=== PATIENT | male | born 1965 | race Caucasian/White ===

== ENCOUNTER 2023-09-04 07:12 | Emergency (ER) | payer MEDICARE, MEDICAID, SELFPAY ==
[2023-09-04 07:14] VITALS: BP 162/119; PULSE 88; RESP 20; TEMP 35.5; O2SAT 95; BMI 42.3
--- NOTE | 2023-09-04 07:26 | EKG12_ITS ---
Test Reason : HIGH SUGAR Blood Pressure : / mmHG Vent. Rate : 085 BPM Atrial Rate : 085 BPM P-R Int : 218 ms QRS Dur : 156 ms QT Int : 416 ms P-R-T Axes : 039 125 021 degrees QTc Int : 495 ms Sinus rhythm with 1st degree A-V block Left bundle branch block Abnormal ECG Confirmed by KUMAR ALONSO, AL ([id number]), purchase request editor HOMA CUEVA ([id number]) on 09/07/2023 1:32:41 P M Referred By: Confirmed By:ERIBERTO HEATH MD
--- NOTE | 2023-09-04 07:27 | EX.ED.DYSGE1 ---
HPI History of Present Illness Chief Complaint: Hyperglycemia Narrative Narrative: 58-year-old male past medical history hypertension, states no one told me I was diabetic presents with elevated blood sugars for the last few weeks to months. He states that he was seen by his primary care provider at [facility] in the internal medicine center, and was supposed to be starting metformin. Over the last few months he is experienced blurry vision, urinary frequency, and he took his blood sugars which were elevated over 500 yesterday and over 400 this morning without eating. He states he started to take his metformin 500 mg within the last week. He is concerned regarding the elevated blood sugars. Denies any fevers or chills, no nausea or vomiting, no other symptoms. This is with exception of upper respiratory infection type symptoms that has had over the last week, and is on doxycycline for this. He did state that over the last few days because he thought he was getting sick, he drank orange juice and large amounts. PFSH PFSH Home Medications aspirin 325 mg tablet 325 mg PO DAILY@0800 10/15/14 [History Last Taken Unknown] levothyroxine 125 mcg tablet 125 mcg PO DAILY 10/15/14 [History Last Taken Unknown] metoprolol tartrate 50 mg tablet 50 mg PO DAILY 10/15/14 [History Last Taken Unknown] doxycycline hyclate 100 mg capsule 100 mg PO BID ##28 01/12/17 [Rx Last Taken Unknown] Allergy/AdvReac Type Severity Reaction Status Date / Time Sulfa (Sulfonamide Allergy Swelling Verified 09/04/23 07:13 Antibiotics) sulfamethoxazole Allergy Swelling Verified 09/04/23 07:13 [From Bactrim] trimethoprim [From Bactrim] Allergy Swelling Verified 09/04/23 07:13 Social History Smoking Status: Current every day smoker tobacco type: cigarettes ROS ROS ED ROS Narrative Constitutional: No fever, no chills. Elevated blood sugars. HEENT: No sore throat. No neck pain. No loss of vision. Positive blurry vision. No rhinorrhea. Cardiovascular: No chest pain. No palpitations. No pedal edema. Respiratory: No cough, no shortness of breath. Abdominal: No abdominal pain. No nausea. No vomiting. Genitourinary: No dysuria. No hematuria. Ported microscopic hematuria from urgent care. Positive urinary frequency. Musculoskeletal: No myalgias. No arthralgias. Neurologic: No headaches. No dizziness. No lightheadedness. Skin: No rash. No change in color. Psychiatric: No depression. No anxiety. EXAM Physical Exam Narrative Exam Narrative: Afebrile. Vital signs noted. HEENT: Normocephalic. Atraumatic. PERRL, EOMI. Neck soft and supple. No point tenderness or step off. Cardiovascular: Regular rate and rhythm. No murmurs, rubs, or gallops appreciated. Respiratory: No tachypnea. Lungs clear to auscultation bilaterally. Gastrointestinal: Abdomen soft, pes, nontender, with normoactive bowel sounds. No rebound or guarding. Neurological: Awake. Alert. Nonfocal, nonlateralizing. Skin: No rash. Normal color. No pallor. Musculoskeletal: No pedal edema. Full range of motion extremities. Const Vital Signs: 09/04/23 07:14 09/04/23 07:50 Temperature 96 F L Temperature Source Temporal Pulse Rate 88 Respiratory Rate 20 H Respiratory Pattern Normal Blood Pressure 162/119 H Blood Pressure Mean 133 Pulse Ox 95 Oxygen Delivery Method Room Air MDM MDM MDM Narrative Medical decision making narrative: In the reported elevated blood sugar, concern would be for diabetic hyperglycemia, HON K, diabetic ketoacidosis. Patient did relate history that he states that he had cold-like symptoms and has been drinking a lot of orange juice and sugary sodas. Patient will be bolused 2 L of normal saline intravenously after BGT checked. I will obtain a CBC, CMP, and acetone levels to help rule out diabetic ketoacidosis. He is currently not tachycardic. He was told not to drink juices and sodas and that he will require follow-up with his primary care provider. He may need to increase his metformin, but already he has shown noncompliance with medication regime as he states that his medications were prescribed months ago. I reviewed his laboratory work and he has normal white count 7.8, hemoglobin normal at 16.2 with hematocrit 46.1, platelet count normal at 226. His sodium is low at 131 with chloride 95, he was bolused 2 L. However I do feel that his sodium may be lowered secondary to his elevated glucose on his CMP as it is elevated at 503. He has a normal anion gap of 9 so I have low concern for diabetic ketoacidosis, this is in combination with the fact that his acetone level is negative. His LFTs are grossly unremarkable. Urinalysis shows no evidence of infection so I do not feel antibiotics are indicated. There are negative ketones. There is glucose consistent with diabetes. After 2 L of normal saline, his blood sugar is now in the 370's. I do feel that with diet modification and continued metformin, that he can follow-up with his primary care provider. He states he has an appointment next week. At this point in time, I do not feel he requires admission. He was strongly encouraged to take his medications. Return instructions to the emergency department were reviewed. Disposition is discharged home in stable condition. History & Record Review Discussion w/independent historian: Patient Additional record(s) reviewed:: Prior ED visit Lab Data Attestation: I reviewed the patient's lab results. Labs: Laboratory Results - last 24 hr 09/04/23 09/04/23 07:38 07:45 WBC 7.8 RBC 5.10 Hgb 16.2 Hct 46.1 MCV 90.4 MCH 31.8 MCHC 35.1 RDW Std Deviation 37.6 RDW Coeff of Amanda 11.4 L Plt Count 226 MPV 10.7 Immature Gran % (Auto) 0.400 Neut % (Auto) 49.9 Lymph % (Auto) 34.0 Fannin % (Auto) 8.1 Eos % (Auto) 7.2 H Baso % (Auto) 0.4 Absolute Neuts (auto) 3.9 Absolute Lymphs (auto) 2.66 Nucleated RBC % 0 Sodium 131 L Potassium 4.1 Chloride 95 L Carbon Dioxide 27.0 Anion Gap 9 BUN 12 Creatinine 1.12 Estim Creat Clear Calc 67.86 Est GFR (MDRD) Af Amer 86 Est GFR (MDRD) Non-Af 71 BUN/Creatinine Ratio 10.7 Glucose 503 H* Calcium 8.9 Total Bilirubin 0.20 AST 20 ALT 38 Alkaline Phosphatase 78 Total Protein 7.0 Albumin 3.1 L Globulin 3.9 Albumin/Globulin Ratio 0.8 L Urine Color Yellow Urine Clarity Clear Urine pH 7.0 Ur Specific [place] 1.010 Urine Protein 30 H Urine Glucose (UA) 1000 H Urine Ketones Negative Urine Occult Blood 10 H Urine Nitrite Negative Urine Bilirubin Negative Urine Urobilinogen Normal Ur Leukocyte Esterase Negative Urine RBC 0 SEEN Urine WBC 0 SEEN Ur Squamous Epith Cells 0 SEEN Urine Bacteria 0 SEEN Urine Mucus 0 SEEN Acetone Level NEGATIVE Discharge Plan Triage Chief Complaint: Hyperglycemia ED Provider: Bean Kwon Dx/Rx/DC Orders Clinical Impression: Hyperglycemia, Diabetes Instructions: ED Diabetes- Overview, ED Diabetic Hyperglycemia, ED Diet: Diabetes Prescriptions: No Action aspirin 325 MG tablet 325 mg PO DAILY@0800 levothyroxine 125 MCG tablet 125 mcg PO DAILY metoprolol tartrate 50 MG tablet 50 mg PO DAILY doxycycline hyclate 100 MG capsule 100 mg PO BID Qty: 28 0RF Primary Care Provider: CARLTON COLEY Referrals: NOT,DEFINED [Non-Staff] - Activity Restrictions/Additional Instructions: Make sure you are taking your metformin 500 mg twice daily as previously directed. Follow-up with your primary care provider next week as scheduled. Disposition Disposition: Home, Self Care
[2023-09-04 07:45] LABS: Bacteria 0 SEEN /hpf (None Seen); Mucous, Urine 0 SEEN /hpf (<or=2+); Red Blood Cells-Urine 0 SEEN /hpf (0-5); Squamous Epithelial Cells - UA 0 SEEN /hpf (0-5); White Blood Cells 0 SEEN /hpf (0-5)
[2023-09-04] MEDS: 0.9% Normal Saline (1000mL) 1,000 ML 999 ML IV ×2 (07:46→08:31)
[2023-09-04 07:55] LABS: Color, Urine Yellow (Yellow); Glucose, Dipstick 1000 mg/dl (Normal); Ketone-Dipstick Negative (Negative); Leukocyte Esterase-Dipstick Negative /ul (Negative); Nitrite-Dipstick Negative (Negative); Occult Blood-Urine 10 /ul (Negative); Protein-Dipstick 30 mg/dl (Negative); Urine Bilirubin Dipstick Negative (Negative); Urine Clarity Clear (Clear); Urine Urobilinogen Normal (Normal)
[2023-09-04 08:00] LABS: Absolute Lymphocyte Count 2.66 X10^3/uL (0.83-4.51); Absolute Neutrophil Count 3.9 X10^3/uL (2.0-7.7); Basophil# 0.03 X10^3/uL; Basophil% 0.4 % (0-1); Eosinophil# 0.56 X10^3/uL; Eosinophils% 7.2 % (0-5); Hematocrit 46.1 % (40-54); Hemoglobin 16.2 g/dL (13.0-16.5); Lymphocyte # 2.66 X10^3/ul (0.83-4.51); Mean Corp Hgb Conc 35.1 g/dL (32-36); Mean Corpuscular Hgb 31.8 pg (27.0-32.0); Mean Corpuscular Volume 90.4 fL (80-94); Mean Platelet Vol. 10.7 fl (6.2-12.0); Monocyte# 0.63 X10^3/uL; Monocyte% 8.1 % (0-10); NRBC Flagged by Analyzer 0 % (0-5); Neutrophil # 3.91 X10^3/uL (2.7-7.7); Neutrophil % 49.9 % (47-70); Platelet Count 226 K/mm3 (150-450); RBC Distribution Width CV 11.4 % (11.6-14.6); RBC Distribution Width SD 37.6 fl (35.1-43.9); White Blood Count 7.8 K/mm3 (4.4-11.0)
[2023-09-04 08:16] LABS: ALB/GLOB Ratio 0.8 RATIO (0.9-2.4); AST(SGOT) 20 U/L (15-37); Alanine Aminotransfer ALT/SGPT 38 U/L (16-61); Albumin, Serum 3.1 g/dL (3.2-5.0); Alkaline Phosphatase 78 U/L (45-117); Anion Gap 9 (5-15); BUN 12 mg/dL (7-18); BUN/Creat Ratio 10.7 RATIO (10-20); Calcium,Total 8.9 mg/dL (8.5-10.1); Chloride 95 mmol/L (98-107); Creatinine, Serum 1.12 mg/dL (0.70-1.30); EST Glomerular Filtration Rate 71 mL/min (>60); Est Glom Filt Rate - Afr Amer 86 mL/min (>60); Estimated Creatinine Clearance 67.86 ml/min; Globulin 3.9 g/dL (2.2-4.2); Glucose 503 mg/dL (74-106); Potassium 4.1 mmol/L (3.5-5.1); Sodium Level 131 mmol/L (136-145)
[2023-09-04 10:02] LABS: Bedside Glucose 373 mg/dL (74-106)
== END 2023-09-04 09:51 | disposition home or self-care (01) ==
PROVIDERS: Emergency Provider Emergency Medicine; Visit Provider Emergency Medicine
DX: E11.65 Type 2 diabetes mellitus with hyperglycemia (principal); F17.210 Nicotine dependence, cigarettes, uncomplicated; I10 Essential (primary) hypertension
CPT/HCPCS: 80053; 81001; 82009; 82962; 85025; 93005; 96360; 99283; J7030; A4216

== ENCOUNTER 2024-08-31 08:35 | Emergency (ER) | payer MEDICARE, MEDICAID, SELFPAY ==
[2024-08-31] VITALS (8 sets, daily range): BP systolic 134–201; BP diastolic 76–129; PULSE 67–89; RESP 16–20; TEMP 36.6–37.2; O2SAT 89–99; BMI 43.6
--- NOTE | 2024-08-31 08:46 | EKG12_ITS ---
Test Reason : Blood Pressure : */* mmHG Vent. Rate : 79 BPM Atrial Rate : 79 BPM P-R Int : 256 ms QRS Dur : 150 ms QT Int : 426 ms P-R-T Axes : 62 14 137 degrees QTcB Int : 488 ms Sinus rhythm with 1st degree A-V block Left bundle branch block Abnormal ECG Confirmed by KUMAR ALONSO, AL ([id number]), editor book HOMA CUEVA ([id number]) on 09/07/2024 2:00:19 P M Referred By: Confirmed By: AL HEATH MD
--- NOTE | 2024-08-31 08:50 | EX.ED.DYSGE1 ---
HPI History of Present Illness Chief Complaint: Shortness of Breath Detail of Chief Complaint: Nonproductive cough, shortness of breath no better after Z-Montrell Informant: patient Onset/Context/Timing Onset: Days (August 23) Context: Sudden Onset Timing: Continuous and Waxes and wanes Quality: Dyspnea, dyspnea on exertion, nonproductive cough and wheezing Location: Respiratory Current Severity: Mild Maximum Severity: Moderate Worsened by: Activity Relieved by: Nothing Associated Symptoms Associated Symptoms: No fever or chills. And see HPI narrative Narrative Narrative: Patient is a 59-year-old male. He has history of type 2 diabetes on insulin, hypertension and hypothyroidism. He completed a course of azithromycin 2 days ago. He presents because he is no better. He is a smoker 1/2 pack/day. He has smoked for years. He states there was a 5-year period where he did not smoke. He states he was recently admitted to [facility] for congestive heart failure. He had a 4-day stay. He apparently has obstructive sleep apnea but has not gotten the machine yet. He states he is able to lie flat in bed. He sleeps with 1 pillow. He denies swelling of his feet or ankles. He denies fever, chills night sweats. He was treated at urgent care in [place]. They diagnosed him with bronchitis. His cough is nonproductive.He denies nasal congestion, postnasal drainage sore throat. He denies history of VTE. Denies leg pain, swelling discoloration. He denies pleuritic chest pain. He denies pain with breathing. He denies abdominal distention, nausea, vomiting or diarrhea. He denies dysuria, frequency, urgency or hematuria. Prior similar symptoms: Yes Recent Illness/Hospitalization: Yes [facility] Medical History (Updated 08/31/24 @ 12:[address] Terry Gould MD) Congestive heart failure (CHF) BMI greater than 40 Obstructive sleep apnea Hypertension Type 2 diabetes mellitus with insulin therapy Home Medications ?Medication ?Instructions ?Recorded ?Last Taken ?Type aspirin 325 mg tablet 325 mg PO DAILY@0800 10/15/14 Unknown History levothyroxine 125 mcg tablet 125 mcg PO DAILY 10/15/14 Unknown History metoprolol tartrate 50 mg tablet 50 mg PO DAILY 10/15/14 Unknown History doxycycline hyclate 100 mg capsule 100 mg PO BID ##28 01/12/17 Unknown Rx albuterol sulfate 90 mcg/actuation 2 puff inhalation Q4H PRN PRN 08/31/24 Unknown Rx aerosol inhaler (Ventolin HFA) Wheezing ##1 prednisone 20 mg tablet 60 mg (3 x 20 mg) PO DAILY #15 08/31/24 Unknown Rx TABLETS Allergy/AdvReac Type Severity Reaction Status Date / Time Sulfa (Sulfonamide Allergy Swelling Verified 08/31/24 08:35 Antibiotics) sulfamethoxazole (From Allergy Swelling Verified 08/31/24 08:35 Bactrim) trimethoprim (From Bactrim) Allergy Swelling Verified 08/31/24 08:35 Social History (Updated 08/31/24 @ 08:[address] Terry Gould MD) household members: none Smoking Status: Current every day smoker tobacco type: cigarettes ROS ROS ED Constitutional Constitutional ED: Denies chills, fever(s), subjective, sweats or weight loss Eyes Eyes: Denies blurry vision, change in vision or diplopia ENT ENT ED: Denies ear pain, rhinorrhea or sore throat Cardiovascular Cardiovascular: Denies chest pain, orthopnea, palpitations, paroxysmal nocturnal dyspnea or racing heartbeat Respiratory/Chest Respiratory/Chest: Reports cough, dyspnea and dyspnea on exertion; Denies orthopnea, paroxysmal nocturnal dyspnea or sputum Gastrointestinal Gastrointestinal: Denies abdominal pain, diarrhea, melena, nausea or vomiting Genitourinary Genitourinary ED: Reports other Details: Does endorse nocturia. Uncertain if he has a history of BPH. ; Denies dysuria or urinary frequency Musculoskeletal Musculoskeletal: Denies arthralgias or myalgias Integumentary Denies rash Neurologic Neurologic: Denies headache(s), paresthesias or weakness Endocrine Endocrinology: Denies cold intolerance, heat intolerance, polydipsia or polyuria Hematologic/Lymphatic Hematologic/Lymphatic: Denies systems reviewed and no addt'l complaints, except as documented EXAM Physical Exam Const Vital Signs: 08/31/24 08:36 08/31/24 08:40 08/31/24 08:55 Temperature 98.6 F Temperature Source Oral Pulse Rate 75 Pulse Rate [Lying] 67 Pulse Rate [Sitting (for 1 minute prior to obtaining)] 69 Pulse Rate [Standing (for 1 minute prior to obtaining)] 76 Respiratory Rate 20 H Respiratory Effort Normal Respiratory Depth Normal Respiratory Pattern Normal Blood Pressure 201/129 H Blood Pressure [Lying] 158/110 H Blood Pressure [Sitting (for 1 minute prior to obtaining)] 178/126 H Blood Pressure [Standing (for 1 minute prior to obtaining)] 163/104 H Blood Pressure Mean 153 Blood Pressure Mean [Lying] 126 Blood Pressure Mean [Sitting (for 1 minute prior to obtaining)] 143 Blood Pressure Mean [Standing (for 1 minute prior to obtaining)] 123 Pulse Ox 95 Oxygen Delivery Method Room Air 08/31/24 09:02 08/31/24 09:35 08/31/24 10:00 Temperature Temperature Source Pulse Rate 72 89 89 Pulse Rate [Lying] Pulse Rate [Sitting (for 1 minute prior to obtaining)] Pulse Rate [Standing (for 1 minute prior to obtaining)] Respiratory Rate 20 H 18 16 Respiratory Effort Respiratory Depth Respiratory Pattern Normal Blood Pressure 178/101 H 149/76 H Blood Pressure [Lying] Blood Pressure [Sitting (for 1 minute prior to obtaining)] Blood Pressure [Standing (for 1 minute prior to obtaining)] Blood Pressure Mean 126 100 Blood Pressure Mean [Lying] Blood Pressure Mean [Sitting (for 1 minute prior to obtaining)] Blood Pressure Mean [Standing (for 1 minute prior to obtaining)] Pulse Ox 98 98 Oxygen Delivery Method Room Air Room Air 08/31/24 11:00 08/31/24 12:00 Temperature 98.9 F Temperature Source Oral Pulse Rate 78 78 Pulse Rate [Lying] Pulse Rate [Sitting (for 1 minute prior to obtaining)] Pulse Rate [Standing (for 1 minute prior to obtaining)] Respiratory Rate 18 16 Respiratory Effort Respiratory Depth Respiratory Pattern Blood Pressure 169/78 H 134/78 H Blood Pressure [Lying] Blood Pressure [Sitting (for 1 minute prior to obtaining)] Blood Pressure [Standing (for 1 minute prior to obtaining)] Blood Pressure Mean 108 96 Blood Pressure Mean [Lying] Blood Pressure Mean [Sitting (for 1 minute prior to obtaining)] Blood Pressure Mean [Standing (for 1 minute prior to obtaining)] Pulse Ox 98 89 Oxygen Delivery Method Room Air Room Air Positive well nourished and well developed Constitutional Narrative: There is a entered the room patient was pacing. He seems slightly tachypneic. Question of audible wheezing. General Appearance ED: well developed; Negative for cyanotic, diaphoretic, NAD or pallor HEENT Reports moist mucous membranes HEENT Narrative: Head is atraumatic and normocephalic. Ears normal. Nares patent. Posterior pharynx is normal. Eyes PERRL and EOMs intact bilaterally General Eye ED: Negative for pale conjunctiva or scleral icterus Neck no lymphadenopathy, supple and no JVD Neck Narrative: Neck exam is limited due to body habitus. Chest Wall inspection of chest normal and palpation of chest normal Resp normal respiratory effort and No clear to auscultation bilaterally Resp Narrative: There is increased expiratory phase and decreased air movement noted throughout. Auscultation: wheezes expiratory wheezes and throughout Cardio regular rate, regular rhythm, S1 normal heart sound, S2 normal heart sound and no murmurs GI normal to inspection, nondistended, normoactive bowel sounds, non-tender, non-distended and no masses; Negative for hepatosplenomegaly GI Narrative: Abdominal exam is limited due to body habitus. Back/Spine no CVA tenderness Extremity normal to inspection Extremity Narrative: There is no swelling, discoloration, asymmetry, leg vein distention, palpable cords tenderness on the distribution of the deep venous system. General Extremety ED: Negative for edema or tenderness General Extremity: Negative for edema Neuro oriented x3, CN's II-XII intact bilaterally and no sensory deficits noted Neuro Narrative: Gait observed and normal. Sensorium / Orientation: alert Motor Exam: strength 5/5 throughout Psych mental status grossly normal Skin no rashes or lesions noted, no wounds and skin turgor normal General Skin Exam: elasticity normal; Negative for jaundice or pallor MDM MDM MDM Narrative Medical decision making narrative: With elevated blood pressure need to consider dyspnea due to heart failure due to high afterload, exacerbation of congestive heart failure, pneumonia, undiagnosed COPD with bronchospasm. With patient complaining of nocturia need to consider possibility of BPH also hyperglycemia. Prior records were reviewed. Patient was last seen June 05, 2023 for elevated blood sugar. He was not in DKA at that time. Suspect his wheezing is due to pulmonary cause. He was treated with DuoNeb and Atrovent aerosols. Since he is diabetic and has issues with control he was not initially given systemic steroids. History & Record Review Additional record(s) reviewed:: Prior inpatient record (Hospitalization [facility] for CHF.), Prior ED visit and Prior labs Lab Data Attestation: I reviewed the patient's lab results. Lab results narrative: CBC is unremarkable. Hemoglobin slightly elevated 17.8. Indices are normal. Differential reveals a lymphocytosis. This would suggest a viral illness. Creatinine slightly elevated 1.35 with a estimated GFR of 57. Glucose is elevated 182. CO2 and anion gap are normal. Transaminases are unremarkable. BNP is slightly elevated 124. Labs: Laboratory Results - last 24 hr 08/31/24 08/31/24 08:53 08:54 WBC 9.7 RBC 5.66 Hgb 17.8 H Hct 52.9 MCV 93.5 MCH 31.4 MCHC 33.6 RDW Std Deviation 42.4 RDW Coeff of Amanda 12.3 Plt Count 255 MPV 9.9 Immature Gran % (Auto) 0.400 Neut % (Auto) 37.3 L Lymph % (Auto) 44.4 H [place] % (Auto) 7.8 Eos % (Auto) 9.7 H Baso % (Auto) 0.4 Absolute Neuts (auto) 3.6 Absolute Lymphs (auto) 4.29 Nucleated RBC % 0 Sodium 138 Potassium 4.3 Chloride 105 Carbon Dioxide 27.0 Anion Gap 6 BUN 15 Creatinine 1.35 H Estim Creat Clear Calc 75.83 Est GFR (MDRD) Af Amer 69 Est GFR (MDRD) Non-Af 57 L BUN/Creatinine Ratio 11.1 Glucose 182 H Lactic Acid 1.6 Calcium 9.0 Total Bilirubin 0.30 AST 14 L ALT 25 Alkaline Phosphatase 63 Troponin I High Sens 24 B-Natriuretic Peptide 124.7 H Total Protein 7.3 Albumin 3.4 Globulin 3.9 Albumin/Globulin Ratio 0.9 POC Glucose 191 H Radiography Chest X-Ray - ED: 2 View and Read by ED Physician (Patient has normal cardiac silhouette and size. There is no obvious infiltrate. There appears to be atelectasis at the bases. Osseous structures are unremarkable.) Diagnostic Testing: Clinical Impression(s) from Imaging Studies Chest X-Ray 08/31/24 09:40 IMPRESSION: Mild basilar atelectasis or inflammation. Electronically Signed: Maria C Ballard MD at 9:56 EST , Treatment and Re-Evaluation :: Patient was informed of his lab results. His blood pressure is improved markedly. Will discharge with brief burst of prednisone and inhalers. Discharge Plan Triage Chief Complaint: Shortness of Breath ED Provider: Terry Gould Dx/Rx/DC Orders Clinical Impression: Acute bronchospasm, Type 2 diabetes mellitus with insulin therapy, Obstructive sleep apnea, Upper respiratory infection with cough and congestion, Viral infection, Elevated blood pressure reading with diagnosis of hypertension Instructions: ED URI, Viral, No Abx (Adult) Prescriptions: New prednisone 20 mg tablet 60 mg PO DAILY Qty: 15 0RF albuterol sulfate [Ventolin HFA] 90 mcg/actuation HFA aerosol inhaler 2 puff inhalation Q4H PRN PRN (Reason: Wheezing) Qty: 1 0RF No Action aspirin 325 MG tablet 325 mg PO DAILY@0800 levothyroxine 125 MCG tablet 125 mcg PO DAILY metoprolol tartrate 50 MG tablet 50 mg PO DAILY doxycycline hyclate 100 MG capsule 100 mg PO BID Qty: 28 0RF Primary Care Provider: Care Physician,No Primary Referrals: NOT,DEFINED [Non-Staff] - Print Language: Chadian Disposition Disposition: Home, Self Care
[2024-08-31] MEDS: Ipratropium/Albuterol Sulfate 3 ML AMPUL.NEB INHALATION (09:01)
[2024-08-31] MEDS: Albuterol 2.5 MG/3 ML VIAL.NEB. INHALATION ×3 (09:01→09:45)
[2024-08-31 09:06] LABS: Absolute Lymphocyte Count 4.29 X10^3/uL (0.83-4.51); Absolute Neutrophil Count 3.6 X10^3/uL (2.0-7.7); Basophil# 0.04 X10^3/uL; Basophil% 0.4 % (0-1); Eosinophil# 0.94 X10^3/uL; Eosinophils% 9.7 % (0-5); Hematocrit 52.9 % (40-54); Hemoglobin 17.8 g/dL (13.0-16.5); Lymphocyte # 4.29 X10^3/ul (0.83-4.51); Lymphocyte % 44.4 % (19-41); Mean Corp Hgb Conc 33.6 g/dL (32-36); Mean Corpuscular Hgb 31.4 pg (27.0-32.0); Mean Corpuscular Volume 93.5 fL (80-94); Mean Platelet Vol. 9.9 fl (6.2-12.0); Monocyte# 0.75 X10^3/uL; Monocyte% 7.8 % (0-10); NRBC Flagged by Analyzer 0 % (0-5); Neutrophil % 37.3 % (47-70); Platelet Count 255 K/mm3 (150-450); RBC Distribution Width CV 12.3 % (11.6-14.6); RBC Distribution Width SD 42.4 fl (35.1-43.9); Red Blood Count 5.66 M/mm3 (4.6-6.2); White Blood Count 9.7 K/mm3 (4.4-11.0)
[2024-08-31 09:19] LABS: Bedside Glucose 191 mg/dL (74-106)
[2024-08-31 09:36] LABS: ALB/GLOB Ratio 0.9 RATIO (0.9-2.4); AST(SGOT) 14 U/L (15-37); Alanine Aminotransfer ALT/SGPT 25 U/L (16-61); Albumin, Serum 3.4 g/dL (3.2-5.0); Alkaline Phosphatase 63 U/L (45-117); Anion Gap 6 (5-15); BUN 15 mg/dL (7-18); BUN/Creat Ratio 11.1 RATIO (10-20); Chloride 105 mmol/L (98-107); Creatinine, Serum 1.35 mg/dL (0.70-1.30); EST Glomerular Filtration Rate 57 mL/min (>60); Est Glom Filt Rate - Afr Amer 69 mL/min (>60); Estimated Creatinine Clearance 75.83 ml/min; Globulin 3.9 g/dL (2.2-4.2); Glucose 182 mg/dL (74-106); Potassium 4.3 mmol/L (3.5-5.1); Protein, Total 7.3 g/dL (6.4-8.2); Sodium Level 138 mmol/L (136-145); Troponin-I HS 24 pg/mL (3.0-78.0)
--- NOTE | 2024-08-31 09:40 | RAD_ITS ---
HISTORY: Shortness of breath, nonproductive cough, wheezing. TECHNIQUE: XR Chest 2 Views. COMPARISON: 01/27/2012. FINDINGS: CARDIOMEDIASTINAL BORDERS: Mediastinal contour unremarkable with calcification of the aortic knob. Cardiac silhouette within normal limits in size. LUNGS: Mild linear opacities in the mid to lower lungs. PLEURA: No pleural effusion or pneumothorax seen. OSSEOUS STRUCTURES: Chronic right lateral eighth rib fracture. RAD/Chest PA and Lateral IMPRESSION: Mild basilar atelectasis or inflammation. Electronically Signed: Maria C Ballard MD at 9:56 EST ,
[2024-08-31 09:55] LABS: Lactic Acid 1.6 mmol/L (0.4-1.9)
[2024-08-31 11:41] LABS: BNP,B-Type NATRIURETIC PEPTIDE 124.7 pg/mL (0-100)
== END 2024-08-31 12:47 | disposition home or self-care (01) ==
PROVIDERS: Emergency Provider Emergency Medicine; Visit Provider Emergency Medicine
DX: J98.01 Acute bronchospasm (principal); E11.9 Type 2 diabetes mellitus without complications; B34.9 Viral infection, unspecified; F17.210 Nicotine dependence, cigarettes, uncomplicated; G47.33 Obstructive sleep apnea (adult) (pediatric); J06.9 Acute upper respiratory infection, unspecified; Z79.82 Long term (current) use of aspirin; R03.0 Elevated blood-pressure reading, without diagnosis of hypertension; R05.9 Cough, unspecified; I44.0 Atrioventricular block, first degree; E03.9 Hypothyroidism, unspecified
CPT/HCPCS: 71046; 80053; 82962; 83605; 83880; 84484; 85025; 87631; 93005; 94640; 99285; A4216

== ENCOUNTER 2024-12-23 00:38 | Emergency (ER) | payer MEDICARE, MEDICAID, SELFPAY ==
[2024-12-23 00:40] VITALS: BP 152/108; PULSE 88; RESP 20; TEMP 36.6; O2SAT 94; BMI 47.9
[2024-12-23 00:46] VITALS: BP 152/108; PULSE 86; RESP 17; TEMP 36.4; O2SAT 94
[2024-12-23 00:51] VITALS: O2SAT 97
--- NOTE | 2024-12-23 01:32 | CT_ITS ---
PROCEDURE: BRAIN/HEAD WITHOUT CONTRAST 12/23/2024 REASON FOR EXAM: HEAD INJURY TECHNIQUE: Head CT without intravenous contrast. Coronal and Sagittal reconstruction series were provided. One or more dose reduction techniques were used (e.g., Automated exposure control, adjustment of the mA and/or kV according to patient size, use of iterative reconstruction technique. RADIATION DOSE SUMMARY: CTDlvol: 44.99 mGy DLP: 796.11 mGycm COMPARISON: None available FINDINGS: No intracranial hemorrhage, mass effect or calvarial fracture. Left frontal forehead scalp soft tissue swelling. The ventricles are within limits and midline. Likely partially imaged mucous retention cyst inferior left maxillary sinus. Frontal, ethmoid and sphenoid mild sinus mucoperiosteal thickening, sinus disease. Likely old nasal bone fracture deformity without overlying soft tissue swelling, clinically correlate. Rightward bowing of the nasal septum. Mastoids and orbits appear within limits. Bilateral mandibular condyles appear anteriorly subluxed in relation to the joint for example sagittal 20 and 61 may represent mouth positioning at the time of the scan, clinically correlate. CT/Brain/Head without Contrast IMPRESSION: No intracranial hemorrhage, mass effect or calvarial fracture. Left frontal forehead scalp soft tissue swelling. Bilateral mandibular condyles appear anteriorly subluxed in relation to the raquel nt for example sagittal 20 and 61 may represent mouth positioning at the time of the scan, clinically correlate. Likely old nasal bone fracture deformity without overlying soft tissue swelling , clinically correlate. Rightward bowing of the nasal septum. Mild paranasal sinus disease as above. Reading Location: [id number]
[2024-12-23 01:42] LABS: Absolute Lymphocyte Count 3.67 X10^3/uL (0.83-4.51); Absolute Neutrophil Count 4.6 X10^3/uL (2.0-7.7); Basophil# 0.04 X10^3/uL; Basophil% 0.4 % (0-1); Eosinophil# 0.59 X10^3/uL; Eosinophils% 5.9 % (0-5); Hematocrit 53.1 % (40-54); Hemoglobin 17.3 g/dL (13.0-16.5); Lymphocyte # 3.67 X10^3/ul (0.83-4.51); Lymphocyte % 36.5 % (19-41); Mean Corp Hgb Conc 32.6 g/dL (32-36); Mean Corpuscular Volume 92.2 fL (80-94); Mean Platelet Vol. 10.6 fl (6.2-12.0); Monocyte# 1.08 X10^3/uL; Monocyte% 10.7 % (0-10); NRBC Flagged by Analyzer 0 % (0-5); Neutrophil # 4.63 X10^3/uL (2.7-7.7); Neutrophil % 46.1 % (47-70); Platelet Count 223 K/mm3 (150-450); RBC Distribution Width CV 13.3 % (11.6-14.6); RBC Distribution Width SD 44.8 fl (35.1-43.9); Red Blood Count 5.76 M/mm3 (4.6-6.2); White Blood Count 10.1 K/mm3 (4.4-11.0)
[2024-12-23 02:13] VITALS: BP 127/100; PULSE 82; RESP 16; TEMP 36.7; O2SAT 95
[2024-12-23 02:32] LABS: Anion Gap 12 (5-15); BUN 22 mg/dL (4-19); BUN/Creat Ratio 16.3 RATIO (10-20); Calcium,Total 9.1 mg/dL (7.6-11.0); Carbon Dioxide 26.6 mmol/L (21.0-32.0); Chloride 100 mmol/L (98-108); Creatinine, Serum 1.32 mg/dL (0.70-1.20); EST Glomerular Filtration Rate 61 (>60); Estimated Creatinine Clearance 81.66 ml/min (50-250); Glucose 218 mg/dL (70-99); Potassium 3.9 mmol/L (3.3-5.1); Pro- Brain NATRIURETIC PEPTIDE 2826 pg/mL (<=900); Sodium Level 138 mmol/L (133-145)
--- NOTE | 2024-12-23 03:00 | EX.ED.DYSGE1 ---
HPI History of Present Illness Chief Complaint: Fall Informant: patient Narrative Narrative: Patient is a 59-year-old male with past medical history of insulin-dependent type 2 diabetes hypertension ELBERT and CHF. He reports that he moves around when he sleeps. He states that he did this the other night and fell out of bed striking his head. He states that he went about his day and did his job not thinking much of this but noted he had a headache. He states he drove here to be evaluated after finishing his job but felt fatigued and therefore fell asleep in his car and slept until approximately midnight. He states that on top of the head trauma and fatigue he has noticed redness across to his abdomen and he notes white spots within his mouth. He also feels like his legs are more swollen than normal and with these multiple complaints presents for evaluation [facility] Medical History (Updated 12/23/24 @ 07:[address] Salty Werner, DO) Congestive heart failure (CHF) BMI greater than 40 Obstructive sleep apnea Hypertension Type 2 diabetes mellitus with insulin therapy Home Medications ?Medication ?Instructions ?Recorded ?Last Taken ?Type aspirin 325 mg tablet 325 mg PO DAILY@0800 10/15/14 Unknown History levothyroxine 125 mcg tablet 125 mcg PO DAILY 10/15/14 Unknown History metoprolol tartrate 50 mg tablet 50 mg PO DAILY 10/15/14 Unknown History doxycycline hyclate 100 mg capsule 100 mg PO BID ##28 01/12/17 Unknown Rx albuterol sulfate 90 mcg/actuation 2 puff inhalation Q4H PRN PRN 08/31/24 Unknown Rx aerosol inhaler (Ventolin HFA) Wheezing ##1 prednisone 20 mg tablet 60 mg (3 x 20 mg) PO DAILY #15 08/31/24 Unknown Rx TABLETS clindamycin HCl 300 mg capsule 300 mg PO 4X/DAY 10 days #40 12/23/24 Unknown Rx (Cleocin HCl) CAPSULES furosemide 20 mg tablet (Lasix) 20 mg PO DAILY 30 days #30 tabs 12/23/24 Unknown Rx nystatin 100,000 unit/mL oral 5 ml PO 4X/DAY 14 days #280 mL 12/23/24 Unknown Rx suspension Allergy/AdvReac Type Severity Reaction Status Date / Time Sulfa (Sulfonamide Allergy Swelling Verified 12/23/24 00:40 Antibiotics) sulfamethoxazole (From Allergy Swelling Verified 12/23/24 00:40 Bactrim) trimethoprim (From Bactrim) Allergy Swelling Verified 12/23/24 00:40 prednisone AdvReac Intermediate Swelling Verified 12/23/24 00:40 Social History (Updated 08/31/24 @ 08:[address] eTrry Gould MD) household members: none Smoking Status: Current every day smoker tobacco type: cigarettes ROS ROS ED Constitutional Constitutional ED: Reports other Details: Positive fatigue ; Denies chills or fever(s) Eyes Eyes: Denies change in vision ENT ENT ED: Reports sore throat and other Details: Positive oral lesions Cardiovascular Cardiovascular: Denies chest pain, palpitations or racing heartbeat Respiratory/Chest Respiratory/Chest: Denies cough or dyspnea Gastrointestinal Gastrointestinal: Denies abdominal pain, diarrhea, nausea or vomiting Genitourinary Genitourinary ED: Denies dysuria Musculoskeletal Musculoskeletal: Reports other Details: Positive leg swelling ; Denies myalgias Integumentary Reports rash and other Details: Positive redness to the abdominal wall Neurologic Neurologic: Reports headache(s) Hematologic/Lymphatic Hematologic/Lymphatic: Denies easy bleeding or easy bruising Allergic/Immunologic Allergic/Immunologic ED: Denies mouth swelling or tongue swelling EXAM Physical Exam Const Vital Signs: 12/23/24 00:40 12/23/24 00:46 12/23/24 00:46 Temperature 97.8 F 97.6 F L Temperature Source Oral Oral Pulse Rate 88 86 Respiratory Rate 20 H 17 Respiratory Effort Short of Breath Respiratory Depth Shallow Respiratory Pattern Normal Blood Pressure 152/108 H 152/108 H Blood Pressure Mean 122 122 Pulse Ox 94 94 94 Oxygen Delivery Method Room Air Room Air Room Air 12/23/24 00:51 12/23/24 02:13 12/23/24 03:19 Temperature 98.1 F 98.5 F Temperature Source Oral Pulse Rate 82 78 Respiratory Rate 16 22 H Respiratory Effort Labored Respiratory Depth Shallow Respiratory Pattern Tachypnea Blood Pressure 127/100 H 120/86 H Blood Pressure Mean 109 97 Pulse Ox 95 90 Oxygen Delivery Method Room Air Room Air Positive well nourished, well developed and obese General Appearance ED: well developed Nutritional Appearance: obese HEENT HEENT Narrative: There are white scrappable lesions across the patient's tongue and buccal mucosa most consistent with thrush No tongue or lip swelling; no airway edema or compromise Patient has a 1 x 2 cm hematoma along the left frontal portion of the scalp consistent with head trauma. No signs of depressed or basilar skull fracture Eyes PERRL and EOMs intact bilaterally General Eye ED: Negative for scleral icterus Neck supple Neck Narrative: No bony deformity or step-off of the cervical spine no midline tenderness to palpation Chest Wall palpation of chest normal Resp normal respiratory effort and clear to auscultation bilaterally Resp Narrative: Breath sounds are diminished throughout but overall clear to auscultation without signs of respiratory distress No crackles noted Cardio regular rate and regular rhythm GI normal to inspection, nondistended, normoactive bowel sounds, non-tender, non-distended and no masses GI Narrative: Soft and nondistended with normal active bowel sounds No voluntary guarding or rigidity or pulsatile mass No fluid wave noted Auscultation: normoactive bowel sounds Palpation: soft Extremity Extremity Narrative: +2 pitting edema to the bilateral lower extremities that is equal and symmetric Negative Homans' sign bilaterally Neuro oriented x3, CN's II-XII intact bilaterally and no sensory deficits noted Sensorium / Orientation: alert Motor Exam: strength 5/5 throughout Psych Mood & Affect: anxious Skin Skin Narrative: Blanchable diffuse erythema across the anterior abdomen consistent with cellulitis that is warm to touch as well No obvious abscess formation. No lymphangitic streaking. MDM MDM MDM Narrative Medical decision making narrative: Patient presented to the ER hypertensive but has a past medical history of this and otherwise stable vitals. He reported falling out of bed causing facial/head trauma and now feels fatigued and nauseated. Symptoms are most consistent with concussion. However in order to rule out skull fracture or traumatic subarachnoid or subdural hemorrhage a CT was obtained. By physical exam patient has thrush but there are no signs of airway compromise or secondary infection such as peritonsillar abscess or epiglottitis so do not feel the need for a CT scan of the neck. He does also have soft tissue changes across his abdomen most consistent with abdominal wall cellulitis. Basic blood work was obtained and shows no leukocytosis or left shift going against signs of systemic infection and therefore there is no need for admission for IV antibiotics. Patient has swelling of his legs with does have history of congestive heart failure and his proBNP is elevated consistent with this. However he does not have orthopnea and is satting in the mid 90s on room air and therefore I feel there is no need for intervention other than oral diuretics. Therefore at this time patient does not have signs of sepsis he is not in respiratory distress or failure he does not have skull fracture or traumatic subarachnoid or subdural hemorrhage. He be placed on symptomatic medications and is otherwise safe for discharge History & Record Review Discussion w/independent historian: Patient Lab Data Attestation: I reviewed the patient's lab results. Labs: Laboratory Results - last 24 hr 12/23/24 00:50 WBC 10.1 RBC 5.76 Hgb 17.3 H Hct 53.1 MCV 92.2 MCH 30.0 MCHC 32.6 RDW Std Deviation 44.8 H RDW Coeff of Amanda 13.3 Plt Count 223 MPV 10.6 Immature Gran % (Auto) 0.400 Neut % (Auto) 46.1 L Lymph % (Auto) 36.5 [place] % (Auto) 10.7 H Eos % (Auto) 5.9 H Baso % (Auto) 0.4 Absolute Neuts (auto) 4.6 Absolute Lymphs (auto) 3.67 Nucleated RBC % 0 Sodium 138 Potassium 3.9 Chloride 100 Carbon Dioxide 26.6 Anion Gap 12 BUN 22 H Creatinine 1.32 H Estim Creat Clear Calc 81.66 Est GFR (MDRD) Non-Af 61 BUN/Creatinine Ratio 16.3 Glucose 218 H Calcium 9.1 NT pro BNP II 2826 H Radiography Diagnostic Testing: Clinical Impression(s) from Imaging Studies Brain CT 12/23/24 01:32 IMPRESSION: No intracranial hemorrhage, mass effect or calvarial fracture. Left frontal forehead scalp soft tissue swelling. Bilateral mandibular condyles appear anteriorly subluxed in relation to the joint for example sagittal 20 and 61 may represent mouth positioning at the time of the scan, clinically correlate. Likely old nasal bone fracture deformity without overlying soft tissue swelling, clinically correlate. Rightward bowing of the nasal septum. Mild paranasal sinus disease as above. Reading Location: [facility] Discharge Plan Triage Chief Complaint: Fall ED Provider: Salty Werner Dx/Rx/DC Orders Clinical Impression: Closed head injury, Hematoma of frontal scalp, Concussion, Abdominal wall cellulitis, Congestive heart failure, Oral thrush, Type 2 diabetes mellitus with insulin therapy, Hypertension Instructions: Cellulitis Dc, Concussion Dc, ED Heart Failure, Congestive (CHF) Prescriptions: New clindamycin HCl [Cleocin HCl] 300 mg capsule 300 mg PO 4X/DAY 10 Days Qty: 40 0RF nystatin 100,000 unit/mL suspension 5 ml PO 4X/DAY 14 Days Qty: 280 0RF Rx Instructions: Swish for 1 to 2 minutes then spit out medication furosemide [Lasix] 20 mg tablet 20 mg PO DAILY 30 Days Qty: 30 0RF No Action aspirin 325 MG tablet 325 mg PO DAILY@0800 levothyroxine 125 MCG tablet 125 mcg PO DAILY metoprolol tartrate 50 MG tablet 50 mg PO DAILY doxycycline hyclate 100 MG capsule 100 mg PO BID Qty: 28 0RF prednisone 20 mg tablet 60 mg PO DAILY Qty: 15 0RF albuterol sulfate [Ventolin HFA] 90 mcg/actuation HFA aerosol inhaler 2 puff inhalation Q4H PRN PRN (Reason: Wheezing) Qty: 1 0RF Primary Care Provider: Care Physician,No Primary Referrals: Nima Alvarado MD [Med Staff - Active Staff] - Care Physician,No Primary [Primary Care Provider] - Activity Restrictions/Additional Instructions: Please follow-up with your family doctor or Dr. Alvarado for repeat evaluation. Take the antibiotic as directed to resolve the soft tissue skin infection to your abdomen. Using nystatin to resolve your thrush and continue with the Lasix to help with your congestive heart failure symptoms. Return to the ER should you have any further concerns Print Language: [place] Disposition Disposition: Home, Self Care Discharge Date/Time: 12/23/24 03:19
[2024-12-23] MEDS: Clindamycin HCl 150 MG Capsule 300 MG PO (03:10)
[2024-12-23 03:19] VITALS: BP 120/86; PULSE 78; RESP 22; TEMP 36.9; O2SAT 90
== END 2024-12-23 03:19 | disposition home or self-care (01) ==
PROVIDERS: Emergency Provider Emergency Medicine; Visit Provider Emergency Medicine
DX: S06.0XAA Concussion with loss of consciousness status unknown, initial encounter (principal); I11.0 Hypertensive heart disease with heart failure; I50.9 Heart failure, unspecified; Z68.41 Body mass index [BMI] 40.0-44.9, adult; E11.9 Type 2 diabetes mellitus without complications; Z79.4 Long term (current) use of insulin; B37.0 Candidal stomatitis; S00.03XA Contusion of scalp, initial encounter; F17.210 Nicotine dependence, cigarettes, uncomplicated; L03.311 Cellulitis of abdominal wall; G47.33 Obstructive sleep apnea (adult) (pediatric); W06.XXXA Fall from bed, initial encounter; R53.83 Other fatigue; R06.02 Shortness of breath; E66.9 Obesity, unspecified
CPT/HCPCS: 70450; 80048; 83880; 85025; 99284; A4216

== ENCOUNTER 2025-01-05 21:02 | Emergency (ER) | payer OTHER, SELFPAY ==
[2025-01-05 21:04] VITALS: BP 157/105; PULSE 96; RESP 26; TEMP 36.2; O2SAT 100; BMI 46.2
--- NOTE | 2025-01-05 22:06 | EX.ED.DYSGE1 ---
HPI History of Present Illness Chief Complaint: General Illness Narrative Narrative: With history of continuous abdominal wall redness and itching. No fevers. No changes in soaps or detergents. Reports was here 2 weeks ago multiple issues including head injury. Prescribed antibiotic. No improvement. Started before medications. Diabetic on insulin. Sleep apnea. Does feel short of breath report history of asthma. Noted allergy prednisonecaused leg swelling. Prior similar symptoms: Yes [facility] Medical History Congestive heart failure (CHF) BMI greater than 40 Obstructive sleep apnea Hypertension Type 2 diabetes mellitus with insulin therapy Home Medications ?Medication ?Instructions ?Recorded ?Last Taken ?Type aspirin 325 mg tablet 325 mg PO DAILY@0800 10/15/14 Unknown History levothyroxine 125 mcg tablet 125 mcg PO DAILY 10/15/14 Unknown History metoprolol tartrate 50 mg tablet 50 mg PO DAILY 10/15/14 Unknown History doxycycline hyclate 100 mg capsule 100 mg PO BID ##28 01/12/17 Unknown Rx albuterol sulfate 90 mcg/actuation 2 puff inhalation Q4H PRN PRN 08/31/24 Unknown Rx aerosol inhaler (Ventolin HFA) Wheezing ##1 prednisone 20 mg tablet 60 mg (3 x 20 mg) PO DAILY #15 08/31/24 Unknown Rx TABLETS clindamycin HCl 300 mg capsule 300 mg PO 4X/DAY 10 days #40 12/23/24 Unknown Rx (Cleocin HCl) CAPSULES furosemide 20 mg tablet (Lasix) 20 mg PO DAILY 30 days #30 tabs 12/23/24 Unknown Rx nystatin 100,000 unit/mL oral 5 ml PO 4X/DAY 14 days #280 mL 12/23/24 Unknown Rx suspension diphenhydramine HCl 25 mg tablet 25 mg PO TID PRN itching #30 tabs 01/06/25 Unknown Rx (Benadryl Allergy) loratadine 10 mg tablet 10 mg PO DAILY #30 tabs 01/06/25 Unknown Rx prednisone 20 mg tablet 40 mg (2 x 20 mg) PO DAILY #12 tabs 01/06/25 Unknown Rx Allergy/AdvReac Type Severity Reaction Status Date / Time Sulfa (Sulfonamide Allergy Swelling Verified 01/05/25 21:04 Antibiotics) sulfamethoxazole (From Allergy Swelling Verified 01/05/25 21:04 Bactrim) trimethoprim (From Bactrim) Allergy Swelling Verified 01/05/25 21:04 Social History household members: none Smoking Status: Current every day smoker tobacco type: cigarettes ROS ROS ED Constitutional Constitutional ED: Denies chills, fever(s) or sweats ENT ENT ED: Denies sore throat Cardiovascular Cardiovascular: Denies chest pain, leg edema, palpitations or racing heartbeat Respiratory/Chest Respiratory/Chest: Reports dyspnea; Denies cough or dyspnea on exertion Gastrointestinal Gastrointestinal: Denies abdominal pain, diarrhea, nausea or vomiting Genitourinary Genitourinary ED: Denies dysuria, hematuria or urinary frequency Musculoskeletal Musculoskeletal: Denies back pain, extremity pain or neck pain Integumentary Reports rash; Denies wounds Neurologic Neurologic: Denies headache(s), paresthesias or weakness EXAM Physical Exam Const Vital Signs: 01/05/25 21:04 01/05/25 21:24 01/05/25 22:18 Temperature 97.2 F L Temperature Source Temporal Pulse Rate 96 96 Respiratory Rate 26 H 20 H Respiratory Effort Normal Non-Labored Respiratory Pattern Normal Normal Blood Pressure 157/105 H Blood Pressure Mean 122 Pulse Ox 100 Oxygen Delivery Method Room Air 01/05/25 23:03 01/06/25 00:29 Temperature 98.0 F Temperature Source Pulse Rate 85 78 Respiratory Rate 20 H 22 H Respiratory Effort Respiratory Pattern Blood Pressure 171/123 H 190/100 H Blood Pressure Mean 139 130 Pulse Ox 97 95 Oxygen Delivery Method Room Air Positive well nourished and well developed General Appearance ED: well developed and NAD HEENT Reports moist mucous membranes HEENT Narrative: No lip or tongue swelling normocephalic and atraumatic Eyes General Eye ED: Yes normal appearance of both eyes Neck full ROM Chest Wall Chest: Negative for tenderness Resp normal respiratory effort Resp Narrative: Faint wheeze on exam. Effort and Inspection: symmetric chest movement; Negative for respiratory distress Cardio regular rate, regular rhythm and no murmurs Peripheral Pulses: pulses 2+ throughout GI normal to inspection, nondistended, normoactive bowel sounds and non-tender GI Narrative: Redness and edema to the abdominal wall all blanching. Nontender. Palpation: Negative for guarding or rebound tenderness present Extremity normal to inspection General Extremety ED: Negative for edema or tenderness General Extremity: Negative for edema Neuro oriented x3 and no sensory deficits noted Sensorium / Orientation: awake and alert Skin no rashes or lesions noted and no wounds MDM MDM MDM Narrative Medical decision making narrative: Interventions / MDM: Differential diagnosis: Contact dermatitis, sleep apnea, history of diabetes Diagnosis considered but do not suspect: Cellulitis however blanching of the erythema. My EKG interpretation: N/A Imaging independently reviewed and interpreted by myself: N/A External documents reviewed: ED visit from the fourth of this month, seen for head injury abdominal redness and oral thrush. He was put on clindamycin, Lasix for swelling and nystatin. Test considered but not ordered:N/A ED course: Afebrile faint wheeze on exam will give aerosol treatments. He has had abdominal redness itching for 3 weeks now. This all blanches pruritic therefore not likely cellulitis. Concerns more of contact dermatitis. He is a diabetic. Will check blood glucose laboratory studies was obtained by nursing on his arrival. This will be sent for reevaluation. Will start IV Benadryl. 0030: Labs stable white count 10. Creatinine 1.17. Hemolyzed potassium of 5.3. Glucose was 210 normal. Sleepy from the Benadryl there was slight improvement of erythema in his abdomen. Discussed with him again lower suspicion for cellulitis. Diabetic on insulin. Discussed 2 weeks of symptoms, steroid should help however he will need to monitor his glucose. He understands and agrees with this plan. Started on 40 mg prednisone. Initially reported allergies causing leg swelling, discussed not allergic action. He will monitor swelling. They will follow-up with primary care doctor. Prescription also for Benadryl and loratadine. All questions were answered. Patient Re-evaluation: stable Disposition discussed with patient/family/significant other: Case discussed with consulting clinician: N/A This note was generated with [employer] dictation software. It may contain incorrect words, spelling, and punctuation that were not noted in checking the note before signing. Lab Data Attestation: I reviewed the patient's lab results. Labs: Laboratory Results - last 24 hr 01/05/25 01/05/25 21:36 22:14 WBC 10.0 RBC 5.60 Hgb 16.9 H Hct 49.2 MCV 87.9 MCH 30.2 MCHC 34.3 RDW Std Deviation 42.8 RDW Coeff of Amanda 13.3 Plt Count 231 MPV 11.0 Immature Gran % (Auto) 0.500 Neut % (Auto) 54.5 Lymph % (Auto) 29.7 [place] % (Auto) 8.4 Eos % (Auto) 6.5 H Baso % (Auto) 0.4 Absolute Neuts (auto) 5.4 Absolute Lymphs (auto) 2.96 Nucleated RBC % 0 Sodium 134 Potassium 5.3 H Chloride 100 Carbon Dioxide 18.5 L Anion Gap 15 BUN 12 Creatinine 1.17 Estim Creat Clear Calc 90.22 Est GFR (MDRD) Non-Af 71 BUN/Creatinine Ratio 10.5 Glucose 210 H Calcium 9.0 POC Glucose 220 H Discharge Plan Triage Chief Complaint: General Illness ED Provider: Prieto Bey Dx/Rx/DC Orders Clinical Impression: Contact dermatitis, Type 2 diabetes mellitus with insulin therapy, Obstructive sleep apnea Instructions: ED Contact Dermatitis Prescriptions: New prednisone 20 mg tablet 40 mg PO DAILY Qty: 12 0RF diphenhydramine HCl [Benadryl Allergy] 25 mg tablet 25 mg PO TID PRN (Reason: itching) Qty: 30 0RF loratadine 10 mg tablet 10 mg PO DAILY Qty: 30 0RF No Action aspirin 325 MG tablet 325 mg PO DAILY@0800 levothyroxine 125 MCG tablet 125 mcg PO DAILY metoprolol tartrate 50 MG tablet 50 mg PO DAILY doxycycline hyclate 100 MG capsule 100 mg PO BID Qty: 28 0RF clindamycin HCl [Cleocin HCl] 300 mg capsule 300 mg PO 4X/DAY 10 Days Qty: 40 0RF nystatin 100,000 unit/mL suspension 5 ml PO 4X/DAY 14 Days Qty: 280 0RF Rx Instructions: Swish for 1 to 2 minutes then spit out medication furosemide [Lasix] 20 mg tablet 20 mg PO DAILY 30 Days Qty: 30 0RF prednisone 20 mg tablet 60 mg PO DAILY Qty: 15 0RF albuterol sulfate [Ventolin HFA] 90 mcg/actuation HFA aerosol inhaler 2 puff inhalation Q4H PRN PRN (Reason: Wheezing) Qty: 1 0RF Primary Care Provider: Care Physician,No Primary Referrals: Baron Santiago MD [Med Staff - Low Pressure Firer] - 1 Week Care Physician,No Primary [Primary Care Provider] - Activity Restrictions/Additional Instructions: Your abdominal redness is not cellulitis. White count normal. Redness blanches. Use loratadine daily to help with itching. Take prednisone as prescribed. Benadryl as needed in addition if more itching. Monitor your glucose. Follow-up with primary care doctor. Print Language: [place] Disposition Disposition: Home, Self Care
[2025-01-05 22:13] LABS: Absolute Lymphocyte Count 2.96 X10^3/uL (0.83-4.51); Absolute Neutrophil Count 5.4 X10^3/uL (2.0-7.7); Basophil# 0.04 X10^3/uL; Basophil% 0.4 % (0-1); Eosinophil# 0.65 X10^3/uL; Eosinophils% 6.5 % (0-5); Hematocrit 49.2 % (40-54); Hemoglobin 16.9 g/dL (13.0-16.5); Lymphocyte # 2.96 X10^3/ul (0.83-4.51); Lymphocyte % 29.7 % (19-41); Mean Corp Hgb Conc 34.3 g/dL (32-36); Mean Corpuscular Hgb 30.2 pg (27.0-32.0); Mean Corpuscular Volume 87.9 fL (80-94); Monocyte# 0.84 X10^3/uL; Monocyte% 8.4 % (0-10); NRBC Flagged by Analyzer 0 % (0-5); Neutrophil # 5.41 X10^3/uL (2.7-7.7); Neutrophil % 54.5 % (47-70); Platelet Count 231 K/mm3 (150-450); RBC Distribution Width CV 13.3 % (11.6-14.6); RBC Distribution Width SD 42.8 fl (35.1-43.9)
[2025-01-05] MEDS: DiphenhydrAMINE 50 MG/ML Syringe IV (22:15)
[2025-01-05 22:18] VITALS: PULSE 96; RESP 20
[2025-01-05] MEDS: Ipratropium/Albuterol Sulfate 3 ML AMPUL.NEB INHALATION (22:18)
[2025-01-05 22:35] LABS: Bedside Glucose 220 mg/dL (74-106)
[2025-01-05 23:03] VITALS: BP 171/123; PULSE 85; RESP 20; O2SAT 97
[2025-01-05 23:44] LABS: Anion Gap 15 (5-15); BUN 12 mg/dL (4-19); BUN/Creat Ratio 10.5 RATIO (10-20); Carbon Dioxide 18.5 mmol/L (21.0-32.0); Chloride 100 mmol/L (98-108); Creatinine, Serum 1.17 mg/dL (0.70-1.20); EST Glomerular Filtration Rate 71 (>60); Estimated Creatinine Clearance 90.22 ml/min (50-250); Glucose 210 mg/dL (70-99); Potassium 5.3 mmol/L (3.3-5.1); Sodium Level 134 mmol/L (133-145)
[2025-01-06] MEDS: predniSONE 20 MG Tablet 40 MG PO (00:17)
[2025-01-06 00:29] VITALS: BP 190/100; PULSE 78; RESP 22; TEMP 36.7; O2SAT 95
== END 2025-01-06 01:20 | disposition home or self-care (01) ==
PROVIDERS: Emergency Provider Emergency Medicine; Visit Provider Emergency Medicine
DX: L25.9 Unspecified contact dermatitis, unspecified cause (principal); E11.9 Type 2 diabetes mellitus without complications; Z79.4 Long term (current) use of insulin; G47.33 Obstructive sleep apnea (adult) (pediatric); F17.210 Nicotine dependence, cigarettes, uncomplicated; I10 Essential (primary) hypertension; R06.00 Dyspnea, unspecified
CPT/HCPCS: 80048; 82962; 85025; 94640; 96374; 99285; A4216

== ENCOUNTER 2025-03-08 03:13 | Emergency (ER) | payer MEDICARE, MEDICAID, SELFPAY ==
[2025-03-08 03:15] VITALS: BP 161/108; PULSE 84; RESP 18; TEMP 36.4; O2SAT 94; BMI 46.0
--- NOTE | 2025-03-08 03:30 | RAD_ITS ---
PROCEDURE: WRIST MIN 3 VIEWS 03/08/2025 REASON FOR EXAM: INJURY TECHNIQUE: WRIST MIN 3 VIEWS COMPARISON: None. FINDINGS: Soft tissue edema and swelling. Mild osteopenia of the visualized bones. Degenerative joint disease. No fracture or dislocation is seen. No lytic or blastic bone lesion is noted. RAD/Wrist min 3 Views IMPRESSION: Soft tissue edema and swelling. [facility]
--- OUTSIDE RECORDS SUMMARY | 2025-03-08 03:51 | XMS RPT_ITS | CCD ---
Author Organization [facility] Care Team Providers Care [employer] Professor Name Role Phone Unavailable Primary Care Provider UnavailGavin Waldrop DO Unavailable Dunacn Craven MD Primary Care Provider Gavin Betancur DO Unavailable Unavailable Primary Care Provider Unavailjuan BETANCUR II, DR GAVIN MALAVE Primary Care Physi tracey Unavailable Duncan Craven MD Primary Care Provider [phone] KYLIE DURANT DO Attending Unavailable PIPE GONSALVES, DR GAVIN MALAVE Primary Care Un available INDER PRAJAPATI MD Attending Unavailable PIPE GONSALVES, DR GAVIN MALAVE Primary Care Un available Justo RN, Homa Unavailable Unavailable Nisha [facility] Unavailable Unavail able Esola RN, Homa Unavailable Unavailable Ivonne RN, Denise N Unavailable Esrick RN, Homa Unavailable Ivonne RN, Denise N Unavailable Ivonne RN, Denise N Unavailable Ivonne RN, Denise N Unavailable Pipe MARIE Gavin Unavailable Duncan Craven MD Primary Care Provider Oscar Brizuela MD Primary Care Provider DR SERGEI DAWN DO Attending Unavailable PIPE GONSALVES, DR GAVIN MALAVE Primary Care Un available PHYSICIAN, NONE Primary Care Unavailable LESA SMITH MD Attending Unavail able PHYSICIAN, NONE Primary Care Unavailable TIM ALONSO, DR MILLAN Attending Unavailjuan Sandy CULTURAL CENTRE MANAGER.ELEMENTARY SUPERVISOR, Negin Unavailable Podlogar CULTURAL CENTRE MANAGER.ELEMENTARY SUPERVISOR, Jocelyn Unavailable Du CULTURAL CENTRE MANAGER.ELEMENTARY SUPERVISOR, Negin Unavailable Luis Fernando ALONSO, Dr. Stewart Attending Provider Luis Fernando ALONSO, Dr. Stewart Emergency Provider Care Physician, No Primary Primary Care Provider Unavailable Dr. Salty Werner DO Emergency Provider Care Physician, No Primary Primary Care Provider Unavailable Andtalia MARIE, Dr. Pond Attending Provider Le DO, Dr. Moreau Emergency Provider Prieto Bey Attending Unavailable Care Physician, No Primary Primary Care Unava ilable Salty Werner Attending Unavailable Care Physician, No Primary Primary Care Unava ilable Terry Gould Attending Unavailable Care Physician, No Primary Primary Care Unava ilable [facility] Admitting Unavailable RAHAT CHRISTIE Attending Unavailable OSCAR BRIZUELA Attending Unavailab le LOTFIAN, SHOLA-ALI Primary Care Unavailable LOTFIAN, SHOLA-ALI Referring Unavailable LOTFIAN, SHOLA-ALI Primary Care Unavailable LOTFIAN, SHOLA-ALI Primary Care Unavailable LOTFIAN, SHOLA-ALI Primary Care Unavailable YULIET FONG Attending Unavailable OSCAR BRIZUELA Primary Care Unavailab YULIET Simon Attending Unavailable OSCAR BRIZUELA Primary Care Unavailab le NIKOLAI NAZARIO Referring Unavailable LOTFIAN, SHOLA-ALI Primary Care Unavailable INDER BRUCE Referring Unavail able LOTFIAN, SHOLA-ALI Primary Care Unavailable INDER BRUCE Referring Unavail able Nikolai Nazario DO Primary Care Provider TALITA ROSS Referring Unavailable NIKOLAI NAZARIO Primary Care Unavailable TALITA ROSS Attending Unavailable NIKOLAI NAZARIO Primary Care Unavailable GAVIN BETANCUR Attending Unavailabl e LOTFIAN, SHOLA-ALI Primary Care Unavailable LOTFIAN, SHOLA-ALI Primary Care Unavailable LOTFIAN, SHOLA-ALI Referring Unavailable YOUSUF PONCE Referring Unavailable BOO KIRAN Attending Unavailable LOTFIAN, SHOLA-ALI Primary Care Unavailable LOTFIAN, SHOLA-ALI Primary Care Unavailable LOTFIAN, SHOLA-ALI Referring Unavailable LOTFIAN, SHOLA-ALI Primary Care Unavailable GAVIN BETANCUR II Referring Unava ilable INDER BRUCE Attending Unavail able LOTFIAN, SHOLA-ALI Primary Care Unavailable HECTOR FULTON Admitting Unavailable HECTOR FULTON Attending Unavailable OSCAR BRIZUELA Primary Care Unavailab le SELF Referring Unavailable ORAL ABBASI Attending Unavailable LOTFIAN, SHOLA-ALI Primary Care Unavailable OSCAR BRIZUELA Primary Care Unavailab le INDER BRUCE Attending Unavail able LOTFIAN, SHOLA-ALI Primary Care Unavailable ORLANDO BURNS Consulting Unavailable CHALO WORKMAN Admitting Unavailable LUKAS DSOUZA Attending Unavailable OSCAR BRIZUELA Primary Care Unavailab INDER Lema Referring Unavail able ISSAC XIAO Attending Unavailable LOTFIAN, SHOLA-ALI Primary Care Unavailable LOTFIAN, SHOLA-ALI Referring Unavailable OSCAR BRIZUELA Primary Care Unavailab ISSAC Meraz Attending Unavailable OSCAR BRIZUELA Primary Care Unavailab NIKOLAI May Attending Unavailable ANTONIA CASE Attending Unavailable LOTFIAN, SHOLA-ALI Primary Care Unavailable LOTFIAN, SHOLA-ALI Primary Care Unavailable LOTFIAN, SHOLA-ALI Referring Unavailable BARBIE WELLINGTON Attending Unavailable LOTFIAN, SHOLA-ALI Primary Care Unavailable Allergies Allergy Classification Reported Allergen(s) Allergy Type Date of Onset Reaction(s) Facility (20 sources) Sulfamethoxazole Drug Allergy 10-29-19 11 Rash, Swelling [facility] (20 sources) Sulfamethoxazole / Trimethoprim; Translations: [sulfamethoxazole-tr imethoprim] Drug Allergy 10-20-19 10 Hives, Rash, Swelling [facility] (20 sources) Lisinopril; Translations: [LISINOPRIL] Drug Allergy 04-24-20 23 Cough [facility] (20 sources) metFORMIN; Translations: [METFORMIN] Drug Allergy 04-26-20 23 Diarrhea [facility] (20 sources) Amoxicillin / Clavulanate; Translations: [AMOXICILLIN-POT CLAVULANATE] Drug Allergy 12-23-19 24 Anaphylaxis, Swelling [facility] (20 sources) Doxycycline; Translations: [doxycycline] Drug Allergy 11-09-19 Unknown [facility] (3 sources) Sulfonamides (Antibiotic) Allergy to substance 09-04-20 Swelling [facility] (20 sources) Trimethoprim; Translations: [TRIMETHOPRIM] Drug Allergy 09-04-20 Swelling [facility] (1 source) predniSONE Drug Allergy 12-24-19 Swelling [facility] (1 source) predniSONE Drug Allergy 12-24-19 [facility] (1 source) Sulfamethoxazole Drug Allergy 01-06-20 [facility] (1 source) Sulfonamides (Antibiotic) Drug allergy (disorder) 01-06-20 [facility] (1 source) Trimethoprim Drug Allergy 01-06-20 [facility] Medications Current Medications Medication Drug Class(es) Dates Sig (Normalized) Sig (Original) acetaminophen 325 mg / oxyCODONE hydrochloride 5 mg oral tablet (2 sources) Opioid Agonist Start: 05-27-2023 End: 06-03-2023 take 1 tablet by mouth every six hours as needed for pain oxyCODONE-acetamin ophen (PERCOCET) 5-325 mg tablet Indications: Post-op pain Take 1 tablet by mouth every 6 hours as needed for pain for up to 7 days. 10 tablet 0 05/27/2023 06/03/2023 Active Comment on above: Take 1 tablet by lisandro every 6 hours as needed for pain for up to 7 days. [id number] 200 actuat albuterol 0.09 mg/actuat metered dose inhaler (20 sources) beta2-Adrenergic Agonist Start: 03-02-2025 End: 03-02-2026 take 2 puff(s) by inhalation every four hours as needed for wheezing albuterol HFA (PROVENTIL HFA, VENTOLIN HFA) 90 mcg/actuation inhaler Indications: Mild intermittent asthma, unspecified whether complicated (HCC) Inhale 2 puffs as instructed every 4 hours as needed for wheezing/shortness of breath. 1 each 3 03/02/2025 03/02/2026 Active Start: 10-11-2024 take 2 puff(s) by in halation every four hours as needed albuterol 108 (90 Base) MCG/ACT inhaler Inhale 2 puffs every 4 hours as needed. 10/11/2024 Active Start: 08-31-2024 Albuterol Sulf ate (Ventolin Hfa) 90 mcg/actuation HFA aerosol inhaler Active 2 NMA INHALATION EVERY 4 HOURS NEEDED as needed for Wheezing August 31, 2024 1:00am Start: 12-29-2023 End: 03-01-2025 take 2 puff(s) by inhalation every four hours as needed for wheezing albuterol HFA (PROVENTIL HFA, VENTOLIN HFA) 90 mcg/actuation inhaler Indications: Mild intermittent asthma, unspecified whether complicated (HCC) Inhale 2 Puffs as instructed every 4 hours as needed for wheezing/shortness of breath. 6.7 g 10/11/2024 03/01/2025 Discontinued Start: 04-27-2023 End: 11-10-2023 take 2 puff(s) by inhalation every four hours as needed for wheezing albuterol HFA (PROVENTIL HFA, VENTOLIN HFA) 90 mcg/actuation inhaler Indications: Mild intermittent asthma, unspecified whether complicated Inhale 2 Puffs as instructed every 4 hours as needed for wheezing/shortness of breath. 6.7 g 0 08/12/2023 Active Comment on above: Inhale 2 Puffs as in structed every 4 hours as needed for wheezing/shortness of breath. albuterol MDI (90 mcg/inh) CFC free inhalation aerosol (8 sources) Start: take 2 puff(s) by inhalation every four hours albuterol MDI (90 mcg/inh) CFC free inhalation aerosol 2 puff(s), Inhalation, q4h, # 1 EA, 0 Refill(s) Start Date: 03/29/24 Status: Ordered Quantity: 1.0 Unit: EA Repeat number: 1 Start: 03-29-2024 take 2 puff(s) by in halation every four hours albuterol MDI (90 mcg/inh) CFC free inhalation aerosol 2 puff(s), Inhalation, q4h, # 1 EA, 0 Refill(s) Start Date: 03/29/24 Status: Ordered Start: 11-28-2023 take 2 puff(s) by in halation every four hours as needed for wheezing albuterol MDI (90 mcg/inh) CFC free inhalation aerosol 2 puff(s), Inhalation, q4h, PRN as needed for wheezing, # 8.5 gram(s), 0 Refill(s) Start Date: 11/28/23 Status: Ordered Quantity: 8.5 Unit: g Repeat number: 1 Start: 11-28-2023 take 2 puff(s) by in halation every four hours as needed for wheezing albuterol MDI (90 mcg/inh) CFC free inhalation aerosol 2 puff(s), Inhalation, q4h, PRN as needed for wheezing, # 8.5 gram(s), 0 Refill(s) Start Date: 11/28/23 Status: Ordered Start: 10-31-2014 take 2 puff(s) by in halation every four hours albuterol MDI (90 mcg/inh) CFC free inhalation aerosol 2 puff(s), Inhalation, q4h, # 1 EA, 0 Refill(s) Start Date: 10/31/14 Status: Ordered Quantity: 1.0 Unit: EA Repeat number: 1 Start: 10-31-2014 take 2 puff(s) by in halation every four hours albuterol MDI (90 mcg/inh) CFC free inhalation aerosol 2 puff(s), Inhalation, q4h, # 1 EA, 0 Refill(s) Start Date: 10/31/14 Status: Ordered 10 ml aminophylline 25 mg/ml injection (6 sources) Start: 04-13-2024 End: 04-20-2024 aminophylline 50-100 mg injection amoxicillin 875 mg oral tablet (1 source) Penicillin-class Antibacterial Start: 11-09-2024 End: 11-16-2024 amoxicillin 875 mg oral tablet Dose : 875 mg = 1 tab(s), Oral, BID, take with a probiotic, X 7 day(s), # 14 tab(s), 0 Refill(s), 11/16/24 10:30:00 PM EST Start Date: 11/09/24 Stop Date: 11/16/24 Status: Ordered Quantity: 14.0 Unit: tab(s) Repeat number: 1 apixaban 5 mg oral tablet (15 sources) Factor Xa Inhibitor Start: 04-15-2024 End: 05-15-2024 take 1 tablet by mouth twice daily apixaban (ELIQUIS) 5 mg tab(s) Take 1 tablet by mouth two times a day. 60 tablet 04/15/2024 05/15/2024 Active aspirin 81 mg delayed release oral tablet (20 sources) Platelet Aggregation Inhibitor, Nonsteroidal Anti-inflammatory Drug Start: 01-25-2024 End: 01-17-2025 take 1 tablet by mouth once daily aspirin, enteric coated (ASPIRIN, ENTERIC COATED) 81 mg EC tablet Take 1 tablet by mouth once daily. 07/18/2024 Active Start: 01-06-2024 take 1 tablet by lisandro th once daily aspirin, enteric coated (ADULT LOW DOSE ASPIRIN) 81 mg EC tablet Indications: Hx of acute myocardial infarction Take 1 tablet by mouth once daily. 90 tablet 3 01/06/2024 Active Start: 10-20-2023 End: 12-31-2023 take 1 tablet by mouth once daily aspirin, enteric coated (ADULT LOW DOSE ASPIRIN) 81 mg EC tablet Indications: Hx of acute myocardial infarction Take 1 tablet by mouth once daily. 90 tablet 3 10/20/2023 12/31/2023 Discontinued Start: 06-26-2023 End: 06-30-2023 take 1 tablet by mouth once daily aspirin, enteric coated (ADULT LOW DOSE ASPIRIN) 81 mg EC tablet Take 1 tablet by mouth once daily. 90 tablet 3 06/30/2023 Active Start: 10-15-2014 take 1 tablet by lisadnro th once daily Aspirin 325 MG tablet Active 325 mg PO DAILY@0800 October 15, 2014 1:00am Comment on above: Take 1 tablet by lisandro th once daily. Azithromycin 5 Day Dose Pack 250 mg oral tablet (1 source) Start: End: Azithromycin 5 Day Dose Pack 250 mg oral tablet Take two (2) tablets day 1-then one (1) tablet, Oral, Daily, X 5 day(s), # 6 tab(s), 0 Refill(s), 12/03/23 9:39:00 AM EDT, 122.7 Start Date: 11/28/23 Stop Date: 12/03/23 Status: Ordered clindamycin 300 mg oral capsule (2 sources) Lincosamide Antibacterial Start: take 1 capsule by mouth four times daily Clindamycin Hcl (Cleocin Hcl) 300 mg capsule Active 300 mg PO 4 TIMES DAILY 40 December 23, 2024 12:00am dapagliflozin 10 mg oral tablet (16 sources) Sodium-Glucose Cotransporter 2 Inhibitor Start: End: take 1 tablet by mouth once daily dapagliflozin (Farxiga) 10 MG tablet Indications: Heart Failure Take 1 tablet (10 mg) by mouth daily. 30 tablet 11 01/17/2025 01/17/2026 Active diphenhydrAMINE hydrochloride 25 mg oral tablet (12 sources) Histamine-1 Receptor Antagonist Start: take 1 tablet by mouth three times daily as needed Diphenhydramine Hcl (Benadryl Allergy) 25 mg tablet Active 25 mg PO THREE TIMES A DAY as needed for itching January 06, 2025 12:00am take 1 capsule by mo [facility] every eight hours as needed diphenhydrAMINE (BANOPHEN) 25 mg capsule Take 25 mg by mouth three times a day as needed. Active doxycycline hyclate 100 mg oral tablet (8 sources) Tetracycline-class Drug Start: 08-31-2023 End: 09-07-2023 take 1 tablet by mouth twice daily doxycycline (VIBRA-TABS) 100 mg tablet Take 1 tablet by mouth two times a day for 7 days. 14 tablet 0 08/31/2023 09/07/2023 Active Start: 06-30-2023 End: 07-07-2023 take 1 tablet by mouth twice daily doxycycline monohydrate 100 mg tablet Indications: Skin infection Take 1 tablet by mouth two times a day for 7 days. 14 tablet 0 06/30/2023 07/07/2023 Start: 01-12-2017 take 1 capsule by mo [facility] twice daily Doxycycline Hyclate 100 MG capsule Active 100 mg PO TWICE A DAY January 12, 2017 12:00am Comment on above: Take 1 tablet by lisandroeast [facility] two times a day for 7 days. dulaglutide (TRULICITY) 3 mg/0.5 mL pen injector (2 sources) Start: End: dulaglutide (TRULICITY) 3 mg/0.5 mL pen injector Indications: Uncontrolled type 2 diabetes mellitus with hyperglycemia (HCC) , Primary hypertension , Coronary artery disease involving [place] coronary artery of [place] heart without angina pectoris , BMI 40.0-44.9, adult ([facility]) Inject 3 mg subcutaneously one time a week. 2 mL 2 03/02/2025 05/31/2025 Active ezetimibe 10 mg oral tablet (11 sources) Dietary Cholesterol Absorption Inhibitor Start: End: take 1 tablet by mouth once daily ezetimibe (ZETIA) 10 mg tablet Indications: Hypercholesteremia Take 1 tablet by mouth once daily. 90 tablet 3 01/19/2025 01/19/2026 Active fluticasone propionate 0.05 mg/actuat metered dose nasal spray (20 sources) Corticosteroid Start: End: take 1 spray(s) nasal route once daily at bedtime fluticasone (FLONASE) 50 mcg/actuation nasal spray Use 1 spray in each nostril daily at bedtime. 3 each 3 01/19/2025 01/19/2026 Active Start: 10-20-2023 End: 05-29-2024 take 2 spray(s) nasal route once daily fluticasone (FLONASE) 50 mcg/actuation nasal spray Indications: Tobacco abuse Use 2 Sprays in each nostril once daily. 18.2 mL 0 02/03/2024 05/03/2024 Active Start: 11-12-2016 fluticasone (F LONASE) 50 mcg/actuation nasal spray Use 2 Sprays in the nose. 0 11/12/2016 Active Comment on above: Use 2 Sprays in the nose. Use 2 Sprays in each nostril once daily. furosemide 40 mg oral tablet (20 sources) Loop Diuretic Start: 01-17-2025 End: 01-17-2026 take 1 tablet by mouth once daily furosemide (Lasix) 40 MG tablet Take 1 tablet (40 mg) by mouth daily. 30 tablet 11 01/17/2025 01/17/2026 Active Start: 01-13-2025 End: 01-14-2025 80 mg, IntraVENous, 2 times daily, First dose on Thu01/13/25 at 2355 Start: 01-13-2025 40 mg, IntraVE Nous, Once, On Thu01/13/25 at 1850, For 1 dose Start: 12-23-2024 End: 01-17-2025 take 1 tablet by mouth once daily furosemide (Lasix) 20 MG tablet Take 20 mg by mouth daily. 12/23/2024 01/17/2025 Discontinued (Stop taking at discharge) Start: 04-16-2024 End: 10-18-2024 take 1 tablet by mouth once daily furosemide (LASIX) 40 mg tablet Take 1 tablet by mouth once daily. Patient should start on April 16, 2024. 30 tablet 04/16/2024 10/18/2024 Discontinued Start: 04-11-2024 End: 04-18-2024 take 1 tablet by mouth once daily furosemide (LASIX) 20 mg tablet Indications: Bilateral lower extremity edema Take 1 tablet by mouth once daily for 7 days. 7 tablet 0 04/11/2024 04/18/2024 Active take 2 tablets by mo [facility] once daily furosemide (LASIX) 20 mg tablet Take 40 mg by mouth once daily. Active glipiZIDE 5 mg oral tablet (4 sources) Sulfonylurea Start: 04-27-2023 End: 07-26-2023 take 1 tablet by mouth once daily glipiZIDE (GLUCOTROL) 5 mg tablet Indications: Uncontrolled type 2 diabetes mellitus with hyperglycemia (HCC) Take 1 tablet by mouth once daily. 90 tablet 0 04/27/2023 07/26/2023 Active Comment on above: Take 1 tablet by mouth once daily. ibuprofen 600 mg oral tablet (20 sources) Nonsteroidal Anti-inflammatory Drug Start: 01-25-2024 take 1 tablet by mouth every eight hours as needed for pain ibuprofen (MOTRIN) 600 mg tablet Indications: Left hand pain Take 1 tablet by mouth every 8 hours as needed for pain. 30 tablet 0 01/25/2024 Active Start: 01-06-2024 take 1 tablet by lisandro every eight hours as needed for pain ibuprofen (MOTRIN) 600 mg tablet Indications: Left hand pain Take 1 tablet by mouth every 8 hours as needed for pain. 30 tablet 0 01/06/2024 Active Start: 10-20-2023 End: 12-31-2023 take 1 tablet by mouth every eight hours as needed for pain ibuprofen (MOTRIN) 600 mg tablet Indications: Left hand pain Take 1 tablet by mouth every 8 hours as needed for pain. 30 tablet 0 10/20/2023 12/31/2023 Discontinued Start: 01-19-2017 take 1 tablet by lisandro th every eight hours as needed for pain ibuprofen (MOTRIN) 600 mg tablet Indications: Left hand pain Take 1 tablet by mouth every 8 hours as needed for Pain. 30 tablet 0 01/19/2017 Active Comment on above: Take 1 tablet by lisandro th every 8 hours as needed for Pain. 3 ml insulin glargine 100 unt/ml pen injector (20 sources) Insulin Analog Start: 01-16-2025 End: 01-17-2025 inject 22 [IU] by subcutaneous injection once daily 22 Units, SubCUTAneous, Nightly, First dose (after last modification) on Thu01/16/25 at 2100 Start: 01-13-2025 End: 01-16-2025 inject 20 [IU] by subcutaneous injection once daily 20 Units, SubCUTAneous, Nightly, First dose on Thu01/13/25 at 2355 Start: 07-29-2024 End: 03-02-2026 inject 20 [IU] by subcutaneous injection once daily at bedtime insulin glargine 100 unit/mL (3 mL) Indications: Uncontrolled type 2 diabetes mellitus with hyperglycemia (HCC) Inject 20 Units subcutaneously daily at bedtime. 18 mL 3 03/02/2025 03/02/2026 Active Start: 07-28-2024 inject 20 [IU] by velasco bcutaneous injection once daily insulin glargine 100 unit/mL (3 mL) Indications: Uncontrolled type 2 diabetes mellitus with hyperglycemia (HCC) Inject 20 Units subcutaneously once daily. 15 mL 1 07/28/2024 Active Start: 01-25-2024 End: 07-25-2024 inject 20 [IU] by subcutaneous injection once daily insulin glargine 100 unit/mL (3 mL) Indications: Uncontrolled type 2 diabetes mellitus with hyperglycemia (HCC) Inject 20 Units subcutaneously once daily. 15 mL 1 07/07/2024 07/25/2024 Discontinued Start: 01-06-2024 inject 20 [IU] by velasco bcutaneous injection once daily insulin glargine 100 unit/mL (3 mL) Indications: Uncontrolled type 2 diabetes mellitus with hyperglycemia (HCC) Inject 20 Units subcutaneously once daily. 9 mL 1 01/06/2024 Active Start: 10-20-2023 End: 12-31-2023 inject 20 [IU] by subcutaneous injection once daily insulin glargine 100 unit/mL (3 mL) Indications: Uncontrolled type 2 diabetes mellitus with hyperglycemia (HCC) Inject 20 Units subcutaneously once daily. 9 mL 1 10/20/2023 12/31/2023 Discontinued Start: 09-10-2023 End: 09-11-2023 inject 15 [IU] by subcutaneous injection every twenty-four hours insulin glargine (LANTUS) 100 unit/mL injection Inject 15 Units subcutaneously every 24 hours. 10 mL 5 09/10/2023 09/11/2023 Discontinued Comment on above: Inject 15 Units subc utaneously every 24 hours. Inject 20 Units subc utaneously once daily. iv contrast (will be provided with radiology test) (4 sources) Start: 2024 End: 2024 inject 1 dose intravenously once, then inject 1 dose intravenously once iv contrast (will be provided with radiology test) Inject 1 Each intravenously one time only for [address] Neck W IVCON No IV access, insert saline lock prior to the sedation, infusion, injection for imaging exam. Discontinue saline lock post exam. If Pt. has a central line or IVAD, may access for administration according to line specific nursing protocol. Once exam is complete flush line and de-access according to line specific nursing protocol in the CT contrast administration guidelines link. 1 Each 10/18/2024 10/18/2024 Active levothyroxine sodium 0.125 mg oral tablet (20 sources) l-Thyroxine Start: 2024 End: 2024 take 125 ug by mouth once daily before breakfast 125 mcg, Oral, Daily before breakfast, First dose on 01/14/25 at 0600, Tube feeding (TF) interaction, obtain physician order to manage, recommend holding TF for 30 minutes before and after dose. Start: 10-31-2014 levothyroxine 125 mcg (0.125 mg) oral tablet Dose : 125 mcg = 1 tab(s), Oral, qDay Start Date: 10/31/14 Status: Ordered Repeat number: 1 Start: 10-15-2014 End: 03-02-2026 take 1 tablet by mouth once daily before breakfast levothyroxine (SYNTHROID) 125 mcg tablet Indications: Hypothyroidism, unspecified type Take 1 tablet by mouth daily before breakfast. 90 tablet 3 03/02/2025 03/02/2026 Active Comment on above: Take 125 mcg by mout h daily before breakfast. Take 1 tablet by lisandro th daily before breakfast. loratadine 10 mg oral tablet (15 sources) Start: 5 take 1 tablet by mouth once daily loratadine (Claritin) 10 MG tablet Take 10 mg by mouth daily. 01/06/2025 Active losartan potassium 25 mg oral tablet (20 sources) Angiotensin 2 Receptor Rebecca Start: 3 End: 4 take 1 tablet by mouth twice daily losartan (COZAAR) 25 mg tablet Indications: Primary hypertension Take 1 tablet by mouth two times a day. 180 tablet 0 01/25/2024 04/24/2024 Active Start: 06-26-2023 End: 09-10-2023 take 1 tablet by mouth once daily losartan (COZAAR) 25 mg tablet Indications: Primary hypertension Take 1 tablet by mouth once daily. 90 tablet 3 07/07/2023 09/10/2023 Discontinued Comment on above: Take 1 tablet by lisandro th once daily. Take 1 tablet by lisandro th two times a day. magnesium, aluminum hydroxide (MYLANTA ORAL) (20 sources) take 5 mL by mouth every twelve hours as needed magnesium, aluminum hydroxide (MYLANTA ORAL) Take 5 mL by mouth two times a day as needed (heartburn). Active take 5 mL by mouth e very twelve hours as needed magnesium, aluminum hydroxide (MYLANTA O RAL) Take 5 mL by mouth two times a day as needed (heartburn). 0 Active metFORMIN hydrochloride 1000 mg oral tablet (20 sources) Biguanide Start: 07-07-2023 End: 09-11-2023 take 1 tablet by mouth once daily at breakfast, then take 2 tablets by mouth once daily at dinner metFORMIN (GLUCOPHAGE) 500 mg tablet Indications: Uncontrolled type 2 diabetes mellitus with hyperglycemia (HCC) Take 1 tablet by mouth daily with breakfast AND 2 tablets daily with dinner. Do all this for 14 days. 42 tablet 0 07/22/2023 09/11/2023 Discontinued Start: 05-20-2023 End: 03-02-2026 take 1 tablet by mouth twice daily metFORMIN (GLUCOPHAGE) 1,000 mg tablet Indications: Uncontrolled type 2 diabetes mellitus with hyperglycemia (HCC) Take 1 tablet by mouth two times a day. 180 tablet 3 03/02/2025 03/02/2026 Active Start: 04-07-2023 End: 05-19-2023 take 1 tablet by mouth once daily at breakfast, then take 2 tablets by mouth once daily at dinner metFORMIN (GLUCOPHAGE) 500 mg tablet Indications: Uncontrolled type 2 diabetes mellitus with hyperglycemia (HCC) Take 1 tablet by mouth daily with breakfast AND 2 tablets daily with dinner. Do all this for 14 days. 42 tablet 0 05/05/2023 05/19/2023 Active Comment on above: Take 1 tablet by lisandro th daily with dinner for 14 days, THEN 1 tablet twice daily with meals for 14 days. Take 1 tablet by lisandro th daily with breakfast AND 2 tablets daily with dinner. Do all this for 14 days. Take 1 tablet by lisandro th twice daily. Take 1 tablet by lisandro th daily with dinner for 14 days, THEN 1 tablet two times a day with meals for 14 days. Take 1 tablet by lisandro two times a day. 24 hr metoprolol succinate 25 mg extended release oral tablet (20 sources) beta-Adrenergic Rebecca Start: 01-17-2025 End: 01-17-2025 take 50 mg by mouth once daily 50 mg, Oral, Daily, First dose (after last modification) on Thu01/17/25 at 0800, Do not crush or chew. Start: 07-28-2024 End: 03-02-2026 take 1 tablet by mouth once daily metoprolol succinate ER (TOPROL XL) 25 mg 24 hr tablet Take 1 tablet by mouth once daily. 90 tablet 3 03/02/2025 03/02/2026 Active Start: 04-13-2024 End: 04-20-2024 metoprolol 2.5-5 mg injectio n (LOPRESSOR) Start: 02-03-2024 End: 07-25-2024 take 1 tablet by mouth once daily metoprolol succinate ER (TOPROL XL) 25 mg 24 hr tablet Take 1 tablet by mouth once daily. 30 tablet 2 04/19/2024 07/25/2024 Discontinued Start: 02-03-2023 End: 04-05-2024 take 1 tablet by mouth twice daily metoprolol tartrate, short acting, (LOPRESSOR) 25 mg tablet Indications: Hx of acute myocardial infarction Take 1 tablet by mouth two times a day. 180 tablet 0 01/25/2024 02/03/2024 Discontinued Start: 10-15-2014 take 1 tablet by lisandro th once daily Metoprolol Tartrate 50 MG tablet Active 50 mg PO DAILY October 15, 2014 1:00am Comment on above: Take 25 mg by mouth once daily. Take 25 mg by mouth twice daily. Take 1 tablet by lisandro th two times a day. mirtazapine 15 mg oral tablet (20 sources) Start: 01-27-2025 End: 05-27-2025 take 1.5 tablets by mouth once daily at bedtime mirtazapine (REMERON) 15 mg tablet Indications: Mood disorder , Insomnia, unspecified type , Anxiety Take 1.5 tablets by mouth daily at bedtime. 45 tablet 3 01/27/2025 05/27/2025 Active Start: 10-20-2023 End: 04-16-2025 take 1 tablet by mouth once daily at bedtime mirtazapine (REMERON) 15 mg tablet Indications: Mood disorder , Insomnia, unspecified type , Anxiety Take 1 tablet by mouth daily at bedtime. 30 tablet 2 01/16/2025 01/24/2025 Discontinued Start: 03-25-2023 End: 10-10-2023 take 1 tablet by mouth once daily at bedtime mirtazapine (REMERON) 15 mg tablet Indications: Primary insomnia Take 1 tablet by mouth daily at bedtime. 30 tablet 0 09/10/2023 10/10/2023 Active Comment on above: Take 1 tablet by lisandro th daily at bedtime. Take 15 mg by mouth daily at bedtime. MULTI-VITAMIN ORAL (20 sources) MULTI-VITAMIN ORAL None Entered 0 Active Comment on above: None Entered 24 hr nicotine 0.875 mg/hr transdermal system (20 sources) Cholinergic Nicotinic Agonist Start: End: apply 1 dose transdermal route every twenty-four hours nicotine (NICODERM CQ) 21 mg/24 hr Indications: Tobacco abuse Apply 1 patch as directed every 24 hours. 30 patch 2 01/19/2025 04/19/2025 Active Start: 01-19-2025 End: 04-19-2025 nicotine polacrilex (NICORET TE) 4 mg gum Indications: Tobacco abuse Take 1 each by mouth as needed. 100 each 3 01/19/2025 04/19/2025 Active Start: 01-14-2025 End: 01-17-2025 apply 1 dose transdermal route once daily at bedtime 1 patch, TransDERmal, Administer over 24 Hours, Daily, First dose on 01/14/25 at 2015, Apply new patch to nonhairy, clean, dry skin on the upper body or upper outer arm. Rotate patch sites. Notify Pharmacy if patient or provider prefers patch to be removed at bedtime and replaced in the morning. nystatin [id number] unt/ml oral suspension (20 sources) Polyene Antifungal Start: 12-23-2024 Nystatin 10 0,000 unit/mL suspension Active 5 mL PO 4 TIMES DAILY 280 December 23, 2024 12:00am Swish for 1 to 2 minutes then spit out medication Start: 10-18-2024 End: 11-09-2024 take 1 mL by mouth four times daily, then take 5 mL by mouth once daily nystatin (MYCOSTATIN) 100,000 unit/mL suspension Indications: Thrush (oral) Take 1 mL by mouth four times daily. Swish and swallow. 5 ml 4times daily 473 mL 10/18/2024 11/09/2024 Discontinued (Course of therapy completed) Start: 03-29-2024 End: 04-05-2024 take 1 dose by mouth four times daily nystatin 100,000 units/mL oral suspension Dose : 500,000 unit(s) = 5 mL, Oral, QID, X 7 day(s), # 140 mL, 0 Refill(s), 04/05/24 11:02:00 AM EDT, (swish and swallow) Start Date: 03/29/24 Stop Date: 04/05/24 Status: Ordered End: 10-18-2024 take 5 mL by mouth once daily nystatin (MYCOSTATIN) 10 0,000 unit/mL suspension Take 100,000 Units by mouth four times daily. Swish and swallow. 5 ml 4times daily 10/18/2024 Discontinued perflutren lipid microsphere s 1.3 mL in NaCl (PF) 0.9% 10 mL injection (DEFINITY) (8 sources) Start: 04-13-2024 End: 04-20-2024 perflutren lipid microsphere s 1.3 mL in NaCl (PF) 0.9% 10 mL injection (DEFINITY) Start: 04-12-2024 End: 04-12-2024 perflutren lipid microsphere s 1.3 mL in NaCl (PF) 0.9% 10 mL injection (DEFINITY) predniSONE 20 mg oral tablet (20 sources) Start: 01-06-2025 take 2 tablets by mouth once daily Prednisone 20 mg tablet Active 40 mg PO DAILY January 06, 2025 12:00am Start: 11-09-2024 End: 11-16-2024 prednisone 10mg tab (TAPER) Dose : 60 mg = 6 tab(s), Oral, qDay, with food, # 23 tab(s), 0 Refill(s) Start Date: 11/09/24 Stop Date: 11/16/24 Status: Ordered Quantity: 23.0 Unit: tab(s) Repeat number: 1 Start: 08-31-2024 take 3 tablets by mo [facility] once daily Prednisone 20 mg tablet Active 60 mg PO DAILY August 31, 2024 1:00am Start: 03-29-2024 End: 04-02-2024 predniSONE 20 mg oral tablet Dose : 60 mg = 3 tab(s), Oral, qDay, X 4 day(s), # 12 tab(s), 0 Refill(s), 04/02/24 11:01:00 AM EDT Start Date: 03/29/24 Stop Date: 04/02/24 Status: Ordered Start: 11-28-2023 End: 12-04-2023 predniSONE 20 mg oral tablet Dose : 20 mg = 1 tab(s), Oral, BID, # 10 tab(s), 0 Refill(s), 12/04/23 9:40:00 AM EDT Start Date: 11/28/23 Stop Date: 12/04/23 Status: Ordered regadenoson 0.4 mg injection (LEXISCAN) (6 sources) Start: 04-13-2024 End: 04-20-2024 regadenoson 0.4 mg injection (LEXISCAN) rosuvastatin calcium 10 mg oral tablet (20 sources) HMG-CoA Reductase Inhibitor Start: 01-19-2025 End: 01-19-2026 take 1 tablet by mouth every week rosuvastatin (CRESTOR) 10 mg tablet Indications: Hypercholesteremia Take 1 tablet by mouth one time a week. 12 tablet 3 01/19/2025 01/19/2026 Active Start: 01-25-2024 End: 11-09-2024 take 1 tablet by mouth once daily at bedtime rosuvastatin (CRESTOR) 10 mg tablet Indications: Uncontrolled type 2 diabetes mellitus with hyperglycemia (HCC) Take 1 tablet by mouth daily at bedtime. 90 tablet 3 07/07/2024 11/09/2024 Discontinued (Course of therapy completed) Start: 01-06-2024 take 1 tablet by lisandro th once daily at bedtime rosuvastatin (CRESTOR) 10 mg tablet Indications: Uncontrolled type 2 diabetes mellitus with hyperglycemia (HCC) Take 1 tablet by mouth daily at bedtime. 90 tablet 3 01/06/2024 Active Start: 10-20-2023 End: 12-31-2023 take 1 tablet by mouth once daily at bedtime rosuvastatin (CRESTOR) 10 mg tablet Indications: Uncontrolled type 2 diabetes mellitus with hyperglycemia (HCC) Take 1 tablet by mouth daily at bedtime. 90 tablet 3 10/20/2023 12/31/2023 Discontinued Start: 06-26-2023 End: 09-10-2023 take 1 tablet by mouth once daily at bedtime rosuvastatin (CRESTOR) 10 mg tablet Indications: Uncontrolled type 2 diabetes mellitus with hyperglycemia (HCC) Take 1 tablet by mouth daily at bedtime. 90 tablet 3 09/10/2023 Active Comment on above: Take 1 tablet by lisandro th daily at bedtime. sacubitril 49 mg / valsartan 51 mg oral tablet (20 sources) Angiotensin 2 Receptor Rebecca Start: 01-15-2025 End: 02-16-2025 take 49-51 mg by mouth twice daily sacubitril-valsa rtan (Entresto) 49-51 MG tablet Take 1 tablet by mouth 2 times daily. 60 tablet 3 01/17/2025 02/16/2025 Active Start: 04-15-2024 End: 01-25-2025 1 tablet, Oral, 2 times johana y, First dose on 01/14/25 at 1415, Contraindicated in combination with BECKY inhibitors. Ensure a minimum of 36 hours between any BECKY inhibitor dose and sacubitril-valsartan. 125 ml sodium chloride 9 mg/ ml prefilled syringe (8 sources) Start: 04-13-2024 End: 04-20-2024 sodium chloride 0.9 % (flush ) 10 mL (BD POSIFLUSH) Start: 04-12-2024 End: 04-12-2024 sodium chloride 0.9 % (flush ) 10 mL (BD POSIFLUSH) Start: 04-12-2024 End: 04-12-2024 sodium chloride 0.9 % (flush ) 10 mL (BD POSIFLUSH) spironolactone 25 mg oral tablet (20 sources) Aldosterone Antagonist Start: 01-14-2025 End: 01-17-2026 take 1 tablet by mouth once daily spironolactone (Aldactone) 25 MG tablet Take 1 tablet (25 mg) by mouth daily. 30 tablet 11 01/17/2025 01/17/2026 Active Start: 04-29-2024 End: 11-09-2024 take 1 tablet by mouth once daily spironolactone (ALDACTONE) 25 mg tablet Indications: Chronic HFrEF (heart failure with reduced ejection fraction) ([facility]) Take 1 tablet by mouth once daily. 90 tablet 10/27/2024 11/09/2024 Discontinued (Course of therapy completed) traZODone hydrochloride 100 mg oral tablet (20 sources) Serotonin Reuptake Inhibitor Start: 01-16-2025 End: 04-27-2025 take 1 tablet by mouth at bedtime as needed for sleep, then take 0.5 tablet by mouth in the morning as needed for sleep traZODone (DESYREL) 100 mg tablet Indications: Mood disorder , Insomnia, unspecified type Take 1 tablet by mouth at bedtime as needed (sleep). Okay to take one-half of a tablet if feeling too sedated in the morning. 30 tablet 2 01/27/2025 04/27/2025 Active Start: 09-05-2024 End: 12-04-2024 take 1 tablet by mouth once daily at bedtime traZODone (DESYREL) 100 mg tablet Indications: Mood disorder (HCC) , Insomnia, unspecified type Take 1 tablet by mouth daily at bedtime. 30 tablet 2 09/05/2024 12/04/2024 Active Start: 11-02-2023 End: 08-13-2024 take 1 tablet by mouth once daily at bedtime traZODone (DESYREL) 100 mg tablet Indications: Mood disorder (HCC) , Insomnia, unspecified type Take 1 tablet by mouth daily at bedtime. 30 tablet 2 02/03/2024 05/03/2024 Active Start: 07-07-2023 End: 08-06-2023 take 1 tablet by mouth once daily at bedtime traZODone (DESYREL) 100 mg tablet Indications: Primary insomnia Take 1 tablet by mouth daily at bedtime. 30 tablet 0 07/07/2023 08/06/2023 Active Start: 03-25-2023 End: 04-24-2023 take 1 tablet by mouth once daily at bedtime traZODone (DESYREL) 100 mg tablet Indications: Primary insomnia Take 1 tablet by mouth daily at bedtime. 30 tablet 0 03/25/2023 04/24/2023 Active Comment on above: Take 1 tablet by lisandro th daily at bedtime. Take 100 mg by mouth daily at bedtime. Completed/Discontinued Medications Medication Drug Class(es) Dates Sig (Normalized) Sig (Original) Acetaminophen (2 sources) Start: 01-13-2025 End: 01-17-2025 take 1 tablet by mouth every six hours as needed for pain and fever acetaminophen (Tylenol) tablet 650 mg albuterol 0.833 mg/ml / ipratropium bromide 0.167 mg/ml inhalation solution (6 sources) Anticholinergic, beta2-Adrenergic Agonist Start: 01-15-2025 End: 01-17-2025 3 mL, Nebulization, 3 times daily, First dose (after last modification) on 01/15/25 at 2000 Start: 01-14-2025 End: 01-15-2025 3 mL, Nebulization, 4 times daily, First dose on 01/14/25 at 0800 Start: 01-14-2025 End: 01-17-2025 3 mL, Nebulization, Every 4 hours PRN, wheezing, Starting on 01/14/25 at 0754 amLODIPine 5 mg oral tablet (12 sources) Dihydropyridine Calcium Channel Rebecca Start: 01-14-2025 End: 01-14-2025 take 2.5 mg by mouth once daily 2.5 mg, Oral, Daily, First dose on 01/14/25 at 0800 Start: 11-24-2024 End: 01-19-2025 take 1 tablet by mouth once daily amLODIPine (NORVASC) 2.5 mg tablet Take 1 tablet by mouth once daily. 11/24/2024 01/19/2025 Discontinued ASA/acetaminophen/caffeine/p ot (GOODY'S HEADACHE POWDER ORAL) (20 sources) End: 10-18-2024 ASA/acetaminophen/caffeine/p ot (GOODY'S HEADACHE POWDER ORAL) Take 1 Packet by mouth as needed (headaches). 10/18/2024 Discontinued ASA/acetaminophe n/caffeine/pot (GOODY'S HEADACHE POWDER ORAL) Take 1 Packet by mouth as needed (headaches). Active ascorbic acid 500 mg chewable tablet (1 source) Vitamin C End: 06-26-2023 take 500 mg by mouth once daily Ascorbic Acid (VITAMIN C) 500 mg chew Take 500 mg by mouth once daily. 0 06/26/2023 Discontinued (Course of therapy completed) Comment on above: Take 500 mg by mouth once daily. azithromycin 250 mg oral tablet (8 sources) Macrolide Antimicrobial Start: 12-05-2024 End: 01-19-2025 take 1 tablet by mouth once daily azithromycin (ZITHROMAX) 250 mg tablet Take 1 tablet by mouth once daily. 12/05/2024 01/19/2025 Discontinued benzonatate 100 mg oral capsule (20 sources) Non-narcotic Antitussive Start: 08-31-2023 End: 09-10-2023 take 2 capsules by mouth every eight hours as needed benzonatate (TESSALON PERLES) 100 mg capsule Take 2 capsules by mouth three times a day as needed. 30 capsule 0 08/31/2023 09/10/2023 Discontinued Start: 06-30-2023 End: 09-10-2023 take 2 capsules by mouth every eight hours as needed for cough benzonatate (TESSALON PERLES) 100 mg capsule Indications: Chronic cough Take 2 capsules by mouth every 8 hours as needed for cough (swallow capsule, do not chew.). 60 capsule 0 06/30/2023 09/10/2023 Discontinued take 1 capsule by [facility] every eight hours as needed Benzonatate 200 mg capsule Take 200 mg by mouth three times a day as needed. Active End: 04-19-2024 take 1 capsule by mouth every eight hours as needed benzonatate (TESSALON PERLE) 100 mg capsule Take 100 mg by mouth three times a day as needed for cough. 0 04/19/2024 Discontinued (Side Effects) Comment on above: Take 2 capsules by m outh every 8 hours as needed for cough (swallow capsule, do not chew.). Take 2 capsules by m outh three times a day as needed. betamethasone 3 mg/ml / betamethasone acetate 3 mg/ml injectable suspension (3 sources) Corticosteroid Start: 02-22-2025 End: 02-22-2025 betamethasone acetate-betamethasone sodium phosphate 3 mg injection (CELESTONE) Start: 02-22-2025 End: 02-22-2025 3 mg, Injection - FOR ORTHO USE ONLY, ONCE, 1 dose, Starting on Thu02/22/25 at 1906, Until Thu02/22/25 at 1906 Start: 05-08-2023 End: 05-08-2023 betamethasone acetate-betame thasone sodium phosphate 3 mg injection (CELESTONE) 2 ml bumetanide 0.25 mg/ml injection (2 sources) Loop Diuretic Start: 01-14-2025 End: 01-16-2025 take 1 mg intravenously every twelve hours 1 mg, IntraVENous, Administer over 1 Minutes, Every 12 hours, First dose on 01/14/25 at 1800 cetirizine hydrochloride 5 mg oral tablet (4 sources) Histamine-1 Receptor Antagonist Start: 01-14-2025 End: 01-17-2025 5 mg, Oral, Daily, First dose on 01/14/25 at 0900, Substituted for Loratadine (CLARITIN). Start: 02-03-2024 End: 03-04-2024 take 1 tablet by mouth once daily cetirizine (ZYRTEC) 10 mg tablet Indications: Seasonal allergies Take 1 tablet by mouth once daily. 30 tablet 0 02/03/2024 03/04/2024 Active cholecalciferol 9.52 unt/ml / glucose 357 mg/ml oral gel (2 sources) Vitamin D Start: 01-13-2025 End: 01-17-2025 0.5 ml dulaglutide 3 mg/ml auto-injector (20 sources) GLP-1 Receptor Agonist Start: 11-02-2024 End: 03-01-2025 dulaglutide (TRULICITY) 1.5 mg/0.5 mL pen injector Indications: Uncontrolled type 2 diabetes mellitus with hyperglycemia (HCC) , Primary hypertension , Coronary artery disease involving [place] coronary artery of [place] heart without angina pectoris , BMI 40.0-44.9, adult (HCC) Inject 1.5 mg subcutaneously one time a week. Monitor bs closely and keep food log 2 mL 2 11/02/2024 03/01/2025 Discontinued Start: 12-29-2023 End: 01-09-2025 dulaglutide (TRULICITY) 0.75 mg/0.5 mL pen injector Indications: Uncontrolled type 2 diabetes mellitus with hyperglycemia (HCC) , Primary hypertension , Coronary artery disease involving [place] coronary artery of [place] heart without angina pectoris , BMI 40.0-44.9, adult (HCC) Inject 0.75 mg subcutaneously one time a week. 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 Monitor bs closely and keep food log 2 mL 0 10/20/2023 11/19/2023 Discontinued Comment on above: Inject 0.75 mg subcu taneously one time a week. 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 90 tablet 10/11/2024 01/19/2025 Discontinued 0.4 ml enoxaparin sodium 100 mg/ml prefilled syringe (2 sources) Low Molecular Weight Heparin Start: 2024 End: 2024 inject 40 mg by subcutaneous injection every twenty-four hours 40 mg, SubCUTAneous, Every 24 hours, First dose on Thu01/13/25 at 2355, Indication of Use: Prophylaxis-DVT/PE 60 actuat formoterol fumarate 0.005 mg/actuat / mometasone furoate 0.2 mg/actuat metered dose inhaler (2 sources) Corticosteroid, beta2-Adrenergic Agonist Start: 2024 End: 2024 take 2 puff(s) by mouth twice daily 2 puff, Inhalation, 2 times daily, First dose on 01/14/25 at 0800, Rinse mouth with water after use to reduce aftertaste and incidence of candidiasis. Do not swallow. glucagon (rdna) 1 mg injection (2 sources) Antihypoglycemic Agent Start: 2024 End: 2024 50 ml glucose 50 mg/ml injection (4 sources) Start: 2024 End: 2024 Start: 01-13-2025 End: 01-17-2025 1 ml hydrALAZINE hydrochloride 20 mg/ml injection (2 sources) Arteriolar Vasodilator Start: 01-14-2025 End: 01-17-2025 take 10 mg intravenously every six hours as needed for hypertension 10 mg, IntraVENous, Every 6 hours PRN, high blood pressure, If systolic blood pressure greater than 160, Starting on 01/14/25 at 0749 hydrocortisone 0.01 mg/mg topical ointment (2 sources) Corticosteroid Start: 01-15-2025 End: 01-17-2025 Topical, 2 times daily PRN, rash, irritation, abdomen wall, Starting on 01/15/25 at 1405 Inhalational Spacing Device (1 source) Start: 04-27-2023 End: 04-27-2023 Inhalational Spacing Device Indications: Mild intermittent asthma, unspecified whether complicated 1 Device one time only for 1 dose. 1 Each 0 04/27/2023 04/27/2023 Comment on above: 1 Device one time on ly for 1 dose. Insulin Lispro (Humalog) injection 0-12 Units (2 sources) Start: 01-15-2025 End: 01-17-2025 Insulin Lispro (Humalog) injection 0-12 Units 10 ml lidocaine hydrochloride 10 mg/ml injection (3 sources) Antiarrhythmic, Amide Local Anesthetic Start: 02-22-2025 End: 02-22-2025 lidocaine (PF) 10 mg/mL (1 %) 0.5 mL injection (XYLOCAINE) Start: 02-22-2025 End: 02-22-2025 0.5 mL, Injection - FOR ORTH O USE ONLY, ONCE, 1 dose, Starting on Thu02/22/25 at 1906, Until Thu02/22/25 at 1906 Start: 05-08-2023 End: 05-08-2023 lidocaine (PF) 10 mg/mL (1 % ) 0.5 mL injection (XYLOCAINE) mecobalamin (1 source) End: 06-26-2023 mecobalamin (B12 ACTIVE ORAL) Take by mouth. 0 06/26/2023 Discontinued (Course of therapy completed) Comment on above: Take by mouth. melatonin 3 mg oral tablet (2 sources) Start: 01-15-2025 End: 01-17-2025 take 3 mg by mouth once daily as needed for sleep 3 mg, Oral, Nightly PRN, sleep, Starting on 01/15/25 at 2119 mupirocin 0.02 mg/mg topical ointment (4 sources) RNA Synthetase Inhibitor Antibacterial Start: 06-30-2023 End: 07-07-2023 mupirocin (BACTROBAN) 2 % ointment Indications: Skin infection Apply 1 application to affected area three times a day for 7 days. 22 g 0 06/30/2023 07/07/2023 Comment on above: Apply 1 application to affected area three times a day for 7 days. 1 ml naloxone hydrochloride 0.4 mg/ml injection (2 sources) Opioid Antagonist Start: 01-14-2025 End: 01-17-2025 0.4 mg, IntraVENous, PRN, opioid reversal, Starting on 01/14/25 at 1648, For oversedation/diffic ult to rouse, pinpoint pupils, RR ondansetron ODT (Zofran-ODT) disintegrating tablet 4 mg (2 sources) Start: 01-13-2025 End: 01-17-2025 take 1 tablet by mouth every eight hours as needed for nausea and vomiting ondansetron ODT (Zofran-ODT) disintegrating tablet 4 mg oxyCODONE hydrochloride 5 mg oral tablet (2 sources) Opioid Agonist Start: 01-14-2025 End: 01-17-2025 take 1 tablet by mouth every eight hours as needed for pain and pain 5 mg, Oral, Every 8 hours PRN, moderate pain (4-6), severe pain (7-10), Starting on 01/14/25 at 1648 pantoprazole 40 mg delayed release oral tablet (20 sources) Proton Pump Inhibitor Start: 03-25-2023 End: 09-10-2023 take 1 tablet by mouth once daily pantoprazole DR (PROTONIX) 40 mg tablet Indications: Gastroesophageal reflux disease without esophagitis Take 1 tablet by mouth once daily. 30 tablet 0 03/25/2023 09/10/2023 Discontinued Comment on above: Take 1 tablet by [facility] once daily. perflutren protein A microsphere (Optison) 3 mL in sodium chloride (PF) 0.9 % 10 mL IV (2 sources) Start: 01-13-2025 End: 01-14-2025 0-10 mL, IntraVENous, IMG once PRN, other, Suboptimal echo image, Starting on Thu01/13/25 at 2351, For 1 dose, CV Procedural Medications, Administer via slow IVP for suboptimal echocardiogram enhancement. May administer as divided doses to reach optimal image enhancement polyethylene glycol 3350 [id number] mg powder for oral solution (2 sources) Osmotic Laxative Start: 01-13-2025 End: 01-17-2025 take 17 g by mouth every twenty-four hours as needed for constipation 17 g, Oral, Daily PRN, constipation, Starting on Thu01/13/25 at 2351, 1st line for treatment of constipation - give scheduled if no bowel movement in past 24 hours. microencapsulated potassium chloride 10 meq extended release oral tablet (2 sources) Start: 01-15-2025 End: 01-15-2025 20 mEq, Oral, Once, On Thu01/15/25 at 0930, For 1 dose, Best given with food and plenty of water to minimize gastric irritation. Do not crush or chew. tiZANidine 4 mg oral tablet (2 sources) Central alpha-2 Adrenergic Agonist Start: 01-13-2025 End: 01-17-2025 take 1 tablet by mouth every six hours as needed 4 mg, Oral, Every 6 hours PRN, muscle spasms, Starting on Thu01/13/25 at 2353 Problems Active Problems Problem Classification Problem Date Documented Date Episodic/Chronic Administrative/social admission (4 sources) Patient encounter status; Translations: [Persons encountering health services in other specified circumstances] Episodic Allergic reactions (2 sources) Contact dermatitis; Translations: [Unspecified contact dermatitis, unspecified cause] Onset: 01-11-2025 01-06-2025 Episodic Anxiety disorders (10 sources) Anxiety; Translations: [Anxiety disorder, unspecified] Onset: 01-27-2025 11-02-2023 Chronic Asthma (9 sources) Mild intermittent asthma; Translations: [Mild intermittent asthma, uncomplicated] 04-27-2023 Chronic Cardiac dysrhythmias (20 sources) Atrial arrhythmia; Translations: [Unspecified atrial fibrillation] Onset: 04-14-2024 04-14-2024 Chronic Cataract (20 sources) Nuclear sclerotic cataract; Translations: [Age-related nuclear cataract, bilateral] Onset: 10-23-2023 10-23-2023 Chronic Conduction disorders (20 sources) EKG: left bundle branch block; Translations: [Left bundle-branch block, unspecified] Onset: 09-04-2014 09-04-2014 Chronic Congestive heart failure; nonhypertensive (20 sources) Acute systolic heart failure; Translations: [Acute systolic (congestive) heart failure] Onset: 04-13-2024 Resolved: 01-19-2025 04-13-2024 Chronic Congestive heart failure; nonhypertensive (1 source) Congestive heart failure; nonhypertensive Onset: 05-11-2024 Coronary atherosclerosis and other heart disease (20 sources) Coronary arteriosclerosis; Translations: [Atherosclerotic heart disease of [place] coronary artery without angina pectoris] Onset: 09-04-2014 09-04-2014 Chronic Diabetes mellitus with complications (20 sources) Type 2 diabetes mellitus in obese; Translations: [Type 2 diabetes mellitus with other specified complication] Onset: 09-23-2023 Chronic Diabetes mellitus without complication (20 sources) Diabetes mellitus type 2 without retinopathy; Translations: [Type 2 diabetes mellitus without complications] Onset: 06-02-2024 10-23-2023 Chronic Diabetes mellitus without complication (4 sources) Hyperglycemia; Translations: [Hyperglycemia, unspecified] 08-31-2023 Episodic Disorders of lipid metabolism (20 sources) Hyperlipidemia; Translations: [Hyperlipidemia, unspecified] Onset: 06-26-2023 Resolved: 01-19-2025 06-26-2023 Chronic Esophageal disorders (1 source) Gastroesophageal reflux disease without esophagitis; Translations: [Gastro-esophageal reflux disease without esophagitis] Chronic Essential hypertension (20 sources) Essential hypertension; Translations: [Essential (primary) hypertension] Onset: 06-26-2023 Resolved: 01-19-2025 06-26-2023 Chronic Immunizations and screening for infectious disease (3 sources) Viral screening status; Translations: [Encounter for screening for other viral diseases] Episodic Intracranial injury (2 sources) Concussion injury of body structure; Translations: [Concussion] 12-23-2024 Episodic Lymphadenitis (1 source) Posterior auricular lymphadenopathy; Translations: [Localized enlarged lymph nodes] 11-09-2023 Episodic Miscellaneous mental health disorders (3 sources) Primary insomnia; Translations: [Primary insomnia] Chronic Mood disorders (20 sources) Bipolar I disorder; Translations: [Bipolar disorder, unspecified] Onset: 11-02-2023 Chronic Osteoarthritis (3 sources) Bilateral osteoarthritis of knees; Translations: [Bilateral primary osteoarthritis of knee] 07-07-2023 Chronic Other and ill-defined heart disease (1 source) Systolic dysfunction; Translations: [Other ill-defined heart diseases] 04-12-2024 Chronic Other and ill-defined heart disease (1 source) Other ill-defined heart diseases; Translations: [Systolic dysfunction without heart failure] Onset: 06-02-2024 Chronic Other and unspecified benign neoplasm (4 sources) Lipoma of skin and subcutaneous tissue of neck; Translations: [Benign lipomatous neoplasm of skin and subcutaneous tissue of head, face and neck] 10-13-2024 Episodic Other connective tissue disease (1 source) Trigger finger of left hand; Translations: [Trigger finger, unspecified finger] Episodic Other connective tissue disease (2 sources) Dupuytren's disease of palm of left hand; Translations: [Palmar fascial fibromatosis [Dupuytren]] 05-08-2023 Episodic Other connective tissue disease (1 source) Ganglion of hand; Translations: [Ganglion, unspecified site] 05-08-2023 Episodic Other connective tissue disease (1 source) Impingement syndrome of left shoulder region; Translations: [Impingement syndrome of left shoulder] 06-18-2023 Episodic Other connective tissue disease (1 source) Pain of left hand; Translations: [Pain in left hand] 12-31-2023 Episodic Other connective tissue disease (6 sources) Pain in right hand; Translations: [Pain in right hand] 01-19-2025 Episodic Other connective tissue disease (2 sources) Pain in right hand; Translations: [Pain of right hand] Onset: 01-19-2025 Episodic Other injuries and conditions due to external causes (2 sources) Closed injury of head; Translations: [Unspecified injury of head, initial encounter] 12-23-2024 Episodic Other injuries and conditions due to external causes (1 source) Unspecified injury of head, initial encounter; Translations: [Unspecified injury of head, initial encounter] Onset: 12-28-2024 Episodic Other lower respiratory disease (2 sources) Cough; Translations: [Cough in adult patient] 05-08-2023 Episodic Other lower respiratory disease (2 sources) Dyspnea on exertion; Translations: [Other forms of dyspnea] 06-26-2023 Episodic Other lower respiratory disease (2 sources) Chronic cough; Translations: [Chronic cough] 06-30-2023 Episodic Other nutritional; endocrine; and metabolic disorders (20 sources) Morbid obesity; Translations: [Morbid (severe) obesity due to excess calories] Onset: 04-14-2024 Chronic Other nutritional; endocrine; and metabolic disorders (20 sources) Body mass index 40+ - severely obese; Translations: [Morbid (severe) obesity due to excess calories] Onset: 05-11-2023 Resolved: 01-19-2025 05-11-2023 Chronic Other nutritional; endocrine; and metabolic disorders (1 source) Severe obesity; Translations: [Class 3 severe obesity due to excess calories with serious comorbidity and body mass index (BMI) of 45.0 to 49.9 in adult ([facility])] 10-18-2024 Chronic Other nutritional; endocrine; and metabolic disorders (1 source) Body mass index (BMI) 45.0-49.9, adult; Translations: [Class 3 severe obesity due to excess calories with serious comorbidity and body mass index (BMI) of 45.0 to 49.9 in adult ([facility])] Onset: 09-04-2014 Chronic Other nutritional; endocrine; and metabolic disorders (1 source) Morbid (severe) obesity due to excess calories; Translations: [Class 3 severe obesity due to excess calories with serious comorbidity and body mass index (BMI) of 45.0 to 49.9 in adult ([facility])] Onset: 09-04-2014 Chronic Other nutritional; endocrine; and metabolic disorders (1 source) Hypocalcemia; Translations: [Hypocalcemia] Onset: 04-13-2024 Chronic Other nutritional; endocrine; and metabolic disorders (1 source) Hypomagnesemia; Translations: [Hypomagnesemia] Onset: 04-13-2024 Chronic Other skin disorders (7 sources) Mass of neck; Translations: [Localized swelling, mass and lump, neck] 10-18-2024 Episodic Other skin disorders (2 sources) Bilateral localized swelling of lower legs; Translations: [Localized swelling, mass and lump, lower limb, bilateral] 01-14-2025 Episodic Other skin disorders (2 sources) Localized swelling, mass and lump, lower limb, bilateral; Translations: [Localized swelling, mass and lump, lower limb, bilateral] Onset: 01-13-2025 Episodic Other upper respiratory disease (1 source) Seasonal allergy; Translations: [Other seasonal allergic rhinitis] 02-03-2024 Chronic Other upper respiratory disease (2 sources) Acute bronchospasm; Translations: [Acute bronchospasm] 09-08-2024 Episodic Other upper respiratory infections (4 sources) Chronic sinusitis; Translations: [Chronic sinusitis, unspecified] 08-31-2023 Chronic Other upper respiratory infections (2 sources) Upper respiratory infection; Translations: [Acute upper respiratory infection, unspecified] 09-08-2024 Episodic Residual codes; unclassified (5 sources) Obstructive sleep apnea syndrome; Translations: [Obstructive sleep apnea (adult) (pediatric)] 06-26-2023 Chronic Residual codes; unclassified (1 source) Finding related to sleep; Translations: [Sleep apnea, unspecified] 07-07-2023 Chronic Residual codes; unclassified (1 source) Obstructive sleep apnea (adult) (pediatric); Translations: [ELBERT (obstructive sleep apnea)] Onset: 10-27-2024 Chronic Residual codes; unclassified (1 source) Postoperative state; Translations: [Other specified postprocedural states] 06-12-2023 Episodic Residual codes; unclassified (8 sources) Insomnia; Translations: [Insomnia, unspecified] 11-02-2023 Episodic Residual codes; unclassified (1 source) Bilateral lower limb edema; Translations: [Localized edema] 04-11-2024 Episodic Residual codes; unclassified (20 sources) Noncompliance with treatment; Translations: [Non-compliant patient] 11-02-2024 Episodic Residual codes; unclassified (1 source) Insomnia, unspecified; Translations: [Insomnia, unspecified type] Onset: 01-27-2025 Episodic Skin and subcutaneous tissue infections (3 sources) Infection of skin; Translations: [Local infection of the skin and subcutaneous tissue, unspecified] 06-30-2023 Episodic Substance-related disorders (20 sources) Cocaine dependence in remission; Translations: [Cocaine dependence, in remission] Onset: 09-10-2023 09-10-2023 Chronic Thyroid disorders (20 sources) Hypothyroidism; Translations: [Hypothyroidism, unspecified] Onset: 11-09-2024 04-27-2023 Chronic Unclassified (1 source) Obesity, Class III, BMI 40-49.9 (morbid obesity); Translations: [Obesity, Class III, BMI 40-49.9 (morbid obesity)] Onset: 01-19-2025 Unclassified (1 source) Cough, unspecified type; Translations: [Cough, unspecified type] Onset: 10-18-2024 Unclassified (1 source) Class 3 severe obesity due to excess calories with serious comorbidity and body mass index (BMI) of 45.0 to 49.9 in adult (HCC); Translations: [Class 3 severe obesity due to excess calories with serious comorbidity and body mass index (BMI) of 45.0 to 49.9 in adult (HCC)] Onset: 09-04-2014 Viral infection (2 sources) Viral disease; Translations: [Viral infection, unspecified] 09-08-2024 Episodic Past or Other Problems Problem Classification Problem Date Documented Date Episodic/Chronic Blindness and vision defects (20 sources) Bilateral hyperopia of eyes; Translations: [Hypermetropia, bilateral] Onset: 10-23-2023 10-23-2023 Episodic Coronary atherosclerosis and other heart disease (2 sources) Presence of coronary angioplasty implant and graft; Translations: [S/P coronary artery stent placement] Onset: 09-04-2014 Episodic Diseases of mouth; excluding dental (3 sources) Glossitis; Translations: [Glossitis] Onset: 04-11-2024 04-11-2024 Episodic Fluid and electrolyte disorders (1 source) Hypokalemia; Translations: [Hypokalemia] Onset: 04-13-2024 Episodic Genitourinary symptoms and ill-defined conditions (6 sources) Increased frequency of urination; Translations: [Frequency of micturition] Onset: 09-23-2023 08-31-2023 Episodic Mycoses (4 sources) Candidiasis of mouth; Translations: [Candidal stomatitis] Onset: 10-18-2024 10-18-2024 Episodic Other aftercare (2 sources) 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; Translations: [Type 2 diabetes mellitus with diabetic microalbuminuria, with long-term current use of insulin (HCC)] Onset: 09-23-2023 Episodic Other and unspecified benign neoplasm (1 source) Benign lipomatous neoplasm of skin and subcutaneous tissue of head, face and neck; Translations: [Lipoma of neck] Onset: 11-09-2024 Episodic Other circulatory disease (1 source) Other specified symptoms and signs involving the circulatory and respiratory systems; Translations: [Cardiac LV ejection fraction 10-20%] Onset: 04-13-2024 Episodic Other lower respiratory disease (1 source) Shortness of breath; Translations: [Shortness of breath] Onset: 10-03-2024 Episodic Other nutritional; endocrine; and metabolic disorders (20 sources) Obesity; Translations: [Obesity, unspecified] Onset: 09-04-2014 Resolved: 01-19-2025 09-04-2014 Chronic Other nutritional; endocrine; and metabolic disorders (20 sources) Obesity caused by energy imbalance; Translations: [Other obesity due to excess calories] Onset: 11-17-2016 Resolved: 01-19-2025 11-17-2016 Chronic Other screening for suspected conditions (not mental disorders or infectious disease) (2 sources) Echocardiogram abnormal; Translations: [Abnormal findings on diagnostic imaging of heart and coronary circulation] Onset: 06-02-2024 04-12-2024 Episodic Other skin disorders (2 sources) Localized swelling, mass and lump, neck; Translations: [Neck mass] Onset: 10-18-2024 Episodic Residual codes; unclassified (20 sources) Tobacco user; Translations: [Tobacco use] Onset: 09-04-2014 09-04-2014 Episodic Residual codes; unclassified (1 source) Tobacco use; Translations: [Tobacco abuse] Onset: 09-04-2014 Episodic Residual codes; unclassified (1 source) Localized edema; Translations: [Bilateral lower extremity edema] Onset: 04-11-2024 Episodic Schizophrenia and other psychotic disorders (20 sources) Schizoaffective disorder, bipolar type; Translations: [Schizoaffective disorder, bipolar type] Onset: 09-10-2023 Resolved: 11-02-2023 09-10-2023 Chronic Superficial injury; contusion (4 sources) Contusion of left elbow; Translations: [Contusion of left elbow, initial encounter] Onset: 03-28-2024 03-28-2024 Episodic Syncope (1 source) Syncope and collapse; Translations: [Syncope, unspecified syncope type] Onset: 04-13-2024 Episodic Results Test Name Value Interpretation Reference Range Facility [facility] 03-02-2025 [facility] Telephone ([facility]isters) VENKAT MARSH ([id number]) 1965 M Date Time Provider Department 03/02/25 NIKOLAI NAZARIO JUDSON During your visit today, we recorded the following information about you: Frieda Garza 03/02/2025 4:08 PM Signed Patient is requesting testosterone testing. He wanted to know what he needs to do to begin the process. Patient would like a call with an update once available. Frieda Garza, Housekeeping Worker March 02, 2025 4:08 PM Frieda Garza 03/03/2025 11:10 AM Signed Patient has been made aware of questionnaire being sent over. Frieda Garza Housekeeping Worker March 03, 2025 11:10 AM Allergies As of Date: 03/02/2025 Noted Allergy Reaction AMOXICILLIN-POT CLAVULANATE 12/23/2023 10 - Anaphylaxis 7 - Swelling DOXYCYCLINE 11/09/2024 16 - Unknown LISINOPRIL 04/24/2023 3 - Cough SULFAMETHOXAZOLE-TRIM ETHOPRIM 10/20/2009 2 - Rash 4 - Hives 7 - Swelling TRIMETHOPRIM 09/04/2023 7 - Swelling Date Reviewed: 02/22/2025 Reviewed by: Bibiana Lozoya MA - Fully Assessed Reason for Visit: Orders [[id number]] Cmt: Testosterone testing Prescriptions as of 03/03/2025 - dulaglutide (TRULICITY) 3 mg/0.5 mL pen injector Inject 3 mg subcutaneously one time a week. - albuterol HFA (PROVENTIL HFA, VENTOLIN HFA) 90 mcg/actuation inhaler Inhale 2 puffs as instructed every 4 hours as needed for wheezing/shortness of breath. - metFORMIN (GLUCOPHAGE) 1,000 mg tablet Take 1 tablet by mouth two times a day. - levothyroxine (SYNTHROID) 125 mcg tablet Take 1 tablet by mouth daily before breakfast. - insulin glargine 100 unit/mL (3 mL) Inject 20 Units subcutaneously daily at bedtime. - metoprolol succinate ER (TOPROL XL) 25 mg 24 hr tablet Take 1 tablet by mouth once daily. - mirtazapine (REMERON) 15 mg tablet Take 1.5 tablets by mouth daily at bedtime. - traZODone (DESYREL) 100 mg tablet Take 1 tablet by mouth at bedtime as needed (sleep). Okay to take one-half of a tablet if feeling too sedated in the morning. - spironolactone (ALDACTONE) 25 mg tablet Take 25 mg by mouth once daily. - furosemide (LASIX) 20 mg tablet Take 40 mg by mouth once daily. - loratadine (CLARITIN) 10 mg tablet Take 10 mg by mouth once daily. - Benzonatate 200 mg capsule Take 200 mg by mouth three times a day as needed. - dapagliflozin propanediol (FARXIGA) 10 mg tablet Take by mouth daily with breakfast. - sacubitril-valsartan (ENTRESTO) 49-51 mg tablet Take 1 tablet by mouth two times a day. - diphenhydrAMINE (BANOPHEN) 25 mg capsule Take 25 mg by mouth three times a day as needed. - rosuvastatin (CRESTOR) 10 mg tablet Take 1 tablet by mouth one time a week. - ezetimibe (ZETIA) 10 mg tablet Take 1 tablet by mouth once daily. - fluticasone (FLONASE) 50 mcg/actuation nasal spray Use 1 spray in each nostril daily at bedtime. - nicotine (NICODERM CQ) 21 mg/24 hr Apply 1 patch as directed every 24 hours. - nicotine polacrilex (NICORETTE) 4 mg gum Take 1 each by mouth as needed. - predniSONE (DELTASONE) 20 mg tablet Take 40 mg by mouth once daily. - aspirin, enteric coated (ASPIRIN, ENTERIC COATED) 81 mg EC tablet Take 1 tablet by mouth once daily. - BD SAFETYGLIDE INSULIN SYRINGE 0.5 mL 30 gauge x 5/16 syrg Inject 1 Each subcutaneously every 24 hours. Give with each insulin administration. - Insulin Whitman, Disposable, (PEN NEEDLE) 32 gauge x 5/32 Inject 1 Each subcutaneously every 24 hours. Give with each insulin administration. - magnesium, aluminum hydroxide (MYLANTA ORAL) Take 5 mL by mouth two times a day as needed (heartburn). Meds Comments as of 10/23/2023: 10/23/23 The medications are managed by this patient by: PATIENT OPHELIA Crooks Problem List As Of Date 03/02/2025 Noted Resolved CAD (coronary artery disease) [I25.10] 09/04/2014 S/P coronary artery stent placement [Z95.5] 09/04/2014 Left bundle branch block (LBBB) on electrocardi*09/04/20 14 H/O myocardial infarction, greater than 8 weeks*09/04/2014 Tobacco abuse [Z72.0] 09/04/2014 Obesity [E66.9] 09/04/2014 01/19/2025 Status post insertion of drug-eluting stent int*11/17/2016 Non morbid obesity due to excess calories [E66.*11/17/2016 01/19/2025 Obesity, Class III, BMI >= 40 [E66.813] 05/11/2023 01/19/2025 Hypercholesteremia [E78.00] HTN (hypertension) [I10] Schizoaffective disorder, bipolar type (HCC) [F*09/10/2023 11/02/2023 Cocaine dependence in remission ([facility]) [F14.21] 09/10/2023 Hypothyroidism [E03.9] Diabetes mellitus ([facility]) [E11.9] Cataract, nuclear sclerotic, both eyes [H25.13] 10/23/2023 Hyperopia of both eyes [H52.03] 10/23/2023 Regular astigmatism of both eyes [H52.223] 10/23/2023 Presbyopia of both eyes [H52.4] 10/23/2023 Mood disorder ([facility]) [F39] 11/02/2023 Acute systolic HF (heart failure) ([facility]) [I50.21]04/13/2024 01/19/2025 Acute on chronic systoli (more content not included)... Normal [facility] XR Hand - right PA and Later al and Obliqueon 02-25-2025 IMPRESSION: No acute bone abnormality. Degenerative changes as described. Tearoom Host/Hostess: PSCB Transcribe Date/Time: Feb 25 2025 4:54P Dictated by : AYLEEN MCMAHON MD This examination was interpreted and the report reviewed and electronically signed by: AYLEEN MCMAHON MD on Feb 25 2025 4:55PM [facility] * * *Final Report* * * DATE OF EXAM: Feb 22 2025 9:47AM RHX [id number] - XR HAND 3V PA/LAT/OBL RT / PROCEDURE REASON: Pain of right hand * * * * Physician Interpretation * * * * EXAMINATION: XR HAND 3V PA/LAT/OBL RT CLINICAL HISTORY: Pain right hand in 1st metacarpal region after fall out of bed 1 month ago. COMPARISON: None. FINDINGS: No evidence of fracture, dislocation, or destructive process. 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 Degenerative changes of the radiocarpal, triscaphe, first MCP, and several IP joints. _ [facility] Provider, Garland lynch [employer] - 02/25/2025 * * *Final Report* * * DATE OF EXAM: Feb 22 2025 9:47AM RHX [id number] - XR HAND 3V PA/LAT/OBL RT / PROCEDURE REASON: Pain of right hand * * * * Physician Interpretation * * * * EXAMINATION: XR HAND 3V PA/LAT/OBL RT CLINICAL HISTORY: Pain right hand in 1st metacarpal region after fall out of bed 1 month ago. COMPARISON: None. FINDINGS: No evidence of fracture, dislocation, or destructive process. 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 Degenerative changes of the radiocarpal, triscaphe, first MCP, and several IP joints. _ IMPRESSION IMPRESSION: No acute bone abnormality. Degenerative changes as described. Tearoom Host/Hostess: PSCB Transcribe Date/Time: Feb 25 2025 4:54P Dictated by : AYLEEN MCMAHON MD This examination was interpreted and the report reviewed and electronically signed by: AYLEEN MCMAHON MD on Feb 25 2025 4:55PM EST [facility] XR Hand - right PA and Later al and ObliqueOrdered By: [facility] Provider on 02-25-2025 [facility] CNOVon 02-22-2025 CNOV Office Visit (ORMMMB ) VENKAT MARSH ([id number]) 1965 M Date Time Provider Department 02/22/25 10:30 [facility] During your visit today, we recorded the following information about you: Pulse Weight Height 76/minute 130.6 kg 1.702 m Sandra Samuels RN 03/02/2025 7:06 PM Signed Prepared Celestone 6mg/ml Lidocaine 1% injection as directed by Dr. Talita Ross and handed directly to Dr. Talita Ross for administration. Sandra Samuels RN February 22, 2025 11:21 AM Talita Ross MD 03/02/2025 7:06 PM Signed Talita Ross MD Hand AND Upper Extremity Surgery [address] [place], [facility] [address] [address] OUTPATIENT ESTABLISHED PATIENT VISIT SERVICE DATE: 02/22/2025 HISTORY OF PRESENT ILLNESS Venkat Marsh presents to the office for right thumb pain. Patient is known to my office, seen previously for Dupuytren's nodules. Patient does recall a specific single traumatic event. He hit the right hand at night because he thinks he sleep walks. This was a couple weeks ago. 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 No Yes, Provider notified Pain Level 6 Pain Location Finger Description Stabbing;Throbbing Duration Amount of Time 2 Duration Units Months Frequency Continuous PAST MEDICAL HISTORY Past medical, surgical, family, and social histories have been reviewed and updated with the patient today and are located elsewhere in the medical record. ALLERGIES ALLERGIES Allergen Reactions Amoxicillin-Pot Cla* Anaphylaxis, Swelling Doxycycline Unknown Lisinopril Cough Sulfamethoxazole-Tr* Rash, Hives, Swelling Trimethoprim Swelling PHYSICAL EXAMINATION: VITAL SIGNS: Pulse 76 Ht 5' 7 (1.70m) Wt 288 lb (130.6kg) SpO2 92% BMI 45.10 kg/(m2). GENERAL: The patient is awake, alert, and oriented with appropriate mood and affect. SKIN: The skin over the right hand shows no rash, lesion or erythema, and that is comparable to the contralateral hand. INSPECTION/PALPATION: There is no gross asymmetry compared to the contralateral hand. There is localized swelling about the thumb CMC joint, with obvious shoulder sign deformity. There is no palpable joint effusion. TENDERNESS: There is tenderness to palpation about the right CMC joint with a positive grind test. Hyperextension of the right thumb reproduces the pain. There is no tenderness at the STT joint. There is no tenderness with palpation over the 1st dorsal compartment. ROM: There is limited range of motion of the thumb, and there is an adducted posture to the thumb. LIGAMENTS: There is no compensatory hyperextension of the MP joint. MUSCLE: Leaded Glass Installer and pinch strength are decreased due to pain. NEURO: The patient reports no decreased sensation to the thumb. VASCULAR: Strong radial pulse. Excellent capillary refill to all digits. IMAGING PER MY INTERPRETATION: 3 views of the right hand from outpatient radiology today were reviewed and demonstrate thumb CMC arthritis, E[place] stage III ASSESSMENT AND PLAN (M79.641) Pain of right hand (primary encounter diagnosis) (M18.11) Osteoarthritis of right thumb I reviewed the X-rays with the patient. Discussed the treatment algorithm for thumb CMC arthritis which includes hand-based thumb braces, topical anti-inflammatories, oral anti-inflammatories, steroid injections and surgical intervention in late stages. Patient wishes to try an injection today. Risks of corticosteroid injection were discussed including self-limited post-injection flare, risk of transient blood glucose elevation, risk of self-limited facial flushing, risk of skin atrophy or depigmentation and risk of infection. Activities and restrictions after injection were also discussed. Patient may perform any ADLs after injection. I recommend no increase in baseline activity while the lidocaine is in effect. It could take 3-5 days for maximal steroid effect. Patient is higher risk for side effects due to DM. Patient advised to monitor symptoms for the next 3 days and allow 2 weeks for maximal effect. Patient will contact me if symptoms are not improved after 2 weeks from the injection for further workup and management. Small Joint Arthro/Inj: R thumb CMC 02/22/2025 7:06 PM The procedure site was prepped in the usual sterile fashion. Medications: 3 mg betamethasone acetate-betamethasone sodium phosphate 6 mg/mL Anesthetics: 0.5 mL lidocaine (PF) 10 mg/mL (1 %) Outcome: tolerated well, no immediate complications Post-injection instructions were reviewed with (more content not included)... [facility] Small Joint Arthro/Inj: R th umb CMCon 02-22-2025 Talita Ross MD 03/02/2025 7:06 PM Small Joint Arthro/Inj: R thumb CMC 02/22/2025 7:06 PM The procedure site was prepped in the usual sterile fashion. Medications: 3 mg betamethasone acetate-betamethasone sodium phosphate 6 mg/mL Anesthetics: 0.5 mL lidocaine (PF) 10 mg/mL (1 %) Outcome: tolerated well, no immediate complications Post-injection instructions were reviewed with the patient and the patient voiced understanding of these instructions. Informed Consent Consent Obtained: Verbal [place] Protocol A moment to CARE was completed. SIGN IN Personnel directly involved with the procedure wore the appropriate PPE. Special Equipment: N/A Patient/Surrogate Stated/Verified: Patient name, Relevant allergies and Intended procedure TIME OUT Relevant labs, photos, and/or imaging studies have been reviewed. Correct side/site marked and visible. Medications required for procedure verified. No fire risk assessment and interventions applicable. No implant(s) inserted. SIGN OUT All instruments, equipment, possible retained foreign bodies accounted for. [facility] XR HAND 3V PA/LAT/OBL RTon 0 02-22-2025 XR HAND 3V PA/LAT/OBL RT * * *Final Report* * * DATE OF EXAM: Feb 22 2025 9:47AM [id number] [id number] - XR HAND 3V PA/LAT/OBL RT / PROCEDURE REASON: Pain of right hand * * * * Physician Interpretation * * * * EXAMINATION: XR HAND 3V PA/LAT/OBL RT CLINICAL HISTORY: Pain right hand in 1st metacarpal region after fall out of bed 1 month ago. COMPARISON: None. FINDINGS: No evidence of fracture, dislocation, or destructive process. 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 Degenerative changes of the radiocarpal, triscaphe, first MCP, and several IP joints. _ IMPRESSION: No acute bone abnormality. Degenerative changes as described. Tearoom Host/Hostess: PSCB Transcribe Date/Time: Feb 25 2025 4:54P Dictated by : AYLEEN MCMAHON MD This examination was interpreted and the report reviewed and electronically signed by: AYLEEN MCMAHON MD on Feb 25 2025 4:55PM EST [id number] [facility] XR Hand - right PA and Later al and Obliqueon 02-22-2025 Radiology Study observation (narrative) [facility] 02-20-2025 [facility] Telephone ([facility]) VENKAT MARSH ([id number]) 1965 M Date Time Provider Department 02/20/25 TALITA ROSS [facility] During your visit today, we recorded the following information about you: Bibiana Lozoya MA 02/20/2025 3:39 PM Signed Pt reminded of appointment on 02/22/2025 and to have xrays completed prior to the day of his appointment. Pt was given hours and locations to have this completed. Pt verbalized understanding of instructions. Bibiana Lozoya MA February 20, 2025 3:39 PM Allergies As of Date: 02/20/2025 Noted Allergy Reaction AMOXICILLIN-POT CLAVULANATE 12/23/2023 10 - Anaphylaxis 7 - Swelling DOXYCYCLINE 11/09/2024 16 - Unknown LISINOPRIL 04/24/2023 3 - Cough SULFAMETHOXAZOLE-TRIM ETHOPRIM 10/20/2009 2 - Rash 4 - Hives 7 - Swelling TRIMETHOPRIM 09/04/2023 7 - Swelling Date Reviewed: 01/19/2025 Reviewed by: Daylin Anderson LPN - Fully Assessed Reason for Visit: Appointment [[id number]] Cmt: Appointment/Xray Reminder for 02/22/2025 Prescriptions as of 02/22/2025 - mirtazapine (REMERON) 15 mg tablet Take 1.5 tablets by mouth daily at bedtime. - traZODone (DESYREL) 100 mg tablet Take 1 tablet by mouth at bedtime as needed (sleep). Okay to take one-half of a tablet if feeling too sedated in the morning. - spironolactone (ALDACTONE) 25 mg tablet Take 25 mg by mouth once daily. - furosemide (LASIX) 20 mg tablet Take 40 mg by mouth once daily. - loratadine (CLARITIN) 10 mg tablet Take 10 mg by mouth once daily. - Benzonatate 200 mg capsule Take 200 mg by mouth three times a day as needed. - dapagliflozin propanediol (FARXIGA) 10 mg tablet Take by mouth daily with breakfast. - sacubitril-valsartan (ENTRESTO) 49-51 mg tablet Take 1 tablet by mouth two times a day. - diphenhydrAMINE (BANOPHEN) 25 mg capsule Take 25 mg by mouth three times a day as needed. - rosuvastatin (CRESTOR) 10 mg tablet Take 1 tablet by mouth one time a week. - ezetimibe (ZETIA) 10 mg tablet Take 1 tablet by mouth once daily. - fluticasone (FLONASE) 50 mcg/actuation nasal spray Use 1 spray in each nostril daily at bedtime. - nicotine (NICODERM CQ) 21 mg/24 hr Apply 1 patch as directed every 24 hours. - nicotine polacrilex (NICORETTE) 4 mg gum Take 1 each by mouth as needed. - predniSONE (DELTASONE) 20 mg tablet Take 40 mg by mouth once daily. - aspirin, enteric coated (ASPIRIN, ENTERIC COATED) 81 mg EC tablet Take 1 tablet by mouth once daily. - metoprolol succinate ER (TOPROL XL) 25 mg 24 hr tablet Take 1 tablet by mouth once daily. - BD SAFETYGLIDE INSULIN SYRINGE 0.5 mL 30 gauge x 5/16 syrg Inject 1 Each subcutaneously every 24 hours. Give with each insulin administration. - dulaglutide (TRULICITY) 1.5 mg/0.5 mL pen injector Inject 1.5 mg subcutaneously one time a week. Monitor bs closely and keep food log - albuterol HFA (PROVENTIL HFA, VENTOLIN HFA) 90 mcg/actuation inhaler Inhale 2 Puffs as instructed every 4 hours as needed for wheezing/shortness of breath. - metFORMIN (GLUCOPHAGE) 1,000 mg tablet Take 1 tablet by mouth two times a day. - levothyroxine (SYNTHROID) 125 mcg tablet Take 1 tablet by mouth daily before breakfast. - Insulin Whitman, Disposable, (PEN NEEDLE) 32 gauge x 5/32 Inject 1 Each subcutaneously every 24 hours. Give with each insulin administration. - insulin glargine 100 unit/mL (3 mL) Inject 20 Units subcutaneously daily at bedtime. Inject 20 Units subcutaneously as directed - magnesium, aluminum hydroxide (MYLANTA ORAL) Take 5 mL by mouth two times a day as needed (heartburn). Meds Comments as of 10/23/2023: 10/23/23 The medications are managed by this patient by: PATIENT Calixto Ochs, OA Problem List As Of Date 02/20/2025 Noted Resolved CAD (coronary artery disease) [I25.10] 09/04/2014 S/P coronary artery stent placement [Z95.5] 09/04/2014 Left bundle branch block (LBBB) on electrocardi*09/04/20 14 H/O myocardial infarction, greater than 8 weeks*09/04/2014 Tobacco abuse [Z72.0] 09/04/2014 Obesity [E66.9] 09/04/2014 01/19/2025 Status post insertion of drug-eluting stent int*11/17/2016 Non morbid obesity due to excess calories [E66.*11/17/2016 01/19/2025 Obesity, Class III, BMI >= 40 [E66.813] 05/11/2023 01/19/2025 Hypercholesteremia [E78.00] HTN (hypertension) [I10] Schizoaffective disorder, bipolar type (HCC) [F*09/10/2023 11/02/2023 Cocaine dependence in remission ([facility]) [F14.21] 09/10/2023 Hypothyroidism [E03.9] Diabetes mellitus ([facility]) [E11.9] Cataract, nuclear sclerotic, both eyes [H25.13] 10/23/2023 Hyperopia of both eyes [H52.03] 10/23/2023 Regular astigmatism of both eyes [H52.223] 10/23/2023 Presbyopia of both eyes [H52.4] 10/23/2023 Mood disorder (HCC) [F39] 11/02/2023 Acute systolic HF (heart failure) (HCC) [I50.21]04/13/2024 01/19/2025 Acute on chronic systolic (congestive) heart fa*04/13/2024 04/15/2024 Atrial fib/f (more content not included)... [facility] CNNURSEon 01-24-2025 CNNURSE Nurse Visit (ENDIMT) VENKAT MARSH ([id number]) 1965 M Date Time Provider Department 01/24/25 9:00 AM NATALI WEAVER During your visit today, we recorded the following information about you: Natali Weaver RN 01/24/2025 9:26 AM Signed DIABETES CARE AND EDUCATION VISIT Location: [place] Type of visit: In person individual PATIENT'S MAIN CONCERN TODAY: what can I do to get off insulin and other meds Support person present for education today: none Cognitive ability: Alert and oriented Motivation to learn: Interested Learning barriers identified by educator: none Method of instruction: written and verbal DIABETES FINDINGS: Limited time today, patient was concerned about his ride and making sure he was able to leave by 9:25 Monitoring: Reviewed goals for checking sugars, reports he checks daily Meal Planning: reviewed basic meal recommendations Medications: reviewed the meds he takes and how they function Problem Solving:hypo and hyperglycemia reviewed Physical Activity: benefits discussed HANDOUTS: Healthy You: Survival Skills and Healthy You: Planning Healthy Meals LEARNING RESPONSE: Healthy eating: Demonstrated understanding/compete ncy today or at previous visit Being active: Demonstrated understanding/compete ncy today or at previous visit Taking medications: Demonstrated understanding/compete ncy today or at previous visit POSSIBLE FUTURE TOPICS: 1. DIABETES CARE AND EDUCATION PLAN: Education completed and annual diabetes education follow-up visit recommended Time Spent (Minutes): 25 This visit note will be communicated to the healthcare provider via access to shared medical record. SIGNATURE: Natali Weaver RN PATIENT NAME: Venkat Marsh DATE: January 24, 2025 TIME: 8:56 AM Referring Provider: NIKOLAI NAZARIO [[id number]] Allergies As of Date: 01/24/2025 Noted Allergy Reaction AMOXICILLIN-POT CLAVULANATE 12/23/2023 10 - Anaphylaxis 7 - Swelling DOXYCYCLINE 11/09/2024 16 - Unknown LISINOPRIL 04/24/2023 3 - Cough SULFAMETHOXAZOLE-TRIM ETHOPRIM 10/20/2009 2 - Rash 4 - Hives 7 - Swelling TRIMETHOPRIM 09/04/2023 7 - Swelling Date Reviewed: 01/19/2025 Reviewed by: Daylin Anderson LPN - Fully Assessed Visit Diagnosis:Type 2 diabetes mellitus with diabetic microalbuminuria, with long-term current use of insulin (HCC) [E11.29, R80.9, Z79.4] Order(s):CONSULT TO DIABETES EDUCATION DSME [[id number]] Order #: [id number]: 2 Prescriptions as of 01/24/2025 - spironolactone (ALDACTONE) 25 mg tablet Take 25 mg by mouth once daily. - furosemide (LASIX) 20 mg tablet Take 40 mg by mouth once daily. - loratadine (CLARITIN) 10 mg tablet Take 10 mg by mouth once daily. - Benzonatate 200 mg capsule Take 200 mg by mouth three times a day as needed. - dapagliflozin propanediol (FARXIGA) 10 mg tablet Take by mouth daily with breakfast. - sacubitril-valsartan (ENTRESTO) 49-51 mg tablet Take 1 tablet by mouth two times a day. - diphenhydrAMINE (BANOPHEN) 25 mg capsule Take 25 mg by mouth three times a day as needed. - rosuvastatin (CRESTOR) 10 mg tablet Take 1 tablet by mouth one time a week. - ezetimibe (ZETIA) 10 mg tablet Take 1 tablet by mouth once daily. - fluticasone (FLONASE) 50 mcg/actuation nasal spray Use 1 spray in each nostril daily at bedtime. - nicotine (NICODERM CQ) 21 mg/24 hr Apply 1 patch as directed every 24 hours. - nicotine polacrilex (NICORETTE) 4 mg gum Take 1 each by mouth as needed. - mirtazapine (REMERON) 15 mg tablet Take 1 tablet by mouth daily at bedtime. - traZODone (DESYREL) 100 mg tablet Take 1 tablet by mouth daily at bedtime. - predniSONE (DELTASONE) 20 mg tablet Take 40 mg by mouth once daily. - aspirin, enteric coated (ASPIRIN, ENTERIC COATED) 81 mg EC tablet Take 1 tablet by mouth once daily. - metoprolol succinate ER (TOPROL XL) 25 mg 24 hr tablet Take 1 tablet by mouth once daily. - BD SAFETYGLIDE INSULIN SYRINGE 0.5 mL 30 gauge x 5/16 syrg Inject 1 Each subcutaneously every 24 hours. Give with each insulin administration. - dulaglutide (TRULICITY) 1.5 mg/0.5 mL pen injector Inject 1.5 mg subcutaneously one time a week. Monitor bs closely and keep food log - albuterol HFA (PROVENTIL HFA, VENTOLIN HFA) 90 mcg/actuation inhaler Inhale 2 Puffs as instructed every 4 hours as needed for wheezing/shortness of breath. - metFORMIN (GLUCOPHAGE) 1,000 mg tablet Take 1 tablet by mouth two times a day. - levothyroxine (SYNTHROID) 125 mcg tablet Take 1 tablet by mouth daily before breakfast. - Insulin Whitman, Disposable, (PEN NEEDLE) 32 gauge x 5/32 Inject 1 Each subcutaneously every 24 hours. Give with each insulin administration. - insulin glargine 100 unit/mL (3 mL) Inject 20 Units subcutaneously daily at bedtime. Inject 20 Units subcutaneously as directed - magnesium, aluminum (more content not included)... Normal [address] 01-20-2025 Heart Failure Clinic Discharge Call Discharge Date 01/17/25 Patient was called today as a hospital discharge follow up phone call. The following represents a summary of the call. Do you feel as good as you did when you left the hospital? Are you able to do some activities of daily living? yes, yes Have you had any healthcare appointments since discharge? If yes, did they change any medications? yes, yes they added some Have you missed any of your pills since discharge? Medication list reviewed and consistent with discharge EMR. no, updated medication list below taking all the medications listed on discharge and PCP added some. Added ones are blue Do you have a scale/Are you doing daily weights/Any changes in weight? Pt does have a scale but is going to start soon, daily wt education Do you have any symptoms of volume overload? (SOB, abdominal bloating/fullness, ankle/leg swelling/orthopnea) or dehydration? no, no How are you doing on your low sodium/salt diet? yes Do you have any questions;concerns? None Confirm next OV or when you will call again. 01/30/25 1000 MM Pt Verbalizes understanding. spironolactone (ALDACTONE) 25 mg tablet Take 25 mg by mouth once daily. furosemide (LASIX) 20 mg tablet Take 40 mg by mouth once daily. loratadine (CLARITIN) 10 mg tablet Take 10 mg by mouth once daily. Benzonatate 200 mg capsule Take 200 mg by mouth three times a day as needed. dapagliflozin propanediol (FARXIGA) 10 mg tablet Take by mouth daily with breakfast. sacubitril-valsartan (ENTRESTO) 49-51 mg tablet Take 1 tablet by mouth two times a day. diphenhydrAMINE (BANOPHEN) 25 mg capsule Take 25 mg by mouth three times a day as needed. mirtazapine (REMERON) 15 mg tablet Take 1 tablet by mouth daily at bedtime. traZODone (DESYREL) 100 mg tablet Take 1 tablet by mouth daily at bedtime. predniSONE (DELTASONE) 20 mg tablet Take 40 mg by mouth once daily. aspirin, enteric coated (ASPIRIN, ENTERIC COATED) 81 mg EC tablet Take 1 tablet by mouth once daily. metoprolol succinate ER (TOPROL XL) 25 mg 24 hr tablet Take 1 tablet by mouth once daily. BD SAFETYGLIDE INSULIN SYRINGE 0.5 mL 30 gauge x 5/16 syrg Inject 1 Each subcutaneously every 24 hours. Give with each insulin administration. dulaglutide (TRULICITY) 1.5 mg/0.5 mL pen injector Inject 1.5 mg subcutaneously one time a week. Monitor bs closely and keep food log albuterol HFA (PROVENTIL HFA, VENTOLIN HFA) 90 mcg/actuation inhaler Inhale 2 Puffs as instructed every 4 hours as needed for wheezing/shortness of breath. metFORMIN (GLUCOPHAGE) 1,000 mg tablet Take 1 tablet by mouth two times a day. levothyroxine (SYNTHROID) 125 mcg tablet Take 1 tablet by mouth daily before breakfast. Insulin Whitman, Disposable, (PEN NEEDLE) 32 gauge x 5/32 Inject 1 Each subcutaneously every 24 hours. Give with each insulin administration. insulin glargine 100 unit/mL (3 mL) Inject 20 Units subcutaneously daily at bedtime. Inject 20 Units subcutaneously as directed magnesium, aluminum hydroxide (MYLANTA ORAL) Take 5 mL by mouth two times a day as needed (heartburn). rosuvastatin (CRESTOR) 10 mg tablet Take 1 tablet by mouth one time a week. ezetimibe (ZETIA) 10 mg tablet Take 1 tablet by mouth once daily. fluticasone (FLONASE) 50 mcg/actuation nasal spray Use 1 spray in each nostril daily at bedtime. nicotine (NICODERM CQ) 21 mg/24 hr Apply 1 patch as directed every 24 hours. nicotine polacrilex (NICORETTE) 4 mg gum Take 1 each by mouth as needed. Normal [facility] 36on 01-19-2025 36 TC to Pt went to , LV Normal [facility] 36 PT returned your call Normal [facility] 36 TC to Pt no answer LVM Normal [facility] CNOVon 01-19-2025 CN Office Visit (AGINTMAC) VENKAT MARSH ([id number]) 1965 M Date Time Provider Department 01/19/25 10:40 AM NIKOLAI NAZARIO AGINTMAC During your visit today, we recorded the following information about you: Temperature Pulse Respiration Blood pressure 97.6 degrees 99/minute 18/minute 139/87 Weight Height 127 kg 1.702 m Nikolai Nazario DO 01/19/2025 11:44 AM Addendum Home instructions for heart failurePatient instruction for managing heart failure. GREEN ZONE Doing well today Weight gained is no more than 3 pounds a day or 5 pounds a week. No swelling in feet, ankles, legs or stomach. No more swelling than usual. No more trouble breathing than usual. No change in my sleep. No other problems. Actions: I am doing fine. I will take my medicine, follow my diet, see my doctor, exercise, and watch for symptoms YELLOW ZONE Having a bad day or flare up Weight gained of more than 3 pounds in one day or 5 pounds in one week. New swelling in ankle, leg, knee, or thigh. Bloating in belly, pants feel tighter. Swelling in hands or face. Coughing or trouble breathing while walking or talking. Harder to breathe last night. Have trouble sleeping, wake up short of breath. Much more tired than usual. Not eating. Pain in my chest or bad leg cramps. Feel weak or dizzy. Signs and symptoms of Dehydration: dark and/or less urine, dry cracked mouth/skin, lethargic, lightheaded, dizzy, low blood pressure readings with high heart rate Actions: I need to take action and call my doctor or nurse today. RED ZONE NEED MEDICAL CARE NOW Weight gain of 5 pounds overnight. Chest pain or pressure that does not go away. Feel less alert. Wheezing or have trouble breathing when at rest. Cannot sleep lying down. Cannot take my water pill. Pass out or faint. ACTIONS I need to call my doctor or nurse now! Call 911 if I have chest pain or cannot breathe GREEN ZONE Doing well today Weight gained is no more than 3 pounds a day or 5 pounds a week. No swelling in feet, ankles, legs or stomach. No more swelling than usual. No more trouble breathing than usual. No change in my sleep. No other problems. Actions: I am doing fine. I will take my medicine, follow my diet, see my doctor, exercise, and watch for symptoms YELLOW ZONE Having a bad day or flare up Weight gained of more than 3 pounds in one day or 5 pounds in one week. New swelling in ankle, leg, knee, or thigh. Bloating in belly, pants feel tighter. Swelling in hands or face. Coughing or trouble breathing while walking or talking. Harder to breathe last night. Have trouble sleeping, wake up short of breath. Much more tired than usual. Not eating. Pain in my chest or bad leg cramps. Feel weak or dizzy. Signs and symptoms of Dehydration: dark and/or less urine, dry cracked mouth/skin, lethargic, lightheaded, dizzy, low blood pressure readings with high heart rate Actions: I need to take action and call my doctor or nurse today. RED ZONE NEED MEDICAL CARE NOW Weight gain of 5 pounds overnight. Chest pain or pressure that does not go away. Feel less alert. Wheezing or have trouble breathing when at rest. Cannot sleep lying down. Cannot take my water pill. Pass out or faint. ACTIONS I need to call my doctor or nurse now! Call 911 if I have chest pain or cannot breathe Nikolai Nazario DO 01/19/2025 11:50 AM Signed Nikolai Nazario DO Board Certified Internal Medicine, Lipidology, Metabolic Medicine and Lifestyle Medicine [facility] Recording using [employer] software for draft documentation of the visit was discussed with the patient/authorized sales representative trainee; all questions welcomed and answered. Patient/authorized sales representative trainee agreed to proceed Date of Evaluation: 01/19/2025 Patient Name: Venkat Marsh : 1965 AGE: [age] year old Race: White Sex: male ASSESSMENT/PLAN: 1. Chronic HFrEF I50.22 (primary diagnosis) - Continue current medications - Encouraged sodium restriction - Encouraged daily weights - Recommend regular aerobic exercise - Smoking cessation encouraged; discussed risks to health and quitting strategies. Patient is ready to quit - NT PRO BNP - CONSULT TO AMB PHARMACY CLINIC (PPG ONLY) - COMPLETE BLOOD COUNT AND DIFFERENTIAL - COMPREHENSIVE METABOLIC PANEL 2. Tobacco abuse - ICD9: 305.1, ICD10: Z72.0 - Cessation encouraged. - Physiologic and physical aspects of tobacco addiction as well as strategies for quitting were discussed. - Counseling was given focusing on the harmful effects of this addiction especially given the patient's medical condition(s) which will be worsened because of the chemicals in tobacco. - Prescription given - NICOTINE 21 MG/24 HR DAILY TRANSDERMAL PATCH - NICOTINE (POLACRILEX) 4 MG GUM 3. (more content not included)... Normal [facility] 36on 01-18-2025 36 Discharged with hear t failure. Needs 72 hour post discharge phone call. Normal [facility] Basic metabolic 1998 panelon 01-17-2025 Anion gap [Moles/Vol] 12 mmol/L 3 - 13 mmol/L [facility] Calcium [Mass/Vol] 9.2 mg/dL 8.8 - 10. 0 mg/dL [facility] Chloride [Moles/Vol] 101 mmol/L 98 - 10 7 mmol/L [facility] CO2 [Moles/Vol] 25 mmol/L 23 - 31 mmol/L [facility] Creatinine [Mass/Vol] 1.62 mg/dL High 0.72 - 1.25 mg/dL [facility] GFR/1.73 sq M.predicted (S/P/Bld) [Vol rate/Area] 48 mL/min Low - PINF [facility] Comment on above: Calculation based on the Chronic Kidney Disease Epidemiology Collaboration (CKD-EPI) equation refit without adjustment for race Glucose [Mass/Vol] 205 mg/dL High 82 - 115 mg/dL [facility] Interpretation and review of laboratory results Abnormal [facility] Potassium [Moles/Vol] 3.9 mmol/L 3.5 - 5.1 mmol/L [facility] Comment on above: Plasma potassium zaira ues may be up to 0.5 mmol/L lower than serum values. Sodium [Moles/Vol] 138 mmol/L 136 - 145 mmol/L [facility] Urea nitrogen [Mass/Vol] 27 mg/dL High 9 - 23 mg/dL [facility] - Chemistry and C hemistry - challengeon 01-17-2025 Magnesium [Mass/Vol] 2 mg/dL 1.6 - 2 .6 mg/dL [facility] Magnesium [Mass/Vol]on 01-17 Interpretation and review of laboratory results Normal [facility] Higher values can be expected in females during menses. [facility] Nursing Noteon 01-17-2025 Nursing Note Discharge instructions reviewed with patient. All questions answered. Pt discharged to home with all belongings. Normal [facility] Nursing Note pt adamant on leaving. Dr. Christie messaged via secure chat. Stated patient can be discharged. This RN asked him about not having a PCP Dr. Christie states patient can follow up with cardiology for now. Will update patient. [facility] Progress Noteon 01-17-[address] Hernandez, tell him he has to stay, the day team will be in I\about 1 hr. Someone will be there around 7: 00 am I will let them know at signout . Will tell the pt but the pt states he needs to be home by 8. [facility] Progress Note Messaged Dr. Wells and Dr. Hernandez; Pt is ready to leave AMA. He waited all day yesterday and has things to do today. He doesn't think he can wait till the doctors round today. 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 Normal [facility] 30on 01-16-2025 30 Problem: Knowledge Deficit Goal: Patient/family/caregi bridgett demonstrates understanding of disease process, treatment plan, medications, and discharge instructions Outcome: Progressing Problem: Hemodynamic Status Goal: Patient's vitals signs are stable Outcome: Progressing Problem: Excessive Fluid Volume Goal: Fluid and electrolyte balance are achieved/maintained Outcome: Progressing Normal [facility] 30 Problem: Knowledge Deficit Goal: Patient/family/caregi bridgett demonstrates understanding of disease process, treatment plan, medications, and discharge instructions Outcome: Progressing Problem: Hemodynamic Status Goal: Patient's vitals signs are stable Outcome: Progressing Problem: Excessive Fluid Volume Goal: Fluid and electrolyte balance are achieved/maintained Outcome: Progressing Problem: Inadequate Gas Exchange Goal: Patient is adequately oxygenated and ventilation is improved Outcome: Progressing Goal: Nutritional status is improving Outcome: Progressing Problem: Activity Intolerance/Impaired Mobility Goal: Mobility/activity is maintained at optimum level for patient Outcome: Progressing Problem: Nutrition Goal: Nutritional status is improving Outcome: Progressing Problem: Potential for Falls Goal: I will remain free of falls Outcome: Progressing Problem: Discharge Barriers Goal: My discharge needs are met Outcome: Progressing Normal [facility] [id number] 01-16-2025 [id number] Spoke with patient regarding PT recommendations for home health PT. He agreed. liaison planner aware. Normal [facility] BASIC METABOLIC PANELon - Anion gap [Moles/Vol] 12 mmol/L Normal 3-13 [facility] Comment on above: Performed By: #### L AB15, [id number] ####Assistant Buyer: WESTON IBARRA ([phone])[address] Calcium [Mass/Vol] 9.2 mg/dL Normal 8.8-10.0 [facility] Comment on above: Performed By: #### L AB15, [id number] ####Assistant Buyer: WESOTN IBARRA ([phone])[address] Chloride [Moles/Vol] 101 mmol/L Normal 98-107 [facility] Comment on above: Performed By: #### L AB15, [id number] ####Assistant Buyer: WESTON IBARRA ([phone])[facility] [place] [address] [place] CO2 [Moles/Vol] 25 mmol/L Normal 23-31 [facility] Comment on above: Performed By: #### L AB15, [id number] ####Assistant Buyer: WESTON IBARRA ([phone])[facility])[address] [place] [address] Creatinine [Mass/Vol] 1.62 mg/dL High 0.72-1.25 [facility] Comment on above: Performed By: #### L AB15, [id number] ####Assistant Buyer: WESTON IBARRA ([phone])[facility])[address] [place] [address] GLOMERULAR FILTRATION RATE ML/MIN/1.73 SQ M.PREDICTED 48.0 mL/min/1.73m*2 Low >60.0 [facility] Comment on above: Result Comment: Calc ulation based on the Chronic Kidney Disease Epidemiology Collaboration (CKD-EPI) equation refit without adjustment for race Performed By: #### L AB15, [id number] ####Assistant Buyer: WESTON IBARRA ([phone])[facility])[address] [place] [address] Glucose [Mass/Vol] 205 mg/dL High 82-115 [facility] Comment on above: Performed By: #### L AB15, [id number] ####Assistant Buyer: WESTON IBARRA ([phone])[facility])[address] [place] [address] Potassium [Moles/Vol] 3.9 mmol/L Normal 3.5-5.1 [facility] Comment on above: Result Comment: [facility] potassium values may be up to 0.5 mmol/L lower than serum values. Performed By: #### L AB15, [id number] ####Assistant Buyer: WESTON IBARRA ([phone])[facility])[address] [place] [address] [place] Sodium [Moles/Vol] 138 mmol/L Normal 136-145 [facility] Comment on above: Performed By: #### L AB15, [id number] ####Assistant Buyer: WESTON IBARRA ([phone])[facility] ([facility])[address] [place] [address] Urea nitrogen [Mass/Vol] 27 mg/dL High 9-23 [facility] Comment on above: Performed By: #### L AB15, [id number] ####Assistant Buyer: WESTON IBARRA ([phone])[facility] ([facility])[address] [place] [address] Anion gap [Moles/Vol] 13 mmol/L Normal 3-13 [facility] Comment on above: Performed By: #### L AB15 ####Assistant Buyer: WESTON IBARRA ([phone])[facility] ([facility])[address] [place] [address] Calcium [Mass/Vol] 9.1 mg/dL Normal 8.8-10.0 [facility] Comment on above: Performed By: #### L AB15 ####Assistant Buyer: WESTON IBARRA ([phone])[facility] ([facility])[address] [place] [address] [place] Chloride [Moles/Vol] 104 mmol/L Normal 98-107 [facility] Comment on above: Performed By: #### L AB15 ####Assistant Buyer: WESOTN IBARRA ([phone])[facility] ([facility])[address] [place] [address] [place] CO2 [Moles/Vol] 23 mmol/L Normal 23-31 [facility] Comment on above: Performed By: #### L AB15 ####Assistant Buyer: WESTON IBARRA ([phone])[facility] ([facility])[address] [place] [address] [place] Creatinine [Mass/Vol] 1.47 mg/dL High 0.72-1.25 [facility] Comment on above: Performed By: #### L AB15 ####Assistant Buyer: WESTON IBARRA ([phone])[facility] [address] GLOMERULAR FILTRATION RATE ML/MIN/1.73 SQ M.PREDICTED 53.9 mL/min/1.73m*2 Low >60.0 [facility] Comment on above: Result Comment: Calc ulation based on the Chronic Kidney Disease Epidemiology Collaboration (CKD-EPI) equation refit without adjustment for race Performed By: #### L AB15 ####Assistant Buyer: WESTON IBARRA ([phone])[address] Glucose [Mass/Vol] 182 mg/dL High 82-115 [facility] Comment on above: Performed By: #### L AB15 ####Assistant Buyer: WESTON IBARRA ([phone])[address] Potassium [Moles/Vol] 4.1 mmol/L Normal 3.5-5.1 [facility] Comment on above: Result Comment: [facility] potassium values may be up to 0.5 mmol/L lower than serum values. Performed By: #### L AB15 ####Assistant Buyer: WESTON IBARRA ([phone])[address] Sodium [Moles/Vol] 140 mmol/L Normal 136-145 [facility] Comment on above: Performed By: #### L AB15 ####Assistant Buyer: WESTON IBARRA ([phone])[address] Urea nitrogen [Mass/Vol] 21 mg/dL Normal 9-23 [facility] Comment on above: Performed By: #### L AB15 ####Assistant Buyer: WESTON IBARRA ([phone])[address] Basic metabolic 1998 panelon 01-16-2025 Anion gap [Moles/Vol] 13 mmol/L 3 - 13 mmol/L [facility] Calcium [Mass/Vol] 9.1 mg/dL 8.8 - 10. 0 mg/dL [facility] Chloride [Moles/Vol] 104 mmol/L 98 - 10 7 mmol/L [facility] CO2 [Moles/Vol] 23 mmol/L 23 - 31 mmol/L [facility] Creatinine [Mass/Vol] 1.47 mg/dL High 0.72 - 1.25 mg/dL [facility] GFR/1.73 sq M.predicted (S/P/Bld) [Vol rate/Area] 53.9 mL/min Low - PINF [facility] Comment on above: Calculation based on the Chronic Kidney Disease Epidemiology Collaboration (CKD-EPI) equation refit without adjustment for race Glucose [Mass/Vol] 182 mg/dL High 82 - 115 mg/dL [facility] Interpretation and review of laboratory results Abnormal [facility] Potassium [Moles/Vol] 4.1 mmol/L 3.5 - 5.1 mmol/L [facility] Comment on above: Plasma potassium zaira ues may be up to 0.5 mmol/L lower than serum values. Sodium [Moles/Vol] 140 mmol/L 136 - 145 mmol/L [facility] Urea nitrogen [Mass/Vol] 21 mg/dL 9 - 23 mg/dL [facility] CNPNon 01-16-2025 CNPN Telephone (ARESCL) VENKAT MARSH ([id number]) 1965 M Date Time Provider Department 01/16/25 YULIET FONG During your visit today, we recorded the following information about you: Jelena Oleary 01/16/2025 1:45 PM Signed Patient called on 01/16- I spoke with him- He is in the hospital - dealing with heart failure He needs a follow up appt with provider Asked for refills- I explained I'm not sure if provider will fill medication until he see's you Patient understood Jelena Oleary January 16, 2025 1:44 PM Allergies As of Date: 01/16/2025 Noted Allergy Reaction AMOXICILLIN-POT CLAVULANATE 12/23/2023 10 - Anaphylaxis 7 - Swelling DOXYCYCLINE 11/09/2024 16 - Unknown LISINOPRIL 04/24/2023 3 - Cough SULFAMETHOXAZOLE-TRIM ETHOPRIM 10/20/2009 2 - Rash 4 - Hives 7 - Swelling TRIMETHOPRIM 09/04/2023 7 - Swelling Date Reviewed: 12/08/2024 Reviewed by: Issac Xiao MD - Fully Assessed Reason for Visit: Appointment [186] Cmt: Set appt for 01/27 Prescriptions as of 01/16/2025 - azithromycin (ZITHROMAX) 250 mg tablet Take 1 tablet by mouth once daily. - predniSONE (DELTASONE) 20 mg tablet Take 40 mg by mouth once daily. - aspirin, enteric coated (ASPIRIN, ENTERIC COATED) 81 mg EC tablet Take 1 tablet by mouth once daily. - amLODIPine (NORVASC) 2.5 mg tablet Take 1 tablet by mouth once daily. - metoprolol succinate ER (TOPROL XL) 25 mg 24 hr tablet Take 1 tablet by mouth once daily. - BD SAFETYGLIDE INSULIN SYRINGE 0.5 mL 30 gauge x 5/16 syrg Inject 1 Each subcutaneously every 24 hours. Give with each insulin administration. - dulaglutide (TRULICITY) 1.5 mg/0.5 mL pen injector Inject 1.5 mg subcutaneously one time a week. Monitor bs closely and keep food log - albuterol HFA (PROVENTIL HFA, VENTOLIN HFA) 90 mcg/actuation inhaler Inhale 2 Puffs as instructed every 4 hours as needed for wheezing/shortness of breath. - empagliflozin (JARDIANCE) 10 mg tablet Take 1 tablet by mouth daily with breakfast. - metFORMIN (GLUCOPHAGE) 1,000 mg tablet Take 1 tablet by mouth two times a day. - levothyroxine (SYNTHROID) 125 mcg tablet Take 1 tablet by mouth daily before breakfast. - Insulin Whitman, Disposable, (PEN NEEDLE) 32 gauge x 5/32 Inject 1 Each subcutaneously every 24 hours. Give with each insulin administration. - insulin glargine 100 unit/mL (3 mL) Inject 20 Units subcutaneously daily at bedtime. Inject 20 Units subcutaneously as directed - mirtazapine (REMERON) 15 mg tablet Take 1 tablet by mouth daily at bedtime. - magnesium, aluminum hydroxide (MYLANTA ORAL) Take 5 mL by mouth two times a day as needed (heartburn). Meds Comments as of 10/23/2023: 10/23/23 The medications are managed by this patient by: PATIENT Calixto Ochs, OA Problem List As Of Date 01/16/2025 Noted Resolved CAD (coronary artery disease) [I25.10] 09/04/2014 S/P coronary artery stent placement [Z95.5] 09/04/2014 Left bundle branch block (LBBB) on electrocardi*09/04/20 14 H/O myocardial infarction, greater than 8 weeks*09/04/2014 Tobacco abuse [Z72.0] 09/04/2014 Obesity [E66.9] 09/04/2014 Status post insertion of drug-eluting stent int*11/17/2016 Non morbid obesity due to excess calories [E66.*11/17/2016 Obesity, Class III, BMI >= 40 [E66.813] 05/11/2023 Hypercholesteremia [E78.00] HTN (hypertension) [I10] Schizoaffective disorder, bipolar type (HCC) [F*09/10/2023 11/02/2023 Cocaine dependence in remission (HCC) [F14.21] 09/10/2023 Hypothyroidism [E03.9] Diabetes mellitus (HCC) [E11.9] Cataract, nuclear sclerotic, both eyes [H25.13] 10/23/2023 Hyperopia of both eyes [H52.03] 10/23/2023 Regular astigmatism of both eyes [H52.223] 10/23/2023 Presbyopia of both eyes [H52.4] 10/23/2023 Mood disorder (HCC) [F39] 11/02/2023 Acute systolic HF (heart failure) (HCC) [I50.21]04/13/2024 Acute on chronic systolic (congestive) heart fa*04/13/2024 04/15/2024 Atrial fib/flutter, transient (HCC) [I48.91, I4*04/14/2024 Mixed hyperlipidemia [E78.2] 04/14/2024 Morbid obesity (HCC) [E66.01] 04/14/2024 Essential hypertension [I10] 04/14/2024 Chronic HFrEF (heart failure with reduced eject*04/14/2024 Typical atrial flutter (HCC) [I48.3] 04/15/2024 Non-compliant patient [Z91.199] Encounter Status:Closed by JELENA OLEARY on 01/16/25 Normal [facility] Laboratory - Chemistry and C hemistry - challengeon 01-16-2025 Glucose [Mass/Vol] 222 mg/dL High 70 - 100 mg/dL [facility] Glucose [Mass/Vol] 103 mg/dL High 70 - 100 mg/dL [facility] Glucose [Mass/Vol] 224 mg/dL High 70 - 100 mg/dL [facility] Glucose [Mass/Vol] 156 mg/dL High 70 - 100 mg/dL [facility] MAGNESIUMon 01-16-2025 Magnesium [Mass/Vol] 2.0 mg/dL Normal 1.6-2.6 [facility] Comment on above: Result Comment: ELIO Vargas COMMENTS: Higher values can be expected in females during menses. Performed By: #### L AB15, [id number] ####Assistant Buyer: WESTON IBARRA ([phone])[facility] ([facility])[address] [place] [address] No Panel Informationon 01-16 Interpretation and review of laboratory results Abnormal [facility] Performed by: [facility], [address] [place] [address] CLIA ID: [id number] [facility] Interpretation and review of laboratory results Abnormal [facility] Performed by: [facility], [address] [place] [address] CLIA ID: [id number] [facility] Interpretation and review of laboratory results Abnormal [facility] Performed by: [facility], [address] [place], [place] [id number] CLIA ID: [id number] [facility] Interpretation and review of laboratory results Abnormal [facility] Performed by: [facility], [address] [place] [address] CLIA ID: [id number] [facility] 30on 01-15-2025 30 Problem: Knowledge Deficit Goal: Patient/family/caregi bridgett demonstrates understanding of disease process, treatment plan, medications, and discharge instructions Outcome: Progressing Problem: Hemodynamic Status Goal: Patient's vitals signs are stable Outcome: Progressing Problem: Excessive Fluid Volume Goal: Fluid and electrolyte balance are achieved/maintained Outcome: Progressing Normal [facility] 30 Problem: Knowledge Deficit Goal: Patient/family/caregi bridgett demonstrates understanding of disease process, treatment plan, medications, and discharge instructions Outcome: Progressing Problem: Hemodynamic Status Goal: Patient's vitals signs are stable Outcome: Progressing Problem: Excessive Fluid Volume Goal: Fluid and electrolyte balance are achieved/maintained Outcome: Progressing Problem: Inadequate Gas Exchange Goal: Patient is adequately oxygenated and ventilation is improved Outcome: Progressing Goal: Nutritional status is improving Outcome: Progressing Problem: Activity Intolerance/Impaired Mobility Goal: Mobility/activity is maintained at optimum level for patient Outcome: Progressing Problem: Nutrition Goal: Nutritional status is improving Outcome: Progressing Problem: Potential for Falls Goal: I will remain free of falls Outcome: Progressing Problem: Discharge Barriers Goal: My discharge needs are met Outcome: Progressing Normal [facility] BASIC METABOLIC PANELon - Anion gap [Moles/Vol] 11 mmol/L Normal 3-13 [facility] Comment on above: Performed By: #### L AB129, [id number], LAB15 ####Assistant Buyer: WESTON IBARRA ([phone])[facility])[address] [place] [address] Calcium [Mass/Vol] 8.5 mg/dL Low 8.8-10.0 [facility] Comment on above: Performed By: #### L AB129, [id number], LAB15 ####Assistant Buyer: WESTON IBARRA ([phone])[facility] ([facility])[address] [place] [address] [place] Chloride [Moles/Vol] 102 mmol/L Normal 98-107 [facility] Comment on above: Performed By: #### L AB129, [id number], LAB15 ####Assistant Buyer: WESTON IBARRA ([phone])[facility] ([facility])[address] [place] [address] CO2 [Moles/Vol] 25 mmol/L Normal 23-31 [facility] Comment on above: Performed By: #### L AB129, [id number], LAB15 ####Assistant Buyer: WESTON IBARRA ([phone])[facility])[address] [place] [address] Creatinine [Mass/Vol] 1.30 mg/dL High 0.72-1.25 [facility] Comment on above: Performed By: #### L AB129, [id number], LAB15 ####Assistant Buyer: WESTON IBARRA ([phone])[facility])[address] [place] [address] [place] GLOMERULAR FILTRATION RATE ML/MIN/1.73 SQ M.PREDICTED 62.5 mL/min/1.73m*2 Normal >60.0 [facility] Comment on above: Result Comment: Calc ulation based on the Chronic Kidney Disease Epidemiology Collaboration (CKD-EPI) equation refit without adjustment for race Performed By: #### L AB129, [id number], LAB15 ####Assistant Buyer: WESTON IBARRA ([phone])[facility])[address] [place] [address] [place] Glucose [Mass/Vol] 223 mg/dL High 82-115 [facility] Comment on above: Performed By: #### L AB129, [id number], LAB15 ####Assistant Buyer: WESTON IBARRA ([phone])[facility])[address] [place] [address] [place] Potassium [Moles/Vol] 3.5 mmol/L Normal 3.5-5.1 [facility] Comment on above: Result Comment: [facility] potassium values may be up to 0.5 mmol/L lower than serum values. Performed By: #### L AB129, [id number], LAB15 ####Assistant Buyer: WESTON IBARRA ([phone])[facility] ([facility])[address] [place] [address] [place] Sodium [Moles/Vol] 138 mmol/L Normal 136-145 [facility] Comment on above: Performed By: #### L AB129, HAR008, LAB15 ####Assistant Buyer: WESTON IBARRA ([phone])[facility])[address] [place] [address] [place] Urea nitrogen [Mass/Vol] 21 mg/dL Normal 9-23 [facility] Comment on above: Performed By: #### L AB129, [id number], LAB15 ####Assistant Buyer: WESTON IBARRA ([phone])[facility] ([facility])[address] [place] [address] Basic metabolic 1998 panelon 01-15-2025 Anion gap [Moles/Vol] 11 mmol/L 3 - 13 mmol/L [facility] Calcium [Mass/Vol] 8.5 mg/dL Low 8.8 - 10. 0 mg/dL [facility] Chloride [Moles/Vol] 102 mmol/L 98 - 10 7 mmol/L [facility] CO2 [Moles/Vol] 25 mmol/L 23 - 31 mmol/L [facility] Creatinine [Mass/Vol] 1.3 mg/dL High 0.72 - 1.25 mg/dL [facility] GFR/1.73 sq M.predicted (S/P/Bld) [Vol rate/Area] 62.5 mL/min - PINF [facility] Comment on above: Calculation based on the Chronic Kidney Disease Epidemiology Collaboration (CKD-EPI) equation refit without adjustment for race Glucose [Mass/Vol] 223 mg/dL High 82 - 115 mg/dL [facility] Interpretation and review of laboratory results Abnormal [facility] Potassium [Moles/Vol] 3.5 mmol/L 3.5 - 5.1 mmol/L [facility] Comment on above: Plasma potassium zaira ues may be up to 0.5 mmol/L lower than serum values. Sodium [Moles/Vol] 138 mmol/L 136 - 145 mmol/L [facility] Urea nitrogen [Mass/Vol] 21 mg/dL 9 - 23 mg/dL [facility] CBC (HEMOGRAM)on 01-15-2025 Erythrocyte distribution width (RBC) [Ratio] 13.7 % Normal 11.5-15.0 [facility] Comment on above: Performed By: #### L AB294 ####Assistant Buyer: WESTON IBARRA ([phone])[facility] ([facility])[address] [place] [address] Hematocrit (Bld) [Volume fraction] 51.0 % Normal 40.0-52.0 [facility] Comment on above: Performed By: #### L AB294 ####Assistant Buyer: WESTON IBARRA ([phone])[facility] ([facility])[address] [place] [address] Hemoglobin (Bld) [Mass/Vol] 16.9 g/dL Normal 13.0-18.0 [facility] Comment on above: Performed By: #### L AB294 ####Assistant Buyer: WESTON IBARRA ([phone])[facility])[address] [place] [address] MCH (RBC) [Entitic mass] 29.3 pg Normal 26.0-34.0 [facility] Comment on above: Performed By: #### L AB294 ####Assistant Buyer: WESTON IBARRA ([phone])[facility])[address] [place] [address] MCHC 33.1 % Normal 30.5-36.0 [facility] Comment on above: Performed By: #### L AB294 ####Assistant Buyer: WESTON IBARRA ([phone])[facility] ([facility])[address] [place] [address] MCV (RBC) [Entitic vol] 88.5 fL Normal 77.0-99.0 [facility] Comment on above: Performed By: #### L AB294 ####Assistant Buyer: WESTON IBARRA ([phone])[facility])[address] [place] [address] Platelet mean volume (Bld) [Entitic vol] 10.3 fL Normal 9.0-12.7 [facility] Comment on above: Performed By: #### L AB294 ####Assistant Buyer: WESTON IBARRA ([phone])[facility])[address] [place] [address] Platelets (Bld) [#/Vol] 195 10*3/uL Normal 140-440 [facility] Comment on above: Performed By: #### L AB294 ####Assistant Buyer: WESTON IBARRA ([phone])[facility] [place] [address] RBC (Bld) [#/Vol] 5.76 10*6/uL Normal 4.40-5.90 [facility] Comment on above: Performed By: #### L AB294 ####Assistant Buyer: WESTON IBARRA ([phone])[facility])[address] [place] [address] WBC (Bld) [#/Vol] 8.7 10*3/uL Normal 3.6-10.7 [facility] Comment on above: Performed By: #### L AB294 ####Assistant Buyer: WESTON IBARRA ([phone])[facility])[address] [place] [address] CBC panel Auto (Bld)on 01-15 Erythrocyte distribution width (RBC) [Ratio] 13.7 % 11.5 - 15.0 % [facility] Hematocrit (Bld) [Volume fraction] 51 % 40.0 - 52.0 % [facility] Hemoglobin (Bld) [Mass/Vol] 16.9 g/dL 13.0 - 18.0 g/dL [facility] Interpretation and review of laboratory results Normal [facility] MCH (RBC) [Entitic mass] 29.3 pg 26.0 - 34.0 pg [facility] MCHC (RBC) [Mass/Vol] 33.1 % 30.5 - 36.0 % [facility] MCV (RBC) [Entitic vol] 88.5 fL 77.0 - 99.0 fL [facility] Platelet mean volume (Bld) [Entitic vol] 10.3 fL 9.0 - 12.7 fL [facility] Platelets (Bld) [#/Vol] 195 10*3/uL 140 - 440 10*3/uL [facility] RBC (Bld) [#/Vol] 5.76 10*6/uL 4.40 - 5.9 0 10*6/uL [facility] WBC (Bld) [#/Vol] 8.7 10*3/uL 3.6 - 10.7 10*3/uL [facility] - Chemistry and C hemistry - challengeon 01-15-2025 Glucose [Mass/Vol] 293 mg/dL High 70 - 100 mg/dL [facility] Glucose [Mass/Vol] 237 mg/dL High 70 - 100 mg/dL [facility] Glucose [Mass/Vol] 150 mg/dL High 70 - 100 mg/dL [facility] Glucose [Mass/Vol] 237 mg/dL High 70 - 100 mg/dL [facility] TSH Qn 0.71 m[IU]/L [facility] Magnesium [Mass/Vol] 1.9 mg/dL 1.6 - 2 .6 mg/dL [facility] MAGNESIUMon 01-15-2025 Magnesium [Mass/Vol] 1.9 mg/dL Normal 1.6-2.6 [facility] Comment on above: Result Comment: ELIO Vargas COMMENTS: Higher values can be expected in females during menses. Performed By: #### L AB129, [id number], LAB15 ####Assistant Buyer: WESTON IBARRA ([phone])[facility] ([facility])[address] [place] [address] Magnesium [Mass/Vol]on 01-15 Interpretation and review of laboratory results Normal [facility] Higher values can be expected in females during menses. [facility] No Panel Informationon 01-15 Interpretation and review of laboratory results Abnormal [facility] Performed by: [facility], [address] [place] [id number] CLIA ID: [id number] [facility] Interpretation and review of laboratory results Abnormal [facility] Performed by: [facility], [address] [place] [id number] CLIA ID: [id number] [facility] Interpretation and review of laboratory results Abnormal [facility] Performed by: [facility], [address] [place] [id number] CLIA ID: [id number] [facility] Interpretation and review of laboratory results Abnormal [facility] Performed by: [facility], [address] [place] [id number] CLIA ID: [id number] [facility] Progress Noteon 01-15-2025 Progress Note Nutrition rescreen completed. Chart reviewed. Patient to be monitored and followed by the diet pulmonary function technician. Normal [facility] THYROID STIMULATING HORMONEo n 01-15-2025 THYROID STIMULATING HORMONE 0.71 uIU/mL Normal 0.35-4.94 [facility] Comment on above: Performed By: #### L [id number], [id number], [id number] ####Assistant Buyer: WESTON IBARRA ([phone])[facility] ([facility])[address] [place] [address] TSH Qnon 01-15-2025 Interpretation and review of laboratory results Normal [facility] Heart TransthoracicOrdere d By: Amrit Johnson on 01-15-2025 Ao Root Index 1.5 cm/m2 [facility] Work Phone: Aortic Root 3.6 cm [facility] Work Phone: Aortic valve Mean systole pressure gradient by US.doppler derived full Bernoulli 3 mmHg [facility] Work Phone: Aortic valve Orifice area by US 3.8 cm2 [facility] Work Phone: Aortic valve Peak systolic flow by US.doppler 0.9 m/s [facility] Work Phone: Ascending Aorta 4.2 cm [facility] Work Phone: Ascending Aorta Index 1.75 cm/m2 [facility] Work Phone: AV Area by Peak Velocity 2.9 cm2 [facility] Work Phone: AV Area by VTI 2.5 cm2 [facility] Work Phone: AV Peak Gradient 5 mmHg [facility] Work Phone: AV Peak Velocity 1.1 m/s [facility] Work Phone: AV Velocity Ratio 0.82 [facility] Work Phone: AV VTI 20.2 cm [facility] Work Phone: JESSICA/BSA Peak Velocity 1.2 cm2/m2 [facility] Work Phone: JESSICA/BSA VTI 1 cm2/m2 [facility] Work Phone: EF Physician 35 % [facility] Work Phone: [phone] Est. RA Pressure 8 mmHg [facility] Work Phone: [phone] Fractional Shortening 2D 21 % 28 - 44 % [facility] Work Phone: Interpretation and review of laboratory results Abnormal [facility] Work Phone: [phone] IVC Diameter 1.9 cm [facility] Work Phone: [phone] IVSd 1 cm 0.6 - 1.0 cm [facility] Work Phone: [phone] LA Diameter 4.7 cm [facility] Work Phone: [phone] LA Size Index 1.96 cm/m2 [facility] Work Phone: LA Volume 2C 108 mL Abnormal 18 - 58 mL [facility] Work Phone: LA Volume 4C 89 mL Abnormal 18 - 58 mL [facility] Work Phone: [phone] LA Volume A/L 103 mL [facility] Work Phone: [phone] LA Volume BP 99 mL Abnormal 18 - 58 mL [facility] Work Phone: LA Volume Index 2C 45 mL/m2 Abnormal 16 - 34 mL/m2 [facility] Work Phone: LA Volume Index 4C 37 mL/m2 Abnormal 16 - 34 mL/m2 [facility] Work Phone: LA Volume Index A/L 43 mL/m2 16 - 34 mL/m2 [facility] Work Phone: [phone] LA Volume Index BP 41 ml/m2 Abnormal 16 - 34 ml/m2 [facility] Work Phone: LA/AO Root Ratio 1.31 [facility] Work Phone: Left ventricular Ejection fraction by US.2D+Calculated by biplane method of disks 43 % Abnormal 55 - 100 % [facility] Work Phone: [phone] LV E' Lateral Velocity 8 cm/s [facility] Work Phone: LV E' Septal Velocity 10 cm/s [facility] Work Phone: LV EDV A2C 173 mL [facility] Work Phone: LV EDV A4C 163 mL [facility] Work Phone: LV EDV BP 171 mL Abnormal 67 - 155 mL [facility] Work Phone: LV EDV Index A2C 72 mL/m2 [facility] Work Phone: LV EDV Index A4C 68 mL/m2 [facility] Work Phone: LV EDV Index BP 71 mL/m2 [facility] Work Phone: LV Ejection Fraction A2C 43 % [facility] Work Phone: LV Ejection Fraction A4C 43 % [facility] Work Phone: LV ESV A2C 99 mL [facility] Work Phone: LV ESV A4C 93 mL [facility] Work Phone: LV ESV BP 97 mL Abnormal 22 - 58 mL [facility] Work Phone: LV ESV Index A2C 41 mL/m2 [facility] Work Phone: LV ESV Index A4C 39 mL/m2 [facility] Work Phone: LV ESV Index BP 40 mL/m2 [facility] Work Phone: LV Mass 2D 219.7 g 88 - 224 g [facility] Work Phone: LV Mass 2D Index 91.5 g/m2 49 - 115 g/m2 [facility] Work Phone: LV RWT Ratio 0.36 [facility] Work Phone: LVIDd 5.6 cm 4.2 - 5.9 cm [facility] Work Phone: LVIDd Index 2.33 cm/m2 [facility] Work Phone: LVIDs 4.4 cm [facility] Work Phone: LVIDs Index 1.83 cm/m2 [facility] Work Phone: LVOT Cardiac Output 4.5 liter/minute [facility] Work Phone: [phone] LVOT Diameter 2.2 cm [facility] Work Phone: [phone] LVOT Mean Gradient 2 mmHg [facility] Work Phone: [phone] LVOT Peak Gradient 3 mmHg [facility] Work Phone: [phone] LVOT Peak Velocity 0.9 m/s [facility] Work Phone: [phone] LVOT Stroke Volume Index 21.2 mL/m2 [facility] Work Phone: [phone] LVOT SV 50.9 ml [facility] Work Phone: [phone] LVOT VTI 13.4 cm [facility] Work Phone: [phone] LVOT:AV VTI Index 0.66 [facility] Work Phone: [phone] LVPWd 1 cm 0.6 - 1.0 cm [facility] Work Phone: RA Area 4C 109.3 mL [facility] Work Phone: [phone] RA Area 4C 108.4 mL [facility] Work Phone: [phone] RA area length vol 109 mL [facility] Work Phone: [phone] RV Basal Dimension 6.1 cm [facility] Work Phone: [phone] RV Free Wall Peak S' 11 cm/s [facility] Work Phone: [phone] RV Longitudinal Dimension 7.8 cm [facility] Work Phone: [phone] RV Mid Dimension 4.5 cm [facility] Work Phone: [phone] RVSP 47 mmHg [facility] Work Phone: [phone] TAPSE 1.6 cm Abnormal 1.7 cm [facility] Work Phone: [phone] TR Max Velocity 3.13 m/s [facility] Work Phone: [phone] TR Peak Gradient 39 mmHg [facility] Work Phone: [phone] [facility] Work Phone: [phone] US Heart Transthoracicon Left Ventricle: Left ventricle size is normal. Normal wall thickness. Moderately reduced left ventricular systolic function. EF by visual approximation is 35%. See diagram for wall motion findings. Grade III diastolic dysfunction with increased LAP. Right Ventricle: Right ventricle is severely dilated. Mildly reduced systolic function. Tricuspid Valve: Mild to moderate (1-2+) regurgitation. RVSP is 47 mmHg. Left Atrium: Left atrium is moderately dilated. Left atrium size is moderately increased (LA volume index 42-48 mL/m2). Right Atrium: Right atrium is dilated. Aorta: Normal sized sinuses of Valsalva. Dilated ascending aorta. Ao ascending diameter is 4.2 cm. Pericardium: No pericardial effusion. No significant valvular abnormalities. Left Ventricle Left ventricle size is normal. Normal wall thickness. Moderately reduced left ventricular systolic function. EF by visual approximation is 35%. See diagram for wall motion findings. Grade III diastolic dysfunction with increased LAP. Right Ventricle Right ventricle is severely dilated. Mildly reduced systolic function. Left Atrium Left atrium is moderately dilated. Left atrium size is moderately increased (LA volume index 42-48 mL/m2). Right Atrium Right atrium is dilated. IVC/SVC IVC diameter is normal and decreases less than 50% during inspiration; therefore the estimated right atrial pressure is intermediate (~8 mmHg). Mitral Valve Valve structure is normal. Trace regurgitation. No stenosis noted. Tricuspid Valve Valve structure is normal. Mild to moderate (1-2+) regurgitation. RVSP is 47 mmHg. Aortic Valve Not well visualized. No cusp thickening. No cusp calcification. No regurgitation. No stenosis. Pulmonic Valve The pulmonic valve was not well visualized. Trace regurgitation. Ascending Aorta Normal sized sinuses of Valsalva. Dilated ascending aorta. Ao ascending diameter is 4.2 cm. Pericardium No pericardial effusion. Septum Interatrial septum was not well visualized. Study Details Image quality: technically difficult. Heart rate: 85 bpm. Blood pressure: 118/86 mmHg. Technical qualifiers: Technically difficult study, technically difficult study with poor endocardial visualization and technically difficult study due to patient's body habitus. Ultrasound enhancement agent was given to enhance imaging. Echo Additional Conclusions No significant valvular abnormalities. Wall Scoring Baseline Score Index: 2.47 The following segments are dyskinetic: basal anteroseptal, basal inferoseptal and mid inferoseptal. The following segments are akinetic: mid anteroseptal, mid inferolateral, apical septal, apical inferior, apical lateral and apex. The following segments are hypokinetic: basal anterolateral, mid anterior, mid inferior and mid anterolateral. All other segments are normal. CV CPACS 30on 01-14-2025 30 Problem: Knowledge Deficit Goal: Patient/family/caregi bridgett demonstrates understanding of disease process, treatment plan, medications, and discharge instructions Outcome: Progressing Problem: Hemodynamic Status Goal: Patient's vitals signs are stable Outcome: Progressing Problem: Excessive Fluid Volume Goal: Fluid and electrolyte balance are achieved/maintained Outcome: Progressing Normal [facility] BASIC METABOLIC PANELon - Anion gap [Moles/Vol] 8 mmol/L Normal 3-13 [facility] Comment on above: Performed By: #### L AB15, [id number] ####Assistant Buyer: WESTON IBARRA ([phone])[facility] ([facility])[address] [place] [address] Calcium [Mass/Vol] 8.6 mg/dL Low 8.8-10.0 [facility] Comment on above: Performed By: #### L AB15, [id number] ####Assistant Buyer: WESTON IBARRA ([phone])[facility] ([facility] [place] [address] [place] Chloride [Moles/Vol] 99 mmol/L Normal 98-107 [facility] Comment on above: Performed By: #### L AB15, [id number] ####Assistant Buyer: WESTON IBARRA ([phone])[facility] ([facility] [place] [address] [place] CO2 [Moles/Vol] 30 mmol/L Normal 23-31 [facility] Comment on above: Performed By: #### L AB15, [id number] ####Assistant Buyer: WESTON IBARRA ([phone])[facility] ([facility])[address] [place] [address] Creatinine [Mass/Vol] 1.20 mg/dL Normal 0.72-1.25 [facility] Comment on above: Performed By: #### L AB15, [id number] ####Assistant Buyer: WESTON IBARRA ([id number])[facility] GLOMERULAR FILTRATION RATE ML/MIN/1.73 SQ M.PREDICTED 68.8 mL/min/1.73m*2 Normal >60.0 [facility] Comment on above: Result Comment: Calc ulation based on the Chronic Kidney Disease Epidemiology Collaboration (CKD-EPI) equation refit without adjustment for race Performed By: #### L AB15, [id number] ####Assistant Buyer: WESTON IBARRA ([phone])[address] Glucose [Mass/Vol] 147 mg/dL High 82-115 [facility] Comment on above: Performed By: #### L AB15, [id number] ####Assistant Buyer: WESTON IBARRA ([phone])[address] Potassium [Moles/Vol] 4.1 mmol/L Normal 3.5-5.1 [facility] Comment on above: Result Comment: TC Significant interference from hemolysis. Result integrity compromised. Interpret with caution. Performed By: #### L AB15, [id number] ####Assistant Buyer: WESTON IBARRA ([phone])[address] Sodium [Moles/Vol] 137 mmol/L Normal 136-145 [facility] Comment on above: Performed By: #### L AB15, [id number] ####Assistant Buyer: WESTON IBARRA ([phone])[address] Urea nitrogen [Mass/Vol] 13 mg/dL Normal 9-23 [facility] Comment on above: Performed By: #### L AB15, [id number] ####Assistant Buyer: WESTON IBARRA ([phone])[address] Basic metabolic 1998 panelon 01-14-2025 Anion gap [Moles/Vol] 8 mmol/L 3 - 13 mmol/L [facility] Calcium [Mass/Vol] 8.6 mg/dL Low 8.8 - 10. 0 mg/dL [facility] Chloride [Moles/Vol] 99 mmol/L 98 - 10 7 mmol/L [facility] CO2 [Moles/Vol] 30 mmol/L 23 - 31 mmol/L [facility] Creatinine [Mass/Vol] 1.2 mg/dL 0.72 - 1.25 mg/dL [facility] GFR/1.73 sq M.predicted (S/P/Bld) [Vol rate/Area] 68.8 mL/min - PINF [facility] Comment on above: Calculation based on the Chronic Kidney Disease Epidemiology Collaboration (CKD-EPI) equation refit without adjustment for race Glucose [Mass/Vol] 147 mg/dL High 82 - 115 mg/dL [facility] Interpretation and review of laboratory results Abnormal [facility] Potassium [Moles/Vol] 4.1 mmol/L 3.5 - 5.1 mmol/L [facility] Comment on above: TC Significant interference from hemolysis. Result integrity compromised. Interpret with caution. Sodium [Moles/Vol] 137 mmol/L 136 - 145 mmol/L [facility] Urea nitrogen [Mass/Vol] 13 mg/dL 9 - 23 mg/dL [facility] CBC W Auto Differential pane l (Bld)on 01-14-2025 Basophils (Bld) [#/Vol] 0 10*3/uL 0.0 - 0.2 10*3/uL [facility] Basophils/100 WBC (Bld) 0.2 % 0.0 - 2.0 % [facility] Eosinophils (Bld) [#/Vol] 0.4 10*3/uL 0.0 - 0.5 10*3/uL [facility] Eosinophils/100 WBC (Bld) 4.2 % 0.0 - 6.0 % [facility] Erythrocyte distribution width (RBC) [Ratio] 13.6 % 11.5 - 15.0 % [facility] Hematocrit (Bld) [Volume fraction] 50.1 % 40.0 - 52.0 % [facility] Hemoglobin (Bld) [Mass/Vol] 16.6 g/dL 13.0 - 18.0 g/dL [facility] Immature granulocytes (Bld) [#/Vol] 0 10*3/uL NINF - 0.1 10*3/uL [facility] Immature granulocytes/100 WBC (Bld) 0.3 % 0.0 - 2.0 % [facility] Interpretation and review of laboratory results Normal [facility] Lymphocytes (Bld) [#/Vol] 2.5 10*3/uL 1.0 - 4.3 10*3/uL [facility] Lymphocytes/100 WBC (Bld) 28.2 % 15.0 - 45.0 % [facility] MCH (RBC) [Entitic mass] 29.9 pg 26.0 - 34.0 pg [facility] MCHC (RBC) [Mass/Vol] 33.1 % 30.5 - 36.0 % [facility] MCV (RBC) [Entitic vol] 90.3 fL 77.0 - 99.0 fL [facility] Monocytes (Bld) [#/Vol] 0.9 10*3/uL 0.0 - 0.9 10*3/uL [facility] Monocytes/100 WBC (Bld) 10.8 % 5.0 - 13.0 % [facility] Neutrophils (Bld) [#/Vol] 4.9 10*3/uL 1.8 - 7.5 10*3/uL [facility] Neutrophils/100 WBC (Bld) 56.3 % 38.0 - 82.0 % [facility] Nucleated RBC/100 WBC (Bld) [Ratio] 0 % [facility] Platelet mean volume (Bld) [Entitic vol] 10.6 fL 9.0 - 12.7 fL [facility] Platelets (Bld) [#/Vol] 219 10*3/uL 140 - 440 10*3/uL [facility] RBC (Bld) [#/Vol] 5.55 10*6/uL 4.40 - 5.9 0 10*6/uL [facility] WBC (Bld) [#/Vol] 8.7 10*3/uL 3.6 - 10.7 10*3/uL [facility] CBC WITH AUTO DIFFERENTIALon 01-14-2025 Basophils (Bld) [#/Vol] 0.0 10*3/uL Normal 0.0-0.2 [facility] Comment on above: Performed By: #### L [id number] ####Assistant Buyer: WESTON IBARRA ([phone])[facility] ([address] Basophils/100 WBC (Bld) 0.2 % Normal 0.0-2.0 [facility] Comment on above: Performed By: #### L [id number] ####Assistant Buyer: WESTON IBARRA ([phone])[facility])[address] [place] [address] Eosinophils (Bld) [#/Vol] 0.4 10*3/uL Normal 0.0-0.5 [facility] Comment on above: Performed By: #### L [id number] ####Assistant Buyer: WESTON IBARRA ([phone])[facility])[address] [place] [address] Eosinophils/100 WBC (Bld) 4.2 % Normal 0.0-6.0 [facility] Comment on above: Performed By: #### L [id number] ####Assistant Buyer: WESTON IBARRA ([phone])[facility])[address] [place] [address] Erythrocyte distribution width (RBC) [Ratio] 13.6 % Normal 11.5-15.0 [facility] Comment on above: Performed By: #### L [id number] ####Assistant Buyer: WESTON IBARRA ([phone])[facility])[address] [place] [address] Hematocrit (Bld) [Volume fraction] 50.1 % Normal 40.0-52.0 [facility] Comment on above: Performed By: #### L [id number] ####Assistant Buyer: WESTON IBARRA ([phone])[facility])[address] [place] [address] Hemoglobin (Bld) [Mass/Vol] 16.6 g/dL Normal 13.0-18.0 [facility] Comment on above: Performed By: #### L [id number] ####Assistant Buyer: WESTON IBARRA ([phone])[facility])[address] [place] [address] IMMATURE GRANS % 0.3 % Normal 0.0-2.0 [facility] Comment on above: Performed By: #### L [id number] ####Assistant Buyer: WESTON IBARRA ([phone])[address] IMMATURE GRANS ABSOLUTE 0.0 10*3/uL Normal <0.1 [facility] Comment on above: Performed By: #### L [id number] ####Assistant Buyer: WESTON IBARRA ([id number])[facility])[address] [place] [address] Lymphocytes (Bld) [#/Vol] 2.5 10*3/uL Normal 1.0-4.3 [facility] Comment on above: Performed By: #### L [id number] ####Assistant Buyer: WESTON IBARRA ([id number])[address] Lymphocytes/100 WBC (Bld) 28.2 % Normal 15.0-45.0 [facility] Comment on above: Performed By: #### L [id number] ####Assistant Buyer: WESTON IBARRA ([phone])[address] MCH (RBC) [Entitic mass] 29.9 pg Normal 26.0-34.0 [facility] Comment on above: Performed By: #### L [id number] ####Assistant Buyer: WESTON IBARRA ([phone])[address] MCHC 33.1 % Normal 30.5-36.0 [facility] Comment on above: Performed By: #### L [id number] ####Assistant Buyer: WESTON IBARRA ([id number])[address] MCV (RBC) [Entitic vol] 90.3 fL Normal 77.0-99.0 [facility] Comment on above: Performed By: #### L [id number] ####Assistant Buyer: WESTON IBARRA ([id number])[facility])[address] [place] [address] Monocytes (Bld) [#/Vol] 0.9 10*3/uL Normal 0.0-0.9 [facility] Comment on above: Performed By: #### L [id number] ####Assistant Buyer: WESTON IBARRA ([id number])[facility] ([facility])[address] [place] [address] Monocytes/100 WBC (Bld) 10.8 % Normal 5.0-13.0 [facility] Comment on above: Performed By: #### L [id number] ####Assistant Buyer: WESTON IBARRA ([phone])[facility] ([facility])[address] [place] [address] NEUTROPHILS ABSOLUTE 4.9 10*3/uL Normal 1.8-7.5 [facility] Comment on above: Performed By: #### L [id number] ####Assistant Buyer: WESTON IBARRA ([phone])[facility] ([facility])[address] [place] [address] Neutrophils/100 WBC (Bld) 56.3 % Normal 38.0-82.0 [facility] Comment on above: Performed By: #### L [id number] ####Assistant Buyer: WESTON IBARRA ([id number])[facility] ([facility])[address] [place] [address] NRBC 0.0 /100 WBCs Normal 0.0-2.0 [facility] Comment on above: Performed By: #### L [id number] ####Assistant Buyer: WESTON IBARRA ([phone])[facility] ([facility])[address] [place] [address] Platelet mean volume (Bld) [Entitic vol] 10.6 fL Normal 9.0-12.7 [facility] Comment on above: Performed By: #### L [id number] ####Assistant Buyer: WESTON IBARRA ([id number])[facility] ([facility])[address] [place] [address] [place] Platelets (Bld) [#/Vol] 219 10*3/uL Normal 140-440 [facility] Comment on above: Performed By: #### L [id number] ####Assistant Buyer: WESTON CONNERKimberly ([id number])[facility] ([facility])[address] [place] [address] RBC (Bld) [#/Vol] 5.55 10*6/uL Normal 4.40-5.90 [facility] Comment on above: Performed By: #### L [id number] ####Assistant Buyer: WESTON CONNERKimberly ([phone])[facility] ([facility])[address] [place] [address] WBC (Bld) [#/Vol] 8.7 10*3/uL Normal 3.6-10.7 [facility] Comment on above: Performed By: #### L [id number] ####Assistant Buyer: WESTON ARMINDASPARKLE ([phone])[facility] ([facility])[address] [place] [address] Consulton 01-14-2025 Consult [facility] Cardiology/ Electrophysiology Consult Note Reason for Consult/Chief Complaint: SOB Consulting MD: Dr. Bahena History of Present Illness: Venkat Marsh is a 59 y.o. male with known CAD s/p remote OK with PCI to LAD in 2011, hypertension, hyperlipidemia, T2DM, ELBERT not on CPAP therapy, tobacco abuse and morbid obesity presented with worsening SOB, lower leg edema, abdominal distension, weight gain in the setting of medication non-compliance for 1 month. He complains of whole body cramps due to lasix as per patient/ He has had same symptoms in the past. He continues to c/o SOB, abdominal distension. He denies CP, palpitations, recent syncopal episodes. ECG: NSR, no ischemic changes Left heart cath 03/2024 mild coronary disease Ejection fraction 03/2024 was 17% diastolic not evaluated due to AF LHC at [facility] 03/2024 LAD: The proximal LAD is narrowed 20 % - ISR. Additional Comment: Has mild diffuse disease throughout. There is a patent stent in the proximal LAD. The proximal stage of the stent has focal 20% stenosis. LCX: _ The proximal circumflex is narrowed 40 % - ostial. Additional Comment: Has ostial 40% stenosis. RAMUS: _ Ramus Status: Not Applicable. RCA: The proximal RCA is narrowed 20 % - ISR. Additional Comment: Has patent stent in the proximal portion. It has mild ISR. Left Ventriculogram:Mildly elevated at 17 mmHg. Echo 03/2024 The left ventricle is mildly dilated. There is mild concentric left ventricular hypertrophy. Left ventricular systolic function is severely decreased. EF = 17 ? 5% (2D biplane) Definity contrast used for endocardial border detection. Left ventricular diastolic function was not evaluated due to AF. Severe diffuse hypokinesis - The right ventricle is dilated. Right ventricular systolic function is moderately decreased. - The left atrial cavity is mildly dilated. - The right atrial cavity is dilated. - The visualized aorta is dilated with a maximal dimension of 4.1 cm. - Estimated right ventricular systolic pressure is 56 mmHg consistent with moderate pulmonary hypertension. Estimated right atrial pressure is 15 mmHg based on IVC assessment. Past Medical History: Past Medical History: Diagnosis Date CAD (coronary artery disease) CHF (congestive heart failure) (HCC) Depression Hyperlipidemia Hypertension OK (mitral incompetence) Past Surgical History: Past Surgical History: Procedure Laterality Date CORONARY ANGIOPLASTY WITH STENT PLACEMENT Family History: No family history on file. Social History: Social History Tobacco Use Smoking status: Every Day Current packs/day: 0.50 Types: Cigarettes Substance Use Topics Alcohol use: No Drug use: No Medications: amLODIPine, 2.5 mg, Oral, Daily aspirin, 81 mg, Oral, Daily cetirizine, 5 mg, Oral, Daily enoxaparin, 40 mg, SubCUTAneous, q24h furosemide, 80 mg, IntraVENous, BID insulin glargine, 20 Units, SubCUTAneous, Nightly insulin lispro, 0-6 Units, SubCUTAneous, TID WC And insulin lispro, 0-6 Units, SubCUTAneous, Nightly ipratropium-albuterol , 3 mL, Nebulization, 4x daily levothyroxine, 125 mcg, Oral, qAM AC metoprolol succinate XL, 25 mg, Oral, Daily mirtazapine, 15 mg, Oral, Nightly mometasone-formoterol , 2 puff, Inhalation, BID Allergies: Reviewed Review of Systems: All other systems were reviewed and are negative other than as noted in the HPI. Physical Examination: Vitals: Blood pressure 121/88, pulse 80, temperature 36.3 ?C (97.4 ?F), temperature source Temporal, resp. rate 16, height 5' 7 (1.702 m), weight 300 lb (136 kg), SpO2 94%. @IODETAILS@ @[id number]@ Constitutional: No acute distress. Well-nourished. Well hydrated. Psychiatric: A &O x 3. Mood is normal. Affect is appropriate. Eyes: Pupils are equal and round; Conjunctiva are not injected; Sclera are non-icteric. ENMT: Ears/nose without external abnormalities. Oral mucosa is pink and moist. Neck: elevated JVD. No carotid bruits; No thyromegaly. Respiratory: Lungs are diminished sounds. No rales or wheezes. Respiratory effort is normal and symmetrical bilaterally; Good air movement bilaterally. Heart: ; Normal S1 and S2. no murmur; No rub; no gallop. Vasc: Peripheral pulses normal. Abdomen: Normal BS, soft, non-tender, non-distended; no hepatomegaly. Extremities/Skin: +1 LE edema; Skin warm to touch and well perfused; skin coloration is red. Musculoskeletal: Head - normocephalic. Neck - supple Laboratory Tests: @[id number](WBC:5,H GB:5,HCT:5,MCV:5,PLT: 5)@ @[id number](NA:5,K: 5,CL:5,CO2:5,BUN:5,Cr eatinine:5, GLU:5)@ Lab Results Component Value Date HGBA1C 9.2 (H) 01/13/2025 No results found for: TSH No results found for: CHOL No results found for: HDL No results found for: LDLCALC No results found for: TRIG No results found for: CHOLHDL @[id number](CKTOTAL :5,CKMB:5,CKMBINDEX:5 ,TROPONINI:5)@ No (more content not included)... Normal [facility] ECG 12-LEADon 01-14-2025 ECG 12-LEAD IMPRESSION: Sinus rhythm Prolonged UT interval Nonspecific intraventricular conduction delay ST elevation secondary to IVCD Electronically Signed On 01-14-2025 00:15:12 EDT by Dajuan Pruitt [facility] ED Nursing Noteon 01-14-2025 ED Nursing Note Report received from Courtney. Pt re enters my care at this time [facility] ED Nursing Note Report given to Courtney . Pt exits my care at this time [facility] HIGH SENSITIVITY TROPONIN, S MANASA, THIRD TESTon 01-14-2025 4H TROPONIN HS (SERIAL 3RD TROPONIN) 21 ng/L Normal <=35 [facility] Comment on above: Result Comment: 4h t roponin (3rd troponin) samples collected between 1h 40 min and 2h and 20 min of the 2h troponin collection time can be utilized to interpret delta troponins as per [facility] algorithms. Samples collected outside this timeframe need to be interpreted clinically. Rising or falling troponin delta below 2 ng/L as compared to 2h troponin value suggests that acute cardiac injury is unlikely. Performed By: #### L [id number] ####Assistant Buyer: WESTON IBARRA ([phone])[facility] ([address] Laboratory - Chemistry and C hemistry - challengeon 01-14-2025 Glucose [Mass/Vol] 252 mg/dL High 70 - 100 mg/dL [facility] Glucose [Mass/Vol] 238 mg/dL High 70 - 100 mg/dL [facility] Magnesium [Mass/Vol] 2 mg/dL 1.6 - 2 .6 mg/dL [facility] Glucose [Mass/Vol] 267 mg/dL High 70 - 100 mg/dL [facility] Glucose [Mass/Vol] 140 mg/dL High 70 - 100 mg/dL [facility] Average glucose Estimated from glycated hemoglobin (Bld) [Mass/Vol] 217 mg/dL [facility] Glucose [Mass/Vol] 136 mg/dL High 70 - 100 mg/dL [facility] Laboratory - Hematology and Cell countson 01-14-2025 HbA1c (Bld) [Mass fraction] 9.2 % High NINF [facility] Comment on above: Normal less than 5.7 % Prediabetes 5.7% to 6.4% Diabetes 6.5% or higher --HgbA1C levels may not be accurate in patients who have renal disease, received recent blood transfusions, are anemic, or who have dyshemoglobinemia. MAGNESIUMon 01-14-2025 Magnesium [Mass/Vol] 2.0 mg/dL Normal 1.6-2.6 [facility] Comment on above: Result Comment: ELIO Vargas COMMENTS: Higher values can be expected in females during menses. Performed By: #### L [id number], [id number] ####Assistant Buyer: WESTON IBARRA ([phone])[facility] ([facility])[address] [place] [address] Magnesium [Mass/Vol]on 01-14 Interpretation and review of laboratory results Normal [facility] Higher values can be expected in females during menses. [facility] No Panel Informationon 01-14 Interpretation and review of laboratory results Abnormal [facility] Performed by: [facility], [address] [place] [address] CLIA ID: [id number] [facility] No evidence of deep vein and superficial thrombosis in the right lower extremity. No evidence of deep vein and superficial thrombosis in the left lower extremity. Bilateral venous flow is pulsatile. Right Lower Venous No evidence of deep vein and superficial thrombosis in the right lower extremity. Common Femoral Vein: Pulsatile flow, spontaneous and fully compressible. Greater Saphenous Vein: Fully compressible. Profunda Femoral Vein: Spontaneous. Proximal Femoral Vein: Fully compressible. Middle Femoral Vein: Pulsatile flow, spontaneous and fully compressible. Distal Femoral Vein: Fully compressible. Popliteal Vein: Pulsatile flow, spontaneous and fully compressible. Gastrocnemius Vein: Fully compressible. Soleal Vein: Fully compressible. Posterior Tibial Vein: Fully compressible. Peroneal Vein: Fully compressible. Left Lower Venous No evidence of deep vein and superficial thrombosis in the left lower extremity. Common Femoral Vein: Pulsatile flow, spontaneous and fully compressible. Greater Saphenous Vein: Fully compressible. Profunda Femoral Vein: Spontaneous. Proximal Femoral Vein: Fully compressible. Middle Femoral Vein: Pulsatile flow, spontaneous and fully compressible. Distal Femoral Vein: Fully compressible. Popliteal Vein: Pulsatile flow, spontaneous and fully compressible. Gastrocnemius Vein: Fully compressible. Soleal Vein: Fully compressible. Posterior Tibial Vein: Fully compressible. Peroneal Vein: Fully compressible. [employer] Details A jackson scale, color Doppler imaging and spectral Doppler analysis ultrasound was performed. During the study longitudinal and transverse views were obtained. Pulsed wave doppler was performed. The exam was performed with the patient in the supine position. Overall the study quality was adequate. Study was technically difficult due to: bedside exam. CV CPA Interpretation and review of laboratory results Abnormal [facility] Performed by: [facility], [address] [place] [id number] CLIA ID: [id number] [facility] Interpretation and review of laboratory results Abnormal [facility] Performed by: [facility], [address] [place] [address] CLIA ID: [id number] [facility] Interpretation and review of laboratory results Abnormal [facility] Performed by: [facility], [address] [place] [address] CLIA ID: [id number] [facility] 4h Troponin HS (Serial 3rd Troponin) 21 ng/L NINF - 35 ng/L [facility] Comment on above: 4h troponin (3rd tro ponin) samples collected between 1h 40 min and 2h and 20 min of the 2h troponin collection time can be utilized to interpret delta troponins as per [facility] algorithms. Samples collected outside this timeframe need to be interpreted clinically. Rising or falling troponin delta below 2 ng/L as compared to 2h troponin value suggests that acute cardiac injury is unlikely. Interpretation and review of laboratory results Normal [facility] Interpretation and review of laboratory results Abnormal [facility] HbA1c values of 5.7-6.4 percent indicate an increased risk for developing diabetes mellitus. HbA1c values greater than or equal to 6.5 percent are diagnostic of diabetes mellitus. For diagnosis of diabetes in individuals without unequivocal hyperglycemia, results should be confirmed by repeat testing. [facility] Interpretation and review of laboratory results Abnormal [facility] Performed by: [facility], [address] [place] [address] CLIA ID: [id number] [facility] Sinus rhythm Prolonged UT interval Nonspecific intraventricular conduction delay ST elevation secondary to IVCD Electronically Signed On 01-14-2025 00:15:12 EDT by Dajuan Pruitt Dajuan Royal MD - 01/14/2025 IMPRESSION: Sinus rhythm Prolonged UT interval Nonspecific intraventricular conduction delay ST elevation secondary to IVCD Electronically Signed On 01-14-2025 00:15:12 EDT by Dajuan Pruitt [facility] No Panel InformationOrdered By: Yana Lex on 01-14-2025 Left CFV Rfx 0.9 s [facility] Work Phone: No Panel InformationOrdered By: Dajuan Pruitt on 01-14-2025 P Center Line 43 degrees [facility] Work Phone: UT Interval 259 ms [facility] Work Phone: QRS Center Line 136 degrees [facility] Work Phone: QRSD Interval 147 ms [facility] Work Phone: QT Interval 414 ms [facility] Work Phone: QTC Interval 502 ms [facility] Work Phone: T Wave Center Line -50 degrees [facility] Work Phone: [facility] Work Phone: Nursing Noteon 01-14-2025 Nursing Note Gave pt another urinal to use and educated him on the importance of measuring his urine output while being on IV bumex. Pt voiced understanding. At 2200, I went in to check on the pt and he was using the bathroom, when he came out he still did not use the urinal. Education was again provided. Normal [facility] Vital signsOrdered By: Wilbert Pruitt on 01-14-2025 Heart rate 88 /min bpm [facility] Work Phone: CBC W Auto Differential pane l (Bld)on 01-13-2025 Basophils (Bld) [#/Vol] 0 10*3/uL 0.0 - 0.2 10*3/uL [facility] Basophils/100 WBC (Bld) 0.3 % 0.0 - 2.0 % [facility] Eosinophils (Bld) [#/Vol] 0.4 10*3/uL 0.0 - 0.5 10*3/uL [facility] Eosinophils/100 WBC (Bld) 4.1 % 0.0 - 6.0 % [facility] Erythrocyte distribution width (RBC) [Ratio] 13.6 % 11.5 - 15.0 % [facility] Hematocrit (Bld) [Volume fraction] 52.2 % High 40.0 - 52.0 % [facility] Hemoglobin (Bld) [Mass/Vol] 17.2 g/dL 13.0 - 18.0 g/dL [facility] Immature granulocytes (Bld) [#/Vol] 0 10*3/uL NINF - 0.1 10*3/uL [facility] Immature granulocytes/100 WBC (Bld) 0.3 % 0.0 - 2.0 % [facility] Interpretation and review of laboratory results Abnormal [facility] Lymphocytes (Bld) [#/Vol] 2.9 10*3/uL 1.0 - 4.3 10*3/uL [facility] Lymphocytes/100 WBC (Bld) 31.3 % 15.0 - 45.0 % [facility] MCH (RBC) [Entitic mass] 29.5 pg 26.0 - 34.0 pg [facility] MCHC (RBC) [Mass/Vol] 33 % 30.5 - 36.0 % [facility] MCV (RBC) [Entitic vol] 89.4 fL 77.0 - 99.0 fL [facility] Monocytes (Bld) [#/Vol] 1.1 10*3/uL High 0.0 - 0.9 10*3/uL [facility] Monocytes/100 WBC (Bld) 11.3 % 5.0 - 13.0 % [facility] Neutrophils (Bld) [#/Vol] 5 10*3/uL 1.8 - 7.5 10*3/uL [facility] Neutrophils/100 WBC (Bld) 52.7 % 38.0 - 82.0 % [facility] Nucleated RBC/100 WBC (Bld) [Ratio] 0 % [facility] Platelet mean volume (Bld) [Entitic vol] 10.3 fL 9.0 - 12.7 fL [facility] Platelets (Bld) [#/Vol] 190 10*3/uL 140 - 440 10*3/uL [facility] RBC (Bld) [#/Vol] 5.84 10*6/uL 4.40 - 5.9 0 10*6/uL [facility] WBC (Bld) [#/Vol] 9.4 10*3/uL 3.6 - 10.7 10*3/uL [facility] CBC WITH AUTO DIFFERENTIALon 01-13-2025 Basophils (Bld) [#/Vol] 0.0 10*3/uL Normal 0.0-0.2 [facility] Comment on above: Performed By: #### L [id number] ####Assistant Buyer: WESTON IBARRA ([phone])[facility] ([facility])[address] [place] [address] Basophils/100 WBC (Bld) 0.3 % Normal 0.0-2.0 [facility] Comment on above: Performed By: #### L [id number] ####Assistant Buyer: WESTON IBARRA ([phone])[facility])[address] [place] [address] Eosinophils (Bld) [#/Vol] 0.4 10*3/uL Normal 0.0-0.5 [facility] Comment on above: Performed By: #### L [id number] ####Assistant Buyer: WESTON IBARRA ([phone])[facility])[address] [place] [address] Eosinophils/100 WBC (Bld) 4.1 % Normal 0.0-6.0 [facility] Comment on above: Performed By: #### L [id number] ####Assistant Buyer: WESTON IBARRA ([phone])[facility])[address] [place] [address] Erythrocyte distribution width (RBC) [Ratio] 13.6 % Normal 11.5-15.0 [facility] Comment on above: Performed By: #### L [id number] ####Assistant Buyer: WESTON IBARRA ([phone])[facility])[address] [place] [address] Hematocrit (Bld) [Volume fraction] 52.2 % High 40.0-52.0 [facility] Comment on above: Performed By: #### L [id number] ####Assistant Buyer: WESTON IBARRA ([phone])[facility])[address] [place] [address] Hemoglobin (Bld) [Mass/Vol] 17.2 g/dL Normal 13.0-18.0 [facility] Comment on above: Performed By: #### L [id number] ####Assistant Buyer: WESTON IBARRA ([phone])[facility])[address] [place] [address] IMMATURE GRANS % 0.3 % Normal 0.0-2.0 [facility] Comment on above: Performed By: #### L [id number] ####Assistant Buyer: WESTON IBARRA ([phone])[facility])[address] [place] [address] IMMATURE GRANS ABSOLUTE 0.0 10*3/uL Normal <0.1 [facility] Comment on above: Performed By: #### L [id number] ####Assistant Buyer: WESTON IBARRA ([phone])[address] Lymphocytes (Bld) [#/Vol] 2.9 10*3/uL Normal 1.0-4.3 [facility] Comment on above: Performed By: #### L [id number] ####Assistant Buyer: WESTON IBARRA ([phone])[facility])[address] [place] [address] Lymphocytes/100 WBC (Bld) 31.3 % Normal 15.0-45.0 [facility] Comment on above: Performed By: #### L [id number] ####Assistant Buyer: WESTON IBARRA ([phone])[address] MCH (RBC) [Entitic mass] 29.5 pg Normal 26.0-34.0 [facility] Comment on above: Performed By: #### L [id number] ####Assistant Buyer: WESTON IBARRA ([phone])[address] MCHC 33.0 % Normal 30.5-36.0 [facility] Comment on above: Performed By: #### L [id number] ####Assistant Buyer: WESTON IBARRA ([phone])[facility] ([facility])[address] [place] [address] MCV (RBC) [Entitic vol] 89.4 fL Normal 77.0-99.0 S [facility] Comment on above: Performed By: #### L [id number] ####Assistant Buyer: WESTON IBARRA ([phone])[facility] ([facility])[address] [place] [address] [place] Monocytes (Bld) [#/Vol] 1.1 10*3/uL High 0.0-0.9 [facility] Comment on above: Performed By: #### L [id number] ####Assistant Buyer: WESTON IBARRA ([phone])[facility] ([facility])[address] [place] [address] Monocytes/100 WBC (Bld) 11.3 % Normal 5.0-13.0 [facility] Comment on above: Performed By: #### L [id number] ####Assistant Buyer: WESTON IBARRA ([phone])[facility] ([facility])[address] [place] [address] NEUTROPHILS ABSOLUTE 5.0 10*3/uL Normal 1.8-7.5 [facility] Comment on above: Performed By: #### L [id number] ####Assistant Buyer: WESTON IBARRA ([phone])[facility] ([facility])[address] [place] [address] Neutrophils/100 WBC (Bld) 52.7 % Normal 38.0-82.0 [facility] Comment on above: Performed By: #### L [id number] ####Assistant Buyer: WESTON IBARRA ([phone])[facility] ([facility])[address] [place] [address] NRBC 0.0 /100 WBCs Normal 0.0-2.0 [facility] Comment on above: Performed By: #### L [id number] ####Assistant Buyer: WESTON IBARRA ([phone])[facility] ([facility])[address] [place] [address] Platelet mean volume (Bld) [Entitic vol] 10.3 fL Normal 9.0-12.7 [facility] Comment on above: Performed By: #### L [id number] ####Assistant Buyer: WESTON IBARRA ([phone])[facility])[address] [place] [address] Platelets (Bld) [#/Vol] 190 10*3/uL Normal 140-440 [facility] Comment on above: Performed By: #### L [id number] ####Assistant Buyer: WESTON IBARRA ([phone])[facility])[address] [place] [address] RBC (Bld) [#/Vol] 5.84 10*6/uL Normal 4.40-5.90 [facility] Comment on above: Performed By: #### L [id number] ####Assistant Buyer: WESTON IBARRA ([phone])[facility])[address] [place] [address] WBC (Bld) [#/Vol] 9.4 10*3/uL Normal 3.6-10.7 [facility] Comment on above: Performed By: #### L [id number] ####Assistant Buyer: WESTON IBARRA ([phone])[facility])[address] [place] [address] COMPREHENSIVE METABOLIC PANE Deshaun 01-13-2025 Albumin [Mass/Vol] 3.3 g/dL Low 3.4-4.8 [facility] Comment on above: Performed By: #### L [id number], LAB17, [id number] ####Assistant Buyer: WESTON IBARRA ([phone])[facility])[address] [place] [address] ALP [Catalytic activity/Vol] 67 U/L Normal 40-150 [facility] Comment on above: Performed By: #### L [id number], LAB17, [id number] ####Assistant Buyer: WESTON IBARRA ([phone])[facility])[address] [place] [address] [place] ALT [Catalytic activity/Vol] 22 U/L Normal <40 [facility] Comment on above: Performed By: #### Maggie [id number], LAB17, [id number] ####Assistant Buyer: WESTON IBARRA ([phone])[facility] ([facility])[address] [place] [address] Anion gap [Moles/Vol] 9 mmol/L Normal 3-13 [facility] Comment on above: Performed By: #### Maggie [id number], LAB17, [id number] ####Assistant Buyer: WESTON IBARRA ([phone])[facility] ([facility])[address] [place] [address] AST [Catalytic activity/Vol] 26 U/L Normal <34 [facility] Comment on above: Performed By: #### Maggie [id number], LAB17, [id number] ####Assistant Buyer: WESTON IBARRA ([phone])[facility] ([facility])[address] [place] [address] Bilirubin [Mass/Vol] 0.6 mg/dL Normal <1.2 [facility] Comment on above: Performed By: #### Maggie [id number], LAB17, [id number] ####Assistant Buyer: WESTON IBARRA ([phone])[facility] ([facility])[address] [place] [address] Calcium [Mass/Vol] 8.8 mg/dL Normal 8.8-10.0 [facility] Comment on above: Performed By: #### Maggie [id number], LAB17, [id number] ####Assistant Buyer: WESTON IBARRA ([phone])[facility] ([facility])[address] [place] [address] [place] Chloride [Moles/Vol] 101 mmol/L Normal 98-107 [facility] Comment on above: Performed By: #### Maggie [id number], LAB17, [id number] ####Assistant Buyer: WESTON IBARRA ([phone])[facility] ([facility])[address] [place] [address] [place] CO2 [Moles/Vol] 27 mmol/L Normal 23-31 [facility] Comment on above: Performed By: #### L [id number], LAB17, [id number] ####Assistant Buyer: WESTON IBARRA ([phone])[facility] [place] [address] Creatinine [Mass/Vol] 1.31 mg/dL High 0.72-1.25 [facility] Comment on above: Performed By: #### L [id number], LAB17, [id number] ####Assistant Buyer: WESTON IBARRA ([phone])[facility] ([facility])[address] [place] [address] [place] GLOMERULAR FILTRATION RATE ML/MIN/1.73 SQ M.PREDICTED 61.9 mL/min/1.73m*2 Normal >60.0 [facility] Comment on above: Result Comment: Calc ulation based on the Chronic Kidney Disease Epidemiology Collaboration (CKD-EPI) equation refit without adjustment for race Performed By: #### L [id number], LAB17, [id number] ####Assistant Buyer: WESTON IBARRA ([phone])[facility] ([facility])[address] [place] [address] [place] Glucose [Mass/Vol] 171 mg/dL High 82-115 [facility] Comment on above: Performed By: #### L [id number], LAB17, [id number] ####Assistant Buyer: WESTON IBARRA ([phone])[facility] ([facility])[address] [place] [address] [place] Potassium [Moles/Vol] 3.9 mmol/L Normal 3.5-5.1 [facility] Comment on above: Result Comment: [facility] potassium values may be up to 0.5 mmol/L lower than serum values. Performed By: #### L [id number], LAB17, [id number] ####Assistant Buyer: WESTON IBARRA ([phone])[facility] [place] [address] Protein [Mass/Vol] 6.5 g/dL Normal 6.4-8.3 [facility] Comment on above: Performed By: #### L [id number], LAB17, [id number] ####Assistant Buyer: WESTON IBARRA ([phone])[facility] ([facility])[address] [place] [address] Sodium [Moles/Vol] 137 mmol/L Normal 136-145 [facility] Comment on above: Performed By: #### L [id number], LAB17, [id number] ####Assistant Buyer: WESTON IBARRA ([phone])[facility] ([facility])[address] [place] [address] Urea nitrogen [Mass/Vol] 14 mg/dL Normal 9-23 [facility] Comment on above: Performed By: #### L [id number], LAB17, [id number] ####Assistant Buyer: WESTON IBARRA ([phone])[facility] ([facility])[address] [place] [address] COVID-19, Flu A/B, and RSV C omboon 01-13-2025 Interpretation and review of laboratory results Normal [facility] Methodology: real-time, RT-PCR [facility] Comprehensive metabolic 1998 panelon 01-13-2025 Albumin [Mass/Vol] 3.3 g/dL Low 3.4 - 4.8 g/dL [facility] ALP [Catalytic activity/Vol] 67 U/L 40 - 150 U/L [facility] ALT [Catalytic activity/Vol] 22 U/L NINF - 40 U/L [facility] Anion gap [Moles/Vol] 9 mmol/L 3 - 13 mmol/L [facility] AST [Catalytic activity/Vol] 26 U/L NINF - 34 U/L [facility] Bilirubin [Mass/Vol] 0.6 mg/dL NINF - 1.2 mg/dL [facility] Calcium [Mass/Vol] 8.8 mg/dL 8.8 - 10. 0 mg/dL [facility] Chloride [Moles/Vol] 101 mmol/L 98 - 10 7 mmol/L [facility] CO2 [Moles/Vol] 27 mmol/L 23 - 31 mmol/L [facility] Creatinine [Mass/Vol] 1.31 mg/dL High 0.72 - 1.25 mg/dL [facility] GFR/1.73 sq M.predicted (S/P/Bld) [Vol rate/Area] 61.9 mL/min - PINF [facility] Comment on above: Calculation based on the Chronic Kidney Disease Epidemiology Collaboration (CKD-EPI) equation refit without adjustment for race Glucose [Mass/Vol] 171 mg/dL High 82 - 115 mg/dL [facility] Interpretation and review of laboratory results Abnormal [facility] Potassium [Moles/Vol] 3.9 mmol/L 3.5 - 5.1 mmol/L [facility] Comment on above: Plasma potassium zaiar ues may be up to 0.5 mmol/L lower than serum values. Protein [Mass/Vol] 6.5 g/dL 6.4 - 8.3 g/dL [facility] Sodium [Moles/Vol] 137 mmol/L 136 - 145 mmol/L [facility] Urea nitrogen [Mass/Vol] 14 mg/dL 9 - 23 mg/dL [facility] ED Nursing Noteon 01-13-2025 ED Nursing Note Report to SU[facility]AN [facility] ED Provider Noteon ED Provider Note Emergency Department Encounter [facility] EMERGENCY DEPT Patient: Venkat Marsh : 1965 Date of Evaluation: 01/13/2025 ED Provider: Taqueria Taylor MD TRIAGE NOTE I independently examined and evaluated Venkat Marsh. I personally saw & evaluated the patient as the Clinician in Triage and performed a brief history and physical exam, established acuity, and ordered appropriate tests to develop basic plan of care. Patient will be seen by an TACO, resident and/or my physician partner who will independently evaluate the patient. Please see subsequent provider notes for further details and disposition Brief HPI: In brief, Venkat Marsh is a 59 y.o. male that presents for shortness of breath exertional dyspnea, patient states that he had bilateral leg edema and weight gain he was diagnosed with congestive heart failure but he has not been taking his diuretic. He also states that he was diagnosed with pneumonia couple weeks ago at [facility] and just finished a course of antibiotics. He says he has some tenderness along his abdominal wall where he gained a lot of weight but is read as well 2. No chest pain no fever no hemoptysis.. Focused Physical exam: Lungs: Crackles in both bases no wheeze retractions cyanosis HEART: Regular rate and rhythm no murmur or thrill or rub, strong heart tones Abdomen: There is some generalized erythema about his periumbilical region, is not warm there is no fluctuance or abscess he has no significant tenderness, he is 300 pounds. Extremities: 2+ bilateral pitting pretibial edema no calf pain Plan/MDM: Will get cardiac and CHF workup also get viral studies and chest x-ray. Please see subsequent provider note for further details and disposition Comment: Please note this report has been produced using speech recognition software and may contain errors related to that system including errors in grammar, punctuation, and spelling as well as words and phrases that may be inappropriate. If there are any questions or concerns please feel free to contact the dictating provider for clarification Taqueria Taylor MD Acute Care [facility] Taqueria Taylor MD 01/13/25 1851 Emergency Department Encounter [facility] EMERGENCY DEPT Patient: Venkat Marsh : 1965 Date of Evaluation: 01/13/2025 ED Provider: Taqueria Taylor MD TACO SUPERVISORY NOTE & SHARED ENCOUNTER ATTESTATION...ADD ON TO TRIAGE NOTE: I independently examined and evaluated Venkat Marsh. ECG interpreted by me sinus rhythm rate 88 with an IVCD Chest x-ray interpreted by me no acute chest disease His electrolytes are fine glucose is 171 creatinine is 131 GFR is 62 he has an elevated BNP of 2488 viral studies were negative his white blood cell count was normal at 8.7 with normal electrolytes, his 0-hour troponin was 24, his 2-hour troponin 22, 4-hour troponin 21. He does not have any pneumonia on his chest x-ray his white count is normal he is not febrile his viral studies were negative this does not seem to be infectious in etiology he is fluid overloaded was treated with Lasix 40 mg IV. The admitting service was consulted and they admitted I initially personally saw & evaluated the patient as the Clinician in Triage. Patient was also subsequently seen by the TACO. I assumed care as the supervising physician for a shared TACO encounter. I personally saw the patient and performed a substantive portion of the visit including all aspects of the Medical Decision Making. I managed the patient in a supervisory role and I personally saw the patient and made/approved the management plan and take responsibility for the patient management. See my Triage Note for initial assessment, brief history, physical exam, MDM/Course of action, and ordered tests to develop basic plan of care. All diagnostic, treatment, and disposition decisions were made by myself in conjunction with the TACO. For all further details of the patient's emergency department visit, please see the full medical record and documentation. Taqueria Taylor MD [employer] Taqueria Taylor MD 01/13/25 1901 Taqueria Taylor MD 01/14/25 0923 [facility] ED Provider Note Emergency Department Encounter [facility] EMERGENCY DEPT Patient: Venkat Marsh : 1965 Date of Evaluation: 01/13/2025 ED TACO Provider: Harry Carey PA-C EDcare was supervised by Dr. Taylor who independently examined and evaluated the patient. Please see their attestation note for further details. Chief Complaint Chief Complaint Patient presents with Shortness of Breath Pt states he had pneumonia recently and finished his antibiotics. Pt also reports BLE edema and is supposed to be on a water pill but has not been taking them. Pt also believes he has cellulitis VENETIE IRA Venkat Marsh is a 59 y.o. male who presents to the emergency department for shortness of breath and leg swelling. Patient has a history of CHF with an EF of 17%. Says he has been noncompliant with his diuretic. Shortness of breath is worse with exertion patient has been orthopneic. Endorses bilateral leg swelling and gaining weight. No chest pain. Limitations to history: None Outside historians: EMR Past Medical History: Diagnosis Date CAD (coronary artery disease) CHF (congestive heart failure) (HCC) Depression Hyperlipidemia Hypertension OK (mitral incompetence) Past Surgical History: Procedure Laterality Date CORONARY ANGIOPLASTY WITH STENT PLACEMENT Social History Socioeconomic History Marital status: Single Tobacco Use Smoking status: Every Day Current packs/day: 0.50 Types: Cigarettes Substance and Sexual Activity Alcohol use: No Drug use: No Social Drivers of Health Food Insecurity: No Food Insecurity (04/14/2024) Received from [facility] Vital Sign Worried About Running Out of Food in the Last Year: Never true Ran Out of Food in the Last Year: Never true Transportation Needs: No Transportation Needs (04/14/2024) Received from [facility] PRAPARE - Transportation Lack of Transportation (Medical): No Lack of Transportation (Non-Medical): No Housing Stability: Unknown (04/14/2024) Received from [facility] Housing Stability Vital Sign Unable to Pay for Housing in the Last Year: No Unstable Housing in the Last Year: No Medications/Allergies Previous Medications ALBUTEROL 108 (90 BASE) MCG/ACT INHALER Inhale 2 puffs every 4 hours as needed. AMLODIPINE (NORVASC) 2.5 MG TABLET Take 1 tablet by mouth daily. ASPIRIN 81 MG EC TABLET Take 1 tablet by mouth daily. DULAGLUTIDE (TRULICITY) 1.5 MG/0.5ML Inject 1.5 mg under the skin once a week. EMPAGLIFLOZIN (JARDIANCE) 10 MG Take 1 tablet by mouth daily (with breakfast). FUROSEMIDE (LASIX) 20 MG TABLET Take 20 mg by mouth daily. INSULIN GLARGINE (LANTUS) 100 UNIT/ML PEN Inject 20 Units under the skin Nightly. LEVOTHYROXINE (SYNTHROID, LEVOXYL) 125 MCG TABLET Take 1 tablet by mouth every morning (before breakfast). LORATADINE (CLARITIN) 10 MG TABLET Take 10 mg by mouth daily. METFORMIN (GLUCOPHAGE) 1000 MG TABLET Take 1,000 mg by mouth twice a day. METOPROLOL SUCCINATE XL (TOPROL-XL) 25 MG 24 HR TABLET Take 25 mg by mouth daily. MIRTAZAPINE (REMERON) 15 MG TABLET Take 1 tablet by mouth Nightly. No Known Allergies Physical Exam BP (!) 158/132 Pulse 101 Temp (!) 35.9 ?C (96.6 ?F) (Temporal) Resp 19 Ht 1.702 m (5' 7) Wt 136 kg (300 lb) SpO2 96% BMI 46.99 kg/m? Physical Exam GENERAL APPEARANCE: Awake and alert. Cooperative. HEENT: Normocephalic. Atraumatic. No trismus. NECK: Supple. Trachea midline. CARDIO: Tachycardic initially. Radial pulses symmetrical and palpable LUNGS: Respirations unlabored. CTAB. ABDOMEN: Soft. Non-distended. Non-tender throughout. MUSCULOSKELETAL: No acute deformities. SKIN: Warm and dry. NEUROLOGICAL: No gross facial drooping. No obvious neurologic deficits. Moves all 4 extremities spontaneously. SCREENINGS D Labs: Results for orders placed or performed during the hospital encounter of 01/13/25 ECG 12 lead Collection Time: 01/13/25 5:31 PM Result Value Ref Range Heart Rate 88 bpm QRSD Interval 147 ms QT Interval 414 ms QTC Interval 502 ms P Center Line 43 degrees QRS Center Line 136 degrees T Wave Center Line -50 degrees UT Interval 259 ms CBC auto differential Collection Time: 01/13/25 7:27 PM Result Value Ref Range Auto WBC 9.4 3.6 - 10.7 10*3/uL RBC 5.84 4.40 - 5.90 10*6/uL Hemoglobin 17.2 13.0 - 18.0 g/dL Hematocrit 52.2 (H) 40.0 - 52.0 % MCV 89.4 77.0 - 99.0 fL MCH 29.5 26.0 - 34.0 pg MCHC 33.0 30.5 - 36.0 % RDW 13.6 11.5 - 15.0 % Platelets 190 140 - 440 10*3/uL MPV 10.3 9.0 - 12.7 fL nRBC 0.0 0.0 - 2.0 /100 WBCs Neutrophils Relative 52.7 38.0 - 82.0 % Lymphocytes Relative 31.3 15.0 - 45.0 % Monocytes Relative 11.3 5.0 - 13.0 % Eosinophils Relative 4.1 0.0 - 6.0 % Basophils Relative 0.3 0.0 - 2.0 % Immature Grans % 0.3 0.0 - 2.0 % Neutrophils Absolute 5.0 1.8 - 7.5 10*3/uL Lymphocytes Absolute 2.9 1.0 - 4.3 10*3/uL Monocytes Absolute 1.1 (H) 0.0 - 0.9 10*3/uL Eos (more content not included)... Normal [facility] HEMOGLOBIN A1Con 01-13-2025 Glucose [Mass/Vol] 217 mg/dL Normal [facility] Comment on above: Result Comment: ELIO Vargas COMMENTS: If not done within the last 3 mos HbA1c values of 5.7-6.4 percent indicate an increased risk for developing diabetes mellitus. HbA1c values greater than or equal to 6.5 percent are diagnostic of diabetes mellitus. For diagnosis of diabetes in individuals without unequivocal hyperglycemia, results should be confirmed by repeat testing. Performed By: #### L [id number] #### Assistant Buyer: WESTON IBARRA ([phone]) [facility]) [address] [place] [address] HEMOGLOBIN A1C 9.2 %HbA1C High <5.7 [facility] Comment on above: Result Comment: Norm al less than 5.7% Prediabetes 5.7% to 6.4% Diabetes 6.5% or higher --HgbA1C levels may not be accurate in patients who have renal disease, received recent blood transfusions, are anemic, or who have dyshemoglobinemia. Performed By: #### L [id number] #### Assistant Buyer: WESTON IBARRA ([phone]) [facility]) [address] [place] [address] HIGH SENSITIVITY TROPONIN, S ERIAL BASELINEon 01-13-2025 TROPONIN HS SERIAL BASELINE 24 ng/L Normal <=35 [facility] Comment on above: Result Comment: In i ndividuals presenting with symptoms > 2h, a baseline troponin <= 5 ng/L suggests acute cardiac injury is unlikely and further serial testing is generally not indicated. Performed By: #### L [id number], [id number], [id number] ####Assistant Buyer: WESTON IBARRA ([phone])[address] HIGH SENSITIVITY TROPONIN, S ERIAL, SECOND TESTon 01-13-2025 2H TROPONIN HS (SERIAL 2ND TROPONIN) 22 ng/L Normal <=35 [facility] Comment on above: Result Comment: 2h t roponin (2nd troponin) samples collected between 1h 40 min and 2h and 20 min of the baseline collection time can be utilized to interpret delta troponins as per [employer] algorithms. Samples collected outside this timeframe need to be interpreted clinically. Rising or falling troponin delta below 2 ng/L as compared to baseline value suggests that acute cardiac injury is unlikely. Performed By: #### L [id number] ####Assistant Buyer: WESTON IBARRA ([id number])[facility] ([facility])[address] [place] [address] Laboratory - Microbiology an d Antimicrobial susceptibilityon 01-13-2025 FLUAV RNA SUSANNAH+probe Ql (Resp) Not detected Not Detected [facility] FLUBV RNA SUSANNAH+probe Ql (Resp) Not detected Not Detected [facility] RSV RNA SUSANNAH+probe Ql (Resp) Not detected Not Detected [facility] SARS-CoV-2 (COVID-19) RNA SUSANNAH+probe Ql (Resp) Not detected Not Detected [facility] alth NT PRO BNPon 01-13-2025 Natriuretic peptide B (Bld) [Mass/Vol] 2488 pg/mL High <125 [facility] Comment on above: Performed By: #### L [id number], [id number], [id number] ####Assistant Buyer: WESTON IBARRA ([phone])[facility] ([facility] Natriuretic peptide B [Mass/ Vol]on 01-13-2025 Interpretation and review of laboratory results Abnormal [facility] Natriuretic peptide B (Bld) [Mass/Vol] 2488 pg/mL High NINF - 125 pg/mL [facility] No Panel Informationon 01-13 2h Troponin HS (Serial 2nd Troponin) 22 ng/L NINF - 35 ng/L [facility] Comment on above: 2h troponin (2nd tro ponin) samples collected between 1h 40 min and 2h and 20 min of the baseline collection time can be utilized to interpret delta troponins as per [facility] algorithms. Samples collected outside this timeframe need to be interpreted clinically. Rising or falling troponin delta below 2 ng/L as compared to baseline value suggests that acute cardiac injury is unlikely. Interpretation and review of laboratory results Normal [facility] Interpretation and review of laboratory results Normal [facility] Troponin HS Serial Baseline 24 ng/L NINF - 35 ng/L [facility] Comment on above: In individuals prese nting with symptoms > 2h, a baseline troponin <= 5 ng/L suggests acute cardiac injury is unlikely and further serial testing is generally not indicated. [facility] SARS-COV-2, FLU A/B, AND RSV COMBOon 01-13-2025 SARS-CoV-2 (COVID-19) RNA SUSANNAH+probe Ql (Unsp spec) SARS-COV-2 Reference Not Detected Not Detected RESPIRATORY SYNCYTIAL VIRUS Reference Not Detected Not Detected INFLUENZA A (CEPHEID) Reference Not Detected Not Detected INFLUENZA B (CEPHEID) Reference Not Detected Not Detected ORDER COMMENTS: Methodology: real-time, RT-PCR Normal [facility] Comment on above: Performed By: #### L [id number] #### Assistant Buyer: WESTON IBARRA ([phone]) [facility] ([facility]) [address] [place] [address] XR Chest Single viewon 01-13 1. No acute finding. Report Dictated on Electronically Signed By: Jorge Kelly MD Electronically Signed Date/Time: 01/13/2025 8:04 PM EDT [facility] Patient Name: VENKAT MARSH : 1965 Exam Date/Time: 01/13/2025 19:53 Procedure: XR CHEST 1 VIEW Ordering Provider: TAYLOR JESSE Reason For Exam: DYSPNEA SINGLE FRONTAL VIEW OF THE CHEST CLINICAL INDICATION: DYSPNEA TECHNIQUE: Single frontal view of the chest COMPARISON: 11/12/2016 FINDINGS: Lungs are clear. No pleural effusion or pneumothorax. No vascular congestion. Heart size moderately enlarged. [facility] Jorge Kelly MD - 01/13/2025 Patient Name: VENKAT MARSH : 1965 Exam Date/Time: 01/13/2025 19:53 Procedure: XR CHEST 1 VIEW Ordering Provider: TAYLOR JESSE Reason For Exam: DYSPNEA SINGLE FRONTAL VIEW OF THE CHEST CLINICAL INDICATION: DYSPNEA TECHNIQUE: Single frontal view of the chest COMPARISON: 11/12/2016 FINDINGS: Lungs are clear. No pleural effusion or pneumothorax. No vascular congestion. Heart size moderately enlarged. IMPRESSION: 1. No acute finding. Report Dictated on Electronically Signed By: Jorge Kelly MD Electronically Signed Date/Time: 01/13/2025 8:04 PM EDT [facility] Radiology Study observation (narrative) [facility] XR Chest Single viewOrdered By: Jorge Kelly on 01-13-2025 [facility] Work Phone: Absolute neutrophil countOrd ered By: Prieto Bey on 01-05-2025 Neutrophils (Bld) [#/Vol] 5.4 10*3/uL 2.0-7.7 [facility] Anion gap in Serum or Plasma Ordered By: Prieto Bey on 01-05-2025 Anion gap [Moles/Vol] 15 mmol/L - [facility] BUN/creatinine ratioOrdered By: Prieto Bey on 01-05-2025 Urea nitrogen/Creatinine [Mass ratio] 10.5 mg/mg - [facility] Basic Metabolic Profile (BMP )on 01-05-2025 BUN/CRE 10.5 RATIO Normal - [facility] Comment on above: Performed By: #### L 100.0100, L500.2500 ####[facility] [address] [place], [address] Calcium [Mass/Vol] 9.0 mg/dL Normal 7.6-11.0 [facility] Comment on above: Performed By: #### L 100.0100, L500.2500 ####[facility] [address] [place], [address] Chloride [Moles/Vol] 100 mmol/L Normal 98-108 [facility] Comment on above: Performed By: #### L 100.0100, L500.2500 ####[facility] [address] [place], [address] CO2 [Moles/Vol] 18.5 mmol/L Low 21.0-32.0 [facility] Comment on above: Performed By: #### L 100.0100, L500.2500 ####[facility] [address] [place], [address] Creatinine [Mass/Vol] 1.17 mg/dL Normal 0.70-1.20 [facility] Comment on above: Performed By: #### L 100.0100, L500.2500 ####[facility] [address] [place], [address] ECRCL 90.22 ml/min Normal 50-250 [facility] Comment on above: Performed By: #### L 100.0100, L500.2500 ####[facility] [address] [place], [address] GAP 15 Normal 5-15 [facility] Comment on above: Performed By: #### L 100.0100, L500.2500 ####[facility] [address] [place], [address] GFR/1.73 sq M.predicted among non-blacks MDRD (S/P/Bld) [Vol rate/Area] 71 mL/min/{1.73_m2} Normal >60 [facility] Comment on above: Result Comment: mL/m in/1.73m2 CKD-EPI Creatinine Equation (2020) Performed By: #### L 100.0100, L500.2500 ####[facility] [address] [place], [address] Glucose [Mass/Vol] 210 mg/dL High 70-99 [facility] Comment on above: Performed By: #### L 100.0100, L500.2500 ####[facility] [address] [place], [address] Potassium [Moles/Vol] 5.3 mmol/L High 3.3-5.1 [facility] Comment on above: Result Comment: Hemo lysis present, Results??could be affected. Spoke to Ruth, who spoke to the DR, about the hemolysis affecting the results, still wanted the results anyway ?? Performed By: #### L 100.0100, L500.2500 ####[facility] [address] [place], [address] Sodium [Moles/Vol] 134 mmol/L Normal 133-145 [facility] Comment on above: Performed By: #### L 100.0100, L500.2500 ####[facility] [address] [place], [address] Urea nitrogen [Mass/Vol] 12 mg/dL Normal 4-19 [facility] Comment on above: Performed By: #### L 100.0100, L500.2500 ####[facility] [address] [place], [address] Basophil percentageOrdered B y: Prieto Bey on 01-05-2025 Basophils/100 WBC (Bld) 0.4 % 0-1 [facility] Bedside Glucoseon 01-05-2025 FINGERSTICK GLU 220 mg/dL High 74-106 [facility] Comment on above: Result Comment: ANGEL BASSETT OF PATIENT CARE PER NURSING PROTOCOL Performed By: #### L 501.080 #### [facility] [address] [place], [address] CBC W/Diff, Automatedon 12-20 Absolute Lymph 2.96 X10 3/uL Normal 0.83-4.51 [facility] Comment on above: Performed By: #### L 100.0100, L500.2500 #### [facility] [address] [place], [address] Absolute Neut 5.4 X10 3/uL Normal 2.0-7.7 [facility] Comment on above: Performed By: #### L 100.0100, L500.2500 #### [facility] [address] [place], [address] Basophils/100 WBC (Bld) 0.4 % Normal 0-1 [facility] Comment on above: Performed By: #### L 100.0100, L500.2500 #### [facility] [address] [place], [address] Eosinophils/100 WBC (Bld) 6.5 % High 0-5 [facility] Comment on above: Performed By: #### L 100.0100, L500.2500 #### [facility] [address] [place], [address] Erythrocyte distribution width (RBC) [Ratio] 13.3 % Normal 11.6-14.6 [facility] Comment on above: Performed By: #### L 100.0100, L500.2500 #### [facility] [address] [place], [address] Hematocrit (Bld) [Volume fraction] 49.2 % Normal 40-54 [facility] Comment on above: Performed By: #### L 100.0100, L500.2500 #### [facility] [address] [place], [address] Hemoglobin (Bld) [Mass/Vol] 16.9 g/dL High 13.0-16.5 [facility] Comment on above: Performed By: #### L 100.0100, L500.2500 #### [facility] [address] [place], [address] IG% 0.500 Normal 0.0-0.9 [facility] Comment on above: Result Comment: IG% - Immature Granulocytes (promyelocytes, myelocytes and metamyelocytes) > 1% indicates that a LEFT SHIFT is Present. Performed By: #### L 100.0100, L500.2500 #### [facility] [address] [place], [address] Lymphocytes/100 WBC (Bld) 29.7 % Normal 19-41 [facility] Comment on above: Performed By: #### L 100.0100, L500.2500 #### [facility] [address] [place], [address] MCH (RBC) [Entitic mass] 30.2 pg Normal 27.0-32.0 [facility] Comment on above: Performed By: #### L 100.0100, L500.2500 #### [facility] [address] [place], [address] MCHC (RBC) [Mass/Vol] 34.3 g/dL Normal 32-36 [facility] Comment on above: Performed By: #### L 100.0100, L500.2500 #### [facility] [address] [place], [address] MCV (RBC) [Entitic vol] 87.9 fL Normal 80-94 [facility] Comment on above: Performed By: #### L 100.0100, L500.2500 #### [facility] [address] [place], [address] Monocytes/100 WBC (Bld) 8.4 % Normal 0-10 [facility] Comment on above: Performed By: #### L 100.0100, L500.2500 #### [facility] [address] [place], [address] Neutrophils/100 WBC (Bld) 54.5 % Normal 47-70 [facility] Comment on above: Performed By: #### L 100.0100, L500.2500 #### [facility] [address] [place], [address] Nucleated RBC (Bld) [#/Vol] 0 10*3/uL Normal 0-5 [facility] Comment on above: Performed By: #### L 100.0100, L500.2500 #### [facility] [address] [place], [address] Platelet mean volume (Bld) [Entitic vol] 11.0 fL Normal 6.2-12.0 [facility] Comment on above: Performed By: #### L 100.0100, L500.2500 #### [facility] [address] [place], [address] Platelets (Bld) [#/Vol] 231 10*3/uL Normal 150-450 [facility] Comment on above: Performed By: #### L 100.0100, L500.2500 #### [facility] [address] [place], [address] RBC (Bld) [#/Vol] 5.60 10*6/uL Normal 4.6-6.2 [facility] Comment on above: Performed By: #### L 100.0100, L500.2500 #### [facility] [address] [place], [address] RDW SD 42.8 fl Normal 35.1-43.9 [facility] Comment on above: Performed By: #### L 100.0100, L500.2500 #### [facility] [address] [place], [address] WBC (Bld) [#/Vol] 10.0 10*3/uL Normal 4.4-11.0 [facility] Comment on above: Performed By: #### L 100.0100, L500.2500 #### [facility] [address] [place], [address] Carbon dioxide, total [Moles /volume] in Central venous bloodOrdered By: Prieto Bey on 01-05-2025 CO2 [Moles/Vol] 18.5 mmol/L Low 21.0-32.0 [facility] Chloride assayOrdered By: Andrea Bey on 01-05-2025 Chloride [Moles/Vol] 100 mmol/L 98-108 [facility] Emergency Department Summary on 01-05-2025 Emergency Department Summary [facility] Medical Records Department [address] [place] [address] Emergency Department Summary 01/05/25 MR#: [id number] Acct: [id number] Name: VENKAT MARSH Rep #: [id number] : 1965 59 From: Prieto Lees PCP: Care Physician,No Primary Status:REG ER Location: ED HPI History of Present Illness Chief Complaint: General Illness Narrative Narrative: With history of continuous abdominal wall redness and itching. No fevers. No changes in soaps or detergents. Reports was here 2 weeks ago multiple issues including head injury. Prescribed antibiotic. No improvement. Started before medications. Diabetic on insulin. Sleep apnea. Does feel short of breath report history of asthma. Noted allergy prednisonecaused leg swelling. Prior similar symptoms: Yes [facility] Medical History Congestive heart failure (CHF) BMI greater than 40 Obstructive sleep apnea Hypertension Type 2 diabetes mellitus with insulin therapy Home Medications ???Medication ???Instructions ???Recorded ???Last Taken ???Type aspirin 325 mg tablet 325 mg PO DAILY@0800 10/15/14 Unkn own History levothyroxine 125 mcg tablet 125 mcg PO DAILY 10/15/14 Unknown History metoprolol tartrate 50 mg tablet 50 mg PO DAILY 10/15/14 Unknown Hi story doxycycline hyclate 100 mg capsule 100 mg PO BID ##28 01/12/17 Unkn own Rx albuterol sulfate 90 mcg/actuation 2 puff inhalation Q4H PRN PRN Unknown Rx aerosol inhaler (Ventolin HFA) Wheezing ##1 prednisone 20 mg tablet 60 mg (3 x 20 mg) PO DAILY #15 08/14 Unknown Rx TABLETS clindamycin HCl 300 mg capsule 300 mg PO 4X/DAY 10 days #40 12/23 Unknown Rx (Cleocin HCl) CAPSULES furosemide 20 mg tablet (Lasix) 20 mg PO DAILY 30 days #30 tabs Unknown Rx nystatin 100,000 unit/mL oral 5 ml PO 4X/DAY 14 days #280 mL 01/13 Unknown Rx suspension diphenhydramine HCl 25 mg tablet 25 mg PO TID PRN itching #30 tabs 01/06/25 Unknown Rx (Benadryl Allergy) loratadine 10 mg tablet 10 mg PO DAILY #30 tabs 01/06/25 U nknown Rx prednisone 20 mg tablet 40 mg (2 x 20 mg) PO DAILY #12 tab s 01/06/25 Unknown Rx Allergy/AdvReac Type Severity Reaction Status Date / Time Sulfa (Sulfonamide Allergy Swelling Verified 01/05/25 21:04 Antibiotics) sulfamethoxazole (From Allergy Swelling Verified 01/05/25 21:04 Bactrim) trimethoprim (From Bactrim) Allergy Swelling Verified 01/05/25 21:04 Social History household members: none Smoking Status: Current every day smoker tobacco type: cigarettes ROS ROS ED Constitutional Constitutional ED: Denies chills, fever(s) or sweats ENT ENT ED: Denies sore throat Cardiovascular Cardiovascular: Denies chest pain, leg edema, palpitations or racing heartbeat Respiratory/Chest Respiratory/Chest: Reports dyspnea; Denies cough or dyspnea on exertion Gastrointestinal Gastrointestinal: Denies abdominal pain, diarrhea, nausea or vomiting Genitourinary Genitourinary ED: Denies dysuria, hematuria or urinary frequency Musculoskeletal Musculoskeletal: Denies back pain, extremity pain or neck pain Integumentary Reports rash; Denies wounds Neurologic Neurologic: Denies headache(s), paresthesias or weakness EXAM Physical Exam Const Vital Signs: 01/05/25 21:04 01/05/25 21:24 01/05/25 22:18 Temperature 97.2 F L Temperature Source Temporal Pulse Rate 96 96 Respiratory Rate 26 H 20 H Respiratory Effort Normal Non-Labored Respiratory Pattern Normal Normal Blood Pressure 157/105 H Blood Pressure Mean 122 Pulse Ox 100 Oxygen Delivery Method Room Air 01/05/25 23:03 01/06/25 00:29 Temperature 98.0 F Temperature Source Pulse Rate 85 78 Respiratory Rate 20 H 22 H Respiratory Effort Respiratory Pattern Blood Pressure 171/123 H 190/100 H Blood Pressure Mean 139 130 Pulse Ox 97 95 Oxygen Delivery Method Room Air Positive well nourished and well developed General Appearance ED: well developed and NAD HEENT Reports moist mucous membranes HEENT Narrative: No lip or tongue swelling normocephalic and atraumatic Eyes General Eye ED: Yes normal appearance of both eyes Neck full ROM Chest Wall Chest: Negative for tenderness Resp normal respiratory effort Resp Narrative: Faint wheeze on exam. Effort and Inspection: symmetric chest movement; Negative for respiratory distress Cardio regular rate, regular rhythm and no murmurs Peripheral Pulses: pulses 2+ throughout GI normal to inspection, nondistended, normoactive bowel sounds and non-tender GI Narrative: Redness and edema to the abdominal wall all blanching. Nontender. Palpation: Negative fo (more content not included)... Normal [facility] Eosinophil percentageOrdered By: Prieto Bey on 01-05-2025 Eosinophils/100 WBC (Bld) 6.5 % High 0-5 [facility] Erythrocyte distribution wid th (RBC) [Ratio]Ordered By: Prieto Bey on 01-05-2025 Erythrocyte distribution width (RBC) [Entitic vol] 42.8 fL 35.1-43.9 [facility] Erythrocyte distribution wid th ratioOrdered By: Prieto Bey on 01-05-2025 Erythrocyte distribution width (RBC) [Ratio] 13.3 % 11.6-14.6 [facility] Estimation of creatinine ailin aranceOrdered By: Prieto Bey on 01-05-2025 Estimated Creatinine Clearance Calc 90.22 ml/min 50-250 [facility] GFR/1.73 sq M.predicted alonso g non-blacks MDRD (S/P/Bld) [Vol rate/Area]Ordered By: Prieto Bey on 01-05-2025 Estimated GFR (MDRD) Non-Af Amer 71 >60 [facility] Comment on above: mL/min/1.73m2 CKD-EP I Creatinine Equation (2020) Glucose measurement at bedsi deOrdered By: Prieto Bey on 01-05-2025 Bedside Glucose (Misc Panel) 220 mg/dL High 74-106 [facility] Comment on above: MANAGEMENT OF PATIEN T CARE PER NURSING PROTOCOL Hematocrit Auto (Bld) [Volum e fraction]Ordered By: Prieto Bey on 01-05-2025 Hematocrit (Bld) [Volume fraction] 49.2 % 40-54 [facility] Hemoglobin measurementOrdere d By: Prieto Bey on 01-05-2025 Hemoglobin (Bld) [Mass/Vol] 16.9 g/dL High 13.0-16.5 [facility] Immature granulocytes/100 WB C Auto (Bld)Ordered By: Prieto Bey on 01-05-2025 Immature granulocytes/100 WBC (Bld) 0.500 % 0.0-0.9 [facility] Comment on above: IG% - Immature Granu locytes (promyelocytes, myelocytes and metamyelocytes) > 1% indicates that a LEFT SHIFT is Present. Lymphocytes Auto (Unsp spec) [#/Vol]Ordered By: Prieto Bey on 01-05-2025 Lymphocytes (Bld) [#/Vol] 2.96 10*3/uL 0.83-4.51 [facility] Lymphocytes/100 WBC Auto (Un sp spec)Ordered By: Prieto Bey on 01-05-2025 Lymphocytes/100 WBC (Bld) 29.7 % 19-41 [facility] MCV (mean corpuscular volume ) determinationOrdered By: Prieto Bey on 01-05-2025 MCV (RBC) [Entitic vol] 87.9 fL 80-94 [facility] Mean corpuscular hemoglobin (MCH) determinationOrdered By: Prieto Bey on 01-05-2025 MCH (RBC) [Entitic mass] 30.2 pg 27.0-32.0 [facility] Mean corpuscular hemoglobin concentration (MCHC) determinationOrdered By: Prieto Bey on 01-05-2025 MCHC (RBC) [Mass/Vol] 34.3 g/dL 32-36 [facility] Mean platelet volume determi nationOrdered By: Prieto Bey on 01-05-2025 Platelet mean volume (Bld) [Entitic vol] 11.0 fL 6.2-12.0 [facility] Monocyte percentageOrdered B y: Prieto Bey on 01-05-2025 Monocytes/100 WBC (Bld) 8.4 % 0-10 [facility] Neutrophil percentageOrdered By: Prieto Bey on 01-05-2025 Neutrophils/100 WBC (Bld) 54.5 % 47-70 [facility] Nucleated red blood cell per centageOrdered By: Prieto Bey on 01-05-2025 Nucleated RBC/100 WBC (Bld) [Ratio] 0 % 0-5 [facility] Platelet countOrdered By: Andrea Bey on 01-05-2025 Platelets (Bld) [#/Vol] 231 10*3/uL 150-450 [facility] Potassium (Unsp spec) [Mass/ Vol]Ordered By: Prieto Bey on 01-05-2025 Potassium [Moles/Vol] 5.3 mmol/L High 3.3-5.1 [facility] Comment on above: Hemolysis present, R esults could be affected. Spoke to Ruth, who spoke to the DR, about the hemolysis affecting the results, still wanted the results anyway RBC Auto (Bld) [#/Vol]Ordere d By: Prieto Bey on 01-05-2025 RBC (Bld) [#/Vol] 5.60 10*6/uL 4.6-6.2 [facility] Serum creatinine measurement (mass/volume)Ordered By: Prieto Bey on 01-05-2025 Creatinine [Mass/Vol] 1.17 mg/dL 0.70-1.20 [facility] Serum glucose measurement (m ass/volume)Ordered By: Prieto Bey on 01-05-2025 Glucose [Mass/Vol] 210 mg/dL High 70-99 [facility] Serum or plasma calcium greer urement (mass/volume)Ordered By: Prieto Bey on 01-05-2025 Calcium [Mass/Vol] 9.0 mg/dL 7.6-11.0 [facility] Serum or plasma urea nitroge n measurement (mass/volume)Ordered By: Prieto Bey on 01-05-2025 Urea nitrogen [Mass/Vol] 12 mg/dL 4-19 [facility] Sodium levelOrdered By: Prieto Bey on 01-05-2025 Sodium [Moles/Vol] 134 mmol/L 133-145 [facility] White blood cell (WBC) count Ordered By: Prieto Bey on 01-05-2025 WBC (Bld) [#/Vol] 10.0 10*3/uL 4.4-11.0 [facility] Absolute neutrophil countOrd ered By: Salty Werner on 12-23-2024 Neutrophils (Bld) [#/Vol] 4.6 10*3/uL 2.0-7.7 [facility] Anion gap in Serum or Plasma Ordered By: Salty Werner on 12-23-2024 Anion gap [Moles/Vol] 12 mmol/L 5- [facility] BUN/creatinine ratioOrdered By: Salty Werner on 12-23-2024 Urea nitrogen/Creatinine [Mass ratio] 16.3 mg/mg - [facility] Basic Metabolic Profile (BMP )on 12-23-2024 BUN/CRE 16.3 RATIO Normal - [facility] Comment on above: Performed By: #### L 500.2500, L503.7505, L100.0100 #### [facility] [address] [place], [address] Calcium [Mass/Vol] 9.1 mg/dL Normal 7.6-11.0 [facility] Comment on above: Performed By: #### L 500.2500, L503.7505, L100.0100 #### [facility] [address] [place], [address] Chloride [Moles/Vol] 100 mmol/L Normal 98-108 [facility] Comment on above: Performed By: #### L 500.2500, L503.7505, L100.0100 #### [facility] [address] [place], [address] CO2 [Moles/Vol] 26.6 mmol/L Normal 21.0-32.0 [facility] Comment on above: Performed By: #### L 500.2500, L503.7505, L100.0100 #### [facility] [address] [place], [address] Creatinine [Mass/Vol] 1.32 mg/dL High 0.70-1.20 [facility] Comment on above: Performed By: #### L 500.2500, L503.7505, L100.0100 #### [facility] [address] [place], [address] ECRCL 81.66 ml/min Normal 50-250 [facility] Comment on above: Performed By: #### L 500.2500, L503.7505, L100.0100 #### [facility] [address] [place], [address] GAP 12 Normal 5-15 [facility] Comment on above: Performed By: #### L 500.2500, L503.7505, L100.0100 #### [facility] [address] [place], [address] GFR/1.73 sq M.predicted among non-blacks MDRD (S/P/Bld) [Vol rate/Area] 61 mL/min/{1.73_m2} Normal >60 [facility] Comment on above: Result Comment: mL/m in/1.73m2 CKD-EPI Creatinine Equation (2020) Performed By: #### L 500.2500, L503.7505, L100.0100 #### [facility] [address] [place], [address] Glucose [Mass/Vol] 218 mg/dL High 70-99 [facility] Comment on above: Performed By: #### L 500.2500, L503.7505, L100.0100 #### [facility] [address] [place], [address] Potassium [Moles/Vol] 3.9 mmol/L Normal 3.3-5.1 [facility] Comment on above: Performed By: #### L 500.2500, L503.7505, L100.0100 #### [facility] [address] [place], [address] Sodium [Moles/Vol] 138 mmol/L Normal 133-145 [facility] Comment on above: Performed By: #### L 500.2500, L503.7505, L100.0100 #### [facility] [address] [place], [address] Urea nitrogen [Mass/Vol] 22 mg/dL High 4-19 [facility] Comment on above: Performed By: #### L 500.2500, L503.7505, L100.0100 #### [facility] [address] [place], [address] Basophil percentageOrdered B y: Salty Werner on 12-23-2024 Basophils/100 WBC (Bld) 0.4 % 0-1 [facility] Brain/Head without Contrasto n 12-23-2024 Brain/Head without Contrast [facility] Imaging Services [address] [place] [address] Brain/Head without Contrast MR#: [id number] Acct: [id number] Name: VENKAT MARSH Rep #: [id number] : 1965 M 59 From: Jaun Hidalgo MD PCP: Care Physician,No Primary Status: REG ER Study: Brain/Head without Contrast Date of Exam: 01/13 Exam# [id number] Ordering Dr: Salty Werner DO PROCEDURE: BRAIN/HEAD WITHOUT CONTRAST 12/23/2024 REASON FOR EXAM: HEAD INJURY TECHNIQUE: Head CT without intravenous contrast. Coronal and Sagittal reconstruction series were provided. One or more dose reduction techniques were used (e.g., Automated exposure control, adjustment of the mA and/or kV according to patient size, use of iterative reconstruction technique. RADIATION DOSE SUMMARY: CTDlvol: 44.99 mGy DLP: 796.11 mGycm COMPARISON: None available FINDINGS: No intracranial hemorrhage, mass effect or calvarial fracture. Left frontal forehead scalp soft tissue swelling. The ventricles are within limits and midline. Likely partially imaged mucous retention cyst inferior left maxillary sinus. Frontal, ethmoid and sphenoid mild sinus mucoperiosteal thickening, sinus disease. Likely old nasal bone fracture deformity without overlying soft tissue swelling, clinically correlate. Rightward bowing of the nasal septum. Mastoids and orbits appear within limits. Bilateral mandibular condyles appear anteriorly subluxed in relation to the joint for example sagittal 20 and 61 may represent mouth positioning at the time of the scan, clinically correlate. CT/Brain/Head without Contrast IMPRESSION: No intracranial hemorrhage, mass effect or calvarial fracture. Left frontal forehead scalp soft tissue swelling. Bilateral mandibular condyles appear anteriorly subluxed in relation to the joint for example sagittal 20 and 61 may represent mouth positioning at the time of the scan, clinically correlate. Likely old nasal bone fracture deformity without overlying soft tissue swelling, clinically correlate. Rightward bowing of the nasal septum. Mild paranasal sinus disease as above. Reading Location: [id number] CC: Salty Werner DO; No Primary Care Physician Tearoom Host/Hostess: Signed Normal [facility] CBC W/Diff, Automatedon 2024 Absolute Lymph 3.67 X10 3/uL Normal 0.83-4.51 [facility] Comment on above: Performed By: #### L 500.2500, L503.7505, L100.0100 #### [facility] [address] [place], [address] Absolute Neut 4.6 X10 3/uL Normal 2.0-7.7 [facility] Comment on above: Performed By: #### L 500.2500, L503.7505, L100.0100 #### [facility] [address] [place], [address] Basophils/100 WBC (Bld) 0.4 % Normal 0-1 [facility] Comment on above: Performed By: #### L 500.2500, L503.7505, L100.0100 #### [facility] [address] [place], [address] Eosinophils/100 WBC (Bld) 5.9 % High 0-5 [facility] Comment on above: Performed By: #### L 500.2500, L503.7505, L100.0100 #### [facility] [address] [place], [address] Erythrocyte distribution width (RBC) [Ratio] 13.3 % Normal 11.6-14.6 [facility] Comment on above: Performed By: #### L 500.2500, L503.7505, L100.0100 #### [facility] [address] [place], [address] Hematocrit (Bld) [Volume fraction] 53.1 % Normal 40-54 [facility] Comment on above: Performed By: #### L 500.2500, L503.7505, L100.0100 #### [facility] [address] [place], [address] Hemoglobin (Bld) [Mass/Vol] 17.3 g/dL High 13.0-16.5 [facility] Comment on above: Performed By: #### L 500.2500, L503.7505, L100.0100 #### [facility] [address] [place], [address] IG% 0.400 Normal 0.0-0.9 [facility] Comment on above: Result Comment: IG% - Immature Granulocytes (promyelocytes, myelocytes and metamyelocytes) > 1% indicates that a LEFT SHIFT is Present. Performed By: #### L 500.2500, L503.7505, L100.0100 #### [facility] [address] [place], [address] Lymphocytes/100 WBC (Bld) 36.5 % Normal 19-41 [facility] Comment on above: Performed By: #### L 500.2500, L503.7505, L100.0100 #### [facility] [address] [place], [address] MCH (RBC) [Entitic mass] 30.0 pg Normal 27.0-32.0 [facility] Comment on above: Performed By: #### L 500.2500, L503.7505, L100.0100 #### [facility] [address] [place], [address] MCHC (RBC) [Mass/Vol] 32.6 g/dL Normal 32-36 [facility] Comment on above: Performed By: #### L 500.2500, L503.7505, L100.0100 #### [facility] [address] [place], [address] MCV (RBC) [Entitic vol] 92.2 fL Normal 80-94 [facility] Comment on above: Performed By: #### L 500.2500, L503.7505, L100.0100 #### [facility] [address] [place], [address] Monocytes/100 WBC (Bld) 10.7 % High 0-10 [facility] Comment on above: Performed By: #### L 500.2500, L503.7505, L100.0100 #### [facility] [address] [place], [address] Neutrophils/100 WBC (Bld) 46.1 % Low 47-70 [facility] Comment on above: Performed By: #### L 500.2500, L503.7505, L100.0100 #### [facility] [address] [place], [address] Nucleated RBC (Bld) [#/Vol] 0 10*3/uL Normal 0-5 [facility] Comment on above: Performed By: #### L 500.2500, L503.7505, L100.0100 #### [facility] [address] [place], [address] Platelet mean volume (Bld) [Entitic vol] 10.6 fL Normal 6.2-12.0 [facility] Comment on above: Performed By: #### L 500.2500, L503.7505, L100.0100 #### [facility] [address] [place], [address] Platelets (Bld) [#/Vol] 223 10*3/uL Normal 150-450 [facility] Comment on above: Performed By: #### L 500.2500, L503.7505, L100.0100 #### [facility] [address] [place], [address] RBC (Bld) [#/Vol] 5.76 10*6/uL Normal 4.6-6.2 [facility] Comment on above: Performed By: #### L 500.2500, L503.7505, L100.0100 #### [facility] [address] [place], [address] RDW SD 44.8 fl High 35.1-43.9 [facility] Comment on above: Performed By: #### L 500.2500, L503.7505, L100.0100 #### [facility] [address] [place], [address] WBC (Bld) [#/Vol] 10.1 10*3/uL Normal 4.4-11.0 [facility] Comment on above: Performed By: #### L 500.2500, L503.7505, L100.0100 #### [facility] [address] [facility] [place], [address] Carbon dioxide, total [Moles /volume] in Central venous bloodOrdered By: Salty Werner on 12-23-2024 CO2 [Moles/Vol] 26.6 mmol/L 21.0-32.0 [facility] Chloride assayOrdered By: Merari Werner on 12-23-2024 Chloride [Moles/Vol] 100 mmol/L 98-108 [facility] Emergency Department Summary on 12-23-2024 Emergency Department Summary [facility] Medical Records Department [address] [place] [address] Emergency Department Summary 12/23/24 MR#: [id number] Acct: [id number] Name: VENKAT MARSH Rep #: [id number] : 1965 59 From: Salty Werner DO PCP: Care Physician,No Primary Status:DEP ER Location: ED HPI History of Present Illness Chief Complaint: Fall Informant: patient Narrative Narrative: Patient is a 59-year-old male with past medical history of insulin-dependent type 2 diabetes hypertension ELBERT and CHF. He reports that he moves around when he sleeps. He states that he did this the other night and fell out of bed striking his head. He states that he went about his day and did his job not thinking much of this but noted he had a headache. He states he drove here to be evaluated after finishing his job but felt fatigued and therefore fell asleep in his car and slept until approximately midnight. He states that on top of the head trauma and fatigue he has noticed redness across to his abdomen and he notes white spots within his mouth. He also feels like his legs are more swollen than normal and with these multiple complaints presents for evaluation [facility] Medical History (Updated 12/23/24 @ 07:[address] Salty Werner DO) Congestive heart failure (CHF) BMI greater than 40 Obstructive sleep apnea Hypertension Type 2 diabetes mellitus with insulin therapy Home Medications ???Medication ???Instructions ???Recorded ???Last Taken ???Type aspirin 325 mg tablet 325 mg PO DAILY@0800 10/15/14 Unkn own History levothyroxine 125 mcg tablet 125 mcg PO DAILY 10/15/14 Unknown History metoprolol tartrate 50 mg tablet 50 mg PO DAILY 10/15/14 Unknown Hi story doxycycline hyclate 100 mg capsule 100 mg PO BID ##28 01/12/17 Unkn own Rx albuterol sulfate 90 mcg/actuation 2 puff inhalation Q4H PRN PRN Unknown Rx aerosol inhaler (Ventolin HFA) Wheezing ##1 prednisone 20 mg tablet 60 mg (3 x 20 mg) PO DAILY #15 08/14 Unknown Rx TABLETS clindamycin HCl 300 mg capsule 300 mg PO 4X/DAY 10 days #40 12/23 Unknown Rx (Cleocin HCl) CAPSULES furosemide 20 mg tablet (Lasix) 20 mg PO DAILY 30 days #30 tabs Unknown Rx nystatin 100,000 unit/mL oral 5 ml PO 4X/DAY 14 days #280 mL 01/13 Unknown Rx suspension Allergy/AdvReac Type Severity Reaction Status Date / Time Sulfa (Sulfonamide Allergy Swelling Verified 12/23/24 00:40 Antibiotics) sulfamethoxazole (From Allergy Swelling Verified 12/23/24 00:40 Bactrim) trimethoprim (From Bactrim) Allergy Swelling Verified 12/23/24 00:40 prednisone AdvReac Intermediate Swelling Verified 12/23/24 00:40 Social History (Updated 08/31/24 @ 08:[address] Terry Gould MD) household members: none Smoking Status: Current every day smoker tobacco type: cigarettes ROS ROS ED Constitutional Constitutional ED: Reports other Details: Positive fatigue ; Denies chills or fever(s) Eyes Eyes: Denies change in vision ENT ENT ED: Reports sore throat and other Details: Positive oral lesions Cardiovascular Cardiovascular: Denies chest pain, palpitations or racing heartbeat Respiratory/Chest Respiratory/Chest: Denies cough or dyspnea Gastrointestinal Gastrointestinal: Denies abdominal pain, diarrhea, nausea or vomiting Genitourinary Genitourinary ED: Denies dysuria Musculoskeletal Musculoskeletal: Reports other Details: Positive leg swelling ; Denies myalgias Integumentary Reports rash and other Details: Positive redness to the abdominal wall Neurologic Neurologic: Reports headache(s) Hematologic/Lymphatic Hematologic/Lymphatic : Denies easy bleeding or easy bruising Allergic/Immunologic Allergic/Immunologic ED: Denies mouth swelling or tongue swelling EXAM Physical Exam Const Vital Signs: 12/23/24 00:40 12/23/24 00:46 12/23/24 00:46 Temperature 97.8 F 97.6 F L Temperature Source Oral Oral Pulse Rate 88 86 Respiratory Rate 20 H 17 Respiratory Effort Short of Breath Respiratory Depth Shallow Respiratory Pattern Normal Blood Pressure 152/108 H 152/108 H Blood Pressure Mean 122 122 Pulse Ox 94 94 94 Oxygen Delivery Method Room Air Room Air Room Air 12/23/24 00:51 12/23/24 02:13 12/23/24 03:19 Temperature 98.1 F 98.5 F Temperature Source Oral Pulse Rate 82 78 Respiratory Rate 16 22 H Respiratory Effort Labored Respiratory Depth Shallow Respiratory Pattern Tachypnea Blood Pressure 127/100 H 120/86 H Blood Pressure Mean 109 97 Pulse Ox 95 90 Oxygen Delivery Method Room Air Room Air Positive well nourished, well developed and obese General Appearance ED: well developed Nutritional Appearance: obese HEENT HEENT Narrative: There are white scrappable lesions across (more content not included)... Normal [facility] Eosinophil percentageOrdered By: Salty Werner on 12-23-2024 Eosinophils/100 WBC (Bld) 5.9 % High 0-5 [facility] Erythrocyte distribution wid th (RBC) [Ratio]Ordered By: Salty Werner on 12-23-2024 Erythrocyte distribution width (RBC) [Entitic vol] 44.8 fL High 35.1-43.9 [facility] Erythrocyte distribution wid th ratioOrdered By: Salty Werner on 12-23-2024 Erythrocyte distribution width (RBC) [Ratio] 13.3 % 11.6-14.6 [facility] Estimation of creatinine ailin aranceOrdered By: Salty Werner on 12-23-2024 Estimated Creatinine Clearance Calc 81.66 ml/min 50-250 [facility] GFR/1.73 sq M.predicted alonso g non-blacks MDRD (S/P/Bld) [Vol rate/Area]Ordered By: Salty Werner on 12-23-2024 Estimated GFR (MDRD) Non-Af Amer 61 >60 [facility] Comment on above: mL/min/1.73m2 CKD-EP I Creatinine Equation (2020) Hematocrit Auto (Bld) [Volum e fraction]Ordered By: Salty Werner on 12-23-2024 Hematocrit (Bld) [Volume fraction] 53.1 % 40-54 [facility] Hemoglobin measurementOrdere d By: Salty Werner on 12-23-2024 Hemoglobin (Bld) [Mass/Vol] 17.3 g/dL High 13.0-16.5 [facility] Immature granulocytes/100 WB C Auto (Bld)Ordered By: Salty Werner on 12-23-2024 Immature granulocytes/100 WBC (Bld) 0.400 % 0.0-0.9 [facility] Comment on above: IG% - Immature Granu locytes (promyelocytes, myelocytes and metamyelocytes) > 1% indicates that a LEFT SHIFT is Present. L503.7505on 12-23-2024 Natriuretic peptide B (Bld) [Mass/Vol] 2826 pg/mL High <=900 [facility] Comment on above: Result Comment: Hear t Failure Unlikely: < 300 pg/mL Heart Failure Likely < 50 Years: > 450 pg/mL 50-75 Years: > 900 pg/mL >75 Years: > 1800 pg/mL Performed By: #### L 500.2500, L503.7505, L100.0100 #### [facility] [address] [place], [place], [id number] Laboratory - Chemistry and C hemistry - challengeOrdered By: Salty Werner on 12-23-2024 Natriuretic peptide B (Bld) [Mass/Vol] 2826 pg/mL High <900 [facility] Comment on above: Heart Failure Unlike ly: < 300 pg/mLHeart Failure Likely< 50 Years: > 450 pg/mL50-75 Years: > 900 pg/mL>75 Years: > 1800 pg/mL Lymphocytes Auto (Unsp spec) [#/Vol]Ordered By: Salty Werner on 12-23-2024 Lymphocytes (Bld) [#/Vol] 3.67 10*3/uL 0.83-4.51 [facility] Lymphocytes/100 WBC Auto (Un sp spec)Ordered By: Salty Werner on 12-23-2024 Lymphocytes/100 WBC (Bld) 36.5 % 19-41 [facility] MCV (mean corpuscular volume ) determinationOrdered By: Salty Werner on 12-23-2024 MCV (RBC) [Entitic vol] 92.2 fL 80-94 [facility] Mean corpuscular hemoglobin (MCH) determinationOrdered By: Salty Werner on 12-23-2024 MCH (RBC) [Entitic mass] 30.0 pg 27.0-32.0 [facility] Mean corpuscular hemoglobin concentration (MCHC) determinationOrdered By: Salty Werner on 12-23-2024 MCHC (RBC) [Mass/Vol] 32.6 g/dL 32-36 [facility] Mean platelet volume determi nationOrdered By: Salty Werner on 12-23-2024 Platelet mean volume (Bld) [Entitic vol] 10.6 fL 6.2-12.0 [facility] Monocyte percentageOrdered B y: Salty Werner on 12-23-2024 Monocytes/100 WBC (Bld) 10.7 % High 0-10 [facility] Neutrophil percentageOrdered By: Salty Werner on 12-23-2024 Neutrophils/100 WBC (Bld) 46.1 % Low 47-70 [facility] Nucleated red blood cell per centageOrdered By: Salty Werner on 12-23-2024 Nucleated RBC/100 WBC (Bld) [Ratio] 0 % 0-5 [facility] Platelet countOrdered By: Merari Werner on 12-23-2024 Platelets (Bld) [#/Vol] 223 10*3/uL 150-450 [facility] Potassium (Unsp spec) [Mass/ Vol]Ordered By: Salty Werner on 12-23-2024 Potassium [Moles/Vol] 3.9 mmol/L 3.3-5.1 [facility] RBC Auto (Bld) [#/Vol]Ordere d By: Salty Werner on 12-23-2024 RBC (Bld) [#/Vol] 5.76 10*6/uL 4.6-6.2 [facility] Serum creatinine measurement (mass/volume)Ordered By: Salty Werner on 12-23-2024 Creatinine [Mass/Vol] 1.32 mg/dL High 0.70-1.20 [facility] Serum glucose measurement (m ass/volume)Ordered By: Salty Werner on 12-23-2024 Glucose [Mass/Vol] 218 mg/dL High 70-99 [facility] Serum or plasma calcium greer urement (mass/volume)Ordered By: Salty Werner on 12-23-2024 Calcium [Mass/Vol] 9.1 mg/dL 7.6-11.0 [facility] Serum or plasma urea nitroge n measurement (mass/volume)Ordered By: Salty Werner on 12-23-2024 Urea nitrogen [Mass/Vol] 22 mg/dL High 4-19 [facility] Sodium levelOrdered By: Helder Werner on 12-23-2024 Sodium [Moles/Vol] 138 mmol/L 133-145 [facility] White blood cell (WBC) count Ordered By: Salty Werner on 12-23-2024 WBC (Bld) [#/Vol] 10.1 10*3/uL 4.4-11.0 [facility] CNPNon 12-21-2024 CNPN Telephone (FAMWS) VENKAT MARSH ([id number]) 1965 M Date Time Provider Department 12/21/24 [facility] During your visit today, we recorded the following information about you: Magnolia Mcmahon RN 12/21/2024 2:00 PM Signed Patient calls and states that he had a prescription last month for thrush. Patient reports that he did not pick this up due to insurance issues. Patient asking if prescription can be written again. [facility]. Advised patient that Dr. Brizuela never had seen patient for thrush and that patient needs to seen in office for this to have this ordered. Patient voiced understanding. Patient states that he is driving and cannot make an appointment at this time. Magnolia Mcmahon RN Allergies As of Date: 12/21/2024 Noted Allergy Reaction AMOXICILLIN-POT CLAVULANATE 12/23/2023 10 - Anaphylaxis 7 - Swelling DOXYCYCLINE 11/09/2024 16 - Unknown LISINOPRIL 04/24/2023 3 - Cough SULFAMETHOXAZOLE-TRIM ETHOPRIM 10/20/2009 2 - Rash 4 - Hives 7 - Swelling TRIMETHOPRIM 09/04/2023 7 - Swelling Date Reviewed: 12/08/2024 Reviewed by: Issac Xiao MD - Fully Assessed Prescriptions as of 12/21/2024 - azithromycin (ZITHROMAX) 250 mg tablet Take 1 tablet by mouth once daily. - predniSONE (DELTASONE) 20 mg tablet Take 40 mg by mouth once daily. - aspirin, enteric coated (ASPIRIN, ENTERIC COATED) 81 mg EC tablet Take 1 tablet by mouth once daily. - amLODIPine (NORVASC) 2.5 mg tablet Take 1 tablet by mouth once daily. - metoprolol succinate ER (TOPROL XL) 25 mg 24 hr tablet Take 1 tablet by mouth once daily. - BD SAFETYGLIDE INSULIN SYRINGE 0.5 mL 30 gauge x 5/16 syrg Inject 1 Each subcutaneously every 24 hours. Give with each insulin administration. - dulaglutide (TRULICITY) 1.5 mg/0.5 mL pen injector Inject 1.5 mg subcutaneously one time a week. Monitor bs closely and keep food log - albuterol HFA (PROVENTIL HFA, VENTOLIN HFA) 90 mcg/actuation inhaler Inhale 2 Puffs as instructed every 4 hours as needed for wheezing/shortness of breath. - empagliflozin (JARDIANCE) 10 mg tablet Take 1 tablet by mouth daily with breakfast. - metFORMIN (GLUCOPHAGE) 1,000 mg tablet Take 1 tablet by mouth two times a day. - levothyroxine (SYNTHROID) 125 mcg tablet Take 1 tablet by mouth daily before breakfast. - Insulin Whitman, Disposable, (PEN NEEDLE) 32 gauge x 5/32 Inject 1 Each subcutaneously every 24 hours. Give with each insulin administration. - insulin glargine 100 unit/mL (3 mL) Inject 20 Units subcutaneously daily at bedtime. Inject 20 Units subcutaneously as directed - mirtazapine (REMERON) 15 mg tablet Take 1 tablet by mouth daily at bedtime. - magnesium, aluminum hydroxide (MYLANTA ORAL) Take 5 mL by mouth two times a day as needed (heartburn). Meds Comments as of 10/23/2023: 10/23/23 The medications are managed by this patient by: PATIENT OPHELIA Crooks Problem List As Of Date 12/21/2024 Noted Resolved CAD (coronary artery disease) [I25.10] 09/04/2014 S/P coronary artery stent placement [Z95.5] 09/04/2014 Left bundle branch block (LBBB) on electrocardi*09/04/20 14 H/O myocardial infarction, greater than 8 weeks*09/04/2014 Tobacco abuse [Z72.0] 09/04/2014 Obesity [E66.9] 09/04/2014 Status post insertion of drug-eluting stent int*11/17/2016 Non morbid obesity due to excess calories [E66.*11/17/2016 Obesity, Class III, BMI >= 40 [E66.01] 05/11/2023 Hypercholesteremia [E78.00] HTN (hypertension) [I10] Schizoaffective disorder, bipolar type ([facility]) [F*09/10/2023 11/02/2023 Cocaine dependence in remission ([facility]) [F14.21] 09/10/2023 Hypothyroidism [E03.9] Diabetes mellitus ([facility]) [E11.9] Cataract, nuclear sclerotic, both eyes [H25.13] 10/23/2023 Hyperopia of both eyes [H52.03] 10/23/2023 Regular astigmatism of both eyes [H52.223] 10/23/2023 Presbyopia of both eyes [H52.4] 10/23/2023 Mood disorder ([facility]) [F39] 11/02/2023 Acute systolic HF (heart failure) (HCC) [I50.21]04/13/2024 Acute on chronic systolic (congestive) heart fa*04/13/2024 04/15/2024 Atrial fib/flutter, transient (HCC) [I48.91, I4*04/14/2024 Mixed hyperlipidemia [E78.2] 04/14/2024 Morbid obesity (HCC) [E66.01] 04/14/2024 Essential hypertension [I10] 04/14/2024 Chronic HFrEF (heart failure with reduced eject*04/14/2024 Typical atrial flutter (HCC) [I48.3] 04/15/2024 Non-compliant patient [Z91.199] Encounter Status:Closed by MAGNOLIA MCMAHON on 12/21/24 [facility] CNPN Telephone ([place]) VENKAT MARSH ([id number]) 1965 M Date Time Provider Department 12/21/24 [facility] [place] During your visit today, we recorded the following information about you: Bakari Dumont 12/21/2024 1:40 PM Signed Patient called in requesting a refill and to update insurance. Made patient aware that he will have to contact his PCP as he is not currently a patient of our office. Establish care 01/10/25 in our office. Patient insurance has been updated in the system. Bakari Dumont Housekeeping Worker I December 21, 2024 1:39 PM Allergies As of Date: 12/21/2024 Noted Allergy Reaction AMOXICILLIN-POT CLAVULANATE 12/23/2023 10 - Anaphylaxis 7 - Swelling DOXYCYCLINE 11/09/2024 16 - Unknown LISINOPRIL 04/24/2023 3 - Cough SULFAMETHOXAZOLE-TRIM ETHOPRIM 10/20/2009 2 - Rash 4 - Hives 7 - Swelling TRIMETHOPRIM 09/04/2023 7 - Swelling Date Reviewed: 12/08/2024 Reviewed by: Issac Xiao MD - Fully Assessed Reason for Visit: Patient Update [1234] Prescriptions as of 12/21/2024 - azithromycin (ZITHROMAX) 250 mg tablet Take 1 tablet by mouth once daily. - predniSONE (DELTASONE) 20 mg tablet Take 40 mg by mouth once daily. - aspirin, enteric coated (ASPIRIN, ENTERIC COATED) 81 mg EC tablet Take 1 tablet by mouth once daily. - amLODIPine (NORVASC) 2.5 mg tablet Take 1 tablet by mouth once daily. - metoprolol succinate ER (TOPROL XL) 25 mg 24 hr tablet Take 1 tablet by mouth once daily. - BD SAFETYGLIDE INSULIN SYRINGE 0.5 mL 30 gauge x 5/16 syrg Inject 1 Each subcutaneously every 24 hours. Give with each insulin administration. - dulaglutide (TRULICITY) 1.5 mg/0.5 mL pen injector Inject 1.5 mg subcutaneously one time a week. Monitor bs closely and keep food log - albuterol HFA (PROVENTIL HFA, VENTOLIN HFA) 90 mcg/actuation inhaler Inhale 2 Puffs as instructed every 4 hours as needed for wheezing/shortness of breath. - empagliflozin (JARDIANCE) 10 mg tablet Take 1 tablet by mouth daily with breakfast. - metFORMIN (GLUCOPHAGE) 1,000 mg tablet Take 1 tablet by mouth two times a day. - levothyroxine (SYNTHROID) 125 mcg tablet Take 1 tablet by mouth daily before breakfast. - Insulin Whitman, Disposable, (PEN NEEDLE) 32 gauge x 5/32 Inject 1 Each subcutaneously every 24 hours. Give with each insulin administration. - insulin glargine 100 unit/mL (3 mL) Inject 20 Units subcutaneously daily at bedtime. Inject 20 Units subcutaneously as directed - mirtazapine (REMERON) 15 mg tablet Take 1 tablet by mouth daily at bedtime. - magnesium, aluminum hydroxide (MYLANTA ORAL) Take 5 mL by mouth two times a day as needed (heartburn). Meds Comments as of 10/23/2023: 10/23/23 The medications are managed by this patient by: PATIENT OPHELIA Crooks Problem List As Of Date 12/21/2024 Noted Resolved CAD (coronary artery disease) [I25.10] 09/04/2014 S/P coronary artery stent placement [Z95.5] 09/04/2014 Left bundle branch block (LBBB) on electrocardi*09/04/20 14 H/O myocardial infarction, greater than 8 weeks*09/04/2014 Tobacco abuse [Z72.0] 09/04/2014 Obesity [E66.9] 09/04/2014 Status post insertion of drug-eluting stent int*11/17/2016 Non morbid obesity due to excess calories [E66.*11/17/2016 Obesity, Class III, BMI >= 40 [E66.01] 05/11/2023 Hypercholesteremia [E78.00] HTN (hypertension) [I10] Schizoaffective disorder, bipolar type (HCC) [F*09/10/2023 11/02/2023 Cocaine dependence in remission (HCC) [F14.21] 09/10/2023 Hypothyroidism [E03.9] Diabetes mellitus (HCC) [E11.9] Cataract, nuclear sclerotic, both eyes [H25.13] 10/23/2023 Hyperopia of both eyes [H52.03] 10/23/2023 Regular astigmatism of both eyes [H52.223] 10/23/2023 Presbyopia of both eyes [H52.4] 10/23/2023 Mood disorder (HCC) [F39] 11/02/2023 Acute systolic HF (heart failure) (HCC) [I50.21]04/13/2024 Acute on chronic systolic (congestive) heart fa*04/13/2024 04/15/2024 Atrial fib/flutter, transient (HCC) [I48.91, I4*04/14/2024 Mixed hyperlipidemia [E78.2] 04/14/2024 Morbid obesity (HCC) [E66.01] 04/14/2024 Essential hypertension [I10] 04/14/2024 Chronic HFrEF (heart failure with reduced eject*04/14/2024 Typical atrial flutter (HCC) [I48.3] 04/15/2024 Non-compliant patient [Z91.199] Encounter Status:Closed by BAKARI DUMONT on 12/21/24 [facility] CNOVon 12-08-2024 CNOV Office Visit (OTFGFL ) VENKAT MARSH ([id number]) 1965 M Date Time Provider Department 12/08/24 12:45 PM [facility] During your visit today, we recorded the following information about you: Pulse Respiration Blood pressure Weight 88/minute 16/minute 128/70 137.9 kg Height 1.702 m Issac Xiao MD 12/08/2024 1:29 PM Signed Come in sooner if there are problems or changes. Issac Xiao MD 12/18/2024 6:34 PM Signed VENETIE IRA: Venkat Marsh is a 59 year old, White, male who returns, I am here about my left neck and thyroid. He thinks that his left neck mass that he first noticed about 7 months ago is getting smaller since he has been taking ivermectin. He does not think there has been a change in his thyroid mass. He is s/p right thyroidectomy at [facility] in 08/2008. He did not have any problem after the FNAs in the office last visit or after the guided FNA of the left neck mass about a week ago. SUBJECTIVE: I reviewed the allergies, medications, problem list, PMH/PSH, FmHx and SocHx as documented in Epic chart. PHYSICAL EXAM: VS: BP 128/70 Pulse 88 Resp 16 Ht 170.2 cm (5' 7) Wt (!) 137.9 kg (304 lb) BMI 47.61 kg/m? H/F/N: The facial motion is overall normal. There are no palpable salivary gland masses. The left neck has an indistinct soft 3 cm mass deep to the left SCM. There is a 2 cm isthmus area nodule/goiter. OBJECTIVE: I reviewed with the patient that the thyroid FNA cytology/testing 11/09/2024 through [facility] was consistent with a benign follicular nodule. I reviewed with the patient that the left neck mass FNA cytology of the same date showed fibroadipose tissue with focal a plasia. Because of this he was sent for a guided core biopsy, 11/30/2024 which I reviewed with him showed scant adipose tissue and acellular polarizable material insufficient for evaluation. ASSESSMENT AND PLAN: I counseled the patient about the differential diagnosis, natural course, treatment options and answered their questions for all diagnoses and orders: 1. Lipoma of neck - ICD9: 214.1, ICD10: D17.0 2. Nontoxic multinodular goiter - ICD9: 241.1, ICD10: E04.2 At this point he defers surgery on the left neck mass, probable lipoma. He does not appear to need surgery for the thyroid benign follicular nodule. He was counseled to come back sooner if the mass is enlarged. Return in about 6 months (around 06/10/2025) for Neck. Issac Xiao MD 35 minutes Total time including preparation, obtaining/reviewing history, exam, interpreting results, ordering, counseling/education, referring/communicati ng and documentation. Created using voice recognition software, some errors may have occurred. Corrections may be performed at a later date. Allergies As of Date: 12/08/2024 Noted Allergy Reaction AMOXICILLIN-POT CLAVULANATE 12/23/2023 10 - Anaphylaxis 7 - Swelling DOXYCYCLINE 11/09/2024 16 - Unknown LISINOPRIL 04/24/2023 3 - Cough SULFAMETHOXAZOLE-TRIM ETHOPRIM 10/20/2009 2 - Rash 4 - Hives 7 - Swelling TRIMETHOPRIM 09/04/2023 7 - Swelling Date Reviewed: 12/08/2024 Reviewed by: Issac Xiao MD - Fully Assessed Reason for Visit: Follow Up [171] Cmt: Neck mass Visit Diagnoses:Lipoma of neck [D17.0] Nontoxic multinodular goiter [E04.2] Prescriptions as of 12/18/2024 - azithromycin (ZITHROMAX) 250 mg tablet Take 1 tablet by mouth once daily. - predniSONE (DELTASONE) 20 mg tablet Take 40 mg by mouth once daily. - aspirin, enteric coated (ASPIRIN, ENTERIC COATED) 81 mg EC tablet Take 1 tablet by mouth once daily. - amLODIPine (NORVASC) 2.5 mg tablet Take 1 tablet by mouth once daily. - metoprolol succinate ER (TOPROL XL) 25 mg 24 hr tablet Take 1 tablet by mouth once daily. - BD SAFETYGLIDE INSULIN SYRINGE 0.5 mL 30 gauge x 5/16 syrg Inject 1 Each subcutaneously every 24 hours. Give with each insulin administration. - dulaglutide (TRULICITY) 1.5 mg/0.5 mL pen injector Inject 1.5 mg subcutaneously one time a week. Monitor bs closely and keep food log - albuterol HFA (PROVENTIL HFA, VENTOLIN HFA) 90 mcg/actuation inhaler Inhale 2 Puffs as instructed every 4 hours as needed for wheezing/shortness of breath. - empagliflozin (JARDIANCE) 10 mg tablet Take 1 tablet by mouth daily with breakfast. - metFORMIN (GLUCOPHAGE) 1,000 mg tablet Take 1 tablet by mouth two times a day. - levothyroxine (SYNTHROID) 125 mcg tablet Take 1 tablet by mouth daily before breakfast. - Insulin Whitman, Disposable, (PEN NEEDLE) 32 gauge x 5/32 Inject 1 Each subcutaneously every 24 hours. Give with each insulin administration. - insulin glargine 100 unit/mL (3 mL) Inject 20 Units subcutaneously daily at bedtime. Inject 20 Units subcutaneously as directed - mirtazapine (REMERON) 15 mg tablet Take 1 tablet by mouth daily at bedtime. - magnesium, aluminum hydroxid (more content not included)... Normal [facility] XR CHEST 1 VIEWon 12-03-2024 XR CHEST 1 VIEW ORIGINAL EXAMINATION: ONE XRAY VIEW OF THE CHEST12/03/2024 11:11 pm COMPARISON: Chest radiographs 11/09/2024 my and 03/29/2024. HISTORY: ORDERING SYSTEM PROVIDED HISTORY: Reason for Exam: SOB/cough/fever FINDINGS: Cardiomediastinal contours are borderline enlarged and stable. Mild bilateral diffuse interstitial prominence. No focal consolidation. No pneumothorax or large pleural effusion. No acute osseous abnormalities. IMPRESSION: Bilateral mild diffuse interstitial prominence, findings may artifactual from patient body habitus or alternatively be seen with infectious/inflammato ry process and/or mild pulmonary edema. No focal consolidation. I have personally reviewed the images of this examination and agree with the resident's findings and interpretation. Interpreted by: Avery Michel Preliminary Report By: Valeria Mathews Electronically signed By Avery Michel Dictated Date: 12/03/2024 11:16:22 PM Prelim Date: 12/03/2024 11:19:35 PM Sign Date: 12/03/2024 11:22:01 PM Ordering Provider: YANA DUMONT [facility] BRIEF OP NOTon 11-30-2024 BRIEF OP NOT HNO ID: [id number] Author: HECTOR FULTON MD Service: Interventional Radiology Author Type: Physician Type: Brief Op Note Filed: 11/30/2024 08:27 Note Text: BRIEF OPERATIVE / PROCEDURE NOTE LOG ID: [id number] SURGERY/PROCEDURE DATE: 11/30/2024 INCISION/PROCEDURE START TIME: INCISION CLOSE/PROCEDURE END TIME: SURGEON(S)/PROCEDURAL IST(S) AND INDUSTRIAL HYGIENE MANAGER(S): Surgeons and Role: * Hector Fulton MD - Primary No Additional Staff SURGERY/PROCEDURE(S): Left neck mass biopsy ANESTHESIA: Local FINDINGS: Known fatty left neck mass biopsied with ultrasound guidance. ESTIMATED BLOOD LOSS: 1 mL SPECIMENS: Two 18 gauge cores. COMPLICATIONS: None CLOSURE TECHNIQUE: Primary PRE-OP/PRE-PROCEDURE DIAGNOSIS: Fatty mass in left neck. POST-OP/POST-PROCEDUR E DIAGNOSIS: Same as Preop SIGNATURE: Hector Fulton MD PATIENT NAME: Venkat Marsh DATE: November 30, 2024 TIME: 8:26 AM [facility] Guidance for biopsy of Soft tissueon 11-30-2024 IMPRESSION: Ultrasound-guided biopsy of fatty left neck mass. Pathology results are pending. Tearoom Host/Hostess: PSCB Transcribe Date/Time: Nov 30 2024 8:37A Dictated by : HECTOR FULTON MD This examination was interpreted and the report reviewed and electronically signed by: HECTOR FULTON MD on Nov 30 2024 8:39AM EST [facility] * * *Final Report* * * DATE OF EXAM: Nov 30 2024 8:32AM [id number] - US BIOPSY SOFT TISS MASS/MUSCLE / PROCEDURE REASON: R22.1, D17.0 * * * * Physician Interpretation * * * * Ultrasound-guided left neck mass biopsy, 11/30/2024. Reason for procedure: 59-year-old male patient with predominantly fatty left neck mass COMPARISON: CT of the neck dated November 01, 2024 Informed consent was obtained from the patient. The patient was evaluated for the safety and appropriateness of conscious sedation and the Moderate Sedation Record was completed. The procedure was performed with local anesthetic. Complications: None immediate. Procedure details and findings: The patient's previous studies were reviewed. After obtaining informed consent, the patient brought to the ultrasound procedure suite and positioned right lateral decubitus on the gurney. A timeout was performed to verify the patient's identity and the appropriateness of the procedure. Sonographic evaluation of the area of concern confirmed the presence of the known lipomatous mass. The left neck was prepped and draped in usual sterile fashion. Following administration of local anesthetic, real-time ultrasound guidance was used, with image capture, to obtain 2 18-gauge core biopsy needle specimens from the lesion. Specimens were submitted to pathology in formalin. The procedure was terminated at this point. Hemostasis was achieved using manual compression at the puncture site. A sterile dressing was applied. The patient tolerated the procedure well. [facility] Provider, [facility] - 11/30/2024 * * *Final Report* * * DATE OF EXAM: Nov 30 2024 8:32AM [id number] - US BIOPSY SOFT TISS MASS/MUSCLE / PROCEDURE REASON: R22.1, D17.0 * * * * Physician Interpretation * * * * Ultrasound-guided left neck mass biopsy, 11/30/2024. Reason for procedure: 59-year-old male patient with predominantly fatty left neck mass COMPARISON: CT of the neck dated November 01, 2024 Informed consent was obtained from the patient. The patient was evaluated for the safety and appropriateness of conscious sedation and the Moderate Sedation Record was completed. The procedure was performed with local anesthetic. Complications: None immediate. Procedure details and findings: The patient's previous studies were reviewed. After obtaining informed consent, the patient brought to the ultrasound procedure suite and positioned right lateral decubitus on the gurney. A timeout was performed to verify the patient's identity and the appropriateness of the procedure. Sonographic evaluation of the area of concern confirmed the presence of the known lipomatous mass. The left neck was prepped and draped in usual sterile fashion. Following administration of local anesthetic, real-time ultrasound guidance was used, with image capture, to obtain 2 18-gauge core biopsy needle specimens from the lesion. Specimens were submitted to pathology in formalin. The procedure was terminated at this point. Hemostasis was achieved using manual compression at the puncture site. A sterile dressing was applied. The patient tolerated the procedure well. IMPRESSION IMPRESSION: Ultrasound-guided biopsy of fatty left neck mass. Pathology results are pending. Tearoom Host/Hostess: NESTOR Transcribe Date/Time: Nov 30 2024 8:37A Dictated by : HECTOR FULTON MD This examination was interpreted and the report reviewed and electronically signed by: HECTOR FULTON MD on Nov 30 2024 8:39AM EST [facility] Radiology Study observation (narrative) [facility] Guidance for biopsy of Soft tissueOrdered By: Ccf Provider on 11-30-2024 [facility] Pathology biopsy report Shahbaz (Tiss)on 11-30-2024 AP DISCLAIMER Normal [facility] Comment on above: Order Comment: Speci men Type: TISSUE SPECIMENOrdering Facility: [facility] Address: [address] [place] [address] Result Comment: Yvonne canales Developed Test (LDT) Disclaimer: Performance characteristics of immunohistochemical, immunofluorescent, and chromogenic in-situ hybridization tests have been determined by the performing laboratory within [facility]'s [facility] Pathology and Laboratory Medicine Department ([facility], [facility], [facility], [facility], [facility], [facility], or [facility]) in a manner consistent with CLIA requirements. One or more of these tests may not have been cleared or approved by the FDA. [facility] is regulated under CLIA as qualified to perform high-complexity testing. These tests are used for clinical purposes. These should not be regarded as investigational or for research. Positive and negative controls stain appropriately. Performed By: #### 6 6121-5 ####[facility] LABORATORYCLIA [id number] [address] STATES OF [facility] CASE REPORT Normal [facility] Comment on above: Order Comment: Speci men Type: TISSUE SPECIMENOrdering Facility: [facility] Address: [address] [place] [address] Result Comment: Surg ical Pathology Report Case: [id number] Authorizing Provider: Hector Fulton MD Collected: 11/30/2024 08:14 AM Ordering Location: [facility] Received: 11/30/2024 10:16 AM INTERVENTIONAL RADIOLOGY Pathologist: Avril Alcantar MD Specimen: Adipose Tissue Performed By: #### 6 6121-5 ####[facility] LABORATORYCLIA [id number] [address] [place] CLINICAL HISTORY Fatty left neck mass Normal [facility] Comment on above: Order Comment: Speci men Type: TISSUE SPECIMENOrdering Facility: [facility] Address: [address] [place] [address] Performed By: #### 6 6121-5 ####[facility] LABORATORYCLIA [id number] [address] FINAL DIAGNOSIS Normal [facility] Comment on above: Order Comment: Speci men Type: TISSUE SPECIMENOrdering Facility: [facility] Address: [address] [place] [address] Result Comment: Adip ose tissue, biopsy: - Scant adipose tissue and acellular polarizable material, insufficient for evaluation. - See comment. at 1143 EDT Performed By: #### 6 6121-5 ####[facility] LABORATORYCLIA [id number] [address] FINAL PERFORMING LAB Normal [facility] Comment on above: Order Comment: Speci men Type: TISSUE SPECIMENOrdering Facility: [facility] Address: [address] [place] [address] Result Comment: Diag nostic interpretation performed at: [facility], [address] [address] CLIA# [id number] [employer] Warehouse Helper: Baron Romo MD Performed By: #### 6 6121-5 ####[facility] LABORATORYCLIA [id number] [address] GROSS DESCRIPTION Normal [facility] Comment on above: Order Comment: Speci men Type: TISSUE SPECIMENOrdering Facility: [facility] Address: [address] [place] [address] Result Comment: A. A dipose Tissue Received in formalin labeled adipose tissue are 3 segments of cylindrical tissue aggregating to 2.1 x 0.2 x 0.1 cm, dominguez and of a soft consistency. Totally submitted in one cassette. Gross examination performed at [facility], [address] [place] [address] RSA November 30, 2024 2:38 PM Performed By: #### 6 6121-5 ####[facility] LABORATORYCLIA [id number] [place] [id number] [place] US BIOPSY SOFT TISS MASS/MUS [facility] 11-30-2024 US BIOPSY SOFT TISS MASS/MUSCLE * * *Final Report* * * DATE OF EXAM: Nov 30 2024 8:32AM [facility] 1068 - US BIOPSY SOFT TISS MASS/MUSCLE / PROCEDURE REASON: R22.1, D17.0 * * * * Physician Interpretation * * * * Ultrasound-guided left neck mass biopsy, 11/30/2024. Reason for procedure: 59-year-old male patient with predominantly fatty left neck mass COMPARISON: CT of the neck dated November 01, 2024 Informed consent was obtained from the patient. The patient was evaluated for the safety and appropriateness of conscious sedation and the Moderate Sedation Record was completed. The procedure was performed with local anesthetic. Complications: None immediate. Procedure details and findings: The patient's previous studies were reviewed. After obtaining informed consent, the patient brought to the ultrasound procedure suite and positioned right lateral decubitus on the gurney. A timeout was performed to verify the patient's identity and the appropriateness of the procedure. Sonographic evaluation of the area of concern confirmed the presence of the known lipomatous mass. The left neck was prepped and draped in usual sterile fashion. Following administration of local anesthetic, real-time ultrasound guidance was used, with image capture, to obtain 2 18-gauge core biopsy needle specimens from the lesion. Specimens were submitted to pathology in formalin. The procedure was terminated at this point. Hemostasis was achieved using manual compression at the puncture site. A sterile dressing was applied. The patient tolerated the procedure well. IMPRESSION: Ultrasound-guided biopsy of fatty left neck mass. Pathology results are pending. Tearoom Host/Hostess: NESTOR Transcribe Date/Time: Nov 30 2024 8:37A Dictated by : HECTOR FULTON MD This examination was interpreted and the report reviewed and electronically signed by: HECTOR FULTON MD on Nov 30 2024 8:39AM EST [id number] [facility] CNPNon 11-15-2024 [facility] Telephone (OTFGFL) SALMAVENKAT Krzysztof ([id number]) 1965 M Date Time Provider Department 11/15/24 [facility] During your visit today, we recorded the following information about you: Germain Rojas MA 11/15/2024 10:58 AM Signed [facility] Pt stated he understood. He is waiting for the appt for the CORE biopsy. Germain Rojas MA Allergies As of Date: 11/15/2024 Noted Allergy Reaction AMOXICILLIN-POT CLAVULANATE 12/23/2023 10 - Anaphylaxis 7 - Swelling DOXYCYCLINE 11/09/2024 16 - Unknown LISINOPRIL 04/24/2023 3 - Cough SULFAMETHOXAZOLE-TRIM ETHOPRIM 10/20/2009 2 - Rash 4 - Hives 7 - Swelling TRIMETHOPRIM 09/04/2023 7 - Swelling Date Reviewed: 11/09/2024 Reviewed by: Issac Xiao MD - Fully Assessed Reason for Visit: Results [95] Cmt: Afirma thyroid FNA Prescriptions as of 11/15/2024 - BD SAFETYGLIDE INSULIN SYRINGE 0.5 mL 30 gauge x /16 syrg Inject 1 Each subcutaneously every 24 hours. Give with each insulin administration. - dulaglutide (TRULICITY) 1.5 mg/0.5 mL pen injector Inject 1.5 mg subcutaneously one time a week. Monitor bs closely and keep food log - albuterol HFA (PROVENTIL HFA, VENTOLIN HFA) 90 mcg/actuation inhaler Inhale 2 Puffs as instructed every 4 hours as needed for wheezing/shortness of breath. - empagliflozin (JARDIANCE) 10 mg tablet Take 1 tablet by mouth daily with breakfast. - metFORMIN (GLUCOPHAGE) 1,000 mg tablet Take 1 tablet by mouth two times a day. - levothyroxine (SYNTHROID) 125 mcg tablet Take 1 tablet by mouth daily before breakfast. - metoprolol succinate ER (TOPROL XL) 25 mg 24 hr tablet Take 1 tablet by mouth once daily. - Insulin Whitman, Disposable, (PEN NEEDLE) 32 gauge x 5/32 Inject 1 Each subcutaneously every 24 hours. Give with each insulin administration. - insulin glargine 100 unit/mL (3 mL) Inject 20 Units subcutaneously daily at bedtime. Inject 20 Units subcutaneously as directed - mirtazapine (REMERON) 15 mg tablet Take 1 tablet by mouth daily at bedtime. - traZODone (DESYREL) 100 mg tablet Take 1 tablet by mouth daily at bedtime. - magnesium, aluminum hydroxide (MYLANTA ORAL) Take 5 mL by mouth two times a day as needed (heartburn). Meds Comments as of 10/23/2023: 10/23/23 The medications are managed by this patient by: PATIENT OPHELIA Crooks Problem List As Of Date 11/15/2024 Noted Resolved CAD (coronary artery disease) [I25.10] 09/04/2014 S/P coronary artery stent placement [Z95.5] 09/04/2014 Left bundle branch block (LBBB) on electrocardi*09/04/20 14 H/O myocardial infarction, greater than 8 weeks*09/04/2014 Tobacco abuse [Z72.0] 09/04/2014 Obesity [E66.9] 09/04/2014 Status post insertion of drug-eluting stent int*11/17/2016 Non morbid obesity due to excess calories [E66.*11/17/2016 Obesity, Class III, BMI >= 40 [E66.01] 05/11/2023 Hypercholesteremia [E78.00] HTN (hypertension) [I10] Schizoaffective disorder, bipolar type (HCC) [F*09/10/2023 11/02/2023 Cocaine dependence in remission (HCC) [F14.21] 09/10/2023 Hypothyroidism [E03.9] Diabetes mellitus (HCC) [E11.9] Cataract, nuclear sclerotic, both eyes [H25.13] 10/23/2023 Hyperopia of both eyes [H52.03] 10/23/2023 Regular astigmatism of both eyes [H52.223] 10/23/2023 Presbyopia of both eyes [H52.4] 10/23/2023 Mood disorder (HCC) [F39] 11/02/2023 Acute systolic HF (heart failure) (HCC) [I50.21]04/13/2024 Acute on chronic systolic (congestive) heart fa*04/13/2024 04/15/2024 Atrial fib/flutter, transient (HCC) [I48.91, I4*04/14/2024 Mixed hyperlipidemia [E78.2] 04/14/2024 Morbid obesity (HCC) [E66.01] 04/14/2024 Essential hypertension [I10] 04/14/2024 Chronic HFrEF (heart failure with reduced eject*04/14/2024 Typical atrial flutter (HCC) [I48.3] 04/15/2024 Non-compliant patient [Z91.199] Encounter Status:Closed by GERMAIN ROJAS on 11/15/24 [facility] VENKAT MARSH ([id number]) 1965 [place] Date Time Provider Department 11/14/24 [facility] During your visit today, we recorded the following information about you: Kiko Montana 11/14/2024 2:05 PM Signed November 14, 2024 2:04 PM Patient advised that per BMS, a CORE BX needs done to get further determination of limp Patient is ok with scheduling another FNA- CORE BX) Is this the neck mass result or thyroid results??? Issac Padgett MD 11/14/2024 2:16 PM Signed Neck mass FNA cytology showed fibroadipose tissue with focal atypia. They suggested core biopsy. This was ordered. The thyroid FNA results not returned yet. Kiko Montana 11/14/2024 2:23 PM Signed November 14, 2024 2:22 PM Patient advised of BMS message. Kiko Montana Allergies As of Date: 11/14/2024 Noted Allergy Reaction AMOXICILLIN-POT CLAVULANATE 12/23/2023 10 - Anaphylaxis 7 - Swelling DOXYCYCLINE 11/09/2024 16 - Unknown LISINOPRIL 04/24/2023 3 - Cough SULFAMETHOXAZOLE-TRIM ETHOPRIM 10/20/2009 2 - Rash 4 - Hives 7 - Swelling TRIMETHOPRIM 09/04/2023 7 - Swelling Date Reviewed: 11/09/2024 Reviewed by: Issac Xiao MD - Fully Assessed Reason for Visit: needs CORE BIOPSY [Other] Visit Diagnoses:Neck mass [R22.1] Lipoma of neck [D17.0] Order(s):IMAGING GUIDED BIOPSY CERVICAL LYMPH NODE [[id number]] Order #: [id number] Prescriptions as of 11/14/2024 - BD SAFETYGLIDE INSULIN SYRINGE 0.5 mL 30 gauge x 5/16 syrg Inject 1 Each subcutaneously every 24 hours. Give with each insulin administration. - dulaglutide (TRULICITY) 1.5 mg/0.5 mL pen injector Inject 1.5 mg subcutaneously one time a week. Monitor bs closely and keep food log - albuterol HFA (PROVENTIL HFA, VENTOLIN HFA) 90 mcg/actuation inhaler Inhale 2 Puffs as instructed every 4 hours as needed for wheezing/shortness of breath. - empagliflozin (JARDIANCE) 10 mg tablet Take 1 tablet by mouth daily with breakfast. - metFORMIN (GLUCOPHAGE) 1,000 mg tablet Take 1 tablet by mouth two times a day. - levothyroxine (SYNTHROID) 125 mcg tablet Take 1 tablet by mouth daily before breakfast. - metoprolol succinate ER (TOPROL XL) 25 mg 24 hr tablet Take 1 tablet by mouth once daily. - Insulin Whitman, Disposable, (PEN NEEDLE) 32 gauge x 5/32 Inject 1 Each subcutaneously every 24 hours. Give with each insulin administration. - insulin glargine 100 unit/mL (3 mL) Inject 20 Units subcutaneously daily at bedtime. Inject 20 Units subcutaneously as directed - mirtazapine (REMERON) 15 mg tablet Take 1 tablet by mouth daily at bedtime. - traZODone (DESYREL) 100 mg tablet Take 1 tablet by mouth daily at bedtime. - magnesium, aluminum hydroxide (MYLANTA ORAL) Take 5 mL by mouth two times a day as needed (heartburn). Meds Comments as of 10/23/2023: 10/23/23 The medications are managed by this patient by: PATIENT Calixto Latif, OA Problem List As Of Date 11/14/2024 Noted Resolved CAD (coronary artery disease) [I25.10] 09/04/2014 S/P coronary artery stent placement [Z95.5] 09/04/2014 Left bundle branch block (LBBB) on electrocardi*09/04/20 14 H/O myocardial infarction, greater than 8 weeks*09/04/2014 Tobacco abuse [Z72.0] 09/04/2014 Obesity [E66.9] 09/04/2014 Status post insertion of drug-eluting stent int*11/17/2016 Non morbid obesity due to excess calories [E66.*11/17/2016 Obesity, Class III, BMI >= 40 [E66.01] 05/11/2023 Hypercholesteremia [E78.00] HTN (hypertension) [I10] Schizoaffective disorder, bipolar type ([facility]) [F*09/10/2023 11/02/2023 Cocaine dependence in remission ([facility]) [F14.21] 09/10/2023 Hypothyroidism [E03.9] Diabetes mellitus ([facility]) [E11.9] Cataract, nuclear sclerotic, both eyes [H25.13] 10/23/2023 Hyperopia of both eyes [H52.03] 10/23/2023 Regular astigmatism of both eyes [H52.223] 10/23/2023 Presbyopia of both eyes [H52.4] 10/23/2023 Mood disorder ([facility]) [F39] 11/02/2023 Acute systolic HF (heart failure) ([facility]) [I50.21]04/13/2024 Acute on chronic systolic (congestive) heart fa*04/13/2024 04/15/2024 Atrial fib/flutter, transient ([facility]) [I48.91, I4*04/14/2024 Mixed hyperlipidemia [E78.2] 04/14/2024 Morbid obesity (HCC) [E66.01] 04/14/2024 Essential hypertension [I10] 04/14/2024 Chronic HFrEF (heart failure with reduced eject*04/14/2024 Typical atrial flutter (HCC) [I48.3] 04/15/2024 Non-compliant patient [Z91.199] Encounter Status:Closed by KIKO MONTANA on 11/14/24 [facility] .Auto Diffon 11-09-2024 Basophil, Absolute 0.1 10 3/mcL Normal 0.0-0.2 [facility] Comment on above: Performed By: #### G FR, CBC, ADIFF, ANEU, MDW, TROPHS, BMP, PBNP #### [address] [address] Basophils/100 WBC (Bld) 0.7 % Normal 0.0-2.5 [facility] Comment on above: Performed By: #### G FR, CBC, ADIFF, ANEU, MDW, TROPHS, BMP, PBNP #### [address] [address] Eosinophil, Absolute 0.4 10 3/mcL Normal 0.0-0.7 [facility] Comment on above: Performed By: #### G FR, CBC, ADIFF, ANEU, MDW, TROPHS, BMP, PBNP #### [address] [address] Eosinophils/100 WBC (Bld) 4.3 % Normal 0.0-7.0 [facility] Comment on above: Performed By: #### G FR, CBC, ADIFF, ANEU, MDW, TROPHS, BMP, PBNP #### [address] [address] Lymphocyte, Absolute 3.2 10 3/mcL Normal 0.9-4.3 [facility] Comment on above: Performed By: #### G FR, CBC, ADIFF, ANEU, MDW, TROPHS, BMP, PBNP #### [address] [address] Lymphocytes/100 WBC (Bld) 30.5 % Normal 20.0-40.0 [facility] Comment on above: Performed By: #### G FR, CBC, ADIFF, ANEU, MDW, TROPHS, BMP, PBNP #### [address] [address] Monocyte, Absolute 1.1 10 3/mcL Normal 0.1-1.4 [facility] Comment on above: Performed By: #### G FR, CBC, ADIFF, ANEU, MDW, TROPHS, BMP, PBNP #### [address] [address] Monocytes/100 WBC (Bld) 10.7 % Normal 2.0-13.0 [facility] Comment on above: Performed By: #### G FR, CBC, ADIFF, ANEU, MDW, TROPHS, BMP, PBNP #### [address] [address] Neutrophils/100 WBC (Bld) 53.8 % Normal 50.0-75.0 [facility] Comment on above: Performed By: #### G FR, CBC, ADIFF, ANEU, MDW, TROPHS, BMP, PBNP #### [address] [address] .GFRon 11-09-2024 Estimated Glomerular Filtration Rate 56 ml/min/1.73sqm Normal [facility] Comment on above: Result Comment: Stages of Chronic Kidney Disease (CKD) Stage Description eGFR(ml/min/1.73 sq.m.) CKD 1 Normal kidney function or >=90 normal kindney function with possible kidney damage (ex. Proteinuria) CKD 2 Kidney damage with mild loss 60-89 of kidney function CKD 3a Mild to moderate loss of kidney 45-59 function CKD 3b Moderate to severe loss of 30-44 of kindey function CKD 4 Severe loss of kidney function 15-29 CKD 5 Kidney failure <15 Note: (go live 2024) the eGFR calculation was updated to the 2020 CKD-EPI creatinine equation without a race factor to calculate the eGFR results. Performed By: #### G FR, CBC, ADIFF, ANEU, MDW, TROPHS, BMP, PBNP #### [address] [address] .MDWon 11-09-2024 Monocyte Distribution Width 16.89 Normal 0.00-20.00 [facility] Comment on above: Result Comment: For ED adult patients suspected of sepsis, MDW<=20.0 does not rule out sepsis or risk of sepsis Performed By: #### G FR, CBC, ADIFF, ANEU, MDW, TROPHS, BMP, PBNP #### [address] [address] .NEUABSon 11-09-2024 Neutrophil, Absolute 5.6 10 3/mcL Normal 2.3-8.1 [facility] Comment on above: Performed By: #### G FR, CBC, ADIFF, ANEU, MDW, TROPHS, BMP, PBNP #### [address] [address] BMPon 11-09-2024 BUN/Creatinine Ratio 10 ratio Normal 7-27 [facility] Comment on above: Performed By: #### G FR, CBC, ADIFF, ANEU, MDW, TROPHS, BMP, PBNP #### [address] [address] Calcium [Mass/Vol] 8.8 mg/dL Normal 8.4-10.2 [facility] Comment on above: Performed By: #### G FR, CBC, ADIFF, ANEU, MDW, TROPHS, BMP, PBNP #### [address] [address] Chloride [Moles/Vol] 102 mmol/L Normal 98-107 [facility] Comment on above: Performed By: #### G FR, CBC, ADIFF, ANEU, MDW, TROPHS, BMP, PBNP #### [address] [address] CO2 [Moles/Vol] 32 mmol/L High 23-31 [facility] Comment on above: Performed By: #### G FR, CBC, ADIFF, ANEU, MDW, TROPHS, BMP, PBNP #### [address] [address] Creatinine [Mass/Vol] 1.42 mg/dL High 0.70-1.30 [facility] Comment on above: Result Comment: Test ing performed on Siemens Dimension EXL analyzer using a modified kinetic Vineet technique. Performed By: #### G FR, CBC, ADIFF, ANEU, MDW, TROPHS, BMP, PBNP #### [address] [address] Electrolyte Balance 3.0 mEq/L Low 4.0-15.0 [place] Comment on above: Performed By: #### G FR, CBC, ADIFF, ANEU, MDW, TROPHS, BMP, PBNP #### [address] [address] Glucose [Mass/Vol] 141 mg/dL High 80-115 [facility] Comment on above: Performed By: #### G FR, CBC, ADIFF, ANEU, MDW, TROPHS, BMP, PBNP #### [address] [address] Potassium [Moles/Vol] 4.2 mmol/L Normal 3.5-5.1 [facility] Comment on above: Performed By: #### G FR, CBC, ADIFF, ANEU, MDW, TROPHS, BMP, PBNP #### [address] [address] Sodium [Moles/Vol] 137 mmol/L Normal 136-145 [facility] Comment on above: Performed By: #### G FR, CBC, ADIFF, ANEU, MDW, TROPHS, BMP, PBNP #### [address] [address] Urea nitrogen [Mass/Vol] 14 mg/dL Normal 7-18 [facility] Comment on above: Performed By: #### G FR, CBC, ADIFF, ANEU, MDW, TROPHS, BMP, PBNP #### [address] [address] CBCon 11-09-2024 Erythrocyte distribution width (RBC) [Ratio] 13.4 % Normal 11.5-15.5 [facility] Comment on above: Performed By: #### G FR, CBC, ADIFF, ANEU, MDW, TROPHS, BMP, PBNP #### [address] [address] Hematocrit (Bld) [Volume fraction] 53.0 % High 40.0-52.0 [facility] Comment on above: Performed By: #### G FR, CBC, ADIFF, ANEU, MDW, TROPHS, BMP, PBNP #### [address] [address] Hgb 17.6 G/dL High 13.0-17.5 [facility] Comment on above: Performed By: #### G FR, CBC, ADIFF, ANEU, MDW, TROPHS, BMP, PBNP #### [address] [address] MCH (RBC) [Entitic mass] 30.5 pg Normal 27.0-33.0 [facility] Comment on above: Performed By: #### G FR, CBC, ADIFF, ANEU, MDW, TROPHS, BMP, PBNP #### [address] [address] MCHC 33.2 G/dL Normal 32.0-36.0 [facility] Comment on above: Performed By: #### G FR, CBC, ADIFF, ANEU, MDW, TROPHS, BMP, PBNP #### [address] [address] MCV (RBC) [Entitic vol] 91.8 fL Normal 81.0-100.0 [facility] Comment on above: Performed By: #### G FR, CBC, ADIFF, ANEU, MDW, TROPHS, BMP, PBNP #### [place] [address] Platelet 218 10 3/mcL Normal 150-450 [facility] Comment on above: Performed By: #### G FR, CBC, RADHA, SOMMER ZAVALETA, TROPHS, BMP, PBNP #### [place] [address] [place], [place] [address] Platelet mean volume (Bld) [Entitic vol] 8.4 fL Normal 6.4-10.5 [facility] Comment on above: Performed By: #### G FR, CBC, RADHA, MEGHANN, SOMMER, TROPHS, BMP, PBNP #### [address] [address] RBC 5.77 10 6/mcL Normal 4.50-6.00 [facility] Comment on above: Performed By: #### G FR, CBC, RADHA, MEGHANN, SOMMER, TROPHS, BMP, PBNP #### [address] [address] WBC 10.4 10 3/mcL Normal 4.5-10.8 [facility] Comment on above: Performed By: #### G FR, CBC, RADHA, MEGHANN, SOMMER, TROPHS, BMP, PBNP #### [address] [address] CNOVon 11-09-2024 CNOV Office Visit (OTFGFL ) VENKAT MARSH ([id number]) 1965 M Date Time Provider Department 11/09/24 11:00 AM [facility] During your visit today, we recorded the following information about you: Pulse Respiration Blood pressure Weight 84/minute 16/minute 126/80 137 kg Height 1.702 m Issac Xiao MD 11/09/2024 12:01 PM Signed Expect some mild swelling and bruising at the biopsy sites but it should go away in a couple of days. Contact us if there are problems. Issac Xiao MD 11/10/2024 9:00 AM Signed Procedure: FNAs of left neck mass and goiter Pre-/post diagnosis: Left neck mass and goiter Description: I reviewed with the patient R/B/A and he gave OSWALDO. 2% lidocaine with epinephrine was injected over the left lateral neck mass and the isthmus goiter. A 23-gauge needle was used for several passes at each site. Slides and wash were prepared for each site. The patient tolerated this well without bleeding. He was instructed in postprocedure care. Issac Xiao MD Created using voice recognition software, some errors may have occurred. Corrections may be performed at a later date. Issac Xiao MD 11/10/2024 9:00 AM Signed VENETIE IRA: Venkat Marsh is a 59 year old, White, male who presents, I am here about my neck. He noticed a left neck mass about 7 months ago. He is not sure if it is getting larger. His PCP sent him to general surgery who ordered his CT. General surgery then sent him here. He sometimes has a little trouble breathing when he is laying down. He does have a history of OSAS but is not using CPAP. He had a right thyroidectomy at [facility] in August 2008. He does not have general bleeding or bruising problems but does take aspirin 81 mg daily. SUBJECTIVE: I reviewed the allergies, medications, problem list, PMH/PSH, FmHx and SocHx as documented in Epic chart. PHYSICAL EXAM: VS: BP 126/80 Pulse 84 Resp 16 Ht 170.2 cm (5' 7) Wt (!) 137 kg (302 lb) SpO2 95% BMI 47.30 kg/m? CONST/MS: The patient appears to be in NAD and has a normal voice quality. H/F/N: The facial motion is overall normal. There are no palpable salivary gland masses. The left neck has an indistinct soft 4 cm mass deep to the left SCM. There is a 2 cm isthmus area nodule/goiter. Ears: The external ears and canals are without lesions. Each TM is intact and mobile on pneumatic otoscopy. Nose: The external nose has a 1-2 mm benign-appearing right alar skin lesion. The nasal mucosa appears healthy on nasal speculum exam. The septum has left deviation. The IT are not hypertrophic. OC/OP: The lips and gums are without lesions. The tongue/oral mucosa is healthy. The hard/soft palate, tonsil fossa and posterior pharynx are without lesions. There is a Mallampati III palate. The teeth have some crowns and fillings. COPPER MINER: The mirror exam is prevented by gagging. HP/LX: The mirror exam is prevented by gagging. OBJECTIVE: I reviewed the general surgery notes. I reviewed the neck CT 11/01/2024 which shows a left neck mass 6 cm, deep to the SCM with slight septations and other changes within. It also shows a large left-sided and isthmus goiter with some shift and narrowing of the trachea. ASSESSMENT AND PLAN: I counseled the patient about the differential diagnosis, natural course, treatment options and answered their questions for all diagnoses and orders: 1. Neck mass - ICD9: 784.2, ICD10: R22.1 2. Nontoxic multinodular goiter - ICD9: 241.1, ICD10: E04.2 3. 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 He was counseled he should get CPAP and use it regularly. He was counseled to get FNA of both thyroid and neck mass which he would like to do today, see below. He was counseled to come in sooner if there are problems. Return in about 1 month (around 12/07/2024) for Neck. Issac Xiao MD 50 minutes Total time including preparation, obtaining/reviewing history, exam, interpreting results, ordering, counseling/education, referring/communicati ng and documentation. Created using voice recognition software, some errors may have occurred. Corrections may be performed at a later date. PROCEDURE NOTE Procedure: FNAs of left neck mass and goiter Pre-/post diagnosis: Left neck mass and goiter Description: I reviewed with the patient R/B/A and he gave OSWALDO. 2% lidocaine with epinephrine was injected over the left lateral neck mass and the isthmus goiter. A 23-gauge needle was used for several passes at each site. Slides and wash were prepared for each site. The patient tolerated this well without bleeding. He was instructed in postprocedure care. Issac Xiao MD Created using voice recognition software, some errors may have occurred. Corrections may be performed at a later date. Referring Provider: INDER BRUCE [10 (more content not included)... Normal [facility] CYTOLOGY NON-GYNon 5 CASE REPORT Normal [facility] Comment on above: Order Comment: Speci men Type: SPECIMEN OBTAINED BY ASPIRATIONOrdering Facility: [facility] Address: [address] [place] [address] Result Comment: [facility] Cytology Report Case: [id number] Authorizing Provider: Issac Xiao MD Collected: 11/09/2024 12:00 PM Ordering Location: [facility] Received: 11/09/2024 08:23 PM General Ear, Nose, and Throat (ENT) Pathologist: Raphael Coffman MD, PhD Specimen: Neck, Left Performed By: #### C YTONON ####[facility] LABCLIA [id number] [place] [address] [place] CLINICAL HISTORY Left neck mass, consistent with lipoma versus low-grade liposarcoma on CT [facility] Comment on above: Order Comment: Speci men Type: SPECIMEN OBTAINED BY ASPIRATIONOrdering Facility: [facility] Address: [address] [place] [address] Performed By: #### C YTONON ####[facility] LABCLIA [id number] [place] [address] [place] DIAGNOSIS COMMENT Cytology from FNA is not reliable in classifying soft tissue tumors, especially adipose tissue neoplasm. Recommend tissue core biopsy (not repeating FNA) with immunohistochemical and molecular characterization , if lipoma or well-differentiated liposarcoma is concerned clinically. Normal [facility] Comment on above: Order Comment: Speci men Type: SPECIMEN OBTAINED BY ASPIRATIONOrdering Facility: [facility] Address: [address] [place] [address] Performed By: #### C YTONON ####[facility] LABCLIA [id number] [place] [address] [place] FINAL DIAGNOSIS Normal [facility] Comment on above: Order Comment: Speci men Type: SPECIMEN OBTAINED BY ASPIRATIONOrdering Facility: [facility] Address: [address] [place] [address] Result Comment: A - Neck, Left, FNA. Fibroadipose tissue with focal atypia (see comment) at 0957 EST Performed By: #### C YTONON ####[facility] LABCLIA [id number] [address] OF [facility] FINAL PERFORMING LAB Normal [facility] Comment on above: Order Comment: Speci men Type: SPECIMEN OBTAINED BY ASPIRATIONOrdering Facility: [facility] Address: [address] [place] [address] Result Comment: Tech nical component, planning technician screening performed at [facility], [address] [place] [address] CLIA# [id number] Diagnostic interpretation performed at [facility], [address] [place] [address] CLIA# [id number] Plumbing Warehouse Helper: Jerome Howe M.D. Performed By: #### C YTONON ####[facility] LABCLIA [id number] [address] GROSS DESCRIPTION A. Neck, Left Normal [facility] Comment on above: Order Comment: Speci men Type: SPECIMEN OBTAINED BY ASPIRATIONOrdering Facility: [facility] Address: [address] [place] [address] Result Comment: 30 c c clear colorless CytoLyt with particles. ThinPrep prepared and 4 smears. Performed By: #### C YTONON ####[facility] LABCLIA [id number] [address] OF [facility] LABORATORYOrdered By: SYSTEM SYSTEM on 11-09-2024 Basophils (Bld) [#/Vol] 0.1 103/mcL Normal 0.0 - 0.2 10^3/mcL AO Workflow SS Basophils/100 WBC (Bld) 0.7 % Normal 0.0 - 2.5 % AO Workflow SS Calcium [Mass/Vol] 8.8 mg/dL Normal 8.4 - 10. 2 mg/dL AO ADM SS Chloride [Moles/Vol] 102 mmol/L Normal 98 - 10 7 mmol/L AO ADM SS CO2 [Moles/Vol] 32 mmol/L High 23 - 31 mmol/L AO ADM SS Creatinine [Mass/Vol] 1.42 mg/dL High 0.70 - 1.30 mg/dL AO ADM SS Comment on above: Interpretive Data: T esting performed on Tutor Dimension EXL analyzer using a modified kinetic Vineet technique. Electrolyte Balance 3.0 mEq/L Low 4.0 - 15 .0 mEq/L AO ADM SS Eosinophil, Absolute 0.4 103/mcL Normal 0.0 - 0 .7 10^3/mcL AO Workflow SS Eosinophils/100 WBC (Bld) 4.3 % Normal 0.0 - 7.0 % AO Workflow SS Erythrocyte distribution width (RBC) [Ratio] 13.4 % Normal 11.5 - 15.5 % AO Workflow SS Estimated Glomerular Filtration Rate 56 ml/min/1.73sqm Invalid Interpretation Code AO Chemistry S Comment on above: Interpretive Data: Stages of Chronic Kidney Disease (CKD) Stage Description eGFR(ml/min/1.73 sq.m.) CKD 1 Normal kidney function or >=90 normal kindney function with possible kidney damage (ex. Proteinuria) CKD 2 Kidney damage with mild loss 60-89 of kidney function CKD 3a Mild to moderate loss of kidney 45-59 function CKD 3b Moderate to severe loss of 30-44 of kindey function CKD 4 Severe loss of kidney function 15-29 CKD 5 Kidney failure <15 Note: (go live 2024) the eGFR calculation was updated to the 2020 CKD-EPI creatinine equation without a race factor to calculate the eGFR results. Glucose [Mass/Vol] 141 mg/dL High 80 - 115 mg/dL AO ADM SS Hematocrit (Bld) [Volume fraction] 53.0 % High 40.0 - 52.0 % AO Workflow SS Hemoglobin (Bld) [Mass/Vol] 17.6 G/dL High 13.0 - 17.5 G/dL AO Workflow SS Lymphocytes (Bld) [#/Vol] 3.2 103/mcL Normal 0.9 - 4.3 10^3/mcL AO Workflow SS Lymphocytes/100 WBC (Bld) 30.5 % Normal 20.0 - 40.0 % AO Workflow SS MCH (RBC) [Entitic mass] 30.5 pg Normal 27.0 - 33.0 pg AO Workflow SS MCHC 33.2 G/dL Normal 32.0 - 36.0 G/dL AO Workflow SS MCV (RBC) [Entitic vol] 91.8 fL Normal 81.0 - 100.0 fL AO Workflow SS Monocyte distribution width Auto (Bld) [Entitic vol] 16.89 1 Normal 0.00 - 20.00 AO Workflow SS Comment on above: Result Comment: For ED adult patients suspected of sepsis, MDW<=20.0 does not rule out sepsis or risk of sepsis Monocytes (Bld) [#/Vol] 1.1 103/mcL Normal 0.1 - 1.4 10^3/mcL AO Workflow SS Monocytes/100 WBC (Bld) 10.7 % Normal 2.0 - 13.0 % AO Workflow SS Natriuretic peptide.B prohormone N-Terminal [Mass/Vol] 3972 pg/mL High 0 - 125 pg/mL AO ADM SS Comment on above: Interpretive Data: N T-proBNP results of less than 300 pg/mL effectively rules out acute congestive heart failure with 99% negative predictive value. Neutrophils (Bld) [#/Vol] 5.6 103/mcL Normal 2.3 - 8.1 10^3/mcL AO Workflow SS Neutrophils/100 WBC (Bld) 53.8 % Normal 50.0 - 75.0 % AO Workflow SS Platelet mean volume (Bld) [Entitic vol] 8.4 fL Normal 6.4 - 10.5 fL AO Workflow SS Platelets (Bld) [#/Vol] 218 103/mcL Normal 150 - 450 10^3/mcL AO Workflow SS Potassium [Moles/Vol] 4.2 mmol/L Normal 3.5 - 5.1 mmol/L AO ADM SS RBC (Bld) [#/Vol] 5.77 106/mcL Normal 4.50 - 6.0 0 10^6/mcL AO Workflow SS Sodium [Moles/Vol] 137 mmol/L Normal 136 - 145 mmol/L AO ADM SS Troponin I.cardiac DL <= 0.01 ng/mL [Mass/Vol] 44 ng/L Normal 0 - 76 ng/L AO ADM SS Comment on above: Interpretive Data: H igh Sensitive Troponin I Reference Ranges: Female: 0-51 ng/L Male: 0-76 ng/L Testing performed on Dimension EXL using a homogeneous sandwich chemiluminescent immunoassay based on Familonet technology. Urea nitrogen [Mass/Vol] 14 mg/dL Normal 7 - 18 mg/dL AO ADM SS Urea nitrogen/Creatinine [Mass ratio] 10 ratio Normal 7 - 27 ratio AO ADM SS WBC (Bld) [#/Vol] 10.4 103/mcL Normal 4.5 - 10.8 10^3/mcL AO Workflow SS PBNPon 11-09-2024 Natriuretic peptide B (Bld) [Mass/Vol] 3972 pg/mL High 0-125 [facility] Comment on above: Result Comment: NT-p roBNP results of less than 300 pg/mL effectively rules out acute congestive heart failure with 99% negative predictive value. Performed By: #### G FR, CBC, ADIFF, ANEU, MDW, TROPHS, BMP, PBNP #### [address] [place], [place] [address] [facility] 11-09-2024 High Sensitivity Troponin I 44 ng/L Normal 0-76 [facility] Comment on above: Result Comment: High Sensitive Troponin I Reference Ranges: Female: 0-51 ng/L Male: 0-76 ng/L Testing performed on artaculous EXAttunity using a homogeneous sandwich chemiluminescent immunoassay based on Familonet technology. Performed By: #### G FR, CBC, ADIFF, ANEU, MDW, TROPHS, BMP, PBNP #### [address] [place], [place] [address] XR CHEST 1 VIEWon 11-09-2024 XR CHEST 1 VIEW ORIGINAL EXAMINATION: ONE XRAY VIEW OF THE CHEST11/09/2024 9:55 pm CHEST ONE VIEW AP/PA EXAM DESCRIPTION: COMPARISON: Chest, March 29, 2024 HISTORY: ORDERING SYSTEM PROVIDED HISTORY: Reason for Exam: sob FINDINGS: Single AP radiograph of the chest was obtained. The lungs are clear without evidence of focal consolidation, mass, pleural effusion, or pneumothorax. The cardiomediastinal silhouette is enlarged. The bones and soft tissues are unremarkable. IMPRESSION: Cardiomegaly without acute consolidation. Interpreted by: Natali Carlton MD Preliminary Report By: Natali Carlton MD Electronically signed By Natali Carlton MD Dictated Date: 11/09/2024 10:01:20 PM Prelim Date: 11/09/2024 10:01:46 PM Sign Date: 11/09/2024 10:01:46 PM Ordering Provider[facility] ([facility] VENKAT MARSH ([id number]) 1965 M Date Time Provider Department 11/07/24 2:15 PM INDER BRUCE [facility] During your visit today, we recorded the following information about you: Pulse Respiration Blood pressure Weight 88/minute 20/minute 141/84 133.8 kg Height 1.702 m Inder Bruce MD 11/07/2024 4:53 PM Signed Venkat Marsh is a 59 year old male who is here for follow-up after his recent CT scan of the neck. He is doing well. CT scan showed a large irregular fat-containing mass deep to the left sternocleidomastoid muscle measuring up to 6 cm in size. Multiple internal septations and mildly nodular mural components. He also has a multinodular goiter. Findings reviewed with him in detail. ALLERGIES Allergen Reactions Amoxicillin-Pot Cla* Anaphylaxis, Swelling Lisinopril Cough Sulfamethoxazole-Tr* Rash, Hives, Swelling Current Outpatient Medications Medication Sig dulaglutide (TRULICITY) 1.5 mg/0.5 mL pen injector Inject 1.5 mg subcutaneously one time a week. Monitor bs closely and keep food log metFORMIN (GLUCOPHAGE) 1,000 mg tablet Take 1 tablet by mouth two times a day. levothyroxine (SYNTHROID) 125 mcg tablet Take 1 tablet by mouth daily before breakfast. sacubitril-valsartan (ENTRESTO) 24-26 mg tablet Take 1 tablet by mouth two times a day. spironolactone (ALDACTONE) 25 mg tablet Take 1 tablet by mouth once daily. nystatin (MYCOSTATIN) 100,000 unit/mL suspension Take 1 mL by mouth four times daily. Swish and swallow. 5 ml 4times daily albuterol HFA (PROVENTIL HFA, VENTOLIN HFA) 90 mcg/actuation inhaler Inhale 2 Puffs as instructed every 4 hours as needed for wheezing/shortness of breath. Insulin Syringe-Needle U-100 0.5 mL 31 gauge x 5/16 Inject 1 Each subcutaneously every 24 hours. Give with each insulin administration. empagliflozin (JARDIANCE) 10 mg tablet Take 1 tablet by mouth daily with breakfast. metoprolol succinate ER (TOPROL XL) 25 mg 24 hr tablet Take 1 tablet by mouth once daily. Insulin Whitman, Disposable, (PEN NEEDLE) 32 gauge x 5/32 Inject 1 Each subcutaneously every 24 hours. Give with each insulin administration. insulin glargine 100 unit/mL (3 mL) Inject 20 Units subcutaneously daily at bedtime. Inject 20 Units subcutaneously as directed mirtazapine (REMERON) 15 mg tablet Take 1 tablet by mouth daily at bedtime. traZODone (DESYREL) 100 mg tablet Take 1 tablet by mouth daily at bedtime. rosuvastatin (CRESTOR) 10 mg tablet Take 1 tablet by mouth daily at bedtime. magnesium, aluminum hydroxide (MYLANTA ORAL) Take 5 mL by mouth two times a day as needed (heartburn). No current facility-administered medications for this visit. PHYSICAL EXAM: BP 141/84 Pulse 88 Resp 20 Ht 5' 7 (1.70m) Wt 295 lb (133.8kg) BMI 46.19 kg/(m2). General Appearance: Well appearing, alert, in no acute distress, well-hydrated, well nourished. and Obese. Assessment: Neck mass (primary encounter diagnosis) Coronary artery disease involving [place] coronary artery of [place] heart without angina pectoris Plan: ASSESSMENT/PLAN: 1. Neck mass - ICD9: 784.2, ICD10: R22.1 (primary diagnosis) Given the size and location of the mass I did recommend he be evaluated by ENT. Referral made to ENT. - CONSULT TO ENT 2. Coronary artery disease involving [place] coronary artery of [place] heart without angina pectoris - ICD9: 414.01, ICD10: I25.10 I spent 15 minutes in the visit, with more than 50% of the total [id number] time of the visit in counseling / coordination of care. Inder Bruce M.D., F.A.C.S. Referring Provider: OSCAR BRIZUELA [[id number]] Allergies As of Date: 11/07/2024 Noted Allergy Reaction AMOXICILLIN-POT CLAVULANATE 12/23/2023 10 - Anaphylaxis 7 - Swelling LISINOPRIL 04/24/2023 3 - Cough SULFAMETHOXAZOLE-TRIM ETHOPRIM 10/20/2009 2 - Rash 4 - Hives 7 - Swelling Date Reviewed: 11/07/2024 Reviewed by: Fe Valdez MA - Fully Assessed Reason for Visit: Established Patient [175] Cmt: Follow up Neck CT Primary Visit Diagnosis:Neck mass [R22.1] Other Visit Diagnosis:Coronary artery disease involving [place] coronary artery of [place] heart without angina pectoris [I25.10] Order(s):CONSULT TO ENT [9008] Order #: [id number]: 1 FUTURE Prescriptions as of 11/07/2024 - dulaglutide (TRULICITY) 1.5 mg/0.5 mL pen injector Inject 1.5 mg subcutaneously one time a week. Monitor bs closely and keep food log - sacubitril-valsartan (ENTRESTO) 24-26 mg tablet Take 1 tablet by mouth two times a day. - spironolactone (ALDACTONE) 25 mg tablet Take 1 tablet by mouth once daily. - nystatin (MYCOSTATIN) 100,000 unit/mL suspension Take 1 mL by mouth four times daily. Swish and swallow. 5 ml 4times daily - albuterol HFA (PROVENTIL HFA, VENTOLIN HFA) 90 mcg/actuation inhaler Inhale 2 Puff (more content not included)... Normal [facility] CT NECK SOFT TISSUE W IVCONo n 11-01-2024 CT NECK SOFT TISSUE W IVCON * * *Final Report* * * DATE OF EXAM: Nov 01 2024 9:02AM [facility] 0013 - CT NECK SOFT TISSUE W IVCON / PROCEDURE REASON: Neck mass * * * * Physician Interpretation * * * * CT NECK SOFT TISSUE W IVCON History: Neck mass Technique: A series of contiguous helical scans were performed from the skull base to the aortic arch following injection of intravenous contrast. Contrast: Omnipaque 350. Contrast Dose: [address] Radiation dose: Integrated Dose-length product (DLP) for this visit = 1042 mGy*cm. CT Dose Reduction Employed: Automated exposure control(AEC) and iterative recon COMPARISON: Neck ultrasound 11/09/2023 RESULT: Postoperative Change: None apparent. Aerodigestive tract: Normal. Major salivary glands: Normal. Thyroid gland: Multinodular goiter involving the left greater than right thyroid lobes and thyroid isthmus with mass effect resulting in moderate narrowing of the trachea at the thoracic inlet which is deviated to the right. Lymph Nodes: No cervical lymphadenopathy by size criteria. Carotid/Parapharyngea l/Retropharyngeal Spaces: Patent extracranial carotid systems and internal jugular veins bilaterally. Large irregular fat-containing mass deep to the left sternocleidomastoid muscle measuring up to 6 cm in greatest axial dimension with multiple internal septations and mildly nodular mural components. The mass abuts the lateral margin of the left carotid sheath and is centered at the level of C2. Mild atherosclerotic plaque is present along the bilateral carotid artery bifurcations. Orbits, Face and Skull Base: Retention cyst is present in the left maxillary sinus. Scattered mucosal thickening is present in the bilateral ethmoid sinuses and sphenoid sinuses. Imaged intracranial contents: No intracranial mass effect or hydrocephalus. No abnormal intracranial enhancement. Cervical spine and remaining osseous structures: Multilevel degenerative changes are present throughout the cervical spine with canal stenosis most pronounced and likely moderate at C3-C4, C5-C6, and C6-C7. No aggressive/destructiv e osseous lesions are identified. Lung apices: No evidence of mass lesion or infection. IMPRESSION: Large irregular fat-containing mass deep to the left sternocleidomastoid muscle measuring up to 6 cm in greatest axial dimension with multiple internal septations and mildly nodular mural components, raising the possibility of an atypical lipoma/low-grade liposarcoma. Recommend surgical evaluation. Multinodular goiter involving the left greater than right thyroid lobes and thyroid isthmus with mass effect resulting in moderate narrowing of the trachea at the thoracic inlet which is deviated to the right. Recommend surgical evaluation. Tearoom Host/Hostess: NESTOR Transcribe Date/Time: Nov 01 2024 9:18A Dictated by : GENESIS KOROMA MD This examination was interpreted and the report reviewed and electronically signed by: GENESIS KOROMA MD on Nov 01 2024 9:24AM EST [id number] Normal [facility] CT Neck W contrast Yomi 10-22 IMPRESSION: Large irregular fat-containing mass deep to the left sternocleidomastoid muscle measuring up to 6 cm in greatest axial dimension with multiple internal septations and mildly nodular mural components, raising the possibility of an atypical lipoma/low-grade liposarcoma. Recommend surgical evaluation. Multinodular goiter involving the left greater than right thyroid lobes and thyroid isthmus with mass effect resulting in moderate narrowing of the trachea at the thoracic inlet which is deviated to the right. Recommend surgical evaluation. Tearoom Host/Hostess: [facility] Transcribe Date/Time: Nov 01 2024 9:18A Dictated by : GENESIS KOROMA MD This examination was interpreted and the report reviewed and electronically signed by: GENESIS KOROMA MD on Nov 01 2024 9:24AM EST DIVISION OF RADIOLOGY * * *Final Report* * * DATE OF EXAM: Nov 01 2024 9:02AM [facility] 0013 - CT NECK SOFT TISSUE W IVCON / PROCEDURE REASON: Neck mass * * * * Physician Interpretation * * * * CT NECK SOFT TISSUE W IVCON History: Neck mass Technique: A series of contiguous helical scans were performed from the skull base to the aortic arch following injection of intravenous contrast. Contrast: Omnipaque 350. Contrast Dose: [address] Radiation dose: Integrated Dose-length product (DLP) for this visit = 1042 mGy*cm. CT Dose Reduction Employed: Automated exposure control(AEC) and iterative recon COMPARISON: Neck ultrasound 11/09/2023 RESULT: Postoperative Change: None apparent. Aerodigestive tract: Normal. Major salivary glands: Normal. Thyroid gland: Multinodular goiter involving the left greater than right thyroid lobes and thyroid isthmus with mass effect resulting in moderate narrowing of the trachea at the thoracic inlet which is deviated to the right. Lymph Nodes: No cervical lymphadenopathy by size criteria. Carotid/Parapharyngea l/Retropharyngeal Spaces: Patent extracranial carotid systems and internal jugular veins bilaterally. Large irregular fat-containing mass deep to the left sternocleidomastoid muscle measuring up to 6 cm in greatest axial dimension with multiple internal septations and mildly nodular mural components. The mass abuts the lateral margin of the left carotid sheath and is centered at the level of C2. Mild atherosclerotic plaque is present along the bilateral carotid artery bifurcations. Orbits, Face and Skull Base: Retention cyst is present in the left maxillary sinus. Scattered mucosal thickening is present in the bilateral ethmoid sinuses and sphenoid sinuses. Imaged intracranial contents: No intracranial mass effect or hydrocephalus. No abnormal intracranial enhancement. Cervical spine and remaining osseous structures: Multilevel degenerative changes are present throughout the cervical spine with canal stenosis most pronounced and likely moderate at C3-C4, C5-C6, and C6-C7. No aggressive/destructiv e osseous lesions are identified. Lung apices: No evidence of mass lesion or infection. DIVISION OF RADIOLOGY Provider, [facility] - 11/01/2024 * * *Final Report* * * DATE OF EXAM: Nov 01 2024 9:02AM [facility] 0013 - CT NECK SOFT TISSUE W IVCON / PROCEDURE REASON: Neck mass * * * * Physician Interpretation * * * * CT NECK SOFT TISSUE W IVCON History: Neck mass Technique: A series of contiguous helical scans were performed from the skull base to the aortic arch following injection of intravenous contrast. Contrast: Omnipaque 350. Contrast Dose: [address] Radiation dose: Integrated Dose-length product (DLP) for this visit = 1042 mGy*cm. CT Dose Reduction Employed: Automated exposure control(AEC) and iterative recon COMPARISON: Neck ultrasound 11/09/2023 RESULT: Postoperative Change: None apparent. Aerodigestive tract: Normal. Major salivary glands: Normal. Thyroid gland: Multinodular goiter involving the left greater than right thyroid lobes and thyroid isthmus with mass effect resulting in moderate narrowing of the trachea at the thoracic inlet which is deviated to the right. Lymph Nodes: No cervical lymphadenopathy by size criteria. Carotid/Parapharyngea l/Retropharyngeal Spaces: Patent extracranial carotid systems and internal jugular veins bilaterally. Large irregular fat-containing mass deep to the left sternocleidomastoid muscle measuring up to 6 cm in greatest axial dimension with multiple internal septations and mildly nodular mural components. The mass abuts the lateral margin of the left carotid sheath and is centered at the level of C2. Mild atherosclerotic plaque is present along the bilateral carotid artery bifurcations. Orbits, Face and Skull Base: Retention cyst is present in the left maxillary sinus. Scattered mucosal thickening is present in the bilateral ethmoid sinuses and sphenoid sinuses. Imaged intracranial contents: No intracranial mass effect or hydrocephalus. No abnormal intracranial enhancement. Cervical spine and remaining osseous structures: Multilevel degenerative changes are present throughout the cervical spine with canal stenosis most pronounced and likely moderate at C3-C4, C5-C6, and C6-C7. No aggressive/destructiv e osseous lesions are identified. Lung apices: No evidence of mass lesion or infection. IMPRESSION IMPRESSION: Large irregular fat-containing mass deep to the left sternocleidomastoid muscle measuring up to 6 cm in greatest axial dimension with multiple internal septations and mildly nodular mural components, raising the possibility of an atypical lipoma/low-grade liposarcoma. Recommend surgical evaluation. Multinodular goiter involving the left greater than right thyroid lobes and thyroid isthmus with mass effect resulting in moderate narrowing of the trachea at the thoracic inlet which is deviated to the right. Recommend surgical evaluation. Tearoom Host[facility]Hostess: [facility] Transcribe Date/Time: Nov 01 2024 9:18A Dictated by : GENESIS KOROMA MD This examination was interpreted and the report reviewed and electronically signed by: GENESIS KOROMA MD on Nov 01 2024 9:24AM EST [facility] Radiology Study observation (narrative) [place] [facility] CT Neck W contrast IVOrdered By: Ccf Provider on 11-01-2024 [facility] Comprehensive metabolic 2000 panelOrdered By: Jocelyn Roberson on 11-01-2024 Albumin [Mass/Vol] 4 g/dL 3.9 - 4.9 g/dL [facility] ALP [Catalytic activity/Vol] 65 U/L 38 - 113 U/L [facility] ALT [Catalytic activity/Vol] 31 U/L 10 - 54 U/L [facility] Anion gap [Moles/Vol] 11 mmol/L 8 - 15 mmol/L [facility] AST [Catalytic activity/Vol] 18 U/L 14 - 40 U/L [facility] Bilirubin [Mass/Vol] 0.3 mg/dL 0.2 - 1 .3 mg/dL [facility] Calcium [Mass/Vol] 9.1 mg/dL 8.5 - 10. 2 mg/dL [facility] Chloride [Moles/Vol] 101 mmol/L 98 - 10 7 mmol/L [facility] CO2 [Moles/Vol] 29 mmol/L 22 - 30 mmol/L [facility] Creatinine [Mass/Vol] 1.32 mg/dL High 0.73 - 1.22 mg/dL [facility] GFR/1.73 sq M.predicted among non-blacks MDRD (S/P/Bld) [Vol rate/Area] 61 mL/min/{1.73_m2} - PINF [facility] Comment on above: Estimated Glomerular Filtration Rate (eGFR) is calculated using the 2020 CKD-EPI creatinine equation. This equation utilizes serum creatinine, sex, and age as parameters. The creatinine assay has traceable calibration to isotope dilution-mass spectrometry. Refer to KDIGO guidelines for clinical interpretation. In patients with unstable renal function, e.g. those with acute kidney injury, the eGFR may not accurately reflect actual GFR. Glucose [Mass/Vol] 178 mg/dL High 74 - 99 mg/dL [facility] Comment on above: The [place] Diab[employer] [place] Association (ADA) provides guidance for cutoff values for fasting glucose and random glucose. The ADA defines fasting as no caloric intake for at least 8 hours. Fasting plasma glucose results between 100 to 125 mg/dL indicate increased risk for diabetes (prediabetes). Fasting plasma glucose results greater than or equal to 126 mg/dL meet the criteria for diagnosis of diabetes. In the absence of unequivocal hyperglycemia, results should be confirmed by repeat testing. In a patient with classic symptoms of hyperglycemia or hyperglycemic crisis, random plasma glucose results greater than or equal to 200 mg/dL meet the criteria for diagnosis of diabetes. Reference: Standards of Medical Care in Diabetes 2016, [place] Diabetes Association. Diabetes Care. 2016.39(Suppl 1). Interpretation and review of laboratory results Abnormal [facility] Potassium [Moles/Vol] 3.8 mmol/L 3.7 - 5.1 mmol/L [facility] Protein [Mass/Vol] 7.1 g/dL 6.3 - 8.0 g/dL [facility] Sodium [Moles/Vol] 141 mmol/L 136 - 144 mmol/L [facility] Urea nitrogen [Mass/Vol] 12 mg/dL 9 - 24 mg/dL [facility] Comprehensive metabolic 2000 panelon 11-01-2024 Albumin [Mass/Vol] 4.0 g/dL Normal 3.9-4.9 [facility] Comment on above: Order Comment: Speci men Type: BLOOD SPECIMEN Ordering Facility: [facility] Address: [address] [place] [address] Performed By: #### 5 5454-3 #### [facility] CLIA [id number] [address] [place] [address] [place] ALP [Catalytic activity/Vol] 65 U/L Normal 38-113 [facility] Comment on above: Order Comment: Speci men Type: BLOOD SPECIMEN Ordering Facility: [facility] Address: [address] [place] [address] Performed By: #### 5 5454-3 #### [facility] CLIA [id number] [address] [place] [address] [place] ALT [Catalytic activity/Vol] 31 U/L Normal 10-54 [facility] Comment on above: Order Comment: Speci men Type: BLOOD SPECIMEN Ordering Facility: [facility] Address: [address] [place] [address] Performed By: #### 5 5454-3 #### [facility] CLIA [id number] [address] [place] [address] [place] Anion gap [Moles/Vol] 11 mmol/L Normal 8-15 [facility] Comment on above: Order Comment: Speci men Type: BLOOD SPECIMEN Ordering Facility: [facility] Address: [address] [place] [address] Performed By: #### 5 5454-3 #### [facility] CLIA [id number] [address] [place] [address] [place] AST [Catalytic activity/Vol] 18 U/L Normal 14-40 [facility] Comment on above: Order Comment: Speci men Type: BLOOD SPECIMEN Ordering Facility: [facility] Address: [address] [place] [address] Performed By: #### 5 5454-3 #### [facility] CLIA [id number] [address] [place] [address] [place] Bilirubin [Mass/Vol] 0.3 mg/dL Normal 0.2-1.3 [facility] Comment on above: Order Comment: Speci men Type: BLOOD SPECIMEN Ordering Facility: [facility] Address: [address] [place] [address] Performed By: #### 5 5454-3 #### [facility] CLIA [id number] [address] [place] [address] [place] Calcium [Mass/Vol] 9.1 mg/dL Normal 8.5-10.2 [facility] Comment on above: Order Comment: Speci men Type: BLOOD SPECIMEN Ordering Facility: [facility] Address: [address] [place] [address] Performed By: #### 5 5454-3 #### [facility] CLIA [id number] [address] [place] [address] [place] Chloride [Moles/Vol] 101 mmol/L Normal 98-107 [facility] Comment on above: Order Comment: Speci men Type: BLOOD SPECIMEN Ordering Facility: [facility] Address: [address] [place] [address] Performed By: #### 5 5454-3 #### [facility] CLIA [id number] [address] [place] [address] [place] CO2 [Moles/Vol] 29 mmol/L Normal 22-30 [facility] Comment on above: Order Comment: Speci men Type: BLOOD SPECIMEN Ordering Facility: [facility] Address: [address] [place] [address] Performed By: #### 5 5454-3 #### [facility] CLIA [id number] [address] [place] [address] [place] Creatinine [Mass/Vol] 1.32 mg/dL High 0.73-1.22 [facility] Comment on above: Order Comment: Jazmin jolley Type: BLOOD SPECIMEN Ordering Facility: [facility] Address: [address] [place] [address] Performed By: #### 5 5454-3 #### [facility] CLIA [id number] [address] [place] [address] [place] Creatinine and Glomerular filtration rate.predicted panel (S/P/Bld) 61 mL/min/1.73m??? Normal >=60 [facility] Comment on above: Order Comment: Jazmin jolley Type: BLOOD SPECIMEN Ordering Facility: [facility] Address: [address] [place] [address] Result Comment: Eli mated Glomerular Filtration Rate (eGFR) is calculated using the 2020 CKD-EPI creatinine equation. This equation utilizes serum creatinine, sex, and age as parameters. The creatinine assay has traceable calibration to isotope dilution-mass spectrometry. Refer to KDIGO guidelines for clinical interpretation. In patients with unstable renal function, e.g. those with acute kidney injury, the eGFR may not accurately reflect actual GFR. Performed By: #### 5 5454-3 #### [facility] CLIA [id number] [address] [place] [address] [place] Glucose [Mass/Vol] 178 mg/dL High 74-99 [facility] Comment on above: Order Comment: Jazmin jolley Type: BLOOD SPECIMEN Ordering Facility: [facility] Address: [address] [place] [address] Result Comment: The [place] Diabetes Association (ADA) provides guidance for cutoff values for fasting glucose and random glucose. The ADA defines fasting as no caloric intake for at least 8 hours. Fasting plasma glucose results between 100 to 125 mg/dL indicate increased risk for diabetes (prediabetes). Fasting plasma glucose results greater than or equal to 126 mg/dL meet the criteria for diagnosis of diabetes. In the absence of unequivocal hyperglycemia, results should be confirmed by repeat testing. In a patient with classic symptoms of hyperglycemia or hyperglycemic crisis, random plasma glucose results greater than or equal to 200 mg/dL meet the criteria for diagnosis of diabetes. Reference: Standards of Medical Care in Diabetes 2016, [place] Diabetes Association. Diabetes Care. 2016.39(Suppl 1). Performed By: #### 5 5454-3 #### [facility] CLIA [id number] [address] [place] [address] [place] Potassium [Moles/Vol] 3.8 mmol/L Normal 3.7-5.1 [facility] Comment on above: Order Comment: Speci men Type: BLOOD SPECIMEN Ordering Facility: [facility] Address: [address] [place] [address] Performed By: #### 5 5454-3 #### [facility] CLIA [id number] [address] [place] [address] [place] Protein [Mass/Vol] 7.1 g/dL Normal 6.3-8.0 [facility] Comment on above: Order Comment: Speci men Type: BLOOD SPECIMEN Ordering Facility: [facility] Address: [address] [place] [address] Performed By: #### 5 5454-3 #### [facility] CLIA [id number] [address] [place] [address] [place] Sodium [Moles/Vol] 141 mmol/L Normal 136-144 [facility] Comment on above: Order Comment: Speci men Type: BLOOD SPECIMEN Ordering Facility: [facility] Address: [address] [place] [address] Performed By: #### 5 5454-3 #### [facility] CLIA [id number] [address] [place] [address] [place] Urea nitrogen [Mass/Vol] 12 mg/dL Normal 9-24 [facility] Comment on above: Order Comment: Speci men Type: BLOOD SPECIMEN Ordering Facility: [facility] Address: [address] [place] [address] Performed By: #### 5 5454-3 #### [facility] CLIA [id number] [address] [place] [address] [place] HbA1c (Bld)on 11-01-2024 Average glucose Estimated from glycated hemoglobin (Bld) [Mass/Vol] 180 mg/dL [facility] Comment on above: eAG: (Estimated aver age glucose) is a calculated value from HgbA1c and is sales representative trainee of the average blood glucose level in the last 2-3 month period. HbA1c (Bld) [Mass fraction] 7.9 % High 4.3 - 5.6 % [facility] Comment on above: [place] Diabetes As sociation guidelines indicate that patients with HgbA1c in the range 5.7-6.4% are at increased risk for development of diabetes, and intervention by lifestyle modification may be beneficial. HgbA1c greater or equal to 6.5% is considered diagnostic of diabetes. Interpretation and review of laboratory results Abnormal [facility] Average glucose Estimated from glycated hemoglobin (Bld) [Mass/Vol] 180 mg/dL Normal [facility] Comment on above: Order Comment: Jazmin jolley Type: BLOOD SPECIMEN Ordering Facility: [facility] Address: [address] [place] [address] Result Comment: eAG: (Estimated average glucose) is a calculated value from HgbA1c and is sales representative trainee of the average blood glucose level in the last 2-3 month period. Performed By: #### 5 5454-3 #### [facility] CLIA [id number] [address] [place] [address] [place] HbA1c (Bld) [Mass fraction] 7.9 % High 4.3-5.6 [facility] Comment on above: Order Comment: Jazmin jolley Type: BLOOD SPECIMEN Ordering Facility: [facility] Address: [address] [place] [address] Result Comment: [place] Diabetes Association guidelines indicate that patients with HgbA1c in the range 5.7-6.4% are at increased risk for development of diabetes, and intervention by lifestyle modification may be beneficial. HgbA1c greater or equal to 6.5% is considered diagnostic of diabetes. Performed By: #### 5 5454-3 #### [facility] CLIA [id number] [address] [place] [address] [place] Urinalysis complete panel (U )on 11-01-2024 Bacteria LM.HPF (Urine sed) [#/Area] Negative Negative /HPF [facility] Bilirubin Ql (U) Negative Negative [facility] Clarity (Unsp spec) Clear Clear [facility] Color (U) Yellow Yellow [facility] Epithelial cells LM.HPF (Urine sed) [#/Area] None Seen /HPF [facility] Glucose Test strip (U) [Mass/Vol] Negative Negative [facility] Hemoglobin Ql (U) Negative Negative [facility] Hyaline casts (Urine sed) [#/Area] 4-10 /LPF Abnormal 0 /LPF [facility] Interpretation and review of laboratory results Abnormal [facility] Ketones Ql (U) Negative Negative [facility] Leukocyte esterase Test strip Ql (U) Negative Negative [facility] Nitrite Ql (U) Negative Negative [facility] pH (U) 7 [pH] NINF - 8.5 [facility] Protein (U) [Mass/Vol] 3+ Abnormal Negative [facility] RBC LM.HPF (Urine sed) [#/Area] 0-2 /HPF 0-2 /HPF [facility] Specific gravity (U) [Rel density] 1.021 1.005 - 1.030 [facility] Urobilinogen Ql (U) 0.2 EU/dL 0.2-1.0 EU/dL [facility] WBC LM.HPF (Urine sed) [#/Area] 0-5 /HPF 0-5 /HPF [facility] This test was developed and its performance characteristics determined by [facility] Pathology and Laboratory Medicine [employer] ([facility]). It has not been cleared or approved by the FDA. -[facility] is regulated under CLIA as qualified to perform high-complexity testing. This test is used for clinical purposes. It should not be regarded as investigational or for research. [facility] Bacteria LM.HPF (Urine sed) [#/Area] Negative Normal Negative [facility] Comment on above: Order Comment: Speci men Type: BLOOD SPECIMEN Ordering Facility: [facility] Address: [address] [place] [address] Performed By: #### 5 5454-3 #### [facility] CLIA [id number] [address] [place] [address] [place] Bilirubin Ql (U) Negative Normal Negative [facility] Comment on above: Order Comment: Speci men Type: BLOOD SPECIMEN Ordering Facility: [facility] Address: [address] [place] [address] Performed By: #### 5 5454-3 #### [facility] CLIA [id number] [address] [place] [address] [place] Clarity (Unsp spec) Clear Normal Clear [facility] Comment on above: Order Comment: Speci men Type: BLOOD SPECIMEN Ordering Facility: [facility] Address: [address] [place] [address] Performed By: #### 5 5454-3 #### [facility] CLIA [id number] [address] [place] [address] [place] Color (U) Yellow Normal Yellow [facility] Comment on above: Order Comment: Speci men Type: BLOOD SPECIMEN Ordering Facility: [facility] Address: [address] [place] [address] Performed By: #### 5 5454-3 #### [facility] CLIA [id number] [address] [place] [address] [place] Epithelial cells LM.HPF (Urine sed) [#/Area] None Seen Normal [facility] Comment on above: Order Comment: Speci men Type: BLOOD SPECIMEN Ordering Facility: [facility] Address: [address] [place] [address] Performed By: #### 5 5454-3 #### [facility] CLIA [id number] [address] [place] [address] [place] Glucose Test strip (U) [Mass/Vol] Negative Normal Negative [facility] Comment on above: Order Comment: Speci men Type: BLOOD SPECIMEN Ordering Facility: [facility] Address: [address] [place] [address] Performed By: #### 5 5454-3 #### [facility] CLIA [id number] [address] [place] [address] [place] Hemoglobin Ql (U) Negative Normal Negative [facility] Comment on above: Order Comment: Speci men Type: BLOOD SPECIMEN Ordering Facility: [facility] Address: [address] [place] [address] Performed By: #### 5 5454-3 #### [facility] CLIA [id number] [address] [place] [address] [place] Hyaline casts (Urine sed) [#/Area] 4-10 /LPF Abnormal 0 /LPF [facility] Comment on above: Order Comment: Speci men Type: BLOOD SPECIMEN Ordering Facility: [facility] Address: [address] [place] [address] Performed By: #### 5 5454-3 #### [facility] CLIA [id number] [address] [place] [address] [place] Ketones Ql (U) Negative Normal Negative [facility] Comment on above: Order Comment: Speci men Type: BLOOD SPECIMEN Ordering Facility: [facility] Address: [address] [place] [address] Performed By: #### 5 5454-3 #### [facility] CLIA [id number] [address] [place] [address] [place] Leukocyte esterase Test strip Ql (U) Negative Normal Negative [facility] Comment on above: Order Comment: Speci men Type: BLOOD SPECIMEN Ordering Facility: [facility] Address: [address] [place] [address] Performed By: #### 5 5454-3 #### [facility] CLIA [id number] [address] [place] [address] [place] Nitrite Ql (U) Negative Normal Negative [facility] Comment on above: Order Comment: Speci men Type: BLOOD SPECIMEN Ordering Facility: [facility] Address: [address] [place] [address] Performed By: #### 5 5454-3 #### [facility] CLIA [id number] [address] [place] [address] [place] pH (U) 7.0 [pH] Normal <8.5 [facility] Comment on above: Order Comment: Speci men Type: BLOOD SPECIMEN Ordering Facility: [facility] Address: [address] [place] [address] Performed By: #### 5 5454-3 #### [facility] CLIA [id number] [address] [place] [address] [place] Protein (U) [Mass/Vol] 3+ Abnormal Negative [facility] Comment on above: Order Comment: Speci men Type: BLOOD SPECIMEN Ordering Facility: [facility] Address: [address] [place] [address] Performed By: #### 5 5454-3 #### [facility] CLIA [id number] [address] [place] [address] [place] RBC LM.HPF (Urine sed) [#/Area] 0-2 /HPF Normal 0-2 /HPF [facility] Comment on above: Order Comment: Speci men Type: BLOOD SPECIMEN Ordering Facility: [facility] Address: [address] [place] [address] Performed By: #### 5 5454-3 #### [facility] CLIA [id number] [address] [place] [address] [place] Specific gravity (U) [Rel density] 1.021 Normal 1.005-1.030 [facility] Comment on above: Order Comment: Speci men Type: BLOOD SPECIMEN Ordering Facility: [facility] Address: [address] [place] [address] Performed By: #### 5 5454-3 #### [facility] CLIA [id number] [address] [place] [address] [place] Urobilinogen Ql (U) 0.2 EU/dL Normal 0.2-1.0 EU/dL Cl [facility] Comment on above: Order Comment: Speci men Type: BLOOD SPECIMEN Ordering Facility: [facility] Address: [address] [place] [address] Performed By: #### 5 5454-3 #### [facility] CLIA [id number] [address] [place] [address] [place] WBC LM.HPF (Urine sed) [#/Area] 0-5 /HPF Normal 0-5 /HPF [facility] Comment on above: Order Comment: Speci men Type: BLOOD SPECIMEN Ordering Facility: [facility] Address: [address] [place] [address] Performed By: #### 5 5454-3 #### [facility] CLIA [id number] [address] [place] [address] [place] CNOVon 10-27-2024 CNOV Office Visit (FAMPWS ) VENKAT MARSH ([id number]) 1965 M Date Time Provider Department 10/27/24 1:40 PM OSCAR BRIZUELA FAMPWS During your visit today, we recorded the following information about you: Pulse Respiration Blood pressure Weight 90/minute 20/minute 152/108 131.6 kg Height 1.704 m Oscar Brizuela MD 11/02/2024 8:05 AM Signed Chief Complaint Patient presents with: Establish Care HPI Venkat Marsh is a 59 year old male who presents here today for Above Complaints. Previous PCP Dr. Chanel with last OV 10/18/24. [facility] but didn't like it there. Patient is a poor historian. Patient concerned because his blood pressure has been running high for at least 6 months. Patient is compliant with his metoprolol but has not been on his Entresto or Aldactone for CHF for several months. CAD s/p PCI to LAD in [address] Ponce and Dr. Carrington. Notes that he stopped taking his Crestor after about 1 week because he does not want to be on a cholesterol medication. Refusing new rx today. Patient falling asleep several times during our appointment. States that he feels tired all day and does fall asleep quickly sitting in chairs or after dinner. Does not fall asleep while driving. Is on both Remeron and Trazodone for bipolar disorder. Has documented history of ELBERT, but does not have a CPAP machine at home. Does not want order for PSG or referral. Patient refusing lung and colon cancer screening today. Will consider once his insurance gets updated. Patient states DM is controlled with fasting <120 and <150 before bed. Compliant with regimen. Due for A1c. Past medical history, appointments, medications, allergies reviewed. Previous Medical History PAST MEDICAL HISTORY Diagnosis Date Bipolar [address] disorder ([facility]) psychiatry in [place] CAD S/P percutaneous coronary angioplasty 2011 [place] PCI to LAD in 2011. Dr. Ponce CHF (congestive heart failure) ([facility]) Diabetes mellitus ([facility]) History of acute myocardial infarction HTN (hypertension) Hypercholesteremia Hypothyroidism Morbid obesity with BMI of 45.0-49.9, adult ([facility]) Non-compliant patient ELBERT (obstructive sleep apnea) Tobacco use disorder Previous Surgical History PAST SURGICAL HISTORY Procedure Laterality Date ANGIOPLASTY 2011 [facility] STENT, PCI to LAD COLONOSCOPY 2009 [facility] ARTHROSCOPY/SURGERY 2000 loose body removal lt HAND SURGERY HX Left 2022 [facility]NEE ARTHROSCOPY/SURGERY 1984 loose body removal lt OSTEOTOMY FIBULA Left 1980 PAST SURGICAL HISTORY OF 1988 Rt wrist bone graft PAST SURGICAL HISTORY OF R navicular REPAIR INGUINAL HERNIA 1986 REPAIR NASAL SEPTUM DEFECT 1996 THYROIDECTOMY SUBTOTAL/PARTIAL 2009 TONSILLECTOMY PRIMARY/SECONDARY Tonsillectomy Family History FAMILY HISTORY Problem Relation Age of Onset Cancer Mother uterine No Known Problems Brother other (depression) Maternal Grandmother Patient Allergies ALLERGIES Allergen Reactions Amoxicillin-Pot Cla* Anaphylaxis, Swelling Metformin Diarrhea Lisinopril Cough Sulfamethoxazole-Tr* Rash, Hives, Swelling Current Medications Current Outpatient Medications on File Prior to Visit Medication Sig spironolactone (ALDACTONE) 25 mg tablet Take 1 tablet by mouth once daily. nystatin (MYCOSTATIN) 100,000 unit/mL suspension Take 1 mL by mouth four times daily. Swish and swallow. 5 ml 4times daily albuterol HFA (PROVENTIL HFA, VENTOLIN HFA) 90 mcg/actuation inhaler Inhale 2 Puffs as instructed every 4 hours as needed for wheezing/shortness of breath. Insulin Syringe-Needle U-100 0.5 mL 31 gauge x 5/16 Inject 1 Each subcutaneously every 24 hours. Give with each insulin administration. empagliflozin (JARDIANCE) 10 mg tablet Take 1 tablet by mouth daily with breakfast. metFORMIN (GLUCOPHAGE) 1,000 mg tablet Take 1 tablet by mouth two times a day. levothyroxine (SYNTHROID) 125 mcg tablet Take 1 tablet by mouth daily before breakfast. metoprolol succinate ER (TOPROL XL) 25 mg 24 hr tablet Take 1 tablet by mouth once daily. Insulin Whitman, Disposable, (PEN NEEDLE) 32 gauge x 5/32 Inject 1 Each subcutaneously every 24 hours. Give with each insulin administration. dulaglutide (TRULICITY) 0.75 mg/0.5 mL pen injector Inject 0.75 mg subcutaneously one time a week. Monitor bs closely and keep food log insulin glargine 100 unit/mL (3 mL) Inject 20 Units subcutaneously daily at bedtime. Inject 20 Units subcutaneously as directed mirtazapine (REMERON) 15 mg tablet Take 1 tablet by mouth daily at bedtime. traZODone (DESYREL) 100 mg tablet Take 1 tablet by mouth daily at bedtime. rosuvastatin (CRESTOR) 10 mg tablet Take 1 tablet by mouth daily at bedtime. magnesium, aluminum hydroxide (MYLANTA ORAL) Take 5 mL by mouth two times a day as needed (heartburn). sacubitril-v (more content not included)... Normal [facility] CNCOon 10-18-2024 CNCO Letter Text [facility] CNOVon 10-18-2024 CNOV Office Visit (AGINTMAC) VENKAT MARSH ([id number]) 1965 M Date Time Provider Department 10/18/24 10:00 AM ORAL ABBASI During your visit today, we recorded the following information about you: Pulse Blood pressure Weight Height 81/minute 141/93 130.2 kg 1.702 m Oral Abbasi DO 10/18/2024 3:11 PM Signed [facility] Oral Abbasi DO ASSESSMENT/PLAN: 1. Hypertension, unspecified type - ICD9: 401.9, ICD10: I10 (primary diagnosis) - He is overall a poor historian with low health literacy. He could not recall what medication he is taking or what he had recently filled. His blood pressure is poorly controlled likely in the setting of medication non-compliance - Stop taking Goody Headache as this can also increase blood pressure - Continue current medications - Recommend home blood pressure monitoring, to bring results to next visit - Recommend regular aerobic exercise - Discussed need for and benefit of weight loss. BMI 44.95 kg/(m2) - Will have him follow up in one week for blood pressure check since we restarted his aldactone 2. Chronic HFrEF (heart failure with reduced ejection fraction) (HCC) - ICD9: 428.22, ICD10: I50.22 - HFrEF <=40 - Continue current medications - Referral to cardiology - Encouraged sodium restriction - Encouraged daily weights - SPIRONOLACTONE 25 MG TABLET - CONSULT TO CARDIOLOGY 3. Cough, unspecified type - ICD9: 786.2, ICD10: R05.9 - DME SUPPLY OR ACCESSORY, NOS [Incentive Spirometry] 4. Thrush (oral) - ICD9: 112.0, ICD10: B37.0 - [place]STATIN 100,000 UNIT/ML ORAL SUSPENSION Follow up in one week for blood pressure check as well as 2-3 weeks for follow up Oral Abbasi DO SUBJECTIVE: Venkat Marsh is a 59 year old male with past medical history of coronary artery disease s/p remote OK in 2011 with PCI to LAD,HFrEF (ECHO 03/2024 -17%) on Entresto 24-26, BB, aldactone, Jardiance, diabetes, hypertension, hyperlipidemia use rosuvastatin), hypothyroidism, bipolar disorder, obstructive sleep apnea not on CPAP. He is here to follow-up for an acute visit of high blood pressure. He tells me that he was recently switched over from metoprolol to tartrate to succinate 25 mg daily. At home his blood pressures run anywhere from 150s to 140s. Upon reviewing recent messages on his chart review with cardiology it appears that they have not been able to to refill his aldactone for the past month or so. He was also seen in the [place] clinic about 6- 8 weeks ago. He was prescribed antibiotics for which he could not recount the name of, he completed the course about 3- 4 weeks ago. He now has some cough with sputum production that is jackson. He took Mucinex which did not seem to help. He was also seen at General Surgery earlier today for neck mass which he will be following up with CT neck that is pending at this time. HPI PAST MEDICAL HISTORY Diagnosis Date Bipolar 1 disorder (HCC) CAD S/P percutaneous coronary angioplasty 2011 [place] Diabetes mellitus (HCC) History of acute myocardial infarction HTN (hypertension) Hypercholesteremia Hypothyroidism PAST SURGICAL HISTORY Procedure Laterality Date ANGIOPLASTY 2011 [facility] STENT COLONOSCOPY 2009 [facility] ARTHROSCOPY/SURGERY 2000 loose body removal lt HAND SURGERY HX Left 2022 KNEE ARTHROSCOPY/SURGERY 1985 loose body removal lt OSTEOTOMY FIBULA Left 1980 PAST SURGICAL HISTORY OF 1988 Rt wrist bone graft PAST SURGICAL HISTORY OF R navicular REPAIR INGUINAL HERNIA 1986 REPAIR NASAL SEPTUM DEFECT 1996 THYROIDECTOMY SUBTOTAL/PARTIAL 2009 TONSILLECTOMY PRIMARY/SECONDARY Tonsillectomy Social History Tobacco Use Smoking status: Every Day Current packs/day: 0.50 Average packs/day: 0.5 packs/day for 40.5 years (20.2 ttl pk-yrs) Types: Cigarettes Start date: 04/21/2023 Smokeless tobacco: Never Vaping Use Vaping status: Never Used Substance Use Topics Alcohol use: No Drug use: No FAMILY HISTORY Problem Relation Age of Onset Cancer Mother uterine other (depression) Maternal Grandmother PAIN EVALUATION No data found in the last 1 encounters. ALLERGIES Allergen Reactions Amoxicillin-Pot Cla* Anaphylaxis, Swelling Metformin Diarrhea Lisinopril Cough Sulfamethoxazole-Tr* Rash, Hives, Swelling Medication List prior to visit Current Outpatient Medications Medication Sig iv contrast (will be provided with radiology test) Inject 1 Each intravenously one time only for [address] Neck W IVCON No IV access, insert saline lock prior to the sedation, infusion, injection for imaging exam. Discontinue saline lock post exam. If Pt. has a central line or IVAD, may access for administration according to line specific nursing protocol. Once exam is complete flush line and de-access according to line specific nursing protocol in the CT (more content not included)... Normal [facility] CNOV Office Visit (AGGENS3) VENKAT MARSH ([id number]) 1965 M Date Time Provider Department 10/18/24 9:15 AM INDER BRUCE AGGENS3 During your visit today, we recorded the following information about you: Pulse Respiration Blood pressure Weight 83/minute 24/minute 164/124 132.5 kg Height 1.702 m Inder Bruce MD 10/18/2024 3:18 PM Signed Consultation requested by Dr. Craven for an opinion regarding neck mass. My final recommendations will be communicated back to the requesting physician by way of shared Medical record or letter to requesting physician via US mail. Venkat Marsh is a 59 year old White male who presents with complaints of left-sided neck mass. He has had this for about 6 months. He thinks it is increasing in size and does cause him discomfort. Denies any weight loss. He does smoke half pack of cigarettes a day. Ultrasound did reveal a 3.8 cm solid avascular mass. PAST MEDICAL HISTORY Diagnosis Date Bipolar 1 disorder (HCC) CAD S/P percutaneous coronary angioplasty 2011 [place] Diabetes mellitus (HCC) History of acute myocardial infarction HTN (hypertension) Hypercholesteremia Hypothyroidism PAST SURGICAL HISTORY Procedure Laterality Date ANGIOPLASTY 2011 [facility] STENT COLONOSCOPY 2009 [facility] ARTHROSCOPY/SURGERY 2000 loose body removal lt HAND SURGERY HX Left 2022 KNEE ARTHROSCOPY/SURGERY 1985 loose body removal lt OSTEOTOMY FIBULA Left 1980 PAST SURGICAL HISTORY OF 1988 Rt wrist bone graft PAST SURGICAL HISTORY OF R navicular REPAIR INGUINAL HERNIA 1986 REPAIR NASAL SEPTUM DEFECT 1996 THYROIDECTOMY SUBTOTAL/PARTIAL 2009 TONSILLECTOMY PRIMARY/SECONDARY Tonsillectomy Social History Tobacco Use Smoking status: Every Day Current packs/day: 0.50 Average packs/day: 0.5 packs/day for 40.5 years (20.2 ttl pk-yrs) Types: Cigarettes Start date: 04/21/2023 Smokeless tobacco: Never Vaping Use Vaping status: Never Used Substance Use Topics Alcohol use: No Drug use: No FAMILY HISTORY Problem Relation Age of Onset Cancer Mother uterine other (depression) Maternal Grandmother ALLERGIES Allergen Reactions Amoxicillin-Pot Cla* Anaphylaxis, Swelling Metformin Diarrhea Lisinopril Cough Sulfamethoxazole-Tr* Rash, Hives, Swelling Current Outpatient Medications Medication Sig albuterol HFA (PROVENTIL HFA, VENTOLIN HFA) 90 mcg/actuation inhaler Inhale 2 Puffs as instructed every 4 hours as needed for wheezing/shortness of breath. empagliflozin (JARDIANCE) 10 mg tablet Take 1 tablet by mouth daily with breakfast. metFORMIN (GLUCOPHAGE) 1,000 mg tablet Take 1 tablet by mouth two times a day. levothyroxine (SYNTHROID) 125 mcg tablet Take 1 tablet by mouth daily before breakfast. metoprolol succinate ER (TOPROL XL) 25 mg 24 hr tablet Take 1 tablet by mouth once daily. dulaglutide (TRULICITY) 0.75 mg/0.5 mL pen injector Inject 0.75 mg subcutaneously one time a week. Monitor bs closely and keep food log insulin glargine 100 unit/mL (3 mL) Inject 20 Units subcutaneously daily at bedtime. Inject 20 Units subcutaneously as directed mirtazapine (REMERON) 15 mg tablet Take 1 tablet by mouth daily at bedtime. traZODone (DESYREL) 100 mg tablet Take 1 tablet by mouth daily at bedtime. rosuvastatin (CRESTOR) 10 mg tablet Take 1 tablet by mouth daily at bedtime. spironolactone (ALDACTONE) 25 mg tablet Take 1 tablet by mouth once daily. sacubitril-valsartan (ENTRESTO) 24-26 mg tablet Take 1 tablet by mouth two times a day. magnesium, aluminum hydroxide (MYLANTA ORAL) Take 5 mL by mouth two times a day as needed (heartburn). nystatin (MYCOSTATIN) 100,000 unit/mL suspension Take 100,000 Units by mouth four times daily. Swish and swallow. 5 ml 4times daily iv contrast (will be provided with radiology test) Inject 1 Each intravenously one time only for [address] Neck W IVCON No IV access, insert saline lock prior to the sedation, infusion, injection for imaging exam. Discontinue saline lock post exam. If Pt. has a central line or IVAD, may access for administration according to line specific nursing protocol. Once exam is complete flush line and de-access according to line specific nursing protocol in the CT contrast administration guidelines link. Insulin Syringe-Needle U-100 0.5 mL 31 gauge x 5/16 Inject 1 Each subcutaneously every 24 hours. Give with each insulin administration. Insulin Whitman, Disposable, (PEN NEEDLE) 32 gauge x 5/32 Inject 1 Each subcutaneously every 24 hours. Give with each insulin administration. aspirin, enteric coated (ADULT LOW DOSE ASPIRIN) 81 mg EC tablet Take 1 tablet by mouth once daily. ASA/acetaminophen/caf feine/pot (GOODY'S HEADACHE POWDER ORAL) Take 1 Packet by mouth as needed (headaches). furosemide (LASIX) 40 mg tablet Take 1 tablet by mouth once daily. Patient should sta (more content not included)... Normal [facility] CNPDeena 10-18-2024 [facility] (AGFivejack[facility] VENKAT MARSH ([id number]) 1965 M Date Time Provider Department 10/18/24 ORAL ABBASI During your visit today, we recorded the following information about you: Kathia Hoover 10/18/2024 3:15 PM Signed Referral to cardiology entered into the [facility] portal on 10/18/24. Confirmation number [id number]. Allergies As of Date: 10/18/2024 Noted Allergy Reaction AMOXICILLIN-POT CLAVULANATE 12/23/2023 10 - Anaphylaxis 7 - Swelling METFORMIN 04/26/2023 6 - Diarrhea LISINOPRIL 04/24/2023 3 - Cough SULFAMETHOXAZOLE-TRIM ETHOPRIM 10/20/2009 2 - Rash 4 - Hives 7 - Swelling Date Reviewed: 10/18/2024 Reviewed by: Yamini Delarosa LPN - Fully Assessed Reason for Visit: Referral Information [1619] Cmt: Cardiology Prescriptions as of 10/18/2024 - iv contrast (will be provided with radiology test) Inject 1 Each intravenously one time only for [address] Neck W IVCON No IV access, insert saline lock prior to the sedation, infusion, injection for imaging exam. Discontinue saline lock post exam. If Pt. has a central line or IVAD, may access for administration according to line specific nursing protocol. Once exam is complete flush line and de-access according to line specific nursing protocol in the CT contrast administration guidelines link. - spironolactone (ALDACTONE) 25 mg tablet Take 1 tablet by mouth once daily. - nystatin (MYCOSTATIN) 100,000 unit/mL suspension Take 1 mL by mouth four times daily. Swish and swallow. 5 ml 4times daily - albuterol HFA (PROVENTIL HFA, VENTOLIN HFA) 90 mcg/actuation inhaler Inhale 2 Puffs as instructed every 4 hours as needed for wheezing/shortness of breath. - Insulin Syringe-Needle U-100 0.5 mL 31 gauge x 5/16 Inject 1 Each subcutaneously every 24 hours. Give with each insulin administration. - empagliflozin (JARDIANCE) 10 mg tablet Take 1 tablet by mouth daily with breakfast. - metFORMIN (GLUCOPHAGE) 1,000 mg tablet Take 1 tablet by mouth two times a day. - levothyroxine (SYNTHROID) 125 mcg tablet Take 1 tablet by mouth daily before breakfast. - metoprolol succinate ER (TOPROL XL) 25 mg 24 hr tablet Take 1 tablet by mouth once daily. - Insulin Whitman, Disposable, (PEN NEEDLE) 32 gauge x 5/32 Inject 1 Each subcutaneously every 24 hours. Give with each insulin administration. - dulaglutide (TRULICITY) 0.75 mg/0.5 mL pen injector Inject 0.75 mg subcutaneously one time a week. Monitor bs closely and keep food log - insulin glargine 100 unit/mL (3 mL) Inject 20 Units subcutaneously daily at bedtime. Inject 20 Units subcutaneously as directed - mirtazapine (REMERON) 15 mg tablet Take 1 tablet by mouth daily at bedtime. - traZODone (DESYREL) 100 mg tablet Take 1 tablet by mouth daily at bedtime. - rosuvastatin (CRESTOR) 10 mg tablet Take 1 tablet by mouth daily at bedtime. - sacubitril-valsartan (ENTRESTO) 24-26 mg tablet Take 1 tablet by mouth two times a day. - magnesium, aluminum hydroxide (MYLANTA ORAL) Take 5 mL by mouth two times a day as needed (heartburn). Meds Comments as of 10/23/2023: 10/23/23 The medications are managed by this patient by: PATIENT Calixto Latif OA Problem List As Of Date 10/18/2024 Noted Resolved CAD (coronary artery disease) [I25.10] 09/04/2014 S/P coronary artery stent placement [Z95.5] 09/04/2014 Left bundle branch block (LBBB) on electrocardi*09/04/20 14 H/O myocardial infarction, greater than 8 weeks*09/04/2014 Tobacco abuse [Z72.0] 09/04/2014 Obesity [E66.9] 09/04/2014 Status post insertion of drug-eluting stent int*11/17/2016 Non morbid obesity due to excess calories [E66.*11/17/2016 Obesity, Class III, BMI >= 40 [E66.01] 05/11/2023 Hypercholesteremia [E78.00] HTN (hypertension) [I10] Schizoaffective disorder, bipolar type ([facility]) [F*09/10/2023 11/02/2023 Cocaine dependence in remission ([facility]) [F14.21] 09/10/2023 Hypothyroidism [E03.9] Diabetes mellitus ([facility]) [E11.9] Cataract, nuclear sclerotic, both eyes [H25.13] 10/23/2023 Hyperopia of both eyes [H52.03] 10/23/2023 Regular astigmatism of both eyes [H52.223] 10/23/2023 Presbyopia of both eyes [H52.4] 10/23/2023 Mood disorder ([facility]) [F39] 11/02/2023 Acute systolic HF (heart failure) ([facility]) [I50.21]04/13/2024 Acute on chronic systolic (congestive) heart fa*04/13/2024 04/15/2024 Atrial fib/flutter, transient (HCC) [I48.91, I4*04/14/2024 Mixed hyperlipidemia [E78.2] 04/14/2024 Morbid obesity (HCC) [E66.01] 04/14/2024 Essential hypertension [I10] 04/14/2024 Chronic HFrEF (heart failure with reduced eject*04/14/2024 Typical atrial flutter (HCC) [I48.3] 04/15/2024 Encounter Status:Closed by KATHIA HOOVER on 10/18/24 [facility] CNPN Telephone (AGINTMAC) VENKAT MARSH ([id number]) 1965 M Date Time Provider Department 10/18/24 ORAL ABBASI Fivejack During your visit today, we recorded the following information about you: Miky العراقي 10/18/2024 3:08 PM Signed Cardioogy referral placed in [facility] portal. Confirmation number: [id number] Miky العراقي, Housekeeping Worker October 18, 2024 3:06 PM Allergies As of Date: 10/18/2024 Noted Allergy Reaction AMOXICILLIN-POT CLAVULANATE 12/23/2023 10 - Anaphylaxis 7 - Swelling METFORMIN 04/26/2023 6 - Diarrhea LISINOPRIL 04/24/2023 3 - Cough SULFAMETHOXAZOLE-TRIM ETHOPRIM 10/20/2009 2 - Rash 4 - Hives 7 - Swelling Date Reviewed: 10/18/2024 Reviewed by: Yamini Delarosa LPN - Fully Assessed Reason for Visit: Referral Request [124] Cmt: Cardiology Prescriptions as of 10/18/2024 - iv contrast (will be provided with radiology test) Inject 1 Each intravenously one time only for [address] Neck W IVCON No IV access, insert saline lock prior to the sedation, infusion, injection for imaging exam. Discontinue saline lock post exam. If Pt. has a central line or IVAD, may access for administration according to line specific nursing protocol. Once exam is complete flush line and de-access according to line specific nursing protocol in the CT contrast administration guidelines link. - spironolactone (ALDACTONE) 25 mg tablet Take 1 tablet by mouth once daily. - nystatin (MYCOSTATIN) 100,000 unit/mL suspension Take 1 mL by mouth four times daily. Swish and swallow. 5 ml 4times daily - albuterol HFA (PROVENTIL HFA, VENTOLIN HFA) 90 mcg/actuation inhaler Inhale 2 Puffs as instructed every 4 hours as needed for wheezing/shortness of breath. - Insulin Syringe-Needle U-100 0.5 mL 31 gauge x 5/16 Inject 1 Each subcutaneously every 24 hours. Give with each insulin administration. - empagliflozin (JARDIANCE) 10 mg tablet Take 1 tablet by mouth daily with breakfast. - metFORMIN (GLUCOPHAGE) 1,000 mg tablet Take 1 tablet by mouth two times a day. - levothyroxine (SYNTHROID) 125 mcg tablet Take 1 tablet by mouth daily before breakfast. - metoprolol succinate ER (TOPROL XL) 25 mg 24 hr tablet Take 1 tablet by mouth once daily. - Insulin Whitman, Disposable, (PEN NEEDLE) 32 gauge x 5/32 Inject 1 Each subcutaneously every 24 hours. Give with each insulin administration. - dulaglutide (TRULICITY) 0.75 mg/0.5 mL pen injector Inject 0.75 mg subcutaneously one time a week. Monitor bs closely and keep food log - insulin glargine 100 unit/mL (3 mL) Inject 20 Units subcutaneously daily at bedtime. Inject 20 Units subcutaneously as directed - mirtazapine (REMERON) 15 mg tablet Take 1 tablet by mouth daily at bedtime. - traZODone (DESYREL) 100 mg tablet Take 1 tablet by mouth daily at bedtime. - rosuvastatin (CRESTOR) 10 mg tablet Take 1 tablet by mouth daily at bedtime. - aspirin, enteric coated (ADULT LOW DOSE ASPIRIN) 81 mg EC tablet Take 1 tablet by mouth once daily. - sacubitril-valsartan (ENTRESTO) 24-26 mg tablet Take 1 tablet by mouth two times a day. - furosemide (LASIX) 40 mg tablet Take 1 tablet by mouth once daily. Patient should start on April 16, 2024. - magnesium, aluminum hydroxide (MYLANTA ORAL) Take 5 mL by mouth two times a day as needed (heartburn). Meds Comments as of 10/23/2023: 10/23/23 The medications are managed by this patient by: PATIENT Calixto Latif, OA Problem List As Of Date 10/18/2024 Noted Resolved CAD (coronary artery disease) [I25.10] 09/04/2014 S/P coronary artery stent placement [Z95.5] 09/04/2014 Left bundle branch block (LBBB) on electrocardi*09/04/20 14 H/O myocardial infarction, greater than 8 weeks*09/04/2014 Tobacco abuse [Z72.0] 09/04/2014 Obesity [E66.9] 09/04/2014 Status post insertion of drug-eluting stent int*11/17/2016 Non morbid obesity due to excess calories [E66.*11/17/2016 Obesity, Class III, BMI >= 40 [E66.01] 05/11/2023 Hypercholesteremia [E78.00] HTN (hypertension) [I10] Schizoaffective disorder, bipolar type (HCC) [F*09/10/2023 11/02/2023 Cocaine dependence in remission ([facility]) [F14.21] 09/10/2023 Hypothyroidism [E03.9] Diabetes mellitus (HCC) [E11.9] Cataract, nuclear sclerotic, both eyes [H25.13] 10/23/2023 Hyperopia of both eyes [H52.03] 10/23/2023 Regular astigmatism of both eyes [H52.223] 10/23/2023 Presbyopia of both eyes [H52.4] 10/23/2023 Mood disorder (HCC) [F39] 11/02/2023 Acute systolic HF (heart failure) (HCC) [I50.21]04/13/2024 Acute on chronic systolic (congestive) heart fa*04/13/2024 04/15/2024 Atrial fib/flutter, transient (HCC) [I48.91, I4*04/14/2024 Mixed hyperlipidemia [E78.2] 04/14/2024 Morbid obesity (HCC) [E66.01] 04/14/2024 Essential hypertension [I10] 04/14/2024 Chronic HFrEF (heart failure with reduced eject*04/14/2024 Typical atrial flutter (HCC) [I48.3] more content not included)... Normal [facility] Lipid 1996 panelon 5 Cholesterol [Mass/Vol] 201 mg/dL High <200 [facility] Comment on above: Order Comment: Jazmin jolley Type: BLOOD SPECIMEN Ordering Facility: [facility] Address: [address] [place] [address] Result Comment: <200 mg/dL, Desirable 200-239 mg/dL, Borderline high >239 mg/dL, High Performed By: #### 2 4321-2, 80035-3, 63785-7 #### [facility] CLIA [id number] [address] [place] OF [facility] Cholesterol in HDL [Mass/Vol] 43 mg/dL Normal >39 [facility] Comment on above: Order Comment: Jazmin jolley Type: BLOOD SPECIMEN Ordering Facility: [facility] Address: [address] [place] [address] Result Comment: 40-5 9 mg/dL, Acceptable >59 mg/dL, High: Negative risk factor for coronary heart disease <40 mg/dL, Low: Positive risk factor for coronary heart disease Performed By: #### 2 4321-2, 51867-5, 39898-9 #### [facility] CLIA [id number] [address] [place] [facility] Cholesterol in LDL [Mass/Vol] 124 mg/dL High <100 [facility] Comment on above: Order Comment: Jazmin jolley Type: BLOOD SPECIMEN Ordering Facility: [facility] Address: [address] [place] [address] Result Comment: <100 mg/dL, Optimal 100-129 mg/dL, Near optimal/above optimal 130-159 mg/dL, Borderline high 160-189 mg/dL, High >189 mg/dL, Very high Secondary prevention optimal LDL Cholesterol levels are recommended to be < 70 mg/dL Performed By: #### 2 4321-2, 74098-4, 51418-8 #### [facility] CLIA [id number] [address] Cholesterol in LDL/Cholesterol in HDL [Mass ratio] 2.88 {ratio} High <2.54 [facility] Comment on above: Order Comment: Jazmin jolley Type: BLOOD SPECIMEN Ordering Facility: [facility] Address: [address] [place] [address] Result Comment: Refe rence: 1. National Cholesterol Education Program ATP III Guideline At-A-Glance Quick Desk Reference: National Heart, Lung, and Blood Rough And Ready. National Institutes of Health. 2001: NIH Publication No. 01-3305. 2. An International Atherosclerosis Society position paper: global recommendations for the management of dyslipidemia: executive summary, Atherosclerosis. 2014: 232(2):410-413. Performed By: #### 2 4321-2, 35625-7, 25533-8 #### [facility] CLIA [id number] [address] Cholesterol in VLDL [Mass/Vol] 34 mg/dL High <30 [facility] Comment on above: Order Comment: Jazmin jolley Type: BLOOD SPECIMEN Ordering Facility: [facility] Address: [address] [place] [address] Performed By: #### 2 4321-2, 25210-8, 57914-6 #### [facility] CLIA [id number] [address] Cholesterol non HDL [Mass/Vol] 158 mg/dL High <130 [facility] Comment on above: Order Comment: Jazmin samreen Type: BLOOD SPECIMEN Ordering Facility: [facility] Address: [address] [place] [address] Result Comment: <130 mg/dL, Optimal 130-159 mg/dL, Near optimal/above optimal 160-189 mg/dL, Borderline high 190-219 mg/dL, High >219 mg/dL, Very high Secondary prevention optimal non HDL Cholesterol levels are recommended to be <100 mg/dL Performed By: #### 2 4321-2, 10103-7, 30920-0 #### [facility] CLIA [id number] [address] [place] [address] Cholesterol.total/Ana sterol in HDL [Mass ratio] 4.67 {ratio} Normal <5.10 [facility] Comment on above: Order Comment: Jazmin jolley Type: BLOOD SPECIMEN Ordering Facility: [facility] Address: [address] [place] [address] Performed By: #### 2 4321-2, 30093-3, 00867-4 #### [facility] CLIA [id number] [address] FASTING TIME 10 hrs Normal [facility] Comment on above: Order Comment: Jazmin samreen Type: BLOOD SPECIMEN Ordering Facility: [facility] Address: [address] [place] [address] Performed By: #### 2 4321-2, 31876-6, 20831-4 #### [facility] CLIA [id number] [address] Triglyceride [Mass/Vol] 169 mg/dL High <150 [facility] Comment on above: Order Comment: Jazmin samreen Type: BLOOD SPECIMEN Ordering Facility: [facility] Address: [address] [place] [address] Result Comment: <150 mg/dL, Normal 150-199 mg/dL, Borderline high 200-499 mg/dL, High >499 mg/dL, Very high Performed By: #### 2 4321-2, 50118-5, 82581-4 #### [facility] CLIA [id number] [address] [facility] [place] 10-13-2024 SOY Telephone (ARESCL) VENKAT MARSH ([id number]) 1965 M Date Time Provider Department 10/13/24 FERNS, YULIET ARESCL During your visit today, we recorded the following information about you: Jelena Oleary 10/13/2024 3:50 PM Signed Faxed Diagnosis verification letter To [facility] on 10/13/24 - Attn Leeann [phone] Scanned fax confirmation into [facility] on 10/13/24 Jelena Oleary October 13, 2024 3:50 PM Allergies As of Date: 10/13/2024 Noted Allergy Reaction AMOXICILLIN-POT CLAVULANATE 12/23/2023 10 - Anaphylaxis 7 - Swelling METFORMIN 04/26/2023 6 - Diarrhea LISINOPRIL 04/24/2023 3 - Cough SULFAMETHOXAZOLE-TRIM ETHOPRIM 10/20/2009 2 - Rash 4 - Hives 7 - Swelling Date Reviewed: 04/27/2024 Reviewed by: Cristobal Ames, RN - Fully Assessed Reason for Visit: Patient Update [1234] Cmt: Faxed Diagnosis verification letter Prescriptions as of 10/18/2024 - iv contrast (will be provided with radiology test) Inject 1 Each intravenously one time only for [address] Neck W IVCON No IV access, insert saline lock prior to the sedation, infusion, injection for imaging exam. Discontinue saline lock post exam. If Pt. has a central line or IVAD, may access for administration according to line specific nursing protocol. Once exam is complete flush line and de-access according to line specific nursing protocol in the CT contrast administration guidelines link. - spironolactone (ALDACTONE) 25 mg tablet Take 1 tablet by mouth once daily. - nystatin (MYCOSTATIN) 100,000 unit/mL suspension Take 1 mL by mouth four times daily. Swish and swallow. 5 ml 4times daily - albuterol HFA (PROVENTIL HFA, VENTOLIN HFA) 90 mcg/actuation inhaler Inhale 2 Puffs as instructed every 4 hours as needed for wheezing/shortness of breath. - Insulin Syringe-Needle U-100 0.5 mL 31 gauge x 5/16 Inject 1 Each subcutaneously every 24 hours. Give with each insulin administration. - empagliflozin (JARDIANCE) 10 mg tablet Take 1 tablet by mouth daily with breakfast. - metFORMIN (GLUCOPHAGE) 1,000 mg tablet Take 1 tablet by mouth two times a day. - levothyroxine (SYNTHROID) 125 mcg tablet Take 1 tablet by mouth daily before breakfast. - metoprolol succinate ER (TOPROL XL) 25 mg 24 hr tablet Take 1 tablet by mouth once daily. - Insulin Whitman, Disposable, (PEN NEEDLE) 32 gauge x 5/32 Inject 1 Each subcutaneously every 24 hours. Give with each insulin administration. - dulaglutide (TRULICITY) 0.75 mg/0.5 mL pen injector Inject 0.75 mg subcutaneously one time a week. Monitor bs closely and keep food log - insulin glargine 100 unit/mL (3 mL) Inject 20 Units subcutaneously daily at bedtime. Inject 20 Units subcutaneously as directed - mirtazapine (REMERON) 15 mg tablet Take 1 tablet by mouth daily at bedtime. - traZODone (DESYREL) 100 mg tablet Take 1 tablet by mouth daily at bedtime. - rosuvastatin (CRESTOR) 10 mg tablet Take 1 tablet by mouth daily at bedtime. - sacubitril-valsartan (ENTRESTO) 24-26 mg tablet Take 1 tablet by mouth two times a day. - magnesium, aluminum hydroxide (MYLANTA ORAL) Take 5 mL by mouth two times a day as needed (heartburn). Meds Comments as of 10/23/2023: 10/23/23 The medications are managed by this patient by: PATIENT OPHELIA Crooks Problem List As Of Date 10/13/2024 Noted Resolved CAD (coronary artery disease) [I25.10] 09/04/2014 S/P coronary artery stent placement [Z95.5] 09/04/2014 Left bundle branch block (LBBB) on electrocardi*09/04/20 14 H/O myocardial infarction, greater than 8 weeks*09/04/2014 Tobacco abuse [Z72.0] 09/04/2014 Obesity [E66.9] 09/04/2014 Status post insertion of drug-eluting stent int*11/17/2016 Non morbid obesity due to excess calories [E66.*11/17/2016 Obesity, Class III, BMI >= 40 [E66.01] 05/11/2023 Hypercholesteremia [E78.00] HTN (hypertension) [I10] Schizoaffective disorder, bipolar type (HCC) [F*09/10/2023 11/02/2023 Cocaine dependence in remission (HCC) [F14.21] 09/10/2023 Hypothyroidism [E03.9] Diabetes mellitus (HCC) [E11.9] Cataract, nuclear sclerotic, both eyes [H25.13] 10/23/2023 Hyperopia of both eyes [H52.03] 10/23/2023 Regular astigmatism of both eyes [H52.223] 10/23/2023 Presbyopia of both eyes [H52.4] 10/23/2023 Mood disorder (HCC) [F39] 11/02/2023 Acute systolic HF (heart failure) (HCC) [I50.21]04/13/2024 Acute on chronic systolic (congestive) heart fa*04/13/2024 04/15/2024 Atrial fib/flutter, transient (HCC) [I48.91, I4*04/14/2024 Mixed hyperlipidemia [E78.2] 04/14/2024 Morbid obesity ([facility]) [E66.01] 04/14/2024 Essential hypertension [I10] 04/14/2024 Chronic HFrEF (heart failure with reduced eject*04/14/2024 Typical atrial flutter (HCC) [I48.3] 04/15/2024 Encounter Status:Closed by JELENA OLEARY on 10/18/24 [facility] [place] 10-12-2024 SOY Telephone (EDWIN) VENKAT MARSH ([id number]) 1965 M Date Time Provider Department 10/12/24 YULIET FONG During your visit today, we recorded the following information about you: Jelena Oleary 10/12/2024 12:04 PM Signed Continued encounter from 10/07/24 - Leeann called again AND I confirmed with Leeann that we received the document she would like Dr Fong to complete- I noticed that we don't have a release of records form from our patient . I called Leeann on 10/12/24 at 11:40 am and left a detailed message - we need written permission to release records to [facility]. Please call back ( I still need [facility] address phone number - etc I think I have Leeann cell #) Does she want progress notes regarding patient or just 1 pg diagnosis form completed. I also called and spoke to patient on 10/12/24 At 11:30 am he thought Sasha Tomlinson already took care of this (release) I told Venkat I will upload Release of Record form into [employer] for him to print out and sign this afternoon if I don't hear back from Leeann at [facility] October 12, 2024 12:04 PM Jelena Oleary 10/12/2024 3:27 PM Signed I called Leeann back on 10/12/24 3pm - let her know I received the release of records I scanned both forms into [employer] - we have release from [facility] to [facility] and release to [facility] form I also called Venkat back- and spoke with him on 10/12/24 explained I don't need to send him our release of record form I received the proper one from Leeann I put form to be completed into Dr Fong mailbox today - there is an extra blank copy scanned into [employer] [facility] October 12, 2024 3:27 PM Yuliet Fong DO 10/13/2024 9:59 AM Signed Form filled out and left with Jelena Oleary 10/13/24 Allergies As of Date: 10/12/2024 Noted Allergy Reaction AMOXICILLIN-POT CLAVULANATE 12/23/2023 10 - Anaphylaxis 7 - Swelling METFORMIN 04/26/2023 6 - Diarrhea LISINOPRIL 04/24/2023 3 - Cough SULFAMETHOXAZOLE-TRIM ETHOPRIM 10/20/2009 2 - Rash 4 - Hives 7 - Swelling Date Reviewed: 04/27/2024 Reviewed by: Cristobal Ames RN - Fully Assessed Reason for Visit: Patient Update [1234] Cmt: Need release of Records form completed Primary Visit Diagnosis:Mood disorder (HCC) [F39] Other Visit Diagnoses:Insomnia, unspecified type [G47.00] Anxiety [F41.9] Cocaine use disorder in remission [F14.91] Prescriptions as of 10/13/2024 - albuterol HFA (PROVENTIL HFA, VENTOLIN HFA) 90 mcg/actuation inhaler Inhale 2 Puffs as instructed every 4 hours as needed for wheezing/shortness of breath. - Insulin Syringe-Needle U-100 0.5 mL 31 gauge x 5/16 Inject 1 Each subcutaneously every 24 hours. Give with each insulin administration. - empagliflozin (JARDIANCE) 10 mg tablet Take 1 tablet by mouth daily with breakfast. - metFORMIN (GLUCOPHAGE) 1,000 mg tablet Take 1 tablet by mouth two times a day. - levothyroxine (SYNTHROID) 125 mcg tablet Take 1 tablet by mouth daily before breakfast. - metoprolol succinate ER (TOPROL XL) 25 mg 24 hr tablet Take 1 tablet by mouth once daily. - Insulin Whitman, Disposable, (PEN NEEDLE) 32 gauge x 5/32 Inject 1 Each subcutaneously every 24 hours. Give with each insulin administration. - dulaglutide (TRULICITY) 0.75 mg/0.5 mL pen injector Inject 0.75 mg subcutaneously one time a week. Monitor bs closely and keep food log - insulin glargine 100 unit/mL (3 mL) Inject 20 Units subcutaneously daily at bedtime. Inject 20 Units subcutaneously as directed - mirtazapine (REMERON) 15 mg tablet Take 1 tablet by mouth daily at bedtime. - traZODone (DESYREL) 100 mg tablet Take 1 tablet by mouth daily at bedtime. - rosuvastatin (CRESTOR) 10 mg tablet Take 1 tablet by mouth daily at bedtime. - spironolactone (ALDACTONE) 25 mg tablet Take 1 tablet by mouth once daily. - aspirin, enteric coated (ADULT LOW DOSE ASPIRIN) 81 mg EC tablet Take 1 tablet by mouth once daily. - ASA/acetaminophen/caf feine/pot (GOODY'S HEADACHE POWDER ORAL) Take 1 Packet by mouth as needed (headaches). - sacubitril-valsartan (ENTRESTO) 24-26 mg tablet Take 1 tablet by mouth two times a day. - furosemide (LASIX) 40 mg tablet Take 1 tablet by mouth once daily. Patient should start on April 16, 2024. - magnesium, aluminum hydroxide (MYLANTA ORAL) Take 5 mL by mouth two times a day as needed (heartburn). - nystatin (MYCOSTATIN) 100,000 unit/mL suspension Take 100,000 Units by mouth four times daily. Swish and swallow. 5 ml 4times daily Meds Comments as of 10/23/2023: 10/23/23 The medications are managed by this patient by: PATIENT Calixto LatifOPHELIA Problem List As Of Date 10/12/2024 Noted Resolved CAD (coronary artery disease) [I25.10] 09/04/2014 S/P coronary artery stent placement [Z95.5] 09/04/2014 Left bundle branch block (LBBB) on electrocardi*09/04/20 14 H/O myocardial infarction, gr (more content not included)... Normal [facility] CNPNon 10-11-2024 CNPN Telephone (AGINTMAC) VENKAT MARSH ([id number]) 1965 M Date Time Provider Department 10/11/24 GAVIN BETANCUR During your visit today, we recorded the following information about you: Miky العراقي 10/11/2024 8:52 AM Signed Patient called requesting a referral to a specialist for the large bump on the back on his neck. Patient states he has imaging in October last year and it is still bothering him. Miky العراقي, Housekeeping Worker October 11, 2024 8:52 AM Gavin Betancur DO 10/13/2024 10:14 PM Signed Consult placed to general surgery for possible surgical removal of neck lipoma. Bakari Dumont 10/14/2024 8:39 AM Addendum Referral placed in portal Confirmation number: [id number] Patient has been made aware and will call to get scheduled. Bakari Dumont Housekeeping Worker I October 14, 2024 8:37 AM Allergies As of Date: 10/11/2024 Noted Allergy Reaction AMOXICILLIN-POT CLAVULANATE 12/23/2023 10 - Anaphylaxis 7 - Swelling METFORMIN 04/26/2023 6 - Diarrhea LISINOPRIL 04/24/2023 3 - Cough SULFAMETHOXAZOLE-TRIM ETHOPRIM 10/20/2009 2 - Rash 4 - Hives 7 - Swelling Date Reviewed: 04/27/2024 Reviewed by: Cristobal Ames RN - Fully Assessed Reason for Visit: Referral Request [124] Primary Visit Diagnosis:Lipoma of neck [D17.0] Order(s):CONSULT TO GENERAL SURGERY [9099] Order #: [id number]: 1 FUTURE Prescriptions as of 10/14/2024 - albuterol HFA (PROVENTIL HFA, VENTOLIN HFA) 90 mcg/actuation inhaler Inhale 2 Puffs as instructed every 4 hours as needed for wheezing/shortness of breath. - Insulin Syringe-Needle U-100 0.5 mL 31 gauge x 5/16 Inject 1 Each subcutaneously every 24 hours. Give with each insulin administration. - empagliflozin (JARDIANCE) 10 mg tablet Take 1 tablet by mouth daily with breakfast. - metFORMIN (GLUCOPHAGE) 1,000 mg tablet Take 1 tablet by mouth two times a day. - levothyroxine (SYNTHROID) 125 mcg tablet Take 1 tablet by mouth daily before breakfast. - metoprolol succinate ER (TOPROL XL) 25 mg 24 hr tablet Take 1 tablet by mouth once daily. - Insulin Whitman, Disposable, (PEN NEEDLE) 32 gauge x 5/32 Inject 1 Each subcutaneously every 24 hours. Give with each insulin administration. - dulaglutide (TRULICITY) 0.75 mg/0.5 mL pen injector Inject 0.75 mg subcutaneously one time a week. Monitor bs closely and keep food log - insulin glargine 100 unit/mL (3 mL) Inject 20 Units subcutaneously daily at bedtime. Inject 20 Units subcutaneously as directed - mirtazapine (REMERON) 15 mg tablet Take 1 tablet by mouth daily at bedtime. - traZODone (DESYREL) 100 mg tablet Take 1 tablet by mouth daily at bedtime. - rosuvastatin (CRESTOR) 10 mg tablet Take 1 tablet by mouth daily at bedtime. - spironolactone (ALDACTONE) 25 mg tablet Take 1 tablet by mouth once daily. - aspirin, enteric coated (ADULT LOW DOSE ASPIRIN) 81 mg EC tablet Take 1 tablet by mouth once daily. - ASA/acetaminophen/caf feine/pot (GOODY'S HEADACHE POWDER ORAL) Take 1 Packet by mouth as needed (headaches). - sacubitril-valsartan (ENTRESTO) 24-26 mg tablet Take 1 tablet by mouth two times a day. - furosemide (LASIX) 40 mg tablet Take 1 tablet by mouth once daily. Patient should start on April 16, 2024. - magnesium, aluminum hydroxide (MYLANTA ORAL) Take 5 mL by mouth two times a day as needed (heartburn). - nystatin (MYCOSTATIN) 100,000 unit/mL suspension Take 100,000 Units by mouth four times daily. Swish and swallow. 5 ml 4times daily Meds Comments as of 10/23/2023: 10/23/23 The medications are managed by this patient by: PATIENT OPHELIA Crooks Problem List As Of Date 10/11/2024 Noted Resolved CAD (coronary artery disease) [I25.10] 09/04/2014 S/P coronary artery stent placement [Z95.5] 09/04/2014 Left bundle branch block (LBBB) on electrocardi*09/04/20 14 H/O myocardial infarction, greater than 8 weeks*09/04/2014 Tobacco abuse [Z72.0] 09/04/2014 Obesity [E66.9] 09/04/2014 Status post insertion of drug-eluting stent int*11/17/2016 Non morbid obesity due to excess calories [E66.*11/17/2016 Obesity, Class III, BMI >= 40 [E66.01] 05/11/2023 Hypercholesteremia [E78.00] HTN (hypertension) [I10] Schizoaffective disorder, bipolar type ([facility]) [F*09/10/2023 11/02/2023 Cocaine dependence in remission ([facility]) [F14.21] 09/10/2023 Hypothyroidism [E03.9] Diabetes mellitus ([facility]) [E11.9] Cataract, nuclear sclerotic, both eyes [H25.13] 10/23/2023 Hyperopia of both eyes [H52.03] 10/23/2023 Regular astigmatism of both eyes [H52.223] 10/23/2023 Presbyopia of both eyes [H52.4] 10/23/2023 Mood disorder ([facility]) [F39] 11/02/2023 Acute systolic HF (heart failure) (HCC) [I50.21]04/13/2024 Acute on chronic systolic (congestive) heart fa*04/13/2024 04/15/2024 Atrial fib/flutter, transient (HCC) [I48.91, I4*04/14/2024 Mixed hyperlipidemia [E78.2] (more content not included)... Normal [facility] CNPNon 10-07-2024 CNPN Telephone (ARESCL) VENKAT MARSH ([id number]) 1965 M Date Time Provider Department 10/07/24 YULIET FONG ARETISH During your visit today, we recorded the following information about you: Jelena Oleary 10/07/2024 10:38 AM Addendum Leeann (Recovery Mgr) from [facility] [phone] Called on 10/07/24 left a message on voicemail Asking if we received a fax from her She needs diagnostic confirmation sheet completed - I explained usually a 48-72 response time-she had the wrong fax number - I gave her the correct fax number- she will re-fax Jelena Oleary October 07, 2024 10:36 AM Jelena Oleary 10/12/2024 11:10 AM Signed Leeann Tomlinson called again on 10/12/24- 11:05 am asking if we received request for diagnosis confirmation - for this patient so that he can apply for Medicaid Said she faxed it to the correct fax number AND has a confirmation. I told her no I don't see where it was received- says she will re-fax today AND call to verify we have it Jelena Oleary October 12, 2024 11:10 AM Allergies As of Date: 10/07/2024 Noted Allergy Reaction AMOXICILLIN-POT CLAVULANATE 12/23/2023 10 - Anaphylaxis 7 - Swelling METFORMIN 04/26/2023 6 - Diarrhea LISINOPRIL 04/24/2023 3 - Cough SULFAMETHOXAZOLE-TRIM ETHOPRIM 10/20/2009 2 - Rash 4 - Hives 7 - Swelling Date Reviewed: 04/27/2024 Reviewed by: Cristobal Ames RN - Fully Assessed Reason for Visit: Patient Update [1234] Cmt: Care star requesting information Prescriptions as of 10/12/2024 - albuterol HFA (PROVENTIL HFA, VENTOLIN HFA) 90 mcg/actuation inhaler Inhale 2 Puffs as instructed every 4 hours as needed for wheezing/shortness of breath. - Insulin Syringe-Needle U-100 0.5 mL 31 gauge x 5/16 Inject 1 Each subcutaneously every 24 hours. Give with each insulin administration. - empagliflozin (JARDIANCE) 10 mg tablet Take 1 tablet by mouth daily with breakfast. - metFORMIN (GLUCOPHAGE) 1,000 mg tablet Take 1 tablet by mouth two times a day. - levothyroxine (SYNTHROID) 125 mcg tablet Take 1 tablet by mouth daily before breakfast. - metoprolol succinate ER (TOPROL XL) 25 mg 24 hr tablet Take 1 tablet by mouth once daily. - Insulin Whitman, Disposable, (PEN NEEDLE) 32 gauge x 5/32 Inject 1 Each subcutaneously every 24 hours. Give with each insulin administration. - dulaglutide (TRULICITY) 0.75 mg/0.5 mL pen injector Inject 0.75 mg subcutaneously one time a week. Monitor bs closely and keep food log - insulin glargine 100 unit/mL (3 mL) Inject 20 Units subcutaneously daily at bedtime. Inject 20 Units subcutaneously as directed - mirtazapine (REMERON) 15 mg tablet Take 1 tablet by mouth daily at bedtime. - traZODone (DESYREL) 100 mg tablet Take 1 tablet by mouth daily at bedtime. - rosuvastatin (CRESTOR) 10 mg tablet Take 1 tablet by mouth daily at bedtime. - spironolactone (ALDACTONE) 25 mg tablet Take 1 tablet by mouth once daily. - aspirin, enteric coated (ADULT LOW DOSE ASPIRIN) 81 mg EC tablet Take 1 tablet by mouth once daily. - ASA/acetaminophen/caf feine/pot (GOODY'S HEADACHE POWDER ORAL) Take 1 Packet by mouth as needed (headaches). - sacubitril-valsartan (ENTRESTO) 24-26 mg tablet Take 1 tablet by mouth two times a day. - furosemide (LASIX) 40 mg tablet Take 1 tablet by mouth once daily. Patient should start on April 16, 2024. - magnesium, aluminum hydroxide (MYLANTA ORAL) Take 5 mL by mouth two times a day as needed (heartburn). - nystatin (MYCOSTATIN) 100,000 unit/mL suspension Take 100,000 Units by mouth four times daily. Swish and swallow. 5 ml 4times daily Meds Comments as of 10/23/2023: 10/23/23 The medications are managed by this patient by: PATIENT Calixto Bhavya OA Problem List As Of Date 10/07/2024 Noted Resolved CAD (coronary artery disease) [I25.10] 09/04/2014 S/P coronary artery stent placement [Z95.5] 09/04/2014 Left bundle branch block (LBBB) on electrocardi*09/04/20 14 H/O myocardial infarction, greater than 8 weeks*09/04/2014 Tobacco abuse [Z72.0] 09/04/2014 Obesity [E66.9] 09/04/2014 Status post insertion of drug-eluting stent int*11/17/2016 Non morbid obesity due to excess calories [E66.*11/17/2016 Obesity, Class III, BMI >= 40 [E66.01] 05/11/2023 Hypercholesteremia [E78.00] HTN (hypertension) [I10] Schizoaffective disorder, bipolar type ([facility]) [F*09/10/2023 11/02/2023 Cocaine dependence in remission ([facility]) [F14.21] 09/10/2023 Hypothyroidism [E03.9] Diabetes mellitus ([facility]) [E11.9] Cataract, nuclear sclerotic, both eyes [H25.13] 10/23/2023 Hyperopia of both eyes [H52.03] 10/23/2023 Regular astigmatism of both eyes [H52.223] 10/23/2023 Presbyopia of both eyes [H52.4] 10/23/2023 Mood disorder ([facility]) [F39] 11/02/2023 Acute systolic HF (heart failure) ([facility]) [I50.21]04/13/2024 Acute on chronic systolic (congestive) heart fa*04/13/2024 04/15/2024 Atrial fib/flutte (more content not included)... Normal [facility] [place] 10-04-2024 CNPN Telephone (ARESCL) SALMAVENKAT Millan ([id number]) 1965 M Date Time Provider Department 10/04/24 YULIET FONG ARETISH During your visit today, we recorded the following information about you: Lashanda Olearykki 10/04/2024 10:18 AM Signed No Show Documentation Venkat Lynch Salma no showed for an appointment on 10/04/24 with Yuliet Fong DO at 1pm. He was scheduled for f/u. I called and spoke with the patient regarding his missed appointment. Venkat stated the reason that he missed his appointment was because illness. AND he doesn't feel like driving Resources discussed/offered to patient: n/a No show determined to be fault of patient: Yes This is the patients first no show in the last 12 months. Patient was rescheduled for he will call to reschedule. Letter mailed : Yes Is this the Third or Fourth No Show? Patricia Jelena Oleary October 04, 2024 10:17 AM Allergies As of Date: 10/04/2024 Noted Allergy Reaction AMOXICILLIN-POT CLAVULANATE 12/23/2023 10 - Anaphylaxis 7 - Swelling METFORMIN 04/26/2023 6 - Diarrhea LISINOPRIL 04/24/2023 3 - Cough SULFAMETHOXAZOLE-TRIM ETHOPRIM 10/20/2009 2 - Rash 4 - Hives 7 - Swelling Date Reviewed: 04/27/2024 Reviewed by: Cristobal Ames, RN - Fully Assessed Reason for Visit: No Show [1558] Cmt: No show 1st Prescriptions as of 10/04/2024 - mirtazapine (REMERON) 15 mg tablet Take 1 tablet by mouth daily at bedtime. - traZODone (DESYREL) 100 mg tablet Take 1 tablet by mouth daily at bedtime. - insulin glargine 100 unit/mL (3 mL) Inject 20 Units subcutaneously daily at bedtime. Inject 20 Units subcutaneously as directed - metoprolol succinate ER (TOPROL XL) 25 mg 24 hr tablet Take 1 tablet by mouth once daily. - Insulin Whitman, Disposable, (PEN NEEDLE) 32 gauge x 5/32 Inject 1 Each subcutaneously every 24 hours. Give with each insulin administration. - dulaglutide (TRULICITY) 0.75 mg/0.5 mL pen injector Inject 0.75 mg subcutaneously one time a week. Monitor bs closely and keep food log - rosuvastatin (CRESTOR) 10 mg tablet Take 1 tablet by mouth daily at bedtime. - spironolactone (ALDACTONE) 25 mg tablet Take 1 tablet by mouth once daily. - aspirin, enteric coated (ADULT LOW DOSE ASPIRIN) 81 mg EC tablet Take 1 tablet by mouth once daily. - albuterol HFA (PROVENTIL HFA, VENTOLIN HFA) 90 mcg/actuation inhaler Inhale 2 Puffs as instructed every 4 hours as needed for wheezing/shortness of breath. - Insulin Syringe-Needle U-100 0.5 mL 31 gauge x 5/16 Inject 1 Each subcutaneously every 24 hours. Give with each insulin administration. - empagliflozin (JARDIANCE) 10 mg tablet Take 1 tablet by mouth daily with breakfast. - metFORMIN (GLUCOPHAGE) 1,000 mg tablet Take 1 tablet by mouth two times a day. - levothyroxine (SYNTHROID) 125 mcg tablet Take 1 tablet by mouth daily before breakfast. - ASA/acetaminophen/caf feine/pot (GOODY'S HEADACHE POWDER ORAL) Take 1 Packet by mouth as needed (headaches). - sacubitril-valsartan (ENTRESTO) 24-26 mg tablet Take 1 tablet by mouth two times a day. - furosemide (LASIX) 40 mg tablet Take 1 tablet by mouth once daily. Patient should start on April 16, 2024. - magnesium, aluminum hydroxide (MYLANTA ORAL) Take 5 mL by mouth two times a day as needed (heartburn). - nystatin (MYCOSTATIN) 100,000 unit/mL suspension Take 100,000 Units by mouth four times daily. Swish and swallow. 5 ml 4times daily Meds Comments as of 10/23/2023: 02/02/24 The medications are managed by this patient by: PATIENT Calixto Latif, OA Problem List As Of Date 10/04/2024 Noted Resolved CAD (coronary artery disease) [I25.10] 09/04/2014 S/P coronary artery stent placement [Z95.5] 09/04/2014 Left bundle branch block (LBBB) on electrocardi*09/04/20 14 H/O myocardial infarction, greater than 8 weeks*09/04/2014 Tobacco abuse [Z72.0] 09/04/2014 Obesity [E66.9] 09/04/2014 Status post insertion of drug-eluting stent int*11/17/2016 Non morbid obesity due to excess calories [E66.*11/17/2016 Obesity, Class III, BMI >= 40 [E66.01] 05/11/2023 Hypercholesteremia [E78.00] HTN (hypertension) [I10] Schizoaffective disorder, bipolar type (HCC) [F*09/10/2023 11/02/2023 Cocaine dependence in remission (HCC) [F14.21] 09/10/2023 Hypothyroidism [E03.9] Diabetes mellitus (HCC) [E11.9] Cataract, nuclear sclerotic, both eyes [H25.13] 10/23/2023 Hyperopia of both eyes [H52.03] 10/23/2023 Regular astigmatism of both eyes [H52.223] 10/23/2023 Presbyopia of both eyes [H52.4] 10/23/2023 Mood disorder (HCC) [F39] 11/02/2023 Acute systolic HF (heart failure) (HCC) [I50.21]04/13/2024 Acute on chronic systolic (congestive) heart fa*04/13/2024 04/15/2024 Atrial fib/flutter, transient (HCC) [I48.91, I4*04/14/2024 Mixed hyperlipidemia [E78.2] 04/14/2024 Morbid obesity (HCC) [E66.01] 04/14/2024 Essential hypertension [I10] 04/14/2024 Chron (more content not included)... Normal [facility] 12 Lead EKGon 08-31-2024 12 Lead EKG [facility] Cardiovascular Services [address] [place] [address] 12 Lead EKG 08/31/24 0845 MR#: [id number] Acct: [id number] Name: VENKAT MARSH Rep #: [id number] : 1965 59 From: Yari Black MD Attending Dr: Status: DEP ER Ordering Dr: Terry Gould MD Date: 08/31/24 Location: ED Sex: M C Admitted: Test Reason : Blood Pressure : */* mmHG Vent. Rate : 79 BPM Atrial Rate : 79 BPM P-R Int : 256 ms QRS Dur : 150 ms QT Int : 426 ms P-R-T Axes : 62 14 137 degrees QTcB Int : 488 ms Sinus rhythm with 1st degree A-V block Left bundle branch block Abnormal ECG Confirmed by KUMAR ALONSO, AL ([id number]), editor index HOMA CUEVA ([id number]) on 09/07/2024 2:00:19 PM Referred By: Confirmed By: AL BLACK MD 09/07/24 1400 Date Yari Black MD CC: Dr. Terry Gould MD; No Primary Care Physician Signed Normal [facility] Absolute neutrophil countOrd ered By: Terry Gould on 08-31-2024 Neutrophils (Bld) [#/Vol] 3.6 10*3/uL 2.0-7.7 [facility] Albumin to globulin ratioOrd ered By: Terry Gould on 08-31-2024 Albumin/Globulin [Mass ratio] 0.9 {ratio} 0.9-2.4 [facility] BNP (brain natriuretic pepti de measurement)Ordered By: Terry Gould on 08-31-2024 Natriuretic peptide B (Bld) [Mass/Vol] 124.7 pg/mL High 0-100 [facility] BNP,B-Type NATRIURETIC PEPTI Keith 08-31-2024 Natriuretic peptide B (Bld) [Mass/Vol] 124.7 pg/mL High 0-100 [facility] Comment on above: Performed By: #### L 503.6620, L100.0100, L503.6005, L500.4050, L501.4020 ####[facility] [address] [place], [address] Basophil percentageOrdered B y: Terry Gould on 08-31-2024 Basophils/100 WBC (Bld) 0.4 % 0-1 [facility] Bedside Glucoseon 08-31-2024 FINGERSTICK GLU 191 mg/dL High 74-106 [facility] Comment on above: Result Comment: ANGEL BASSETT OF PATIENT CARE PER NURSING PROTOCOL Performed By: #### L 501.080 ####[facility] [address] [place], [address] Bilirubin, totalOrdered By: Terry Gould on 08-31-2024 Bilirubin [Mass/Vol] 0.30 mg/dL 0.20-1.00 [facility] Comment on above: For patients on eltr ombopag therapy, use of Dimension [place] TBIL is not recommended. Blood urea nitrogen (BUN)/cr eatinine ratioOrdered By: Terry Gould on 08-31-2024 Urea nitrogen/Creatinine [Mass ratio] 11.1 mg/mg 10-20 [facility] CBC W/Diff, Automatedon 08-21 Absolute Lymph 4.29 X10 3/uL Normal 0.83-4.51 [facility] Comment on above: Performed By: #### L 503.6620, L100.0100, L503.6005, L500.4050, L501.4020 ####[facility] [address] [place], [address] Absolute Neut 3.6 X10 3/uL Normal 2.0-7.7 [facility] Comment on above: Performed By: #### L 503.6620, L100.0100, L503.6005, L500.4050, L501.4020 ####[facility] [address] [place], [address] Basophils/100 WBC (Bld) 0.4 % Normal 0-1 [facility] Comment on above: Performed By: #### L 503.6620, L100.0100, L503.6005, L500.4050, L501.4020 ####[facility] [address] [place], [address] Eosinophils/100 WBC (Bld) 9.7 % High 0-5 [facility] Comment on above: Performed By: #### L 503.6620, L100.0100, L503.6005, L500.4050, L501.4020 ####[facility] [address] [place], [address] Erythrocyte distribution width (RBC) [Ratio] 12.3 % Normal 11.6-14.6 [facility] Comment on above: Performed By: #### L 503.6620, L100.0100, L503.6005, L500.4050, L501.4020 ####[facility] [address] [place], [address] Hematocrit (Bld) [Volume fraction] 52.9 % Normal 40-54 [facility] Comment on above: Performed By: #### L 503.6620, L100.0100, L503.6005, L500.4050, L501.4020 ####[facility] [address] [place], [address] Hemoglobin (Bld) [Mass/Vol] 17.8 g/dL High 13.0-16.5 [facility] Comment on above: Performed By: #### L 503.6620, L100.0100, L503.6005, L500.4050, L501.4020 ####[facility] [address] [place], [address] IG% 0.400 Normal 0.0-0.9 [facility] Comment on above: Result Comment: IG% - Immature Granulocytes (promyelocytes, myelocytes and metamyelocytes) > 1% indicates that a LEFT SHIFT is Present. Performed By: #### L 503.6620, L100.0100, L503.6005, L500.4050, L501.4020 ####[facility] [address] [place], [address] Lymphocytes/100 WBC (Bld) 44.4 % High 19-41 [facility] Comment on above: Performed By: #### L 503.6620, L100.0100, L503.6005, L500.4050, L501.4020 ####[facility] [address] [place], [address] MCH (RBC) [Entitic mass] 31.4 pg Normal 27.0-32.0 [facility] Comment on above: Performed By: #### L 503.6620, L100.0100, L503.6005, L500.4050, L501.4020 ####[facility] [address] [place], [address] MCHC (RBC) [Mass/Vol] 33.6 g/dL Normal 32-36 [facility] Comment on above: Performed By: #### L 503.6620, L100.0100, L503.6005, L500.4050, L501.4020 ####[facility] [address] [place], [address] MCV (RBC) [Entitic vol] 93.5 fL Normal 80-94 [facility] Comment on above: Performed By: #### L 503.6620, L100.0100, L503.6005, L500.4050, L501.4020 ####[facility] [address] [place], [address] Monocytes/100 WBC (Bld) 7.8 % Normal 0-10 [facility] Comment on above: Performed By: #### L 503.6620, L100.0100, L503.6005, L500.4050, L501.4020 ####[facility] [address] [place], [address] Neutrophils/100 WBC (Bld) 37.3 % Low 47-70 [facility] Comment on above: Performed By: #### L 503.6620, L100.0100, L503.6005, L500.4050, L501.4020 ####[facility] [address] [place], [address] Nucleated RBC (Bld) [#/Vol] 0 10*3/uL Normal 0-5 [facility] Comment on above: Performed By: #### L 503.6620, L100.0100, L503.6005, L500.4050, L501.4020 ####[facility] [address] [place], [address] Platelet mean volume (Bld) [Entitic vol] 9.9 fL Normal 6.2-12.0 [facility] Comment on above: Performed By: #### L 503.6620, L100.0100, L503.6005, L500.4050, L501.4020 ####[facility] [address] [place], [address] Platelets (Bld) [#/Vol] 255 10*3/uL Normal 150-450 [facility] Comment on above: Performed By: #### L 503.6620, L100.0100, L503.6005, L500.4050, L501.4020 ####[facility] [address] [place], [address] RBC (Bld) [#/Vol] 5.66 10*6/uL Normal 4.6-6.2 [facility] Comment on above: Performed By: #### L 503.6620, L100.0100, L503.6005, L500.4050, L501.4020 ####[facility] [address] [place], [address] RDW SD 42.4 fl Normal 35.1-43.9 [facility] Comment on above: Performed By: #### L 503.6620, L100.0100, L503.6005, L500.4050, L501.4020 ####[facility] [address] [place], [address] WBC (Bld) [#/Vol] 9.7 10*3/uL Normal 4.4-11.0 [facility] Comment on above: Performed By: #### L 503.6620, L100.0100, L503.6005, L500.4050, L501.4020 ####[facility] [address] [place], [address] Carbon dioxide measurementOr dered By: Terry Gould on 08-31-2024 CO2 [Moles/Vol] 27.0 mmol/L 21.0-32.0 [facility] Chest PA and Lateralon 08-31 Chest PA and Lateral [facility] Imaging Services [address] [place] [address] Chest PA and Lateral MR#: [id number] Acct: [id number] Name: VENKAT MARSH Rep #: [id number] : 1965 M 59 From: Maria C keller MD PCP: Care Physician,No Primary Status: [facility] ER Study: Chest PA and Lateral Date of Exam: 08/31/24 Exam# [id number] Ordering Dr: Terry Gould MD [id number] HISTORY: Shortness of breath, nonproductive cough, wheezing. TECHNIQUE: XR Chest 2 Views. COMPARISON: 01/27/2012. FINDINGS: CARDIOMEDIASTINAL BORDERS: Mediastinal contour unremarkable with calcification of the aortic knob. Cardiac silhouette within normal limits in size. LUNGS: Mild linear opacities in the mid to lower lungs. PLEURA: No pleural effusion or pneumothorax seen. OSSEOUS STRUCTURES: Chronic right lateral eighth rib fracture. RAD/Chest PA and Lateral IMPRESSION: Mild basilar atelectasis or inflammation. Electronically Signed: Maria C Ballard MD at 9:56 EST , CC: Dr. Terry Gould MD; No Primary Care Physician Tearoom Host/Hostess: Signed Normal [facility] Chloride measurementOrdered By: Terry Gould on 08-31-2024 Chloride [Moles/Vol] 105 mmol/L 98-107 [facility] Comprehensive Metabolic Prof ilon 08-31-2024 Albumin [Mass/Vol] 3.4 g/dL Normal 3.2-5.0 [facility] Comment on above: Order Comment: 'TROP ' Serial specimen #1, #2 or #3: 1 Performed By: #### L 503.6620, L100.0100, L503.6005, L500.4050, L501.4020 ####[facility] [address] [place], [address] Albumin/Globulin [Mass ratio] 0.9 {ratio} Normal 0.9-2.4 [facility] Comment on above: Order Comment: 'TROP ' Serial specimen #1, #2 or #3: 1 Performed By: #### L 503.6620, L100.0100, L503.6005, L500.4050, L501.4020 ####[facility] [address] [place], [address] ALK P 63 U/L Normal 45-117 [facility] Comment on above: Order Comment: 'TROP ' Serial specimen #1, #2 or #3: 1 Performed By: #### L 503.6620, L100.0100, L503.6005, L500.4050, L501.4020 ####[facility] [address] [place], [address] ALT [Catalytic activity/Vol] 25 U/L Normal 16-61 [facility] Comment on above: Order Comment: 'TROP ' Serial specimen #1, #2 or #3: 1 Performed By: #### L 503.6620, L100.0100, L503.6005, L500.4050, L501.4020 ####[facility] [address] [place], [address] AST [Catalytic activity/Vol] 14 U/L Low 15-37 [facility] Comment on above: Order Comment: 'TROP ' Serial specimen #1, #2 or #3: 1 Performed By: #### L 503.6620, L100.0100, L503.6005, L500.4050, L501.4020 ####[facility] [address] [place], [address] Bilirubin [Mass/Vol] 0.30 mg/dL Normal 0.20-1.00 [facility] Comment on above: Order Comment: 'TROP ' Serial specimen #1, #2 or #3: 1 Result Comment: For patients on eltrombopag therapy, use of Dimension [place] TBIL is not recommended. Performed By: #### L 503.6620, L100.0100, L503.6005, L500.4050, L501.4020 ####[facility] [address] [place], [address] BUN/CRE 11.1 RATIO Normal 10-20 [facility] Comment on above: Order Comment: 'TROP ' Serial specimen #1, #2 or #3: 1 Performed By: #### L 503.6620, L100.0100, L503.6005, L500.4050, L501.4020 ####[facility] [address] [place], [address] CA,Total 9.0 mg/dL Normal 8.5-10.1 [facility] Comment on above: Order Comment: 'TROP ' Serial specimen #1, #2 or #3: 1 Performed By: #### L 503.6620, L100.0100, L503.6005, L500.4050, L501.4020 ####[facility] [address] [place], [address] Chloride [Moles/Vol] 105 mmol/L Normal 98-107 [facility] Comment on above: Order Comment: 'TROP ' Serial specimen #1, #2 or #3: 1 Performed By: #### L 503.6620, L100.0100, L503.6005, L500.4050, L501.4020 ####[facility] [address] [place], [address] CO2 [Moles/Vol] 27.0 mmol/L Normal 21.0-32.0 [facility] Comment on above: Order Comment: 'TROP ' Serial specimen #1, #2 or #3: 1 Performed By: #### L 503.6620, L100.0100, L503.6005, L500.4050, L501.4020 ####[facility] [address] [place], [address] Creatinine [Mass/Vol] 1.35 mg/dL High 0.70-1.30 [facility] Comment on above: Order Comment: 'TROP ' Serial specimen #1, #2 or #3: 1 Result Comment: The validity of the calculated GFR GFRAA in patients over 70 years has not been determined. Clinical correlation is essential. Performed By: #### L 503.6620, L100.0100, L503.6005, L500.4050, L501.4020 ####[facility] [address] [place], [address] ECRCL 75.83 ml/min Normal [facility] Comment on above: Order Comment: 'TROP ' Serial specimen #1, #2 or #3: 1 Performed By: #### L 503.6620, L100.0100, L503.6005, L500.4050, L501.4020 ####[facility] [address] [place], [address] EST GFR - AA 69 mL/min Normal >60 [facility] Comment on above: Order Comment: 'TROP ' Serial specimen #1, #2 or #3: 1 Result Comment: Afri can [place] GFR Calc Performed By: #### L 503.6620, L100.0100, L503.6005, L500.4050, L501.4020 ####[facility] [address] [place], [address] GAP 6 Normal 5-15 [facility] Comment on above: Order Comment: 'TROP ' Serial specimen #1, #2 or #3: 1 Performed By: #### L 503.6620, L100.0100, L503.6005, L500.4050, L501.4020 ####[facility] [address] [place], [address] GFR/1.73 sq M.predicted among non-blacks MDRD (S/P/Bld) [Vol rate/Area] 57 mL/min/{1.73_m2} Low >60 [facility] Comment on above: Order Comment: 'TROP ' Serial specimen #1, #2 or #3: 1 Result Comment: Non- GFR Calc Performed By: #### L 503.6620, L100.0100, L503.6005, L500.4050, L501.4020 ####[facility] [address] [place], [address] Globulin (S) [Mass/Vol] 3.9 g/dL Normal 2.2-4.2 [facility] Comment on above: Order Comment: 'TROP ' Serial specimen #1, #2 or #3: 1 Performed By: #### L 503.6620, L100.0100, L503.6005, L500.4050, L501.4020 ####[facility] [address] [place], [address] Glucose [Mass/Vol] 182 mg/dL High 74-106 [facility] Comment on above: Order Comment: 'TROP ' Serial specimen #1, #2 or #3: 1 Result Comment: Fast ing Glucose result greater than or equal to 126 mg/dL suggests DIABETES MELLITUS per A.D.A. criteria. Performed By: #### L 503.6620, L100.0100, L503.6005, L500.4050, L501.4020 ####[facility] [address] [place], [address] Potassium [Moles/Vol] 4.3 mmol/L Normal 3.5-5.1 [facility] Comment on above: Order Comment: 'TROP ' Serial specimen #1, #2 or #3: 1 Performed By: #### L 503.6620, L100.0100, L503.6005, L500.4050, L501.4020 ####[facility] [address] [place], [address] Sodium [Moles/Vol] 138 mmol/L Normal 136-145 [facility] Comment on above: Order Comment: 'TROP ' Serial specimen #1, #2 or #3: 1 Performed By: #### L 503.6620, L100.0100, L503.6005, L500.4050, L501.4020 ####[facility] [address] [place], [address] T PROT 7.3 g/dL Normal 6.4-8.2 [facility] Comment on above: Order Comment: 'TROP ' Serial specimen #1, #2 or #3: 1 Performed By: #### L 503.6620, L100.0100, L503.6005, L500.4050, L501.4020 ####[facility] [address] [place], [address] Urea nitrogen [Mass/Vol] 15 mg/dL Normal 7-18 [facility] Comment on above: Order Comment: 'TROP ' Serial specimen #1, #2 or #3: 1 Performed By: #### L 503.6620, L100.0100, L503.6005, L500.4050, L501.4020 ####[facility] [address] [place], [address] Emergency Department Summary on 08-31-2024 Emergency Department Summary [facility] Medical Records Department [address] [place] [address] Emergency Department Summary 08/31/24 MR#: [id number] Acct: [id number] Name: VENKAT MARSH Rep #: [id number] : 1965 59 From: Terry Gould MD PCP: Care Physician,No Primary Status:REG ER Location: ED ADDENDUM by Dr. Terry Gould MD on 08/31/24 at 1241 EKG reveals a sinus rhythm first-degree AV block and left bundle branch block. This is unchanged from prior dated September 04, 2023. Rate of 79. UT interval is 206 ms. QRS duration is 100 ms. QT duration 426 ms. 08/31/24 1241 Cosigner Signature (if applicable): cc: No Primary Care Physician * Signed HPI History of Present Illness Chief Complaint: Shortness of Breath Detail of Chief Complaint: Nonproductive cough, shortness of breath no better after Z-Annika Informant: patient Onset/Context/Timing Onset: Days (August 23) Context: Sudden Onset Timing: Continuous and Waxes and wanes Quality: Dyspnea, dyspnea on exertion, nonproductive cough and wheezing Location: Respiratory Current Severity: Mild Maximum Severity: Moderate Worsened by: Activity Relieved by: Nothing Associated Symptoms Associated Symptoms: No fever or chills. And see HPI narrative Narrative Narrative: Patient is a 59-year-old male. He has history of type 2 diabetes on insulin, hypertension and hypothyroidism. He completed a course of azithromycin 2 days ago. He presents because he is no better. He is a smoker 1/2 pack/day. He has smoked for years. He states there was a 5-year period where he did not smoke. He states he was recently admitted to [facility] for congestive heart failure. He had a 4-day stay. He apparently has obstructive sleep apnea but has not gotten the machine yet. He states he is able to lie flat in bed. He sleeps with 1 pillow. He denies swelling of his feet or ankles. He denies fever, chills night sweats. He was treated at urgent care in [place]. They diagnosed him with bronchitis. His cough is nonproductive.He denies nasal congestion, postnasal drainage sore throat. He denies history of VTE. Denies leg pain, swelling discoloration. He denies pleuritic chest pain. He denies pain with breathing. He denies abdominal distention, nausea, vomiting or diarrhea. He denies dysuria, frequency, urgency or hematuria. Prior similar symptoms: Yes Recent Illness[facility]ati [facility] Medical History (Updated 08/31/24 @ 12:[address] Terry Gould MD) Congestive heart failure (CHF) BMI greater than 40 Obstructive sleep apnea Hypertension Type 2 diabetes mellitus with insulin therapy Home Medications ???Medication ???Instructions ???Recorded ???Last Taken ???Type aspirin 325 mg tablet 325 mg PO DAILY@0800 10/15/14 Unknown History levothyroxine 125 mcg tablet 125 mcg PO DAILY 10/15/14 Unknown History metoprolol tartrate 50 mg tablet 50 mg PO DAILY 10/15/14 Unknown History doxycycline hyclate 100 mg capsule 100 mg PO BID ##28 01/12/17 Unknown Rx albuterol sulfate 90 mcg/actuation 2 puff inhalation Q4H PRN PRN 08/31/24 Unknown Rx aerosol inhaler (Ventolin HFA) Wheezing ##1 prednisone 20 mg tablet 60 mg (3 x 20 mg) PO DAILY #15 08/31/24 Unknown Rx TABLETS Allergy/AdvReac Type Severity Reaction Status Date / Time Sulfa (Sulfonamide Allergy Swelling Verified 08/31/24 08:35 Antibiotics) sulfamethoxazole (From Allergy Swelling Verified 08/31/24 08:35 Bactrim) trimethoprim (From Bactrim) Allergy Swelling Verified 08/31/24 08:35 Social History (Updated 08/31/24 @ 08:[address] Terry Gould MD) household members: none Smoking Status: Current every day smoker tobacco type: cigarettes ROS ROS ED Constitutional Constitutional ED: Denies chills, fever(s), subjective, sweats or weight loss Eyes Eyes: Denies blurry vision, change in vision or diplopia ENT ENT ED: Denies ear pain, rhinorrhea or sore throat Cardiovascular Cardiovascular: Denies chest pain, orthopnea, palpitations, paroxysmal nocturnal dyspnea or racing heartbeat Respiratory/Chest Respiratory/Chest: Reports cough, dyspnea and dyspnea on exertion; Denies orthopnea, paroxysmal nocturnal dyspnea or sputum Gastrointestinal Gastrointestinal: Denies abdominal pain, diarrhea, melena, nausea or vomiting Genitourinary Genitourinary ED: Reports other Details: Does endorse nocturia. Uncertain if he has a history of BPH. ; Denies dysuria or urinary frequency Musculoskeletal Musculoskeletal: Denies arthralgias or myalgias Integumentary Denies rash Neurologic Neurologic: Denies headache(s), paresthesias or weakness Endocrine Endocrinology: Denies cold intolerance, heat intolerance, polydipsia or polyuria Hematologic/Lymphatic Hematologic/Lymphatic : Denies systems reviewed and no addt'l complain (more content not included)... Normal [facility] Eosinophil percentageOrdered By: Terryfrench Gould on 08-31-2024 Eosinophils/100 WBC (Bld) 9.7 % High 0-5 [facility] Erythrocyte distribution wid th (RBC) [Ratio]Ordered By: Terry Gould on 08-31-2024 Erythrocyte distribution width (RBC) [Entitic vol] 42.4 fL 35.1-43.9 [facility] Erythrocyte distribution wid th ratioOrdered By: Terry Gould on 08-31-2024 Erythrocyte distribution width (RBC) [Ratio] 12.3 % 11.6-14.6 [facility] Estimated glomerular filtrat ion rate (GFR) AmericanOrdered By: Terry Gould on 08-31-2024 Estimated GFR (MDRD) Amer 69 mL/min >60 [facility] Comment on above: GFR Calc Estimation of creatinine ailin aranceOrdered By: Terry Gould on 08-31-2024 Estimated Creatinine Clearance Calc 75.83 ml/min [facility] Glomerular filtration rate ( GFR) estimationOrdered By: Terry Gould on 08-31-2024 Estimated GFR (MDRD) Non-Af Amer 57 mL/min Low >60 [facility] Comment on above: Non- GFR Calc Glucose measurementOrdered B y: Terry Gould on 08-31-2024 Glucose [Mass/Vol] 182 mg/dL High 74-106 [facility] Comment on above: Fasting Glucose resu lt greater than or equal to 126 mg/dL suggests DIABETES MELLITUS per A.D.A. criteria. [facility] de[facility]dered By: Terry Gould on 08-31-2024 Bedside Glucose (Misc Panel) 191 mg/dL High 74-106 [facility] Comment on above: MANAGEMENT OF PATIEN T CARE PER NURSING PROTOCOL Hematocrit Auto (Bld) [Volum e fraction]Ordered By: Terry Gould on 08-31-2024 Hematocrit (Bld) [Volume fraction] 52.9 % 40-54 [facility] Hemoglobin measurementOrdere d By: Terry Gould on 08-31-2024 Hemoglobin (Bld) [Mass/Vol] 17.8 g/dL High 13.0-16.5 [facility] Immature granulocytes/100 WB C Auto (Bld)Ordered By: Terry Gould on 08-31-2024 Immature granulocytes/100 WBC (Bld) 0.400 % 0.0-0.9 [facility] Comment on above: IG% - Immature Granu locytes (promyelocytes, myelocytes and metamyelocytes) > 1% indicates that a LEFT SHIFT is Present. Influenza virus A and B and SARS-CoV-2 (COVID-19) and Respiratory syncytial virus RNAOrdered By: Terry Gould on 08-31-2024 SARS-CoV-2 (COVID-19) RNA SUSANNAH+probe Ql (Unsp spec) [facility] L501.4020on 08-31-2024 TROPONIN-I HS 24 pg/mL Normal 3.0-78.0 [facility] Comment on above: Order Comment: 'TROP ' Serial specimen #1, #2 or #3: 1 Result Comment: Plea se Note: New Test Units and Gender Specific Reference Ranges. For more information see Policy Stat Procedure [place] High Sensitivity Troponin (TNIH) and attachments. Performed By: #### L 503.6620, L100.0100, L503.6005, L500.4050, L501.4020 ####[facility] [id number] [place], [place], [id number] Laboratory - Chemistry and C hemistry - challengeOrdered By: Terry Gould on 08-31-2024 AST [Catalytic activity/Vol] 14 U/L Low 15-37 [facility] Lactic Acidon 08-31-2024 Lactate [Moles/Vol] 1.6 mmol/L Normal 0.4-1.9 [facility] Comment on above: Order Comment: Y Performed By: #### L 503.6620, L100.0100, L503.6005, L500.4050, L501.4020 ####[facility] [id number] [place], [address] Lactic acid measurementOrder ed By: Terry Gould on 08-31-2024 Lactate [Moles/Vol] 1.6 mmol/L 0.4-2.0 [facility] Lymphocytes Auto (Unsp spec) [#/Vol]Ordered By: Terry Gould on 08-31-2024 Lymphocytes (Bld) [#/Vol] 4.29 10*3/uL 0.83-4.51 [facility] Lymphocytes/100 WBC Auto (Un sp spec)Ordered By: Terry Gould on 08-31-2024 Lymphocytes/100 WBC (Bld) 44.4 % High 19-41 [facility] M100.678on 08-31-2024 M100.678 Pending SARS-CoV-2 (COVID 19) Negative INFLUENZA A Negative INFLUENZA B Negative RSV PCR Negative Normal [facility] Comment on above: Performed By: #### M 100.678 #### [facility] [address] [place], [place], [id number] MCV (mean corpuscular volume ) determinationOrdered By: Terry Gould on 08-31-2024 MCV (RBC) [Entitic vol] 93.5 fL 80-94 [facility] Mean corpuscular hemoglobin (MCH) determinationOrdered By: Terry Gould on 08-31-2024 MCH (RBC) [Entitic mass] 31.4 pg 27.0-32.0 [facility] Mean corpuscular hemoglobin concentration (MCHC) determinationOrdered By: Terry Gould on 08-31-2024 MCHC (RBC) [Mass/Vol] 33.6 g/dL 32-36 [facility] Mean platelet volume determi nationOrdered By: Terry Gould on 08-31-2024 Platelet mean volume (Bld) [Entitic vol] 9.9 fL 6.2-12.0 [facility] Monocyte percentageOrdered B y: Terry Gould on 08-31-2024 Monocytes/100 WBC (Bld) 7.8 % 0-10 [facility] Neutrophil percentageOrdered By: Terry Gould on 08-31-2024 Neutrophils/100 WBC (Bld) 37.3 % Low 47-70 [facility] Nucleated red blood cell per centageOrdered By: Terry Gould on 08-31-2024 Nucleated RBC/100 WBC (Bld) [Ratio] 0 % 0-5 [facility] Platelet countOrdered By: Ug french Gould on 08-31-2024 Platelets (Bld) [#/Vol] 255 10*3/uL 150-450 [facility] Potassium measurementOrdered By: Terry Gould on 08-31-2024 Potassium [Moles/Vol] 4.3 mmol/L 3.5-5.1 [facility] RBC Auto (Bld) [#/Vol]Ordere d By: Terry Gould on 08-31-2024 RBC (Bld) [#/Vol] 5.66 10*6/uL 4.6-6.2 [facility] Serum anion gap measurementO rdered By: Terry Gould on 08-31-2024 Anion gap [Moles/Vol] 6 mmol/L 5-15 [facility] Serum globulin measurementOr dered By: Terry Gould on 08-31-2024 Globulin (S) [Mass/Vol] 3.9 g/dL 2.2-4.2 [facility] Serum or plasma alanine umana otransferase (ALT) measurementOrdered By: Terry Gould on 08-31-2024 ALT [Catalytic activity/Vol] 25 U/L 16-61 [facility] Serum or plasma albumin greer urement (mass/volume)Ordered By: Terry Gould on 08-31-2024 Albumin [Mass/Vol] 3.4 g/dL 3.2-5.0 [facility] Serum or plasma alkaline hernan sphatase measurementOrdered By: Terry Gould on 08-31-2024 ALP [Catalytic activity/Vol] 63 U/L 45-117 [facility] Serum or plasma calcium greer urement (mass/volume)Ordered By: Terry oGuld on 08-31-2024 Calcium [Mass/Vol] 9.0 mg/dL 8.5-10.1 [facility] Serum or plasma creatinine m easurement (mass/volume)Ordered By: Terry Gould on 08-31-2024 Creatinine [Mass/Vol] 1.35 mg/dL High 0.70-1.30 [facility] Comment on above: The validity of the calculated GFR & GFRAA in patients over 70 years has not been determined. Clinical correlation is essential. Serum or plasma urea nitroge n measurement (mass/volume)Ordered By: Terry Gould on 08-31-2024 Urea nitrogen [Mass/Vol] 15 mg/dL 7-18 [facility] Sodium levelOrdered By: Terry Gould on 08-31-2024 Sodium [Moles/Vol] 138 mmol/L 136-145 [facility] Total proteinOrdered By: Terry Gould on 08-31-2024 Protein [Mass/Vol] 7.3 g/dL 6.4-8.2 [facility] Troponin IOrdered By: Terry lovell on 08-31-2024 Troponin I High Sensitivity 24 pg/mL 3.0-78.0 [facility] Comment on above: Please Note: New Michele t Units and Gender Specific Reference Ranges. For more information see Policy Stat Procedure [place] High Sensitivity Troponin (TNIH) and attachments. White blood cell (WBC) count Ordered By: Terry Gould on 08-31-2024 WBC (Bld) [#/Vol] 9.7 10*3/uL 4.4-11.0 [facility] CNPDeena 07-25-2024 CNPN Telephone ([place]) VENKAT MARSH ([id number]) 1965 M Date Time Provider Department 07/25/24 GAVIN BETANCUR During your visit today, we recorded the following information about you: Bakari Dumont 07/25/2024 4:09 PM Signed Patient called in stating his insulin froze in the fridge patient is unsure if he can use it. Also said when he picked up his insulin he thought it was suppose to be the pen not the vial he not sure of how to use them. Patient would like a call back with an update. Bakari Dumont Housekeeping Worker I July 25, 2024 4:09 PM Gavin Betancur DO 07/29/2024 4:57 PM Signed Hi, can we clarify if the patient is taking his insulin regularly? As far as I can tell, there have been no recent updates to the patient's insulin orders, so if he had a pen previously, he should have received another pen. I can send a new order now, but will also consult diabetes education for further help. Bakari Dumont 08/01/2024 11:49 AM Signed Called patient to find out if he was taking his insulin regularly. Patient stated he was but he had questions regarding his insulin that was frozen and if he used it what would happen. Patient stated he has been taking his insulin once a week. Transferred patient over to Pharm D to answer his questions. Bakari Dumont Housekeeping Worker I August 01, 2024 11:48 AM Sharon Ponce RPh 08/01/2024 11:53 AM Signed Spoke with patient and counseled that insulin should not be frozen and that he should not use as it is likely not going to be effect. Discussed with patient on the phone who read back instructions and verbalized understanding. Sharon Ponce RPh Allergies As of Date: 07/25/2024 Noted Allergy Reaction AMOXICILLIN-POT CLAVULANATE 12/23/2023 10 - Anaphylaxis 7 - Swelling METFORMIN 04/26/2023 6 - Diarrhea LISINOPRIL 04/24/2023 3 - Cough SULFAMETHOXAZOLE-TRIM ETHOPRIM 10/20/2009 2 - Rash 4 - Hives 7 - Swelling Date Reviewed: 04/27/2024 Reviewed by: Cristobal Ames RN - Fully Assessed Reason for Visit: Medication Problem [65] Cmt: Insulin froze Primary Visit Diagnosis:Uncontrolle d type 2 diabetes mellitus with hyperglycemia (HCC) [E11.65] Order(s):CONSULT TO DIABETES EDUCATION DSME [[id number]] Order #: [id number]: 2 FUTURE insulin glargine 100 unit/mL (3 mL)Inject 20 Units subcutaneously daily at bedtime. Inject 20 Units subcutaneously as directedDisp: 3 mLRfl: 2 Prescriptions as of 08/02/2024 - insulin glargine 100 unit/mL (3 mL) Inject 20 Units subcutaneously daily at bedtime. Inject 20 Units subcutaneously as directed - metoprolol succinate ER (TOPROL XL) 25 mg 24 hr tablet Take 1 tablet by mouth once daily. - Insulin Whitman, Disposable, (PEN NEEDLE) 32 gauge x 5/32 Inject 1 Each subcutaneously every 24 hours. Give with each insulin administration. - dulaglutide (TRULICITY) 0.75 mg/0.5 mL pen injector Inject 0.75 mg subcutaneously one time a week. Monitor bs closely and keep food log - rosuvastatin (CRESTOR) 10 mg tablet Take 1 tablet by mouth daily at bedtime. - spironolactone (ALDACTONE) 25 mg tablet Take 1 tablet by mouth once daily. - mirtazapine (REMERON) 15 mg tablet Take 1 tablet by mouth daily at bedtime. - aspirin, enteric coated (ADULT LOW DOSE ASPIRIN) 81 mg EC tablet Take 1 tablet by mouth once daily. - albuterol HFA (PROVENTIL HFA, VENTOLIN HFA) 90 mcg/actuation inhaler Inhale 2 Puffs as instructed every 4 hours as needed for wheezing/shortness of breath. - Insulin Syringe-Needle U-100 0.5 mL 31 gauge x 5/16 Inject 1 Each subcutaneously every 24 hours. Give with each insulin administration. - empagliflozin (JARDIANCE) 10 mg tablet Take 1 tablet by mouth daily with breakfast. - metFORMIN (GLUCOPHAGE) 1,000 mg tablet Take 1 tablet by mouth two times a day. - levothyroxine (SYNTHROID) 125 mcg tablet Take 1 tablet by mouth daily before breakfast. - ASA/acetaminophen/caf feine/pot (GOODY'S HEADACHE POWDER ORAL) Take 1 Packet by mouth as needed (headaches). - sacubitril-valsartan (ENTRESTO) 24-26 mg tablet Take 1 tablet by mouth two times a day. - furosemide (LASIX) 40 mg tablet Take 1 tablet by mouth once daily. Patient should start on April 16, 2024. - magnesium, aluminum hydroxide (MYLANTA ORAL) Take 5 mL by mouth two times a day as needed (heartburn). - nystatin (MYCOSTATIN) 100,000 unit/mL suspension Take 100,000 Units by mouth four times daily. Swish and swallow. 5 ml 4times daily Meds Comments as of 10/23/2023: 10/23/23 The medications are managed by this patient by: PATIENT OPHELIA Crooks Problem List As Of Date 07/25/2024 Noted Resolved CAD (coronary artery disease) [I25.10] 09/04/2014 S/P coronary artery stent placement [Z95.5] 09/04/2014 Left bundle branch block (LBBB) on electrocardi*09/04/20 14 H/O myocardial infarction, gr (more content not included)... Normal [facility] 07-21-2024 [facility] Telephone ([place]) VENKAT MARSH ([id number]) 1965 M Date Time Provider Department 07/21/24 GAVIN BETANCUR During your visit today, we recorded the following information about you: Bakari Dumont 07/21/2024 10:28 AM Signed LVM for patient to give us a call back regarding the message he left for us to give him a call. Bakari Dumont Housekeeping Worker I July 21, 2024 10:27 AM Allergies As of Date: 07/21/2024 Noted Allergy Reaction AMOXICILLIN-POT CLAVULANATE 12/23/2023 10 - Anaphylaxis 7 - Swelling METFORMIN 04/26/2023 6 - Diarrhea LISINOPRIL 04/24/2023 3 - Cough SULFAMETHOXAZOLE-TRIM ETHOPRIM 10/20/2009 2 - Rash 4 - Hives 7 - Swelling Date Reviewed: 04/27/2024 Reviewed by: Cristobal Ames RN - Fully Assessed Reason for Visit: Returning Patient's Call [[id number]] Prescriptions as of 07/25/2024 - rosuvastatin (CRESTOR) 10 mg tablet Take 1 tablet by mouth daily at bedtime. - spironolactone (ALDACTONE) 25 mg tablet Take 1 tablet by mouth once daily. - mirtazapine (REMERON) 15 mg tablet Take 1 tablet by mouth daily at bedtime. - aspirin, enteric coated (ADULT LOW DOSE ASPIRIN) 81 mg EC tablet Take 1 tablet by mouth once daily. - insulin glargine 100 unit/mL (3 mL) Inject 20 Units subcutaneously once daily. - albuterol HFA (PROVENTIL HFA, VENTOLIN HFA) 90 mcg/actuation inhaler Inhale 2 Puffs as instructed every 4 hours as needed for wheezing/shortness of breath. - Insulin Whitman, Disposable, (PEN NEEDLE) 32 gauge x 5/32 Inject 1 Each subcutaneously every 24 hours. Give with each insulin administration. - Insulin Syringe-Needle U-100 0.5 mL 31 gauge x 5/16 Inject 1 Each subcutaneously every 24 hours. Give with each insulin administration. - empagliflozin (JARDIANCE) 10 mg tablet Take 1 tablet by mouth daily with breakfast. - metFORMIN (GLUCOPHAGE) 1,000 mg tablet Take 1 tablet by mouth two times a day. - levothyroxine (SYNTHROID) 125 mcg tablet Take 1 tablet by mouth daily before breakfast. - dulaglutide (TRULICITY) 0.75 mg/0.5 mL pen injector Inject 0.75 mg subcutaneously one time a week. Monitor bs closely and keep food log - ASA/acetaminophen/caf feine/pot (GOODY'S HEADACHE POWDER ORAL) Take 1 Packet by mouth as needed (headaches). - metoprolol succinate ER (TOPROL XL) 25 mg 24 hr tablet Take 1 tablet by mouth once daily. - sacubitril-valsartan (ENTRESTO) 24-26 mg tablet Take 1 tablet by mouth two times a day. - furosemide (LASIX) 40 mg tablet Take 1 tablet by mouth once daily. Patient should start on April 16, 2024. - magnesium, aluminum hydroxide (MYLANTA ORAL) Take 5 mL by mouth two times a day as needed (heartburn). - nystatin (MYCOSTATIN) 100,000 unit/mL suspension Take 100,000 Units by mouth four times daily. Swish and swallow. 5 ml 4times daily Meds Comments as of 10/23/2023: 10/23/23 The medications are managed by this patient by: PATIENT OPHELIA Crooks Problem List As Of Date 07/21/2024 Noted Resolved CAD (coronary artery disease) [I25.10] 09/04/2014 S/P coronary artery stent placement [Z95.5] 09/04/2014 Left bundle branch block (LBBB) on electrocardi*09/04/20 14 H/O myocardial infarction, greater than 8 weeks*09/04/2014 Tobacco abuse [Z72.0] 09/04/2014 Obesity [E66.9] 09/04/2014 Status post insertion of drug-eluting stent int*11/17/2016 Non morbid obesity due to excess calories [E66.*11/17/2016 Obesity, Class III, BMI >= 40 [E66.01] 05/11/2023 Hypercholesteremia [E78.00] HTN (hypertension) [I10] Schizoaffective disorder, bipolar type ([facility]) [F*09/10/2023 11/02/2023 Cocaine dependence in remission ([facility]) [F14.21] 09/10/2023 Hypothyroidism [E03.9] Diabetes mellitus ([facility]) [E11.9] Cataract, nuclear sclerotic, both eyes [H25.13] 10/23/2023 Hyperopia of both eyes [H52.03] 10/23/2023 Regular astigmatism of both eyes [H52.223] 10/23/2023 Presbyopia of both eyes [H52.4] 10/23/2023 Mood disorder ([facility]) [F39] 11/02/2023 Acute systolic HF (heart failure) ([facility]) [I50.21]04/13/2024 Acute on chronic systolic (congestive) heart fa*04/13/2024 04/15/2024 Atrial fib/flutter, transient (HCC) [I48.91, I4*04/14/2024 Mixed hyperlipidemia [E78.2] 04/14/2024 Morbid obesity (HCC) [E66.01] 04/14/2024 Essential hypertension [I10] 04/14/2024 Chronic HFrEF (heart failure with reduced eject*04/14/2024 Typical atrial flutter (HCC) [I48.3] 04/15/2024 Encounter Status:Closed by BAKARI DUMONT on 07/25/24 [facility] 06-06-2024 CNPN Telephone (AGCARDPOB ) VENKAT MARSH ([id number]) 1965 M Date Time Provider Department 06/06/24 YOUSUF PONCE During your visit today, we recorded the following information about you: Sandra Abbasi LPN 06/06/2024 8:31 AM Signed ----- Message from Yousuf Ponce MD sent at 06/06/2024 8:30 AM EDT ----- Can you please let Mr. Marsh know his CBC revealed mildly elevated white count and elevated hemoglobin level. I would recommend he follow up with his PCP in this regards. Thanks, MD Ayleen Inman Jennifer, LPN 06/06/2024 8:32 AM Signed Spoke with patient about test results and recommendation to follow up with PCP. Patient verbalizes understanding and is agreeable. Sandra Abbasi LPN Allergies As of Date: 06/06/2024 Noted Allergy Reaction AMOXICILLIN-POT CLAVULANATE 12/23/2023 10 - Anaphylaxis 7 - Swelling METFORMIN 04/26/2023 6 - Diarrhea LISINOPRIL 04/24/2023 3 - Cough SULFAMETHOXAZOLE-TRIM ETHOPRIM 10/20/2009 2 - Rash 4 - Hives 7 - Swelling Date Reviewed: 04/27/2024 Reviewed by: Cristobal Ames RN - Fully Assessed Reason for Visit: Results [95] Prescriptions as of 06/06/2024 - ASA/acetaminophen/caf feine/pot (GOODY'S HEADACHE POWDER ORAL) Take 1 Packet by mouth as needed (headaches). - spironolactone (ALDACTONE) 25 mg tablet Take 1 tablet by mouth once daily. - dulaglutide (TRULICITY) 0.75 mg/0.5 mL pen injector Inject 0.75 mg subcutaneously one time a week. Monitor bs closely and keep food log - metFORMIN (GLUCOPHAGE) 1,000 mg tablet Take 1 tablet by mouth two times a day. - levothyroxine (SYNTHROID) 125 mcg tablet Take 1 tablet by mouth daily before breakfast. - metoprolol succinate ER (TOPROL XL) 25 mg 24 hr tablet Take 1 tablet by mouth once daily. - sacubitril-valsartan (ENTRESTO) 24-26 mg tablet Take 1 tablet by mouth two times a day. - furosemide (LASIX) 40 mg tablet Take 1 tablet by mouth once daily. Patient should start on April 16, 2024. - magnesium, aluminum hydroxide (MYLANTA ORAL) Take 5 mL by mouth two times a day as needed (heartburn). - nystatin (MYCOSTATIN) 100,000 unit/mL suspension Take 100,000 Units by mouth four times daily. Swish and swallow. 5 ml 4times daily - empagliflozin (JARDIANCE) 10 mg tablet Take 1 tablet by mouth daily with breakfast. - mirtazapine (REMERON) 15 mg tablet Take 1 tablet by mouth daily at bedtime. - albuterol HFA (PROVENTIL HFA, VENTOLIN HFA) 90 mcg/actuation inhaler Inhale 2 Puffs as instructed every 4 hours as needed for wheezing/shortness of breath. - Insulin Whitman, Disposable, (PEN NEEDLE) 32 gauge x 5/32 Inject 1 Each subcutaneously every 24 hours. Give with each insulin administration. - Insulin Syringe-Needle U-100 0.5 mL 31 gauge x 5/16 Inject 1 Each subcutaneously every 24 hours. Give with each insulin administration. - aspirin, enteric coated (ADULT LOW DOSE ASPIRIN) 81 mg EC tablet Take 1 tablet by mouth once daily. - insulin glargine 100 unit/mL (3 mL) Inject 20 Units subcutaneously once daily. - rosuvastatin (CRESTOR) 10 mg tablet Take 1 tablet by mouth daily at bedtime. Meds Comments as of 10/23/2023: 10/23/23 The medications are managed by this patient by: PATIENT Calixto Bhavya, OA Problem List As Of Date 06/06/2024 Noted Resolved CAD (coronary artery disease) [I25.10] 09/04/2014 S/P coronary artery stent placement [Z95.5] 09/04/2014 Left bundle branch block (LBBB) on electrocardi*09/04/20 14 H/O myocardial infarction, greater than 8 weeks*09/04/2014 Tobacco abuse [Z72.0] 09/04/2014 Obesity [E66.9] 09/04/2014 Status post insertion of drug-eluting stent int*11/17/2016 Non morbid obesity due to excess calories [E66.*11/17/2016 Obesity, Class III, BMI >= 40 [E66.01] 05/11/2023 Hypercholesteremia [E78.00] HTN (hypertension) [I10] Schizoaffective disorder, bipolar type (HCC) [F*09/10/2023 11/02/2023 Cocaine dependence in remission ([facility]) [F14.21] 09/10/2023 Hypothyroidism [E03.9] Diabetes mellitus (HCC) [E11.9] Cataract, nuclear sclerotic, both eyes [H25.13] 10/23/2023 Hyperopia of both eyes [H52.03] 10/23/2023 Regular astigmatism of both eyes [H52.223] 10/23/2023 Presbyopia of both eyes [H52.4] 10/23/2023 Mood disorder (HCC) [F39] 11/02/2023 Acute systolic HF (heart failure) (HCC) [I50.21]04/13/2024 Acute on chronic systolic (congestive) heart fa*04/13/2024 04/15/2024 Atrial fib/flutter, transient (HCC) [I48.91, I4*04/14/2024 Mixed hyperlipidemia [E78.2] 04/14/2024 Morbid obesity (HCC) [E66.01] 04/14/2024 Essential hypertension [I10] 04/14/2024 Chronic HFrEF (heart failure with reduced eject*04/14/2024 Typical atrial flutter (HCC) [I48.3] 04/15/2024 Encounter Status:Closed by SANDRA ABBASI on 06/06/24 [facility] CNPN Telephone (AGCARDPOB ) VENKAT MARSH ([id number]) 1965 M Date Time Provider Department 06/06/24 BHANU EDMONDSON AGCARDPOB During your visit today, we recorded the following information about you: Jessica Fitzgerald 06/06/2024 9:10 AM Signed pt called to reschedule appointment when i told him the next available would be july he said he would find another doctor. Thanks Jessica Fitzgerald Allergies As of Date: 06/06/2024 Noted Allergy Reaction AMOXICILLIN-POT CLAVULANATE 12/23/2023 10 - Anaphylaxis 7 - Swelling METFORMIN 04/26/2023 6 - Diarrhea LISINOPRIL 04/24/2023 3 - Cough SULFAMETHOXAZOLE-TRIM ETHOPRIM 10/20/2009 2 - Rash 4 - Hives 7 - Swelling Date Reviewed: 04/27/2024 Reviewed by: Cristobal Ames, RN - Fully Assessed Prescriptions as of 06/06/2024 - ASA/acetaminophen/caf feine/pot (GOODY'S HEADACHE POWDER ORAL) Take 1 Packet by mouth as needed (headaches). - spironolactone (ALDACTONE) 25 mg tablet Take 1 tablet by mouth once daily. - dulaglutide (TRULICITY) 0.75 mg/0.5 mL pen injector Inject 0.75 mg subcutaneously one time a week. Monitor bs closely and keep food log - metFORMIN (GLUCOPHAGE) 1,000 mg tablet Take 1 tablet by mouth two times a day. - levothyroxine (SYNTHROID) 125 mcg tablet Take 1 tablet by mouth daily before breakfast. - metoprolol succinate ER (TOPROL XL) 25 mg 24 hr tablet Take 1 tablet by mouth once daily. - sacubitril-valsartan (ENTRESTO) 24-26 mg tablet Take 1 tablet by mouth two times a day. - furosemide (LASIX) 40 mg tablet Take 1 tablet by mouth once daily. Patient should start on April 16, 2024. - magnesium, aluminum hydroxide (MYLANTA ORAL) Take 5 mL by mouth two times a day as needed (heartburn). - nystatin (MYCOSTATIN) 100,000 unit/mL suspension Take 100,000 Units by mouth four times daily. Swish and swallow. 5 ml 4times daily - empagliflozin (JARDIANCE) 10 mg tablet Take 1 tablet by mouth daily with breakfast. - mirtazapine (REMERON) 15 mg tablet Take 1 tablet by mouth daily at bedtime. - albuterol HFA (PROVENTIL HFA, VENTOLIN HFA) 90 mcg/actuation inhaler Inhale 2 Puffs as instructed every 4 hours as needed for wheezing/shortness of breath. - Insulin Whitman, Disposable, (PEN NEEDLE) 32 gauge x 5/32 Inject 1 Each subcutaneously every 24 hours. Give with each insulin administration. - Insulin Syringe-Needle U-100 0.5 mL 31 gauge x 5/16 Inject 1 Each subcutaneously every 24 hours. Give with each insulin administration. - aspirin, enteric coated (ADULT LOW DOSE ASPIRIN) 81 mg EC tablet Take 1 tablet by mouth once daily. - insulin glargine 100 unit/mL (3 mL) Inject 20 Units subcutaneously once daily. - rosuvastatin (CRESTOR) 10 mg tablet Take 1 tablet by mouth daily at bedtime. Meds Comments as of 10/23/2023: 10/23/23 The medications are managed by this patient by: PATIENT OPHELIA Crooks Problem List As Of Date 06/06/2024 Noted Resolved CAD (coronary artery disease) [I25.10] 09/04/2014 S/P coronary artery stent placement [Z95.5] 09/04/2014 Left bundle branch block (LBBB) on electrocardi*09/04/20 14 H/O myocardial infarction, greater than 8 weeks*09/04/2014 Tobacco abuse [Z72.0] 09/04/2014 Obesity [E66.9] 09/04/2014 Status post insertion of drug-eluting stent int*11/17/2016 Non morbid obesity due to excess calories [E66.*11/17/2016 Obesity, Class III, BMI >= 40 [E66.01] 05/11/2023 Hypercholesteremia [E78.00] HTN (hypertension) [I10] Schizoaffective disorder, bipolar type (HCC) [F*09/10/2023 11/02/2023 Cocaine dependence in remission (HCC) [F14.21] 09/10/2023 Hypothyroidism [E03.9] Diabetes mellitus (HCC) [E11.9] Cataract, nuclear sclerotic, both eyes [H25.13] 10/23/2023 Hyperopia of both eyes [H52.03] 10/23/2023 Regular astigmatism of both eyes [H52.223] 10/23/2023 Presbyopia of both eyes [H52.4] 10/23/2023 Mood disorder (HCC) [F39] 11/02/2023 Acute systolic HF (heart failure) (HCC) [I50.21]04/13/2024 Acute on chronic systolic (congestive) heart fa*04/13/2024 04/15/2024 Atrial fib/flutter, transient (HCC) [I48.91, I4*04/14/2024 Mixed hyperlipidemia [E78.2] 04/14/2024 Morbid obesity (HCC) [E66.01] 04/14/2024 Essential hypertension [I10] 04/14/2024 Chronic HFrEF (heart failure with reduced eject*04/14/2024 Typical atrial flutter (HCC) [I48.3] 04/15/2024 Encounter Status:Closed by JESSICA FITZGERALD on 06/06/24 [facility] 06-03-2024 JOHNN Telephone ([facility]) VENKAT MARSH ([id number]) 1965 M Date Time Provider Department 06/03/24 BOO KIRAN During your visit today, we recorded the following information about you: Boo Kiran APRN.CNP 06/03/2024 10:55 AM Signed Can you please call and let him know that the blood work has been reviewed. With last visit we added aldactone 25mg tab daily Creatinine is 1.2 Potassium is 5.1 The potassium is on the high normal side Please discuss high potassium containing foods and drinks to avoid such as anything high citrus -such as grapefruits grapefruit juice tosin limes lemonade, dark green leafy vegetables, potatoes, Gatorade Powerade boost Ensure Would need to have another BMP drawn in 2-3 weeks to ensure K is stable BMP ordered NANDO Salinas Julianne, RN 06/03/2024 1:20 PM Signed Call placed. LM requesting for patient to return call. Office number left at this time. Allergies As of Date: 06/03/2024 Noted Allergy Reaction AMOXICILLIN-POT CLAVULANATE 12/23/2023 10 - Anaphylaxis 7 - Swelling METFORMIN 04/26/2023 6 - Diarrhea LISINOPRIL 04/24/2023 3 - Cough SULFAMETHOXAZOLE-TRIM ETHOPRIM 10/20/2009 2 - Rash 4 - Hives 7 - Swelling Date Reviewed: 04/27/2024 Reviewed by: Cristobal Ames RN - Fully Assessed Reason for Visit: Results [95] Primary Visit Diagnosis:Heart failure with reduced ejection fraction (HCC) [I50.20] Order(s):BASIC METABOLIC PANEL [SQBMP] Order #: [id number] FUTURE Prescriptions as of 06/03/2024 - ASA/acetaminophen/caf feine/pot (GOODY'S HEADACHE POWDER ORAL) Take 1 Packet by mouth as needed (headaches). - spironolactone (ALDACTONE) 25 mg tablet Take 1 tablet by mouth once daily. - dulaglutide (TRULICITY) 0.75 mg/0.5 mL pen injector Inject 0.75 mg subcutaneously one time a week. Monitor bs closely and keep food log - metFORMIN (GLUCOPHAGE) 1,000 mg tablet Take 1 tablet by mouth two times a day. - levothyroxine (SYNTHROID) 125 mcg tablet Take 1 tablet by mouth daily before breakfast. - metoprolol succinate ER (TOPROL XL) 25 mg 24 hr tablet Take 1 tablet by mouth once daily. - sacubitril-valsartan (ENTRESTO) 24-26 mg tablet Take 1 tablet by mouth two times a day. - furosemide (LASIX) 40 mg tablet Take 1 tablet by mouth once daily. Patient should start on April 16, 2024. - magnesium, aluminum hydroxide (MYLANTA ORAL) Take 5 mL by mouth two times a day as needed (heartburn). - nystatin (MYCOSTATIN) 100,000 unit/mL suspension Take 100,000 Units by mouth four times daily. Swish and swallow. 5 ml 4times daily - empagliflozin (JARDIANCE) 10 mg tablet Take 1 tablet by mouth daily with breakfast. - mirtazapine (REMERON) 15 mg tablet Take 1 tablet by mouth daily at bedtime. - albuterol HFA (PROVENTIL HFA, VENTOLIN HFA) 90 mcg/actuation inhaler Inhale 2 Puffs as instructed every 4 hours as needed for wheezing/shortness of breath. - Insulin Whitman, Disposable, (PEN NEEDLE) 32 gauge x 5/32 Inject 1 Each subcutaneously every 24 hours. Give with each insulin administration. - Insulin Syringe-Needle U-100 0.5 mL 31 gauge x 5/16 Inject 1 Each subcutaneously every 24 hours. Give with each insulin administration. - aspirin, enteric coated (ADULT LOW DOSE ASPIRIN) 81 mg EC tablet Take 1 tablet by mouth once daily. - insulin glargine 100 unit/mL (3 mL) Inject 20 Units subcutaneously once daily. - rosuvastatin (CRESTOR) 10 mg tablet Take 1 tablet by mouth daily at bedtime. Meds Comments as of 10/23/2023: 10/23/23 The medications are managed by this patient by: PATIENT OPHELIA Crooks Problem List As Of Date 06/03/2024 Noted Resolved CAD (coronary artery disease) [I25.10] 09/04/2014 S/P coronary artery stent placement [Z95.5] 09/04/2014 Left bundle branch block (LBBB) on electrocardi*09/04/20 14 H/O myocardial infarction, greater than 8 weeks*09/04/2014 Tobacco abuse [Z72.0] 09/04/2014 Obesity [E66.9] 09/04/2014 Status post insertion of drug-eluting stent int*11/17/2016 Non morbid obesity due to excess calories [E66.*11/17/2016 Obesity, Class III, BMI >= 40 [E66.01] 05/11/2023 Hypercholesteremia [E78.00] HTN (hypertension) [I10] Schizoaffective disorder, bipolar type (HCC) [F*09/10/2023 11/02/2023 Cocaine dependence in remission (HCC) [F14.21] 09/10/2023 Hypothyroidism [E03.9] Diabetes mellitus (HCC) [E11.9] Cataract, nuclear sclerotic, both eyes [H25.13] 10/23/2023 Hyperopia of both eyes [H52.03] 10/23/2023 Regular astigmatism of both eyes [H52.223] 10/23/2023 Presbyopia of both eyes [H52.4] 10/23/2023 Mood disorder (HCC) [F39] 11/02/2023 Acute systolic HF (heart failure) (HCC) [I50.21]04/13/2024 Acute on chronic systolic (congestive) heart fa*04/13/2024 04/15/2024 Atrial fib/flutter, transient (HCC) [I48.91, I4*04/14/2024 Mixed hyperlipidemia [E78.2] 04/14/2024 Morbid obesity (HCC) (more content not included)... Normal [facility] ALBUMIN/CREATININE RATIO, UR INEon 06-02-2024 Albumin DL <= 20 mg/L (U) [Mass/Vol] 129.9 mg/L Normal [facility] Comment on above: Order Comment: Speci men Type: BLOOD SPECIMEN Ordering Facility: [facility] Address: [address] [place] [address] Performed By: #### 5 5454-3 #### [facility] CLIA [id number] [address] [place] [address] [place] [address] [place] Albumin/Creatinine (U) [Mass ratio] 152 mg/g High <30 [facility] Comment on above: Order Comment: Speci men Type: BLOOD SPECIMEN Ordering Facility: [facility] Address: [address] [place] [address] Result Comment: Adul t Male and Female Nephrotic Criteria: <30 mg/g is considered normal to mildly increased 30-300 mg/g is considered moderately increased >300 mg/g is considered severely increased KDIGO. (2013). KDIGO 2012 Clinical Practice Guideline for the Evaluation and Management of Chronic Kidney Disease. Official Journal of the International Society of Nephrology, 3(1), 1-150. Performed By: #### 5 5454-3 #### [facility] CLIA [id number] [address] [place] [address] [place] Creatinine (U) [Mass/Vol] 85.6 mg/dL Normal 20.0-300.0 [facility] Comment on above: Order Comment: Speci men Type: BLOOD SPECIMEN Ordering Facility: [facility] Address: [address] [place] [address] Performed By: #### 5 5454-3 #### [facility] CLIA [id number] [address] [place] [address] [place] Basic metabolic 2000 panelon 06-02-2024 Anion gap [Moles/Vol] 12 mmol/L Normal 8-15 [facility] Comment on above: Order Comment: Speci men Type: BLOOD SPECIMEN Ordering Facility: [facility] Address: [address] [place] [address] Performed By: #### 5 5454-3 #### [facility] CLIA [id number] [address] [place] [address] [place] Calcium [Mass/Vol] 9.7 mg/dL Normal 8.5-10.2 [facility] Comment on above: Order Comment: Speci men Type: BLOOD SPECIMEN Ordering Facility: [facility] Address: [address] [place] [address] Performed By: #### 5 5454-3 #### [facility] CLIA [id number] [address] [place] [address] [place] Chloride [Moles/Vol] 101 mmol/L Normal 98-107 [facility] Comment on above: Order Comment: Speci men Type: BLOOD SPECIMEN Ordering Facility: [facility] Address: [address] [place] [address] Performed By: #### 5 5454-3 #### [facility] CLIA [id number] [address] [place] [address] [place] CO2 [Moles/Vol] 25 mmol/L Normal 22-30 [facility] Comment on above: Order Comment: Speci men Type: BLOOD SPECIMEN Ordering Facility: [facility] Address: [address] [place] [address] Performed By: #### 5 5454-3 #### [facility] CLIA [id number] [address] [place] [address] [place] Creatinine [Mass/Vol] 1.20 mg/dL Normal 0.73-1.22 [facility] Comment on above: Order Comment: Speci men Type: BLOOD SPECIMEN Ordering Facility: [facility] Address: [address] [place] [address] Performed By: #### 5 5454-3 #### [facility] CLIA [id number] [address] [place] [address] [place] Creatinine and Glomerular filtration rate.predicted panel (S/P/Bld) 69 mL/min/1.73m??? Normal >=60 [facility] Comment on above: Order Comment: Speci men Type: BLOOD SPECIMEN Ordering Facility: [facility] Address: [address] [place] [address] Result Comment: Eli mated Glomerular Filtration Rate (eGFR) is calculated using the 2020 CKD-EPI creatinine equation. This equation utilizes serum creatinine, sex, and age as parameters. The creatinine assay has traceable calibration to isotope dilution-mass spectrometry. Refer to KDIGO guidelines for clinical interpretation. In patients with unstable renal function, e.g. those with acute kidney injury, the eGFR may not accurately reflect actual GFR. Performed By: #### 5 5454-3 #### [facility] CLIA [id number] [address] [place] [address] [place] Glucose [Mass/Vol] 101 mg/dL High 74-99 [facility] Comment on above: Order Comment: Jazmin jolley Type: BLOOD SPECIMEN Ordering Facility: [facility] Address: [address] [place] [address] Result Comment: The [place] Diabetes Association (ADA) provides guidance for cutoff values for fasting glucose and random glucose. The ADA defines fasting as no caloric intake for at least 8 hours. Fasting plasma glucose results between 100 to 125 mg/dL indicate increased risk for diabetes (prediabetes). Fasting plasma glucose results greater than or equal to 126 mg/dL meet the criteria for diagnosis of diabetes. In the absence of unequivocal hyperglycemia, results should be confirmed by repeat testing. In a patient with classic symptoms of hyperglycemia or hyperglycemic crisis, random plasma glucose results greater than or equal to 200 mg/dL meet the criteria for diagnosis of diabetes. Reference: Standards of Medical Care in Diabetes 2016, [place] [employer] Association. Diabetes Care. 2016.39(Suppl 1). Performed By: #### 5 5454-3 #### [facility] CLIA [id number] [address] [place] [address] [place] Potassium [Moles/Vol] 5.1 mmol/L Normal 3.7-5.1 [facility] Comment on above: Order Comment: Jazmin jolley Type: BLOOD SPECIMEN Ordering Facility: [facility] Address: [address] [place] [address] Performed By: #### 5 5454-3 #### [facility] IA [id number] [address] [place] [address] [place] Sodium [Moles/Vol] 138 mmol/L Normal 136-144 [facility] Comment on above: Order Comment: Jazmin jolley Type: BLOOD SPECIMEN Ordering Facility: [facility] Address: [address] [place] [address] Performed By: #### 5 5454-3 #### [facility] CLIA [id number] [address] [place] [address] [place] Urea nitrogen [Mass/Vol] 15 mg/dL Normal 9-24 [facility] Comment on above: Order Comment: Speci men Type: BLOOD SPECIMEN Ordering Facility: [facility] Address: [address] [place] [address] Performed By: #### 5 5454-3 #### [facility] CLIA [id number] [address] [place] [address] [place] CBC panel Auto (Bld)on 06-02 Erythrocyte distribution width (RBC) [Ratio] 13.7 % Normal 11.5-15.0 [facility] Comment on above: Order Comment: Speci men Type: BLOOD SPECIMEN Ordering Facility: [facility] Address: [address] [place] [address] Performed By: #### 5 5454-3 #### [facility] CLIA [id number] [address] [place] [address] [place] Hematocrit (Bld) [Volume fraction] 57.3 % High 39.0-51.0 [facility] Comment on above: Order Comment: Speci men Type: BLOOD SPECIMEN Ordering Facility: [facility] Address: [address] [place] [address] Performed By: #### 5 5454-3 #### [facility] CLIA [id number] [address] [place] [address] [place] Hemoglobin (Bld) [Mass/Vol] 19.1 g/dL High 13.0-17.0 [facility] Comment on above: Order Comment: Speci men Type: BLOOD SPECIMEN Ordering Facility: [facility] Address: [address] [place] [address] Performed By: #### 5 5454-3 #### [facility] CLIA [id number] [address] [place] [address] [place] MCH (RBC) [Entitic mass] 31.4 pg Normal 26.0-34.0 [facility] Comment on above: Order Comment: Speci men Type: BLOOD SPECIMEN Ordering Facility: [facility] Address: [address] [place] [address] Performed By: #### 5 5454-3 #### [facility] CLIA [id number] [address] [place] [address] [place] MCHC (RBC) [Mass/Vol] 33.3 g/dL Normal 30.5-36.0 [facility] Comment on above: Order Comment: Speci men Type: BLOOD SPECIMEN Ordering Facility: [facility] Address: [address] [place] [address] Performed By: #### 5 5454-3 #### [facility] CLIA [id number] [address] [place] [address] [place] MCV (RBC) [Entitic vol] 94.1 fL Normal 80.0-100.0 [facility] Comment on above: Order Comment: Speci men Type: BLOOD SPECIMEN Ordering Facility: [facility] Address: [address] [place] [address] Performed By: #### 5 5454-3 #### [facility] CLIA [id number] [address] [place] [address] [place] Nucleated RBC (Bld) [#/Vol] 10*3/uL Normal <0.01 [facility] Comment on above: Order Comment: Speci men Type: BLOOD SPECIMEN Ordering Facility: [facility] Address: [address] [place] [address] Performed By: #### 5 5454-3 #### [facility] CLIA [id number] [address] [place] [address] [place] Platelet mean volume (Bld) [Entitic vol] 10.8 fL Normal 9.0-12.7 [facility] Comment on above: Order Comment: Speci men Type: BLOOD SPECIMEN Ordering Facility: [facility] Address: [address] [place] [address] Performed By: #### 5 5454-3 #### [facility] CLIA [id number] [address] [place] [address] [place] Platelets (Bld) [#/Vol] 229 10*3/uL Normal 150-400 [facility] Comment on above: Order Comment: Speci men Type: BLOOD SPECIMEN Ordering Facility: [facility] Address: [address] [place] [address] Performed By: #### 5 5454-3 #### [facility] CLIA [id number] [address] [place] [address] [place] RBC (Bld) [#/Vol] 6.09 10*6/uL High 4.20-6.00 [facility] Comment on above: Order Comment: Speci men Type: BLOOD SPECIMEN Ordering Facility: [facility] Address: [address] [place] [address] Performed By: #### 5 5454-3 #### [facility] CLIA [id number] [address] [place] [address] [place] WBC (Bld) [#/Vol] 13.00 10*3/uL High 3.70-11.00 [facility] Comment on above: Order Comment: Speci men Type: BLOOD SPECIMEN Ordering Facility: [facility] Address: [address] [place] [address] Performed By: #### 5 5454-3 #### [facility] CLIA [id number] [address] [place] [address] [place] Ferritin SerPl-mCncon 2023 Ferritin [Mass/Vol] 89.6 ng/mL Normal 30.3-565.7 [facility] Comment on above: Order Comment: Speci men Type: BLOOD SPECIMEN Ordering Facility: [facility] Address: [address] [place] [address] Performed By: #### 5 5454-3 #### [facility] [place] [id number] [address] [place] [address] [place] HbA1c (Bld)on 06-02-2024 Average glucose Estimated from glycated hemoglobin (Bld) [Mass/Vol] 171 mg/dL Normal [facility] Comment on above: Order Comment: Jazmin jolley Type: BLOOD SPECIMEN Ordering Facility: [facility] Address: [address] [place] [address] Result Comment: eAG: (Estimated average glucose) is a calculated value from HgbA1c and is sales representative trainee of the average blood glucose level in the last 2-3 month period. Performed By: #### 5 5454-3 #### [facility] [place] [id number] [address] [place] [address] STATES OF [facility] HbA1c (Bld) [Mass fraction] 7.6 % High 4.3-5.6 [facility] Comment on above: Order Comment: Jazmin jolley Type: BLOOD SPECIMEN Ordering Facility: [facility] Address: [address] [place] [address] Result Comment: [place] Diabetes Association guidelines indicate that patients with HgbA1c in the range 5.7-6.4% are at increased risk for development of diabetes, and intervention by lifestyle modification may be beneficial. HgbA1c greater or equal to 6.5% is considered diagnostic of diabetes. Performed By: #### 5 5454-3 #### [facility] IA [id number] [address] [place] [address] OF [place] CNPDeena 05-16-2024 CNPN Telephone ([facility]) VENKAT MARSH ([id number]) 1965 M Date Time Provider Department 05/16/24 JOSETTE MCGEE [facility] During your visit today, we recorded the following information about you: Josette Mcgee RN 05/16/2024 3:53 PM Signed Call placed to patient to verify picking up Aldactone and medication clarification Network Navigation SBAR Situation: Called patient to verify medications and obtaining Spironolactone. Background: Patient was only taking Entresto and Eliquis once daily and was instructed to increase this to twice a day as prescribed. 2. Patient was ordered Spironolactone and had not yet picked up medication at the time of last office visit. 3. Patient stated that he found a bottle of Losartan Assessment: Patient reported that he is taking the medication BID Patient picked up and is now taking Spironolactone Patient reported that he started taking the Losartan Potassium today Recommendation: Continue Entresto, Eliquis and Spironolactone as prescribed. Have blood work obtained in 2 weeks at laboratory in [place] STOP Losartan. Explanation that Entresto and Losartan contain the same medication and Losartan pills should be brought to a pharmacy that takes in old medicine. Patient stated understanding. Of the above and repeated instructions in own wording Allergies As of Date: 05/16/2024 Noted Allergy Reaction AMOXICILLIN-POT CLAVULANATE 12/23/2023 10 - Anaphylaxis 7 - Swelling METFORMIN 04/26/2023 6 - Diarrhea LISINOPRIL 04/24/2023 3 - Cough SULFAMETHOXAZOLE-TRIM ETHOPRIM 10/20/2009 2 - Rash 4 - Hives 7 - Swelling Date Reviewed: 04/27/2024 Reviewed by: Cristobal Ames, RN - Fully Assessed Reason for Visit: Patient Update [1234] Prescriptions as of 05/16/2024 - ASA/acetaminophen/caf feine/pot (GOODY'S HEADACHE POWDER ORAL) Take 1 Packet by mouth as needed (headaches). - spironolactone (ALDACTONE) 25 mg tablet Take 1 tablet by mouth once daily. - dulaglutide (TRULICITY) 0.75 mg/0.5 mL pen injector Inject 0.75 mg subcutaneously one time a week. Monitor bs closely and keep food log - metFORMIN (GLUCOPHAGE) 1,000 mg tablet Take 1 tablet by mouth two times a day. - levothyroxine (SYNTHROID) 125 mcg tablet Take 1 tablet by mouth daily before breakfast. - metoprolol succinate ER (TOPROL XL) 25 mg 24 hr tablet Take 1 tablet by mouth once daily. - sacubitril-valsartan (ENTRESTO) 24-26 mg tablet Take 1 tablet by mouth two times a day. - furosemide (LASIX) 40 mg tablet Take 1 tablet by mouth once daily. Patient should start on April 16, 2024. - magnesium, aluminum hydroxide (MYLANTA ORAL) Take 5 mL by mouth two times a day as needed (heartburn). - nystatin (MYCOSTATIN) 100,000 unit/mL suspension Take 100,000 Units by mouth four times daily. Swish and swallow. 5 ml 4times daily - empagliflozin (JARDIANCE) 10 mg tablet Take 1 tablet by mouth daily with breakfast. - mirtazapine (REMERON) 15 mg tablet Take 1 tablet by mouth daily at bedtime. - albuterol HFA (PROVENTIL HFA, VENTOLIN HFA) 90 mcg/actuation inhaler Inhale 2 Puffs as instructed every 4 hours as needed for wheezing/shortness of breath. - Insulin Whitman, Disposable, (PEN NEEDLE) 32 gauge x 5/32 Inject 1 Each subcutaneously every 24 hours. Give with each insulin administration. - Insulin Syringe-Needle U-100 0.5 mL 31 gauge x 5/16 Inject 1 Each subcutaneously every 24 hours. Give with each insulin administration. - aspirin, enteric coated (ADULT LOW DOSE ASPIRIN) 81 mg EC tablet Take 1 tablet by mouth once daily. - insulin glargine 100 unit/mL (3 mL) Inject 20 Units subcutaneously once daily. - rosuvastatin (CRESTOR) 10 mg tablet Take 1 tablet by mouth daily at bedtime. Meds Comments as of 10/23/2023: 10/23/23 The medications are managed by this patient by: PATIENT OPHELIA Crooks Problem List As Of Date 05/16/2024 Noted Resolved CAD (coronary artery disease) [I25.10] 09/04/2014 S/P coronary artery stent placement [Z95.5] 09/04/2014 Left bundle branch block (LBBB) on electrocardi*09/04/20 14 H/O myocardial infarction, greater than 8 weeks*09/04/2014 Tobacco abuse [Z72.0] 09/04/2014 Obesity [E66.9] 09/04/2014 Status post insertion of drug-eluting stent int*11/17/2016 Non morbid obesity due to excess calories [E66.*11/17/2016 Obesity, Class III, BMI >= 40 [E66.01] 05/11/2023 Hypercholesteremia [E78.00] HTN (hypertension) [I10] Schizoaffective disorder, bipolar type (HCC) [F*09/10/2023 11/02/2023 Cocaine dependence in remission (HCC) [F14.21] 09/10/2023 Hypothyroidism [E03.9] Diabetes mellitus (HCC) [E11.9] Cataract, nuclear sclerotic, both eyes [H25.13] 10/23/2023 Hyperopia of both eyes [H52.03] 10/23/2023 Regular astigmatism of both eyes [H52.223] 10/23/2023 Presbyopia of both eyes [H52.4] 10/23/2023 Mood disorder (HCC) [F39] 11/02/2023 Acute systolic HF (hear (more content not included)... Normal [facility] ([facility]) VENKAT MARSH ([id number]) 1965 M Date Time Provider Department 05/13/24 JOSETTE MCGEE [facility] During your visit today, we recorded the following information about you: Josette Mcgee, SUZAN 05/13/2024 10:02 AM Signed Call placed to patient to verify that he picked up the Spironolactone and if he had started taking both Eliquis and Entresto twice a day. Unfortunately, Mr. Marsh has not obtained the new prescription. Patient hung up before obtaining any more information. Since he is active with [employer], a message will be sent on the above. Allergies As of Date: 05/13/2024 Noted Allergy Reaction AMOXICILLIN-POT CLAVULANATE 12/23/2023 10 - Anaphylaxis 7 - Swelling METFORMIN 04/26/2023 6 - Diarrhea LISINOPRIL 04/24/2023 3 - Cough SULFAMETHOXAZOLE-TRIM ETHOPRIM 10/20/2009 2 - Rash 4 - Hives 7 - Swelling Date Reviewed: 04/27/2024 Reviewed by: Cristobal Ames RN - Fully Assessed Reason for Visit: Patient Update [1234] Prescriptions as of 05/13/2024 - ASA/acetaminophen/caf feine/pot (GOODY'S HEADACHE POWDER ORAL) Take 1 Packet by mouth as needed (headaches). - spironolactone (ALDACTONE) 25 mg tablet Take 1 tablet by mouth once daily. - dulaglutide (TRULICITY) 0.75 mg/0.5 mL pen injector Inject 0.75 mg subcutaneously one time a week. Monitor bs closely and keep food log - metFORMIN (GLUCOPHAGE) 1,000 mg tablet Take 1 tablet by mouth two times a day. - levothyroxine (SYNTHROID) 125 mcg tablet Take 1 tablet by mouth daily before breakfast. - metoprolol succinate ER (TOPROL XL) 25 mg 24 hr tablet Take 1 tablet by mouth once daily. - sacubitril-valsartan (ENTRESTO) 24-26 mg tablet Take 1 tablet by mouth two times a day. - apixaban (ELIQUIS) 5 mg tab(s) Take 1 tablet by mouth two times a day. - furosemide (LASIX) 40 mg tablet Take 1 tablet by mouth once daily. Patient should start on April 16, 2024. - magnesium, aluminum hydroxide (MYLANTA ORAL) Take 5 mL by mouth two times a day as needed (heartburn). - nystatin (MYCOSTATIN) 100,000 unit/mL suspension Take 100,000 Units by mouth four times daily. Swish and swallow. 5 ml 4times daily - empagliflozin (JARDIANCE) 10 mg tablet Take 1 tablet by mouth daily with breakfast. - mirtazapine (REMERON) 15 mg tablet Take 1 tablet by mouth daily at bedtime. - albuterol HFA (PROVENTIL HFA, VENTOLIN HFA) 90 mcg/actuation inhaler Inhale 2 Puffs as instructed every 4 hours as needed for wheezing/shortness of breath. - Insulin Whitman, Disposable, (PEN NEEDLE) 32 gauge x 5/32 Inject 1 Each subcutaneously every 24 hours. Give with each insulin administration. - Insulin Syringe-Needle U-100 0.5 mL 31 gauge x 5/16 Inject 1 Each subcutaneously every 24 hours. Give with each insulin administration. - aspirin, enteric coated (ADULT LOW DOSE ASPIRIN) 81 mg EC tablet Take 1 tablet by mouth once daily. - insulin glargine 100 unit/mL (3 mL) Inject 20 Units subcutaneously once daily. - rosuvastatin (CRESTOR) 10 mg tablet Take 1 tablet by mouth daily at bedtime. Meds Comments as of 10/23/2023: 10/23/23 The medications are managed by this patient by: PATIENT OPHELIA Crooks Problem List As Of Date 05/13/2024 Noted Resolved CAD (coronary artery disease) [I25.10] 09/04/2014 S/P coronary artery stent placement [Z95.5] 09/04/2014 Left bundle branch block (LBBB) on electrocardi*09/04/20 14 H/O myocardial infarction, greater than 8 weeks*09/04/2014 Tobacco abuse [Z72.0] 09/04/2014 Obesity [E66.9] 09/04/2014 Status post insertion of drug-eluting stent int*11/17/2016 Non morbid obesity due to excess calories [E66.*11/17/2016 Obesity, Class III, BMI >= 40 [E66.01] 05/11/2023 Hypercholesteremia [E78.00] HTN (hypertension) [I10] Schizoaffective disorder, bipolar type (HCC) [F*09/10/2023 11/02/2023 Cocaine dependence in remission ([facility]) [F14.21] 09/10/2023 Hypothyroidism [E03.9] Diabetes mellitus (HCC) [E11.9] Cataract, nuclear sclerotic, both eyes [H25.13] 10/23/2023 Hyperopia of both eyes [H52.03] 10/23/2023 Regular astigmatism of both eyes [H52.223] 10/23/2023 Presbyopia of both eyes [H52.4] 10/23/2023 Mood disorder (HCC) [F39] 11/02/2023 Acute systolic HF (heart failure) (HCC) [I50.21]04/13/2024 Acute on chronic systolic (congestive) heart fa*04/13/2024 04/15/2024 Atrial fib/flutter, transient (HCC) [I48.91, I4*04/14/2024 Mixed hyperlipidemia [E78.2] 04/14/2024 Morbid obesity (HCC) [E66.01] 04/14/2024 Essential hypertension [I10] 04/14/2024 Chronic HFrEF (heart failure with reduced eject*04/14/2024 Typical atrial flutter (HCC) [I48.3] 04/15/2024 Encounter Status:Closed by JOSETTE MCGEE on 05/13/24 [facility] 05-12-2024 [employer] Telephone ([employer]) VENKAT MARSH ([id number]) 1965 M Date Time Provider Department 05/12/24 SANJAY MARTIN [facility] During your visit today, we recorded the following information about you: Sanjay Martin 05/12/2024 1:21 PM Signed Called pt to schedule Cardiac Rehab. Patient prefers [facility]. Information sent via fax. Allergies As of Date: 05/12/2024 Noted Allergy Reaction AMOXICILLIN-POT CLAVULANATE 12/23/2023 10 - Anaphylaxis 7 - Swelling METFORMIN 04/26/2023 6 - Diarrhea LISINOPRIL 04/24/2023 3 - Cough SULFAMETHOXAZOLE-TRIM ETHOPRIM 10/20/2009 2 - Rash 4 - Hives 7 - Swelling Date Reviewed: 04/27/2024 Reviewed by: Cristobal Ames, RN - Fully Assessed Reason for Visit: Cardiac Rehab [5551] Cmt: Pt prefers [facility] Prescriptions as of 05/12/2024 - ASA/acetaminophen/caf feine/pot (GOODY'S HEADACHE POWDER ORAL) Take 1 Packet by mouth as needed (headaches). - spironolactone (ALDACTONE) 25 mg tablet Take 1 tablet by mouth once daily. - dulaglutide (TRULICITY) 0.75 mg/0.5 mL pen injector Inject 0.75 mg subcutaneously one time a week. Monitor bs closely and keep food log - metFORMIN (GLUCOPHAGE) 1,000 mg tablet Take 1 tablet by mouth two times a day. - levothyroxine (SYNTHROID) 125 mcg tablet Take 1 tablet by mouth daily before breakfast. - metoprolol succinate ER (TOPROL XL) 25 mg 24 hr tablet Take 1 tablet by mouth once daily. - sacubitril-valsartan (ENTRESTO) 24-26 mg tablet Take 1 tablet by mouth two times a day. - apixaban (ELIQUIS) 5 mg tab(s) Take 1 tablet by mouth two times a day. - furosemide (LASIX) 40 mg tablet Take 1 tablet by mouth once daily. Patient should start on April 16, 2024. - magnesium, aluminum hydroxide (MYLANTA ORAL) Take 5 mL by mouth two times a day as needed (heartburn). - nystatin (MYCOSTATIN) 100,000 unit/mL suspension Take 100,000 Units by mouth four times daily. Swish and swallow. 5 ml 4times daily - empagliflozin (JARDIANCE) 10 mg tablet Take 1 tablet by mouth daily with breakfast. - mirtazapine (REMERON) 15 mg tablet Take 1 tablet by mouth daily at bedtime. - albuterol HFA (PROVENTIL HFA, VENTOLIN HFA) 90 mcg/actuation inhaler Inhale 2 Puffs as instructed every 4 hours as needed for wheezing/shortness of breath. - Insulin Whitman, Disposable, (PEN NEEDLE) 32 gauge x 5/32 Inject 1 Each subcutaneously every 24 hours. Give with each insulin administration. - Insulin Syringe-Needle U-100 0.5 mL 31 gauge x 5/16 Inject 1 Each subcutaneously every 24 hours. Give with each insulin administration. - aspirin, enteric coated (ADULT LOW DOSE ASPIRIN) 81 mg EC tablet Take 1 tablet by mouth once daily. - insulin glargine 100 unit/mL (3 mL) Inject 20 Units subcutaneously once daily. - rosuvastatin (CRESTOR) 10 mg tablet Take 1 tablet by mouth daily at bedtime. Meds Comments as of 10/23/2023: 10/23/23 The medications are managed by this patient by: PATIENT Calixto Latif, OA Problem List As Of Date 05/12/2024 Noted Resolved CAD (coronary artery disease) [I25.10] 09/04/2014 S/P coronary artery stent placement [Z95.5] 09/04/2014 Left bundle branch block (LBBB) on electrocardi*09/04/20 14 H/O myocardial infarction, greater than 8 weeks*09/04/2014 Tobacco abuse [Z72.0] 09/04/2014 Obesity [E66.9] 09/04/2014 Status post insertion of drug-eluting stent int*11/17/2016 Non morbid obesity due to excess calories [E66.*11/17/2016 Obesity, Class III, BMI >= 40 [E66.01] 05/11/2023 Hypercholesteremia [E78.00] HTN (hypertension) [I10] Schizoaffective disorder, bipolar type (HCC) [F*09/10/2023 11/02/2023 Cocaine dependence in remission (HCC) [F14.21] 09/10/2023 Hypothyroidism [E03.9] Diabetes mellitus (HCC) [E11.9] Cataract, nuclear sclerotic, both eyes [H25.13] 10/23/2023 Hyperopia of both eyes [H52.03] 10/23/2023 Regular astigmatism of both eyes [H52.223] 10/23/2023 Presbyopia of both eyes [H52.4] 10/23/2023 Mood disorder (HCC) [F39] 11/02/2023 Acute systolic HF (heart failure) (HCC) [I50.21]04/13/2024 Acute on chronic systolic (congestive) heart fa*04/13/2024 04/15/2024 Atrial fib/flutter, transient (HCC) [I48.91, I4*04/14/2024 Mixed hyperlipidemia [E78.2] 04/14/2024 Morbid obesity (HCC) [E66.01] 04/14/2024 Essential hypertension [I10] 04/14/2024 Chronic HFrEF (heart failure with reduced eject*04/14/2024 Typical atrial flutter (HCC) [I48.3] 04/15/2024 Encounter Status:Closed by SANJAY MARTIN on 05/12/24 [facility] CNN[facility]SEon 05-11-2024 [facility] Nurse Visit ([facility]) VENKAT MARSH ([id number]) 1965 M Date Time Provider Department 05/11/24 11:00 AM NURSE CARD CHF 1 [facility] During your visit today, we recorded the following information about you: Pulse Respiration Blood pressure Weight 87/minute 16/minute 115/78 124.7 kg Height 1.702 m Josette Mcgee, RN 05/11/2024 11:42 AM Addendum Thank you for visiting the [facility] Failure [facility] today. Recommendations for today; 1. supervisor powdered metal your medication at [facility] pharmacy - Spironolactone/Aldact one 25 mg daily. 2. On 2023 HAVE BLOOD WORK OBTAINED. This can be at the nearest [facility] lab. Closest lab in [place] is the one on [facility]. 3. You reported that you were only taking your Eliquis, Entresto once a day. These are supposed to be twice a day. Start taking these medications at 8 am and 4 pm Please keep up the great work on managing your sodium and fluid restrictions. The below are ideas on how to best manage your heart failure symptoms. Please weigh daily and record. It is most important that you weigh close to the same time every day. Please be consistent on weighing (if you start weighing undressed continue on doing so) Read your food labels and watch for hidden sodium. Keep your sodium intake between 1500-2000mg daily. This must be balanced per every meal you eat in the day. For example, if you eat three meals you will need 500-650 mg per meal. If you eat 6 small meals a day, then you will need to take in 300 mg per meal. Remember, any foods made or created by someone else may have a high content of sodium. Such as, grocery foods, restaurant foods and any foods made by friends or family! Try to include a form of protein with every meal. Keep your fluid intake at 48-64 ounces /day. Increase your activity as tolerated. This includes anything liquid at room temperature. Such as Jell-O, pudding, yogurt, ice cream Call the [facility] ([phone]) for AN APPOINTMENT (NO WALK-IN VISITS) if you have changes in symptoms or increase in weight of 3 lbs in one day or 5 lbs in a week. Thank you, Josette Mcgee, RN Josette Mcgee RN 05/11/2024 12:18 PM Signed Nursing Assessment: Interim Hospitalizations and/or ER visits: No Cough: No Shortness of breath at rest: No Shortness of breath with activity: No Lungs clear: Yes Orthopnea, number of pillows: No - one pillow under head GI Complaints: No Edema, site: No edema Abdominal: softly distended. Negative fluid shift. Waist circumference remains the same at 56 Skipping or irregular heartbeats: No Chest Pain: No Lightheadedness or dizziness: Yes - when getting up out of bed fast. Cautioned to sit and dangle until stable Feeling like you are going to pass out: No Actually passing out: No Poor energy level: No PND: No Waking up in the middle of the night gasping for air: No Unintentional weight gain: No Unintentional weight loss: No Swelling in your legs,feet, abdomen: No Among other conditions mentioned above, Venkat Marsh suffers from congestive heart failure NYHA II, Stage C. Readiness to Learn Information Needed on: Medication Cognitive Ability: Despite being alert and oriented, he could not consistently keep on subject having to be redirected many times. Motivation to Learn: Eager - patient requested information to be given at a 5th grade level Family Support: Unable to assess - Family not present Instruction Provided to: Patient Patient Learns best by: Written Instruction - Hand-outs Physical Limitations Affecting Learning: None Learning Response Method of Instruction: Individual instruction Written instruction - handouts Patient / Family Response: ALL RECOMMENDATIONS HAVE BEEN GIVEN IN WRITTEN FORM. Patient read the instructions out loud, verbalized understanding. Summary of Visit: Mr. Marsh arrived to the [facility] for his 2-week follow up with the nurse. Shadi presented alone, ambulating independently. He was able to speak in full sentences with this activity. Medication updates noted in MAR - Noted confusion regarding medications. Shadi stated that he did not know about being started on Spironolactone by the [facility] two weeks ago. 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 Shadi instructed to do this today. He also was unaware that he was to take his Eliquis and Entresto twice a day, reporting only taking these daily. Confirmed on prescription bottle that these indeed directed the patient to take twice daily. Due to his concern about understanding verbal directions, the [facility] nurse clearly wrote directions on the AVS. The patient read back all instructions and then in his own words accurately stated them. Heart Failure specific medications: (list current, note updates, changes, stefano (more content not included)... Normal [facility] VENKAT MARSH ([id number]) 1965 M Date Time Provider Department 04/29/24 BOO KIRAN [facility] During your visit today, we recorded the following information about you: Josette Mcgee RN 04/29/2024 10:27 AM Signed Mr. Marsh contacted the [facility] regarding the need to have his new prescription sent to the pharmacy. Reviewed last office visit note and noted a recommendation to have patient start Spironolactone 25 mg daily and to have blood work completed 2 weeks after start. Requesting for prescription Boo Kiran APRN.JOHN 04/29/2024 11:14 AM Signed Script was sent to [facility] in [place] at our visit Please let me know if this was the wrong pharmacy and please update epic if needed THanks Josette Mcgee RN 04/29/2024 1:00 PM Signed Review shows that this was never ordered and sent at time of your visit, therefore one was placed today. Thank you for your help! 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) [I50.22] Order(s):spironolacto ne (ALDACTONE) 25 mg tabletTake 1 tablet by mouth once daily.Disp: 30 tabletRfl: 3 BASIC METABOLIC PANEL [SQBMP] Order #: [id number] FUTURE Prescriptions as of 04/29/2024 - spironolactone (ALDACTONE) 25 mg tablet Take 1 tablet by mouth once daily. - dulaglutide (TRULICITY) 0.75 mg/0.5 mL pen injector Inject 0.75 mg subcutaneously one time a week. Monitor bs closely and keep food log - metFORMIN (GLUCOPHAGE) 1,000 mg tablet Take 1 tablet by mouth two times a day. - levothyroxine (SYNTHROID) 125 mcg tablet Take 1 tablet by mouth daily before breakfast. - metoprolol succinate ER (TOPROL XL) 25 mg 24 hr tablet Take 1 tablet by mouth once daily. - sacubitril-valsartan (ENTRESTO) 24-26 mg tablet Take 1 tablet by mouth two times a day. - apixaban (ELIQUIS) 5 mg tab(s) Take 1 tablet by mouth two times a day. - furosemide (LASIX) 40 mg tablet Take 1 tablet by mouth once daily. Patient should start on April 16, 2024. - magnesium, aluminum hydroxide (MYLANTA ORAL) Take 5 mL by mouth two times a day as needed (heartburn). - nystatin (MYCOSTATIN) 100,000 unit/mL suspension Take 100,000 Units by mouth four times daily. Swish and swallow. 5 ml 4times daily - empagliflozin (JARDIANCE) 10 mg tablet Take 1 tablet by mouth daily with breakfast. - mirtazapine (REMERON) 15 mg tablet Take 1 tablet by mouth daily at bedtime. - traZODone (DESYREL) 100 mg tablet Take 1 tablet by mouth daily at bedtime. - albuterol HFA (PROVENTIL HFA, VENTOLIN HFA) 90 mcg/actuation inhaler Inhale 2 Puffs as instructed every 4 hours as needed for wheezing/shortness of breath. - fluticasone (FLONASE) 50 mcg/actuation nasal spray Use 2 Sprays in each nostril once daily. - Insulin Whitman, Disposable, (PEN NEEDLE) 32 gauge x 5/32 Inject 1 Each subcutaneously every 24 hours. Give with each insulin administration. - Insulin Syringe-Needle U-100 0.5 mL 31 gauge x 5/16 Inject 1 Each subcutaneously every 24 hours. Give with each insulin administration. - aspirin, enteric coated (ADULT LOW DOSE ASPIRIN) 81 mg EC tablet Take 1 tablet by mouth once daily. - insulin glargine 100 unit/mL (3 mL) Inject 20 Units subcutaneously once daily. - rosuvastatin (CRESTOR) 10 mg tablet Take 1 tablet by mouth daily at bedtime. Meds Comments as of 10/23/2023: 10/23/23 The medications are managed by this patient by: PATIENT OPHELIA Crooks Problem List As Of Date 04/29/2024 Noted Resolved CAD (coronary artery disease) [I25.10] 09/04/2014 S/P coronary artery stent placement [Z95.5] 09/04/2014 Left bundle branch block (LBBB) on electrocardi*09/04/20 14 H/O myocardial infarction, greater than 8 weeks*09/04/2014 Tobacco abuse [Z72.0] 09/04/2014 Obesity [E66.9] 09/04/2014 Status post insertion of drug-eluting stent int*11/17/2016 Non morbid obesity due to excess calories [E66.*11/17/2016 Obesity, Class III, BMI >= 40 [E66.01] 05/11/2023 Hypercholesteremia [E78.00] HTN (hypertension) [I10] Schizoaffective disorder, bipolar type (HCC) [F*09/10/2023 11/02/2023 Cocaine dependence in remission (HCC) [F14.21] 09/10/2023 Hypothyroidism [E03.9] Diabetes mellitus (HCC) [E11.9] Cataract, nuclear sclerotic, both eyes [H25.13] (more content not included)... Normal [facility] CNPN Telephone ([facility] ) VENKAT MARSH ([id number]) 1965 M Date Time Provider Department 04/29/24 DEVEN CARRINGTON AGCARDPOB During your visit today, we recorded the following information about you: Yan Zhao LPN 04/29/2024 10:31 AM Signed Pt called in reports he has discontinued his Crestor due to sore muscles and muscle spasms in his legs. He has upcomming apts with the CHF clinic and S [facility] LOPEZ. JHON Wellington Kimberly, APRN.[facility] 04/29/2024 11:15 AM Signed Thank you Yan I only manage heart failure meds. I attached Bhanu since she is the next gen cards appointment Bhanu Edmondson APRN.ELEMENTARY SUPERVISOR 04/29/2024 2:33 PM Signed This is actually a patient of Dr Ponce that Dr Carrington saw in the hospital recently for progressive worsening shortness of breath and lower extremity edema. He was found to have an EF of 17%, heart catheterization revealed mild CAD with LAD stent with 20% ISR, RCA stent with mild ISR. He was started on GDMT with metoprolol XL, Jardiance and Entresto. Patient was recently in the heart failure clinic. There was some confusion and concerns about what medications he was actually taking. He was not taking the Entresto apparently because of leg cramps. He did have c/o of this while in the hospital, likely from the IV lasix. The medication list states that he is currently on lasix 40 mg daily. He does have outstanding lab work that he should complete to see if he has any electrolyte abnormalities. Ok to stop the rosuvastatin for a week to see if his symptoms resolve. He should be on cholesterol medication given his CAD and in-stent stenosis. If symptoms resolve off of this medication we will need to trial another medication. If symptoms do not resolve while off this medication, it should be restarted. Thanks Bhanu Edmondson APRN.Yan Bearden LPN 04/29/2024 2:51 PM Signed Spoke with Mr Nash. Results and recommendations reviewed with pt per Neva Edmondson CNP. Pt verbalized understanding he will obtain labs. He will hold his Crestor for two weeks, then return call and advise of symptoms. He does reports he joined [employer] at the [facility] to start a water program. . Pt has no questions at this time. Yan Zhao LPN Allergies As of Date: 04/29/2024 Noted Allergy Reaction AMOXICILLIN-POT CLAVULANATE 12/23/2023 10 - Anaphylaxis 7 - Swelling METFORMIN 04/26/2023 6 - Diarrhea LISINOPRIL 04/24/2023 3 - Cough SULFAMETHOXAZOLE-TRIM ETHOPRIM 10/20/2009 2 - Rash 4 - Hives 7 - Swelling Date Reviewed: 04/27/2024 Reviewed by: Cristobal Ames, SUZAN - Fully Assessed Prescriptions as of 04/29/2024 - spironolactone (ALDACTONE) 25 mg tablet Take 1 tablet by mouth once daily. - dulaglutide (TRULICITY) 0.75 mg/0.5 mL pen injector Inject 0.75 mg subcutaneously one time a week. Monitor bs closely and keep food log - metFORMIN (GLUCOPHAGE) 1,000 mg tablet Take 1 tablet by mouth two times a day. - levothyroxine (SYNTHROID) 125 mcg tablet Take 1 tablet by mouth daily before breakfast. - metoprolol succinate ER (TOPROL XL) 25 mg 24 hr tablet Take 1 tablet by mouth once daily. - sacubitril-valsartan (ENTRESTO) 24-26 mg tablet Take 1 tablet by mouth two times a day. - apixaban (ELIQUIS) 5 mg tab(s) Take 1 tablet by mouth two times a day. - furosemide (LASIX) 40 mg tablet Take 1 tablet by mouth once daily. Patient should start on April 16, 2024. - magnesium, aluminum hydroxide (MYLANTA ORAL) Take 5 mL by mouth two times a day as needed (heartburn). - nystatin (MYCOSTATIN) 100,000 unit/mL suspension Take 100,000 Units by mouth four times daily. Swish and swallow. 5 ml 4times daily - empagliflozin (JARDIANCE) 10 mg tablet Take 1 tablet by mouth daily with breakfast. - mirtazapine (REMERON) 15 mg tablet Take 1 tablet by mouth daily at bedtime. - traZODone (DESYREL) 100 mg tablet Take 1 tablet by mouth daily at bedtime. - albuterol HFA (PROVENTIL HFA, VENTOLIN HFA) 90 mcg/actuation inhaler Inhale 2 Puffs as instructed every 4 hours as needed for wheezing/shortness of breath. - fluticasone (FLONASE) 50 mcg/actuation nasal spray Use 2 Sprays in each nostril once daily. - Insulin Whitman, Disposable, (PEN NEEDLE) 32 gauge x 5/32 Inject 1 Each subcutaneously every 24 hours. Give with each insulin administration. - Insulin Syringe-Needle U-100 0.5 mL 31 gauge x 5/16 Inject 1 Each subcutaneously every 24 hours. Give with each insulin administration. - aspirin, enteric coated (ADULT LOW DOSE ASPIRIN) 81 mg EC tablet Take 1 tablet by mouth once daily. - insulin glargine 100 unit/mL (3 mL) Inject 20 Units subcutaneously once daily. - rosuvastatin (CRESTOR) 10 mg tablet Take 1 tablet by mouth daily at bedtime. Meds Comments as of 10/23/2023: 10/23/23 The medications are managed by this patient by: PATIENT OPHELIA Crooks Problem List As Of Date 04/29/2024 Not (more content not included)... Normal [facility]OVon 04-27-2024 [facility] Office Visit ([facility]) VENKAT MARSH ([id number]) 1965 M Date Time Provider Department 04/27/24 3:45 PM BOO KIRANCORKY During your visit today, we recorded the following information about you: Pulse Respiration Blood pressure Weight 87/minute 22/minute 137/93 128.4 kg Boo Kiran APRN.ELEMENTARY SUPERVISOR 05/13/2024 7:55 AM Addendum PRIMARY CARE PHYSICIAN: Duncan Craven [address] [place] [address] Chief Complaint Patient presents with: CHF: First OV/needs educ HISTORY OF PRESENT ILLNESS: Mr. Marsh is a 58 year old male who is known to Dr. Ponce seen by Dr. Carrington with most recent hospitalization Patient has a significant history of CAD s/p remote OK with PCI to LAD in 2011, hypertension, hyperlipidemia, T2DM, ELBERT not on CPAP therapy, tobacco abuse and morbid obesity. Left heart cath 03/2024 mild coronary disease NM Stress -- Ejection fraction 03/2024 was 17% diastolic not evaluated due to AF Patient dry weight 299 when he went into the hospital Patient current weight 283lb ---ADDENDUM UPDATED THE WT CORRECTLY 05/13/2024 Patient presented to [facility] 04/13/2024 with complaints of worsening shortness of breath and lower extremity edema x 6 weeks. Recent outpatient echocardiogram revealed LVEF of 17%, plan was for left heart catheterization which was scheduled for 04/15/2024. Patient had become more concerned with his worsening shortness of breath and presented to the ED for further evaluation. In ED, EKG showed atrial flutter with no acute ischemic changes. Cardiology was consulted and patient was evaluated by Dr. Carrington. He was recommended to undergo left heart catheterization which revealed mild CAD, LAD stent with 20% ISR, RCA stent with mild ISR. GDMT with metoprolol XL, Jardiance and Entresto. Patient's atrial fibrillation fluctuated between fib flutter normal sinus rhythm with AV block. Plan was Eliquis and a 2-week patch monitor upon discharge. Patient seen today as a new patient referral from primary care. Patient is extremely talkative flight of ideas needed reoriented multiple multiple times throughout our visit. He is however very pleasant he states he is willing to learn. Discussed heart failure in general many reasons that can cause it. Unfortunately patient has done cocaine in the past for multiple years from the early s to the mid , patient believes he has sleep apnea, patient has an absorbent amount of caffeine per day, patient has had high blood pressure in the past he states, CAD, atrial fibrillation, nicotine, spent time discussing each 1 of these items and how they relate to heart failure. Spent time discussing fluid and salt restrictions. Patient was given packets of information today. Unsure how much he retains due to the fact have to reorient him multiple times will need close follow-up and have this reinforced. With review of medication patient has been noncompliant. Patient gives multiple answers on each medication to different staff members myself and nurses of when he was actually taking them or not taking them. Patient states he googled his medications then gets nervous so he does not take them and then the next day he will take it. He has not taken his Entresto for approximately 3 days is what he told the nurse he told me he took the Entresto this morning. Completely unclear of what patient is actually doing with his medications. Long discussion today on the importance of GDMT. Reviewed each 1 added Aldactone today with follow-up blood work. At this time patient is agreeable to taking his GDMT heart medications with follow-up blood work. Will have close follow-up to continue to reinforce this. Patient is to begin weighing himself monitor his blood pressure and heart rate at home and share their issues results with us. At this time patient denies any cardiac complaints On exam rather benign however he has an extremely large abdomen slightly tight this could be harboring some fluid. Patient is currently drinking well over 64 ounces and eating well over 2000 mg of salt per day. At this time we will work on decreasing both fluid and salt intake continue the Lasix at current dose close follow-up to see if we need to change the Lasix dosing. Pt denies chest pain, leg swelling, shortness of breath, heart palpitations, orthopnea, cough, fever, dizziness, near syncope or syncope, nausea, vomiting diaphoresis, or falls Reviewed with patient and adjusted as needed : PMH, PSH, Fam hx, Social hx, Allergies. Medications: Current Outpatient Medications Medication Sig Dispense Refill dulaglutide (TRULICITY) 0.75 mg/0.5 mL pen injector Inject 0.75 mg subcutaneously one time a week. Monitor bs closely and keep food log 6 mL 0 metFORMIN (GLUCOPHAGE) 1,000 mg tablet Take 1 tablet by mouth two times a (more content not included)... Normal [facility] 04-18-2024 [facility] Telephone ([facility]) VENKAT MARSH ([id number]) 1965 M Date Time Provider Department 04/18/24 RADHA MONTOYA [facility] During your visit today, we recorded the following information about you: Radha Hartman 04/18/2024 3:03 PM Signed Patient was discharged from [facility] 04-15-24 with an order to schedule with the [facility]. The patient is scheduled with the [facility] for an office visit 04-27-24, which was scheduled at a recent discharge. However, the patient missed their TeleHealth appointment. Attempted to reach patient, however, voice mail was full, will send Avidbots message. Allergies As of Date: 04/18/2024 Noted Allergy Reaction AMOXICILLIN-POT CLAVULANATE 12/23/2023 10 - Anaphylaxis 7 - Swelling METFORMIN 04/26/2023 6 - Diarrhea LISINOPRIL 04/24/2023 3 - Cough SULFAMETHOXAZOLE-TRIM ETHOPRIM 10/20/2009 2 - Rash 4 - Hives 7 - Swelling Date Reviewed: 04/13/2024 Reviewed by: Chalo Workman MD - Fully Assessed Reason for Visit: Orders [681] Cmt: AG [facility] order contact/ltr Prescriptions as of 04/18/2024 - metoprolol succinate ER (TOPROL XL) 25 mg 24 hr tablet Take 25 mg by mouth once daily. - sacubitril-valsartan (ENTRESTO) 24-26 mg tablet Take 1 tablet by mouth two times a day. - apixaban (ELIQUIS) 5 mg tab(s) Take 1 tablet by mouth two times a day. - furosemide (LASIX) 40 mg tablet Take 1 tablet by mouth once daily. Patient should start on April 16, 2024. - benzonatate (TESSALON PERLE) 100 mg capsule Take 100 mg by mouth three times a day as needed for cough. - magnesium, aluminum hydroxide (MYLANTA ORAL) Take 5 mL by mouth two times a day as needed (heartburn). - nystatin (MYCOSTATIN) 100,000 unit/mL suspension Take 100,000 Units by mouth four times daily. Swish and swallow. 5 ml 4times daily - empagliflozin (JARDIANCE) 10 mg tablet Take 1 tablet by mouth daily with breakfast. - mirtazapine (REMERON) 15 mg tablet Take 1 tablet by mouth daily at bedtime. - traZODone (DESYREL) 100 mg tablet Take 1 tablet by mouth daily at bedtime. - albuterol HFA (PROVENTIL HFA, VENTOLIN HFA) 90 mcg/actuation inhaler Inhale 2 Puffs as instructed every 4 hours as needed for wheezing/shortness of breath. - dulaglutide (TRULICITY) 0.75 mg/0.5 mL pen injector Inject 0.75 mg subcutaneously one time a week. Monitor bs closely and keep food log - fluticasone (FLONASE) 50 mcg/actuation nasal spray Use 2 Sprays in each nostril once daily. - Insulin Whitman, Disposable, (PEN NEEDLE) 32 gauge x 5/32 Inject 1 Each subcutaneously every 24 hours. Give with each insulin administration. - Insulin Syringe-Needle U-100 0.5 mL 31 gauge x 5/16 Inject 1 Each subcutaneously every 24 hours. Give with each insulin administration. - aspirin, enteric coated (ADULT LOW DOSE ASPIRIN) 81 mg EC tablet Take 1 tablet by mouth once daily. - insulin glargine 100 unit/mL (3 mL) Inject 20 Units subcutaneously once daily. - levothyroxine (SYNTHROID) 125 mcg tablet Take 1 tablet by mouth daily before breakfast. - metFORMIN (GLUCOPHAGE) 1,000 mg tablet Take 1 tablet by mouth two times a day. - rosuvastatin (CRESTOR) 10 mg tablet Take 1 tablet by mouth daily at bedtime. Facility-Administered Medications as of 04/18/2024 - regadenoson 0.4 mg injection (LEXISCAN) - aminophylline 50-100 mg injection - metoprolol 2.5-5 mg injection (LOPRESSOR) - perflutren lipid microspheres 1.3 mL in NaCl (PF) 0.9% 10 mL injection (DEFINITY) - sodium chloride 0.9 % (flush) 10 mL (BD POSIFLUSH) Meds Comments as of 10/23/2023: 10/23/23 The medications are managed by this patient by: PATIENT OPHELIA Crooks Problem List As Of Date 04/18/2024 Noted Resolved CAD (coronary artery disease) [I25.10] 09/04/2014 S/P coronary artery stent placement [Z95.5] 09/04/2014 Left bundle branch block (LBBB) on electrocardi*09/04/20 14 H/O myocardial infarction, greater than 8 weeks*09/04/2014 Tobacco abuse [Z72.0] 09/04/2014 Obesity [E66.9] 09/04/2014 Status post insertion of drug-eluting stent int*11/17/2016 Non morbid obesity due to excess calories [E66.*11/17/2016 Obesity, Class III, BMI >= 40 [E66.01] 05/11/2023 Hypercholesteremia [E78.00] HTN (hypertension) [I10] Schizoaffective disorder, bipolar type (HCC) [F*09/10/2023 11/02/2023 Cocaine dependence in remission (HCC) [F14.21] 09/10/2023 Hypothyroidism [E03.9] Diabetes mellitus (HCC) [E11.9] Cataract, nuclear sclerotic, both eyes [H25.13] 10/23/2023 Hyperopia of both eyes [H52.03] 10/23/2023 Regular astigmatism of both eyes [H52.223] 10/23/2023 Presbyopia of both eyes [H52.4] 10/23/2023 Mood disorder (HCC) [F39] 11/02/2023 Acute systolic HF (heart failure) (HCC) [I50.21]04/13/2024 Acute on chronic systolic (congestive) heart fa*04/13/2024 04/15/2024 Atrial fib/flutter, transient (HCC) [I48.91, I4*04/14/2024 Mixed hyperlipidemia [E78.2] 04/14/2024 Mor (more content not included)... Normal [facility] Basic metabolic 2000 panelon 04-15-2024 Anion gap [Moles/Vol] 13 mmol/L Normal 8-15 [facility] Comment on above: Order Comment: Speci men Type: BLOOD SPECIMEN Ordering Facility: [facility] Address: [address] [place] [address] Performed By: #### 1 4979-9 #### [facility] CLIA [id number] [address] [place] [address] [place] Calcium [Mass/Vol] 8.5 mg/dL Normal 8.5-10.2 [facility] Comment on above: Order Comment: Speci men Type: BLOOD SPECIMEN Ordering Facility: [facility] Address: [address] [place] [address] Performed By: #### 1 4979-9 #### [facility] CLIA [id number] [address] [place] [address] [place] Chloride [Moles/Vol] 97 mmol/L Low 98-107 [facility] Comment on above: Order Comment: Speci men Type: BLOOD SPECIMEN Ordering Facility: [facility] Address: [address] [place] [address] Performed By: #### 1 4979-9 #### [facility] CLIA [id number] [address] [place] [address] [place] CO2 [Moles/Vol] 25 mmol/L Normal 22-30 [facility] Comment on above: Order Comment: Speci men Type: BLOOD SPECIMEN Ordering Facility: [facility] Address: [address] [place] [address] Performed By: #### 1 4979-9 #### [facility] CLIA [id number] [address] [place] [address] [place] Creatinine [Mass/Vol] 1.48 mg/dL High 0.73-1.22 [facility] Comment on above: Order Comment: Jazmin jolley Type: BLOOD SPECIMEN Ordering Facility: [facility] Address: [address] [place] [address] Performed By: #### 1 4979-9 #### [facility] CLIA [id number] [address] [place] [address] [place] Creatinine and Glomerular filtration rate.predicted panel (S/P/Bld) 54 mL/min/1.73m??? Low >=60 [facility] Comment on above: Order Comment: Jazmin jolley Type: BLOOD SPECIMEN Ordering Facility: [facility] Address: [address] [place] [address] Result Comment: Eli mated Glomerular Filtration Rate (eGFR) is calculated using the 2020 CKD-EPI creatinine equation. This equation utilizes serum creatinine, sex, and age as parameters. The creatinine assay has traceable calibration to isotope dilution-mass spectrometry. Refer to KDIGO guidelines for clinical interpretation. In patients with unstable renal function, e.g. those with acute kidney injury, the eGFR may not accurately reflect actual GFR. Performed By: #### 1 4979-9 #### [facility] CLIA [id number] [address] [place] [address] [place] Glucose [Mass/Vol] 176 mg/dL High 74-99 [facility] Comment on above: Order Comment: Jazmin jolley Type: BLOOD SPECIMEN Ordering Facility: [facility] Address: [address] [place] [address] Result Comment: The [place] Diabetes [employer] (ADA) provides guidance for cutoff values for fasting glucose and random glucose. The ADA defines fasting as no caloric intake for at least 8 hours. Fasting plasma glucose results between 100 to 125 mg/dL indicate increased risk for diabetes (prediabetes). Fasting plasma glucose results greater than or equal to 126 mg/dL meet the criteria for diagnosis of diabetes. In the absence of unequivocal hyperglycemia, results should be confirmed by repeat testing. In a patient with classic symptoms of hyperglycemia or hyperglycemic crisis, random plasma glucose results greater than or equal to 200 mg/dL meet the criteria for diagnosis of diabetes. Reference: Standards of Medical Care in Diabetes 2016, [place] [employer]. Diabetes Care. 2016.39(Suppl 1). Performed By: #### 1 4979-9 #### [facility] CLIA [id number] [address] Potassium [Moles/Vol] 3.9 mmol/L Normal 3.7-5.1 [facility] Comment on above: Order Comment: Speci men Type: BLOOD SPECIMEN Ordering Facility: [facility] Address: [address] [place] [address] Performed By: #### 1 4979-9 #### [facility] CLIA [id number] [address] Sodium [Moles/Vol] 135 mmol/L Low 136-144 [facility] Comment on above: Order Comment: Speci men Type: BLOOD SPECIMEN Ordering Facility: [facility] Address: [address] [place] [address] Performed By: #### 1 4979-9 #### [facility] CLIA [id number] [address] STATES [facility] Urea nitrogen [Mass/Vol] 25 mg/dL High 9-24 [facility] Comment on above: Order Comment: Speci men Type: BLOOD SPECIMEN Ordering Facility: [facility] Address: [address] [place] [address] Performed By: #### 1 4979-9 #### [facility] CLIA [id number] [address] CBC panel Auto (Bld)on 04-15 Erythrocyte distribution width (RBC) [Ratio] 13.2 % Normal 11.5-15.0 [facility] Comment on above: Order Comment: Speci men Type: BLOOD SPECIMEN Ordering Facility: [facility] Address: [address] [place] [address] Performed By: #### H STNT #### [facility] CLIA [id number] [address] Hematocrit (Bld) [Volume fraction] 50.9 % Normal 39.0-51.0 [facility] Comment on above: Order Comment: Speci men Type: BLOOD SPECIMEN Ordering Facility: [facility] Address: [address] [place] [address] Performed By: #### H STNT #### [facility] CLIA [id number] [address] Hemoglobin (Bld) [Mass/Vol] 16.8 g/dL Normal 13.0-17.0 [facility] Comment on above: Order Comment: Speci men Type: BLOOD SPECIMEN Ordering Facility: [facility] Address: [address] [place] [address] Performed By: #### H STNT #### [facility] CLIA [id number] [address] STATES OF [facility] MCH (RBC) [Entitic mass] 31.2 pg Normal 26.0-34.0 [facility] Comment on above: Order Comment: Speci men Type: BLOOD SPECIMEN Ordering Facility: [facility] Address: [address] [place] [address] Performed By: #### H STNT #### [facility] CLIA [id number] [address] OF [facility] MCHC (RBC) [Mass/Vol] 33.0 g/dL Normal 30.5-36.0 [facility] Comment on above: Order Comment: Speci men Type: BLOOD SPECIMEN Ordering Facility: [facility] Address: [address] [place] [address] Performed By: #### H STNT #### [facility] CLIA [id number] [address] MCV (RBC) [Entitic vol] 94.6 fL Normal 80.0-100.0 [facility] Comment on above: Order Comment: Speci men Type: BLOOD SPECIMEN Ordering Facility: [facility] Address: [address] [place] [address] Performed By: #### H STNT #### [facility] CLIA [id number] [address] [place] Nucleated RBC (Bld) [#/Vol] 10*3/uL Normal <0.01 [facility] Comment on above: Order Comment: Speci men Type: BLOOD SPECIMEN Ordering Facility: [facility] Address: [address] [place] [address] Performed By: #### H STNT #### [facility] CLIA [id number] [address] [place] Platelet mean volume (Bld) [Entitic vol] 10.7 fL Normal 9.0-12.7 [facility] Comment on above: Order Comment: Speci men Type: BLOOD SPECIMEN Ordering Facility: [facility] Address: [address] [place] [address] Performed By: #### H STNT #### [facility] CLIA [id number] [address] [place] Platelets (Bld) [#/Vol] 224 10*3/uL Normal 150-400 [facility] Comment on above: Order Comment: Speci men Type: BLOOD SPECIMEN Ordering Facility: [facility] Address: [address] [place] [address] Performed By: #### H STNT #### [facility] CLIA [id number] [address] [place] RBC (Bld) [#/Vol] 5.38 10*6/uL Normal 4.20-6.00 [facility] Comment on above: Order Comment: Speci men Type: BLOOD SPECIMEN Ordering Facility: [facility] Address: [address] [place] [address] Performed By: #### H STNT #### [facility] CLIA [id number] [address] [place] WBC (Bld) [#/Vol] 9.97 10*3/uL Normal 3.70-11.00 [facility] Comment on above: Order Comment: Speci men Type: BLOOD SPECIMEN Ordering Facility: [facility] Address: [address] [place] [address] Performed By: #### H STNT #### [facility] CLIA [id number] [address] [place] [id number] [facility] CNDS 04-15-2024 CNDS HNO ID: [id number] Author: LUKAS DSOUZA DO Service: Hospital Medicine Author Type: Physician Type: Discharge Summary Filed: 04/15/2024 10:26 Note Text: DISCHARGE SUMMARY PATIENT NAME: Venkat Marsh Code Status: Full Code Highest Readmission Risk Score: 19 The 30 day readmissions risk score is derived from an internally validated risk model which evaluates patient level characteristics, utilization history, medication orders and lab results up until the day of discharge. Patients with a score of 40 or above are considered highest risk for readmission. Specific patient level drivers will be listed at the bottom of the summary. Admission Information Admission Information ADMIT DATE: 04/13/2024 DISCHARGE DATE: 04/15/24 MY DOCTORS AND MEDICAL TEAM: My Main Hospital Doctor: Lukas Dsouza DO Primary Care Provider: Duncan Craven MD My Medical Team Members: Treatment Team: Attending Provider: Luksa Dsouza DO Attending: Chalo Workman MD Consulting: Orlando Burns MD Primary Service: [facility] CAMARENA MY CONDITION AT DISCHARGE: Stable REASON I WAS IN THE HOSPITAL: HF SUMMARY OF WHAT HAPPENED WHILE I WAS IN THE HOSPITAL: 58 year old male with hx of bipolar disorder, CAD, diabetes, HTN, HL, and hypothyroidism who presents with 6 weeks of worsening shortness of breath. He finally had an echocardiogram after putting if off for a year and found out that his EF was 17%. Principal Problem: Acute systolic and diastolic HF with EF 17% -- heart cath 04/14 GDMT - lo entresto. Metoprolol, dapagliflozin and lasix Hypokalemia - resolved Atrial flutter On eliquis now Currently rate controlled Continued to monitor on tele Diabetes uncontrolled. Improve glucose control outpatient Hypothyroidism -- continue Synthroid -- TSH 3.680 HL -- continue statin OTHER PROBLEMS/DIAGNOSIS: Principal Problem: Acute systolic HF (heart failure) (HCC) Active Problems: Atrial fib/flutter, transient (HCC) Mixed hyperlipidemia Morbid obesity (HCC) Essential hypertension Chronic systolic CHF (congestive heart failure) (HCC) Resolved Problems: Acute on chronic systolic (congestive) heart failure (HCC) OPERATIONS PERFORMED WHILE IN THE HOSPITAL: None IMPORTANT TEST/PROCEDURES: Heart Catheterization: No intervention TEST RESULTS NOT AVAILABLE AT THIS TIME: No pending results Discharge Disposition Discharge Disposition: Home With Self Care Additional Provider to Provider Information: No notes on file Treatment Team: Attending Provider: Lukas Dsouza DO Attending: Chalo Workman MD Consulting: Orlando Burns MD Primary Service: [facility] Critical Issues: SPECIALIST FOLLOW-UP: Cardiology LABS AND PROCEDURES PENDING AT DISCHARGE: No pending results. FOLLOW-UP APPOINTMENTS ALREADY SCHEDULED WITH A [facility] PROVIDER: Future Appointments Date Time Provider Department Center 04/19/2024 9:00 AM Antonia Case MD AG[facility] 04/27/2024 3:45 PM Boo Kiran APRN.ELEMENTARY SUPERVISOR [facility] 05/06/2024 11:00 AM Yuliet Fong DO AR[facility] ALLERGIES Allergen Reactions Amoxicillin-Pot Cla* Anaphylaxis, Swelling Metformin Diarrhea Lisinopril Cough Sulfamethoxazole-Tr* Rash, Hives, Swelling DISCHARGE MEDICATION: Medication List START taking these medications apixaban 5 mg tab(s) Commonly known as: ELIQUIS Take 1 tablet by mouth two times a day. rosuvastatin 10 mg tablet Commonly known as: CRESTOR Take 1 tablet by mouth daily at bedtime. sacubitril-valsartan 24-26 mg tablet Commonly known as: ENTRESTO Take 1 tablet by mouth two times a day. CHANGE how you take these medications furosemide 40 mg tablet Commonly known as: LASIX Take 1 tablet by mouth once daily. Patient should start on April 16, 2024. Start taking on: April 16, 2024 What changed: medication strength how much to take CONTINUE taking these medications albuterol HFA 90 mcg/actuation inhaler Commonly known as: PROVENTIL HFA, VENTOLIN HFA Inhale 2 Puffs as instructed every 4 hours as needed for wheezing/shortness of breath. aspirin, enteric coated 81 mg EC tablet Commonly known as: ADULT LOW DOSE ASPIRIN Take 1 tablet by mouth once daily. benzonatate 100 mg capsule Commonly known as: TESSALON PERLE dulaglutide 0.75 mg/0.5 mL pen injector Commonly known as: TRULICITY Inject 0.75 mg subcutaneously one time a week. Monitor bs closely and keep food log empagliflozin 10 mg tablet Commonly known as: JARDIANCE Take 1 tablet by mouth daily with breakfast. fluticasone 50 mcg/actuation nasal spray Commonly known as: FLONASE Use 2 Sprays in each nostril once daily. insulin glargine 100 unit/mL (3 mL) Inject 20 Units subcutaneously once daily. Insulin Whitman (Disposable) 32 gauge x 5/32 Commonly known as: PEN NEEDLE Inject 1 Each subcutaneously every 24 hours. (more content not included)... Normal [facility] 04-15-2024 [facility] Telephone ([facility] ) VENKAT MARSH ([id number]) 1965 M Date Time Provider Department 04/15/24 BHANU EDMONDSON During your visit today, we recorded the following information about you: Bhanu Edmondson APRN.CNP 04/15/2024 2:18 PM Signed Pt was recently seen in the hospital for CHF. Please reach out to patient to schedule follow up visit with Dr. Ponce or VINITA. Patient should be seen in 6-8 weeks. Thanks Bhanu Edmondson APRN.Bhanu Merritt APRN.CNP 04/15/2024 3:53 PM Signed Patient will also need a bmp in 7-10 days. Order has been placed NANDO Yañez September R 04/18/2024 3:08 PM Signed LVM scheduled with 06-20 at 3:30 pm in [place] with Bhanu Edmondson. Thanks Jessica Fitzgerald Allergies As of Date: 04/15/2024 Noted Allergy Reaction AMOXICILLIN-POT CLAVULANATE 12/23/2023 10 - Anaphylaxis 7 - Swelling METFORMIN 04/26/2023 6 - Diarrhea LISINOPRIL 04/24/2023 3 - Cough SULFAMETHOXAZOLE-TRIM ETHOPRIM 10/20/2009 2 - Rash 4 - Hives 7 - Swelling Date Reviewed: 04/13/2024 Reviewed by: Chalo Workman MD - Fully Assessed Reason for Visit: Appointment [186] Cmt: Primary Visit Diagnosis:HFrEF (heart failure with reduced ejection fraction) ([facility]) [I50.20] Order(s):BASIC METABOLIC PANEL [SQBMP] Order #: [id number] FUTURE Prescriptions as of 04/18/2024 - metoprolol succinate ER (TOPROL XL) 25 mg 24 hr tablet Take 25 mg by mouth once daily. - sacubitril-valsartan (ENTRESTO) 24-26 mg tablet Take 1 tablet by mouth two times a day. - apixaban (ELIQUIS) 5 mg tab(s) Take 1 tablet by mouth two times a day. - furosemide (LASIX) 40 mg tablet Take 1 tablet by mouth once daily. Patient should start on April 16, 2024. - benzonatate (TESSALON PERLE) 100 mg capsule Take 100 mg by mouth three times a day as needed for cough. - magnesium, aluminum hydroxide (MYLANTA ORAL) Take 5 mL by mouth two times a day as needed (heartburn). - nystatin (MYCOSTATIN) 100,000 unit/mL suspension Take 100,000 Units by mouth four times daily. Swish and swallow. 5 ml 4times daily - empagliflozin (JARDIANCE) 10 mg tablet Take 1 tablet by mouth daily with breakfast. - mirtazapine (REMERON) 15 mg tablet Take 1 tablet by mouth daily at bedtime. - traZODone (DESYREL) 100 mg tablet Take 1 tablet by mouth daily at bedtime. - albuterol HFA (PROVENTIL HFA, VENTOLIN HFA) 90 mcg/actuation inhaler Inhale 2 Puffs as instructed every 4 hours as needed for wheezing/shortness of breath. - dulaglutide (TRULICITY) 0.75 mg/0.5 mL pen injector Inject 0.75 mg subcutaneously one time a week. Monitor bs closely and keep food log - fluticasone (FLONASE) 50 mcg/actuation nasal spray Use 2 Sprays in each nostril once daily. - Insulin Whitman, Disposable, (PEN NEEDLE) 32 gauge x 5/32 Inject 1 Each subcutaneously every 24 hours. Give with each insulin administration. - Insulin Syringe-Needle U-100 0.5 mL 31 gauge x 5/16 Inject 1 Each subcutaneously every 24 hours. Give with each insulin administration. - aspirin, enteric coated (ADULT LOW DOSE ASPIRIN) 81 mg EC tablet Take 1 tablet by mouth once daily. - insulin glargine 100 unit/mL (3 mL) Inject 20 Units subcutaneously once daily. - levothyroxine (SYNTHROID) 125 mcg tablet Take 1 tablet by mouth daily before breakfast. - metFORMIN (GLUCOPHAGE) 1,000 mg tablet Take 1 tablet by mouth two times a day. - rosuvastatin (CRESTOR) 10 mg tablet Take 1 tablet by mouth daily at bedtime. Facility-Administered Medications as of 04/18/2024 - regadenoson 0.4 mg injection (LEXISCAN) - aminophylline 50-100 mg injection - metoprolol 2.5-5 mg injection (LOPRESSOR) - perflutren lipid microspheres 1.3 mL in NaCl (PF) 0.9% 10 mL injection (DEFINITY) - sodium chloride 0.9 % (flush) 10 mL (BD POSIFLUSH) Meds Comments as of 10/23/2023: 10/23/23 The medications are managed by this patient by: PATIENT OPHELIA Crooks Problem List As Of Date 04/15/2024 Noted Resolved CAD (coronary artery disease) [I25.10] 09/04/2014 S/P coronary artery stent placement [Z95.5] 09/04/2014 Left bundle branch block (LBBB) on electrocardi*09/04/20 14 H/O myocardial infarction, greater than 8 weeks*09/04/2014 Tobacco abuse [Z72.0] 09/04/2014 Obesity [E66.9] 09/04/2014 Status post insertion of drug-eluting stent int*11/17/2016 Non morbid obesity due to excess calories [E66.*11/17/2016 Obesity, Class III, BMI >= 40 [E66.01] 05/11/2023 Hypercholesteremia [E78.00] HTN (hypertension) [I10] Schizoaffective disorder, bipolar type (HCC) [F*09/10/2023 11/02/2023 Cocaine dependence in remission (HCC) [F14.21] 09/10/2023 Hypothyroidism [E03.9] Diabetes mellitus (HCC) [E11.9] Cataract, nuclear sclerotic, both eyes [H25.13] 10/23/2023 Hyperopia of both eyes [H52.03] 10/23/2023 Regular astigmatism of both eyes [H52.223] 10/23/2023 Presbyopia of both eyes [H52.4] 10/23/2023 Mood disorder ( (more content not included)... Normal [facility] CONSULT PROGon 04-15-2024 CONSULT PROG HNO ID: [id number] Author: BHANU EDMONDSON APRN.ELEMENTARY SUPERVISOR Service: Clinical Cardiology Author Type: Nurse Practitioner Type: Consult Progress Note Filed: 04/15/2024 12:34 Note Text: CARDIOLOGY CONSULT PROGRESS NOTE CARDIOLOGY ATTENDING: Deven Carrington M.D. / Yousuf Ponce M.D. as outpatient Date and Reason for initial consult: CHF INTERVAL HISTORY: This is a 58-year-old male with past medical history significant for CAD s/p remote OK with PCI to LAD in 2011, hypertension, hyperlipidemia, T2DM, ELBERT not on CPAP therapy, tobacco abuse and morbid obesity. Previous history of cardiomyopathy with a EF of 45 to 50% in 2011. Patient was lost to follow-up for many years and recently reestablished care with Dr. Ponce. Patient presented to [facility] 04/13/2024 with complaints of worsening shortness of breath and lower extremity edema x 6 weeks. Recent outpatient echocardiogram revealed LVEF of 17%, plan was for left heart catheterization which was scheduled for 04/15/2024. Patient had become more concerned with his worsening shortness of breath and presented to the ED for further evaluation. In ED, EKG showed atrial flutter with no acute ischemic changes, high-sensitivity AYAZ 40>41>45>45, with no significant delta. Cardiology was consulted and patient was evaluated by Dr. Carrington. He was recommended to undergo left heart catheterization which revealed mild CAD, LAD stent with 20% ISR, RCA stent with mild ISR. GDMT with metoprolol XL, Jardiance and Entresto. In terms of atrial fibrillation/atrial flutter. On outpatient echocardiogram patient was noted to have atrial fibrillation and then subsequent EKG in ED showed atrial flutter. Repeat EKG today showed normal sinus rhythm with first-degree AV block and IVCD. Telemetry reviewed, intermittent episodes of atrial flutter noted, rates controlled. Patient was started on Eliquis and discharged on a 2-week patch monitor. Patient seen today ambulating in room, in no acute distress. Patient was frustrated and wanting to leave AMA. Long discussion had in regards to heart failure, heart failure core measures and atrial fibrillation. Patient agreeable to stay and get patch monitor placed prior to discharge. Reviewed medications and medication changes with patient. Patient will need BMP in 7 to 10 days to reassess kidney function. Patient verbalized understanding. PERTINENT ROS: Patient denies any complaints of chest pain, shortness of breath. Reports improved lower extremity edema. MEDICATIONS: Current Facility-Administered Medications Medication Dose Route Frequency NaCl 0.9% iv flush bag 20 mL INTRAVENOUS PRN mirtazapine 15 mg (REMERON) 15 mg ORAL AT BEDTIME empagliflozin 10 mg tab(s) (JARDIANCE) 10 mg ORAL DAILY WITH BREAKFAST rosuvastatin 10 mg tab(s) (CRESTOR) 10 mg ORAL AT BEDTIME albuterol HFA 90 mcg/actuation 2 Puff (PROVENTIL HFA, VENTOLIN HFA) 2 Puff INHALATION q 4 H PRN metoprolol succinate ER 25 mg tab(s) (TOPROL XL) 25 mg ORAL DAILY insulin glargine 20 Units pen (long acting) 20 Units SUBCUTANEOUS DAILY (8 AM) aspirin, enteric coated 81 mg tab(s) 81 mg ORAL DAILY traZODone 100 mg tab(s) (DESYREL) 100 mg ORAL AT BEDTIME levothyroxine 125 mcg tab(s) (SYNTHROID) 125 mcg ORAL DAILY (6 AM) dextrose 15 gram/32 mL 15 g (TRUEPLUS) 15 g ORAL PRN Or glucagon 1 mg injection 1 mg INTRAMUSCULAR PRN Or dextrose 10% iv bolus 12.5 g INTRAVENOUS PRN insulin lispro injection (rapid acting) (ADMElog) SUBCUTANEOUS w MEALS insulin lispro injection (rapid acting) (ADMElog) SUBCUTANEOUS AT BEDTIME nitroglycerin sublingual 0.4 mg tab(s) (NITROQUICK) 0.4 mg SUBLINGUAL q 5 MIN PRN atropine 0.4 mg injection 0.4 mg INTRAVENOUS PRN(NO DISPENSE) baclofen 20 mg tab(s) 20 mg ORAL TID PRN oxyCODONE-acetaminoph en 5-325 mg 1-2 tablet (PERCOCET) 1-2 tablet ORAL q 6 H PRN acetaminophen 650 mg tab(s) (TYLENOL) 650 mg ORAL q 6 H PRN apixaban 5 mg tab(s) (ELIQUIS) 5 mg ORAL BID sacubitril-valsartan 24-26 mg 1 tablet (ENTRESTO) 1 tablet ORAL BID [START ON 04/16/2024] furosemide 40 mg tab(s) (LASIX) 40 mg ORAL DAILY PHYSICAL EXAM: Vital Signs 04/15/24 0257 04/15/24 0614 04/15/24 0710 04/15/24 1055 BP: 149/113 143/106 135/99 Pulse: 80 84 85 Resp: 16 16 18 Temp: 36.2 ?C (97.2 ?F) 37.2 ?C (98.9 ?F) TempSrc: Oral Axillary Oral SpO2: 98% 98% 94% Weight: 129.9 kg (286 lb 6 oz) Height: Temp (24hrs), Av.9 ?C (98.4 ?F), Min:36 ?C (96.8 ?F), Max:37.2 ?C (99 ?F) Intake/Output: Intake/Output Summary (Last 24 hours) at 04/15/2024 1204 Last data filed at 04/15/2024 0852 Gross per 24 hour Intake 220 ml Output 2650 ml Net -2430 ml Oxygen therapy: RA Admit Weight: 299 lbs / Current weight 286 lbs Gen: AANDO x 3 Neck: no jugular venous distention Cardiac: RRR without murmur, gallop, or rubs. Resp: Diminished bases Abd: Soft, non-tender. Bowel sounds normal. No masses, organomegaly, hernias. Ext: no edema, moves all extremities with no apparent w (more content not included)... Normal [facility] ECG COMPLETEon 04-15-2024 ECG COMPLETE Ventricular Rate : 9 1 BPM Atrial Rate : 91 BPM P-R Interval : 230 ms QRS Duration : 136 ms Q-T Interval : 416 ms QTC Calculation(Bazett) : 511 ms Calculated P Center Line : 49 degrees Calculated R Center Line : 129 degrees Calculated T Center Line : 236 degrees SINUS RHYTHM WITH 1ST DEGREE A-V BLOCK NON-SPECIFIC INTRA-VENTRICULAR CONDUCTION BLOCK ANTEROLATERAL INFARCT , AGE UNDETERMINED T WAVE ABNORMALITY, CONSIDER INFERIOR ISCHEMIA ABNORMAL ECG NO PREVIOUS ECGS AVAILABLE Confirmed by MD CLARK VINAY ([id number]) on 04/17/2024 4:38:03 PM NAME : VENKAT MARSH PID : [id number] : 1965 Gender : Male Race : ORD : [id number] Procedure Date : Apr 15 2024 09:14:41 Edit Date : Apr 17 2024 16:38:04 Diagnosis: SINUS RHYTHM WITH 1ST DEGREE A-V BLOCK NON-SPECIFIC INTRA-VENTRICULAR CONDUCTION BLOCK ANTEROLATERAL INFARCT , AGE UNDETERMINED T WAVE ABNORMALITY, CONSIDER INFERIOR ISCHEMIA ABNORMAL ECG NO PREVIOUS ECGS AVAILABLE Confirmed by MD CLARK VINAY ([id number]) on 04/17/2024 4:38:03 PM Test Reason : Arrhythmia Location : [address] : [place] [address] Overread By : MD CLARK VINAY Edited By : MD CLARK VINAY Referred By : , Acquired by : CARMELA BARNEY [facility] NURSING PROGon 04-15-2024 NURSING PROG HNO ID: [id number] Author: CARMINE MAY, Ingot Buggy Operator Service: ? Author Type: Ingot Buggy Operator Type: Nursing Progress Note Filed: 04/15/2024 11:41 Note Text: Applied 14 day extended wear EKG patch. Pt verbalized understanding of monitor use / diary. [facility] PT EDon 04-15-2024 PT ED HNO ID: [id number] Author: RACH ROA DTR Service: Nutrition Therapy Author Type: Financial Report Service Sales Agent Type: Patient Education Filed: 04/15/2024 13:14 Note Text: NUTRITION THERAPY PATIENT EDUCATION SERVICE DATE: 04/15/2024 SERVICE TIME: 1210 TOPIC: Diet: heart healthy Congestive Heart failure LEARNING ASSESSMENT Individuals Assessed: Patient Preferred Learning Method: No Preference Barriers to Learning: Emotional Factors and patient fell asleep twice during education with SOB and confusion. Reported events to RN. LEARNING RESPONSE Instruction Provided to: Patient Patient / Family Response: Verbalizes Understanding and Recommend Continued Instruction Method of Instruction: Teach Back . Individual instruction Written instruction/Handouts Verbal instruction Material(s) Provided to Patient: Mediterranean Diet Guidelines and Education Materials Provided Nutrition Education CCHS: Your Sodium Controlled Diet Follow-Up Plan: Recommend - Recommend continued instruction and follow up as directed Referral (Recommendation): heart failure clinic MNT Billing: $ Routine Care : 16-30 minutes SIGNATURE: Rach Roa DTR PATIENT NAME: Venkat Marsh DATE: April 15, 2024 TIME: 1:12 PM PAGER: Normal [facility] aPTT PPPon 04-15-2024 aPTT Coag (PPP) [Time] 50.5 s High 23.0-32.4 [facility] Comment on above: Order Comment: Speci men Type: BLOOD SPECIMEN Ordering Facility: [facility] Address: [address] [place] [address] Performed By: #### 1 4979-9 #### [facility] CLIA [id number] [address] [place] [address] OF [facility] BRIEF OP NOTon 04-14-2024 BRIEF OP NOT HNO ID: [id number] Author: MARTHA FARAH MD Service: Interventional Cardiology Author Type: Physician Type: Brief Op Note Filed: 04/14/2024 11:58 Note Text: LEFT HEART CATHETERIZATION PROCEDURE NOTE Surgery/Procedure Date: 04/14/2024 Referring Physician: Dr. Deven carrington MD Clinical History: This is a 58 year old male with known CAD, prior PCI to LAD and RCA, prior history of tobacco abuse, prior history of cocaine abuse, history of bipolar disorder, hypertension hyperlipidemia and diabetes, was lost to follow-up for the past several years, now presents with worsening dyspnea for the past 6 weeks. He was seen and evaluated by Dr. Ponce in the office few months ago and was recommended a 2D echo. A two-dimensional echo done on 04/12/2024 demonstrates severely reduced LV function EF being 15 to 20%. There was severe biventricular dilatation. He was found to have new onset A-fib. Given his presentation, he was referred for cardiac cath/PCI. Consent: Informed consent was obtained after the risks, benefits, and alternatives to and of this procedure were discussed in detail with the patient. Procedure in Detail: The patient was brought to the cardiac catheterization laboratory, prepped and draped in the usual sterile fashion. Local anesthesia was achieved over the right radial artery with 1% lidocaine. A pre-flushed 6-Dominican sheath was inserted into the right radial artery via the Seldinger technique without complications. Retrograde percutaneous diagnostic coronary angiography and LVEDP measures were performed using a Prasanna left 3.5 catheter, a JR4 catheter. There were no complications of the procedure. Findings: Angiography: LEFT MAIN: Has mild disease. Divides into LAD and nondominant circumflex. LEFT CIRCUMFLEX: Has ostial 40% stenosis. LEFT ANTERIOR DESCENDING: Has mild diffuse disease throughout. There is a patent stent in the proximal LAD. The proximal stage of the stent has focal 20% stenosis. RIGHT CORONARY ARTERY: Has patent stent in the proximal portion. It has mild ISR. LEFT VENTRICULOGRAPHY: Mildly elevated at 17 mmHg. Impressions: He is a 58-year-old male with risk factors for CAD, known CAD, prior PCI to RCA and LAD, now presents with new onset cardiomyopathy and A-fib. His cardiac catheterization demonstrates mild disease in coronaries. No evidence of any critical disease in the left or the right coronary artery. At this point, the procedure was terminated. All diagnostic wires and catheters were removed. Recommendations: 1. Daily aspirin indefinitely. Continue GDMT for heart failure for now. 2. Given elevated creatinine, will hold off of diuresis for today. May restart Lasix in the morning. 3. May remove TR band at 1 PM. If there is no access site issue at 5 PM, may restart heparin drip for A-fib. 4. Statin use 5. Secondary cardiac prevention measures. SIGNATURE: Martha Farah MD, MD PATIENT NAME: Venkat Marsh DATE: April 14, 2024 TIME: 11:50 AM Normal [facility] Basic metabolic 2000 panelon 04-14-2024 Anion gap [Moles/Vol] 11 mmol/L Normal 8-15 [facility] Comment on above: Order Comment: Speci men Type: BLOOD SPECIMEN Ordering Facility: [facility] Address: [facility] [place] [address] Performed By: #### 1 4979-9 #### [facility] CLIA [id number] [address] [place] [address] [place] Calcium [Mass/Vol] 8.8 mg/dL Normal 8.5-10.2 [facility] Comment on above: Order Comment: Speci men Type: BLOOD SPECIMEN Ordering Facility: [facility] Address: [address] [place] [address] Performed By: #### 1 4979-9 #### [facility] CLIA [id number] [address] [place] [address] [place] Chloride [Moles/Vol] 100 mmol/L Normal 98-107 [facility] Comment on above: Order Comment: Speci men Type: BLOOD SPECIMEN Ordering Facility: [facility] Address: [address] [place] [address] Performed By: #### 1 4979-9 #### [facility] CLIA [id number] [address] [place] [address] [place] CO2 [Moles/Vol] 30 mmol/L Normal 22-30 [facility] Comment on above: Order Comment: Speci men Type: BLOOD SPECIMEN Ordering Facility: [facility] Address: [address] [place] [address] Performed By: #### 1 4979-9 #### [facility] CLIA [id number] [address] [place] [address] [place] Creatinine [Mass/Vol] 1.54 mg/dL High 0.73-1.22 [facility] Comment on above: Order Comment: Speci men Type: BLOOD SPECIMEN Ordering Facility: [facility] Address: [address] [place] [address] Performed By: #### 1 4979-9 #### [facility] CLIA [id number] [address] Creatinine and Glomerular filtration rate.predicted panel (S/P/Bld) 51 mL/min/1.73m??? Low >=60 [facility] Comment on above: Order Comment: Speci men Type: BLOOD SPECIMEN Ordering Facility: [facility] Address: [address] [place] [address] Result Comment: Eli mated Glomerular Filtration Rate (eGFR) is calculated using the 2020 CKD-EPI creatinine equation. This equation utilizes serum creatinine, sex, and age as parameters. The creatinine assay has traceable calibration to isotope dilution-mass spectrometry. Refer to KDIGO guidelines for clinical interpretation. In patients with unstable renal function, e.g. those with acute kidney injury, the eGFR may not accurately reflect actual GFR. Performed By: #### 1 4979-9 #### [facility] CLIA [id number] [address] [place] [address] [place] Glucose [Mass/Vol] 205 mg/dL High 74-99 [facility] Comment on above: Order Comment: Jazmin jolley Type: BLOOD SPECIMEN Ordering Facility: [facility] Address: [address] [place] [address] Result Comment: The [place] Diabetes Association (ADA) provides guidance for cutoff values for fasting glucose and random glucose. The ADA defines fasting as no caloric intake for at least 8 hours. Fasting plasma glucose results between 100 to 125 mg/dL indicate increased risk for diabetes (prediabetes). Fasting plasma glucose results greater than or equal to 126 mg/dL meet the criteria for diagnosis of diabetes. In the absence of unequivocal hyperglycemia, results should be confirmed by repeat testing. In a patient with classic symptoms of hyperglycemia or hyperglycemic crisis, random plasma glucose results greater than or equal to 200 mg/dL meet the criteria for diagnosis of diabetes. Reference: Standards of Medical Care in Diabetes 2016, [place] [employer]. Diabetes Care. 2016.39(Suppl 1). Performed By: #### 1 4979-9 #### [facility] CLIA [id number] [address] [place] [address] [place] Potassium [Moles/Vol] 3.5 mmol/L Low 3.7-5.1 [facility] Comment on above: Order Comment: Jazmin jolley Type: BLOOD SPECIMEN Ordering Facility: [facility] Address: [address] [place] [address] Performed By: #### 1 4979-9 #### [facility] CLIA [id number] [address] [place] [address] [place] Sodium [Moles/Vol] 141 mmol/L Normal 136-144 [facility] Comment on above: Order Comment: Jazmin jolley Type: BLOOD SPECIMEN Ordering Facility: [facility] Address: [address] [place] [address] Performed By: #### 1 4979-9 #### [facility] CLIA [id number] [address] [place] [id number] [place] [facility] Urea nitrogen [Mass/Vol] 19 mg/dL Normal 9-24 [facility] Comment on above: Order Comment: Speci men Type: BLOOD SPECIMEN Ordering Facility: [facility] Address: [address] [place] [address] Performed By: #### 1 4979-9 #### [facility] CLIA [id number] [address] [place] [id number] [place] OF [facility] CARD CATH DIAGNOSTICon 04-14 CARD CATH DIAGNOSTIC Site Id: [facility] Lab #: DEFAULT Study Date: 04/14/2024 Start Time: End Time: Name Duty Martha Farah MD PROC 1 Denise Mckinnon RN PROC SCRUB 1 Nghia Schneider RN PROC CIRC 1 Porsha Man RN PROC RECORD 1 + + PATIENT INFORMATION + + Name: VENKAT MARSH [facility] : 1965 Age: 58 years Gender: Height: 67 in / 170 cm Weight: 287.25 lb / 130.30 kg BMI: 44.99 kg/m BSA: 2.36 m + --------+ CLINICAL HISTORY/INDICATIONS + --------+ Appropriate Use Criteria (Diag): Known or suspected cardiomyopathy with or without heart failure; AUC score = 7. Procedural Status: Urgent CAD Presentation: Stable Angina Angina Classification (within 2 weeks): CCS I Heart Failure: NYHA Class II Cardiomyopathy or LV Dysfunction Pre-Op Evaluation before Non-Card Surg: No Cardiogenic Shock: No Cardiac Arrest: No Clinical History: his is a 58 year old male with known CAD, prior PCI to LAD and RCA, prior history of tobacco abuse, prior history of cocaine abuse, history of bipolar disorder, hypertension hyperlipidemia and diabetes, was lost to follow-up for the past several years, now presents with worsening dyspnea for the past 6 weeks. He was seen and evaluated by Dr. Ponce in the office few months ago and was recommended a 2D echo. A two-dimensional echo done on 04/12/2024 demonstrates severely reduced LV function EF being 15 to 20%. There was severe biventricular dilatation. He was found to have new onset A-fib. Given his presentation, he was referred for cardiac cath/PCI. + + DIAGNOSTIC FINDINGS + + Coronary Anatomy: Right Dominant Injection Site(s): Coronary Artery LMT: _ The LMT has mild luminal irregularities. Additional Comment: Has mild disease. Divides into LAD and nondominant circumflex. LAD: _ The proximal LAD is narrowed 20 % - ISR. Additional Comment: Has mild diffuse disease throughout. There is a patent stent in the proximal LAD. The proximal stage of the stent has focal 20% stenosis. LCX: _ The proximal circumflex is narrowed 40 % - ostial. Additional Comment: Has ostial 40% stenosis. RAMUS: _ Ramus Status: Not Applicable. RCA: _ The proximal RCA is narrowed 20 % - ISR. Additional Comment: Has patent stent in the proximal portion. It has mild ISR. Left Ventriculogram:Mildly elevated at 17 mmHg. + + IMPRESSION/PLAN + + Impression:He is a 58-year-old male with risk factors for CAD, known CAD, prior PCI to RCA and LAD, now presents with new onset cardiomyopathy and A-fib. His cardiac catheterization demonstrates mild disease in coronaries. No evidence of any critical disease in the left or the right coronary artery. Recommended Treatment: Medical Therapy. Plan: 1. Daily aspirin indefinitely. Continue GDMT for heart failure for now. 2. Given elevated creatinine, will hold off of diuresis for today. May restart Lasix in the morning. 3. May remove TR band at 1 PM. If there is no access site issue at 5 PM, may restart heparin ip for A-fib. 4. Statin use 5. Secondary cardiac prevention measures + + HEMODYNAMICS - XPER + + + +--- ---+------+-------+-- ----+------+------+ Measurement Name Sys Leatha End Leatha Mean A Wave V Wave + +--- ---+------+-------+-- ----+------+------+ AO 142.00 77.00 93.00 + +--- ---+------+-------+-- ----+------+------+ LV 136.00 -5.00 11.00 + +--- ---+------+-------+-- ----+------+------+ LVp 131.00 -9.00 8.00 + +--- ---+------+-------+-- ----+------+------+ AOp 119.00 88.00 98.00 + +--- ---+------+-------+-- ----+------+------+ AO 129.00 92.00 104.00 + +--- ---+------+-------+-- ----+------+------+ AO 126.00 86.00 102.00 + +--- ---+------+-------+-- ----+------+------+ AO 117.00 85.00 101.00 + +--- ---+------+-------+-- ----+------+------+ AO 137.00 103.00 118.00 + +--- ---+------+-------+-- ----+------+------+ AO 126.00 94.00 107.00 + +--- ---+------+-------+-- ----+------+------+ Oximetry: + -+-------+ --+--+---+-----+ Time Site O2 Saturation O2 PO2 HB + -+-------+ --+--+---+-----+ 04/14/2024 11:04:07 AM SYS ART 16.60 + -+-------+ --+--+---+-----+ 04/14/2024 11:04:07 AM SYS YULY 16.60 + -+-------+ --+--+---+-----+ 04/14/2024 11:04:07 AM PUL ART 16.60 + -+-------+ --+--+---+-----+ 04/14/2024 11:04:07 AM PUL YULY 16.60 + -+-------+ --+--+---+ (more content not included)... Normal [facility] CBC W Auto Differential pane l (Bld)on 04-14-2024 Basophils (Bld) [#/Vol] 0.03 10*3/uL Normal <0.11 [facility] Comment on above: Order Comment: Jazmin jolley Type: BLOOD SPECIMENOrdering Facility: [facility] Address: [address] [place] [address] Performed By: #### 5 7021-8 ####[facility] LABORATORYCLIA [id number] [address] [place] Basophils/100 WBC (Bld) 0.3 % Normal A [facility] Comment on above: Order Comment: Jazmin jolley Type: BLOOD SPECIMENOrdering Facility: [facility] Address: [address] [place] [address] Performed By: #### 5 7021-8 ####[facility] LABORATORYCLIA [id number] [address] [place] Differential cell count method Nom (Bld) Auto Normal [facility] Comment on above: Order Comment: Speci men Type: BLOOD SPECIMENOrdering Facility: [facility] Address: [address] [place] [address] Performed By: #### 5 7021-8 ####[facility] LABORATORYCLIA [id number] [address] Eosinophils (Bld) [#/Vol] 0.39 10*3/uL Normal <0.46 [facility] Comment on above: Order Comment: Speci men Type: BLOOD SPECIMENOrdering Facility: [facility] Address: [address] [place] [address] Performed By: #### 5 7021-8 ####[facility] LABORATORYCLIA [id number] [address] Eosinophils/100 WBC (Bld) 3.9 % Normal [facility] Comment on above: Order Comment: Speci men Type: BLOOD SPECIMENOrdering Facility: [facility] Address: [address] [place] [address] Performed By: #### 5 7021-8 ####[facility] LABORATORYCLIA [id number] [address] Erythrocyte distribution width (RBC) [Ratio] 13.3 % Normal 11.5-15.0 [facility] Comment on above: Order Comment: Speci men Type: BLOOD SPECIMENOrdering Facility: [facility] Address: [address] [place] [address] Performed By: #### 5 7021-8 ####[facility] LABORATORYCLIA [id number] [address] Hematocrit (Bld) [Volume fraction] 50.3 % Normal 39.0-51.0 [facility] Comment on above: Order Comment: Speci men Type: BLOOD SPECIMENOrdering Facility: [facility] Address: [address] [place] [address] Performed By: #### 5 7021-8 ####[facility]ORATORYCLIA [id number] [place] [address] [place] Hemoglobin (Bld) [Mass/Vol] 16.6 g/dL Normal 13.0-17.0 [facility] Comment on above: Order Comment: Speci men Type: BLOOD SPECIMENOrdering Facility: [facility] Address: [address] [place] [address] Performed By: #### 5 7021-8 ####[facility]ORATORYCLIA [id number] [place] [address] [place] Immature granulocytes (Bld) [#/Vol] 0.04 10*3/uL Normal <0.10 [facility] Comment on above: Order Comment: Speci men Type: BLOOD SPECIMENOrdering Facility: [facility] Address: [address] [place] [address] Performed By: #### 5 7021-8 ####[facility] LABORATORYCLIA [id number] [address] [place] Immature granulocytes/100 WBC (Bld) 0.4 % Normal [facility] Comment on above: Order Comment: Speci men Type: BLOOD SPECIMENOrdering Facility: [facility] Address: [address] [place] [address] Performed By: #### 5 7021-8 ####[facility] LABORATORYCLIA [id number] [address] [place] Lymphocytes (Bld) [#/Vol] 3.58 10*3/uL Normal 1.00-4.00 [facility] Comment on above: Order Comment: Speci men Type: BLOOD SPECIMENOrdering Facility: [facility] Address: [address] [place] [address] Performed By: #### 5 7021-8 ####[facility] LABORATORYCLIA [id number] [address] [place] Lymphocytes/100 WBC (Bld) 35.4 % Normal [facility] Comment on above: Order Comment: Speci men Type: BLOOD SPECIMENOrdering Facility: [facility] Address: [address] [place] [address] Performed By: #### 5 7021-8 ####[facility] LABORATORYCLIA [id number] [address] MCH (RBC) [Entitic mass] 31.1 pg Normal 26.0-34.0 [facility] Comment on above: Order Comment: Speci men Type: BLOOD SPECIMENOrdering Facility: [facility] Address: [address] [place] [address] Performed By: #### 5 7021-8 ####[facility] LABORATORYCLIA [id number] [address] [place] MCHC (RBC) [Mass/Vol] 33.0 g/dL Normal 30.5-36.0 [facility] Comment on above: Order Comment: Speci men Type: BLOOD SPECIMENOrdering Facility: [facility] Address: [address] [place] [address] Performed By: #### 5 7021-8 ####[facility] LABORATORYCLIA [id number] [address] OF [facility] MCV (RBC) [Entitic vol] 94.4 fL Normal 80.0-100.0 [facility] Comment on above: Order Comment: Speci men Type: BLOOD SPECIMENOrdering Facility: [facility] Address: [address] [place] [address] Performed By: #### 5 7021-8 ####[facility] LABORATORYCLIA [id number] [address] [place] Monocytes (Bld) [#/Vol] 1.12 10*3/uL High <0.87 [facility] Comment on above: Order Comment: Speci men Type: BLOOD SPECIMENOrdering Facility: [facility] Address: [address] [place] [address] Performed By: #### 5 7021-8 ####[facility] LABORATORYCLIA [id number] [address] Monocytes/100 WBC (Bld) 11.1 % Normal A [facility] Comment on above: Order Comment: Speci men Type: BLOOD SPECIMENOrdering Facility: [facility] Address: [address] [place] [address] Performed By: #### 5 7021-8 ####[facility] LABORATORYCLIA [id number] [address] [place] Neutrophils (Bld) [#/Vol] 4.96 10*3/uL Normal 1.45-7.50 [facility] Comment on above: Order Comment: Speci men Type: BLOOD SPECIMENOrdering Facility: [facility] Address: [address] [place] [address] Performed By: #### 5 7021-8 ####[facility] LABORATORYCLIA [id number] [address] [place] [facility] Neutrophils/100 WBC (Bld) 48.9 % Normal [facility] Comment on above: Order Comment: Speci men Type: BLOOD SPECIMENOrdering Facility: [facility] Address: [address] [place] [address] Performed By: #### 5 7021-8 ####[facility] LABORATORYCLIA [id number] [address] [place] Nucleated RBC (Bld) [#/Vol] 10*3/uL Normal <0.01 [facility] Comment on above: Order Comment: Speci men Type: BLOOD SPECIMENOrdering Facility: [facility] Address: [address] [place] [address] Performed By: #### 5 7021-8 ####[facility] LABORATORYCLIA [id number] [address] [place] Nucleated RBC/100 WBC (Bld) [Ratio] 0.0 /100 WBC Normal [facility] Comment on above: Order Comment: Speci men Type: BLOOD SPECIMENOrdering Facility: [facility] Address: [address] [place] [address] Performed By: #### 5 7021-8 ####[facility]ORATORYCLIA [id number] [place] [address] [facility] [place] Platelet mean volume (Bld) [Entitic vol] 10.4 fL Normal 9.0-12.7 [facility] Comment on above: Order Comment: Speci men Type: BLOOD SPECIMENOrdering Facility: [facility] Address: [address] [place] [address] Performed By: #### 5 7021-8 ####[facility] LABORATORYCLIA [id number] [address] OF [facility] Platelets (Bld) [#/Vol] 219 10*3/uL Normal 150-400 [facility] Comment on above: Order Comment: Speci men Type: BLOOD SPECIMENOrdering Facility: [facility] Address: [address] [place] [address] Performed By: #### 5 7021-8 ####[facility] LABORATORYCLIA [id number] [address] RBC (Bld) [#/Vol] 5.33 10*6/uL Normal 4.20-6.00 [facility] Comment on above: Order Comment: Speci men Type: BLOOD SPECIMENOrdering Facility: [facility] Address: [address] [place] [address] Performed By: #### 5 7021-8 ####[facility] LABORATORYCLIA [id number] [address] [place] WBC (Bld) [#/Vol] 10.12 10*3/uL Normal 3.70-11.00 [facility] Comment on above: Order Comment: Speci men Type: BLOOD SPECIMENOrdering Facility: [facility] Address: [address] [place] [address] Performed By: #### 5 7021-8 ####[facility] LABORATORYCLIA [id number] [address] Linda 04-14-2024 JOHNN Telephone ([place]) SALMAVENKAT Lynch ([id number]) 1965 M Date Time Provider Department 04/14/24 GAVIN BETANCUR During your visit today, we recorded the following information about you: Lorena Hurley 04/14/2024 3:03 PM Signed Patient called from [facility]. He is currently admitted. States that he is upset because he has not gotten his US DVT done. I tried to listen to patient, he was talking about how staff in hospital was rude to him. He states he is waiting to do a procedure, a catheterization. Patient states he is tired of being admitted. I tried to empathize, stating I could tell he was not comfortable because of the sound of his voice. Patient asks if I would have any influence over his US being done. I informed patient that unfortunately not, he is under care of hospital. Advised that US may have to be done another day. Patient ranted, stating he was ready Rip the ivs out of his arm and leave AMA. I advised patient to please not do that. Patient speaking with nurse while also on the phone with me. Patient states he will call back. Patient ended call. Patient stated some time during our conversation that he was expecting Dr. Betancur to call him, please advise. Lorena Hurley, Housekeeping Worker April 14, 2024 3:02 PM Allergies As of Date: 04/14/2024 Noted Allergy Reaction AMOXICILLIN-POT CLAVULANATE 12/23/2023 10 - Anaphylaxis 7 - Swelling METFORMIN 04/26/2023 6 - Diarrhea LISINOPRIL 04/24/2023 3 - Cough SULFAMETHOXAZOLE-TRIM ETHOPRIM 10/20/2009 2 - Rash 4 - Hives 7 - Swelling Date Reviewed: 04/13/2024 Reviewed by: Chalo Workman MD - Fully Assessed Prescriptions as of 05/18/2024 - ASA/acetaminophen/caf feine/pot (GOODY'S HEADACHE POWDER ORAL) Take 1 Packet by mouth as needed (headaches). - spironolactone (ALDACTONE) 25 mg tablet Take 1 tablet by mouth once daily. - dulaglutide (TRULICITY) 0.75 mg/0.5 mL pen injector Inject 0.75 mg subcutaneously one time a week. Monitor bs closely and keep food log - metFORMIN (GLUCOPHAGE) 1,000 mg tablet Take 1 tablet by mouth two times a day. - levothyroxine (SYNTHROID) 125 mcg tablet Take 1 tablet by mouth daily before breakfast. - metoprolol succinate ER (TOPROL XL) 25 mg 24 hr tablet Take 1 tablet by mouth once daily. - sacubitril-valsartan (ENTRESTO) 24-26 mg tablet Take 1 tablet by mouth two times a day. - furosemide (LASIX) 40 mg tablet Take 1 tablet by mouth once daily. Patient should start on April 16, 2024. - magnesium, aluminum hydroxide (MYLANTA ORAL) Take 5 mL by mouth two times a day as needed (heartburn). - nystatin (MYCOSTATIN) 100,000 unit/mL suspension Take 100,000 Units by mouth four times daily. Swish and swallow. 5 ml 4times daily - empagliflozin (JARDIANCE) 10 mg tablet Take 1 tablet by mouth daily with breakfast. - mirtazapine (REMERON) 15 mg tablet Take 1 tablet by mouth daily at bedtime. - albuterol HFA (PROVENTIL HFA, VENTOLIN HFA) 90 mcg/actuation inhaler Inhale 2 Puffs as instructed every 4 hours as needed for wheezing/shortness of breath. - Insulin Whitman, Disposable, (PEN NEEDLE) 32 gauge x 5/32 Inject 1 Each subcutaneously every 24 hours. Give with each insulin administration. - Insulin Syringe-Needle U-100 0.5 mL 31 gauge x 5/16 Inject 1 Each subcutaneously every 24 hours. Give with each insulin administration. - aspirin, enteric coated (ADULT LOW DOSE ASPIRIN) 81 mg EC tablet Take 1 tablet by mouth once daily. - insulin glargine 100 unit/mL (3 mL) Inject 20 Units subcutaneously once daily. - rosuvastatin (CRESTOR) 10 mg tablet Take 1 tablet by mouth daily at bedtime. Meds Comments as of 10/23/2023: 10/23/23 The medications are managed by this patient by: PATIENT Calixto Latif OA Problem List As Of Date 04/14/2024 Noted Resolved CAD (coronary artery disease) [I25.10] 09/04/2014 S/P coronary artery stent placement [Z95.5] 09/04/2014 Left bundle branch block (LBBB) on electrocardi*09/04/20 14 H/O myocardial infarction, greater than 8 weeks*09/04/2014 Tobacco abuse [Z72.0] 09/04/2014 Obesity [E66.9] 09/04/2014 Status post insertion of drug-eluting stent int*11/17/2016 Non morbid obesity due to excess calories [E66.*11/17/2016 Obesity, Class III, BMI >= 40 [E66.01] 05/11/2023 Hypercholesteremia [E78.00] HTN (hypertension) [I10] Schizoaffective disorder, bipolar type (HCC) [F*09/10/2023 11/02/2023 Cocaine dependence in remission (HCC) [F14.21] 09/10/2023 Hypothyroidism [E03.9] Diabetes mellitus (HCC) [E11.9] Cataract, nuclear sclerotic, both eyes [H25.13] 10/23/2023 Hyperopia of both eyes [H52.03] 10/23/2023 Regular astigmatism of both eyes [H52.223] 10/23/2023 Presbyopia of both eyes [H52.4] 10/23/2023 Mood disorder (HCC) [F39] 11/02/2023 Acute systolic HF (heart failure) (HCC) [I50.21]04/13/2024 Acute on chronic systolic (congestive) (more content not included)... Normal [facility] CONSULTon 04-14-2024 CONSULT HNO ID: [id number] Author: DEVEN CARRINGTON MD Service: Cardiovascular Medicine Author Type: Physician Type: Consults Filed: 04/14/2024 12:14 Note Text: Heart and Vascular Rough And Ready Shyanne Jeffries Department of Cardiovascular Medicine REASON FOR CONSULT: Heart failure REQUESTING PHYSICIAN: Dr. Dsouza My final recommendations will be communicated back to the requesting provider by way of shared medical record or letter via US mail HPI: Mr. Marsh is a 58 year old male with history of coronary artery disease status post remote OK with PCI to LAD in 2011, type 2 diabetes mellitus, essential hypertension, hyperlipidemia, bipolar disorder, obstructive sleep apnea and morbid obesity with BMI of 44.9. Patient has known cardiomyopathy dating back to 2011 at the time of his OK. LVEF was reported at 45-50% at that time. Patient was lost to follow-up for many years and recently reestablished with Dr. Ponce. He was having dyspnea on exertion for at least a year prior to establishing. Also reports having mild lower extremity edema but is unsure whether it is chronic. He can get dyspneic simply after going up a flight of stairs or walking at his normal pace on flat surface. An echocardiogram was ordered that revealed LVEF of 17%. He was informed of the result and left heart catheterization was scheduled for 04/15/2024. While awaiting outpatient heart cath, he became worried and also and started noticing worsening shortness of breath. He decided to come in for further evaluation. He reports history of smoking up to half a pack a day for approximately 30 years. He quit for 5 years and then took it up again earlier this year. PAST MEDICAL HISTORY Diagnosis Date Bipolar 1 disorder (HCC) CAD S/P percutaneous coronary angioplasty 2011 [place] Diabetes mellitus (HCC) History of acute myocardial infarction HTN (hypertension) Hypercholesteremia Hypothyroidism Cardiomyopathy PAST SURGICAL HISTORY Procedure Laterality Date ANGIOPLASTY 2011 [facility] STENT COLONOSCOPY 2009 [place] ARTHROSCOPY/SURGERY 2000 loose body removal lt HAND SURGERY HX Left 2022 KNEE ARTHROSCOPY/SURGERY 1984 loose body removal lt OSTEOTOMY FIBULA Left 1980 PAST SURGICAL HISTORY OF 1988 Rt wrist bone graft PAST SURGICAL HISTORY OF R navicular REPAIR INGUINAL HERNIA 1986 REPAIR NASAL SEPTUM DEFECT 1996 THYROIDECTOMY SUBTOTAL/PARTIAL 2009 TONSILLECTOMY PRIMARY/SECONDARY Tonsillectomy SOCIAL HISTORY Social History Tobacco Use Smoking status: Every Day Packs/day: 0.50 Years: 40.00 Additional pack years: 0.00 Total pack years: 20.00 Types: Cigarettes Start date: 04/21/2023 Smokeless tobacco: Never Vaping Use Vaping Use: Never used Substance Use Topics Alcohol use: No Drug use: No FAMILY HISTORY Problem Relation Age of Onset Cancer Mother uterine other (depression) Maternal Grandmother Family history was reviewed ALLERGIES Allergen Reactions Amoxicillin-Pot Cla* Anaphylaxis, Swelling Metformin Diarrhea Lisinopril Cough Sulfamethoxazole-Tr* Rash, Hives, Swelling MEDICATIONS: benzonatate (TESSALON PERLE) 100 mg capsuleTake 100 mg by mouth three times a day as needed for cough.Disp: Rfl: METOPROLOL TARTRATE ORALTake 25 mg by mouth two times a day.Disp: Rfl: magnesium, aluminum hydroxide (MYLANTA ORAL)Take 5 mL by mouth two times a day as needed (heartburn).Disp: Rfl: nystatin (MYCOSTATIN) 100,000 unit/mL suspensionTake 100,000 Units by mouth four times daily. Swish and swallow. 5 ml 4times dailyDisp: Rfl: furosemide (LASIX) 20 mg tabletTake 1 tablet by mouth once daily for 7 days.Disp: 7 tabletRfl: 0 empagliflozin (JARDIANCE) 10 mg tabletTake 1 tablet by mouth daily with breakfast.Disp: 90 tabletRfl: 0 mirtazapine (REMERON) 15 mg tabletTake 1 tablet by mouth daily at bedtime.Disp: 30 tabletRfl: 2 traZODone (DESYREL) 100 mg tabletTake 1 tablet by mouth daily at bedtime.Disp: 30 tabletRfl: 2 fluticasone (FLONASE) 50 mcg/actuation nasal sprayUse 2 Sprays in each nostril once daily.Disp: 18.2 mLRfl: 0 aspirin, enteric coated (ADULT LOW DOSE ASPIRIN) 81 mg EC tabletTake 1 tablet by mouth once daily.Disp: 90 tabletRfl: 3 ibuprofen (MOTRIN) 600 mg tabletTake 1 tablet by mouth every 8 hours as needed for pain.Disp: 30 tabletRfl: 0 insulin glargine 100 unit/mL (3 mL)Inject 20 Units subcutaneously once daily.Disp: 9 mLRfl: 1 levothyroxine (SYNTHROID) 125 mcg tabletTake 1 tablet by mouth daily before breakfast.Disp: 90 tabletRfl: 0 metFORMIN (GLUCOPHAGE) 1,000 mg tabletTake 1 tablet by mouth two times a day.Disp: 180 tabletRfl: 0 predniSONE (DELTASONE) 20 mg tabletTake 20 mg by mouth once daily.Disp: Rfl: albuterol HFA (PROVENTIL HFA, VENTOLIN HFA) 90 mcg/actuation inhalerInhale 2 Puffs as instructed every 4 hours as needed for wheezing/shortness of breath.Disp: 6.7 gRfl: 0 dulaglutide (TRULICITY) 0.75 mg/0.5 mL pen injectorInject 0.75 mg s (more content not included)... Normal [facility] HIGH SENSITIVITY TROPONIN To n 04-14-2024 Troponin T.cardiac High sensitivity method [Mass/Vol] 45 ng/L High <12 [facility] Comment on above: Order Comment: Jazmin jolley Type: BLOOD SPECIMEN [facility] Address: [facility] [place] [address] Performed By: #### 2 4321-2, 29508-9, 55033-0 #### [facility] CLIA [id number] [address] [place] [address] [place] Magnesium SerPl-mCncon 04-14 Magnesium [Mass/Vol] 2.6 mg/dL High 1.7-2.3 [facility] Comment on above: Order Comment: Jazmin jolley Type: BLOOD SPECIMEN [facility] Address: [facility] [place] [address] Performed By: #### 1 4979-9 #### [facility] CLIA [id number] [address] [place] PT panel Coag (PPP)on 2023 INR Coag (PPP) [Relative time] 1.0 {INR} Normal 0.9-1.3 [facility] Comment on above: Order Comment: Jazmin jolley Type: BLOOD SPECIMEN [facility] Address: [facility] [place] [address] Result Comment: Chelsie min K Antagonist (VKA) Therapeutic Range: INR 2 to 3 (Target INR of 2.5) Note: For patients treated with VKA drugs, such as warfarin, the [place] [employer] 2012 Guideline recommends a therapeutic INR range of 2 to 3 (target INR of 2.5). This recommendation includes high-risk patients with antiphospholipid syndrome with previous arterial or venous thromboembolism, current-generation mechanical or bioprosthetic aortic heart valve replacement. Note: Patients with mechanical aortic valve replacement and additional risk factors for thromboembolic events (atrial fibrillation, previous thromboembolism, LV dysfunction, hypercoagulable conditions) or an older generation mechanical AVR (i.e., ball in-Cage) or any mechanical MVR should have a INR therapeutic range of 2.5 to 3.5 (target INR of 3). Richmond GH, et al. Chest 2012, 141:7S-47S Fely RA et al. JACC 2017, 70: 252-289 Performed By: #### 1 4979-9 #### [facility] CLIA [id number] [address] [place] PT Coag (PPP) [Time] 11.0 s Normal 9.7-13.0 [facility] Comment on above: Order Comment: Speci men Type: BLOOD SPECIMEN [facility] Address: [address] [place] [address] Performed By: #### 1 4979-9 #### [facility] CLIA [id number] [address] TOXICOLOGY SCREEN, ROUTINE U RINEon 04-14-2024 Amphetamines Confirm (U) [Mass/Vol] Negative Normal Negative [facility] Comment on above: Order Comment: Speci men Type: URINE SPECIMENOrdering Facility: [facility] Address: [address] [place] [address] Result Comment: Cuto ff threshold at 1000 ng/mL. Performed By: #### U TOX2 ####[facility] LABORATORYCLIA [id number] [address] BARBITURATES, URINE Negative Normal Negative [facility] Comment on above: Order Comment: Speci men Type: URINE SPECIMENOrdering Facility: [facility] Address: [address] [place] [address] Result Comment: Cuto ff threshold at 200 ng/mL. Performed By: #### U TOX2 ####[facility]ORYCLIA [id number] [address] [place] BENZODIAZEPINES, UR Negative Normal Negative [facility] Comment on above: Order Comment: Speci men Type: URINE SPECIMENOrdering Facility: [facility] Address: [address] [place] [address] Result Comment: Cuto ff threshold at 200 ng/mL. Performed By: #### U TOX2 ####[facility]ORYCLIA [id number] [address] [place] Cannabinoids Screen Ql (U) Negative Normal Negative [facility] Comment on above: Order Comment: Speci men Type: URINE SPECIMENOrdering Facility: [facility] Address: [address] [place] [address] Result Comment: Cuto ff threshold at 50 ng/mL. Performed By: #### U TOX2 ####[facility]ORYCLIA [id number] [address] STATES OF [facility] Cocaine Ql (U) Negative Normal Negative [facility] Comment on above: Order Comment: Speci men Type: URINE SPECIMENOrdering Facility: [facility] Address: [address] [place] [address] Result Comment: Cuto ff threshold at 300 ng/mL. Performed By: #### U TOX2 ####[facility]ORYCLIA [id number] [address] Ethanol (U) [Mass/Vol] <11 Normal <11 [facility] Comment on above: Order Comment: Speci men Type: URINE SPECIMENOrdering Facility: [facility] Address: [address] [place] [address] Performed By: #### U TOX2 ####[facility] [id number] [address] Opiates Screen Ql (U) Negative Normal Negative [facility] Comment on above: Order Comment: Speci men Type: URINE SPECIMENOrdering Facility: [facility] Address: [address] [place] [address] Result Comment: Cuto ff threshold at 300 ng/mL. Performed By: #### U TOX2 ####[facility]ORY[facility]IA [id number] [address] oxyCODONE cutoff Screen (U) [Mass/Vol] Negative Normal Negative [facility] Comment on above: Order Comment: Speci men Type: URINE SPECIMENOrdering Facility: [facility] Address: [address] [place] [address] Result Comment: Cuto ff threshold at 100 ng/mL. Performed By: #### U TOX2 ####[facility]ORYCLIA [id number] [place] [address] Phencyclidine Ql (U) Negative Normal Negative [facility] Comment on above: Order Comment: Speci men Type: URINE SPECIMENOrdering Facility: [facility] Address: [address] [place] [address] Result Comment: Cuto ff threshold at 25 ng/mL. Performed By: #### U TOX2 ####[facility]ORATORYCLIA [id number] [address] OF [facility] aPTT PPPon 04-14-2024 aPTT Coag (PPP) [Time] 41.2 s High 23.0-32.4 [facility] Comment on above: Order Comment: Speci men Type: BLOOD SPECIMEN [facility] Address: [address] [place] [address] Performed By: #### 1 4979-9 #### [facility] CLIA [id number] [address] aPTT Coag (PPP) [Time] 26.5 s Normal 23.0-32.4 [facility] Comment on above: Order Comment: Speci men Type: BLOOD SPECIMEN [facility] Address: [address] [place] [address] Performed By: #### 1 4979-9 #### [facility] CLIA [id number] [address] aPTT Coag (PPP) [Time] 46.8 s High 23.0-32.4 [facility] Comment on above: Order Comment: Speci men Type: BLOOD SPECIMEN [facility] Address: [address] [place] [address] Performed By: #### H STNT #### [facility] CLIA [id number] [address] Basic metabolic 2000 panelon 04-13-2024 Anion gap [Moles/Vol] 16 mmol/L High 8-15 [facility] Comment on above: Order Comment: Speci men Type: BLOOD SPECIMEN [facility] Address: [address] [place] [address] Performed By: #### 1 4979-9 #### [facility] CLIA [id number] [address] [place] Calcium [Mass/Vol] 9.7 mg/dL Normal 8.5-10.2 [facility] Comment on above: Order Comment: Speci men Type: BLOOD SPECIMEN [facility] Address: [address] [place] [address] Performed By: #### 1 4979-9 #### [facility] CLIA [id number] 1 [place] [address] [place] Chloride [Moles/Vol] 97 mmol/L Low 98-107 [facility] Comment on above: Order Comment: Speci men Type: BLOOD SPECIMEN [facility] Address: [address] [place] [address] Performed By: #### 1 4979-9 #### [facility] CLIA [id number] [address] [place] [address] [place] CO2 [Moles/Vol] 30 mmol/L Normal 22-30 [facility] Comment on above: Order Comment: Speci men Type: BLOOD SPECIMEN [facility] Address: [address] [place] [address] Performed By: #### 1 4979-9 #### [facility] CLIA [id number] [address] [place] Creatinine [Mass/Vol] 1.57 mg/dL High 0.73-1.22 [facility] Comment on above: Order Comment: Speci men Type: BLOOD SPECIMEN [facility] Address: [address] [place] [address] Performed By: #### 1 4979-9 #### [facility] CLIA [id number] [address] [place] Creatinine and Glomerular filtration rate.predicted panel (S/P/Bld) 50 mL/min/1.73m??? Low >=60 [facility] Comment on above: Order Comment: Speci men Type: BLOOD SPECIMEN [facility] Address: [address] [place] [address] Result Comment: Eli mated Glomerular Filtration Rate (eGFR) is calculated using the 2020 CKD-EPI creatinine equation. This equation utilizes serum creatinine, sex, and age as parameters. The creatinine assay has traceable calibration to isotope dilution-mass spectrometry. Refer to KDIGO guidelines for clinical interpretation. In patients with unstable renal function, e.g. those with acute kidney injury, the eGFR may not accurately reflect actual GFR. Performed By: #### 1 4979-9 #### [facility] CLIA [id number] [address] [place] [address] [place] Glucose [Mass/Vol] 141 mg/dL High 74-99 [facility] Comment on above: Order Comment: Jazmin jolley Type: BLOOD SPECIMEN [facility] Address: [address] [place] [address] Result Comment: The [place] [employer] (ADA) provides guidance for cutoff values for fasting glucose and random glucose. The ADA defines fasting as no caloric intake for at least 8 hours. Fasting plasma glucose results between 100 to 125 mg/dL indicate increased risk for diabetes (prediabetes). Fasting plasma glucose results greater than or equal to 126 mg/dL meet the criteria for diagnosis of diabetes. In the absence of unequivocal hyperglycemia, results should be confirmed by repeat testing. In a patient with classic symptoms of hyperglycemia or hyperglycemic crisis, random plasma glucose results greater than or equal to 200 mg/dL meet the criteria for diagnosis of diabetes. Reference: Standards of Medical Care in Diabetes 2016, [place] [employer]. Diabetes Care. 2016.39(Suppl 1). Performed By: #### 1 4979-9 #### [facility] CLIA [id number] [address] [place] [address] [place] Sodium [Moles/Vol] 143 mmol/L Normal 136-144 [facility] Comment on above: Order Comment: Jazmin jolley Type: BLOOD SPECIMEN [facility] Address: [address] [place] [address] Performed By: #### 1 4979-9 #### [facility] CLIA [id number] 1 [place] [address] [place] Urea nitrogen [Mass/Vol] 19 mg/dL Normal 9-24 [facility] Comment on above: Order Comment: Speci men Type: BLOOD SPECIMEN [facility] Address: [address] [place] [address] Performed By: #### 1 4979-9 #### [facility] CLIA [id number] 1 [place] [address] [place] Anion gap [Moles/Vol] 11 mmol/L Normal 8-15 [facility] Comment on above: Order Comment: Speci men Type: BLOOD SPECIMEN [facility] Address: [address] [place] [address] Performed By: #### 2 4321-2, 40596-7, #### [facility] CLIA [id number] 1 [place] [address] [place] Calcium [Mass/Vol] 6.0 mg/dL Low 8.5-10.2 [facility] Comment on above: Order Comment: Speci men Type: BLOOD SPECIMEN [facility] Address: [address] [place] [address] Performed By: #### 2 4321-2, 64742-9, #### [facility] CLIA [id number] 1 [place] [address] [place] Chloride [Moles/Vol] 112 mmol/L High 98-107 [facility] Comment on above: Order Comment: Speci men Type: BLOOD SPECIMEN [facility] Address: [address] [place] [address] Performed By: #### 2 4321-2, 60946-2, #### [facility] CLIA [id number] 1 [place] [address] [place] CO2 [Moles/Vol] 21 mmol/L Low 22-30 [facility] Comment on above: Order Comment: Speci men Type: BLOOD SPECIMEN [facility] Address: [address] [place] [address] Performed By: #### 2 4321-2, 75472-2, 43448-5 #### [facility] CLIA [id number] [address] STATES OF [facility] Creatinine [Mass/Vol] 0.97 mg/dL Normal 0.73-1.22 [facility] Comment on above: Order Comment: Speci samreen Type: BLOOD SPECIMEN [facility] Address: [address] [place] [address] Performed By: #### 2 4321-2, 01482-4, #### [facility] CLIA [id number] [address] Creatinine and Glomerular filtration rate.predicted panel (S/P/Bld) 89 mL/min/1.73m??? Normal >=60 [facility] Comment on above: Order Comment: Jazmin jolley Type: BLOOD SPECIMEN [facility] Address: [address] [place] [address] Result Comment: Eli mated Glomerular Filtration Rate (eGFR) is calculated using the 2020 CKD-EPI creatinine equation. This equation utilizes serum creatinine, sex, and age as parameters. The creatinine assay has traceable calibration to isotope dilution-mass spectrometry. Refer to KDIGO guidelines for clinical interpretation. In patients with unstable renal function, e.g. those with acute kidney injury, the eGFR may not accurately reflect actual GFR. Performed By: #### 2 4321-2, 57898-5, #### [facility] CLIA [id number] [address] [place] Glucose [Mass/Vol] 145 mg/dL High 74-99 [facility] Comment on above: Order Comment: Margei samreen Type: BLOOD SPECIMEN [facility] Address: [address] [place] [address] Result Comment: The [place] Diabetes [employer] (ADA) provides guidance for cutoff values for fasting glucose and random glucose. The ADA defines fasting as no caloric intake for at least 8 hours. Fasting plasma glucose results between 100 to 125 mg/dL indicate increased risk for diabetes (prediabetes). Fasting plasma glucose results greater than or equal to 126 mg/dL meet the criteria for diagnosis of diabetes. In the absence of unequivocal hyperglycemia, results should be confirmed by repeat testing. In a patient with classic symptoms of hyperglycemia or hyperglycemic crisis, random plasma glucose results greater than or equal to 200 mg/dL meet the criteria for diagnosis of diabetes. Reference: Standards of Medical Care in Diabetes 2016, [place] [employer]. Diabetes Care. 2016.39(Suppl 1). Performed By: #### 2 4321-2, 00970-9, #### [facility] CLIA [id number] 1 [place] [address] [place] Potassium [Moles/Vol] 2.4 mmol/L Critically low 3.7-5.1 [facility] Comment on above: Order Comment: Jazmin jolley Type: BLOOD SPECIMEN [facility] Address: [address] [place] [address] Performed By: #### 2 4321-2, 01398-9, #### [facility] CLIA [id number] 1 [place] [address] [place] Sodium [Moles/Vol] 144 mmol/L Normal 136-144 [facility] Comment on above: Order Comment: Jazmin jolley Type: BLOOD SPECIMEN [facility] Address: [address] [place] [address] Performed By: #### 2 4321-2, 31334-9, #### [facility] CLIA [id number] 1 [place] [address] [place] Urea nitrogen [Mass/Vol] 15 mg/dL Normal 9-24 [facility] Comment on above: Order Comment: Jazmin jolley Type: BLOOD SPECIMEN [facility] Address: [address] [place] [address] Performed By: #### 2 4321-2, 01537-5, #### [facility] CLIA [id number] [address] [place] [address] [place] CBC W Auto Differential pane l (Bld)on 04-13-2024 Basophils (Bld) [#/Vol] 10*3/uL Normal <0.11 A [facility] Comment on above: Order Comment: Speci men Type: BLOOD SPECIMEN [facility] Address: [facility] [place] [address] Performed By: #### H STNT #### [facility] CLIA [id number] [address] Basophils/100 WBC (Bld) 0.2 % Normal A [facility] Comment on above: Order Comment: Speci men Type: BLOOD SPECIMEN [facility] Address: [address] [place] [address] Performed By: #### H STNT #### [facility] CLIA [id number] [address] Differential cell count method Nom (Bld) Auto Normal [facility] Comment on above: Order Comment: Speci men Type: BLOOD SPECIMEN [facility] Address: [address] [place] [address] Performed By: #### H STNT #### [facility] CLIA [id number] [address] Eosinophils (Bld) [#/Vol] 0.28 10*3/uL Normal <0.46 [facility] Comment on above: Order Comment: Speci men Type: BLOOD SPECIMEN [facility] Address: [address] [place] [address] Performed By: #### H STNT #### [facility] CLIA [id number] [address] Eosinophils/100 WBC (Bld) 2.6 % Normal [facility] Comment on above: Order Comment: Speci men Type: BLOOD SPECIMEN [facility] Address: [address] [place] [address] Performed By: #### H STNT #### [facility] CLIA [id number] [address] Erythrocyte distribution width (RBC) [Ratio] 13.2 % Normal 11.5-15.0 [facility] Comment on above: Order Comment: Speci men Type: BLOOD SPECIMEN [facility] Address: [address] [place] [address] Performed By: #### H STNT #### [facility] CLIA [id number] [address] [place] Hematocrit (Bld) [Volume fraction] 49.9 % Normal 39.0-51.0 [facility] Comment on above: Order Comment: Speci men Type: BLOOD SPECIMEN [facility] Address: [address] [place] [address] Performed By: #### H STNT #### [facility] CLIA [id number] [address] Hemoglobin (Bld) [Mass/Vol] 16.8 g/dL Normal 13.0-17.0 [facility] Comment on above: Order Comment: Speci men Type: BLOOD SPECIMEN [facility] Address: [address] [place] [address] Performed By: #### H STNT #### [facility] CLIA [id number] [address] Immature granulocytes (Bld) [#/Vol] 0.04 10*3/uL Normal <0.10 [facility] Comment on above: Order Comment: Speci men Type: BLOOD SPECIMEN [facility] Address: [address] [place] [address] Performed By: #### H STNT #### [facility] CLIA [id number] [address] Immature granulocytes/100 WBC (Bld) 0.4 % Normal [facility] Comment on above: Order Comment: Speci men Type: BLOOD SPECIMEN [facility] Address: [address] [place] [address] Performed By: #### H STNT #### [facility] CLIA [id number] [address] [place] Lymphocytes (Bld) [#/Vol] 3.33 10*3/uL Normal 1.00-4.00 [facility] Comment on above: Order Comment: Speci men Type: BLOOD SPECIMEN [facility] Address: [address] [place] [address] Performed By: #### H STNT #### [facility] CLIA [id number] [address] Lymphocytes/100 WBC (Bld) 31.5 % Normal [facility] Comment on above: Order Comment: Speci men Type: BLOOD SPECIMEN [facility] Address: [address] [place] [address] Performed By: #### H STNT #### [facility] CLIA [id number] [address] MCH (RBC) [Entitic mass] 31.1 pg Normal 26.0-34.0 [facility] Comment on above: Order Comment: Speci men Type: BLOOD SPECIMEN [facility] Address: [address] [place] [address] Performed By: #### H STNT #### [facility] CLIA [id number] [address] MCHC (RBC) [Mass/Vol] 33.7 g/dL Normal 30.5-36.0 [facility] Comment on above: Order Comment: Speci men Type: BLOOD SPECIMEN [facility] Address: [address] [place] [address] Performed By: #### H STNT #### [facility] CLIA [id number] [address] MCV (RBC) [Entitic vol] 92.4 fL Normal 80.0-100.0 [facility] Comment on above: Order Comment: Speci men Type: BLOOD SPECIMEN [facility] Address: [address] [place] [address] Performed By: #### H STNT #### [facility] CLIA [id number] [address] [place] Monocytes (Bld) [#/Vol] 1.19 10*3/uL High <0.87 [facility] Comment on above: Order Comment: Speci men Type: BLOOD SPECIMEN [facility] Address: [address] [place] [address] Performed By: #### H STNT #### [facility] CLIA [id number] [address] [place] Monocytes/100 WBC (Bld) 11.3 % Normal A [facility] Comment on above: Order Comment: Speci men Type: BLOOD SPECIMEN [facility] Address: [address] [place] [address] Performed By: #### H STNT #### [facility] CLIA [id number] [address] Neutrophils (Bld) [#/Vol] 5.71 10*3/uL Normal 1.45-7.50 [facility] Comment on above: Order Comment: Speci men Type: BLOOD SPECIMEN [facility] Address: [address] [place] [address] Performed By: #### H STNT #### [facility] CLIA [id number] [address] Neutrophils/100 WBC (Bld) 54.0 % Normal [facility] Comment on above: Order Comment: Speci men Type: BLOOD SPECIMEN [facility] Address: [address] [place] [address] Performed By: #### H STNT #### [facility] CLIA [id number] [address] [place] Nucleated RBC (Bld) [#/Vol] 10*3/uL Normal <0.01 [facility] Comment on above: Order Comment: Speci men Type: BLOOD SPECIMEN [facility] Address: [address] [place] [address] Performed By: #### H STNT #### [facility] CLIA [id number] [address] [place] Nucleated RBC/100 WBC (Bld) [Ratio] 0.0 /100 WBC Normal [facility] Comment on above: Order Comment: Speci men Type: BLOOD SPECIMEN [facility] Address: [address] [place] [address] Performed By: #### H STNT #### [facility] CLIA [id number] [address] [place] Platelet mean volume (Bld) [Entitic vol] 10.5 fL Normal 9.0-12.7 [facility] Comment on above: Order Comment: Speci men Type: BLOOD SPECIMEN [facility] Address: [address] [place] [address] Performed By: #### H STNT #### [facility] CLIA [id number] [address] [place] Platelets (Bld) [#/Vol] 228 10*3/uL Normal 150-400 [facility] Comment on above: Order Comment: Speci men Type: BLOOD SPECIMEN [facility] Address: [address] [place] [address] Performed By: #### H STNT #### [facility] CLIA [id number] [address] [place] RBC (Bld) [#/Vol] 5.40 10*6/uL Normal 4.20-6.00 [facility] Comment on above: Order Comment: Speci men Type: BLOOD SPECIMEN [facility] Address: [address] [place] [address] Performed By: #### H STNT #### [facility] CLIA [id number] [address] [place] WBC (Bld) [#/Vol] 10.57 10*3/uL Normal 3.70-11.00 [facility] Comment on above: Order Comment: Speci men Type: BLOOD SPECIMEN [facility]ing [facility] Address: [address] [place] [address] [place] [address] Performed By: #### [facility] #### [facility] [id number] [address] [place] [id number] [facility] Linda 04-13-2024 [facility] Telephone ([facility]) VENKAT MARSH ([id number]) 1965 M Date Time Provider Department 04/13/24 JOSETTE MCGEE [facility] During your visit today, we recorded the following information about you: Josette Mcgee, RN 04/13/2024 1:05 PM Signed Mr. aMrsh was scheduled for a new patient phone visit with the [facility] nurse today. Call uteEna Hsu reported that he forgot about the appointment and was currently headed up to the [facility] ED (main). Stated he cannot breathe well and was advised to go to the ED by his doctor. Will cancel the remote visit today. Will follow patient and when discharged from the hospital will call to reschedule. Allergies As of Date: 04/13/2024 Noted Allergy Reaction AMOXICILLIN-POT CLAVULANATE 12/23/2023 10 - Anaphylaxis 7 - Swelling METFORMIN 04/26/2023 6 - Diarrhea LISINOPRIL 04/24/2023 3 - Cough SULFAMETHOXAZOLE-TRIM ETHOPRIM 10/20/2009 2 - Rash 4 - Hives 7 - Swelling Date Reviewed: 04/11/2024 Reviewed by: Deidre Carreno LPN - Fully Assessed Reason for Visit: Appointment [186] Prescriptions as of 04/13/2024 - furosemide (LASIX) 20 mg tablet Take 1 tablet by mouth once daily for 7 days. - empagliflozin (JARDIANCE) 10 mg tablet Take 1 tablet by mouth daily with breakfast. - mirtazapine (REMERON) 15 mg tablet Take 1 tablet by mouth daily at bedtime. - traZODone (DESYREL) 100 mg tablet Take 1 tablet by mouth daily at bedtime. - albuterol HFA (PROVENTIL HFA, VENTOLIN HFA) 90 mcg/actuation inhaler Inhale 2 Puffs as instructed every 4 hours as needed for wheezing/shortness of breath. - dulaglutide (TRULICITY) 0.75 mg/0.5 mL pen injector Inject 0.75 mg subcutaneously one time a week. Monitor bs closely and keep food log - fluticasone (FLONASE) 50 mcg/actuation nasal spray Use 2 Sprays in each nostril once daily. - Insulin Whitman, Disposable, (PEN NEEDLE) 32 gauge x 5/32 Inject 1 Each subcutaneously every 24 hours. Give with each insulin administration. - Insulin Syringe-Needle U-100 0.5 mL 31 gauge x 5/16 Inject 1 Each subcutaneously every 24 hours. Give with each insulin administration. - metoprolol succinate ER (TOPROL XL) 25 mg 24 hr tablet Take 1 tablet by mouth once daily. - aspirin, enteric coated (ADULT LOW DOSE ASPIRIN) 81 mg EC tablet Take 1 tablet by mouth once daily. - ibuprofen (MOTRIN) 600 mg tablet Take 1 tablet by mouth every 8 hours as needed for pain. - insulin glargine 100 unit/mL (3 mL) Inject 20 Units subcutaneously once daily. - levothyroxine (SYNTHROID) 125 mcg tablet Take 1 tablet by mouth daily before breakfast. - losartan (COZAAR) 25 mg tablet Take 1 tablet by mouth two times a day. - metFORMIN (GLUCOPHAGE) 1,000 mg tablet Take 1 tablet by mouth two times a day. - rosuvastatin (CRESTOR) 10 mg tablet Take 1 tablet by mouth daily at bedtime. - MULTI-VITAMIN ORAL None Entered Meds Comments as of 10/23/2023: 10/23/23 The medications are managed by this patient by: PATIENT OPHELIA Crooks Problem List As Of Date 04/13/2024 Noted Resolved CAD (coronary artery disease) [I25.10] 09/04/2014 S/P coronary artery stent placement [Z95.5] 09/04/2014 Left bundle branch block (LBBB) on electrocardi*09/04/20 14 H/O myocardial infarction, greater than 8 weeks*09/04/2014 Tobacco abuse [Z72.0] 09/04/2014 Obesity [E66.9] 09/04/2014 Status post insertion of drug-eluting stent int*11/17/2016 Non morbid obesity due to excess calories [E66.*11/17/2016 Obesity, Class III, BMI >= 40 [E66.01] 05/11/2023 Hypercholesteremia [E78.00] HTN (hypertension) [I10] Schizoaffective disorder, bipolar type (HCC) [F*09/10/2023 11/02/2023 Cocaine dependence in remission (HCC) [F14.21] 09/10/2023 Hypothyroidism [E03.9] Diabetes mellitus (HCC) [E11.9] Cataract, nuclear sclerotic, both eyes [H25.13] 10/23/2023 Hyperopia of both eyes [H52.03] 10/23/2023 Regular astigmatism of both eyes [H52.223] 10/23/2023 Presbyopia of both eyes [H52.4] 10/23/2023 Mood disorder (HCC) [F39] 11/02/2023 Encounter Status:Closed by JOSETTE MCGEE on 04/13/24 Normal [facility] ECG COMPLETEon 04-13-2024 ECG COMPLETE Ventricular Rate : 8 1 BPM Atrial Rate : 315 BPM QRS Duration : 146 ms Q-T Interval : 416 ms QTC Calculation(Bazett) : 483 ms Calculated P Center Line : 64 degrees Calculated R Center Line : -85 degrees Calculated T Center Line : 161 degrees ATRIAL FLUTTER WITH VARIABLE A-V BLOCK LEFT AXIS DEVIATION NON-SPECIFIC INTRA-VENTRICULAR CONDUCTION BLOCK LATERAL INFARCT , AGE UNDETERMINED CANNOT RULE OUT INFERIOR INFARCT , AGE UNDETERMINED ABNORMAL ECG NO PREVIOUS ECGS AVAILABLE Confirmed by MD FONTAINE AMY ([id number]) on 03/04/2025 6:35:31 AM NAME : VENKAT MARSH PID : [id number] : 1965 Gender : Male Race : ORD : [id number] Procedure Date : Apr 13 2024 15:14:26 Edit Date : Mar 04 2025 06:35:37 Diagnosis: ATRIAL FLUTTER WITH VARIABLE A-V BLOCK LEFT AXIS DEVIATION NON-SPECIFIC INTRA-VENTRICULAR CONDUCTION BLOCK LATERAL INFARCT , AGE UNDETERMINED CANNOT RULE OUT INFERIOR INFARCT , AGE UNDETERMINED ABNORMAL ECG NO PREVIOUS ECGS AVAILABLE Confirmed by MD FONTAINE AMY ([id number]) on 03/04/2025 6:35:31 AM Test Reason : Chest Pain Location : 4 : AKED EM Overread By : MD FONTAINE AMY Edited By : MD FONTAINE AMY Referred By : , Acquired by : RODGER LUNA [facility] ED NOTEon 04-13-2024 ED NOTE HNO ID: [id number] Author: ELDON HERNANDEZ RN Service: ? Author Type: Registered Nurse Type: ED Notes Filed: 04/13/2024 20:04 Note Text: Up with Radha Normal [facility] ED PROV NOTEon 04-13-2024 ED PROV NOTE HNO ID: [id number] Author: AYLEEN GASPAR MD Service: Emergency Medicine Author Type: Resident Type: ED Provider Notes Filed: 04/22/2024 07:37 Note Text: Attestation signed by Ayleen Gaspar MD at 04/22/2024 7:37 AM Attending Note I evaluated the patient and personally participated in the rizo components. I agree with the resident's findings and plan as documented and have discussed the case and management of the patient's care with the resident. ED Course as of 04/22/24 0737 Ayleen Gaspar's Documentation Wed Apr 13, 2024 0235 Patient presents for evaluation of the low EF had a recent echocardiogram a day or 2 ago of 17%. He was sent into the emergency room to be admitted for further evaluation and treatment he has dyspnea on exertion to some dyspnea at rest intermittent chest discomfort and exercise intolerance. His EKG today showed him to be in atrial fibs/flutter he has not recalls never having been in fib or flutter. His recent echo did note that he was in atrial fibrillation and a previous EKG showed sinus rhythm with first-degree block. He is not currently on any anticoagulation. On examination vital signs pulse is 81 rhythm is irregularly irregular monitor strip shows A-fib and a flutter 97 to 93% and his pulse ox blood pressure 161/101 lungs are slightly diminished in the bases a few scattered crackles few scattered wheezes abdomen soft nontender without guarding rebound mass or distention medical decision making what appears to be new onset atrial fibrillation with cardiomyopathy and low EF we consulted cardiology in regards to the anticoagulation and with the procedure coming up we will place him on heparin. They are planning on doing a cath. His rate is controlled and cardiology did not feel the need for any emergent attempt at rhythm control especially since we do not know when he went into atrial fibrillation and the risk for a possible embolic clot. Others' Documentation ThuApr 13, 2024 1555 Patient with new onset shortness of breath and an EF of 17%. Patient is in atrial flutter here in the emergency department which appears to be new for him although unknown when exactly he began being in atrial flutter. Patient will be given Lasix here in the emergency department as well as DuoNeb. Plan to consult cardiology regarding anticoagulation and rhythm control although patient is currently in the high 90s in the room for rate. [RB] [address] Burns from cardiology, appreciate his recommendations. Given patient is planning to go for heart cath on Thursday at this time we will start the patient on heparin. Given patient is in the high 90s for rate at this time no indication for rhythm control. [RB] 1735 NT Pro BNP(!): 3,181 Improved from 2 days ago [RB] 1735 Potassium(!!): 2.4 Will recheck as his VBG potassium was 4.6 [RB] 180 Potassium(!): 3.6 Will still replete patient's potassium [RB] 1804 Magnesium(!): 1.4 Will replete [RB] 1804 House medicine is capped, will page sound physician services [RB] 180 pCO2,Venous(POCT): 46.4 [RB] 1805 AYAZ High Sensitivity(!): 41 Single point change from previous, unlikely active OK [RB] 180 XR CHEST 2V FRONTAL/LAT Appears to have increased edema compared to 2022 x-ray, satting 93% on room air currently [RB] ED Course User Index [RB] Kameron Clarke MD Clinical Impressions as of 04/22/24 0737 Syncope, unspecified syncope type Congestive heart failure, unspecified HF chronicity, unspecified heart failure type (HCC) Cardiac LV ejection fraction 10-20% Hypokalemia Hypocalcemia Hypomagnesemia Typical atrial flutter (HCC) Signature: Ayleen Gaspar MD Date: 04/22/2024 Time: 7:37 AM ED Provider Note Patient Name: Venkat Marsh : 1965 SERVICE DATE: 04/13/24 History Patient presents with: Shortness of Breath: Patient arrives ambulatory to triage with multiple complaints. Had recent echo that showed he had an EF of 17%. +andre. Lower extremity swelling. +BRASWELL. +CP 58-year-old male presenting to the emergency department with shortness of breath for the last 6 weeks. Patient states that he has been putting off his echocardiogram for the last year and just had an echo yesterday that showed an EF of approximately 17%. Patient was told by cardiology to come to the emergency department. Patient is scheduled for a catheterization on Thursday. Patient endorses some chest tightness but no active chest pain. He also endorses some bilateral lower extremity swelling. Patient also reports multiple syncopal episodes over the last several weeks as well the most recent of which was while he was driving a car. History provided by: Patient PAST MEDICAL HISTORY Diagnosis Date Bipolar 1 disorder (HCC) CAD S (more content not included)... Normal [facility] ED Triage Noteon 04-13-2024 ED Triage Note HNO ID: [id number] Author: JENY HERNANDEZ APRN.CNP Service: Emergency Medicine Author Type: Nurse Practitioner Type: ED Triage Notes Filed: 04/13/2024 15:19 Note Text: ED TRIAGE PROVIDER NOTE Patient Name: Venkat Marsh Service Date: 04/13/24 BRIEF HPI: This is a 58 year old male who presents to the ED with: Chest pain and shortness of breath. States he had an echocardiogram and was advised today by vascular that he needed to come to the emergency department and be admitted due to his EF of 17 and his current symptoms. He is scheduled for heart cath this week. BRIEF EXAM: NAD Awake and Alert Non labored breathing No focal neurological deficits INITIAL WORKUP AND DECISION MAKING: Orders Placed This Encounter XR CHEST 2V FRONTAL/LAT BASIC METABOLIC PNL MAGNESIUM BLD CBC + DIFF High Sensitivity Troponin T with Reflex for ED Chest Pain ECG COMPLETE EKG SIGNATURE: Jeny Hernandez APRN.ELEMENTARY SUPERVISOR Normal [facility] HIGH SENSITIVITY TROPONIN To n 04-13-2024 Troponin T.cardiac High sensitivity method [Mass/Vol] 45 ng/L High <12 [facility] Comment on above: Order Comment: Jazmin jolley Type: BLOOD SPECIMEN Ordering Facility: [facility] Address: [address] [place] [address] Performed By: #### H STNT #### [facility] CLIA [id number] [address] [place] [address] OF [facility] HIGH SENSITIVITY TROPONIN T (INITIAL)on 04-13-2024 Troponin T.cardiac High sensitivity method [Mass/Vol] 40 ng/L High <12 [facility] Comment on above: Order Comment: Jazmin jolley Type: BLOOD SPECIMENOrdering Facility: [facility] Address: [address] [place] [address] Performed By: #### L [id number] ####[facility] [id number] [address] STATES OF [facility] HIGH SENSITIVITY TROPONIN T (SECOND)on 04-13-2024 Troponin T.cardiac High sensitivity method [Mass/Vol] 41 ng/L High <12 [facility] Comment on above: Order Comment: Jazmin jolley Type: BLOOD SPECIMEN Ordering Facility: [facility] Address: [address] [place] [address] Performed By: #### H STNT #### [facility] CLIA [id number] [address] [place] [address] OF [facility] HIGH SENSITIVITY TROPONIN T (THIRD) 3 HRS AFTER INITIALon 04-13-2024 Troponin T.cardiac High sensitivity method [Mass/Vol] 41 ng/L High <12 [facility] Comment on above: Order Comment: Speci men Type: BLOOD SPECIMEN Ordering Facility: [facility] Address: [address], [place] [id number] Performed By: #### H STNT #### [facility] CLIA [id number] [address] [place] [address] [place] HISTORY PHYSICALon HISTORY PHYSICAL HNO ID: [id number] Author: CHALO WORKMAN MD Service: General Internal Medicine Author Type: Physician Type: H&P Filed: 04/14/2024 06:44 Note Text: DEPARTMENT OF HOSPITAL MEDICINE HISTORY AND PHYSICAL EXAM SERVICE DATE: 04/13/2024 SERVICE TIME: 10:03 PM Primary Care Physician: Duncan Craven MD NIGHT AND WEEKEND COVERAGE: From 7am - 7pm, please call Sound After 7pm, please call cross cover pager #[phone] Subjective CHIEF COMPLAINT: Shortness of breath HPI: This is a 58 year old male with hx of bipolar disorder, CAD, diabetes, HTN, HL, and hypothyroidism who presents with 6 weeks of worsening shortness of breath. He finally had an echocardiogram after putting if off for a year and found out that his EF was 17%. His telegraphic typewriter mechanic then advised him to come to the ED. He has some chest tightness and bilat LE edema. He has also had multiple syncopal episodes over the past few weeks. Pt denies headache, fever, chills, vision changes, swallowing problems, neck pain, cough, abdominal pain, flank pain, nausea, vomiting, diarrhea, constipation, bleeding, urinary problems, muscle pain or weakness, numbness, tingling, or joint pain/swelling. No other associated symptoms. No other known aggravating or relieving factors. He is afebrile and HD stable, 94% on RA. Glucose 145, K 2.4>3.6, Mg 1.4, creatinine 1.57, CBC was normal, HS trop 40>41>41, CXR showed NAD, EKG atrial flutter. Echo also showed severe systolic dysfunction and a dilated aorta 4.1 cm. PAST MEDICAL HISTORY Diagnosis Date Bipolar 1 disorder (HCC) CAD S/P percutaneous coronary angioplasty 2011 [place] Diabetes mellitus (HCC) History of acute myocardial infarction HTN (hypertension) Hypercholesteremia Hypothyroidism PAST SURGICAL HISTORY Procedure Laterality Date ANGIOPLASTY 2011 [facility] STENT COLONOSCOPY 2009 [place] ARTHROSCOPY/SURGERY 2000 loose body removal lt HAND SURGERY HX Left 2022 KNEE ARTHROSCOPY/SURGERY 1984 loose body removal lt OSTEOTOMY FIBULA Left 1980 PAST SURGICAL HISTORY OF 1988 Rt wrist bone graft PAST SURGICAL HISTORY OF R navicular REPAIR INGUINAL HERNIA 1986 REPAIR NASAL SEPTUM DEFECT 1996 THYROIDECTOMY SUBTOTAL/PARTIAL 2009 TONSILLECTOMY PRIMARY/SECONDARY Tonsillectomy FAMILY HISTORY Problem Relation Age of Onset Cancer Mother uterine other (depression) Maternal Grandmother Social History Tobacco Use Smoking status: Every Day Packs/day: 0.50 Years: 40.00 Additional pack years: 0.00 Total pack years: 20.00 Types: Cigarettes Start date: 04/21/2023 Smokeless tobacco: Never Vaping Use Vaping Use: Never used Substance Use Topics Alcohol use: No Drug use: No HOME MEDICATIONS: Prior to Admission Medications Prescriptions Last Dose Informant Patient Reported? Taking? Insulin Whitman, Disposable, (PEN NEEDLE) 32 gauge x 5/32 No No Sig: Inject 1 Each subcutaneously every 24 hours. Give with each insulin administration. Insulin Syringe-Needle U-100 0.5 mL 31 gauge x 5/16 No No Sig: Inject 1 Each subcutaneously every 24 hours. Give with each insulin administration. MULTI-VITAMIN ORAL Yes No Sig: None Entered Patient not taking: Reported on 04/11/2024 albuterol HFA (PROVENTIL HFA, VENTOLIN HFA) 90 mcg/actuation inhaler No No Sig: Inhale 2 Puffs as instructed every 4 hours as needed for wheezing/shortness of breath. aspirin, enteric coated (ADULT LOW DOSE ASPIRIN) 81 mg EC tablet No No Sig: Take 1 tablet by mouth once daily. dulaglutide (TRULICITY) 0.75 mg/0.5 mL pen injector No No Sig: Inject 0.75 mg subcutaneously one time a week. Monitor bs closely and keep food log empagliflozin (JARDIANCE) 10 mg tablet No No Sig: Take 1 tablet by mouth daily with breakfast. fluticasone (FLONASE) 50 mcg/actuation nasal spray No No Sig: Use 2 Sprays in each nostril once daily. furosemide (LASIX) 20 mg tablet No No Sig: Take 1 tablet by mouth once daily for 7 days. ibuprofen (MOTRIN) 600 mg tablet No No Sig: Take 1 tablet by mouth every 8 hours as needed for pain. insulin glargine 100 unit/mL (3 mL) No No Sig: Inject 20 Units subcutaneously once daily. levothyroxine (SYNTHROID) 125 mcg tablet No No Sig: Take 1 tablet by mouth daily before breakfast. losartan (COZAAR) 25 mg tablet No No Sig: Take 1 tablet by mouth two times a day. Patient not taking: Reported on 04/11/2024 metFORMIN (GLUCOPHAGE) 1,000 mg tablet No No Sig: Take 1 tablet by mouth two times a day. metoprolol succinate ER (TOPROL XL) 25 mg 24 hr tablet No No Sig: Take 1 tablet by mouth once daily. Patient not taking: Reported on 04/11/2024 mirtazapine (REMERON) 15 mg tablet No No Sig: Take 1 tablet by mouth daily at bedtime. rosuvastatin (CRESTOR) 10 mg tablet No No Sig: Take 1 tablet by mouth daily at bedtime. Patient not taking: Reported on 04/11/2024 traZODone (DESYREL) 100 mg tablet No No Sig: Take 1 tablet by mouth daily at bedtime. Facility-Administered Medications (more content not included)... Normal [facility] Magnesium SerPl-mCncon 04-13 Magnesium [Mass/Vol] 1.4 mg/dL Low 1.7-2.3 [facility] Comment on above: Order Comment: Speci men Type: BLOOD SPECIMEN Ordering Facility: [facility] Address: [address] [place] [address] Performed By: #### 2 4321-2, 82613-9, #### [facility] CLIA [id number] [address] OF [facility] NT-proBNP SerPl-mCncon 04-13 Natriuretic peptide.B prohormone N-Terminal [Mass/Vol] 3181 pg/mL High <125 [facility] Comment on above: Order Comment: Speci men Type: BLOOD SPECIMEN Ordering Facility: [facility] Address: [address] [place] [address] Performed By: #### 2 4321-2, 65985-7, 34157-4 #### [facility] CLIA [id number] [address] POTASSIUMon 04-13-2024 Potassium [Moles/Vol] 3.6 mmol/L Low 3.7-5.1 [facility] Comment on above: Order Comment: Jazmin jolley Type: BLOOD SPECIMEN Ordering Facility: [facility] Address: [address] [place] [address] Performed By: #### 1 4979-9 #### [facility] CLIA [id number] [address] [place] [address] PT panel Coag (PPP)on 2023 INR Coag (PPP) [Relative time] 1.0 {INR} Normal 0.9-1.3 [facility] Comment on above: Order Comment: Jazmin jolley Type: BLOOD SPECIMEN Ordering Facility: [facility] Address: [address] [place] [address] Result Comment: Chelsie min K Antagonist (VKA) Therapeutic Range: INR 2 to 3 (Target INR of 2.5) Note: For patients treated with VKA drugs, such as warfarin, the [place] [employer] 2012 Guideline recommends a therapeutic INR range of 2 to 3 (target INR of 2.5). This recommendation includes high-risk patients with antiphospholipid syndrome with previous arterial or venous thromboembolism, current-generation mechanical or bioprosthetic aortic heart valve replacement. Note: Patients with mechanical aortic valve replacement and additional risk factors for thromboembolic events (atrial fibrillation, previous thromboembolism, LV dysfunction, hypercoagulable conditions) or an older generation mechanical AVR (i.e., ball in-Cage) or any mechanical MVR should have a INR therapeutic range of 2.5 to 3.5 (target INR of 3). [place] LEVIN, et al. Chest 2012, 141:7S-47S Fely RA, et al. JAC 2017, 70: 252-289 Performed By: #### H STNT #### [facility] CLIA [id number] [address] [place] [address] PT Coag (PPP) [Time] 11.0 s Normal 9.7-13.0 [facility] Comment on above: Order Comment: Jazmin jolley Type: BLOOD SPECIMEN Ordering Facility: [facility] Address: [address] [place] [id number] Performed By: #### H STNT #### [facility] CLIA [id number] [address] TSH SerPl-aCncon 04-13-2024 TSH Qn 3.680 m[IU]/L Normal 0.270-4.200 [facility] Comment on above: Order Comment: Speci men Type: BLOOD SPECIMEN Ordering Facility: [facility] Address: [address] [place] [address] Performed By: #### 1 4979-9 #### [facility] CLIA [id number] [address] XR CHEST 2V FRONTAL/LATon XR CHEST 2V FRONTAL/LAT * * *Final Repor t* * * DATE OF EXAM: Apr 13 2024 5:15PM AKX [id number] - XR CHEST 2V FRONTAL/LAT / PROCEDURE REASON: Chest Pain * * * * Physician Interpretation * * * * EXAMINATION: CHEST RADIOGRAPH (2 VIEW FRONTAL and LATERAL) CLINICAL HISTORY: Chest Pain MQ: [id number] EXAM DATE/TIME: 04/13/2024 5:15 PM COMPARISON: No relevant prior studies available. RESULT: Lines, tubes, and devices: None. Lungs and pleura: No consolidation. No lung mass. No pleural effusion. No pneumothorax. Cardiomediastinal silhouette: Mild cardiomegaly. Bones and soft tissues: Unremarkable. IMPRESSION: No acute radiographic abnormality. Tearoom Host/Hostess: PSCB Transcribe Date/Time: Apr 13 2024 5:16P Dictated by : NEMESIO GIL MD This examination was interpreted and the report reviewed and electronically signed by: NEMESIO GIL MD on Apr 13 2024 5:17PM EST [id number] Normal [facility] aPTT PPPon 04-13-2024 aPTT Coag (PPP) [Time] 32.6 s High 23.0-32.4 [facility] Comment on above: Order Comment: Speci men Type: BLOOD SPECIMEN Ordering Facility: [facility] Address: [address] [place] [employer], [place] [id number] Performed By: #### H STNT #### [facility] CLIA [id number] [address] [place] [id number] [facility] aPTT Coag (PPP) [Time] 26.3 s Normal 23.0-32.4 [facility] Comment on above: Order Comment: Speci men Type: BLOOD SPECIMEN Ordering Facility: [facility] Address: [address] [place] [id number] Performed By: #### H STNT #### [facility] CLIA [id number] [address] [place] [id number] [facility] CNPNon 04-12-2024 CNPN Telephone (CARDAGHWW ) VENKAT MARSH ([id number]) 1965 M Date Time Provider Department 04/12/24 YOUSUF PONCEWMikel During your visit today, we recorded the following information about you: Yousuf Ponce MD 04/12/2024 5:09 PM Signed Can you please let Mr. Marsh know that his echocardiogram was markedly abnormal and revealed severe LV systolic dysfunction with EF 17%. For further evaluation, I would recommend he have cardiac catheterization to evaluate for underlying coronary artery disease as the etiology of her severe heart dysfunction. Can we arrange for him to have a heart cath? I have also ordered for him to have routine bloodwork including a CBC (he has had a recent basic metabolic panel). Can we also arrange a follow up appointment for him in the next 4 weeks with either myself or one of the jigger crown pouncing machine operator to review his cath findings and optimize his medication therapy? Thanks, MD Marcelo Inman Stacey, RN 04/13/2024 8:11 AM Signed Left message on voicemail requesting pt return call for test results and MD recommendations. Office phone number provided. SUZAN Gallagher Stacey, RN 04/13/2024 8:20 AM Signed Spoke with pt. Notified of test results and Dr Ponce's recommendations. Pt voices understanding. Pt agreeable to cath. SUZAN Gallagher Stacey, RN 04/13/2024 9:53 AM Signed Pt scheduled for cath 04/15/24. SUZAN Gallagher Stacey, RN 04/13/2024 10:58 AM Signed Pt calls to report due to his shortness of breath he is going to ER. SUZAN Gallagher September R 04/14/2024 10:13 AM Signed Pt is currently admitted. Thanks Jessica Fitzgerald Allergies As of Date: 04/12/2024 Noted Allergy Reaction AMOXICILLIN-POT CLAVULANATE 12/23/2023 10 - Anaphylaxis 7 - Swelling METFORMIN 04/26/2023 6 - Diarrhea LISINOPRIL 04/24/2023 3 - Cough SULFAMETHOXAZOLE-TRIM ETHOPRIM 10/20/2009 2 - Rash 4 - Hives 7 - Swelling Date Reviewed: 04/11/2024 Reviewed by: Deidre Carreno LPN - Fully Assessed Reason for Visit: Results [95] Primary Visit Diagnosis:Systolic dysfunction without heart failure [I51.89] Other Visit Diagnosis:Abnormal echocardiogram [R93.1] Order(s):CARDIAC MEDICAL CODING MANAGER ORDER [[id number]] Order #: [id number]: 1 COMPLETE BLOOD COUNT [SQCBC] Order #: [id number] FUTURE Prescriptions as of 04/14/2024 - benzonatate (TESSALON PERLE) 100 mg capsule Take 100 mg by mouth three times a day as needed for cough. - METOPROLOL TARTRATE ORAL Take 25 mg by mouth two times a day. - magnesium, aluminum hydroxide (MYLANTA ORAL) Take 5 mL by mouth two times a day as needed (heartburn). - nystatin (MYCOSTATIN) 100,000 unit/mL suspension Take 100,000 Units by mouth four times daily. Swish and swallow. 5 ml 4times daily - predniSONE (DELTASONE) 20 mg tablet Take 20 mg by mouth once daily. - furosemide (LASIX) 20 mg tablet Take 1 tablet by mouth once daily for 7 days. - empagliflozin (JARDIANCE) 10 mg tablet Take 1 tablet by mouth daily with breakfast. -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 infarction HTN (hypertension) Hypercholesteremia Hypothyroidism PAST SURGICAL HISTORY Procedure Laterality Date ANGIOPLASTY 2011 [facility] STENT COLONOSCOPY 2009 [place] ARTHROSCOPY/SURGERY 2000 loose body removal lt HAND SURGERY HX Left 2022 KNEE ARTHROSCOPY/SURGERY 1985 loose body removal lt OSTEOTOMY FIBULA Left 1980 PAST SURGICAL HISTORY OF 1988 Rt wrist bone graft PAST SURGICAL HISTORY OF R navicular REPAIR INGUINAL HERNIA 1986 REPAIR NA (more content not included)... Normal [facility] FOLATE, SERUMon 04-11-2024 Folate [Mass/Vol] 8.5 ng/mL 4.7 - PINF ng/mL [facility] Folate SerPl-mCncon 04-11-20 Folate [Mass/Vol] 8.5 ng/mL Normal >4.7 [facility] Comment on above: Order Comment: Speci men Type: BLOOD SPECIMEN Ordering Facility: [facility] Address: [address] [place] [address] Performed By: #### H STNT #### [facility] CLIA [id number] [address] Iron and Iron binding capaci ty panelon 04-11-2024 Iron [Mass/Vol] 52 ug/dL 41 - 186 ug/dL [facility] Iron binding capacity [Mass/Vol] 385 ug/dL 232 - 386 ug/dL [facility] Iron saturation [Mass fraction] 13.5 % Low 15.0 - 57.0 % [facility] Iron [Mass/Vol] 52 ug/dL Normal 41-186 [facility] Comment on above: Order Comment: Speci men Type: BLOOD SPECIMEN Ordering Facility: [facility] Address: [address] [place] [address] Performed By: #### 2 4321-2, 85352-3, 43640-8 #### [facility] CLIA [id number] [address] [place] [address] Iron binding capacity [Mass/Vol] 385 ug/dL Normal 232-386 [facility] Comment on above: Order Comment: Speci men Type: BLOOD SPECIMEN Ordering Facility: [facility] Address: [address] [place] [address] Performed By: #### 2 4321-2, 52593-4, 75136-2 #### [facility] CLIA [id number] [address] Iron saturation [Mass fraction] 13.5 % Low 15.0-57.0 [facility] Comment on above: Order Comment: Speci men Type: BLOOD SPECIMEN Ordering Facility: [facility] Address: [address] [place] [address] Performed By: #### 2 4321-2, 13920-5, 82839-1 #### [facility] CLIA [id number] [address] NT PRO BNPon 04-11-2024 Natriuretic peptide.B prohormone N-Terminal [Mass/Vol] 4030 pg/mL High NINF - 125 pg/mL [facility] NT-proBNP SerPl-mCncon 04-11 Natriuretic peptide.B prohormone N-Terminal [Mass/Vol] 4030 pg/mL High <125 [facility] Comment on above: Order Comment: Speci men Type: BLOOD SPECIMEN Ordering Facility: [facility] Address: [address] [place] [address] Performed By: #### 2 4321-2, 02960-7, 42961-3 #### [facility] CLIA [id number] [address] [place] No Panel Informationon 04-11 Interpretation and review of laboratory results Normal [facility] Interpretation and review of laboratory results Abnormal [facility] VITAMIN B12on 04-11-2024 Cobalamin (Vitamin B12) [Mass/Vol] 852 pg/mL 232 - 1245 pg/mL [facility] Vit B12 SerPl-ncon 024 Cobalamin (Vitamin B12) [Mass/Vol] 852 pg/mL Normal 232-1245 [facility] Comment on above: Order Comment: Speci men Type: BLOOD SPECIMEN Ordering Facility: [facility] Address: [address] [place] [address] Performed By: #### H STNT #### [facility] CLIA [id number] [address] .Auto Diffon 03-29-2024 Basophil, Absolute 0.1 10 3/mcL Normal 0.0-0.2 [facility] ([place]) Comment on above: Performed By: #### C BC, GFR, MDW, BMP, ANEU, PBNP, TROPHS, ADIFF ####[address] [place], [place] [address] Basophils/100 WBC (Bld) 0.6 % Normal 0.0-2.5 [facility] ([place]) Comment on above: Performed By: #### C BC, GFR, MDW, BMP, ANEU, PBNP, TROPHS, ADIFF ####[address] [place], [place] [address] Eosinophil, Absolute 0.3 10 3/mcL Normal 0.0-0.4 [facility] ([place]) Comment on above: Performed By: #### C BC, GFR, MDW, BMP, ANEU, PBNP, TROPHS, ADIFF ####[address] [place], [place] [address] Eosinophils/100 WBC (Bld) 3.2 % Normal 0.0-7.0 [facility] ([place]) Comment on above: Performed By: #### C BC, GFR, MDW, BMP, ANEU, PBNP, TROPHS, ADIFF ####[address] [place], [place] [address] Lymphocyte, Absolute 2.1 10 3/mcL Normal 0.8-3.9 [facility] ([place]) Comment on above: Performed By: #### C BC, GFR, MDW, BMP, ANEU, PBNP, TROPHS, ADIFF ####[address] [place], [place] [address] Lymphocytes/100 WBC (Bld) 23.8 % Normal 10.0-50.0 [facility] ([place]) Comment on above: Performed By: #### C BC, GFR, MDW, BMP, ANEU, PBNP, TROPHS, ADIFF ####[address] [place], [place] [address] Monocyte, Absolute 0.8 10 3/mcL Normal 0.2-1.0 [facility] ([place]) Comment on above: Performed By: #### C BC, GFR, MDW, BMP, ANEU, PBNP, TROPHS, ADIFF ####[address] [place], [place] [address] Monocytes/100 WBC (Bld) 8.7 % Normal 1.7-13.0 [facility] ([place]) Comment on above: Performed By: #### C BC, GFR, MDW, BMP, ANEU, PBNP, TROPHS, ADIFF ####[address] [place], [place] [address] Neutrophils/100 WBC (Bld) 63.7 % Normal 37.0-80.0 [facility] ([place]) Comment on above: Performed By: #### C BC, GFR, MDW, BMP, ANEU, PBNP, TROPHS, ADIFF ####[address] [place], [place] [address] .GFRon 03-29-2024 GFR 58 ml/min/1.73sqm Normal [facility] ([place]) Comment on above: Result Comment: GFR Population mean for , Non- Americans Ages 20-29 = 116 mL/min/1.73 sq.m. Ages 30-39 = 107 mL/min/1.73 sq.m. Ages 40-49 = 99 mL/min/1.73 sq.m. Ages 50-59 = 93 mL/min/1.73 sq.m. Ages 60-69 = 85 mL/min/1.73 sq.m. Ages 70+ = 75 mL/min/1.73 sq.m. Chronic Kidney Disease: Less than 60 mL/min/1.73 square meters End Stage Renal Disease: Less than 15 mL/min/1.73 square meters Performed By: #### C BC, GFR, MDW, BMP, ANEU, PBNP, TROPHS, ADIFF ####[address] [place], [place] [address] GFR Non- 48 ml/min/1.73sqm Normal [facility] ([place]) Comment on above: Result Comment: GFR Population mean for , Non- Americans Ages 20-29 = 116 mL/min/1.73 sq.m. Ages 30-39 = 107 mL/min/1.73 sq.m. Ages 40-49 = 99 mL/min/1.73 sq.m. Ages 50-59 = 93 mL/min/1.73 sq.m. Ages 60-69 = 85 mL/min/1.73 sq.m. Ages 70+ = 75 mL/min/1.73 sq.m. Chronic Kidney Disease: Less than 60 mL/min/1.73 square meters End Stage Renal Disease: Less than 15 mL/min/1.73 square meters Performed By: #### C BC, GFR, MDW, BMP, ANEU, PBNP, TROPHS, ADIFF ####[address] [place], [place] [address] .MDWon 03-29-2024 Monocyte Distribution Width 16.87 Normal 0.00-20.00 [facility] ([place]) Comment on above: Result Comment: For ED adult patients suspected of sepsis, MDW<=20.0 does not rule out sepsis or risk of sepsis Performed By: #### C BC, GFR, MDW, BMP, ANEU, PBNP, TROPHS, ADIFF ####[address] [place], [place] [address] .NEUABSon 03-29-2024 Neutrophil, Absolute 5.6 10 3/mcL Normal 2.9-6.2 [facility] ([place]) Comment on above: Performed By: #### C BC, GFR, MDW, BMP, ANEU, PBNP, TROPHS, ADIFF ####[address] [place], [place] [address] BMPon 03-29-2024 BUN/Creatinine Ratio 8 ratio Normal 7-27 [facility] ([place]) Comment on above: Performed By: #### C BC, GFR, MDW, BMP, ANEU, PBNP, TROPHS, ADIFF ####[address] [place], [place] [address] Calcium [Mass/Vol] 8.8 mg/dL Normal 8.4-10.2 [facility] ([place]) Comment on above: Performed By: #### C BC, GFR, MDW, BMP, ANEU, PBNP, TROPHS, ADIFF ####[address] [place], [place] [address] Chloride [Moles/Vol] 100 mmol/L Normal 98-107 [facility] ([place]) Comment on above: Performed By: #### C BC, GFR, MDW, BMP, ANEU, PBNP, TROPHS, ADIFF ####[address] [place], [place] [address] CO2 [Moles/Vol] 31 mmol/L Normal 23-31 [facility] ([place]) Comment on above: Performed By: #### C BC, GFR, MDW, BMP, ANEU, PBNP, TROPHS, ADIFF ####[address] [place], [place] [address] Creatinine [Mass/Vol] 1.49 mg/dL High 0.70-1.30 [facility] ([place]) Comment on above: Performed By: #### C BC, GFR, MDW, BMP, ANEU, PBNP, TROPHS, ADIFF ####[address] [place], [place] [address] Electrolyte Balance 7.0 mEq/L Normal 4.0-15.0 [facility] ([place]) Comment on above: Performed By: #### C BC, GFR, MDW, BMP, ANEU, PBNP, TROPHS, ADIFF ####[address] [place], [place] [address] Glucose [Mass/Vol] 143 mg/dL High 80-115 [facility] ([place]) Comment on above: Performed By: #### C BC, GFR, MDW, BMP, ANEU, PBNP, TROPHS, ADIFF ####[address] [place], [place] [address] Potassium [Moles/Vol] 3.7 mmol/L Normal 3.5-5.1 [facility] ([place]) Comment on above: Performed By: #### C BC, GFR, MDW, BMP, ANEU, PBNP, TROPHS, ADIFF ####[address] [place], [place] [address] Sodium [Moles/Vol] 138 mmol/L Normal 136-145 [facility] ([place]) Comment on above: Performed By: #### C BC, GFR, MDW, BMP, ANEU, PBNP, TROPHS, ADIFF ####[address] [place], [place] [address] Urea nitrogen [Mass/Vol] 12 mg/dL Normal 7-18 [facility] ([place]) Comment on above: Performed By: #### C BC, GFR, MDW, BMP, ANEU, PBNP, TROPHS, ADIFF ####[address] [place], [place] [address] CBCon 03-29-2024 Erythrocyte distribution width (RBC) [Ratio] 13.3 % Normal 11.5-14.5 [facility] ([place]) Comment on above: Performed By: #### C BC, GFR, MDW, BMP, ANEU, PBNP, TROPHS, ADIFF ####[address] [place], [place] [address] Hematocrit (Bld) [Volume fraction] 47.2 % Normal 42.0-52.0 [facility] ([place]) Comment on above: Performed By: #### C BC, GFR, MDW, BMP, ANEU, PBNP, TROPHS, ADIFF ####[address] [place], [place] [address] Hgb 16.2 G/dL Normal 14.0-18.0 [facility] ([place]) Comment on above: Performed By: #### C BC, GFR, MDW, BMP, ANEU, PBNP, TROPHS, ADIFF ####[address] [place], [place] [address] MCH (RBC) [Entitic mass] 31.7 pg High 27.0-31.2 [facility] ([place]) Comment on above: Performed By: #### C BC, GFR, MDW, BMP, ANEU, PBNP, TROPHS, ADIFF ####[address] [place], [place] [address] MCHC 34.4 G/dL Normal 31.8-35.4 [facility] ([place]) Comment on above: Performed By: #### C BC, GFR, MDW, BMP, ANEU, PBNP, TROPHS, ADIFF ####[address] [place], [place] [address] MCV (RBC) [Entitic vol] 92.2 fL Normal 80.0-94.0 [facility] ([place]) Comment on above: Performed By: #### C BC, GFR, MDW, BMP, ANEU, PBNP, TROPHS, ADIFF ####[address] [place], [place] [address] Platelet 240 10 3/mcL Normal 130-400 [facility] ([place]) Comment on above: Performed By: #### C BC, GFR, MDW, BMP, ANEU, PBNP, TROPHS, ADIFF ####[address] [place], [place] [address] Platelet mean volume (Bld) [Entitic vol] 8.2 fL Normal 7.4-10.4 [facility] ([place]) Comment on above: Performed By: #### C BC, GFR, MDW, BMP, ANEU, PBNP, TROPHS, ADIFF ####[address] [place], [place] [address] RBC 5.12 10 6/mcL Normal 4.04-6.13 [facility] ([place]) Comment on above: Performed By: #### C BC, GFR, MDW, BMP, ANEU, PBNP, TROPHS, ADIFF ####[address] [place], [place] [address] WBC 8.8 10 3/mcL Normal 4.6-10.8 [facility] ([place]) Comment on above: Performed By: #### C BC, GFR, MDW, BMP, ANEU, PBNP, TROPHS, ADIFF ####[address] [place], [place] [address] LABORATORYOrdered By: SYSTEM SYSTEM on 03-29-2024 Basophil, Absolute 0.1 103/mcL Normal 0.0 - 0.2 10^3/mcL AO Workflow SS Basophils/100 WBC (Bld) 0.6 % Normal 0.0 - 2.5 % AO Workflow SS Calcium [Mass/Vol] 8.8 mg/dL Normal 8.4 - 10. 2 mg/dL AO ADM SS Chloride [Moles/Vol] 100 mmol/L Normal 98 - 10 7 mmol/L AO ADM SS CO2 [Moles/Vol] 31 mmol/L Normal 23 - 31 mmol/L AO ADM SS Creatinine [Mass/Vol] 1.49 mg/dL High 0.70 - 1.30 mg/dL AO ADM SS Electrolyte Balance 7.0 mEq/L Normal 4.0 - 15 .0 mEq/L AO ADM SS Eosinophil, Absolute 0.3 103/mcL Normal 0.0 - 0 .4 10^3/mcL AO Workflow SS Eosinophils/100 WBC (Bld) 3.2 % Normal 0.0 - 7.0 % AO Workflow SS Erythrocyte distribution width (RBC) [Ratio] 13.3 % Normal 11.5 - 14.5 % AO Workflow SS GFR/1.73 sq M.predicted among blacks MDRD (S/P/Bld) [Vol rate/Area] 58 ml/min/1.73sqm Invalid Interpretation Code AO Chemistry S Comment on above: Interpretive Data: GFR Population mean for , Non- Americans Ages 20-29 = 116 mL/min/1.73 sq.m. Ages 30-39 = 107 mL/min/1.73 sq.m. Ages 40-49 = 99 mL/min/1.73 sq.m. Ages 50-59 = 93 mL/min/1.73 sq.m. Ages 60-69 = 85 mL/min/1.73 sq.m. Ages 70+ = 75 mL/min/1.73 sq.m. Chronic Kidney Disease: Less than 60 mL/min/1.73 square meters End Stage Renal Disease: Less than 15 mL/min/1.73 square meters GFR/1.73 sq M.predicted among non-blacks MDRD (S/P/Bld) [Vol rate/Area] 48 ml/min/1.73sqm Invalid Interpretation Code AO Chemistry S Comment on above: Interpretive Data: GFR Population mean for , Non- Americans Ages 20-29 = 116 mL/min/1.73 sq.m. Ages 30-39 = 107 mL/min/1.73 sq.m. Ages 40-49 = 99 mL/min/1.73 sq.m. Ages 50-59 = 93 mL/min/1.73 sq.m. Ages 60-69 = 85 mL/min/1.73 sq.m. Ages 70+ = 75 mL/min/1.73 sq.m. Chronic Kidney Disease: Less than 60 mL/min/1.73 square meters End Stage Renal Disease: Less than 15 mL/min/1.73 square meters Glucose [Mass/Vol] 143 mg/dL High 80 - 115 mg/dL AO ADM SS Hematocrit (Bld) [Volume fraction] 47.2 % Normal 42.0 - 52.0 % AO Workflow SS Hemoglobin (Bld) [Mass/Vol] 16.2 G/dL Normal 14.0 - 18.0 G/dL AO Workflow SS Lymphocyte, Absolute 2.1 103/mcL Normal 0.8 - 3 .9 10^3/mcL AO Workflow SS Lymphocytes/100 WBC (Bld) 23.8 % Normal 10.0 - 50.0 % AO Workflow SS MCH (RBC) [Entitic mass] 31.7 pg High 27.0 - 31.2 pg AO Workflow SS MCHC 34.4 G/dL Normal 31.8 - 35.4 G/dL AO Workflow SS MCV (RBC) [Entitic vol] 92.2 fL Normal 80.0 - 94.0 fL AO Workflow SS Monocyte distribution width Auto (Bld) [Entitic vol] 16.87 1 Normal 0.00 - 20.00 AO Workflow SS Comment on above: Result Comment: For ED adult patients suspected of sepsis, MDW<=20.0 does not rule out sepsis or risk of sepsis Monocyte, Absolute 0.8 103/mcL Normal 0.2 - 1.0 10^3/mcL AO Workflow SS Monocytes/100 WBC (Bld) 8.7 % Normal 1.7 - 13.0 % AO Workflow SS Natriuretic peptide.B prohormone N-Terminal [Mass/Vol] 3632 pg/mL High 0 - 125 pg/mL AO ADM SS Comment on above: Interpretive Data: N T-proBNP results of less than 300 pg/mL effectively rules out acute congestive heart failure with 99% negative predictive value. Neutrophil, Absolute 5.6 103/mcL Normal 2.9 - 6 .2 10^3/mcL AO Workflow SS Neutrophils/100 WBC (Bld) 63.7 % Normal 37.0 - 80.0 % AO Workflow SS Platelet mean volume (Bld) [Entitic vol] 8.2 fL Normal 7.4 - 10.4 fL AO Workflow SS Platelets (Bld) [#/Vol] 240 103/mcL Normal 130 - 400 10^3/mcL AO Workflow SS Potassium [Moles/Vol] 3.7 mmol/L Normal 3.5 - 5.1 mmol/L AO ADM SS RBC (Bld) [#/Vol] 5.12 106/mcL Normal 4.04 - 6.1 3 10^6/mcL AO Workflow SS Sodium [Moles/Vol] 138 mmol/L Normal 136 - 145 mmol/L AO ADM SS Troponin I.cardiac DL <= 0.01 ng/mL [Mass/Vol] 37 ng/L Normal 0 - 76 ng/L AO ADM SS Comment on above: Interpretive Data: H igh Sensitive Troponin I Reference Ranges: Female: 0-51 ng/L Male: 0-76 ng/L Testing performed on Dimension EXL using a homogeneous sandwich chemiluminescent immunoassay based on LOCI technology. Urea nitrogen [Mass/Vol] 12 mg/dL Normal 7 - 18 mg/dL AO ADM SS Urea nitrogen/Creatinine [Mass ratio] 8 ratio Normal 7 - 27 ratio AO ADM SS WBC (Bld) [#/Vol] 8.8 103/mcL Normal 4.6 - 10.8 10^3/mcL AO Workflow SS PBNPon 03-29-2024 Natriuretic peptide B (Bld) [Mass/Vol] 3632 pg/mL High 0-125 [facility] ([place]) Comment on above: Result Comment: NT-p roBNP results of less than 300 pg/mL effectively rules out acute congestive heart failure with 99% negative predictive value. Performed By: #### C BC, GFR, MDW, BMP, ANEU, PBNP, TROPHS, ADIFF ####[address] [place], [place] [address] TROPHSon 03-29-2024 High Sensitivity Troponin I 37 ng/L Normal 0-76 [facility] ([place]) Comment on above: Result Comment: High Sensitive Troponin I Reference Ranges: Female: 0-51 ng/L Male: 0-76 ng/L Testing performed on Dimension EXL using a homogeneous sandwich chemiluminescent immunoassay based on LOCI technology. Performed By: #### C BC, GFR, MDW, BMP, ANEU, PBNP, TROPHS, ADIFF ####[address] [place], [place] [address] XR CHEST 1 VIEWon 03-29-2024 XR CHEST 1 VIEW ORIGINAL EXAMINATION: ONE XRAY VIEW OF THE CHEST03/29/2024 10:36 am COMPARISON: Portable chest 11/28/2023. HISTORY: ORDERING SYSTEM PROVIDED HISTORY: Reason for Exam: dyspnea FINDINGS: There is borderline to mild cardiomegaly. Hilar contours and pulmonary vasculature are normal. There is stable linear scarring in the periphery the left mid lung. There is no infiltrates or atelectasis or gross effusions are pneumothorax. IMPRESSION: No acute intrathoracic process. Interpreted by: Ulysses Murray Preliminary Report By: Ulysses Murray Electronically signed By Ulysses Murray Dictated Date: 03/29/2024 10:38:37 AM Prelim Date: 03/29/2024 10:39:18 AM Sign Date: 03/29/2024 10:39:18 AM Ordering Provider: KYLIE Peters [facility] ([place]) CNOVon 03-28-2024 CNOV Office Visit ([id number] ) VENKAT MARSH ([id number]) 1965 M Date Time Provider Department 03/28/24 10:30 AM BARBIE WELLINGTON [id number] During your visit today, we recorded the following information about you: Respiration Weight Height 16/minute 133.4 kg 1.727 m Barbie Wellington, 03/28/2024 4:04 PM Signed HPI: Venkat Marsh is a 58 year old male who presents today for pain and bursitis. Flared up few days ago with impact when falling out of bed. H/O bursitis and surgery. Still has excellent use of the elbow. Hurts only when puts direct pressure on it. [place] swollen and warm initially. Worries he will need another surgery or drainage of the elbow bursa sac. PAST MEDICAL HISTORY Diagnosis Date Bipolar 1 disorder (HCC) CAD S/P percutaneous coronary angioplasty 2011 [place] Diabetes mellitus (HCC) History of acute myocardial infarction HTN (hypertension) Hypercholesteremia Hypothyroidism PAST SURGICAL HISTORY Procedure Laterality Date ANGIOPLASTY 2011 [facility] STENT COLONOSCOPY 2009 [place] ARTHROSCOPY/SURGERY 2000 loose body removal lt HAND SURGERY HX Left 2022 KNEE ARTHROSCOPY/SURGERY 1984 loose body removal lt OSTEOTOMY FIBULA Left 1980 PAST SURGICAL HISTORY OF 1988 Rt wrist bone graft PAST SURGICAL HISTORY OF R navicular REPAIR INGUINAL HERNIA 1986 REPAIR NASAL SEPTUM DEFECT 1996 THYROIDECTOMY SUBTOTAL/PARTIAL 2009 TONSILLECTOMY PRIMARY/SECONDARY Tonsillectomy Social History Tobacco Use Smoking status: Every Day Packs/day: 0.50 Years: 40.00 Additional pack years: 0.00 Total pack years: 20.00 Types: Cigarettes Start date: 04/21/2023 Smokeless tobacco: Never Vaping Use Vaping Use: Never used Substance Use Topics Alcohol use: No Drug use: No Current Outpatient Medications Medication Sig empagliflozin (JARDIANCE) 10 mg tablet Take 1 tablet by mouth daily with breakfast. mirtazapine (REMERON) 15 mg tablet Take 1 tablet by mouth daily at bedtime. traZODone (DESYREL) 100 mg tablet Take 1 tablet by mouth daily at bedtime. albuterol HFA (PROVENTIL HFA, VENTOLIN HFA) 90 mcg/actuation inhaler Inhale 2 Puffs as instructed every 4 hours as needed for wheezing/shortness of breath. dulaglutide (TRULICITY) 0.75 mg/0.5 mL pen injector Inject 0.75 mg subcutaneously one time a week. Monitor bs closely and keep food log fluticasone (FLONASE) 50 mcg/actuation nasal spray Use 2 Sprays in each nostril once daily. Insulin Whitman, Disposable, (PEN NEEDLE) 32 gauge x 5/32 Inject 1 Each subcutaneously every 24 hours. Give with each insulin administration. Insulin Syringe-Needle U-100 0.5 mL 31 gauge x 5/16 Inject 1 Each subcutaneously every 24 hours. Give with each insulin administration. metoprolol succinate ER (TOPROL XL) 25 mg 24 hr tablet Take 1 tablet by mouth once daily. aspirin, enteric coated (ADULT LOW DOSE ASPIRIN) 81 mg EC tablet Take 1 tablet by mouth once daily. ibuprofen (MOTRIN) 600 mg tablet Take 1 tablet by mouth every 8 hours as needed for pain. insulin glargine 100 unit/mL (3 mL) Inject 20 Units subcutaneously once daily. levothyroxine (SYNTHROID) 125 mcg tablet Take 1 tablet by mouth daily before breakfast. losartan (COZAAR) 25 mg tablet Take 1 tablet by mouth two times a day. metFORMIN (GLUCOPHAGE) 1,000 mg tablet Take 1 tablet by mouth two times a day. rosuvastatin (CRESTOR) 10 mg tablet Take 1 tablet by mouth daily at bedtime. MULTI-VITAMIN ORAL None Entered No current facility-administered medications for this visit. ALLERGIES Allergen Reactions Amoxicillin-Pot Cla* Anaphylaxis, Swelling Metformin Diarrhea Lisinopril Cough Sulfamethoxazole-Tr* Rash, Hives, Swelling Resp 16 Ht 5' 8 (1.73m) Wt 294 lb (133.4kg) BMI 44.71 kg/(m2). EXAM: Examination of the left elbow reveals excellent strength and range of motion. There is no pain or weakness with resisted elbow extension. Excellent ligament stability of the elbow. Mild tenderness of the olecranon but no swelling that would suggest a bursitis. No redness or warmth that would suggest cellulitis or infection. Normal sensation, reflexes, and pulses ASSESSMENT: (S50.02XA) Contusion of left elbow, initial encounter (primary encounter diagnosis) PLAN: Venkat has pain typical of elbow contusion on the olecranon. There are no signs of bursitis or infection. There are no signs of ligament or tendon injury. There are no signs of fracture or arthritis. He will avoid direct pressure. Back as needed if pain or swelling flareup. Barbie Wellington, Referring Provider: SELF [[id number]] Allergies As of Date: 03/28/2024 Noted Allergy Reaction AMOXICILLIN-POT CLAVULANATE 12/23/2023 10 - Anaphylaxis 7 - Swelling METFORMIN 04/26/2023 6 - Diarrhea LISINOPRIL 04/24/2023 3 - Cough SULFAMETHOXAZOLE-TRIM ETHOPRIM 10/20/2009 2 - Rash 4 - Hives 7 - Swelling Date Reviewed: (more content not included)... Normal [facility] XR Elbow - left AP and Later al and obliqueon 03-28-2024 3 views of left elbo w were obtained. No fracture/dislocation/ tumors noted. Joint spaces well maintained. Assessment: Normal left elbow. [facility] RADIOLOGY [facility] Radiology Study observation (narrative) [facility] ALBUMIN/CREATININE RATIO, UR INEon 03-16-2024 Albumin Unsp time DL <= 20 mg/L (U) [Mass/Time] 1165.2 mg/L Normal [facility] Comment on above: Order Comment: Speci men Type: BLOOD SPECIMEN Ordering Facility: [facility] Address: [address] [place] [address] Performed By: #### 1 4979-9 #### [facility] CLIA [id number] [address] [place] [address] [place] Albumin/Creatinine (U) [Mass ratio] 1272 mg/g High <30 [facility] Comment on above: Order Comment: Speci men Type: BLOOD SPECIMEN Ordering Facility: [facility] Address: [address] [place], [place] [address] Result Comment: Adul t Male and Female Nephrotic Criteria: <30 mg/g is considered normal to mildly increased 30-300 mg/g is considered moderately increased >300 mg/g is considered severely increased KDIGO. (2013). KDIGO 2012 Clinical Practice Guideline for the Evaluation and Management of Chronic Kidney Disease. Official Journal of the International Society of Nephrology, 3(1), 1-150. Performed By: #### 1 4979-9 #### [facility] CLIA [id number] [address] [facility] Creatinine (U) [Mass/Vol] 91.6 mg/dL Normal 46.8-314.5 [facility] Comment on above: Order Comment: Speci men Type: BLOOD SPECIMEN Ordering Facility: [facility] Address: [address] [place] [address] Performed By: #### 1 4979-9 #### [facility] CLIA [id number] [address] [place] Urinalysis complete panel (U )on 03-16-2024 Bilirubin Ql (U) Negative Normal Negative [facility] Comment on above: Order Comment: Speci men Type: URINE SPECIMENOrdering Facility: [facility] Address: [address] [place] [address] Performed By: #### 2 4356-8 ####[facility] [id number] [address] [place] Clarity (Unsp spec) Clear Normal Clear [facility] Comment on above: Order Comment: Speci men Type: URINE SPECIMENOrdering Facility: [facility] Address: [address] [place] [address] Performed By: #### 2 4356-8 ####[facility]ORYCLIA [id number] [address] Color (U) Light Yellow Normal yellow [facility] Comment on above: Order Comment: Speci men Type: URINE SPECIMENOrdering Facility: [facility] Address: [address] [place] [address] Performed By: #### 2 4356-8 ####[facility]ORYCLIA [id number] [address] Glucose Test strip (U) [Mass/Vol] Negative Normal Trace, Negative [facility] Comment on above: Order Comment: Speci men Type: URINE SPECIMENOrdering Facility: [facility] Address: [address] [place] [address] Performed By: #### 2 4356-8 ####[facility]ATORYCLIA [id number] [address] Hemoglobin Ql (U) Negative Normal Negative, Trace [facility] Comment on above: Order Comment: Speci men Type: URINE SPECIMENOrdering Facility: [facility] Address: [address] [place] [address] Performed By: #### 2 4356-8 ####[facility]ORATORYCLIA [id number] [address] [place] Hyaline casts (Urine sed) [#/Area] 4-10 /LPF Abnormal 0 /LPF [facility] Comment on above: Order Comment: Speci men Type: URINE SPECIMENOrdering Facility: [facility] Address: [address] [place] [address] Performed By: #### 2 4356-8 ####[facility]ORATORYCLIA [id number] [address] [place] Ketones Ql (U) Negative Normal Negative, Trace [facility] Comment on above: Order Comment: Speci men Type: URINE SPECIMENOrdering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 (Bld) 49.9 % 47-70 [facility] Potassium [Moles/Vol] 4.1 mmol/L 3.5-5.1 [facility] Protein [Mass/Vol] 7.0 g/dL 6.4-8.2 [facility] Sodium [Moles/Vol] 131 mmol/L 136-145 [facility] WBC (Bld) [#/Vol] 7.8 10*3/uL 4.4-11.0 [facility] Basophil percentage 0 SEEN /hpf 0-5 [facility] Bilirubin Test strip Ql (U)O rdered By: Bean Kwon on 09-04-2023 Bilirubin Ql (U) Negative Negative [facility] Blood erythrocytes count (nu mber/volume)Ordered By: Bean Kwon on 09-04-2023 RBC (Bld) [#/Vol] 5.10 10*6/uL 4.6-6.2 [facility] Blood hemoglobin measurement (mass/volume)Ordered By: Bean Kwon on 09-04-2023 Hemoglobin (Bld) [Mass/Vol] 16.2 g/dL 13.0-16.5 [facility] Blood lymphocytes/100 leukoc ytesOrdered By: Bean Kwon on 09-04-2023 Lymphocytes/100 WBC (Bld) 34.0 % 19-41 [facility] Blood monocytes/100 leukocyt esOrdered By: Bean Kwon on 09-04-2023 Monocytes/100 WBC (Bld) 8.1 % 0-10 [facility] Blood platelet mean volumeOr dered By: Bean Kwon on 09-04-2023 Platelet mean volume (Bld) [Entitic vol] 10.7 fL 6.2-12.0 [facility] Determination of erythrocyte mean corpuscular volume (MCV)Ordered By: Bean Kwon on 09-04-2023 MCV (RBC) [Entitic vol] 90.4 fL 80-94 [facility] Hematocrit Auto (Bld) [Volum e fraction]Ordered By: Bean Kwon on 09-04-2023 Hematocrit (Bld) [Volume fraction] 46.1 % 40-54 [facility] Ketones Test strip Ql (U)Ord ered By: Bean Kwon on 09-04-2023 Ketones Ql (U) Negative Negative [facility] Laboratory - Chemistry and C hemistry - challengeOrdered By: Bean Kwon on 09-04-2023 ALP [Catalytic activity/Vol] 78 U/L 45-117 [facility] ALT [Catalytic activity/Vol] 38 U/L 16-61 [facility] CO2 [Moles/Vol] 27.0 mmol/L 21.0-32.0 [facility] Globulin (S) [Mass/Vol] 3.9 g/dL 2.2-4.2 [facility] Urea nitrogen/Creatinine [Mass ratio] 10.7 mg/mg 10-20 [facility] Laboratory - Hematology and Cell countsOrdered By: Bean Kwon on 09-04-2023 Erythrocyte distribution width (RBC) [Entitic vol] 37.6 fL 35.1-43.9 [facility] Erythrocyte distribution width (RBC) [Ratio] 11.4 % 11.6-14.6 [facility] Immature granulocytes/100 WBC (Bld) 0.400 % 0.0-0.9 [facility] Comment on above: IG% - Immature Granu locytes (promyelocytes, myelocytes and metamyelocytes) > 1% indicates that a LEFT SHIFT is Present. MCH (RBC) [Entitic mass] 31.8 pg 27.0-32.0 [facility] Nucleated RBC/100 WBC (Bld) [Ratio] 0 % 0-5 [facility] MCHC Auto (RBC) [Mass/Vol]Or dered By: Bean Kwon on 09-04-2023 MCHC (RBC) [Mass/Vol] 35.1 g/dL 32-36 [facility] Mucus LM Ql (Urine sed)Order ed By: Bean Kwon on 09-04-2023 Mucus Ql (Urine sed) 0 SEEN /hpf [facility] Nitrite Test strip Ql (U)Ord ered By: Bean Kwon on 09-04-2023 Nitrite Ql (U) Negative Negative [facility] No Panel InformationOrdered By: Bean Kwon on 09-04-2023 Estimated Creatinine Clearance Calc 67.86 ml/min [facility] Estimated GFR (MDRD) Amer 86 mL/min >60 [facility] Comment on above: GFR Calc Estimated GFR (MDRD) Non-Af Amer 71 mL/min >60 [facility] Comment on above: Non- GFR Calc Platelets bldOrdered By: Shena Kwon on 09-04-2023 Platelets (Bld) [#/Vol] 226 10*3/uL 150-450 [facility] Protein Test strip Ql (U)Ord ered By: Bean Kwon on 09-04-2023 Protein Ql (U) 30 mg/dl Negative [facility] Serum or plasma acetone greer urement (mass/volume)Ordered By: Bean Kwon on 09-04-2023 Acetone [Mass/Vol] Negative NEG [facility] Serum or plasma albumin greer urement (mass/volume)Ordered By: Bean Kwon on 09-04-2023 Albumin [Mass/Vol] 3.1 g/dL 3.2-5.0 [facility] Serum or plasma albumin/glob ulin mass ratioOrdered By: Bean Kwon on 09-04-2023 Albumin/Globulin [Mass ratio] 0.8 {ratio} 0.9-2.4 [facility] Serum or plasma calcium rgeer urement (mass/volume)Ordered By: Bean Kwon on 09-04-2023 Calcium [Mass/Vol] 8.9 mg/dL 8.5-10.1 [facility] Serum or plasma creatinine m easurement (mass/volume)Ordered By: Bean Kwon on 09-04-2023 Creatinine [Mass/Vol] 1.12 mg/dL 0.70-1.30 [facility] Comment on above: The validity of the calculated GFR & GFRAA in patients over 70 years has not been determined. Clinical correlation is essential. Serum or plasma urea nitroge n measurement (mass/volume)Ordered By: Bean Kwon on 09-04-2023 Urea nitrogen [Mass/Vol] 12 mg/dL 7-18 [facility] Squamous epithelial cells de tection in urine sediment by light microscopyOrdered By: Bean Kwon on 09-04-2023 Epithelial cells.squamous LM Ql (Urine sed) 0 SEEN /hpf 0-5 [facility] Thin prep Papanicolaou smear with manual screeningOrdered By: Bean Kwon on 09-04-2023 Thin prep Papanicolaou smear with manual screening 20 U/L 15-37 [facility] Thin prep Papanicolaou smear with manual screening 9 5-15 [facility] Urine blood detectionOrdered By: Bean Kwon on 09-04-2023 RBC Ql (U) 10 /ul Negative [facility] RBC Ql (U) 0 SEEN /hpf 0-5 [facility] Urine clarityOrdered By: Shena Kwon on 09-04-2023 Clarity (U) Clear Clear [facility] Urine color determinationOrd ered By: Bean Kwon on 09-04-2023 Color (U) Yellow Yellow [facility] Urine glucose detectionOrder ed By: Bean Kwon on 09-04-2023 Glucose Ql (U) 1000 mg/dl Normal [facility] Urine leukocyte esterase det ection by dipstickOrdered By: Bean Kwon on 09-04-2023 Leukocyte esterase Test strip Ql (U) Negative Negative [facility] Urine pHOrdered By: Bean carter on 09-04-2023 pH (U) 7.0 [pH] 5.0 - 8.0 [facility] Urine sediment bacteria coun t by microscopy (number/high power field)Ordered By: Bean Kwon on 09-04-2023 Bacteria LM.HPF (Urine sed) [#/Area] 0 /[HPF] None Seen [facility] Urine specific gravity measu rementOrdered By: Bean Kwon on 09-04-2023 Specific gravity (U) [Rel density] 1.010 1.002-1.030 [facility] Urobilinogen Auto test strip Ql (U)Ordered By: Bean Kwon on 09-04-2023 Urobilinogen Ql (U) Normal mg/dl Normal [facility] GLUCOSE, BLOOD (POC)on 08-31 Glucose [Mass/Vol] 526 mg/dL Abnormal 74 - 99 mg/dL [facility] UA DIP, URINE (POC)on 2022 BILIRUBIN UA (POCT) Negative Negative [facility] CLARITY UA (POCT) Clear [facility] COLOR UA (POCT) Yellow [facility] GLUCOSE UA (POCT) >=1000 Abnormal Negative mg/dL [facility] Hemoglobin Ql (U) Trace-intact Abnormal Negative [facility] KETONE UA (POCT) Negative Negative mg/dL [facility] LEUKOCYTES UA (POCT) Negative Negative [facility] NITRITE UA (POCT) Negative Negative [facility] PH UA (POCT) 7.0 4.5 - 8.0 [facility] Protein Ql (U) Negative Negative mg/dL [facility] SPECIFIC GRAVITY UA (POCT) 1.010 1.005 - 1.030 [facility] UROBILINOGEN UA (POCT) 0.2 E.U./dL Antonette l E.U./dL [facility] NM CARDIAC PERF STRESS/PHARM on 07-29-2023 [facility] Comprehensive metabolic 2000 panelon 03-25-2023 Albumin [Mass/Vol] 4.1 g/dL 3.9 - 4.9 g/dL [facility] ALP [Catalytic activity/Vol] 55 U/L 38 - 113 U/L [facility] ALT With P-5'-P [Catalytic activity/Vol] 18 U/L 10 - 54 U/L [facility] Anion gap [Moles/Vol] 12 mmol/L 9 - 18 mmol/L [facility] AST With P-5'-P [Catalytic activity/Vol] 19 U/L 14 - 40 U/L [facility] Bilirubin [Mass/Vol] 0.3 mg/dL 0.2 - 1 .3 mg/dL [facility] Calcium [Mass/Vol] 8.9 mg/dL 8.5 - 10. 2 mg/dL [facility] Chloride [Moles/Vol] 102 mmol/L 97 - 10 5 mmol/L [facility] CO2 [Moles/Vol] 27 mmol/L 22 - 30 mmol/L [facility] Creatinine [Mass/Vol] 1.19 mg/dL 0.73 - 1.22 mg/dL [facility] Estimated Glomerular Filtration Rate 70 mL/min/1.73m >=60 mL/min/1.73m [facility] Glucose [Mass/Vol] 119 mg/dL High 74 - 99 mg/dL [facility] Potassium [Moles/Vol] 4.2 mmol/L 3.7 - 5.1 mmol/L [facility] Protein [Mass/Vol] 7.0 g/dL 6.3 - 8.0 g/dL [facility] Sodium [Moles/Vol] 141 mmol/L 136 - 144 mmol/L [facility] Urea nitrogen [Mass/Vol] 13 mg/dL 9 - 24 mg/dL [facility] HEPATITIS C ANTIBODY IA WITH CONFIRMATIONon 03-25-2023 HCV Ab Ql (S) Non-Reactive Nonreactive [facility] HIV 1+2 Ab IA Qlon HIV 1 and 2 Ab IA.rapid Nom [facility] HIV 1+2 Ab+HIV1 p24 Ag IA Ql Non-Reactive Nonreactive [facility] HIV Interpretation [facility] HbA1c (Bld)on 03-25-2023 Average glucose Estimated from glycated hemoglobin (Bld) [Mass/Vol] 189 mg/dL [facility] HbA1c (Bld) [Mass fraction] 8.2 % High 4.3 - 5.6 % [facility] PSA/PROSTSPECAG SCRNon 03-25 Prostate specific Ag [Mass/Vol] 1.55 ng/mL <2.60 ng/mL [facility] No Panel Information [facility] Vital Signs Date Time Vital Sign Value Performing Clinician Facility 02-22-2025 10: Body height 170.2 cm Talita Ross MD Work Phone: [facility] 02-22-2025 [id number] Body mass index (BMI) [Ratio] 45.11 kg/m2 Talita Ross MD Work Phone: [facility] 02-22-2025 10: Body weight 130.64 kg Talita Ross MD Work Phone: [facility] 02-22-2025 10:040 Heart rate 76 /min Talita Ross MD Work Phone: [facility] 02-22-2025 10:28040 SaO2% (BldA) [Mass fraction] 92 % Taliat Ross MD Work Phone: [facility] 01-19-2025 10:38-0400 Body height 170.2 cm Nikolai Wiggers DO Work Phone: [facility] 01-19-2025 10:38-0400 Body mass index (BMI) [Ratio] 43.85 kg/m2 Nikolai Wiggers DO Work Phone: [facility] 01-19-2025 10:38-0400 Body temperature 97.59 [degF] Nikolai Wiggers DO Work Phone: [facility] 01-19-2025 10:38-0400 Body weight 127.01 kg Nikolai Wiggers DO Work Phone: [facility] 01-19-2025 10:38-0400 Diastolic blood pressure 87 mm[Hg] Nikolai Wiggers DO Work Phone: [facility] 01-19-2025 10:38-0400 Heart rate 99 /min Inkolai Wiggers DO Work Phone: [facility] 01-19-2025 10:38-0400 Respiratory rate 18 /min Nikolai Wiggers DO Work Phone: [facility] 01-19-2025 10:38-0400 SaO2% (BldA) [Mass fraction] 96 % Nikolai Wiggers DO Work Phone: [facility] 01-19-2025 10:38-0400 Systolic blood pressure 139 mm[Hg] Nikolai Wiggers DO Work Phone: [facility] 01-17-2025 02:52-0400 Body temperature 98.2 [degF] Harry Carey PA-C Work Phone: [facility] [employer] 01-17-2025 02:52-0400 Diastolic blood pressure 91 mm[Hg] Harry CAMP-Biju Work Phone: [employer] 01-17-2025 02:52-0400 Heart rate 89 /min Harry Carey PA-C Work Phone: [facility] 01-17-2025 02:52-0400 Respiratory rate 18 /min Harry Orgooer PA-C Work Phone: [facility] 01-17-2025 02:52-0400 SaO2% (BldA) [Mass fraction] 93 % Harry Daveytzer PA-C Work Phone: [facility] 01-17-2025 02:52-0400 Systolic blood pressure 132 mm[Hg] Harry Tamicatzer PA-C Work Phone: [facility] 01-17-2025 00:18-0400 Body mass index (BMI) [Ratio] 44.79 kg/m2 Harry Tamicatzer PA-C Work Phone: [facility] 01-17-2025 00:18-0400 Body weight 129.73 kg Harry [employer] PA-C Work Phone: [facility] 01-14-2025 18:31-0400 Body height 170.2 cm Harry Tamicatiffanieer PA-C Work Phone: [facility] 01-06-2025 00:29-0400 Body temperature 98 [degF] No Primary Care Physician [facility] 01-06-2025 00:29-0400 Diastolic blood pressure 100 mm[Hg] No Primary Care Physician [facility] 01-06-2025 00:29-0400 Heart rate 78 /min No Primary Care Physician [facility] 01-06-2025 00:29-0400 Respiratory rate 22 /min No Primary Care Physician [facility] 01-06-2025 00:29-0400 SaO2% (BldA) [Mass fraction] 95 % No Primary Care Physician [facility] 01-06-2025 00:29-0400 Systolic blood pressure 190 mm[Hg] No Primary Care Physician [facility] 01-05-2025 21:04-0400 Body height 172.72 cm No Primary Care Physician [facility] 01-05-2025 21:04-0400 Body mass index (BMI) [Ratio] 46.2 kg/m2 No Primary Care Physician [facility] 01-05-2025 21:04-0400 Body weight 137.9 kg No Primary Care Physician [facility] 12-23-2024 03:19-0400 Body temperature 98.5 [degF] Dr. Terry Gould MD Work Phone: [facility] 12-23-2024 03:19-0400 Diastolic blood pressure 86 mm[Hg] Dr. Terry Gould MD Work Phone: [facility] 12-23-2024 03:19-0400 Heart rate 78 /min Dr. Terry Gould MD Work Phone: [facility] 12-23-2024 03:19-0400 Respiratory rate 22 /min Dr. Terry Gould MD Work Phone: [facility] 12-23-2024 03:19-0400 SaO2% (BldA) [Mass fraction] 90 % Dr. Terry Gould MD Work Phone: [facility] 12-23-2024 03:19-0400 Systolic blood pressure 120 mm[Hg] Dr. Terry Gould MD Work Phone: [facility] 12-23-2024 00:40-0400 Body height 172.[address] Terry Gould MD Work Phone: [facility] 12-23-2024 00:40-0400 Body mass index (BMI) [Ratio] 47.9 kg/m2 Dr. Terry Gould MD Work Phone: [facility] 12-23-2024 00:40-0400 Body weight [address] Terry Gould MD Work Phone: [facility] 12-08-2024 13:10-0400 Body height 170.2 cm Issac Xiao MD Work Phone: [facility] 12-08-2024 13:10-0400 Body mass index (BMI) [Ratio] 47.61 kg/m2 Issac Xiao MD Work Phone: [facility] 12-08-2024 13:10-0400 Body weight 137.89 kg Issac Xiao MD Work Phone: [facility] 12-08-2024 13:10-0400 Diastolic blood pressure 70 mm[Hg] Issac Xiao MD Work Phone: [facility] 12-08-2024 13:10-0400 Heart rate 88 /min Issac Xiao MD Work Phone: [facility] 12-08-2024 13:10-0400 Respiratory rate 16 /min Issac Xiao MD Work Phone: [facility] 12-08-2024 13:10-0400 Systolic blood pressure 128 mm[Hg] Issac Xiao MD Work Phone: [facility] 11-09-2024 22:30-0500 Diastolic Blood Pressure Non-Invasive 100 mm[Hg] DR SERGEI DAWN DO [facility] 11-09-2024 22:30-0500 Heart rate 82 /min DR SERGEI DAWN DO [facility] 11-09-2024 22:30-0500 Respiratory rate 18 /min DR SERGEI DAWN DO [facility] 11-09-2024 22:30-0500 Systolic Blood Pressure Non-Invasive 136 mm[Hg] DR SERGEI DAWN DO [facility] 11-09-2024 21:49-0500 Heart rate 90 /min DR SERGEI DAWN DO [facility] 11-09-2024 21:49-0500 Respiratory rate 18 /min DR SERGEI DAWN DO [facility] 11-09-2024 19:49-0500 Body temperature 98.78 [degF] DR SERGEI DAWN DO [facility] 11-09-2024 19:49-0500 Diastolic Blood Pressure Non-Invasive 106 mm[Hg] DR SERGEI DAWN DO [facility] 11-09-2024 19:49-0500 Heart rate 85 /min DR SERGEI DAWN DO [facility] 11-09-2024 19:49-0500 Respiratory rate 22 /min DR SERGEI DAWN DO [facility] 11-09-2024 19:49-0500 Systolic Blood Pressure Non-Invasive 142 mm[Hg] DR SERGEI DAWN DO [facility] 11-09-2024 11:25-0500 Body height 170.2 cm Issac Xiao MD Work Phone: [facility] 11-09-2024 11:25-0500 Body mass index (BMI) [Ratio] 47.3 kg/m2 Issac Xiao MD Work Phone: [facility] 11-09-2024 11:25-0500 Body weight 136.99 kg Issac Xiao MD Work Phone: [facility] 11-09-2024 11:25-0500 Diastolic blood pressure 80 mm[Hg] Issac Xiao MD Work Phone: [facility] 11-09-2024 11:25-0500 Heart rate 84 /min Issac Xiao MD Work Phone: [facility] 11-09-2024 11:25-0500 Respiratory rate 16 /min Issac Xiao MD Work Phone: [facility] 11-09-2024 11:25-0500 SaO2% (BldA) [Mass fraction] 95 % Issac Xiao MD Work Phone: [facility] 11-09-2024 11:25-0500 Systolic blood pressure 126 mm[Hg] Issac Xiao MD Work Phone: [facility] 11-07-2024 14:36-0500 Body height 170.2 cm Inder Bruce MD Work Phone: [facility] 11-07-2024 14:36-0500 Body mass index (BMI) [Ratio] 46.2 kg/m2 Inder Bruce MD Work Phone: [facility] 11-07-2024 14:36-0500 Body weight 133.81 kg Inder Bruce MD Work Phone: [facility] 11-07-2024 14:36-0500 Diastolic blood pressure 84 mm[Hg] Inder Bruce MD Work Phone: [facility] 11-07-2024 14:36-0500 Heart rate 88 /min Inder Bruce MD Work Phone: [facility] 11-07-2024 14:36-0500 Respiratory rate 20 /min Inder Bruce MD Work Phone: [facility] 11-07-2024 14:36-0500 Systolic blood pressure 141 mm[Hg] Inder Bruce MD Work Phone: [facility] 10-27-2024 13:41-0500 Body height 170.4 cm Oscar Brizuela MD Work Phone: [facility] Comment on above: refused to remove shoes 10-27-2024 13:41-0500 Body mass index (BMI) [Ratio] 45.31 kg/m2 Oscar Brizuela MD Work Phone: [facility] 10-27-2024 13:41-0500 Body weight 131.56 kg Oscar Brizuela MD Work Phone: [facility] 10-27-2024 13:41-0500 Diastolic blood pressure 108 mm[Hg] Oscar Brizuela MD Work Phone: [facility] 10-27-2024 13:41-0500 Heart rate 90 /min Oscar Brizuela MD Work Phone: [facility] 10-27-2024 13:41-0500 Respiratory rate 20 /min Oscar Brizuela MD Work Phone: [facility] 10-27-2024 13:41-0500 SaO2% (BldA) [Mass fraction] 99 % Oscar Brizuela MD Work Phone: [facility] 10-27-2024 13:41-0500 Systolic blood pressure 152 mm[Hg] Oscar Brizuela MD Work Phone: [facility] 10-18-2024 10:10-0500 Body height 170.2 cm Oral Abbasi DO Work Phone: [facility] 10-18-2024 10:10-0500 Body mass index (BMI) [Ratio] 44.95 kg/m2 Oral Ayleen DO Work Phone: [facility] 10-18-2024 10:10-0500 Body weight 130.18 kg Oral Ayleen DO Work Phone: [facility] 10-18-2024 10:10-0500 Diastolic blood pressure 93 mm[Hg] Oral Ayleen DO Work Phone: [facility] 10-18-2024 10:10-0500 Heart rate 81 /min Oral Ayleen DO Work Phone: [facility] 10-18-2024 10:10-0500 Systolic blood pressure 141 mm[Hg] Oral Ayleen DO Work Phone: [facility] 10-18-2024 09:07-0500 Body height 170.2 cm Inder Bruce MD Work Phone: [facility] 10-18-2024 09:07-0500 Body mass index (BMI) [Ratio] 45.73 kg/m2 Inder Bruce MD Work Phone: [facility] 10-18-2024 09:07-0500 Body weight 132.45 kg Inder Bruce MD Work Phone: [facility] 10-18-2024 09:07-0500 Diastolic blood pressure 124 mm[Hg] Inder Bruce MD Work Phone: [facility] Comment on above: Manual 155 110 10-18-2024 09:07-0500 Heart rate 83 /min Inder Bruce MD Work Phone: [facility] 10-18-2024 09:07-0500 Respiratory rate 24 /min Inder Bruce MD Work Phone: [facility] 10-18-2024 09:07-0500 SaO2% (BldA) [Mass fraction] 96 % Inder Bruce MD Work Phone: [facility] 10-18-2024 09:07-0500 Systolic blood pressure 164 mm[Hg] Inder Bruce MD Work Phone: [facility] Comment on above: Manual 155 110 08-31-2024 12:45-0500 Body temperature 98 [degF] Dr. Terry Gould MD Work Phone: 5(383)912-423967 [place] [address] 08-31-2024 12:45-0500 Diastolic blood pressure 78 mm[Hg] Dr. Terry Gould MD Work Phone: 2(617)[phone] [place] [address] 08-31-2024 12:45-0500 Heart rate 78 /min Dr. Terry Gould MD Work Phone: 1(010)073-548567 [place] [address] 08-31-2024 12:45-0500 Respiratory rate 16 /min Dr. Terry Gould MD Work Phone: 6(759)[phone] [place] [address] 08-31-2024 12:45-0500 SaO2% (BldA) [Mass fraction] 99 % Dr. Terry Gould MD Work Phone: 1(851)349-570767 [place] [address] 08-31-2024 12:45-0500 Systolic blood pressure 148 mm[Hg] Dr. Terry Gould MD Work Phone: 8(555)[phone] [place] [address] 08-31-2024 08:36-0500 Body mass index (BMI) [Ratio] 43.6 kg/m2 Dr. Terry Gould MD Work Phone: 6(538)[phone] [place] [address] 08-31-2024 08:36-0500 Body weight 130.[address] Terry Gould MD Work Phone: 8(861)[phone] [place] [address] 05-11-2024 11:00-0400 Body height 170.2 cm Nurse 1 [facility] 05-11-2024 11:00-0400 Body mass index (BMI) [Ratio] 43.07 kg/m2 Nurse 1 [facility] 05-11-2024 11:00-0400 Body weight 124.74 kg Nurse 1 [facility] 05-11-2024 11:00-0400 Diastolic blood pressure 78 mm[Hg] Nurse 1 [facility] Comment on above: home wrist BP cuff today 115/80 05-11-2024 11:00-0400 Heart rate 87 /min Nurse 1 [facility] 05-11-2024 11:00-0400 Respiratory rate 16 /min Nurse 1 [facility] 05-11-2024 11:00-0400 SaO2% (BldA) [Mass fraction] 96 % Nurse 1 [facility] 05-11-2024 11:00-0400 Systolic blood pressure 115 mm[Hg] Nurse 1 [facility] Comment on above: home wrist BP cuff today 115/80 04-27-2024 15:55-0400 Body mass index (BMI) [Ratio] 44.32 kg/m2 Boo Humphrys CULTURAL CENTRE MANAGER.ELEMENTARY SUPERVISOR Work Phone: [facility] 04-27-2024 15:55-0400 Body weight 128.37 kg Boo Humphrys CULTURAL CENTRE MANAGER.ELEMENTARY SUPERVISOR Work Phone: [facility] 04-27-2024 15:55-0400 Diastolic blood pressure 93 mm[Hg] Boo Humphrys CULTURAL CENTRE MANAGER.ELEMENTARY SUPERVISOR Work Phone: [facility] 04-27-2024 15:55-0400 Heart rate 87 /min Boo Humphrys CULTURAL CENTRE MANAGER.ELEMENTARY SUPERVISOR Work Phone: [facility] 04-27-2024 15:55-0400 Respiratory rate 22 /min Boo Humphrys CULTURAL CENTRE MANAGER.ELEMENTARY SUPERVISOR Work Phone: [facility] 04-27-2024 15:55-0400 SaO2% (BldA) [Mass fraction] 94 % Boo Humphrys CULTURAL CENTRE MANAGER.ELEMENTARY SUPERVISOR Work Phone: [facility] Comment on above: RA 04-27-2024 15:55-0400 Systolic blood pressure 137 mm[Hg] Boo Humphrys CULTURAL CENTRE MANAGER.ELEMENTARY SUPERVISOR Work Phone: [facility] 04-11-2024 09:02-0400 Body mass index (BMI) [Ratio] 45.01 kg/m2 Vancleave Sprandel DO Work Phone: [facility] 04-11-2024 09:02-0400 Body weight 134.26 kg Gavin Sprandel DO Work Phone: [facility] 04-11-2024 09:02-0400 Diastolic blood pressure 120 mm[Hg] Gavin Sprandel DO Work Phone: [facility] 04-11-2024 09:02-0400 Heart rate 94 /min Vancleave Sprandel DO Work Phone: [facility] 04-11-2024 09:02-0400 SaO2% (BldA) [Mass fraction] 97 % Gavin Sprandel DO Work Phone: [facility] 04-11-2024 09:02-0400 Systolic blood pressure 156 mm[Hg] Gavin Sprandel DO Work Phone: [facility] 03-29-2024 10:28-0400 Heart rate 88 /min KYLIE FROMMELT DO [facility] 03-29-2024 10:28-0400 Respiratory rate 16 /min KYLIE FROMMELT DO [facility] 03-29-2024 10:15-0400 Heart rate 91 /min KYLIE FROMMELT DO [facility] 03-29-2024 10:15-0400 Respiratory rate 16 /min KYLIE FROMMELT DO [facility] 03-29-2024 10:02-0400 Respiratory rate 16 /min KYLIE FROMMELT DO [facility] 03-29-2024 09:43-0400 Blood Pressure Location KYLIE FROMMELT DO [facility] 03-29-2024 09:43-0400 Blood Pressure Method KYLIE DURANT DO [facility] 03-29-2024 09:43-0400 Body temperature 98.24 [degF] KYLIE HENRIQUEZT DO [facility] 03-29-2024 09:43-0400 Diastolic Blood Pressure Non-Invasive 92 mm[Hg] KYLIE DURANT DO [facility] 03-29-2024 09:43-0400 Heart rate 92 /min KYLIE DURANT DO [facility] 03-29-2024 09:43-0400 Systolic Blood Pressure Non-Invasive 146 mm[Hg] KYLIE DURANT DO [facility] 03-28-2024 10:38-0400 Body height 172.7 cm Barbie Wyattffer DO Work Phone: [facility] 03-28-2024 10:38-0400 Body mass index (BMI) [Ratio] 44.7 kg/m2 Barbie Peiffer DO Work Phone: [facility] 03-28-2024 10:38-0400 Body weight 133.36 kg Barbie Wyattffer DO Work Phone: [facility] 03-28-2024 10:38-0400 Respiratory rate 16 /min Barbie Peiffer DO Work Phone: [facility] 02-03-2024 11:21-0400 Body height 172.7 cm Vancleave Sprandel DO Work Phone: [facility] 02-03-2024 11:21-0400 Body mass index (BMI) [Ratio] 38.92 kg/m2 Vancleave Sprandel DO Work Phone: [facility] 02-03-2024 11:21-0400 Body temperature 97.39 [degF] Gavin Sprandel DO Work Phone: [facility] 02-03-2024 11:21-0400 Body weight 116.12 kg Vancleave Sprandel DO Work Phone: [facility] 02-03-2024 11:21-0400 Diastolic blood pressure 76 mm[Hg] Gavin Sprandel DO Work Phone: [facility] 02-03-2024 11:21-0400 Heart rate 79 /min Vancleave Sprandel DO Work Phone: [facility] 02-03-2024 11:21-0400 Respiratory rate 18 /min Gavin Sprandel DO Work Phone: [facility] 02-03-2024 11:21-0400 SaO2% (BldA) [Mass fraction] 94 % Gavin Sprandel DO Work Phone: [facility] 02-03-2024 11:21-0400 Systolic blood pressure 114 mm[Hg] Gavin Sprandel DO Work Phone: [facility] 11-28-2023 09:11-0500 Heart rate 71 /min INDER PRAJAPATI MD [facility] 11-28-2023 09:11-0500 Respiratory rate 22 /min INDER PRAJAPATI MD [facility] 11-28-2023 08:19-0500 Blood Pressure Location INDER PRAJAPATI MD [facility] 11-28-2023 08:19-0500 Body temperature 98.96 [degF] INDER PRAJAPATI MD [facility] 11-28-2023 08:19-0500 Diastolic Blood Pressure Non-Invasive 87 mm[Hg] INDER PRAJAPATI MD [facility] 11-28-2023 08:19-0500 Heart rate 81 /min INDER PRAJAPATI MD [facility] 11-28-2023 08:19-0500 Respiratory rate 20 /min INDER PRAJAPATI MD [facility] 11-28-2023 08:19-0500 Systolic Blood Pressure Non-Invasive 122 mm[Hg] INDER PRAJAPATI MD [facility] 09-10-2023 10:35-0500 Body height 170.2 cm Duncan Craven MD Work Phone: [facility] 09-10-2023 10:35-0500 Body temperature 97.81 [degF] Duncan Craven MD Work Phone: [facility] 09-10-2023 10:35-0500 Body weight 122.92 kg Duncan Craven MD Work Phone: [facility] 09-10-2023 10:35-0500 Diastolic blood pressure 89 mm[Hg] Duncan Craven MD Work Phone: [facility] 09-10-2023 10:35-0500 Heart rate 88 /min Duncan Craven MD Work Phone: [facility] 09-10-2023 10:35-0500 Respiratory rate 20 /min Duncan Craven MD Work Phone: [facility] 09-10-2023 10:35-0500 SaO2% (BldA) [Mass fraction] 95 % Duncan Craven MD Work Phone: [facility] 09-10-2023 10:35-0500 Systolic blood pressure 129 mm[Hg] Duncan Craven MD Work Phone: [facility] 09-04-2023 07:14-0500 Body height 172.72 cm [facility] 09-04-2023 07:14-0500 Body mass index (BMI) [Ratio] 42.3 kg/m2 [facility] 09-04-2023 07:14-0500 Body temperature 96 [degF] [facility] 09-04-2023 07:14-0500 Body weight 126.46 kg [facility] 09-04-2023 07:14-0500 Diastolic blood pressure 119 mm[Hg] [facility] 09-04-2023 07:14-0500 Heart rate 88 /min [facility] 09-04-2023 07:14-0500 Respiratory rate 20 /min [facility] 09-04-2023 07:14-0500 SaO2% (BldA) [Mass fraction] 95 % [facility] 09-04-2023 07:14-0500 Systolic blood pressure 162 mm[Hg] [facility] 08-31-2023 17:25-0500 Body temperature 97.5 [degF] Arnulfo Athy PA-C Work Phone: [facility] 08-31-2023 17:25-0500 Body weight 127.82 kg Arnulfo Athy PA-C Work Phone: [facility] 08-31-2023 17:25-0500 Diastolic blood pressure 104 mm[Hg] Arnulfo Athy PA-C Work Phone: [facility] 08-31-2023 17:25-0500 Heart rate 99 /min Arnulfo Athy PA-C Work Phone: [facility] 08-31-2023 17:25-0500 Respiratory rate 20 /min Arnulfo Athy PA-C Work Phone: [facility] 08-31-2023 17:25-0500 SaO2% (BldA) [Mass fraction] 95 % Arnulfo Athy PA-C Work Phone: [facility] 08-31-2023 17:25-0500 Systolic blood pressure 151 mm[Hg] Arnulfo Athy PA-C Work Phone: [facility] 07-07-2023 10:24-0400 Body temperature 97.81 [degF] Gavin Sprandel DO Work Phone: [facility] 07-07-2023 10:24-0400 Body weight 132 kg Vancleave Sprandel DO Work Phone: [facility] 07-07-2023 10:24-0400 Diastolic blood pressure 93 mm[Hg] Gavin Sprandel DO Work Phone: [facility] 07-07-2023 10:24-0400 Heart rate 87 /min Vancleave Sprandel DO Work Phone: [facility] 07-07-2023 10:24-0400 SaO2% (BldA) [Mass fraction] 94 % Vancleave Sprandel DO Work Phone: [facility] 07-07-2023 10:24-0400 Systolic blood pressure 146 mm[Hg] Gavin Sprandel DO Work Phone: [facility] 07-07-2023 09:23-0400 Body height 170.2 cm Denise Regan MD Work Phone: [facility] 07-07-2023 09:23-0400 Body temperature 96.01 [degF] Denise Regan MD Work Phone: [facility] 07-07-2023 09:23-0400 Body weight 133.16 kg Denise Regan MD Work Phone: [facility] 07-07-2023 09:23-0400 Diastolic blood pressure 97 mm[Hg] Denise Regan MD Work Phone: [facility] 07-07-2023 09:23-0400 Heart rate 95 /min Denise Regan MD Work Phone: [facility] 07-07-2023 09:23-0400 Respiratory rate 24 /min Denise Regan MD Work Phone: [facility] 07-07-2023 09:23-0400 SaO2% (BldA) [Mass fraction] 93 % Denise Regan MD Work Phone: [facility] 07-07-2023 09:23-0400 Systolic blood pressure 142 mm[Hg] Denise Regan MD Work Phone: [facility] 06-30-2023 12:51-0400 Body temperature 97.7 [degF] Rose Mary Stahl APRN.ELEMENTARY SUPERVISOR Work Phone: [facility] 06-30-2023 12:51-0400 Body weight 131.09 kg Rose Mary Stahl CULTURAL CENTRE MANAGER.ELEMENTARY SUPERVISOR Work Phone: [facility] 06-30-2023 12:51-0400 Diastolic blood pressure 99 mm[Hg] Rose Mary Stahl CULTURAL CENTRE MANAGER.ELEMENTARY SUPERVISOR Work Phone: [facility] 06-30-2023 12:51-0400 Heart rate 87 /min Rose Mary Stahl CULTURAL CENTRE MANAGER.ELEMENTARY SUPERVISOR Work Phone: [facility] 06-30-2023 12:51-0400 SaO2% (BldA) [Mass fraction] 98 % Rose Mary Stahl CULTURAL CENTRE MANAGER.ELEMENTARY SUPERVISOR Work Phone: [facility] 06-30-2023 12:51-0400 Systolic blood pressure 144 mm[Hg] Rose Mary Stahl CULTURAL CENTRE MANAGER.ELEMENTARY SUPERVISOR Work Phone: [facility] 06-26-2023 13:23-0400 Body height 170.2 cm Yousuf Ponce MD Work Phone: [facility] 06-26-2023 13:23-0400 Body weight 130.18 kg Yousuf Ponce MD Work Phone: [facility] 06-26-2023 13:23-0400 Diastolic blood pressure 87 mm[Hg] Yousuf Ponce MD Work Phone: [facility] 06-26-2023 13:23-0400 Heart rate 73 /min Yousuf Ponce MD Work Phone: [facility] 06-26-2023 13:23-0400 Respiratory rate 18 /min Yousuf Ponce MD Work Phone: [facility] 06-26-2023 13:23-0400 SaO2% (BldA) [Mass fraction] 96 % Yousuf Ponce MD Work Phone: [facility] 06-26-2023 13:23-0400 Systolic blood pressure 137 mm[Hg] Yousuf Ponce MD Work Phone: [facility] 06-18-2023 13:07-0400 Body height 170.2 cm Alice Ralf DO Work Phone: [facility] 06-18-2023 13:07-0400 Body weight 130.18 kg Alice Ralf DO Work Phone: [facility] 06-18-2023 13:07-0400 Respiratory rate 18 /min Alice Ralf DO Work Phone: [facility] 06-12-2023 11:01-0400 Body height 170.2 cm Talita Ross MD Work Phone: [facility] 06-12-2023 11:01-0400 Body weight 130.18 kg Talita Ross MD Work Phone: [facility] 06-12-2023 11:01-0400 Respiratory rate 18 /min Talita Ross MD Work Phone: [facility] 05-08-2023 08:05-0400 Body height 172.7 cm Talita Ross MD Work Phone: [facility] 05-08-2023 08:05-0400 Body weight 130.18 kg Talita Ross MD Work Phone: [facility] 05-08-2023 08:05-0400 Respiratory rate 18 /min Talita Ross MD Work Phone: [facility] 04-27-2023 13:24-0400 Body height 172.7 cm Gavin Sprandel DO Work Phone: [facility] 04-27-2023 13:24-0400 Body temperature 98.1 [degF] Gavin Sprandel DO Work Phone: [facility] 04-27-2023 13:24-0400 Body weight 130.18 kg Vancleave Sprandel DO Work Phone: [facility] 04-27-2023 13:24-0400 Diastolic blood pressure 95 mm[Hg] Gavin Sprandel DO Work Phone: [facility] 04-27-2023 13:24-0400 Heart rate 87 /min Gavin Sprandel DO Work Phone: [facility] 04-27-2023 13:24-0400 Respiratory rate 20 /min Vancleave Sprandel DO Work Phone: [facility] 04-27-2023 13:24-0400 SaO2% (BldA) [Mass fraction] 96 % Vancleave Sprandel DO Work Phone: [facility] 04-27-2023 13:24-0400 Systolic blood pressure 152 mm[Hg] Gavin Sprandel DO Work Phone: [facility] 03-25-2023 11:03-0400 Body height 172.7 cm Vancleave Sprandel DO Work Phone: [facility] 03-25-2023 11:03-0400 Body weight 129.73 kg Gavin Sprandel DO Work Phone: [facility] 03-25-2023 11:03-0400 Diastolic blood pressure 85 mm[Hg] Gavin Sprandel DO Work Phone: [facility] 03-25-2023 11:03-0400 Heart rate 66 /min Gavin Sprandel DO Work Phone: [facility] 03-25-2023 11:03-0400 Respiratory rate 20 /min Vancleave Sprandel DO Work Phone: [facility] 03-25-2023 11:03-0400 SaO2% (BldA) [Mass fraction] 97 % Vancleave Sprandel DO Work Phone: [facility] 03-25-2023 11:03-0400 Systolic blood pressure 143 mm[Hg] Gavin Sprandel DO Work Phone: [facility] Encounters Encounter Date Encounter Type Care Provider Facility Start: 03-02-2025 End: 03-03-2025 Telephone encounter Nikolai Nazario DO Work Phone: [facility]) Comment on above: Orders (Testosterone testing) Start: 03-01-2025 End: 03-02-2025 Refill Yuliet Fong DO Work Phone: [place] [facility] Comment on above: Refill Request Start: 02-22-2025 End: 02-22-2025 Patient encounter procedure Talita Ross MD Work Phone: [facility] Comment on above: Pain of right hand ( Primary Dx); Osteoarthritis of right thumb Start: 02-22-2025 End: 02-22-2025 ambulatory TALITA ROSS Facility:[id number] Start: 02-22-2025 End: 02-22-2025 Subsequent hospital visit by physician Xr [facility] 3 [facility] Comment on above: Pain of right hand [ M79.641] Start: 02-20-2025 End: 02-22-2025 Telephone encounter Talita Ross MD Work Phone: [facility] Comment on above: Appointment (Appoint ment/Xray Reminder for 02/22/2025) Start: 01-27-2025 End: 01-27-2025 [facility] Yuliet Fong DO Work Phone: [place] [facility] Comment on above: Mood disorder; Insomnia, unspecified type; Anxiety Start: 01-24-2025 End: 01-24-2025 Nursing evaluation of patient and report Natali Weaver RN Work Phone: Endocrinology Comment on above: Type 2 diabetes maice itus with diabetic microalbuminuria, with long-term current use of insulin ([facility]) Start: 01-24-2025 End: 01-24-2025 ambulatory OSCAR BRIZUELA Facility:[facility] Start: 01-19-2025 End: 01-19-2025 Office outpatient visit 40 minutes Nikolai Nazario DO Work Phone: [facility] General Internal [facility] ([facility]) Comment on above: Chronic HFrEF (heart failure with reduced ejection fraction) ([facility]) (Primary Dx); Tobacco abuse; Type 2 diabetes mellitus with diabetic microalbuminuria, with long-term current use of insulin ([facility]); Hypercholesteremia; Primary hypertension; Coronary artery disease involving [place] coronary artery of [place] heart without angina pectoris; Bipolar [address] disorder ([facility]); Obesity, Class III, BMI >= 40; Pain of right hand Start: 01-19-2025 End: 01-19-2025 ambulatory OSCAR BRIZUELA Facility:[facility] Start: 01-18-2025 End: 01-26-2025 Telephone encounter Bre Kojo VINITA - ELEMENTARY SUPERVISOR Work Phone: [facility] [place] Comment on above: Other (HFdEF) Start: 01-17-2025 End: 01-17-2025 ambulatory Te Ramos keg var[employer]isherLine O Scribe Operator Management Comment on above: ACCirstobal PERSON RN ( Chart review per payor request.) Start: 01-16-2025 End: 01-16-2025 Telephone encounter Yuliet Fong DO Work Phone: [place] [facility] Comment on above: Appointment (Set taco t for 01/27) Refill Request (mirt azapine (REMERON) 15 mg tablet/traZODone (DESYREL) 100 mg tablet) Start: 01-13-2025 End: 01-17-2025 ambulatory DONELLGRACIELAGeoff [facility] Start: 01-13-2025 End: 01-17-2025 Emergency department patient visit Harry Carey PA-C Work Phone: [facility] Cardiac Progressive Care Unit PCU 5W Comment on above: Acute congestive hea rt failure, unspecified heart failure type (HCC) (Primary Dx); Localized swelling of both lower legs Start: 01-05-2025 End: 01-06-2025 Emergency department patient visit No Primary Care Physician -Emergency Department Work Phone: Start: 12-23-2024 End: 12-23-2024 Emergency department patient visit Dr. Terry Gould MD Work Phone: -Emergency Department Work Phone: Start: 12-21-2024 End: 12-21-2024 ambulatory Oscar Brizuela MD Work Phone: [facility] [place] Start: 12-21-2024 End: 12-21-2024 Patient encounter procedure Oscar Brizuela MD Work Phone: [facility] [place] Comment on above: Population Health Na vigation Outreach ([employer] [place] ) Start: 12-21-2024 End: 12-21-2024 Telephone encounter Oscar Brizuela MD Work Phone: [facility] Internal [facility] ([facility]) Comment on above: Patient Update Start: 12-08-2024 End: 12-08-2024 ambulatory OSCAR BRIZUELA [facility] Start: 12-08-2024 End: 12-08-2024 Patient encounter procedure Issac Xiao MD Work Phone: [facility] Ear, Nose, and Throat (ENT) Comment on above: Lipoma of neck; Nontoxic multinodular goiter Start: 12-05-2024 End: 12-05-2024 Emergency department patient visit NONE PHYSICIAN Facility:[facility] Start: 12-03-2024 End: 12-03-2024 Emergency department patient visit NONE PHYSICIAN Facility:[facility] Start: 11-30-2024 ambulatory HECTOR FULTON Facility: [facility] Start: 11-30-2024 End: 11-30-2024 Subsequent hospital visit by physician Hector Fulton MD Work Phone: [facility] INTERVENTIONAL RADIOLOGY Comment on above: Neck mass [R22.1] Start: 11-24-2024 End: 11-25-2024 Refill No Pcp (Historical) [facility] Internal [facility] ([facility]) Comment on above: Refill Request Start: 11-21-2024 End: 11-21-2024 ambulatory [facility] [place] Start: 11-21-2024 End: 11-21-2024 Patient encounter procedure Sandra Arita [facility] [place] Comment on above: Population Health Na vigation Outreach ([employer] Attributed Member- Needs 2024 Medicare Wellness Appointment Scheduled/) Start: 11-14-2024 End: 11-14-2024 Telephone encounter Issac Xiao MD Work Phone: [facility], [facility], [facility]at (ENT) Comment on above: needs CORE BIOPSY Start: 11-09-2024 End: 11-09-2024 Emergency department patient visit DR SERGEI DAWN DO [facility] Start: 11-09-2024 End: 11-09-2024 ambulatory OSCAR BRIZUELA Facility:[place] [facility] Start: 11-09-2024 End: 11-09-2024 Patient encounter procedure Issac Xiao MD Work Phone: [facility], [facility], [facility]at (ENT) Comment on above: Neck mass; Nontoxic multinodular goiter; Lipoma of neck Start: 11-07-2024 End: 11-07-2024 Patient encounter procedure Inder Bruce MD Work Phone: [facility] SURGERY DEPARTMENT Comment on above: Neck mass (Primary D x); Coronary artery disease involving [place] coronary artery of [place] heart without angina pectoris Start: 11-07-2024 End: 11-07-2024 ambulatory OSCAR BRIZUELA Facility:[facility] Start: 11-02-2024 End: 11-02-2024 Follow-up encounter Oscar Brizuela MD Work Phone: [facility] [place] Comment on above: Uncontrolled type 2 diabetes mellitus with hyperglycemia (HCC); Primary hypertension; Coronary artery disease involving [place] coronary artery of [place] heart without angina pectoris; BMI 40.0-44.9, adult (HCC) Start: 11-01-2024 End: 11-01-2024 [facility] Start: 11-01-2024 End: 11-01-2024 [facility] Start: 11-01-2024 End: 11-01-2024 Subsequent hospital visit by physician Sejal [facility] (I-Stat) Work Phone: [facility] Comment on above: Neck mass [R22.1] Start: 10-27-2024 End: 10-27-2024 Patient encounter procedure Oscar Brizuela MD Work Phone: [facility] [place] Comment on above: Encounter for medica l examination to establish care (Primary Dx); Primary hypertension; Mixed hyperlipidemia; Type 2 diabetes mellitus with other specified complication, 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 (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); Coronary artery disease involving [place] coronary artery of pon[place] [place] heart without angina pectoris; S/P coronary artery stent placement; Chronic HFrEF (heart failure with reduced ejection fraction) (HCC); ELBERT (obstructive sleep apnea); Non-compliant patient; Hypothyroidism, unspecified type; Tobacco abuse Start: 10-27-2024 End: 10-27-2024 Patient encounter status Oscar Brizuela MD Work Phone: [facility] Start: 10-27-2024 End: 10-27-2024 ambulatory OSCAR BRIZUELA Facility:[facility] Start: 10-27-2024 Encounter for genera l adult medical examination without abnormal findings OSCAR BRIZUELA [facility] Start: 10-18-2024 End: 10-18-2024 Telephone encounter Oral Abbasi DO Work Phone: [facility] ([facility]) Comment on above: Referral Request (Ca rdiology ) Referral Information (Cardiology) Start: 10-18-2024 End: 10-18-2024 ambulatory SELF Facility:[facility] Start: 10-18-2024 End: 10-18-2024 Patient encounter procedure Oral Abbasi DO Work Phone: [facility] ([facility]) Comment on above: Hypertension, unspec ified type (Primary Dx); Chronic HFrEF (heart failure with reduced ejection fraction) (HCC); Cough, unspecified type; Thrush (oral) Neck mass (Primary D x); Coronary artery disease involving [place] coronary artery of [place] heart without angina pectoris; S/P coronary artery stent placement; Primary hypertension; Class 3 severe obesity due to excess calories with serious comorbidity and body mass index (BMI) of 45.0 to 49.9 in adult (HCC) Start: 10-18-2024 End: 10-18-2024 ambulatory DUNCAN CRAVEN Facility:[facility] Start: 10-13-2024 End: 10-18-2024 Telephone encounter Yuliet Fong DO Work Phone: [facility] Comment on above: Patient Update (Faxe d Diagnosis verification letter) Start: 10-12-2024 End: 10-12-2024 ambulatory Sandra Arita Line O Scribe Operator Start: 10-12-2024 End: 10-12-2024 Home visit Sandra Arita Line O Scribe Operator Comment on above: Population Health Na vigation Outreach ([employer] Attributed Member- Chart Review/) Start: 10-12-2024 End: 10-12-2024 Telephone encounter Yuliet Fong DO Work Phone: [facility] Comment on above: Patient Update (Need release of Records form completed) Start: 10-11-2024 End: 10-14-2024 Refill Yuliet Fong DO Work Phone: [facility] Comment on above: Refill Request Referral Request Start: 10-07-2024 End: 10-07-2024 Telephone encounter Yuliet Fong DO Work Phone: [facility] Comment on above: Patient Update (Care star requesting information) Start: 10-04-2024 End: 10-04-2024 Telephone encounter Yuliet Fong DO Work Phone: [facility] Comment on above: No Show (No show 1st ) Start: 09-05-2024 End: 09-05-2024 Refill Yuliet Fong DO Work Phone: [facility] Comment on above: Refill Request Start: 08-31-2024 End: 08-31-2024 Emergency department patient visit Dr. Terry Gould MD -Emergency Department Work Phone: Start: 08-08-2024 End: 08-08-2024 Refill Monica Godoy MD Work Phone: [facility] ([facility]) Comment on above: Refill Request Start: 07-25-2024 End: 08-02-2024 Refill Gavin Betancur DO Work Phone: [facility] ([facility]) Comment on above: Refill Request Medication Problem ( Insulin froze ) Start: 07-21-2024 End: 07-25-2024 Telephone encounter Gavin Betancur DO Work Phone: [facility] ([facility]) Comment on above: Returning Patient's Call Start: 07-14-2024 End: 07-14-2024 ambulatory Denise Coronado RN Work Phone: [employer]ribe [employer] Start: 07-14-2024 End: 07-14-2024 Home visit Denise Coronado RN Work Phone: Line [employer] Scribe Operator Comment on above: Transition Of Care ( TCM follow up call ) Start: 07-07-2024 End: 07-16-2024 Refill Bhanu Edmondson APRN.ELEMENTARY SUPERVISOR Work Phone: [facility] ([facility]) Comment on above: Refill Request Refill Request (rosu vastatin) Refill Request (Trul icity/) Refill Request (mult iple) Start: 06-07-2024 End: 06-07-2024 ambulatory Denise Coronado RN Work Phone: Line O Scribe Operator Start: 06-07-2024 End: 06-07-2024 Home visit Denise Coronado RN Work Phone: Line [employer] Scribe Operator Comment on above: Transition Of Care ( TCM Follow up call ) Start: 06-06-2024 End: 06-06-2024 Telephone encounter Yousuf Ponce MD Work Phone: [facility] Cardiology [place] Comment on above: Results Start: 06-03-2024 End: 06-03-2024 Telephone encounter Boo Kiran APRN.ELEMENTARY SUPERVISOR Work Phone: [facility] HEART FAILURE [facility] Comment on above: Results Start: 06-02-2024 End: 06-02-2024 ambulatory SHOLA-ALI LISSAFIAN Facility:[facility] Start: 05-27-2024 End: 05-27-2024 ambulatory SHOLA-ALI LOTFIAN Facility:[facility] Start: 05-25-2024 End: 05-25-2024 ambulatory Denise Coronado RN Work Phone: AG Line O Scribe Operator Start: 05-25-2024 End: 05-25-2024 Home visit Denise Coronado RN Work Phone: Line [employer] Scribe Operator Comment on above: Transition Of Care ( TCM Follow up call ) Start: 05-16-2024 End: 05-16-2024 Telephone encounter Josette Mcgee RN [facility] Comment on above: Patient Update Start: 05-13-2024 End: 05-13-2024 Telephone encounter Josette Mcgee RN [facility] Comment on above: Patient Update Start: 05-12-2024 End: 05-12-2024 Telephone encounter Sanjay Martin [facility] CARDIOPULMONARY REHAB Comment on above: Cardiac Rehab (Pt pr [facility]) Start: 05-11-2024 End: 05-11-2024 Nursing evaluation of patient and report Nurse Card Chf 1 [facility] Comment on above: Arrived Start: 05-11-2024 End: 05-11-2024 ambulatory DUNCAN CRAVEN Facility:[facility] Start: 05-10-2024 End: 05-10-2024 ambulatory Denise Coronado RN Work Phone: [employer] Line O Scribe Operator Start: 05-10-2024 End: 05-10-2024 Telephone follow-up Denise Coronado RN Work Phone: Line O Scribe Operator Comment on above: Transition Of Care ( TCM follow up call ) Weekly phone contact (Recurring) for Transitional Care Management Start: 05-03-2024 ambulatory Denise Coronado RN Work Phone: [facility] Line O Scribe Operator Start: 05-03-2024 Telephone follow-up Denise benton RN Work Phone: Line O Scribe Operator Comment on above: Transition Of Care ( TCM follow up call ) Weekly phone contact (Recurring) for Transitional Care Management Start: 04-29-2024 Telephone encounter Boo maddox APRN.CNP Work Phone: [facility] Comment on above: 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 Worker 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 Unit Operator - O ther; Medication Problem Start: 04-27-2024 End: 04-27-2024 Patient encounter procedure Boo Rodríguezkeshavjosephneva CULTURAL CENTRE MANAGER.ELEMENTARY SUPERVISOR Work Phone: [facility] HEART FAILURE [facility] Comment on above: Chronic HFrEF (heart failure with reduced ejection fraction) (HCC) (Primary Dx) Start: 04-27-2024 End: 04-27-2024 ambulatory YOUSUF KEYSG Facility:[facility] Start: 04-26-2024 ambulatory Denise Coronado RN Work Phone: [facility] [employer] Scribe Operator Start: 04-26-2024 Telephone follow-up Denise benton RN Work Phone: Line O Scribe Operator Comment on above: Transition Of Care ( TCM follow up call) Weekly phone contact (Recurring) for Transitional Care Management Start: 04-19-2024 End: 04-19-2024 ambulatory Homa Perdue RN AG Line O Scribe Operator Start: 04-19-2024 Home visit Homa Perdue RN [facility] Comment on above: Initial phone contac t for Transitional Care Management Start: 04-19-2024 End: 04-19-2024 Patient encounter procedure Antonia Case MD Work Phone: [facility] ([facility]) Comment on above: Chronic systolic CHF (congestive heart failure) (HCC); Typical atrial flutter (HCC) Start: 04-19-2024 End: 04-19-2024 Telemedicine consultation with patient Antonia Case MD Work Phone: [facility] ([facility]) Start: 04-18-2024 ambulatory Logan Sonnh alter [facility] Start: 04-18-2024 Telephone encounter Radha Montoya [facility] HEART FAILURE [facility] Comment on above: Orders (AG HFC order contact/ltr) Refill Request Transition Of Care ( TCM Pharmacy-Hospital discharge 04/15/24/) Start: 04-15-2024 Telephone encounter Bhanu Edmondson APRN.ELEMENTARY SUPERVISOR Work Phone: [facility] Cardiology [place] Comment on above: Appointment (/) Start: 04-14-2024 End: 05-18-2024 Telephone encounter Gavin Betancur DO Work Phone: [facility] ([facility]) Start: 04-13-2024 End: 04-15-2024 Evaluation and management of inpatient SHOLA-ALI LOTFIAN Facility:[facility] Start: 04-13-2024 Telephone encounter Josette Mcgee RN [facility] Comment on above: Appointment Start: 04-12-2024 Telephone encounter Radha ZALDIVAR [facility] Comment on above: Orders (AG HFC refer ral contact/appt) Results Start: 04-12-2024 ambulatory SHOLA-ALI LOTFIAN Faci lity:[facility] Start: 04-12-2024 End: 04-12-2024 Subsequent hospital visit by physician Echo Lab [facility] CARDIAC TESTING Comment on above: Hx of acute myocardi al infarction [I25.2] Start: 04-11-2024 End: 04-11-2024 ambulatory SHOLA-ALI LOTFIAN Facility:[facility] Start: 04-11-2024 End: 04-11-2024 Patient encounter procedure Gavin Betancur DO Work Phone: [facility] ([facility]) Comment on above: Bilateral lower extr emity edema (Primary Dx); Coronary artery disease involving [place] coronary artery of [place] heart without angina pectoris; Primary hypertension; Glossitis; Mood disorder (HCC) Start: 04-11-2024 End: 04-11-2024 ambulatory GAVIN BETANCUR Facility:[facility] Start: 03-29-2024 End: 03-29-2024 Emergency department patient visit KYLIE DURANT DO [facility] Start: 03-28-2024 End: 03-28-2024 Patient encounter procedure Barbie Wellington DO Work Phone: [facility] Comment on above: Contusion of left el bow, initial encounter (Primary Dx) Start: 03-28-2024 End: 03-28-2024 ambulatory BARBIE WELLINGTON Facility:[facility] Start: 03-16-2024 End: 03-16-2024 ambulatory DUNCAN CRAVEN Facility:[facility] Start: 02-19-2024 Telephone encounter Vancleavenoah vaughan DO Work Phone: [facility] ([facility]) Comment on above: Forms (Disability ) Start: 02-03-2024 End: 02-03-2024 Patient encounter procedure Gavin Betancur DO Work Phone: [facility] ([facility]) Comment on above: Uncontrolled type 2 diabetes mellitus with hyperglycemia (HCC) (Primary Dx); Mild intermittent asthma, unspecified whether complicated; Primary hypertension; Coronary artery disease involving [place] coronary artery of [place] heart without angina pectoris; BMI 40.0-44.9, adult (HCC); Tobacco abuse; Seasonal allergies; Microscopic hematuria Start: 02-03-2024 End: 02-03-2024 ambulatory DUNCAN CRAVEN Facility:[facility] Start: 02-03-2024 End: 02-03-2024 Patient encounter procedure Yuliet Alexanderenzo DO Work Phone: [place] [facility] Comment on above: Mood disorder (HCC) (Primary Dx); Insomnia, unspecified type; Anxiety; Cocaine use disorder in remission Start: 12-31-2023 Refill Gavin evans DO Work Phone: [facility] ([facility]) Comment on above: Refill Request (mult iple) Start: 12-27-2023 Refill Gavin evans DO Work Phone: [facility] ([facility]) Comment on above: Refill Request (Albu terol /trulicity) Refill Request (Insu duncan needles) Refill Request (need les) Start: 11-28-2023 End: 11-28-2023 Emergency department patient visit INDER PRAJAPATI MD [facility] Start: 11-19-2023 Refill Duncan tee MD Work Phone: [facility] [place] ([facility]) Comment on above: Refill Request (trul icity) Start: 11-12-2023 ambulatory Nidia Valle MA [facility] Start: 11-12-2023 Patient encounter procedure Nidia Valle MA [facility] [place] Comment on above: Population Health Na vigation Outreach ([facility] Annual Wellness Visit /) Start: 11-09-2023 End: 11-09-2023 Subsequent hospital visit by physician [facility] Work Phone: Radiology Comment on above: Posterior auricular lymphadenopathy [R59.0] Start: 11-04-2023 Telephone encounter Yuliet Fong DO Work Phone: [place] [facility] Start: 11-02-2023 End: 11-02-2023 [facility] Yuliet Fong DO Work Phone: [place] [facility] Comment on above: Mood disorder (HCC) (Primary Dx); Anxiety; Insomnia, unspecified type; Cocaine use disorder in remission Start: 10-23-2023 End: 10-23-2023 Patient encounter procedure Anamaria Dangelo OD Work Phone: [facility] Comment on above: Type 2 diabetes macie itus without retinopathy (HCC) (Primary Dx); Cataract, nuclear sclerotic, both eyes; Hyperopia of both eyes; Regular astigmatism of both eyes; Presbyopia of both eyes Start: 09-10-2023 Telephone encounter Duncan Craven MD Work Phone: [facility] ([facility]) Comment on above: Referral Information (Multiple Consults) Start: 09-10-2023 End: 09-10-2023 Office outpatient visit 25 minutes Duncan Craven MD Work Phone: [facility] ([facility]) Comment on above: Uncontrolled type 2 diabetes mellitus with hyperglycemia (HCC) (Primary Dx); Encounter for screening for lung cancer; Schizoaffective disorder, bipolar type (HCC); Cocaine dependence in remission (HCC); Bipolar 1 disorder (HCC); Mild intermittent asthma, unspecified whether complicated; Primary hypertension; Hx of acute myocardial infarction; Morbid obesity (HCC); Osteoarthritis of both knees, unspecified osteoarthritis type; Hypothyroidism; Primary insomnia Start: 09-04-2023 End: 09-04-2023 Emergency department patient visit [facility] Work Phone: Start: 09-03-2023 ambulatory [facility] Start: 09-03-2023 Patient encounter procedure Kym Medina RN [facility] Start: 08-31-2023 End: 08-31-2023 Patient encounter procedure Arnulfo Jernigan PA-C Work Phone: [facility] Comment on above: Urinary frequency (P rimary Dx); Hyperglycemia; Sinobronchitis Start: 08-11-2023 Refill Gavin evans DO Work Phone: [facility] ([facility]) Comment on above: Refill Request (prov entil HFA) Start: 08-04-2023 End: 08-04-2023 Subsequent hospital visit by physician Echo Lab [facility] CARDIAC TESTING Comment on above: Canceled (Pt cx: Taco ointment Conflict) Start: 07-29-2023 Telephone encounter Gavin vaughan DO Work Phone: [facility] ([facility]) Comment on above: F/U 6 months (2nd At tempt) Start: 07-29-2023 End: 07-29-2023 Subsequent hospital visit by physician Card Lab [facility] CARDIAC TESTING Comment on above: Hx of acute myocardi al infarction [I25.2] Start: 07-07-2023 End: 07-07-2023 Patient encounter procedure Gavin Betancur DO Work Phone: [facility] ([facility]) Comment on above: Hypothyroidism, unsp ecified type (Primary Dx); Primary insomnia; Uncontrolled type 2 diabetes mellitus with hyperglycemia (HCC); Bipolar 1 disorder (HCC); Primary hypertension; Osteoarthritis of both knees, unspecified osteoarthritis type Dyspnea on exertion (Primary Dx); Chronic cough; Tobacco abuse; Sleep-disordered breathing Start: 07-03-2023 Telephone encounter Talita cavazos MD Work Phone: [facility] Comment on above: Appointment (NO SHOW ) Start: 06-30-2023 End: 06-30-2023 Refill Yousuf Ponce MD Work Phone: [facility] Cardiology [place] Comment on above: Refill Request Skin infection (Prim flaco Dx); Chronic cough Start: 06-26-2023 End: 06-26-2023 Patient encounter procedure Yousuf Ponce MD Work Phone: [facility] Cardiology [place] Comment on above: Morbid obesity (HCC) (Primary Dx); Hx of acute myocardial infarction; ELBERT (obstructive sleep apnea); Coronary artery disease involving [place] coronary artery of [place] heart without angina pectoris; Primary hypertension; Hyperlipidemia, unspecified hyperlipidemia type; BRASWELL (dyspnea on exertion); Tobacco abuse Start: 06-18-2023 End: 06-18-2023 Patient encounter procedure Alice Arambula DO Work Phone: [facility] Comment on above: Impingement syndrome of left shoulder (Primary Dx) Start: 06-12-2023 End: 06-12-2023 Patient encounter procedure Talita Ross MD Work Phone: [facility] Comment on above: Post-operative state (Primary Dx); Dupuytren's disease of palm of left hand Start: 06-03-2023 Telephone encounter Gavin vaughan DO Work Phone: [facility] Internal Medicine [facility] ([facility]) Comment on above: Patient Question Patient Update Start: 05-12-2023 Telephone encounter Talita cavazos MD Work Phone: [facility] Comment on above: Internal Referrals/r esources ([facility] clinic referral) Appointment Start: 05-08-2023 End: 05-08-2023 Patient encounter procedure Talita Ross MD Work Phone: [facility] Comment on above: Dupuytren's disease of palm of left hand (Primary Dx); Cough in adult patient; Volar retinacular ganglion Start: 04-27-2023 End: 04-27-2023 Patient encounter procedure Gavin Froylanmichael DO Work Phone: [facility] ([facility]) Comment on above: Uncontrolled type 2 diabetes mellitus with hyperglycemia (HCC) (Primary Dx); Mild intermittent asthma, unspecified whether complicated; Hypothyroidism, unspecified type Start: 04-23-2023 Telephone encounter Nurse Ha Carballo [facility] Work Phone: [facility] Diabetes Education [place] Comment on above: Appointment (LVM to please call scheduling for the Diabetes referral received from provider. Scheduling and office number provided./) Start: 04-07-2023 Telephone encounter Gavinnoah vaughan DO Work Phone: [facility] ([facility]) Comment on above: Results; Appointment ; Orders Start: 03-31-2023 Telephone encounter No [facility] ([place] Comment on above: Appointment Start: 03-27-2023 Telephone encounter No [facility] ([place] Comment on above: Appointment Start: 03-25-2023 Telephone encounter Gavin Scott galomichael DO Work Phone: [facility] ([facility]) Comment on above: Referral Information (Consult to psychiatry) Referral Information (Consult to orthopaedics) Referral Information (Consult to cardiology) Start: 03-25-2023 End: 03-25-2023 Patient encounter procedure Gavin Pipe MARIE Work Phone: [facility] ([facility]) Comment on above: Encounter to [facility] (Primary Dx); Bipolar 1 disorder (HCC); Special screening examination for viral disease; Screening for HIV (human immunodeficiency virus); Screening for prostate cancer; Screen for STD (sexually transmitted disease); Diabetes mellitus type 2 in obese (HCC); Morbid obesity (HCC); Hx of acute myocardial infarction; Trigger finger of left hand, unspecified finger; Primary insomnia; Gastroesophageal reflux disease without esophagitis Procedures Date Procedure Procedure Detail Performing Clinician Start: 02-22-2025 Arthrocentesis aspir&/inj small jt/bursa w/o Talita Ross MD Work Phone: Start: 01-16-2025 Basic metabolic panel calcium total Praful Bahena MD Work Phone: Start: 01-16-2025 Glucose quantitative blood xcpt reagent strip Praful Bahena MD Work Phone: Start: 01-16-2025 Glucose quantitative blood xcpt reagent strip Praful Bahena MD Work Phone: Start: 01-16-2025 Glucose quantitative blood xcpt reagent strip Praful Bahena MD Work Phone: Start: 01-16-2025 Glucose quantitative blood xcpt reagent strip Praful Bahena MD Work Phone: Start: 01-16-2025 Basic metabolic panel calcium total Praful Bahena MD Work Phone: Start: 01-15-2025 Glucose quantitative blood xcpt reagent strip Praful Bahena MD Work Phone: Start: 01-15-2025 Glucose quantitative blood xcpt reagent strip Praful Bahena MD Work Phone: Start: 01-15-2025 Glucose quantitative blood xcpt reagent strip Praful Bahena MD Work Phone: Start: 01-15-2025 Glucose quantitative blood xcpt reagent strip Praful Bahena MD Work Phone: Start: 01-15-2025 Thyrotropin [Units/volume] in Serum or Plasma Hrary Carey PA-C Work Phone: Start: 01-15-2025 Basic metabolic panel calcium total Praful Bahena MD Work Phone: Start: 01-14-2025 Glucose quantitative blood xcpt reagent strip Praful Bahena MD Work Phone: Start: 01-14-2025 TTE w or wo Susy hollis MD Work Phone: Start: 01-14-2025 Glucose quantitative blood xcpt reagent strip Praful Bahena MD Work Phone: Start: 01-14-2025 Glucose quantitative blood xcpt reagent strip Praful Bahena MD Work Phone: Start: 01-14-2025 Dup-scan xtr veins complete bilateral study Praful Bahena MD Work Phone: Start: 01-14-2025 Glucose quantitative blood xcpt reagent strip Praful Bahena MD Work Phone: Start: 01-14-2025 Basic metabolic panel calcium total Luh Wells MD Work Phone: Start: 01-14-2025 End: 01-14-2025 Assay of troponin quantitative Taqueria Taylor MD Work Phone: Start: 01-13-2025 Assay of troponin quantitative Taqueria Taylor MD Work Phone: Start: 01-13-2025 Radiologic exam chest single view Taqueria Taylor MD Work Phone: Start: 01-13-2025 SARS-COV-2, FLU A/B, AND RSV COMBO Taqueria Taylor MD Work Phone: Start: 01-13-2025 Comprehensive metabolic panel Taqueria Taylor MD Work Phone: Start: 01-13-2025 Ecg routine ecg w/least 12 lds i&r only Harry CAMP-C Work Phone: Start: 12-23-2024 CT of head without contrast Dr. Terry Gould MD Work Phone: Start: 11-30-2024 Biopsy muscle percutaneous needle [facility] Provider Start: 11-01-2024 Ct soft tissue neck w/contrast material Inder Bruce MD Work Phone: Start: 08-31-2024 SARS-CoV-2, Influenza & RSV (PCR) Dr. Terry Gould MD Work Phone: Start: 08-31-2024 X-ray of chest, PA and lateral views Dr. Terry Gould MD Work Phone: Start: 04-12-2024 Echo tthrc r-t 2d w/wom-mode compl spec&colr d Yousuf Ponce MD Work Phone: Start: 03-28-2024 Radex elbow complete minimum 3 views Barbie Wellington DO Work Phone: Start: 02-03-2024 Hemoglobin A1c/Hemoglobin.total in Blood Vancleave Sprcloverel DO Work Phone: Start: 09-10-2023 Hemoglobin A1c/Hemoglobin.total in Blood Duncan Craven MD Work Phone: Start: 08-31-2023 Gluc bld gluc mntr dev cleared fda spec home use Arnulfo CAMPBitbarBiju Work Phone: Start: 08-31-2023 Urnls dip stick/tablet rgnt auto w/o microscopy Arnulfo MCCARTHYC Work Phone: Start: 07-29-2023 Myocardial spect multiple studies Yousuf Ponce MD Work Phone: Start: 07-14-2023 Radex shoulder complete minimum 2 views Alice Guzmanon DO Work Phone: Start: 06-26-2023 Ecg routine ecg w/least 12 lds w/i&r Yousuf Ponce MD Work Phone: Start: 05-08-2023 Injection 1 tendon sheath/ligament aponeurosis Talita Ross MD Work Phone: Start: 11-17-2016 History of placement of stent in anterior descending branch of left coronary artery Status post insertion of drug-eluting stent into left anterior descending artery for coronary artery disease Gavin Sprandel DO Work Phone: Start: 09-04-2014 History of placement of stent for coronary artery disease S/P coronary artery stent placement Vancleave Sprandel DO Work Phone: Start: 04-12-2013 Colonoscopy Gavin Sprandel DO Work Phone: History of placement of stent for coronary artery disease S/P coronary artery stent placement Inder Bruce MD Work Phone: History of placement of stent for coronary artery disease S/P coronary artery stent placement Oscar Brizuela MD Work Phone: Plan of Treatment Date Care Activity Detail Author Start: 03-25-2028 PROSTATE CANCER SCREENING DISCUSSION PROSTATE CANCER SCREENING DISCUSSION [facility] Start: 03-25-2028 Prostate specific antigen measurement Prostate Cancer Screening Discussion [facility] Start: 03-25-2026 DIABETES SCREEN DIABETES SCREEN [facility] Start: 01-19-2026 Annual PCP Team Chronic Disease Visit Annual PCP Team Chronic Disease Visit [facility] Start: 01-16-2026 Creatinine measurement Creatinine Level [facility] Start: 01-16-2026 Diabetes: Estimated Glomerular Filtration Rate for Kidney Health Diabetes: Estimated Glomerular Filtration Rate for Kidney Health [facility] Start: 01-16-2026 Potassium measurement Potassium Level [facility] Start: 01-15-2026 Thyroid stimulating hormone measurement TSH Level [facility] Start: 01-14-2026 Echocardiography Echocardiogram [facility] Start: 01-13-2026 Hemoglobin A1c measurement Diabetes: Hemoglobin A1C [facility] Start: 12-08-2025 BP Controlled (<130/80) BP Controlled (<130/80) [facility] Start: 10-27-2025 Annual PCP Team Chronic Disease Visit Annual PCP Team Chronic Disease Visit [facility] Start: 10-27-2025 Covid-19 Vaccine ( season) Covid-19 Vaccine ( season) [facility] Comment on above: Postponed from 05/22/2024 (Declined at t his time) Start: 10-27-2025 Pneumococcal Vaccine: 50+ (1 of 2 - PCV) Pneumococcal Vaccine: 50+ (1 of 2 - PCV) [facility] Comment on above: Postponed from 1982 (Declined at t his time) Start: 10-27-2025 Screening for malignant neoplasm of lung Lung Cancer Screening [facility] Comment on above: Postponed from 2013 (Declined at t his time) Start: 10-18-2025 Annual PCP Team Chronic Disease Visit Annual PCP Team Chronic Disease Visit [facility] Start: 10-18-2025 Hepatitis B surface antibody level LDL Cholesterol [facility] Start: 07-15-2025 Hemoglobin A1c measurement HbA1C [facility] Start: 06-02-2025 Diabetes: Urine Albumin-Creatinine Ratio for Kidney Health Diabetes: Urine Albumin-Creatinine Ratio for Kidney Health [facility] Start: 06-02-2025 Hepatitis B screening Urine Albumin:Creatinine Ratio [facility] Start: 05-22-2025 Influenza vaccination Influenza Vaccine (Season Ended) [facility] Start: 05-11-2025 BP Controlled (<130/80) BP Controlled (<130/80) [facility] Start: 05-01-2025 Hemoglobin A1c measurement HbA1C [facility] Start: 04-26-2025 End: 04-26-2025 Patient encounter procedure 04/26/2025 9:00 AM EDT Office Visit [facility] ([facility]) [address] [facility] [address] [place], [place] [phone] Nikolai Nazario DO 1 [facility] [address] [place], [place] [phone] Est Care [facility] ([facility]) Comment on above: Est Care Start: 04-19-2025 Annual PCP Team Chronic Disease Visit Annual PCP Team Chronic Disease Visit [facility] Start: 04-11-2025 End: 04-11-2025 Patient encounter procedure 04/11/2025 3:20 PM EDT Office Visit [facility] Cardiology [place] [address] [place] [address] Natali Alberts MD [address] [place], [place] [phone] chronic heart failure with reduced ejection fraction [facility] [place] Comment on above: chronic heart failure with reduced eject ion fraction Start: 04-11-2025 Annual PCP Team Chronic Disease Visit Annual PCP Team Chronic Disease Visit [facility] Start: 04-04-2025 End: 04-04-2025 Nursing evaluation of patient and report 04/04/2025 9:00 AM EDT Nurse Visit [facility] ([facility]) [address] [facility] [address] [place], [place] [phone] Imca, Pharm D Clinic 1 [facility] [address] [place] [address] New Pt [facility] ([facility]) Comment on above: New Pt Start: 03-20-2025 Influenza vaccination [facility] Comment on above: Postponed from 05/22/2024 (Declined at t his time) Start: 03-16-2025 Hepatitis B screening Urine Albumin:Creatinine Ratio [facility] Start: 02-22-2025 End: 02-22-2025 Patient encounter procedure 02/22/2025 10:30 AM EDT Office Visit [facility] Orthopedics [facility] [address] [place], [place] [phone] Talita Ross MD [address] [facility] [address] [place] [address] broken right thumb from falling out of bed. [facility] Orthopedics Comment on above: broken right thumb from falling out of b ed. Start: 02-10-2025 End: 02-10-2025 Patient encounter procedure 02/10/2025 10:00 AM EDT Office Visit Orthopaedics [address] [phone] Blossom Bagley PA-C [address] [place] [address] broken wrist bone [facility] Comment on above: broken wrist bone Start: 02-07-2025 Covid-19 Vaccine ( season) Covid-19 Vaccine ( season) [facility] Comment on above: Postponed from 05/22/2023 (Declined at t his time) Start: 02-07-2025 Pneumococcal vaccination Pneumococcal Vaccine (1 of 2 - PCV) [facility] Comment on above: Postponed from 1969 (Declined at t his time) Start: 02-07-2025 RSV Vaccine (1 - 1-dose 60+ series) RSV Vaccine (1 - 1-dose 60+ series) [facility] Comment on above: Postponed from 2023 (Declined at t his time) Start: 02-07-2025 RSV Vaccine (1 - Risk 60-74 years 1-dose series) RSV Vaccine (1 - Risk 60-74 years 1-dose series) [facility] Comment on above: Postponed from 2023 (Declined at t his time) Start: 02-07-2025 Shingrix Vaccine (1 of 2) Shingrix Vaccine (1 of 2) [facility] Comment on above: Postponed from 2013 (Declined at t his time) Start: 02-07-2025 Urine microalbumin profile DTaP,Tdap,Td Vaccine (1 - Tdap) [facility] Comment on above: Postponed from 1982 (Declined at t his time) Start: 02-02-2025 Annual PCP Team Chronic Disease Visit Annual PCP Team Chronic Disease Visit [facility] Start: 02-02-2025 BP Controlled (<130/80) BP Controlled (<130/80) [facility] Start: 01-30-2025 End: 05-01-2025 Hemoglobin A1c in Blood HEMOGLOBIN A1C Lab Routine Uncontrolled type 2 diabetes mellitus with hyperglycemia (HCC) Expected: 01/30/2025, Expires: 05/01/2025 [facility] Work Phone: Comment on above: Expected: 01/30/2025, Expires: Start: 01-30-2025 End: 01-30-2025 Patient encounter procedure 01/30/2025 10:00 AM EDT Office Visit [facility] [address] [place] [id number] Sabrina Kam PA-C [address] [facility] [address] [place] [address] [facility] Start: 01-27-2025 End: 01-27-2025 Follow-up encounter 01/27/2025 8:30 AM EDT [facility] 1 [place] [address] Yuliet Fong DO 1 [place] [address] follow up - Hospital discharge [place] [facility] Comment on above: follow up - Hospital discharge Start: 01-24-2025 End: 01-24-2025 Nursing evaluation of patient and report 01/24/2025 9:00 AM EDT Nurse Visit Endocrinology [address] [place] [address] Natali Weaver, RN [address] [address] Type 2 diabetes mellitus with diabetic microalbuminuria, with long-term current use of insulin (HCC) [E11.29, R80.9, Z79.4] Endocrinology Comment on above: Type 2 diabetes mellitus with diabetic m icroalbuminuria, with long-term current use of insulin (HCC) [E11.29, R80.9, Z79.4] Start: 01-19-2025 End: 04-20-2025 CBC W Auto Differential panel - Blood COMPLETE BLOOD COUNT AND DIFFERENTIAL Lab Routine Chronic HFrEF (heart failure with reduced ejection fraction) ([facility]) Expected: 01/19/2025, Expires: 04/20/2025 [facility] Comment on above: Expected: 01/19/2025, Expires: Start: 01-19-2025 End: 04-20-2025 Comprehensive metabolic 2000 panel - Serum or Plasma COMPREHENSIVE METABOLIC PANEL Lab Routine Chronic HFrEF (heart failure with reduced ejection fraction) ([facility]) Expected: 01/19/2025, Expires: 04/20/2025 [facility] Comment on above: Expected: 01/19/2025, Expires: Start: 01-19-2025 End: 04-20-2025 LIPID PANEL, NONFASTING LIPID PANEL, NONFASTING Lab Routine Hypercholesteremia Expected: 01/19/2025, Expires: 04/20/2025 [facility] Comment on above: Expected: 01/19/2025, Expires: Start: 01-19-2025 End: 04-20-2025 Lipoprotein a [Mass/volume] in Serum or Plasma LIPOPROTEIN (A) Lab Routine Hypercholesteremia Expected: 01/19/2025, Expires: 04/20/2025 [facility] Comment on above: Expected: 01/19/2025, Expires: Start: 01-19-2025 End: 04-20-2025 Microalbumin/Creatinine [Mass Ratio] in Urine ALBUMIN/CREATININE RATIO, URINE Lab Routine Type 2 diabetes mellitus with diabetic microalbuminuria, with long-term current use of insulin ([facility]) Expected: 01/19/2025, Expires: 04/20/2025 [facility] Comment on above: Expected: 01/19/2025, Expires: Start: 01-19-2025 End: 04-20-2025 Natriuretic peptide.B prohormone N-Terminal [Mass/volume] in Serum or Plasma NT PRO BNP Lab Routine Chronic HFrEF (heart failure with reduced ejection fraction) ([facility]) Expected: 01/19/2025, Expires: 04/20/2025 [facility] Work Phone: Comment on above: Expected: 01/19/2025, Expires: Start: 01-19-2025 End: 01-19-2025 Patient encounter procedure 01/19/2025 10:40 AM EDT Office Visit [facility] ([facility]) [address] [facility] [address] [place] [address] Nikolai Nazario DO 1 [facility] [address] [place], [place] [phone] [facility] 01/17/25 [place], heart issues; Establish care with new PCP [facility] ([facility]) Comment on above: [facility] 01/17/25 [place], heart issues; Establish care with new PCP Start: 01-10-2025 End: 01-10-2025 Patient encounter procedure 01/10/2025 1:40 PM EDT Office Visit [facility] ([facility]) [address] [facility] [address] FLOOR [place], [place] [phone] Claus Anderson DO 1 [facility] [address] [place], [place] [phone] est care // needs meds refilled // diabetes concerns // neck biopsy concerns [facility] ([facility]) Comment on above: est care // needs meds refilled // diabe michele concerns // neck biopsy concerns Start: 01-06-2025 [facility] Start: 12-23-2024 [facility] Start: 12-08-2024 End: 12-08-2024 Patient encounter procedure 12/08/2024 12:45 PM EDT Office Visit [facility] Ear, Nose, and [facility] (ENT) [address] [facility] [place] [address] Issac Xiao MD [address] [place] [address] 1 mn f/u for neck [facility]at (ENT) Comment on above: 1 mn f/u for neck Start: 11-30-2024 Hemoglobin A1c measurement HbA1C [facility] Start: 11-30-2024 End: 11-30-2024 Admission to same day surgery center 11/30/2024 8:00 AM EDT - 11/30/2024 9:00 AM EDT Surgery [facility] INTERVENT[facility]AL RADIOLOGY 1 [place] [address] [place] [address] [address] superficial neck mass [facility] Comment on above: superficial neck mass Start: 11-30-2024 End: 11-30-2024 Bx/exc lymph node needle superficial BIOPSY OR EXCISION LYMPH NODES(S) NEEDLE SUPERFICIAL Neck mass 11/30/2024 8:00 AM EDT [facility] Start: 11-30-2024 Subsequent hospital visit by physician 11/30/2024 8:00 AM EDT Hospital Encounter [facility] 1 [place] [address] [place] [address] [address] Neck mass [R22.1] [facility] Comment on above: Neck mass [R22.1] Start: 11-14-2024 End: 11-14-2024 Patient encounter procedure 11/14/2024 1:15 PM EST Office Visit [facility] SUR[facility]ERY [facility]PARTMENT 1 [facility] [address] [place] [address] Inder Bruce MD [facility] [address] [place] [phone] FOLLOW-UP AFTER CT NECK [facility] SURGERY DEPARTMENT Comment on above: FOLLOW-UP AFTER CT NECK Start: 11-09-2024 End: 11-09-2024 Patient encounter procedure [facility] SUR[facility]ERY [facility] Comment on above: FOLLOW-UP AFTER CT NECK Neck mass Start: 11-01-2024 End: 11-01-2024 Patient encounter procedure 11/01/2024 8:40 AM EST Appointment Cat Scan [address] [place], [place] [phone] Neck mass [R22.1] [facility] Comment on above: Neck mass [R22.1] Start: 10-27-2024 End: 10-27-2024 Patient encounter procedure 10/27/2024 1:40 PM EST Office Visit [facility] [address] [place], [place] [phone] Oscar Brizuela MD [address] [place] [address] est care [facility] Comment on above: est care Start: 10-23-2024 Glaucoma screening Dilated Retinal Exam [facility] Start: 10-20-2024 Annual PCP Team Chronic Disease Visit Annual PCP Team Chronic Disease Visit [facility] Start: 10-20-2024 Hepatitis B screening Urine Albumin:Creatinine Ratio [facility] Start: 10-20-2024 Hepatitis B surface antibody level LDL Cholesterol [facility] Start: 10-18-2024 End: 01-17-2025 CREATININE BLD CREATININE BLD Lab Routine Neck mass Expected: 10/18/2024, Expires: 01/17/2025 [facility] Comment on above: Expected: 10/18/2024, Expires: 5 Start: 10-11-2024 End: 01-10-2025 Lipid 1996 panel - Serum or Plasma LIPID PANEL BASIC Lab Routine Mixed hyperlipidemia Expected: 10/11/2024, Expires: 01/10/2025 [facility] Work Phone: Comment on above: Expected: 10/11/2024, Expires: 5 Start: 10-04-2024 End: 10-04-2024 Patient encounter procedure 10/04/2024 1:00 PM EST Office Visit [place] [facility] 1 [place], [place] [phone] Yuliet Fong DO 1 [place] [address] follow up [place] [facility] Comment on above: follow up Start: 09-21-2024 Medicare Advantage Annual Wellness Visit Medicare Advantage Annual Wellness Visit [facility] Start: 09-12-2024 End: 09-12-2024 Patient encounter procedure [facility] Comment on above: three month follow up with TACO after car diology visit - per CECIL Start: 09-10-2024 Annual PCP Team Chronic Disease Visit Annual PCP Team Chronic Disease Visit [facility] Start: 08-31-2024 [facility] Start: 08-31-2024 [facility] Start: 08-05-2024 Hemoglobin A1c measurement HbA1C [facility] Start: 08-02-2024 End: 08-02-2024 Patient encounter procedure [facility] Comment on above: Overdue Follow up, ricki. Overdue Follow up, qasim jang. (JOSE 06/26/2023)-jacinta Start: 07-07-2024 Annual PCP Team Chronic Disease Visit Annual PCP Team Chronic Disease Visit [facility] Start: 07-03-2024 End: 10-02-2024 Basic metabolic 2000 panel - Serum or Plasma BASIC METABOLIC PANEL Lab Routine Heart failure with reduced ejection fraction (HCC) Expected: 07/03/2024 (Approximate), Expires: 10/02/2024 [facility] Work Phone: Comment on above: Expected: 07/03/2024 (Approximate), Expi res: 10/02/2024 Start: 06-20-2024 End: 06-20-2024 Patient encounter procedure 06/20/2024 3:30 PM EDT Office Visit [facility] [address] [facility] [address] [place] [address] Bhanu Edmondson, CULTURAL CENTRE MANAGER.ELEMENTARY SUPERVISOR [address] [place], [place] [phone] 6-8 wk CHF srs [facility] Comment on above: 6-8 wk CHF [facility] Start: 06-14-2024 End: 06-14-2024 Patient encounter procedure 06/14/2024 4:00 PM EDT Office Visit [facility] ([facility]) [address] [facility] [address] FLOOR [place], [place] [phone] Jair Alberto MD 1 [facility] [address] [place], [place] [phone] Follow up, instructed to follow up with PCP regarding recent labs [facility] ([facility]) Comment on above: Follow up, instructed to follow up with PCP regarding recent labs Start: 06-13-2024 End: 06-13-2024 Patient encounter procedure 06/13/2024 11:15 AM EDT Office Visit [facility] 1 [place], [place] [phone] Boo Kiran, CULTURAL CENTRE MANAGER.ELEMENTARY SUPERVISOR 1 [place], [place] [phone] 3, Nurse Card Chf one month follow up with Trinity Kiran [facility] HEART FAILURE [facility] Comment on above: one month follow up with Trinity Kiran Start: 05-22-2024 Covid-19 Vaccine () Covid-19 Vaccine () [facility] Start: 05-22-2024 Covid-19 Vaccine ( season) Covid-19 Vaccine () [facility] Start: 05-22-2024 Influenza vaccination [facility] Start: 05-13-2024 End: 08-12-2024 Basic metabolic 2000 panel - Serum or Plasma BASIC METABOLIC PANEL Lab Routine Chronic HFrEF (heart failure with reduced ejection fraction) ([facility]) Expected: 05/13/2024, Expires: 08/12/2024 [facility] Work Phone: Comment on above: Expected: 05/13/2024, Expires: Start: 05-11-2024 End: 05-11-2024 Nursing evaluation of patient and report 05/11/2024 11:00 AM EDT Nurse Visit [facility] 1 [place], [place] [phone] 1, Nurse Card Chf 2 week f/u [facility] Comment on above: 2 week f/u Start: 05-06-2024 End: 05-06-2024 Patient encounter procedure 05/06/2024 11:00 AM EDT Office Visit [facility] 1 [place], [place] [phone] Yuliet Fong DO 1 [place], [place] [phone] follow up [facility] Comment on above: follow up Start: 04-27-2024 End: 04-27-2024 Patient encounter procedure 04/27/2024 3:45 PM EDT Office Visit [facility] 1 [place], [place] [phone] Boo Kiran APRN.ELEMENTARY SUPERVISOR 1 [place], [place] [phone] 3, Nurse Card Chf PCP referral [facility] Comment on above: PCP referral Start: 04-27-2024 ANNUAL PCP TEAM CHRONIC DISEASE VISIT ANNUAL PCP TEAM CHRONIC DISEASE VISIT [facility] Start: 04-25-2024 End: 07-25-2024 Basic metabolic 2000 panel - Serum or Plasma BASIC METABOLIC PANEL Lab Routine HFrEF (heart failure with reduced ejection fraction) (HCC) Expected: 04/25/2024, Expires: 07/25/2024 [facility] Work Phone: Comment on above: Expected: 04/25/2024, Expires: Start: 04-19-2024 End: 04-19-2024 Follow-up encounter [facility] ([facility]) Comment on above: 1 week follow-up 1 week follow-up/ TC M Start: 04-15-2024 End: 04-15-2024 Admission to same day surgery center 04/15/2024 10:00 AM EDT - 04/15/2024 11:30 AM EDT Surgery [facility] [employer]ODING [facility] 1 [place] [address] Natali Rendon MD [address] [place] [address] LEFT HEART CATH INTRAPROCEDURAL INJECT W/ LEFT VENTRICULOGRAPHY IMAGE SUPERVISION/INTERPRETATIO N [facility] Comment on above: LEFT HEART CATH INTRAPROCEDURAL INJECT W / LEFT VENTRICULOGRAPHY IMAGE SUPERVISION/INTERPRETATION Start: 04-15-2024 End: 04-15-2024 L hrt cath w/njx l ventriculography img s&i LEFT HEART CATH INTRAPROCEDURAL INJECT W/ LEFT VENTRICULOGRAPHY IMAGE SUPERVISION/INTERPRETATIO N Cardiomyopathy, unspecified type (HCC) 04/15/2024 10:00 AM EDT [facility] Start: 04-15-2024 Subsequent hospital visit by physician 04/15/2024 10:00 AM EDT Hospital Encounter [facility] 1 [place] [address] Natali Rendon MD [address] [place] [address] Cardiomyopathy, unspecified type (HCC) [I42.9] [facility] Comment on above: Cardiomyopathy, unspecified type (HCC) [ I42.9] Start: 04-14-2024 End: 04-14-2024 Patient encounter procedure 04/14/2024 7:15 AM EDT Appointment [facility] [place] [address] Bilateral lower extremity edema [R60.0] [facility] Comment on above: Bilateral lower extremity edema [R60.0] Start: 04-13-2024 End: 04-13-2024 Nursing evaluation of patient and report 04/13/2024 1:00 PM EDT Nurse Visit [facility] 1 [place] [address] 1, Nurse Card Chf TeleHealth [facility] Comment on above: TeleHealth Start: 04-12-2024 End: 07-12-2024 CBC panel - Blood by Automated count COMPLETE BLOOD COUNT Lab Routine Systolic dysfunction without heart failure Abnormal echocardiogram Expected: 04/12/2024, Expires: 07/12/2024 [facility] Work Phone: Comment on above: Expected: 04/12/2024, Expires: Start: 04-12-2024 End: 04-12-2024 Patient encounter procedure 04/12/2024 7:00 AM EDT Appointment [facility] 1 [place] [address] Bilateral lower extremity edema [R60.0]; Coronary artery disease involving [place] coronary artery of [place] heart without angina pectoris [I25.10] [facility] Comment on above: Bilateral lower extremity edema [R60.0]; Coronary artery disease involving [place] coronary artery of [place] heart without angina pectoris [I25.10] Start: 04-11-2024 End: 07-11-2024 Ferritin [Mass/volume] in Serum or Plasma FERRITIN Lab Routine Glossitis Expected: 04/11/2024, Expires: 07/11/2024 [facility] Comment on above: Expected: 04/11/2024, Expires: Start: 04-11-2024 End: 04-11-2024 Patient encounter procedure 04/11/2024 8:40 AM EDT Office Visit [facility] ([facility]) [address] [facility] [address] [place] [address] Gavin Betancur DO 1 [facility] [address] [place] [address] follow up [facility] ([facility]) Comment on above: follow up Start: 03-25-2024 ANNUAL PCP TEAM CHRONIC DISEASE VISIT ANNUAL PCP TEAM CHRONIC DISEASE VISIT [facility] Start: 03-25-2024 COLORECTAL CANCER SCREENING COLORECTAL CANCER SCREENING [facility] Comment on above: Postponed from 2008 (Declined at t his time) Start: 03-25-2024 Hemoglobin A1c measurement Diabetes: Hemoglobin A1C [facility] Start: 03-25-2024 Screening for malignant neoplasm of colon Colorectal Cancer Screening [facility] Comment on above: Postponed from 2008 (Declined at t his time) Start: 03-07-2024 End: 03-07-2024 Patient encounter procedure 03/07/2024 9:00 AM EDT Office Visit [facility] ([facility]) [address] [facility] [address] [place] [address] Gavin Betancur, 1 [facility] [address] [place] [address] neck and legs issues lump on his neck [facility] ([facility]) Comment on above: neck and legs issues lump on his neck Start: 02-03-2024 End: 05-04-2024 Microalbumin/Creatinine [Mass Ratio] in Urine ALBUMIN/CREATININE RATIO, URINE Lab Routine Uncontrolled type 2 diabetes mellitus with hyperglycemia (HCC) Expected: 02/03/2024, Expires: 05/04/2024 [facility] Comment on above: Expected: 02/03/2024, Expires: Start: 02-03-2024 End: 05-04-2024 Urinalysis complete panel - Urine URINALYSIS WITH MICROSCOPIC, REFLEX CULTURE Lab Routine Microscopic hematuria Expected: 02/03/2024, Expires: 05/04/2024 [facility] Comment on above: Expected: 02/03/2024, Expires: Start: 12-10-2023 Hemoglobin A1c measurement HbA1C [facility] Start: 10-05-2023 End: 10-05-2023 Patient encounter procedure 10/05/2023 9:00 AM EST Office Visit [facility] [address] [place] [address] Nehemiah Bonilla MD [address] [place] [address] [facility] Start: 09-21-2023 Depression Assessment Depression Assessment [facility] Start: 09-10-2023 End: 12-10-2023 ALBUMIN/CREAT RATIO RND UR ALBUMIN/CREAT RATIO RND UR Lab Routine Uncontrolled type 2 diabetes mellitus with hyperglycemia (HCC) Expected: 09/10/2023, Expires: 12/10/2023 [facility] Work Phone: Comment on above: Expected: 09/10/2023, Expires: Start: 09-10-2023 End: 12-10-2023 Basic metabolic 2000 panel - Serum or Plasma BASIC METABOLIC PNL Lab Routine Uncontrolled type 2 diabetes mellitus with hyperglycemia (HCC) Expected: 09/10/2023, Expires: 12/10/2023 [facility] Work Phone: Comment on above: Expected: 09/10/2023, Expires: 4 Start: 09-10-2023 End: 12-10-2023 CBC panel - Blood by Automated count CBC Lab Routine Uncontrolled type 2 diabetes mellitus with hyperglycemia (HCC) Primary hypertension Expected: 09/10/2023, Expires: 12/10/2023 [facility] Work Phone: Comment on above: Expected: 09/10/2023, Expires: 4 Start: 09-10-2023 End: 12-10-2023 Lipid 1996 panel - Serum or Plasma LIPID PANEL BASIC Lab Routine Uncontrolled type 2 diabetes mellitus with hyperglycemia (HCC) Expected: 09/10/2023, Expires: 12/10/2023 [facility] Work Phone: Comment on above: Expected: 09/10/2023, Expires: 4 Start: 09-10-2023 End: 12-10-2023 Thyrotropin [Units/volume] in Serum or Plasma TSH BLD Lab Routine Hypothyroidism Expected: 09/10/2023, Expires: 12/10/2023 [facility] Work Phone: Comment on above: Expected: 09/10/2023, Expires: 4 Start: 09-04-2023 [facility] Start: 08-31-2023 End: 11-30-2023 Bacteria identified in Urine by Culture [facility] Work Phone: Comment on above: Expected: 08/31/2023, Expires: 4 Start: 07-07-2023 End: 10-06-2023 Thyrotropin [Units/volume] in Serum or Plasma TSH BLD Lab Routine Hypothyroidism, unspecified type Expected: 07/07/2023, Expires: 10/06/2023 [facility] Work Phone: Comment on above: Expected: 07/07/2023, Expires: 4 Start: 06-26-2023 End: 08-26-2023 CBC panel - Blood by Automated count CBC Lab Routine Coronary artery disease involving [place] coronary artery of [place] heart without angina pectoris Primary hypertension Hyperlipidemia, unspecified hyperlipidemia type Expected: 06/26/2023, Expires: 08/26/2023 [facility] Work Phone: Comment on above: Expected: 06/26/2023, Expires: 3 Start: 06-26-2023 End: 08-26-2023 Comprehensive metabolic 2000 panel - Serum or Plasma COMP METABOLIC PANEL Lab Routine Coronary artery disease involving [place] coronary artery of [place] heart without angina pectoris Primary hypertension Hyperlipidemia, unspecified hyperlipidemia type Expected: 06/26/2023, Expires: 08/26/2023 [facility] Work Phone: Comment on above: Expected: 06/26/2023, Expires: 3 Start: 06-26-2023 End: 08-26-2023 Lipid 1996 panel - Serum or Plasma LIPID PANEL BASIC Lab Routine Coronary artery disease involving [place] coronary artery of [place] heart without angina pectoris Primary hypertension Hyperlipidemia, unspecified hyperlipidemia type Expected: 06/26/2023, Expires: 08/26/2023 [facility] Work Phone: Comment on above: Expected: 06/26/2023, Expires: 3 Start: 06-25-2023 End: 08-25-2023 Hemoglobin A1c in Blood HGB A1C Lab Routine Uncontrolled type 2 diabetes mellitus with hyperglycemia (HCC) Expected: 06/25/2023, Expires: 08/25/2023 [facility] Work Phone: Comment on above: Expected: 06/25/2023, Expires: 3 Start: 06-25-2023 Hemoglobin A1c/Hemoglobin.total in Blood HBA1C [facility] Start: 05-22-2023 Covid-19 Vaccine (2022- season) Covid-19 Vaccine ( season) [facility] Start: 05-22-2023 Influenza vaccination [facility] Start: 2023 Hepatitis B Vaccine (1 of 3 - Risk 3-dose series) Hepatitis B Vaccine (1 of 3 - Risk 3-dose series) [facility] Start: 2023 RSV Immunization aged 60 or older (1 - 1-dose 60+ series) RSV Immunization aged 60 or older (1 - 1-dose 60+ series) [facility] Start: 2023 RSV Immunization for Adults (1 - Risk 60-74 years 1-dose series) RSV Immunization for Adults (1 - Risk 60-74 years 1-dose series) [facility] Start: 2023 RSV Vaccine (1 - 1-dose 60+ series) RSV Vaccine (1 - 1-dose 60+ series) [facility] Start: 2023 RSV Vaccine (1 - Risk 60-74 years 1-dose series) RSV Vaccine (1 - Risk 60-74 years 1-dose series) [facility] Start: 04-27-2023 End: 06-27-2023 Thyrotropin [Units/volume] in Serum or Plasma TSH BLD Lab Routine Hypothyroidism, unspecified type Expected: 04/27/2023, Expires: 06/27/2023 [facility] Work Phone: Comment on above: Expected: 04/27/2023, Expires: 3 Start: 03-25-2023 End: 05-25-2023 Lipid 1996 panel - Serum or Plasma LIPID PANEL BASIC Lab Routine Encounter to establish care Expected: 03/25/2023, Expires: 05/25/2023 [facility] Work Phone: Comment on above: Expected: 03/25/2023, Expires: 3 Start: 04-12-2014 Colonoscopy COLONOSCOPY [facility] Start: 04-12-2014 Screening for malignant neoplasm of colon [facility] Start: 2013 Influenza vaccination Lung Cancer Screening [facility] Start: 2013 Screening for malignant neoplasm of lung Lung Cancer Screening [facility] Start: 2013 SHINGRIX VACCINE (1 of 2) SHINGRIX VACCINE (1 of 2) [facility] Start: 2013 Zoster Vaccines (1 of 2) Zoster Vaccines (1 of 2) [facility] Start: 2008 COLOGUARD (FIT-DNA) COLOGUARD (FIT-DNA) [facility] Start: [address] COLONOGRAPHY [facility] Start: 2008 FECAL OCCULT BLOOD FECAL OCCULT BLOOD [facility] Start: 2008 Screening for malignant neoplasm of colon [facility] Start: 2008 SIGMOIDOSCOPY SIGMOIDOSCOPY [facility] Start: 1998 LIPID SCREEN LIPID SCREEN [facility] Start: 1982 DTaP/Tdap/Td Vaccines (1 - Tdap) DTaP/Tdap/Td Vaccines (1 - Tdap) [facility] Start: 1982 Pneumococcal Vaccine: 50+ (1 of 2 - PCV) Pneumococcal Vaccine: 50+ (1 of 2 - PCV) [facility] Start: 1982 Pneumococcal Vaccine: 50+ Years (1 of 2 - PCV) Pneumococcal Vaccine: 50+ Years (1 of 2 - PCV) [facility] Start: 1982 Urine microalbumin profile [facility] Start: 1981 Anxiety Screening Anxiety Screening [facility] Start: 1981 BP Controlled (<130/80) BP Controlled (<130/80) [facility] Start: 1981 Depression Screening Depression Screening [facility] Start: 1981 Hepatitis B surface antibody level LDL CHOLESTEROL [facility] Start: 1981 Hepatitis C screening Hepatitis C Screening [facility] Start: 1981 Spirometry Spirometry [facility] Start: 1975 Depression Screening Depression Screening [facility] Start: 1973 3 comp foot exam completed DIABETIC FOOT EXAM [facility] Start: 1973 Diabetic foot examination [facility] Start: 1973 Glaucoma screening [facility] Start: 1973 Hepatitis B screening URINE ALBUMIN:CREATININE RATIO [facility] Start: 1973 Hepatitis C antibody, confirmatory test DILATED RETINAL EXAM [facility] Start: 1973 Preventive dental service Diabetes: Dental Exam [facility] Start: 1969 PNEUMOCOCCAL (1 - PCV) PNEUMOCOCCAL (1 - PCV) [facility] ic Start: 1969 Pneumococcal vaccination [facility] Start: 1969 Pneumococcal Vaccine: Pediatrics (0 to 5 Years) and At-Risk Patients (6 to 64 Years) (1 - PCV) Pneumococcal Vaccine: Pediatrics (0 to 5 Years) and At-Risk Patients (6 to 64 Years) (1 - PCV) [facility] Start: 1964 MMR Vaccines (1 of 1 - Standard series) MMR Vaccines (1 of 1 - Standard series) [facility] Start: 1963 COVID-19 VACCINE (#1) COVID-19 VACCINE (#1) [facility] Start: 1963 HIV screening HIV Screening [facility] Start: 1963 Lipid panel Lipid Panel [facility] Start: 1963 Screening for malignant neoplasm of colon [facility] Chlamydia trachomatis+Neisseria gonorrhoeae DNA [Presence] in Unspecified specimen by SUSANNAH with probe detection GONORRHEA/CHLAMYDIA NAAT Lab Routine Screen for STD (sexually transmitted disease) Ordered: 03/25/2023 [facility] Work Phone: Comment on above: Ordered: 03/25/2023 End: 11-17-2025 CT Neck W contrast IV CT NECK SOFT TISSUE W IVCON Radiology Routine Neck mass 1 Occurrences starting 10/18/2024 until 11/17/2025 [facility] Work Phone: Comment on above: 1 Occurrences starting 10/18/2024 until 11/17/2025 CYTOLOGY NON-MEDICAL BILLING CODER CYTOLOGY NON-GY N Lab Routine Neck mass 11/09/2024 12:00 PM EST [facility] Work Phone: End: 06-26-2024 Echocardiography ECHO Cardiology Routine Hx of acute myocardial infarction Coronary artery disease involving [place] coronary artery of [place] heart without angina pectoris 1 Occurrences starting 06/26/2023 until 06/26/2024 [facility] Work Phone: Comment on above: 1 Occurrences starting 06/26/2023 until 06/26/2024 End: 04-11-2025 Echocardiography ECHO Cardiology Routine Bilateral lower extremity edema Coronary artery disease involving [place] coronary artery of [place] heart without angina pectoris 1 Occurrences starting 04/11/2024 until 04/11/2025 [facility] Comment on above: 1 Occurrences starting 04/11/2024 until 04/11/2025 Guidance for biopsy of Lymph node IMAGING GUIDED BIOPSY CERVICAL LYMPH NODE Radiology Routine Neck mass Lipoma of neck Ordered: 11/14/2024 [facility] Work Phone: Comment on above: Ordered: 11/14/2024 HGBA1C B/O (AG) HGBA1C B/O (AG) Lab Routine Uncontrolled type 2 diabetes mellitus with hyperglycemia (HCC) Ordered: 02/03/2024 [facility] Work Phone: Comment on above: Ordered: 02/03/2024 End: 07-06-2024 HOME SLEEP APNEA TEST (HSAT) HOME SLEEP APNEA TEST (HSAT) Procedures Routine Sleep-disordered breathing 1 Occurrences starting 07/07/2023 until 07/06/2024 [facility] Work Phone: Comment on above: 1 Occurrences starting 07/07/2023 until 07/06/2024 End: 05-26-2024 LUNG DIFFUSION CAPACITY (DLCO) LUNG DIFFUSION CAPACITY (DLCO) PFT Routine Mild intermittent asthma, unspecified whether complicated 1 Occurrences starting 04/27/2023 until 05/26/2024 [facility] Work Phone: Comment on above: 1 Occurrences starting 04/27/2023 until 05/26/2024 End: 08-05-2024 LUNG DIFFUSION CAPACITY (DLCO) LUNG DIFFUSION CAPACITY (DLCO) PFT Routine Dyspnea on exertion Chronic cough Tobacco abuse 1 Occurrences starting 07/07/2023 until 08/05/2024 [facility] Work Phone: Comment on above: 1 Occurrences starting 07/07/2023 until 08/05/2024 End: 10-09-2024 LUNG DIFFUSION CAPACITY (DLCO) LUNG DIFFUSION CAPACITY (DLCO) PFT Routine Mild intermittent asthma, unspecified whether complicated 1 Occurrences starting 09/10/2023 until 10/09/2024 [facility] Work Phone: Comment on above: 1 Occurrences starting 09/10/2023 until 10/09/2024 End: 05-26-2024 LUNG VOLUMES LUNG VOLUMES PFT Routine Mild intermittent asthma, unspecified whether complicated 1 Occurrences starting 04/27/2023 until 05/26/2024 [facility] Work Phone: Comment on above: 1 Occurrences starting 04/27/2023 until 05/26/2024 End: 08-05-2024 LUNG VOLUMES LUNG VOLUMES PFT Routine Dyspnea on exertion Chronic cough Tobacco abuse 1 Occurrences starting 07/07/2023 until 08/05/2024 [facility] Work Phone: Comment on above: 1 Occurrences starting 07/07/2023 until 08/05/2024 End: 10-09-2024 LUNG VOLUMES LUNG VOLUMES PFT Routine Mild intermittent asthma, unspecified whether complicated 1 Occurrences starting 09/10/2023 until 10/09/2024 [facility] Work Phone: Comment on above: 1 Occurrences starting 09/10/2023 until 10/09/2024 End: 07-25-2024 NM CARDIAC PERF STRESS/PHARM NM CARDIAC PERF STRESS/PHARM Radiology Routine Hx of acute myocardial infarction Coronary artery disease involving [place] coronary artery of [place] heart without angina pectoris 1 Occurrences starting 06/26/2023 until 07/25/2024 [facility] Work Phone: Comment on above: 1 Occurrences starting 06/26/2023 until 07/25/2024 Patient Education [facility] Work Phone: Patient referral [facility] Work Phone: Physical performance test/greer w/reprt ea 15 min PHYSICAL PERFORMANCE TEST Procedures Routine Disability examination Ordered: 02/26/2024 [facility] Work Phone: Comment on above: Ordered: 02/26/2024 End: 09-09-2024 Polysomnogram POLYSOMNOGRAM (PSG) Procedures Routine Morbid obesity (HCC) 1 Occurrences starting 09/10/2023 until 09/09/2024 [facility] Work Phone: Comment on above: 1 Occurrences starting 09/10/2023 until 09/09/2024 End: 10-27-2025 Polysomnogram POLYSOMNOGRAM (PSG) Procedures Routine ELBERT (obstructive sleep apnea) 1 Occurrences starting 10/27/2024 until 10/27/2025 [facility] Work Phone: Comment on above: 1 Occurrences starting 10/27/2024 until 10/27/2025 End: 08-05-2024 Radiologic exam chest 2 views XR CHEST 2V FRONTAL/LAT Radiology Routine Dyspnea on exertion Chronic cough Tobacco abuse 1 Occurrences starting 07/07/2023 until 08/05/2024 [facility] Work Phone: Comment on above: 1 Occurrences starting 07/07/2023 until 08/05/2024 End: 10-09-2024 SPIROMETRY - BASELINE AND POST DILATOR SPIROMETRY - BASELINE AND POST DILATOR PFT Routine Mild intermittent asthma, unspecified whether complicated 1 Occurrences starting 09/10/2023 until 10/09/2024 [facility] Work Phone: Comment on above: 1 Occurrences starting 09/10/2023 until 10/09/2024 End: 05-26-2024 SPIROMETRY WITH DILATOR IF OBSTRUCTED SPIROMETRY WITH DILATOR IF OBSTRUCTED PFT Routine Mild intermittent asthma, unspecified whether complicated 1 Occurrences starting 04/27/2023 until 05/26/2024 [facility] Work Phone: Comment on above: 1 Occurrences starting 04/27/2023 until 05/26/2024 End: 08-05-2024 SPIROMETRY WITH DILATOR IF OBSTRUCTED SPIROMETRY WITH DILATOR IF OBSTRUCTED PFT Routine Dyspnea on exertion Chronic cough Tobacco abuse 1 Occurrences starting 07/07/2023 until 08/05/2024 [facility] Work Phone: Comment on above: 1 Occurrences starting 07/07/2023 until 08/05/2024 End: 11-30-2024 Tissue Pathology biopsy report [facility] Work Phone: Comment on above: ONCE for 1 Occurrences starting 12/01/19 until 11/30/2024, 1 completed URINE MICROALBUMIN B/O URINE ANDRE ROALBUMIN B/O Lab Routine Uncontrolled type 2 diabetes mellitus with hyperglycemia (HCC) 1 Occurrences starting 04/27/2023 [facility] Work Phone: Comment on above: 1 Occurrences starting 04/27/2023 US Head and neck sof t tissue US HEAD/NECK SOFT TISSUE OTHER Radiology Routine Posterior auricular lymphadenopathy 11/09/2023 9:15 AM EST [facility] Work Phone: End: 04-11-2025 US Lower extremity vein US LEG VEIN DVT UNL VAS LAB Vascular Lab Routine Bilateral lower extremity edema 1 Occurrences starting 04/11/2024 until 04/11/2025 [facility] Work Phone: Comment on above: 1 Occurrences starting 04/11/2024 until 04/11/2025 End: 02-18-2026 XR Hand - right PA and Lateral and Oblique XR HAND GENERAL 3V PA/LAT/OBL RIGHT Radiology Routine Pain of right hand 1 Occurrences starting 01/19/2025 until 02/18/2026 [facility] Comment on above: 1 Occurrences starting 01/19/2025 until 02/18/2026 XR Hand - right PA a nd Lateral and Oblique XR HAND GENERAL 3V PA/LAT/OBL RIGHT Radiology Routine Pain of right hand 02/22/2025 9:47 AM EDT [facility] Work Phone: End: 08-05-2024 XR KNEE LIMITED 2V AP/LAT LEFT XR KNEE LIMITED 2V AP/LAT LEFT Radiology Routine Osteoarthritis of both knees, unspecified osteoarthritis type 1 Occurrences starting 07/07/2023 until 08/05/2024 [facility] Work Phone: Comment on above: 1 Occurrences starting 07/07/2023 until 08/05/2024 End: 10-09-2024 XR KNEE LIMITED 2V AP/LAT LEFT XR KNEE LIMITED 2V AP/LAT LEFT Radiology Routine Osteoarthritis of both knees, unspecified osteoarthritis type 1 Occurrences starting 09/10/2023 until 10/09/2024 [facility] Work Phone: Comment on above: 1 Occurrences starting 09/10/2023 until 10/09/2024 End: 08-05-2024 XR KNEE LIMITED 2V AP/LAT RIGHT XR KNEE LIMITED 2V AP/LAT RIGHT Radiology Routine Osteoarthritis of both knees, unspecified osteoarthritis type 1 Occurrences starting 07/07/2023 until 08/05/2024 [facility] Work Phone: Comment on above: 1 Occurrences starting 07/07/2023 until 08/05/2024 End: 10-09-2024 XR KNEE LIMITED 2V AP/LAT RIGHT XR KNEE LIMITED 2V AP/LAT RIGHT Radiology Routine Osteoarthritis of both knees, unspecified osteoarthritis type 1 Occurrences starting 09/10/2023 until 10/09/2024 [facility] Work Phone: Comment on above: 1 Occurrences starting 09/10/2023 until 10/09/2024 [facility] Immunizations Immunization Date Immunization Notes Care Provider [facility] 07-20-1996 influenza nasal, unspecified formulation Gavin Betancur DO Work Phone: [facility] 07-20-1996 influenza virus vacc ine, unspecified formulation Gavin Betancur DO Work Phone: [facility] Payers Date Payer Category Payer Medicaid [id number] 2025 Unknown [id number] 2024 Medicare HMO [facility] MEDICARE Member Subscriber Plan / Payer (Effective 2024-Present) Name: Venkat Marsh Relation to Subscriber: Self Name: Venkat Marsh Payer ID: [id number] (NAIC) Type: Medicare HMO Address: [address] [id number] 2024 Private Health Insurance [id number] 2024 Medicaid [id number] 2024 Private Health Insurance [id number] 2024 Self-pay 2024 Medicare (Managed Care) [id number] 2023 Private Health Insurance [id number] 2023 Medicaid [id number] 1998 Medicare [id number] 1998 Medicare [id number] 1963 Unknown [id number] 1963 Unknown [id number] 1963 Unknown [id number] 1963 Unknown [id number] 1963 Unknown [id number] Medicare MEDICARE PART A B [id number] Unknown [id number] Unknown [id number] Unknown [id number] Unknown [id number] Social History Date Type Detail Facility Start: 11-17-2016 End: 05-11-2024 Tobacco smoking status NHIS Smokes tobacco daily [facility] Start: 04-21-2023 History of tobacco use Cigarette Smo ker [facility] Start: 11-17-2016 End: 10-23-2023 Cigarettes smoked current (pack per day) - Reported 0.3 [facility] Work Phone: Start: 07-28-2017 End: 02-22-2025 Alcohol intake Current non-drinker of alcohol (finding) [facility] Start: 1965 Sex Assigned At Not on file [facility] Start: 03-20-2018 End: 10-23-2023 Tobacco use panel [facility] Work Phone: Adult Depression Screening Assessment 2 [facility] Work Phone: Start: 06-05-2023 End: 06-26-2023 Tobacco smoking status NHIS Ex-smoker [facility] History of tobacco use Current smoker [facility] Start: 06-26-2023 End: 05-11-2024 Tobacco use and exposure Smokeless tobacco non-user [facility] Sex Assigned At [facility] Has the [employer], [employer], or water [employer] threatened to shut off services in your home in past 12Mo No [facility] (I/We) worried wheth er (my/our) food would run out before (I/we) got money to buy more. Never true [facility] Start: 09-04-2023 Tobacco smoking stat RUSTIS Unknown if ever smoked [facility] Start: 09-03-2023 [facility] Start: 09-03-2023 None [facility] Start: 09-03-2023 Alone [facility] Start: 09-03-2023 Cigarettes [facility] Start: 1965 Sex Assigned At Male [facility] Start: 10-31-2014 End: 04-21-2022 Sex Male (finding) [facility] How often to you hav e a drink containing alcohol? Never [facility] Medical Equipment Procedure Code Equipment Code Equipment Origin al Text Equipment Identifier Dates Inject 1 Each subcutaneously every 24 hours. Give with each insulin administration. [id number], [id number], [id number], [id number], [id number], [id number], [id number], [id number], [id number] Start: 09-10-2023 End: 11-09-2024 Comment on above: Inject 1 Each subcutaneously every 24 ho urs. Give with each insulin administration. Goals Date Patient Goal Desired Activity /State Personal health goal Functional Status Date Assessment Result Facility 11-09-2024 Functional Status Assistive Device None [facility] 04-15-2024 Are you deaf, or do you have serious difficulty hearing No 04/15/2024 12:05 PM Jessica Horner, SUZAN No [facility] 04-15-2024 Are you blind, or do you have serious difficulty seeing, even when wearing glasses No 04/15/2024 12:05 PM Jessica Horner, SUZAN No [facility] 04-15-2024 Do you have serious difficulty walking or climbing stairs No 04/15/2024 12:05 PM Jessica Horner, SUZAN No [facility] 04-15-2024 Do you have difficul ty dressing or bathing No 04/15/2024 12:05 PM Jessica Horner, SUZAN No [facility] 04-15-2024 Because of a physica l, mental, or emotional condition, do you have difficulty doing errands alone such as visiting a physician's office or shopping No 04/15/2024 12:05 PM Jessica Horner, SUZAN No [facility] 03-29-2024 Functional Status Independent [facility] 03-29-2024 Functional Status ID band on, Allergy Band on, Call device within reach, Bed in low position, Wheels locked, Upper/Half-Length side-rails up, Safety level maintained [facility] 11-28-2023 Functional Status Independent [facility] 11-28-2023 Functional Status ID band on [facility] Mental Status Date Assessment Result Facility 01-05-2025 Cognitive function Level Of Cons ciousness Awake;Alert;Appropriate;Fol lows Commands [facility] Work Phone: 11-09-2024 Mental Status Orientation Oriented x 4 [facility] 11-09-[address] [facility] 04-15-2024 Because of a physica l, mental, or emotional condition, do you have serious difficulty concentrating, remembering, or making decisions No 04/15/2024 12:05 PM EDT Jessica Dunlap RN No [facility] 03-29-2024 Mental Status Orientation Oriented x 4 [facility] 03-29-[address] [facility] 11-28-2023 Mental Status Orientation Oriented x 4 [facility] 11-28-[address] [facility] 09-04-2023 Cognitive function Level Of Cons ciousness Awake;Alert;Appropriate;Fol lows Commands [facility] Work Phone: Clinical Notes 03-25-2023 to 03-03-2025 Telephone Encounter - Frieda Garza - 03/03/2025 11:09 AM EDTTelephone Encounter - Frieda Garza - 03/03/2025 11:09 AM EDTTelephone Encounter - Frieda Garza - 03/02/2025 4:07 PM EDT Note Date & Type Note Facility 03-03-2025 Telephone encounter Note Patient has been made aware of questionnaire being sent over. Frieda Garza Housekeeping Worker March 03, 2025 11:10 AM [facility] 03-03-2025 Miscellaneous Notes Patient has been made aware of questionnaire being sent over. Rudi العلي March 03, 2025 11:10 AM Patient is requesting testosterone testing. He wanted to know what he needs to do to begin the process. Patient would like a call with an update once available. Rudi العلي March 02, 2025 4:08 PM documented in this encounter [facility] 03-02-2025 Telephone encounter Note Patient is requesting testosterone testing. He wanted to know what he needs to do to begin the process. Patient would like a call with an update once available. Rudi العلي March 02, 2025 4:08 PM [facility] 03-02-2025 Telephone encounter Note Patient has been made aware. Rudi العلي March 02, 2025 4:04 PM [facility] 03-02-2025 Miscellaneous Notes Patient has been made aware. Rudi العلي March 02, 2025 4:04 PM Recommend he increase to 3 mg dose weekly. I have sent that updated prescription Prescription Refill Information The patient has been identified by name and date of : Yes Caregiver verified no other encounters exist for this prescription request: Yes Caregiver confirmed with patient/requestor that no other refills are due, in the near future, with this provider at this time: Yes The last office visit in the department: 10/27/2024 Does the patient have a future office visit with this provider/department: Yes Requested Prescriptions Pending Prescriptions Disp Refills dulaglutide (TRULICITY) 1.5 mg/0.5 mL pen injector 2 mL 2 Sig: Inject 1.5 mg subcutaneously one time a week. Monitor bs closely and keep food log Larissa Mann MA March 01, 2025 3:33 PM documented in this encounter [facility] 03-02-2025 Telephone encounter Note Recommend he increase to 3 mg dose weekly. I have sent that updated prescription [facility] 03-01-2025 Telephone encounter Note Last Office Visit Date: 01/19/2025 Last [facility] [place] [facility] Visit: 04/19/2024 Has the patient had an appointment at [facility] in the past year, or do they have an upcoming appointment scheduled at [facility]? YES- Continue with refill request. Future Appointment: 04/04/2025 Patient Av[employer] message requesting the following refill Refill(s) Requested: Requested Prescriptions Pending Prescriptions Disp Refills albuterol HFA (PROVENTIL HFA, VENTOLIN HFA) 90 mcg/actuation inhaler 6.7 g 0 Sig: Inhale 2 puffs as instructed every 4 hours as needed for wheezing/shortness of breath. metFORMIN (GLUCOPHAGE) 1,000 mg tablet 180 tablet 0 Sig: Take 1 tablet by mouth two times a day. levothyroxine (SYNTHROID) 125 mcg tablet 90 tablet 0 Sig: Take 1 tablet by mouth daily before breakfast. insulin glargine 100 unit/mL (3 mL) 3 mL 2 Sig: Inject 20 Units subcutaneously daily at bedtime. Inject 20 Units subcutaneously as directed metoprolol succinate ER (TOPROL XL) 25 mg 24 hr tablet 30 tablet 2 Sig: Take 1 tablet by mouth once daily. ALLERGIES Allergen Reactions Amoxicillin-Pot Cla* Anaphylaxis, Swelling Doxycycline Unknown Lisinopril Cough Sulfamethoxazole-Tr* Rash, Hives, Swelling Trimethoprim Swelling (home) [phone] (cell) The patients preferred pharmacy has been captured for this encounter? yes Request is for script(s) to be escript to pharmacy. Corbin Alberto LPN [facility] 03-01-2025 Miscellaneous Notes Last Office Visit Date: 01/19/2025 Last [facility] [place] [facility] Visit: 04/19/2024 Has the patient had an appointment at [facility] in the past year, or do they have an upcoming appointment scheduled at [facility]? YES- Continue with refill request. Future Appointment: 04/04/2025 Patient Souf[employer] message requesting the following refill Refill(s) Requested: Requested Prescriptions Pending Prescriptions Disp Refills albuterol HFA (PROVENTIL HFA, VENTOLIN HFA) 90 mcg/actuation inhaler 6.7 g 0 Sig: Inhale 2 puffs as instructed every 4 hours as needed for wheezing/shortness of breath. metFORMIN (GLUCOPHAGE) 1,000 mg tablet 180 tablet 0 Sig: Take 1 tablet by mouth two times a day. levothyroxine (SYNTHROID) 125 mcg tablet 90 tablet 0 Sig: Take 1 tablet by mouth daily before breakfast. insulin glargine 100 unit/mL (3 mL) 3 mL 2 Sig: Inject 20 Units subcutaneously daily at bedtime. Inject 20 Units subcutaneously as directed metoprolol succinate ER (TOPROL XL) 25 mg 24 hr tablet 30 tablet 2 Sig: Take 1 tablet by mouth once daily. ALLERGIES Allergen Reactions Amoxicillin-Pot Cla* Anaphylaxis, Swelling Doxycycline Unknown Lisinopril Cough Sulfamethoxazole-Tr* Rash, Hives, Swelling Trimethoprim Swelling (home) [phone] (cell) The patients preferred pharmacy has been captured for this encounter? yes Request is for script(s) to be escript to pharmacy. Corbin Alberto LPN documented in this encounter [facility] 03-01-2025 Telephone encounter Note Prescription Refill Information The patient has been identified by name and date of : Yes Caregiver verified no other encounters exist for this prescription request: Yes Caregiver confirmed with patient/requestor that no other refills are due, in the near future, with this provider at this time: Yes The last office visit in the department: 10/27/2024 Does the patient have a future office visit with this provider/department: Yes Requested Prescriptions Pending Prescriptions Disp Refills dulaglutide (TRULICITY) 1.5 mg/0.5 mL pen injector 2 mL 2 Sig: Inject 1.5 mg subcutaneously one time a week. Monitor bs closely and keep food log Larissa Mann MA March 01, 2025 3:33 PM [facility] 02-22-2025 Note HNO ID: [id number] Author: TALITA ROSS MD Service: ? Author Type: Physician Type: Progress Notes Filed: 03/02/2025 19:06 Note Text: Talita Ross MD Hand AND Upper Extremity Surgery [address] [facility] , [address] [address] OUTPATIENT ESTABLISHED PATIENT VISIT SERVICE DATE: 02/22/2025 HISTORY OF PRESENT ILLNESS Venkat Marsh presents to the office for right thumb pain. Patient is known to my office, seen previously for Dupuytren's nodules. Patient does recall a specific single traumatic event. He hit the right hand at night because he thinks he sleep walks. This was a couple weeks ago. 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 No Yes, Provider notified Pain Level 6 Pain Location Finger Description Stabbing;Throbbing Duration Amount of Time 2 Duration Units Months Frequency Continuous PAST MEDICAL HISTORY Past medical, surgical, family, and social histories have been reviewed and updated with the patient today and are located elsewhere in the medical record. ALLERGIES ALLERGIES Allergen Reactions Amoxicillin-Pot Cla* Anaphylaxis, Swelling Doxycycline Unknown Lisinopril Cough Sulfamethoxazole-Tr* Rash, Hives, Swelling Trimethoprim Swelling PHYSICAL EXAMINATION: VITAL SIGNS: Pulse 76 Ht 5' 7 (1.70m) Wt 288 lb (130.6kg) SpO2 92% BMI 45.10 kg/(m2). GENERAL: The patient is awake, alert, and oriented with appropriate mood and affect. SKIN: The skin over the right hand shows no rash, lesion or erythema, and that is comparable to the contralateral hand. INSPECTION/PALPATION: There is no gross asymmetry compared to the contralateral hand. There is localized swelling about the thumb CMC joint, with obvious shoulder sign deformity. There is no palpable joint effusion. TENDERNESS: There is tenderness to palpation about the right CMC joint with a positive grind test. Hyperextension of the right thumb reproduces the pain. There is no tenderness at the STT joint. There is no tenderness with palpation over the 1st dorsal compartment. ROM: There is limited range of motion of the thumb, and there is an adducted posture to the thumb. LIGAMENTS: There is no compensatory hyperextension of the MP joint. MUSCLE: Leaded Glass Installer and pinch strength are decreased due to pain. NEURO: The patient reports no decreased sensation to the thumb. VASCULAR: Strong radial pulse. Excellent capillary refill to all digits. IMAGING PER MY INTERPRETATION: 3 views of the right hand from outpatient radiology today were reviewed and demonstrate thumb CMC arthritis, Eaton stage III ASSESSMENT AND PLAN (M79.641) Pain of right hand (primary encounter diagnosis) (M18.11) Osteoarthritis of right thumb I reviewed the X-rays with the patient. Discussed the treatment algorithm for thumb CMC arthritis which includes hand-based thumb braces, topical anti-inflammatories, oral anti-inflammatories, steroid injections and surgical intervention in late stages. Patient wishes to try an injection today. Risks of corticosteroid injection were discussed including self-limited post-injection flare, risk of transient blood glucose elevation, risk of self-limited facial flushing, risk of skin atrophy or depigmentation and risk of infection. Activities and restrictions after injection were also discussed. Patient may perform any ADLs after injection. I recommend no increase in baseline activity while the lidocaine is in effect. It could take 3-5 days for maximal steroid effect. Patient is higher risk for side effects due to DM. Patient advised to monitor symptoms for the next 3 days and allow 2 weeks for maximal effect. Patient will contact me if symptoms are not improved after 2 weeks from the injection for further workup and management. Small Joint Arthro/Inj: R thumb CMC 02/22/2025 7:06 PM The procedure site was prepped in the usual sterile fashion. Medications: 3 mg betamethasone acetate-betamethasone sodium phosphate 6 mg/mL Anesthetics: 0.5 mL lidocaine (PF) 10 mg/mL (1 %) Outcome: tolerated well, no immediate complications Post-injection instructions were reviewed with the patient and the patient voiced understanding of these instructions. Informed Consent Consent Obtained: Verbal [place] Protocol A moment to CARE was completed. SIGN IN Personnel directly involved with the procedure wore the appropriate PPE. Special Equipment: N/A Patient/Surrogate Stated/Verified: Patient name, Relevant allergies and Intended procedure TIME OUT Relevant labs, photos, and/or imaging studies have been reviewed. Correct side/site marked and (more content not included)... [facility] 02-22-2025 History of Present illness Narrative Associated Order(s): Small Joint Arthro/Inj: R thumb CMC Post-Procedure Diagnose(s): Osteoarthritis of right thumb Images from the original note were not included. Talita Ross MD Hand & Upper Extremity Surgery [address] [facility] [address] [place], [address] [address] OUTPATIENT ESTABLISHED PATIENT VISIT SERVICE DATE: 02/22/2025 HISTORY OF PRESENT ILLNESS Venkat Marsh presents to the office for right thumb pain. Patient is known to my office, seen previously for Dupuytren's nodules. Patient does recall a specific single traumatic event. He hit the right hand at night because he thinks he sleep walks. This was a couple weeks ago. Aggravating factors: Tight stone rigger, opening a bottle, pinch Previously seen (including today): Office Visit on 05/08/2023 with CODY, TALITA Office Visit on 06/05/2023 with CODY, TALITA Office Visit on 06/12/2023 with CODY, TALITA Office Visit on 02/22/2025 with CODY, TALITA 01/19/2025 02/22/2025 INTAKE PAIN ASSESSMENT Are you having pain associated with your visit today? No Yes, Provider notified Pain Level 6 Pain Location Finger Description Stabbing;Throbbing Duration Amount of Time 2 Duration Units Months Frequency Continuous PAST MEDICAL HISTORY Past medical, surgical, family, and social histories have been reviewed and updated with the patient today and are located elsewhere in the medical record. ALLERGIES ALLERGIES Allergen Reactions Amoxicillin-Pot Cla* Anaphylaxis, Swelling Doxycycline Unknown Lisinopril Cough Sulfamethoxazole-Tr* Rash, Hives, Swelling Trimethoprim Swelling PHYSICAL EXAMINATION: VITAL SIGNS: Pulse 76 Ht 5' 7 (1.70m) Wt 288 lb (130.6kg) SpO2 92% BMI 45.10 kg/(m^2). GENERAL: The patient is awake, alert, and oriented with appropriate mood and affect. SKIN: The skin over the right hand shows no rash, lesion or erythema, and that is comparable to the contralateral hand. INSPECTION/PALPATION: There is no gross asymmetry compared to the contralateral hand. There is localized swelling about the thumb CMC joint, with obvious shoulder sign deformity. There is no palpable joint effusion. TENDERNESS: There is tenderness to palpation about the right CMC joint with a positive grind test. Hyperextension of the right thumb reproduces the pain. There is no tenderness at the STT joint. There is no tenderness with palpation over the 1st dorsal compartment. ROM: There is limited range of motion of the thumb, and there is an adducted posture to the thumb. LIGAMENTS: There is no compensatory hyperextension of the MP joint. MUSCLE: Leaded Glass Installer and pinch strength are decreased due to pain. NEURO: The patient reports no decreased sensation to the thumb. VASCULAR: Strong radial pulse. Excellent capillary refill to all digits. IMAGING PER MY INTERPRETATION: 3 views of the right hand from outpatient radiology today were reviewed and demonstrate thumb CMC arthritis, Eaton stage III ASSESSMENT AND PLAN (M79.641) Pain of right hand (primary encounter diagnosis) (M18.11) Osteoarthritis of right thumb I reviewed the X-rays with the patient. Discussed the treatment algorithm for thumb CMC arthritis which includes hand-based thumb braces, topical anti-inflammatories, oral anti-inflammatories, steroid injections and surgical intervention in late stages. Patient wishes to try an injection today. Risks of corticosteroid injection were discussed including self-limited post-injection flare, risk of transient blood glucose elevation, risk of self-limited facial flushing, risk of skin atrophy or depigmentation and risk of infection. Activities and restrictions after injection were also discussed. Patient may perform any ADLs after injection. I recommend no increase in baseline activity while the lidocaine is in effect. It could take 3-5 days for maximal steroid effect. Patient is higher risk for side effects due to DM. Patient advised to monitor symptoms for the next 3 days and allow 2 weeks for maximal effect. Patient will contact me if symptoms are not improved after 2 weeks from the injection for further workup and management. Small Joint Arthro/Inj: R thumb CMC 02/22/2025 7:06 PM The procedure site was prepped in the usual sterile fashion. Medications: 3 mg betamethasone acetate-betamethasone sodium phosphate 6 mg/mL Anesthetics: 0.5 mL lidocaine (PF) 10 mg/mL (1 %) Outcome: tolerated well, no immediate complications Post-injection instructions were reviewed with the patient and the patient voiced understanding of these instructions. Informed Consent Consent Obtained: Verbal [place] Protocol A moment to CARE was completed. SIGN IN Personnel directly involved with the procedure wore the appropriate PPE. Special Equipment: N/A Patient/Surrogate Stated/Verified: Patient name, Relevant allergies and Intended procedure TIME OUT Relevant labs, photos, and/or imaging studies have been reviewed. Correct side/site marked and visible. Medications required for procedure verified. No fire risk assessment and interventions applicable. No implant(s) inserted. SIGN OUT All instruments, equipment, possible retained foreign bodies accounted for. Follow up as needed. No X-Rays Needed Patient instructed to call the office with questions or concerns. Recording using [employer] software for draft documentation of the visit was discussed with the patient/authorized sales representative trainee; all questions welcomed and answered. Patient/authorized sales representative trainee agreed to proceed Talita Ross MD Medical Decision Making Prepared Celestone 6mg/ml Lidocaine 1% injection as directed by Dr. Talita Ross and handed directly to Dr. Talita Ross for administration. Sandra Samuels RN February 22, 2025 11:21 AM documented in this encounter [facility] 02-22-2025 Note HNO ID: [id number] Author: SANDRA SAMUELS RN Service: ? Author Type: Registered Nurse Type: Progress Notes Filed: 03/02/2025 19:06 Note Text: Prepared Celestone 6mg/ml Lidocaine 1% injection as directed by Dr. Talita Ross and handed directly to Dr. Talita Ross for administration. Sandra Samuels RN February 22, 2025 11:21 AM [facility] 02-20-2025 Telephone encounter Note Pt reminded of appointment on 02/22/2025 and to have xrays completed prior to the day of his appointment. Pt was given hours and locations to have this completed. Pt verbalized understanding of instructions. Bibiana Lozoya MA February 20, 2025 3:39 PM [facility] 02-20-2025 Miscellaneous Notes Pt reminded of appointment on 02/22/2025 and to have xrays completed prior to the day of his appointment. Pt was given hours and locations to have this completed. Pt verbalized understanding of instructions. Bibiana Lozoya MA February 20, 2025 3:39 PM documented in this encounter [facility] 01-27-2025 Note HNO ID: [id number] Author: REBECCA CAMEJO MD Service: ? Author Type: Physician Type: Progress Notes Filed: 01/27/2025 11:22 Note Text: Reviewed the patient's chart and agree with the resident's assessment and plan. Rebecca Camejo MD Reviewed the patient's chart and agree with the resident's assessment and plan. Rebecca Camejo MD [facility] 01-27-2025 History of Present illness Narrative Reviewed the patient's chart and agree with the resident's assessment and plan. Rebecca Camejo MD Reviewed the patient's chart and agree with the resident's assessment and plan. Rebecca Camejo MD [facility] PROGRESS NOTE PATIENT: eVnkat Marsh MRD: [id number] DATE: January 27, 2025 IDENTIFYING INFORMATION: Venkat is a 59 year old male with a history of disorder, cocaine use disorder, anxiety. CHIEF COMPLAINT: doing ok today SUBJECTIVE: Venkat is a 59 year old male with a history of mood disorder, cocaine use disorder, anxiety. The patient's last appointment with [facility] was on 02/03/24. Psychotropic medication regimen following that appointment included: Remeron 15 mg at bedtime, trazodone 100 mg at bedtime. On encounter today, the patient reports doing ok today. Patient reports mood has been somewhat more depressed than usual. Patient reports some anhedonia. Was in hospital twice in last 6 months for heart failure. Talks about his past runaway bride and feels down when he thinks about it or when people bring it up. Would like to exercise more. Reports occasional low motivation. Patient reports sleep is ok with the medications. Patient states energy is sometimes low throughout the day. Patient denies suicidal thoughts. Reports appetite is ok . Anxiety is reported as present. PHQ-9 More data exists 11/02/2023 01/30/2024 03/28/2024 10/03/2024 01/22/2025 PHQ-9 Scores Little interest or pleasure in doing things: Several days More than half the days Several days Several days Several days Feeling down, depressed, or hopeless: Not at all More than half the days Several days Several days More than half the days Trouble falling or staying asleep, or sleeping too much Not at all Not at all - Several days Several days Feeling tired or having little energy Nearly every day Nearly every day - Nearly every day Nearly every day Poor appetite or overeating Several days Not at all - Not at all Not at all Feeling bad about yourself - or that you are a failure or have let yourself or your family down Several days Several days - Not at all Several days Trouble concentrating on things, such as reading the newspaper or watching television Several days More than half the days - More than half the days More than half the days Moving or speaking so slowly that other people could have noticed. Or the opposite - being so fidgety or restless that you have been moving around a lot more than usual Not at all Not at all - Not at all Not at all Thoughts that you would be better off , or of hurting yourself in some way Not at all Not at all - Not at all Not at all PHQ-9 Score 7 10 - 8 10 ALEX-7 More data may exist 03/25/2023 11/02/2023 01/30/2024 10/03/2024 01/22/2025 ALEX-7 All Questions Feeling nervous, anxious, or on edge Several days Not at all Not at all Not at all Not at all Not being able to stop or control worrying Not at all Not at all Several days Several days Several days Worrying too much about different things More than half the days Several days Several days Several days Several days Trouble relaxing Not at all Several days Not at all Several days Several days Being so restless that it is hard to sit still More than half the days Not at all Not at all Not at all Not at all Becoming easily annoyed or irritable Not at all Several days Not at all Several days Several days Feeling afraid, as if something awful might happen Not at all Not at all Not at all Not at all Not at all ALEX-7 Score 5 3 2 4 4 Medication side effects: None Suicidal/Homicidal Thoughts/Plans: denies Substance Use History: Caffeine- likes lots of caffeine- 1 pot a day Nicotine- cigarettes, 0.5 ppd Alcohol- denies any use for 5 years THC- denies THC use since highschool Hx heavy Cocaine use in his 30s, denies use of meth, heroin VITAL SIGNS: There were no vitals taken for this visit. LAB DATA: reviewed MENTAL STATUS EXAMINATION: Mental Status Exam: General/Sensorium: Alert - Appearance: Appears stated age and Overweight - Eye Contact: Appropriate eye contact - Demeanor: Appropriately interactive - Motor Activity: Normal - Speech: Appropriate - Mood: Reports feeling depressed - Affect: Reactive and Anxious - Thought Process: - occasionally rambling, however redirectable Associations: Normal - Thought Content: Appropriate with no SI/HI/AVH and Talking about future goals or plans - discusses stressors Perceptions: The patient does not appear internally stimulated - Cognition: - no gross deficits appreciable on encounter Insight: Fair - Judgment: Fair - RATING SCALES: PHQ-9 Score: 10 (01/22/2025 9:50 AM) (0-4) minimal depression, (5-9) mild depression, (10-14) moderate depression, (15-19) moderately severe depression, (20-27) severe depression ALEX-7 Total Score: 4 (01/22/2025 9:53 AM) (0-4) minimal anxiety, (5-9) mild anxiety, (10-14) moderate anxiety, (15-21) severe anxiety RISK ASSESSMENT: 1.) Wish to be : Have you wished you were or wished you could go to sleep and not wake up? NO 2.) Suicidal Thoughts: Have you actually had any thoughts of killing yourself? NO 3.) Suicide Behavior Question: Have you ever done anything, started to do anything, or prepared to do anything to end your life?NO IMPRESSION: 1. Mood disorder, unspecified 2. Cocaine use disorder, in sustained remission, 20-30+ years of remsission 3. Anxiety unspecified- correlate with ongoing significant caffeine/nicotine use 4. Insomnia, unspecified PLAN: Provided eap counselor and support. Encouraged ongoing use of coping skills, resiliency. Encouraged healthy and open communication. Medication changes: increase Remeron 15 mg to 22.5 qhs, historical medication Continue trazodone 100 mg qhs, historical medication-discussed with patient if he is feeling groggy in the morning, he may try taking one half of a tablet of this. reinforce role of caffeine on mental physical health, eap counselor cutting back/ cessation Pt reports he is not established with therapist currently- consult placed Risk/benefits/side effects/interactions of above medications discussed with patient Labs: reviewed PDMP website checked and validated. All prescriptions have been APPROPRIATELY filled. No suspicious activity was identified. 01/27/2025 by Yuliet Fong, DO Patient understands and agrees with the plan: Yes Patient will return for follow-up appointment in 3 months time. If there are any problems in the interim, the patient will contact our clinic for an earlier appointment. For all medical and psychiatric emergencies, the patient will go to the nearest emergency room. Return in about 3 months (around 04/29/2025). I spent a total of 30+ minutes on the date of the service which included preparing to see the patient, [id number] patient care, completing clinical documentation, obtaining and/or reviewing separately obtained history, performing a medically appropriate examination, counseling and educating the patient/family/caregiver, and ordering medications, tests, or procedures. Disclaimer: Portions of this note may have been generated using [employer] plugin voice recognition software and is inherently subject to errors including those of syntax and sound-alike substitutions, reasonable efforts were made to correct any dictation errors that resulted due to the programming of this software but some may still be present which may escape proofreading. In such instances, original meaning may be extrapolated by contextual derivation. Electronically signed by Yuliet Fong DO January 27, 2025 8:35 AM documented in this encounter [facility] 01-27-2025 Note HNO ID: [id number] Author: YULIET FONG DO Service: ? Author Type: Resident Type: Progress Notes Filed: 01/27/2025 08:57 Note Text: [facility] RESIDENT [facility]INIC PROGRESS NOTE PATIENT: Venkat Marsh MRD: [id number] DATE: January 27, 2025 IDENTIFYING INFORMATION: Venkat is a 59 year old male with a history of disorder, cocaine use disorder, anxiety. CHIEF COMPLAINT: doing ok today SUBJECTIVE: Venkat is a 59 year old male with a history of mood disorder, cocaine use disorder, anxiety. The patient's last appointment with [facility] was on 02/03/24. Psychotropic medication regimen following that appointment included: Remeron 15 mg at bedtime, trazodone 100 mg at bedtime. On encounter today, the patient reports doing ok today. Patient reports mood has been somewhat more depressed than usual. Patient reports some anhedonia. Was in hospital twice in last 6 months for heart failure. Talks about his past runaway bride and feels down when he thinks about it or when people bring it up. Would like to exercise more. Reports occasional low motivation. Patient reports sleep is ok with the medications. Patient states energy is sometimes low throughout the day. Patient denies suicidal thoughts. Reports appetite is ok . Anxiety is reported as present. PHQ-9 More data exists 11/02/2023 01/30/2024 03/28/2024 10/03/2024 01/22/2025 PHQ-9 Scores Little interest or pleasure in doing things: Several days More than half the days Several days Several days Several days Feeling down, depressed, or hopeless: Not at all More than half the days Several days Several days More than half the days Trouble falling or staying asleep, or sleeping too much Not at all Not at all - Several days Several days Feeling tired or having little energy Nearly every day Nearly every day - Nearly every day Nearly every day Poor appetite or overeating Several days Not at all - Not at all Not at all Feeling bad about yourself - or that you are a failure or have let yourself or your family down Several days Several days - Not at all Several days Trouble concentrating on things, such as reading the newspaper or watching television Several days More than half the days - More than half the days More than half the days Moving or speaking so slowly that other people could have noticed. Or the opposite - being so fidgety or restless that you have been moving around a lot more than usual Not at all Not at all - Not at all Not at all Thoughts that you would be better off , or of hurting yourself in some way Not at all Not at all - Not at all Not at all PHQ-9 Score 7 10 - 8 10 ALEX-7 More data may exist 03/25/2023 11/02/2023 01/30/2024 10/03/2024 01/22/2025 ALEX-7 All Questions Feeling nervous, anxious, or on edge Several days Not at all Not at all Not at all Not at all Not being able to stop or control worrying Not at all Not at all Several days Several days Several days Worrying too much about different things More than half the days Several days Several days Several days Several days Trouble relaxing Not at all Several days Not at all Several days Several days Being so restless that it is hard to sit still More than half the days Not at all Not at all Not at all Not at all Becoming easily annoyed or irritable Not at all Several days Not at all Several days Several days Feeling afraid, as if something awful might happen Not at all Not at all Not at all Not at all Not at all ALEX-7 Score 5 3 2 4 4 Medication side effects: None Suicidal/Homicidal Thoughts/Plans: denies Substance Use History: Caffeine- likes lots of caffeine- 1 pot a day Nicotine- cigarettes, 0.5 ppd Alcohol- denies any use for 5 years THC- denies THC use since highschool Hx heavy Cocaine use in his 30s, denies use of meth, heroin VITAL SIGNS: There were no vitals taken for this visit. LAB DATA: reviewed MENTAL STATUS EXAMINATION: Mental Status Exam: General/Sensorium: Alert - Appearance: Appears stated age and Overweight - Eye Contact: Appropriate eye contact - Demeanor: Appropriately interactive - Motor Activity: Normal - Speech: Appropriate - Mood: Reports feeling depressed - Affect: Reactive and Anxious - Thought Process: - occasionally rambling, however redirectable Associations: Normal - Thought Content: Appropriate with no SI/HI/AVH and Talking about future goals or plans - discusses stressors Perceptions: The patient does not appear internally stimulated - Cognition: - no gross deficits appreciable on encounter Insight: Fair - Judgment: Fair - RATING SCALES: PHQ-9 Score: 10 (01/22/2025 9:50 AM) (0-4) minimal depression, (5-9) mild depression, (10-14) moderate depression, (15-19) moderately severe depression, (20-27) severe depression ALEX-7 Total Score: 4 (01/22/2025 9:53 AM) (0-4) minimal anxiety, (5-9) mild anxiety, (10-14) moder (more content not included)... [facility] 01-24-2025 Note HNO ID: [id number] Author: NATALI WEAVER RN Service: ? Author Type: Registered Nurse Type: Progress Notes Filed: 01/24/2025 09:26 Note Text: DIABETES CARE AND EDUCATION VISIT Location: [place] Type of visit: In person individual PATIENT'S MAIN CONCERN TODAY: what can I do to get off insulin and other meds Support person present for education today: none Cognitive ability: Alert and oriented Motivation to learn: Interested Learning barriers identified by educator: none Method of instruction: written and verbal DIABETES FINDINGS: Limited time today, patient was concerned about his ride and making sure he was able to leave by 9:25 Monitoring: Reviewed goals for checking sugars, reports he checks daily Meal Planning: reviewed basic meal recommendations Medications: reviewed the meds he takes and how they function Problem Solving:hypo and hyperglycemia reviewed Physical Activity: benefits discussed HANDOUTS: Healthy You: Survival Skills and Healthy You: Planning Healthy Meals LEARNING RESPONSE: Healthy eating: Demonstrated understanding/competency today or at previous visit Being active: Demonstrated understanding/competency today or at previous visit Taking medications: Demonstrated understanding/competency today or at previous visit POSSIBLE FUTURE TOPICS: 1. DIABETES CARE AND EDUCATION PLAN: Education completed and annual diabetes education follow-up visit recommended Time Spent (Minutes): 25 This visit note will be communicated to the healthcare provider via access to shared medical record. SIGNATURE: Natali Weaver RN PATIENT NAME: Venkat Marsh DATE: January 24, 2025 TIME: 8:56 AM [facility] 01-24-2025 History of Present illness Narrative DIABETES CARE AND EDUCATION VISIT Location: [place] Type of visit: In person individual PATIENT'S MAIN CONCERN TODAY: what can I do to get off insulin and other meds Support person present for education today: none Cognitive ability: Alert and oriented Motivation to learn: Interested Learning barriers identified by educator: none Method of instruction: written and verbal DIABETES FINDINGS: Limited time today, patient was concerned about his ride and making sure he was able to leave by 9:25 Monitoring: Reviewed goals for checking sugars, reports he checks daily Meal Planning: reviewed basic meal recommendations Medications: reviewed the meds he takes and how they function Problem Solving:hypo and hyperglycemia reviewed Physical Activity: benefits discussed HANDOUTS: Healthy You: Survival Skills and Healthy You: Planning Healthy Meals LEARNING RESPONSE: Healthy eating: Demonstrated understanding/competency today or at previous visit Being active: Demonstrated understanding/competency today or at previous visit Taking medications: Demonstrated understanding/competency today or at previous visit POSSIBLE FUTURE TOPICS: 1. DIABETES CARE AND EDUCATION PLAN: Education completed and annual diabetes education follow-up visit recommended Time Spent (Minutes): 25 This visit note will be communicated to the healthcare provider via access to shared medical record. SIGNATURE: Natali Weaver RN PATIENT NAME: Venkat Marsh DATE: January 24, 2025 TIME: 8:56 AM documented in this encounter [facility] 01-20-2025 Telephone encounter Note Heart Failure Clinic Discharge Call Discharge Date 01/17/25 Patient was called today as a hospital discharge follow up phone call. The following represents a summary of the call. Do you feel as good as you did when you left the hospital? Are you able to do some activities of daily living? yes, yes Have you had any healthcare appointments since discharge? If yes, did they change any medications? yes, yes they added some Have you missed any of your pills since discharge? Medication list reviewed and consistent with discharge EMR. no, updated medication list below taking all the medications listed on discharge and PCP added some. Added ones are blue Do you have a scale/Are you doing daily weights/Any changes in weight? Pt does have a scale but is going to start soon, daily wt education Do you have any symptoms of volume overload? (SOB, abdominal bloating/fullness, ankle/leg swelling/orthopnea) or dehydration? no, no How are you doing on your low sodium/salt diet? yes Do you have any questions;concerns? None Confirm next OV or when you will call again. 01/30/25 1000 MM Pt Verbalizes understanding. spironolactone (ALDACTONE) 25 mg tablet Take 25 mg by mouth once daily. furosemide (LASIX) 20 mg tablet Take 40 mg by mouth once daily. loratadine (CLARITIN) 10 mg tablet Take 10 mg by mouth once daily. Benzonatate 200 mg capsule Take 200 mg by mouth three times a day as needed. dapagliflozin propanediol (FARXIGA) 10 mg tablet Take by mouth daily with breakfast. sacubitril-valsartan (ENTRESTO) 49-51 mg tablet Take 1 tablet by mouth two times a day. diphenhydrAMINE (BANOPHEN) 25 mg capsule Take 25 mg by mouth three times a day as needed. mirtazapine (REMERON) 15 mg tablet Take 1 tablet by mouth daily at bedtime. traZODone (DESYREL) 100 mg tablet Take 1 tablet by mouth daily at bedtime. predniSONE (DELTASONE) 20 mg tablet Take 40 mg by mouth once daily. aspirin, enteric coated (ASPIRIN, ENTERIC COATED) 81 mg EC tablet Take 1 tablet by mouth once daily. metoprolol succinate ER (TOPROL XL) 25 mg 24 hr tablet Take 1 tablet by mouth once daily. BD SAFETYGLIDE INSULIN SYRINGE 0.5 mL 30 gauge x 5/16 syrg Inject 1 Each subcutaneously every 24 hours. Give with each insulin administration. dulaglutide (TRULICITY) 1.5 mg/0.5 mL pen injector Inject 1.5 mg subcutaneously one time a week. Monitor bs closely and keep food log albuterol HFA (PROVENTIL HFA, VENTOLIN HFA) 90 mcg/actuation inhaler Inhale 2 Puffs as instructed every 4 hours as needed for wheezing/shortness of breath. metFORMIN (GLUCOPHAGE) 1,000 mg tablet Take 1 tablet by mouth two times a day. levothyroxine (SYNTHROID) 125 mcg tablet Take 1 tablet by mouth daily before breakfast. Insulin Whitman, Disposable, (PEN NEEDLE) 32 gauge x 5/32 Inject 1 Each subcutaneously every 24 hours. Give with each insulin administration. insulin glargine 100 unit/mL (3 mL) Inject 20 Units subcutaneously daily at bedtime. Inject 20 Units subcutaneously as directed magnesium, aluminum hydroxide (MYLANTA ORAL) Take 5 mL by mouth two times a day as needed (heartburn). rosuvastatin (CRESTOR) 10 mg tablet Take 1 tablet by mouth one time a week. ezetimibe (ZETIA) 10 mg tablet Take 1 tablet by mouth once daily. fluticasone (FLONASE) 50 mcg/actuation nasal spray Use 1 spray in each nostril daily at bedtime. nicotine (NICODERM CQ) 21 mg/24 hr Apply 1 patch as directed every 24 hours. nicotine polacrilex (NICORETTE) 4 mg gum Take 1 each by mouth as needed. [facility] 01-20-2025 Miscellaneous Notes Heart Failure Clinic Discharge Call Discharge Date 01/17/25 Patient was called today as a hospital discharge follow up phone call. The following represents a summary of the call. Do you feel as good as you did when you left the hospital? Are you able to do some activities of daily living? yes, yes Have you had any healthcare appointments since discharge? If yes, did they change any medications? yes, yes they added some Have you missed any of your pills since discharge? Medication list reviewed and consistent with discharge EMR. no, updated medication list below taking all the medications listed on discharge and PCP added some. Added ones are blue Do you have a scale/Are you doing daily weights/Any changes in weight? Pt does have a scale but is going to start soon, daily wt education Do you have any symptoms of volume overload? (SOB, abdominal bloating/fullness, ankle/leg swelling/orthopnea) or dehydration? no, no How are you doing on your low sodium/salt diet? yes Do you have any questions;concerns? None Confirm next OV or when you will call again. 01/30/25 1000 MM Pt Verbalizes understanding. spironolactone (ALDACTONE) 25 mg tablet Take 25 mg by mouth once daily. furosemide (LASIX) 20 mg tablet Take 40 mg by mouth once daily. loratadine (CLARITIN) 10 mg tablet Take 10 mg by mouth once daily. Benzonatate 200 mg capsule Take 200 mg by mouth three times a day as needed. dapagliflozin propanediol (FARXIGA) 10 mg tablet Take by mouth daily with breakfast. sacubitril-valsartan (ENTRESTO) 49-51 mg tablet Take 1 tablet by mouth two times a day. diphenhydrAMINE (BANOPHEN) 25 mg capsule Take 25 mg by mouth three times a day as needed. mirtazapine (REMERON) 15 mg tablet Take 1 tablet by mouth daily at bedtime. traZODone (DESYREL) 100 mg tablet Take 1 tablet by mouth daily at bedtime. predniSONE (DELTASONE) 20 mg tablet Take 40 mg by mouth once daily. aspirin, enteric coated (ASPIRIN, ENTERIC COATED) 81 mg EC tablet Take 1 tablet by mouth once daily. metoprolol succinate ER (TOPROL XL) 25 mg 24 hr tablet Take 1 tablet by mouth once daily. BD SAFETYGLIDE INSULIN SYRINGE 0.5 mL 30 gauge x 5/16 syrg Inject 1 Each subcutaneously every 24 hours. Give with each insulin administration. dulaglutide (TRULICITY) 1.5 mg/0.5 mL pen injector Inject 1.5 mg subcutaneously one time a week. Monitor bs closely and keep food log albuterol HFA (PROVENTIL HFA, VENTOLIN HFA) 90 mcg/actuation inhaler Inhale 2 Puffs as instructed every 4 hours as needed for wheezing/shortness of breath. metFORMIN (GLUCOPHAGE) 1,000 mg tablet Take 1 tablet by mouth two times a day. levothyroxine (SYNTHROID) 125 mcg tablet Take 1 tablet by mouth daily before breakfast. Insulin Whitman, Disposable, (PEN NEEDLE) 32 gauge x 5/32 Inject 1 Each subcutaneously every 24 hours. Give with each insulin administration. insulin glargine 100 unit/mL (3 mL) Inject 20 Units subcutaneously daily at bedtime. Inject 20 Units subcutaneously as directed magnesium, aluminum hydroxide (MYLANTA ORAL) Take 5 mL by mouth two times a day as needed (heartburn). rosuvastatin (CRESTOR) 10 mg tablet Take 1 tablet by mouth one time a week. ezetimibe (ZETIA) 10 mg tablet Take 1 tablet by mouth once daily. fluticasone (FLONASE) 50 mcg/actuation nasal spray Use 1 spray in each nostril daily at bedtime. nicotine (NICODERM CQ) 21 mg/24 hr Apply 1 patch as directed every 24 hours. nicotine polacrilex (NICORETTE) 4 mg gum Take 1 each by mouth as needed. TC to Pt went to [facility] returned your call TC to Pt no answer LVM Discharged with heart failure. Needs 72 hour post discharge phone call. documented in this encounter [facility] 01-19-2025 Telephone encounter Note TC to Pt went to , LVM [facility] 01-19-2025 Note HNO ID: [id number] Author: NIKOLAI NAZARIO DO Service: ? Author Type: Physician Type: Progress Notes Filed: 01/19/2025 11:50 Note Text: Nikolai Nazario DO Board Certified Internal Medicine, Lipidology, Metabolic Medicine and Lifestyle Medicine [facility] Recording using ambient [email or web address] software for draft documentation of the visit was discussed with the patient/authorized sales representative trainee; all questions welcomed and answered. Patient/authorized sales representative trainee agreed to proceed Date of Evaluation: 01/19/2025 Patient Name: Venkat Marsh : 1965 AGE: [age] year old Race: White Sex: male ASSESSMENT/PLAN: 1. Chronic HFrEF I50.22 (primary diagnosis) - Continue current medications - Encouraged sodium restriction - Encouraged daily weights - Recommend regular aerobic exercise - Smoking cessation encouraged; discussed risks to health and quitting strategies. Patient is ready to quit - NT PRO BNP - CONSULT TO [facility] ([facility] ONLY) - COMPLETE BLOOD COUNT AND DIFFERENTIAL - COMPREHENSIVE METABOLIC PANEL 2. Tobacco abuse - ICD9: 305.1, ICD10: Z72.0 - Cessation encouraged. - Physiologic and physical aspects of tobacco addiction as well as strategies for quitting were discussed. - Counseling was given focusing on the harmful effects of this addiction especially given the patient's medical condition(s) which will be worsened because of the chemicals in tobacco. - Prescription given - NICOTINE 21 MG/24 HR DAILY TRANSDERMAL PATCH - NICOTINE (POLACRILEX) 4 MG GUM 3. Type 2 diabetes mellitus with diabetic microalbuminuria, with long-term current use of insulin (HCC) - ICD9: 250.40, 791.0, V58.67, ICD10: E11.29, R80.9, Z79.4 - Uncontrolled - Continue current medications - Statin prescribed - rosuvastatin and ezetimibe - Blood glucose monitoring on a once daily schedule - Counseled on healthy diet and regular exercise - Discussed need for and benefit of weight loss. BMI 43.85 kg/(m2) - ALBUMIN/CREATININE RATIO, URINE - CONSULT TO [facility] ([facility] ONLY) - CONSULT TO DIABETES EDUCATION DSME 4. Hypercholesteremia - ICD9: 272.0, ICD10: E78.00 - Reports issues with statin induced myalgia. - Recommend to begin once weekly rosuvastatin with daily ezetimibe to test for tolerance - LIPID PANEL, NONFASTING - LIPOPROTEIN (A) - ROSUVASTATIN 10 MG TABLET - EZETIMIBE 10 MG TABLET 5. Primary hypertension - ICD9: 401.9, ICD10: I10 - Uncontrolled - Continue current medications - Recommend home blood pressure monitoring, to bring results to next visit - Encouraged sodium restriction, DASH or Mediterranean diet - Recommend regular aerobic exercise - Discussed need for and benefit of weight loss. BMI 43.85 kg/(m2) 6. Coronary artery disease involving [place] coronary artery of [place] heart without angina pectoris - ICD9: 414.01, ICD10: I25.10 - Educated about need for no smoking, controlled sugars, BP < 120/80 and LDL < 50 mg/dL 7. Bipolar 1 disorder (HCC) - ICD9: 296.7, ICD10: F31.9 - Compensated - Continue current medications 8. Obesity, Class III, BMI >= 40 - ICD9: 278.01, ICD10: E66.813 Weight decreasing - Behavioral intervention 9. Pain of right hand - ICD9: 729.5, ICD10: M79.641 - XR HAND GENERAL 3V PA/LAT/OBL RIGHT - CONSULT PANEL TO ORTHOPAEDICS Nikolai Nazario DO Return in about 1 month (around 02/19/2025). Discussed the above with the patient using shared decision making. The patient is in agreement with the diagnostic and treatment plans. Patient to follow-up as advised or sooner if problem worsens or does not resolve. Nikolai Nzaario DO Subjective Venkat is a 59-year-old male with a history of CHF, DM, and hyperlipidemia, presenting for an initial visit and medication management. Congestive Heart Failure: - Recent EF measurements: 17% during a recent hospitalization, improved to 35% last week at [facility]. 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 - Experiences persistent fatigue and dyspnea with minimal exertion, such as walking an eighth of a mile. - Noted a weight reduction from over 300 lbs to 280 lbs, attributing the loss to fluid reduction. - Current medications include furosemide, spironolactone, Entresto, and metoprolol. - Reports severe nocturnal muscle cramps with furosemide use, leading to discontinuation. - Expresses concern about potential side effects of Entresto after viewing a commercial. - Inquires about dietary and exercise modifications to improve heart function. Diabetes Mellitus: - Monitors blood glucose levels daily; recent reading of 200 mg/dL after consuming chocolate pie. - Missed medication doses for a month due to insurance issues. - Expresses interest in a continuous glucose monitor but has concerns about potential costs. Hyperlipidemia: - Rep (more content not included)... [facility] 01-19-2025 History of Present illness Narrative Nikolai Nazario DO Board Certified Internal Medicine, Lipidology, Metabolic Medicine and Lifestyle Medicine [facility] Recording using [employer] software for draft documentation of the visit was discussed with the patient/authorized sales representative trainee; all questions welcomed and answered. Patient/authorized sales representative trainee agreed to proceed Date of Evaluation: 01/19/2025 Patient Name: Venkat Marsh : 1965 AGE: [age] year old Race: White Sex: male ASSESSMENT/PLAN: 1. Chronic HFrEF I50.22 (primary diagnosis) - Continue current medications - Encouraged sodium restriction - Encouraged daily weights - Recommend regular aerobic exercise - Smoking cessation encouraged; discussed risks to health and quitting strategies. Patient is ready to quit - NT PRO BNP - [facility]ULT TO [facility] ([facility]) - COMPLETE BLOOD COUNT AND DIFFERENTIAL - COMPREHENSIVE METABOLIC PANEL 2. Tobacco abuse - ICD9: 305.1, ICD10: Z72.0 - Cessation encouraged. - Physiologic and physical aspects of tobacco addiction as well as strategies for quitting were discussed. - Counseling was given focusing on the harmful effects of this addiction especially given the patient's medical condition(s) which will be worsened because of the chemicals in tobacco. - Prescription given - NICOTINE 21 MG/24 HR DAILY TRANSDERMAL PATCH - NICOTINE (POLACRILEX) 4 MG GUM 3. Type 2 diabetes mellitus with diabetic microalbuminuria, with long-term current use of insulin (HCC) - ICD9: 250.40, 791.0, V58.67, ICD10: E11.29, R80.9, Z79.4 - Uncontrolled - Continue current medications - Statin prescribed - rosuvastatin and ezetimibe - Blood glucose monitoring on a once daily schedule - Counseled on healthy diet and regular exercise - Discussed need for and benefit of weight loss. BMI 43.85 kg/(m^2) - ALBUMIN/CREATININE RATIO, URINE - CONSULT TO [facility] (PPG ONLY) - CONSULT TO DIABETES EDUCATION DSME 4. Hypercholesteremia - ICD9: 272.0, ICD10: E78.00 - Reports issues with statin induced myalgia. - Recommend to begin once weekly rosuvastatin with daily ezetimibe to test for tolerance - LIPID PANEL, NONFASTING - LIPOPROTEIN (A) - ROSUVASTATIN 10 MG TABLET - EZETIMIBE 10 MG TABLET 5. Primary hypertension - ICD9: 401.9, ICD10: I10 - Uncontrolled - Continue current medications - Recommend home blood pressure monitoring, to bring results to next visit - Encouraged sodium restriction, DASH or Mediterranean diet - Recommend regular aerobic exercise - Discussed need for and benefit of weight loss. BMI 43.85 kg/(m^2) 6. Coronary artery disease involving [place] coronary artery of [place] heart without angina pectoris - ICD9: 414.01, ICD10: I25.10 - Educated about need for no smoking, controlled sugars, BP < 120/80 and LDL < 50 mg/dL 7. Bipolar 1 disorder (HCC) - ICD9: 296.7, ICD10: F31.9 - Compensated - Continue current medications 8. Obesity, Class III, BMI >= 40 - ICD9: 278.01, ICD10: E66.813 Weight decreasing - Behavioral intervention 9. Pain of right hand - ICD9: 729.5, ICD10: M79.641 - XR HAND GENERAL 3V PA/LAT/OBL RIGHT - CONSULT PANEL TO ORTHOPAEDICS Nikolai Nazario DO Return in about 1 month (around 02/19/2025). Discussed the above with the patient using shared decision making. The patient is in agreement with the diagnostic and treatment plans. Patient to follow-up as advised or sooner if problem worsens or does not resolve. DO Charles Chambers Venkat is a 59-year-old male with a history of CHF, DM, and hyperlipidemia, presenting for an initial visit and medication management. Congestive Heart Failure: - Recent EF measurements: 17% during a recent hospitalization, improved to 35% last week at [facility]. 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 - Experiences persistent fatigue and dyspnea with minimal exertion, such as walking an eighth of a mile. - Noted a weight reduction from over 300 lbs to 280 lbs, attributing the loss to fluid reduction. - Current medications include furosemide, spironolactone, Entresto, and metoprolol. - Reports severe nocturnal muscle cramps with furosemide use, leading to discontinuation. - Expresses concern about potential side effects of Entresto after viewing a commercial. - Inquires about dietary and exercise modifications to improve heart function. Diabetes Mellitus: - Monitors blood glucose levels daily; recent reading of 200 mg/dL after consuming chocolate pie. - Missed medication doses for a month due to insurance issues. - Expresses interest in a continuous glucose monitor but has concerns about potential costs. Hyperlipidemia: - Reports previous muscle cramps with statin use, leading to discontinuation. - Inquires about alternative cholesterol-lowering medications. Tobacco Use: - Current smoker, expresses desire to quit. - Sets a quit date for January 27, after Osvaldo Leyva. - Inquires about nicotine replacement therapy options, including patches and gum. Recent Trauma: - Reports a recent concussion from hitting his head after getting out of bed while dizzy. - Suspects a thumb fracture from the same incident, requesting an x-ray and referral to Dr. Talita Ross for further evaluation. Presents for BP evaluation. Reports compliance with medication. Denies any issues with light head, dizziness, or overwhelming fatigue. Presents for CAD management. Reports compliance with medication and denies side effects. Denies chest pain, chest discomfort with activity, SOBOE, or weakness with activity. PAST MEDICAL HISTORY Diagnosis Date Bipolar 1 disorder ([facility]) psychiatry in [place] CAD S/P percutaneous coronary angioplasty 2011 [place] PCI to LAD in 2011. Dr. Ponce CHF (congestive heart failure) ([facility]) Diabetes mellitus ([facility]) History of acute myocardial infarction HTN (hypertension) Hypercholesteremia Hypothyroidism Morbid obesity with BMI of 45.0-49.9, adult ([facility]) Non-compliant patient ELBERT (obstructive sleep apnea) Tobacco use disorder PAST SURGICAL HISTORY Procedure Laterality Date ANGIOPLASTY 2011 AG STENT, PCI to LAD COLONOSCOPY 2009 ELBOW ARTHROSCOPY/SURGERY 2000 loose body removal lt HAND SURGERY HX Left 2022 KNEE ARTHROSCOPY/SURGERY 1984 loose body removal lt OSTEOTOMY FIBULA Left 1980 PAST SURGICAL HISTORY OF 1988 Rt wrist bone graft PAST SURGICAL HISTORY OF R navicular REPAIR INGUINAL HERNIA 1986 REPAIR NASAL SEPTUM DEFECT 1996 THYROIDECTOMY SUBTOTAL/PARTIAL Right 08/2008 TONSILLECTOMY PRIMARY/SECONDARY <AGE 10 Tonsillectomy Social History Tobacco Use Smoking status: Every Day Current packs/day: 0.50 Average packs/day: 0.5 packs/day for 40.7 years (20.4 ttl pk-yrs) Types: Cigarettes Start date: 04/21/2023 Smokeless tobacco: Never Vaping Use Vaping status: Never Used Substance Use Topics Alcohol use: No Drug use: No ALLERGIES Allergen Reactions Amoxicillin-Pot Cla* Anaphylaxis, Swelling Doxycycline Unknown Lisinopril Cough Sulfamethoxazole-Tr* Rash, Hives, Swelling Trimethoprim Swelling Current Outpatient Medications Medication Sig spironolactone (ALDACTONE) 25 mg tablet Take 25 mg by mouth once daily. furosemide (LASIX) 20 mg tablet Take 40 mg by mouth once daily. loratadine (CLARITIN) 10 mg tablet Take 10 mg by mouth once daily. Benzonatate 200 mg capsule Take 200 mg by mouth three times a day as needed. dapagliflozin propanediol (FARXIGA) 10 mg tablet Take by mouth daily with breakfast. sacubitril-valsartan (ENTRESTO) 49-51 mg tablet Take 1 tablet by mouth two times a day. diphenhydrAMINE (BANOPHEN) 25 mg capsule Take 25 mg by mouth three times a day as needed. mirtazapine (REMERON) 15 mg tablet Take 1 tablet by mouth daily at bedtime. traZODone (DESYREL) 100 mg tablet Take 1 tablet by mouth daily at bedtime. predniSONE (DELTASONE) 20 mg tablet Take 40 mg by mouth once daily. aspirin, enteric coated (ASPIRIN, ENTERIC COATED) 81 mg EC tablet Take 1 tablet by mouth once daily. metoprolol succinate ER (TOPROL XL) 25 mg 24 hr tablet Take 1 tablet by mouth once daily. BD SAFETYGLIDE INSULIN SYRINGE 0.5 mL 30 gauge x 5/16 syrg Inject 1 Each subcutaneously every 24 hours. Give with each insulin administration. dulaglutide (TRULICITY) 1.5 mg/0.5 mL pen injector Inject 1.5 mg subcutaneously one time a week. Monitor bs closely and keep food log albuterol HFA (PROVENTIL HFA, VENTOLIN HFA) 90 mcg/actuation inhaler Inhale 2 Puffs as instructed every 4 hours as needed for wheezing/shortness of breath. metFORMIN (GLUCOPHAGE) 1,000 mg tablet Take 1 tablet by mouth two times a day. levothyroxine (SYNTHROID) 125 mcg tablet Take 1 tablet by mouth daily before breakfast. Insulin Whitman, Disposable, (PEN NEEDLE) 32 gauge x 5/32 Inject 1 Each subcutaneously every 24 hours. Give with each insulin administration. insulin glargine 100 unit/mL (3 mL) Inject 20 Units subcutaneously daily at bedtime. Inject 20 Units subcutaneously as directed magnesium, aluminum hydroxide (MYLANTA ORAL) Take 5 mL by mouth two times a day as needed (heartburn). rosuvastatin (CRESTOR) 10 mg tablet Take 1 tablet by mouth one time a week. ezetimibe (ZETIA) 10 mg tablet Take 1 tablet by mouth once daily. fluticasone (FLONASE) 50 mcg/actuation nasal spray Use 1 spray in each nostril daily at bedtime. nicotine (NICODERM CQ) 21 mg/24 hr Apply 1 patch as directed every 24 hours. nicotine polacrilex (NICORETTE) 4 mg gum Take 1 each by mouth as needed. No current facility-administered medications for this visit. I have confirmed and edited as necessary the chief complaint, medications, past medical, family and social histories obtained by others. Constitutional: (+) fatigue, (+) sleep disturbance Cardiovascular: (+) leg swelling Respiratory: (+) dyspnea on exertion Musculoskeletal: (+) muscle cramps, (+) thumb pain Tests - (Last week) Ejection Fraction Measurement: 35% - Ejection Fraction Measurement: 17% BP 139/87 Pulse 99 Temp (Src) 97.6 (Temporal) Resp 18 Ht 5' 7 (1.70m) Wt 280 lb (127.0kg) SpO2 96% BMI 43.84 kg/(m^2). Physical Exam General: alert, no distress, calm HRRR LCTA Ext without edema I have reviewed most pertinent studies and notes. documented in this encounter [facility] 01-19-2025 Instructions Nikolai Nazario DO - 01/19/2025 11:42 AM EDT Home instructions for heart failurePatient instruction for managing heart failure. GREEN ZONE Doing well today Weight gained is no more than 3 pounds a day or 5 pounds a week. No swelling in feet, ankles, legs or stomach. No more swelling than usual. No more trouble breathing than usual. No change in my sleep. No other problems. Actions: I am doing fine. I will take my medicine, follow my diet, see my doctor, exercise, and watch for symptoms YELLOW ZONE Having a bad day or flare up Weight gained of more than 3 pounds in one day or 5 pounds in one week. New swelling in ankle, leg, knee, or thigh. Bloating in belly, pants feel tighter. Swelling in hands or face. Coughing or trouble breathing while walking or talking. Harder to breathe last night. Have trouble sleeping, wake up short of breath. Much more tired than usual. Not eating. Pain in my chest or bad leg cramps. Feel weak or dizzy. Signs and symptoms of Dehydration: dark and/or less urine, dry cracked mouth/skin, lethargic, lightheaded, dizzy, low blood pressure readings with high heart rate Actions: I need to take action and call my doctor or nurse today. RED ZONE NEED MEDICAL CARE NOW Weight gain of 5 pounds overnight. Chest pain or pressure that does not go away. Feel less alert. Wheezing or have trouble breathing when at rest. Cannot sleep lying down. Cannot take my water pill. Pass out or faint. ACTIONS I need to call my doctor or nurse now! Call 911 if I have chest pain or cannot breathe GREEN ZONE Doing well today Weight gained is no more than 3 pounds a day or 5 pounds a week. No swelling in feet, ankles, legs or stomach. No more swelling than usual. No more trouble breathing than usual. No change in my sleep. No other problems. Actions: I am doing fine. I will take my medicine, follow my diet, see my doctor, exercise, and watch for symptoms YELLOW ZONE Having a bad day or flare up Weight gained of more than 3 pounds in one day or 5 pounds in one week. New swelling in ankle, leg, knee, or thigh. Bloating in belly, pants feel tighter. Swelling in hands or face. Coughing or trouble breathing while walking or talking. Harder to breathe last night. Have trouble sleeping, wake up short of breath. Much more tired than usual. Not eating. Pain in my chest or bad leg cramps. Feel weak or dizzy. Signs and symptoms of Dehydration: dark and/or less urine, dry cracked mouth/skin, lethargic, lightheaded, dizzy, low blood pressure readings with high heart rate Actions: I need to take action and call my doctor or nurse today. RED ZONE NEED MEDICAL CARE NOW Weight gain of 5 pounds overnight. Chest pain or pressure that does not go away. Feel less alert. Wheezing or have trouble breathing when at rest. Cannot sleep lying down. Cannot take my water pill. Pass out or faint. ACTIONS I need to call my doctor or nurse now! Call 911 if I have chest pain or cannot breathe documented in this encounter [facility] 01-19-2025 Note HNO ID: [id number] Author: ?, ?, ? Service: ? Author Type: ? Type: Progress Notes Filed: 01/19/2025 11:41 Note Text: POPULATION HEALTH NAVIGATION OUTREACH Action/ Patient replied to [employer] from 12/21, has a new pcp. Messaged pt to update provider info. Reason for Outreach Returned Call/MyChart Patient Contacted: Spoke to patient/parent/or legal guardian Patient identified by name and date of : Yes Returned call/MyChart actions taken: [employer] message sent Navigation Signature: Sandra Khoury Pss January 19, 2025 11:38 AM [facility] 01-19-2025 Telephone encounter Note PT returned your call [facility] 01-19-2025 Telephone encounter Note TC to Pt no answer [facility] 01-18-2025 Telephone encounter Note Discharged with heart failure. Needs 72 hour post discharge phone call. [facility] Work Phone: 01-17-2025 Note HNO ID: [id number] Author: TE RAMOS RN Service: ? Author Type: Registered Nurse Type: Progress Notes Filed: 01/17/2025 10:54 Note Text: Summary: Chart review per payor request. ACCristobal NAYA RN Patient identified by name and date of . Reason for review or outreach: Chart Review [facility] Priority Emergency Department Utilization REQUESTED ACTION/FYI: Please see ED Utilization summary below *Noted patient was admitted* Utilization in past 12 months # Occurrences Date Last Occurrence Hospital Admission 2 11/30/2024 Hospital Observation 0 0 ED 8 01/13/2025 SNF / Acute Rehab / LTAC 0 0 ED DIAGNOSES/REASON(S) FOR ED USE: CHF/breathing issues OTHER FINDINGS/SUMMARY: Noted patient had been admitted via Care Everywhere after further research. Admitted to [facility]. Signature: Te Ramos RN [facility] 01-17-2025 History of Present illness Narrative Summary: Chart review per payor request. ACM NAYA RN Patient identified by name and date of . Reason for review or outreach: Chart Review Naya Priority Emergency Department Utilization REQUESTED ACTION/FYI: Please see ED Utilization summary below *Noted patient was admitted* Utilization in past 12 months # Occurrences Date Last Occurrence Hospital Admission 2 11/30/2024 Hospital Observation 0 0 ED 8 01/13/2025 SNF / Acute Rehab / LTAC 0 0 ED DIAGNOSES/REASON(S) FOR ED USE: CHF/breathing issues OTHER FINDINGS/SUMMARY: Noted patient had been admitted via Care Everywhere after further research. Admitted to [facility]. Signature: Te Ramos RN documented in this encounter [facility] 01-17-2025 Note Formatting of this n ote might be different from the original. Care Management Progress Note Patient to be DC today. Length of Stay (Days): 0 GMLOS: No GMLOS Documented [facility] 01-17-2025 Note Formatting of this n ote might be different from the original. Care Management Progress Note Patient to be DC today. Length of Stay (Days): 0 GMLOS: No GMLOS Documented [facility] 01-17-2025 Note Care Management Prog ress Note Patient to be DC today. Length of Stay (Days): 0 GMLOS: No GMLOS Documented [facility] 01-17-2025 Miscellaneous Notes Care Management Progress Note Patient to be DC today. Length of Stay (Days): 0 GMLOS: No GMLOS Documented Response from Dr. Hernandez, tell him he has to stay, the day team will be in I\about 1 hr. Someone will be there around 7: 00 am I will let them know at signout . Will tell the pt but the pt states he needs to be home by 8. Messaged Dr. Wells and Dr. Hernandez; Pt is ready to leave AMA. He waited all day yesterday and has things to do today. He doesn't think he can wait till the doctors round today. 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 HF after school program teacher: Met with pt for HF education. Topics covered include: Low sodium diet and 2L fluid restriction, how and when to obtain daily weight with weight parameters, HF signs and symptoms, self-monitoring/management with HF Zones tool, how/when to contact Cardiology, activity, pathophysiology of condition, prognosis, purpose of medications and side effects, importance of close follow-up with provider. [facility] benefits: 13/04 provider access via the anwering service and PRN IV/IM lasix and same day/urgent appts for new/worsening symptoms. Discussed the importance of comorbidity management (obesity, diabetes ELBERT). Information on SHWMI and ELBERT added to AVS. Encouraged pt to use a fitness taco to track daily weight, sodium and fluid intake. Pt with about 5 empty coffee cups at bedside during educational session. Reviewed the need to limit fluids to ~ 2L/day. Pt has a scale, but has not been using it. Notified by [facility] RN that pt not eligible for [facility] at this time as he drives and has no PCP, but pt requesting physical therapy. S.C. to Sabrina Kam PA-C to request a Cardiac Rehab referral for LVEF < 35%. Added instructions to AVS for pt to find a new PCP on [email or web address] or to call [facility] as pt previously liked being seen at the resident clinic at [facility]. Teach back for all education received. HF booklet provided. Spoke with pt regarding PT recs for home care and SN for CHF education, med management, etc., and pt agreeable, but he stated he does not have a PCP currently, which is a barrier to setting up home care. Pt also stated he drives and is not homebound. Suggested pt look into outpatient PT and/or heart failure clinic for education. Message sent to heart failure coordinator and Dr Bahena updated by [facility]. Spoke with patient regarding PT recommendations for home health PT. He agreed. liaison planner aware. Problem: Knowledge Deficit Goal: Patient/family/caregiver demonstrates understanding of disease process, treatment plan, medications, and discharge instructions Outcome: Progressing Problem: Hemodynamic Status Goal: Patient's vitals signs are stable Outcome: Progressing Problem: Excessive Fluid Volume Goal: Fluid and electrolyte balance are achieved/maintained Outcome: Progressing Care Management Progress Note Reviewed chart. From home. Cardiology following. Bumex IVP. Echo 35%. Plan to DC to home when medically stable. Will follow. Length of Stay (Days): 0 GMLOS: No GMLOS Documented Problem: Knowledge Deficit Goal: Patient/family/caregiver demonstrates understanding of disease process, treatment plan, medications, and discharge instructions Outcome: Progressing Problem: Hemodynamic Status Goal: Patient's vitals signs are stable Outcome: Progressing Problem: Excessive Fluid Volume Goal: Fluid and electrolyte balance are achieved/maintained Outcome: Progressing Problem: Inadequate Gas Exchange Goal: Patient is adequately oxygenated and ventilation is improved Outcome: Progressing Goal: Nutritional status is improving Outcome: Progressing Problem: Activity Intolerance/Impaired Mobility Goal: Mobility/activity is maintained at optimum level for patient Outcome: Progressing Problem: Nutrition Goal: Nutritional status is improving Outcome: Progressing Problem: Potential for Falls Goal: I will remain free of falls Outcome: Progressing Problem: Discharge Barriers Goal: My discharge needs are met Outcome: Progressing Problem: Knowledge Deficit Goal: Patient/family/caregiver demonstrates understanding of disease process, treatment plan, medications, and discharge instructions Outcome: Progressing Problem: Hemodynamic Status Goal: Patient's vitals signs are stable Outcome: Progressing Problem: Excessive Fluid Volume Goal: Fluid and electrolyte balance are achieved/maintained Outcome: Progressing Problem: Knowledge Deficit Goal: Patient/family/caregiver demonstrates understanding of disease process, treatment plan, medications, and discharge instructions Outcome: Progressing Problem: Hemodynamic Status Goal: Patient's vitals signs are stable Outcome: Progressing Problem: Excessive Fluid Volume Goal: Fluid and electrolyte balance are achieved/maintained Outcome: Progressing Problem: Inadequate Gas Exchange Goal: Patient is adequately oxygenated and ventilation is improved Outcome: Progressing Goal: Nutritional status is improving Outcome: Progressing Problem: Activity Intolerance/Impaired Mobility Goal: Mobility/activity is maintained at optimum level for patient Outcome: Progressing Problem: Nutrition Goal: Nutritional status is improving Outcome: Progressing Problem: Potential for Falls Goal: I will remain free of falls Outcome: Progressing Problem: Discharge Barriers Goal: My discharge needs are met Outcome: Progressing Problem: Knowledge Deficit Goal: Patient/family/caregiver demonstrates understanding of disease process, treatment plan, medications, and discharge instructions Outcome: Progressing Problem: Hemodynamic Status Goal: Patient's vitals signs are stable Outcome: Progressing Problem: Excessive Fluid Volume Goal: Fluid and electrolyte balance are achieved/maintained Outcome: Progressing documented in this encounter [facility] 01-17-2025 Nurse Note Discharge instructions reviewed with patient. All questions answered. Pt discharged to home with all belongings. [facility] 01-17-2025 Nurse Note Discharge instructions reviewed with patient. All questions answered. Pt discharged to home with all belongings. pt adamant on leaving. Dr. Christie messaged via secure chat. Stated patient can be discharged. This RN asked him about not having a PCP Dr. Christie states patient can follow up with cardiology for now. Will update patient. Gave pt another urinal to use and educated him on the importance of measuring his urine output while being on IV bumex. Pt voiced understanding. At 2200, I went in to check on the pt and he was using the bathroom, when he came out he still did not use the urinal. Education was again provided. documented in this encounter [facility] 01-17-2025 Nurse Note pt adamant on leaving. Dr. Christie messaged via secure chat. Stated patient can be discharged. This RN asked him about not having a PCP Dr. Christie states patient can follow up with cardiology for now. Will update patient. [facility] 01-17-2025 occupational health and safety manager Note Response from Dr. Hernandez, tell him he has to stay, the day team will be in I\about 1 hr. Someone will be there around 7: 00 am I will let them know at signout . Will tell the pt but the pt states he needs to be home by 8. [facility] 01-17-2025 occupational health and safety manager Note Messaged Dr. Wells and Dr. Hernandez; Pt is ready to leave [place]. He waited all day yesterday and has things to do today. He doesn't think he can wait till the doctors round today. 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 [facility] 01-17-2025 Note Patient Outreach ([facility]) VENKAT MARSH ([id number]) 1965 M Date Time Provider Department 01/17/25 TE RAMOSKrzysztof During your visit today, we recorded the following information about you: Te Ramos, RN 01/17/2025 10:54 AM Signed ACM NAYA RN Patient identified by name and date of . Reason for review or outreach: Chart Review Naya Priority Emergency Department Utilization REQUESTED ACTION/FYI: Please see ED Utilization summary below *Noted patient was admitted* Utilization in past 12 months # Occurrences Date Last Occurrence Hospital Admission 2 11/30/2024 Hospital Observation 0 0 ED 8 01/13/2025 SNF / Acute Rehab / LTAC 0 0 ED DIAGNOSES/REASON(S) FOR ED USE: CHF/breathing issues OTHER FINDINGS/SUMMARY: Noted patient had been admitted via Care Everywhere after further research. Admitted to [facility]. Signature: Te Ramos RN Allergies As of Date: 01/17/2025 Noted Allergy Reaction AMOXICILLIN-POT CLAVULANATE 12/23/2023 10 - Anaphylaxis 7 - Swelling DOXYCYCLINE 11/09/2024 16 - Unknown LISINOPRIL 04/24/2023 3 - Cough SULFAMETHOXAZOLE-TRIMETHOPRIM 10/20/2009 2 - Rash 4 - Hives 7 - Swelling TRIMETHOPRIM 09/04/2023 7 - Swelling Date Reviewed: 12/08/2024 Reviewed by: Issac Xiao MD - Fully Assessed Reason for Visit: ACM NAYA RN [[id number]] Cmt: Chart review per payor request. Prescriptions as of 01/17/2025 - mirtazapine (REMERON) 15 mg tablet Take 1 tablet by mouth daily at bedtime. - traZODone (DESYREL) 100 mg tablet Take 1 tablet by mouth daily at bedtime. - azithromycin (ZITHROMAX) 250 mg tablet Take 1 tablet by mouth once daily. - predniSONE (DELTASONE) 20 mg tablet Take 40 mg by mouth once daily. - aspirin, enteric coated (ASPIRIN, ENTERIC COATED) 81 mg EC tablet Take 1 tablet by mouth once daily. - amLODIPine (NORVASC) 2.5 mg tablet Take 1 tablet by mouth once daily. - metoprolol succinate ER (TOPROL XL) 25 mg 24 hr tablet Take 1 tablet by mouth once daily. - BD SAFETYGLIDE INSULIN SYRINGE 0.5 mL 30 gauge x 5/16 syrg Inject 1 Each subcutaneously every 24 hours. Give with each insulin administration. - dulaglutide (TRULICITY) 1.5 mg/0.5 mL pen injector Inject 1.5 mg subcutaneously one time a week. Monitor bs closely and keep food log - albuterol HFA (PROVENTIL HFA, VENTOLIN HFA) 90 mcg/actuation inhaler Inhale 2 Puffs as instructed every 4 hours as needed for wheezing/shortness of breath. - empagliflozin (JARDIANCE) 10 mg tablet Take 1 tablet by mouth daily with breakfast. - metFORMIN (GLUCOPHAGE) 1,000 mg tablet Take 1 tablet by mouth two times a day. - levothyroxine (SYNTHROID) 125 mcg tablet Take 1 tablet by mouth daily before breakfast. - Insulin Whitman, Disposable, (PEN NEEDLE) 32 gauge x 5/32 Inject 1 Each subcutaneously every 24 hours. Give with each insulin administration. - insulin glargine 100 unit/mL (3 mL) Inject 20 Units subcutaneously daily at bedtime. Inject 20 Units subcutaneously as directed - magnesium, aluminum hydroxide (MYLANTA ORAL) Take 5 mL by mouth two times a day as needed (heartburn). Meds Comments as of 10/23/2023: 10/23/23 The medications are managed by this patient by: PATIENT OPHELIA Crooks Problem List As Of Date 01/17/2025 Noted Resolved CAD (coronary artery disease) [I25.10] 09/04/2014 S/P coronary artery stent placement [Z95.5] 09/04/2014 Left bundle branch block (LBBB) on electrocardi*09/04/2014 H/O myocardial infarction, greater than 8 weeks*09/04/2014 Tobacco abuse [Z72.0] 09/04/2014 Obesity [E66.9] 09/04/2014 Status post insertion of drug-eluting stent int*11/17/2016 Non morbid obesity due to excess calories [E66.*11/17/2016 Obesity, Class III, BMI >= 40 [E66.813] 05/11/2023 Hypercholesteremia [E78.00] HTN (hypertension) [I10] Schizoaffective disorder, bipolar type (HCC) [F*09/10/2023 11/02/2023 Cocaine dependence in remission ([facility]) [F14.21] 09/10/2023 Hypothyroidism [E03.9] Diabetes mellitus (HCC) [E11.9] Cataract, nuclear sclerotic, both eyes [H25.13] 10/23/2023 Hyperopia of both eyes [H52.03] 10/23/2023 Regular astigmatism of both eyes [H52.223] 10/23/2023 Presbyopia of both eyes [H52.4] 10/23/2023 Mood disorder (HCC) [F39] 11/02/2023 Acute systolic HF (heart failure) (HCC) [I50.21]04/13/2024 Acute on chronic systolic (congestive) heart fa*04/13/2024 04/15/2024 Atrial fib/flutter, transient (HCC) [I48.91, I4*04/14/2024 Mixed hyperlipidemia [E78.2] 04/14/2024 Morbid obesity (HCC) [E66.01] 04/14/2024 Essential hypertension [I10] 04/14/2024 Chronic HFrEF (heart failure with reduced eject*04/14/2024 Typical atrial flutter (HCC) [I48.3] 04/15/2024 Non-compliant patient [Z91.199] Encounter Status:Closed by TE RAMOS on 01/17/25 [facility] 01-16-2025 Note Formatting of this n ote might be different from the original. HF after school program teacher: Met with pt for HF education. Topics covered include: Low sodium diet and 2L fluid restriction, how and when to obtain daily weight with weight parameters, HF signs and symptoms, self-monitoring/management with HF Zones tool, how/when to contact Cardiology, activity, pathophysiology of condition, prognosis, purpose of medications and side effects, importance of close follow-up with provider. [facility] benefits: 13/04 provider access via the anwering service and PRN IV/IM lasix and same day/urgent appts for new/worsening symptoms. Discussed the importance of comorbidity management (obesity, diabetes ELBERT). Information on SHWMI and ELBERT added to AVS. Encouraged pt to use a fitness taco to track daily weight, sodium and fluid intake. Pt with about 5 empty coffee cups at bedside during educational session. Reviewed the need to limit fluids to ~ 2L/day. Pt has a scale, but has not been using it. Notified by [facility] RN that pt not eligible for [facility] at this time as he drives and has no PCP, but pt requesting physical therapy. S.C. to Sabrina Kam PA-C to request a Cardiac Rehab referral for LVEF < 35%. Added instructions to AVS for pt to find a new PCP on [email or web address] or to call the [facility] as pt previously liked being seen at the resident clinic at [facility]. Teach back for all education received. HF booklet provided. [facility] 01-16-2025 Note Formatting of this n ote might be different from the original. HF after school program teacher: Met with pt for HF education. Topics covered include: Low sodium diet and 2L fluid restriction, how and when to obtain daily weight with weight parameters, HF signs and symptoms, self-monitoring/management with HF Zones tool, how/when to contact Cardiology, activity, pathophysiology of condition, prognosis, purpose of medications and side effects, importance of close follow-up with provider. [facility] benefits: 13/04 provider access via the [employer] service and PRN IV/IM lasix and same day/urgent appts for new/worsening symptoms. Discussed the importance of comorbidity management (obesity, diabetes ELBERT). Information on SHWMI and ELBERT added to AVS. Encouraged pt to use a fitness taco to track daily weight, sodium and fluid intake. Pt with about 5 empty coffee cups at bedside during educational session. Reviewed the need to limit fluids to ~ 2L/day. Pt has a scale, but has not been using it. Notified by [facility] RN that pt not eligible for [facility] at this time as he drives and has no PCP, but pt requesting physical therapy. S.C. to Sabrina Kam PA-C to request a Cardiac Rehab referral for LVEF < 35%. Added instructions to AVS for pt to find a [email or web address] or to call the [facility] as pt previously liked being seen at the resident clinic at [facility]. Teach back for all education received. HF booklet provided. [facility] 01-16-2025 Note HF after school program teacher: Met with pt for HF education. Topics covered include: Low sodium diet and 2L fluid restriction, how and when to obtain daily weight with weight parameters, HF signs and symptoms, self-monitoring/management with HF Zones tool, how/when to contact Cardiology, activity, pathophysiology of condition, prognosis, purpose of medications and side effects, importance of close follow-up with provider. [facility] benefits: 13/04 provider access via the anwering service and PRN IV/IM lasix and same day/urgent appts for new/worsening symptoms. Discussed the importance of comorbidity management (obesity, diabetes ELBERT). Information on SHWMI and ELBERT added to AVS. Encouraged pt to use a fitness taco to track daily weight, sodium and fluid intake. Pt with about 5 empty coffee cups at bedside during educational session. Reviewed the need to limit fluids to ~ 2L/day. Pt has a scale, but has not been using it. Notified by [facility] RN that pt not eligible for [facility] at this time as he drives and has no PCP, but pt requesting physical therapy. S.C. to Sabrina Kam PA-C to request a Cardiac Rehab referral for LVEF < 35%. Added instructions to AVS for pt to find a new PCP on [email or web address] or to call the [facility] as pt previously liked being seen at the resident clinic at [facility]. Teach back for all education received. HF booklet provided. [facility] 01-16-2025 Hospital Discharge instructions Cynthia Monroe RN - 01/16/2025 4:29 PM EDT To find a PCP- go to [email or web address] and click on Find a Doctor. You can see a list of providers with availability and reviews. You may also call the Internal Medicine Center if you would like to be in a resident (email marketing intern) type clinic like you were at [facility]: [phone] My Heart Failure Action Plan Use the below chart as a guide for daily symptom monitoring after you obtain your morning weight. My Procedure Tech: [facility] Sabrina Kam PA-C [phone] Same day/urgent appointments available for new or worsening symptoms (yellow zone below). 13/04 access to a provider by calling the office phone! My Diagnosis: Heart failure with reduced ejection fraction My Ejection Fraction: ~35% (17% in 2023) NORMAL 50-65% My Exercise Goal: as tolerated My Weight Goal: Standing weight day of hospital discharge Weigh yourself daily using the same scale. If you gain more than 3 pounds in 24 hours or 5 pounds in a week Call your Procedure Tech!! My Diet Goal: General diet recommendations for heart failure patients are less than 2,000mg sodium and less than 2 liters of fluid per day. This will help with symptoms of fluid retention, such as swelling and shortness of breath. See provider orders for additional/alternative recommendations. Emergency Room Visits: Our goal is to improve your quality of life and help you avoid a visit to the emergency room or hospital. If we work together, we can achieve this goal. But, if you feel you need to call 911 or go to the emergency room, please do so. If you go to the emergency room, please bring your list of medicines and your daily weight chart with you. GREEN ZONE Doing well today Weight gained is no more than 3 pounds a day or 5 pounds a week. No swelling in feet, ankles, legs or stomach. No more swelling than usual. No more trouble breathing than usual. No change in my sleep. No other problems. Actions: I am doing fine. I will take my medicine, follow my diet, see my doctor, exercise, and watch for symptoms YELLOW ZONE Having a bad day or flare up Weight gained of more than 3 pounds in one day or 5 pounds in one week. New swelling in ankle, leg, knee, or thigh. Bloating in belly, pants feel tighter. Swelling in hands or face. Coughing or trouble breathing while walking or talking. Harder to breathe last night. Have trouble sleeping, wake up short of breath. Much more tired than usual. Not eating. Pain in my chest or bad leg cramps. Feel weak or dizzy. Signs and symptoms of Dehydration: dark and/or less urine, dry cracked mouth/skin, lethargic, lightheaded, dizzy, low blood pressure readings with high heart rate Actions: I need to take action and call my doctor or nurse today. RED ZONE NEED MEDICAL CARE NOW Weight gain of 5 pounds overnight. Chest pain or pressure that does not go away. Feel less alert. Wheezing or have trouble breathing when at rest. Cannot sleep lying down. Cannot take my water pill. Pass out or faint. ACTIONS I need to call my doctor or nurse now! Call 911 if I have chest pain or cannot breathe. [facility] BMI (Body Mass Index) is simply the relationship between a person s weight and height. It is useful in determining the degree to which a person s body weight may impact their risk for disease or . Studies have shown that the higher your BMI is, the higher your risk for certain conditions, such as high blood pressure, heart failure, irregular heart rhythms, diabetes, arthritis, GERD and more. The degree to which these conditions become life-threatening is directly proportional to a patient s BMI. Your BMI: Body mass index is 44.2 kg/m . Understanding your BMI BMI Weight Status Below 18.5 kg/m2 Underweight 18.5-24.9 kg/m2 Normal 25.0-29.9 kg/m2 Overweight 30.0 and 34.9 kg/m2 Moderately Obese 35-39.9 kg/m2 Severly Obese 40+ Extremely Obese The [facility] has been helping people lose weight since 2003. Since our inception, we have promoted a physician-driven, team-based approach to weight loss. There are numerous quick fixes on the market, none resulting in long-term significant weight loss. While it is appealing to think of taking a pill to miraculously and effortlessly melt away the pounds, the reality is that it takes hard work and time to undo the eating behaviors and choices that lead to obesity. A Weight Loss Option for Everyone The [facility] offers many options for weight loss. We understand that readiness to lose weight varies from one person to the next, so we offer a continuum of services starting with lower intensity options with a dietitian, and then including behavioral, medical and surgical options. All of our higher intensity services are designed to take place with a physician or data review specialist to make sure you get the level of care that you need. Surgical and Medical Weight Loss Options Our medical and surgical services are medically supervised weight loss options because your primary provider is a physician or surgeon. Depending upon the degree of your obesity and the level of knowledge you have regarding the options for addressing it, we can help you decide which of our weight management programs best fits your needs. All patients of the [facility] experience a clinician-driven solution, with the assistance of our team of registered dietitians, clinical psychologists, clinical exercise specialists, physicians and surgeons. We believe that patients struggling with excess weight, whether in the early (pre-obese) or late stages of the disease, require a multidisciplinary solution. The reasons for obesity are many and varied, and as such require a personalized solution and life-long support. We work with each individual to achieve the best possible outcome. Learn more about obesity and the risks on your health at [email or web address] Or call for information: New Patient Appointments: [phone] Nutrition/Dietitian Appointments: [phone] The following attachments cannot be sent through Care Everywhere.Obstructive Sleep Apnea Discharge Instructions, Adult (Mongolian)documented in this encounter [facility] 01-16-2025 Note Formatting of this n ote might be different from the original. Spoke with pt regarding PT recs for home care and SN for CHF education, med management, etc., and pt agreeable, but he stated he does not have a PCP currently, which is a barrier to setting up home care. Pt also stated he drives and is not homebound. Suggested pt look into outpatient PT and/or heart failure clinic for education. Message sent to heart failure coordinator and Dr Bahena updated by [place] [employer]. [facility] 01-16-2025 Note Formatting of this n ote might be different from the original. Spoke with pt regarding PT recs for home care and SN for CHF education, med management, etc., and pt agreeable, but he stated he does not have a PCP currently, which is a barrier to setting up home care. Pt also stated he drives and is not homebound. Suggested pt look into outpatient PT and/or heart failure clinic for education. Message sent to heart failure coordinator and Dr Bahena updated by [place] [employer]. [facility] 01-16-2025 Note Spoke with pt regard ing PT recs for home care and SN for CHF education, med management, etc., and pt agreeable, but he stated he does not have a PCP currently, which is a barrier to setting up home care. Pt also stated he drives and is not homebound. Suggested pt look into outpatient PT and/or heart failure clinic for education. Message sent to heart failure coordinator and Dr Bahena updated by [facility]. [facility] 01-16-2025 Note Patient declined smo igor cessation counseling and handout with contact information. [facility] 01-16-2025 History of Present illness Narrative Patient declined smoking cessation counseling and handout with contact information. Images from the original note were not included. PHYSICAL THERAPY [facility] Initial Evaluation Name/MRN: Shadi Marsh ([id number]) Evaluation Date: 01/16/2025 Date of : 1965 Admission Date: 01/13/2025 5:24 PM Age: 59 y.o. [facility]: [facility] Discharge Recommendation: Home with Home health PT Equipment Needed: No Assessment IMPRESSION: Pt admitted with SOB, LE edema and CHF exacerbation. Pt presents with decreased functional mobility, decreased strength, decreased endurance and impaired balance. Pt has decreased standing balance requiring 1 person for safety at this time placing him at an increased risk of falling. Pt could benefit from continued PT in order to address his decreased functional mobility, strength, balance and safety. Pt has medical history as indicated below that contributes to his clinical presentation. At baseline patient is functionally independent with no device. Currently patient is SBA/close supervision with no device and is anticipated to progress with acute therapies and medical management in order to return home with assist and [facility] PT. Admitting Diagnosis: Pt admitted with SOB, LE edema and CHF exacerbation. Prognosis: good Performance Deficits /Impairments: Decreased Functional Mobility, Decreased Strength, Decreased Endurance, and Decreased Balance Decision Making: Medium Complexity Subjective Patient very pleasant and agreeable to therapy session this date. Per RN patient okay for therapy. Observation: tele intact Vitals SpO2 >92% on room air throughout exertion HR 84 - 108 bpm with exertion Pain: Pt denies any current pain. Past Medical History: Past Medical History: Diagnosis Date CAD (coronary artery disease) CHF (congestive heart failure) ([facility]) Depression Hyperlipidemia Hypertension OK (mitral incompetence) Past Surgical History: Past Surgical History: Procedure Laterality Date CORONARY ANGIOPLASTY WITH STENT PLACEMENT Admission Diagnosis: Patient Active Problem List Diagnosis Date Noted Acute congestive heart failure, unspecified heart failure type ([facility]) 01/13/2025 Medical Precautions: No active isolations Proper PPE donned/doffed in accordance with facility standards. Fall Risk: José Fall Risk Score: 35 (Low Risk) José Fall Risk Score: 35 (Medium Risk) Precautions/Restrictions: N/A Family/Caregiver Present: none Overall Cognitive Status: WFL Overall Orientation Status: Oriented x4 Vision: wears glasses for reading and and are being used during the eval Hearing: normal Social/Functional History Patient admitted from home. Lives With: Alone Type of Home: apartment Home Layout: Single Level Home Home Access: Level Entry Bathroom Shower/Tub: Tub/Shower Combo Toilet: Standard and Grab Bars Home Equipment: none Homemaking Responsibilities: Independent Receives Help From: None Active Medicare Coordinator: Yes Prior Level of Function Prior Level of ADL Function: Independent Prior Level of Mobility: Independent; Device: None Prior Level of Transfers: Independent Objective Lower Extremity Assessment AROM: WFL Strength: Pt demonstrates appropriate B LE and quad strength in order to safely participate in OOB mobility, generalized weakness noted Bed Mobility: NT patient sitting EOB pre/post session Transfers Sit to stand: Supervision, to no device from EOB Stand to sit: Supervision Denies dizziness on initial stance. No true LOB or instability noted on initial stance. Postural sway observed. Ambulation Ambulation 1 Assistive device(s) used: None Assist level: Supervision, SBA Distance (ft): 250 ft x 1 Quality of gait: No LOB, reciprocal stepping, B foot clearance, uneven step length, slow rex, postural sway, path deviations Pt demonstrates increasing postural sway and path deviations with increased distance and fatigue. No true LOB noted. Pt reports fatigue with this distance, however no SOB and vitals WFL. Heart Failure on Admission Dyspnea: No Heart failure diagnosis: Yes dyspnea with moderate exertion Outcome Measures AM-PAC How much HELP from another person do you currently need Turning from your back to your side while in a flat bed without using bedrails?: A Little Moving from lying on your back to sitting on the side of a flat bed without using bedrails?: A Little Moving to and from a bed to a chair (including a wheelchair)?: A Little Standing up from a chair using your arms (wheelchair or bedside chair)?: A Little Walking in a hospital room?: A Little Stair climbing assessed?: No AM-PAC Inpatient Mobility Raw Score (No Stairs) : 15 [facility] Score: Walked 25 ft or more (i.e. walked outside of room) Plan Pt would benefit from skilled acute PT services to address Strengthening, ROM, Gait Training, Balance Training, Self-Care/ADL Training, Functional Mobility Training, Endurance Training, Safety Education and Training, Equipment Evaluation/Education, Home Management Training, and Patient/Caregiver Training. Frequency: 3x/week for 2 weeks Barriers: Decreased endurance Safety/Education Safety Safety Devices in place: All fall risk precautions in place, call light within reach, left in bed, gait belt, patient at risk for falls, nurse notified, no alarms engaged upon entry, and patient left sitting EOB Restraints: N/A Education Education Given To: patient Education Provided: PT Role, PT Goals, Gait Training, Plan of Care, Fall Prevention Education, Discharge Recommendations, and Benefits of Increasing Activity Education Method: Verbal, Demonstration, and Teach Back Barriers to Learning: None Education Outcome: Verbalized Understanding, Demonstrated Understanding, and Continued Education Needed Goals Patient Stated Goal: Patient states he wants to prioritize his health and walk more. Encounter Problems Encounter Problems (Active) Balance Patient will maintain dynamic standing balance for 8 minutes with modified independence in order to demonstrate decreased risk of falling. Start: 01/16/25 Expected End: 01/30/25 Exercise Patient will complete lower extremity exercises for 1-2 sets / 10 reps in order to improve strength and activity tolerance for mobility. Start: 01/16/25 Expected End: 01/30/25 Mobility Patient will ambulate 300 feet with modified independence and least restrictive device in order to improve safety and independence with mobility. Start: 01/16/25 Expected End: 01/30/25 Transfers Patient will perform bed mobility with modified independence in order to improve independence and prepare for out of bed mobility. Start: 01/16/25 Expected End: 01/30/25 Patient will complete functional transfers with least restrictive device with modified independence in order to prepare for ambulation. Start: 01/16/25 Expected End: 01/30/25 Therapy Time Individual Co-Treatment Co-Evaluation Time In 1337 Time Out 1357 Minutes 20 Jovana Pradhan PT Patient's Physical Therapy Plan of Care supervision is transferred to a [facility] Therapy Services Physical Therapist. Goals and/or treatment plan was established in collaboration with patient/family/other representatives. Hospitalist Progress Note 01/16/2025 9:12 AM [phone]: Please page me for patient care issues. [phone]: Please page IMS night Hospitalist for any issues. Subjective: Admit Date: 01/13/2025 PCP: No primary care provider on file. Room#: [facility]526/[facility] A Interval History: Patient seen and examined Breathing continues to improve Denies any cough, sputum, chest pain No nausea, vomiting, abdominal pain No fever spike noted Leg swelling is improving Lab data's / Imaging studies reviewed Accu-Cheks reviewed Potassium 4.1, creatinine 1.4 Venous Doppler both lower extremity negative for DVT Echo showed EF of 35%, grade 3 diastolic dysfunction, RVSP 47 Past medical history : Past Medical History: Diagnosis Date CAD (coronary artery disease) CHF (congestive heart failure) (HCC) Depression Hyperlipidemia Hypertension OK (mitral incompetence) Adult diet Regular; Low Sodium (2 gm); 4 carb choices (60 gm/meal) @[id number]@ Medications: aspirin, 81 mg, Oral, Daily bumetanide, 1 mg, IntraVENous, q12h cetirizine, 5 mg, Oral, Daily dapagliflozin, 10 mg, Oral, Daily enoxaparin, 40 mg, SubCUTAneous, q24h insulin glargine, 22 Units, SubCUTAneous, Nightly insulin lispro, 0-12 Units, SubCUTAneous, TID WC And insulin lispro, 0-12 Units, SubCUTAneous, Nightly ipratropium-albuterol, 3 mL, Nebulization, TID levothyroxine, 125 mcg, Oral, qAM AC metoprolol succinate XL, 25 mg, Oral, Daily mirtazapine, 15 mg, Oral, Nightly mometasone-formoterol, 2 puff, Inhalation, BID nicotine, 1 patch, TransDERmal, Daily sacubitril-valsartan, 1 tablet, Oral, BID spironolactone, 25 mg, Oral, Daily LABS: CBC: Recent Labs 01/13/25192601/14/25 0704 01/15/25 0009 WBC 9.4 8.7 8.7 RBC 5.84 5.55 5.76 HGB 17.2 16.6 16.9 HCT 52.2* 50.1 51.0 MCV 89.4 90.3 88.5 RDW 13.6 13.6 13.7 PLT 190 219 195 BMP: Recent Labs 01/14/25 0704 01/15/25 0009 01/16/25 0306 NA 137 138 140 K 4.1 3.5 4.1 CL 99 102 104 CO2 30 25 23 BUN 13 21 21 CREATININE 1.20 1.30* 1.47* GLUCOSE 147* 223* 182* CALCIUM 8.6* 8.5* 9.1 ANIONGAP 8 11 13 LIVER PROFILE: Recent Labs 01/13/251926 AST 26 ALT 22 BILITOT 0.6 ALKPHOS 67 PROT 6.5 PT/INR: No results for input(s): PROTIME, INR in the last 72 hours. CARDIAC ENZYMES: No results for input(s): TROPONINI in the last 72 hours. Procalcitonin: No results found for: PROCAL @RISRSLTSPECIALTY@ I reviewed: [x] laboratory results [x] radiographic results At the time of today's encounter. Pt was informed about the results. Objective: Vitals: BP 130/93 (BP Location: Right arm, Patient Position: Sitting) Pulse 92 Temp 36.3 C (97.4 F) (Temporal) Resp 16 Ht 5' 7 (1.702 m) Wt 282 lb 3.2 oz (128 kg) SpO2 93% BMI 44.20 kg/m Pulse Ox: SpO2 Av.6 % Min: 91 % Max: 100 % Supplemental O2: General appearance: No apparent distress, HEENT: Eyes:No pallor Morbid obese male Oral: Tongue is semi-moist Cardiovascular: S1S2 heard, RRR Respiratory: Good air entry bilateral anteriorly decrease breath sound both bases posteriorly Abdomen: Soft, non-tender, non-distended, no mass palpable with normal bowel sounds. Neurology- Awake alert, answering questions Moving all 4 extremity Extremity - peripheral edema both lower extremities, improving Assessment Acute problems-- Acute on chronic heart failure with reduced ejection fraction exacerbation CAD with previous PCI Chronic kidney disease, stage III Hypertension DM with hyperglycemia Medication noncompliance Chronic issue-- CAD with PCI DM Hypertension Hyperlipidemia Morbid obesity ELBERT noncompliant with CPAP Hypothyroidism Chronic smoking history CKD stage III baseline creatinine 1.2-1.4 COPD Plan Continue IV Bumex 1 mg twice daily, cardiology team following BMP panel, magnesium level in a.m. Continue Farxiga/Toprol/Entresto/Aldactone as ordered Accu-Cheks reviewed, continue ADA 1800 diet, dose of Lantus increased to 22 units subcu daily, dose of sliding scale insulin was changed to medium dose SSI on 01/15/2025. Continue scheduled DuoNebs every 6 hours/Dulera inhaler as ordered Lovenox for DVT prophylaxis Continue rest of medication as ordered Labs for a.m. PT/OT consulted Patient was informed about all work up and treatment plan Discussed with nursing staff/TCC Toxic drug monitoring/narrow therapeutic index drug monitoring : # Drug name : Insulin # Route administered : Subcu # Method of monitoring : Accu-Chek No emergency contact information on file. Advance Directive: Full Code Discharge planning: Anticipated discharge in 2 days NOTE: This report was transcribed using voice recognition software. Every effort was made to ensure accuracy; however, inadvertent computerized polygraph examiner errors may be present. Praful Bahena MD Division of Hospitalist Medicine [employer] PAGER: Epic chat [facility] [employer] [facility] [place] Cardiology /Electrophysiology Progress Note HPI / Interval History: Shadi Marsh is a 59 y/o M with a PMHx of HFrEF, CAD, HTN, HLD, CKD, and ELBERT, who presented to [facility] on 01/13 with c/o SOB, orthopnea, and LOVE. He previously followed at [facility] for his heart failure, but had been without medications for the last month d/ insurance issues. He was found to be acutely decompensated and was started on IV diuresis. Repeat echocardiogram showed LVEF of 35% (improved from 17% previously) with severe RV dilation and mild RV dysfunction. Today, pt reports feeling much better. His shortness of breath, cough, and orthopnea have all resolved. His lower extremity swelling is improved. He denies any chest pain, palpitations, dizziness, or bloating. Assessment/Plan #Acute on chronic HFrEF=35% 2/2 NICM. Stage C, NYHA Class II. -Acute decompensation in setting of noncompliance. -S/p 2 days of IV diuresis. -I&Os neg 4.9L /24hours and net neg 7.3L this admit. Weight down overall ~18lbs if accurate. -Renal function/electrolytes stable. -Today, he appears euvolemic on exam. Stop IV Bumex and start PO Lasix 40mg daily tomorrow. -GDMT: Increase metoprolol to 50mg daily. Continue middose Entresto, spironolactone 25mg daily, and dapagliflozin 10mg daily. -Strict I/Os, daily standing weights, 1.8L fluid restriction, 2gm Na diet #CAD -Most recent catheterization was completed in February 2024 at [facility] and demonstrated patent stents with moderate disease. -Denies chest pain. -Continue medical therapy: ASA, BB. -No statin d/t myalgias. #Hyperlipidemia -LDL above target at 124. -Pt declines statin d/t hx myalgias. -Consider Zetia/Repatha outpatient. #CKD stage III -Scr baseline appears to be ~1.5. -Scr stable 1.3->1.47 today. -Diuretics as noted above. -BMP at first follow-up appt. #ELBERT -Dx ~30 years ago per pt. Off treatment. -Will need outpatient sleep study. Discussed with Dr. [place]. Cardiology will sign off. Cardiology Discharge/Sign-off Recommendations Cardiology medications to continue: [x] All cardiac medications as ordered currently Lasix 40mg daily, middose Entresto, metoprolol succinate 50mg daily, spironolactone 25mg daily, and dapagliflozin 10mg daily, ASA 81mg daily. Followup testing recommended as an outpatient: [x] Will be arranged by Cardiology BMP at first f/u Cardiology followup: [x] Arranged as follows: Sabrina Kam PA-C on 01/30 (pt requesting to switch care to [facility]) If there are any questions/concerns, please contact the covering provider. 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 Medications: aspirin, 81 mg, Oral, Daily bumetanide, 1 mg, IntraVENous, q12h cetirizine, 5 mg, Oral, Daily dapagliflozin, 10 mg, Oral, Daily enoxaparin, 40 mg, SubCUTAneous, q24h insulin glargine, 22 Units, SubCUTAneous, Nightly insulin lispro, 0-12 Units, SubCUTAneous, TID WC And insulin lispro, 0-12 Units, SubCUTAneous, Nightly ipratropium-albuterol, 3 mL, Nebulization, TID levothyroxine, 125 mcg, Oral, qAM AC metoprolol succinate XL, 25 mg, Oral, Daily mirtazapine, 15 mg, Oral, Nightly mometasone-formoterol, 2 puff, Inhalation, BID nicotine, 1 patch, TransDERmal, Daily sacubitril-valsartan, 1 tablet, Oral, BID spironolactone, 25 mg, Oral, Daily Infusion Medications: Physical Examination: Vitals: 01/15/25202401/15/25 2237 01/16/25 0300 01/16/25 0402 BP: 139/97 136/91 129/92 BP Location: Right arm Left arm Right arm Patient Position: Sitting Sitting Lying Pulse: 92 86 87 Resp: 18 16 14 Temp: 36.2 C (97.1 F) 36.2 C (97.1 F) 36.2 C (97.1 F) TempSrc: Temporal Temporal Temporal SpO2: 92% 95% 91% Weight: 282 lb 3.2 oz (128 kg) Height: Intake/Output Summary (Last 24 hours) at 01/16/2025 0753 Last data filed at 01/16/2025 0637 Gross per 24 hour Intake 760 ml Output 4975 ml Net -4215 ml Patient Vitals for the past 168 hrs: Weight Weight Method 01/16/25 0300 282 lb 3.2 oz (128 kg) Standing scale 01/15/25 0336 291 lb 3.2 oz (132 kg) Standing scale 01/14/25 1831 300 lb (136 kg) -- 01/13/25 1726 300 lb (136 kg) Stated Physical Exam Vitals reviewed. Constitutional: General: He is not in acute distress. Appearance: Normal appearance. He is obese. HENT: Head: Normocephalic and atraumatic. Neck: Vascular: No JVD. Cardiovascular: Rate and Rhythm: Normal rate and regular rhythm. Heart sounds: No murmur heard. No friction rub. No gallop. Pulmonary: Effort: Pulmonary effort is normal. Breath sounds: No wheezing, rhonchi or rales. Abdominal: General: There is no distension. Tenderness: There is no abdominal tenderness. Musculoskeletal: Right lower leg: No edema. Left lower leg: No edema. Skin: General: Skin is warm and dry. Capillary Refill: Capillary refill takes less than 2 seconds. Neurological: Mental Status: He is alert and oriented to person, place, and time. Laboratory Tests: TROPONIN I, CONVENTIONAL SENSITIVITY No results found for: CKTOTAL, CKMB, CKMBINDEX, TROPONINI TROPONIN I, HIGH SENSITIVITY Troponin HS Serial Baseline Date Value Ref Range Status 01/13/2025 24 <=35 ng/L Final Comment: In individuals presenting with symptoms > 2h, a baseline troponin <= 5 ng/L suggests acute cardiac injury is unlikely and further serial testing is generally not indicated. 2h Troponin HS (Serial 2nd Troponin) Date Value Ref Range Status 01/13/2025 22 <=35 ng/L Final Comment: 2h troponin (2nd troponin) samples collected between 1h 40 min and 2h and 20 min of the baseline collection time can be utilized to interpret delta troponins as per Summa algorithms. Samples collected outside this timeframe need to be interpreted clinically. Rising or falling troponin delta below 2 ng/L as compared to baseline value suggests that acute cardiac injury is unlikely. No results found for: TROPDELTBASE 4h Troponin HS (Serial 3rd Troponin) Date Value Ref Range Status 01/14/2025 21 <=35 ng/L Final Comment: 4h troponin (3rd troponin) samples collected between 1h 40 min and 2h and 20 min of the 2h troponin collection time can be utilized to interpret delta troponins as per Summa algorithms. Samples collected outside this timeframe need to be interpreted clinically. Rising or falling troponin delta below 2 ng/L as compared to 2h troponin value suggests that acute cardiac injury is unlikely. No results found for: TROPDELTSEC Recent Labs 01/13/25192601/14/2570301/15/25 0009 01/16/25 0306 NA 137 137 138 140 K 3.9 4.1 3.5 4.1 CL 101 99 102 104 CO2 30 25 23 BUN 14 13 21 21 CREATININE 1.31* 1.20 1.30* 1.47* Recent Labs 01/13/25192601/14/2570301/15/25 000 WBC 9.4 8.7 8.7 HGB 17.2 16.6 16.9 HCT 52.2* 50.1 51.0 MCV 89.4 90.3 88.5 PLT 190 219 195 Recent Labs 01/13/251926 BNP 2,488* No results for input(s): TRIG, HDL, LDLCALC, CHOL in the last 72 hours. No results found for: LDLCHOLESTER Lab Results Component Value Date TSH 0.71 01/15/2025 EF BP Date Value Ref Range Status 01/14/2025 43 (A) 55 - 100 % Final EF Physician Date Value Ref Range Status 01/14/2025 35 % Final 01/13/25 TRANSTHORACIC ECHOCARDIOGRAM (TTE) COMPLETE (CONTRAST/BUBBLE/3D PRN) 01/15/2025 8:04 AM (Final) Interpretation Summary Left Ventricle: Left ventricle size is normal. Normal wall thickness. Moderately reduced left ventricular systolic function. EF by visual approximation is 35%. See diagram for wall motion findings. Grade III diastolic dysfunction with increased LAP. Right Ventricle: Right ventricle is severely dilated. Mildly reduced systolic function. Tricuspid Valve: Mild to moderate (1-2+) regurgitation. RVSP is 47 mmHg. Left Atrium: Left atrium is moderately dilated. Left atrium size is moderately increased (LA volume index 42-48 mL/m2). Right Atrium: Right atrium is dilated. Aorta: Normal sized sinuses of Valsalva. Dilated ascending aorta. Ao ascending diameter is 4.2 cm. Pericardium: No pericardial effusion. No significant valvular abnormalities. Signed by: Amrit Johnson DO on 01/15/2025 8:04 AM Other reports reviewed: Cardiac Tests: ECG: Tracing reviewed. Telemetry findings reviewed: SR in 70s EF BP Date Value Ref Range Status 01/14/2025 43 (A) 55 - 100 % Final EF Physician Date Value Ref Range Status 01/14/2025 35 % Final Sabrina Kam PA-C Date Of Service 01/16/2025 Hospitalist Progress Note 01/15/2025 9:46 AM [id number]: Please page me for patient care issues. [phone]: Please page [facility] night Hospitalist for any issues. Subjective: Admit Date: 01/13/2025 PCP: No primary care provider on file. Room#: W5-526/W5526 A Interval History: Patient seen and examined Breathing is improving Denies any chest pain, cough, sputum No nausea, vomiting, abdominal pain Lower extremity cramp has improved significantly since switched from IV Lasix to IV Bumex. No fever spike noted Lab data's / Imaging studies reviewed Potassium 3.5, creatinine 1.3, magnesium 1.9, hemoglobin 16.9, TSH within normal limits Venous Doppler both lower extremity negative for DVT Echo showed EF of 35%, grade 3 diastolic dysfunction, RVSP 47 Past medical history : Past Medical History: Diagnosis Date CAD (coronary artery disease) CHF (congestive heart failure) (HCC) Depression Hyperlipidemia Hypertension OK (mitral incompetence) Adult diet Regular; Low Sodium (2 gm); 4 carb choices (60 gm/meal) @[id number]@ Medications: aspirin, 81 mg, Oral, Daily bumetanide, 1 mg, IntraVENous, q12h cetirizine, 5 mg, Oral, Daily dapagliflozin, 10 mg, Oral, Daily enoxaparin, 40 mg, SubCUTAneous, q24h insulin glargine, 20 Units, SubCUTAneous, Nightly insulin lispro, 0-12 Units, SubCUTAneous, TID WC And insulin lispro, 0-12 Units, SubCUTAneous, Nightly ipratropium-albuterol, 3 mL, Nebulization, 4x daily levothyroxine, 125 mcg, Oral, qAM AC metoprolol succinate XL, 25 mg, Oral, Daily mirtazapine, 15 mg, Oral, Nightly mometasone-formoterol, 2 puff, Inhalation, BID nicotine, 1 patch, TransDERmal, Daily potassium chloride CR, 20 mEq, Oral, Once sacubitril-valsartan, 1 tablet, Oral, BID spironolactone, 25 mg, Oral, Daily LABS: CBC: Recent Labs 01/13/25192601/14/25 0704 01/15/25 0009 WBC 9.4 8.7 8.7 RBC 5.84 5.55 5.76 HGB 17.2 16.6 16.9 HCT 52.2* 50.1 51.0 MCV 89.4 90.3 88.5 RDW 13.6 13.6 13.7 PLT 190 219 195 BMP: Recent Labs 01/13/25192601/14/25 0704 01/15/25 0009 NA 137 137 138 K 3.9 4.1 3.5 CL 101 99 102 CO2 27 30 25 BUN 14 13 21 CREATININE 1.31* 1.20 1.30* GLUCOSE 171* 147* 223* CALCIUM 8.8 8.6* 8.5* ANIONGAP 9 8 11 LIVER PROFILE: Recent Labs 01/13/251926 AST 26 ALT 22 BILITOT 0.6 ALKPHOS 67 PROT 6.5 PT/INR: No results for input(s): PROTIME, INR in the last 72 hours. CARDIAC ENZYMES: No results for input(s): TROPONINI in the last 72 hours. Procalcitonin: No results found for: PROCAL @RISRSLTSPECIALTY@ I reviewed: [x] laboratory results [x] radiographic results At the time of today's encounter. Pt was informed about the results. Objective: Vitals: BP 139/94 (BP Location: Left arm, Patient Position: Sitting) Pulse 82 Temp 36.2 C (97.2 F) (Temporal) Resp 18 Ht 5' 7 (1.702 m) Wt 291 lb 3.2 oz (132 kg) SpO2 92% BMI 45.61 kg/m Pulse Ox: SpO2 Av % Min: 92 % Max: 98 % Supplemental O2: General appearance: No apparent distress, HEENT: Eyes:No pallor Morbid obese male Oral: Tongue is semi-moist Cardiovascular: S1S2 heard, RRR Respiratory: Good air entry bilateral anteriorly decrease breath sound both bases posteriorly Abdomen: Soft, non-tender, non-distended, no mass palpable with normal bowel sounds. Neurology- Awake alert, answering questions Moving all 4 extremity Extremity-pitting peripheral edema both lower extremities Assessment Acute problems-- Acute on chronic heart failure with reduced ejection fraction exacerbation CAD with previous PCI Chronic kidney disease, stage III Hypertension Medication noncompliance Chronic issue-- CAD with PCI DM Hypertension Hyperlipidemia Morbid obesity ELBERT noncompliant with CPAP Hypothyroidism Chronic smoking history CKD stage III baseline creatinine 1.2-1.4 COPD Plan Continue IV Bumex 1 mg twice daily, cardiology team following BMP panel in a.m. Potassium level borderline, ordered 20 mEq of p.o. potassium today Continue Farxiga/Toprol/Entresto/Aldactone as ordered Accu-Cheks reviewed, continue ADA 1800/cardiac diet, Lantus 20 units at bedtime. Change sliding scale insulin to medium dose Continue scheduled DuoNebs every 6 hours/Dulera inhaler as ordered Lovenox for DVT prophylaxis Continue rest of medication as ordered BMP panel in a.m. Patient was informed about all work up and treatment plan Toxic drug monitoring/narrow therapeutic index drug monitoring : # Drug name : Insulin # Route administered : Subcu # Method of monitoring : Accu-Chek No emergency contact information on file. Advance Directive: Full Code Discharge planning: Anticipated discharge in 3 days NOTE: This report was transcribed using voice recognition software. Every effort was made to ensure accuracy; however, inadvertent computerized polygraph examiner errors may be present. Praful Bahena MD Division of Hospitalist Medicine [facility] PAGER: Epic chat [facility] [employer] [facility] [place] [facility] Cardiology /Electrophysiology Progress Note HPI / Interval History: Venkat Marsh is a 59 y.o. male with known CAD s/p remote OK with PCI to LAD in 2011, hypertension, hyperlipidemia, T2DM, ELBERT not on CPAP therapy, tobacco abuse and morbid obesity presented with worsening SOB, lower leg edema, abdominal distension, weight gain in the setting of medication non-compliance for 1 month. Currently the pt reports he is feeling much better and slept the best he has in 6 months last night. Reports breathing and edema have improved. Denies chest pain, palps or dizziness. Assessment/Plan HF NYHA Class [] I [] II [x] III [] IV []Unable to assess [] N/A Acute on chronic HFrEF/ nonischemic cardiomyopathy complicated with RV dysfunction- EF 17% prior and 35% on echo yesterday with mildly reduced RV function- restarted on GDMT yesterday- improving- currently down 9 lbs- bp remains elevated - will increase entresto 49/51 mg bid- cont metoprolol succinate, farxiga, spironolactone- can likely transition to oral loop diuretic therapy tomorrow- pt requesting to establish with HF clinic at [facility] CAD s/p remote PCI with most recent [facility] 04/13 [facility] showing patent stents with moderate disease with recommendations for continued medical therapy- on ASA, metoprolol, farxiga- pt reports intolerance to statin therapy secondary to myalgias and declines trying different cholesterol medication CKD- stable DM type 2- management per primary ELBERT- diagnosed 30 years ago per pt- off treatment- will need outpt sleep study Medications: aspirin, 81 mg, Oral, Daily bumetanide, 1 mg, IntraVENous, q12h cetirizine, 5 mg, Oral, Daily dapagliflozin, 10 mg, Oral, Daily enoxaparin, 40 mg, SubCUTAneous, q24h insulin glargine, 20 Units, SubCUTAneous, Nightly insulin lispro, 0-12 Units, SubCUTAneous, TID WC And insulin lispro, 0-12 Units, SubCUTAneous, Nightly ipratropium-albuterol, 3 mL, Nebulization, 4x daily levothyroxine, 125 mcg, Oral, qAM AC metoprolol succinate XL, 25 mg, Oral, Daily mirtazapine, 15 mg, Oral, Nightly mometasone-formoterol, 2 puff, Inhalation, BID nicotine, 1 patch, TransDERmal, Daily potassium chloride CR, 20 mEq, Oral, Once sacubitril-valsartan, 1 tablet, Oral, BID spironolactone, 25 mg, Oral, Daily Infusion Medications: Physical Examination: Vitals: 01/14/25 2222 01/15/25 0336 01/15/25 0725 01/15/25 0749 BP: 113/75 (!) 151/104 139/94 BP Location: Right arm Right arm Left arm Patient Position: Lying Lying Sitting Pulse: 80 85 82 Resp: 18 18 18 Temp: 36.2 C (97.2 F) 36.2 C (97.1 F) 36.2 C (97.2 F) TempSrc: Temporal Temporal Temporal SpO2: 97% 95% 92% 92% Weight: 291 lb 3.2 oz (132 kg) Height: Intake/Output Summary (Last 24 hours) at 01/15/2025 0944 Last data filed at 01/15/2025 0749 Gross per 24 hour Intake 1930 ml Output 5050 ml Net -3120 ml Patient Vitals for the past 168 hrs: Weight Weight Method 01/15/25 0336 291 lb 3.2 oz (132 kg) Standing scale 01/14/25 1831 300 lb (136 kg) -- 01/13/25 1726 300 lb (136 kg) Stated Physical Exam Constitutional: NAD Psychiatric: Alert. Medical insight good Neck: No JVD Respiratory: Lungs are diminished bilaterally Heart: RRR ; Nl S1 and S2, no murmur, no rub, gallop Abdomen: NABS; soft, non-tender, non-distended Extremities: 1+ LE edema Skin: Warm to touch and well perfused Laboratory Tests: TROPONIN I, CONVENTIONAL SENSITIVITY No results found for: CKTOTAL, CKMB, CKMBINDEX, TROPONINI TROPONIN I, HIGH SENSITIVITY Troponin HS Serial Baseline Date Value Ref Range Status 01/13/2025 24 <=35 ng/L Final Comment: In individuals presenting with symptoms > 2h, a baseline troponin <= 5 ng/L suggests acute cardiac injury is unlikely and further serial testing is generally not indicated. 2h Troponin HS (Serial 2nd Troponin) Date Value Ref Range Status 01/13/2025 22 <=35 ng/L Final Comment: 2h troponin (2nd troponin) samples collected between 1h 40 min and 2h and 20 min of the baseline collection time can be utilized to interpret delta troponins as per Summa algorithms. Samples collected outside this timeframe need to be interpreted clinically. Rising or falling troponin delta below 2 ng/L as compared to baseline value suggests that acute cardiac injury is unlikely. No results found for: TROPDELTBASE 4h Troponin HS (Serial 3rd Troponin) Date Value Ref Range Status 01/14/2025 21 <=35 ng/L Final Comment: 4h troponin (3rd troponin) samples collected between 1h 40 min and 2h and 20 min of the 2h troponin collection time can be utilized to interpret delta troponins as per Summa algorithms. Samples collected outside this timeframe need to be interpreted clinically. Rising or falling troponin delta below 2 ng/L as compared to 2h troponin value suggests that acute cardiac injury is unlikely. No results found for: TROPDELTSEC Recent Labs 01/13/25192601/14/2504 01/15/25 0009 NA 137 137 138 K 3.9 4.1 3.5 CL 101 99 102 CO2 30 25 BUN 14 13 21 CREATININE 1.31* 1.20 1.30* Recent Labs 01/13/25192601/14/25 0704 01/15/25 0009 WBC 9.4 8.7 8.7 HGB 17.2 16.6 16.9 HCT 52.2* 50.1 51.0 MCV 89.4 90.3 88.5 PLT 190 219 195 Recent Labs 01/13/251926 BNP 2,488* No results for input(s): TRIG, HDL, LDLCALC, CHOL in the last 72 hours. No results found for: LDLCHOLESTER Lab Results Component Value Date TSH 0.71 01/15/2025 EF BP Date Value Ref Range Status 01/14/2025 43 (A) 55 - 100 % Final EF Physician Date Value Ref Range Status 01/14/2025 35 % Final LHC at [facility] 03/2024 LAD: The proximal LAD is narrowed 20 % - ISR. Additional Comment: Has mild diffuse disease throughout. There is a patent stent in the proximal LAD. The proximal stage of the stent has focal 20% stenosis. LCX: _ The proximal circumflex is narrowed 40 % - ostial. Additional Comment: Has ostial 40% stenosis. RAMUS: _ Ramus Status: Not Applicable. RCA: The proximal RCA is narrowed 20 % - ISR. Additional Comment: Has patent stent in the proximal portion. It has mild ISR. Left Ventriculogram:Mildly elevated at 17 mmHg. Echo 03/2024 The left ventricle is mildly dilated. There is mild concentric left ventricular hypertrophy. Left ventricular systolic function is severely decreased. EF = 17 5% (2D biplane) Definity contrast used for endocardial border detection. Left ventricular diastolic function was not evaluated due to AF. Severe diffuse hypokinesis - The right ventricle is dilated. Right ventricular systolic function is moderately decreased. - The left atrial cavity is mildly dilated. - The right atrial cavity is dilated. - The visualized aorta is dilated with a maximal dimension of 4.1 cm. - Estimated right ventricular systolic pressure is 56 mmHg consistent with moderate pulmonary hypertension. Estimated right atrial pressure is 15 mmHg based on IVC assessment. 01/13/25 TRANSTHORACIC ECHOCARDIOGRAM (TTE) COMPLETE (CONTRAST/BUBBLE/3D PRN) 01/15/2025 8:04 AM (Final) Interpretation Summary Left Ventricle: Left ventricle size is normal. Normal wall thickness. Moderately reduced left ventricular systolic function. EF by visual approximation is 35%. See diagram for wall motion findings. Grade III diastolic dysfunction with increased LAP. Right Ventricle: Right ventricle is severely dilated. Mildly reduced systolic function. Tricuspid Valve: Mild to moderate (1-2+) regurgitation. RVSP is 47 mmHg. Left Atrium: Left atrium is moderately dilated. Left atrium size is moderately increased (LA volume index 42-48 mL/m2). Right Atrium: Right atrium is dilated. Aorta: Normal sized sinuses of Valsalva. Dilated ascending aorta. Ao ascending diameter is 4.2 cm. Pericardium: No pericardial effusion. No significant valvular abnormalities. Signed by: Amrit Johnson DO on 01/15/2025 8:04 AM Other reports reviewed: Cardiac Tests: Telemetry findings reviewed: SR with IVCD with HR 80s EF BP Date Value Ref Range Status 01/14/2025 43 (A) 55 - 100 % Final EF Physician Date Value Ref Range Status 01/14/2025 35 % Final Mirela Kat PA-C Date Of Service 01/15/2025 Nutrition rescreen completed. Chart reviewed. Patient to be monitored and followed by the diet pulmonary function technician. [facility] Respiratory Care Department Progress Note As part of the Respiratory Assessment Program (RAP), the following Respiratory Therapist evaluation has been completed, including a chart review and clinical/physical assessment. Respiratory Therapist RAP Evaluation Guideline Points 0 1 2 3 4 Points Strongly Consider History Factor No Pulmonary conditions Stable Pulmonary condition(s) Surgery or Intervention that may impact Pulmonary system (at risk) Surgery or Intervention that is impacting Pulmonary system Active Exacerbation of Pulmonary Condition 1 Respiratory Pattern Regular, RR= 12-18 BRASWELL or Increased RR= 19-24 Irregular, or RR= 25-30 SOB, talk in short sentences, or RR= 31-35 Severe SOB, accessory muscle use, one word answers, or RR>35 0 Aerosol Med(s), High Flow O2 Breath Sounds Clear Diminished in 1 lobe Diminished in <= 2 lobes Adventitious breath sounds Coarse crackles, Wheezes, or Diminished in >2 lobes 4 Aerosol Med(s), Bronchial Hygiene, Hyperinflation Cough & Sputum Strong cough, no secretion retention or production Weak cough, no secretion retention or production Weak cough, w/ production (less often than Q2hr), or secretion retention No cough, w/ secretion retention or production (less often than Q2hr) Significant secretion production (more often than Q2hr) or mucus plug 0 Aerosol Med(s), Bronchial Hygiene, Hyperinflation Level of Activity Ambulatory Ambulatory with Assist Up in chair or edge of bed (dangle) Non-ambulatory, bedridden with active ROM Completely paralyzed or without active ROM 1 Triage 5 0-2 Triage 4 3-5 Triage 3 6-10 Triage 2 11-14 Triage 1 >=15 Total 6 Triage Score = 3 TRIAGE SCORING - SUGGESTED FREQUENCIES Aerosol Therapy Bronchial Hygiene Hyperinflation Triage Score Q4h & PRN 1 Q4hWA (QID) & PRN 2 TID & PRN 3 BID & PRN 4 PRN 5 Therapy(s) Indicated Yes/No Aerosol Medication y Hyperinflation Bronchial Hygiene High Flow Oxygen RT to enter/modify frequency of treatment order in EMR/EHR to match this RAP evaluation. Based on this RAP evaluation the following therapy is being initiated: svn At the following frequency: tid Comments: Thank you for involving Respiratory in the care of this patient, Hospitalist Progress Note 01/14/2025 7:55 AM [phone]: Please page me for patient care issues. [phone]: Please page IMS night Hospitalist for any issues. Subjective: Admit Date: 01/13/2025 PCP: No primary care provider on file. Room#: 43/ Interval History: Patient seen and examined Admitted following shortness of breath, leg swelling, weight gain. Patient denies any chest pain, cough, sputum No nausea, vomiting, abdominal pain Patient was noncompliant with treatment, was not taking medication for past few months due to lack of insurance. No fever spike noted Saturation was 93 to 96% on room air Lab data's / Imaging studies reviewed Potassium 3.9, creatinine 1.3, glucose 171, troponin negative, hemoglobin 16.6 EKG reviewed independently by me showed sinus rhythm, prolonged UT interval COVID/influenza/RSV negative Chest x-ray negative for acute process Past medical history : Past Medical History: Diagnosis Date CAD (coronary artery disease) CHF (congestive heart failure) (HCC) Depression Hyperlipidemia Hypertension OK (mitral incompetence) Adult diet Regular; Low Sodium (2 gm); 4 carb choices (60 gm/meal) @[id number]@ Medications: amLODIPine, 2.5 mg, Oral, Daily aspirin, 81 mg, Oral, Daily cetirizine, 5 mg, Oral, Daily enoxaparin, 40 mg, SubCUTAneous, q24h furosemide, 80 mg, IntraVENous, BID insulin glargine, 20 Units, SubCUTAneous, Nightly insulin lispro, 0-6 Units, SubCUTAneous, TID WC And insulin lispro, 0-6 Units, SubCUTAneous, Nightly ipratropium-albuterol, 3 mL, Nebulization, 4x daily levothyroxine, 125 mcg, Oral, qAM AC metoprolol succinate XL, 25 mg, Oral, Daily mirtazapine, 15 mg, Oral, Nightly mometasone-formoterol, 2 puff, Inhalation, BID LABS: CBC: Recent Labs 01/13/25192601/14/25 0704 WBC 9.4 8.7 RBC 5.84 5.55 HGB 17.2 16.6 HCT 52.2* 50.1 MCV 89.4 90.3 RDW 13.6 13.6 PLT 190 219 BMP: Recent Labs 01/13/25192601/14/25 0704 NA 137 137 K 3.9 4.1 CL 101 99 CO2 27 30 BUN 14 13 CREATININE 1.31* 1.20 GLUCOSE 171* 147* CALCIUM 8.8 8.6* ANIONGAP 9 8 LIVER PROFILE: Recent Labs 01/13/251926 AST 26 ALT 22 BILITOT 0.6 ALKPHOS 67 PROT 6.5 PT/INR: No results for input(s): PROTIME, INR in the last 72 hours. CARDIAC ENZYMES: No results for input(s): TROPONINI in the last 72 hours. Procalcitonin: No results found for: PROCAL @RISRSLTSPECIALTY@ I reviewed: [x] laboratory results [x] radiographic results At the time of today's encounter. Pt was informed about the results. Objective: Vitals: BP 116/89 Pulse 84 Temp (!) 35.9 C (96.6 F) (Temporal) Resp 14 Ht 5' 7 (1.702 m) Wt 300 lb (136 kg) SpO2 93% BMI 46.99 kg/m Pulse Ox: SpO2 Av.3 % Min: 93 % Max: 97 % Supplemental O2: General appearance: No apparent distress, HEENT: Eyes:No pallor Morbid obese male Oral: Tongue is semi-moist Cardiovascular: S1S2 heard, RRR Respiratory: Bilateral scattered expiratory wheeze anterior/posteriorly decrease breath sound both bases posteriorly Abdomen: Soft, non-tender, non-distended, no mass palpable with normal bowel sounds. Musculoskeletal: No obvious deformities seen Skin: No visible rashes or lesions. Neurology- Awake alert, answering questions Moving all 4 extremity Extremity-pitting peripheral edema both lower extremities Assessment Acute problems-- Acute on chronic heart failure with reduced ejection fraction exacerbation CAD with previous PCI Chronic kidney disease Hypertension Medication noncompliance Chronic issue-- CAD with PCI DM Hypertension Hyperlipidemia Morbid obesity ELBERT noncompliant with CPAP Hypothyroidism Chronic smoking history CKD stage III baseline creatinine 1.2-1.4 COPD Plan Continue IV Lasix 80 mg twice daily Echo ordered Venous Doppler both lower extremity ordered Cardiology team consulted BMP, magnesium level in a.m. Continue Toprol-XL/Norvasc as ordered for hypertension. Change diet to ADA 1800/cardiac diet Continue Lantus/low-dose sliding scale insulin as ordered DuoNeb every 6 hours scheduled Started on Dulera inhaler 2 puff twice daily Lovenox for DVT prophylaxis Continue rest of medication as ordered Labs ordered for AM Patient was informed about all work up and treatment plan Discussed with nursing staff in ED Toxic drug monitoring/narrow therapeutic index drug monitoring : # Drug name : Insulin # Route administered : Subcu # Method of monitoring : Accu-Chek No emergency contact information on file. Advance Directive: Full Code Discharge planning: Anticipated discharge in 3 days NOTE: This report was transcribed using voice recognition software. Every effort was made to ensure accuracy; however, inadvertent computerized polygraph examiner errors may be present. Praful Bahena MD Division of Hospitalist Medicine [facility] PAGER: Epic chat documented in this encounter [facility] 01-16-2025 Note Formatting of this n ote might be different from the original. Spoke with patient regarding PT recommendations for home health PT. He agreed. liaison planner aware. [facility] 01-16-2025 Note Formatting of this n ote might be different from the original. Spoke with patient regarding PT recommendations for home health PT. He agreed. liaison planner aware. [facility] 01-16-2025 Note PHYSICAL THERAPY [facility] Initial Evaluation Name/MRN: Shadi Marsh ([id number]) Evaluation Date: 01/16/2025 Date of : 1965 Admission Date: 01/13/2025 5:24 PM Age: 59 y.o. Room/Bed: [facility] A Discharge Recommendation: Home with Home health PT Equipment Needed: No Assessment IMPRESSION: Pt admitted with SOB, LE edema and CHF exacerbation. Pt presents with decreased functional mobility, decreased strength, decreased endurance and impaired balance. Pt has decreased standing balance requiring 1 person for safety at this time placing him at an increased risk of falling. Pt could benefit from continued PT in order to address his decreased functional mobility, strength, balance and safety. Pt has medical history as indicated below that contributes to his clinical presentation. At baseline patient is functionally independent with no device. Currently patient is SBA/close supervision with no device and is anticipated to progress with acute therapies and medical management in order to return home with assist and C PT. Admitting Diagnosis: Pt admitted with SOB, LE edema and CHF exacerbation. Prognosis: good Performance Deficits /Impairments: Decreased Functional Mobility, Decreased Strength, Decreased Endurance, and Decreased Balance Decision Making: Medium Complexity Subjective Patient very pleasant and agreeable to therapy session this date. Per RN patient okay for therapy. Observation: tele intact Vitals SpO2 >92% on room air throughout exertion HR 84 - 108 bpm with exertion Pain: Pt denies any current pain. Past Medical History: Past Medical History: Diagnosis Date CAD (coronary artery disease) CHF (congestive heart failure) ([facility]) Depression Hyperlipidemia Hypertension OK (mitral incompetence) Past Surgical History: Past Surgical History: Procedure Laterality Date CORONARY ANGIOPLASTY WITH STENT PLACEMENT Admission Diagnosis: Patient Active Problem List Diagnosis Date Noted Acute congestive heart failure, unspecified heart failure type ([facility]) 01/13/2025 Medical Precautions: No active isolations Proper PPE donned/doffed in accordance with facility standards. Fall Risk: José Fall Risk Score: 35 (Low Risk) José Fall Risk Score: 35 (Medium Risk) Precautions/Restrictions: N/A Family/Caregiver Present: none Overall Cognitive Status: WFL Overall Orientation Status: Oriented x4 Vision: wears glasses for reading and and are being used during the eval Hearing: normal Social/Functional History Patient admitted from home. Lives With: Alone Type of Home: apartment Home Layout: Single Level Home Home Access: Level Entry Bathroom Shower/Tub: Tub/Shower Combo Toilet: Standard and Grab Bars Home Equipment: none Homemaking Responsibilities: Independent Receives Help From: None Active Medicare Coordinator: Yes Prior Level of Function Prior Level of ADL Function: Independent Prior Level of Mobility: Independent; Device: None Prior Level of Transfers: Independent Objective Lower Extremity Assessment AROM: WFL Strength: Pt demonstrates appropriate B LE and quad strength in order to safely participate in OOB mobility, generalized weakness noted Bed Mobility: NT patient sitting EOB pre/post session Transfers Sit to stand: Supervision, to no device from EOB Stand to sit: Supervision Denies dizziness on initial stance. No true LOB or instability noted on initial stance. Postural sway observed. Ambulation Ambulation 1 Assistive device(s) used: None Assist level: Supervision, SBA Distance (ft): 250 ft x 1 Quality of gait: No LOB, reciprocal stepping, B foot clearance, uneven step length, slow rex, postural sway, path deviations Pt demonstrates increasing postural sway and path deviations with increased distance and fatigue. No true LOB noted. Pt reports fatigue with this distance, however no SOB and vitals WFL. Heart Failure on Admission Dyspnea: No Heart failure diagnosis: Yes dyspnea with moderate exertion Outcome Measures AM-PAC How much HELP from another person do you currently need Turning from your back to your side while in a flat bed without using bedrails?: A Little Moving from lying on your back to sitting on the side of a flat bed without using bedrails?: A Little Moving to and from a bed to a chair (including a wheelchair)?: A Little Standing up from a chair using your arms (wheelchair or bedside chair)?: A Little Walking in a hospital room?: A Little Stair climbing assessed?: No AM-PAC Inpatient Mobility Raw Score (No Stairs) : 15 JH-HLM JH-HLM Score: Walked 25 ft or more (i.e. walked outside of room) Plan Pt would benefit from skilled acute PT services to address Strengthening, ROM, Gait Training, Balance Training, Self-Care/ADL Training, Functional Mobility Training, Endurance Training, Safety Education and Training, Equipment Evaluation/Education, Home Management Training, (more content not included)... [facility] 01-16-2025 Telephone encounter Note Patient called requesting the following refill Refill(s) Requested: Requested Prescriptions Pending Prescriptions Disp Refills mirtazapine (REMERON) 15 mg tablet 30 tablet 2 Sig: Take 1 tablet by mouth daily at bedtime. traZODone (DESYREL) 100 mg tablet 30 tablet 2 Sig: Take 1 tablet by mouth daily at bedtime. ALLERGIES Allergen Reactions Amoxicillin-Pot Cla* Anaphylaxis, Swelling Doxycycline Unknown Lisinopril Cough Sulfamethoxazole-Tr* Rash, Hives, Swelling Trimethoprim Swelling (home) [phone] (cell) Last Office Visit Date: 02/03/2024 Last Distance Health Visit: Visit date not found Future Appointment: Visit date not found The patients preferred pharmacy has been captured for this encounter? yes Request is for script(s) to be escript to pharmacy. Jelena Oleary [facility] 01-16-2025 Miscellaneous Notes Patient called requesting the following refill Refill(s) Requested: Requested Prescriptions Pending Prescriptions Disp Refills mirtazapine (REMERON) 15 mg tablet 30 tablet 2 Sig: Take 1 tablet by mouth daily at bedtime. traZODone (DESYREL) 100 mg tablet 30 tablet 2 Sig: Take 1 tablet by mouth daily at bedtime. ALLERGIES Allergen Reactions Amoxicillin-Pot Cla* Anaphylaxis, Swelling Doxycycline Unknown Lisinopril Cough Sulfamethoxazole-Tr* Rash, Hives, Swelling Trimethoprim Swelling (home) [phone] (cell) Last Office Visit Date: 02/03/2024 Last [facility] Visit: Visit date not found Future Appointment: Visit date not found The patients preferred pharmacy has been captured for this encounter? yes Request is for script(s) to be escript to pharmacy. Jelena Oleary documented in this encounter [facility] 01-16-2025 Telephone encounter Note Patient called on 01/16- I spoke with him- He is in the hospital - dealing with heart failure He needs a follow up appt with provider Asked for refills- I explained I'm not sure if provider will fill medication until he see's you Patient understood Jelena Oleary January 16, 2025 1:44 PM [facility] 01-16-2025 Miscellaneous Notes Patient called on 01/16- I spoke with him- He is in the hospital - dealing with heart failure He needs a follow up appt with provider Asked for refills- I explained I'm not sure if provider will fill medication until he see's you Patient understood Jelena Oleary January 16, 2025 1:44 PM documented in this encounter [facility] 01-16-2025 Plan of care note Problem: Knowledge Deficit Goal: Patient/family/caregiver demonstrates understanding of disease process, treatment plan, medications, and discharge instructions Outcome: Progressing Problem: Hemodynamic Status Goal: Patient's vitals signs are stable Outcome: Progressing Problem: Excessive Fluid Volume Goal: Fluid and electrolyte balance are achieved/maintained Outcome: Progressing [facility] 01-16-2025 Note Hospitalist Progress Note 01/16/2025 9:12 AM [phone]: Please page me for patient care issues. [phone]: Please page IMS night Hospitalist for any issues. Subjective: Admit Date: 01/13/2025 PCP: No primary care provider on file. Room#: [facility]6/[facility] A Interval History: Patient seen and examined Breathing continues to improve Denies any cough, sputum, chest pain No nausea, vomiting, abdominal pain No fever spike noted Leg swelling is improving Lab data's / Imaging studies reviewed Accu-Cheks reviewed Potassium 4.1, creatinine 1.4 Venous Doppler both lower extremity negative for DVT Echo showed EF of 35%, grade 3 diastolic dysfunction, RVSP 47 Past medical history : Past Medical History: Diagnosis Date CAD (coronary artery disease) CHF (congestive heart failure) (HCC) Depression Hyperlipidemia Hypertension OK (mitral incompetence) Adult diet Regular; Low Sodium (2 gm); 4 carb choices (60 gm/meal) @[id number]@ Medications: aspirin, 81 mg, Oral, Daily bumetanide, 1 mg, IntraVENous, q12h cetirizine, 5 mg, Oral, Daily dapagliflozin, 10 mg, Oral, Daily enoxaparin, 40 mg, SubCUTAneous, q24h insulin glargine, 22 Units, SubCUTAneous, Nightly insulin lispro, 0-12 Units, SubCUTAneous, TID WC And insulin lispro, 0-12 Units, SubCUTAneous, Nightly ipratropium-albuterol, 3 mL, Nebulization, TID levothyroxine, 125 mcg, Oral, qAM AC metoprolol succinate XL, 25 mg, Oral, Daily mirtazapine, 15 mg, Oral, Nightly mometasone-formoterol, 2 puff, Inhalation, BID nicotine, 1 patch, TransDERmal, Daily sacubitril-valsartan, 1 tablet, Oral, BID spironolactone, 25 mg, Oral, Daily LABS: CBC: Recent Labs 01/13/25192601/14/25 0704 01/15/25 0009 WBC 9.4 8.7 8.7 RBC 5.84 5.55 5.76 HGB 17.2 16.6 16.9 HCT 52.2* 50.1 51.0 MCV 89.4 90.3 88.5 RDW 13.6 13.6 13.7 PLT 190 219 195 BMP: Recent Labs 01/14/25 0704 01/15/25 0009 01/16/25 0306 NA 137 138 140 K 4.1 3.5 4.1 CL 99 102 104 CO2 30 25 23 BUN 13 21 21 CREATININE 1.20 1.30* 1.47* GLUCOSE 147* 223* 182* CALCIUM 8.6* 8.5* 9.1 ANIONGAP 8 11 13 LIVER PROFILE: Recent Labs 01/13/251926 AST 26 ALT 22 BILITOT 0.6 ALKPHOS 67 PROT 6.5 PT/INR: No results for input(s): PROTIME, INR in the last 72 hours. CARDIAC ENZYMES: No results for input(s): TROPONINI in the last 72 hours. Procalcitonin: No results found for: PROCAL @RISRSLTSPECIALTY@ I reviewed: [x] laboratory results [x] radiographic results At the time of today's encounter. Pt was informed about the results. Objective: Vitals: BP 130/93 (BP Location: Right arm, Patient Position: Sitting) Pulse 92 Temp 36.3 ?C (97.4 ?F) (Temporal) Resp 16 Ht 5' 7 (1.702 m) Wt 282 lb 3.2 oz (128 kg) SpO2 93% BMI 44.20 kg/m? Pulse Ox: SpO2 Av.6 % Min: 91 % Max: 100 % Supplemental O2: General appearance: No apparent distress, HEENT: Eyes:No pallor Morbid obese male Oral: Tongue is semi-moist Cardiovascular: S1S2 heard, RRR Respiratory: Good air entry bilateral anteriorly decrease breath sound both bases posteriorly Abdomen: Soft, non-tender, non-distended, no mass palpable with normal bowel sounds. Neurology- Awake alert, answering questions Moving all 4 extremity Extremity - peripheral edema both lower extremities, improving Assessment Acute problems-- Acute on chronic heart failure with reduced ejection fraction exacerbation CAD with previous PCI Chronic kidney disease, stage III Hypertension DM with hyperglycemia Medication noncompliance Chronic issue-- CAD with PCI DM Hypertension Hyperlipidemia Morbid obesity ELBERT noncompliant with CPAP Hypothyroidism Chronic smoking history CKD stage III baseline creatinine 1.2-1.4 COPD Plan Continue IV Bumex 1 mg twice daily, cardiology team following BMP panel, magnesium level in a.m. Continue Farxiga/Toprol/Entresto/Aldactone as ordered Accu-Cheks reviewed, continue ADA 1800 diet, dose of Lantus increased to 22 units subcu daily, dose of sliding scale insulin was changed to medium dose SSI on 01/15/2025. Continue scheduled DuoNebs every 6 hours/Dulera inhaler as ordered Lovenox for DVT prophylaxis Continue rest of medication as ordered Labs for a.m. PT/OT consulted Patient was informed about all work up and treatment plan Discussed with nursing staff/TCC Toxic drug monitoring/narrow therapeutic index drug monitoring : # Drug name : Insulin # Route administered : Subcu # Method of monitoring : Accu-Chek No emergency contact information on file. Advance Directive: Full Code Discharge planning: Anticipated discharge in 2 days NOTE: This report was transcribed using voice recognition software. Every effort was made to ensure accuracy; however, inadvertent computerized polygraph examiner errors may be present. Praful Bahena MD Division of Hospitalist Medicine Acute Care [facility] PAGER: Ep (more content not included)... [facility] 01-16-2025 Note Formatting of this n ote might be different from the original. Care Management Progress Note Reviewed chart. From home. Cardiology following. Bumex IVP. Echo 35%. Plan to DC to home when medically stable. Will follow. Length of Stay (Days): 0 GMLOS: No GMLOS Documented [facility] 01-16-2025 Note Formatting of this n ote might be different from the original. Care Management Progress Note Reviewed chart. From home. Cardiology following. Bumex IVP. Echo 35%. Plan to DC to home when medically stable. Will follow. Length of Stay (Days): 0 GMLOS: No GMLOS Documented [facility] 01-16-2025 Note Care Management Prog ress Note Reviewed chart. From home. Cardiology following. Bumex IVP. Echo 35%. Plan to DC to home when medically stable. Will follow. Length of Stay (Days): 0 GMLOS: No GMLOS Documented [facility] 01-16-2025 Note [facility] Cardiology /Electrophysiology Progress Note HPI / Interval History: Shadi Marsh is a 59 y/o M with a PMHx of HFrEF, CAD, HTN, HLD, CKD, and ELBERT, who presented to [facility] on 01/13 with c/o SOB, orthopnea, and LOVE. He previously followed at [facility] for his heart failure, but had been without medications for the last month d/ insurance issues. He was found to be acutely decompensated and was started on IV diuresis. Repeat echocardiogram showed LVEF of 35% (improved from 17% previously) with severe RV dilation and mild RV dysfunction. Today, pt reports feeling much better. His shortness of breath, cough, and orthopnea have all resolved. His lower extremity swelling is improved. He denies any chest pain, palpitations, dizziness, or bloating. Assessment/Plan #Acute on chronic HFrEF=35% 2/2 NICM. Stage C, NYHA Class II. -Acute decompensation in setting of noncompliance. -S/p 2 days of IV diuresis. -I&Os neg 4.9L /24hours and net neg 7.3L this admit. Weight down overall ~18lbs if accurate. -Renal function/electrolytes stable. -Today, he appears euvolemic on exam. Stop IV Bumex and start PO Lasix 40mg daily tomorrow. -GDMT: Increase metoprolol to 50mg daily. Continue middose Entresto, spironolactone 25mg daily, and dapagliflozin 10mg daily. -Strict I/Os, daily standing weights, 1.8L fluid restriction, 2gm Na diet #CAD -Most recent catheterization was completed in February 2024 at [facility] - [facility] and demonstrated patent stents with moderate disease. -Denies chest pain. -Continue medical therapy: ASA, BB. -No statin d/t myalgias. #Hyperlipidemia -LDL above target at 124. -Pt declines statin d/t hx myalgias. -Consider Zetia/Repatha outpatient. #CKD stage III -Scr baseline appears to be ~1.5. -Scr stable 1.3->1.47 today. -Diuretics as noted above. -BMP at first follow-up appt. #ELBERT -Dx ~30 years ago per pt. Off treatment. -Will need outpatient sleep study. Discussed with Dr. [place]. Cardiology will sign off. Cardiology Discharge/Sign-off Recommendations Cardiology medications to continue: [x] All cardiac medications as ordered currently Lasix 40mg daily, middose Entresto, metoprolol succinate 50mg daily, spironolactone 25mg daily, and dapagliflozin 10mg daily, ASA 81mg daily. Followup testing recommended as an outpatient: [x] Will be arranged by Cardiology BMP at first f/u Cardiology followup: [x] Arranged as follows: Sabrina Kam PA-C on 01/30 (pt requesting to switch care to [facility]) If there are any questions/concerns, please contact the covering provider. 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 Medications: aspirin, 81 mg, Oral, Daily bumetanide, 1 mg, IntraVENous, q12h cetirizine, 5 mg, Oral, Daily dapagliflozin, 10 mg, Oral, Daily enoxaparin, 40 mg, SubCUTAneous, q24h insulin glargine, 22 Units, SubCUTAneous, Nightly insulin lispro, 0-12 Units, SubCUTAneous, TID WC And insulin lispro, 0-12 Units, SubCUTAneous, Nightly ipratropium-albuterol, 3 mL, Nebulization, TID levothyroxine, 125 mcg, Oral, qAM AC metoprolol succinate XL, 25 mg, Oral, Daily mirtazapine, 15 mg, Oral, Nightly mometasone-formoterol, 2 puff, Inhalation, BID nicotine, 1 patch, TransDERmal, Daily sacubitril-valsartan, 1 tablet, Oral, BID spironolactone, 25 mg, Oral, Daily Infusion Medications: Physical Examination: Vitals: 01/15/25 2025 01/15/25 2237 01/16/25 0300 01/16/25 0402 BP: 139/97 136/91 129/92 BP Location: Right arm Left arm Right arm Patient Position: Sitting Sitting Lying Pulse: 92 86 87 Resp: 18 16 14 Temp: 36.2 ?C (97.1 ?F) 36.2 ?C (97.1 ?F) 36.2 ?C (97.1 ?F) TempSrc: Temporal Temporal Temporal SpO2: 92% 95% 91% Weight: 282 lb 3.2 oz (128 kg) Height: Intake/Output Summary (Last 24 hours) at 01/16/2025 0753 Last data filed at 01/16/2025 0637 Gross per 24 hour Intake 760 ml Output 4975 ml Net -4215 ml Patient Vitals for the past 168 hrs: Weight Weight Method 01/16/25 0300 282 lb 3.2 oz (128 kg) Standing scale 01/15/25 0336 291 lb 3.2 oz (132 kg) Standing scale 01/14/25 1831 300 lb (136 kg) -- 01/13/25 1726 300 lb (136 kg) Stated Physical Exam Vitals reviewed. Constitutional: General: He is not in acute distress. Appearance: Normal appearance. He is obese. HENT: Head: Normocephalic and atraumatic. Neck: Vascular: No JVD. Cardiovascular: Rate and Rhythm: Normal rate and regular rhythm. Heart sounds: No murmur heard. No friction rub. No gallop. Pulmonary: Effort: Pulmonary effort is normal. Breath sounds: No wheezing, rhonchi or rales. Abdominal: General: There is no distension. Tenderness: There is no abdominal tenderness. Musculoskeletal: Right lower leg: No edema. Left lower leg: No edema. Skin: General: Skin is warm and dry. Capillary Refill: Capillary refill takes less than 2 seconds. Neurologica (more content not included)... [facility] 01-16-2025 Plan of care note Problem: Knowledge Deficit Goal: Patient/family/caregiver demonstrates understanding of disease process, treatment plan, medications, and discharge instructions Outcome: Progressing Problem: Hemodynamic Status Goal: Patient's vitals signs are stable Outcome: Progressing Problem: Excessive Fluid Volume Goal: Fluid and electrolyte balance are achieved/maintained Outcome: Progressing Problem: Inadequate Gas Exchange Goal: Patient is adequately oxygenated and ventilation is improved Outcome: Progressing Goal: Nutritional status is improving Outcome: Progressing Problem: Activity Intolerance/Impaired Mobility Goal: Mobility/activity is maintained at optimum level for patient Outcome: Progressing Problem: Nutrition Goal: Nutritional status is improving Outcome: Progressing Problem: Potential for Falls Goal: I will remain free of falls Outcome: Progressing Problem: Discharge Barriers Goal: My discharge needs are met Outcome: Progressing [facility] 01-15-2025 Plan of care note Problem: Knowledge Deficit Goal: Patient/family/caregiver demonstrates understanding of disease process, treatment plan, medications, and discharge instructions Outcome: Progressing Problem: Hemodynamic Status Goal: Patient's vitals signs are stable Outcome: Progressing Problem: Excessive Fluid Volume Goal: Fluid and electrolyte balance are achieved/maintained Outcome: Progressing [facility] 01-15-2025 Note Hospitalist Progress Note 01/15/2025 9:46 AM [phone]: Please page me for patient care issues. [phone]: Please page [facility] night Hospitalist for any issues. Subjective: Admit Date: 01/13/2025 PCP: No primary care provider on file. Room#: W5526/W5526 A Interval History: Patient seen and examined Breathing is improving Denies any chest pain, cough, sputum No nausea, vomiting, abdominal pain Lower extremity cramp has improved significantly since switched from IV Lasix to IV Bumex. No fever spike noted Lab data's / Imaging studies reviewed Potassium 3.5, creatinine 1.3, magnesium 1.9, hemoglobin 16.9, TSH within normal limits Venous Doppler both lower extremity negative for DVT Echo showed EF of 35%, grade 3 diastolic dysfunction, RVSP 47 Past medical history : Past Medical History: Diagnosis Date CAD (coronary artery disease) CHF (congestive heart failure) (HCC) Depression Hyperlipidemia Hypertension OK (mitral incompetence) Adult diet Regular; Low Sodium (2 gm); 4 carb choices (60 gm/meal) @[id number]@ Medications: aspirin, 81 mg, Oral, Daily bumetanide, 1 mg, IntraVENous, q12h cetirizine, 5 mg, Oral, Daily dapagliflozin, 10 mg, Oral, Daily enoxaparin, 40 mg, SubCUTAneous, q24h insulin glargine, 20 Units, SubCUTAneous, Nightly insulin lispro, 0-12 Units, SubCUTAneous, TID WC And insulin lispro, 0-12 Units, SubCUTAneous, Nightly ipratropium-albuterol, 3 mL, Nebulization, 4x daily levothyroxine, 125 mcg, Oral, qAM AC metoprolol succinate XL, 25 mg, Oral, Daily mirtazapine, 15 mg, Oral, Nightly mometasone-formoterol, 2 puff, Inhalation, BID nicotine, 1 patch, TransDERmal, Daily potassium chloride CR, 20 mEq, Oral, Once sacubitril-valsartan, 1 tablet, Oral, BID spironolactone, 25 mg, Oral, Daily LABS: CBC: Recent Labs 01/13/25192601/14/25 0704 01/15/25 0009 WBC 9.4 8.7 8.7 RBC 5.84 5.55 5.76 HGB 17.2 16.6 16.9 HCT 52.2* 50.1 51.0 MCV 89.4 90.3 88.5 RDW 13.6 13.6 13.7 PLT 190 219 195 BMP: Recent Labs 01/13/25192601/14/25 0704 01/15/25 0009 NA 137 137 138 K 3.9 4.1 3.5 CL 101 99 102 CO2 27 30 25 BUN 14 13 21 CREATININE 1.31* 1.20 1.30* GLUCOSE 171* 147* 223* CALCIUM 8.8 8.6* 8.5* ANIONGAP 9 8 11 LIVER PROFILE: Recent Labs 01/13/251926 AST 26 ALT 22 BILITOT 0.6 ALKPHOS 67 PROT 6.5 PT/INR: No results for input(s): PROTIME, INR in the last 72 hours. CARDIAC ENZYMES: No results for input(s): TROPONINI in the last 72 hours. Procalcitonin: No results found for: PROCAL @[email or web address]@ I reviewed: [x] laboratory results [x] radiographic results At the time of today's encounter. Pt was informed about the results. Objective: Vitals: BP 139/94 (BP Location: Left arm, Patient Position: Sitting) Pulse 82 Temp 36.2 ?C (97.2 ?F) (Temporal) Resp 18 Ht 5' 7 (1.702 m) Wt 291 lb 3.2 oz (132 kg) SpO2 92% BMI 45.61 kg/m? Pulse Ox: SpO2 Av % Min: 92 % Max: 98 % Supplemental O2: General appearance: No apparent distress, HEENT: Eyes:No pallor Morbid obese male Oral: Tongue is semi-moist Cardiovascular: S1S2 heard, RRR Respiratory: Good air entry bilateral anteriorly decrease breath sound both bases posteriorly Abdomen: Soft, non-tender, non-distended, no mass palpable with normal bowel sounds. Neurology- Awake alert, answering questions Moving all 4 extremity Extremity-pitting peripheral edema both lower extremities Assessment Acute problems-- Acute on chronic heart failure with reduced ejection fraction exacerbation CAD with previous PCI Chronic kidney disease, stage III Hypertension Medication noncompliance Chronic issue-- CAD with PCI DM Hypertension Hyperlipidemia Morbid obesity ELBERT noncompliant with CPAP Hypothyroidism Chronic smoking history CKD stage III baseline creatinine 1.2-1.4 COPD Plan Continue IV Bumex 1 mg twice daily, cardiology team following BMP panel in a.m. Potassium level borderline, ordered 20 mEq of p.o. potassium today Continue Farxiga/Toprol/Entresto/Aldactone as ordered Accu-Cheks reviewed, continue ADA 1800/cardiac diet, Lantus 20 units at bedtime. Change sliding scale insulin to medium dose Continue scheduled DuoNebs every 6 hours/Dulera inhaler as ordered Lovenox for DVT prophylaxis Continue rest of medication as ordered BMP panel in a.m. Patient was informed about all work up and treatment plan Toxic drug monitoring/narrow therapeutic index drug monitoring : # Drug name : Insulin # Route administered : Subcu # Method of monitoring : Accu-Chek No emergency contact information on file. Advance Directive: Full Code Discharge planning: Anticipated discharge in 3 days NOTE: This report was transcribed using voice recognition software. Every effort was made to ensure accuracy; however, inadvertent computerized polygraph examiner errors may be present. MD Trini Paredes (more content not included)... [facility] 01-15-2025 Note [facility] Cardiology /Electrophysiology Progress Note HPI / Interval History: Venkat Marsh is a 59 y.o. male with known CAD s/p remote OK with PCI to LAD in 2011, hypertension, hyperlipidemia, T2DM, ELBERT not on CPAP therapy, tobacco abuse and morbid obesity presented with worsening SOB, lower leg edema, abdominal distension, weight gain in the setting of medication non-compliance for 1 month. Currently the pt reports he is feeling much better and slept the best he has in 6 months last night. Reports breathing and edema have improved. Denies chest pain, palps or dizziness. Assessment/Plan HF NYHA Class [] I [] II [x] III [] IV []Unable to assess [] N/A Acute on chronic HFrEF/ nonischemic cardiomyopathy complicated with RV dysfunction- EF 17% prior and 35% on echo yesterday with mildly reduced RV function- restarted on GDMT yesterday- improving- currently down 9 lbs- bp remains elevated - will increase entresto 49/51 mg bid- cont metoprolol succinate, farxiga, spironolactone- can likely transition to oral loop diuretic therapy tomorrow- pt requesting to establish with HF clinic at [facility] CAD s/p remote PCI with most recent [facility] 04/13 [facility] showing patent stents with moderate disease with recommendations for continued medical therapy- on ASA, metoprolol, farxiga- pt reports intolerance to statin therapy secondary to myalgias and declines trying different cholesterol medication CKD- stable DM type 2- management per primary ELBERT- diagnosed 30 years ago per pt- off treatment- will need outpt sleep study Medications: aspirin, 81 mg, Oral, Daily bumetanide, 1 mg, IntraVENous, q12h cetirizine, 5 mg, Oral, Daily dapagliflozin, 10 mg, Oral, Daily enoxaparin, 40 mg, SubCUTAneous, q24h insulin glargine, 20 Units, SubCUTAneous, Nightly insulin lispro, 0-12 Units, SubCUTAneous, TID WC And insulin lispro, 0-12 Units, SubCUTAneous, Nightly ipratropium-albuterol, 3 mL, Nebulization, 4x daily levothyroxine, 125 mcg, Oral, qAM AC metoprolol succinate XL, 25 mg, Oral, Daily mirtazapine, 15 mg, Oral, Nightly mometasone-formoterol, 2 puff, Inhalation, BID nicotine, 1 patch, TransDERmal, Daily potassium chloride CR, 20 mEq, Oral, Once sacubitril-valsartan, 1 tablet, Oral, BID spironolactone, 25 mg, Oral, Daily Infusion Medications: Physical Examination: Vitals: 01/14/25 2222 01/15/25 0336 01/15/25 0725 01/15/25 0749 BP: 113/75 (!) 151/104 139/94 BP Location: Right arm Right arm Left arm Patient Position: Lying Lying Sitting Pulse: 80 85 82 Resp: 18 18 18 Temp: 36.2 ?C (97.2 ?F) 36.2 ?C (97.1 ?F) 36.2 ?C (97.2 ?F) TempSrc: Temporal Temporal Temporal SpO2: 97% 95% 92% 92% Weight: 291 lb 3.2 oz (132 kg) Height: Intake/Output Summary (Last 24 hours) at 01/15/2025 0944 Last data filed at 01/15/2025 0749 Gross per 24 hour Intake 1930 ml Output 5050 ml Net -3120 ml Patient Vitals for the past 168 hrs: Weight Weight Method 01/15/25 0336 291 lb 3.2 oz (132 kg) Standing scale 01/14/25 1831 300 lb (136 kg) -- 01/13/25 1726 300 lb (136 kg) Stated Physical Exam Constitutional: NAD Psychiatric: Alert. Medical insight good Neck: No JVD Respiratory: Lungs are diminished bilaterally Heart: RRR ; Nl S1 and S2, no murmur, no rub, gallop Abdomen: NABS; soft, non-tender, non-distended Extremities: 1+ LE edema Skin: Warm to touch and well perfused Laboratory Tests: TROPONIN I, CONVENTIONAL SENSITIVITY No results found for: CKTOTAL, CKMB, CKMBINDEX, TROPONINI TROPONIN I, HIGH SENSITIVITY Troponin HS Serial Baseline Date Value Ref Range Status 01/13/2025 24 <=35 ng/L Final Comment: In individuals presenting with symptoms > 2h, a baseline troponin <= 5 ng/L suggests acute cardiac injury is unlikely and further serial testing is generally not indicated. 2h Troponin HS (Serial 2nd Troponin) Date Value Ref Range Status 01/13/2025 22 <=35 ng/L Final Comment: 2h troponin (2nd troponin) samples collected between 1h 40 min and 2h and 20 min of the baseline collection time can be utilized to interpret delta troponins as per [employer] algorithms. Samples collected outside this timeframe need to be interpreted clinically. Rising or falling troponin delta below 2 ng/L as compared to baseline value suggests that acute cardiac injury is unlikely. No results found for: TROPDELTBASE 4h Troponin HS (Serial 3rd Troponin) Date Value Ref Range Status 01/14/2025 21 <=35 ng/L Final Comment: 4h troponin (3rd troponin) samples collected between 1h 40 min and 2h and 20 min of the 2h troponin collection time can be utilized to interpret delta troponins as per [employer] algorithms. Samples collected outside this timeframe need to be interpreted clinically. Rising or falling troponin delta below 2 ng/L as compared to 2h troponin value suggests that acute cardiac injury is unlikely. No results found for: TROPDELTSEC Recent La (more content not included)... [facility] 01-15-2025 Note [facility] Respiratory Care Department Progress Note As part of the Respiratory Assessment Program (RAP), the following Respiratory Therapist evaluation has been completed, including a chart review and clinical/physical assessment. Respiratory Therapist RAP Evaluation Guideline Points 0 1 2 3 4 Points Strongly Consider History Factor No Pulmonary conditions Stable Pulmonary condition(s) Surgery or Intervention that may impact Pulmonary system (at risk) Surgery or Intervention that is impacting Pulmonary system Active Exacerbation of Pulmonary Condition 1 Respiratory Pattern Regular, RR= 12-18 BRASWELL or Increased RR= 19-24 Irregular, or RR= 25-30 SOB, talk in short sentences, or RR= 31-35 Severe SOB, accessory muscle use, one word answers, or RR>35 0 Aerosol Med(s), High Flow O2 Breath Sounds Clear Diminished in 1 lobe Diminished in <= 2 lobes Adventitious breath sounds Coarse crackles, Wheezes, or Diminished in >2 lobes 4 Aerosol Med(s), Bronchial Hygiene, Hyperinflation Cough & Sputum Strong cough, no secretion retention or production Weak cough, no secretion retention or production Weak cough, w/ production (less often than Q2hr), or secretion retention No cough, w/ secretion retention or production (less often than Q2hr) Significant secretion production (more often than Q2hr) or mucus plug 0 Aerosol Med(s), Bronchial Hygiene, Hyperinflation Level of Activity Ambulatory Ambulatory with Assist Up in chair or edge of bed (dangle) Non-ambulatory, bedridden with active ROM Completely paralyzed or without active ROM 1 Triage 5 0-2 Triage 4 3-5 Triage 3 6-10 Triage 2 11-14 Triage 1 >=15 Total 6 Triage Score = 3 TRIAGE SCORING - SUGGESTED FREQUENCIES Aerosol Therapy Bronchial Hygiene Hyperinflation Triage Score Q4h & PRN 1 Q4hWA (QID) & PRN 2 TID & PRN 3 BID & PRN 4 PRN 5 Therapy(s) Indicated Yes/No Aerosol Medication y Hyperinflation Bronchial Hygiene High Flow Oxygen RT to enter/modify frequency of treatment order in EMR/EHR to match this RAP evaluation. Based on this RAP evaluation the following therapy is being initiated: svn At the following frequency: tid Comments: Thank you for involving Respiratory in the care of this patient, [facility] 01-15-2025 Plan of care note Problem: Knowledge Deficit Goal: Patient/family/caregiver demonstrates understanding of disease process, treatment plan, medications, and discharge instructions Outcome: Progressing Problem: Hemodynamic Status Goal: Patient's vitals signs are stable Outcome: Progressing Problem: Excessive Fluid Volume Goal: Fluid and electrolyte balance are achieved/maintained Outcome: Progressing Problem: Inadequate Gas Exchange Goal: Patient is adequately oxygenated and ventilation is improved Outcome: Progressing Goal: Nutritional status is improving Outcome: Progressing Problem: Activity Intolerance/Impaired Mobility Goal: Mobility/activity is maintained at optimum level for patient Outcome: Progressing Problem: Nutrition Goal: Nutritional status is improving Outcome: Progressing Problem: Potential for Falls Goal: I will remain free of falls Outcome: Progressing Problem: Discharge Barriers Goal: My discharge needs are met Outcome: Progressing [facility] 01-14-2025 Nurse Note Gave pt another urinal to use and educated him on the importance of measuring his urine output while being on IV bumex. Pt voiced understanding. At 2200, I went in to check on the pt and he was using the bathroom, when he came out he still did not use the urinal. Education was again provided. [facility] 01-14-2025 Consult note Associated Order (s): IP CONSULT TO CARDIOLOGY [facility] [place] [facility]/ Electrophysiology Consult Note Reason for Consult/Chief Complaint: SOB Consulting MD: Dr. Bahena History of Present Illness: Venkat Marsh is a 59 y.o. male with known CAD s/p remote OK with PCI to LAD in 2011, hypertension, hyperlipidemia, T2DM, ELBERT not on CPAP therapy, tobacco abuse and morbid obesity presented with worsening SOB, lower leg edema, abdominal distension, weight gain in the setting of medication non-compliance for 1 month. He complains of whole body cramps due to lasix as per patient/ He has had same symptoms in the past. He continues to c/o SOB, abdominal distension. He denies CP, palpitations, recent syncopal episodes. ECG: NSR, no ischemic changes Left heart cath 03/2024 mild coronary disease Ejection fraction 03/2024 was 17% diastolic not evaluated due to AF LHC at [facility] 03/2024 LAD: The proximal LAD is narrowed 20 % - ISR. Additional Comment: Has mild diffuse disease throughout. There is a patent stent in the proximal LAD. The proximal stage of the stent has focal 20% stenosis. LCX: _ The proximal circumflex is narrowed 40 % - ostial. Additional Comment: Has ostial 40% stenosis. RAMUS: _ Ramus Status: Not Applicable. RCA: The proximal RCA is narrowed 20 % - ISR. Additional Comment: Has patent stent in the proximal portion. It has mild ISR. Left Ventriculogram:Mildly elevated at 17 mmHg. Echo 03/2024 The left ventricle is mildly dilated. There is mild concentric left ventricular hypertrophy. Left ventricular systolic function is severely decreased. EF = 17 5% (2D biplane) Definity contrast used for endocardial border detection. Left ventricular diastolic function was not evaluated due to AF. Severe diffuse hypokinesis - The right ventricle is dilated. Right ventricular systolic function is moderately decreased. - The left atrial cavity is mildly dilated. - The right atrial cavity is dilated. - The visualized aorta is dilated with a maximal dimension of 4.1 cm. - Estimated right ventricular systolic pressure is 56 mmHg consistent with moderate pulmonary hypertension. Estimated right atrial pressure is 15 mmHg based on IVC assessment. Past Medical History: Past Medical History: Diagnosis Date CAD (coronary artery disease) CHF (congestive heart failure) (HCC) Depression Hyperlipidemia Hypertension OK (mitral incompetence) Past Surgical History: Past Surgical History: Procedure Laterality Date CORONARY ANGIOPLASTY WITH STENT PLACEMENT Family History: No family history on file. Social History: Social History Tobacco Use Smoking status: Every Day Current packs/day: 0.50 Types: Cigarettes Substance Use Topics Alcohol use: No Drug use: No Medications: amLODIPine, 2.5 mg, Oral, Daily aspirin, 81 mg, Oral, Daily cetirizine, 5 mg, Oral, Daily enoxaparin, 40 mg, SubCUTAneous, q24h furosemide, 80 mg, IntraVENous, BID insulin glargine, 20 Units, SubCUTAneous, Nightly insulin lispro, 0-6 Units, SubCUTAneous, TID WC And insulin lispro, 0-6 Units, SubCUTAneous, Nightly ipratropium-albuterol, 3 mL, Nebulization, 4x daily levothyroxine, 125 mcg, Oral, qAM AC metoprolol succinate XL, 25 mg, Oral, Daily mirtazapine, 15 mg, Oral, Nightly mometasone-formoterol, 2 puff, Inhalation, BID Allergies: Reviewed Review of Systems: All other systems were reviewed and are negative other than as noted in the HPI. Physical Examination: Vitals: Blood pressure 121/88, pulse 80, temperature 36.3 C (97.4 F), temperature source Temporal, resp. rate 16, height 5' 7 (1.702 m), weight 300 lb (136 kg), SpO2 94%. @IODETAILS@ @[id number]@ Constitutional: No acute distress. Well-nourished. Well hydrated. Psychiatric: A &O x 3. Mood is normal. Affect is appropriate. Eyes: Pupils are equal and round; Conjunctiva are not injected; Sclera are non-icteric. ENMT: Ears/nose without external abnormalities. Oral mucosa is pink and moist. Neck: elevated JVD. No carotid bruits; No thyromegaly. Respiratory: Lungs are diminished sounds. No rales or wheezes. Respiratory effort is normal and symmetrical bilaterally; Good air movement bilaterally. Heart: ; Normal S1 and S2. no murmur; No rub; no gallop. Vasc: Peripheral pulses normal. Abdomen: Normal BS, soft, non-tender, non-distended; no hepatomegaly. Extremities/Skin: +1 LE edema; Skin warm to touch and well perfused; skin coloration is red. Musculoskeletal: Head - normocephalic. Neck - supple Laboratory Tests: @[id number](WBC:5,HGB:5,HCT:5,M CV:5,PLT:5)@ @[id number](NA:5,K:5,CL:5,CO2:5 ,BUN:5,Creatinine:5, GLU:5)@ Lab Results Component Value Date HGBA1C 9.2 (H) 01/13/2025 No results found for: TSH No results found for: CHOL No results found for: HDL No results found for: LDLCALC No results found for: TRIG No results found for: CHOLHDL @[id number](CKTOTAL:5,CKMB:5,CK MBINDEX:5,TROPONINI:5)@ No components found for: NTPROBNP No components found for: LVEF, LVEFMODE Radiology: CXR: personally reviewed: Cardiac Tests Personally Reviewed: ANABELLE Score Link Assessment/Plan NYHA Class [] I [] II [x] III [] IV Acute on chronic heart failure with reduced EF 17% in 04/13 10/23 [facility]. Patient is volume overloaded and warm on exam. -given the leg cramps will switch lasix to bumex iv 1mg bid then will increase as tolerated -check Mg -start Entresto 24-26 mg bid -start spironolactone 25mg daily -start Farxiga 10mg tomorrow in AM -discontinue Amlodipine -Echo is pending CAD moderate No chest pain -aspirin, statin ELBERT -rec CPAP Lower leg pain ? -US DVT Nini Crews MD DATE of SERVICE: 01/14/2025 [facility] Work Phone: 01-14-2025 Consult note Associated Order (s): IP CONSULT TO CARDIOLOGY [facility] [place] [facility] Cardiology/ Electrophysiology Consult Note Reason for Consult/Chief Complaint: SOB Consulting MD: Dr. Bahena History of Present Illness: Venkat Marsh is a 59 y.o. male with known CAD s/p remote OK with PCI to LAD in 2011, hypertension, hyperlipidemia, T2DM, ELBERT not on CPAP therapy, tobacco abuse and morbid obesity presented with worsening SOB, lower leg edema, abdominal distension, weight gain in the setting of medication non-compliance for 1 month. He complains of whole body cramps due to lasix as per patient/ He has had same symptoms in the past. He continues to c/o SOB, abdominal distension. He denies CP, palpitations, recent syncopal episodes. ECG: NSR, no ischemic changes Left heart cath 03/2024 mild coronary disease Ejection fraction 03/2024 was 17% diastolic not evaluated due to AF C at [facility] 03/2024 LAD: The proximal LAD is narrowed 20 % - ISR. Additional Comment: Has mild diffuse disease throughout. There is a patent stent in the proximal LAD. The proximal stage of the stent has focal 20% stenosis. LCX: _ The proximal circumflex is narrowed 40 % - ostial. Additional Comment: Has ostial 40% stenosis. RAMUS: _ Ramus Status: Not Applicable. RCA: The proximal RCA is narrowed 20 % - ISR. Additional Comment: Has patent stent in the proximal portion. It has mild ISR. Left Ventriculogram:Mildly elevated at 17 mmHg. Echo 03/2024 The left ventricle is mildly dilated. There is mild concentric left ventricular hypertrophy. Left ventricular systolic function is severely decreased. EF = 17 5% (2D biplane) Definity contrast used for endocardial border detection. Left ventricular diastolic function was not evaluated due to AF. Severe diffuse hypokinesis - The right ventricle is dilated. Right ventricular systolic function is moderately decreased. - The left atrial cavity is mildly dilated. - The right atrial cavity is dilated. - The visualized aorta is dilated with a maximal dimension of 4.1 cm. - Estimated right ventricular systolic pressure is 56 mmHg consistent with moderate pulmonary hypertension. Estimated right atrial pressure is 15 mmHg based on IVC assessment. Past Medical History: Past Medical History: Diagnosis Date CAD (coronary artery disease) CHF (congestive heart failure) (HCC) Depression Hyperlipidemia Hypertension OK (mitral incompetence) Past Surgical History: Past Surgical History: Procedure Laterality Date CORONARY ANGIOPLASTY WITH STENT PLACEMENT Family History: No family history on file. Social History: Social History Tobacco Use Smoking status: Every Day Current packs/day: 0.50 Types: Cigarettes Substance Use Topics Alcohol use: No Drug use: No Medications: amLODIPine, 2.5 mg, Oral, Daily aspirin, 81 mg, Oral, Daily cetirizine, 5 mg, Oral, Daily enoxaparin, 40 mg, SubCUTAneous, q24h furosemide, 80 mg, IntraVENous, BID insulin glargine, 20 Units, SubCUTAneous, Nightly insulin lispro, 0-6 Units, SubCUTAneous, TID WC And insulin lispro, 0-6 Units, SubCUTAneous, Nightly ipratropium-albuterol, 3 mL, Nebulization, 4x daily levothyroxine, 125 mcg, Oral, qAM AC metoprolol succinate XL, 25 mg, Oral, Daily mirtazapine, 15 mg, Oral, Nightly mometasone-formoterol, 2 puff, Inhalation, BID Allergies: Reviewed Review of Systems: All other systems were reviewed and are negative other than as noted in the HPI. Physical Examination: Vitals: Blood pressure 121/88, pulse 80, temperature 36.3 C (97.4 F), temperature source Temporal, resp. rate 16, height 5' 7 (1.702 m), weight 300 lb (136 kg), SpO2 94%. @IODETAILS@ @[id number]@ Constitutional: No acute distress. Well-nourished. Well hydrated. Psychiatric: A &O x 3. Mood is normal. Affect is appropriate. Eyes: Pupils are equal and round; Conjunctiva are not injected; Sclera are non-icteric. ENMT: Ears/nose without external abnormalities. Oral mucosa is pink and moist. Neck: elevated JVD. No carotid bruits; No thyromegaly. Respiratory: Lungs are diminished sounds. No rales or wheezes. Respiratory effort is normal and symmetrical bilaterally; Good air movement bilaterally. Heart: ; Normal S1 and S2. no murmur; No rub; no gallop. Vasc: Peripheral pulses normal. Abdomen: Normal BS, soft, non-tender, non-distended; no hepatomegaly. Extremities/Skin: +1 LE edema; Skin warm to touch and well perfused; skin coloration is red. Musculoskeletal: Head - normocephalic. Neck - supple Laboratory Tests: @[id number](WBC:5,HGB:5,HCT:5,M CV:5,PLT:5)@ @[id number](NA:5,K:5,CL:5,CO2:5 ,BUN:5,Creatinine:5, GLU:5)@ Lab Results Component Value Date HGBA1C 9.2 (H) 01/13/2025 No results found for: TSH No results found for: CHOL No results found for: HDL No results found for: LDLCALC No results found for: TRIG No results found for: CHOLHDL @[id number](CKTOTAL:5,CKMB:5,CK MBINDEX:5,TROPONINI:5)@ No components found for: NTPROBNP No components found for: LVEF, LVEFMODE Radiology: CXR: personally reviewed: Cardiac Tests Personally Reviewed: ANABELLE Score Link Assessment/Plan NYHA Class [] I [] II [x] III [] IV Acute on chronic heart failure with reduced EF 17% in 04/13 10/23 NICM. Patient is volume overloaded and warm on exam. -given the leg cramps will switch lasix to bumex iv 1mg bid then will increase as tolerated -check Mg -start Entresto 24-26 mg bid -start spironolactone 25mg daily -start Farxiga 10mg tomorrow in AM -discontinue Amlodipine -Echo is pending CAD moderate No chest pain -aspirin, statin ELBERT -rec CPAP Lower leg pain ? -US DVT Nini Crews MD DATE of SERVICE: 01/14/2025 documented in this encounter [facility] 01-14-2025 Plan of care note Problem: Knowledge Deficit Goal: Patient/family/caregiver demonstrates understanding of disease process, treatment plan, medications, and discharge instructions Outcome: Progressing Problem: Hemodynamic Status Goal: Patient's vitals signs are stable Outcome: Progressing Problem: Excessive Fluid Volume Goal: Fluid and electrolyte balance are achieved/maintained Outcome: Progressing [facility] 01-14-2025 Note Hospitalist Progress Note 01/14/2025 7:55 AM [phone]: Please page me for patient care issues. [phone]: Please page [facility] night Hospitalist for any issues. Subjective: Admit Date: 01/13/2025 PCP: No primary care provider on file. Room#: 43/43 Interval History: Patient seen and examined Admitted following shortness of breath, leg swelling, weight gain. Patient denies any chest pain, cough, sputum No nausea, vomiting, abdominal pain Patient was noncompliant with treatment, was not taking medication for past few months due to lack of insurance. No fever spike noted Saturation was 93 to 96% on room air Lab data's / Imaging studies reviewed Potassium 3.9, creatinine 1.3, glucose 171, troponin negative, hemoglobin 16.6 EKG reviewed independently by me showed sinus rhythm, prolonged UT interval COVID/influenza/RSV negative Chest x-ray negative for acute process Past medical history : Past Medical History: Diagnosis Date CAD (coronary artery disease) CHF (congestive heart failure) (HCC) Depression Hyperlipidemia Hypertension OK (mitral incompetence) Adult diet Regular; Low Sodium (2 gm); 4 carb choices (60 gm/meal) @[id number]@ Medications: amLODIPine, 2.5 mg, Oral, Daily aspirin, 81 mg, Oral, Daily cetirizine, 5 mg, Oral, Daily enoxaparin, 40 mg, SubCUTAneous, q24h furosemide, 80 mg, IntraVENous, BID insulin glargine, 20 Units, SubCUTAneous, Nightly insulin lispro, 0-6 Units, SubCUTAneous, TID WC And insulin lispro, 0-6 Units, SubCUTAneous, Nightly ipratropium-albuterol, 3 mL, Nebulization, 4x daily levothyroxine, 125 mcg, Oral, qAM AC metoprolol succinate XL, 25 mg, Oral, Daily mirtazapine, 15 mg, Oral, Nightly mometasone-formoterol, 2 puff, Inhalation, BID LABS: CBC: Recent Labs 01/13/25192601/14/25 0704 WBC 9.4 8.7 RBC 5.84 5.55 HGB 17.2 16.6 HCT 52.2* 50.1 MCV 89.4 90.3 RDW 13.6 13.6 PLT 190 219 BMP: Recent Labs 01/13/25192601/14/25 0704 NA 137 137 K 3.9 4.1 CL 101 99 CO2 27 30 BUN 14 13 CREATININE 1.31* 1.20 GLUCOSE 171* 147* CALCIUM 8.8 8.6* ANIONGAP 9 8 LIVER PROFILE: Recent Labs 01/13/251926 AST 26 ALT 22 BILITOT 0.6 ALKPHOS 67 PROT 6.5 PT/INR: No results for input(s): PROTIME, INR in the last 72 hours. CARDIAC ENZYMES: No results for input(s): TROPONINI in the last 72 hours. Procalcitonin: No results found for: PROCAL @[email or web address]@ I reviewed: [x] laboratory results [x] radiographic results At the time of today's encounter. Pt was informed about the results. Objective: Vitals: BP 116/89 Pulse 84 Temp (!) 35.9 ?C (96.6 ?F) (Temporal) Resp 14 Ht 5' 7 (1.702 m) Wt 300 lb (136 kg) SpO2 93% BMI 46.99 kg/m? Pulse Ox: SpO2 Av.3 % Min: 93 % Max: 97 % Supplemental O2: General appearance: No apparent distress, HEENT: Eyes:No pallor Morbid obese male Oral: Tongue is semi-moist Cardiovascular: S1S2 heard, RRR Respiratory: Bilateral scattered expiratory wheeze anterior/posteriorly decrease breath sound both bases posteriorly Abdomen: Soft, non-tender, non-distended, no mass palpable with normal bowel sounds. Musculoskeletal: No obvious deformities seen Skin: No visible rashes or lesions. Neurology- Awake alert, answering questions Moving all 4 extremity Extremity-pitting peripheral edema both lower extremities Assessment Acute problems-- Acute on chronic heart failure with reduced ejection fraction exacerbation CAD with previous PCI Chronic kidney disease Hypertension Medication noncompliance Chronic issue-- CAD with PCI DM Hypertension Hyperlipidemia Morbid obesity ELBERT noncompliant with CPAP Hypothyroidism Chronic smoking history CKD stage III baseline creatinine 1.2-1.4 COPD Plan Continue IV Lasix 80 mg twice daily Echo ordered Venous Doppler both lower extremity ordered Cardiology team consulted BMP, magnesium level in a.m. Continue Toprol-XL/Norvasc as ordered for hypertension. Change diet to ADA 1800/cardiac diet Continue Lantus/low-dose sliding scale insulin as ordered DuoNeb every 6 hours scheduled Started on Dulera inhaler 2 puff twice daily Lovenox for DVT prophylaxis Continue rest of medication as ordered Labs ordered for AM Patient was informed about all work up and treatment plan Discussed with nursing staff in ED Toxic drug monitoring/narrow therapeutic index drug monitoring : # Drug name : Insulin # Route administered : Subcu # Method of monitoring : Accu-Chek No emergency contact information on file. Advance Directive: Full Code Discharge planning: Anticipated discharge in 3 days NOTE: This report was transcribed using voice recognition software. Every effort was made to ensure accuracy; however, inadvertent computerized polygraph examiner errors may be present. Praful Bahena MD Division of Hospitalist Medicine Acute [facility] PAGER: [facility] 01-14-2025 Emergency department Note Report received from Courtney. Pt re enters my care at this time [facility] 01-14-2025 Emergency department Note Report received from Courtney. Pt re enters my care at this time Report given to Courtney. Pt exits my care at this time Report to SUZAN Interiano Emergency Department Encounter [facility] EMERGENCY DEPT Patient: Venkat Marsh : 1965 Date of Evaluation: 01/13/2025 ED Provider: Taqueria Taylor MD TRIAGE NOTE I independently examined and evaluated Venkat Marsh. I personally saw & evaluated the patient as the Clinician in Triage and performed a brief history and physical exam, established acuity, and ordered appropriate tests to develop basic plan of care. Patient will be seen by an TACO, resident and/or my physician partner who will independently evaluate the patient. Please see subsequent provider notes for further details and disposition Brief HPI: In brief, Venkat Marsh is a 59 y.o. male that presents for shortness of breath exertional dyspnea, patient states that he had bilateral leg edema and weight gain he was diagnosed with congestive heart failure but he has not been taking his diuretic. He also states that he was diagnosed with pneumonia couple weeks ago at [facility] and just finished a course of antibiotics. He says he has some tenderness along his abdominal wall where he gained a lot of weight but is read as well 2. No chest pain no fever no hemoptysis.. Focused Physical exam: Lungs: Crackles in both bases no wheeze retractions cyanosis HEART: Regular rate and rhythm no murmur or thrill or rub, strong heart tones Abdomen: There is some generalized erythema about his periumbilical region, is not warm there is no fluctuance or abscess he has no significant tenderness, he is 300 pounds. Extremities: 2+ bilateral pitting pretibial edema no calf pain Plan/MDM: Will get cardiac and CHF workup also get viral studies and chest x-ray. Please see subsequent provider note for further details and disposition Comment: Please note this report has been produced using speech recognition software and may contain errors related to that system including errors in grammar, punctuation, and spelling as well as words and phrases that may be inappropriate. If there are any questions or concerns please feel free to contact the dictating provider for clarification Taqueria Taylor MD [employer] Taqueria Taylor MD 01/13/25 1851 Emergency Department Encounter [facility] EMERGENCY DEPT Patient: Venkat Marsh : 1965 Date of Evaluation: 01/13/2025 ED Provider: Taqueria Taylor MD TACO SUPERVISORY NOTE & SHARED ENCOUNTER ATTESTATION...ADD ON TO TRIAGE NOTE: I independently examined and evaluated Venkat Marsh. ECG interpreted by me sinus rhythm rate 88 with an IVCD Chest x-ray interpreted by me no acute chest disease His electrolytes are fine glucose is 171 creatinine is 131 GFR is 62 he has an elevated BNP of 2488 viral studies were negative his white blood cell count was normal at 8.7 with normal electrolytes, his 0-hour troponin was 24, his 2-hour troponin 22, 4-hour troponin 21. He does not have any pneumonia on his chest x-ray his white count is normal he is not febrile his viral studies were negative this does not seem to be infectious in etiology he is fluid overloaded was treated with Lasix 40 mg IV. The admitting service was consulted and they admitted I initially personally saw & evaluated the patient as the Clinician in Triage. Patient was also subsequently seen by the TACO. I assumed care as the supervising physician for a shared TACO encounter. I personally saw the patient and performed a substantive portion of the visit including all aspects of the Medical Decision Making. I managed the patient in a supervisory role and I personally saw the patient and made/approved the management plan and take responsibility for the patient management. See my Triage Note for initial assessment, brief history, physical exam, MDM/Course of action, and ordered tests to develop basic plan of care. All diagnostic, treatment, and disposition decisions were made by myself in conjunction with the TACO. For all further details of the patient's emergency department visit, please see the full medical record and documentation. Taqueria Taylor MD Acute Care [facility] Taqueria Taylor MD 01/13/25 1901 Taqueria Taylor MD 01/14/25 0923 Emergency Department Encounter [facility] EMERGENCY DEPT Patient: Venkat Marsh : 1965 Date of Evaluation: 01/13/2025 ED TACO Provider: ANEDRSON Bruceare was supervised by Dr. Taylor who independently examined and evaluated the patient. Please see their attestation note for further details. Chief Complaint Chief Complaint Patient presents with Shortness of Breath Pt states he had pneumonia recently and finished his antibiotics. Pt also reports BLE edema and is supposed to be on a water pill but has not been taking them. Pt also believes he has cellulitis VENETIE IRA Venkat Marsh is a 59 y.o. male who presents to the emergency department for shortness of breath and leg swelling. Patient has a history of CHF with an EF of 17%. Says he has been noncompliant with his diuretic. Shortness of breath is worse with exertion patient has been orthopneic. Endorses bilateral leg swelling and gaining weight. No chest pain. Limitations to history: None Outside historians: EMR Past Medical History: Diagnosis Date CAD (coronary artery disease) CHF (congestive heart failure) (HCC) Depression Hyperlipidemia Hypertension OK (mitral incompetence) Past Surgical History: Procedure Laterality Date CORONARY ANGIOPLASTY WITH STENT PLACEMENT Social History Socioeconomic History Marital status: Single Tobacco Use Smoking status: Every Day Current packs/day: 0.50 Types: Cigarettes Substance and Sexual Activity Alcohol use: No Drug use: No Social Drivers of Health Food Insecurity: No Food Insecurity (04/14/2024) Received from [facility] Hunger Vital Sign Worried About Running Out of Food in the Last Year: Never true Ran Out of Food in the Last Year: Never true Transportation Needs: No Transportation Needs (04/14/2024) Received from [facility] PRAPARE - Transportation Lack of Transportation (Medical): No Lack of Transportation (Non-Medical): No Housing Stability: Unknown (04/14/2024) Received from [facility] Housing Stability Vital Sign Unable to Pay for Housing in the Last Year: No Unstable Housing in the Last Year: No Medications/Allergies Previous Medications ALBUTEROL 108 (90 BASE) MCG/ACT INHALER Inhale 2 puffs every 4 hours as needed. AMLODIPINE (NORVASC) 2.5 MG TABLET Take 1 tablet by mouth daily. ASPIRIN 81 MG EC TABLET Take 1 tablet by mouth daily. DULAGLUTIDE (TRULICITY) 1.5 MG/0.5ML Inject 1.5 mg under the skin once a week. EMPAGLIFLOZIN (JARDIANCE) 10 MG Take 1 tablet by mouth daily (with breakfast). FUROSEMIDE (LASIX) 20 MG TABLET Take 20 mg by mouth daily. INSULIN GLARGINE (LANTUS) 100 UNIT/ML PEN Inject 20 Units under the skin Nightly. LEVOTHYROXINE (SYNTHROID, LEVOXYL) 125 MCG TABLET Take 1 tablet by mouth every morning (before breakfast). LORATADINE (CLARITIN) 10 MG TABLET Take 10 mg by mouth daily. METFORMIN (GLUCOPHAGE) 1000 MG TABLET Take 1,000 mg by mouth twice a day. METOPROLOL SUCCINATE XL (TOPROL-XL) 25 MG 24 HR TABLET Take 25 mg by mouth daily. MIRTAZAPINE (REMERON) 15 MG TABLET Take 1 tablet by mouth Nightly. No Known Allergies Physical Exam BP (!) 158/132 Pulse 101 Temp (!) 35.9 C (96.6 F) (Temporal) Resp 19 Ht 1.702 m (5' 7) Wt 136 kg (300 lb) SpO2 96% BMI 46.99 kg/m Physical Exam GENERAL APPEARANCE: Awake and alert. Cooperative. HEENT: Normocephalic. Atraumatic. No trismus. NECK: Supple. Trachea midline. CARDIO: Tachycardic initially. Radial pulses symmetrical and palpable LUNGS: Respirations unlabored. CTAB. ABDOMEN: Soft. Non-distended. Non-tender throughout. MUSCULOSKELETAL: No acute deformities. SKIN: Warm and dry. NEUROLOGICAL: No gross facial drooping. No obvious neurologic deficits. Moves all 4 extremities spontaneously. SCREENINGS D Labs: Results for orders placed or performed during the hospital encounter of 01/13/25 ECG 12 lead Collection Time: 01/13/25 5:31 PM Result Value Ref Range Heart Rate 88 bpm QRSD Interval 147 ms QT Interval 414 ms QTC Interval 502 ms P Center Line 43 degrees QRS Center Line 136 degrees T Wave Center Line -50 degrees UT Interval 259 ms CBC auto differential Collection Time: 01/13/25 7:27 PM Result Value Ref Range Auto WBC 9.4 3.6 - 10.7 10*3/uL RBC 5.84 4.40 - 5.90 10*6/uL Hemoglobin 17.2 13.0 - 18.0 g/dL Hematocrit 52.2 (H) 40.0 - 52.0 % MCV 89.4 77.0 - 99.0 fL MCH 29.5 26.0 - 34.0 pg MCHC 33.0 30.5 - 36.0 % RDW 13.6 11.5 - 15.0 % Platelets 190 140 - 440 10*3/uL MPV 10.3 9.0 - 12.7 fL nRBC 0.0 0.0 - 2.0 /100 WBCs Neutrophils Relative 52.7 38.0 - 82.0 % Lymphocytes Relative 31.3 15.0 - 45.0 % Monocytes Relative 11.3 5.0 - 13.0 % Eosinophils Relative 4.1 0.0 - 6.0 % Basophils Relative 0.3 0.0 - 2.0 % Immature Grans % 0.3 0.0 - 2.0 % Neutrophils Absolute 5.0 1.8 - 7.5 10*3/uL Lymphocytes Absolute 2.9 1.0 - 4.3 10*3/uL Monocytes Absolute 1.1 (H) 0.0 - 0.9 10*3/uL Eosinophils Absolute 0.4 0.0 - 0.5 10*3/uL Basophils Absolute 0.0 0.0 - 0.2 10*3/uL Immature Grans Absolute 0.0 <0.1 10*3/uL Serial Troponin, High Sensitivity Collection Time: 01/13/25 7:27 PM Result Value Ref Range Troponin HS Serial Baseline 24 <=35 ng/L Comprehensive metabolic panel Collection Time: 01/13/25 7:27 PM Result Value Ref Range SODIUM 137 136 - 145 mmol/L POTASSIUM 3.9 3.5 - 5.1 mmol/L CHLORIDE 101 98 - 107 mmol/L CARBON DIOXIDE 27 23 - 31 mmol/L ANION GAP 9 3 - 13 mmol/L UREA NITROGEN 14 9 - 23 mg/dL CREATININE 1.31 (H) 0.72 - 1.25 mg/dL GLUCOSE 171 (H) 82 - 115 mg/dL CALCIUM 8.8 8.8 - 10.0 mg/dL AST (SGOT) 26 <34 U/L ALT 22 <40 U/L ALKALINE PHOSPHATASE 67 40 - 150 U/L ALBUMIN 3.3 (L) 3.4 - 4.8 g/dL BILIRUBIN, TOTAL 0.6 <1.2 mg/dL TOTAL PROTEIN 6.5 6.4 - 8.3 g/dL eGFR 61.9 >60.0 mL/min/1.73m*2 NT PRO BNP Collection Time: 01/13/25 7:27 PM Result Value Ref Range NT PRO BNP 2,488 (H) <125 pg/mL COVID-19, Flu A/B, and RSV Combo Collection Time: 01/13/25 7:41 PM Specimen: Nasopharynx; Swab Result Value Ref Range SARS-CoV-2 Not Detected Not Detected Respiratory Syncytial Virus Not Detected Not Detected Influenza A Not Detected Not Detected Influenza B Not Detected Not Detected Radiographs: XR chest 1 view Final Result 1. No acute finding. Report Dictated on Electronically Signed By: Jorge Kelly MD Electronically Signed Date/Time: 01/13/2025 8:04 PM EDT : EKG: All EKG's areinterpreted by the Emergency Department Physician in the absence of a telegraphic typewriter mechanic. see their note for interpretation of EKG. EMERGENCY DEPARTMENT COURSE and DIFFERENTIAL DIAGNOSIS/MDM: External Records Review: Reviewed Care Everywhere Social Determinants of Health: none. Venkat Marsh is a 59 y.o. male who presented to the emergency department for shortness of breath and leg swelling. Differential diagnosis included CHF exacerbation, pneumonia, ACS. Pt given Lasix. Our workup consisted of ordering/reviewing CBC, BMP, troponin, EKG, chest x-ray, BNP and showed no leukocytosis. BNP 2488. Chest xray as interpreted by me and confirmed by radiologist showed no acute finding. Consulted [facility] who recommended medical admission for IV diuresis given multiple comorbidities. Final Diagnosis: 1. Acute congestive heart failure, unspecified heart failure type (HCC) Medications furosemide (Lasix) injection 40 mg (40 mg IntraVENous Given 01/13/251937) CONSULTS: None PROCEDURES: Unless otherwise noted below, none Procedures DISPOSITION/PLAN Admit 01/13/2025 09:53:15 PM PATIENT REFERRED TO: No follow-up provider specified. DISCHARGE MEDICATIONS: New Prescriptions No medications on file @[facility]([id number]:LAST:1)@ (Please note: Portions of this note were completed with a voice recognition program. Efforts were made to edit the dictations but occasionally words and phrases are mis-transcribed.) Form [id number] Harry Carey PA-C [employer] Harry Carey PA-C 01/14/25 0039 Cosigned by Taqueria Taylor MD at 01/14/2025 9:23 AM EDT documented in this encounter [facility] 01-14-2025 Emergency department Note Report given to Courtnye. Pt exits my care at this time [facility] 01-13-2025 History and physical note Attending History and Physical Admit Date: 01/13/2025 PCP: No primary care provider on file. CHIEF COMPLAINT: Shortness of breath, LE edema Reason for Admission: CHF exacerbation History Obtained From: patient, ER provider, EMR HISTORY OF PRESENT ILLNESS: Venkat is a 59 y.o. male with history of CAD s/p PCI 2011, HFrEF, DM2, HTN, HLD, ELBERT noncompliant with CPAP, depression, bipolar disorder, hypothyroidism, morbid obesity, tobacco use who presented to ER with shortness of breath, exertional dyspnea, orthopnea, bilateral lower extremity edema, weight gain. Reports he has not been taking any of his medications at home due to lack of insurance for the past month. In ER, workup significant for creatinine 1.31, BNP 2488. CXR negative for acute abnormality. Troponin negative, EKG without acute ischemic changes Past Medical History: Past Medical History: Diagnosis Date CAD (coronary artery disease) CHF (congestive heart failure) (HCC) Depression Hyperlipidemia Hypertension OK (mitral incompetence) Past Surgical History: Past Surgical History: Procedure Laterality Date CORONARY ANGIOPLASTY WITH STENT PLACEMENT Social History: Social History Socioeconomic History Marital status: Single Spouse name: Not on file Number of children: Not on file Years of education: Not on file Highest education level: Not on file Occupational History Not on file Tobacco Use Smoking status: Every Day Current packs/day: 0.50 Types: Cigarettes Smokeless tobacco: Not on file Substance and Sexual Activity Alcohol use: No Drug use: No Sexual activity: Not on file Other Topics Concern Not on file Social History Narrative Not on file Social Drivers of Health Financial Resource Strain: Not on file Food Insecurity: No Food Insecurity (04/14/2024) Received from [facility] Hunger Vital Sign Worried About Running Out of Food in the Last Year: Never true Ran Out of Food in the Last Year: Never true Transportation Needs: No Transportation Needs (04/14/2024) Received from [facility] PRAPARE - Transportation Lack of Transportation (Medical): No Lack of Transportation (Non-Medical): No Physical Activity: Not on file Stress: Not on file Social Connections: Not on file Intimate Partner Violence: Not on file Housing Stability: Unknown (04/14/2024) Received from [facility] Housing Stability Vital Sign Unable to Pay for Housing in the Last Year: No Number of Places Lived in the Last Year: Not on file Unstable Housing in the Last Year: No Family History: No family history on file. Medications Prior to Admission: No current facility-administered medications for this encounter. No current outpatient medications on file. Medications Reconciliation: Medication were reviewed and verified as accurate with patient. Allergies: No Known Allergies REVIEW OF SYSTEMS: Constitutional: Negative for fever, chills, activity change and unexpected weight change. HEENT: Negative for congestion, postnasal drip and sneezing. Eyes: Negative for itching and visual disturbance. Respiratory: Negative for apnea, cough, choking, chest tightness, shortness of breath, wheezing and stridor. Cardiovascular: Negative for chest pain. Gastrointestinal: Negative for nausea, vomiting, abdominal pain, diarrhea and blood in stool. Genitourinary: Negative for dysuria, frequency and flank pain. Musculoskeletal: Negative for myalgias and joint swelling. Skin: Negative for rash. Neurological: Negative for dizziness, tremors, seizures, syncope, facial asymmetry, speech difficulty, weakness, numbness and headaches. Hematological: Negative for adenopathy. Psychiatric/Behavioral: Negative for suicidal ideas, behavioral problems, self-injury and dysphoric mood. Vitals: BP (!) 158/132 Pulse 101 Temp (!) 35.9 C (96.6 F) (Temporal) Resp 19 Ht 5' 7 (1.702 m) Wt 300 lb (136 kg) SpO2 96% BMI 46.99 kg/m BMI Classification: Morbidly Obese (>40.0) Pulse Ox: SpO2 Av.5 % Min: 96 % Max: 97 % Supplemental O2: PHYSICAL EXAM: Physical Exam Vitals and nursing note reviewed. Constitutional: Appearance: Normal appearance. He is obese. Cardiovascular: Rate and Rhythm: Normal rate. Pulmonary: Effort: Pulmonary effort is normal. Abdominal: General: Abdomen is flat. There is distension. Musculoskeletal: Right lower leg: Edema present. Left lower leg: Edema present. Neurological: Mental Status: He is alert. Psychiatric: Mood and Affect: Mood normal. Behavior: Behavior normal. DATA: CBC: Recent Labs 01/13/251926 WBC 9.4 RBC 5.84 HGB 17.2 HCT 52.2* MCV 89.4 RDW 13.6 PLT 190 BMP: Recent Labs 01/13/251926 NA 137 K 3.9 CL 101 CO2 27 BUN 14 CREATININE 1.31* GLUCOSE 171* CALCIUM 8.8 ANIONGAP 9 LIVER PROFILE: Recent Labs 01/13/251926 AST 26 ALT 22 BILITOT 0.6 ALKPHOS 67 PROT 6.5 PT/INR: No results for input(s): PROTIME, INR in the last 72 hours. CARDIAC ENZYMES: No results for input(s): TROPONINI in the last 72 hours. Procalcitonin: No results found for: PROCAL Urine Culture: No results found for this or any previous visit. COVID-19 PCR: No results for input(s): COVID19 in the last 72 hours. I reviewed: [x] laboratory results [x] radiographic results At the time of today's encounter. Pt was advised of the results. Data: (CAT1) Reviewed 2 notes from different specialty or health system (each=1). (CAT1) Reviewed 2 labs/studies ordered by another provider not previously counted (each=1, panels count as 1). (LOW: 2x CAT1 or independent historian MOD: 3x CAT1 or 1x CAT3 EXTENSIVE: 3x CAT1 and 1x CAT3) Assessment Discussed management with the ED provider and agree with hospitalization. Acute, acute on chronic, unstable/uncontrolled chronic problems/diagnoses: Acute exacerbation of HFrEF TELLO Noncompliance to medications Stable chronic problems affecting care, new non-acute diagnoses: CAD s/p PCI 2012 DM2 HTN HLD ELBERT noncompliant with CPAP Depression Bipolar disorder Hypothyroidism Morbid obesity Tobacco use Plan As a result of the above findings & factors, the following mgmt was pursued: - IV Lasix 80 mg twice daily - Continue home metoprolol, amlodipine - Echo - I/os, daily weights - Cardiology consult monitor renal function closely with diuretic use - Continue home Lantus. Hold other diabetic medications. Add ISS - am labs, replace lytes prn - PT/OT/CM/SW - delirium precautions: increase activity - DVT prophylaxis: enoxaparin and encourage ambulation Complexity: Acute illness with systemic symptoms (MOD). Multiple stable chronic illnesses (MOD). Risk: Admission to hospital-level care was considered or occurred (HIGH). Advance Directive: No Order Anticipated Discharge - Date - tbd - Location - Home - Pending the following - clincal improvement, etl consultant recs Total time spent (which include face to face and non face to face encounters) : 79 minutes. Toxic drug monitoring/narrow therapeutic index drug monitoring : # Drug name : # Route administered : # Method of monitoring : No emergency contact information on file. ADVANCED CARE PLANNING Venkat Marsh : 1965 Primary Care Physician: No primary care provider on file. The patient and/or family/surrogate voluntarily agreed to participate in ACP services. Patient s cognitive capacity: intact Code Status: [x] [FULL CODE - Continue all advanced life support: CPR,intubation,invasive procedures] [_] [DNR-CCA - DO NOT do CPR, intubation] [_] [DNR-BOOT AND SADDLE REPAIR PERSON - Comfort care only] [_] DNR form [was/was not] signed Summary of discussion: The patient health care POA/ surrogate is the following: Julienne- friend. [Condition that instigated the ACP on this DOS, relevant PMH, functional status, goals of care, and whom this was discussed with including names and relationship to the patient, and any relevant advance care documentation discussion] I answered all the patient/family questions that I could within the range and scope of the current medical situation. We discussed the medical conditions, risks, benefits, outcomes, and goals of care at this time for the patient's medical issues at hand in the face of the patient's chronic issues and current presentation. Total time spent: 2 minutes were spent discussing the patient's resuscitation status, advance care planning, and end of life care, with patient and/or family/surrogate. Luh Wells MD Division of Hospitalist Medicine [facility] [employer] Work Phone: 01-13-2025 Note Attending History an d Physical Admit Date: 01/13/2025 PCP: No primary care provider on file. CHIEF COMPLAINT: Shortness of breath, LE edema Reason for Admission: CHF exacerbation History Obtained From: patient, ER provider, EMR HISTORY OF PRESENT ILLNESS: Venkat is a 59 y.o. male with history of CAD s/p PCI 2011, HFrEF, DM2, HTN, HLD, ELBERT noncompliant with CPAP, depression, bipolar disorder, hypothyroidism, morbid obesity, tobacco use who presented to ER with shortness of breath, exertional dyspnea, orthopnea, bilateral lower extremity edema, weight gain. Reports he has not been taking any of his medications at home due to lack of insurance for the past month. In ER, workup significant for creatinine 1.31, BNP 2488. CXR negative for acute abnormality. Troponin negative, EKG without acute ischemic changes Past Medical History: Past Medical History: Diagnosis Date CAD (coronary artery disease) CHF (congestive heart failure) (HCC) Depression Hyperlipidemia Hypertension OK (mitral incompetence) Past Surgical History: Past Surgical History: Procedure Laterality Date CORONARY ANGIOPLASTY WITH STENT PLACEMENT Social History: Social History Socioeconomic History Marital status: Single Spouse name: Not on file Number of children: Not on file Years of education: Not on file Highest education level: Not on file Occupational History Not on file Tobacco Use Smoking status: Every Day Current packs/day: 0.50 Types: Cigarettes Smokeless tobacco: Not on file Substance and Sexual Activity Alcohol use: No Drug use: No Sexual activity: Not on file Other Topics Concern Not on file Social History Narrative Not on file Social Drivers of Health Financial Resource Strain: Not on file Food Insecurity: No Food Insecurity (04/14/2024) Received from [facility] Hunger Vital Sign Worried About Running Out of Food in the Last Year: Never true Ran Out of Food in the Last Year: Never true Transportation Needs: No Transportation Needs (04/14/2024) Received from [facility] PRAPARE - Transportation Lack of Transportation (Medical): No Lack of Transportation (Non-Medical): No Physical Activity: Not on file Stress: Not on file Social Connections: Not on file Intimate Partner Violence: Not on file Housing Stability: Unknown (04/14/2024) Received from [facility] Housing Stability Vital Sign Unable to Pay for Housing in the Last Year: No Number of Places Lived in the Last Year: Not on file Unstable Housing in the Last Year: No Family History: No family history on file. Medications Prior to Admission: No current facility-administered medications for this encounter. No current outpatient medications on file. Medications Reconciliation: Medication were reviewed and verified as accurate with patient. Allergies: No Known Allergies REVIEW OF SYSTEMS: Constitutional: Negative for fever, chills, activity change and unexpected weight change. HEENT: Negative for congestion, postnasal drip and sneezing. Eyes: Negative for itching and visual disturbance. Respiratory: Negative for apnea, cough, choking, chest tightness, shortness of breath, wheezing and stridor. Cardiovascular: Negative for chest pain. Gastrointestinal: Negative for nausea, vomiting, abdominal pain, diarrhea and blood in stool. Genitourinary: Negative for dysuria, frequency and flank pain. Musculoskeletal: Negative for myalgias and joint swelling. Skin: Negative for rash. Neurological: Negative for dizziness, tremors, seizures, syncope, facial asymmetry, speech difficulty, weakness, numbness and headaches. Hematological: Negative for adenopathy. Psychiatric/Behavioral: Negative for suicidal ideas, behavioral problems, self-injury and dysphoric mood. Vitals: BP (!) 158/132 Pulse 101 Temp (!) 35.9 ?C (96.6 ?F) (Temporal) Resp 19 Ht 5' 7 (1.702 m) Wt 300 lb (136 kg) SpO2 96% BMI 46.99 kg/m? BMI Classification: Morbidly Obese (>40.0) Pulse Ox: SpO2 Av.5 % Min: 96 % Max: 97 % Supplemental O2: PHYSICAL EXAM: Physical Exam Vitals and nursing note reviewed. Constitutional: Appearance: Normal appearance. He is obese. Cardiovascular: Rate and Rhythm: Normal rate. Pulmonary: Effort: Pulmonary effort is normal. Abdominal: General: Abdomen is flat. There is distension. Musculoskeletal: Right lower leg: Edema present. Left lower leg: Edema present. Neurological: Mental Status: He is alert. Psychiatric: Mood and Affect: Mood normal. Behavior: Behavior normal. DATA: CBC: Recent Labs 01/13/251926 WBC 9.4 RBC 5.84 HGB 17.2 HCT 52.2* MCV 89.4 RDW 13.6 PLT 190 BMP: Recent Labs 01/13/251926 NA 137 K 3.9 CL 101 CO2 27 BUN 14 CREATININE 1.31* GLUCOSE 171* CALCIUM 8.8 ANIONGAP 9 LIVER PROFILE: Recent Labs 01/13/251926 AST 26 ALT 22 BILITOT 0.6 ALKPHOS 67 PROT 6.5 PT/INR: N (more content not included)... [facility] 01-13-2025 History and physical note Attending History and Physical Admit Date: 01/13/2025 PCP: No primary care provider on file. CHIEF COMPLAINT: Shortness of breath, LE edema Reason for Admission: CHF exacerbation History Obtained From: patient, ER provider, EMR HISTORY OF PRESENT ILLNESS: Venkat is a 59 y.o. male with history of CAD s/p PCI 2011, HFrEF, DM2, HTN, HLD, ELBERT noncompliant with CPAP, depression, bipolar disorder, hypothyroidism, morbid obesity, tobacco use who presented to ER with shortness of breath, exertional dyspnea, orthopnea, bilateral lower extremity edema, weight gain. Reports he has not been taking any of his medications at home due to lack of insurance for the past month. In ER, workup significant for creatinine 1.31, BNP 2488. CXR negative for acute abnormality. Troponin negative, EKG without acute ischemic changes Past Medical History: Past Medical History: Diagnosis Date CAD (coronary artery disease) CHF (congestive heart failure) (HCC) Depression Hyperlipidemia Hypertension OK (mitral incompetence) Past Surgical History: Past Surgical History: Procedure Laterality Date CORONARY ANGIOPLASTY WITH STENT PLACEMENT Social History: Social History Socioeconomic History Marital status: Single Spouse name: Not on file Number of children: Not on file Years of education: Not on file Highest education level: Not on file Occupational History Not on file Tobacco Use Smoking status: Every Day Current packs/day: 0.50 Types: Cigarettes Smokeless tobacco: Not on file Substance and Sexual Activity Alcohol use: No Drug use: No Sexual activity: Not on file Other Topics Concern Not on file Social History Narrative Not on file Social Drivers of Health Financial Resource Strain: Not on file Food Insecurity: No Food Insecurity (04/14/2024) Received from [facility] Vital Sign Worried About Running Out of Food in the Last Year: Never true Ran Out of Food in the Last Year: Never true Transportation Needs: No Transportation Needs (04/14/2024) Received from [facility] PRAPARE - Transportation Lack of Transportation (Medical): No Lack of Transportation (Non-Medical): No Physical Activity: Not on file Stress: Not on file Social Connections: Not on file Intimate Partner Violence: Not on file Housing Stability: Unknown (04/14/2024) Received from [facility] Housing Stability Vital Sign Unable to Pay for Housing in the Last Year: No Number of Places Lived in the Last Year: Not on file Unstable Housing in the Last Year: No Family History: No family history on file. Medications Prior to Admission: No current facility-administered medications for this encounter. No current outpatient medications on file. Medications Reconciliation: Medication were reviewed and verified as accurate with patient. Allergies: No Known Allergies REVIEW OF SYSTEMS: Constitutional: Negative for fever, chills, activity change and unexpected weight change. HEENT: Negative for congestion, postnasal drip and sneezing. Eyes: Negative for itching and visual disturbance. Respiratory: Negative for apnea, cough, choking, chest tightness, shortness of breath, wheezing and stridor. Cardiovascular: Negative for chest pain. Gastrointestinal: Negative for nausea, vomiting, abdominal pain, diarrhea and blood in stool. Genitourinary: Negative for dysuria, frequency and flank pain. Musculoskeletal: Negative for myalgias and joint swelling. Skin: Negative for rash. Neurological: Negative for dizziness, tremors, seizures, syncope, facial asymmetry, speech difficulty, weakness, numbness and headaches. Hematological: Negative for adenopathy. Psychiatric/Behavioral: Negative for suicidal ideas, behavioral problems, self-injury and dysphoric mood. Vitals: BP (!) 158/132 Pulse 101 Temp (!) 35.9 C (96.6 F) (Temporal) Resp 19 Ht 5' 7 (1.702 m) Wt 300 lb (136 kg) SpO2 96% BMI 46.99 kg/m BMI Classification: Morbidly Obese (>40.0) Pulse Ox: SpO2 Av.5 % Min: 96 % Max: 97 % Supplemental O2: PHYSICAL EXAM: Physical Exam Vitals and nursing note reviewed. Constitutional: Appearance: Normal appearance. He is obese. Cardiovascular: Rate and Rhythm: Normal rate. Pulmonary: Effort: Pulmonary effort is normal. Abdominal: General: Abdomen is flat. There is distension. Musculoskeletal: Right lower leg: Edema present. Left lower leg: Edema present. Neurological: Mental Status: He is alert. Psychiatric: Mood and Affect: Mood normal. Behavior: Behavior normal. DATA: CBC: Recent Labs 01/13/251926 WBC 9.4 RBC 5.84 HGB 17.2 HCT 52.2* MCV 89.4 RDW 13.6 PLT 190 BMP: Recent Labs 01/13/251926 NA 137 K 3.9 CL 101 CO2 27 BUN 14 CREATININE 1.31* GLUCOSE 171* CALCIUM 8.8 ANIONGAP 9 LIVER PROFILE: Recent Labs 01/13/251926 AST 26 ALT 22 BILITOT 0.6 ALKPHOS 67 PROT 6.5 PT/INR: No results for input(s): PROTIME, INR in the last 72 hours. CARDIAC ENZYMES: No results for input(s): TROPONINI in the last 72 hours. Procalcitonin: No results found for: PROCAL Urine Culture: No results found for this or any previous visit. COVID-19 PCR: No results for input(s): COVID19 in the last 72 hours. I reviewed: [x] laboratory results [x] radiographic results At the time of today's encounter. Pt was advised of the results. Data: (CAT1) Reviewed 2 notes from different specialty or health system (each=1). (CAT1) Reviewed 2 labs/studies ordered by another provider not previously counted (each=1, panels count as 1). (LOW: 2x CAT1 or independent historian MOD: 3x CAT1 or 1x CAT3 EXTENSIVE: 3x CAT1 and 1x CAT3) Assessment Discussed management with the ED provider and agree with hospitalization. Acute, acute on chronic, unstable/uncontrolled chronic problems/diagnoses: Acute exacerbation of HFrEF TELLO Noncompliance to medications Stable chronic problems affecting care, new non-acute diagnoses: CAD s/p PCI 2011 DM2 HTN HLD ELBERT noncompliant with CPAP Depression Bipolar disorder Hypothyroidism Morbid obesity Tobacco use Plan As a result of the above findings & factors, the following mgmt was pursued: - IV Lasix 80 mg twice daily - Continue home metoprolol, amlodipine - Echo - I/os, daily weights - Cardiology consult monitor renal function closely with diuretic use - Continue home Lantus. Hold other diabetic medications. Add ISS - am labs, replace lytes prn - PT/OT/CM/SW - delirium precautions: increase activity - DVT prophylaxis: enoxaparin and encourage ambulation Complexity: Acute illness with systemic symptoms (MOD). Multiple stable chronic illnesses (MOD). Risk: Admission to hospital-level care was considered or occurred (HIGH). Advance Directive: No Order Anticipated Discharge - Date - tbd - Location - Home - Pending the following - clincal improvement, etl consultant recs Total time spent (which include face to face and non face to face encounters) : 79 minutes. Toxic drug monitoring/narrow therapeutic index drug monitoring : # Drug name : # Route administered : # Method of monitoring : No emergency contact information on file. ADVANCED CARE PLANNING Venkat Marsh : 1965 Primary Care Physician: No primary care provider on file. The patient and/or family/surrogate voluntarily agreed to participate in ACP services. Patient s cognitive capacity: intact Code Status: [x] [FULL CODE - Continue all advanced life support: CPR,intubation,invasive procedures] [_] [DNR-CCA - DO NOT do CPR, intubation] [_] [DNR-BOOT AND SADDLE REPAIR PERSON - Comfort care only] [_] DNR form [was/was not] signed Summary of discussion: The patient health care POA/ surrogate is the following: Julienne- friend. [Condition that instigated the ACP on this DOS, relevant PMH, functional status, goals of care, and whom this was discussed with including names and relationship to the patient, and any relevant advance care documentation discussion] I answered all the patient/family questions that I could within the range and scope of the current medical situation. We discussed the medical conditions, risks, benefits, outcomes, and goals of care at this time for the patient's medical issues at hand in the face of the patient's chronic issues and current presentation. Total time spent: 2 minutes were spent discussing the patient's resuscitation status, advance care planning, and end of life care, with patient and/or family/surrogate. Luh Wells MD Division of Hospitalist Medicine [facility] documented in this encounter [facility] 01-13-2025 Emergency department Note Report to SUZAN Interiano [facility] 01-13-2025 Physician Emergency department Note Emergency Department Encounter [facility] EMERGENCY DEPT Patient: Venkat Marsh : 1965 Date of Evaluation: 01/13/2025 ED Provider: Taqueria Taylor MD TRIAGE NOTE I independently examined and evaluated Venkat Marsh. I personally saw & evaluated the patient as the Clinician in Triage and performed a brief history and physical exam, established acuity, and ordered appropriate tests to develop basic plan of care. Patient will be seen by an TACO, resident and/or my physician partner who will independently evaluate the patient. Please see subsequent provider notes for further details and disposition Brief HPI: In brief, Venkat Marsh is a 59 y.o. male that presents for shortness of breath exertional dyspnea, patient states that he had bilateral leg edema and weight gain he was diagnosed with congestive heart failure but he has not been taking his diuretic. He also states that he was diagnosed with pneumonia couple weeks ago at [facility] and just finished a course of antibiotics. He says he has some tenderness along his abdominal wall where he gained a lot of weight but is read as well 2. No chest pain no fever no hemoptysis.. Focused Physical exam: Lungs: Crackles in both bases no wheeze retractions cyanosis HEART: Regular rate and rhythm no murmur or thrill or rub, strong heart tones Abdomen: There is some generalized erythema about his periumbilical region, is not warm there is no fluctuance or abscess he has no significant tenderness, he is 300 pounds. Extremities: 2+ bilateral pitting pretibial edema no calf pain Plan/MDM: Will get cardiac and CHF workup also get viral studies and chest x-ray. Please see subsequent provider note for further details and disposition Comment: Please note this report has been produced using speech recognition software and may contain errors related to that system including errors in grammar, punctuation, and spelling as well as words and phrases that may be inappropriate. If there are any questions or concerns please feel free to contact the dictating provider for clarification Taqueria Taylor MD [place] [employer] Taqueria Taylor MD 01/13/25 1851 Emergency Department Encounter [facility] EMERGENCY DEPT Patient: Venkat Marsh : 1965 Date of Evaluation: 01/13/2025 ED Provider: Taqueria Taylor MD TACO SUPERVISORY NOTE & SHARED ENCOUNTER ATTESTATION...ADD ON TO TRIAGE NOTE: I independently examined and evaluated Venkat Marsh. ECG interpreted by me sinus rhythm rate 88 with an IVCD Chest x-ray interpreted by me no acute chest disease His electrolytes are fine glucose is 171 creatinine is 131 GFR is 62 he has an elevated BNP of 2488 viral studies were negative his white blood cell count was normal at 8.7 with normal electrolytes, his 0-hour troponin was 24, his 2-hour troponin 22, 4-hour troponin 21. He does not have any pneumonia on his chest x-ray his white count is normal he is not febrile his viral studies were negative this does not seem to be infectious in etiology he is fluid overloaded was treated with Lasix 40 mg IV. The admitting service was consulted and they admitted I initially personally saw & evaluated the patient as the Clinician in Triage. Patient was also subsequently seen by the TACO. I assumed care as the supervising physician for a shared TACO encounter. I personally saw the patient and performed a substantive portion of the visit including all aspects of the Medical Decision Making. I managed the patient in a supervisory role and I personally saw the patient and made/approved the management plan and take responsibility for the patient management. See my Triage Note for initial assessment, brief history, physical exam, MDM/Course of action, and ordered tests to develop basic plan of care. All diagnostic, treatment, and disposition decisions were made by myself in conjunction with the [facility]. For all further details of the patient's emergency department visit, please see the full medical record and documentation. Taqueria Taylor MD [place] [employer] Taqueria Taylor MD 01/13/25 1901 Taqueria Taylor MD 01/14/25 0923 Your Image by Brooke Phone: 01-13-2025 Physician Emergency department Note Emergency Department Encounter [facility] EMERGENCY DEPT Patient: Venkat Marsh : 1965 Date of Evaluation: 01/13/2025 ED [facility] Provider: Harry Carey PA-C EDcare was supervised by Dr. Taylor who independently examined and evaluated the patient. Please see their attestation note for further details. Chief Complaint Chief Complaint Patient presents with Shortness of Breath Pt states he had pneumonia recently and finished his antibiotics. Pt also reports BLE edema and is supposed to be on a water pill but has not been taking them. Pt also believes he has cellulitis VENETIE IRA Venkat Marsh is a 59 y.o. male who presents to the emergency department for shortness of breath and leg swelling. Patient has a history of CHF with an EF of 17%. Says he has been noncompliant with his diuretic. Shortness of breath is worse with exertion patient has been orthopneic. Endorses bilateral leg swelling and gaining weight. No chest pain. Limitations to history: None Outside historians: EMR Past Medical History: Diagnosis Date CAD (coronary artery disease) CHF (congestive heart failure) (HCC) Depression Hyperlipidemia Hypertension OK (mitral incompetence) Past Surgical History: Procedure Laterality Date CORONARY ANGIOPLASTY WITH STENT PLACEMENT Social History Socioeconomic History Marital status: Single Tobacco Use Smoking status: Every Day Current packs/day: 0.50 Types: Cigarettes Substance and Sexual Activity Alcohol use: No Drug use: No Social Drivers of Health Food Insecurity: No Food Insecurity (04/14/2024) Received from [facility] Hunger Vital Sign Worried About Running Out of Food in the Last Year: Never true Ran Out of Food in the Last Year: Never true Transportation Needs: No Transportation Needs (04/14/2024) Received from [facility] PRAPARE - Transportation Lack of Transportation (Medical): No Lack of Transportation (Non-Medical): No Housing Stability: Unknown (04/14/2024) Received from [facility] Housing Stability Vital Sign Unable to Pay for Housing in the Last Year: No Unstable Housing in the Last Year: No Medications/Allergies Previous Medications ALBUTEROL 108 (90 BASE) MCG/ACT INHALER Inhale 2 puffs every 4 hours as needed. AMLODIPINE (NORVASC) 2.5 MG TABLET Take 1 tablet by mouth daily. ASPIRIN 81 MG EC TABLET Take 1 tablet by mouth daily. DULAGLUTIDE (TRULICITY) 1.5 MG/0.5ML Inject 1.5 mg under the skin once a week. EMPAGLIFLOZIN (JARDIANCE) 10 MG Take 1 tablet by mouth daily (with breakfast). FUROSEMIDE (LASIX) 20 MG TABLET Take 20 mg by mouth daily. INSULIN GLARGINE (LANTUS) 100 UNIT/ML PEN Inject 20 Units under the skin Nightly. LEVOTHYROXINE (SYNTHROID, LEVOXYL) 125 MCG TABLET Take 1 tablet by mouth every morning (before breakfast). LORATADINE (CLARITIN) 10 MG TABLET Take 10 mg by mouth daily. METFORMIN (GLUCOPHAGE) 1000 MG TABLET Take 1,000 mg by mouth twice a day. METOPROLOL SUCCINATE XL (TOPROL-XL) 25 MG 24 HR TABLET Take 25 mg by mouth daily. MIRTAZAPINE (REMERON) 15 MG TABLET Take 1 tablet by mouth Nightly. No Known Allergies Physical Exam BP (!) 158/132 Pulse 101 Temp (!) 35.9 C (96.6 F) (Temporal) Resp 19 Ht 1.702 m (5' 7) Wt 136 kg (300 lb) SpO2 96% BMI 46.99 kg/m Physical Exam GENERAL APPEARANCE: Awake and alert. Cooperative. HEENT: Normocephalic. Atraumatic. No trismus. NECK: Supple. Trachea midline. CARDIO: Tachycardic initially. Radial pulses symmetrical and palpable LUNGS: Respirations unlabored. CTAB. ABDOMEN: Soft. Non-distended. Non-tender throughout. MUSCULOSKELETAL: No acute deformities. SKIN: Warm and dry. NEUROLOGICAL: No gross facial drooping. No obvious neurologic deficits. Moves all 4 extremities spontaneously. SCREENINGS D Labs: Results for orders placed or performed during the hospital encounter of 01/13/25 ECG 12 lead Collection Time: 01/13/25 5:31 PM Result Value Ref Range Heart Rate 88 bpm QRSD Interval 147 ms QT Interval 414 ms QTC Interval 502 ms P Center Line 43 degrees QRS Center Line 136 degrees T Wave Center Line -50 degrees UT Interval 259 ms CBC auto differential Collection Time: 01/13/25 7:27 PM Result Value Ref Range Auto WBC 9.4 3.6 - 10.7 10*3/uL RBC 5.84 4.40 - 5.90 10*6/uL Hemoglobin 17.2 13.0 - 18.0 g/dL Hematocrit 52.2 (H) 40.0 - 52.0 % MCV 89.4 77.0 - 99.0 fL MCH 29.5 26.0 - 34.0 pg MCHC 33.0 30.5 - 36.0 % RDW 13.6 11.5 - 15.0 % Platelets 190 140 - 440 10*3/uL MPV 10.3 9.0 - 12.7 fL nRBC 0.0 0.0 - 2.0 /100 WBCs Neutrophils Relative 52.7 38.0 - 82.0 % Lymphocytes Relative 31.3 15.0 - 45.0 % Monocytes Relative 11.3 5.0 - 13.0 % Eosinophils Relative 4.1 0.0 - 6.0 % Basophils Relative 0.3 0.0 - 2.0 % Immature Grans % 0.3 0.0 - 2.0 % Neutrophils Absolute 5.0 1.8 - 7.5 10*3/uL Lymphocytes Absolute 2.9 1.0 - 4.3 10*3/uL Monocytes Absolute 1.1 (H) 0.0 - 0.9 10*3/uL Eosinophils Absolute 0.4 0.0 - 0.5 10*3/uL Basophils Absolute 0.0 0.0 - 0.2 10*3/uL Immature Grans Absolute 0.0 <0.1 10*3/uL Serial Troponin, High Sensitivity Collection Time: 01/13/25 7:27 PM Result Value Ref Range Troponin HS Serial Baseline 24 <=35 ng/L Comprehensive metabolic panel Collection Time: 01/13/25 7:27 PM Result Value Ref Range SODIUM 137 136 - 145 mmol/L POTASSIUM 3.9 3.5 - 5.1 mmol/L CHLORIDE 101 98 - 107 mmol/L CARBON DIOXIDE 27 23 - 31 mmol/L ANION GAP 9 3 - 13 mmol/L UREA NITROGEN 14 9 - 23 mg/dL CREATININE 1.31 (H) 0.72 - 1.25 mg/dL GLUCOSE 171 (H) 82 - 115 mg/dL CALCIUM 8.8 8.8 - 10.0 mg/dL AST (SGOT) 26 <34 U/L ALT 22 <40 U/L ALKALINE PHOSPHATASE 67 40 - 150 U/L ALBUMIN 3.3 (L) 3.4 - 4.8 g/dL BILIRUBIN, TOTAL 0.6 <1.2 mg/dL TOTAL PROTEIN 6.5 6.4 - 8.3 g/dL eGFR 61.9 >60.0 mL/min/1.73m*2 NT PRO BNP Collection Time: 01/13/25 7:27 PM Result Value Ref Range NT PRO BNP 2,488 (H) <125 pg/mL COVID-19, Flu A/B, and RSV Combo Collection Time: 01/13/25 7:41 PM Specimen: Nasopharynx; Swab Result Value Ref Range SARS-CoV-2 Not Detected Not Detected Respiratory Syncytial Virus Not Detected Not Detected Influenza A Not Detected Not Detected Influenza B Not Detected Not Detected Radiographs: XR chest 1 view Final Result 1. No acute finding. Report Dictated on Electronically Signed By: Jorge Kelly MD Electronically Signed Date/Time: 01/13/2025 8:04 PM EDT : EKG: All EKG's areinterpreted by the Emergency Department Physician in the absence of a telegraphic typewriter mechanic. see their note for interpretation of EKG. EMERGENCY DEPARTMENT COURSE and DIFFERENTIAL DIAGNOSIS/MDM: External Records Review: Reviewed Care Everywhere Social Determinants of Health: none. Venkat Marsh is a 59 y.o. male who presented to the emergency department for shortness of breath and leg swelling. Differential diagnosis included CHF exacerbation, pneumonia, ACS. Pt given Lasix. Our workup consisted of ordering/reviewing CBC, BMP, troponin, EKG, chest x-ray, BNP and showed no leukocytosis. BNP 2488. Chest xray as interpreted by me and confirmed by radiologist showed no acute finding. Consulted ICS who recommended medical admission for IV diuresis given multiple comorbidities. Final Diagnosis: 1. Acute congestive heart failure, unspecified heart failure type (HCC) Medications furosemide (Lasix) injection 40 mg (40 mg IntraVENous Given 01/13/25 1938) CONSULTS: None PROCEDURES: Unless otherwise noted below, none Procedures DISPOSITION/PLAN Admit 01/13/2025 09:53:15 PM PATIENT REFERRED TO: No follow-up provider specified. DISCHARGE MEDICATIONS: New Prescriptions No medications on file @[facility]([id number]:LAST:1)@ (Please note: Portions of this note were completed with a voice recognition program. Efforts were made to edit the dictations but occasionally words and phrases are mis-transcribed.) Form [id number] Harry Carey PA-C [employer] Harry Carey PA-C 01/14/25 0039 Cosigned by Taqueria Taylor MD at 01/14/2025 9:23 AM EDT [facility] 01-06-2025 Discharge summary [facility] 01-05-2025 Discharge summary Note Date/Time January 06, 2025 12:39am [facility] Medical Records Department [address] [place] [address] Emergency Department Summary 01/05/25 MR#: [id number] Acct: [id number] Name: VENKAT MARSH Rep #:[id number] : 1965 59 From: Prieto Lees PCP: Care Physician,No Primary Status :REG ER Location: ED HPI History of Present Illness Chief Complaint: General Illness Narrative Narrative: With history of continuous abdominal wall redness and itching. No fevers. No changes in soaps or detergents. Reports was here 2 weeks ago multiple issues including head injury. Prescribed antibiotic. No improvement. Started before medications. Diabetic on insulin. Sleep apnea. Does feel short of breath report history of asthma. Noted allergy prednisonecaused leg swelling. Prior similar symptoms: Yes PFSH PFS Medical History Congestive heart failure (CHF) BMI greater than 40 Obstructive sleep apnea Hypertension Type 2 diabetes mellitus with insulin therapy Home Medications ?Medication ?Instructions ?Recorded ?Last Taken ?Type aspirin 325 mg tablet 325 mg PO DAILY@0800 5 Unknown History levothyroxine 125 mcg tablet 125 mcg PO DAILY 10/15/14 Unknown History metoprolol tartrate 50 mg tablet 50 mg PO DAILY Unknown History doxycycline hyclate 100 mg capsule 100 mg PO BID ##28 01/12/17 Unknown Rx albuterol sulfate 90 mcg/actuation 2 puff inhalation Q 4H PRN PRN 08/31/24 Unknown Rx aerosol inhaler (Ventolin HFA) Wheezing ##1 prednisone 20 mg tablet 60 mg (3 x 20 mg) PO DAILY # 15 08/31/24 Unknown Rx TABLETS clindamycin HCl 300 mg capsule 300 mg PO 4X/DAY 10 day s #40 12/23/24 Unknown Rx (Cleocin HCl) CAPSULES furosemide 20 mg tablet (Lasix) 20 mg PO DAILY 30 days #30 tabs 12/23/24 Unknown Rx nystatin 100,000 unit/mL oral 5 ml PO 4X/DAY 14 days # 280 mL 12/23/24 Unknown Rx suspension diphenhydramine HCl 25 mg tablet 25 mg PO TID PRN itch ing #30 tabs 01/06/25 Unknown Rx (Benadryl Allergy) loratadine 10 mg tablet 10 mg PO DAILY #30 tabs 12/20 05/15 Unknown Rx prednisone 20 mg tablet 40 mg (2 x 20 mg) PO DAILY # 12 tabs 01/06/25 Unknown Rx Allergy/AdvReac Type Severity Reaction Status Date / Time Sulfa (Sulfonamide Allergy Swelling Verified 01/05/25 21:04 Antibiotics) sulfamethoxazole (From Allergy Swelling Verified 01/05/25 21:04 Bactrim) trimethoprim (From Bactrim) Allergy Swelling Verified 01/05/25 21:04 Social History household members: none Smoking Status: Current every day smoker tobacco type: cigarettes ROS ROS ED Constitutional Constitutional ED: Denies chills, fever(s) or sweats ENT ENT ED: Denies sore throat Cardiovascular Cardiovascular: Denies chest pain, leg edema, palpitations or racing heartbeat Respiratory/Chest Respiratory/Chest: Reports dyspnea; Denies cough or dyspnea on exertion Gastrointestinal Gastrointestinal: Denies abdominal pain, diarrhea, nausea or vomiting Genitourinary Genitourinary ED: Denies dysuria, hematuria or urinary frequency Musculoskeletal Musculoskeletal: Denies back pain, extremity pain or neck pain Integumentary Reports rash; Denies wounds Neurologic Neurologic: Denies headache(s), paresthesias or weakness EXAM Physical Exam Const Vital Signs: 01/05/25 21:04 01/05/25 21:24 01/05/25 22:18 Temperature 97.2 F L Temperature Source Temporal Pulse Rate 96 96 Respiratory Rate 26 H 20 H Respiratory Effort Normal Non-Labored Respiratory Pattern Normal Normal Blood Pressure 157/105 H Blood Pressure Mean 122 Pulse Ox 100 Oxygen Delivery Method Room Air 01/05/25 23:03 01/06/25 00:29 Temperature 98.0 F Temperature Source Pulse Rate 85 78 Respiratory Rate 20 H 22 H Respiratory Effort Respiratory Pattern Blood Pressure 171/123 H 190/100 H Blood Pressure Mean 139 130 Pulse Ox 97 95 Oxygen Delivery Method Room Air Positive well nourished and well developed General Appearance ED: well developed and NAD HEENT Reports moist mucous membranes HEENT Narrative: No lip or tongue swelling normocephalic and atraumatic Eyes General Eye ED: Yes normal appearance of both eyes Neck full ROM Chest Wall Chest: Negative for tenderness Resp normal respiratory effort Resp Narrative: Faint wheeze on exam. Effort and Inspection: symmetric chest movement; Negative for respiratory distress Cardio regular rate, regular rhythm and no murmurs Peripheral Pulses: pulses 2+ throughout GI normal to inspection, nondistended, normoactive bowel sounds and non-tender GI Narrative: Redness and edema to the abdominal wall all blanching. Nontender. Palpation: Negative for guarding or rebound tenderness present Extremity normal to inspection General Extremety ED: Negative for edema or tenderness General Extremity: Negative for edema Neuro oriented x3 and no sensory deficits noted Sensorium / Orientation: awake and alert Skin no rashes or lesions noted and no wounds MDM MDM MDM Narrative Medical decision making narrative: Interventions / MDM: Differential diagnosis: Contact dermatitis, sleep apnea, history of diabetes Diagnosis considered but do not suspect: Cellulitis however blanching of the erythema. My EKG interpretation: N/A Imaging independently reviewed and interpreted by myself: N/A External documents reviewed: ED visit from the fourth of this month, seen for head injury abdominal redness and oral thrush. He was put on clindamycin, Lasixfor swelling and nystatin. Test considered but not ordered:N/A ED course: Afebrile faint wheeze on exam will give aerosol treatments. He has had abdominal redness itching for 3 weeks now. This all blanches pruritic therefore not likely cellulitis. Concerns more of contact dermatitis. He is a diabetic. Will check blood glucose laboratory studies was obtained by nursing on his arrival. This will be sent for reevaluation. Will start IV Benadryl. 0030: Labs stable white count 10. Creatinine 1.17. Hemolyzed potassium of 5.3. Glucose was 210 normal. Sleepy from the Benadryl there was slight improvement of erythema in his abdomen. Discussed with him again lower suspicion for cellulitis. Diabetic on insulin. Discussed 2 weeks of symptoms, steroid shouldhelp however he will need to monitor his glucose. He understands and agrees with this plan. Started on 40 mg prednisone. Initially reported allergies causing leg swelling, discussed not allergic action. He will monitor swelling. They will follow-up with primary care doctor. Prescription also for Benadryl and loratadine. All questions were answered. Patient Re-evaluation: stable Disposition discussed with patient/family/significant other: Case discussed with consulting clinician: N/A This note was generated with Payment plugin dictation software. It may contain incorrectwords, spelling, and punctuation that were not noted in checking the note beforesigning. Lab Data Attestation: I reviewed the patient's lab results. Labs: Laboratory Results - last 24 hr 01/05/25 01/05/25 21:36 22:14 WBC 10.0 RBC 5.60 Hgb 16.9 H Hct 49.2 MCV 87.9 MCH 30.2 MCHC 34.3 RDW Std Deviation 42.8 RDW Coeff of Amanda 13.3 Plt Count 231 MPV 11.0 Immature Gran % (Auto) 0.500 Neut % (Auto) 54.5 Lymph % (Auto) 29.7 Rhea % (Auto) 8.4 Eos % (Auto) 6.5 H Baso % (Auto) 0.4 Absolute Neuts (auto) 5.4 Absolute Lymphs (auto) 2.96 Nucleated RBC % 0 Sodium 134 Potassium 5.3 H Chloride 100 Carbon Dioxide 18.5 L Anion Gap 15 BUN 12 Creatinine 1.17 Estim Creat Clear Calc 90.22 Est GFR (MDRD) Non-Af 71 BUN/Creatinine Ratio 10.5 Glucose 210 H Calcium 9.0 POC Glucose 220 H Discharge Plan Triage Chief Complaint: General Illness ED Provider: Prieto Bey Dx/Rx/DC Orders Clinical Impression: Contact dermatitis, Type 2 diabetes mellitus with insulin therapy, Obstructive sleep apnea Instructions: ED Contact Dermatitis Prescriptions: New prednisone 20 mg tablet 40 mg PO DAILY Qty: 12 0RF diphenhydramine HCl [Benadryl Allergy] 25 mg tablet 25 mg PO TID PRN (Reason: itching) Qty: 30 0RF loratadine 10 mg tablet 10 mg PO DAILY Qty: 30 0RF No Action aspirin 325 MG tablet 325 mg PO DAILY@0800 levothyroxine 125 MCG tablet 125 mcg PO DAILY metoprolol tartrate 50 MG tablet 50 mg PO DAILY doxycycline hyclate 100 MG capsule 100 mg PO BID Qty: 28 0RF clindamycin HCl [Cleocin HCl] 300 mg capsule 300 mg PO 4X/DAY 10 Days Qty: 40 0RF nystatin 100,000 unit/mL suspension 5 ml PO 4X/DAY 14 Days Qty: 280 0RF Rx Instructions: Swish for 1 to 2 minutes then spit out medication furosemide [Lasix] 20 mg tablet 20 mg PO DAILY 30 Days Qty: 30 0RF prednisone 20 mg tablet 60 mg PO DAILY Qty: 15 0RF albuterol sulfate [Ventolin HFA] 90 mcg/actuation HFA aerosol inhaler 2 puff inhalation Q4H PRN PRN (Reason: Wheezing) Qty: 1 0RF Primary Care Provider: Care Physician,No Primary Referrals: Baron Santiago MD [Med Staff - Line O Scribe Operator] - 1 Week Care Physician,No Primary [Primary Care Provider] - Activity Restrictions/Additional Instructions: Your abdominal redness is not cellulitis. White count normal. Redness blanches. Use loratadine daily to help with itching. Take prednisone as prescribed. Benadryl as needed in addition if more itching. Monitor your glucose. Follow-up with primary care doctor. Print Language: Mongolian Disposition Disposition: Home, Self Care What to do if you have Problems For any increased pain, shortness of breath, bleeding, nausea or vomiting, chestpain, or any unexpected problems, contact your Primary Care Provider. Call [facility] ([phone]) or report to the closest Emergency Room. Call 911 if necessary. 01/06/25 0039 <Electronically signed by Prieto Lees> Cosigner Signature (if applicable): CC: No Primary Care Physician ~ Signed [facility] Work Phone: 1(828) 257-228904-04-2025 Radiology Diagnostic study note [facility] Imaging Services [address] [place] [address] Brain/Head without Contrast MR#: [id number] Acct: [id number] Name: VENKAT MARSH Rep #: [id number] : 1965 M 59 From: Amari Hidalgo MD PCP: Care Physician,No Primary Status: REG ER Study:Brain/Head without Contrast Date of Exa m: 12/23/24 Exam# [id number] Ordering Dr: Merari Werner DO PROCEDURE: BRAIN/HEAD WITHOUT CONTRAST 12/23/2024 REASON FOR EXAM: HEAD INJURY TECHNIQUE: Head CT without intravenous contrast. Coronal and Sagittal reconstruction serieswere provided. One or more dose reduction techniques were used (e.g., Automated exposure control, adjustment of the mA and/or kV according to patient size, use of iterative reconstruction technique. RADIATION DOSE SUMMARY: CTDlvol: 44.99 mGy DLP: 796.11 mGycm COMPARISON: None available FINDINGS: No intracranial hemorrhage, mass effect or calvarial fracture. Left frontal forehead scalp soft tissue swelling. The ventricles are within limits and midline. Likely partially imaged mucous retention cyst inferior left maxillary sinus. Frontal, ethmoid and sphenoid mild sinus mucoperiosteal thickening, sinus disease. Likely old nasal bone fracture deformity without overlying soft tissue swelling,clinically correlate. Rightward bowing of the nasal septum. Mastoids and orbits appear within limits. Bilateral mandibular condyles appear anteriorly subluxed in relation to the joint for example sagittal 20 and 61 may represent mouth positioning at the time of the scan, clinically correlate. CT/Brain/Head without Contrast IMPRESSION: No intracranial hemorrhage, mass effect or calvarial fracture. Left frontal forehead scalp soft tissue swelling. Bilateral mandibular condyles appear anteriorly subluxed in relation to the joint for example sagittal 20 and 61 may represent mouth positioning at the time of the scan, clinically correlate. Likely old nasal bone fracture deformity without overlying soft tissue swelling,clinically correlate. Rightward bowing of the nasal septum. Mild paranasal sinus disease as above. Reading Location: [id number] CC: Salty Werner, ; No Primary Care Physician ~ Tearoom Host/Hostess: Nathan [facility]04-02-2025 Telephone encounter Note* Telephone Encounter - Magnolia Mcmahon RN - 12/21/2024 1:56 PM EDT Patient calls and states that he had a prescription last month for thrush. Patient reports that he did not pick this up due to insurance issues. Patient asking if prescription can be written again. Patient's pharmacy is [facility]. Advised patient that Dr. Brizuela never had seen patient for thrush and that patient needs to seen in office for this to have this ordered. Patient voiced understanding. Patient states that he is driving and cannot make an appointment at this time. Magnolia Mcmahon RN [facility]04-02-2025 Miscellaneous Notes* Telephone Encounter - Magnolia Mcmahon RN - 12/21/2024 1:56 PM EDT Patient calls and states that he had a prescription last month for thrush. Patient reports that he did not pick this up due to insurance issues. Patient asking if prescription can be written again. Patient's pharmacy is [facility]. Advised patient that Dr. Brizuela never had seen patient for thrush and that patient needs to seen in office for this to have this ordered. Patient voiced understanding. Patient states that he is driving and cannot make an appointment at this time. Magnolia Mcmahon RN documented [facility] Telephone encounter Note * Telephone Encounter - Bakari Dumont - 12/21/2024 1:35 PM EDT Patient called in requesting a refill and to update insurance. Made patient aware that he will haveto contact his PCP as he is not currently a patient of our office. Establish care 01/10/25 in our office. Patient insurance has been updated in the system. Bakari Dumont Housekeeping Worker I December 21, 2024 1:39 PM [facility]04-02-2025 Miscellaneous Notes* Telephone Encounter - Bakari Dumont - 12/21/2024 1:35 PM EDT Patient called in requesting a refill and to update insurance. Made patient aware that he will haveto contact his PCP as he is not currently a patient of our office. Establish care 01/10/25 in our office. Patient insurance has been updated in the system. Bakari Dumont Housekeeping Worker I December 21, 2024 1:39 PM documented in this encounterGuernsey [facility]04-[facility]-2025 NoteHNO ID: [id number] Author: ?, ?, ? Service: ? Author Type: ? Type: Progress Notes Filed: 12/21/2024 08:33 Note Text: POPULATION HEALTH NAVIGATION OUTREACH Action/FYI Patient outreach for HCC gaps; COLO, DIABETIC EYE, KED, AWV, FOLLOW UP WITH ENT around MAY 2025. Mychart sent to close gaps. Appointment notes updated. Appointment with new provider on 01/10 is not considered a wellness. Reason for Outreach Care Gap/HCC or Scheduling Wellness Visits Care Gaps due: Medicare Annual Wellness Visit Follow-up Appointment Colorectal Cancer Screening Diabetic Eye Exam KED Patient Contacted: Unable or unnecessary to reach patient: MyChart message sent HCC related Updated appointment notes Navigation Signature: Sandra Zaldivar December 21, 2024 8:29 [facility]04-02-2025 History of Present illness Narrative* Sandra Schmidt - 12/21/2024 8:27 AM EDT POPULATION HEALTH NAVIGATION OUTREACH Action/FYI Patient outreach for HCC gaps; COLO, DIABETIC EYE, KED, AWV, FOLLOW UP WITH ENT around MAY 2025. Mychart sent to close gaps. Appointment notes updated. Appointment with new provider on 01/10 is not considered a wellness. Reason for Outreach Care Gap/HCC or Scheduling Wellness Visits Care Gaps due: Medicare Annual Wellness Visit Follow-up Appointment Colorectal Cancer Screening Diabetic Eye Exam KED Patient Contacted: Unable or unnecessary to reach patient: MyChart message sent HCC related Updated appointment notes Navigation Signature: Sandra Zaldivar December 21, 2024 8:29 AM documented in this encounterGuernsey [facility]04-[facility]-2025 NotePatient Outreach (NETNAV) VENKAT MARSH ([id number]) 1965 M Date Time Provider Department 12/21/24 OSCAR BRIZUELA During your visit today, we recorded the following information about you: Sandra Schmidt 12/21/2024 8:33 AM Signed POPULATION HEALTH NAVIGATION OUTREACH Action/FYI Patient outreach for HCC gaps; COLO, DIABETIC EYE, KED, AWV, FOLLOW UP WITH ENT around MAY 2025. Mychart sent to close gaps. Appointment notes updated. Appointment with new provider on 01/10 is not considered a wellness. Reason for Outreach Care Gap/HCC or Scheduling Wellness Visits Care Gaps due: Medicare Annual Wellness Visit Follow-up Appointment Colorectal Cancer Screening Diabetic Eye Exam KED Patient Contacted: Unable or unnecessary to reach patient: MyChart message sent HCC related Updated appointment notes Navigation Signature: Sandra Zaldivar December 21, 2024 8:29 AM Sandra Schmidt 01/19/2025 11:41 AM Signed POPULATION HEALTH NAVIGATION OUTREACH Action/FYI Patient replied to mychart from 12/21, has a new pcp. Messaged pt to update provider info. Reason for Outreach Returned Call/MyChart Patient Contacted: Spoke to patient/parent/or legal guardian Patient identified by name and date of : Yes Returned call/MyChart actions taken: MyChart message sent Navigation Signature: Sandra Zaldivar January 19, 2025 11:38 AM Allergies As of Date: 12/21/2024 Noted Allergy Reaction AMOXICILLIN-POT CLAVULANATE 12/23/2023 10 - Anaphylaxis 7 - Swelling DOXYCYCLINE 11/09/2024 16 - Unknown LISINOPRIL 04/24/2023 3 - Cough SULFAMETHOXAZOLE-TRIMETHOPRIM 10/20/2009 2 - Rash 4 - Hives 7 - Swelling TRIMETHOPRIM 09/04/2023 7 - Swelling Date Reviewed: 12/08/2024 Reviewed by: Issac Xiao MD - Fully Assessed Reason for Visit: Population Health Navigation Outreach [3910] Cmt: [facility] Prescriptions as of 01/19/2025 - spironolactone (ALDACTONE) 25 mg tablet Take 25 mg by mouth once daily. - furosemide (LASIX) 20 mg tablet Take 40 mg by mouth once daily. - loratadine (CLARITIN) 10 mg tablet Take 10 mg by mouth once daily. - Benzonatate 200 mg capsule Take 200 mg by mouth three times a day as needed. - dapagliflozin propanediol (FARXIGA) 10 mg tablet Take by mouth daily with breakfast. - sacubitril-valsartan (ENTRESTO) 49-51 mg tablet Take 1 tablet by mouth two times a day. - diphenhydrAMINE (BANOPHEN) 25 mg capsule Take 25 mg by mouth three times a day as needed. - rosuvastatin (CRESTOR) 10 mg tablet Take 1 tablet by mouth one time a week. - ezetimibe (ZETIA) 10 mg tablet Take 1 tablet by mouth once daily. - fluticasone (FLONASE) 50 mcg/actuation nasal spray Use 1 spray in each nostril daily at bedtime. - nicotine (NICODERM CQ) 21 mg/24 hr Apply 1 patch as directed every 24 hours. - nicotine polacrilex (NICORETTE) 4 mg gum Take 1 each by mouth as needed. - mirtazapine (REMERON) 15 mg tablet Take 1 tablet by mouth daily at bedtime. - traZODone (DESYREL) 100 mg tablet Take 1 tablet by mouth daily at bedtime. - predniSONE (DELTASONE) 20 mg tablet Take 40 mg by mouth once daily. - aspirin, enteric coated (ASPIRIN, ENTERIC COATED) 81 mg EC tablet Take 1 tablet by mouth once daily. - metoprolol succinate ER (TOPROL XL) 25 mg 24 hr tablet Take 1 tablet by mouth once daily. - BD SAFETYGLIDE INSULIN SYRINGE 0.5 mL 30 gauge x 5/16 syrg Inject 1 Each subcutaneously every 24 hours. Give with each insulin administration. - dulaglutide (TRULICITY) 1.5 mg/0.5 mL pen injector Inject 1.5 mg subcutaneously one time a week. Monitor bs closely and keep food log - albuterol HFA (PROVENTIL HFA, VENTOLIN HFA) 90 mcg/actuation inhaler Inhale 2 Puffs as instructed every 4 hours as needed for wheezing/shortness of breath. - metFORMIN (GLUCOPHAGE) 1,000 mg tablet Take 1 tablet by mouth two times a day. - levothyroxine (SYNTHROID) 125 mcg tablet Take 1 tablet by mouth daily before breakfast. - Insulin Whitman, Disposable, (PEN NEEDLE) 32 gauge x 5/32 Inject 1 Each subcutaneously every 24 hours. Give with each insulin administration. - insulin glargine 100 unit/mL (3 mL) Inject 20 Units subcutaneously daily at bedtime. Inject 20 Units subcutaneously as directed - magnesium, aluminum hydroxide (MYLANTA ORAL) Take 5 mL by mouth two times a day as needed (heartburn). Meds Comments as of 10/23/2023: 10/23/23 The medications are managed by this patient by: PATIENT OPHELIA Crooks Problem List As Of Date 12/21/2024 Noted Resolved CAD (coronary artery disease) [I25.10] 09/04/2014 S/P coronary artery stent placement [Z95.5] 09/04/2014 Left bundle branch block (LBBB) on electrocardi*09/04/2014 H/O myocardial infarction, greater than 8 weeks*09/04/2014 Tobacco abuse [Z72.0] 09/04/2014 Obesity [E66.9] 09/04/2014 Status (more content not included)...[facility]03-30-2025 Note HNO ID: [id number] Author: ISSAC XIAO MD Service: ? Author Type: Physician Type: Progress Notes Filed: 12/18/2024 18:34 Note Text: VENETIE IRA: Venkat Marsh is a 59 year old, White, male who returns, I am here about my left neck and thyroid. He thinks that his left neck mass that he first noticed about 7 months ago is getting smaller since he has been taking ivermectin. He does not think there has been a change in his thyroid mass. He is s/p right thyroidectomy at [facility] in 08/2008. He did not have any problem after the FNAs in the office last visit or after the guided FNA of the left neck mass about a week ago. SUBJECTIVE: I reviewed the allergies, medications, problem list, PMH/PSH, FmHx and SocHx as documented in Epic chart. PHYSICAL EXAM: VS: BP 128/70 Pulse 88 Resp 16 Ht 170.2 cm (5' 7) Wt (!) 137.9 kg (304 lb) BMI 47.61 kg/m? H/F/N: The facial motion is overall normal. There are no palpable salivary gland masses. The left neck has an indistinct soft 3 cm mass deep to the left SCM. There is a 2 cm isthmus area nodule/goiter. OBJECTIVE: I reviewed with the patient that the thyroid FNA cytology/testing 11/09/2024 through [facility] was consistent with a benign follicular nodule. I reviewed with the patient that the left neck mass FNA cytology of the same date showed fibroadipose tissue with focal a plasia. Because of this he was sent for a guided core biopsy, 11/30/2024 which I reviewed with him showed scant adipose tissue and acellular polarizable material insufficient for evaluation. ASSESSMENT AND PLAN: I counseled the patient about the differential diagnosis, natural course, treatment options and answered their questions for all diagnoses and orders: 1. Lipoma of neck - ICD9: 214.1, ICD10: D17.0 2. Nontoxic multinodular goiter - ICD9: 241.1, ICD10: E04.2 At this point he defers surgery on the left neck mass, probable lipoma. He does not appear to need surgery for the thyroid benign follicular nodule. He was counseled to come back sooner if the mass is enlarged. Return in about 6 months (around 06/10/2025) for Neck. Issac Xiao MD 35 minutes Total time including preparation, obtaining/reviewing history, exam, interpreting results, ordering, counseling/education, referring/communicating and documentation. Created using voice recognition software, some errors may have occurred. Corrections may be performed at a later date.[facility] 12-18-2024 History of Present illness Narrative* Issac Xiao MD - 12/18/2024 6:28 PM EDT VENETIE IRA: Venkat Marsh is a 59 year old, White, male who returns, I am here about my left neck and thyroid. He thinks that his left neck mass that he first noticed about 7 months ago is getting smallersince he has been taking ivermectin. He does not think there has been a change in his thyroid mass.He is s/p right thyroidectomy at [facility] in 08/2008. He did not have any problem after the FNAs in the office last visit or after the guided FNA of the left neck mass about a week ago. SUBJECTIVE: I reviewed the allergies, medications, problem list, PMH/PSH, FmHx and SocHx as documented in Epic chart. PHYSICAL EXAM: VS: BP 128/70 Pulse 88 Resp 16 Ht 170.2 cm (5' 7) Wt (!) 137.9 kg (304 lb) BMI 47.61 kg/m H/F/N: The facial motion is overall normal. There are no palpable salivary gland masses. The left neck has an indistinct soft 3 cm mass deep to the left SCM. There is a 2 cm isthmus area nodule/goiter. OBJECTIVE: I reviewed with the patient that the thyroid FNA cytology/testing 11/09/2024 through [facility] was consistent with a benign follicular nodule. I reviewed with the patient that the left neck mass FNA cytology of the same date showed fibroadipose tissue with focal a plasia. Because of this he was sent for a guided core biopsy, 11/30/2024 which I reviewed with him showed scant adipose tissue and acellular polarizable material insufficient for evaluation. ASSESSMENT & PLAN: I counseled the patient about the differential diagnosis, natural course, treatment options and answered their questions for all diagnoses and orders: 1. Lipoma of neck - ICD9: 214.1, ICD10: D17.0 2. Nontoxic multinodular goiter - ICD9: 241.1, ICD10: E04.2 At this point he defers surgery on the left neck mass, probable lipoma. He does not appear to need surgery for the thyroid benign follicular nodule. He was counseled to come back sooner if the mass is enlarged. Return in about 6 months (around 06/10/2025) for Neck. Issac Xiao MD 35 minutes Total time including preparation, obtaining/reviewing history, exam, interpreting results, ordering, counseling/education, referring/communicating and documentation. Created using voice recognition software, some errors may have occurred. Corrections may be performed at a later date. documented [facility] Instructions* Patient Instructions* Issac Xiao MD - 12/08/2024 1:29 PM EDT Come in sooner if there are problems or changes. documented in this encounterGuernsey [facility]03-12-2025 Surgery Surgical operation note* Brief Op Note - Hector Fulton MD - 11/30/2024 8:25 AM EDT BRIEF OPERATIVE / PROCEDURE NOTE LOG ID: [id number] SURGERY/PROCEDURE DATE: 11/30/2024 INCISION/PROCEDURE START TIME: INCISION CLOSE/PROCEDURE END TIME: SURGEON(S)/PROCEDURALIST(S) AND INDUSTRIAL HYGIENE MANAGER(S): Surgeons and Role: * Hector Fulton MD - Primary No Additional Staff SURGERY/PROCEDURE(S): Left neck mass biopsy ANESTHESIA: Local FINDINGS: Known fatty left neck mass biopsied with ultrasound guidance. ESTIMATED BLOOD LOSS: 1 mL SPECIMENS: Two 18 gauge cores. COMPLICATIONS: None CLOSURE TECHNIQUE: Primary PRE-OP/PRE-PROCEDURE DIAGNOSIS: Fatty mass in left neck. POST-OP/POST-PROCEDURE DIAGNOSIS: Same as Preop SIGNATURE: Hector Fulton MD PATIENT NAME: Venkat Marsh DATE: November 30, 2024 TIME: 8:26 AM [facility] Work Phone: [phone] Surgical operation note* Brief Op Note - Hector Fulton MD - 11/30/2024 8:25 AM EDT BRIEF OPERATIVE / PROCEDURE NOTE LOG ID: [id number] SURGERY/PROCEDURE DATE: 11/30/2024 INCISION/PROCEDURE START TIME: INCISION CLOSE/PROCEDURE END TIME: SURGEON(S)/PROCEDURALIST(S) AND INDUSTRIAL HYGIENE MANAGER(S): Surgeons and Role: * Hector Fulton MD - Primary No Additional Staff SURGERY/PROCEDURE(S): Left neck mass biopsy ANESTHESIA: Local FINDINGS: Known fatty left neck mass biopsied with ultrasound guidance. ESTIMATED BLOOD LOSS: 1 mL SPECIMENS: Two 18 gauge cores. COMPLICATIONS: None CLOSURE TECHNIQUE: Primary PRE-OP/PRE-PROCEDURE DIAGNOSIS: Fatty mass in left neck. POST-OP/POST-PROCEDURE DIAGNOSIS: Same as Preop SIGNATURE: Hector Fulton MD PATIENT NAME: Venkat Marsh DATE: November 30, 2024 TIME: 8:26 AM documented in this encounterGuernsey [facility]03-12-2025 NoteMultiple deeper levels were evaluated. The tissue is insufficient for evaluation.[facility] Hospital[facility] on above:Order Comment: Specimen Type: TISSUE SPECIMENOrdering Facility: [facility] Address: [address] [place], [place] [address]Performed By: #### [id number] ####[facility] LABORATORYCLIA [id number] [address] [place] 11-24-2024 Telephone encounter Note* Telephone Encounter - Rupert Degroot LPN - 11/24/2024 2:00 PM EST Last Office Visit Date: 10/18/2024 Last Distance Health Visit: 04/19/2024 Has the patient had an appointment at [facility] in the past year, or do they have an upcoming appointment scheduled at [facility]? YES- Continue with refill request. Future Appointment: Visit date not found Pharmacy faxed requesting the following refill Refill(s) Requested: Requested Prescriptions Pending Prescriptions Disp Refills metoprolol succinate ER (TOPROL XL) 25 mg 24 hr tablet 30 tablet 2 Sig: Take 1 tablet by mouth once daily. ALLERGIES Allergen Reactions Amoxicillin-Pot Cla* Anaphylaxis, Swelling Doxycycline Unknown Lisinopril Cough Sulfamethoxazole-Tr* Rash, Hives, Swelling Trimethoprim Swelling (home) [phone] (cell) The patients preferred pharmacy has been captured for this encounter? yes Request is for script(s) to be escript to mail order [facility]. Rupert Degroot LPN [facility]03-06-2025 Miscellaneous Notes* Telephone Encounter - Rupert Degroot LPN - 11/24/2024 2:00 PM EST Last Office Visit Date: 10/18/2024 Last [facility] Visit: 04/19/2024 Has the patient had an appointment at [facility] in the past year, or do they have an upcoming appointment scheduled at [facility]? YES- Continue with refill request. Future Appointment: Visit date not found Pharmacy faxed requesting the following refill Refill(s) Requested: Requested Prescriptions Pending Prescriptions Disp Refills metoprolol succinate ER (TOPROL XL) 25 mg 24 hr tablet 30 tablet 2 Sig: Take 1 tablet by mouth once daily. ALLERGIES Allergen Reactions Amoxicillin-Pot Cla* Anaphylaxis, Swelling Doxycycline Unknown Lisinopril Cough Sulfamethoxazole-Tr* Rash, Hives, Swelling Trimethoprim Swelling (home) [phone] (cell) The patients preferred pharmacy has been captured for this encounter? yes Request is for script(s) to be escript to mail order [facility]. Rupert Degroot LPN documented in this encounterGuernsey [facility] Hospital03-03-2025 NoteHNO ID: [id number] Author: SANDRA ARITA, ? Service: ? Author Type: ? Type: Progress Notes Filed: 11/21/2024 15:27 Note Text: [facility] POPULATION HEALTH NAVIGATION OUTREACH Action/FYI Patient needs to schedule AMW, none in prior year. Please address HCC conditions -Acute on chronic HF, DM w/ Chronic Compl, Spec. Heart Arrhyth, Schizophrenia, COPD/ILD/other chronic lung, Morbid Obesity Patient Identified by Name and : Yes, via phone and via Cuikerhart Reason for Outreach Care Gap or Scheduling Wellness Visits HCC or suspected conditions Care Gap Reviewed:: Annual Wellness visit Controlling Blood Pressure Colorectal Cancer Screening Diabetic Eye Exam Outreach Outcome/Action Unable to reach patient: Left message Cuikerhart message sent Population Health Navigation Workflow Chart Review Payer: [employer] Navigation Signature: Sandra Arita November 21, 2024 3:21 [facility]03-03-2025 History of Present illness Narrative* Sandra Arita - 11/21/2024 3:21 PM EST [facility] POPULATION HEALTH NAVIGATION OUTREACH Action/FYI Patient needs to schedule AMW, none in prior year. Please address HCC conditions -Acute on chronic HF, DM w/ Chronic Compl, Spec. Heart Arrhyth, Schizophrenia, COPD/ILD/other chronic lung, Morbid Obesity Patient Identified by Name and : Yes, via phone and via Cuikerhart Reason for Outreach Care Gap or Scheduling Wellness Visits HCC or suspected conditions Care Gap Reviewed:: Annual Wellness visit Controlling Blood Pressure Colorectal Cancer Screening Diabetic Eye Exam Outreach Outcome/Action Unable to reach patient: Left message Cuikerhart message sent Population Health Navigation Workflow Chart Review Payer: [employer] Navigation Signature: Sandra Arita November 21, 2024 3:21 PM documented in this encounterGuernsey [facility]03-03-2025 NotePatient Outreach (VINICIUSPWS) VENKAT MARSH ([id number]) 1965 M Date Time Provider Department 11/21/24 SANDRA ARITA During your visit today, we recorded the following information about you: Sandra Arita 11/21/2024 3:27 PM Signed [facility] POPULATION HEALTH NAVIGATION OUTREACH Action/FYI Patient needs to schedule AMW, none in prior year. Please address HCC conditions -Acute on chronic HF, DM w/ Chronic Compl, Spec. Heart Arrhyth, Schizophrenia, COPD/ILD/other chronic lung, Morbid Obesity Patient Identified by Name and : Yes, via phone and via Cuikerhart Reason for Outreach Care Gap or Scheduling Wellness Visits HCC or suspected conditions Care Gap Reviewed:: Annual Wellness visit Controlling Blood Pressure Colorectal Cancer Screening Diabetic Eye Exam Outreach Outcome/Action Unable to reach patient: Left message Cuikerhart message sent Population Health Navigation Workflow Chart Review Payer: [employer] Navigation Signature: Sandra Arita November 21, 2024 3:21 PM Allergies As of Date: 11/21/2024 Noted Allergy Reaction AMOXICILLIN-POT CLAVULANATE 12/23/2023 10 - Anaphylaxis 7 - Swelling DOXYCYCLINE 11/09/2024 16 - Unknown LISINOPRIL 04/24/2023 3 - Cough SULFAMETHOXAZOLE-TRIMETHOPRIM 10/20/2009 2 - Rash 4 - Hives 7 - Swelling TRIMETHOPRIM 09/04/2023 7 - Swelling Date Reviewed: 11/09/2024 Reviewed by: Issac Xiao MD - Fully Assessed Reason for Visit: Population Health Navigation Outreach [3910] Cmt: Humanqasim Attributed Member- Needs 2024 Medicare Wellness Appointment Scheduled Prescriptions as of 11/21/2024 - BD SAFETYGLIDE INSULIN SYRINGE 0.5 mL 30 gauge x 5/16 syrg Inject 1 Each subcutaneously every 24 hours. Give with each insulin administration. - dulaglutide (TRULICITY) 1.5 mg/0.5 mL pen injector Inject 1.5 mg subcutaneously one time a week. Monitor bs closely and keep food log - albuterol HFA (PROVENTIL HFA, VENTOLIN HFA) 90 mcg/actuation inhaler Inhale 2 Puffs as instructed every 4 hours as needed for wheezing/shortness of breath. - empagliflozin (JARDIANCE) 10 mg tablet Take 1 tablet by mouth daily with breakfast. - metFORMIN (GLUCOPHAGE) 1,000 mg tablet Take 1 tablet by mouth two times a day. - levothyroxine (SYNTHROID) 125 mcg tablet Take 1 tablet by mouth daily before breakfast. - metoprolol succinate ER (TOPROL XL) 25 mg 24 hr tablet Take 1 tablet by mouth once daily. - Insulin Whitman, Disposable, (PEN NEEDLE) 32 gauge x 5/32 Inject 1 Each subcutaneously every 24 hours. Give with each insulin administration. - insulin glargine 100 unit/mL (3 mL) Inject 20 Units subcutaneously daily at bedtime. Inject 20 Units subcutaneously as directed - mirtazapine (REMERON) 15 mg tablet Take 1 tablet by mouth daily at bedtime. - traZODone (DESYREL) 100 mg tablet Take 1 tablet by mouth daily at bedtime. - magnesium, aluminum hydroxide (MYLANTA ORAL) Take 5 mL by mouth two times a day as needed (heartburn). Meds Comments as of 10/23/2023: 10/23/23 The medications are managed by this patient by: PATIENT OPHELIA Crooks Problem List As Of Date 11/21/2024 Noted Resolved CAD (coronary artery disease) [I25.10] 09/04/2014 S/P coronary artery stent placement [Z95.5] 09/04/2014 Left bundle branch block (LBBB) on electrocardi*09/04/2014 H/O myocardial infarction, greater than 8 weeks*09/04/2014 Tobacco abuse [Z72.0] 09/04/2014 Obesity [E66.9] 09/04/2014 Status post insertion of drug-eluting stent int*11/17/2016 Non morbid obesity due to excess calories [E66.*11/17/2016 Obesity, Class III, BMI >= 40 [E66.01] 05/11/2023 Hypercholesteremia [E78.00] HTN (hypertension) [I10] Schizoaffective disorder, bipolar type (HCC) [F*09/10/2023 11/02/2023 Cocaine dependence in remission ([facility]) [F14.21] 09/10/2023 Hypothyroidism [E03.9] Diabetes mellitus (HCC) [E11.9] Cataract, nuclear sclerotic, both eyes [H25.13] 10/23/2023 Hyperopia of both eyes [H52.03] 10/23/2023 Regular astigmatism of both eyes [H52.223] 10/23/2023 Presbyopia of both eyes [H52.4] 10/23/2023 Mood disorder (HCC) [F39] 11/02/2023 Acute systolic HF (heart failure) (HCC) [I50.21]04/13/2024 Acute on chronic systolic (congestive) heart fa*04/13/2024 04/15/2024 Atrial fib/flutter, transient (HCC) [I48.91, I4*04/14/2024 Mixed hyperlipidemia [E78.2] 04/14/2024 Morbid obesity (HCC) [E66.01] 04/14/2024 Essential hypertension [I10] 04/14/2024 Chronic HFrEF (heart failure with reduced eject*04/14/2024 Typical atrial flutter (HCC) [I48.3] 04/15/2024 Non-compliant patient [Z91.199] Encounter Status:Closed by SANDRA ARITA on 11/21/24[facility]02-24-2025 Telephone encounter Note* Telephone Encounter - Kiko Montana - 11/14/2024 2:22 PM EST November 14, 2024 2:22 PM Patient advised of BMS message. Kiko Montana [facility]02-24-[facility] Miscellaneous Notes* Telephone Encounter - Kiko Montana - 11/14/2024 2:22 PM EST November 14, 2024 2:22 PM Patient advised of BMS message. Kiko Montana * Telephone Encounter - Issac Xiao MD - 11/14/2024 2:13 PM EST Neck mass FNA cytology showed fibroadipose tissue with focal atypia. They suggested core biopsy. This was ordered. The thyroid FNA results not returned yet. * Telephone Encounter - Kiko Montana - 11/14/2024 2:03 PM EST November 14, 2024 2:04 PM Patient advised that per BMS, a CORE BX needs done to get further determination of limp Patient is ok with scheduling another FNA- CORE BX) Is this the neck mass result or thyroid results??? Kiko Montana documented in this encounterGuernsey [facility]02-24-2025 Telephone encounter Note * Telephone Encounter - Issac Xiao MD - 11/14/2024 2:13 PM EST Neck mass FNA cytology showed fibroadipose tissue with focal atypia. They suggested core biopsy. This was ordered. The thyroid FNA results not returned yet. [facility]-24-[facility] Telephone encounter Note* Telephone Encounter - Kiko Montana - 11/14/2024 2:03 PM EST November 14, 2024 2:04 PM Patient advised that per BMS, a CORE BX needs done to get further determination of limp Patient is ok with scheduling another FNA- CORE BX) Is this the neck mass result or thyroid results??? Kiko Montana [facility]02-20-2025 NoteHNO ID: [id number] Author: ISSAC XIAO MD Service: ? Author Type: Physician Type: Progress Notes Filed: 11/10/2024 09:00 Note Text: VENETIE IRA: Venkat Marsh is a 59 year old, White, male who presents, I am here about my neck. He noticed a left neck mass about 7 months ago. He is not sure if it is getting larger. His PCP sent him to general surgery who ordered his CT. General surgery then sent him here. He sometimes has a little trouble breathing when he is laying down. He does have a history of OSAS but is not using CPAP. He had a right thyroidectomy at [facility] in August 2008. He does not have general bleeding or bruising problems but does take aspirin 81 mg daily. SUBJECTIVE: I reviewed the allergies, medications, problem list, PMH/PSH, FmHx and SocHx as documented in Epic chart. PHYSICAL EXAM: VS: BP 126/80 Pulse 84 Resp 16 Ht 170.2 cm (5' 7) Wt (!) 137 kg (302 lb) SpO2 95% BMI 47.30 kg/m? CONST/MS: The patient appears to be in NAD and has a normal voice quality. H/F/N: The facial motion is overall normal. There are no palpable salivary gland masses. The left neck has an indistinct soft 4 cm mass deep to the left SCM. There is a 2 cm isthmus area nodule/goiter. Ears: The external ears and canals are without lesions. Each TM is intact and mobile on pneumatic otoscopy. Nose: The external nose has a 1-2 mm benign-appearing right alar skin lesion. The nasal mucosa appears healthy on nasal speculum exam. The septum has left deviation. The IT are not hypertrophic. OC/OP: The lips and gums are without lesions. The tongue/oral mucosa is healthy. The hard/soft palate, tonsil fossa and posterior pharynx are without lesions. There is a Mallampati III palate. The teeth have some crowns and fillings. COPPER MINER: The mirror exam is prevented by gagging. HP/LX: The mirror exam is prevented by gagging. OBJECTIVE: I reviewed the general surgery notes. I reviewed the neck CT 11/01/2024 which shows a left neck mass 6 cm, deep to the SCM with slight septations and other changes within. It also shows a large left-sided and isthmus goiter with some shift and narrowing of the trachea. ASSESSMENT AND PLAN: I counseled the patient about the differential diagnosis, natural course, treatment options and answered their questions for all diagnoses and orders: 1. Neck mass - ICD9: 784.2, ICD10: R22.1 2. Nontoxic multinodular goiter - ICD9: 241.1, ICD10: E04.2 3. 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 He was counseled he should get CPAP and use it regularly. He was counseled to get FNA of both thyroid and neck mass which he would like to do today, see below. He was counseled to come in sooner if there are problems. Return in about 1 month (around 12/07/2024) for Neck. Issac Xiao MD 50 minutes Total time including preparation, obtaining/reviewing history, exam, interpreting results, ordering, counseling/education, referring/communicating and documentation. Created using voice recognition software, some errors may have occurred. Corrections may be performed at a later date. PROCEDURE NOTE Procedure: FNAs of left neck mass and goiter Pre-/post diagnosis: Left neck mass and goiter Description: I reviewed with the patient R/B/A and he gave OSWALDO. 2% lidocaine with epinephrine was injected over the left lateral neck mass and the isthmus goiter. A 23-gauge needle was used for several passes at each site. Slides and wash were prepared for each site. The patient tolerated this well without bleeding. He was instructed in postprocedure care. Issac Xiao MD Created using voice recognition software, some errors may have occurred. Corrections may be performed at a later date.[facility] 11-10-2024 History of Present illness Narrative* Issca Xiao MD - 11/10/2024 8:50 AM EST VENETIE IRA: Venkat Marsh is a 59 year old, White, male who presents, I am here about my neck. He noticed a left neck mass about 7 months ago. He is not sure if it is getting larger. His PCP sent him to general surgery who ordered his CT. General surgery then sent him here. He sometimes has a little trouble breathing when he is laying down. He does have a history of OSAS but is not using CPAP. He had a right thyroidectomy at [facility] in August 2008. He does not have general bleeding or bruising problems but does take aspirin 81 mg daily. SUBJECTIVE: I reviewed the allergies, medications, problem list, PMH/PSH, FmHx and SocHx as documented in Epic chart. PHYSICAL EXAM: VS: BP 126/80 Pulse 84 Resp 16 Ht 170.2 cm (5' 7) Wt (!) 137 kg (302 lb) SpO2 95% BMI 47.30 kg/m CONST/MS: The patient appears to be in NAD and has a normal voice quality. H/F/N: The facial motion is overall normal. There are no palpable salivary gland masses. The left neck has an indistinct soft 4 cm mass deep to the left SCM. There is a 2 cm isthmus area nodule/goiter. Ears: The external ears and canals are without lesions. Each TM is intact and mobile on pneumatic otoscopy. Nose: The external nose has a 1-2 mm benign-appearing right alar skin lesion. The nasal mucosa appears healthy on nasal speculum exam. The septum has left deviation. The IT are not hypertrophic. OC/OP: The lips and gums are without lesions. The tongue/oral mucosa is healthy. The hard/soft palate, tonsil fossa and posterior pharynx are without lesions. There is a Mallampati III palate. The teeth have some crowns and fillings. COPPER MINER: The mirror exam is prevented by gagging. HP/LX: The mirror exam is prevented by gagging. OBJECTIVE: I reviewed the general surgery notes. I reviewed the neck CT 11/01/2024 which shows a left neck mass 6 cm, deep to the SCM with slight septations and other changes within. It also shows a large left- sided and isthmus goiter with some shift and narrowing of the trachea. ASSESSMENT & PLAN: I counseled the patient about the differential diagnosis, natural course, treatment options and answered their questions for all diagnoses and orders: 1. Neck mass - ICD9: 784.2, ICD10: R22.1 2. Nontoxic multinodular goiter - ICD9: 241.1, ICD10: E04.2 3. 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 He was counseled he should get CPAP and use it regularly. He was counseled to get FNA of both thyroid and neck mass which he would like to do today, see below. He was counseled to come in sooner if there are problems. Return in about 1 month (around 12/07/2024) for Neck. Issac Xiao MD 50 minutes Total time including preparation, obtaining/reviewing history, exam, interpreting results, ordering, counseling/education, referring/communicating and documentation. Created using voice recognition software, some errors may have occurred. Corrections may be performed at a later date. PROCEDURE NOTE Procedure: FNAs of left neck mass and goiter Pre-/post diagnosis: Left neck mass and goiter Description: I reviewed with the patient R/B/A and he gave OSWALDO. 2% lidocaine with epinephrine was injected over the left lateral neck mass and the isthmus goiter. A 23-gauge needle was used for several passes at each site. Slides and wash were prepared for each site. The patient tolerated this wellwithout bleeding. He was instructed in postprocedure care. Issac Xiao MD Created using voice recognition software, some errors may have occurred. Corrections may be performed at a later date. [facility] NoteHNO ID: [id number] Author: ISSAC XIAO MD Service: ? Author Type: Physician Type: Procedures Filed: 11/10/2024 09:00 Note Text: Procedure: FNAs of left neck mass and goiter Pre-/post diagnosis: Left neck mass and goiter Description: I reviewed with the patient R/B/A and he gave OSWALDO. 2% lidocaine with epinephrine was injected over the left lateral neck mass and the isthmus goiter. A 23-gauge needle was used for several passes at each site. Slides and wash were prepared for each site. The patient tolerated this well without bleeding. He was instructed in postprocedure care. Issac Xiao MD Created using voice recognition software, some errors may have occurred. Corrections may be performed at a later date.[facility] 11-10-2024 Procedure note* Issac Xiao MD - 11/10/2024 8:49 AM EST Procedure: FNAs of left neck mass and goiter Pre-/post diagnosis: Left neck mass and goiter Description: I reviewed with the patient R/B/A and he gave OSWALDO. 2% lidocaine with epinephrine was injected over the left lateral neck mass and the isthmus goiter. A 23-gauge needle was used for several passes at each site. Slides and wash were prepared for each site. The patient tolerated this wellwithout bleeding. He was instructed in postprocedure care. Issac Xiao MD Created using voice recognition software, some errors may have occurred. Corrections may be performed at a later date. [facility] Procedure note* Issac Xiao MD - 11/10/2024 8:49 AM EST Procedure: FNAs of left neck mass and goiter Pre-/post diagnosis: Left neck mass and goiter Description: I reviewed with the patient R/B/A and he gave OSWALDO. 2% lidocaine with epinephrine was injected over the left lateral neck mass and the isthmus goiter. A 23-gauge needle was used for several passes at each site. Slides and wash were prepared for each site. The patient tolerated this wellwithout bleeding. He was instructed in postprocedure care. Issac Xiao MD Created using voice recognition software, some errors may have occurred. Corrections may be performed at a later date. [facility] Hospital Discharge instructions Patient Education 11/09/2024 22:30:11 COPD Flare COPD Flare You have had a flare-up of your COPD. COPD (chronic obstructive pulmonary disease) is a common lung disease. It causes your airways to get irritated and narrower. This makes it harder for you to breathe. Emphysema and chronic bronchitis are both types of COPD. This is a long-term (chronic) condition. This means you always have it. Sometimes it gets worse. When this happens, it is called a flare-up. Symptoms of COPD People with COPD may have symptoms most of the time. In a flare-up, your symptoms get worse. These symptoms may mean you are having a flare-up: Shortness of breath, shallow or rapid breathing, or wheezing that gets worse Lung infection Cough that gets worse More mucus, thicker mucus or mucus of a different color Tiredness, less energy, or trouble doing your normal activities Fever Chest tightness Your symptoms don t get better even when you use your normal medicines, inhalers, and nebulizer Trouble talking You feel confused Causes of flare-ups Unfortunately, a flare-up can happen even if you did everything right. And even if you followed your healthcare provider s instructions. Some causes of flare- ups are: Smoking or secondhand smoke Colds, the flu, or respiratory infections Air pollution Sudden change in the weather Dust, irritating chemicals, or strong fumes Not taking your medicines as prescribed Home care Here are some things you can do at home to treat a flare-up: Try not to panic. This makes it harder to breathe, and keeps you from doing the right things. Don t smoke or be around others who are smoking. Try to drink more fluids than normal during a flare-up, unless your healthcare provider has told you not to because of heart and kidney problems. More fluids can help loosen the mucus. Use your inhalers and nebulizer, if you have one, as you have been told to. If you were given antibiotics, take them until they are used up or your provider tells you to stop.It s important to finish the antibiotics, even though you feel better. This will make sure the infection has cleared. If you were given prednisone or another steroid, finish it even if you feel better. Preventing a flare-up Flare-ups happen. But the best way to treat one is to prevent it before it starts. Here are some pointers: Don t smoke or be around others who are smoking. Take your medicines as discussed with your healthcare provider. Talk with your provider about getting a flu shot every year. Also find out if you need a pneumonia shot. If there is a weather advisory warning to stay indoors, try to stay inside when possible. Try to eat healthy, exercise, and get plenty of sleep. Try to stay away from things that normally set you off. These include dust, chemical fumes, hairsprays, or strong perfumes. Follow-up care Follow up with your healthcare provider, or as advised. If a culture was done, you will be told if your treatment needs to be changed. You can call as directed for the results. If X-rays were done, you will be told of any new findings that may affect your care. Call 911 Call 911 if any of these occur: You have trouble breathing You feel confused or it s hard to wake you up You faint or lose consciousness You have a rapid heart rate You have new pain in your chest, arm, shoulder, neck, or upper back When to seek medical advice Call your healthcare provider right away if any of these occur: Wheezing or shortness of breath gets worse You need to use your inhalers more often than normal without relief Fever of 100.4 F (38 C) or higher, or as directed by your healthcare provider Coughing up lots of dark-colored or bloody mucus (sputum) Chest pain with each breath You don't start to get better within 24 hours Swelling of your ankles gets worse Dizziness or weakness [id number] [employer]. [address] [place] [address], [place] [address]. All rights reserved. This information is not intended as a substitute for professional medical care. Always follow yourhealthcare professional's instructions. Follow Up Care 11/09/2024 19:45:49 With:GAVIN BETANCUR II Address: [address] [place] [id number]- When:2-4 days [facility] 02-19-2025 Note Discharge Instructions Thank you for allowing [facility] to assist you with your healthcare needs. The following is importantdischarge information regarding your hospital visit. What to Do Next Instructions from Your Care Team No qualifying data available. Post Acute Orders No qualifying data available. You Need to Schedule the Following Appointments Follow Up with GAVIN BETANCUR II When:Within 2-4 days Where:[address] [place], [place] [id number]- Allergies Bactrim swelling doxycycline Medications Please ask your primary doctor or pharmacist before taking any other medication not listed, including over the counter drugs, herbal medications, vitamins and or supplements as they may interact withyour home medications. What How Much When Instructions Last Dose New amoxicillin (amoxicillin 875 mg oral tablet) 1 tab(s) by mouth Two (2) times a day Duration: 7 Days take with a probiotic Printed Prescription New predniSONE (prednisone 10mg tab (TAPER)) 6 tab(s) by mouth Once a day Duration: 7 Days with food Printed Prescription Unchanged albuterol (albuterol MDI (90 mcg/ inh) CFC free inhalation aerosol) 2 puff(s) by inhalation Every 4 hours Unchanged albuterol (albuterol MDI (90 mcg/ inh) CFC free inhalation aerosol) 2 puff(s) by inhalation Every 4 hours Unchanged albuterol (albuterol MDI (90 mcg/ inh) CFC free inhalation aerosol) 2 puff(s) by inhalation Every 4 hours as needed for as needed for wheezing Unchanged aspirin (aspirin 325 mg oral tablet) 1 tab(s) by mouth Every day Unchanged levothyroxine (levothyroxine 125 mcg (0.125 mg) oral tablet) 1 tab(s) by mouth Once a day Unchanged metoprolol (metoprolol tartrate 50 mg oral tablet) 1 tab(s) by mouth Once a day Please take this list to your next doctor s visit. Bring all medications you take, including over the counter medications, herbals and other supplements with you to your doctor s visit. Patients and families are reminded to discard old lists and to update any records with all medication providers or retail pharmacies. Education Materials COPD Flare You have had a flare-up of your COPD. COPD (chronic obstructive pulmonary disease) is a common lung disease. It causes your airways to get irritated and narrower. This makes it harder for you to breathe. Emphysema and chronic bronchitis are both types of COPD. This is a long-term (chronic) condition. This means you always have it. Sometimes it gets worse. When this happens, it is called a flare-up. Symptoms of COPD People with COPD may have symptoms most of the time. In a flare-up, your symptoms get worse. These symptoms may mean you are having a flare-up: Shortness of breath, shallow or rapid breathing, or wheezing that gets worse Lung infection Cough that gets worse More mucus, thicker mucus or mucus of a different color Tiredness, less energy, or trouble doing your normal activities Fever Chest tightness Your symptoms don t get better even when you use your normal medicines, inhalers, and nebulizer Trouble talking You feel confused Causes of flare-ups Unfortunately, a flare-up can happen even if you did everything right. And even if you followed your healthcare provider s instructions. Some causes of flare- ups are: Smoking or secondhand smoke Colds, the flu, or respiratory infections Air pollution Sudden change in the weather Dust, irritating chemicals, or strong fumes Not taking your medicines as prescribed Home care Here are some things you can do at home to treat a flare-up: Try not to panic. This makes it harder to breathe, and keeps you from doing the right things. Don t smoke or be around others who are smoking. Try to drink more fluids than normal during a flare-up, unless your healthcare provider has told you not to because of heart and kidney problems. More fluids can help loosen the mucus. Use your inhalers and nebulizer, if you have one, as you have been told to. If you were given antibiotics, take them until they are used up or your provider tells you to stop.It s important to finish the antibiotics, even though you feel better. This will make sure the infection has cleared. If you were given prednisone or another steroid, finish it even if you feel better. Preventing a flare-up Flare-ups happen. But the best way to treat one is to prevent it before it starts. Here are some pointers: Don t smoke or be around others who are smoking. Take your medicines as discussed with your healthcare provider. Talk with your provider about getting a flu shot every year. Also find out if you need a pneumonia shot. If there is a weather advisory warning to stay indoors, try to stay inside when possible. Try to eat healthy, exercise, and get plenty of sleep. Try to stay away from things that normally set you off. These include dust, chemical fumes, hairsprays, or strong perfumes. Follow-up care Follow up with your healthcare provider, or as advised. If a culture was done, you will be told if your treatment needs to be changed. You can call as directed for the results. If X-rays were done, you will be told of any new findings that may affect your care. Call 911 Call 911 if any of these occur: You have trouble breathing You feel confused or it s hard to wake you up You faint or lose consciousness You have a rapid heart rate You have new pain in your chest, arm, shoulder, neck, or upper back When to seek medical advice Call your healthcare provider right away if any of these occur: Wheezing or shortness of breath gets worse You need to use your inhalers more often than normal without relief Fever of 100.4 F (38 C) or higher, or as directed by your healthcare provider Coughing up lots of dark-colored or bloody mucus (sputum) Chest pain with each breath You don't start to get better within 24 hours Swelling of your ankles gets worse Dizziness or weakness [id number] [employer]. [address] [place] [address], [place] [address]. All rights reserved. This information is not intended as a substitute for professional medical care. Always follow yourhealthcare professional's instructions. Additional Information VACCINATE! IT SAVES LIVES! Members of the community who have not yet received the COVID-19 vaccine and would like to receive it can visit one of [facility] vaccine clinics. There are many vaccine clinic locations within the [facility]. For locations and available times, please visit [email or web address] It is important to note that some COVID mobile vaccine clinics are held outdoors and may be canceled in rainy or stormy conditions. To learn more about pediatric vaccinations (ages 5-11), we invite you to visit the [facility] webpage. [email or web address]/[email or web address] [email or web address] learn more about the COVID-19 vaccine, we invite you to visit the CDC website for a list of frequently asked questions. https://www.cdc.gov/coronavirus/2019-ncov/vaccines/faq.html [facility] Patient Portal Access Instructions: Stay connected with your healthcare team and access your personal medical information anytime with the [facility] Patient Portal. If you would like a full copy of your medical records please contact the [facility] Medical Records Department Thursday through Thursday between 8a.m. and 4:30p.m. Please follow the directions below to access the portal: 1.Access the email account you provided upon registration to the hospital.2.Look for an invitation email from [facility].3.Open the email and access the invitation link: Accept Invitation to [facility]4.Fill in the required bee to create your account. Sign into [email or web address] with your username and password that you created in the above steps to stay up to date. You can then view a summary of results, a summary of your visits, and the ability to download your summaries to your computer or send the information securely to a physician. Remember that your healthcare information is confidential, so carefully consider who you will allow to register on the [facility] Patient Portal for access to your information. You can also access the [facility] Patient Portal on the [employer] taco. Simply click on Health Records under [employer] and then click on the [facility] logo. HOW TO SAFELY DISPOSE OF PRESCRIPTION MEDICATIONS Please use one of the following methods to safely dispose of your unused medications. 1.Use a drug disposal kit: the drug disposal pouch allows you to safely discard your old and unuseddrugs. Ask your nurse to give you one when you are discharged.2.Visit a local take-back location: Many local pharmacies and police departments have programs that collect old and unwanted prescriptiondrugs. Call your local pharmacy or go to http://[facility]om[facility]Med.Dormir/1U8Ot1l to find one close to you.3.Make use of household items: Use cat litter or old coffee grounds to dispose medications if other options arenot available. Mix your drugs with these household products, seal them in an airtight container andthrow it into the garbage. Call [facility]: [phone] to be sure your drugs can be disposed of in this way. Some medicines may require a different approach.4.Never flush your medications down the toilet. IF YOU HAVE BEEN PRESCRIBED AN OPIOIDS FOR PAIN If you have been prescribed an opioid (such as hydrocodone, oxycodone or morphine), it is critical to understand the possible side effects and risks of opioid pain medications. Even when taken as directed, opioids can have several side effects including: Tolerance, meaning you might need to take more of a medication for the same pain relief. Nausea, vomiting and/or constipation. Sleepiness, dizziness, dry mouth, confusion, depression or itching. Physical dependence, meaning you have withdrawal symptoms when a medication is stopped ? this can develop within a few days. KNOW YOUR RESPONSIBILITIES It is important to know exactly how much and how often to take the opioid pain medications you are prescribed. Never take opioids in higher amounts or more often than prescribed. Do not combine opioids with alcohol or other drugs that cause drowsiness, such as benzodiazepines, also known as benzos,including diazepam and alprazolam, muscle relaxants or sleep aids. Never sell or share prescriptionopioids. This is illegal. Store opioids in a secure place and out of reach of others (including children, family, friends and visitors). The last page(s) of this document has been signed and retained as a CHART COPY Signatures Patient Education Materials COPD Flare Medication Leaflets My discharge plan and instructions have been reviewed and explained to me and ISALMA STEPHEN Gunderstand my current condition and have read and understand these discharge instructions. I have received a written copy of the plan/instructions. If I have questions, I am aware that I should contact my doctor. 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 The lungs are clear without evidence of focal consolidation, mass, pleural effusion, or pneumothorax. The cardiomediastinal silhouette is enlarged. The bones and soft tissues are unremarkable. IMPRESSION: Cardiomegaly without acute consolidation. Interpreted by: Natali Carlton MD Preliminary Report By: Natali Carlton MD Electronically signed By Natali Carlton MD Dictated Date: 11/09/2024 10:01:20 PM Prelim Date: 11/09/2024 10:01:46 PM Sign Date: 11/09/2024 10:01:46 PM Ordering Provider: SERGEI DAWN [facility]02-19-2025 Note* Exam Date Time Procedure Performing Provider Status 11/09/24 9:27 PM EKG [ED AOH] - CV SERGEI DAWN DO; Au (Verified) ECG Final Report Sinus rhythm Prolonged UT interval Nonspecific intraventricular conduction delay Probable lateral infarct, age indeterminate Probable anteroseptal infarct, recent Baseline wander in lead(s) V2,V4 Electronic Signature: SERGEI DAWN DO 11/09/2024 21:38:15 [facility]02-19-2025 Instructions* Patient Instructions* Issac Xiao MD - 11/09/2024 12:01 PM EST Expect some mild swelling and bruising at the biopsy sites but it should go away in a couple of days. Contact us if there are problems. documented in [facility]25 NoteHNO ID: [id number] Author: INDER BRUCE MD Service: ? Author Type: Physician Type: Progress Notes Filed: 11/07/2024 16:53 Note Text: Venkat Marsh is a 59 year old male who is here for follow-up after his recent CT scan of the neck. He is doing well. CT scan showed a large irregular fat-containing mass deep to the left sternocleidomastoid muscle measuring up to 6 cm in size. Multiple internal septations and mildly nodular mural components. He also has a multinodular goiter. Findings reviewed with him in detail. ALLERGIES Allergen Reactions Amoxicillin-Pot Cla* Anaphylaxis, Swelling Lisinopril Cough Sulfamethoxazole-Tr* Rash, Hives, Swelling Current Outpatient Medications Medication Sig dulaglutide (TRULICITY) 1.5 mg/0.5 mL pen injector Inject 1.5 mg subcutaneously one time a week. Monitor bs closely and keep food log metFORMIN (GLUCOPHAGE) 1,000 mg tablet Take 1 tablet by mouth two times a day. levothyroxine (SYNTHROID) 125 mcg tablet Take 1 tablet by mouth daily before breakfast. sacubitril-valsartan (ENTRESTO) 24-26 mg tablet Take 1 tablet by mouth two times a day. spironolactone (ALDACTONE) 25 mg tablet Take 1 tablet by mouth once daily. nystatin (MYCOSTATIN) 100,000 unit/mL suspension Take 1 mL by mouth four times daily. Swish and swallow. 5 ml 4times daily albuterol HFA (PROVENTIL HFA, VENTOLIN HFA) 90 mcg/actuation inhaler Inhale 2 Puffs as instructed every 4 hours as needed for wheezing/shortness of breath. Insulin Syringe-Needle U-100 0.5 mL 31 gauge x 5/16 Inject 1 Each subcutaneously every 24 hours. Give with each insulin administration. empagliflozin (JARDIANCE) 10 mg tablet Take 1 tablet by mouth daily with breakfast. metoprolol succinate ER (TOPROL XL) 25 mg 24 hr tablet Take 1 tablet by mouth once daily. Insulin Whitman, Disposable, (PEN NEEDLE) 32 gauge x 5/32 Inject 1 Each subcutaneously every 24 hours. Give with each insulin administration. insulin glargine 100 unit/mL (3 mL) Inject 20 Units subcutaneously daily at bedtime. Inject 20 Units subcutaneously as directed mirtazapine (REMERON) 15 mg tablet Take 1 tablet by mouth daily at bedtime. traZODone (DESYREL) 100 mg tablet Take 1 tablet by mouth daily at bedtime. rosuvastatin (CRESTOR) 10 mg tablet Take 1 tablet by mouth daily at bedtime. magnesium, aluminum hydroxide (MYLANTA ORAL) Take 5 mL by mouth two times a day as needed (heartburn). No current facility-administered medications for this visit. PHYSICAL EXAM: BP 141/84 Pulse 88 Resp 20 Ht 5' 7 (1.70m) Wt 295 lb (133.8kg) BMI 46.19 kg/(m2). General Appearance: Well appearing, alert, in no acute distress, well-hydrated, well nourished. and Obese. Assessment: Neck mass (primary encounter diagnosis) Coronary artery disease involving [place] coronary artery of [place] heart without angina pectoris Plan: ASSESSMENT/PLAN: 1. Neck mass - ICD9: 784.2, ICD10: R22.1 (primary diagnosis) Given the size and location of the mass I did recommend he be evaluated by ENT. Referral made to ENT. - CONSULT TO ENT 2. Coronary artery disease involving [place] coronary artery of [place] heart without angina pectoris - ICD9: 414.01, ICD10: I25.10 I spent 15 minutes in the visit, with more than 50% of the total [id number] time of the visit in counseling / coordination of care. Inder Bruce M.D., F.A.C.S.[facility]02-17-2025 History of Present illness Narrative* Inder Bruce MD - 11/07/2024 3:05 PM EST Venkat Marsh is a 59 year old male who is here for follow-up after his recent CT scan of the neck. He is doing well. CT scan showed a large irregular fat-containing mass deep to the left sternocleidomastoid muscle measuring up to 6 cm in size. Multiple internal septations and mildly nodular mural components. He also has a multinodular goiter. Findings reviewed with him in detail. ALLERGIES Allergen Reactions Amoxicillin-Pot Cla* Anaphylaxis, Swelling Lisinopril Cough Sulfamethoxazole-Tr* Rash, Hives, Swelling Current Outpatient Medications Medication Sig dulaglutide (TRULICITY) 1.5 mg/0.5 mL pen injector Inject 1.5 mg subcutaneously one time a week. Monitor bs closely and keep food log metFORMIN (GLUCOPHAGE) 1,000 mg tablet Take 1 tablet by mouth two times a day. levothyroxine (SYNTHROID) 125 mcg tablet Take 1 tablet by mouth daily before breakfast. sacubitril-valsartan (ENTRESTO) 24-26 mg tablet Take 1 tablet by mouth two times a day. spironolactone (ALDACTONE) 25 mg tablet Take 1 tablet by mouth once daily. nystatin (MYCOSTATIN) 100,000 unit/mL suspension Take 1 mL by mouth four times daily. Swish and swallow. 5 ml 4times daily albuterol HFA (PROVENTIL HFA, VENTOLIN HFA) 90 mcg/actuation inhaler Inhale 2 Puffs as instructed every 4 hours as needed for wheezing/shortness of breath. Insulin Syringe-Needle U-100 0.5 mL 31 gauge x 5/16 Inject 1 Each subcutaneously every 24 hours. Give with each insulin administration. empagliflozin (JARDIANCE) 10 mg tablet Take 1 tablet by mouth daily with breakfast. metoprolol succinate ER (TOPROL XL) 25 mg 24 hr tablet Take 1 tablet by mouth once daily. Insulin Whitman, Disposable, (PEN NEEDLE) 32 gauge x 5/32 Inject 1 Each subcutaneously every 24 hours. Give with each insulin administration. insulin glargine 100 unit/mL (3 mL) Inject 20 Units subcutaneously daily at bedtime. Inject 20 Units subcutaneously as directed mirtazapine (REMERON) 15 mg tablet Take 1 tablet by mouth daily at bedtime. traZODone (DESYREL) 100 mg tablet Take 1 tablet by mouth daily at bedtime. rosuvastatin (CRESTOR) 10 mg tablet Take 1 tablet by mouth daily at bedtime. magnesium, aluminum hydroxide (MYLANTA ORAL) Take 5 mL by mouth two times a day as needed (heartburn). No current facility-administered medications for this visit. PHYSICAL EXAM: BP 141/84 Pulse 88 Resp 20 Ht 5' 7 (1.70m) Wt 295 lb (133.8kg) BMI 46.19 kg/(m^2). General Appearance: Well appearing, alert, in no acute distress, well-hydrated, well nourished. andObese. Assessment: Neck mass (primary encounter diagnosis) Coronary artery disease involving [place] coronary artery of [place] heart without angina pectoris Plan: ASSESSMENT/PLAN: 1. Neck mass - ICD9: 784.2, ICD10: R22.1 (primary diagnosis) Given the size and location of the mass I did recommend he be evaluated by ENT. Referral made to ENT. - CONSULT TO ENT 2. Coronary artery disease involving [place] coronary artery of [place] heart without angina pectoris- ICD9: 414.01, ICD10: I25.10 I spent 15 minutes in the visit, with more than 50% of the total rgvt-ov-tqzp time of the visit in counseling / coordination of care. Inder Bruce M.D., F.A.C.S. documented in this encounterGu[facility]02-12-2025 Telephone encounter Note * Telephone Encounter - Magnolia Mcmahon RN - 11/02/2024 11:07 AM EST Patient notified of results and provider's instructions. Patient verbalizes understanding. Magnolia Mcmahon RN [facility]02-12-2025 Miscellaneous Notes* Telephone Encounter - Magnolia Mcmahon RN - 11/02/2024 11:07 AM EST Patient notified of results and provider's instructions. Patient verbalizes understanding. Magnolia Mcmahon RN * Telephone Encounter - Rebecca Renteria LPN - 11/02/2024 10:54 AM EST VM left for patient to return call to review results and recommendations. Rebecca Renteria LPN ' * Telephone Encounter - Rebecca Renteria LPN - 11/02/2024 10:53 AM EST ----- Message from Oscar Brizuela MD sent at 11/02/2024 8:34 AM EST ----- UA negative for infection. Diabetes uncontrolled with A1c of 7.9. recommend increasing his trulicity to 1.5 mg weekly with repeat A1c in 3 months. Check sugars fasting and before bed with goal <130 fasting and <150 before bed. Call with readings <70. Creatinine up slightly which can be an early sign of kidney impairment. Recommend low sodium diet <2,000 mg per day, avoidance of NSAIDs, and increased water intake. documented in this [facility]Gu[facility]02-12-2025 Telephone encounter Note * Telephone Encounter - Rebecca Renteria LPN - 11/02/2024 10:54 AM EST VM left for patient to return call to review results and recommendations. Rebecca Renteria LPN ' [facility]02-12-[facility] Telephone encounter Note* Telephone Encounter - Rebecca Renteria LPN - 11/02/2024 10:53 AM EST ----- Message from Oscar Brizuela MD sent at 11/02/2024 8:34 AM EST ----- UA negative for infection. Diabetes uncontrolled with A1c of 7.9. recommend increasing his trulicity to 1.5 mg weekly with repeat A1c in 3 months. Check sugars fasting and before bed with goal <130 fasting and <150 before bed. Call with readings <70. Creatinine up slightly which can be an early sign of kidney impairment. Recommend low sodium diet <2,000 mg per day, avoidance of NSAIDs, and increased water intake. [facility]02-11-[facility] History of Present illness Narrative* Boo Domínguez RT(R) - 11/01/2024 8:40 AM EST Radiology Service Progress Note DATE OF SERVICE: November 01, 2024 TIME: 3:03 PM PATIENT IDENTITY VERIFICATION COMPLETED USING TWO (2) STANDARD IDENTIFIERS: Name and Date of confirmed by patient verbally. FALL SCREENING: Has the patient had 2 falls in the last year or 1 fall with injury or currently using an Ambulatory Assistive Device (Walker, Cane, Wheelchair, Crutches, etc.)? No PATIENT GENDER DATA: Assigned male at PATIENT RELEVANT IMPLANT DATA REVIEWED: Yes PATIENT PRESENTS WITH AN IMPLANTABLE OR ATTACHED WOOL WASHING MACHINE OPERATOR: No ALLERGIES: Reviewed and unchanged CONTRAST ALLERGY: NO. EXAM: CT -CONTRAST INDUCED NEPHROPATHY RISK FACTORS: Patient age > 60 years CREATININE: Creatinine Date Value Ref Range Status 11/01/2024 1.32 (H) 0.73 - 1.22 mg/dL Final 06/02/2024 1.20 0.73 - 1.22 mg/dL Final 04/15/2024 1.48 (H) 0.73 - 1.22 mg/dL Final Estimated Glomerular Filtration Rate Date Value Ref Range Status 11/01/2024 61 >=60 mL/min/1.73m Final Comment: Estimated Glomerular Filtration Rate (eGFR) is calculated using the 2020 CKD-EPI creatinine equation. This equation utilizes serum creatinine, sex, and age as parameters. The creatinine assay has traceable calibration to isotope dilution- mass spectrometry. Refer to KDIGO guidelines for clinical interpretation. In patients with unstable renal function, e.g. those with acute kidney injury, the eGFRmay not accurately reflect actual GFR. eGFR- Date Value Ref Range Status 08/24/2014 >60 Final P.O.C.T. RESULTS: POC done: Yes, See Lab Tab November 01, 2024 TREATMENT: N/A PERIPHERAL IV DATA: Ambulatory: A peripheral IV was started in the Left antecubital site with a Angio cath: 22 gauge. RADIOLOGY DEPARTMENT: CT; Exam(s) Completed: Neck SIGNATURE: RT Deirdre(R) PATIENT NAME: Venkat Marsh DATE: November 01, 2024 TIME: 3:03 PM documented in this encounterGu[facility]02-11-2025 NoteHNO ID: [id number] Author: BOO DOMÍNGUEZ RT(R) Service: ? Author Type: Nuclear Reactor Technician Type: Progress Notes Filed: 11/01/2024 15:04 Note Text: Radiology Service Progress Note DATE OF SERVICE: November 01, 2024 TIME: 3:03 PM PATIENT IDENTITY VERIFICATION COMPLETED USING TWO (2) STANDARD IDENTIFIERS: Name and Date of confirmed by patient verbally. FALL SCREENING: Has the patient had 2 falls in the last year or 1 fall with injury or currently using an Ambulatory Assistive Device (Walker, Cane, Wheelchair, Crutches, etc.)? No PATIENT GENDER DATA: Assigned male at PATIENT RELEVANT IMPLANT DATA REVIEWED: Yes PATIENT PRESENTS WITH AN IMPLANTABLE OR ATTACHED WOOL WASHING MACHINE OPERATOR: No ALLERGIES: Reviewed and unchanged CONTRAST ALLERGY: NO. EXAM: CT -CONTRAST INDUCED NEPHROPATHY RISK FACTORS: Patient age > 60 years CREATININE: Creatinine Date Value Ref Range Status 11/01/2024 1.32 (H) 0.73 - 1.22 mg/dL Final 06/02/2024 1.20 0.73 - 1.22 mg/dL Final 04/15/2024 1.48 (H) 0.73 - 1.22 mg/dL Final Estimated Glomerular Filtration Rate Date Value Ref Range Status 11/01/2024 61 >=60 mL/min/1.73m? Final Comment: Estimated Glomerular Filtration Rate (eGFR) is calculated using the 2020 CKD-EPI creatinine equation. This equation utilizes serum creatinine, sex, and age as parameters. The creatinine assay has traceable calibration to isotope dilution-mass spectrometry. Refer to KDIGO guidelines for clinical interpretation. In patients with unstable renal function, e.g. those with acute kidney injury, the eGFR may not accurately reflect actual GFR. eGFR- Date Value Ref Range Status 08/24/2014 >60 Final P.O.C.T. RESULTS: POC done: Yes, See Lab Tab November 01, 2024 TREATMENT: N/A PERIPHERAL IV DATA: Ambulatory: A peripheral IV was started in the Left antecubital site with a Angio cath: 22 gauge. RADIOLOGY DEPARTMENT: CT; Exam(s) Completed: Neck SIGNATURE: RT Deirdre(R) PATIENT NAME: Venkat Marsh DATE: November 01, 2024 TIME: 3:03 [facility]02-06-2025 Instructions* Patient Instructions* Oscar Brizuela MD - 10/27/2024 2:25 PM EST Please call and schedule an appointment with your telegraphic typewriter mechanic and CHF clinic. It looks like you are overdue. Please bring your blood pressure cuff and glucose meter to your upcoming appointment. documented in this encounterGu[facility]02-06-2025 NoteHNO ID: [id number] Author: OSCAR BRIZUELA MD Service: ? Author Type: Physician Type: Progress Notes Filed: 11/02/2024 08:05 Note Text: Chief Complaint Patient presents with: Establish Care HPI Venkat Marsh is a 59 year old male who presents here today for Above Complaints. Previous PCP Dr. Chanel with last OV 10/18/24. [facility] but didn't like it there. Patient is a poor historian. Patient concerned because his blood pressure has been running high for at least 6 months. Patient is compliant with his metoprolol but has not been on his Entresto or Aldactone for CHF for several months. CAD s/p PCI to LAD in [address] Ponce and Dr. Carrington. Notes that he stopped taking his Crestor after about 1 week because he does not want to be on a cholesterol medication. Refusing new rx today. Patient falling asleep several times during our appointment. States that he feels tired all day and does fall asleep quickly sitting in chairs or after dinner. Does not fall asleep while driving. Is on both Remeron and Trazodone for bipolar disorder. Has documented history of ELBERT, but does not have a CPAP machine at home. Does not want order for PSG or referral. Patient refusing lung and colon cancer screening today. Will consider once his insurance gets updated. Patient states DM is controlled with fasting <120 and <150 before bed. Compliant with regimen. Due for A1c. Past medical history, appointments, medications, allergies reviewed. Previous Medical History PAST MEDICAL HISTORY Diagnosis Date Bipolar 1 disorder ([facility]) psychiatry in [place] CAD S/P percutaneous coronary angioplasty 2011 [place] PCI to LAD in 2011. Dr. Ponce CHF (congestive heart failure) ([facility]) Diabetes mellitus ([facility]) History of acute myocardial infarction HTN (hypertension) Hypercholesteremia Hypothyroidism Morbid obesity with BMI of 45.0-49.9, adult ([facility]) Non-compliant patient ELBERT (obstructive sleep apnea) Tobacco use disorder Previous Surgical History PAST SURGICAL HISTORY Procedure Laterality Date ANGIOPLASTY 2011 [facility] STENT, PCI to LAD COLONOSCOPY 2009 [facility] ARTHROSCOPY/SURGERY 2000 loose body removal lt HAND SURGERY HX Left 2022 [facility] ARTHROSCOPY/SURGERY 1984 loose body removal lt OSTEOTOMY FIBULA Left 1980 PAST SURGICAL HISTORY OF 1988 Rt wrist bone graft PAST SURGICAL HISTORY OF R navicular REPAIR INGUINAL HERNIA 1986 REPAIR NASAL SEPTUM DEFECT 1996 THYROIDECTOMY SUBTOTAL/PARTIAL 2008 TONSILLECTOMY PRIMARY/SECONDARY Tonsillectomy Family History FAMILY HISTORY Problem Relation Age of Onset Cancer Mother uterine No Known Problems Brother other (depression) Maternal Grandmother Patient Allergies ALLERGIES Allergen Reactions Amoxicillin-Pot Cla* Anaphylaxis, Swelling Metformin Diarrhea Lisinopril Cough Sulfamethoxazole-Tr* Rash, Hives, Swelling Current Medications Current Outpatient Medications on File Prior to Visit Medication Sig spironolactone (ALDACTONE) 25 mg tablet Take 1 tablet by mouth once daily. nystatin (MYCOSTATIN) 100,000 unit/mL suspension Take 1 mL by mouth four times daily. Swish and swallow. 5 ml 4times daily albuterol HFA (PROVENTIL HFA, VENTOLIN HFA) 90 mcg/actuation inhaler Inhale 2 Puffs as instructed every 4 hours as needed for wheezing/shortness of breath. Insulin Syringe-Needle U-100 0.5 mL 31 gauge x 5/16 Inject 1 Each subcutaneously every 24 hours. Give with each insulin administration. empagliflozin (JARDIANCE) 10 mg tablet Take 1 tablet by mouth daily with breakfast. metFORMIN (GLUCOPHAGE) 1,000 mg tablet Take 1 tablet by mouth two times a day. levothyroxine (SYNTHROID) 125 mcg tablet Take 1 tablet by mouth daily before breakfast. metoprolol succinate ER (TOPROL XL) 25 mg 24 hr tablet Take 1 tablet by mouth once daily. Insulin Whitman, Disposable, (PEN NEEDLE) 32 gauge x 5/32 Inject 1 Each subcutaneously every 24 hours. Give with each insulin administration. dulaglutide (TRULICITY) 0.75 mg/0.5 mL pen injector Inject 0.75 mg subcutaneously one time a week. Monitor bs closely and keep food log insulin glargine 100 unit/mL (3 mL) Inject 20 Units subcutaneously daily at bedtime. Inject 20 Units subcutaneously as directed mirtazapine (REMERON) 15 mg tablet Take 1 tablet by mouth daily at bedtime. traZODone (DESYREL) 100 mg tablet Take 1 tablet by mouth daily at bedtime. rosuvastatin (CRESTOR) 10 mg tablet Take 1 tablet by mouth daily at bedtime. magnesium, aluminum hydroxide (MYLANTA ORAL) Take 5 mL by mouth two times a day as needed (heartburn). sacubitril-valsartan (ENTRESTO) 24-26 mg tablet Take 1 tablet by mouth two times a day. No current facility-administered medications on file prior to visit. Social History Social History Tobacco Use Smoking status: Every Day Current packs/day: 0.50 Average packs/day: 0.5 packs/day for 40.5 years (20 (more content not included)...[facility]02-06-2025 History of Present illness Narrative* Oscar Brizuela MD - 10/27/2024 1:45 PM EST Chief Complaint Patient presents with: Establish Care HPI Venkat Marsh is a 59 year old male who presents here today for Above Complaints. Previous PCPDr. Loftian with last OV 10/18/24. [facility] butdidn't like it there. Patient is a poor historian. Patient concerned because his blood pressure has been running high for at least 6 months. Patient is compliant with his metoprolol but has not been on his Entresto or Aldactone for CHF for several months. CAD s/p PCI to LAD in [address] Ponce and Dr. Carrington. Notes that he stopped taking his Crestor after about 1 week because he does not want to be on a cholesterol medication. Refusing new rx today. Patient falling asleep several times during our appointment. States that he feels tired all day anddoes fall asleep quickly sitting in chairs or after dinner. Does not fall asleep while driving. Is on both Remeron and Trazodone for bipolar disorder. Has documented history of ELBERT, but does not havea CPAP machine at home. Does not want order for PSG or referral. Patient refusing lung and colon cancer screening today. Will consider once his insurance gets updated. Patient states DM is controlled with fasting <120 and <150 before bed. Compliant with regimen. Due for A1c. Past medical history, appointments, medications, allergies reviewed. Previous Medical History PAST MEDICAL HISTORY Diagnosis Date Bipolar 1 disorder ([facility]) psychiatry in [place] CAD S/P percutaneous coronary angioplasty 2011 [place] PCI to LAD in 2011. Dr. Ponce CHF (congestive heart failure) ([facility]) Diabetes mellitus ([facility]) History of acute myocardial infarction HTN (hypertension) Hypercholesteremia Hypothyroidism Morbid obesity with BMI of 45.0-49.9, adult ([facility]) Non-compliant patient ELBERT (obstructive sleep apnea) Tobacco use disorder Previous Surgical History PAST SURGICAL HISTORY Procedure Laterality Date ANGIOPLASTY 2011 [facility] STENT, PCI to LAD COLONOSCOPY 2009 [facility]OW ARTHROSCOPY/SURGERY 2000 loose body removal lt HAND SURGERY HX Left 2022 KNEE ARTHROSCOPY/SURGERY 1984 loose body removal lt OSTEOTOMY FIBULA Left 1980 PAST SURGICAL HISTORY OF 1988 Rt wrist bone graft PAST SURGICAL HISTORY OF R navicular REPAIR INGUINAL HERNIA 1986 REPAIR NASAL SEPTUM DEFECT 1996 THYROIDECTOMY SUBTOTAL/PARTIAL 2009 TONSILLECTOMY PRIMARY/SECONDARY <AGE 10 Tonsillectomy Family History FAMILY HISTORY Problem Relation Age of Onset Cancer Mother uterine No Known Problems Brother other (depression) Maternal Grandmother Patient Allergies ALLERGIES Allergen Reactions Amoxicillin-Pot Cla* Anaphylaxis, Swelling Metformin Diarrhea Lisinopril Cough Sulfamethoxazole-Tr* Rash, Hives, Swelling Current Medications Current Outpatient Medications on File Prior to Visit Medication Sig spironolactone (ALDACTONE) 25 mg tablet Take 1 tablet by mouth once daily. nystatin (MYCOSTATIN) 100,000 unit/mL suspension Take 1 mL by mouth four times daily. Swish and swallow. 5 ml 4times daily albuterol HFA (PROVENTIL HFA, VENTOLIN HFA) 90 mcg/actuation inhaler Inhale 2 Puffs as instructed every 4 hours as needed for wheezing/shortness of breath. Insulin Syringe-Needle U-100 0.5 mL 31 gauge x 5/16 Inject 1 Each subcutaneously every 24 hours. Give with each insulin administration. empagliflozin (JARDIANCE) 10 mg tablet Take 1 tablet by mouth daily with breakfast. metFORMIN (GLUCOPHAGE) 1,000 mg tablet Take 1 tablet by mouth two times a day. levothyroxine (SYNTHROID) 125 mcg tablet Take 1 tablet by mouth daily before breakfast. metoprolol succinate ER (TOPROL XL) 25 mg 24 hr tablet Take 1 tablet by mouth once daily. Insulin Whitman, Disposable, (PEN NEEDLE) 32 gauge x 5/32 Inject 1 Each subcutaneously every 24 hours. Give with each insulin administration. dulaglutide (TRULICITY) 0.75 mg/0.5 mL pen injector Inject 0.75 mg subcutaneously one time a week. Monitor bs closely and keep food log insulin glargine 100 unit/mL (3 mL) Inject 20 Units subcutaneously daily at bedtime. Inject 20 Units subcutaneously as directed mirtazapine (REMERON) 15 mg tablet Take 1 tablet by mouth daily at bedtime. traZODone (DESYREL) 100 mg tablet Take 1 tablet by mouth daily at bedtime. rosuvastatin (CRESTOR) 10 mg tablet Take 1 tablet by mouth daily at bedtime. magnesium, aluminum hydroxide (MYLANTA ORAL) Take 5 mL by mouth two times a day as needed (heartburn). sacubitril-valsartan (ENTRESTO) 24-26 mg tablet Take 1 tablet by mouth two times a day. No current facility-administered medications on file prior to visit. Social History Social History Tobacco Use Smoking status: Every Day Current packs/day: 0.50 Average packs/day: 0.5 packs/day for 40.5 years (20.3 ttl pk-yrs) Types: Cigarettes Start date: 04/21/2023 Smokeless tobacco: Never Vaping Use Vaping status: Never Used Substance Use Topics Alcohol use: No Drug use: No Review of Symptoms REVIEW OF SYSTEMS GENERAL: No weight loss, malaise or fevers HEENT: Negative for frequent or significant headaches, No changes in hearing or vision, no nose bleeds or other nasal problems NECK: Negative for lumps, goiter, pain and significant neck swelling RESPIRATORY: Negative for cough, hemoptysis, wheezing, COPD, dyspnea or shortness of breath CARDIOVASCULAR: Negative for chest pain, leg swelling, hypertension, CHF or palpitations GI: No nausea, vomiting, or diarrhea : No history of dysuria, frequency or incontinence MUSCULOSKELETAL: Negative for joint pain or swelling, back pain or muscle pain SKIN: Negative for lesions, rash, and itching PSYCH: Negative for sleep disturbance, mood disorder and recent psychosocial stressors HEMATOLOGY/LYMPHOLOGY: Negative for prolonged bleeding, bruising easily or swollen nodes ENDOCRINE: Negative for cold or heat intolerance, polyuria, polydipsia and goiter EXAM: BP 152/108 Pulse 90 Resp 20 Ht 170.4 cm (5' 7.09) Wt 131.6 kg (290 lb 0.6 oz) SpO2 99% BMI 45.31 kg/m General Appearance: Well appearing, alert, in no acute distress, well-hydrated, well nourished. andMorbidly obese. Skin: Skin color, texture, turgor normal, no suspicious rashes or lesions. Head: Normocephalic, no masses, lesions, tenderness or abnormalities. Eyes: Anicteric sclera. Pupils are equally round and reactive to light. Extraocular movements are intact. . Ears: External ears normal, canals clear. Oropharynx: Lips, mucosa, and tongue normal, teeth and gums normal, oropharynx normal. Neck: Supple, no adenopathy; thyroid symmetric, normal size, no bruits. Lungs: Lungs clear to auscultation. No wheezing, rhonchi, rales.. Heart: RRR without murmur, gallop, or rubs. No ectopy. Abdomen: Normal abdominal exam, Abdomen soft, non-tender. Bowel sounds normal. No masses, organomegaly. Extremities: No deformities, edema, skin discoloration, clubbing or cyanosis. Good capillary refill. . Peripheral Pulses: Normal. Neurologic: CN II-XII grossly intact. Lymph Nodes: No cervical lymphadenopathy and No supraclavicular lymphadenopathy. Health Maintenance List Diabetic Foot Exam Never done Spirometry Never done Depression Screening Never done Anxiety Screening Never done BP Controlled (<130/80) Never done Pneumococcal Vaccine: 50+(1 of 2 - PCV) Never done Lung Cancer Screening Never done Colorectal Cancer Screening due on 04/12/2014 Influenza Vaccine(1) due on 05/22/2024 Covid-19 Vaccine( - 2023- season) Never done Dilated Retinal Exam due on 10/23/2024 DTaP,Tdap,Td Vaccine(1 - Tdap) due on 02/07/2025 RSV Vaccine(1 - Risk 60-74 years 1-dose series) due on 02/07/2025 Shingrix Vaccine(1 of 2) due on 02/07/2025 HbA1C due on 11/30/2024 Urine Albumin:Creatinine Ratio due on 06/02/2025 LDL Cholesterol due on 10/18/2025 Annual PCP Team Chronic Disease Visit due on 10/18/2025 Prostate Cancer Screening Discussion due on 03/25/2028 Hepatitis C Screening Completed HIV Screening Completed Data reviewed Latest Ref Rng 06/02/2024 10/18/2024 WBC 3.70 - 11.00 k/uL 13.00 (H) RBC 4.20 - 6.00 m/uL 6.09 (H) Hemoglobin 13.0 - 17.0 g/dL 19.1 (H) Hematocrit 39.0 - 51.0 % 57.3 (H) MCV 80.0 - 100.0 fL 94.1 MCH 26.0 - 34.0 pg 31.4 MCHC 30.5 - 36.0 g/dL 33.3 RDW-CV 11.5 - 15.0 % 13.7 Platelet Count 150 - 400 k/uL 229 MPV 9.0 - 12.7 fL 10.8 Absolute nRBC <0.01 k/uL <0.01 Glucose 74 - 99 mg/dL 101 (H) BUN 9 - 24 mg/dL 15 Creatinine 0.73 - 1.22 mg/dL 1.20 Sodium 136 - 144 mmol/L 138 Potassium 3.7 - 5.1 mmol/L 5.1 Chloride 98 - 107 mmol/L 101 CO2 22 - 30 mmol/L 25 Anion Gap 8 - 15 mmol/L 12 Calcium 8.5 - 10.2 mg/dL 9.7 eGFR >=60 mL/min/1.73m 69 Cholesterol, Total <200 mg/dL 201 (H) Triglyceride <150 mg/dL 169 (H) HDL Cholesterol >39 mg/dL 43 Non HDL Cholesterol <130 mg/dL 158 (H) Fasting Time hrs 10 VLDL Cholesterol <30 mg/dL 34 (H) TC:HDL Ratio <5.10 4.67 LDL Cholesterol <100 mg/dL 124 (H) LDL:HDL Ratio <2.54 2.88 (H) Creatinine, Ur Random (UCRR) 20.0 - 300.0 mg/dL 85.6 Albumin, Urine Random mg/L 129.9 Albumin/Creat Ratio <30 mg/g 152 (H) Hemoglobin A1C 4.3 - 5.6 % 7.6 (H) Estimated Average Glucose mg/dL 171 Ferritin 30.3 - 565.7 ng/mL 89.6 Legend: (H) High ASSESSMENT/PLAN: 1. Encounter for medical examination to establish care - ICD9: V70.9, ICD10: Z00.00 (primary diagnosis) - Counseled on healthy diet and regular exercise - Discussed need for and benefit of weight loss. BMI 45.31 kg/(m^2) - Smoking cessation encouraged; discussed health risks and quitting strategies. Patient is not ready to quit - Counseled on alcohol intake and health risks - Follow up for annual exam in one year 2. Primary hypertension - ICD9: 401.9, ICD10: I10 - Uncontrolled - Discussed importance of compliance with his Entresto and Aldactone. - Recommend home blood pressure monitoring, to bring results to next visit - Encouraged sodium restriction, DASH or Mediterranean diet - Recommend regular aerobic exercise - F/u in 2 weeks for BP recheck 3. Mixed hyperlipidemia - ICD9: 272.2, ICD10: E78.2 - Uncontrolled - Refusing statin - Counseled on healthy diet and regular exercise 4. Type 2 diabetes mellitus with other specified complication, unspecified whether prison insulin use (HCC) - ICD9: 250.80, ICD10: E11.69 - Control undetermined, due for labs - Continue current medications - Blood glucose monitoring on a twice daily schedule - Counseled on healthy diet and regular exercise - Discussed need for and benefit of weight loss. BMI 45.31 kg/(m^2) - Discussed diabetic education issues of diabetes complications and monitoring required, hypoglycemic/hyperglycemic symptoms, medication-specific side effects and monitoring, and diabetic sick day rules - Follow up in 3 months, sooner should any other issues arise. - HEMOGLOBIN A1C - COMPREHENSIVE METABOLIC PANEL - URINALYSIS, WITH MICROSCOPIC 5. Coronary artery disease involving [place] coronary artery of [place] heart without angina pectoris- ICD9: 414.01, ICD10: I25.10 Asymptomatic. Non compliant with medical management. Discussed benefits from statin and HTN control. Discussed low cholesterol diet, exercise, weight loss and smoking cessation. 6. S/P coronary artery stent placement - ICD9: V45.82, ICD10: Z95.5 See above. 7. Chronic HFrEF (heart failure with reduced ejection fraction) (HCC) - ICD9: 428.22, ICD10: I50.22 Asymptomatic. F/u with cardiology as scheduled. No changes to regimen. - SPIRONOLACTONE 25 MG TABLET 8. ELBERT (obstructive sleep apnea) - ICD9: 327.23, ICD10: G47.33 Discussed risks of uncontrolled ELBERT with patient including: increased risk for [place], CVA, DM, HTN, arrhythmia, memory loss. Discussed he should not be driving while drowsy as he could fall asleep at the wheel and cause an accident. Will place order for PSG and sleep medicine in case he changes his mind about CPAP. - POLYSOMNOGRAM (PSG) - CONSULT TO SLEEP MEDICINE - ADULT 9. Non-compliant patient - ICD9: V15.81, ICD10: Z91.199 Discussed importance of compliance with regimen. 10. Hypothyroidism, unspecified type - ICD9: 244.9, ICD10: E03.9 - Instructed patient on importance of taking on an empty stomach either first thing in the morning or at bedtime. - continue current dose of Synthroid 11. Tobacco abuse - ICD9: 305.1, ICD10: Z72.0 - Cessation encouraged. - Physiologic and physical aspects of tobacco addiction as well as strategies for quitting were discussed. - Counseling was given focusing on the harmful effects of this addiction especially given the patient's medical condition(s) which will be worsened because of the chemicals in tobacco. I spent a total of 45 minutes on the date of the service which included preparing to see the patient, [id number] patient care, completing clinical documentation, obtaining and/or reviewing separately obtained history, performing a medically appropriate examination, counseling and educating the pat ient/family/caregiver, and ordering medications, tests, or procedures. Oscar Brizuela MD documented in this encounterGu[facility]25 NoteHNO ID: [id number] Author: CLAUS ANDERSON, DO Service: ? Author Type: Physician Type: Progress Notes Filed: 10/18/2024 17:33 Note Text: Internal Medicine Attending Note This service has been performed by a resident without the presence of a teaching physician under the primary care exception. I agree with the resident's findings and plan as documented and have discussed the case and management of the patient's care with the resident. Claus Anderson [facility]01-28-2025 History of Present illness Narrative* Claus Anderson DO - 10/18/2024 5:33 PM EST Internal Medicine Attending Note This service has been performed by a resident without the presence of a teaching physician under the primary care exception. I agree with the resident's findings and plan as documented and have discussed the case and management of the patient's care with the resident. Claus Anderson DO * Oral Abbasi DO - 10/18/2024 10:22 AM EST Images from the original note were not included. [facility] Oral Abbasi DO ASSESSMENT/PLAN: 1. Hypertension, unspecified type - ICD9: 401.9, ICD10: I10 (primary diagnosis) - He is overall a poor historian with low health literacy. He could not recall what medication he is taking or what he had recently filled. His blood pressure is poorly controlled likely in the setting of medication non-compliance - Stop taking Goody Headache as this can also increase blood pressure - Continue current medications - Recommend home blood pressure monitoring, to bring results to next visit - Recommend regular aerobic exercise - Discussed need for and benefit of weight loss. BMI 44.95 kg/(m^2) - Will have him follow up in one week for blood pressure check since we restarted his aldactone 2. Chronic HFrEF (heart failure with reduced ejection fraction) (HCC) - ICD9: 428.22, ICD10: I50.22 - HFrEF <=40 - Continue current medications - Referral to cardiology - Encouraged sodium restriction - Encouraged daily weights - SPIRONOLACTONE 25 MG TABLET - CONSULT TO CARDIOLOGY 3. Cough, unspecified type - ICD9: 786.2, ICD10: R05.9 - DME SUPPLY OR ACCESSORY, NOS [Incentive Spirometry] 4. Thrush (oral) - ICD9: 112.0, ICD10: B37.0 - [place]STAT[place] 100,000 UNIT/ML ORAL SUSPENSION Follow up in one week for blood pressure check as well as 2-3 weeks for follow up Oral Abbasi DO SUBJECTIVE: Venkat Marsh is a 59 year old male with past medical history of coronary artery disease s/p remote [place] in 2011 with PCI to LAD,HFrEF (ECHO 03/2024 -17%) on Entresto 24-26, BB, aldactone, Jardiance, diabetes, hypertension, hyperlipidemia use rosuvastatin), hypothyroidism, bipolar disorder, obstructive sleep apnea not on CPAP. He is here to follow-up for an acute visit of high blood pressure. He tells me that he was recentlyswitched over from metoprolol to tartrate to succinate 25 mg daily. At home his blood pressures runanywhere from 150s to 140s. Upon reviewing recent messages on his chart review with cardiology it appears that they have not been able to to refill his aldactone for the past month or so. He was also seen in the [place] clinic about 6- 8 weeks ago. He was prescribed antibiotics for which he could not recount the name of, he completed the course about 3- 4 weeks ago. He now has some cough with sputum production that is jackson. He took Mucinex which did not seem to help. He was also seen at General Surgery earlier today for neck mass which he will be following up with CT neck that is pending at this time. HPI PAST MEDICAL HISTORY Diagnosis Date Bipolar 1 disorder (HCC) CAD S/P percutaneous coronary angioplasty 2011 [place] Diabetes mellitus (HCC) History of acute myocardial infarction HTN (hypertension) Hypercholesteremia Hypothyroidism PAST SURGICAL HISTORY Procedure Laterality Date ANGIOPLASTY 2011 [facility] STENT COLONOSCOPY 2010 [place] ARTHROSCOPY/SURGERY 2000 loose body removal lt HAND SURGERY HX Left 2022 [facility] ARTHROSCOPY/SURGERY 1985 loose body removal lt OSTEOTOMY FIBULA Left 1980 PAST SURGICAL HISTORY OF 1988 Rt wrist bone graft PAST SURGICAL HISTORY OF R navicular REPAIR INGUINAL HERNIA 1986 REPAIR NASAL SEPTUM DEFECT 1996 THYROIDECTOMY SUBTOTAL/PARTIAL 2009 TONSILLECTOMY PRIMARY/SECONDARY <AGE 10 Tonsillectomy Social History Tobacco Use Smoking status: Every Day Current packs/day: 0.50 Average packs/day: 0.5 packs/day for 40.5 years (20.2 ttl pk-yrs) Types: Cigarettes Start date: 04/21/2023 Smokeless tobacco: Never Vaping Use Vaping status: Never Used Substance Use Topics Alcohol use: No Drug use: No FAMILY HISTORY Problem Relation Age of Onset Cancer Mother uterine other (depression) Maternal Grandmother PAIN EVALUATION No data found in the last 1 encounters. ALLERGIES Allergen Reactions Amoxicillin-Pot Cla* Anaphylaxis, Swelling Metformin Diarrhea Lisinopril Cough Sulfamethoxazole-Tr* Rash, Hives, Swelling Medication List prior to visit Current Outpatient Medications Medication Sig iv contrast (will be provided with radiology test) Inject 1 Each intravenously one time only for [address] Neck W IVCON No IV access, insert saline lock prior to the sedation, infusion, injection for imaging exam. Discontinue saline lock post exam. If Pt. has a central line or IVAD, may access foradministration according to line specific nursing protocol. Once exam is complete flush line and de-access according to line specific nursing protocol in the CT contrast administration guidelines link. albuterol HFA (PROVENTIL HFA, VENTOLIN HFA) 90 mcg/actuation inhaler Inhale 2 Puffs as instructed every 4 hours as needed for wheezing/shortness of breath. Insulin Syringe-Needle U-100 0.5 mL 31 gauge x 5/16 Inject 1 Each subcutaneously every 24 hours. Give with each insulin administration. empagliflozin (JARDIANCE) 10 mg tablet Take 1 tablet by mouth daily with breakfast. metFORMIN (GLUCOPHAGE) 1,000 mg tablet Take 1 tablet by mouth two times a day. levothyroxine (SYNTHROID) 125 mcg tablet Take 1 tablet by mouth daily before breakfast. metoprolol succinate ER (TOPROL XL) 25 mg 24 hr tablet Take 1 tablet by mouth once daily. Insulin Whitman, Disposable, (PEN NEEDLE) 32 gauge x 5/32 Inject 1 Each subcutaneously every 24 hours. Give with each insulin administration. dulaglutide (TRULICITY) 0.75 mg/0.5 mL pen injector Inject 0.75 mg subcutaneously one time a week. Monitor bs closely and keep food log insulin glargine 100 unit/mL (3 mL) Inject 20 Units subcutaneously daily at bedtime. Inject 20 Units subcutaneously as directed mirtazapine (REMERON) 15 mg tablet Take 1 tablet by mouth daily at bedtime. traZODone (DESYREL) 100 mg tablet Take 1 tablet by mouth daily at bedtime. rosuvastatin (CRESTOR) 10 mg tablet Take 1 tablet by mouth daily at bedtime. sacubitril-valsartan (ENTRESTO) 24-26 mg tablet Take 1 tablet by mouth two times a day. magnesium, aluminum hydroxide (MYLANTA ORAL) Take 5 mL by mouth two times a day as needed (heartburn). spironolactone (ALDACTONE) 25 mg tablet Take 1 tablet by mouth once daily. nystatin (MYCOSTATIN) 100,000 unit/mL suspension Take 1 mL by mouth four times daily. Swish and swallow. 5 ml 4times daily aspirin, enteric coated (ADULT LOW DOSE ASPIRIN) 81 mg EC tablet Take 1 tablet by mouth once daily. furosemide (LASIX) 40 mg tablet Take 1 tablet by mouth once daily. Patient should start on March. (Patient not taking: Reported on 10/18/2024) No current facility-administered medications for this visit. I have confirmed and edited as necessary the chief complaint, medications, past medical, family andsocial histories. Review of Systems NOTED IN HPI OBJECTIVE: BP 141/93 Pulse 81 Ht 170.2 cm (5' 7) Wt 130.2 kg (287 lb) BMI 44.95 kg/m Last Wt 10/18/24 : 130.2 kg (287 lb) 10/18/24 : 132.5 kg (292 lb) 05/11/24 : 124.7 kg (275 lb) Last BP 10/18/24 : 141/93 10/18/24 : (!) 164/124 05/11/24 : 115/78 Physical Exam PHYSICAL EXAM: Constitutional: Oriented to person, place, and time. Appears well-developed and well-nourished. No distress. HENT: Normocephalic and atraumatic. Oropharynx is clear and moist. No oropharyngeal exudate. PERRLA. EOM are normal. No scleral icterus. Neck: Neck with palpable R sided lump, firm, non - tender Pulmonary/Chest: No respiratory distress. Musculoskeletal: Normal range of motion. Exhibits no edema. Neurological: Alert and oriented to person, place, and time. Skin: Skin is warm and dry. Capillary refill takes less than 2 seconds. No rash noted. 03/28/2024 10/03/2024 PHQ-9 All Questions Little interest or pleasure in doing things: 1 1 Feeling down, depressed, or hopeless: 1 1 Trouble falling or staying asleep, or sleeping too much 1 Feeling tired or having little energy 3 Poor appetite or overeating 0 Feeling bad about yourself - or that you are a failure or have let yourself or your family down 0 Trouble concentrating on things, such as reading the newspaper or watching television 2 Moving or speaking so slowly that other people could have noticed. Or the opposite - being so fidgety or restless that you have been moving around a lot more than usual 0 Thoughts that you would be better off , or of hurting yourself in some way 0 PHQ-9 Score 8 (0-4) minimal depression, (5-9) mild depression, (10-14) moderate depression, (15-19) moderately severe depression, (20-27) severe depression Medications Discontinued During This Encounter Medication Reason ASA/acetaminophen/caffeine/pot (GOODY'S HEADACHE POWDER ORAL) spironolactone (ALDACTONE) 25 mg tablet nystatin (MYCOSTATIN) 100,000 unit/mL suspension Return in about 1 week (around 10/25/2024) for Bp check . Discussed the above with the patient and my preceptor using shared decision-making. The patient is in agreement with the diagnostic and treatment plans. Oral Abbasi DO, signed on October 18, 2024 10:22 AM documented in this encounterGuernsey [facility]01-28-2025 Telephone encounter Note * Telephone Encounter - Kathia Hoover - 10/18/2024 3:14 PM EST Referral to cardiology entered into the [facility] portal on 10/18/24. Confirmation number [id number]. [facility]01-28-[facility] Miscellaneous Notes* Telephone Encounter - Kathia Hoover - 10/18/2024 3:14 PM EST Referral to cardiology entered into the [facility] portal on 10/18/24. Confirmation number [id number]. documented in this encounterGuernsey [facility]01-28-2025 Telephone encounter Note * Telephone Encounter - Miky العراقي - 10/18/2024 3:05 PM EST Cardioogy referral placed in [facility] portal. Confirmation number: [id number] Miky العراقي, Housekeeping Worker October 18, 2024 3:06 PM [facility]01-28-[facility] Miscellaneous Notes* Telephone Encounter - Miky العراقي - 10/18/2024 3:05 PM EST Cardioogy referral placed in [facility] portal. Confirmation number: [id number] Miky العراقي, Housekeeping Worker October 18, 2024 3:06 PM documented in this encounterGuernsey [facility]01-28-2025 NoteHNO ID: [id number] Author: ORAL ABBASI DO Service: ? Author Type: Resident Type: Progress Notes Filed: 10/18/2024 15:11 Note Text: [facility] Oral Abbasi DO ASSESSMENT/PLAN: 1. Hypertension, unspecified type - ICD9: 401.9, ICD10: I10 (primary diagnosis) - He is overall a poor historian with low health literacy. He could not recall what medication he is taking or what he had recently filled. His blood pressure is poorly controlled likely in the setting of medication non-compliance - Stop taking Goody Headache as this can also increase blood pressure - Continue current medications - Recommend home blood pressure monitoring, to bring results to next visit - Recommend regular aerobic exercise - Discussed need for and benefit of weight loss. BMI 44.95 kg/(m2) - Will have him follow up in one week for blood pressure check since we restarted his aldactone 2. Chronic HFrEF (heart failure with reduced ejection fraction) ([facility]) - ICD9: 428.22, ICD10: I50.22 - HFrEF <=40 - Continue current medications - Referral to cardiology - Encouraged sodium restriction - Encouraged daily weights - SPIRONOLACTONE 25 MG TABLET - CONSULT TO CARDIOLOGY 3. Cough, unspecified type - ICD9: 786.2, ICD10: R05.9 - DME SUPPLY OR ACCESSORY, NOS [Incentive Spirometry] 4. Thrush (oral) - ICD9: 112.0, ICD10: B37.0 - [place]STATIN 100,000 UNIT/ML ORAL SUSPENSION Follow up in one week for blood pressure check as well as 2-3 weeks for follow up Oral Abbasi, SUBJECTIVE: Venkat Marsh is a 59 year old male with past medical history of coronary artery disease s/p remote [place] in 2011 with PCI to LAD,HFrEF (ECHO 03/2024 -17%) on Entresto 24-26, BB, aldactone, Jardiance, diabetes, hypertension, hyperlipidemia use rosuvastatin), hypothyroidism, bipolar disorder, obstructive sleep apnea not on CPAP. He is here to follow-up for an acute visit of high blood pressure. He tells me that he was recently switched over from metoprolol to tartrate to succinate 25 mg daily. At home his blood pressures run anywhere from 150s to 140s. Upon reviewing recent messages on his chart review with cardiology it appears that they have not been able to to refill his aldactone for the past month or so. [facility] He was prescribed antibiotics for which he could not recount the name of, he completed the course about 3- 4 weeks ago. He now has some cough with sputum production that is jackson. He took Mucinex which did not seem to help. He was also seen at General Surgery earlier today for neck mass which he will be following up with CT neck that is pending at this time. HPI PAST MEDICAL HISTORY Diagnosis Date Bipolar 1 disorder (HCC) CAD S/P percutaneous coronary angioplasty 2011 [place] Diabetes mellitus (HCC) History of acute myocardial infarction HTN (hypertension) Hypercholesteremia Hypothyroidism PAST SURGICAL HISTORY Procedure Laterality Date ANGIOPLASTY 2011 [facility] STENT COLONOSCOPY 2009 [place] ARTHROSCOPY/SURGERY 2000 loose body removal lt HAND SURGERY HX Left 2022 [facility]NEE ARTHROSCOPY/SURGERY 1985 loose body removal lt OSTEOTOMY FIBULA Left 1980 PAST SURGICAL HISTORY OF 1988 Rt wrist bone graft PAST SURGICAL HISTORY OF R navicular REPAIR INGUINAL HERNIA 1986 REPAIR NASAL SEPTUM DEFECT 1996 THYROIDECTOMY SUBTOTAL/PARTIAL 2009 TONSILLECTOMY PRIMARY/SECONDARY Tonsillectomy Social History Tobacco Use Smoking status: Every Day Current packs/day: 0.50 Average packs/day: 0.5 packs/day for 40.5 years (20.2 ttl pk-yrs) Types: Cigarettes Start date: 04/21/2023 Smokeless tobacco: Never Vaping Use Vaping status: Never Used Substance Use Topics Alcohol use: No Drug use: No FAMILY HISTORY Problem Relation Age of Onset Cancer Mother uterine other (depression) Maternal Grandmother PAIN EVALUATION No data found in the last 1 encounters. ALLERGIES Allergen Reactions Amoxicillin-Pot Cla* Anaphylaxis, Swelling Metformin Diarrhea Lisinopril Cough Sulfamethoxazole-Tr* Rash, Hives, Swelling Medication List prior to visit Current Outpatient Medications Medication Sig iv contrast (will be provided with radiology test) Inject 1 Each intravenously one time only for [address] Neck W IVCON No IV access, insert saline lock prior to the sedation, infusion, injection for imaging exam. Discontinue saline lock post exam. If Pt. has a central line or IVAD, may access for administration according to line specific nursing protocol. Once exam is complete flush line and de-access according to line specific nursing protocol in the CT contrast administration guidelines link. albuterol HFA (PROVENTIL HFA, VENTOLIN HFA) 90 mcg/actuation inhaler Inhale 2 Puffs as instructed every 4 hours as needed for wheezing/shortness of breath. Insulin Syringe-Needle U-100 0.5 mL 31 gauge x 5/16 Inject 1 Each subcutaneously arias (more content not included)...[facility] 10-18-2024 Instructions* Patient Instructions* Inder Bruce MD - 10/18/2024 9:39 AM EST Thank you for coming to see me today. It is my pleasure to take care of you. If you have any questions regarding your visit, please don't hesitate to contact us. Mediterranean Diet Blue Zone Diet documented in this encounterGuernsey [facility] Hospital01-28-2025 NoteHNO ID: [id number] Author: INDER BRUCE MD Service: ? Author Type: Physician Type: Progress Notes Filed: 10/18/2024 15:18 Note Text: Consultation requested by Dr. Craven for an opinion regarding neck mass. My final recommendations will be communicated back to the requesting physician by way of shared Medical record or letter to requesting physician via [place] mail. Venkat Marsh is a 59 year old White male who presents with complaints of left-sided neck mass. He has had this for about 6 months. He thinks it is increasing in size and does cause him discomfort. Denies any weight loss. He does smoke half pack of cigarettes a day. Ultrasound did reveal a 3.8 cm solid avascular mass. PAST MEDICAL HISTORY Diagnosis Date Bipolar 1 disorder (HCC) CAD S/P percutaneous coronary angioplasty 2011 [place] Diabetes mellitus (HCC) History of acute myocardial infarction HTN (hypertension) Hypercholesteremia Hypothyroidism PAST SURGICAL HISTORY Procedure Laterality Date ANGIOPLASTY 2011 [facility] STENT COLONOSCOPY 2009 [place] ARTHROSCOPY/SURGERY 2000 loose body removal lt HAND SURGERY HX Left 2022 [facility] ARTHROSCOPY/SURGERY 1984 loose body removal lt OSTEOTOMY FIBULA Left 1980 PAST SURGICAL HISTORY OF 1988 Rt wrist bone graft PAST SURGICAL HISTORY OF R navicular REPAIR INGUINAL HERNIA 1986 REPAIR NASAL SEPTUM DEFECT 1996 THYROIDECTOMY SUBTOTAL/PARTIAL 2009 TONSILLECTOMY PRIMARY/SECONDARY Tonsillectomy Social History Tobacco Use Smoking status: Every Day Current packs/day: 0.50 Average packs/day: 0.5 packs/day for 40.5 years (20.2 ttl pk-yrs) Types: Cigarettes Start date: 04/21/2023 Smokeless tobacco: Never Vaping Use Vaping status: Never Used Substance Use Topics Alcohol use: No Drug use: No FAMILY HISTORY Problem Relation Age of Onset Cancer Mother uterine other (depression) Maternal Grandmother ALLERGIES Allergen Reactions Amoxicillin-Pot Cla* Anaphylaxis, Swelling Metformin Diarrhea Lisinopril Cough Sulfamethoxazole-Tr* Rash, Hives, Swelling Current Outpatient Medications Medication Sig albuterol HFA (PROVENTIL HFA, VENTOLIN HFA) 90 mcg/actuation inhaler Inhale 2 Puffs as instructed every 4 hours as needed for wheezing/shortness of breath. empagliflozin (JARDIANCE) 10 mg tablet Take 1 tablet by mouth daily with breakfast. metFORMIN (GLUCOPHAGE) 1,000 mg tablet Take 1 tablet by mouth two times a day. levothyroxine (SYNTHROID) 125 mcg tablet Take 1 tablet by mouth daily before breakfast. metoprolol succinate ER (TOPROL XL) 25 mg 24 hr tablet Take 1 tablet by mouth once daily. dulaglutide (TRULICITY) 0.75 mg/0.5 mL pen injector Inject 0.75 mg subcutaneously one time a week. Monitor bs closely and keep food log insulin glargine 100 unit/mL (3 mL) Inject 20 Units subcutaneously daily at bedtime. Inject 20 Units subcutaneously as directed mirtazapine (REMERON) 15 mg tablet Take 1 tablet by mouth daily at bedtime. traZODone (DESYREL) 100 mg tablet Take 1 tablet by mouth daily at bedtime. rosuvastatin (CRESTOR) 10 mg tablet Take 1 tablet by mouth daily at bedtime. spironolactone (ALDACTONE) 25 mg tablet Take 1 tablet by mouth once daily. sacubitril-valsartan (ENTRESTO) 24-26 mg tablet Take 1 tablet by mouth two times a day. magnesium, aluminum hydroxide (MYLANTA ORAL) Take 5 mL by mouth two times a day as needed (heartburn). nystatin (MYCOSTATIN) 100,000 unit/mL suspension Take 100,000 Units by mouth four times daily. Swish and swallow. 5 ml 4times daily iv contrast (will be provided with radiology test) Inject 1 Each intravenously one time only for [address] Neck W IVCON No IV access, insert saline lock prior to the sedation, infusion, injection for imaging exam. Discontinue saline lock post exam. If Pt. has a central line or IVAD, may access for administration according to line specific nursing protocol. Once exam is complete flush line and de-access according to line specific nursing protocol in the CT contrast administration guidelines link. Insulin Syringe-Needle U-100 0.5 mL 31 gauge x 5/16 Inject 1 Each subcutaneously every 24 hours. Give with each insulin administration. Insulin Whitman, Disposable, (PEN NEEDLE) 32 gauge x 5/32 Inject 1 Each subcutaneously every 24 hours. Give with each insulin administration. aspirin, enteric coated (ADULT LOW DOSE ASPIRIN) 81 mg EC tablet Take 1 tablet by mouth once daily. ASA/acetaminophen/caffeine/pot (GOODY'S HEADACHE POWDER ORAL) Take 1 Packet by mouth as needed (headaches). furosemide (LASIX) 40 mg tablet Take 1 tablet by mouth once daily. Patient should start on April 16, 2024. (Patient not taking: Reported on 10/18/2024) No current facility-administered medications for this visit. REVIEW OF SYSTEMS PAIN ASSESSMENT: Negative for pain, history of chronic pain, or current treatment for a chronic pain condition. GENERAL: No weight loss, malaise or fevers NECK: (more content not included)...[facility]01-28-2025 History of Present illness Narrative* Inder Bruce MD - 10/18/2024 9:33 AM EST Consultation requested by Dr. Craven for an opinion regarding neck mass. My final recommendations will be communicated back to the requesting physician by way of shared Medical record or letter to requesting physician via US mail. Venkat Marsh is a 59 year old White male who presents with complaints of left-sided neck mass. He has had this for about 6 months. He thinks it is increasing in size and does cause him discomfort. Denies any weight loss. He does smoke half pack of cigarettes a day. Ultrasound did reveal a 3.8cm solid avascular mass. PAST MEDICAL HISTORY Diagnosis Date Bipolar 1 disorder (HCC) CAD S/P percutaneous coronary angioplasty 2011 [place] Diabetes mellitus (HCC) History of acute myocardial infarction HTN (hypertension) Hypercholesteremia Hypothyroidism PAST SURGICAL HISTORY Procedure Laterality Date ANGIOPLASTY 2011 [facility] STENT COLONOSCOPY 2009 [place] ARTHROSCOPY/SURGERY 2000 loose body removal lt HAND SURGERY HX Left 2022 KNEE ARTHROSCOPY/SURGERY 1984 loose body removal lt OSTEOTOMY FIBULA Left 1980 PAST SURGICAL HISTORY OF 1988 Rt wrist bone graft PAST SURGICAL HISTORY OF R navicular REPAIR INGUINAL HERNIA 1986 REPAIR NASAL SEPTUM DEFECT 1996 THYROIDECTOMY SUBTOTAL/PARTIAL 2008 TONSILLECTOMY PRIMARY/SECONDARY <AGE 10 Tonsillectomy Social History Tobacco Use Smoking status: Every Day Current packs/day: 0.50 Average packs/day: 0.5 packs/day for 40.5 years (20.2 ttl pk-yrs) Types: Cigarettes Start date: 04/21/2023 Smokeless tobacco: Never Vaping Use Vaping status: Never Used Substance Use Topics Alcohol use: No Drug use: No FAMILY HISTORY Problem Relation Age of Onset Cancer Mother uterine other (depression) Maternal Grandmother ALLERGIES Allergen Reactions Amoxicillin-Pot Cla* Anaphylaxis, Swelling Metformin Diarrhea Lisinopril Cough Sulfamethoxazole-Tr* Rash, Hives, Swelling Current Outpatient Medications Medication Sig albuterol HFA (PROVENTIL HFA, VENTOLIN HFA) 90 mcg/actuation inhaler Inhale 2 Puffs as instructed every 4 hours as needed for wheezing/shortness of breath. empagliflozin (JARDIANCE) 10 mg tablet Take 1 tablet by mouth daily with breakfast. metFORMIN (GLUCOPHAGE) 1,000 mg tablet Take 1 tablet by mouth two times a day. levothyroxine (SYNTHROID) 125 mcg tablet Take 1 tablet by mouth daily before breakfast. metoprolol succinate ER (TOPROL XL) 25 mg 24 hr tablet Take 1 tablet by mouth once daily. dulaglutide (TRULICITY) 0.75 mg/0.5 mL pen injector Inject 0.75 mg subcutaneously one time a week. Monitor bs closely and keep food log insulin glargine 100 unit/mL (3 mL) Inject 20 Units subcutaneously daily at bedtime. Inject 20 Units subcutaneously as directed mirtazapine (REMERON) 15 mg tablet Take 1 tablet by mouth daily at bedtime. traZODone (DESYREL) 100 mg tablet Take 1 tablet by mouth daily at bedtime. rosuvastatin (CRESTOR) 10 mg tablet Take 1 tablet by mouth daily at bedtime. spironolactone (ALDACTONE) 25 mg tablet Take 1 tablet by mouth once daily. sacubitril-valsartan (ENTRESTO) 24-26 mg tablet Take 1 tablet by mouth two times a day. magnesium, aluminum hydroxide (MYLANTA ORAL) Take 5 mL by mouth two times a day as needed (heartburn). nystatin (MYCOSTATIN) 100,000 unit/mL suspension Take 100,000 Units by mouth four times daily. Swish and swallow. 5 ml 4times daily iv contrast (will be provided with radiology test) Inject 1 Each intravenously one time only for [address] Neck W IVCON No IV access, insert saline lock prior to the sedation, infusion, injection for imaging exam. Discontinue saline lock post exam. If Pt. has a central line or IVAD, may access foradministration according to line specific nursing protocol. Once exam is complete flush line and de-access according to line specific nursing protocol in the CT contrast administration guidelines link. Insulin Syringe-Needle U-100 0.5 mL 31 gauge x 5/16 Inject 1 Each subcutaneously every 24 hours. Give with each insulin administration. Insulin Whitman, Disposable, (PEN NEEDLE) 32 gauge x 5/32 Inject 1 Each subcutaneously every 24 hours. Give with each insulin administration. aspirin, enteric coated (ADULT LOW DOSE ASPIRIN) 81 mg EC tablet Take 1 tablet by mouth once daily. ASA/acetaminophen/caffeine/pot (GOODY'S HEADACHE POWDER ORAL) Take 1 Packet by mouth as needed (headaches). furosemide (LASIX) 40 mg tablet Take 1 tablet by mouth once daily. Patient should start on March. (Patient not taking: Reported on 10/18/2024) No current facility-administered medications for this visit. REVIEW OF SYSTEMS PAIN ASSESSMENT: Negative for pain, history of chronic pain, or current treatment for a chronic pain condition. GENERAL: No weight loss, malaise or fevers NECK: Positive for mass RESPIRATORY: Negative for cough, hemoptysis, wheezing, COPD, dyspnea or shortness of breath CARDIOVASCULAR: [place] GI: No nausea, vomiting, or diarrhea : No history of dysuria, frequency or incontinence MUSCULOSKELETAL: Negative for joint pain or swelling, back pain or muscle pain HEMATOLOGY/LYMPHOLOGY: Negative for prolonged bleeding, bruising easily or swollen nodes ENDOCRINE: Negative for cold or heat intolerance, polyuria, polydipsia and goiter PHYSICAL EXAM: BP 164/124[Manual 155 110[ Pulse 83 Resp 24 Ht 5' 7 (1.70m) Wt 292 lb (132.5kg) SpO2 96% BMI 45.72 kg/(m^2). General Appearance: Well appearing, alert, in no acute distress, well-hydrated, well nourished. andMorbidly obese. Neck: Left posterior neck mass, 4cm in size. Smooth Assessment: Neck mass (primary encounter diagnosis) Coronary artery disease involving [place] coronary artery of [place] heart without angina pectoris S/p coronary artery stent placement Primary hypertension Class 3 severe obesity due to excess calories with serious comorbidity and body mass index (bmi) of45.0 to 49.9 in adult ([facility]) Plan: ASSESSMENT/PLAN: 1. Neck mass - ICD9: 784.2, ICD10: R22.1 (primary diagnosis) I recommend getting a CT of the neck to better characterize the lesion. He is agreeable. - CT NECK SOFT TISSUE W IVCON - CREATININE BLD 2. Coronary artery disease involving [place] coronary artery of [place] heart without angina pectoris- ICD9: 414.01, ICD10: I25.10 3. S/P coronary artery stent placement - ICD9: V45.82, ICD10: Z95.5 4. Primary hypertension - ICD9: 401.9, ICD10: I10 5. Class 3 severe obesity due to excess calories with serious comorbidity and body mass index (BMI)of 45.0 to 49.9 in adult (HCC) - ICD9: 278.01, V85.42, ICD10: E66.813, Z68.42, E66.01 Stable Medical Decision Making: Problems: Moderate: New problem with uncertain prognosis Data: Unique test result(s) reviewed: 1 Unique test(s) ordered: 1 Risk: Low: Low risk from testing/treatment Medical Decision Making Level: 3 - Low Inder Bruce M.D., F.A.C.S. [facility] Tele[facility] encounter Note * Telephone Encounter - Bakari Dumont - 10/14/2024 8:37 AM EST Referral placed in portal Confirmation number: [id number] Patient has been made aware and will call to get scheduled. Bakari Dumont Housekeeping Worker I October 14, 2024 8:37 AM [facility]01-24-2025 Miscellaneous Notes* Telephone Encounter - Bakari Dumont - 10/14/2024 8:37 AM EST Referral placed in portal Confirmation number: [id number] Patient has been made aware and will call to get scheduled. Bakari Dumont Housekeeping Worker I October 14, 2024 8:37 AM * Telephone Encounter - Gavin Betancur DO - 10/13/2024 10:13 PM EST Consult placed to general surgery for possible surgical removal of neck lipoma. * Telephone Encounter - Miky العراقي - 10/11/2024 8:49 AM EST Patient called requesting a referral to a specialist for the large bump on the back on his neck. Patient states he has imaging in October last year and it is still bothering him. Miky العراقي, Housekeeping Worker October 11, 2024 8:52 AM documented in [facility] encounterGu[facility]01-[facility] Telephone encounter Note * Telephone Encounter - Gavin Betancur DO - 10/13/2024 10:13 PM EST Consult placed to general surgery for possible surgical removal of neck lipoma. [facility]01-23-[facility] Telephone encounter Note* Telephone Encounter - Jelena Oleary - 10/13/2024 3:43 PM EST Faxed Diagnosis verification letter To [facility] on 10/13/24 - Attn Leeann ph [phone] Scanned fax confirmation into epic on 10/13/24 Jelena Oleary October 13, 2024 3:50 PM [facility]01-23-2025 Miscellaneous Notes* Telephone Encounter - Jelena Oleary - 10/13/2024 3:43 PM EST Faxed Diagnosis verification letter To [facility] on 10/13/24 - Attn Leeann ph [phone] Scanned fax confirmation into epic on 10/13/24 Jelena Oleary October 13, 2024 3:50 PM documented in this encounterGu[facility]01-22-2025 Telephone encounter Note * Telephone Encounter - Jelena Oleary - 10/12/2024 3:22 PM EST I called Leeann back on 10/12/24 3pm - let her know I received the release of records I scanned both forms into [employer] - we have release from [facility] to [facility] and release to Clinic form I also called Venkat back- and spoke with him on 10/12/24 explained I don't need to send him our release of record form I received the proper one from Leeann I put form to be completed into Dr Fong mailbox today - there is an extra blank copy scanned into [employer] Oleary October 12, 2024 3:27 PM [facility]01-22-20[facility] Miscellaneous Notes* Telephone Encounter - Anirudh Jelena - 10/12/2024 3:22 PM EST I called Leeann back on 10/12/24 3pm - let her know I received the release of records I scanned both forms into [employer] - we have release from [facility] to [facility] and release to Clinic form I also called Venkat back- and spoke with him on 10/12/24 explained I don't need to send him our release of record form I received the proper one from Leeann I put form to be completed into Dr Fong mailbox today - there is an extra blank copy scanned into [employer] Oleary October 12, 2024 3:27 PM * Telephone Encounter - Lashanda Olearykki - 10/12/2024 11:42 AM EST Continued encounter from 10/07/24 - Leeann called again & I confirmed with Leeann that we received the document she would like Dr Fong to complete- I noticed that we don't have a release of records form from our patient . I calledWolfise on 10/12/24 at 11:40 am and left a detailed message - we need written permission to release records to Sasha Tomlinson. Please call back ( I still need [facility] address phone number - etc I think I antoine ve Leeann cell #) Does she want progress notes regarding patient or just 1 pg diagnosis form completed. I also called and spoke to patient on 10/12/24 At 11:30 am he thought Sasha Tomlinson already took care of this (release) I told Venkat I will upload Release of Record form into [employer] for him to print out and sign thisafternoon if I don't hear back from Leeann at Annemarie Oleary October 12, 2024 12:04 PM documented in this encounterGuern[facility]01-22-2025 NoteHNO ID: [id number] Author: SANDRA ARITA, ? Service: ? Author Type: ? Type: Progress Notes Filed: 10/12/2024 13:16 Note Text: [facility] POPULATION HEALTH NAVIGATION OUTREACH Action/FYI [facility] 04-15-2024 UPLOADED [facility] 04-27-2024 Patient Identified by Name and : Yes, via EPIC - no outreach needed Reason for Outreach Care Gap or Scheduling Wellness Visits Care Gap Reviewed:: [facility] Outreach Outcome/Action Population Health Navigation Workflow Cute PDF and Portal Submission Payer: [employer] Navigation Signature: Sandra Arita October 12, 2024 1:15 [facility]01-22-2025 History of Present illness Narrative* Sandra Arita - 10/12/2024 1:15 PM EST [facility] POPULATION HEALTH NAVIGATION OUTREACH Action/FYI [facility] 04-15-2024 UPLOADED [facility] 04-27-2024 Patient Identified by Name and : Yes, via EPIC - no outreach needed Reason for Outreach Care Gap or Scheduling Wellness Visits Care Gap Reviewed:: [facility] Outreach Outcome/Action Population Health Navigation Workflow Cute PDF and Portal Submission Payer: [employer] Navigation Signature: Sandra Arita October 12, 2024 1:15 PM documented in this encounterGuernsey [facility]01-22-2025 Telephone encounter Note * Telephone Encounter - OlearyAgatai - 10/12/2024 11:42 AM EST Continued encounter from 10/07/24 - Leeann called again & I confirmed with Leeann that we received the document she would like Dr Fong to complete- I noticed that we don't have a release of records form from our patient . I calledWolfise on 10/12/24 at 11:40 am and left a detailed message - we need written permission to release records to Sasha Tomlinson. Please call back ( [facility] etc I think I antoine ve Leeann cell #) Does she want progress notes regarding patient or just 1 pg diagnosis form completed. I also called and spoke to patient on 10/12/24 At 11:30 am he thought Sasha Tomlinson already took care of this (release) I told Venkat I will upload Release of Record form into [employer] for him to print out and sign thisafternoon if I don't hear back from Leeann at Annemarie Oleary October 12, 2024 12:04 PM [facility]01-22-[facility] NotePatient Outreach (AGACM) VENKAT MARSH ([id number]) 1965 M Date Time Provider Department 10/12/24 SANDRA ARITA [facility] During your visit today, we recorded the following information about you: Sandra Arita 10/12/2024 1:16 PM Signed [facility] POPULATION HEALTH NAVIGATION OUTREACH Action/FYI [facility] 04-15-2024 UPLOADED [facility]OSP [facility] 04-27-2024 Patient Identified by Name and : Yes, via EPIC - no outreach needed Reason for Outreach Care Gap or Scheduling Wellness Visits Care Gap Reviewed:: [facility] Outreach Outcome/Action Population Health Navigation Workflow Cute PDF and Portal Submission Payer: [employer] Navigation Signature: Sandra Arita October 12, 2024 1:15 PM Allergies As of Date: 10/12/2024 Noted Allergy Reaction AMOXICILLIN-POT CLAVULANATE 12/23/2023 10 - Anaphylaxis 7 - Swelling METFORMIN 04/26/2023 6 - Diarrhea LISINOPRIL 04/24/2023 3 - Cough SULFAMETHOXAZOLE-TRIMETHOPRIM 10/20/2009 2 - Rash 4 - Hives 7 - Swelling Date Reviewed: 04/27/2024 Reviewed by: Cristobal Ames RN - Fully Assessed Reason for Visit: Population Health Navigation Outreach [3910] Cmt: [employer] Attributed Member- Chart Review Prescriptions as of 10/12/2024 - albuterol HFA (PROVENTIL HFA, VENTOLIN HFA) 90 mcg/actuation inhaler Inhale 2 Puffs as instructed every 4 hours as needed for wheezing/shortness of breath. - Insulin Syringe-Needle U-100 0.5 mL 31 gauge x 5/16 Inject 1 Each subcutaneously every 24 hours. Give with each insulin administration. - empagliflozin (JARDIANCE) 10 mg tablet Take 1 tablet by mouth daily with breakfast. - metFORMIN (GLUCOPHAGE) 1,000 mg tablet Take 1 tablet by mouth two times a day. - levothyroxine (SYNTHROID) 125 mcg tablet Take 1 tablet by mouth daily before breakfast. - metoprolol succinate ER (TOPROL XL) 25 mg 24 hr tablet Take 1 tablet by mouth once daily. - Insulin Whitman, Disposable, (PEN NEEDLE) 32 gauge x 5/32 Inject 1 Each subcutaneously every 24 hours. Give with each insulin administration. - dulaglutide (TRULICITY) 0.75 mg/0.5 mL pen injector Inject 0.75 mg subcutaneously one time a week. Monitor bs closely and keep food log - insulin glargine 100 unit/mL (3 mL) Inject 20 Units subcutaneously daily at bedtime. Inject 20 Units subcutaneously as directed - mirtazapine (REMERON) 15 mg tablet Take 1 tablet by mouth daily at bedtime. - traZODone (DESYREL) 100 mg tablet Take 1 tablet by mouth daily at bedtime. - rosuvastatin (CRESTOR) 10 mg tablet Take 1 tablet by mouth daily at bedtime. - spironolactone (ALDACTONE) 25 mg tablet Take 1 tablet by mouth once daily. - aspirin, enteric coated (ADULT LOW DOSE ASPIRIN) 81 mg EC tablet Take 1 tablet by mouth once daily. - ASA/acetaminophen/caffeine/pot (GOODY'S HEADACHE POWDER ORAL) Take 1 Packet by mouth as needed (headaches). - sacubitril-valsartan (ENTRESTO) 24-26 mg tablet Take 1 tablet by mouth two times a day. - furosemide (LASIX) 40 mg tablet Take 1 tablet by mouth once daily. Patient should start on April 16, 2024. - magnesium, aluminum hydroxide (MYLANTA ORAL) Take 5 mL by mouth two times a day as needed (heartburn). - nystatin (MYCOSTATIN) 100,000 unit/mL suspension Take 100,000 Units by mouth four times daily. Swish and swallow. 5 ml 4times daily Meds Comments as of 10/23/2023: 10/23/23 The medications are managed by this patient by: PATIENT Calixto Bhavya, OA Problem List As Of Date 10/12/2024 Noted Resolved CAD (coronary artery disease) [I25.10] 09/04/2014 S/P coronary artery stent placement [Z95.5] 09/04/2014 Left bundle branch block (LBBB) on electrocardi*09/04/2014 H/O myocardial infarction, greater than 8 weeks*09/04/2014 Tobacco abuse [Z72.0] 09/04/2014 Obesity [E66.9] 09/04/2014 Status post insertion of drug-eluting stent int*11/17/2016 Non morbid obesity due to excess calories [E66.*11/17/2016 Obesity, Class III, BMI >= 40 [E66.01] 05/11/2023 Hypercholesteremia [E78.00] HTN (hypertension) [I10] Schizoaffective disorder, bipolar type ([facility]) [F*09/10/2023 11/02/2023 Cocaine dependence in remission ([facility]) [F14.21] 09/10/2023 Hypothyroidism [E03.9] Diabetes mellitus ([facility]) [E11.9] Cataract, nuclear sclerotic, both eyes [H25.13] 10/23/2023 Hyperopia of both eyes [H52.03] 10/23/2023 Regular astigmatism of both eyes [H52.223] 10/23/2023 Presbyopia of both eyes [H52.4] 10/23/2023 Mood disorder ([facility]) [F39] 11/02/2023 Acute systolic HF (heart failure) ([facility]) [I50.21]04/13/2024 Acute on chronic systolic (congestive) heart fa*04/13/2024 04/15/2024 Atrial fib/flutter, transient (HCC) [I48.91, I4*04/14/2024 Mixed hyperlipidemia [E78.2] 04/14/2024 Morbid obesity (HCC) [E66.01] 04/14/2024 Essential hypertension [I10] 04/14/2024 Chronic HFrEF (heart failure with reduced eject*04/14/2024 Typical atrial flutter (HCC) [I48.3] 04/15/2024 Enc (more content not included)...[facility]01-21-[facility] Telephone encounter Note* Telephone Encounter - Deidre CarrenoJHON - 10/11/2024 1:27 PM EST Last Office Visit Date: 04/11/2024 Last [facility] [place] [facility] Visit: 04/19/2024 Has the patient had an appointment at [facility] in the past year, or do they have an upcoming appointment scheduled at [facility]? YES- Continue with refill request. Future Appointment: 10/11/2024 Patient [employer] message requesting the following refill Refill(s) Requested: Requested Prescriptions Pending Prescriptions Disp Refills albuterol HFA (PROVENTIL HFA, VENTOLIN HFA) 90 mcg/actuation inhaler 6.7 g 0 Sig: Inhale 2 Puffs as instructed every 4 hours as needed for wheezing/shortness of breath. Insulin Syringe-Needle U-100 0.5 mL 31 gauge x 5/16 100 Each 0 Sig: Inject 1 Each subcutaneously every 24 hours. Give with each insulin administration. empagliflozin (JARDIANCE) 10 mg tablet 90 tablet 0 Sig: Take 1 tablet by mouth daily with breakfast. metFORMIN (GLUCOPHAGE) 1,000 mg tablet 180 tablet 0 Sig: Take 1 tablet by mouth two times a day. levothyroxine (SYNTHROID) 125 mcg tablet 90 tablet 0 Sig: Take 1 tablet by mouth daily before breakfast. metoprolol succinate ER (TOPROL XL) 25 mg 24 hr tablet 30 tablet 2 Sig: Take 1 tablet by mouth once daily. Insulin Whitman, Disposable, (PEN NEEDLE) 32 gauge x 5/32 100 Each 1 Sig: Inject 1 Each subcutaneously every 24 hours. Give with each insulin administration. dulaglutide (TRULICITY) 0.75 mg/0.5 mL pen injector 6 mL 0 Sig: Inject 0.75 mg subcutaneously one time a week. Monitor bs closely and keep food log insulin glargine 100 unit/mL (3 mL) 3 mL 2 Sig: Inject 20 Units subcutaneously daily at bedtime. Inject 20 Units subcutaneously as directed Refused Prescriptions Disp Refills rosuvastatin (CRESTOR) 10 mg tablet 90 tablet 3 Sig: Take 1 tablet by mouth daily at bedtime. ALLERGIES Allergen Reactions Amoxicillin-Pot Cla* Anaphylaxis, Swelling Metformin Diarrhea Lisinopril Cough Sulfamethoxazole-Tr* Rash, Hives, Swelling (home) [phone] (cell) The patients preferred pharmacy has been captured for this encounter? yes Request is for script(s) to be escript to pharmacy. Deidre Carreno LPN [facility]01-21-2025 Miscellaneous Notes* Telephone Encounter - Deidre Carreno LPN - 10/11/2024 1:27 PM EST Last Office Visit Date: 04/11/2024 Last [facility] [place] [facility] Visit: 04/19/2024 Has the patient had an appointment at [facility] in the past year, or do they have an upcoming appointment scheduled at [facility]? YES- Continue with refill request. Future Appointment: 10/11/2024 Patient Cuikerhart message requesting the following refill Refill(s) Requested: Requested Prescriptions Pending Prescriptions Disp Refills albuterol HFA (PROVENTIL HFA, VENTOLIN HFA) 90 mcg/actuation inhaler 6.7 g 0 Sig: Inhale 2 Puffs as instructed every 4 hours as needed for wheezing/shortness of breath. Insulin Syringe-Needle U-100 0.5 mL 31 gauge x 5/16 100 Each 0 Sig: Inject 1 Each subcutaneously every 24 hours. Give with each insulin administration. empagliflozin (JARDIANCE) 10 mg tablet 90 tablet 0 Sig: Take 1 tablet by mouth daily with breakfast. metFORMIN (GLUCOPHAGE) 1,000 mg tablet 180 tablet 0 Sig: Take 1 tablet by mouth two times a day. levothyroxine (SYNTHROID) 125 mcg tablet 90 tablet 0 Sig: Take 1 tablet by mouth daily before breakfast. metoprolol succinate ER (TOPROL XL) 25 mg 24 hr tablet 30 tablet 2 Sig: Take 1 tablet by mouth once daily. Insulin Whitman, Disposable, (PEN NEEDLE) 32 gauge x 5/32 100 Each 1 Sig: Inject 1 Each subcutaneously every 24 hours. Give with each insulin administration. dulaglutide (TRULICITY) 0.75 mg/0.5 mL pen injector 6 mL 0 Sig: Inject 0.75 mg subcutaneously one time a week. Monitor bs closely and keep food log insulin glargine 100 unit/mL (3 mL) 3 mL 2 Sig: Inject 20 Units subcutaneously daily at bedtime. Inject 20 Units subcutaneously as directed Refused Prescriptions Disp Refills rosuvastatin (CRESTOR) 10 mg tablet 90 tablet 3 Sig: Take 1 tablet by mouth daily at bedtime. ALLERGIES Allergen Reactions Amoxicillin-Pot Cla* Anaphylaxis, Swelling Metformin Diarrhea Lisinopril Cough Sulfamethoxazole-Tr* Rash, Hives, Swelling (home) [phone] (cell) The patients preferred pharmacy has been captured for this encounter? yes Request is for script(s) to be escript to pharmacy. Deidre Carreno LPN documented [facility] encounterGu[facility]01[facility] Telephone encounter Note * Telephone Encounter - Vy Joseph RN - 10/11/2024 10:14 AM EST Patient's request for medication is as follows: Requested Prescriptions Refused Prescriptions Disp Refills spironolactone (ALDACTONE) 25 mg tablet 90 tablet 0 Sig: Take 1 tablet by mouth once daily. Prescription(s) as above. Please process accordingly. Vy Joseph RN [facility]01-21-2025 Miscellaneous Notes* Telephone Encounter - Vy Joseph RN - 10/11/2024 10:14 AM EST Patient's request for medication is as follows: Requested Prescriptions Refused Prescriptions Disp Refills spironolactone (ALDACTONE) 25 mg tablet 90 tablet 0 Sig: Take 1 tablet by mouth once daily. Prescription(s) as above. Please process accordingly. Vy Joseph RN documented in this encounterGuernsey [facility] Hospital01-21-2025 Telephone encounter Note * Telephone Encounter - Miky العراقي - 10/11/2024 8:49 AM EST Patient called requesting a referral to a specialist for the large bump on the back on his neck. Patient states he has imaging in October last year and it is still bothering him. Miky العراقي, Housekeeping Worker October 11, 2024 8:52 AM [facility]01-21-2025 NotePatient Outreach (INTMMN) VENKAT MARSH ([id number]) 1965 M Date Time Provider Department 10/11/24 DUNCAN CRAVEN INTMMN During your visit today, we recorded the following information about you: Allergies As of Date: 10/11/2024 Noted Allergy Reaction AMOXICILLIN-POT CLAVULANATE 12/23/2023 10 - Anaphylaxis 7 - Swelling METFORMIN 04/26/2023 6 - Diarrhea LISINOPRIL 04/24/2023 3 - Cough SULFAMETHOXAZOLE-TRIMETHOPRIM 10/20/2009 2 - Rash 4 - Hives 7 - Swelling Date Reviewed: 04/27/2024 Reviewed by: Cristobal Ames RN - Fully Assessed Visit Diagnosis:Mixed hyperlipidemia [E78.2] Order(s):LIPID PANEL BASIC [SQLIPB] Order #: [id number] FUTURE Prescriptions as of 10/14/2024 - albuterol HFA (PROVENTIL HFA, VENTOLIN HFA) 90 mcg/actuation inhaler Inhale 2 Puffs as instructed every 4 hours as needed for wheezing/shortness of breath. - Insulin Syringe-Needle U-100 0.5 mL 31 gauge x 5/16 Inject 1 Each subcutaneously every 24 hours. Give with each insulin administration. - empagliflozin (JARDIANCE) 10 mg tablet Take 1 tablet by mouth daily with breakfast. - metFORMIN (GLUCOPHAGE) 1,000 mg tablet Take 1 tablet by mouth two times a day. - levothyroxine (SYNTHROID) 125 mcg tablet Take 1 tablet by mouth daily before breakfast. - metoprolol succinate ER (TOPROL XL) 25 mg 24 hr tablet Take 1 tablet by mouth once daily. - Insulin Whitman, Disposable, (PEN NEEDLE) 32 gauge x 5/32 Inject 1 Each subcutaneously every 24 hours. Give with each insulin administration. - dulaglutide (TRULICITY) 0.75 mg/0.5 mL pen injector Inject 0.75 mg subcutaneously one time a week. Monitor bs closely and keep food log - insulin glargine 100 unit/mL (3 mL) Inject 20 Units subcutaneously daily at bedtime. Inject 20 Units subcutaneously as directed - mirtazapine (REMERON) 15 mg tablet Take 1 tablet by mouth daily at bedtime. - traZODone (DESYREL) 100 mg tablet Take 1 tablet by mouth daily at bedtime. - rosuvastatin (CRESTOR) 10 mg tablet Take 1 tablet by mouth daily at bedtime. - spironolactone (ALDACTONE) 25 mg tablet Take 1 tablet by mouth once daily. - aspirin, enteric coated (ADULT LOW DOSE ASPIRIN) 81 mg EC tablet Take 1 tablet by mouth once daily. - ASA/acetaminophen/caffeine/pot (GOODY'S HEADACHE POWDER ORAL) Take 1 Packet by mouth as needed (headaches). - sacubitril-valsartan (ENTRESTO) 24-26 mg tablet Take 1 tablet by mouth two times a day. - furosemide (LASIX) 40 mg tablet Take 1 tablet by mouth once daily. Patient should start on April 16, 2024. - magnesium, aluminum hydroxide (MYLANTA ORAL) Take 5 mL by mouth two times a day as needed (heartburn). - nystatin (MYCOSTATIN) 100,000 unit/mL suspension Take 100,000 Units by mouth four times daily. Swish and swallow. 5 ml 4times daily Meds Comments as of 10/23/2023: 10/23/23 The medications are managed by this patient by: PATIENT Calixto Ochs, OA Problem List As Of Date 10/11/2024 Noted Resolved CAD (coronary artery disease) [I25.10] 09/04/2014 S/P coronary artery stent placement [Z95.5] 09/04/2014 Left bundle branch block (LBBB) on electrocardi*09/04/2014 H/O myocardial infarction, greater than 8 weeks*09/04/2014 Tobacco abuse [Z72.0] 09/04/2014 Obesity [E66.9] 09/04/2014 Status post insertion of drug-eluting stent int*11/17/2016 Non morbid obesity due to excess calories [E66.*11/17/2016 Obesity, Class III, BMI >= 40 [E66.01] 05/11/2023 Hypercholesteremia [E78.00] HTN (hypertension) [I10] Schizoaffective disorder, bipolar type (HCC) [F*09/10/2023 11/02/2023 Cocaine dependence in remission (HCC) [F14.21] 09/10/2023 Hypothyroidism [E03.9] Diabetes mellitus (HCC) [E11.9] Cataract, nuclear sclerotic, both eyes [H25.13] 10/23/2023 Hyperopia of both eyes [H52.03] 10/23/2023 Regular astigmatism of both eyes [H52.223] 10/23/2023 Presbyopia of both eyes [H52.4] 10/23/2023 Mood disorder (HCC) [F39] 11/02/2023 Acute systolic HF (heart failure) (HCC) [I50.21]04/13/2024 Acute on chronic systolic (congestive) heart fa*04/13/2024 04/15/2024 Atrial fib/flutter, transient (HCC) [I48.91, I4*04/14/2024 Mixed hyperlipidemia [E78.2] 04/14/2024 Morbid obesity (HCC) [E66.01] 04/14/2024 Essential hypertension [I10] 04/14/2024 Chronic HFrEF (heart failure with reduced eject*04/14/2024 Typical atrial flutter (HCC) [I48.3] 04/15/2024 Encounter Status:Closed by GIL CAROLINA on 10/14/24[facility] 10-07-2024 Telephone encounter Note* Telephone Encounter - Oleary Jelena - 10/07/2024 10:29 AM EST Leeann (Recovery Mgr) from [facility] [phone] Called on 10/07/24 left a message on voicemail Asking if we received a fax from her She needs diagnostic confirmation sheet completed - I explained usually a 48-72 response time-she had the wrong fax number - I gave her the correct fax number- she will re-fax Jelena Oleary October 07, 2024 10:36 AM [facility]01-17-2025 Miscellaneous Notes* Telephone Encounter - [place] Jelena - 10/07/2024 10:29 AM EST Leeann (Recovery Mgr) from [facility] [phone] Called on 10/07/24 left a message on voicemail Asking if we received a fax from her She needs diagnostic confirmation sheet completed - I explained usually a 48-72 response time-she had the wrong fax number - I gave her the correct fax number- she will re-fax Jelena Oleary October 07, 2024 10:36 AM documented in this encounterGuernsey [facility] Hospital01-14-2025 Telephone encounter Note * Telephone Encounter - Jleena Oleary - 10/04/2024 10:16 AM EST No Show Documentation Venkat Marsh no showed for an appointment on 10/04/24 with Yuliet Fong DO at 1pm. He was scheduled for f/u. I called and spoke with the patient regarding his missed appointment. Venkat stated the reason that he missed his appointment was because illness. & he doesn't feel like driving Resources discussed/offered to patient: n/a No show determined to be fault of patient: Yes This is the patients first no show in the last 12 months. Patient was rescheduled for he will call to reschedule. Letter mailed : Yes Is this the Third or Fourth No Show? No Jelena Oleary October 04, 2024 10:17 AM [facility]01-14-2025 Miscellaneous Notes* Telephone Encounter - Jelena Oleary - 10/04/2024 10:16 AM EST No Show Documentation Venkat Marsh no showed for an appointment on 10/04/24 with Yuliet Fong DO at 1pm. He was scheduled for f/u. I called and spoke with the patient regarding his missed appointment. Venkat stated the reason that he missed his appointment was because illness. & he doesn't feel like driving Resources discussed/offered to patient: n/a No show determined to be fault of patient: Yes This is the patients first no show in the last 12 months. Patient was rescheduled for he will call to reschedule. Letter mailed : Yes Is this the Third or Fourth No Show? No Jelena Oleary October 04, 2024 10:17 AM documented in this encounterGuernsey [facility] Hospital12-16-2024 Telephone encounter Note * Telephone Encounter - Homa Desai - 09/05/2024 9:33 AM EST Patient called requesting the following refill Refill(s) Requested: Requested Prescriptions Pending Prescriptions Disp Refills mirtazapine (REMERON) 15 mg tablet 30 tablet 2 Sig: Take 1 tablet by mouth daily at bedtime. traZODone (DESYREL) 100 mg tablet Sig: Take 1 tablet by mouth daily at bedtime. ALLERGIES Allergen Reactions Amoxicillin-Pot Cla* Anaphylaxis, Swelling Metformin Diarrhea Lisinopril Cough Sulfamethoxazole-Tr* Rash, Hives, Swelling (home) [phone] (cell) Last Office Visit Date: 02/03/2024 Last [facility] Visit: Visit date not found Future Appointment: Visit date not found The patients preferred pharmacy has been captured for this encounter? yes [facility] [address] - [place] [address] - [address] - [phone] [address] [facility] [id number] Request is for script(s) to be escript to pharmacy. Homa Desai [facility]12-16-2024 Miscellaneous Notes* Telephone Encounter - Homa Desai - 09/05/2024 9:33 AM EST Patient called requesting the following refill Refill(s) Requested: Requested Prescriptions Pending Prescriptions Disp Refills mirtazapine (REMERON) 15 mg tablet 30 tablet 2 Sig: Take 1 tablet by mouth daily at bedtime. traZODone (DESYREL) 100 mg tablet Sig: Take 1 tablet by mouth daily at bedtime. ALLERGIES Allergen Reactions Amoxicillin-Pot Cla* Anaphylaxis, Swelling Metformin Diarrhea Lisinopril Cough Sulfamethoxazole-Tr* Rash, Hives, Swelling (home) [phone] (cell) Last Office Visit Date: 02/03/2024 Last [facility] [place] [facility] Visit: Visit date not found Future Appointment: Visit date not found The patients preferred pharmacy has been captured for this encounter? yes [address] - [place] [address] - [address] - [phone] [address] [facility] [id number] Request is for script(s) to be escript to pharmacy. Homa Desai documented in this encounterGuernsey Memorial Hospital11-11-2024 Telephone encounter Note * Telephone Encounter - Sharon Ponce RPh - 08/01/2024 11:51 AM EST Spoke with patient and counseled that insulin should not be frozen and that he should not use as itis likely not going to be effect. Discussed with patient on the phone who read back instructions and verbalized understanding. Sharon Ponce RPh [facility] Work Phone: [phone] Miscellaneous Notes* Telephone Encounter - Sharon Ponce RPh - 08/01/2024 11:51 AM EST Spoke with patient and counseled that insulin should not be frozen and that he should not use as itis likely not going to be effect. Discussed with patient on the phone who read back instructions and verbalized understanding. Sharon Ponce RPh * Telephone Encounter - Bakari Dumont - 08/01/2024 11:47 AM EST Called patient to find out if he was taking his insulin regularly. Patient stated he was but he hadquestions regarding his insulin that was frozen and if he used it what would happen. Patient stated he has been taking his insulin once a week. Transferred patient over to Pharm D to answer his questions. Bakari Dumont Housekeeping Worker I August 01, 2024 11:48 AM * Telephone Encounter - Gavin Betancur DO - 07/29/2024 4:51 PM EST Hi, can we clarify if the patient is taking his insulin regularly? As far as I can tell, there havebeen no recent updates to the patient's insulin orders, so if he had a pen previously, he should have received another pen. I can send a new order now, but will also consult diabetes education for further help. * Telephone Encounter - Bakari Dumont - 07/25/2024 4:06 PM EST Patient called in stating his insulin froze in the fridge patient is unsure if he can use it. Also said when he picked up his insulin he thought it was suppose to be the pen not the vial he not sure of how to use them. Patient would like a call back with an update. Bakari Dumont Housekeeping Worker I July 25, 2024 4:09 PM documented in this encounterGuernsey Memorial Hospital11-11-2024 Telephone encounter Note * Telephone Encounter - Bakari Dumont - 08/01/2024 11:47 AM EST Called patient to find out if he was taking his insulin regularly. Patient stated he was but he hadquestions regarding his insulin that was frozen and if he used it what would happen. Patient stated he has been taking his insulin once a week. Transferred patient over to Pharm D to answer his questions. Bakari Dumont Housekeeping Worker I August 01, 2024 11:48 AM [facility]11-08-2024 Telephone encounter Note* Telephone Encounter - Gavin Betancur DO - 07/29/2024 4:51 PM EST Hi, can we clarify if the patient is taking his insulin regularly? As far as I can tell, there havebeen no recent updates to the patient's insulin orders, so if he had a pen previously, he should have received another pen. I can send a new order now, but will also consult diabetes education for further help. [facility]11-04-2024 Telephone encounter Note* Telephone Encounter - Bakari Dumont - 07/25/2024 4:09 PM EST Last Office Visit Date: 04/11/2024 Last [facility] [place] [facility] Visit: 04/19/2024 Has the patient had an appointment at [facility] in the past year, or do they have an upcoming appointment scheduled at [facility]? YES- Continue with refill request. Future Appointment: Visit date not found Patient called requesting the following refill Refill(s) Requested: Requested Prescriptions Pending Prescriptions Disp Refills metoprolol succinate ER (TOPROL XL) 25 mg 24 hr tablet 30 tablet 2 Sig: Take 1 tablet by mouth once daily. Insulin Whitman, Disposable, (PEN NEEDLE) 32 gauge x 5/32 100 Each 1 Sig: Inject 1 Each subcutaneously every 24 hours. Give with each insulin administration. dulaglutide (TRULICITY) 0.75 mg/0.5 mL pen injector 6 mL 0 Sig: Inject 0.75 mg subcutaneously one time a week. Monitor bs closely and keep food log insulin glargine 100 unit/mL (3 mL) 15 mL 1 Sig: Inject 20 Units subcutaneously once daily. ALLERGIES Allergen Reactions Amoxicillin-Pot Cla* Anaphylaxis, Swelling Metformin Diarrhea Lisinopril Cough Sulfamethoxazole-Tr* Rash, Hives, Swelling (home) [phone] (cell) The patients preferred pharmacy has been captured for this encounter? yes Request is for script(s) to be escript to pharmacy. Bakari Dumont [facility]11-04-2024 Miscellaneous Notes* Telephone Encounter - Bakari Dumont - 07/25/2024 4:09 PM EST Last Office Visit Date: 04/11/2024 Last [facility] [place] [facility] Visit: 04/19/2024 Has the patient had an appointment at [facility] in the past year, or do they have an upcoming appointment scheduled at [facility]? YES- Continue with refill request. Future Appointment: Visit date not found Patient called requesting the following refill Refill(s) Requested: Requested Prescriptions Pending Prescriptions Disp Refills metoprolol succinate ER (TOPROL XL) 25 mg 24 hr tablet 30 tablet 2 Sig: Take 1 tablet by mouth once daily. Insulin Whitman, Disposable, (PEN NEEDLE) 32 gauge x 5/32 100 Each 1 Sig: Inject 1 Each subcutaneously every 24 hours. Give with each insulin administration. dulaglutide (TRULICITY) 0.75 mg/0.5 mL pen injector 6 mL 0 Sig: Inject 0.75 mg subcutaneously one time a week. Monitor bs closely and keep food log insulin glargine 100 unit/mL (3 mL) 15 mL 1 Sig: Inject 20 Units subcutaneously once daily. ALLERGIES Allergen Reactions Amoxicillin-Pot Cla* Anaphylaxis, Swelling Metformin Diarrhea Lisinopril Cough Sulfamethoxazole-Tr* Rash, Hives, Swelling (home) [phone] (cell) The patients preferred pharmacy has been captured for this encounter? yes Request is for script(s) to be escript to pharmacy. Bakari Dumont documented in this encounterGuernsey Memorial Hospital11-04-2024 Telephone encounter Note * Telephone Encounter - Bakari Dumont - 07/25/2024 4:06 PM EST Patient called in stating his insulin froze in the fridge patient is unsure if he can use it. Also said when he picked up his insulin he thought it was suppose to be the pen not the vial he not sure of how to use them. Patient would like a call back with an update. Bakari Dumont Housekeeping Worker I July 25, 2024 4:09 PM [facility]10-31-2024 Telephone encounter Note* Telephone Encounter - Bakari Dumont - 07/21/2024 10:27 AM EDT LVM for patient to give us a call back regarding the message he left for us to give him a call. Bakari Dumont Housekeeping Worker I July 21, 2024 10:27 AM [facility]10-31-2024 Miscellaneous Notes* Telephone Encounter - Bakari Dumont - 07/21/2024 10:27 AM EDT LVM for patient to give us a call back regarding the message he left for us to give him a call. Bakari Dumnot Housekeeping Worker I July 21, 2024 10:27 AM documented in this encounterGuernsey Memorial Hospital10-24-2024 NoteHNO ID: [id number] Author: DENISE CORONADO RN Service: ? Author Type: Registered Nurse Type: Progress Notes Filed: 07/14/2024 17:13 Note Text: AG TRANSITIONAL CARE MANAGEMENT (TCM) FOLLOW-UP NOTE Provider Action/FYI: Patient identified by name and date of : YES Spoke to: N/A Diagnosis: CHF Summary: TCM follow up call, no answer. Unable to leave a message. Health leads screening tool questions performed? 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 Signature: Denise Coronado RN [facility] 14[facility] of Present illness Narrative* Denise Coronado RN - 07/14/2024 5:12 PM EDT AG TRANSITIONAL CARE MANAGEMENT (TCM) FOLLOW-UP NOTE Provider Action/FYI: Patient identified by name and date of : YES Spoke to: N/A Diagnosis: CHF Summary: TCM follow up call, no answer. Unable to leave a message. Health leads screening tool questions performed? 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 Signature: Denise Coronado RN July 14, 2024 documented in this encounterGuernsey Memorial Hospital10-24-2024 NotePatient Outreach (AGACM) VENKAT MARSH ([id number]) 1965 M Date Time Provider Department 07/14/24 DENISE CORONADO AGA During your visit today, we recorded the following information about you: Denise Coronado RN 07/14/2024 5:13 PM Signed AG TRANSITIONAL CARE MANAGEMENT (TCM) FOLLOW-UP NOTE Provider Action/FYI: Patient identified by name and date of : YES Spoke to: N/A Diagnosis: CHF Summary: TCM follow up call, no answer. Unable to leave a message. Health leads screening tool questions performed? 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 Signature: Denise Coronado RN July 14, 2024 Allergies As of Date: 07/14/2024 Noted Allergy Reaction AMOXICILLIN-POT CLAVULANATE 12/23/2023 10 - Anaphylaxis 7 - Swelling METFORMIN 04/26/2023 6 - Diarrhea LISINOPRIL 04/24/2023 3 - Cough SULFAMETHOXAZOLE-TRIMETHOPRIM 10/20/2009 2 - Rash 4 - Hives 7 - Swelling Date Reviewed: 04/27/2024 Reviewed by: Cristobal Ames RN - Fully Assessed Reason for Visit: Transition Of Care [4074] Cmt: TCM follow up call Prescriptions as of 07/14/2024 - rosuvastatin (CRESTOR) 10 mg tablet Take 1 tablet by mouth daily at bedtime. - spironolactone (ALDACTONE) 25 mg tablet Take 1 tablet by mouth once daily. - mirtazapine (REMERON) 15 mg tablet Take 1 tablet by mouth daily at bedtime. - aspirin, enteric coated (ADULT LOW DOSE ASPIRIN) 81 mg EC tablet Take 1 tablet by mouth once daily. - insulin glargine 100 unit/mL (3 mL) Inject 20 Units subcutaneously once daily. - albuterol HFA (PROVENTIL HFA, VENTOLIN HFA) 90 mcg/actuation inhaler Inhale 2 Puffs as instructed every 4 hours as needed for wheezing/shortness of breath. - Insulin Whitman, Disposable, (PEN NEEDLE) 32 gauge x 5/32 Inject 1 Each subcutaneously every 24 hours. Give with each insulin administration. - Insulin Syringe-Needle U-100 0.5 mL 31 gauge x 5/16 Inject 1 Each subcutaneously every 24 hours. Give with each insulin administration. - empagliflozin (JARDIANCE) 10 mg tablet Take 1 tablet by mouth daily with breakfast. - metFORMIN (GLUCOPHAGE) 1,000 mg tablet Take 1 tablet by mouth two times a day. - levothyroxine (SYNTHROID) 125 mcg tablet Take 1 tablet by mouth daily before breakfast. - dulaglutide (TRULICITY) 0.75 mg/0.5 mL pen injector Inject 0.75 mg subcutaneously one time a week. Monitor bs closely and keep food log - ASA/acetaminophen/caffeine/pot (GOODY'S HEADACHE POWDER ORAL) Take 1 Packet by mouth as needed (headaches). - metoprolol succinate ER (TOPROL XL) 25 mg 24 hr tablet Take 1 tablet by mouth once daily. - sacubitril-valsartan (ENTRESTO) 24-26 mg tablet Take 1 tablet by mouth two times a day. - furosemide (LASIX) 40 mg tablet Take 1 tablet by mouth once daily. Patient should start on April 16, 2024. - magnesium, aluminum hydroxide (MYLANTA ORAL) Take 5 mL by mouth two times a day as needed (heartburn). - nystatin (MYCOSTATIN) 100,000 unit/mL suspension Take 100,000 Units by mouth four times daily. Swish and swallow. 5 ml 4times daily Meds Comments as of 10/23/2023: 10/23/23 The medications are managed by this patient by: PATIENT Calixto Latif OA Problem List As Of Date 07/14/2024 Noted Resolved CAD (coronary artery disease) [I25.10] 09/04/2014 S/P coronary artery stent placement [Z95.5] 09/04/2014 Left bundle branch block (LBBB) on electrocardi*09/04/2014 H/O myocardial infarction, greater than 8 weeks*09/04/2014 Tobacco abuse [Z72.0] 09/04/2014 Obesity [E66.9] 09/04/2014 Status post insertion of drug-eluting stent int*11/17/2016 Non morbid obesity due to excess calories [E66.*11/17/2016 Obesity, Class III, BMI >= 40 [E66.01] 05/11/2023 Hypercholesteremia [E78.00] HTN (hypertension) [I10] Schizoaffective disorder, bipolar type (HCC) [F*09/10/2023 11/02/2023 Cocaine dependence in remission (HCC) [F14.21] 09/10/2023 Hypothyroidism [E03.9] Diabetes mellitus (HCC) [E11.9] Cataract, nuclear sclerotic, both eyes [H25.13] 10/23/2023 Hyperopia of both eyes [H52.03] 10/23/2023 Regular astigmatism of both eyes [H52.223] 10/23/2023 Presbyopia of both eyes [H52.4] 10/23/2023 Mood disorder (HCC) [F39] 11/02/2023 Acute systolic HF (heart failure) (HCC) [I50.21]04/13/2024 Acute on chronic systolic (congestive) heart fa*04/13/2024 04/15/2024 Atrial fib/flutter, transient (HCC) [I48.91, I4*04/14/2024 Mixed hyperlipidemia [E78.2] 04/14/2024 Morbid obesity (HCC) [E66.01] 04/14/2024 Essential hypertension [I10] 04/14/2024 Chronic HFrEF (heart failure with reduced eject*04/14/2024 Typical atrial flutter (HCC) [I48.3] 04/15/2024 Encounter Status:Closed by DENISE CORONADO on 07/14/24[facility]10-17-2024 Telephone encounter Note* Telephone Encounter - Deidre Carreno LPN - 07/07/2024 1:29 PM EDT Last Office Visit Date: 04/11/2024 Last [facility] [place] [facility] Visit: 04/19/2024 Has the patient had an appointment at [facility] in the past year, or do they have an upcoming appointment scheduled at [facility]? YES- Continue with refill request. Future Appointment: Visit date not found Patient Cuikerhart message requesting the following refill Refill(s) Requested: Requested Prescriptions Pending Prescriptions Disp Refills dulaglutide (TRULICITY) 0.75 mg/0.5 mL pen injector 6 mL 0 Sig: Inject 0.75 mg subcutaneously one time a week. Monitor bs closely and keep food log ALLERGIES Allergen Reactions Amoxicillin-Pot Cla* Anaphylaxis, Swelling Metformin Diarrhea Lisinopril Cough Sulfamethoxazole-Tr* Rash, Hives, Swelling (home) [phone] (cell) The patients preferred pharmacy has been captured for this encounter? yes Request is for script(s) to be escript to pharmacy. Deidre Carreno LPN [facility]10-17-2024 Miscellaneous Notes* Telephone Encounter - Deidre Carreno LPN - 07/07/2024 1:29 PM EDT Last Office Visit Date: 04/11/2024 Last [facility] Visit: 04/19/2024 Has the patient had an appointment at [facility] in the past year, or do they have an upcoming appointment scheduled at [facility]? YES- Continue with refill request. Future Appointment: Visit date not found Patient Cuikerhart message requesting the following refill Refill(s) Requested: Requested Prescriptions Pending Prescriptions Disp Refills dulaglutide (TRULICITY) 0.75 mg/0.5 mL pen injector 6 mL 0 Sig: Inject 0.75 mg subcutaneously one time a week. Monitor bs closely and keep food log ALLERGIES Allergen Reactions Amoxicillin-Pot Cla* Anaphylaxis, Swelling Metformin Diarrhea Lisinopril Cough Sulfamethoxazole-Tr* Rash, Hives, Swelling (home) [phone] (cell) The patients preferred pharmacy has been captured for this encounter? yes Request is for script(s) to be escript to pharmacy. Deidre Carreno LPN documented in this encounterGu[facility]10-[facility]24 Telephone encounter Note * Telephone Encounter - Deidre Carreno LPN - 07/07/2024 1:27 PM EDT Last Office Visit Date: 04/11/2024 Last Distance [facility] Visit: 04/19/2024 Has the patient had an appointment at [facility] in the past year, or do they have an upcoming appointment scheduled at [facility]? YES- Continue with refill request. Future Appointment: 07/07/2024 Pharmacy faxed requesting the following refill Refill(s) Requested: Requested Prescriptions Pending Prescriptions Disp Refills aspirin, enteric coated (ADULT LOW DOSE ASPIRIN) 81 mg EC tablet 90 tablet 3 Sig: Take 1 tablet by mouth once daily. insulin glargine 100 unit/mL (3 mL) 9 mL 1 Sig: Inject 20 Units subcutaneously once daily. albuterol HFA (PROVENTIL HFA, VENTOLIN HFA) 90 mcg/actuation inhaler 6.7 g 0 Sig: Inhale 2 Puffs as instructed every 4 hours as needed for wheezing/shortness of breath. Insulin Whitman, Disposable, (PEN NEEDLE) 32 gauge x 5/32 100 Each 1 Sig: Inject 1 Each subcutaneously every 24 hours. Give with each insulin administration. Insulin Syringe-Needle U-100 0.5 mL 31 gauge x 5/16 100 Each 0 Sig: Inject 1 Each subcutaneously every 24 hours. Give with each insulin administration. empagliflozin (JARDIANCE) 10 mg tablet 90 tablet 0 Sig: Take 1 tablet by mouth daily with breakfast. metFORMIN (GLUCOPHAGE) 1,000 mg tablet 180 tablet 0 Sig: Take 1 tablet by mouth two times a day. levothyroxine (SYNTHROID) 125 mcg tablet 90 tablet 0 Sig: Take 1 tablet by mouth daily before breakfast. ALLERGIES Allergen Reactions Amoxicillin-Pot Cla* Anaphylaxis, Swelling Metformin Diarrhea Lisinopril Cough Sulfamethoxazole-Tr* Rash, Hives, Swelling (home) [phone] (cell) The patients preferred pharmacy has been captured for this encounter? yes Request is for script(s) to be escript to pharmacy. Deidre Carreno LPN [facility]10-17-2024 Miscellaneous Notes* Telephone Encounter - Deidre Carreno LPN - 07/07/2024 1:27 PM EDT Last Office Visit Date: 04/11/2024 Last [facility] [place] [facility] Visit: 04/19/2024 Has the patient had an appointment at [facility] in the past year, or do they have an upcoming appointment scheduled at [facility]? YES- Continue with refill request. Future Appointment: 07/07/2024 Pharmacy faxed requesting the following refill Refill(s) Requested: Requested Prescriptions Pending Prescriptions Disp Refills aspirin, enteric coated (ADULT LOW DOSE ASPIRIN) 81 mg EC tablet 90 tablet 3 Sig: Take 1 tablet by mouth once daily. insulin glargine 100 unit/mL (3 mL) 9 mL 1 Sig: Inject 20 Units subcutaneously once daily. albuterol HFA (PROVENTIL HFA, VENTOLIN HFA) 90 mcg/actuation inhaler 6.7 g 0 Sig: Inhale 2 Puffs as instructed every 4 hours as needed for wheezing/shortness of breath. Insulin Whitman, Disposable, (PEN NEEDLE) 32 gauge x 5/32 100 Each 1 Sig: Inject 1 Each subcutaneously every 24 hours. Give with each insulin administration. Insulin Syringe-Needle U-100 0.5 mL 31 gauge x 5/16 100 Each 0 Sig: Inject 1 Each subcutaneously every 24 hours. Give with each insulin administration. empagliflozin (JARDIANCE) 10 mg tablet 90 tablet 0 Sig: Take 1 tablet by mouth daily with breakfast. metFORMIN (GLUCOPHAGE) 1,000 mg tablet 180 tablet 0 Sig: Take 1 tablet by mouth two times a day. levothyroxine (SYNTHROID) 125 mcg tablet 90 tablet 0 Sig: Take 1 tablet by mouth daily before breakfast. ALLERGIES Allergen Reactions Amoxicillin-Pot Cla* Anaphylaxis, Swelling Metformin Diarrhea Lisinopril Cough Sulfamethoxazole-Tr* Rash, Hives, Swelling (home) [phone] (cell) The patients preferred pharmacy has been captured for this encounter? yes Request is for script(s) to be escript to pharmacy. Deidre Carreno LPN documented in this encounterGuernsey [facility]10-17-2024 Telephone encounter Note * Telephone Encounter - Deidre Carreno LPN - 07/07/2024 1:26 PM EDT New pharmacy. Last Office Visit Date: 04/11/2024 Last [facility] [place] Health Visit: 04/19/2024 Has the patient had an appointment at [facility] in the past year, or do they have an upcoming appointment scheduled at [facility]? YES- Continue with refill request. Future Appointment: 07/07/2024 Patient Avidbots message requesting the following refill Refill(s) Requested: Requested Prescriptions Pending Prescriptions Disp Refills rosuvastatin (CRESTOR) 10 mg tablet 90 tablet 3 Sig: Take 1 tablet by mouth daily at bedtime. ALLERGIES Allergen Reactions Amoxicillin-Pot Cla* Anaphylaxis, Swelling Metformin Diarrhea Lisinopril Cough Sulfamethoxazole-Tr* Rash, Hives, Swelling (home) [phone] (cell) The patients preferred pharmacy has been captured for this encounter? yes Request is for script(s) to be escript to pharmacy. Deidre Carreno LPN [facility]10-17-2024 Miscellaneous Notes* Telephone Encounter - Deidre Carreno LPN - 07/07/2024 1:26 PM EDT New pharmacy. Last Office Visit Date: 04/11/2024 Last [facility] [place] [facility] Visit: 04/19/2024 Has the patient had an appointment at [facility] in the past year, or do they have an upcoming appointment scheduled at [facility]? YES- Continue with refill request. Future Appointment: 07/07/2024 Patient [place] message requesting the following refill Refill(s) Requested: Requested Prescriptions Pending Prescriptions Disp Refills rosuvastatin (CRESTOR) 10 mg tablet 90 tablet 3 Sig: Take 1 tablet by mouth daily at bedtime. ALLERGIES Allergen Reactions Amoxicillin-Pot Cla* Anaphylaxis, Swelling Metformin Diarrhea Lisinopril Cough Sulfamethoxazole-Tr* Rash, Hives, Swelling (home) [phone] (cell) The patients preferred pharmacy has been captured for this encounter? yes Request is for script(s) to be escript to pharmacy. Deidre Carreno LPN documented in this encounterGuernsey [facility]10-17-2024 Telephone encounter Note * Telephone Encounter - Kathryn Maria PSS - 07/07/2024 9:47 AM EDT Patient [employer]hart message requesting the following refill Refill(s) Requested: Requested Prescriptions Pending Prescriptions Disp Refills mirtazapine (REMERON) 15 mg tablet 30 tablet 2 Sig: Take 1 tablet by mouth daily at bedtime. ALLERGIES Allergen Reactions Amoxicillin-Pot Cla* Anaphylaxis, Swelling Metformin Diarrhea Lisinopril Cough Sulfamethoxazole-Tr* Rash, Hives, Swelling (home) [phone] (cell) Last Office Visit Date: 02/03/2024 Last Distance Health Visit: Visit date not found Future Appointment: Visit date not found The patients preferred pharmacy has been captured for this encounter? yes Request is for script(s) to be escript to pharmacy. MAX Rashid [facility]10-17-2024 Miscellaneous Notes* Telephone Encounter - Kathryn Maria PSS - 07/07/2024 9:47 AM EDT Patient Cu[place]hart message requesting the following refill Refill(s) Requested: Requested Prescriptions Pending Prescriptions Disp Refills mirtazapine (REMERON) 15 mg tablet 30 tablet 2 Sig: Take 1 tablet by mouth daily at bedtime. ALLERGIES Allergen Reactions Amoxicillin-Pot Cla* Anaphylaxis, Swelling Metformin Diarrhea Lisinopril Cough Sulfamethoxazole-Tr* Rash, Hives, Swelling (home) [phone] (cell) Last Office Visit Date: 02/03/2024 Last Distance Health Visit: Visit date not found Future Appointment: Visit date not found The patients preferred pharmacy has been captured for this encounter? yes Request is for script(s) to be escript to pharmacy. MAX Rashid documented in this encounterGuernsey Memorial Hospital10-17-2024 Telephone encounter Note * Telephone Encounter - Ana Barney LPN - 07/07/2024 9:10 AM EDT Patient's request for medication is as follows: Requested Prescriptions Refused Prescriptions Disp Refills metoprolol succinate ER (TOPROL XL) 25 mg 24 hr tablet 30 tablet 2 Sig: Take 1 tablet by mouth once daily. Refused By: ANA BARNEY Reason for Refusal: A Refill not appropriate Last seen 06/26/2023. Patient contacted 06/06/2024 to schedule over due appointment. Patient refused to schedule. Message sent to pharmacy: Please forward to PCP. Last seen 06/26/23 and ref to schedule. Prescription(s) as above. Please process accordingly. Ana Barney LPN [facility]10-17-2024 Miscellaneous Notes* Telephone Encounter - Ana Barney LPN - 07/07/2024 9:10 AM EDT Patient's request for medication is as follows: Requested Prescriptions Refused Prescriptions Disp Refills metoprolol succinate ER (TOPROL XL) 25 mg 24 hr tablet 30 tablet 2 Sig: Take 1 tablet by mouth once daily. Refused By: ANA BARNEY Reason for Refusal: A Refill not appropriate Last seen 06/26/2023. Patient contacted 06/06/2024 to schedule over due appointment. Patient refused to schedule. Message sent to pharmacy: Please forward to PCP. Last seen 06/26/23 and ref to schedule. Prescription(s) as above. Please process accordingly. Ana Barney LPN documented in this encounterGuernsey Memorial Hospital10-17-2024 Telephone encounter Note * Telephone Encounter - Sandra Abbasi LPN - 07/07/2024 9:07 AM EDT Patient's request for medication is as follows: Requested Prescriptions Pending Prescriptions Disp Refills spironolactone (ALDACTONE) 25 mg tablet 90 tablet 0 Sig: Take 1 tablet by mouth once daily. Last seen 06/26/2023- transferred to [facility] to schedule overdue follow up appointment. Prescription(s) as above. Please process accordingly. Sandra Abbasi LPN [facility]10-17-2024 Miscellaneous Notes* Telephone Encounter - Sandra Abbasi LPN - 07/07/2024 9:07 AM EDT Patient's request for medication is as follows: Requested Prescriptions Pending Prescriptions Disp Refills spironolactone (ALDACTONE) 25 mg tablet 90 tablet 0 Sig: Take 1 tablet by mouth once daily. Last seen 06/26/2023- transferred to clerical pool to schedule overdue follow up appointment. Prescription(s) as above. Please process accordingly. Sandra Abbasi LPN documented in this encounterGuernsey Memorial Hospital09-17-2024 NoteHNO ID: [id number] Author: DENISE CORONADO RN Service: ? Author Type: Registered Nurse Type: Progress Notes Filed: 06/07/2024 16:51 Note Text: AG TRANSITIONAL CARE MANAGEMENT (TCM) FOLLOW-UP NOTE Provider Action/FYI: Patient instructed to follow up with PCP by cardiology regarding recent labs. Appointment scheduled 06/14. Denise Coronado RN Patient identified by name and date of : YES Spoke to: patient Diagnosis: CHF Summary: Patient kept call brief, states that he is doing ok. Patient voiced concerns as he was instructed by cardiology to follow up with PCP regarding recent lab results. Patient called cardiology to schedule and could not schedule until July and became frustrated. SN scheduled follow up appointment for 06/14. Patient states that he was seen by dentist yesterday and placed on antibiotics. Health leads screening tool questions performed? 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: Will follow-up in 3 weeks Signature: [facility] Coronado RN June 07[facility] History of Present illness Narrative* Denise Coronado RN - 06/07/2024 4:34 PM EDT AG TRANSITIONAL CARE MANAGEMENT (TCM) FOLLOW-UP NOTE Provider Action/FYI: Patient instructed to follow up with PCP by cardiology regarding recent labs. Appointment scheduled06/14. Denise Coronado RN Patient identified by name and date of : YES Spoke to: patient Diagnosis: CHF Summary: Patient kept call brief, states that he is doing ok. Patient voiced concerns as he was instructed by cardiology to follow up with PCP regarding recent lab results. Patient called cardiology to schedule and could not schedule until July and became frustrated. SN scheduled follow up appointment for 06/14. Patient states that he was seen by dentist yesterday and placed on antibiotics. Health leads screening tool questions performed? 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 Appointment scheduled 06/14. Denise Coronado RN Patient identified by name and date of : YES Spoke to: patient Diagnosis: CHF Summary: Patient kept call brief, states that he is doing ok. Patient voiced concerns as he was instructed by cardiology to follow up with PCP regarding recent lab results. Patient called cardiology to schedule and could not schedule until July and became frustrated. SN scheduled follow up appointment for 06/14. Patient states that he was seen by dentist yesterday and placed on antibiotics. Health leads screening tool questions performed? 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: Will follow-up in 3 weeks Signature: Denise Coronado RN June 07, 2024 Allergies As of Date: 06/07/2024 Noted Allergy Reaction AMOXICILLIN-POT CLAVULANATE 12/23/2023 10 - Anaphylaxis 7 - Swelling METFORMIN 04/26/2023 6 - Diarrhea LISINOPRIL 04/24/2023 3 - Cough SULFAMETHOXAZOLE-TRIMETHOPRIM 10/20/2009 2 - Rash 4 - Hives 7 - Swelling Date Reviewed: 04/27/2024 Reviewed by: Cristobal Ames RN - Fully Assessed Reason for Visit: Transition Of Care [4074] Cmt: TCM Follow up call Prescriptions as of 06/07/2024 - ASA/acetaminophen/caffeine/pot (GOODY'S HEADACHE POWDER ORAL) Take 1 Packet by mouth as needed (headaches). - spironolactone (ALDACTONE) 25 mg tablet Take 1 tablet by mouth once daily. - dulaglutide (TRULICITY) 0.75 mg/0.5 mL pen injector Inject 0.75 mg subcutaneously one time a week. Monitor bs closely and keep food log - metFORMIN (GLUCOPHAGE) 1,000 mg tablet Take 1 tablet by mouth two times a day. - levothyroxine (SYNTHROID) 125 mcg tablet Take 1 tablet by mouth daily before breakfast. - metoprolol succinate ER (TOPROL XL) 25 mg 24 hr tablet Take 1 tablet by mouth once daily. - sacubitril-valsartan (ENTRESTO) 24-26 mg tablet Take 1 tablet by mouth two times a day. - furosemide (LASIX) 40 mg tablet Take 1 tablet by mouth once daily. Patient should start on April 16, 2024. - magnesium, aluminum hydroxide (MYLANTA ORAL) Take 5 mL by mouth two times a day as needed (heartburn). - nystatin (MYCOSTATIN) 100,000 unit/mL suspension Take 100,000 Units by mouth four times daily. Swish and swallow. 5 ml 4times daily - empagliflozin (JARDIANCE) 10 mg tablet Take 1 tablet by mouth daily with breakfast. - mirtazapine (REMERON) 15 mg tablet Take 1 tablet by mouth daily at bedtime. - albuterol HFA (PROVENTIL HFA, VENTOLIN HFA) 90 mcg/actuation inhaler Inhale 2 Puffs as instructed every 4 hours as needed for wheezing/shortness of breath. - Insulin Whitman, Disposable, (PEN NEEDLE) 32 gauge x 5/32 Inject 1 Each subcutaneously every 24 hours. Give with each insulin administration. - Insulin Syringe-Needle U-100 0.5 mL 31 gauge x 5/16 Inject 1 Each subcutaneously every 24 hours. Give with each insulin administration. - aspirin, enteric coated (ADULT LOW DOSE ASPIRIN) 81 mg EC tablet Take 1 tablet by mouth once daily. - insulin glargine 100 unit/mL (3 mL) Inject 20 Units subcutaneously once daily. - rosuvastatin (CRESTOR) 10 mg tablet Take 1 tablet by mouth daily at bedtime. Meds Comments as of 10/23/2023: 10/23/23 The medications are managed by this patient by: PATIENT Calixto Latif OA Problem List As Of Date 06/07/2024 Noted Resolved CAD (coronary artery disease) [I25.10] 09/04/2014 S/P coronary artery stent placement [Z95.5] 09/04/2014 Left bundle branch block (LBBB) on electrocardi*09/04/2014 H/O myocardial infarction, greater than 8 weeks*09/04/2014 Tobacco abuse [Z72.0] 09/04/2014 Obesity [E66.9] 09/04/2014 Status post insertion of drug-eluting stent int*11/17/2016 Non morbid obesity due to excess calories [E66.*11/17/2016 Obesity, Class III, BMI >= 40 [E66.01] 05/11/2023 Hypercholesteremia [E78.00] HTN (hypertension) [I10] Schizoaffective disorder, bipolar type (HCC) [F*09/10/2023 11/02/2023 Cocaine dependence in remission (HCC) [F14.21] 09/10/2023 Hypothyroidism [E03.9] Diabetes mellitus (HCC) [E11.9] Cataract, nuclear sclerotic, both eyes [H25.13] 10/23/2023 Hyperopia of both eyes [H52.03] 10/23/2023 Regular astigmatism of both eyes [H52.223] 10/23/2023 Presbyopia of both eyes [H52.4] 10/23/2023 Mood disorder (HCC) [F39] 11/02/2023 Acute systolic HF (heart failure) (HCC) [I50.21]04/13/2024 Acute on chronic systolic (congestive) hear (more content not included)...[facility]09-16-2024 Telephone encounter Note* Telephone Encounter - Jessica Fitzgerald - 06/06/2024 9:10 AM EDT pt called to reschedule appointment when i told him the next available would be july he said hewould find another doctor. Thanks Jessica Fitzgerald [facility]09-16-2024 Telephone encounter Note* Telephone Encounter - Sandra Abbasi LPN - 06/06/2024 8:32 AM EDT Spoke with patient about test results and recommendation to follow up with PCP. Patient verbalizes understanding and is agreeable. Sandra Abbasi LPN [facility]09-16-2024 Miscellaneous Notes* Telephone Encounter - Sandra Abbasi LPN - 06/06/2024 8:32 AM EDT Spoke with patient about test results and recommendation to follow up with PCP. Patient verbalizes understanding and is agreeable. Sandra Abbasi LPN * Telephone Encounter - Sandra Abbasi LPN - 06/06/2024 8:31 AM EDT ----- Message from Yousuf Ponce MD sent at 06/06/2024 8:30 AM EDT ----- Can you please let Mr. Marsh know his CBC revealed mildly elevated white count and elevated hemoglobin level. I would recommend he follow up with his PCP in this regards. Thanks, Yousuf Ponce MD documented in this encounterGuernsey Memorial Hospital09-16-2024 Telephone encounter Note * Telephone Encounter - Sandra Abbasi LPN - 06/06/2024 8:31 AM EDT ----- Message from Yousuf Ponce MD sent at 06/06/2024 8:30 AM EDT ----- Can you please let Mr. Marsh know his CBC revealed mildly elevated white count and elevated hemoglobin level. I would recommend he follow up with his PCP in this regards. Thanks, Yousuf Ponce MD [facility]09-13-2024 Telephone encounter Note* Telephone Encounter - Josette Mcgee RN - 06/03/2024 1:20 PM EDT Call placed. LM requesting for patient to return call. Office number left at this time. [facility]-13-2024 Miscellaneous Notes* Telephone Encounter - Josette Mcgee RN - 06/03/2024 1:20 PM EDT Call placed. LM requesting for patient to return call. Office number left at this time. * Telephone Encounter - Boo Kiran APRN.CNP - 06/03/2024 10:49 AM EDT Can you please call and let him know that the blood work has been reviewed. With last visit we added aldactone 25mg tab daily Creatinine is 1.2 Potassium is 5.1 The potassium is on the high normal side Please discuss high potassium containing foods and drinks to avoid such as anything high citrus -such as grapefruits grapefruit juice tosin limes lemonade, dark green leafy vegetables, potatoes, Gatorade Powerade boost Ensure Would need to have another BMP drawn in 2-3 weeks to ensure K is stable BMP ordered Boo Kiran APRN.JOHN documented in this encounterGuernsey Memorial Hospital09-13-2024 Telephone encounter Note * Telephone Encounter - Boo Kiran APRN.CNP - 06/03/2024 10:49 AM EDT Can you please call and let him know that the blood work has been reviewed. With last visit we added aldactone 25mg tab daily Creatinine is 1.2 Potassium is 5.1 The potassium is on the high normal side Please discuss high potassium containing foods and drinks to avoid such as anything high citrus -such as grapefruits grapefruit juice otsin limes lemonade, dark green leafy vegetables, potatoes, Gatorade Powerade boost Ensure Would need to have another BMP drawn in 2-3 weeks to ensure K is stable BMP ordered Boo Kiran APRN.CNP [facility]09-04-2024 NoteHNO ID: [id number] Author: DENISE CORONADO RN Service: ? Author Type: Registered Nurse Type: Progress Notes Filed: 05/25/2024 16:43 Note Text: AG TRANSITIONAL CARE MANAGEMENT (TCM) FOLLOW-UP NOTE Provider Action/FYI: Patient identified by name and date of : YES Spoke to: patient Diagnosis: CHF Summary: Patient reports that he is taking his medications as directed. Entresto and Eliquis bid and that he did obtain spironolactone as ordered. Patient states that he plans to obtain labs in 4 days as that will be 2 weeks of taking medications correctly. Patient notes that his weight has been steady at 275, blood pressure 120/80, blood sugar 105. Reviewed CHF zones and encouraged patient to report any changes in symptoms. Patient verbalized understanding. Patient voiced concerns with area on his neck that he had an ultrasound completed in October and with pain to his thumb. Patient did not have calendar available to schedule an appointment. Patient to return call to assist with scheduling. Health leads screening tool questions performed? 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 Entresto and Eliquis bid and that hedid obtain spironolactone as ordered. Patient states that he plans to obtain labs in 4 days as thatwill be 2 weeks of taking medications correctly. Patient notes that his weight has been steady at 275, blood pressure 120/80, blood sugar 105. Reviewed CHF zones and encouraged patient to report any changes in symptoms. Patient verbalized understanding. Patient voiced concerns with area on his neckthat he had an ultrasound completed in October and with pain to his thumb. Patient did not have calendar available to schedule an appointment. Patient to return call to assist with scheduling. Health leads screening tool questions performed? 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: Will follow-up in 2 weeks Signature: Denise Coronado RN May 25, 2024 documented in this encounterGuernsey [facility]09[facility]24 NotePatient Outreach (AGACM) VENKAT MARSH ([id number]) 1965 M Date Time Provider Department 05/25/24 DENISE CORONADO [facility] During your visit today, we recorded the following information about you: Denise Coronado RN 05/25/2024 4:43 PM Signed TRANSITIONAL CARE MANAGEMENT (TCM) FOLLOW-UP NOTE Provider Action/FYI: Patient identified by name and date of : YES Spoke to: patient Diagnosis: CHF Summary: Patient reports that he is taking his medications as directed. Entresto and Eliquis bid and that he did obtain spironolactone as ordered. Patient states that he plans to obtain labs in 4 days as that will be 2 weeks of taking medications correctly. Patient notes that his weight has been steady at 275, blood pressure 120/80, blood sugar 105. Reviewed CHF zones and encouraged patient to report any changes in symptoms. Patient verbalized understanding. Patient voiced concerns with area on his neck that he had an ultrasound completed in October and with pain to his thumb. Patient did not have calendar available to schedule an appointment. Patient to return call to assist with scheduling. Health leads screening tool questions performed? 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: Will follow-up in 2 weeks Signature: Denise Coronado RN May 25, 2024 Allergies As of Date: 05/25/2024 Noted Allergy Reaction AMOXICILLIN-POT CLAVULANATE 12/23/2023 10 - Anaphylaxis 7 - Swelling METFORMIN 04/26/2023 6 - Diarrhea LISINOPRIL 04/24/2023 3 - Cough SULFAMETHOXAZOLE-TRIMETHOPRIM 10/20/2009 2 - Rash 4 - Hives 7 - Swelling Date Reviewed: 04/27/2024 Reviewed by: Cristobal Ames RN - Fully Assessed Reason for Visit: Transition Of Care [4074] Cmt: TCM Follow up call Prescriptions as of 05/25/2024 - ASA/acetaminophen/caffeine/pot (GOODY'S HEADACHE POWDER ORAL) Take 1 Packet by mouth as needed (headaches). - spironolactone (ALDACTONE) 25 mg tablet Take 1 tablet by mouth once daily. - dulaglutide (TRULICITY) 0.75 mg/0.5 mL pen injector Inject 0.75 mg subcutaneously one time a week. Monitor bs closely and keep food log - metFORMIN (GLUCOPHAGE) 1,000 mg tablet Take 1 tablet by mouth two times a day. - levothyroxine (SYNTHROID) 125 mcg tablet Take 1 tablet by mouth daily before breakfast. - metoprolol succinate ER (TOPROL XL) 25 mg 24 hr tablet Take 1 tablet by mouth once daily. - sacubitril-valsartan (ENTRESTO) 24-26 mg tablet Take 1 tablet by mouth two times a day. - furosemide (LASIX) 40 mg tablet Take 1 tablet by mouth once daily. Patient should start on April 16, 2024. - magnesium, aluminum hydroxide (MYLANTA ORAL) Take 5 mL by mouth two times a day as needed (heartburn). - nystatin (MYCOSTATIN) 100,000 unit/mL suspension Take 100,000 Units by mouth four times daily. Swish and swallow. 5 ml 4times daily - empagliflozin (JARDIANCE) 10 mg tablet Take 1 tablet by mouth daily with breakfast. - mirtazapine (REMERON) 15 mg tablet Take 1 tablet by mouth daily at bedtime. - albuterol HFA (PROVENTIL HFA, VENTOLIN HFA) 90 mcg/actuation inhaler Inhale 2 Puffs as instructed every 4 hours as needed for wheezing/shortness of breath. - Insulin Whitman, Disposable, (PEN NEEDLE) 32 gauge x 5/32 Inject 1 Each subcutaneously every 24 hours. Give with each insulin administration. - Insulin Syringe-Needle U-100 0.5 mL 31 gauge x 5/16 Inject 1 Each subcutaneously every 24 hours. Give with each insulin administration. - aspirin, enteric coated (ADULT LOW DOSE ASPIRIN) 81 mg EC tablet Take 1 tablet by mouth once daily. - insulin glargine 100 unit/mL (3 mL) Inject 20 Units subcutaneously once daily. - rosuvastatin (CRESTOR) 10 mg tablet Take 1 tablet by mouth daily at bedtime. Meds Comments as of 10/23/2023: 10/23/23 The medications are managed by this patient by: PATIENT OPHELIA Crooks Problem List As Of Date 05/25/2024 Noted Resolved CAD (coronary artery disease) [I25.10] 09/04/2014 S/P coronary artery stent placement [Z95.5] 09/04/2014 Left bundle branch block (LBBB) on electrocardi*09/04/2014 H/O myocardial infarction, greater than 8 weeks*09/04/2014 Tobacco abuse [Z72.0] 09/04/2014 Obesity [E66.9] 09/04/2014 Status post insertion of drug-eluting stent int*11/17/2016 Non morbid obesity due to excess calories [E66.*11/17/2016 Obesity, Class III, BMI >= 40 [E66.01] 05/11/2023 Hypercholesteremia [E78.00] HTN (hypertension) [I10] Schizoaffective disorder, bipolar type (HCC) [F*09/10/2023 11/02/2023 Cocaine dependence in remission (HCC) [F14.21] 09/10/2023 Hypothyroidism [E03.9] Diabetes mellitus (HCC) [E11.9] Cataract, nuclear sclerotic, both eyes [H25.13] 10/23/2023 Hyperopia of both eyes [H52.03] 10/23/2023 Regular astigmatism of both eyes [H52.223] 10/23/2023 Presbyopia of bot (more content not included)...[facility] 05-22-2024 Miscellaneous Notes* Telephone Encounter - Jessica Fitzgerald - 06/06/2024 9:10 AM EDT pt called to reschedule appointment when i told him the next available would be july he said hewould find another doctor. Thanks Jessica Fitzgerald documented in this encounterGuernsey [facility] Hospital08-26-[facility]24 Telephone encounter Note * Telephone Encounter - Josette Mcgee RN - 05/16/2024 3:11 PM EDT Call placed to patient to verify picking up Aldactone and medication clarification Network Navigation SBAR Situation: Called patient to verify medications and obtaining Spironolactone. Background: Patient was only taking Entresto and Eliquis once daily and was instructed to increase this to twice a day as prescribed. 2. Patient was ordered Spironolactone and had not yet picked up medication at the time of last office visit. 3. Patient stated that he found a bottle of Losartan Assessment: Patient reported that he is taking the medication BID Patient picked up and is now taking Spironolactone Patient reported that he started taking the Losartan Potassium today Recommendation: Continue Entresto, Eliquis and Spironolactone as prescribed. Have blood work obtained in 2 weeks at laboratory in [place] STOP Losartan. Explanation that Entresto and Losartan contain the same medication and Losartan pills should be brought to a pharmacy that takes in old medicine. Patient stated understanding. Of the above and repeated instructions in own wording [facility]08-26-2024 Miscellaneous Notes* Telephone Encounter - Josette Mcgee RN - 05/16/2024 3:11 PM EDT Call placed to patient to verify picking up Aldactone and medication clarification Network Navigation SBAR Situation: Called patient to verify medications and obtaining Spironolactone. Background: Patient was only taking Entresto and Eliquis once daily and was instructed to increase this to twice a day as prescribed. 2. Patient was ordered Spironolactone and had not yet picked up medication at the time of last office visit. 3. Patient stated that he found a bottle of Losartan Assessment: Patient reported that he is taking the medication BID Patient picked up and is now taking Spironolactone Patient reported that he started taking the Losartan Potassium today Recommendation: Continue Entresto, Eliquis and Spironolactone as prescribed. Have blood work obtained in 2 weeks at laboratory in [place] STOP Losartan. Explanation that Entresto and Losartan contain the same medication and Losartan pills should be brought to a pharmacy that takes in old medicine. Patient stated understanding. Of the above and repeated instructions in own wording documented in this encounterGuernsey [facility] Hospital08-23-2024 Telephone encounter Note * Telephone Encounter - Josette Mcgee RN - 05/13/2024 9:56 AM EDT Call placed to patient to verify that he picked up the Spironolactone and if he had started taking both Eliquis and Entresto twice a day. Unfortunately, Mr. Marsh has not obtained the new prescription. Patient hung up before obtaining any more information. Since he is active with [employer], a message will be sent on the above. [facility]08-23-2024 Miscellaneous Notes* Telephone Encounter - Josette Mcgee RN - 05/13/2024 9:56 AM EDT Call placed to patient to verify that he picked up the Spironolactone and if he had started taking both Eliquis and Entresto twice a day. Unfortunately, Mr. Marsh has not obtained the new prescription. Patient hung up before obtaining any more information. Since he is active with [employer], a message will be sent on the above. documented in this encounterGuernsey [facility] Hospital08-22-2024 Telephone encounter Note * Telephone Encounter - Sanjay Martin - 05/12/2024 1:20 PM EDT Called pt to schedule Cardiac Rehab. Patient prefers [facility]. Information sent via fax. [facility]08-22-2024 Miscellaneous Notes* Telephone Encounter - Sanjay Martin - 05/12/2024 1:20 PM EDT Called pt to schedule Cardiac Rehab. Patient prefers [facility]. Information sent via fax. documented in this encounterGuernsey Memorial Hospital08-21-2024 Nurse Note* Josette Mcgee RN - 05/11/2024 11:08 AM EDT Nursing Assessment: Interim Hospitalizations and/or ER visits: No Cough: No Shortness of breath at rest: No Shortness of breath with activity: No Lungs clear: Yes Orthopnea, number of pillows: No - one pillow under head GI Complaints: No Edema, site: No edema Abdominal: softly distended. Negative fluid shift. Waist circumference remains the same at 56 Skipping or irregular heartbeats: No Chest Pain: No Lightheadedness or dizziness: Yes - when getting up out of bed fast. Cautioned to sit and dangle until stable Feeling like you are going to pass out: No Actually passing out: No Poor energy level: No PND: No Waking up in the middle of the night gasping for air: No Unintentional weight gain: No Unintentional weight loss: No Swelling in your legs,feet, abdomen: No Among other conditions mentioned above, Venkat Marsh suffers from congestive heart failure NYHA II, Stage C. Readiness to Learn Information Needed on: Medication Cognitive Ability: Despite being alert and oriented, he could not consistently keep on subject having to be redirected many times. Motivation to Learn: Eager - patient requested information to be given at a 5th grade level Family Support: Unable to assess - Family not present Instruction Provided to: Patient Patient Learns best by: Written Instruction - Hand-outs Physical Limitations Affecting Learning: None Learning Response Method of Instruction: Individual instruction Written instruction - handouts Patient / Family Response: ALL RECOMMENDATIONS HAVE BEEN GIVEN IN WRITTEN FORM. Patient read the instructions out loud, verbalized understanding. Summary of Visit: Mr. Marsh arrived to the [facility] for his 2-week follow up with the nurse. Shadi presented alone, ambulating independently. He was able to speak in full sentences with this activity. Medication updates noted in MAR - Noted confusion regarding medications. Shadi stated that he did not know about being started on Spironolactone by the [facility] two weeks ago. 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 Shadi instructed to do this today. He also was unaware that he was to take his Eliquis and Entresto twice a day, reporting only taking these daily. Confirmed on prescription bottle that these indeed directed the patient to take twice daily. Due to his concern about understanding verbal directions, the [facility] nurse clearly wrote directions on the AVS. The patient read back all instructions and then in his own words accurately stated them. Heart Failure specific medications: (list current, note updates, changes, prior intolerance) BB: Metoprolol Succinate 25 daily BECKY/ARB/ARNI: Entresto 24-26 BID MRA:Spironolactone 25 mg daily (had not picked up yet, will do so today) SGLT2: Jardiance 10 mg daily DIURETIC:Lasix 40 mg daily OTHER: Adherence with medications: See above Weight at home: unknown Weight in [facility]: 275 lbs - was 283 lbs on 04/27/2024 Waist Circumference 56 Dietary Adherence: YES Follow-up Plan: one month with [facility] Education CHF Education Activity Daily Weight Symptoms Nutrition Medication (doses, side effects, interactions) Stress Management T [facility]08-21-2024 Nurse Note* oJsette Mcgee, RN - 05/11/2024 11:08 AM EDT Nursing Assessment: Interim Hospitalizations and/or ER visits: No Cough: No Shortness of breath at rest: No Shortness of breath with activity: No Lungs clear: Yes Orthopnea, number of pillows: No - one pillow under head GI Complaints: No Edema, site: No edema Abdominal: softly distended. Negative fluid shift. Waist circumference remains the same at 56 Skipping or irregular heartbeats: No Chest Pain: No Lightheadedness or dizziness: Yes - when getting up out of bed fast. Cautioned to sit and dangle until stable Feeling like you are going to pass out: No Actually passing out: No Poor energy level: No PND: No Waking up in the middle of the night gasping for air: No Unintentional weight gain: No Unintentional weight loss: No Swelling in your legs,feet, abdomen: No Among other conditions mentioned above, Venkat Marsh suffers from congestive heart failure NYHA II, Stage C. Readiness to Learn Information Needed on: Medication Cognitive Ability: Despite being alert and oriented, he could not consistently keep on subject having to be redirected many times. Motivation to Learn: Eager - patient requested information to be given at a 5th grade level Family Support: Unable to assess - Family not present Instruction Provided to: Patient Patient Learns best by: Written Instruction - Hand-outs Physical Limitations Affecting Learning: None Learning Response Method of Instruction: Individual instruction Written instruction - handouts Patient / Family Response: ALL RECOMMENDATIONS HAVE BEEN GIVEN IN WRITTEN FORM. Patient read the instructions out loud, verbalized understanding. Summary of Visit: Mr. Marsh arrived to the [facility] for his 2-week follow up with the nurse. Shadi presented alone, ambulating independently. He was able to speak in full sentences with this activity. Medication updates noted in MAR - Noted confusion regarding medications. Shadi stated that he did not know about being started on Spironolactone by the [facility] two weeks ago. 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 Shadi instructed to do this today. He also was unaware that he was to take his Eliquis and Entresto twice a day, reporting only taking these daily. Confirmed on prescription bottle that these indeed directed the patient to take twice daily. Due to his concern about understanding verbal directions, the [facility] nurse clearly wrote directions on the AVS. The patient read back all instructions and then in his own words accurately stated them. Heart Failure specific medications: (list current, note updates, changes, prior intolerance) BB: Metoprolol Succinate 25 daily BECKY/ARB/ARNI: Entresto 24-26 BID MRA:Spironolactone 25 mg daily (had not picked up yet, will do so today) SGLT2: Jardiance 10 mg daily DIURETIC:Lasix 40 mg daily OTHER: Adherence with medications: See above Weight at home: unknown Weight in [facility]: 275 lbs - was 283 lbs on 04/27/2024 Waist Circumference 56 Dietary Adherence: YES Follow-up Plan: one month with [employer] Education CHF Education Activity Daily Weight Symptoms Nutrition Medication (doses, side effects, interactions) Stress Management documented in this encounterGuernsey Memorial Hospital08-21-2024 Instructions* Patient Instructions* Josette Mcgee RN - 05/11/2024 10:51 AM EDT Thank you for visiting the [facility] today. Recommendations for today; 1. supervisor powdered metal your medication at [facility] pharmacy - Spironolactone/Aldactone 25 mg daily. 2. On 2023 HAVE BLOOD WORK OBTAINED. This can be at the nearest [facility] lab. Closest lab in [place] is the one on [facility]. 3. You reported that you were only taking your Eliquis, Entresto once a day. These are supposed to be twice a day. Start taking these medications at 8 am and 4 pm Please keep up the great work on managing your sodium and fluid restrictions. The below are ideas on how to best manage your heart failure symptoms. Please weigh daily and record. It is most important that you weigh close to the same time every day. Please be consistent on weighing (if you start weighing undressed continue on doing so) Read your food labels and watch for hidden sodium. Keep your sodium intake between 1500-2000mg daily. This must be balanced per every meal you eat in the day. For example, if you eat three meals you will need 500-650 mg per meal. If you eat 6 small meals a day, then you will need to take in 300 mg per meal. Remember, any foods made or created by someone else may have a high content of sodium. Such as, grocery foods, restaurant foods and any foods made by friends or family! Try to include a form of protein with every meal. Keep your fluid intake at 48-64 ounces /day. Increase your activity as tolerated. This includes anything liquid at room temperature. Such as Jell-O, pudding, yogurt, ice cream Call the [facility] ([phone]) for AN APPOINTMENT (NO WALK-IN VISITS) if you have changes in symptoms or increase in weight of 3 lbs in one day or 5 lbs in a week. Thank you, Josette Mcgee RN documented in this encounterGuernsey Memorial Hospital08-20-2024 NoteHNO ID: [id number] Author: DENISE CORONADO RN Service: ? Author Type: Registered Nurse Type: Progress Notes Filed: 05/10/2024 17:53 Note Text: AG TRANSITIONAL CARE MANAGEMENT (TCM) FOLLOW-UP NOTE Provider Action/FYI: Patient identified by name and date of : YES Spoke to: patient Diagnosis: CHF Summary: Patient reports that he is feeling much better. Patient reports that he is taking his medications routinely and has noticed improvement with blood pressure readings, weight and blood sugar. Reviewed CHF zones and encouraged patient to report any changes in symptoms. Patient verbalized understanding. Patient has an appointment with CHF clinic tomorrow. Patient reports joining a [employer] and plans to begin walking there. Health leads screening tool questions performed? 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 Patient reports that he is taking his medications routinely and has noticed improvement with blood pressure readings, weight and blood sugar. Reviewed CHF zones and encouraged patient to report any changes in symptoms. Patient verbalized understanding. Patient has an appointment with CHF clinic tomorrow. Patient reports joining a [employer] and plans to begin walking there. Health leads screening tool questions performed? 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 Author Type: Resident Type: Progress Notes Filed: 05/10/2024 13:11 Note Text: Patient self discontinued metformin, but is currently taking both GLP-1 and SGLT-2i. Will closely monitor A1c over the next several months - patient is due for screening now, as such order placed.[facility]08-20-2024 NotePatient Outreach (AGACM) VENKAT MARSH ([id number]) 1965 M Date Time Provider Department 05/10/24 DENISE CORONADO AGA During your visit today, we recorded the following information about you: Denise Coronado RN 05/10/2024 5:53 PM Signed AG TRANSITIONAL CARE MANAGEMENT (TCM) FOLLOW-UP NOTE Provider Action/FYI: Patient identified by name and date of : YES Spoke to: patient Diagnosis: CHF Summary: Patient reports that he is feeling much better. Patient reports that he is taking his medications routinely and has noticed improvement with blood pressure readings, weight and blood sugar. Reviewed CHF zones and encouraged patient to report any changes in symptoms. Patient verbalized understanding. Patient has an appointment with CHF clinic tomorrow. Patient reports joining a [employer] and plans to begin walking there. Health leads screening tool questions performed? 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 - dulaglutide (TRULICITY) 0.75 mg/0.5 mL pen injector Inject 0.75 mg subcutaneously one time a week. Monitor bs closely and keep food log - metFORMIN (GLUCOPHAGE) 1,000 mg tablet Take 1 tablet by mouth two times a day. - levothyroxine (SYNTHROID) 125 mcg tablet Take 1 tablet by mouth daily before breakfast. - metoprolol succinate ER (TOPROL XL) 25 mg 24 hr tablet Take 1 tablet by mouth once daily. - sacubitril-valsartan (ENTRESTO) 24-26 mg tablet Take 1 tablet by mouth two times a day. - apixaban (ELIQUIS) 5 mg tab(s) Take 1 tablet by mouth two times a day. - furosemide (LASIX) 40 mg tablet Take 1 tablet by mouth once daily. Patient should start on April 16, 2024. - magnesium, aluminum hydroxide (MYLANTA ORAL) Take 5 mL by mouth two times a day as needed (heartburn). - nystatin (MYCOSTATIN) 100,000 unit/mL suspension Take 100,000 Units by mouth four times daily. Swish and swallow. 5 ml 4times daily - empagliflozin (JARDIANCE) 10 mg tablet Take 1 tablet by mouth daily with breakfast. - mirtazapine (REMERON) 15 mg tablet Take 1 tablet by mouth daily at bedtime. - albuterol HFA (PROVENTIL HFA, VENTOLIN HFA) 90 mcg/actuation inhaler Inhale 2 Puffs as instructed every 4 hours as needed for wheezing/shortness of breath. - Insulin Whitman, Disposable, (PEN NEEDLE) 32 gauge x 5/32 Inject 1 Each subcutaneously every 24 hours. Give with each insulin administration. - Insulin Syringe-Needle U-100 0.5 mL 31 gauge x 5/16 Inject 1 Each subcutaneously every 24 hours. Give with each insulin administration. - aspirin, enteric coated (ADULT LOW DOSE ASPIRIN) 81 mg EC tablet Take 1 tablet by mouth once daily. - insulin glargine 100 unit/mL (3 mL) Inject 20 Units subcutaneously once daily. - rosuvastatin (CRESTOR) 10 mg tablet Take 1 tablet by mouth daily at bedtime. Meds Comments as of 10/23/2023: 10/23/23 The medications are managed by this patient by: PATIENT OPHELIA Crooks Problem List As Of Date 05/10/2024 Noted Resolved CAD (coronary artery disease) [I25.10] 09/04/2014 S/P coronary artery stent placement [Z95.5] 09/04/2014 Left bundle branch block (LBBB) on electrocardi*09/04/2014 H/O myocardial infarction, greater than 8 weeks*09/04/2014 Tobacco abuse [Z72.0] 09/04/2014 Obesity [E66.9] 09/04/2014 Status post insertion of drug-eluting stent int*11/17/2016 Non morbid obesity due to excess calories [E66.*11/17/2016 Obesity, Class III, BMI >= 40 [E66.01] 05/11/2023 Hypercholesteremia [E78.00] HTN (hypertension) [I10] Schizoaffective disorder, bipolar type (HCC) [F*09/10/2023 11/02/2023 Cocaine dependence in remission (HCC) [F14.21] 09/10/2023 Hypothyroidism [E03.9] Diabetes mellitus (HCC) [E11.9] Cataract, nuclear sclerotic, both eyes [H25.13] 10/23/2023 Hyperopia of both eyes [H52.03] 10/23/2023 Regular astigmatism of both eyes [H52.223] 10/23/2023 Presbyopia of both eyes [H52.4] 10/23/2023 Mood disorder (HCC) [F39] 11/02/2023 Acute systolic HF (heart failure) (HCC) [I50.21]04/13/2024 Acute on chronic systolic (congestive) heart fa*04/13/2024 04/15/2024 Atrial fib/flutter, transient (HCC) [I48.91, I4*04/14/2024 Mixed hyperlipidemia [E78.2] 04/14/2024 Morbid obesity (HCC) [E6 (more content not included)...[facility]08-13-2024 NoteHNO ID: [id number] Author: DENISE CORONADO RN Service: ? Author Type: Registered Nurse Type: Progress Notes Filed: 05/03/2024 15:45 Note Text: AG TRANSITIONAL CARE MANAGEMENT (TCM) FOLLOW-UP NOTE Provider Action/FYI: Patient identified by name and date of : YES Spoke to: patient Diagnosis: CHF Summary: Patient states that he is doing well. Patient reports blood pressure 127/80 this am and that he is taking all of his medications except for rosuvastatin. Patient then received another call and call disconnected. Patient attempted to return call, SN unable to answer. Return call to patient and patient weighed himself during call. Weight is 280. Reviewed importance of checking weight daily, after using the restroom prior to eating and drinking. Patient verbalized understanding. Patient discussed plans to begin walking/ swimming routinely. Reviewed CHF zones and encouraged patient to report any changes in symptoms. Patient verbalized understanding. Health leads screening tool questions performed? 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: Weights? 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 Patient reports blood pressure 127/80 this am and that he is taking all of his medications except for rosuvastatin. Patient then received another call and call disconnected. Patient attempted to return call, SN unable to answer. Return call to patient and patient weighed himself during call. Weight is 280. Reviewed importance of checking weight daily, after using the restroom prior to eating and drinking. Patient verbalized understanding. Patient discussed plans to begin walking/ swimming routinely. Reviewed CHF zones and encouraged patient to report any changes in symptoms. Patient verbalized understanding. Health leads screening tool questions performed? 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: Weights? 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 Patient reports blood pressure 127/80 this am and that he is taking all of his medications except for rosuvastatin. Patient then received another call and call disconnected. Patient attempted to return call, SN unable to answer. Return call to patient and patient weighed himself during call. Weight is 280. Reviewed importance of checking weight daily, after using the restroom prior to eating and drinking. Patient verbalized understanding. Patient discussed plans to begin walking/ swimming routinely. Reviewed CHF zones and encouraged patient to report any changes in symptoms. Patient verbalized understanding. Health leads screening tool questions performed? 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: Weights? 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 - dulaglutide (TRULICITY) 0.75 mg/0.5 mL pen injector Inject 0.75 mg subcutaneously one time a week. Monitor bs closely and keep food log - metFORMIN (GLUCOPHAGE) 1,000 mg tablet Take 1 tablet by mouth two times a day. - levothyroxine (SYNTHROID) 125 mcg tablet Take 1 tablet by mouth daily before breakfast. - metoprolol succinate ER (TOPROL XL) 25 mg 24 hr tablet Take 1 tablet by mouth once daily. - sacubitril-valsartan (ENTRESTO) 24-26 mg tablet Take 1 tablet by mouth two times a day. - apixaban (ELIQUIS) 5 mg tab(s) Take 1 tablet by mouth two times a day. - furosemide (LASIX) 40 mg tablet Take 1 tablet by mouth once daily. Patient should start on April 16, 2024. - magnesium, aluminum hydroxide (MYLANTA ORAL) Take 5 mL by mouth two times a day as needed (heartburn). - nystatin (MYCOSTATIN) 100,000 unit/mL suspension Take 100,000 Units by mouth four times daily. Swish and swallow. 5 ml 4times daily - empagliflozin (JARDIANCE) 10 mg tablet Take 1 tablet by mouth daily with breakfast. - mirtazapine (REMERON) 15 mg tablet Take 1 tablet by mouth daily at bedtime. - traZODone (DESYREL) 100 mg tablet Take 1 tablet by mouth daily at bedtime. - albuterol HFA (PROVENTIL HFA, VENTOLIN HFA) 90 mcg/actuation inhaler Inhale 2 Puffs as instructed every 4 hours as needed for wheezing/shortness of breath. - fluticasone (FLONASE) 50 mcg/actuation nasal spray Use 2 Sprays in each nostril once daily. - Insulin Whitman, Disposable, (PEN NEEDLE) 32 gauge x 5/32 Inject 1 Each subcutaneously every 24 hours. Give with each insulin administration. - Insulin Syringe-Needle U-100 0.5 mL 31 gauge x 5/16 Inject 1 Each subcutaneously every 24 hours. Give with each insulin administration. - aspirin, enteric coated (ADULT LOW DOSE ASPIRIN) 81 mg EC tablet Take 1 tablet by mouth once daily. - insulin glargine 100 unit/mL (3 mL) Inject 20 Units subcutaneously once daily. - rosuvastatin (CRESTOR) 10 mg tablet Take 1 tablet by mouth daily at bedtime. Meds Comments as of 10/23/2023: 10/23/23 The medications are managed by this patient by: PATIENT OPHELIA Crooks Problem List As Of Date 05/03/2024 Noted Resolved CAD (coronary artery disease) [I25.10] 09/04/2014 S/P coronary artery stent placement [Z95.5] 09/04/2014 Left bundle branch block (LBBB) on electrocardi*09/04/2014 H/O myocardial infarction, greater than 8 weeks*09/04/2014 Tobacco abuse [Z72.0] 09/04/2014 Obesity [E66.9] 09/04/2014 Status post insertion of drug-eluting stent int*11/17/2016 Non morbid obesity due to excess calories [E66.*11/17/2016 Obesity, Class III, BMI >= 40 [E66.01] 05/11/2023 Hypercholesteremia [E78.00] HTN (hypertension) [I10] Schizoaffective disorder, bipolar type (HCC) [F*09/10/2023 11/02/2023 Cocaine dependence in remission (HCC) [F14.21] 09/10/2023 Hypothyroidism [E03.9] Diabetes mellitus (HCC) [E11.9] Cataract, nuclear sclerotic, both eyes [H25.13] 10/23/2023 Hyperopia (more content not included)...[facility]08-09-2024 Telephone encounter Note* Telephone Encounter - Yan Zhao LPN - 04/29/2024 2:48 PM EDT Spoke with Mr Nash. Results and recommendations reviewed with pt per S Mac LOPEZ. Pt verbalizedunderstanding he will obtain labs. He will hold his Crestor for two weeks, then return call and advise of symptoms. He does reports he joined [employer] at the [facility] to start a water program. . Pt has no questions at this time. Yan Zhao LPN [facility]08-09-2024 Miscellaneous Notes* Telephone Encounter - Yan Paul LPN - 04/29/2024 2:48 PM EDT Spoke with Mr Nash. Results and recommendations reviewed with pt per S Mac LOPEZ. Pt verbalizedunderstanding he will obtain labs. He will hold his Crestor for two weeks, then return call and advise of symptoms. He does reports he joined [employer] at the [facility] to start a water program. . Pt has no questions at this time. Yan Zhao LPN * Telephone Encounter - Bhanu Edmondson APRN.CNP - 04/29/2024 2:20 PM EDT This is actually a patient of Dr Ponce that Dr Carrington saw in the hospital recently for progressive worsening shortness of breath and lower extremity edema. He was found to have an EF of 17%, heart catheterization revealed mild CAD with LAD stent with 20% ISR, RCA stent with mild ISR. He was started on GDMT with metoprolol XL, Jardiance and Entresto. Patient was recently in the heart failure clinic. There was some confusion and concerns about what medications he was actually taking. He was not taking the Entresto apparently because of leg cramps.He did have c/o of this while in the hospital, likely from the IV lasix. The medication list statesthat he is currently on lasix 40 mg daily. He does have outstanding lab work that he should complete to see if he has any electrolyte abnormalities. Ok to stop the rosuvastatin for a week to see if his symptoms resolve. He should be on cholesterol medication given his CAD and in-stent stenosis. If symptoms resolve off of this medication we will need to trial another medication. If symptoms do notresolve while off this medication, it should be restarted. Thanks Bhanu Edmondson APRN.JOHN * Telephone Encounter - Boo Kiran APRN.CNP - 04/29/2024 11:15 AM EDT Thank you Yan I only manage heart failure meds. I attached Bhanu since she is the next gen cards appointment * Telephone Encounter - Yan Zhao LPN - 04/29/2024 10:28 AM EDT Pt called in reports he has discontinued his Crestor due to sore muscles and muscle spasms in his legs. He has upcomming apts with the CHF clinic and Neva Edmondson CNP. Yan Zhao LPN documented in this encounterGu[facility]08-09-2024 Telephone encounter Note * Telephone Encounter - Bhanu Edmondson APRN.CNP - 04/29/2024 2:20 PM EDT This is actually a patient of Dr Ponce that Dr Carrington saw in the hospital recently for progressive worsening shortness of breath and lower extremity edema. He was found to have an EF of 17%, heart catheterization revealed mild CAD with LAD stent with 20% ISR, RCA stent with mild ISR. He was started on GDMT with metoprolol XL, Jardiance and Entresto. Patient was recently in the heart failure clinic. There was some confusion and concerns about what medications he was actually taking. He was not taking the Entresto apparently because of leg cramps.He did have c/o of this while in the hospital, likely from the IV lasix. The medication list statesthat he is currently on lasix 40 mg daily. He does have outstanding lab work that he should complete to see if he has any electrolyte abnormalities. Ok to stop the rosuvastatin for a week to see if his symptoms resolve. He should be on cholesterol medication given his CAD and in-stent stenosis. If symptoms resolve off of this medication we will need to trial another medication. If symptoms do notresolve while off this medication, it should be restarted. Thanks Bhanu Edmondson APRN.ELEMENTARY SUPERVISOR [facility]08-09-2024 Telephone encounter Note* Telephone Encounter - Josette Mcgee RN - 04/29/2024 12:59 PM EDT Review shows that this was never ordered and sent at time of your visit, therefore one was placed today. Thank you for your help! [facility]08-09-2024 Miscellaneous Notes* Telephone Encounter - Josette Mcgee RN - 04/29/2024 12:59 PM EDT Review shows that this was never ordered and sent at time of your visit, therefore one was placed today. Thank you for your help! * Telephone Encounter - Boo Kiran APRN.CNP - 04/29/2024 11:13 AM EDT Script was sent to [facility] in [place] at our visit Please let me know if this was the wrong pharmacy and please update epic if needed THanks * Telephone Encounter - Josette Mcgee RN - 04/29/2024 10:05 AM EDT Mr. Marsh contacted the [facility] regarding the need to have his new prescription sent to the pharmacy. Reviewed last office visit note and noted a recommendation to have patient start Spironolactone 25mg daily and to have blood work completed 2 weeks after start. Requesting for prescription documented in this encounterGuernsey [facility]08-09-2024 Telephone encounter Note * Telephone Encounter - Boo Kiran APRN.CNP - 04/29/2024 11:15 AM EDT Thank you Yan I only manage heart failure meds. I attached Bhanu since she is the next gen cards appointment [facility]08-09-2024 Telephone encounter Note* Telephone Encounter - Boo Kiran APRN.CNP - 04/29/2024 11:13 AM EDT Script was sent to [facility] in [place] at our visit Please let me know if this was the wrong pharmacy and please update epic if needed THanks [facility]08-09-2024 Telephone encounter Note* Telephone Encounter - Yan Paul LPN - 04/29/2024 10:28 AM EDT Pt called in reports he has discontinued his Crestor due to sore muscles and muscle spasms in his legs. He has upcomming apts with the CHF clinic and Neva Edomndson CNP. Yan Zhao LPN [facility]08-09-2024 Telephone encounter Note* Telephone Encounter - Josette Mcgee RN - 04/29/2024 10:05 AM EDT Mr. Marsh contacted the [facility] regarding the need to have his new prescription sent to the pharmacy. Reviewed last office visit note and noted a recommendation to have patient start Spironolactone 25mg daily and to have blood work completed 2 weeks after start. Requesting for prescription [facility]08-07-2024 Nurse Note* Cristobal Ames RN - 04/27/2024 4:26 PM EDT Patient presents to the [facility] for his initial visit. He has not yet received education. Ambulating independently on RA Medication updates noted in MAR Adherence with medications: unknown, very vague on meds, reports numerous side effects that he has googled, so he doesn't/t take some of them. Reports allergy to Metformin, yet it's listed on his medication list Weight at home: N/A Instructed on the importance of daily weight monitoring in the management of HFsymptoms. Weight in [facility]: 283 lbs/55 Previous [facility] visit: new Dietary Adherence: No [id number] further evaluated by Estella Kiran CNP. Recommendations received at this time and placed on the after visit summary. Reviewed with patient. Verbalized understanding. [id number] the importance of following a 500-650 mg per meal (1500- 2000 mg per day) sodium diet, 64 oz fluid restriction, label reading, medication adherence, increased activity, daily weights and follow up care. Heart Failure Zone sheet reviewed. Reminded patient of the signs/symptoms ofimpending CHF and when to call the [facility] for early intervention. Discussed home exercise (walking, bands, arm exercises) and home safety (no area rugs, get up slowly, no rushing to answer phone/door) guidelines. Encouraged him to increase activity as tolerated. Follow up in 1 month with RN per ELEMENTARY SUPERVISOR recommendation. [facility]08-07-20[facility] Nurse Note* Cristobal Ames RN - 04/27/2024 4:26 PM EDT Patient presents to the [facility] for his initial visit. He has not yet received education. Ambulating independently on RA Medication updates noted in MAR Adherence with medications: unknown, very vague on meds, reports numerous side effects that he has googled, so he doesn't/t take some of them. Reports allergy to Metformin, yet it's listed on his medication list Weight at home: N/A Instructed on the importance of daily weight monitoring in the management of HFsymptoms. Weight in [facility]: 283 lbs/55 Previous [facility] visit: new Dietary Adherence: No [id number] further evaluated by Estella Kiran CNP. Recommendations received at this time and placed on the after visit summary. Reviewed with patient. Verbalized understanding. [id number] the importance of following a 500-650 mg per meal (1500- 2000 mg per day) sodium diet, 64 oz fluid restriction, label reading, medication adherence, increased activity, daily weights and follow up care. Heart Failure Zone sheet reviewed. Reminded patient of the signs/symptoms ofimpending CHF and when to call the [facility] for early intervention. Discussed home exercise (walking, bands, arm exercises) and home safety (no area rugs, get up slowly, no rushing to answer phone/door) guidelines. Encouraged him to increase activity as tolerated. Follow up in 1 month with RN per ELEMENTARY SUPERVISOR recommendation. documented in this encounterGuernsey [facility]08-07-2024 Instructions* Patient Instructions* Boo Kiran APRN.JOHN - 04/27/2024 4:01 PM EDT Thank you for visiting the Heart Failure Clinic today. PLEASE CALL [phone] REGARDING MONITOR LOSS. START Aldactone 25mg daily OBTAIN Blood work in 2 weeks If you can't afford medicines call the office at [phone] Monitor blood pressure, heart rate, weights at home and bring the results with you to your next visit Please double check all of your medication bottles when you get home. Take all medications as prescribed Discuss with Primary care to have sleep apnea tested Read your food labels and watch for hidden sodium. Keep your sodium intake between 1500-2000mg daily/500-650 mg per meal. Continue to eat small, frequent meals. Try to include a form of protein with every meal. Keep your fluid intake at 48-64 ounces /day. Increase your activity as tolerated. Call the [facility] ([phone]) for AN APPOINTMENT (NO WALK-IN VISITS) if you have changes in symptoms or increase in weight of 3 lbs in one day or 5 lbs in a week. Thank you, Cristobal Ames RN documented in this encounterGuernsey [facility]08-07-2024 History of Present illness Narrative* Boo Kiran APRN.ELEMENTARY SUPERVISOR - 04/27/2024 3:45 PM EDT PRIMARY CARE PHYSICIAN: [address] [place] [address] Chief Complaint Patient presents with: CHF: First OV/needs educ HISTORY OF PRESENT ILLNESS: Mr. Marsh is a 58 year old male who is known to Dr. Ponce seen by Dr. Carrington with most recent hospitalization Patient has a significant history of CAD s/p remote OK with PCI to LAD in 2011, hypertension, hyperlipidemia, T2DM, ELBERT not on CPAP therapy, tobacco abuse and morbid obesity. Left heart cath 03/2024 mild coronary disease NM Stress -- Ejection fraction 03/2024 was 17% diastolic not evaluated due to AF Patient dry weight 299 when he went into the hospital Patient current weight 238lb Patient presented to [facility] 04/13/2024 with complaints of worsening shortness of breath and lower extremity edema x 6 weeks. Recent outpatient echocardiogram revealed LVEF of 17%, plan was for left heart catheterization which was scheduled for 04/15/2024. Patient had become more concerned with his worsening shortness of breath and presented to the ED for further evaluation. In ED, EKG showed atrial flutter with no acute ischemic changes. Cardiology was consulted and patient was evaluated by Dr. Carrington. He was recommended to undergo left heart catheterization which revealed mild CAD, LAD stent with 20% ISR, RCA stent with mild ISR. GDMT with metoprolol XL, Jardiance and Entresto. Patient's atrial fibrillation fluctuated between fib flutter normal sinus rhythm with AV block. Plan was Eliquis and a 2-week patch monitor upon discharge. Patient seen today as a new patient referral from primary care. Patient is extremely talkative flight of ideas needed reoriented multiple multiple times throughout our visit. He is however very pleasant he states he is willing to learn. Discussed heart failure in general many reasons that can cause it. Unfortunately patient has done cocaine in the past for multiple years from the early s to the mid , patient believes he has sleep apnea, patient has an absorbent amount of caffeine per day, patient has had high blood pressure in the past he states, CAD, atrial fibrillation, nicotine, spent time discussing each 1 of these items and how they relate to heart failure. Spent time discussing fluid and salt restrictions. Patient was given packets of information today. Unsure how much he retains due to the fact have to reorient him multiple times will need close follow-up and have this reinforced. With review of medication patient has been noncompliant. Patient gives multiple answers on each medication to different staff members myself and nurses of when he was actually taking them or not taking them. Patient states he googled his medications then gets nervous so he does not take them and then the next day he will take it. He has not taken his Entresto for approximately 3 days is what he told the nurse he told me he took the Entresto this morning. Completely unclear of what patient is actually doing with his medications. Long discussion today on the importance of GDMT. Reviewed each 1 added Aldactone today with follow-up blood work. At this time patient is agreeable to taking his GDMT heart medications with follow-up blood work. Will have close follow-up to continue to reinforce this. Patient is to begin weighing himself monitor his blood pressure and heart rate at home and share their issues results with us. At this time patient denies any cardiac complaints On exam rather benign however he has an extremely large abdomen slightly tight this could be harboring some fluid. Patient is currently drinking well over 64 ounces and eating well over 2000 mg of salt per day. At this time we will work on decreasing both fluid and salt intake continue the Lasix atcurrent dose close follow-up to see if we need to change the Lasix dosing. Pt denies chest pain, leg swelling, shortness of breath, heart palpitations, orthopnea, cough, fever, dizziness, near syncope or syncope, nausea, vomiting diaphoresis, or falls Reviewed with patient and adjusted as needed : PMH, PSH, Fam hx, Social hx, Allergies. Medications: Current Outpatient Medications Medication Sig Dispense Refill dulaglutide (TRULICITY) 0.75 mg/0.5 mL pen injector Inject 0.75 mg subcutaneously one time a week. Monitor bs closely and keep food log 6 mL 0 metFORMIN (GLUCOPHAGE) 1,000 mg tablet Take 1 tablet by mouth two times a day. 180 tablet 0 levothyroxine (SYNTHROID) 125 mcg tablet Take 1 tablet by mouth daily before breakfast. 90 tablet 0 metoprolol succinate ER (TOPROL XL) 25 mg 24 hr tablet Take 1 tablet by mouth once daily. 30 tablet2 furosemide (LASIX) 40 mg tablet Take 1 tablet by mouth once daily. Patient should start on March. 30 tablet 0 magnesium, aluminum hydroxide (MYLANTA ORAL) Take 5 mL by mouth two times a day as needed (heartburn). nystatin (MYCOSTATIN) 100,000 unit/mL suspension Take 100,000 Units by mouth four times daily. Swish and swallow. 5 ml 4times daily empagliflozin (JARDIANCE) 10 mg tablet Take 1 tablet by mouth daily with breakfast. 90 tablet 0 mirtazapine (REMERON) 15 mg tablet Take 1 tablet by mouth daily at bedtime. 30 tablet 2 traZODone (DESYREL) 100 mg tablet Take 1 tablet by mouth daily at bedtime. 30 tablet 2 fluticasone (FLONASE) 50 mcg/actuation nasal spray Use 2 Sprays in each nostril once daily. 18.2 mL0 Insulin Whitman, Disposable, (PEN NEEDLE) 32 gauge x 5/32 Inject 1 Each subcutaneously every 24 hours. Give with each insulin administration. 100 Each 1 Insulin Syringe-Needle U-100 0.5 mL 31 gauge x 5/16 Inject 1 Each subcutaneously every 24 hours. Give with each insulin administration. 100 Each 0 aspirin, enteric coated (ADULT LOW DOSE ASPIRIN) 81 mg EC tablet Take 1 tablet by mouth once daily.90 tablet 3 insulin glargine 100 unit/mL (3 mL) Inject 20 Units subcutaneously once daily. 9 mL 1 rosuvastatin (CRESTOR) 10 mg tablet Take 1 tablet by mouth daily at bedtime. 90 tablet 3 sacubitril-valsartan (ENTRESTO) 24-26 mg tablet Take 1 tablet by mouth two times a day. 60 tablet 0 apixaban (ELIQUIS) 5 mg tab(s) Take 1 tablet by mouth two times a day. 60 tablet 0 albuterol HFA (PROVENTIL HFA, VENTOLIN HFA) 90 mcg/actuation inhaler Inhale 2 Puffs as instructed every 4 hours as needed for wheezing/shortness of breath. (Patient not taking: Reported on 04/19/2024)6.7 g 0 No current facility-administered medications for this visit. Review of Systems Constitutional: Negative for activity change, appetite change, chills, fatigue and fever. HENT: Negative for ear discharge, nosebleeds and sinus pain. Eyes: Negative for discharge. Respiratory: Negative for apnea, cough, chest tightness, shortness of breath and wheezing. Cardiovascular: Negative for chest pain, palpitations and leg swelling. Gastrointestinal: Negative for abdominal distention, abdominal pain, anal bleeding, blood in stool,nausea and vomiting. Genitourinary: Negative for difficulty urinating. Musculoskeletal: Negative for gait problem. Skin: Negative. Neurological: Negative for dizziness, syncope, weakness and light-headedness. Hematological: Does not bruise/bleed easily. Psychiatric/Behavioral: Negative for confusion and sleep disturbance. The patient is hyperactive. Physical Examination: Vitals:BP 137/93 Pulse 87 Resp 22 Wt 283 lb (128.4kg) SpO2 94[RA]% Last 2 Encounter Wt Readings: Date: Wt: 04/13/2024 129.9 kg (286 lb 6 oz) 04/11/2024 134.3 kg (296 lb) Physical Exam Vitals and nursing note reviewed. Constitutional: General: He is not in acute distress. Appearance: Normal appearance. He is obese. He is not ill-appearing, toxic- appearing or diaphoretic. HENT: Head: Normocephalic. Nose: Nose normal. Eyes: General: Vision grossly intact. Extraocular Movements: Extraocular movements intact. Neck: Vascular: No carotid bruit, hepatojugular reflux or JVD. Trachea: No tracheal deviation. Cardiovascular: Rate and Rhythm: Normal rate and regular rhythm. Chest Wall: PMI is not displaced. Pulses: Normal pulses. Heart sounds: Normal heart sounds. No murmur heard. Pulmonary: Effort: Pulmonary effort is normal. No respiratory distress. Breath sounds: Normal breath sounds. Decreased air movement present. Comments: Sl dim overall bases --smoker Abdominal: General: Bowel sounds are normal. There is distension. Palpations: Abdomen is soft. Tenderness: There is no abdominal tenderness. Comments: Tight distended poss fluid retention Musculoskeletal: General: Normal range of motion. Cervical back: Normal range of motion and neck supple. Right lower leg: No edema. Left lower leg: No edema. Skin: General: Skin is warm and dry. Capillary Refill: Capillary refill takes less than 2 seconds. Coloration: Skin is not pale. Nails: There is no clubbing. Neurological: Mental Status: He is alert and oriented to person, place, and time. Cranial Nerves: No facial asymmetry. Motor: No weakness. Coordination: Coordination normal. Gait: Gait normal. Psychiatric: Attention and Perception: Attention normal. Mood and Affect: Mood normal. Behavior: Behavior normal. Thought Content: Thought content normal. Cognition and Memory: Memory normal. Judgment: Judgment normal. Prior Cardiac Testing Echocardiogram 03/2024 Impression CONCLUSIONS: - Technically difficult exam due to body habitus. - Exam indication: Initial evaluation of Heart Failure - The left ventricle is mildly dilated. There is mild concentric left ventricular hypertrophy. Left ventricular systolic function is severely decreased. EF = 17 5% (2D biplane) Definity contrast used for endocardial border detection. Left ventricular diastolic function was not evaluated due to AF. Severe diffuse hypokinesis - The right ventricle is dilated. Right ventricular systolic function is moderately decreased. - The left atrial cavity is mildly dilated. - The right atrial cavity is dilated. - The visualized aorta is dilated with a maximal dimension of 4.1 cm. - Estimated right ventricular systolic pressure is 56 mmHg consistent with moderate pulmonary hypertension. Estimated right atrial pressure is 15 mmHg based on IVC assessment. Tech limited study due to body habitus - The patient has not had a prior CC echocardiographic exam for comparison. Wall Motion: The entire anterior wall, entire lateral wall, entire septum, entire apex, and entire inferior wall are severely hypokinetic. Left heart cath 03/2024 Heart catheterization 04/14/2024 LEFT MAIN: Has mild disease. Divides into LAD and nondominant circumflex. LEFT CIRCUMFLEX: Has ostial 40% stenosis. LEFT ANTERIOR DESCENDING: Has mild diffuse disease throughout. There is a patent stent in the proximal LAD. The proximal stage of the stent has focal 20% stenosis. RIGHT CORONARY ARTERY: Has patent stent in the proximal portion. It has mild ISR. LEFT VENTRICULOGRAPHY: Mildly elevated at 17 mmHg. Impressions: He is a 58-year-old male with risk factors for CAD, known CAD, prior PCI to RCA and LAD, now presents with new onset cardiomyopathy and A-fib. His cardiac catheterization demonstrates mild disease incoronaries. No evidence of any critical disease in the left or the right coronary artery Assessment and Plan: ASSESSMENT/PLAN: 1. Chronic HFrEF (heart failure with reduced ejection fraction) (HCC) - ICD9: 428.22, ICD10: I50.22 NYHA II Patient denies any cardiac complaints however he is slight short of breath with conversation today and walking out of our office Pt currently denies shortness of breath, orthopnea, leg edema, fluid retention in abdomen or hips, increased fatigue --Reviewed diet 2mg sodium, 64oz fluid restriction< monitoring wts and calling the office if noticing a 3 pound weight gain in 2 days --Discussed foods to avoid such as canned foods, lunch meats, frozen meals, gomez, sausage, and restaurant meals. --cont to follow with the heart failure clinic 2 to 3 weeks to reinforce fluid salt restrictions medication compliance vital signs blood pressure heart rate weight -Continue : BB : Toprol 25mg daily BECKY/ARB/ARNI : Entresto 24/26mg --pt has not taken in 3 days will need blood pressure log for any possible titration patient has been asked to monitor blood pressure MRA : ADD Aldactone 25mg daily with blood work in 2 weeks patient plans to go to the [facility] to have this drawn SGLT2i : Jardiance Diuretic : Lasix 40mg daily --- did not increase with this visit due to plan to decrease fluid and salt restriction and reevaluate in close follow-up to see if this needs increased and/or changed also with the addition of Aldactone would like to see if he has had decreased fluid retention in his possible abdomen Hydralazine : no Isosorbide : no Boo Kiran APRN.CNP Plan: see chf plan above Follow up planning: Return in about 4 weeks (around 05/25/2024) for CHF Nurse. Medical Decision Making: Problems: Moderate: 2+ stable chronic illnesses Data: Unique source(s) for external note(s) reviewed: 2 Unique test result(s) reviewed: 2 Unique test(s) ordered: 1 Assessment requiring an independent historian(s) Risk: Moderate: Drug management and Moderate risk from testing/treatment Medical Decision Making Level: 4 - Moderate The above note was partially created using a dictation recognition software. A reasonable attempt has been made to correct any errors. I have confirmed and edited as necessary the [facility] and information obtained by others. Reviewed with patient to call with any routine questions arise, however patient developed increasing symptoms or symptoms became worse in severity made to call 911 and presented to the closest emergency department from urgent treatment. [facility] NoteHNO ID: [id number] Author: BOO KIRAN APRN.CNP Service: ? Author Type: Nurse Practitioner Type: Progress Notes Filed: 05/13/2024 07:55 Note Text: PRIMARY CARE PHYSICIAN: Duncan [address] [place] [address] Chief Complaint Patient presents with: CHF: First OV/needs educ HISTORY OF PRESENT ILLNESS: Mr. Marsh is a 58 year old male who is known to Dr. Ponce seen by Dr. Carrington with most recent hospitalization Patient has a significant history of CAD s/p remote OK with PCI to LAD in 2011, hypertension, hyperlipidemia, T2DM, ELBERT not on CPAP therapy, tobacco abuse and morbid obesity. Left heart cath 03/2024 mild coronary disease NM Stress -- Ejection fraction 03/2024 was 17% diastolic not evaluated due to AF Patient dry weight 299 when he went into the hospital Patient current weight 283lb ---ADDENDUM UPDATED THE WT CORRECTLY 05/13/2024 Patient presented to [facility] 04/13/2024 with complaints of worsening shortness of breath and lower extremity edema x 6 weeks. Recent outpatient echocardiogram revealed LVEF of 17%, plan was for left heart catheterization which was scheduled for 04/15/2024. Patient had become more concerned with his worsening shortness of breath and presented to the ED for further evaluation. In ED, EKG showed atrial flutter with no acute ischemic changes. Cardiology was consulted and patient was evaluated by Dr. Carrington. He was recommended to undergo left heart catheterization which revealed mild CAD, LAD stent with 20% ISR, RCA stent with mild ISR. GDMT with metoprolol XL, Jardiance and Entresto. Patient's atrial fibrillation fluctuated between fib flutter normal sinus rhythm with AV block. Plan was Eliquis and a 2-week patch monitor upon discharge. Patient seen today as a new patient referral from primary care. Patient is extremely talkative flight of ideas needed reoriented multiple multiple times throughout our visit. He is however very pleasant he states he is willing to learn. Discussed heart failure in general many reasons that can cause it. Unfortunately patient has done cocaine in the past for multiple years from the early 90s to the mid s, patient believes he has sleep apnea, patient has an absorbent amount of caffeine per day, patient has had high blood pressure in the past he states, CAD, atrial fibrillation, nicotine, spent time discussing each 1 of these items and how they relate to heart failure. Spent time discussing fluid and salt restrictions. Patient was given packets of information today. Unsure how much he retains due to the fact have to reorient him multiple times will need close follow-up and have this reinforced. With review of medication patient has been noncompliant. Patient gives multiple answers on each medication to different staff members myself and nurses of when he was actually taking them or not taking them. Patient states he googled his medications then gets nervous so he does not take them and then the next day he will take it. He has not taken his Entresto for approximately 3 days is what he told the nurse he told me he took the Entresto this morning. Completely unclear of what patient is actually doing with his medications. Long discussion today on the importance of GDMT. Reviewed each 1 added Aldactone today with follow-up blood work. At this time patient is agreeable to taking his GDMT heart medications with follow-up blood work. Will have close follow-up to continue toreinforce this. Patient is to begin weighing himself monitor his blood pressure and heart rate at home and share their issues results with us. At this time patient denies any cardiac complaints On exam rather benign however he has an extremely large abdomen slightly tight this could be harboring some fluid. Patient is currently drinking well over 64 ounces and eating well over 2000 mg of salt per day. At this time we will work on decreasing both fluid and salt intake continue the Lasix at current dose close follow-up to see if we need to change the Lasix dosing. Pt denies chest pain, leg swelling, shortness of breath, heart palpitations, orthopnea, cough, fever, dizziness, near syncope or syncope, nausea, vomiting diaphoresis, or falls Reviewed with patient and adjusted as needed : PMH, PSH, Fam hx, Social hx, Allergies. Medications: Current Outpatient Medications Medication Sig Dispense Refill dulaglutide (TRULICITY) 0.75 mg/0.5 mL pen injector Inject 0.75 mg subcutaneously one time a week. Monitor bs closely and keep food log 6 mL 0 metFORMIN (GLUCOPHAGE) 1,000 mg tablet Take 1 tablet by mouth two times a day. 180 tablet 0 levothyroxine (SYNTHROID) 125 mcg tablet Take 1 tablet by mouth daily before breakfast. 90 tablet 0 metoprolol succinate ER (TOPROL XL) 25 mg 24 hr tablet Take 1 tablet by mouth once daily. 30 tablet 2 furosemide (LASIX) 40 mg tablet Take 1 (more content not included)...[facility]08-06-2024 NoteHNO ID: [id number] Author: DENISE CORONADO, SUZAN Service: ? Author Type: Registered Nurse Type: Progress Notes Filed: 04/28/2024 16:48 Note Text: AG TRANSITIONAL CARE MANAGEMENT (TCM) FOLLOW-UP NOTE Provider Action/FYI: Patient reports that he stopped taking metformin as he felt this was causing tongue swelling, redness and thrush. Patient states that symptoms have improved when medication was stopped. Denise Coronado RN Patient identified by name and date of : YES Spoke to: patient Diagnosis: CHF Summary: Patient reports that he is doing well. Patient is monitoring sodium intake. Reviewed low sodium diet, monitoring fluid intake, daily weights and encouraged patient to report any changes in symptoms. Patient verbalized understanding. Patient obtained a new blood pressure cuff from the [place] and is monitoring blood pressure. Patient has not been monitoring daily weights. Reviewed importance of obtaining daily weights and encouraged patient to report 2-3 lb gain in 1 day or 3-5 lb gain in 1 week. Patient verbalized understanding. Patient states that he is taking his medications as instructed. Patient is concerned that metformin is causing swelling of tongue, redness, and thrush. Patient reports that he stopped taking, will send message to provider. Reviewed CHF clinic appointment 04/27. Health leads screening tool questions performed? 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 Patient states that symptoms have improved when medication was stopped. Denise Coronado RN Patient identified by name and date of : YES Spoke to: patient Diagnosis: CHF Summary: Patient reports that he is doing well. Patient is monitoring sodium intake. Reviewed low sodium diet, monitoring fluid intake, daily weights and encouraged patient to report any changes in symptoms. Patient verbalized understanding. Patient obtained a new blood pressure cuff from the [place] and is monitoring blood pressure. Patient has not been monitoring daily weights. Reviewed importance of obtaining daily weights and encouraged patient to report 2-3 lb gain in 1 day or 3-5 lb gain in 1 week. Patient verbalized understanding. Patient states that he is taking his medications as instructed. Patient is concerned that metformin is causing swelling of tongue, redness, and thrush. Patient reports that he stopped taking, will send message to provider. Reviewed CHF clinic appointment 04/27. Health leads screening tool questions performed? 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 Patient states that symptoms have improved when medication was stopped. Denise Coronado RN Patient identified by name and date of : YES Spoke to: patient Diagnosis: CHF Summary: Patient reports that he is doing well. Patient is monitoring sodium intake. Reviewed low sodium diet, monitoring fluid intake, daily weights and encouraged patient to report any changes in symptoms. Patient verbalized understanding. [facility] and is monitoring blood pressure. Patient has not been monitoring daily weights. Reviewed importance of obtaining daily weights and encouraged patient to report 2-3 lb gain in 1 day or 3-5 lb gain in 1 week. Patient verbalized understanding. Patient states that he is taking his medications as instructed. Patient is concerned that metformin is causing swelling of tongue, redness, and thrush. Patient reports that he stopped taking, will send message to provider. Reviewed CHF clinic appointment 04/27. Health leads screening tool questions performed? 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 Will closely monitor A1c over the next several months - patient is due for screening now, as such order placed. Gavin Betancur DO 05/10/2024 1:11 PM Signed Addended by: GAVIN BETANCUR on: 05/10/2024 01:11 PM Modules accepted: Orders Allergies As of Date: 04/26/2024 Noted Allergy Reaction AMOXICILLIN-POT CLAVULANATE 12/23/2023 10 - Anaphylaxis 7 - Swelling METFORMIN 04/26/2023 6 - Diarrhea LISINOPRIL 04/24/2023 3 - Cough SULFAMETHOXAZOLE-TRIMETHOPRIM 10/20/2009 2 - Rash 4 - Hives 7 - Swelling Date Reviewed: 04/13/2024 Reviewed by: Chalo Workman MD - Fully Assessed Reason for Visit: Transition Of Care [4074] Cmt: TCM follow up call Primary Visit Diagnosis:Type 2 diabetes mellitus treated without insulin (HCC) [E11.9] Order(s):HEMOGLOBIN A1C [VRLTD1B] Order #: [id number] FUTURE Prescriptions as of 05/10/2024 - spironolactone (ALDACTONE) 25 mg tablet Take 1 tablet by mouth once daily. - dulaglutide (TRULICITY) 0.75 mg/0.5 mL pen injector Inject 0.75 mg subcutaneously one time a week. Monitor bs closely and keep food log - metFORMIN (GLUCOPHAGE) 1,000 mg tablet Take 1 tablet by mouth two times a day. - levothyroxine (SYNTHROID) 125 mcg tablet Take 1 tablet by mouth daily before breakfast. - metoprolol succinate ER (TOPROL XL) 25 mg 24 hr tablet Take 1 tablet by mouth once daily. - sacubitril-valsartan (ENTRESTO) 24-26 mg tablet Take 1 tablet by mouth two times a day. - apixaban (ELIQUIS) 5 mg tab(s) Take 1 tablet by mouth two times a day. - furosemide (LASIX) 40 mg tablet Take 1 tablet by mouth once daily. Patient should start on April 16, 2024. - magnesium, aluminum hydroxide (MYLANTA ORAL) Take 5 mL by mouth two times a day as needed (heartburn). - nystatin (MYCOSTATIN) 100,000 unit/mL suspension Take 100,000 Units by mouth four times daily. Swish and swallow. 5 ml 4times daily - empagliflozin (JARDIANCE) 10 mg tablet Take 1 tablet by mouth daily with breakfast. - mirtazapine (REMERON) 15 mg tablet Take 1 tablet by mouth daily at bedtime. - albuterol HFA (PROVENTIL HFA, VENTOLIN HFA) 90 mcg/actuation inhaler Inhale 2 Puffs as instructed every 4 hours as needed for wheezing/shortness of breath. - Insulin Whitman, Disposable, (PEN NEEDLE) 32 gauge x 5/32 Inject 1 Each subcutaneously every 24 hours. Give with each insulin administration. - Insulin Syringe-Needle U-100 0.5 mL 31 gauge x 5/16 Inject 1 Each subcutaneously every 24 hours. Give with each insulin administration. - aspirin, enteric coated (ADULT LOW DOSE ASPIRIN) 81 mg EC tablet Take 1 tablet by mouth once daily. - insulin glargine 100 unit/mL (3 mL) Inject 20 Units subcutaneously once daily. - rosuvastatin (CRESTOR) 10 mg tablet Take 1 tablet by mouth daily at bedtime. Meds Comments as of 10/23/2023: 10/23/23 The medications are managed by this patient by: PATIENT Calixto OPHELIA Latif Problem List As Of Date 04/26/2024 Noted Resolved CAD (coronary artery disease) [I25.10] 09/04/2014 S/P coronary artery stent placement [Z (more content not included)...[facility]08-01-2024 NoteHNO ID: [id number] Author: DUNCAN CRAVEN MD Service: ? Author Type: Physician Type: Progress Notes Filed: 04/21/2024 16:31 Note Text: Acknowledged.[facility]07-30-2024 NoteHNO ID: [id number] Author: HOMA PERDUE RN Service: ? Author Type: Registered Nurse Type: Progress Notes Filed: 04/19/2024 14:02 Note Text: TRANSITIONAL CARE MANAGEMENT (TCM) COMMUNITY MONITORING PROGRAM - [place] Provider Action/FYI: Patient reports he has started to make diet changes, decrease sodium, and water intake. Patient reports he is going to start walking for exercise. Patient reports he is monitoring daily weights. SUMMARY: Pt discharged from [facility] on 04/15/24. Admitted for: Syncope Patient seen Inpatient SARAY Visit? No. Patient seen ICA Program? No. Contact made with patient: Yes Hi my name is Homa Perdue RN and I am calling from the [facility] on behalf of your PCP, Duncan Craven MD I understand you were recently in the hospital so I am calling to check in with you to ensure you are feeling well now that you?re home. Do you mind if I ask you a few questions related to your hospital stay and well-being Yes Contact with patient post discharge, spoke to patient. Patient identified by name and . Do you feel your health is BETTER, WORSE, or the SAME since leaving the hospital? Better ACTION TAKEN: Patient indicated symptoms are better or same, no action required. Continue outreach. N/A MEDICATIONS: Many patients have questions or concerns about their medications once they are home. Do you have any questions about taking your medications or which medication you should be on? No Do you need any medication refills at this time, including any of the medications you might take only when needed? No ACTION TAKEN: No action required For RNs or Pharmacy completing outreach ONLY, was a medication review completed? No, completed by TCM pharmacist in previous encounter. SOCIAL: We would like to make sure you have what you need so that your basics needs are met - including your personal safety. HEALTH LEADS SCREENING TOOL QUESTIONS: Do you often feel you lack companionship? No Do you ever need help reading or understanding hospital materials? No In the last 12 months, have you changed how you take medications to save money? No In the past 12 months, has lack of transportation kept you from medical appointments, work or getting things you need like food, or supplies? No In the last 12 months, did you ever eat less than you felt you should because there wasn't enough money for food? No During the winter, do you anticipate having a problem paying your heating bill? No In the next 2 months, are you worried you might not have stable housing? No Would you like to speak with a social work freight team associate to help give you support for any of these needs? No It can be normal to feel anxious or down during a time like this. Would you like to talk to a mental health professional about how you have been feeling? No ACTION TAKEN: No action taken DISCHARGE INTRUCTIONS: Your discharge instructions / After Visit Summary (AVS) are important in guiding you through the recovery process. Do you have any questions related to your discharge instructions? No Do you have all the necessary equipment and supplies at home? Yes ACTION TAKEN: No action required WRAP AROUND SERVICES: N/A Patient educated on importance of primary care provider follow up visit as well as specialty provider follow up visits as indicated. Inform the patient that if they have any questions or concerns prior to that appointment, to call their Primary Care Provider 's office right away. Primary care provider first education provided. I would like to help you schedule a hospital follow-up virtual or telephone visit with your PCP. ACTION TAKEN: TCM Primary Care Provider Visit Scheduled: Yes - Appt date: 04/19/24 with PCP Your doctor would like us to remind you of the recommendations regarding the coronavirus (Covid19) outbreak: Avoid public places as much as possible. Avoid close contact (within 6 feet) with others you don't live with, especially if they are sick. Stay home if you are sick. Wash your hands regularly for at least 20 seconds with soap and water. Wear a cloth mask in public places to help reduce community spread. Do not go to your Doctor's office unless instructed to do so. For any non-emergency symptoms, call your Doctor's office to get instructions on how to manage (we might recommend a telephone or virtual visit). For emergency symptoms, proceed to Emergency Department as usual but inform them of cough and fever symptoms LEN if present (or call on the way if possible).[facility]07-30-2024 History of Present illness Narrative* Homa Perdue RN - 04/19/2024 1:47 PM EDT TRANSITIONAL CARE MANAGEMENT (TCM) COMMUNITY MONITORING PROGRAM - [place] Provider Action/FYI: Patient reports he has started to make diet changes, decrease sodium, and water intake. Patient reports he is going to start walking for exercise. Patient reports he is monitoring daily weights. SUMMARY: Pt discharged from [facility] on 04/15/24. Admitted for: Syncope Patient seen Inpatient SARAY Visit? No. Patient seen ICARE Program? No. Contact made with patient: Yes Hi my name is Homa Perdue RN and I am calling from the [facility] on behalf of your PCP, Duncan Craven MD I understand you were recently in the hospital so [facility] you to ensure you are feeling well now that you re home. Do you mind if I ask you a few questions related to your hospital stay and well-being Yes Contact with patient post discharge, spoke to patient. Patient identified by name and . Do you feel your health is BETTER, WORSE, or the SAME since leaving the hospital? Better ACTION TAKEN: Patient indicated symptoms are better or same, no action required. Continue outreach. N/A MEDICATIONS: Many patients have questions or concerns about their medications once they are home. Do you have any questions about taking your medications or which medication you should be on? No Do you need any medication refills at this time, including any of the medications you might take only when needed? No ACTION TAKEN: No action required For RNs or Pharmacy completing outreach ONLY, was a medication review completed? No, completed by TCM pharmacist in previous encounter. SOCIAL: We would like to make sure you have what you need so that your basics needs are met - including your personal safety. HEALTH LEADS SCREENING TOOL QUESTIONS: Do you often feel you lack companionship? No Do you ever need help reading or understanding hospital materials? No In the last 12 months, have you changed how you take medications to save money? No In the past 12 months, has lack of transportation kept you from medical appointments, work or getting things you need like food, or supplies? No In the last 12 months, did you ever eat less than you felt you should because there wasn't enough money for food? No During the winter, do you anticipate having a problem paying your heating bill? No In the next 2 months, are you worried you might not have stable housing? No Would you like to speak with a social work freight team associate to help give you support for any of these needs? No It can be normal to feel anxious or down during a time like this. Would you like to talk to a mental health professional about how you have been feeling? No ACTION TAKEN: No action taken DISCHARGE INTRUCTIONS: Your discharge instructions / After Visit Summary (AVS) are important in guiding you through the recovery process. Do you have any questions related to your discharge instructions? No Do you have all the necessary equipment and supplies at home? Yes ACTION TAKEN: No action required WRAP AROUND SERVICES: N/A Patient educated on importance of primary care provider follow up visit as well as specialty provider follow up visits as indicated. Inform the patient that if they have any questions or concerns prior to that appointment, to call their Primary Care Provider 's office right away. Primary care provider first education provided. I would like to help you schedule a hospital follow-up virtual or telephone visit with your PCP. ACTION TAKEN: TCM Primary Care Provider Visit Scheduled: Yes - Appt date: 04/19/24 with PCP Your doctor would like us to remind you of the recommendations regarding the coronavirus (Covid19) outbreak: Avoid public places as much as possible. Avoid close contact (within 6 feet) with others you don't live with, especially if they are sick. Stay home if you are sick. Wash your hands regularly for at least 20 seconds with soap and water. Wear a cloth mask in public places to help reduce community spread. Do not go to your Doctor's office unless instructed to do so. For any non- emergency symptoms, call your Doctor's office to get instructions on how to manage (we might recommend a telephone or virtualvisit). For emergency symptoms, proceed to Emergency Department as usual but inform them of cough and fever symptoms LEN if present (or call on the way if possible). documented [facility] NoteHNO ID: [id number] Author: DUNCAN CRAVEN MD Service: ? Author Type: Physician Type: Progress Notes Filed: 04/19/2024 13:39 Note Text: Attending Note I discussed with resident on 04/19/2024. The patient was not examined by the attending. I reviewed the resident's note. I agree with the resident's assessment and plan unless otherwise noted. Signature: Duncan Craven MD Date: 04/19/2024 Time: 1:39 [facility]07-30-2024 History of Present illness Narrative* Duncan Craven MD - 04/19/2024 1:39 PM EDT Attending Note I discussed with resident on 04/19/2024. The patient was not examined by the attending. I reviewed the resident's note. I agree with the resident's assessment and plan unless otherwise noted. Signature: Duncan Craven MD Date: 04/19/2024 Time: 1:39 PM * Antonia Case MD - 04/19/2024 9:31 AM EDT Transitional Care Management TCM Eligibility Documentation Program: Transitional Care Management Status: Identified Start Date: 04/15/2024 Responsible Staff: Homa Perdue RN Discharge date: 04/15/2024 (Program start) Date of initial contact: Initial contact Target status: Not completed Summary Discharged from: [facility] Admit Date: 04/13/24 Admitted for: 04/15/24 Antonia Case MD Provider Documentation Venkat Marsh is a 58 year old male here today for a follow up to recent hospitalization. I have reviewed the patient's hospital course including diagnostic testing performed during this hospitalization, their discharge medications, and my assessment and plan with the patient and any family members present at today's visit. HPI: The patient with PMHxx of bipolar disorder, CAD, diabetes, HTN, atria lflutter, and hypothyroidism was admitted for new diagosisi of heart failure with reduced ejection fraction (17%). He received a LHC and was treated with diuresis and advacnment of his GDMT. He reported feeling significantly bettereven though he has not started his hospital discharge medications. He said [place] and [place] not have access to his medications to review them. He was advised of thehigh importance of following his new medicaiton regimen. He was told to get a pill box with his hospital discharge and fill up the pill boxes carefully with his friend to ensure that everything is put in correctly. He is advised the importance of adhering to the new medication and discontinuing theprevious medication. Patient does report that he has been taking his insulin as prescribed. When asked about new medications such as Eliquis and Entresto, patient is not aware of these medications but believes that he has them in his bag of medications from the hospital that he he says he will begin to use. Denies importance of stopping the losartan when beginning the Entresto. He does say that he is more concerned about his physical health since his hospitalization has altered his diet including adding more salads and reducing his intake of processed meats. He is reminded of his upcoming appointments with his telegraphic typewriter mechanic and heart failure clinic and advised to attend these appointments. He denies any current chest pain, palpitations, headache, nausea, leg pain. Patient does endorse someleg swelling but it has been improved since before the hospitalization. Review of Systems Constitutional: Negative for chills and fever. Respiratory: Negative for cough, shortness of breath and wheezing. Cardiovascular: Positive for leg swelling. Negative for chest pain, palpitations and claudication. Gastrointestinal: Negative for abdominal pain, diarrhea, nausea and vomiting. Genitourinary: Negative for dysuria. Neurological: Negative for dizziness. Vitals There were no vitals taken for this visit. Physical Exam Vitals reviewed: Not performed; telephone encounter. ASSESSMENT/PLAN: 1. Chronic systolic CHF (congestive heart failure) (HCC) - ICD9: 428.22, 428.0, ICD10: I50.22 - BASIC METABOLIC PANEL already ordered -Patient advised to double check that he is taking medications prescribed at discharge and discontinuing those that are discontinued. At time of home conversation patient was still taking previous medications. -Patient advised to use pillbox and assistance in medication adherence - Patient advised to continue diet with avoiding sodium -Given dates and times of upcoming appointments with cardiology and heart failure clinic and advised the importance of following up with these 2. Typical atrial flutter (HCC) - ICD9: 427.32, ICD10: I48.3 --Patient has not been taking Eliquis as prescribed upon discharge. Patient believes he likely has this medication in his bag on open medications Antonia Case April 19, 2024 9:31 AM documented in this [facility]Gu[facility]-30-[facility] History of Present illness Narrative* Boo Kiran APRN.ELEMENTARY SUPERVISOR - 04/19/2024 12:42 PM EDT I am not legally part of patient's care until I meet him in April. You will need to send this to one of the providers --primary care or cardiology --that have met this patient. From a cardiology standpoint per epic has been Dr. Kris's patient Bhanu Mac nurse practitioner and Dr. Carrington has seen the patient in the hospital. Thank you * Logan Cameron, [facility] - 04/18/2024 11:19 AM EDT TRANSITION CARE MANAGEMENT (TCM) HEART FAILURE PHARMACY CONTACT Provider Action/FYI: TCM Medication Reconciliation completed for patient. See medication list table below for details. ACTION REQUIRED: Metoprolol stopped on discharge should this be continued? Metoprolol succinate 25 mg daily was on inpatient prior to discharge - messaged to clarify - per Cardiology this should be continued, added back to list - patient only has tartrate and will need a new Rx for metoprolol succinate - pended Rx Heart monitor fell off and threw away - patient is not sure what to do or if he needs a new one - please advise Patient does not have his new medications with him but he will open the bag and start when he gets home today. Only able to briefly able to go through medications, would recommend more detailed education on new medications (Eliquis, Entresto, and Crestor). Patient states albuterol HFA causes more SOB after use and therefore the patient refuses to use. Unclear if allergic like reaction or possibly anxiety driven - recommended to discuss with PCP on follow up Patient has 2 pens of Trulicity left and will need a refill soon - pended Rx to PCP Patient currently has nystatin on his med list for thrush treatment. Per patient he continues to have issues with thrush but unclear duration of therapy since Rx not linked? Please advise Patient Workup: HF medication classes present on medication list: BECKY/ARB/ARNI YES - sacubitril-valsartan Beta rebecca NO - restart Aldosterone antagonist NO SGLT2i YES - empagliflozin Hydralazine/Isosorbide NO Ivabradine NO Loop diuretics YES - furosemide Digoxin NO New HF medication class(es) added this admission: Yes, ARNI (Patient to be counseled on new medications if full medication review completed) Last documented LVEF: LV Ejection Fraction (%) Date Value 04/12/2024 17 Last documented weight: Last Wt 04/15/24 129.9 kg (286 lb 6 oz) Patient was sent a message via [employer] including the link to the [facility] education video: No CHF clinic referral placed inpatient Initial contact with patient post discharge, spoke to patient, and verified that any applicable caregiver is active in patient's medical care. Patient identified by name and . Summary: -Pt discharged from [facility] on 04/15/24. -Medication review done Full medication review completed Patient Concerns: none ROS: Denies new or worsening shortness of breath at rest and on exertion (orthopnea, PND, bendopnea, wheezing/coughing). Denies new or worsening symptoms of edema (abdominal, early satiety, lower extremity, or abnormal weight gain). Denies new or worsening CP, palpitations, ANTOINE, blurred vision. Denies new or worsening dizziness, lightheadedness, syncope. Denies new or worsening N/V, diarrhea, abdominal pain. Denies potential medication adverse effects. Red flag symptom(s) identified during call: No VITALS and WEIGHT HOME MONITORING: Patient does have BP monitor at home, most recent home BP/HR: 120/80 . Patient took meds this A.M. Patient does have scale at home, most recent home weight: No. Does not have scale with him right now - reviewed monitoring for weight gain and when to call History of Present Illness: The following content has been copied and pasted from patient's discharge summary. If discharge summary unavailable, After Visit Summary or last pertinent inpatient notes are copied and pasted. 58 year old male with hx of bipolar disorder, CAD, diabetes, HTN, HL, and hypothyroidism who presents with 6 weeks of worsening shortness of breath. He finally had an echocardiogram after putting ifoff for a year and found out that his EF was 17%. Principal Problem: Acute systolic and diastolic HF with EF 17% -- heart cath 04/14 GDMT - jemal meraz. Metoprolol, dapagliflozin and lasix Hypokalemia - resolved Atrial flutter On eliquis now Currently rate controlled Continued to monitor on tele Diabetes uncontrolled. -- Improve glucose control outpatient Hypothyroidism -- continue Synthroid-- TSH 3.680 HL -- continue statin Medication Reconciliation: Legend: Stopped, New, Changed, Added to list Medication List Medication Directions Comments Action/Plan albuterol HFA (PROVENTIL HFA, VENTOLIN HFA) 90 mcg/actuation inhaler Inhale 2 Puffs as instructed every 4 hours as needed for wheezing/shortness of breath. 03/29/24 8.5g Doesn't like to use Feels SOB apixaban (ELIQUIS) 5 mg tab(s) Take 1 tablet by mouth two times a day. [facility] 04/15/24 #60/30ds New Afib Has at home - will start this afternoon Counseled on indication, administration and SE Reviewed importance of medication aspirin, enteric coated (ADULT LOW DOSE ASPIRIN) 81 mg EC tablet Take 1 tablet by mouth once daily. 01/25/24 90ds Taking as prescribed without any issues benzonatate (TESSALON PERLE) 100 mg capsule Take 100 mg by mouth three times a day as needed for cough. Does not have Remove - patient threw away dulaglutide (TRULICITY) 0.75 mg/0.5 mL pen injector Inject 0.75 mg subcutaneously one time a week. Monitor bs closely and keep food log 02/04/24 6mL Taking as prescribed without any issues Thursday 2 pens left will need refill empagliflozin (JARDIANCE) 10 mg tablet Take 1 tablet by mouth daily with breakfast. Taking as prescribed without any issues 03/21/24 90ds fluticasone (FLONASE) 50 mcg/actuation nasal spray Use 2 Sprays in each nostril once daily. 01/25/24 16g Taking PRN furosemide (LASIX) 40 mg tablet Take 1 tablet by mouth once daily. Patient should start on March. [facility] 04/15/24 30ds 40mg Increased 20mg to 40mg Has at home - will start this afternoon Needs to open new bag Reviewed dose and taking in the AM Counseled on indication, administration and SE Discontinued: 04/15/2024 10:21 AM 01/25/24 #30/10ds stop Still had with meds - discussed stopping due to DDI with apixaban - patient threw away bottle insulin glargine 100 unit/mL (3 mL) Inject 20 Units subcutaneously once daily. Taking as prescribedwithout any issues 01/29/24 9mL Insulin Whitman, Disposable, (PEN NEEDLE) 32 gauge x 5/32 Inject 1 Each subcutaneously every 24 hours. Give with each insulin administration. Insulin Syringe-Needle U-100 0.5 mL 31 gauge x /16 Inject 1 Each subcutaneously every 24 hours. Give with each insulin administration. levothyroxine (SYNTHROID) 125 mcg tablet Take 1 tablet by mouth daily before breakfast. Taking as prescribed without any issues 01/25/24 90ds TSH Date Value Ref Range Status 04/13/2024 3.680 0.270 - 4.200 mIU/L Final Reviewed when/how to take medication Discontinued: 04/15/2024 10:21 AM 01/25/24 #180/90ds magnesium, aluminum hydroxide (MYLANTA ORAL) Take 5 mL by mouth two times a day as needed (heartburn). PRN metFORMIN (GLUCOPHAGE) 1,000 mg tablet Take 1 tablet by mouth two times a day. Taking as prescribedwithout any issues 01/25/24 #180/90ds No SE issues per patient Metoprolol succinate ER (TOPROL XL) 25 mg 24 hr tablet Take 1 tablet by mouth once daily Needs a new Rx [facility] Added back to med list Send Rx to [facility] - pended Rx Discussed in detail between tartrate and succinate Aware not on d/c med list but need to be added back Discontinued: 04/15/2024 10:21 AM 02/03/24 90ds Patient did not have Discontinued: 04/15/2024 10:21 AM 01/25/24 90ds Patient threw away mirtazapine (REMERON) 15 mg tablet Take 1 tablet by mouth daily at bedtime. Taking as prescribed without any issues 03/31/24 30ds Discontinued: 04/15/2024 10:21 AM OTC nystatin (MYCOSTATIN) 100,000 unit/mL suspension Take 100,000 Units by mouth four times daily. Swish and swallow. 5 ml 4times daily 03/29/24 140mL Taking as prescribed without any issues Still using - still having issues with thrush Unclear duration of treatment Discontinued: 04/15/2024 10:21 AM 03/29/24 #12/4ds rosuvastatin (CRESTOR) 10 mg tablet Take 1 tablet by mouth daily at bedtime. 04/13/24 90ds Has at home - will start this afternoon Counseled on indication, administration and SE sacubitril-valsartan (ENTRESTO) 24-26 mg tablet Take 1 tablet by mouth two times a day. [facility] 04/15/24 #60/30ds Has at home - will start this afternoon 120/80 today - will continue to monitor Counseled on indication, administration and SE traZODone (DESYREL) 100 mg tablet Take 1 tablet by mouth daily at bedtime. Taking as prescribed without any issues Lf 03/31/24 30ds Preferred pharmacy: [facility] [place], [place] - [place] [address] - [address] - [phone] [address] [facility] [address] e- [facility]/pharmacy #[id number] [place] [address] - [address] - [phone] [place] [id number] [facility] [address] [id number] - [place] [phone] - [address] [facility] - [phone] [address] [address] [place] [phone] [facility] [address] [place] [address] Estimated Creatinine Clearance: 68.8 mL/min (A) (based on SCr of 1.48 mg/dL (H)). Estimated Glomerular Filtration Rate (mL/min/1.73m ) Date Value 04/15/2024 54 (L) eGFR- (no units) Date Value 08/24/2014 >60 Additional follow up: Next 5 Appointments Date and Time Provider Department Dept Phone 04/19/2024 9:00 AM Antonia Case [facility] [phone] 04/27/2024 3:45 PM 3, Nurse Card Chf; Boo Kiran [facility] [phone] 05/06/2024 11:00 AM Yuliet Fong [facility] [phone] Interventions Made: Patient education/Medication counseling, Adherence counseling, and Medication access issue resolved Pharmacist Recommendations Made None Care Coordination: Prescription order pended for review and approval by provider, Medication clarification obtained from provider, and Escalated to specialist provider Time spent on patient: 45-60 minutes Logan Cameron RPh April 18, 2024 11:20 AM documented in this encounterGuern[facility] Memorial [facility] NoteHNO ID: [id number] Author: BOO KIRAN APRN.CNP Service: ? Author Type: Nurse Practitioner Type: Progress Notes Filed: 04/19/2024 12:42 Note Text: I am not legally part of patient's care until I meet him in April. You will need to send this to one of the providers --primary care or cardiology --that have met this patient. From a cardiology standpoint per epic has been Dr. Ponce's patient Bhanu Edmondson nurse practitioner and Dr. Carrington has seen the patient in the hospital. [facility] NoteHNO ID: [id number] Author: ANTONIA CASE MD Service: ? Author Type: Resident Type: Progress Notes Filed: 04/19/2024 11:57 Note Text: Transitional Care Management TCM Eligibility Documentation Program: Transitional Care Management Status: Identified Start Date: 04/15/2024 Responsible Staff: Homa Perdue RN Discharge date: 04/15/2024 (Program start) Date of initial contact: Initial contact Target status: Not completed Summary Discharged from: [facility] Admit Date: 04/13/24 Admitted for: 04/15/24 Antonia Case MD Provider Documentation Venkat Marsh is a 58 year old male here today for a follow up to recent hospitalization. I have reviewed the patient's hospital course including diagnostic testing performed during this hospitalization, their discharge medications, and my assessment and plan with the patient and any family members present at today's visit. HPI: The patient with PMHxx of bipolar disorder, CAD, diabetes, HTN, atria lflutter, and hypothyroidism was admitted for new diagosisi of heart failure with reduced ejection fraction (17%). He received a LHC and was treated with diuresis and advacnment of his GDMT. He reported feeling significantly bettereven though he has not started his hospital discharge medications. He said that he is currently at his friends house and does not have access to his medications to review them. He was advised of the high importance of following his new medicaiton regimen. He was told to get a pill box with his hospital discharge and fill up the pill boxes carefully with his friend to ensure that everything is put in correctly. He is advised the importance of adhering to the new medication and discontinuing the previous medication. Patient does report that he has been taking his insulin as prescribed. When asked about new medications such as Eliquis and Entresto, patient is not aware of these medications but believes that he has them in his bag of medications from the hospital that he he says he will begin to use. Denies importance of stopping the losartan when beginning the Entresto. He does say that he is more concerned about his physical health since his hospitalization has altered his diet including adding more salads and reducing his intake of processed meats. He is reminded of his upcoming appointments with his telegraphic typewriter mechanic and heart failure clinic and advised to attend these appointments. He denies any current chest pain, palpitations, headache, nausea, leg pain. Patient does endorse some leg swelling but it has been improved sincebefore the hospitalization. Review of Systems Constitutional: Negative for chills and fever. Respiratory: Negative for cough, shortness of breath and wheezing. Cardiovascular: Positive for leg swelling. Negative for chest pain, palpitations and claudication. Gastrointestinal: Negative for abdominal pain, diarrhea, nausea and vomiting. Genitourinary: Negative for dysuria. Neurological: Negative for dizziness. Vitals There were no vitals taken for this visit. Physical Exam Vitals reviewed: Not performed; telephone encounter. ASSESSMENT/PLAN: 1. Chronic systolic CHF (congestive heart failure) (HCC) - ICD9: 428.22, 428.0, ICD10: I50.22 - BASIC METABOLIC PANEL already ordered -Patient advised to double check that he is taking medications prescribed at discharge and discontinuing those that are discontinued. At time of home conversation patient was still taking previous medications. -Patient advised to use pillbox and assistance in medication adherence - Patient advised to continue diet with avoiding sodium -Given dates and times of upcoming appointments with cardiology and heart failure clinic and advised the importance of following up with these 2. Typical atrial flutter (HCC) - ICD9: 427.32, ICD10: I48.3 --Patient has not been taking Eliquis as prescribed upon discharge. Patient believes he likely has this medication in his bag on open medications Antonia Case April 19, 2024 9:31 [facility]07-30-2024 NotePatient Outreach (AGACM) VENKAT MARSH ([id number]) 1965 M Date Time Provider Department 04/19/24 HOMA PERDUE [facility] During your visit today, we recorded the following information about you: Homa Perdue RN 04/19/2024 2:02 PM Signed TRANSITIONAL CARE MANAGEMENT (TCM) COMMUNITY MONITORING PROGRAM - [place] Provider Action/FYI: Patient reports he has started to make diet changes, decrease sodium, and water intake. Patient reports he is going to start walking for exercise. Patient reports he is monitoring daily weights. SUMMARY: Pt discharged from [facility] on 04/15/24. Admitted for: Syncope Patient seen Inpatient SARAY Visit? No. Patient seen ICARE Program? No. Contact made with patient: Yes Hi my name is Homa Perdue RN and I am calling from the [facility] on behalf of your PCP, Duncan Craven MD I understand you were recently in the hospital so I am calling to check in with you to ensure you are feeling well now that you?re home. Do you mind if I ask you a few questions related to your hospital stay and well-being Yes Contact with patient post discharge, spoke to patient. Patient identified by name and . Do you feel your health is BETTER, WORSE, or the SAME since leaving the hospital? Better ACTION TAKEN: Patient indicated symptoms are better or same, no action required. Continue outreach. N/A MEDICATIONS: Many patients have questions or concerns about their medications once they are home. Do you have any questions about taking your medications or which medication you should be on? No Do you need any medication refills at this time, including any of the medications you might take only when needed? No ACTION TAKEN: No action required For RNs or Pharmacy completing outreach ONLY, was a medication review completed? No, completed by TCM pharmacist in previous encounter. SOCIAL: We would like to make sure you have what you need so that your basics needs are met - including your personal safety. HEALTH LEADS SCREENING TOOL QUESTIONS: Do you often feel you lack companionship? No Do you ever need help reading or understanding hospital materials? No In the last 12 months, have you changed how you take medications to save money? No In the past 12 months, has lack of transportation kept you from medical appointments, work or getting things you need like food, or supplies? No In the last 12 months, did you ever eat less than you felt you should because there wasn't enough money for food? No During the winter, do you anticipate having a problem paying your heating bill? No In the next 2 months, are you worried you might not have stable housing? No Would you like to speak with a social work freight team associate to help give you support for any of these needs? No It can be normal to feel anxious or down during a time like this. Would you like to talk to a mental health professional about how you have been feeling? No ACTION TAKEN: No action taken DISCHARGE INTRUCTIONS: Your discharge instructions / After Visit Summary (AVS) are important in guiding you through the recovery process. Do you have any questions related to your discharge instructions? No Do you have all the necessary equipment and supplies at home? Yes ACTION TAKEN: No action required WRAP AROUND SERVICES: N/A Patient educated on importance of primary care provider follow up visit as well as specialty provider follow up visits as indicated. Inform the patient that if they have any questions or concerns prior to that appointment, to call their Primary Care Provider 's office right away. Primary care provider first education provided. I would like to help you schedule a hospital follow-up virtual or telephone visit with your PCP. ACTION TAKEN: TCM Primary Care Provider Visit Scheduled: Yes - Appt date: 04/19/24 with PCP Your doctor would like us to remind you of the recommendations regarding the coronavirus (Covid19) outbreak: Avoid public places as much as possible. Avoid close contact (within 6 feet) with others you don't live with, especially if they are sick. Stay home if you are sick. Wash your hands regularly for at least 20 seconds with soap and water. Wear a cloth mask in public places to help reduce community spread. Do not go to your Doctor's office unless instructed to do so. For any non-emergency symptoms, call your Doctor's office to get instructions on how to manage (we might recommend a telephone or virtual visit). For emergency symptoms, proceed to Emergency Department as usual but inform them of cough and fever symptoms LEN if present (or call on the way if possible). Allergies As of Date: 04/19/2024 Noted Allergy Reaction AMOXICILLIN-POT CLAVULANATE 12/23/2023 10 - Anaphylaxis 7 - Swelling METFORMIN 04/26/2023 6 - Diarrhea LISINOPRIL 04/24/2023 3 - Co (more content not included)...[facility]07-29-2024 Telephone encounter Note* Telephone Encounter - Jessica Fitzgerald - 04/18/2024 3:07 PM EDT LVM scheduled with 06-20 at 3:30 pm in [place] with Bhanu Edmondson. Thanks Jessica Fitzgerald [facility]07-29-2024 Miscellaneous Notes* Telephone Encounter - Jessica Fitzgerald - 04/18/2024 3:07 PM EDT LVM scheduled with 06-20 at 3:30 pm in [place] with Bhanu Edmondson. Thanks Jessica Fitzgerald * Telephone Encounter - Bhanu Edmondson APRN.CNP - 04/15/2024 3:52 PM EDT Patient will also need a bmp in 7-10 days. Order has been placed Bhanu Edmondson APRN.CNP * Telephone Encounter - Bhanu Edmondson APRN.CNP - 04/15/2024 2:17 PM EDT Pt was recently seen in the hospital for CHF. Please reach out to patient to schedule follow up visit with Dr. Ponce or [facility]. Patient should be seen in 6-8 weeks. Thanks Bhanu Edmondson APRN.ELEMENTARY SUPERVISOR documented [facility] Telephone encounter Note * Telephone Encounter - Radha Hartman - 04/18/2024 2:47 PM EDT Patient was discharged from [facility] 04-15-24 with an order to schedule with the Heart Failure Clinic. The patient is scheduled with the [facility] for an office visit 04-27-24, which was scheduled at a recent discharge. However, the patient missed their TeleHealth appointment. Attempted to reach patient, however, voice mail was full, will send MyChart message. [facility]07-29-2024 Miscellaneous Notes* Telephone Encounter - Radha Hartman - 04/18/2024 2:47 PM EDT Patient was discharged from [facility] 04-15-24 with an order to schedule with the Heart Failure Clinic. The patient is scheduled with the [facility] for an office visit 04-27-24, which was scheduled at a recent discharge. However, the patient missed their TeleHealth appointment. Attempted to reach patient, however, voice mail was full, will send MyChart message. documented in this encounterGuernsey [facility]07-29-2024 NoteHNO ID: [id number] Author: LOGAN CAMERON RPh Service: Pharmacy Author Type: Pharmacist Type: Progress Notes Filed: 04/20/2024 10:10 Note Text: TRANSITION CARE MANAGEMENT (TCM) HEART FAILURE PHARMACY CONTACT Provider Action/FYI: TCM Medication Reconciliation completed for patient. See medication list table below for details. ACTION REQUIRED: Metoprolol stopped on discharge should this be continued? Metoprolol succinate 25 mg daily was on inpatient prior to discharge - messaged to clarify - per Cardiology this should be continued, added back to list - patient only has tartrate and will need a new Rx for metoprolol succinate - pended Rx Heart monitor fell off and threw away - patient is not sure what to do or if he needs a new one - please advise Patient does not have his new medications with him but he will open the bag and start when he gets home today. Only able to briefly able to go through medications, would recommend more detailed education on new medications (Eliquis, Entresto, and Crestor). Patient states albuterol HFA causes more SOB after use and therefore the patient refuses to use. Unclear if allergic like reaction or possibly anxiety driven - recommended to discuss with PCP on follow up Patient has 2 pens of Trulicity left and will need a refill soon - pended Rx to PCP Patient currently has nystatin on his med list for thrush treatment. Per patient he continues to have issues with thrush but unclear duration of therapy since Rx not linked? Please advise Patient Workup: HF medication classes present on medication list: BECKY/ARB/ARNI YES - sacubitril-valsartan Beta rebecca NO - restart Aldosterone antagonist NO SGLT2i YES - empagliflozin Hydralazine/Isosorbide NO Ivabradine NO Loop diuretics YES - furosemide Digoxin NO New HF medication class(es) added this admission: Yes, ARNI (Patient to be counseled on new medications if full medication review completed) Last documented LVEF: LV Ejection Fraction (%) Date Value 04/12/2024 17 Last documented weight: Last Wt 04/15/24 129.9 kg (286 lb 6 oz) Patient was sent a message via Av[employer] including the link to the [facility] Heart Failure education video: No CHF clinic referral placed inpatient Initial contact with patient post discharge, spoke to patient, and verified that any applicable caregiver is active in patient's medical care. Patient identified by name and . Summary: -Pt discharged from [facility] on 04/15/24. -Medication review done Full medication review completed Patient Concerns: none ROS: Denies new or worsening shortness of breath at rest and on exertion (orthopnea, PND, bendopnea, wheezing/coughing). Denies new or worsening symptoms of edema (abdominal, early satiety, lower extremity, or abnormal weight gain). Denies new or worsening CP, palpitations, ANTOINE, blurred vision. Denies new or worsening dizziness, lightheadedness, syncope. Denies new or worsening N/V, diarrhea, abdominal pain. Denies potential medication adverse effects. Red flag symptom(s) identified during call: No VITALS and WEIGHT HOME MONITORING: Patient does have BP monitor at home, most recent home BP/HR: 120/80 . Patient took meds this A.M. Patient does have scale at home, most recent home weight: No. Does not have scale with him right now - reviewed monitoring for weight gain and when to call History of Present Illness: The following content has been copied and pasted from patient's discharge summary. If discharge summary unavailable, After Visit Summary or last pertinent inpatient notes are copied and pasted. 58 year old male with hx of bipolar disorder, CAD, diabetes, HTN, HL, and hypothyroidism who presents with 6 weeks of worsening shortness of breath. He finally had an echocardiogram after putting if off for a year and found out that his EF was 17%. Principal Problem: Acute systolic and diastolic HF with EF 17% -- heart cath 04/14 GDMT - lo entresto. Metoprolol, dapagliflozin and lasix Hypokalemia - resolved Atrial flutter On eliquis now Currently rate controlled Continued to monitor on tele Diabetes uncontrolled. -- Improve glucose control outpatient Hypothyroidism -- continue Synthroid-- TSH 3.680 HL -- continue statin Medication Reconciliation: Legend: Stopped, New, Changed, Added to list Medication List Medication Directions Comments Action/Plan albuterol HFA (PROVENTIL HFA, VENTOLIN HFA) 90 mcg/actuation inhaler Inhale 2 Puffs as instructed every 4 hours as needed for wheezing/shortness of breath. 03/29/24 8.5g Doesn't like to use Feels SOB apixaban (ELIQUIS) 5 mg tab(s) Take 1 tablet by mouth two times a day. [facility] 04/15/24 #60/30ds New Afib Has at home - will start this afternoon Counseled on indication, administration and SE Reviewed importance of medication aspirin, enteric coated (ADULT LOW DOSE ASPIRIN) 81 mg EC t (more content not included)...[facility]07-29-2024 Telephone encounter Note* Telephone Encounter - Rupert Degroot LPN - 04/18/2024 11:03 AM EDT Last Office Visit Date: 04/11/2024 Last Distance Health Visit: Visit date not found Has the patient had an appointment at [facility] in the past year, or do they have an upcoming appointment scheduled at [facility]? YES- Continue with refill request. Future Appointment: 04/19/2024 Pharmacy faxed requesting the following refill Refill(s) Requested: Requested Prescriptions Pending Prescriptions Disp Refills metFORMIN (GLUCOPHAGE) 1,000 mg tablet 180 tablet 0 Sig: Take 1 tablet by mouth two times a day. levothyroxine (SYNTHROID) 125 mcg tablet 90 tablet 0 Sig: Take 1 tablet by mouth daily before breakfast. ALLERGIES Allergen Reactions Amoxicillin-Pot Cla* Anaphylaxis, Swelling Metformin Diarrhea Lisinopril Cough Sulfamethoxazole-Tr* Rash, Hives, Swelling (home) [phone] (cell) The patients preferred pharmacy has been captured for this encounter? yes Request is for script(s) to be escript to pharmacy. Rupert Degroot LPN [facility]07-29-2024 Miscellaneous Notes* Telephone Encounter - Rupert Degroot LPN - 04/18/2024 11:03 AM EDT Last Office Visit Date: 04/11/2024 Last Distance Health Visit: Visit date not found Has the patient had an appointment at [facility] in the past year, or do they have an upcoming appointment scheduled at [facility]? YES- Continue with refill request. Future Appointment: 04/19/2024 Pharmacy faxed requesting the following refill Refill(s) Requested: Requested Prescriptions Pending Prescriptions Disp Refills metFORMIN (GLUCOPHAGE) 1,000 mg tablet 180 tablet 0 Sig: Take 1 tablet by mouth two times a day. levothyroxine (SYNTHROID) 125 mcg tablet 90 tablet 0 Sig: Take 1 tablet by mouth daily before breakfast. ALLERGIES Allergen Reactions Amoxicillin-Pot Cla* Anaphylaxis, Swelling Metformin Diarrhea Lisinopril Cough Sulfamethoxazole-Tr* Rash, Hives, Swelling (home) [phone] (cell) The patients preferred pharmacy has been captured for this encounter? yes Request is for script(s) to be escript to pharmacy. Rupert Degroot LPN documented in this encounterGuern[facility]07-29-2024 NotePatient Outreach (PHRXRF) VENKAT MARSH ([id number]) 1965 M Date Time Provider Department 04/18/24 LOGAN CAMERON PHRXRF During your visit today, we recorded the following information about you: Logan Cameron [facility] 04/20/2024 10:10 AM Signed TRANSITION CARE MANAGEMENT (TCM) HEART FAILURE PHARMACY CONTACT Provider Action/FYI: TCM Medication Reconciliation completed for patient. See medication list table below for details. ACTION REQUIRED: Metoprolol stopped on discharge should this be continued? Metoprolol succinate 25 mg daily was on inpatient prior to discharge - messaged to clarify - per Cardiology this should be continued, added back to list - patient only has tartrate and will need a new Rx for metoprolol succinate - pended Rx Heart monitor fell off and threw away - patient is not sure what to do or if he needs a new one - please advise Patient does not have his new medications with him but he will open the bag and start when he gets home today. Only able to briefly able to go through medications, would recommend more detailed education on new medications (Eliquis, Entresto, and Crestor). Patient states albuterol HFA causes more SOB after use and therefore the patient refuses to use. Unclear if allergic like reaction or possibly anxiety driven - recommended to discuss with PCP on follow up Patient has 2 pens of Trulicity left and will need a refill soon - pended Rx to PCP Patient currently has nystatin on his med list for thrush treatment. Per patient he continues to have issues with thrush but unclear duration of therapy since Rx not linked? Please advise Patient Workup: HF medication classes present on medication list: BECKY/ARB/ARNI YES - sacubitril-valsartan Beta rebecca NO - restart Aldosterone antagonist NO SGLT2i YES - empagliflozin Hydralazine/Isosorbide NO Ivabradine NO Loop diuretics YES - furosemide Digoxin NO New HF medication class(es) added this admission: Yes, ARNI (Patient to be counseled on new medications if full medication review completed) Last documented LVEF: LV Ejection Fraction (%) Date Value 04/12/2024 17 Last documented weight: Last Wt 04/15/24 129.9 kg (286 lb 6 oz) Patient was sent a message via [employer] including the link to the [facility] Heart Failure education video: No CHF clinic referral placed inpatient Initial contact with patient post discharge, spoke to patient, and verified that any applicable caregiver is active in patient's medical care. Patient identified by name and . Summary: -Pt discharged from [facility] on 04/15/24. -Medication review done Full medication review completed Patient Concerns: none ROS: Denies new or worsening shortness of breath at rest and on exertion (orthopnea, PND, bendopnea, wheezing/coughing). Denies new or worsening symptoms of edema (abdominal, early satiety, lower extremity, or abnormal weight gain). Denies new or worsening CP, palpitations, ANTOINE, blurred vision. Denies new or worsening dizziness, lightheadedness, syncope. Denies new or worsening N/V, diarrhea, abdominal pain. Denies potential medication adverse effects. Red flag symptom(s) identified during call: No VITALS and WEIGHT HOME MONITORING: Patient does have BP monitor at home, most recent home BP/HR: 120/80 . Patient took meds this A.M. Patient does have scale at home, most recent home weight: No. Does not have scale with him right now - reviewed monitoring for weight gain and when to call History of Present Illness: The following content has been copied and pasted from patient's discharge summary. If discharge summary unavailable, After Visit Summary or last pertinent inpatient notes are copied and pasted. 58 year old male with hx of bipolar disorder, CAD, diabetes, HTN, HL, and hypothyroidism who presents with 6 weeks of worsening shortness of breath. He finally had an echocardiogram after putting if off for a year and found out that his EF was 17%. Principal Problem: Acute systolic and diastolic HF with EF 17% -- heart cath 04/14 [facility] - jemal meraz. Metoprolol, dapagliflozin and lasix Hypokalemia - resolved Atrial flutter On eliquis now Currently rate controlled Continued to monitor on tele Diabetes uncontrolled. -- Improve glucose control outpatient Hypothyroidism -- continue Synthroid-- TSH 3.680 HL -- continue statin Medication Reconciliation: Legend: Stopped, New, Changed, Added to list Medication List Medication Directions Comments Action/Plan albuterol HFA (PROVENTIL HFA, VENTOLIN HFA) 90 mcg/actuation inhaler Inhale 2 Puffs as instructed every 4 hours as needed for wheezing/shortness of breath. Lf 03/29/24 8.5g Doesn't like to use Feels SOB apixaban (ELIQUIS) 5 mg tab(s) Take 1 tablet by mouth two times a day. [facility] 04/15/24 #60/30ds New Dianelys (more content not included)...[facility]07-26-2024 Telephone encounter Note* Telephone Encounter - Bhanu Edmondson APRN.CNP - 04/15/2024 3:52 PM EDT Patient will also need a bmp in 7-10 days. Order has been placed Bhanu Edmondson APRN.CNP [facility]07-26-2024 Telephone encounter Note* Telephone Encounter - Bhanu Edmondson APRN.CNP - 04/15/2024 2:17 PM EDT Pt was recently seen in the hospital for CHF. Please reach out to patient to schedule follow up visit with Dr. Ponce or [facility]. Patient should be seen in 6-8 weeks. Thanks Bhanu Edmondson APRN.CNP [place] [address]-26-2024 NoteHNO ID: [id number] Author: KAMERON JACKSON, RN Service: Care Management Author Type: Registered Nurse Type: Care Mgt Progress Note Filed: 04/15/2024 12:51 Note Text: CARE MANAGEMENT DISCHARGE NOTE SERVICE DATE: April 15, 2024 SERVICE TIME: 1250 Admission Date: 04/13/2024 LOS: 2 days Discharge Arrangement Discharge Arrangement: Home with Self Care Services Arranged Provider Name: Dr. Case Caregiver Assessment Caregiver is ready, willing and able to meet the patient's needs as recommended by the inter-professional team: No Caregiver needed Transportation Arrangements Transportation Arrangements: Car Handoff Communication: Additional Information: NA Pt discharged to home with self care. Follow up appointments scheduled and on AVS. Pt arranging transportation home. SIGNATURE: Kameron Jackson RN PATIENT NAME: Venkat Marsh DATE: April 15, 2024 TIME: 12:50 PM CONTACT #: [phone] NoteHNO ID: [id number] Author: VANNESSA COLLINS CPhT Service: Pharmacy Author Type: Flute Polisher Type: Plan of Care Filed: 04/15/2024 12:37 Note Text: PHARMACY BEDSIDE DELIVERY SERVICE Patient Name: Venkat Marsh The marked outpatient medications were Filled at: [facility] and delivered to the patient's bedside to patient. Medication List START taking these medications ELIQUIS 5 mg tab(s) Generic drug: apixaban Take 1 tablet by mouth two times a day. ENTRESTO 24-26 mg tablet Generic drug: sacubitril-valsartan Take 1 tablet by mouth two times a day. rosuvastatin 10 mg tablet Commonly known as: CRESTOR Take 1 tablet by mouth daily at bedtime. CHANGE how you take these medications furosemide 40 mg tablet Commonly known as: LASIX Take 1 tablet by mouth once daily. Patient should start on April 16, 2024. Start taking on: April 16, 2024 What changed: medication strength how much to take CONTINUE taking these medications albuterol HFA 90 mcg/actuation inhaler Commonly known as: PROVENTIL HFA, VENTOLIN HFA Inhale 2 Puffs as instructed every 4 hours as needed for wheezing/shortness of breath. aspirin, enteric coated 81 mg EC tablet Commonly known as: ADULT LOW DOSE ASPIRIN Take 1 tablet by mouth once daily. benzonatate 100 mg capsule Commonly known as: TESSALON PERLE dulaglutide 0.75 mg/0.5 mL pen injector Commonly known as: TRULICITY Inject 0.75 mg subcutaneously one time a week. Monitor bs closely and keep food log empagliflozin 10 mg tablet Commonly known as: JARDIANCE Take 1 tablet by mouth daily with breakfast. fluticasone 50 mcg/actuation nasal spray Commonly known as: FLONASE Use 2 Sprays in each nostril once daily. insulin glargine 100 unit/mL (3 mL) Inject 20 Units subcutaneously once daily. Insulin Whitman (Disposable) 32 gauge x 5/32 Commonly known as: PEN NEEDLE Inject 1 Each subcutaneously every 24 hours. Give with each insulin administration. Insulin Syringe-Needle U-100 0.5 mL 31 gauge x 5/16 Inject 1 Each subcutaneously every 24 hours. Give with each insulin administration. levothyroxine 125 mcg tablet Commonly known as: SYNTHROID Take 1 tablet by mouth daily before breakfast. metFORMIN 1,000 mg tablet Commonly known as: GLUCOPHAGE Take 1 tablet by mouth two times a day. mirtazapine 15 mg tablet Commonly known as: REMERON Take 1 tablet by mouth daily at bedtime. MYLANTA ORAL nystatin 100,000 unit/mL suspension Commonly known as: MYCOSTATIN traZODone 100 mg tablet Commonly known as: DESYREL Take 1 tablet by mouth daily at bedtime. You might also be taking other medications not listed above. If you have questions about any of your other medications, talk to the person who prescribed them or your Primary Care Provider. STOP taking these medications ibuprofen 600 mg tablet Commonly known as: MOTRIN losartan 25 mg tablet Commonly known as: COZAAR metoprolol succinate ER 25 mg 24 hr tablet Commonly known as: TOPROL XL METOPROLOL TARTRATE ORAL MULTI-VITAMIN ORAL predniSONE 20 mg tablet Commonly known as: DELTASONE Vannessa Collins CPhT PAGER: Vannessa Collins ([facility]) [phone] April 15, 2024 12:37 [facility]07-25-2024 Telephone encounter Note* Telephone Encounter - Lorena Hurley - 04/14/2024 2:57 PM EDT Patient called from [facility]. He is currently admitted. States that he is upset because he hasnot gotten his US DVT done. I tried to listen to patient, he was talking about how staff in hospital was rude to him. He states he is waiting to do a procedure, a catheterization. Patient states he is tired of being admitted. I tried to empathize, stating I could tell he was not comfortable becauseof the sound of his voice. Patient asks if I would have any influence over his US being done. I informed patient that unfortunately not, he is under care of hospital. Advised that US may have to be done another day. Patient ranted, stating he was ready Rip the ivs out of his arm and leave AMA. I advised patient to please not do that. Patient speaking with nurse while also on the phone with me. Patient states he will call back. Patient ended call. Patient stated some time during our conversation that he was expecting Dr. Betancur to call him, please advise. Lorena Hurley, Housekeeping Worker April 14, 2024 3:02 PM [facility]07-25-2024 Miscellaneous Notes* Telephone Encounter - Lorena Hurley - 04/14/2024 2:57 PM EDT Patient called from [facility]. He is currently admitted. States that he is upset because he hasnot gotten his US DVT done. I tried to listen to patient, he was talking about how staff in hospital was rude to him. He states he is waiting to do a procedure, a catheterization. Patient states he is tired of being admitted. I tried to empathize, stating I could tell he was not comfortable becauseof the sound of his voice. Patient asks if I would have any influence over his US being done. I informed patient that unfortunately not, he is under care of hospital. Advised that US may have to be done another day. Patient ranted, stating he was ready Rip the ivs out of his arm and leave AMA. I advised patient to please not do that. Patient speaking with nurse while also on the phone with me. Patient states he will call back. Patient ended call. Patient stated some time during our conversation that he was expecting Dr. Betancur to call him, please advise. Lorena Hurley, Housekeeping Worker April 14, 2024 3:02 PM documented in this encounterGuernsey [facility]07-[facility]-2024 NoteHNO ID: [id number] Author: KAMERON JACKSON RN Service: Care Management Author Type: Registered Nurse Type: Care Mgt Initial Assessment Filed: 04/14/2024 14:08 Note Text: CARE MANAGEMENT: ASSESSMENT AND DISCHARGE PLAN SERVICE DATE: April 14, 2024 SERVICE TIME: 1406 PCP: Duncan Craven MD Primary Contact: No emergency contact information on file. Admission Status: Inpatient Insurance Provider: NoFlo Discharge Planning requested by: Per Department Practice Potential Transition Plans Home Advance Directives Current Advance Directive: None Computing Tutor Attempted to Assist with AD Completion: Yes Action: Patient Unwilling Current Living Arrangements and Support Lives with: Alone Type of Residence: Other: See Comment Other Type of Residence: rents room in boarding house Does the patient have to climb stairs at home?: No Support: Friends/neighbors How do you manage to accomplish the following: Independent: Ambulation;Bathe/Shower;Dress;Meals/Meal Prep;Going to the bathroom;Medication Management;Transportation to appointments/community Current Services/Equipment Current Post-Acute Service(s): DME, Other: See Comment Current DME Type: Glucometer device and supplies, Other: See Comment (BP cuff, scale) Discharge Planning Patient Goal(s): Be able to go home, General wellness [place] Explained: [place] Given: No Reason Not Given: No placements necessary Are you interested in bedside delivery of your medications? No Discharge Planning Participant(s): Patient Patient/Family Comments: Caregiver Assessment: Caregiver is ready, willing and able to meet the patient's needs as recommended by the inter-professional team: No Caregiver needed Transport at Discharge: Transportation Arrangements: Car Needs Prior to Discharge: Needs Prior to Discharge: To Be Determined Post-Acute Discharge Plan: Met with patient at bedside. 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 Pt s/p LHC today. +PCP, +DME, +rx. No transitional care needs anticipated at this time. Pt states he will have transportation available at discharge. CM will continue to follow. SIGNATURE: Kameron Jackson RN PATIENT NAME: Venkat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 Eyes: Negative for visual disturbance. Respiratory: Positive for cough and shortness of breath. Negative for chest tightness and wheezing. Orthopnea Cardiovascular: Positive for leg swelling. Negative for chest pain and palpitations. Gastrointestinal: Negative for abdominal pain, constipation, diarrhea, nausea and vomiting. Abdominal swelling Genitourinary: Negative for dysuria, hematuria and urgency. Musculoskeletal: Negative for arthralgias, myalgias and neck pain. Skin: Negative for rash and wound. Neurological: Negative for dizziness, tremors, light-headedness, numbness and headaches. Hematological: Does not bruise/bleed easily. Psychiatric/Behavioral: Negative for agitation. The patient is not nervous/anxious. OBJECTIVE: BP 156/120 (BP Site: Left Arm, BP Position: Sitting) Pulse 94 Wt 134.3 kg (296 lb) SpO2 97% BMI 45.01 kg/m Physical Exam Constitutional: General: He is not in acute distress. Appearance: He is obese. He is not ill-appearing. HENT: Head: Normocephalic and atraumatic. Right Ear: External ear normal. Left Ear: External ear normal. Mouth/Throat: Mouth: Mucous membranes are dry. Pharynx: Oropharynx is clear. No oropharyngeal exudate or posterior oropharyngeal erythema. Eyes: General: No scleral icterus. Extraocular Movements: Extraocular movements intact. Pupils: Pupils are equal, round, and reactive to light. Cardiovascular: Rate and Rhythm: Normal rate and regular rhythm. Pulses: Normal pulses. Heart sounds: Normal heart sounds. No murmur heard. Pulmonary: Effort: Pulmonary effort is normal. No respiratory distress. Breath sounds: Normal breath sounds. No wheezing. Abdominal: General: Bowel sounds are normal. There is distension. Palpations: Abdomen is soft. There is no mass. Tenderness: There is no abdominal tenderness. Musculoskeletal: Cervical back: No tenderness. Right lower leg: Edema present. Left lower leg: Edema present. Comments: 1-2+ bilateral lower extremity pitting edema Skin: General: Skin is warm and dry. Capillary Refill: Capillary refill takes less than 2 seconds. Coloration: Skin is not jaundiced. Neurological: General: No focal deficit present. Mental Status: He is alert and oriented to person, place, and time. Psychiatric: Behavior: Behavior normal. Thought Content: Thought content normal. Judgment: Judgment normal. Return in about 1 week (around 04/18/2024) for Virtual appointment - discuss bilateral lower extremity swelling, then schedule 3 month follow up. Discussed the above with the patient and my preceptor using shared decision-making. The patient is in agreement with the diagnostic and treatment plans. Provider: Gavin Betancur DO Signed on: April 11, 2024 8:06 AM [facility] Discharge instructions Patient Education 03/29/2024 11:01:26 COPD Flare COPD Flare You have had a flare-up of your COPD. COPD (chronic obstructive pulmonary disease) is a common lung disease. It causes your airways to get irritated and narrower. This makes it harder for you to breathe. Emphysema and chronic bronchitis are both types of COPD. This is a long-term (chronic) condition. This means you always have it. Sometimes it gets worse. When this happens, it is called a flare-up. Symptoms of COPD People with COPD may have symptoms most of the time. In a flare-up, your symptoms get worse. These symptoms may mean you are having a flare-up: Shortness of breath, shallow or rapid breathing, or wheezing that gets worse Lung infection Cough that gets worse More mucus, thicker mucus or mucus of a different color Tiredness, less energy, or trouble doing your normal activities Fever Chest tightness Your symptoms don t get better even when you use your normal medicines, inhalers, and nebulizer Trouble talking You feel confused Causes of flare-ups Unfortunately, a flare-up can happen even if you did everything right. And even if you followed your healthcare provider s instructions. Some causes of flare- ups are: Smoking or secondhand smoke Colds, the flu, or respiratory infections Air pollution Sudden change in the weather Dust, irritating chemicals, or strong fumes Not taking your medicines as prescribed Home care Here are some things you can do at home to treat a flare-up: Try not to panic. This makes it harder to breathe, and keeps you from doing the right things. Don t smoke or be around others who are smoking. Try to drink more fluids than normal during a flare-up, unless your healthcare provider has told you not to because of heart and kidney problems. More fluids can help loosen the mucus. Use your inhalers and nebulizer, if you have one, as you have been told to. If you were given antibiotics, take them until they are used up or your provider tells you to stop.It s important to finish the antibiotics, even though you feel better. This will make sure the infection has cleared. If you were given prednisone or another steroid, finish it even if you feel better. Preventing a flare-up Flare-ups happen. But the best way to treat one is to prevent it before it starts. Here are some pointers: Don t smoke or be around others who are smoking. Take your medicines as discussed with your healthcare provider. Talk with your provider about getting a flu shot every year. Also find out if you need a pneumonia shot. If there is a weather advisory warning to stay indoors, try to stay inside when possible. Try to eat healthy, exercise, and get plenty of sleep. Try to stay away from things that normally set you off. These include dust, chemical fumes, hairsprays, or strong perfumes. Follow-up care Follow up with your healthcare provider, or as advised. If a culture was done, you will be told if your treatment needs to be changed. You can call as directed for the results. If X-rays were done, you will be told of any new findings that may affect your care. Call 911 Call 911 if any of these occur: You have trouble breathing You feel confused or it s hard to wake you up You faint or lose consciousness You have a rapid heart rate You have new pain in your chest, arm, shoulder, neck, or upper back When to seek medical advice Call your healthcare provider right away if any of these occur: Wheezing or shortness of breath gets worse You need to use your inhalers more often than normal without relief Fever of 100.4 F (38 C) or higher, or as directed by your healthcare provider Coughing up lots of dark-colored or bloody mucus (sputum) Chest pain with each breath You don't start to get better within 24 hours Swelling of your ankles gets worse Dizziness or weakness [id number] [employer]. [address] [place] [address], [place] [address]. All rights reserved. This information is not intended as a substitute for professional medical care. Always follow yourhealthcare professional's instructions. Follow Up Care 03/29/2024 09:35:39 With:GAVIN BETANCUR II Address: [address] [place] [id number]- When:2-4 days [facility] 07-09-2024 Note Discharge Instructions Thank you for allowing [facility] to assist you with your healthcare needs. The following is importantdischarge information regarding your hospital visit. What to Do Next Instructions from Your Care Team No qualifying data available. Post Acute Orders No qualifying data available. You Need to Schedule the Following Appointments Follow Up with GAVIN BETANCUR II When:Within 2-4 days Where:[address] [place] [id number]- Allergies Bactrim swelling doxycycline Medications Please ask your primary doctor or pharmacist before taking any other medication not listed, including over the counter drugs, herbal medications, vitamins and or supplements as they may interact withyour home medications. What How Much When Instructions Last Dose New nystatin (nystatin 100,000 units/ mL oral suspension) 5 Milliliter by mouth Four (4) times a day Duration: 7 Days Printed Prescription New predniSONE (predniSONE 20 mg oral tablet) 3 tab(s) by mouth Once a day Duration: 4 Days Printed Prescription Changed albuterol (albuterol MDI (90 mcg/ inh) CFC free inhalation aerosol) 2 puff(s) by inhalation Every 4 hours as needed for as needed for wheezing Changed albuterol (albuterol MDI (90 mcg/ inh) CFC free inhalation aerosol) 2 puff(s) by inhalation Every 4 hours Changed albuterol (albuterol MDI (90 mcg/ inh) CFC free inhalation aerosol) 2 puff(s) by inhalation Every 4 hours Printed Prescription Unchanged aspirin (aspirin 325 mg oral tablet) 1 tab(s) by mouth Every day Unchanged levothyroxine (levothyroxine 125 mcg (0.125 mg) oral tablet) 1 tab(s) by mouth Once a day Unchanged metoprolol (metoprolol tartrate 50 mg oral tablet) 1 tab(s) by mouth Once a day Please take this list to your next doctor s visit. Bring all medications you take, including over the counter medications, herbals and other supplements with you to your doctor s visit. Patients and families are reminded to discard old lists and to update any records with all medication providers or retail pharmacies. Education Materials COPD Flare You have had a flare-up of your COPD. COPD (chronic obstructive pulmonary disease) is a common lung disease. It causes your airways to get irritated and narrower. This makes it harder for you to breathe. Emphysema and chronic bronchitis are both types of COPD. This is a long-term (chronic) condition. This means you always have it. Sometimes it gets worse. When this happens, it is called a flare-up. Symptoms of COPD People with COPD may have symptoms most of the time. In a flare-up, your symptoms get worse. These symptoms may mean you are having a flare-up: Shortness of breath, shallow or rapid breathing, or wheezing that gets worse Lung infection Cough that gets worse More mucus, thicker mucus or mucus of a different color Tiredness, less energy, or trouble doing your normal activities Fever Chest tightness Your symptoms don t get better even when you use your normal medicines, inhalers, and nebulizer Trouble talking You feel confused Causes of flare-ups Unfortunately, a flare-up can happen even if you did everything right. And even if you followed your healthcare provider s instructions. Some causes of flare- ups are: Smoking or secondhand smoke Colds, the flu, or respiratory infections Air pollution Sudden change in the weather Dust, irritating chemicals, or strong fumes Not taking your medicines as prescribed Home care Here are some things you can do at home to treat a flare-up: Try not to panic. This makes it harder to breathe, and keeps you from doing the right things. Don t smoke or be around others who are smoking. Try to drink more fluids than normal during a flare-up, unless your healthcare provider has told you not to because of heart and kidney problems. More fluids can help loosen the mucus. Use your inhalers and nebulizer, if you have one, as you have been told to. If you were given antibiotics, take them until they are used up or your provider tells you to stop.It s important to finish the antibiotics, even though you feel better. This will make sure the infection has cleared. If you were given prednisone or another steroid, finish it even if you feel better. Preventing a flare-up Flare-ups happen. But the best way to treat one is to prevent it before it starts. Here are some pointers: Don t smoke or be around others who are smoking. Take your medicines as discussed with your healthcare provider. Talk with your provider about getting a flu shot every year. Also find out if you need a pneumonia shot. If there is a weather advisory warning to stay indoors, try to stay inside when possible. Try to eat healthy, exercise, and get plenty of sleep. Try to stay away from things that normally set you off. These include dust, chemical fumes, hairsprays, or strong perfumes. Follow-up care Follow up with your healthcare provider, or as advised. If a culture was done, you will be told if your treatment needs to be changed. You can call as directed for the results. If X-rays were done, you will be told of any new findings that may affect your care. Call 911 Call 911 if any of these occur: You have trouble breathing You feel confused or it s hard to wake you up You faint or lose consciousness You have a rapid heart rate You have new pain in your chest, arm, shoulder, neck, or upper back When to seek medical advice Call your healthcare provider right away if any of these occur: Wheezing or shortness of breath gets worse You need to use your inhalers more often than normal without relief Fever of 100.4 F (38 C) or higher, or as directed by your healthcare provider Coughing up lots of dark-colored or bloody mucus (sputum) Chest pain with each breath You don't start to get better within 24 hours Swelling of your ankles gets worse Dizziness or weakness [id number] [employer]. [address] [place] [address]. All rights reserved. This information is not intended as a substitute for professional medical care. Always follow yourhealthcare professional's instructions. Additional Information VACCINATE! IT SAVES LIVES! Members of the community who have not yet received the COVID-19 vaccine and would like to receive it can visit one of [facility] vaccine clinics. There are many vaccine clinic locations within the [facility]. For locations and available times, please visit [email or web address] It is important to note that some COVID mobile vaccine clinics are held outdoors and may be canceled in rainy or stormy conditions. To learn more about pediatric vaccinations (ages 5-11), we invite you to visit the [facility] webpage. [email or web address] learn more about the COVID-19 vaccine, we invite you to visit the CDC website for a list of frequently asked questions. https://www.cdc.gov/coronavirus/2019-ncov/vaccines/faq.html [facility] Patient Portal Access Instructions: Stay connected with your healthcare team and access your personal medical information anytime with the [facility] Patient Portal. If you would like a full copy of your medical records please contact the [facility] Medical Records Department Thursday through Thursday between 8a.m. and 4:30p.m. Please follow the directions below to access the portal: 1.Access the email account you provided upon registration to the [facility].2.Look for an invitation email from [facility].3.Open the email and access the invitation link: Accept Invitation to [facility]4.Fill in the required bee to create your account. Sign into [email or web address] with your username and password that you created in the above steps to stay up to date. You can then view a summary of results, a summary of your visits, and the ability to download your summaries to your computer or send the information securely to a physician. Remember that your healthcare information is confidential, so carefully consider who you will allow to register on the [facility] Patient Portal for access to your information. You can also access the [facility] Patient Portal on the [employer]. Simply click on Health Records under [employer] and then click on the [employer] logo. HOW TO SAFELY DISPOSE OF PRESCRIPTION MEDICATIONS Please use one of the following methods to safely dispose of your unused medications. 1.Use a drug disposal kit: the drug disposal pouch allows you to safely discard your old and unuseddrugs. Ask your nurse to give you one when you are discharged.2.Visit a local take-back location: Many local pharmacies and police departments have programs that collect old and unwanted prescriptiondrugs. Call your local pharmacy or go to [email or web address] to find one close to you.3.Make use of household items: Use cat litter or old coffee grounds to dispose medications if other options arenot available. Mix your drugs with these household products, seal them in an airtight container andthrow it into the garbage. Call [facility]: [phone] to be sure your drugs can be disposed of in this way. Some medicines may require a different approach.4.Never flush your medications down the toilet. IF YOU HAVE BEEN PRESCRIBED AN OPIOIDS FOR PAIN If you have been prescribed an opioid (such as hydrocodone, oxycodone or morphine), it is critical to understand the possible side effects and risks of opioid pain medications. Even when taken as directed, opioids can have several side effects including: Tolerance, meaning you might need to take more of a medication for the same pain relief. Nausea, vomiting and/or constipation. Sleepiness, dizziness, dry mouth, confusion, depression or itching. Physical dependence, meaning you have withdrawal symptoms when a medication is stopped ? this can develop within a few days. KNOW YOUR RESPONSIBILITIES It is important to know exactly how much and how often to take the opioid pain medications you are prescribed. Never take opioids in higher amounts or more often than prescribed. Do not combine opioids with alcohol or other drugs that cause drowsiness, such as benzodiazepines, also known as benzos,including diazepam and alprazolam, muscle relaxants or sleep aids. Never sell or share prescriptionopioids. This is illegal. Store opioids in a secure place and out of reach of others (including children, family, friends and visitors). The last page(s) of this document has been signed and retained as a CHART COPY Signatures Patient Education Materials COPD Flare Medication Leaflets My discharge plan and instructions have been reviewed and explained to me and ISALMA STEPHEN Gunderstand my current condition and have read and understand these discharge instructions. I have received a written copy of the plan/instructions. If I have questions, I am aware that I should contact my doctor. 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 HISTORY: ORDERING SYSTEM PROVIDED HISTORY: Reason for Exam: dyspnea FINDINGS: There is borderline to mild cardiomegaly. Hilar contours and pulmonary vasculature are normal. There is stable linear scarring in the periphery the left mid lung. There is no infiltrates or atelectasis or gross effusions are pneumothorax. IMPRESSION: No acute intrathoracic process. Interpreted by: Ulysses Murray Preliminary Report By: Ulysses Murray Electronically signed By Ulysses Murray Dictated Date: 03/29/2024 10:38:37 AM Prelim Date: 03/29/2024 10:39:18 AM Sign Date: 03/29/2024 10:39:18 AM [facility] NoteSinus rhythm Prolonged UT interval IVCD, consider atypical LBBB Compared to ECG at 11/28/2023 08:28:11 BORDERLINE ECG Electronic Signature: KYLIE DURANT DO 03/29/2024 10:16:48[facility] 07-08-2024 NoteHNO ID: [id number] Author: BARBIE WELLINGTON DO Service: ? Author Type: Physician Type: Progress Notes Filed: 03/28/2024 16:04 Note Text: HPI: Venkat Marsh is a 58 year old male who presents today for pain and bursitis. Flared up few days ago with impact when falling out of bed. H/O bursitis and surgery. Still has excellent use of the elbow. Hurts only when puts direct pressure on it. [place] swollen and warm initially. Worries he will need another surgery or drainage of the elbow bursa sac. PAST MEDICAL HISTORY Diagnosis Date Bipolar 1 disorder (HCC) CAD S/P percutaneous coronary angioplasty 2011 [place] Diabetes mellitus (HCC) History of acute myocardial infarction HTN (hypertension) Hypercholesteremia Hypothyroidism PAST SURGICAL HISTORY Procedure Laterality Date ANGIOPLASTY 2011 [facility] STENT COLONOSCOPY 2009 [place] ARTHROSCOPY/SURGERY 2000 loose body removal lt HAND SURGERY HX Left 2022 [facility] ARTHROSCOPY/SURGERY 1985 loose body removal lt OSTEOTOMY FIBULA Left 1980 PAST SURGICAL HISTORY OF 1988 Rt wrist bone graft PAST SURGICAL HISTORY OF R navicular REPAIR INGUINAL HERNIA 1986 REPAIR NASAL SEPTUM DEFECT 1996 THYROIDECTOMY SUBTOTAL/PARTIAL 2009 TONSILLECTOMY PRIMARY/SECONDARY Tonsillectomy Social History Tobacco Use Smoking status: Every Day Packs/day: 0.50 Years: 40.00 Additional pack years: 0.00 Total pack years: 20.00 Types: Cigarettes Start date: 04/21/2023 Smokeless tobacco: Never Vaping Use Vaping Use: Never used Substance Use Topics Alcohol use: No Drug use: No Current Outpatient Medications Medication Sig empagliflozin (JARDIANCE) 10 mg tablet Take 1 tablet by mouth daily with breakfast. mirtazapine (REMERON) 15 mg tablet Take 1 tablet by mouth daily at bedtime. traZODone (DESYREL) 100 mg tablet Take 1 tablet by mouth daily at bedtime. albuterol HFA (PROVENTIL HFA, VENTOLIN HFA) 90 mcg/actuation inhaler Inhale 2 Puffs as instructed every 4 hours as needed for wheezing/shortness of breath. dulaglutide (TRULICITY) 0.75 mg/0.5 mL pen injector Inject 0.75 mg subcutaneously one time a week. Monitor bs closely and keep food log fluticasone (FLONASE) 50 mcg/actuation nasal spray Use 2 Sprays in each nostril once daily. Insulin Whitman, Disposable, (PEN NEEDLE) 32 gauge x 5/32 Inject 1 Each subcutaneously every 24 hours. Give with each insulin administration. Insulin Syringe-Needle U-100 0.5 mL 31 gauge x 5/16 Inject 1 Each subcutaneously every 24 hours. Give with each insulin administration. metoprolol succinate ER (TOPROL XL) 25 mg 24 hr tablet Take 1 tablet by mouth once daily. aspirin, enteric coated (ADULT LOW DOSE ASPIRIN) 81 mg EC tablet Take 1 tablet by mouth once daily. ibuprofen (MOTRIN) 600 mg tablet Take 1 tablet by mouth every 8 hours as needed for pain. insulin glargine 100 unit/mL (3 mL) Inject 20 Units subcutaneously once daily. levothyroxine (SYNTHROID) 125 mcg tablet Take 1 tablet by mouth daily before breakfast. losartan (COZAAR) 25 mg tablet Take 1 tablet by mouth two times a day. metFORMIN (GLUCOPHAGE) 1,000 mg tablet Take 1 tablet by mouth two times a day. rosuvastatin (CRESTOR) 10 mg tablet Take 1 tablet by mouth daily at bedtime. MULTI-VITAMIN ORAL None Entered No current facility-administered medications for this visit. ALLERGIES Allergen Reactions Amoxicillin-Pot Cla* Anaphylaxis, Swelling Metformin Diarrhea Lisinopril Cough Sulfamethoxazole-Tr* Rash, Hives, Swelling Resp 16 Ht 5' 8 (1.73m) Wt 294 lb (133.4kg) BMI 44.71 kg/(m2). EXAM: Examination of the left elbow reveals excellent strength and range of motion. There is no pain or weakness with resisted elbow extension. Excellent ligament stability of the elbow. Mild tenderness of the olecranon but no swelling that would suggest a bursitis. No redness or warmth that would suggest cellulitis or infection. Normal sensation, reflexes, and pulses ASSESSMENT: (S50.02XA) Contusion of left elbow, initial encounter (primary encounter diagnosis) PLAN: Venkat has pain typical of elbow contusion on the olecranon. There are no signs of bursitis or infection. There are no signs of ligament or tendon injury. There are no signs of fracture or arthritis. He will avoid direct pressure. Back as needed if pain or swelling flareup. Barbie Wellington, [facility]07-08-2024 History of Present illness Narrative* Barbie Wellington, DO - 03/28/2024 10:53 AM EDT HPI: Venkat Marsh is a 58 year old male who presents today for pain and bursitis. Flared up few days ago with impact when falling out of bed. H/O bursitis and surgery. Still has excellent use of the elbow. Hurts only when puts direct pressure on it. [place] swollen and warm initially. Worries hewill need another surgery or drainage of the elbow bursa sac. PAST MEDICAL HISTORY Diagnosis Date Bipolar 1 disorder (HCC) CAD S/P percutaneous coronary angioplasty 2011 [place] Diabetes mellitus (HCC) History of acute myocardial infarction HTN (hypertension) Hypercholesteremia Hypothyroidism PAST SURGICAL HISTORY Procedure Laterality Date ANGIOPLASTY 2011 [facility] STENT COLONOSCOPY 2009 [place] ARTHROSCOPY/SURGERY 2000 loose body removal lt HAND SURGERY HX Left 2022 [facility] ARTHROSCOPY/SURGERY 1984 loose body removal lt OSTEOTOMY FIBULA Left 1980 PAST SURGICAL HISTORY OF 1988 Rt wrist bone graft PAST SURGICAL HISTORY OF R navicular REPAIR INGUINAL HERNIA 1986 REPAIR NASAL SEPTUM DEFECT 1996 THYROIDECTOMY SUBTOTAL/PARTIAL 2009 TONSILLECTOMY PRIMARY/SECONDARY <AGE 10 Tonsillectomy Social History Tobacco Use Smoking status: Every Day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 up-to-date, and complete, but no guarantee is made to that effect. Drug information contained herein may be time sensitive. [employer] information has been compiled for use by healthcare practitioners and consumers in the [place] and therefore [employer] does not warrant that uses outside of the [place] are appropriate, unless specifically indicated otherwise. [employer] drug information does not endorse drugs, diagnose patients or recommend therapy. [employer] drug information isan informational resource designed to assist licensed healthcare practitioners in caring for their p atients and/or to serve consumers viewing this service as a supplement to, and not a substitute for, the expertise, skill, knowledge and judgment of healthcare practitioners. The absence of a warningfor a given drug or drug combination in no way should be construed to indicate that the drug or drug combination is safe, effective or appropriate for any given patient. [employer] does not assume any responsibility for any aspect of healthcare administered with the aid of information [employer] provides. The information contained herein is not intended to cover all possible uses, directions, precautions, warnings, drug interactions, allergic reactions, or adverse effects. If you have questions about the drugs you are taking, check with your doctor, nurse or pharmacist. Copyright 5903-3270 [facility] [employer]. Version: .. Revision Date: 11/22/2023. azithromycin (oral/injection) (a MAGAN boo MYYana sin) Azithromycin 3 Day Dose Pack, Azithromycin 5 Day Dose Pack, Zithromax, Zithromax IV, Zithromax TRI-ANNIKA, Zithromax Z-Annika What is the most important information I should know about azithromycin? You should not use azithromycin if you have ever had an allergic reaction, jaundice, or liver problems while taking this medicine. You should not use azithromycin if you have ever had a severe allergic reaction to similar drugs such as clarithromycin, erythromycin, or telithromycin. What is azithromycin? Azithromycin is used to treat many different types of infections caused by bacteria, including infections of the lungs, sinus, throat, tonsils, skin, urinary tract, cervix, or genitals. Azithromycin may also be used for purposes not listed in this medication guide. What should I discuss with my healthcare provider before using azithromycin? You should not use azithromycin if you are allergic to it, or if you have ever had: jaundice or liver problems caused by taking azithromycin; or a severe allergic reaction to similar drugs such as clarithromycin, erythromycin, or telithromycin. Azithromycin oral should not be used to treat pneumonia in people who have: cystic fibrosis; an infection after being in a hospital; an infection in the blood; a weak immune system (caused by diseases such as HIV/AIDS or cancer); or in older adults and those who are ill or debilitated. Tell your doctor if you have ever had: pneumonia; liver or kidney disease; myasthenia gravis; low levels of potassium in your blood; a heart rhythm disorder; or long QT syndrome (in you or a family member). It is not known whether this medicine is effective in treating genital ulcers in women. Tell your doctor if you are or . Taking azithromycin while may cause diarrhea, vomiting, or rash in the nursing baby. Azithromycin is not approved for use by anyone younger than 6 months old. Azithromycin should not be used to treat a throat or tonsil infection in a child younger than 2 years old. How should I take azithromycin? Follow all directions on your prescription label and read all medication guides or instruction sheets. Use the medicine exactly as directed. Azithromycin oral is taken by mouth. Azithromycin injection is given as an infusion into a vein, usually for 2 days before you switch to azithromycin oral. A healthcare provider will give you this injection. You may take azithromycin oral with or without food. Shake the oral suspension (liquid) before you measure a dose. Use the dosing syringe provided, or use a medicine dose-measuring device (not a kitchen spoon). Use this medicine for the full prescribed length of time, even if your symptoms quickly improve. Skipping doses can increase your risk of infection that is resistant to medication. Azithromycin will not treat a viral infection such as the flu or a common cold. Store at room temperature away from moisture and heat. Throw away any unused liquid medicine after 10 days. What happens if I miss a dose? Take the medicine as soon as you can, but skip the missed dose if it is almost time for your next dose. Do not take two doses at one time. What happens if I overdose? Seek emergency medical attention or call the Poison Help line at . What should I avoid while taking azithromycin? Antibiotic medicines can cause diarrhea, which may be a sign of a new infection. If you have diarrhea that is watery or bloody, call your doctor before using anti-diarrhea medicine. Azithromycin could make you sunburn more easily. Avoid sunlight or tanning beds. Wear protective clothing and use sunscreen (SPF 30 or higher) when you are outdoors. What are the possible side effects of azithromycin? Get emergency medical help if you have signs of an allergic reaction (hives, difficult breathing, swelling in your face or throat) or a severe skin reaction (fever, sore throat, burning in your eyes,skin pain, red or purple skin rash that spreads and causes blistering and peeling). Seek medical treatment if you have a serious drug reaction that can affect many parts of your body.Symptoms may include: skin rash, fever, swollen glands, muscle aches, severe weakness, unusual bruising, or yellowing of your skin or eyes. Call your doctor at once if you have: severe stomach pain, diarrhea that is watery or bloody; fast or pounding heartbeats, fluttering in your chest, shortness of breath, and sudden dizziness (like you might pass out); or liver problems--nausea, vomiting, loss of appetite, stomach pain (upper right side), tiredness, itching, dark urine, jose-colored stools, jaundice (yellowing of the skin or eyes); Call your doctor right away if a baby taking azithromycin becomes irritable or vomits while eating or nursing. Older adults may be more likely to have side effects on heart rhythm, including a life-threatening fast heart rate. Common side effects may include: nausea, vomiting; or stomach pain. This is not a complete list of side effects and others may occur. Call your doctor for medical advice about side effects. You may report side effects to FDA at 6-301-ZGB-8856. What other drugs will affect azithromycin? Tell your doctor about all your other medicines, especially: colchicine; digoxin; nelfinavir; phenytoin; an antacid that contains aluminum or magnesium--Acid Gone, Gaviscon, Gelusil, Maalox, Milk of Magnesia, Mylanta, Pepcid Complete, Rolaids, Rulox, and others; or a blood thinner--warfarin, Coumadin, Jantoven. This list is not complete. Other drugs may affect azithromycin, including prescription and ftwe-zsj-iihorom medicines, vitamins, and herbal products. Not all possible drug interactions are listed here. Where can I get more information? Your pharmacist can provide more information about azithromycin. Remember, keep this and all other medicines out of the reach of children, never share your medicines with others, and use this medication only for the indication prescribed. Every effort has been made to ensure that the information provided by [employer]. ('[employer]') is accurate, up-to-date, and complete, but no guarantee is made to that effect. Drug information contained herein may be time sensitive. [employer] information has been compiled for use by healthcare practitioners and consumers in the [place] and therefore [employer] does not warrant that uses outside of the [place] are appropriate, unless specifically indicated otherwise. [employer] drug information does not endorse drugs, diagnose patients or recommend therapy. [employer] drug information isan informational resource designed to assist licensed healthcare practitioners in caring for their p atients and/or to serve consumers viewing this service as a supplement to, and not a substitute for, the expertise, skill, knowledge and judgment of healthcare practitioners. The absence of a warningfor a given drug or drug combination in no way should be construed to indicate that the drug or drug combination is safe, effective or appropriate for any given patient. [employer] does not assume any responsibility for any aspect of healthcare administered with the aid of information [employer] provides. The information contained herein is not intended to cover all possible uses, directions, precautions, warnings, drug interactions, allergic reactions, or adverse effects. If you have questions about the drugs you are taking, check with your doctor, nurse or pharmacist. Copyright [id number] [employer]. Version: 18.01. Revision Date: 01/20/2019. prednisone (PRED gabby Liu What is the most important information I should know about prednisone? You should not use prednisone if you have a fungal infection anywhere in your body. You should not stop using prednisone suddenly. Follow your doctor's instructions about tapering your dose. What is prednisone? Prednisone is a steroid that reduces inflammation in the body, and also suppresses your immune system. Prednisone is used to treat many different conditions such as hormonal disorders, skin diseases, arthritis, lupus, psoriasis, allergic conditions, ulcerative colitis, Crohn's disease, eye diseases, lung diseases, asthma, tuberculosis, blood cell disorders, kidney disorders, leukemia, lymphoma, multi ple sclerosis, organ transplant rejection, swelling from a brain tumor or injury. Prednisone may also be used for purposes not listed in this medication guide. What should I discuss with my healthcare provider before taking prednisone? You should not use prednisone if you are allergic to it, or if you have a fungal infection anywherein your body. Steroid medication can weaken your immune system, making it easier for you to get an infection or worsening an infection you already have. Tell your doctor about any illness or infection you've had within the past several weeks. Tell your doctor if you have ever had: heart problems, high blood pressure, or a heart attack; glaucoma or cataracts; herpes infection of the eyes; past or present tuberculosis; a parasite infection that causes diarrhea (such as threadworms); any illness that causes diarrhea; underactive thyroid; diabetes; a stomach ulcer, diverticulitis; a colostomy or ileostomy; osteoporosis or low bone mineral density (steroid medication can increase your risk of bone loss); low levels of calcium or potassium in your blood; cirrhosis or other liver disease; mental illness or psychosis; or a muscle disorder such as myasthenia gravis. Long-term use of steroids may lead to bone loss (osteoporosis), especially if you smoke or drink alcohol, if you do not exercise, or if you do not get enough vitamin D or calcium in your diet. It is not known whether this medicine will harm an unborn baby. Tell your doctor if you are or plan to become . You should not breastfeed while using prednisone. How should I take prednisone? Follow all directions on your prescription label and read all medication guides or instruction sheets. Your doctor may occasionally change your dose. Use the medicine exactly as directed. Prednisone is taken daily or every other day, depending on the condition being treated. You may need to take the medicine at a certain time of day. Follow your doctor's instructions about when and how often to take this medicine. Take with food if prednisone upsets your stomach. Measure liquid medicine carefully. Use the dosing syringe provided, or use a medicine dose-measuring device (not a kitchen spoon). Swallow the delayed-release tablet whole and do not crush, chew, or break it. Prednisone can weaken (suppress) your immune system, and you may get an infection more easily. [place] doctor if you have signs of infection (fever, weakness, cold or flu symptoms, skin sores, diarrhea, frequent or recurring illness). If you have major surgery or a severe injury or infection, your prednisone dose needs may change. Make sure any doctor caring for you knows you are using this medicine. If you use this medicine long-term, you may need medical tests and vision exams. In case of emergency, wear or carry medical identification to let others know you use a steroid. You should not stop using prednisone suddenly. Follow your doctor's instructions about tapering your dose. Store at room temperature away from moisture, heat, and light. What happens if I miss a dose? Take the medicine as soon as you can, but skip the missed dose if it is almost time for your next dose. Do not take two doses at one time. What happens if I overdose? Seek emergency medical attention or call the Poison Help line at . High doses or long-term use of prednisone can lead to thinning skin, easy bruising, changes in bodyfat (especially in your face, neck, back, and waist), increased acne or facial hair, menstrual problems, impotence, or loss of interest in sex. What should I avoid while taking prednisone? Do not receive a 'live' vaccine while using prednisone. The vaccine may not work as well and may not fully protect you from disease. Live vaccines include measles, mumps, rubella (MMR), polio, rotavirus, typhoid, yellow fever, varicella (chickenpox), zoster (shingles), and nasal flu (influenza) vaccine. Avoid being near people who are sick or have infections. Call your doctor for preventive treatment if you are exposed to chickenpox or measles. These conditions can be serious or even fatal in peoplewho are using steroid medicine. Avoid drinking alcohol. What are the possible side effects of prednisone? Get emergency medical help if you have signs of an allergic reaction: hives; difficult breathing; swelling of your face, lips, tongue, or throat. Call your doctor at once if you have: muscle pain or weakness; blurred vision, tunnel vision, eye pain, or seeing halos around lights; severe depression, changes in personality, unusual thoughts or behavior; bloody or tarry stools, coughing up blood or vomit that looks like coffee grounds; swelling, rapid weight gain, feeling short of breath; irregular heartbeats; severe headache, pounding in your neck or ears; decreased adrenal gland hormones--muscle weakness, tiredness, diarrhea, nausea, menstrual changes, skin discoloration, craving salty foods, and feeling light- headed; or low potassium level--leg cramps, constipation, irregular heartbeats, fluttering in your chest, increased thirst or urination, numbness or tingling, muscle weakness or limp feeling. Prednisone can affect growth in children. Tell your doctor if your child is not growing at a normalrate while using this medicine. Common side effects may include: weight gain (especially in your face or your upper back and torso); increased appetite; mood changes, trouble sleeping; changes in your menstrual periods; problems with memory or thought; muscle or joint pain; weakness; headache, dizziness, spinning sensation; nausea, bloating, loss of appetite; slow wound healing; or acne, increased sweating, thinning skin, bruising, pinpoint spots under your skin. This is not a complete list of side effects and others may occur. Call your doctor for medical advice about side effects. You may report side effects to FDA at 1-398-CMV-5349. What other drugs will affect prednisone? Sometimes it is not safe to use certain medications at the same time. Some drugs can affect your blood levels of other drugs you take, which may increase side effects or make the medications less effective. Tell your doctor about all your current medicines. Many drugs can affect prednisone, especially: bupropion; cyclosporine; digoxin; ketoconazole; an antibiotic; control pills or hormone replacement therapy; a diuretic or 'water pill'; insulin or oral diabetes medicine; a blood thinner--warfarin, Coumadin, Jantoven; or NSAIDs (nonsteroidal anti-inflammatory drugs)--aspirin, ibuprofen (Advil, Motrin), naproxen (Aleve), celecoxib, diclofenac, indomethacin, meloxicam, and others. This list is not complete and many other drugs may affect prednisone. This includes prescription and dbpq-awk-acqrbjs medicines, vitamins, and herbal products. Not all possible drug interactions are listed here. Where can I get more information? Your pharmacist can provide more information about prednisone. Remember, keep this and all other medicines out of the reach of children, never share your medicines with others, and use this medication only for the indication prescribed. Every effort has been made to ensure that the information provided by Anita Margarita. ('[employer]') is accurate, up-to-date, and complete, but no guarantee is made to that effect. Drug information contained herein may be time sensitive. [employer] information has been compiled for use by healthcare practitioners and consumers in the [place] and therefore [employer] does not warrant that uses outside of the [place] are appropriate, unless specifically indicated otherwise. [employer] drug information does not endorse drugs, diagnose patients or recommend therapy. [employer] drug information isan informational resource designed to assist licensed healthcare practitioners in caring for their p atients and/or to serve consumers viewing this service as a supplement to, and not a substitute for, the expertise, skill, knowledge and judgment of healthcare practitioners. The absence of a warningfor a given drug or drug combination in no way should be construed to indicate that the drug or drug combination is safe, effective or appropriate for any given patient. [employer] does not assume any responsibility for any aspect of healthcare administered with the aid of information [employer] provides. The information contained herein is not intended to cover all possible uses, directions, precautions, warnings, drug interactions, allergic reactions, or adverse effects. If you have questions about the drugs you are taking, check with your doctor, nurse or pharmacist. Copyright 4302-5916 Anita Margarita. Version: 10.. Revision Date: 12/16/2018. Education Materials Viral or Bacterial Bronchitis with Wheezing (Adult) Bronchitis is an infection of the air passages. It often occurs during a cold and is usually causedby a virus. Symptoms include cough with mucus (phlegm) and low-grade fever. This illness is contagious during the first few days and is spread through the air by coughing and sneezing, or by direct contact (touching the sick person and then touching your own eyes, nose, or mouth). If there is a lot of inflammation, air flow is restricted. The air passages may also go into spasm,especially if you have asthma. This causes wheezing and difficulty breathing even in people who do not have asthma. Bronchitis usually lasts 7 to 14 days. The wheezing should improve with treatment during the first week. An inhaler is often prescribed to relax the air passages and stop wheezing. Antibiotics will be prescribed if your doctor thinks there is also a secondary bacterial infection. Home care If symptoms are severe, rest at home for the first 2 to 3 days. When you go back to your usual activities, don't let yourself get too tired. Dont s'moke. Also avoid being exposed to secondhand smoke. You may use gnuh-uja-ebbbecq medicine to control fever or pain, unless another medicine was prescribed. Note: If you have chronic liver or kidney disease or have ever had a stomach ulcer or gastrointestinal bleeding, talk with your healthcare provider before using these medicines. Also talk to yourprovider if you are taking medicine to prevent blood clots.) Aspirin should never be given to anyone younger than 18 years of age who is ill with a viral infection or fever. It may cause severe liveror brain damage. Your appetite may be poor, so a light diet is fine. Stay well hydrated by drinking 6 to 8 glasses of fluids per day (such as water, soft drinks, sports drinks, juices, tea, or soup). Extra fluids will help loosen secretions in the nose and lungs. Jiha-ufq-dktffqo cough, cold, and sore-throat medicines will not shorten the length of the illness,but they may be helpful to reduce symptoms. (Note: Don't use decongestants if you have high blood pressure.) If you were given an inhaler, use it exactly as directed. If you need to use it more often than prescribed, your condition may be worsening. If this happens, contact your healthcare provider. If prescribed, finish all antibiotic medicine, even if you are feeling better after only a few days. Follow-up care Follow up with your healthcare provider, or as advised. If you had an X-ray or ECG (electrocardiogram), a specialist will review it. You will be notified of any new findings that may affect your care. If you are age 65 or older, or if you have a chronic lung disease or condition that affects your immune system, or you smoke, ask your healthcare provider about getting a pneumococcal vaccine and a yearly flu shot (influenza vaccine). When to seek medical advice Call your healthcare provider right away if any of these occur: Fever of 100.4 F (38 C) or higher, or as directed by your healthcare provider Coughing up increasing amounts of colored sputum Weakness, drowsiness, headache, facial pain, ear pain, or a stiff neck Call 911 Call 911 if any of these occur. Coughing up blood Worsening weakness, drowsiness, headache, or stiff neck Increased wheezing not helped with medication, shortness of breath, or pain with breathing [id number] [employer]. [address] [place] [address], [place] [address]. All rights reserved. This information is not intended as a substitute for professional medical care. Always follow yourhealthcare professional's instructions. Additional Information VACCINATE! IT SAVES LIVES! Members of the community who have not yet received the COVID-19 vaccine and would like to receive it can visit one of [facility] vaccine clinics. There are many vaccine clinic locations within the [facility]. For locations and available times, please visit www.gettheshot.coronavirus.[place].gov/. It is important to note that some COVID mobile vaccine clinics are held outdoors and may be canceled in rainy or stormy conditions. To learn more about pediatric vaccinations (ages 5-11), we invite you to visit the [facility] webpage. https://www.[employer].org/pages/6825-Ixpsj-Wbflfijjkjk-Rsjwmoulmu-Neass-Rba stions.htmlTo learn more about the COVID-19 vaccine, we invite you to visit the CDC website for a list of frequently asked questions. https://www.cdc.gov/coronavirus/2019-ncov/vaccines/faq.html [facility] Patient Portal Access Instructions: Stay connected with your healthcare team and access your personal medical information anytime with the [facility] Patient Portal. If you would like a full copy of your medical records please contact the [facility] Medical Records Department Thursday through Thursday between 8a.m. and 4:30p.m. Please follow the directions below to access the portal: 1.Access the email account you provided upon registration to the hospital.2.Look for an invitation email from [facility].3.Open the email and access the invitation link: Accept Invitation to [facility]4.Fill in the required bee to create your account. Sign into [email or web address] with your username and password that you created in the above steps to stay up to date. You can then view a summary of results, a summary of your visits, and the ability to download your summaries to your computer or send the information securely to a physician. Remember that your healthcare information is confidential, so carefully consider who you will allow to register on the [facility] Patient Portal for access to your information. You can also access the [facility] Patient Portal on the [employer]. Simply click on Health Records under HealthData and then click on the [facility] logo. HOW TO SAFELY DISPOSE OF PRESCRIPTION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 medications, tests, or procedures. Disclaimer: Portions of this note may have been generated using Payment plugin voice recognition software and is inherently subject to errors including those of syntax and sound-alike substitutions, reasonable efforts were made to correct any dictation errors that resulted due to the programming of this software but some may still be present which may escape proofreading. In such instances, original meaning may be extrapolated by contextual derivation. Electronically signed by Yuliet Fong DO November 02, 2023 8:44 AM documented in [facility]Gu[facility] History of Present illness Narrative* Dangelo Anamaria, OD - 10/23/2023 9:31 AM EST Assessment/Plan: 1. Type 2 diabetes mellitus without retinopathy (HCC) Patient educated on today's exam findings, importance of tight glucose control, and the importance of continued follow up with primary care physician and/or dairy bacteriologist; monitor at complete exam. Diabetes Eye Care Management: -- no diabetic retinopathy on dilated examination OU -- absence of CSDME OU 2. Cataract, nuclear sclerotic, both eyes Educated patient on exam findings; surgical removal is not indicated at this time. Monitor at the next complete exam or sooner with vision changes, worsening symptoms of cataracts (increases in glare/halos/blur). 3. Hyperopia of both eyes Educated patient on exam findings; new glasses prescription released to patient. Monitor complete exam. 4. Regular astigmatism of both eyes See plan 3 5. Presbyopia of both eyes See plan 3 Anamaria Dangelo OD RT 10/2024 diabetic exam documented in this encounterGu[facility]12[facility] History of Past illness Narrative* Problem Noted Date Diagnosed Date Resolved Date Schizoaffective disorder, bipolar type 09/10/2023 11/02/2023 documented as of this encounter (statuses as of 11/02/2023) [facility] History of Past illness Narrative* Problem Noted Date Diagnosed Date Resolved Date Schizoaffective disorder, bipolar type 09/10/2023 11/02/2023 documented as of this encounter (statuses as of 11/06/2023) [facility] History of Past illness Narrative* Problem Noted Date Diagnosed Date Resolved Date Schizoaffective disorder, bipolar type 09/10/2023 11/02/2023 documented as of this encounter (statuses as of 11/10/2023) [facility] History of Past illness Narrative* Problem Noted Date Diagnosed Date Resolved Date Schizoaffective disorder, bipolar type 09/10/2023 11/02/2023 documented as of this encounter (statuses as of 11/12/2023) [facility] of Past illness Narrative* Problem Noted Date Diagnosed Date Resolved Date Schizoaffective disorder, bipolar type 09/10/2023 11/02/2023 documented as of this encounter (statuses as of 11/23/2023) [facility] of Past illness Narrative* Problem Noted Date Diagnosed Date Resolved Date Schizoaffective disorder, bipolar type 09/10/2023 11/02/2023 documented as of this encounter (statuses as of 12/30/2023) [facility] of Past illness Narrative* Problem Noted Date Diagnosed Date Resolved Date Schizoaffective disorder, bipolar type 09/10/2023 11/02/2023 documented as of this encounter (statuses as of 12/30/2023) [facility] of Past illness Narrative* Problem Noted Date Diagnosed Date Resolved Date Schizoaffective disorder, bipolar type 09/10/2023 11/02/2023 documented as of this encounter (statuses as of 12/30/2023) [facility] of Past illness Narrative* Problem Noted Date Diagnosed Date Resolved Date Schizoaffective disorder, bipolar type 09/10/2023 11/02/2023 documented as of this encounter (statuses as of 01/06/2024) [facility] Miscellaneous Notes* Telephone Encounter - Alli Dubon - 09/10/2023 12:18 PM EST Referral to Ophthalmology, Psychiatry, Podiatry, Bariatric Medicine were entered into the [facility] portal on 09/10/2023. Confirmation number [id number], [id number], [id number]. documented in this encounterGuernsey [facility]12-21-2023 History of Present illness Narrative* Duncan Craven MD - 09/10/2023 10:20 AM EST Images from the original note were not included. Duncan Craven MD [facility] Date of Evaluation: 09/10/2023 Patient Name: Venkat Marsh : 1965 Chief Complaint: Patient presents with: ER F/U: Blood in urine DM concerns Nursing Intake: There are no exam notes on file for this visit. Subjective Mr. Marsh is a 58-year-old male who presents for hyperglycemia, glycosuria, and microscopic hematuria. HPI The patient was last seen in our office on 07/07/2023. Patient was referred back to psychiatry for agement of his history of bipolar 1 disorder. He has yet to follow-up with them. TSH was ordered andnot done. X-rays of his bilateral knees were ordered to evaluate for osteoarthritis; however, thesewere not done. The patient was evaluated by [facility] on 08/31/2023 for urinary frequency. Urine dip showed over thousand glucose with trace blood. POC glucose was 526. The patient complained of polydipsia, polyuria, and dizziness. He referred being out of his medication for a month at the time. Patient was advised to go to the ED; however, the patient declined at the time. Doxycycline and Tessalon Perles were prescribed for sinobronchitis. Today, the patient has no acute complaints. His symptoms have largely resolved. In-office A1c today: 14.4%. This is increased from 8.2% on 03/25/2023. Social history: Patient smokes approximately half a pack per day for the past 30 years; drinks alcohol rarely; no current history of illicit drug use, previously used cocaine. Diet: Unclear what patient currently eats; however, he has decreased his intake of pizza, orange juice, and sugar. Pulmonary studies and polysomnogram previously ordered; patient has yet to have these done. Importance of compliance/adherence with medical therapy and recommendations reinforced at today's encounter. Review of Systems Constitutional: Negative for chills and fever. HENT: Negative for hearing loss. Eyes: Negative for visual disturbance. Respiratory: Positive for shortness of breath (when going up stairs). Negative for chest tightness and wheezing. Cardiovascular: Negative for chest pain, palpitations and leg swelling. Gastrointestinal: Negative for abdominal pain, blood in stool, constipation, diarrhea, nausea and vomiting. Genitourinary: Negative for dysuria and hematuria. Musculoskeletal: Positive for arthralgias (bilateral knees chronic). Negative for myalgias. Neurological: Negative for dizziness, weakness, light-headedness, numbness and headaches. Psychiatric/Behavioral: Positive for sleep disturbance (history of insomnia). PAST MEDICAL HISTORY Diagnosis Date Bipolar 1 disorder (HCC) CAD S/P percutaneous coronary angioplasty 2011 [place] Diabetes mellitus (HCC) History of acute myocardial infarction HTN (hypertension) Hypercholesteremia Hypothyroidism PAST SURGICAL HISTORY Procedure Laterality Date ANGIOPLASTY 2011 [facility] STENT COLONOSCOPY 2009 [place] ARTHROSCOPY/SURGERY 2000 loose body removal lt KNEE ARTHROSCOPY/SURGERY 1984 loose body removal lt OSTEOTOMY FIBULA Left 1980 PAST SURGICAL HISTORY OF 1988 Rt wrist bone graft PAST SURGICAL HISTORY OF R navicular REPAIR INGUINAL HERNIA 1986 REPAIR NASAL SEPTUM DEFECT 1996 THYROIDECTOMY SUBTOTAL/PARTIAL 2009 TONSILLECTOMY PRIMARY/SECONDARY <AGE 10 Tonsillectomy Social History Tobacco Use Smoking status: Every Day Packs/day: 0.50 Years: 40.00 Additional pack years: 0.00 Total pack years: 20.00 Types: Cigarettes Start date: 04/21/2023 Smokeless tobacco: Never Vaping Use Vaping Use: Never used Substance Use Topics Alcohol use: No Drug use: No FAMILY HISTORY Problem Relation Age of Onset Cancer Mother uterine other (depression) Maternal Grandmother There are no active hospital problems to display for this patient. PAIN EVALUATION No data found in the last 1 encounters. Current Outpatient Medications Medication Sig albuterol HFA (PROVENTIL HFA, VENTOLIN HFA) 90 mcg/actuation inhaler Inhale 2 Puffs as instructed every 4 hours as needed for wheezing/shortness of breath. aspirin, enteric coated (ADULT LOW DOSE ASPIRIN) 81 mg EC tablet Take 1 tablet by mouth once daily. fluticasone (FLONASE) 50 mcg/actuation nasal spray Use 2 Sprays in the nose. ibuprofen (MOTRIN) 600 mg tablet Take 1 tablet by mouth every 8 hours as needed for Pain. MULTI-VITAMIN ORAL None Entered metFORMIN (GLUCOPHAGE) 1,000 mg tablet Take 1 tablet by mouth two times a day. insulin glargine 100 unit/mL (3 mL) Inject 20 Units subcutaneously once daily. Insulin Whitman, Disposable, (PEN NEEDLE) 32 gauge x 5/32 Inject 1 Each subcutaneously every 24 hours. Give with each insulin administration. metoprolol tartrate, short acting, (LOPRESSOR) 25 mg tablet Take 1 tablet by mouth two times a day. levothyroxine (SYNTHROID) 125 mcg tablet Take 1 tablet by mouth daily before breakfast. losartan (COZAAR) 25 mg tablet Take 1 tablet by mouth two times a day. mirtazapine (REMERON) 15 mg tablet Take 1 tablet by mouth daily at bedtime. rosuvastatin (CRESTOR) 10 mg tablet Take 1 tablet by mouth daily at bedtime. Insulin Syringe-Needle U-100 0.5 mL 31 gauge x 5/16 Inject 1 Each subcutaneously every 24 hours. Give with each insulin administration. No current facility-administered medications for this visit. I have confirmed and edited as necessary the chief complaint, medications, past medical, family andsocial histories obtained by others. Objective BP 129/89 Pulse 88 Temp 36.6 C (97.8 F) Resp 20 Ht 170.2 cm (5' 7) Wt 122.9 kg (271 lb) SpO2 95% BMI 42.44 kg/m Body mass index is 42.44 kg/m . Physical Exam Constitutional: General: He is not in acute distress. Appearance: He is obese. He is not ill-appearing, toxic-appearing or diaphoretic. Cardiovascular: Rate and Rhythm: Normal rate and regular rhythm. Heart sounds: Normal heart sounds. Pulmonary: Effort: Pulmonary effort is normal. Breath sounds: Normal breath sounds. Abdominal: Palpations: Abdomen is soft. Tenderness: There is no abdominal tenderness. There is no guarding. Musculoskeletal: General: Normal range of motion. Cervical back: Normal range of motion. Skin: General: Skin is warm and dry. Neurological: General: No focal deficit present. Mental Status: He is alert and oriented to person, place, and time. Mental status is at baseline. Psychiatric: Mood and Affect: Mood normal. Data Reviewed: Most recent labs and imaging results. ASSESSMENT/PLAN: 1. Uncontrolled type 2 diabetes mellitus with hyperglycemia (HCC) - ICD9: 250.02, ICD10: E11.65 (primary diagnosis) - Uncontrolled - Barriers to control: diet adherence and lack of exercise - Start Insulin glargine (Lantus/Basaglar/Toujeo) - Statin prescribed - rosuvastatin - Referral to Diabetes education - Ophthalmology/optometry for diabetic eye exam - Podiatry for diabetic foot complications - Counseled on healthy diet and regular exercise - Discussed need for and benefit of weight loss. BMI 42.44 kg/(m^2) - Smoking cessation encouraged; discussed risks to health and quitting strategies. Patient is not ready to quit - Discussed diabetic education issues of diabetes complications and monitoring required and hypoglycemic/hyperglycemic symptoms - LIPID PANEL BASIC - ALBUMIN/CREAT RATIO RND UR - CONSULT TO OPHTHALMOLOGY - CONSULT TO PODIATRY - CONSULT TO DIABETES EDUCATION DSME/MNT - BASIC METABOLIC PNL - CBC - ROSUVASTATIN 10 MG TABLET 2. Encounter for screening for lung cancer - ICD9: V76.0, ICD10: Z12.2 - CONSULT LUNG CANCER SCREENING CLINIC 3. Schizoaffective disorder, bipolar type (HCC) - ICD9: 295.70, ICD10: F25.0 - CONSULT TO PSYCHIATRY 4. Cocaine dependence in remission (HCC) - ICD9: 304.23, ICD10: F14.21 5. Bipolar 1 disorder (HCC) - ICD9: 296.7, ICD10: F31.9 - CONSULT TO PSYCHIATRY 6. Mild intermittent asthma, unspecified whether complicated - ICD9: 493.90, ICD10: J45.20 - Continue current medications; patient declined step-up - SPIROMETRY - BASELINE AND POST DILATOR - LUNG VOLUMES - LUNG DIFFUSION CAPACITY (DLCO) 7. Primary hypertension - ICD9: 401.9, ICD10: I10 - Controlled - Continue current medications - Recommend home blood pressure monitoring, to bring results to next visit - Encouraged sodium restriction, DASH or Mediterranean diet - Recommend regular aerobic exercise - Discussed need for and benefit of weight loss. BMI 42.44 kg/(m^2) - Smoking cessation encouraged; discussed risks to health and quitting strategies. Patient is not ready to quit - CBC - LOSARTAN 25 MG TABLET 8. Hx of acute myocardial infarction - ICD9: 412, ICD10: I25.2 - METOPROLOL TARTRATE 25 MG TABLET 9. Morbid obesity (HCC) - ICD9: 278.01, ICD10: E66.01 Weight decreasing - Behavioral intervention - POLYSOMNOGRAM (PSG) - CONSULT TO OBESITY MEDICINE 10. Osteoarthritis of both knees, unspecified osteoarthritis type - ICD9: 715.96, ICD10: M17.0 - XR KNEE LIMITED 2V AP/LAT LEFT - XR KNEE LIMITED 2V AP/LAT RIGHT 11. Hypothyroidism - ICD9: 244.9, ICD10: E03.9 - TSH BLD - LEVOTHYROXINE 125 MCG TABLET 12. Primary insomnia - ICD9: 307.42, ICD10: F51.01 - MIRTAZAPINE 15 MG TABLET Return in about 4 weeks (around 10/08/2023). Discussed the above with the patient using shared decision making. The patient is in agreement with the diagnostic and treatment plans. Patient to follow-up as advised or sooner if problem worsens or does not resolve. Provider: Duncan Craven MD Signed on: September 20, 2023 4:41 PM documented in this [facility]12[facility]23 Discharge summary Author Bean Kwon [facility] September 04, 2023 9:48am Note Date/Time September 04, 2023 7:33am [facility] Medical Records Department [address] [place] [address] Emergency Department Summary 09/04/23 MR#: [id number] Acct: [id number] Name: VENKAT MARSH Rep #:[id number] : 1965 58 From: Bean Kwon MD PCP: CARLTON COLEY Status:REG ER Location: ED ADDENDUM by Dr. Bean Kwon MD on 09/04/23 at 0948 EKG was also obtained interpreted by myself independently which demonstrates normal sinus rhythm at 85 bpm without ectopy or acute ST changes. No STEMI. There is evidence of left bundle branch block. 09/04/23 0948<Electronically signed by Bean Kwon MD> Cosigner Signature (if applicable): cc: CARLTON COLEY ~* Signed HPI History of Present Illness Chief Complaint: Hyperglycemia Narrative Narrative: 58-year-old male past medical history hypertension, states no one told me I wasdiabetic presents with elevated blood sugars for the last few weeks to months. He states that he was seen by his primary care provider at [facility] in the internal medicine center, and was supposed to be starting metformin. Over the last few months he is experienced blurry vision, urinary frequency, and he took his blood sugars which were elevated over 500 yesterday and over 400 this morning without eating. He states he started to take his metformin 500 mg within the last week. He is concerned regarding the elevated blood sugars. Denies any fevers or chills, no nausea or vomiting, no other symptoms. This is with exception of upper respiratory infection type symptoms that has had over the last week, and is on doxycycline for this. He did state that over the last few days because he thought he was getting sick, he drank orange juice and largeamounts. [facility] Home Medications aspirin 325 mg tablet 325 mg PO DAILY@0800 10/15/14 [History Last Taken Unknown] levothyroxine 125 mcg tablet 125 mcg PO DAILY 10/15/14 [History Last Taken Unknown] metoprolol tartrate 50 mg tablet 50 mg PO DAILY 10/15/14 [History Last Taken Unknown] doxycycline hyclate 100 mg capsule 100 mg PO BID ##28 01/12/17 [Rx Last Taken Unknown] Allergy/AdvReac Type Severity Reaction Status Date / Time Sulfa (Sulfonamide Allergy Swelling Verified 09/04/23 07:13 Antibiotics) sulfamethoxazole Allergy Swelling Verified 09/04/23 07:13 [From Bactrim] trimethoprim [From Bactrim] Allergy Swelling Verified 09/04/23 07:13 Social History Smoking Status: Current every day smoker tobacco type: cigarettes ROS ROS ED ROS Narrative Constitutional: No fever, no chills. Elevated blood sugars. HEENT: No sore throat. No neck pain. No loss of vision. Positive blurry vision. No rhinorrhea. Cardiovascular: No chest pain. No palpitations. No pedal edema. Respiratory: No cough, no shortness of breath. Abdominal: No abdominal pain. No nausea. No vomiting. Genitourinary: No dysuria. No hematuria. Ported microscopic hematuria from urgent care. Positive urinary frequency. Musculoskeletal: No myalgias. No arthralgias. Neurologic: No headaches. No dizziness. No lightheadedness. Skin: No rash. No change in color. Psychiatric: No depression. No anxiety. EXAM Physical Exam Narrative Exam Narrative: Afebrile. Vital signs noted. HEENT: Normocephalic. Atraumatic. PERRL, EOMI. Neck soft and supple. No pointtenderness or step off. Cardiovascular: Regular rate and rhythm. No murmurs, rubs, or gallops appreciated. Respiratory: No tachypnea. Lungs clear to auscultation bilaterally. Gastrointestinal: Abdomen soft, pes, nontender, with normoactive bowel sounds. No rebound or guarding. Neurological: Awake. Alert. Nonfocal, nonlateralizing. Skin: No rash. Normal color. No pallor. Musculoskeletal: No pedal edema. Full range of motion extremities. Const Vital Signs: 09/04/23 07:14 09/04/23 07:50 Temperature 96 F L Temperature Source Temporal Pulse Rate 88 Respiratory Rate 20 H Respiratory Pattern Normal Blood Pressure 162/119 H Blood Pressure Mean 133 Pulse Ox 95 Oxygen Delivery Method Room Air MDM MDM MDM Narrative Medical decision making narrative: In the reported elevated blood sugar, concern would be for diabetic hyperglycemia, HON K, diabetic ketoacidosis. Patient did relate history that hestates that he had cold-like symptoms and has been drinking a lot of orange juice and sugary sodas. Patient will be bolused 2 L of normal saline intravenously after BGT checked. I will obtain a CBC, CMP, and acetone levels to help rule out diabetic ketoacidosis. He is currently not tachycardic. He was told not to drink juices and sodas and that he will require follow-up with his primary care provider. He may need to increase his metformin, but already he has shown noncompliance with medication regime as he states that his medications were prescribed months ago. I reviewed his laboratory work and he has normal white count 7.8, hemoglobin normal at 16.2 with hematocrit 46.1, platelet count normal at 226. His sodium is low at 131 with chloride 95, he was bolused 2 L. However I do feel that his sodium may be lowered secondary to his elevated glucose on his CMP as it is elevated at 503. He has a normal anion gap of 9 so I have low concern for diabetic ketoacidosis, this is in combination with the fact that his acetone level is negative. His LFTs are grossly unremarkable. Urinalysis shows no evidence of infection so I do not feel antibiotics are indicated. There are negative ketones. There is glucose consistent with diabetes. After 2 L of normal saline, his blood sugar is now in the 370's. I do feel that with diet modification and continued metformin, that he can follow-up with his primary care provider. He states he has an appointment next week. At this point in time, I do not feel he requires admission. He was strongly encouraged to take his medications. Return instructions to the emergency department were reviewed. Disposition is discharged home in stable condition. History & Record Review Discussion w/independent historian: Patient Additional record(s) reviewed:: Prior ED visit Lab Data Attestation: I reviewed the patient's lab results. Labs: Laboratory Results - last 24 hr 09/04/23 09/04/23 07:38 07:45 WBC 7.8 RBC 5.10 Hgb 16.2 Hct 46.1 MCV 90.4 MCH 31.8 MCHC 35.1 RDW Std Deviation 37.6 RDW Coeff of Amanda 11.4 L Plt Count 226 MPV 10.7 Immature Gran % (Auto) 0.400 Neut % (Auto) 49.9 Lymph % (Auto) 34.0 Rhea % (Auto) 8.1 Eos % (Auto) 7.2 H Baso % (Auto) 0.4 Absolute Neuts (auto) 3.9 Absolute Lymphs (auto) 2.66 Nucleated RBC % 0 Sodium 131 L Potassium 4.1 Chloride 95 L Carbon Dioxide 27.0 Anion Gap 9 BUN 12 Creatinine 1.12 Estim Creat Clear Calc 67.86 Est GFR (MDRD) Af Amer 86 Est GFR (MDRD) Non-Af 71 BUN/Creatinine Ratio 10.7 Glucose 503 H* Calcium 8.9 Total Bilirubin 0.20 AST 20 ALT 38 Alkaline Phosphatase 78 Total Protein 7.0 Albumin 3.1 L Globulin 3.9 Albumin/Globulin Ratio 0.8 L Urine Color Yellow Urine Clarity Clear Urine pH 7.0 Ur Specific [place] 1.010 Urine Protein 30 H Urine Glucose (UA) 1000 H Urine Ketones Negative Urine Occult Blood 10 H Urine Nitrite Negative Urine Bilirubin Negative Urine Urobilinogen Normal Ur Leukocyte Esterase Negative Urine RBC 0 SEEN Urine WBC 0 SEEN Ur Squamous Epith Cells 0 SEEN Urine Bacteria 0 SEEN Urine Mucus 0 SEEN Acetone Level NEGATIVE Discharge Plan Triage Chief Complaint: Hyperglycemia ED Provider: Bean Kwon Dx/Rx/DC Orders Clinical Impression: Hyperglycemia, Diabetes Instructions: ED Diabetes- Overview, ED Diabetic Hyperglycemia, ED Diet: Diabetes Prescriptions: No Action aspirin 325 MG tablet 325 mg PO DAILY@0800 levothyroxine 125 MCG tablet 125 mcg PO DAILY metoprolol tartrate 50 MG tablet 50 mg PO DAILY doxycycline hyclate 100 MG capsule 100 mg PO BID Qty: 28 0RF Primary Care Provider: CARLTON COLEY Referrals: NOT,DEFINED [Non-Staff] - Activity Restrictions/Additional Instructions: Make sure you are taking your metformin 500 mg twice daily as previously directed. Follow-up with your primary care provider next week as scheduled. Disposition Disposition: Home, Self Care What to do if you have Problems For any increased pain, shortness of breath, bleeding, nausea or vomiting, chestpain, or any unexpected problems, contact your Primary Care Provider. Call [facility] ([phone]) or report to the closest Emergency Room. Call 911 if necessary. 09/04/23 8872 <Electronically signed by Bean Kwon MD> Cosigner Signature (if applicable): CC: CARLTON COLEY ~ Signed [facility] Work Phone: [phone] Telephone encounter Note* Telephone Encounter - Kym Medina RN - 09/03/2023 1:04 PM EST S: Patient called the clinical access center with complaint of Blood in urine advised it may be cancer. BS is 525, fatigue falling asleep on the phone. He is switching from [place] to [employer] and needsto switch to [facility] PCP. B: Ongoing months. A: [facility] today went in for bronchitis had blood in his urine and was told he had potential for cancer. Blood sugar 525 now, he took it this morning 329 has not been taking his metformin. Has been drinking gallons of orange juice and his blood sugar is very high. Urinating all the time unable to make it to the bathroom. Falling asleep constantly. Very thirsty, tongue is dry. Advised to go to the ED states [facility] R: New patient appointment scheduled 10/05/22. Insurance verified. Instructed to bring medications to OV and arrive 15 minutes early. Advised to stop drinking orange juice and regular pop needs to bedrinking water . States he is going to the Ed now. Patient instructed to call back with worsening symptoms, concerns or questions. Patient verbalized understanding. Message to the office for review by the provider and needs recommendation from Provider for treatment going forward. Reason for Disposition Blood glucose > 500 mg/dL (27.8 mmol/L) Protocols used: Diabetes - High Blood [id number] Modo [id number] Miscellaneous Notes* Telephone Encounter - Kym Medina RN - 09/03/2023 1:04 PM EST S: Patient called the clinical access center with complaint of Blood in urine advised it may be cancer. BS is 525, fatigue falling asleep on the phone. He is switching from [place] to [employer] and needsto switch to [facility] PCP. B: Ongoing months. A: [facility] you today went in for bronchitis had blood in his urine and was told he had potential for cancer. Blood sugar 525 now, he took it this morning 329 has not been taking his metformin. Has been drinking gallons of orange juice and his blood sugar is very high. Urinating all the time unable to make it to the bathroom. Falling asleep constantly. Very thirsty, tongue is dry. Advised to go to the ED states he will call someone to take him to [place] ED R: New patient appointment scheduled 10/05/22. Insurance verified. Instructed to bring medications to OV and arrive 15 minutes early. Advised to stop drinking orange juice and regular pop needs to bedrinking water . States he is going to the Ed now. Patient instructed to call back with worsening symptoms, concerns or questions. Patient verbalized understanding. Message to the office for review by the provider and needs recommendation from Provider for treatment going forward. Reason for Disposition Blood glucose > 500 mg/dL (27.8 mmol/L) Protocols used: Diabetes - High Blood Wykhd-COPYV-TA documented in this [facility]12-11-2023 Miscellaneous Notes* Addendum Note - Arnulfo Jernigan PA-C - 08/31/2023 6:43 PM ESTAddended by: ARNULFO JERNIGAN on: 08/31/2023 06:43 PM Modules accepted: Orders documented in this encounterGu[facility]12-11-2023 History of Present illness Narrative* Arnulfo Jernigan PA-C - 08/31/2023 6:06 PM EST This note was created using Fantáxicoter. Subjective Venkat Marsh is a 58 year old male. HPI Presents with a chief complaint of cough, congestion, sinus pressure for 2 weeks. He has had some shortness of breath and wheezing. He does have a history of COPD. He is a smoker. No diarrhea or vomiting. He has had urinary frequency and increased thirst. He also has had some dizziness off and on. No chest pain. Has a history of diabetes. States he has been off of his meds for about a month. He takes metformin and glipizide. Patient does admit to drinking 4 gallons of orange juice this week. Denies fever. Review of Systems Constitutional: Negative. HENT: Positive for congestion, sinus pressure and sinus pain. Negative for ear pain. Respiratory: Positive for cough, shortness of breath and wheezing. Cardiovascular: Negative. Gastrointestinal: Negative. Endocrine: Positive for polydipsia and polyuria. Genitourinary: Positive for frequency. Negative for dysuria, hematuria and testicular pain. Musculoskeletal: Negative. All other systems reviewed and are negative. PAST MEDICAL HISTORY Diagnosis Date Bipolar 1 disorder (HCC) CAD S/P percutaneous coronary angioplasty 2011 [place] Diabetes mellitus (HCC) History of acute myocardial infarction HTN (hypertension) Hypercholesteremia Hypothyroidism Current Outpatient Medications Medication Sig Dispense Refill albuterol HFA (PROVENTIL HFA, VENTOLIN HFA) 90 mcg/actuation inhaler Inhale 2 Puffs as instructed every 4 hours as needed for wheezing/shortness of breath. 6.7 g 0 losartan (COZAAR) 25 mg tablet Take 1 tablet by mouth once daily. 90 tablet 3 metFORMIN (GLUCOPHAGE) 1,000 mg tablet Take 1 tablet by mouth two times a day. 180 tablet 0 aspirin, enteric coated (ADULT LOW DOSE ASPIRIN) 81 mg EC tablet Take 1 tablet by mouth once daily.90 tablet 3 benzonatate (TESSALON PERLES) 100 mg capsule Take 2 capsules by mouth every 8 hours as needed for cough (swallow capsule, do not chew.). 60 capsule 0 rosuvastatin (CRESTOR) 10 mg tablet Take 1 tablet by mouth daily at bedtime. 90 tablet 3 fluticasone (FLONASE) 50 mcg/actuation nasal spray Use 2 Sprays in the nose. ibuprofen (MOTRIN) 600 mg tablet Take 1 tablet by mouth every 8 hours as needed for Pain. 30 tablet0 levothyroxine (SYNTHROID) 125 mcg tablet Take 125 mcg by mouth daily before breakfast. MULTI-VITAMIN ORAL None Entered benzonatate (TESSALON PERLES) 100 mg capsule Take 2 capsules by mouth three times a day as needed. 30 capsule 0 doxycycline (VIBRA-TABS) 100 mg tablet Take 1 tablet by mouth two times a day for 7 days. 14 tablet0 mirtazapine (REMERON) 15 mg tablet Take 1 tablet by mouth daily at bedtime. 30 tablet 0 metFORMIN (GLUCOPHAGE) 500 mg tablet Take 1 tablet by mouth daily with dinner for 14 days, THEN 1 tablet two times a day with meals for 14 days. 42 tablet 0 metFORMIN (GLUCOPHAGE) 500 mg tablet Take 1 tablet by mouth daily with breakfast AND 2 tablets daily with dinner. Do all this for 14 days. 42 tablet 0 metoprolol tartrate, short acting, (LOPRESSOR) 25 mg tablet Take 25 mg by mouth twice daily. (Patient not taking: Reported on 07/07/2023) pantoprazole DR (PROTONIX) 40 mg tablet Take 1 tablet by mouth once daily. 30 tablet 0 No current facility-administered medications for this visit. PAST SURGICAL HISTORY Procedure Laterality Date ANGIOPLASTY 2011 [facility] STENT COLONOSCOPY 2009 ELBOW ARTHROSCOPY/SURGERY 2000 loose body removal lt KNEE ARTHROSCOPY/SURGERY 1984 loose body removal lt OSTEOTOMY FIBULA Left 1980 PAST SURGICAL HISTORY OF 1988 Rt wrist bone graft PAST SURGICAL HISTORY OF R navicular REPAIR INGUINAL HERNIA 1986 REPAIR NASAL SEPTUM DEFECT 1996 THYROIDECTOMY SUBTOTAL/PARTIAL 2009 TONSILLECTOMY PRIMARY/SECONDARY <AGE 12 Tonsillectomy FAMILY HISTORY Problem Relation Age of Onset Cancer Mother uterine other (depression) Maternal Grandmother Social History Tobacco Use Smoking status: Every Day Packs/day: 0.50 Years: 40.00 Additional pack years: 0.00 Total pack years: 20.00 Types: Cigarettes Start date: 04/21/2023 Smokeless tobacco: Never Vaping Use Vaping Use: Never used Substance Use Topics Alcohol use: No Drug use: No Objective BP 151/104 Pulse 99 Temp 36.4 C (97.5 F) Resp 20 Wt 127.8 kg (281 lb 12.8 oz) SpO2 95% BMI 44.14 kg/m Physical Exam Vitals reviewed. Constitutional: Appearance: Normal appearance. HENT: Head: Normocephalic and atraumatic. Right Ear: Tympanic membrane, ear canal and external ear normal. Left Ear: Tympanic membrane, ear canal and external ear normal. Nose: Right Sinus: Maxillary sinus tenderness present. Left Sinus: Maxillary sinus tenderness present. Mouth/Throat: Mouth: Mucous membranes are moist. Pharynx: Oropharynx is clear. Cardiovascular: Rate and Rhythm: Normal rate and regular rhythm. Heart sounds: Normal heart sounds. Pulmonary: Effort: Pulmonary effort is normal. Breath sounds: Normal breath sounds. Musculoskeletal: Cervical back: Neck supple. Skin: General: Skin is warm and dry. Neurological: Mental Status: He is alert. Assessment and Plan ASSESSMENT/PLAN: 1. Urinary frequency - ICD9: 788.41, ICD10: R35.0 (primary diagnosis) Patient urine dip showed over thousand glucose with trace blood. His POC glucose here is 526. I recommended that the patient be evaluated in the emergency department for this. He has had dizziness, polydipsia and polyuria. Has been out of his meds for a month. Patient states he could not go tonightdue to not having his own vehicle. I stressed with him the importance of being seen there tonight for this due to possible other electrolyte abnormalities and DKA possibility of . Patient understood this but again decided to take his metformin and glipizide he has. I advised again to be seen in the ER. - UA DIP, URINE (POC) - GLUCOSE, BLOOD (POC) 2. Hyperglycemia - ICD9: 790.29, ICD10: R73.9 3. Sinobronchitis - ICD9: 473.9, 490, ICD10: J32.9, J40 - doxycycline and tessalon sent. Arnulfo Jernigan PA-C documented in this encounterGu[facility]11-22-2023 Miscellaneous Notes* Telephone Encounter - Gavin Betancur DO - 08/12/2023 8:31 AM EST Refill ordered * Telephone Encounter - Yamini Delarosa LPN - 08/11/2023 1:22 PM EST Last Office Visit Date: 07/07/2023 Last [facility] [place] [facility] Visit: Visit date not found Has the patient had an appointment at [facility] in the past year, or do they have an upcoming appointment scheduled at [facility]? YES- Continue with refill request. Future Appointment: Visit date not found Pharmacy faxed requesting the following refill Refill(s) Requested: Requested Prescriptions Pending Prescriptions Disp Refills albuterol HFA (PROVENTIL HFA, VENTOLIN HFA) 90 mcg/actuation inhaler 6.7 g 0 Sig: Inhale 2 Puffs as instructed every 4 hours as needed for wheezing/shortness of breath. ALLERGIES Allergen Reactions Bactrim [Sulfametho* Rash, Swelling not airway Bactrim [Sulfametho* Swelling Sulfamethoxazole-Tr* Hives (home) [phone] (cell) The patients preferred pharmacy has been captured for this encounter? yes Request is for script(s) to be faxed to pharmacy. Yamini Delarosa LPN documented in this encounterGu[facility]11-08-2023 Miscellaneous Notes* Telephone Encounter - Shayna George LPN - 07/29/2023 2:48 PM EST Spoke to Mr. Marsh about test results. Patient voiced understanding. Mentioned his blood pressure was doing better thanks to medication. Shayna George LPN * Telephone Encounter - Shayna George LPN - 07/29/2023 2:44 PM EST ----- Message from Yousuf Ponce MD sent at 07/29/2023 2:37 PM EST ----- Can you please let Mr. Marsh know that his nuclear stress test was unremarkable, without evidence of myocardial ischemia or scar. Thanks, Yousuf Ponce MD documented in this encounterGuernsey [facility] Hospital11-08-2023 History of Present illness Narrative* Rocky Yi, RT(R) - 07/29/2023 11:30 AM EST RADIOLOGY SERVICE PROGRESS NOTE SERVICE DATE: 07/29/2023 SERVICE TIME: 1:22 PM PATIENT IDENTITY VERIFICATION COMPLETED USING TWO (2) STANDARD IDENTIFIERS: Name and Date of confirmed by patient verbally FALL SCREENING: Has the patient had 2 falls in the last year or 1 fall with injury or currently using an Ambulatory Assistive Device (Walker, Cane, Wheelchair, Crutches, etc.)? No PATIENT GENDER DATA: .male ALLERGIES: Reviewed and unchanged MEDICATIONS REVIEWED: No PATIENT RELEVANT IMPLANT DATA REVIEWED: Not Applicable CREATININE: Creatinine Date Value Ref Range Status 03/25/2023 1.19 0.73 - 1.22 mg/dL Final 08/24/2014 1.34 0.70 - 1.40 mg/dL Final Estimated Glomerular Filtration Rate Date Value Ref Range Status 03/25/2023 70 >=60 mL/min/1.73m Final Comment: Estimated Glomerular Filtration Rate (eGFR) is calculated using the 2020 CKD-EPI creatinine equation. This equation utilizes serum creatinine, sex, and age as parameters. The creatinine assay has traceable calibration to isotope dilution- mass spectrometry. Refer to KDIGO guidelines for clinical interpretation. In patients with unstable renal function, e.g. those with acute kidney injury, the eGFRmay not accurately reflect actual GFR. eGFR- Date Value Ref Range Status 08/24/2014 >60 Final P.O.C.T. RESULTS: N/A July 29, [address] PERFORMED: No IV SITE: Ambulatory: A peripheral IV was started in the Left hand with a Angio cath: 22 gauge. POST EXAM PIV STATUS: Discontinued PROCEDURE TYPE: NM Stress: 15.6 mCi [id number] was administered IV for Rest Imaging at 1145 by try. 47.7 mCi [id number] was administered IV for Stress Imaging at 115 by ty. ADMINISTRATION TIME: 1145 PATIENT DISCHARGED TO: Ambulatory patient, left NM department area. A Diagnostic radioactive procedure has taken place, with no further precautions necessary other than routine body substance precautions. More information regarding radiation safety can be found usingthis link: [email or web address]%[email or web address] SIGNATURE: MASOUD Ferreira) PATIENT NAME: Venkat Marsh DATE: July 29, 2023 TIME: 1:22 PM PAGER/CONTACT #: * Carlos Dobbins Ingot Buggy Operator - 07/29/2023 11:30 AM EST Lexiscan nuclear stress test completed. Patient verbalized understanding of test and pain scale. IVstarted by nursing staff prior to testing and removed by nursing staff at test end. documented in this encounterGuernsey [facility] Hospital11-08-2023 Miscellaneous Notes* Telephone Encounter - Alli Dubon - 07/29/2023 8:42 AM EST Patient was contacted in an effort to schedule his [address] follow up with Dr. Betancur. At the timeof call, patient had declined to schedule an appointment. documented in this encounterGuernsey [facility]10-17-2023 History of Present illness Narrative* Gavin Beatncur DO - 07/07/2023 11:05 AM EDT Images from the original note were not included. [facility] Gavin Betancur DO ASSESSMENT/PLAN: 1. Hypothyroidism, unspecified type - ICD9: 244.9, ICD10: E03.9 (primary diagnosis) - Instructed patient on importance of taking on an empty stomach either first thing in the morning or at bedtime. - TSH BLD 2. Primary insomnia - ICD9: 307.42, ICD10: F51.01 - MIRTAZAPINE 15 MG TABLET - TRAZODONE 100 MG TABLET - Instructed patient on refill requests 3. Uncontrolled type 2 diabetes mellitus with hyperglycemia (HCC) - ICD9: 250.02, ICD10: E11.65 - Control undetermined, due for labs - Unclear if patient is taking metformin, unable to be discussed during visit - Will restart metformin taper 4. Bipolar 1 disorder (HCC) - ICD9: 296.7, ICD10: F31.9 - Patient has yet to follow up with Psychiatry 5. Primary hypertension - ICD9: 401.9, ICD10: I10 - Uncontrolled - Continue current medications - Recommend home blood pressure monitoring, to bring results to next visit - Encouraged sodium restriction, DASH or Mediterranean diet - Recommend regular aerobic exercise - LOSARTAN 25 MG TABLET -Refill of lost medication 6. Osteoarthritis of both knees, unspecified osteoarthritis type - ICD9: 715.96, ICD10: M17.0 - XR KNEE LIMITED 2V AP/LAT RIGHT - XR KNEE LIMITED 2V AP/LAT LEFT - Consider ortho follow up, unable to be adequately discussed at visit Gavin Betancur DO HPI: Venkat Marsh is a 58 year old male with PMHx: Bipolar 1 disorder STEMI PCI to LAD 2012 Type 2 diabetes mellitus HTN HLD Hypothyroidism ELBERT Not on CPAP Here today for follow up and to discuss multiple medical problems, including his knees which are beginning to cause him significant pain. Due to patients arriving late to their appointments prior to his appointment, Mr. Marsh was seen roughly 30 minutes later than his scheduled visit time. He was understandably frustrated. However, as this is a resident clinic I informed him I must staff with an attending before confirming his treatment plan. While staffing, patient attempted to leave. Patient was persuaded to return to his room briefly to go over some of the orders placed during this visit. However, not everything was discussed in great detail. Despite my desire to discuss his diabetes medication, this could not be accomplished. It is unclear if the patient has been taking metformin or not. Will discuss at future visits, however refill placed today. Bilateral knee pain Subjective anterior swelling Posterior knee pain No cracking/popping Exacerbated by persistent weight bearing Normal range of motion Endorses a loose body in one of the knees that was surgically removed in the past ?URI Was experiencing persistent mucus production in his oropharynx after exposure to COVID while incarcerated years ago 06/30 - walk in clinic gave 7 days of doxycycline + bactroban for abdominal infection Symptoms have improved, no longer has persistent wheezing, however believes he may need more doxycycline in the future. HTN Recently evaluated by Dr. Ponce in Cardiology who started him on losartan 25 mg daily. Patient states he lost this medication, and would like a refill today. T2DM Metformin seems to have accidentally been discontinued following his surgery for his left Dupuytrencontracture Unable to discuss this issue, see above. Insomnia Patient has not taken trazodone or mirtazapine since April, as he was unaware he could/should request refills. ELBERT Patient expressed concern about recent recalls for CPAP machines due to bacterial infections, and as such is hesitant to start using one. Repeat falls Discussed at previous visits No recent falls, but again states he has fell a couple of times in the last 6 months States his balance is off Has no trouble walking or ambulating Upon further questioning it seems the majority of these falls are due to him falling out of bed while asleep, and as such he would like a prescription for a medical bed with rails. Medical skepticism Mother from medical error Developed pancreatic cancer from Zantac use States that when they went to [employer], the company declared bankruptcy States that she had mesh put in her that was pressing on her organs and cut her in half PAST MEDICAL HISTORY Diagnosis Date Bipolar 1 disorder (HCC) CAD S/P percutaneous coronary angioplasty 2011 [place] Diabetes mellitus (HCC) History of acute myocardial infarction HTN (hypertension) Hypercholesteremia Hypothyroidism PAST SURGICAL HISTORY Procedure Laterality Date ANGIOPLASTY 2011 [facility] STENT COLONOSCOPY 2009 [place] ARTHROSCOPY/SURGERY 2000 loose body removal lt KNEE ARTHROSCOPY/SURGERY 1984 loose body removal lt OSTEOTOMY FIBULA Left 1980 PAST SURGICAL HISTORY OF 1988 Rt wrist bone graft PAST SURGICAL HISTORY OF R navicular REPAIR INGUINAL HERNIA 1986 REPAIR NASAL SEPTUM DEFECT 1996 THYROIDECTOMY SUBTOTAL/PARTIAL 2008 TONSILLECTOMY PRIMARY/SECONDARY <AGE 10 Tonsillectomy Social History Tobacco Use Smoking status: Every Day Packs/day: 0.50 Years: 40.00 Additional pack years: 0.00 Total pack years: 20.00 Types: Cigarettes Start date: 04/21/2023 Smokeless tobacco: Never Vaping Use Vaping Use: Never used Substance Use Topics Alcohol use: No Drug use: No FAMILY HISTORY Problem Relation Age of Onset Cancer Mother uterine other (depression) Maternal Grandmother PAIN EVALUATION No data found in the last 1 encounters. ALLERGIES Allergen Reactions Bactrim [Sulfametho* Rash, Swelling not airway Bactrim [Sulfametho* Swelling Sulfamethoxazole-Tr* Hives Current Outpatient Medications Medication Sig aspirin, enteric coated (ADULT LOW DOSE ASPIRIN) 81 mg EC tablet Take 1 tablet by mouth once daily. doxycycline monohydrate 100 mg tablet Take 1 tablet by mouth two times a day for 7 days. mupirocin (BACTROBAN) 2 % ointment Apply 1 application to affected area three times a day for 7 days. benzonatate (TESSALON PERLES) 100 mg capsule Take 2 capsules by mouth every 8 hours as needed for cough (swallow capsule, do not chew.). rosuvastatin (CRESTOR) 10 mg tablet Take 1 tablet by mouth daily at bedtime. albuterol HFA (PROVENTIL HFA, VENTOLIN HFA) 90 mcg/actuation inhaler Inhale 2 Puffs as instructed every 4 hours as needed for wheezing/shortness of breath. fluticasone (FLONASE) 50 mcg/actuation nasal spray Use 2 Sprays in the nose. pantoprazole DR (PROTONIX) 40 mg tablet Take 1 tablet by mouth once daily. ibuprofen (MOTRIN) 600 mg tablet Take 1 tablet by mouth every 8 hours as needed for Pain. levothyroxine (SYNTHROID) 125 mcg tablet Take 125 mcg by mouth daily before breakfast. MULTI-VITAMIN ORAL None Entered losartan (COZAAR) 25 mg tablet Take 1 tablet by mouth once daily. mirtazapine (REMERON) 15 mg tablet Take 1 tablet by mouth daily at bedtime. traZODone (DESYREL) 100 mg tablet Take 1 tablet by mouth daily at bedtime. metoprolol tartrate, short acting, (LOPRESSOR) 25 mg tablet Take 25 mg by mouth twice daily. (Patient not taking: Reported on 07/07/2023) No current facility-administered medications for this visit. I have confirmed and edited as necessary the chief complaint, medications, past medical, family andsocial histories. Review of Systems - see HPI OBJECTIVE: BP 146/93 Pulse 87 Temp 36.6 C (97.8 F) Wt 132 kg (291 lb) SpO2 94% BMI 45.58 kg/m Physical Exam Constitutional: General: He is not in acute distress. Appearance: He is obese. He is not ill-appearing. HENT: Head: Normocephalic and atraumatic. Right Ear: External ear normal. Left Ear: External ear normal. Mouth/Throat: Mouth: Mucous membranes are moist. Pharynx: Oropharynx is clear. No oropharyngeal exudate or posterior oropharyngeal erythema. Eyes: General: No scleral icterus. Extraocular Movements: Extraocular movements intact. Pupils: Pupils are equal, round, and reactive to light. Cardiovascular: Rate and Rhythm: Normal rate and regular rhythm. Pulses: Normal pulses. Heart sounds: Normal heart sounds. No murmur heard. Pulmonary: Effort: Pulmonary effort is normal. No respiratory distress. Breath sounds: Normal breath sounds. No wheezing. Abdominal: General: Bowel sounds are normal. There is no distension. Palpations: Abdomen is soft. There is no mass. Tenderness: There is no abdominal tenderness. Musculoskeletal: General: No swelling or tenderness. Cervical back: No tenderness. Right lower leg: No edema. Left lower leg: No edema. Comments: Bilateral knees: No tenderness to palpation, medial and lateral joint lines Lymphadenopathy: Cervical: No cervical adenopathy. Skin: General: Skin is warm and dry. Capillary Refill: Capillary refill takes less than 2 seconds. Coloration: Skin is not jaundiced. Neurological: General: No focal deficit present. Mental Status: He is alert and oriented to person, place, and time. Psychiatric: Mood and Affect: Mood normal. Behavior: Behavior normal. Thought Content: Thought content normal. Judgment: Judgment normal. Comments: Tangential speech Return in about 3 months (around 10/07/2023). Discussed the above with the patient and my preceptor using shared decision-making. The patient is in agreement with the diagnostic and treatment plans. Provider: Gavin Betancur DO Signed on: July 07, 2023 11:05 AM documented in this [facility]10[facility] History of Present illness Narrative* Denise Regan MD - 07/07/2023 9:12 AM EDT Patient Name: Venkat Marsh PRIMARY CARE PHYSICIAN: Duncan Craven MD Date of visit: July 07, [address] Yousuf Ponce for an opinion regarding Venkat Marsh. My final recommendations will be communicated back to the requesting physician by way of shared Medical record or letter to requesting physician via US mail. HPI: Venkat Marsh is a 58 year old male who is new to this clinic for evaluation of shortness of breath. He has a PMHx of CAD, OK in 2012 s/p PCI to the LAD, DM, HTN, HLD, hypothyroidism, bipolar disorderOSA not on CPAP, morbid obesity, tobacco abuse (about 20 pack years), and GERD. Reports shortness of breath with exertion for over 10 years but has been getting worse for the past4-5 years. Has to sit down after one flight of steps. Can't catch his breath. When he uses albuterol, makes him feel worse. Had COVID whenever it was going around, when he was incarcerated. Coughing started around that time, coughing for at least 3 years. A lot of coughing, dry cough, sometimes brings up mucus that is like hard glue Feels like there is something is in this throat Wheezes constantly but says it is better right now since he is on an antibiotic for a skin infection. Diagnosed with ELBERT on sleep study maybe 20 years ago Snores, sleepy all of the time, falls asleep constantly, apneic episodes at night Drinks a lot of caffeine. Terrible seasonal allergies, uses Flonase which works well. Multiple falls recently Gets dizzy, lightheaded. Doesn't see things turning black. Saw cardiology 06/26. Ordered nuclear stress test. 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 doxycycline monohydrate 100 mg tablet Take 1 tablet by mouth two times a day for 7 days. mupirocin (BACTROBAN) 2 % ointment Apply 1 application to affected area three times a day for 7 days. benzonatate (TESSALON PERLES) 100 mg capsule Take 2 capsules by mouth every 8 hours as needed for cough (swallow capsule, do not chew.). rosuvastatin (CRESTOR) 10 mg tablet Take 1 tablet by mouth daily at bedtime. losartan (COZAAR) 25 mg tablet Take 1 tablet by mouth once daily. albuterol HFA (PROVENTIL HFA, VENTOLIN HFA) 90 mcg/actuation inhaler Inhale 2 Puffs as instructed every 4 hours as needed for wheezing/shortness of breath. metoprolol tartrate, short acting, (LOPRESSOR) 25 mg tablet Take 25 mg by mouth twice daily. fluticasone (FLONASE) 50 mcg/actuation nasal spray Use 2 Sprays in the nose. pantoprazole DR (PROTONIX) 40 mg tablet Take 1 tablet by mouth once daily. mirtazapine (REMERON) 15 mg tablet Take 1 tablet by mouth daily at bedtime. ibuprofen (MOTRIN) 600 mg tablet Take 1 tablet by mouth every 8 hours as needed for Pain. levothyroxine (SYNTHROID) 125 mcg tablet Take 125 mcg by mouth daily before breakfast. MULTI-VITAMIN ORAL None Entered Allergies: Bactrim [Sulfamethoxazole], Bactrim [Sulfamethoxazole], and Sulfamethoxazole-Trimethoprim PHYSICAL EXAM: BP 142/97 Pulse 95 Temp (Src) 96 (Temporal) Resp 24 Ht 5' 7 (1.70m) Wt 293 lb 9 oz (133.2kg) SpO2 93% BMI 45.97 kg/(m^2). General- nad, comfortable in general appearance Neck- supple, no obvious JVD CV- RRR, no M/G/R Resp- clear to auscultation bilaterally, no wheezes or crackles, breathing nonlabored Abd- +bs, soft, nt, nd Ext- no clubbing, cyanosis, or edema Neuro- no gross focal motor or sensory deficits Derm- no lesions/rashes Psych- appropriate mood and affect Assessment/Plan: # Dyspnea on exertion x 10 years, progressive past 4-5 years - Suspect most likely multifactorial from cardiac etiology, possibly pulmonary etiology (COPD/asthma), obesity, and deconditioning. - Obtain full series PFTs - Obtain CXR - Follow up cardiac workup with echo and stress test - Encouraged physical activity, incorporating exercise # Sleep disordered breathing - STOP-BANG 8. Excessive daytime sleepiness. - Obtain home sleep study. Return in about 3 months (around 10/07/2023). Denise Regan MD July 07, 2023 10:34 AM documented in this encounterGu[facility]10-13-2023 Miscellaneous Notes* Telephone Encounter - Minerva Christy - 07/03/2023 1:04 PM EDT N/S 07-03-23 CALLED PT TO R/S PO APPT PERSON WHO ANSWERED PHONE SAID PT WAS NOT THERE AND DID NOT KNOW HOW TO GET IN TOUCH WITH HIM. NO OTHER INFORMATION WAS GIVEN NO ANSWER ON OTHER NUMBER LB 07-03-23 documented in this encounterGu[facility]10-10-2023 History of Present illness Narrative* Rose Mary Stahl APRN.ELEMENTARY SUPERVISOR - 06/30/2023 12:52 PM EDT Images from the original note were not included. This note was created using [employer]. Subjective Venkat Marsh is a 58 year old male. HPI by patient: Venkat Marsh is a 58 year old presenting to the office with multiple complaints. CC: Viral Syndrome (Sxs started 2 yrs ago pt has been coughing up phlegm, has been incarcerated does not feel like he was taken care of in there, Pt stated Also pt stated he needs a antibiotic.) Stomach abcess (Pt stated he is getting septic around his stomach pt noticed it a few days ago.) 1.) skin infection. Had surgery last month on the left hand. Feels he has an infection on his abdomen. Had some drainage last night. Has some redness around where it drained and feels hot. 2.) shortness of breath. Ongoing since covid. [place] [facility], thinks he got covid while in there. Never had a positive test. Associated symptoms include chronic cough- bronchitis. Was able to quit smoking. Has some wheezing and shortness of breath but states his albuterol makes it worse. States everyone is stingy with antibiotics. States when I was in the [facility] they would give me Levaquin. Denies fever, congestion, and gi symptoms. Covid Immunization Dates Overdue - Covid-19 Vaccine (1) Overdue - never done No completion, postpone, frequency change, or communication history exists for this topic. Sick contacts: none. Smoking history/second hand smoke: none. OTC not helping. No antibiotic use in the last 60 days. ALLERGIES Bactrim [Sulfametho* Rash, Swelling Comment:not airway Bactrim [Sulfametho* Swelling Sulfamethoxazole-Tr* Hives Family History Reviewed Including Cardiac Diseases, Psychiatric Diseases, & Substance Abuse Problem: Cancer Relation: Mother Age of Onset: (Not Specified) Comment: uterine Problem: other (depression) Relation: Maternal Grandmother Age of Onset: (Not Specified) Social History Tobacco Use Smoking status: Former Packs/day: 0.30 Years: 40.00 Additional pack years: 0.00 Total pack years: 12.00 Types: Cigarettes Smokeless tobacco: Never Vaping Use Vaping Use: Never used Alcohol use: No Drug use: No Active Ambulatory Problems CAD (coronary artery disease) Date Noted: 09/04/2014 S/P coronary artery stent placement Date Noted: 09/04/2014 Left bundle branch block (LBBB) on electrocardiogram Date Noted: 09/04/2014 H/O myocardial infarction, greater than 8 weeks Date Noted: 09/04/2014 Tobacco abuse Date Noted: 09/04/2014 Obesity Date Noted: 09/04/2014 Status post insertion of drug-eluting stent into left anterior descending artery for coronary artery disease Date Noted: 11/17/2016 Non morbid obesity due to excess calories Date Noted: 11/17/2016 Obesity, Class III, BMI >= 40 Date Noted: 05/11/2023 Hypercholesteremia HTN (hypertension) Resolved Ambulatory Problems No Resolved Ambulatory Problems Past Medical History: No date: Bipolar 1 disorder (HCC) 2012: CAD S/P percutaneous coronary angioplasty No date: Diabetes mellitus (HCC) No date: History of acute myocardial infarction No date: Hypothyroidism Review of Systems Constitutional: Negative. HENT: Negative. Eyes: Negative. Respiratory: Positive for cough and shortness of breath. Cardiovascular: Negative. Gastrointestinal: Negative. Endocrine: Negative. Genitourinary: Negative. Musculoskeletal: Negative. Skin: Positive for wound. Neurological: Negative. Objective BP 144/99 Pulse 87 Temp 36.5 C (97.7 F) Wt 131.1 kg (289 lb) SpO2 98% BMI 45.26 kg/m Physical Exam Vitals reviewed. Constitutional: General: He is awake. He is not in acute distress. Appearance: He is not ill-appearing, toxic-appearing or diaphoretic. HENT: Head: Normocephalic and atraumatic. Right Ear: Tympanic membrane, ear canal and external ear normal. Left Ear: Tympanic membrane, ear canal and external ear normal. Nose: Nose normal. Right Sinus: No maxillary sinus tenderness or frontal sinus tenderness. Left Sinus: No maxillary sinus tenderness or frontal sinus tenderness. Mouth/Throat: Mouth: Mucous membranes are moist. Pharynx: Oropharynx is clear. No pharyngeal swelling, oropharyngeal exudate or posterior oropharyngeal erythema. Cardiovascular: Rate and Rhythm: Normal rate and regular rhythm. Pulmonary: Effort: Pulmonary effort is normal. Breath sounds: Normal breath sounds. Lymphadenopathy: Head: Right side of head: No submandibular or tonsillar adenopathy. Left side of head: No submandibular or tonsillar adenopathy. Cervical: No cervical adenopathy. Skin: Findings: Erythema (erythematous area around a small open area near the right groin, no active drainage, no fluctuance, no streaking, is slightly warm) present. Neurological: Mental Status: He is alert. Psychiatric: Behavior: Behavior is cooperative. Assessment and Plan (L08.9) Skin infection (primary encounter diagnosis) Plan: doxycycline monohydrate 100 mg tablet, mupirocin (BACTROBAN) 2 % ointment (R05.3) Chronic cough Plan: benzonatate (TESSALON PERLES) 100 mg capsule Doxycycline twice a day for 7 days: -drink a full glass of water with each dose - do not take with milk/dairy products - avoid sun exposure - it raises your risk for burn - if you take calcium or iron supplements, do not take them while you take this, or take them at a different time of day - stay upright for 30 minutes after taking this medicine -Tessalon for cough, these are capsules you swallow, do not chew. -Keep area clean and dry. Non scented antimicrobial soap and water. -May soak with epsom salt 3 times a day with warm water in 20 minute intervals. -Do not pick at the site. This can lead to a secondary infection. -Signs of worsening infection: increased in size, streaking up or down the skin, fever of 101 F or higher, or copious drainage from the site. -If no improvement please follow up in 3-5 days with primary care. Likely needs more of a workup than what is offered in Express [facility]. -Be seen immediately or go to the ER with worsening symptoms. The patient will pursue further outpatient evaluation with the primary care physician or another Urgent Care/Express Care as outlined in the after visit summary. The patient is agreeable to this planof care and follow-up instructions have been explained in detail. The patient has received these instructions in written format and have expressed an understanding of the after visit summary. Medical Decision Making: Level: 4 - Moderate I spent a total of 20 minutes on the date of the service which included preparing to see the patient, [id number] patient care, completing clinical documentation, obtaining and/or reviewing separately obtained history, performing a medically appropriate examination, counseling and educating the pat ient/family/caregiver, and ordering medications, tests, or procedures. This patient encounter involved the screening or treatment of novel coronavirus infection (COVID-19). documented in this encounterGu[facility]10-10-2023 Instructions* Patient Instructions* Rose Mary Stahl APRN.CNP - 06/30/2023 12:52 PM EDT (L08.9) Skin infection (primary encounter diagnosis) Plan: doxycycline monohydrate 100 mg tablet, mupirocin (BACTROBAN) 2 % ointment (R05.3) Chronic cough Plan: benzonatate (TESSALON PERLES) 100 mg capsule Doxycycline twice a day for 7 days: -drink a full glass of water with each dose - do not take with milk/dairy products - avoid sun exposure - it raises your risk for burn - if you take calcium or iron supplements, do not take them while you take this, or take them at a different time of day - stay upright for 30 minutes after taking this medicine -Tessalon for cough, these are capsules you swallow, do not chew. -Keep area clean and dry. Non scented antimicrobial soap and water. -May soak with epsom salt 3 times a day with warm water in 20 minute intervals. -Do not pick at the site. This can lead to a secondary infection. -Signs of worsening infection: increased in size, streaking up or down the skin, fever of 101 F or higher, or copious drainage from the site. -If no improvement please follow up in 3-5 days with primary care. Likely needs more of a workup than what is offered in [facility]. -Be seen immediately or go to the ER with worsening symptoms. documented in this encounterGu[facility]10-10-2023 Miscellaneous Notes* Telephone Encounter - Ana Barney LPN - 06/30/2023 7:56 AM EDT Patient's request for medication is as follows: Requested Prescriptions Pending Prescriptions Disp Refills aspirin, enteric coated (ADULT LOW DOSE ASPIRIN) 81 mg EC tablet 90 tablet 3 Sig: Take 1 tablet by mouth once daily. Last seen 06/26/2023. Prescription(s) as above. Please process accordingly. Ana Barney LPN documented in this [facility]10-06-2023 Instructions* Patient Instructions* Yousuf Ponce MD - 06/26/2023 1:55 PM EDT Start crestor and losartan Bloodwork in 7-10 days Echocardiogram and stress test Referral to pulmonary for management of obstructive sleep apnea Referral to medical weight loss clinic documented in this [facility]10-06-2023 Nurse Note* Yan Zhao LPN - 06/26/2023 1:29 PM EDT Pt c/o SOB with exertion. Yan Zhao LPN documented in this [facility]10-06-2023 History of Present illness Narrative* Yousuf Ponce MD - 06/26/2023 1:24 PM EDT PRIMARY CARE PHYSICIAN: Duncan Craven [address] [phone] REFERRING PHYSICIAN: Duncan Craven [address] [id number] CHIEF COMPLAINT: Coronary artery disease HISTORY OF PRESENT ILLNESS: Mr. Marsh is a 58 year old male with a history of coronary artery disease status post remote OK in 2012 with PCI to the LAD, diabetes, hypertension, hyperlipidemia, hypothyroidism, bipolar disorder, obstructive sleep apnea not on CPAP therapy and morbid obesity who was referred to cardiology clinic to establish care. Patient reports that he suffered an OK back in 2011 for which he underwent cardiac catheterization with finding of 80% stenosis in the proximal LAD for which he underwent PCI procedure. He was initially found to have mild LV dysfunction with ejection fraction 45 to 50%. Patient did subsequently have a stress test 2 years later revealing no evidence of myocardial ischemia or scar with normalization of his LV function with ejection fraction 59%. Unfortunately, patient was lost to follow-up thereafter as he reports he was incarcerated. He was referred to cardiology clinic to establish care. In discussion with the patient, he does report that in the last 2 years, he has had development of dyspnea on exertion which she believes occurred after exposure to COVID-19. He reports getting shortof breath simply going up a flight of stairs and even occasionally with walking on flat ground. He otherwise denies any complaints of chest pain, orthopnea, paroxysmal nocturnal dyspnea, lower extremity edema, presyncope, syncope, or palpitations. He does not engage in any regular exercise and reports being quite inactive over the last 5 years. He otherwise does report a history of previously diagnosed obstructive sleep apnea but is not currently on CPAP therapy. He does report snoring quite loudly and has apneic spells at night. Patient is otherwise on therapy with both aspirin and metoprolol. He has been reluctant to take statins as he is concerned that they increase the risk for . He does otherwise report a history ofsmoking 5 to 6 cigarettes daily for 30 years. He did quit for 5 years but took it up again earlier this year for 2 months. He has quit again over the last month. PAST MEDICAL HISTORY Diagnosis Date Bipolar 1 disorder (HCC) CAD S/P percutaneous coronary angioplasty 2011 [place] Diabetes mellitus (HCC) History of acute myocardial infarction HTN (hypertension) Hypercholesteremia Hypothyroidism PAST SURGICAL HISTORY Procedure Laterality Date ANGIOPLASTY 2011 [facility] STENT COLONOSCOPY 2009 [place] ARTHROSCOPY/SURGERY 2000 loose body removal lt KNEE ARTHROSCOPY/SURGERY 1984 loose body removal lt OSTEOTOMY FIBULA Left 1980 PAST SURGICAL HISTORY OF 1988 Rt wrist bone graft PAST SURGICAL HISTORY OF R navicular REPAIR INGUINAL HERNIA 1986 REPAIR NASAL SEPTUM DEFECT 1996 THYROIDECTOMY SUBTOTAL/PARTIAL 2009 TONSILLECTOMY PRIMARY/SECONDARY <AGE 10 Tonsillectomy MEDICATIONS: albuterol HFA (PROVENTIL HFA, VENTOLIN HFA) 90 mcg/actuation inhaler Inhale 2 Puffs as instructed every 4 hours as needed for wheezing/shortness of breath. metoprolol tartrate, short acting, (LOPRESSOR) 25 mg tablet Take 25 mg by mouth twice daily. fluticasone (FLONASE) 50 mcg/actuation nasal spray Use 2 Sprays in the nose. pantoprazole DR (PROTONIX) 40 mg tablet Take 1 tablet by mouth once daily. mirtazapine (REMERON) 15 mg tablet Take 1 tablet by mouth daily at bedtime. ibuprofen (MOTRIN) 600 mg tablet Take 1 tablet by mouth every 8 hours as needed for Pain. levothyroxine (SYNTHROID) 125 mcg tablet Take 125 mcg by mouth daily before breakfast. MULTI-VITAMIN ORAL None Entered rosuvastatin (CRESTOR) 10 mg tablet Take 1 tablet by mouth daily at bedtime. losartan (COZAAR) 25 mg tablet Take 1 tablet by mouth once daily. aspirin, enteric coated (ADULT LOW DOSE ASPIRIN) 81 mg EC tablet Take 1 tablet by mouth once daily. ALLERGIES Allergen Reactions Bactrim [Sulfametho* Rash, Swelling not airway Bactrim [Sulfametho* Swelling Sulfamethoxazole-Tr* Hives SOCIAL HISTORY: Social History Tobacco Use Smoking status: Former Packs/day: 0.30 Years: 40.00 Additional pack years: 0.00 Total pack years: 12.00 Types: Cigarettes Smokeless tobacco: Never Vaping Use Vaping Use: Never used Substance Use Topics Alcohol use: No Drug use: No FAMILY HISTORY Problem Relation Age of Onset Cancer Mother uterine other (depression) Maternal Grandmother REVIEW OF SYSTEMS: GENERAL: Positive for weight gain; negative for: Fever, Chills, or Night sweats RESPIRATORY: Positive for dyspnea on exertion; Negative for: Cough, Blood in Sputum, Wheezing CARDIAC: Positive for dyspnea on exertion; Negative history of chest pain on exertion, orthopnea, paroxysmal nocturnal dyspnea, lower extremity edema, presyncope, syncope, or palpitations MUSCULOSKELETAL: Positive for: Muscle or joint pain OTHER: The rest of the review of systems is unremarkable and negative or non-contributory PHYSICAL EXAMINATION: BP 137/87 Pulse 73 Resp 18 Ht 5' 7 (1.70m) Wt 287 lb (130.2kg) SpO2 96[room air]% BMI 44.94 kg/(m^2). GENERAL: Morbidly obese, in no acute distress. SKIN: No clubbing, no cyanosis. HEENT: Extraocular movements intact; Mucous membranes moist; LUNGS: Clear to auscultation bilaterally, no rales, wheezing, or rhonchi. HEART: Regular rate and rhythm; normal S1/S2; no murmurs, gallops, or rubs EXTREMETIES: No peripheral edema. Grade 2/4 distal pulses bilaterally. NEURO: Oriented to person, place and time. Alert, cooperative. PSYCH: Normal mood/affect CARDIAC TESTING: EKG: EKG, 06/26/2023: Sinus rhythm with first-degree AV block. Left axis deviation. Left bundle branch block. Stress Testing: Nuclear stress test, 09/06/2014: No evidence of myocardial ischemia or scar. EF 59%. Coronary angiography: Left Heart Catheterization, 01/30/2012: 80% stenosis in the proximal LAD status post PCI. Ejection fraction 45 to 50%. I have personally reviewed the Electrocardiogram and Laboratory Testing along with reports of priorcardiac testing as reviewed above. ASSESSMENT: Mr. Marsh is a 58 year old male with a history of coronary artery disease status post remote OK in 2011 with PCI to the LAD, diabetes, hypertension, hyperlipidemia, hypothyroidism, bipolar disorder, obstructive sleep apnea not on CPAP therapy and morbid obesity who was referred to car diology clinic to establish care. PLAN AND RECOMMENDATIONS: Dyspnea on exertion: Patient reports that in the last couple years, he has had significant symptomsof dyspnea on exertion which she believes started after he was exposed to COVID-19. He reports getting short of breath going up a flight of stairs or even occasionally walking on flat ground. As he does have significant underlying cardiac risk factors, I did recommend he undergo further ischemic wor k-up with a nuclear stress test. I will also obtain an echocardiogram to evaluate his overall cardiac structure and function. Otherwise, I did give patient a referral to pulmonology as per below for evaluation for potential pulmonary etiology of his shortness of breath as well. 2. Coronary artery disease s/p remote OK in 2011: Patient with prior OK in 2011 with PCI to the LAD. I recommended he continue on therapy with aspirin and metoprolol and also add Crestor 10 mg at bedtime. I did reassure him that this medication is safe to take and will actually overall reduce his risk for having recurrent cardiac events. In addition, I did recommend starting on therapy with losartan 25 mg daily for improved blood pressure control as well. I will plan on checking a repeat basic metabolic panel in approximately 10 days' time to ensure his electrolytes and kidney function remainstable with this change. 3. Hypertension: Patient's blood pressures are not optimally controlled as per his report. His blood pressure also remains slightly elevated in the office and not at goal less than 130/80. I recommended he continue on therapy with metoprolol and add losartan 25 mg daily. I will plan on checking a repeat basic metabolic panel in approximately 10 days' time to ensure his electrolytes and kidney function remain stable with this change. 4. Hyperlipidemia: Given patient's history of underlying diabetes and coronary disease, he should ideally be on statin therapy. He has been reluctant to pursue statins in the past as he was concernedthat they increase the risk of . I did reassure him that statins are safe to take and will actually reduce his overall risk for having recurrent cardiac event. Based on our discussion, he was willing to start Crestor 10 mg at bedtime. I will plan on checking routine blood work including comprehensive metabolic panel and fasting lipids in the near future. 5. Obstructive sleep apnea: Patient reports a history of previously diagnosed obstructive sleep apnea. In addition, he continues to report loud nocturnal snoring and apneic spells at night. As untreated sleep apnea can lead to numerous cardiac complications, I have given him a referral to pulmonology for further evaluation of management options. 6. Morbid obesity: Patient expresses interest in weight loss. He reports significant weight gain of60 to 80 pounds over the last few years while he was incarcerated. I have given him a referral to the medical weight loss clinic for further evaluation and recommendations. 7. Tobacco abuse: Patient reports a longstanding history of prior tobacco use. He was smoking 5 to 6 cigarettes daily for approximately 30 years. Unfortunately, he did restart smoking a few months ago but reports he has quit again in the last month. I did eap counselor him on the importance of ongoing tobacco cessation for his overall health and his cardiovascular health. Yousuf Ponce MD Please Note: The time of this note does not reflect the time I saw this patient today, but the timeof this documentation. Also, this note has been created using Tracab, a speech recognition software program, and may contain errors including punctuation, grammar, spelling, gender, and inappropriate words or phrases that pertain to the sytem. documented in this encounterGuernsey [facility]09-28-[facility]23 History of Present illness Narrative* Alice Arambula DO - 06/18/2023 1:33 PM EDT Patient presents with: Left Arm - New Venkat Marsh is a 58 year old male who presents for left shoulder pain. He notes many years of anterior and lateral shoulder pain. He states that he feels popping and cracking of his left shoulder. He denies specific injury to his shoulder. The patient underwent MRI of the left shoulder in 2016 which reveals findings consistent with adhesive capsulitis. The patient also has a history of diabetes mellitus with a recent hemoglobin A1c of 8.2. The patient recently underwent fasciectomy of his left palm with Dr. Ross. He notes callus formation of his incision of his left hand. His pain is well controlled. Reviewed nursing note and current pain scale. PAST MEDICAL HISTORY Diagnosis Date Bipolar 1 disorder (HCC) CAD S/P percutaneous coronary angioplasty 2011 [place] Diabetes mellitus (HCC) HTN (hypertension) Hypercholesteremia Hypothyroidism PAST SURGICAL HISTORY Procedure Laterality Date ANGIOPLASTY 2011 [facility] STENT COLONOSCOPY 2009 [place] ARTHROSCOPY/SURGERY 2000 loose body removal lt KNEE ARTHROSCOPY/SURGERY 1984 loose body removal lt OSTEOTOMY FIBULA Left 1980 PAST SURGICAL HISTORY OF 1988 Rt wrist bone graft PAST SURGICAL HISTORY OF R navicular REPAIR INGUINAL HERNIA 1986 REPAIR NASAL SEPTUM DEFECT 1996 THYROIDECTOMY SUBTOTAL/PARTIAL 2009 TONSILLECTOMY PRIMARY/SECONDARY <AGE 10 Tonsillectomy FAMILY HISTORY Problem Relation Age of Onset Cancer Mother uterine other (depression) Maternal Grandmother Social History Tobacco Use Smoking status: Former Packs/day: 0.30 Years: 40.00 Additional pack years: 0.00 Total pack years: 12.00 Types: Cigarettes Vaping Use Vaping Use: Never used Substance Use Topics Alcohol use: No Drug use: No Medications: Current Outpatient Medications Medication Sig albuterol HFA (PROVENTIL HFA, VENTOLIN HFA) 90 mcg/actuation inhaler Inhale 2 Puffs as instructed every 4 hours as needed for wheezing/shortness of breath. metoprolol tartrate, short acting, (LOPRESSOR) 25 mg tablet Take 25 mg by mouth twice daily. fluticasone (FLONASE) 50 mcg/actuation nasal spray Use 2 Sprays in the nose. pantoprazole DR (PROTONIX) 40 mg tablet Take 1 tablet by mouth once daily. mirtazapine (REMERON) 15 mg tablet Take 1 tablet by mouth daily at bedtime. ibuprofen (MOTRIN) 600 mg tablet Take 1 tablet by mouth every 8 hours as needed for Pain. levothyroxine (SYNTHROID) 125 mcg tablet Take 125 mcg by mouth daily before breakfast. MULTI-VITAMIN ORAL None Entered No current facility-administered medications for this visit. Allergies: ALLERGIES Allergen Reactions Bactrim [Sulfametho* Rash, Swelling not airway Bactrim [Sulfametho* Swelling Sulfamethoxazole-Tr* Hives Physical Examination: Resp 18 Ht 5' 7 (1.70m) Wt 287 lb (130.2kg) BMI 44.94 kg/(m^2). Left Shoulder Inspection: No malalignment, atrophy, erythema, swelling, warmth, or scapular winging. AC prominence normal Bony Palpation: No tenderness of the sternoclavicular joint,, the clavicle, the acromioclavicular joint, the greater tuberosity, tenderness to palpation of the bicipital groove Soft tissue palpation: Tenderness to palpation of the lateral rotator cuff insertion, tenderness topalpation of the subdeltoid bursa Active ROM Right Shoulder: Forward Flexion: 180 degrees Abduction: 180 degrees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 HISTORY Problem Relation Age of Onset Cancer Mother uterine other (depression) Maternal Grandmother PAIN EVALUATION No data found in the last 1 encounters. ALLERGIES Allergen Reactions Bactrim [Sulfametho* Rash, Swelling not airway Bactrim [Sulfametho* Swelling Sulfamethoxazole-Tr* Hives Medication List prior to visit Current Outpatient Medications Medication Sig metFORMIN (GLUCOPHAGE) 500 mg tablet Take 1 tablet by mouth daily with dinner for 14 days, THEN 1 tablet twice daily with meals for 14 days. [START ON 05/05/2023] metFORMIN (GLUCOPHAGE) 500 mg tablet Take 1 tablet by mouth daily with breakfast AND 2 tablets daily with dinner. Do all this for 14 days. [START ON 05/20/2023] metFORMIN (GLUCOPHAGE) 1,000 mg tablet Take 1 tablet by mouth twice daily. metoprolol tartrate, short acting, (LOPRESSOR) 25 mg tablet Take 25 mg by mouth twice daily. fluticasone (FLONASE) 50 mcg/actuation nasal spray Use 2 Sprays in the nose. pantoprazole DR (PROTONIX) 40 mg tablet Take 1 tablet by mouth once daily. mirtazapine (REMERON) 15 mg tablet Take 1 tablet by mouth daily at bedtime. ibuprofen (MOTRIN) 600 mg tablet Take 1 tablet by mouth every 8 hours as needed for Pain. (Patient not taking: Reported on 03/25/2023) metoprolol succinate XL, long acting, (TOPROL XL) 25 mg 24 hr tablet Take 25 mg by mouth once daily. levothyroxine (SYNTHROID) 125 mcg tablet Take 125 mcg by mouth daily before breakfast. MULTI-VITAMIN ORAL None Entered No current facility-administered medications for this visit. I have confirmed and edited as necessary the chief complaint, medications, past medical, family andsocial histories. Review of Systems Constitutional: Negative for chills, diaphoresis and fatigue. HENT: Negative for congestion, hearing loss, postnasal drip, rhinorrhea and sore throat. Eyes: Negative for photophobia, pain and itching. Respiratory: Positive for shortness of breath. Negative for cough, chest tightness and wheezing. Cardiovascular: Negative for chest pain, palpitations and leg swelling. Gastrointestinal: Negative for abdominal pain, constipation, diarrhea, nausea and vomiting. Endocrine: Negative for cold intolerance and heat intolerance. Genitourinary: Negative for dysuria, hematuria and urgency. Musculoskeletal: Positive for arthralgias and back pain. Negative for myalgias and neck pain. Skin: Negative for rash and wound. Neurological: Negative for dizziness, tremors, light-headedness, numbness and headaches. Hematological: Does not bruise/bleed easily. Psychiatric/Behavioral: Negative for agitation. The patient is not nervous/anxious. OBJECTIVE: There were no vitals taken for this visit. Last Wt 04/07/23 : 127.9 kg (282 lb) 03/25/23 : 129.7 kg (286 lb) 07/28/17 : 122.1 kg (269 lb 1.6 oz) Last BP 04/07/23 : 148/84 03/25/23 : 143/85 07/28/17 : 143/97 Physical Exam Constitutional: General: He is not in acute distress. Appearance: He is obese. He is not ill-appearing. HENT: Head: Normocephalic and atraumatic. Right Ear: External ear normal. Left Ear: External ear normal. Mouth/Throat: Mouth: Mucous membranes are moist. Pharynx: Oropharynx is clear. No oropharyngeal exudate or posterior oropharyngeal erythema. Eyes: General: No scleral icterus. Extraocular Movements: Extraocular movements intact. Pupils: Pupils are equal, round, and reactive to light. Cardiovascular: Rate and Rhythm: Normal rate and regular rhythm. Pulses: Normal pulses. Heart sounds: Normal heart sounds. No murmur heard. Pulmonary: Effort: Pulmonary effort is normal. No respiratory distress. Breath sounds: Normal breath sounds. No wheezing. Abdominal: General: Bowel sounds are normal. There is no distension. Palpations: Abdomen is soft. There is no mass. Tenderness: There is no abdominal tenderness. Musculoskeletal: Cervical back: No tenderness. Right lower leg: No edema. Left lower leg: No edema. Comments: Cysts on the palmar aspect of the MCP joint of the 1st, 2nd, and 4th fingers Lymphadenopathy: Cervical: No cervical adenopathy. Skin: General: Skin is warm and dry. Capillary Refill: Capillary refill takes less than 2 seconds. Coloration: Skin is not jaundiced. Neurological: General: No focal deficit present. Mental Status: He is alert and oriented to person, place, and time. Cranial Nerves: No cranial nerve deficit. Psychiatric: Mood and Affect: Mood normal. Behavior: Behavior normal. There are no discontinued medications. No follow-ups on file. Discussed the above with the patient and my preceptor using shared decision-making. The patient is in agreement with the diagnostic and treatment plans. Gavin Betancur DO, signed on April 27, 2023 1:14 PM documented in this [facility]23 Miscellaneous Notes* Telephone Encounter - Gavin Betancur DO - 04/07/2023 2:36 PM EDT Attempted to reach Mr. Marsh to discuss recent labs, however patient unable to be reached by phone. Patient seems to be at express care for lower back s/p fall, and will likely be presenting to the ED. Recent labs: A1C elevated at 8.2, confirming diagnosis of diabetes. Patient did mention at last visit that he was previously on metformin in the past Will initiate metformin 500 mg daily with dinner for two weeks. If tolerated, will add 500 mg dose with breakfast after 2 weeks If still tolerated, will increase to 500 mg in AM, 1 g in PM for 2 more weeks Finally, if still tolerated, will increase to 1 g BID Will also send patient to diabetes education Rest of labs unremarkable - HIV, Hepatitis C, PSA. Patient did not give urine sample to test for STD as requested. If still concerned, should return to lab. Lipid panel not completed, as patient was not fasting. Please complete prior to next office visit, and fast 10-12 hours prior obtaining labs documented in this encounterWaldorf [id number] Miscellaneous Notes* Telephone Encounter - Jannie Johnston - 03/31/2023 2:44 PM EDT Spoke with pt will call us back if interested in appt documented in this [facility]07-07-2023 Miscellaneous Notes* Telephone Encounter - Jannie Johnston - 03/27/2023 10:54 AM EDT called and lvm to schedule appt from recieved referral. documented in this [facility]07-05-2023 Miscellaneous Notes* Telephone Encounter - Kathia Hoover - 03/25/2023 4:16 PM EDT Referral to cardiology entered into the [facility] portal on 03/25/2023. Confirmation number [id number]. documented in this [facility]07-05-2023 Miscellaneous Notes* Telephone Encounter - Kathia Hoover - 03/25/2023 4:15 PM EDT Referral to orthopedics entered into the [facility] portal on 03/25/2023. Confirmation number [id number]. documented in this [address]05-2023 Miscellaneous Notes* Telephone Encounter - Kathia Hoover - 03/25/2023 4:14 PM EDT Referral to psychiatry entered into the [facility] portal on 03/25/2023. Confirmation number [id number]. documented in this [facility]07-05-2023 History of Present illness Narrative* Gavin Betancur DO - 03/25/2023 10:43 AM EDT Images from the original note were not included. [facility] Gavin Betancur DO ASSESSMENT/PLAN: 1. Encounter to establish care - ICD9: V65.8, ICD10: Z76.89 (primary diagnosis) - LIPID PANEL BASIC - COMP METABOLIC PANEL 2. Bipolar 1 disorder (HCC) - ICD9: 296.7, ICD10: F31.9 - CONSULT TO PSYCHIATRY 3. Special screening examination for viral disease - ICD9: V73.99, ICD10: Z11.59 - HEPATITIS C ANTIBODY IA WITH CONFIRMATION 4. Screening for HIV (human immunodeficiency virus) - ICD9: V73.89, ICD10: Z11.4 - HIV 1 2 COMBO(AG/AB),WITH REFLEX TO DIFFERENTIATION 5. Screening for prostate cancer - ICD9: V76.44, ICD10: Z12.5 - Counseled on healthy diet and regular exercise - PSA/PROSTSPECAG SCRN 6. Screen for STD (sexually transmitted disease) - ICD9: V74.5, ICD10: Z11.3 - GONORRHEA/CHLAMYDIA NAAT 7. Diabetes mellitus type 2 in obese (HCC) - ICD9: 250.00, 278.00, ICD10: E11.69, E66.9 - Control undetermined, due for labs - Counseled on healthy diet and regular exercise - Discussed need for and benefit of weight loss. BMI 43.49 kg/(m^2) Stable - Behavioral intervention - HGB A1C 8. Morbid obesity (HCC) - ICD9: 278.01, ICD10: E66.01 Stable - Behavioral intervention and - Psychology 9. Hx of acute myocardial infarction - ICD9: 412, ICD10: I25.2 - CONSULT TO CARDIOLOGY 10. Trigger finger of left hand, unspecified finger - ICD9: 727.03, ICD10: M65.30 - CONSULT TO ORTHOPAEDICS 11. Primary insomnia - ICD9: 307.42, ICD10: F51.01 - MIRTAZAPINE 15 MG TABLET - TRAZODONE 100 MG TABLET 12. Gastroesophageal reflux disease without esophagitis - ICD9: 530.81, ICD10: K21.9 - Discussed lifestyle modifications including losing weight, limiting caffeine, no meals three hours before sleep, and head of bed elevation - PANTOPRAZOLE 40 MG TABLET,DELAYED RELEASE - Advised to quit smoking Gavin Betancur, DO SUBJECTIVE: Venkat Marsh is a 57 year old male here today to establish care. He has a past medical history of CAD w/ [place] in 2015, Type 2 diabetes, Bipolar 1, Colon polyps, Polysubstance use (alcohol, cocaine), Hypercholesterolemia, Hypothyroidism, Asthma, Depression. He primarily follows with the [place], and p resents to us today because he believes he will not be charged for medication here. Despite no [facility] in [facility], which he believeshe will get for free here if ordered from this office. He has several complaints addressed at today's visit: STD Check The patient requests an STD test, as he had a recent sexual encounter without use of protection, and now has increased frequency of urination. He denies fever, dysuria, and discharge. ?Trigger Finger He also endorses intermittent locking of all digits of his left hand, and believes this is due to painful knots at the site of his 1st, 2nd, and 4th MCP joints. 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 He requests an orthopedic referral at this time. Dyspnea, wheezing Patient states since COVID, he has been increasingly wheezy and short of breath. He believes he haslong-COVID, as robitusson and ucinez have not improved his symptoms. He admits that he has heartburn, exacerbated by certain foods, and is worse while laying flat. He has not tried antacids, and also smokes 1/3 of a pack a day. Bipolar 1 Patient wishes to be seen by psychiatry. He has a history of bipolar 1 and reports being on both trazodone and mirtazapine for this specific issue. However, he reports he has not taken any of these medications in 5 years, as he was wrongfully convicted of armed robbery, and these medications could not be given in [place]. Within days of being convicted, his left him and his mother , and as a result he cut his wrists due to suicidal ideation. Immediately after cutting, he regretted his actions, and has not had SI/HI since. Type 2 Diabetes Patient has not taken medication in years. He notes he was previously on metformin, but could not tolerate it due to loose stools. OK Patient had an OK in 2014, and has been on metoprolol ever since. He would like to be set up with Cardiology at this time. PAST MEDICAL HISTORY Diagnosis Date Bipolar 1 disorder (HCC) CAD S/P percutaneous coronary angioplasty 2011 [place] Hypercholesteremia Hypothyroidism PAST SURGICAL HISTORY Procedure Laterality Date ANGIOPLASTY 2011 [facility] COLONOSCOPY 2009 [place] ARTHROSCOPY/SURGERY 2000 loose body removal lt KNEE ARTHROSCOPY/SURGERY 1984 loose body removal lt OSTEOTOMY FIBULA Left 1980 PAST SURGICAL HISTORY OF 1988 Rt wrist bone graft PAST SURGICAL HISTORY OF R navicular REMOVAL OF TONSILS,<10 Y/O Tonsillectomy REPAIR INGUINAL HERNIA 1986 REPAIR NASAL SEPTUM DEFECT 1996 THYROIDECTOMY SUBTOTAL/PARTIAL 2008 Social History Tobacco Use Smoking status: Every Day Packs/day: 0.30 Years: 40.00 Pack years: 12.00 Types: Cigarettes Substance Use Topics Alcohol use: No Drug use: No FAMILY HISTORY Problem Relation Age of Onset Cancer Mother uterine other (depression) Maternal Grandmother There are no active hospital problems to display for this patient. PAIN EVALUATION No data found in the last 1 encounters. ALLERGIES Allergen Reactions Bactrim [Sulfametho* Rash, Swelling not airway Bactrim [Sulfametho* Swelling Sulfamethoxazole-Tr* Hives Current Outpatient Medications Medication Sig traZODone (DESYREL) 100 mg tablet Take 100 mg by mouth daily at bedtime. mirtazapine (REMERON) 15 mg tablet Take 15 mg by mouth daily at bedtime. metoprolol succinate XL, long acting, (TOPROL XL) 25 mg 24 hr tablet Take 25 mg by mouth once daily. levothyroxine (SYNTHROID) 125 mcg tablet Take 125 mcg by mouth daily before breakfast. MULTI-VITAMIN ORAL None Entered ibuprofen (MOTRIN) 600 mg tablet Take 1 tablet by mouth every 8 hours as needed for Pain. (Patient not taking: Reported on 03/25/2023) No current facility-administered medications for this visit. I have confirmed and edited as necessary the chief complaint, medications, past medical, family andsocial histories. Review of Systems Constitutional: Negative for chills, diaphoresis and fatigue. HENT: Negative for congestion, hearing loss, postnasal drip, rhinorrhea and sore throat. Eyes: Negative for photophobia, pain and itching. Respiratory: Positive for shortness of breath and wheezing. Negative for cough and chest tightness. Cardiovascular: Negative for chest pain, palpitations and leg swelling. Gastrointestinal: Negative for abdominal pain, constipation, diarrhea, nausea and vomiting. Endocrine: Positive for polyuria. Negative for cold intolerance and heat intolerance. Genitourinary: Negative for dysuria, genital sores, hematuria, penile discharge, penile pain, penile swelling, scrotal swelling, testicular pain and urgency. Musculoskeletal: Positive for arthralgias and joint swelling. Negative for myalgias and neck pain. See HPI Skin: Negative for rash and wound. Neurological: Negative for dizziness, tremors, light-headedness, numbness and headaches. Hematological: Does not bruise/bleed easily. Psychiatric/Behavioral: Negative for agitation, behavioral problems, dysphoric mood, hallucinationsand self-injury. The patient is not nervous/anxious. OBJECTIVE: There were no vitals taken for this visit. There is no height or weight on file to calculate BMI. Physical Exam Constitutional: General: He is not in acute distress. Appearance: He is obese. He is not ill-appearing. HENT: Head: Normocephalic and atraumatic. Right Ear: External ear normal. Left Ear: External ear normal. Mouth/Throat: Mouth: Mucous membranes are moist. Pharynx: Oropharynx is clear. No oropharyngeal exudate or posterior oropharyngeal erythema. Eyes: General: No scleral icterus. Extraocular Movements: Extraocular movements intact. Pupils: Pupils are equal, round, and reactive to light. Cardiovascular: Rate and Rhythm: Normal rate and regular rhythm. Pulses: Normal pulses. Heart sounds: Normal heart sounds. No murmur heard. Pulmonary: Effort: Pulmonary effort is normal. No respiratory distress. Breath sounds: Normal breath sounds. No wheezing. Abdominal: General: Bowel sounds are normal. There is no distension. Palpations: Abdomen is soft. There is no mass. Tenderness: There is no abdominal tenderness. Musculoskeletal: Cervical back: No tenderness. Right lower leg: No edema. Left lower leg: No edema. Comments: Cysts on the palmar aspect of the MCP joint of the 1st, 2nd, and 4th fingers Lymphadenopathy: Cervical: No cervical adenopathy. Skin: General: Skin is warm and dry. Capillary Refill: Capillary refill takes less than 2 seconds. Coloration: Skin is not jaundiced. Neurological: General: No focal deficit present. Mental Status: He is alert and oriented to person, place, and time. Cranial Nerves: No cranial nerve deficit. Psychiatric: Mood and Affect: Mood normal. Behavior: Behavior normal. Thought Content: Thought content normal. Judgment: Judgment normal. Depression Screening: Screening tool completed by patient. Based on the PHQ-2 score and patient interview, patient is notat risk for depression. Screening tool discussed with patient, and I recommended psychiatry referral. Results for orders placed or performed in visit on 03/05/17 RAPID STREP TEST B/O Result Value Ref Range Rapid Strep neg neg - pos Quality Check Yes yes/no GROUP A STREPTOCOCCUS BY PCR Result Value Ref Range GASPCR Specimen Source Throat Swab Group A Strep PCR Result Negative for Group A Streptococcus by PCR. . No follow-ups on file. Discussed the above with the patient and my preceptor using shared decision-making. The patient is in agreement with the diagnostic and treatment plans. This note may have been partially generated using Payment plugin voice recognition system, and there may besome incorrect words, spellings, and punctuation that were not noted in checking the note before saving. Provider: Gavin Betancur DO Signed on: March 25, 2023 10:43 AM [facility] No data available for this section [facility] Evaluation note* Diagnosis Encounter to establish care- Primary Other reasons for seeking consultation Bipolar 1 disorder (HCC) Bipolar I disorder, most recent episode (or current) unspecified Special screening examination for viral disease Special screening examination for unspecified viral disease Screening for HIV (human immunodeficiency virus) Special screening examination for other specified viral diseases Screening for prostate cancer Special screening for malignant neoplasm of prostate Screen for STD (sexually transmitted disease) Screening examination for venereal disease Diabetes mellitus type 2 in obese (HCC) Type II or unspecified type diabetes mellitus without mention of complication, not stated as uncontrolled Morbid obesity (HCC) Morbid obesity Hx of acute myocardial infarction Old myocardial infarction Trigger finger of left hand, unspecified finger Primary insomnia Persistent disorder of initiating or maintaining sleep Gastroesophageal reflux disease without esophagitis Esophageal reflux [facility] Diagnosis Uncontrolled type 2 diabetes mellitus with hyperglycemia (HCC)- Primary [facility] Uncontrolled type 2 diabetes mellitus with hyperglycemia (HCC)- Primary Mild intermittent asthma, unspecified whether complicated Hypothyroidism, unspecified type [facility] Diagnosis Dupuytren's disease of palm of left hand- Primary Cough in adult patient Volar retinacular ganglion Ganglion of joint Dupuytren's disease of palm of left hand [facility] Diagnosis Post-operative state- Primary Other postprocedural status Dupuytren's disease of palm of left hand [facility] Morbid obesity (HCC)- Primary Morbid obesity Hx of acute myocardial infarction Old myocardial infarction ELBERT (obstructive sleep apnea) Obstructive sleep apnea (adult) (pediatric) Coronary artery disease involving [place] coronary artery of [place] heart without angina pectoris Primary hypertension Unspecified essential hypertension Hyperlipidemia, unspecified hyperlipidemia type BRASWELL (dyspnea on exertion) Other dyspnea and respiratory abnormality Tobacco abuse Tobacco use disorder [facility] Diagnosis Skin infection- Primary Unspecified local infection of skin and subcutaneous tissue Chronic cough Cough [facility] Diagnosis Hypothyroidism, unspecified type- Primary Primary insomnia Persistent disorder of initiating or maintaining sleep Uncontrolled type 2 diabetes mellitus with hyperglycemia (HCC) Bipolar 1 disorder (HCC) Bipolar I disorder, most recent episode (or current) unspecified Primary hypertension Unspecified essential hypertension Osteoarthritis of both knees, unspecified osteoarthritis type [facility] Diagnosis Dyspnea on exertion- Primary Other dyspnea and respiratory abnormality Chronic cough Cough Tobacco abuse Tobacco use disorder Sleep-disordered breathing Other sleep disturbances [facility] Diagnosis Impingement syndrome of left shoulder- Primary Other affections of shoulder region, not elsewhere classified [facility] Diagnosis Hx of acute myocardial infarction Old myocardial infarction Coronary artery disease involving [place] coronary artery of [place] heart without angina pectoris [facility] Diagnosis Mild intermittent asthma, unspecified whether complicated [facility] Diagnosis Urinary frequency- Primary Hyperglycemia Other abnormal glucose Sinobronchitis Unspecified sinusitis (chronic) [facility] Diagnosis Uncontrolled type 2 diabetes mellitus with hyperglycemia (HCC)- Primary Encounter for screening for lung cancer Schizoaffective disorder, bipolar type (HCC) Schizoaffective disorder, unspecified condition Cocaine dependence in remission (HCC) Cocaine dependence, in remission Bipolar 1 disorder (HCC) Bipolar I disorder, most recent episode (or current) unspecified Mild intermittent asthma, unspecified whether complicated Primary hypertension Unspecified essential hypertension Hx of acute myocardial infarction Old myocardial infarction Morbid obesity (HCC) Morbid obesity Osteoarthritis of both knees, unspecified osteoarthritis type Hypothyroidism Unspecified hypothyroidism Primary insomnia Persistent disorder of initiating or maintaining sleep [facility]* Diagnosis Type 2 diabetes mellitus without retinopathy ([facility])- Primary Type II or unspecified type diabetes mellitus without mention of complication, not stated as uncontrolled Cataract, nuclear sclerotic, both eyes Senile nuclear sclerosis Hyperopia of both eyes Regular astigmatism of both eyes Regular astigmatism Presbyopia of both eyes [facility] Diagnosis Mood disorder (HCC)- Primary Unspecified episodic mood disorder Anxiety Anxiety state, unspecified Insomnia, unspecified type Cocaine use disorder in remission [facility] Diagnosis Posterior auricular lymphadenopathy Enlargement of lymph nodes [facility] Diagnosis Primary hypertension Unspecified essential hypertension Coronary artery disease involving [place] coronary artery of [place] heart without angina pectoris BMI 40.0-44.9, adult (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) [facility] Diagnosis Mild intermittent asthma, unspecified whether complicated Primary hypertension Unspecified essential hypertension Coronary artery disease involving [place] coronary artery of [place] heart without angina pectoris BMI 40.0-44.9, adult (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) [facility] Diagnosis Uncontrolled type 2 diabetes mellitus with hyperglycemia ([facility]) [facility]* Diagnosis Uncontrolled type 2 diabetes mellitus with hyperglycemia (HCC) Primary hypertension Unspecified essential hypertension Hypothyroidism, unspecified type Hx of acute myocardial infarction Old myocardial infarction Left hand pain Pain in limb Tobacco abuse Tobacco use disorder Mild intermittent asthma, unspecified whether complicated Coronary artery disease involving [place] coronary artery of [place] heart without angina pectoris BMI 40.0-44.9, adult (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) [facility]* Diagnosis Mood disorder ([facility])- Primary Unspecified episodic mood disorder Insomnia, unspecified type Anxiety Anxiety state, unspecified Cocaine use disorder in remission [facility]* Diagnosis Uncontrolled type 2 diabetes mellitus with hyperglycemia ([facility])- Primary Mild intermittent asthma, unspecified whether complicated Primary hypertension Unspecified essential hypertension Coronary artery disease involving [place] coronary artery of [place] heart without angina pectoris BMI 40.0-44.9, adult ([facility]) Body Mass Index 40.0-44.9, adult Tobacco abuse Tobacco use disorder Seasonal allergies Allergic rhinitis, cause unspecified Microscopic hematuria [facility] Diagnosis Disability examination- Primary Issue of medical certificate for disability examination [facility]* Diagnosis Contusion of left elbow, initial encounter- Primary [facility] Diagnosis Bilateral lower extremity edema- Primary Edema Coronary artery disease involving [place] coronary artery of [place] heart without angina pectoris Primary hypertension Unspecified essential hypertension Glossitis Mood disorder ([facility]) Unspecified episodic mood disorder [facility] Diagnosis Hx of acute myocardial infarction Old myocardial infarction Coronary artery disease involving [place] coronary artery of [place] heart without angina pectoris [facility]* Diagnosis Systolic dysfunction without heart failure- Primary Abnormal echocardiogram Nonspecific (abnormal) findings on radiological and other examination of other intrathoracic organs Cardiomyopathy, unspecified type ([facility]) [facility]* Diagnosis HFrEF (heart failure with reduced ejection fraction) ([facility])- Primary Heart failure, unspecified documented [facility]* Diagnosis Chronic systolic CHF (congestive heart failure) ([facility]) Chronic systolic heart failure Typical atrial flutter ([facility]) Atrial flutter [facility]* Diagnosis Uncontrolled type 2 diabetes mellitus with hyperglycemia ([facility]) Hypothyroidism, unspecified type [facility]* Diagnosis Uncontrolled type 2 diabetes mellitus with hyperglycemia ([facility]) Primary hypertension Unspecified essential hypertension Coronary artery disease involving [place] coronary artery of [place] heart without angina pectoris BMI 40.0-44.9, adult (HCC) Body Mass Index 40.0-44.9, adult Chronic HFrEF (heart failure with reduced ejection fraction) (HCC)- Primary documented in this encounter [facility] note* Diagnosis Chronic HFrEF (heart failure with reduced ejection fraction) (HCC)- Primary [facility] Diagnosis Chronic HFrEF (heart failure with reduced ejection fraction) (HCC)- Primary documented in this encounter [facility] note* Diagnosis Heart failure with reduced ejection fraction (HCC)- Primary Heart failure, unspecified documented in this encounter [facility] note* Diagnosis Mood disorder (HCC) Unspecified episodic mood disorder Insomnia, unspecified type Anxiety Anxiety state, unspecified [facility]* Diagnosis Uncontrolled type 2 diabetes mellitus with hyperglycemia (HCC) [facility]* Diagnosis Uncontrolled type 2 diabetes mellitus with hyperglycemia (HCC) Primary hypertension Unspecified essential hypertension Coronary artery disease involving [place] coronary artery of [place] heart without angina pectoris BMI 40.0-44.9, adult (HCC) Body Mass Index 40.0-44.9, adult documented in this encounter [facility] note* Diagnosis Hx of acute myocardial infarction Old myocardial infarction Uncontrolled type 2 diabetes mellitus with hyperglycemia (HCC) Mild intermittent asthma, unspecified whether complicated 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) Hypothyroidism, unspecified type [facility]* Diagnosis Chronic HFrEF (heart failure with reduced ejection fraction) (HCC) documented in this encounter [facility] note* Diagnosis Uncontrolled type 2 diabetes mellitus with hyperglycemia (HCC) Primary hypertension Unspecified essential hypertension Coronary artery disease involving [place] coronary artery of [place] heart without angina pectoris BMI 40.0-44.9, adult (HCC) Body Mass Index 40.0-44.9, adult documented in this encounter [facility] note* Diagnosis Uncontrolled type 2 diabetes mellitus with hyperglycemia (HCC)- Primary documented in this encounter [facility] note* Diagnosis Uncontrolled type 2 diabetes mellitus with hyperglycemia (HCC) documented in this encounter [facility] noteNo assessment information availableWAdena [facility] Work Phone: Evaluation note* Diagnosis Mood disorder (HCC) Unspecified episodic mood disorder Insomnia, unspecified type Anxiety Anxiety state, unspecified Chronic HFrEF (heart failure with reduced ejection fraction) ([facility])- Primary documented in this encounter [facility] note* Diagnosis Mood disorder ([facility]) Unspecified episodic mood disorder Insomnia, unspecified type Anxiety Anxiety state, unspecified documented in this encounter [facility] note* Diagnosis Chronic HFrEF (heart failure with reduced ejection fraction) ([facility]) documented in this encounter [facility] note* Diagnosis Uncontrolled type 2 diabetes mellitus with hyperglycemia ([facility]) Mild intermittent asthma, unspecified whether complicated Type 2 diabetes mellitus with albuminuria ([facility]) ([facility]) Hypothyroidism, unspecified type Primary hypertension Unspecified essential hypertension Coronary artery disease involving [place] coronary artery of [place] heart without angina pectoris BMI 40.0-44.9, adult ([facility]) Body Mass Index 40.0-44.9, adult documented in this encounter [facility] note* Diagnosis Mixed hyperlipidemia documented in this encounter [facility] note* Diagnosis Lipoma of neck- Primary Lipoma of other skin and subcutaneous tissue documented in this encounter [facility] note* Diagnosis Hypertension, unspecified type- Primary Chronic HFrEF (heart failure with reduced ejection fraction) ([facility]) Cough, unspecified type Thrush (oral) documented in this encounter [facility] note* Diagnosis Neck mass- Primary Swelling, mass, or lump in head and neck Coronary artery disease involving [place] coronary artery of [place] heart without angina pectoris S/P coronary artery stent placement Postsurgical percutaneous transluminal coronary angioplasty status Primary hypertension Unspecified essential hypertension Class 3 severe obesity due to excess calories with serious comorbidity and body mass index (BMI) of 45.0 to 49.9 in adult (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) Coronary artery disease involving [place] coronary artery of [place] heart without angina pectoris S/P coronary artery stent placement Postsurgical percutaneous transluminal coronary angioplasty status Chronic HFrEF (heart failure with reduced ejection fraction) ([facility]) ELBERT (obstructive sleep apnea) Obstructive sleep apnea (adult) (pediatric) Non-compliant patient Personal history of noncompliance with medical treatment, presenting hazards to health Hypothyroidism, unspecified type Tobacco abuse Tobacco use disorder [facility] note* Diagnosis Uncontrolled type 2 diabetes mellitus with hyperglycemia (HCC) Primary hypertension Unspecified essential hypertension Coronary artery disease involving [place] coronary artery of [place] heart without angina pectoris BMI 40.0-44.9, adult (HCC) Body Mass Index 40.0-44.9, adult [facility] Diagnosis Neck mass- Primary Swelling, mass, or lump in head and neck Coronary artery disease involving [place] coronary artery of [place] heart without angina pectoris documented in this [facility]* Diagnosis Neck mass Swelling, mass, or lump in head and neck Nontoxic multinodular goiter Lipoma of neck Lipoma of other skin and subcutaneous tissue [facility]* Diagnosis Neck mass Swelling, mass, or lump in head and neck Lipoma of neck Lipoma of other skin and subcutaneous tissue [facility]* Diagnosis Lipoma of neck Lipoma of other skin and subcutaneous tissue Nontoxic multinodular goiter documented [facility]* Diagnosis Mood disorder Unspecified episodic mood disorder Insomnia, unspecified type Anxiety Anxiety state, unspecified documented in this encounter [facility] note* Diagnosis Acute congestive heart failure, unspecified heart failure type (HCC)- Primary Acute congestive heart failure, unspecified heart failure type (HCC) Localized swelling of both lower legs [facility] Diagnosis Chronic HFrEF (heart failure with reduced ejection fraction) ([facility])- Primary Tobacco abuse Tobacco use disorder Type 2 diabetes mellitus with diabetic microalbuminuria, with long-term current use of insulin (HCC) Hypercholesteremia Pure hypercholesterolemia Primary hypertension Unspecified essential hypertension Coronary artery disease involving [place] coronary artery of [place] heart without angina pectoris Bipolar 1 disorder (HCC) Bipolar I disorder, most recent episode (or current) unspecified Obesity, Class III, BMI >= 40 Morbid obesity Pain of right hand Pain in limb documented [facility]* Diagnosis Type 2 diabetes mellitus with diabetic microalbuminuria, with long-term current use of insulin ([facility]) Mood disorder Unspecified episodic mood disorder Insomnia, unspecified type Anxiety Anxiety state, unspecified [facility] Diagnosis Mood disorder Unspecified episodic mood disorder Insomnia, unspecified type Anxiety Anxiety state, unspecified [facility] Diagnosis Pain of right hand Pain in limb [facility] Diagnosis Mood disorder Unspecified episodic mood disorder Insomnia, unspecified type Anxiety Anxiety state, unspecified documented [facility]* Diagnosis Hypercholesteremia Pure hypercholesterolemia Tobacco abuse Tobacco use disorder documented in this [facility]* Diagnosis Uncontrolled type 2 diabetes mellitus with hyperglycemia (HCC) Primary hypertension Unspecified essential hypertension Coronary artery disease involving [place] coronary artery of [place] heart without angina pectoris BMI 40.0-44.9, adult (HCC) Body Mass Index 40.0-44.9, adult documented in this [facility]* Diagnosis Mild intermittent asthma, unspecified whether complicated (HCC) Uncontrolled type 2 diabetes mellitus with hyperglycemia (HCC) Hypothyroidism, unspecified type documented in this encounter [facility] note* Diagnosis Pain of right hand- Primary Pain in limb Osteoarthritis of right thumb Pain of right hand Pain in limb [facility] Dis[facility] instructions Additional Instructions Make sure you are taking your metformin 500 mg twice daily as previously directed. Follow-up with your primary care provider next week as scheduled.[facility] Work Phone: Hospital Discharge instructions Additional Instructions Please follow-up with your family doctor or Dr. Alvarado for repeat evaluation. Take the antibiotic as directed to resolve the soft tissue skin infection to your abdomen. Using nystatin to resolve your thrush and continue with the Lasix to help with your congestive heart failure symptoms. Return to the ER should you have any [facility] Hospital Discharge instructions Additional Instructions Your abdominal redness is not cellulitis. White count normal. Redness blanches. Use loratadine daily to help with itching. Take prednisone as prescribed. Benadryl as needed in addition if more itching. Monitor your glucose. Follow-up with primary care doctor.[facility] Work Phone: Reason for referral (narrative)* Outpatient Procedure (Routine) - Pending Review Specialty Diagnoses / Procedures Referred By Chata chavira Referred To Contact [facility] Diagnoses Mild intermittent asthma, unspecified whether complicated Procedures LUNG VOLUMES Marivel Agustin MD [address] [facility] [address] [place] [address] [address] Referral ID Status Reason Start Date Expiration Date Visits Requested Visits Authorized [id number] Pending Review Auto-Generat ed Referral 04/27/2023 05/26/2024 1 1 * Outpatient Procedure (Routine) - Pending Review Specialty Diagnoses / Procedures [facility] [place] Diagnoses Mild intermittent asthma, unspecified whether complicated Procedures LUNG DIFFUSION CAPACITY (DLCO) DIFFUSING CAPACITY Marivel Agustin MD [address] [facility] [address] [place] [address] [address] Referral ID Status Reason Start Date Expiration Date Visits Requested Visits Authorized [id number] Pending Review Auto-Generat ed Referral 04/27/2023 05/26/2024 1 1 * Outpatient Procedure (Routine) - Pending Review Specialty Diagnoses / Procedures [facility] [place] Diagnoses Mild intermittent asthma, unspecified whether complicated Procedures SPIROMETRY WITH DILATOR IF OBSTRUCTED BRNCDILAT RSPSE SPMTRY PRE&POST-BRNCDILAT ADMN Marivel Agustin MD [address] [facility] [address] [place] [address] [address] Referral ID Status Reason Start Date Expiration Date Visits Requested Visits Authorized [id number] Pending Review Auto-Generat ed Referral 04/27/2023 05/26/2024 1 1 [facility] for referral (narrative)* Outpatient Procedure (Routine) - Pending Review Specialty Diagnoses / Procedures Referred By Contac t Referred To Contact [facility] Diagnoses Hx of acute myocardial infarction Coronary artery disease involving [place] coronary artery of [place] heart without angina pectoris Procedures ECHO ECHO TTHRC R-T 2D W/WOM-MODE COMPL SPEC&COLR D Yousuf Ponce MD [address] [place] [address] [facility] [place] [address] [id number] Referral ID Status Reason Start Date Expiration Date Visits Requested Visits Authorized [id number] Pending Review Auto-Generat ed Referral 06/26/2023 06/25/2024 1 1 * Diagnostic Procedure Only (Routine) - Authorized Specialty Diagnoses / Procedures Referred By Contac t Referred To Contact MOLECULAR & FUNCTIONAL IMAGING Diagnoses Hx of acute myocardial infarction Coronary artery disease involving [place] coronary artery of [place] heart without angina pectoris Procedures NM CARDIAC PERF STRESS/PHARM MYOCARDIAL SPECT MULTIPLE STUDIES Yousuf Ponce MD [address] [place] [address] Molecular & Functional Imaging [address] [id number] Referral ID Status Reason Start Date Expiration Date Visits Requested Visits Authorized [id number] Authorized Auto-Generat ed Referral 06/26/2023 07/25/2024 1 1 [facility] for referral (narrative)* Diagnostic Procedure Only (Routine) - Pending Review Specialty Diagnoses / Procedures Referred By Contac t Referred To Contact XR IMAGING Diagnoses Osteoarthritis of both knees, unspecified osteoarthritis type Procedures XR KNEE LIMITED 2V AP/LAT LEFT RADIOLOGIC EXAMINATION KNEE 1/2 VIEWS Duncan Craven MD 1 [place] [address] [facility] [place] [address] Referral ID Status Reason Start Date Expiration Date Visits Requested Visits Authorized [id number] Pending Review Auto-Generat ed Referral 3 08/05/2024 1 1 * Diagnostic Procedure Only (Routine) - Pending Review Specialty Diagnoses / Procedures Referred By Contac t Referred To Contact XR IMAGING Diagnoses Osteoarthritis of both knees, unspecified osteoarthritis type Procedures XR KNEE LIMITED 2V AP/LAT RIGHT RADIOLOGIC EXAMINATION KNEE 1/2 VIEWS Duncan Craven MD 1 [place] [address] [facility] [place] [address] Referral ID Status Reason Start Date Expiration Date Visits Requested Visits Authorized [id number] Pending Review Auto-Generat ed Referral 3 08/05/2024 1 1 [facility] for referral (narrative)* Diagnostic Procedure Only (Routine) - Pending Review Specialty Diagnoses / Procedures Referred By Contac t Referred To Contact [facility] Diagnoses Sleep-disordered breathing Procedures HOME SLEEP APNEA TEST (HSAT) SLEEP STD AIRFLOW HRT RATE&O2 SAT EFFORT UNATT Denise Regan MD 1 [place] [address] Neurological [place] [address] [place] [address] Referral ID Status Reason Start Date Expiration Date Visits Requested Visits Authorized [id number] Pending Review Auto-Generat ed Referral 3 07/06/2024 1 1 * Outpatient Procedure (Routine) - Pending Review Specialty Diagnoses / Procedures Referred By Contac t Referred To Contact [facility] Diagnoses Dyspnea on exertion Chronic cough Tobacco abuse Procedures LUNG VOLUMES Denise Regan MD 1 [place] [address] Respiratory [place] [address] [place] [address] Referral ID Status Reason Start Date Expiration Date Visits Requested Visits Authorized [id number] Pending Review Auto-Generat ed Referral 3 08/05/2024 1 1 * Outpatient Procedure (Routine) - Authorized Specialty Diagnoses / Procedures Referred By Contac t Referred To Contact [facility] Diagnoses Dyspnea on exertion Chronic cough Tobacco abuse Procedures LUNG DIFFUSION CAPACITY (DLCO) DIFFUSING CAPACITY Denise Regan MD 1 [place] [address] Respiratory [place] [address] [place], [place] [id number] Referral ID Status Reason Start Date Expiration Date Visits Requested Visits Authorized [id number] Authorized Auto-Generat ed Referral 3 08/05/2024 1 1 * Outpatient Procedure (Routine) - Authorized Specialty Diagnoses / Procedures Referred By Contac t Referred To Contact [facility] Diagnoses Dyspnea on exertion Chronic cough Tobacco abuse Procedures SPIROMETRY WITH DILATOR IF OBSTRUCTED BRNCDILAT RSPSE SPMTRY PRE&POST-BRNCDILAT ADMN Denise Regan MD 1 [place] [address] Respiratory [facility] [address] [place] [address] Referral ID Status Reason Start Date Expiration Date Visits Requested Visits Authorized [id number] Authorized Auto-Generat ed Referral 3 08/05/2024 1 1 [facility] for referral (narrative)* Diagnostic Procedure Only (Routine) - Pending Review Specialty Diagnoses / Procedures Referred By Contac t Referred To Contact XR IMAGING Diagnoses Impingement syndrome of left shoulder Procedures XR SHOULDER 3V AP/Y VIEW/AXILLARY LEFT (AK) RADEX SHOULDER COMPLETE MINIMUM 2 VIEWS Alice Arambula DO [address] [place] [address] [place] [address] Referral ID Status Reason Start Date Expiration Date Visits Requested Visits Authorized [id number] Pending Review Auto-Generat ed Referral 06/18/2023 07/17/2024 1 1 * Physical Therapy (Routine) - Pending Review Specialty Diagnoses / Procedures Referred By Contac t Referred To Contact [facility] Diagnoses Impingement syndrome of left shoulder Procedures CONSULT TO PHYSICAL THERAPY PHYSICAL THERAPY EVALUATION HIGH COMPLEX 45 MINS Alice Arambula DO [address] [place] [address] [facility] [place] [address] [place] [address] Referral ID Status Reason Start Date Expiration Date Visits Requested Visits Authorized [id number] Pending Review Auto-Generat ed Referral 06/18/2023 06/17/2024 1 1 [facility] for referral (narrative)* Diagnostic Procedure Only (Routine) - Closed Specialty Diagnoses / Procedures Referred By Contac t Referred To Contact MOLECULAR & FUNCTIONAL IMAGING Diagnoses Hx of acute myocardial infarction Coronary artery disease involving [place] coronary artery of [place] heart without angina pectoris Procedures NM CARDIAC PERF STRESS/PHARM MYOCARDIAL SPECT MULTIPLE STUDIES Yousuf Ponce MD [address] [place] [address] Molecular & Functional Imaging [address] [place] [address] Referral ID Status Reason Start Date Expiration Date V isits Requested Visits Authorized [id number] Closed Auto-Generate d Referral 06/26/2023 07/25/2024 1 1 [facility] for referral (narrative)* Diagnostic Procedure Only (Routine) - Pending Review Specialty Diagnoses / Procedures Referred By Contac t Referred To Contact XR IMAGING Diagnoses Contusion of left elbow, initial encounter Procedures XR ELBOW SPECIAL VIEWS AP/LAT/OTHER LEFT RADEX ELBOW COMPLETE MINIMUM 3 VIEWS Barbie Wellington DO [address] [place] [address] [place] [address] Referral ID Status Reason Start Date Expiration Date Visits Requested Visits Authorized [id number] Pending Review Auto-Generat ed Referral 03/28/2024 04/27/2025 1 1 [facility] for referral (narrative)* Outpatient Procedure (Routine) - Pending Review Specialty Diagnoses / Procedures Referred By Contac t Referred To [facility] [place] Diagnoses Bilateral lower extremity edema Coronary artery disease involving [place] coronary artery of [place] heart without angina pectoris Procedures ECHO ECHO TTHRC R-T 2D W/WOM-MODE COMPL SPEC&COLR D Duncan Craven MD 1 [place] [address] [facility] [place] [address] Referral ID Status Reason Start Date Expiration Date Visits Requested Visits Authorized [id number] Pending Review Auto-Generat ed Referral 04/11/2024 04/11/2025 1 1 * Outpatient Procedure (Routine) - Authorized Specialty Diagnoses / Procedures Referred By Contac t Referred To [facility] [place] Diagnoses Bilateral lower extremity edema Procedures US LEG VEIN DVT UNL VAS LAB DUP-SCAN XTR VEINS UNILATERAL/LIMITED STUDY Duncan Craven MD 1 [place] [address] [address] Referral ID Status Reason Start Date Expiration Date Visits Requested Visits Authorized [id number] Authorized Auto-Generat ed Referral 04/11/2024 04/11/2025 1 1 * Outpatient Procedure (Routine) - Authorized Specialty Diagnoses / Procedures Referred By Contac t Referred To [facility] [place] Diagnoses Bilateral lower extremity edema Procedures US LEG VEIN DVT UNL VAS LAB DUP-SCAN XTR VEINS UNILATERAL/LIMITED STUDY Duncan Craven MD 1 [place] [address] [facility] [address] [address] Referral ID Status Reason Start Date Expiration Date Visits Requested Visits Authorized [id number] Authorized Auto-Generat ed Referral 04/11/2024 04/11/2025 1 1 T [facility] for referral (narrative)* Outpatient Procedure (Routine) - Closed Specialty Diagnoses / Procedures Referred By Contac t Referred To Contact [facility] Diagnoses Hx of acute myocardial infarction Coronary artery disease involving [place] coronary artery of [place] heart without angina pectoris Procedures ECHO ECHO TTHRC R-T 2D W/WOM-MODE COMPL SPEC&COLR D Yousuf Ponce MD [address] [place] [address] [facility] [place] [address] [id number] Referral ID Status Reason Start Date Expiration Date V isits Requested Visits Authorized [id number] Closed Auto-Generate d Referral 06/26/2023 06/25/2024 1 1 [facility] for referral (narrative)No reason for referral information [facility]WA[facility] Work Phone: Reason for visit Narrative* Diagnostic Procedure Only (Routine) - Closed Specialty Diagnoses / Procedures Referred By Chata t Referred To Contact MOLECULAR & FUNCTIONAL IMAGING Diagnoses Hx of acute myocardial infarction Coronary artery disease involving [place] coronary artery of [place] heart without angina pectoris Procedures NM CARDIAC PERF STRESS/PHARM MYOCARDIAL SPECT MULTIPLE STUDIES Yousuf Ponce MD [address] [place] [address] Molecular & Functional Imaging [address] [id number] Referral ID Status Reason Start Date Expiration Date V isits Requested Visits Authorized [id number] Closed Auto-Generate d Referral 06/26/2023 07/25/2024 1 1 [facility] for visit Narrative* Outpatient Procedure (Routine) - Closed Specialty Diagnoses / Procedures Referred By Contac t Referred To Contact [facility] Diagnoses Hx of acute myocardial infarction Coronary artery disease involving [place] coronary artery of [place] heart without angina pectoris Procedures ECHO ECHO TTHRC R-T 2D W/WOM-MODE COMPL SPEC&COLR D Yousuf Ponce MD [address] [place] [address] [facility] [place] [address] [place] [address] Referral ID Status Reason Start Date Expiration Date V isits Requested Visits Authorized [id number] Closed Auto-Generate d Referral 06/26/2023 06/25/2024 1 1 [facility] for visit Narrative* Auth/Cert (Routine) Specialty Diagnoses / Procedures Referred By Edwardac t Referred To Contact Diagnoses Neck mass Neck mass [R22.1] Procedures BX/EXC LYMPH NODE NEEDLE SUPERFICIAL BIOPSY OR EXCISION LYMPH NODES(S) NEEDLE SUPERFICIAL [facility] INTERVENTIONAL RADIOLOGY [address] [place] [address] Referral ID Status Reason Start Date Expiration Date Visits Re quested Visits Authorized [id number] 1 1 [facility] for visit Narrative* Consult, Test, Treat (Routine) - Closed Specialty Diagnoses / Procedures Referred By Contac t Referred To Contact Diagnoses Type 2 diabetes mellitus with diabetic microalbuminuria, with long-term current use of insulin (HCC) Procedures CONSULT TO DIABETES EDUCATION DSME MEDICAL NUTRITION ASSMT&IVNTJ INDIV EACH 15 [place] MEDICAL NUTRITION ASSMT&IVNTJ INDIV EACH 15 [place] MEDICAL NUTRITION ASSMT&IVNTJ INDIV EACH 15 [place] MEDICAL NUTRITION ASSMT&IVNTJ INDIV EACH 15 [place] Nikolai Nazario DO 1 [facility] [address] [place] [address] Phone: tel: fax: Referral ID Status Reason Start Date Expiration Date V isits Requested Visits Authorized [id number] Closed PCP Requested Referral 01/19/2025 01/19/2026 1 1 [facility] for visit Narrative* Diagnostic Procedure Only (Routine) - Closed Specialty Diagnoses / Procedures Referred By Chata t Referred To Contact XR IMAGING Diagnoses Pain of right hand Procedures XR HAND GENERAL 3V PA/LAT/OBL RIGHT RADEX HAND MINIMUM 3 VIEWS Talita Ross MD [address] [facility] [address] [place] [address] Phone: tel:[phone] fax: IM[place]ING [place] [address] Referral ID Status Reason Start Date Expiration Date V isits Requested Visits Authorized [id number] Closed Auto-Generate d Referral 02/20/2025 03/22/2026 1 1 [facility] Reason for Referral Specialty Diagnoses / Procedures Referred By Contac t Referred To Contact Orthopedics Diagnoses Trigger finger of left hand, unspecified finger Procedures CONSULT TO ORTHOPAEDICS OFFICE/OUTPATIENT [facility] 60-74 MINUTES Duncan Craven MD 1 [place] [address] Referral ID Status Reason Start Date Expiration Date Visits Requested Visits Authorized [id number] Pending Review PCP Requested Referral 03/25/2023 03/24/2024 1 1 Specialty Diagnoses / Procedures Referred By Contac t Referred To Contact Cardiology Diagnoses Hx of acute myocardial infarction Procedures CONSULT TO CARDIOLOGY OFFICE/OUTPATIENT [facility] 60-74 MINUTES Duncan Craven MD 1 [place] [address] Referral ID Status Reason Start Date Expiration Date Visits Requested Visits Authorized [id number] Pending Review PCP Requested Referral 03/25/2023 03/24/2024 1 1 Specialty Diagnoses / Procedures Referred By Contac t Referred To Contact Diagnoses Bipolar 1 disorder (HCC) Procedures CONSULT TO PSYCHIATRY OFFICE/OUTPATIENT [facility] 60-74 MINUTES Duncan Craven MD 1 [place] [address] Referral ID Status Reason Start Date Expiration Date Visits Requested Visits Authorized [id number] Pending Review PCP Requested Referral 03/25/2023 03/24/2024 1 1 Specialty Diagnoses / Procedures Referred By Contac t Referred To Contact Diagnoses Uncontrolled type 2 diabetes mellitus with hyperglycemia (HCC) Procedures CONSULT TO DIABETES EDUCATION DSME/MNT MEDICAL NUTRITION ASSMT&IVNTJ INDIV EACH 15 [place] MEDICAL NUTRITION ASSMT&IVNTJ INDIV EACH 15 [place] MEDICAL NUTRITION ASSMT&IVNTJ INDIV EACH 15 [place] MEDICAL NUTRITION ASSMT&IVNTJ INDIV EACH 15 [place] Duncan Craven MD [address] [place] [address] Referral ID Status Reason Start Date Expiration Date Visits Requested Visits Authorized [id number] Pending Review PCP Requested Referral 04/07/2023 04/06/2024 1 1 Specialty Diagnoses / Procedures Referred By Contac t Referred To Contact PULM COVID RECOV [facility] INDP Diagnoses Cough in adult patient Procedures CONSULT TO COVID RECOVER CLINIC Talita Ross MD [address] [place] [address] Pulm Covid Recov [facility] [address] [place] [address] Referral ID Status Reason Start Date Expiration Date Visits Requested Visits Authorized [id number] Pending Review PCP Requested Referral 05/08/2023 05/07/2024 1 1 Referral ID Status Reason Start Date Expiration Date Visits Requested Visits Authorized [id number] Pending Review PCP Requested Referral 3 09/09/2024 1 1 Specialty Diagnoses / Procedures Referred By Contac t Referred To Contact XR IMAGING Diagnoses Osteoarthritis of both knees, unspecified osteoarthritis type Procedures XR KNEE LIMITED 2V AP/LAT RIGHT RADIOLOGIC EXAMINATION KNEE 1/2 VIEWS Duncan Craven MD 1 [place] [address] [place] [address] Referral ID Status Reason Start Date Expiration Date Visits Requested Visits Authorized [id number] Pending Review Auto-Generat ed Referral 3 10/09/2024 1 1 Specialty Diagnoses / Procedures Referred By Contac t Referred To Contact XR IMAGING Diagnoses Osteoarthritis of both knees, unspecified osteoarthritis type Procedures XR KNEE LIMITED 2V AP/LAT LEFT RADIOLOGIC EXAMINATION KNEE 1/2 VIEWS Duncan Craven MD [address] [place] [address] [place] [address] Referral ID Status Reason Start Date Expiration Date Visits Requested Visits Authorized [id number] Pending Review Auto-Generat ed Referral 3 10/09/2024 1 1 Specialty Diagnoses / Procedures Referred By Contac t Referred To Contact [facility] Diagnoses Mild intermittent asthma, unspecified whether complicated Procedures LUNG DIFFUSION CAPACITY (DLCO) DIFFUSING CAPACITY Duncan Crvaen MD [address] [place] [address] [address] Referral ID Status Reason Start Date Expiration Date Visits Requested Visits Authorized [id number] Pending Review Auto-Generat ed Referral 3 10/09/2024 1 1 Specialty Diagnoses / Procedures Referred By Contac t Referred To Contact [facility] Diagnoses Mild intermittent asthma, unspecified whether complicated Procedures LUNG VOLUMES Duncan Craven MD [address] [place] [address] [address] Referral ID Status Reason Start Date Expiration Date Visits Requested Visits Authorized [id number] Pending Review Auto-Generat ed Referral 3 10/09/2024 1 1 Specialty Diagnoses / Procedures Referred By Contac t Referred To Contact [facility] Diagnoses Mild intermittent asthma, unspecified whether complicated Procedures SPIROMETRY - BASELINE AND POST DILATOR BRNCDILAT RSPSE SPMTRY PRE&POST-BRNCDILAT ADMN Duncan Craven MD [address] [place] [address] [address] Referral ID Status Reason Start Date Expiration Date Visits Requested Visits Authorized [id number] Pending Review Auto-Generat ed Referral 3 10/09/2024 1 1 Referral ID Status Reason Start Date Expiration Date Visits Requested Visits Authorized [id number] Authorized PCP Requested Referral 3 09/09/2024 1 1 Specialty Diagnoses / Procedures Referred By Contac t Referred To Contact Podiatry Diagnoses Uncontrolled type 2 diabetes mellitus with hyperglycemia (HCC) Procedures CONSULT TO PODIATRY OFFICE/OUTPATIENT [facility] MDM 60-74 MINUTES Duncan Craven MD [address] [place] [address] Referral ID Status Reason Start Date Expiration Date Visits Requested Visits Authorized [id number] Authorized PCP Requested Referral 3 09/09/2024 1 1 Specialty Diagnoses / Procedures Referred By Contac t Referred To Contact Ophthalmology Diagnoses Uncontrolled type 2 diabetes mellitus with hyperglycemia (HCC) Procedures CONSULT TO OPHTHALMOLOGY OFFICE/OUTPATIENT [facility] 60-74 MINUTES Duncan Craven MD [address] [place] [address] Referral ID Status Reason Start Date Expiration Date Visits Requested Visits Authorized [id number] Authorized PCP Requested Referral 3 09/09/2024 1 1 Specialty Diagnoses / Procedures Referred By Contac t Referred To Contact Diagnoses Uncontrolled type 2 diabetes mellitus with hyperglycemia (HCC) Procedures CONSULT TO DIABETES EDUCATION DSME MEDICAL NUTRITION ASSMT&IVNTJ INDIV EACH 15 [place] MEDICAL NUTRITION ASSMT&IVNTJ INDIV EACH 15 [place] MEDICAL NUTRITION ASSMT&IVNTJ INDIV EACH 15 [place] MEDICAL NUTRITION ASSMT&IVNTJ INDIV EACH 15 [place] Duncan Craven MD [address] [place] [address] Referral ID Status Reason Start Date Expiration Date Visits Requested Visits Authorized [id number] Authorized PCP Requested Referral 07/29/2024 07/29/2025 1 1 Specialty Diagnoses / Procedures Referred By Contac t Referred To Contact General Surgery Diagnoses Lipoma of neck Procedures CONSULT TO GENERAL SURGERY OFFICE/OUTPATIENT [facility] 60 MINUTES Duncan Craven MD [address] [place] [address] Referral ID Status Reason Start Date Expiration Date Visits Requested Visits Authorized [id number] Authorized PCP Requested Referral 10/13/2024 10/13/2025 1 1 Specialty Diagnoses / Procedures Referred By Contac t Referred To Contact Cardiology Diagnoses Chronic HFrEF (heart failure with reduced ejection fraction) (HCC) Procedures CONSULT TO CARDIOLOGY OFFICE/OUTPATIENT [facility] 60 MINUTES Claus Anderson DO 1 [facility] [address] [place] [address] Yousuf Ponce MD [address], [facility] [address] [place] [address] Referral ID Status Reason Start Date Expiration Date Visits Requested Visits Authorized [id number] Authorized PCP Requested Referral 10/18/2024 10/18/2025 1 1 Specialty Diagnoses / Procedures Referred By hCata t Referred To Contact CT IMAGING Diagnoses Neck mass Procedures CT NECK SOFT TISSUE W IVCON CT SOFT TISSUE NECK W/CONTRAST MATERIAL Inder Bruce MD [address] [facility] [address] [place] [address] [place] [address] Referral ID Status Reason Start Date Expiration Date Visits Requested Visits Authorized [id number] Authorized Auto-Generat ed Referral 10/18/2024 11/17/2025 1 1 Medications Administered Section Inactive Administered Medications - up to 3 most recent administrations Medication Order MAR Action Action Date Dose Rate Site betamethasone acetate-betamethasone sodium phosphate 3 mg injection (CELESTONE) 3 mg, Injection - FOR ORTHO USE ONLY, ONE TIME INJECTION, 1 dose, Starting on Thu05/08/23 at 0947, Until Thu05/08/23 at 0947 Given 05/08/2023 9:47 AM EDT 3 mg Hand, Right lidocaine (PF) 10 mg/mL (1 %) 0.5 mL injection (XYLOCAINE) 0.5 mL, Injection - FOR ORTHO USE ONLY, ONE TIME INJECTION, 1 dose, Starting on Thu05/08/23 at 0947, Until Thu05/08/23 at 0947 Given 05/08/2023 9:47 AM EDT 0.5 mL Hand, Right Summary Purpose Family History No Family History Records Found Advance Directives No Advanced Directives Records Found Date Activated Date Inactivated Comments 04/13/2024 10:22 PM 04/15/2024 4:19 PM Question Answer Comments Full Code Order Discussed With: Patient Date Activated Date Inactivated Comments 04/13/2024 10:22 PM 04/15/2024 4:19 PM Question Answer Comments Full Code Order Discussed With: Patient Advance Directive Response Recorded Date/ Time Living Will No September 04 7:50am Power of Performance Test Engineer No September 04, 2023 7:50am Advance Directive Response Recorded Date/ Time Living Will No December 23, 2024 12:46am Do you have a Healthcare Power of Performance Test Engineer? No December 23, 2024 12:46am Living Will No August 31, 024 9:40am Do you have a Healthcare Power of Performance Test Engineer? No August 31, 2024 9:40am Advance Directive Response Recorded Date/ Time Living Will No December 23, 2024 12:46am Do you have a Healthcare Power of Performance Test Engineer? No December 23, 2024 12:46am Living Will No January 05, 2025 9:24pm Do you have a Healthcare Power of Performance Test Engineer? No January 05, 2025 9:24pm Date Activated Date Inactivated Comments 01/13/2025 11:52 PM 01/17/2025 1:32 PM Chief Complaint and Reason for Visit Chief Complaint hyperglycemia Chief Complaint Admit Date sob August 31, 2024 8:35am FALL December 23, 2024 12:3 8am Chief Complaint Admit Date FALL December 23, 2024 12:3 8am GEN ILLNESS January 05, 2025 9:0 2pm Additional Source Comments Source Comments (unrecognize d section and content) In the event this informatio n is protected by the Federal Confidentiality of Alcohol and Drug Abuse Patient Records regulations: The Federal rules restrict any use of the information to criminally investigate or prosecute any alcohol or drug abuse patient.[facility] the event this information is protected by the Federal Confidentiality of Alcohol and Drug Abuse Patient Records regulations: The Federal rules restrict any use of the information to criminally investigate or prosecute any alcohol or drug abuse patient.[facility] HospitalIn the event this information is protected by the Federal Confidentiality of Alcohol and Drug Abuse Patient Records regulations: The Federal rules restrict any use of the information to criminally investigate or prosecute any alcohol or drug abuse patient.[facility] HospitalIn the event this information is protected by the Federal Confidentiality of Alcohol and Drug Abuse Patient Records regulations: The Federal rules restrict any use of the information to criminally investigate or prosecute any alcohol or drug abuse patient.[facility] HospitalIn the event this information is protected by the Federal Confidentiality of Alcohol and Drug Abuse Patient Records regulations: The Federal rules restrict any use of the information to criminally investigate or prosecute any alcohol or drug abuse patient.[facility] HospitalIn the event this information is protected by the Federal Confidentiality of Alcohol and Drug Abuse Patient Records regulations: The Federal rules restrict any use of the information to criminally investigate or prosecute any alcohol or drug abuse patient.[facility] HospitalIn the event this information is protected by the Federal Confidentiality of Alcohol and Drug Abuse Patient Records regulations: The Federal rules restrict any use of the information to criminally investigate or prosecute any alcohol or drug abuse patient.[facility] HospitalIn the event this information is protected by the Federal Confidentiality of Alcohol and Drug Abuse Patient Records regulations: The Federal rules restrict any use of the information to criminally investigate or prosecute any alcohol or drug abuse patient.[facility] HospitalIn the event this information is protected by the Federal Confidentiality of Alcohol and Drug Abuse Patient Records regulations: The Federal rules restrict any use of the information to criminally investigate or prosecute any alcohol or drug abuse patient.[facility] HospitalIn the event this information is protected by the Federal Confidentiality of Alcohol and Drug Abuse Patient Records regulations: The Federal rules restrict any use of the information to criminally investigate or prosecute any alcohol or drug abuse patient.[facility] HospitalIn the event this information is protected by the Federal Confidentiality of Alcohol and Drug Abuse Patient Records regulations: The Federal rules restrict any use of the information to criminally investigate or prosecute any alcohol or drug abuse patient.[facility] HospitalIn the event this information is protected by the Federal Confidentiality of Alcohol and Drug Abuse Patient Records regulations: The Federal rules restrict any use of the information to criminally investigate or prosecute any alcohol or drug abuse patient.[facility] HospitalIn the event this information is protected by the Federal Confidentiality of Alcohol and Drug Abuse Patient Records regulations: The Federal rules restrict any use of the information to criminally investigate or prosecute any alcohol or drug abuse patient.[facility] HospitalIn the event this information is protected by the Federal Confidentiality of Alcohol and Drug Abuse Patient Records regulations: The Federal rules restrict any use of the information to criminally investigate or prosecute any alcohol or drug abuse patient.[facility] HospitalIn the event this information is protected by the Federal Confidentiality of Alcohol and Drug Abuse Patient Records regulations: The Federal rules restrict any use of the information to criminally investigate or prosecute any alcohol or drug abuse patient.[facility] HospitalIn the event this information is protected by the Federal Confidentiality of Alcohol and Drug Abuse Patient Records regulations: The Federal rules restrict any use of the information to criminally investigate or prosecute any alcohol or drug abuse patient.[facility] HospitalIn the event this information is protected by the Federal Confidentiality of Alcohol and Drug Abuse Patient Records regulations: The Federal rules restrict any use of the information to criminally investigate or prosecute any alcohol or drug abuse patient.[facility] HospitalIn the event this information is protected by the Federal Confidentiality of Alcohol and Drug Abuse Patient Records regulations: The Federal rules restrict any use of the information to criminally investigate or prosecute any alcohol or drug abuse patient.[facility] HospitalIn the event this information is protected by the Federal Confidentiality of Alcohol and Drug Abuse Patient Records regulations: The Federal rules restrict any use of the information to criminally investigate or prosecute any alcohol or drug abuse patient.[facility] HospitalIn the event this information is protected by the Federal Confidentiality of Alcohol and Drug Abuse Patient Records regulations: The Federal rules restrict any use of the information to criminally investigate or prosecute any alcohol or drug abuse patient.[facility] HospitalIn the event this information is protected by the Federal Confidentiality of Alcohol and Drug Abuse Patient Records regulations: The Federal rules restrict any use of the information to criminally investigate or prosecute any alcohol or drug abuse patient.[facility] HospitalIn the event this information is protected by the Federal Confidentiality of Alcohol and Drug Abuse Patient Records regulations: The Federal rules restrict any use of the information to criminally investigate or prosecute any alcohol or drug abuse patient.[facility] HospitalIn the event this information is protected by the Federal Confidentiality of Alcohol and Drug Abuse Patient Records regulations: The Federal rules restrict any use of the information to criminally investigate or prosecute any alcohol or drug abuse patient.[facility] HospitalIn the event this information is protected by the Federal Confidentiality of Alcohol and Drug Abuse Patient Records regulations: The Federal rules restrict any use of the information to criminally investigate or prosecute any alcohol or drug abuse patient.[facility] HospitalIn the event this information is protected by the Federal Confidentiality of Alcohol and Drug Abuse Patient Records regulations: The Federal rules restrict any use of the information to criminally investigate or prosecute any alcohol or drug abuse patient.[facility] HospitalIn the event this information is protected by the Federal Confidentiality of Alcohol and Drug Abuse Patient Records regulations: The Federal rules restrict any use of the information to criminally investigate or prosecute any alcohol or drug abuse patient.[facility] HospitalIn the event this information is protected by the Federal Confidentiality of Alcohol and Drug Abuse Patient Records regulations: The Federal rules restrict any use of the information to criminally investigate or prosecute any alcohol or drug abuse patient.[facility] HospitalIn the event this information is protected by the Federal Confidentiality of Alcohol and Drug Abuse Patient Records regulations: The Federal rules restrict any use of the information to criminally investigate or prosecute any alcohol or drug abuse patient.[facility] HospitalIn the event this information is protected by the Federal Confidentiality of Alcohol and Drug Abuse Patient Records regulations: The Federal rules restrict any use of the information to criminally investigate or prosecute any alcohol or drug abuse patient.[facility] HospitalIn the event this information is protected by the Federal Confidentiality of Alcohol and Drug Abuse Patient Records regulations: The Federal rules restrict any use of the information to criminally investigate or prosecute any alcohol or drug abuse patient.[facility] HospitalIn the event this information is protected by the Federal Confidentiality of Alcohol and Drug Abuse Patient Records regulations: The Federal rules restrict any use of the information to criminally investigate or prosecute any alcohol or drug abuse patient.[facility] HospitalIn the event this information is protected by the Federal Confidentiality of Alcohol and Drug Abuse Patient Records regulations: The Federal rules restrict any use of the information to criminally investigate or prosecute any alcohol or drug abuse patient.[facility] HospitalIn the event this information is protected by the Federal Confidentiality of Alcohol and Drug Abuse Patient Records regulations: The Federal rules restrict any use of the information to criminally investigate or prosecute any alcohol or drug abuse patient.[facility] HospitalIn the event this information is protected by the Federal Confidentiality of Alcohol and Drug Abuse Patient Records regulations: The Federal rules restrict any use of the information to criminally investigate or prosecute any alcohol or drug abuse patient.[facility] HospitalIn the event this information is protected by the Federal Confidentiality of Alcohol and Drug Abuse Patient Records regulations: The Federal rules restrict any use of the information to criminally investigate or prosecute any alcohol or drug abuse patient.[facility] HospitalIn the event this information is protected by the Federal Confidentiality of Alcohol and Drug Abuse Patient Records regulations: The Federal rules restrict any use of the information to criminally investigate or prosecute any alcohol or drug abuse patient.[facility] HospitalIn the event this information is protected by the Federal Confidentiality of Alcohol and Drug Abuse Patient Records regulations: The Federal rules restrict any use of the information to criminally investigate or prosecute any alcohol or drug abuse patient.[facility] HospitalIn the event this information is protected by the Federal Confidentiality of Alcohol and Drug Abuse Patient Records regulations: The Federal rules restrict any use of the information to criminally investigate or prosecute any alcohol or drug abuse patient.[facility] HospitalIn the event this information is protected by the Federal Confidentiality of Alcohol and Drug Abuse Patient Records regulations: The Federal rules restrict any use of the information to criminally investigate or prosecute any alcohol or drug abuse patient.[facility] HospitalIn the event this information is protected by the Federal Confidentiality of Alcohol and Drug Abuse Patient Records regulations: The Federal rules restrict any use of the information to criminally investigate or prosecute any alcohol or drug abuse patient.[facility] HospitalIn the event this information is protected by the Federal Confidentiality of Alcohol and Drug Abuse Patient Records regulations: The Federal rules restrict any use of the information to criminally investigate or prosecute any alcohol or drug abuse patient.[facility] HospitalIn the event this information is protected by the Federal Confidentiality of Alcohol and Drug Abuse Patient Records regulations: The Federal rules restrict any use of the information to criminally investigate or prosecute any alcohol or drug abuse patient.[facility] HospitalIn the event this information is protected by the Federal Confidentiality of Alcohol and Drug Abuse Patient Records regulations: The Federal rules restrict any use of the information to criminally investigate or prosecute any alcohol or drug abuse patient.[facility] HospitalIn the event this information is protected by the Federal Confidentiality of Alcohol and Drug Abuse Patient Records regulations: The Federal rules restrict any use of the information to criminally investigate or prosecute any alcohol or drug abuse patient.[facility] HospitalIn the event this information is protected by the Federal Confidentiality of Alcohol and Drug Abuse Patient Records regulations: The Federal rules restrict any use of the information to criminally investigate or prosecute any alcohol or drug abuse patient.[facility] HospitalIn the event this information is protected by the Federal Confidentiality of Alcohol and Drug Abuse Patient Records regulations: The Federal rules restrict any use of the information to criminally investigate or prosecute any alcohol or drug abuse patient.[facility] HospitalIn the event this information is protected by the Federal Confidentiality of Alcohol and Drug Abuse Patient Records regulations: The Federal rules restrict any use of the information to criminally investigate or prosecute any alcohol or drug abuse patient.[facility] HospitalIn the event this information is protected by the Federal Confidentiality of Alcohol and Drug Abuse Patient Records regulations: The Federal rules restrict any use of the information to criminally investigate or prosecute any alcohol or drug abuse patient.[facility] HospitalIn the event this information is protected by the Federal Confidentiality of Alcohol and Drug Abuse Patient Records regulations: The Federal rules restrict any use of the information to criminally investigate or prosecute any alcohol or drug abuse patient.[facility] HospitalIn the event this information is protected by the Federal Confidentiality of Alcohol and Drug Abuse Patient Records regulations: The Federal rules restrict any use of the information to criminally investigate or prosecute any alcohol or drug abuse patient.[facility] HospitalIn the event this information is protected by the Federal Confidentiality of Alcohol and Drug Abuse Patient Records regulations: The Federal rules restrict any use of the information to criminally investigate or prosecute any alcohol or drug abuse patient.[facility] HospitalIn the event this information is protected by the Federal Confidentiality of Alcohol and Drug Abuse Patient Records regulations: The Federal rules restrict any use of the information to criminally investigate or prosecute any alcohol or drug abuse patient.[facility] HospitalIn the event this information is protected by the Federal Confidentiality of Alcohol and Drug Abuse Patient Records regulations: The Federal rules restrict any use of the information to criminally investigate or prosecute any alcohol or drug abuse patient.[facility] HospitalIn the event this information is protected by the Federal Confidentiality of Alcohol and Drug Abuse Patient Records regulations: The Federal rules restrict any use of the information to criminally investigate or prosecute any alcohol or drug abuse patient.[facility] HospitalIn the event this information is protected by the Federal Confidentiality of Alcohol and Drug Abuse Patient Records regulations: The Federal rules restrict any use of the information to criminally investigate or prosecute any alcohol or drug abuse patient.[facility] HospitalIn the event this information is protected by the Federal Confidentiality of Alcohol and Drug Abuse Patient Records regulations: The Federal rules restrict any use of the information to criminally investigate or prosecute any alcohol or drug abuse patient.[facility] HospitalIn the event this information is protected by the Federal Confidentiality of Alcohol and Drug Abuse Patient Records regulations: The Federal rules restrict any use of the information to criminally investigate or prosecute any alcohol or drug abuse patient.[facility] HospitalIn the event this information is protected by the Federal Confidentiality of Alcohol and Drug Abuse Patient Records regulations: The Federal rules restrict any use of the information to criminally investigate or prosecute any alcohol or drug abuse patient.[facility] HospitalIn the event this information is protected by the Federal Confidentiality of Alcohol and Drug Abuse Patient Records regulations: The Federal rules restrict any use of the information to criminally investigate or prosecute any alcohol or drug abuse patient.[facility] HospitalIn the event this information is protected by the Federal Confidentiality of Alcohol and Drug Abuse Patient Records regulations: The Federal rules restrict any use of the information to criminally investigate or prosecute any alcohol or drug abuse patient.[facility] HospitalIn the event this information is protected by the Federal Confidentiality of Alcohol and Drug Abuse Patient Records regulations: The Federal rules restrict any use of the information to criminally investigate or prosecute any alcohol or drug abuse patient.[facility] HospitalIn the event this information is protected by the Federal Confidentiality of Alcohol and Drug Abuse Patient Records regulations: The Federal rules restrict any use of the information to criminally investigate or prosecute any alcohol or drug abuse patient.[facility] HospitalIn the event this information is protected by the Federal Confidentiality of Alcohol and Drug Abuse Patient Records regulations: The Federal rules restrict any use of the information to criminally investigate or prosecute any alcohol or drug abuse patient.[facility] HospitalIn the event this information is protected by the Federal Confidentiality of Alcohol and Drug Abuse Patient Records regulations: The Federal rules restrict any use of the information to criminally investigate or prosecute any alcohol or drug abuse patient.[facility] HospitalIn the event this information is protected by the Federal Confidentiality of Alcohol and Drug Abuse Patient Records regulations: The Federal rules restrict any use of the information to criminally investigate or prosecute any alcohol or drug abuse patient.[facility] HospitalIn the event this information is protected by the Federal Confidentiality of Alcohol and Drug Abuse Patient Records regulations: The Federal rules restrict any use of the information to criminally investigate or prosecute any alcohol or drug abuse patient.[facility] HospitalIn the event this information is protected by the Federal Confidentiality of Alcohol and Drug Abuse Patient Records regulations: The Federal rules restrict any use of the information to criminally investigate or prosecute any alcohol or drug abuse patient.[facility] HospitalIn the event this information is protected by the Federal Confidentiality of Alcohol and Drug Abuse Patient Records regulations: The Federal rules restrict any use of the information to criminally investigate or prosecute any alcohol or drug abuse patient.[facility] HospitalIn the event this information is protected by the Federal Confidentiality of Alcohol and Drug Abuse Patient Records regulations: The Federal rules restrict any use of the information to criminally investigate or prosecute any alcohol or drug abuse patient.[facility] HospitalIn the event this information is protected by the Federal Confidentiality of Alcohol and Drug Abuse Patient Records regulations: The Federal rules restrict any use of the information to criminally investigate or prosecute any alcohol or drug abuse patient.[facility] HospitalIn the event this information is protected by the Federal Confidentiality of Alcohol and Drug Abuse Patient Records regulations: The Federal rules restrict any use of the information to criminally investigate or prosecute any alcohol or drug abuse patient.[facility] HospitalIn the event this information is protected by the Federal Confidentiality of Alcohol and Drug Abuse Patient Records regulations: The Federal rules restrict any use of the information to criminally investigate or prosecute any alcohol or drug abuse patient.[facility] HospitalIn the event this information is protected by the Federal Confidentiality of Alcohol and Drug Abuse Patient Records regulations: The Federal rules restrict any use of the information to criminally investigate or prosecute any alcohol or drug abuse patient.[facility] HospitalIn the event this information is protected by the Federal Confidentiality of Alcohol and Drug Abuse Patient Records regulations: The Federal rules restrict any use of the information to criminally investigate or prosecute any alcohol or drug abuse patient.[facility] HospitalIn the event this information is protected by the Federal Confidentiality of Alcohol and Drug Abuse Patient Records regulations: The Federal rules restrict any use of the information to criminally investigate or prosecute any alcohol or drug abuse patient.[facility] HospitalIn the event this information is protected by the Federal Confidentiality of Alcohol and Drug Abuse Patient Records regulations: The Federal rules restrict any use of the information to criminally investigate or prosecute any alcohol or drug abuse patient.[facility] HospitalIn the event this information is protected by the Federal Confidentiality of Alcohol and Drug Abuse Patient Records regulations: The Federal rules restrict any use of the information to criminally investigate or prosecute any alcohol or drug abuse patient.[facility] HospitalIn the event this information is protected by the Federal Confidentiality of Alcohol and Drug Abuse Patient Records regulations: The Federal rules restrict any use of the information to criminally investigate or prosecute any alcohol or drug abuse patient.[facility] HospitalIn the event this information is protected by the Federal Confidentiality of Alcohol and Drug Abuse Patient Records regulations: The Federal rules restrict any use of the information to criminally investigate or prosecute any alcohol or drug abuse patient.[facility] HospitalIn the event this information is protected by the Federal Confidentiality of Alcohol and Drug Abuse Patient Records regulations: The Federal rules restrict any use of the information to criminally investigate or prosecute any alcohol or drug abuse patient.[facility] HospitalIn the event this information is protected by the Federal Confidentiality of Alcohol and Drug Abuse Patient Records regulations: The Federal rules restrict any use of the information to criminally investigate or prosecute any alcohol or drug abuse patient.[facility] HospitalIn the event this information is protected by the Federal Confidentiality of Alcohol and Drug Abuse Patient Records regulations: The Federal rules restrict any use of the information to criminally investigate or prosecute any alcohol or drug abuse patient.[facility] HospitalIn the event this information is protected by the Federal Confidentiality of Alcohol and Drug Abuse Patient Records regulations: The Federal rules restrict any use of the information to criminally investigate or prosecute any alcohol or drug abuse patient.[facility] HospitalIn the event this information is protected by the Federal Confidentiality of Alcohol and Drug Abuse Patient Records regulations: The Federal rules restrict any use of the information to criminally investigate or prosecute any alcohol or drug abuse patient.[facility] HospitalIn the event this information is protected by the Federal Confidentiality of Alcohol and Drug Abuse Patient Records regulations: The Federal rules restrict any use of the information to criminally investigate or prosecute any alcohol or drug abuse patient.[facility] HospitalIn the event this information is protected by the Federal Confidentiality of Alcohol and Drug Abuse Patient Records regulations: The Federal rules restrict any use of the information to criminally investigate or prosecute any alcohol or drug abuse patient.[facility] HospitalIn the event this information is protected by the Federal Confidentiality of Alcohol and Drug Abuse Patient Records regulations: The Federal rules restrict any use of the information to criminally investigate or prosecute any alcohol or drug abuse patient.[facility] HospitalIn the event this information is protected by the Federal Confidentiality of Alcohol and Drug Abuse Patient Records regulations: The Federal rules restrict any use of the information to criminally investigate or prosecute any alcohol or drug abuse patient.[facility] HospitalIn the event this information is protected by the Federal Confidentiality of Alcohol and Drug Abuse Patient Records regulations: The Federal rules restrict any use of the information to criminally investigate or prosecute any alcohol or drug abuse patient.[facility] HospitalIn the event this information is protected by the Federal Confidentiality of Alcohol and Drug Abuse Patient Records regulations: The Federal rules restrict any use of the information to criminally investigate or prosecute any alcohol or drug abuse patient.[facility] HospitalIn the event this information is protected by the Federal Confidentiality of Alcohol and Drug Abuse Patient Records regulations: The Federal rules restrict any use of the information to criminally investigate or prosecute any alcohol or drug abuse patient.[facility] HospitalIn the event this information is protected by the Federal Confidentiality of Alcohol and Drug Abuse Patient Records regulations: The Federal rules restrict any use of the information to criminally investigate or prosecute any alcohol or drug abuse patient.[facility] HospitalIn the event this information is protected by the Federal Confidentiality of Alcohol and Drug Abuse Patient Records regulations: The Federal rules restrict any use of the information to criminally investigate or prosecute any alcohol or drug abuse patient.[facility] HospitalIn the event this information is protected by the Federal Confidentiality of Alcohol and Drug Abuse Patient Records regulations: The Federal rules restrict any use of the information to criminally investigate or prosecute any alcohol or drug abuse patient.[facility] HospitalIn the event this information is protected by the Federal Confidentiality of Alcohol and Drug Abuse Patient Records regulations: The Federal rules restrict any use of the information to criminally investigate or prosecute any alcohol or drug abuse patient.[facility] HospitalIn the event this information is protected by the Federal Confidentiality of Alcohol and Drug Abuse Patient Records regulations: The Federal rules restrict any use of the information to criminally investigate or prosecute any alcohol or drug abuse patient.[facility] HospitalIn the event this information is protected by the Federal Confidentiality of Alcohol and Drug Abuse Patient Records regulations: The Federal rules restrict any use of the information to criminally investigate or prosecute any alcohol or drug abuse patient.[facility] HospitalIn the event this information is protected by the Federal Confidentiality of Alcohol and Drug Abuse Patient Records regulations: The Federal rules restrict any use of the information to criminally investigate or prosecute any alcohol or drug abuse patient.[facility] HospitalIn the event this information is protected by the Federal Confidentiality of Alcohol and Drug Abuse Patient Records regulations: The Federal rules restrict any use of the information to criminally investigate or prosecute any alcohol or drug abuse patient.[facility] HospitalIn the event this information is protected by the Federal Confidentiality of Alcohol and Drug Abuse Patient Records regulations: The Federal rules restrict any use of the information to criminally investigate or prosecute any alcohol or drug abuse patient.[facility] HospitalIn the event this information is protected by the Federal Confidentiality of Alcohol and Drug Abuse Patient Records regulations: The Federal rules restrict any use of the information to criminally investigate or prosecute any alcohol or drug abuse patient.[facility] HospitalIn the event this information is protected by the Federal Confidentiality of Alcohol and Drug Abuse Patient Records regulations: The Federal rules restrict any use of the information to criminally investigate or prosecute any alcohol or drug abuse patient.[facility] HospitalIn the event this information is protected by the Federal Confidentiality of Alcohol and Drug Abuse Patient Records regulations: The Federal rules restrict any use of the information to criminally investigate or prosecute any alcohol or drug abuse patient.[facility] HospitalIn the event this information is protected by the Federal Confidentiality of Alcohol and Drug Abuse Patient Records regulations: The Federal rules restrict any use of the information to criminally investigate or prosecute any alcohol or drug abuse patient.[facility] HospitalIn the event this information is protected by the Federal Confidentiality of Alcohol and Drug Abuse Patient Records regulations: The Federal rules restrict any use of the information to criminally investigate or prosecute any alcohol or drug abuse patient.[facility] HospitalIn the event this information is protected by the Federal Confidentiality of Alcohol and Drug Abuse Patient Records regulations: The Federal rules restrict any use of the information to criminally investigate or prosecute any alcohol or drug abuse patient.[facility] HospitalIn the event this information is protected by the Federal Confidentiality of Alcohol and Drug Abuse Patient Records regulations: The Federal rules restrict any use of the information to criminally investigate or prosecute any alcohol or drug abuse patient.[facility] HospitalIn the event this information is protected by the Federal Confidentiality of Alcohol and Drug Abuse Patient Records regulations: The Federal rules restrict any use of the information to criminally investigate or prosecute any alcohol or drug abuse patient.[facility] HospitalIn the event this information is protected by the Federal Confidentiality of Alcohol and Drug Abuse Patient Records regulations: The Federal rules restrict any use of the information to criminally investigate or prosecute any alcohol or drug abuse patient.[facility] HospitalIn the event this information is protected by the Federal Confidentiality of Alcohol and Drug Abuse Patient Records regulations: The Federal rules restrict any use of the information to criminally investigate or prosecute any alcohol or drug abuse patient.[facility] HospitalIn the event this information is protected by the Federal Confidentiality of Alcohol and Drug Abuse Patient Records regulations: The Federal rules restrict any use of the information to criminally investigate or prosecute any alcohol or drug abuse patient.[facility] HospitalIn the event this information is protected by the Federal Confidentiality of Alcohol and Drug Abuse Patient Records regulations: The Federal rules restrict any use of the information to criminally investigate or prosecute any alcohol or drug abuse patient.[facility] HospitalIn the event this information is protected by the Federal Confidentiality of Alcohol and Drug Abuse Patient Records regulations: The Federal rules restrict any use of the information to criminally investigate or prosecute any alcohol or drug abuse patient.[facility] HospitalIn the event this information is protected by the Federal Confidentiality of Alcohol and Drug Abuse Patient Records regulations: The Federal rules restrict any use of the information to criminally investigate or prosecute any alcohol or drug abuse patient.[facility] HospitalIn the event this information is protected by the Federal Confidentiality of Alcohol and Drug Abuse Patient Records regulations: The Federal rules restrict any use of the information to criminally investigate or prosecute any alcohol or drug abuse patient.[facility] HospitalIn the event this information is protected by the Federal Confidentiality of Alcohol and Drug Abuse Patient Records regulations: The Federal rules restrict any use of the information to criminally investigate or prosecute any alcohol or drug abuse patient.[facility] HospitalIn the event this information is protected by the Federal Confidentiality of Alcohol and Drug Abuse Patient Records regulations: The Federal rules restrict any use of the information to criminally investigate or prosecute any alcohol or drug abuse patient.[facility] HospitalIn the event this information is protected by the Federal Confidentiality of Alcohol and Drug Abuse Patient Records regulations: The Federal rules restrict any use of the information to criminally investigate or prosecute any alcohol or drug abuse patient.[facility] HospitalIn the event this information is protected by the Federal Confidentiality of Alcohol and Drug Abuse Patient Records regulations: The Federal rules restrict any use of the information to criminally investigate or prosecute any alcohol or drug abuse patient.[facility] HospitalIn the event this information is protected by the Federal Confidentiality of Alcohol and Drug Abuse Patient Records regulations: The Federal rules restrict any use of the information to criminally investigate or prosecute any alcohol or drug abuse patient.[facility] HospitalIn the event this information is protected by the Federal Confidentiality of Alcohol and Drug Abuse Patient Records regulations: The Federal rules restrict any use of the information to criminally investigate or prosecute any alcohol or drug abuse patient.[facility] HospitalIn the event this information is protected by the Federal Confidentiality of Alcohol and Drug Abuse Patient Records regulations: The Federal rules restrict any use of the information to criminally investigate or prosecute any alcohol or drug abuse patient.[facility] HospitalIn the event this information is protected by the Federal Confidentiality of Alcohol and Drug Abuse Patient Records regulations: The Federal rules restrict any use of the information to criminally investigate or prosecute any alcohol or drug abuse patient.[facility] HospitalIn the event this information is protected by the Federal Confidentiality of Alcohol and Drug Abuse Patient Records regulations: The Federal rules restrict any use of the information to criminally investigate or prosecute any alcohol or drug abuse patient.[facility] HospitalIn the event this information is protected by the Federal Confidentiality of Alcohol and Drug Abuse Patient Records regulations: The Federal rules restrict any use of the information to criminally investigate or prosecute any alcohol or drug abuse patient.[facility] Reason for Visit (unrecogniz ed section and content) Reason Comments Referral Information Consult to psychiat ry Reason Comments Referral Information Consult to orthopae dics Reason Comments Referral Information Consult to cardiolo gy Reason Comments Sleep Problem Reason Comments Appointment Reason Comments Results Appointment Orders Reason Comments Appointment LVM to please call s cheduling for the Diabetes referral received from provider. Scheduling and office number provided. Reason Comments Follow Up Reason Comments New Left hand lump and r ight ring finger Specialty Diagnoses / Procedures Referred By Chata t Referred To Contact Orthopedics Diagnoses Trigger finger of left hand, unspecified finger Procedures CONSULT TO ORTHOPAEDICS OFFICE/OUTPATIENT [facility] 60-74 MINUTES Duncan Craven MD [address] [place] [address] Referral ID Status Reason Start Date Expiration Date Visits Requested Visits Authorized [id number] Pending Review PCP Requested Referral 03/25/2023 03/24/2024 1 1 Reason Comments Internal Referrals/resources Covid recov er clinic referral Reason Comments Patient Question Reason Comments Patient Update Reason Comments Post Op Reason Comments New Patient Evaluation H/O OK, CAD, LBB Specialty Diagnoses / Procedures Referred By Chata t Referred To Contact Cardiology Diagnoses Hx of acute myocardial infarction Procedures CONSULT TO CARDIOLOGY OFFICE/OUTPATIENT [facility] 60-74 MINUTES Duncan Craven MD [address] [place] [address] Referral ID Status Reason Start Date Expiration Date V isits Requested Visits Authorized [id number] Closed PCP Requested Referral 03/25/2023 03/24/2024 1 1 Reason Onset Date Comments Refill Request 06/30/2023 Reason Comments Viral Syndrome Sxs started 2 yrs ag o pt has been coughing up phlegm, has been incarcerated does not feel like he was taken care of in there, Pt stated Also pt stated he needs a antibiotic. Stomach abcess Pt stated he is get ting septic around his stomach pt noticed it a few days ago. Reason Comments Appointment NO SHOW Reason Comments Follow Up Reason Comments Consult Sleep apnea Reason Comments New Reason Comments F/U 6 months 2nd Attempt Reason Onset Date Comments Refill Request 08/11/2023 proventil HFA Reason Comments Cough Chest congestion x2 weeks Reason Onset Date Comments Blood Sugar Problem 09/03/2023 Reason Comments Referral Information Multiple Consults Reason Comments ER F/U Blood in urine DM co ncerns Reason Comments Diabetes Reason Comments Depression Anxiety Specialty Diagnoses / Procedures Referred By Contac t Referred To Contact Diagnoses Bipolar 1 disorder (HCC) Procedures CONSULT TO PSYCHIATRY OFFICE/OUTPATIENT [facility] MDM 60-74 MINUTES Duncan Craven MD [address] [place] [address] Referral ID Status Reason Start Date Expiration Date Visits Requested Visits Authorized [id number] Pending Review PCP Requested Referral 3 09/09/2024 1 1 Reason Comments Radiology US Specialty Diagnoses / Procedures Referred By Contac t Referred To Contact US IMAGING Diagnoses Posterior auricular lymphadenopathy Procedures US HEAD/NECK SOFT TISSUE OTHER US SOFT TISSUE HEAD & NECK REAL TIME IMGE DOCM Duncan Craven MD [address] [place] [address] [place] [address] Referral ID Status Reason Start Date Expiration Date V isits Requested Visits Authorized [id number] Closed Auto-Generate d Referral 10/20/2023 11/18/2024 1 1 Reason Onset Date Comments Population Health Navigation Outreach 11/12/2023 [facility] Annual Wellness Visit Reason Onset Date Comments Refill Request 11/19/2023 trulicity Reason Onset Date Comments Refill Request 12/27/2023 Albuterol trulic ity Reason Onset Date Comments Refill Request 12/27/2023 Insulin needles Reason Onset Date Comments Refill Request 12/27/2023 needles Reason Onset Date Comments Refill Request 12/31/2023 multiple Reason Comments Depression Anxiety Follow Up Reason Comments Follow Up Medication Follow-up Reason Comments Forms Disability Reason Comments New Reason Comments Orders AG [facility] referral cont act/appt Reason Comments Results Reason Comments Orders AG [facility] order contact /ltr Reason Comments Appointment Reason Comments Heart Failure Reason Onset Date Comments Refill Request 04/18/2024 Reason Onset Date Comments Transition Of Care 04/18/2024 [facility] Pharmacy- Hospital discharge 04/15/24 Reason Comments CHF First OV/needs educ Reason Onset Date Comments Transition Of Care 04/26/2024 [facility] 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 Reason Onset Date Comments Transition Of Care 05/03/2024 [facility] follow up call Reason Onset Date Comments Transition Of Care 05/10/2024 [facility] follow up call Reason Comments CHF Follow Up Reason Comments Cardiac Rehab Pt [facility] Reason Onset Date Comments Transition Of Care 05/25/2024 TCM Follow up call Reason Onset Date Comments Transition Of Care 06/07/2024 [facility] Follow up call Reason Onset Date Comments Refill Request 07/07/2024 Reason Onset Date Comments Refill Request 07/07/2024 rosuvastatin Reason Onset Date Comments Refill Request 07/07/2024 Trulicity Reason Onset Date Comments Refill Request 07/07/2024 multiple Reason Onset Date Comments Transition Of Care 07/14/2024 [facility] follow up call Reason Comments Refill Request Reason Comments Returning Patient's Call Reason Onset Date Comments Refill Request 07/25/2024 Reason Comments Medication Problem Insulin froze Reason Comments No Show No show 1st Reason Comments Patient Update Care star requesting information Reason Onset Date Comments Refill Request 10/11/2024 Reason Comments Patient Update Need release of Lui rds form completed Reason Onset Date Comments Population Health Navigation Outreach 10/12/2024 [employer] Attributed Member- Chart Review Reason Comments Referral Request Reason Comments Referral Request Cardiology Reason Comments Patient Update Faxed Diagnosis veri fication letter Reason Comments Other C/o cough SOB elevat ed BP Reason Comments New Patient Lipoma of Neck Specialty Diagnoses / Procedures Referred By Contac t Referred To Contact General Surgery Diagnoses Lipoma of neck Procedures CONSULT TO GENERAL SURGERY OFFICE/OUTPATIENT NEW HIGH MDM 60 MINUTES Duncan Craven MD 1 [place] [address] Referral ID Status Reason Start Date Expiration Date V isits Requested Visits Authorized [id number] Closed PCP Requested Referral 10/13/2024 10/13/2025 1 1 Reason Comments Referral Information Cardiology Reason Comments Radiology CT Specialty Diagnoses / Procedures Referred By Contac t Referred To Contact CT IMAGING Diagnoses Neck mass Procedures CT NECK SOFT TISSUE W IVCON CT SOFT TISSUE NECK W/CONTRAST MATERIAL Inder Bruce MD [address] [address] Phone: tel: fax: [place] [address] Referral ID Status Reason Start Date Expiration Date V isits Requested Visits Authorized [id number] Closed Auto-Generate d Referral 10/18/2024 11/17/2025 1 1 Reason Comments Establish Care Reason Onset Date Comments Results 11/02/2024 Reason Comments Established Patient Follow up Neck CT Reason Comments Neck Mass Difficulty breathing Specialty Diagnoses / Procedures Referred By Contac t Referred To Contact Ent - Otolaryngology Diagnoses Neck mass Procedures CONSULT TO ENT OFFICE/OUTPATIENT [facility] 60 MINUTES Inder Bruce MD [address] [facility] [address] [place] [address] Phone: tel: fax: Tatyana Cardoza DO [address] [place] [address] Phone: tel: fax: Referral ID Status Reason Start Date Expiration Date V isits Requested Visits Authorized [id number] Closed PCP Requested Referral 11/07/2024 11/07/2025 1 1 Reason Comments needs CORE BIOPSY Reason Onset Date Comments Population Health Navigation Outreach 11/21/2024 [employer] Attributed Member- Needs 2024 Medicare Wellness Appointment Scheduled Reason Onset Date Comments Refill Request 11/24/2024 Reason Comments Follow Up Neck mass Reason Onset Date Comments Population Health Navigation Outreach 12/21/2024 [employer] Work[employer] [place] Reason Comments Appointment Set appt for 01/27 Reason Onset Date Comments Refill Request 01/16/2025 mirtazapine (REM ALICIA) 15 mg tablettraZODone (DESYREL) 100 mg tablet Reason Onset Date Comments ACM NAYA RN 01/17/2025 Chart review per payor request. Reason Comments Shortness of Breath Pt states he had pne umonia recently and finished his antibiotics. Pt also reports BLE edema and is supposed to be on a water pill but has not been taking them. Pt also believes he has cellulitis Specialty Diagnoses / Procedures Referred By Contac t Referred To Contact Diagnoses Localized swelling of both lower legs Acute congestive heart failure, unspecified heart failure type (HCC) Procedures . Luh Wells MD [address] [place] [address] Phone: tel: fax: [facility] PCU [address] [place] [address] Phone: tel: Referral ID Status Reason Start Date Expiration Date Visits Re quested Visits Authorized [id number] 1 1 Reason Comments Hospital F/U Reason Onset Date Comments Other 01/18/2025 HFdEF Reason Comments Depression Follow Up Anxiety Reason Comments Appointment Appointment/Xray Rem miguel ángel for 02/22/2025 Reason Onset Date Comments Refill Request 03/01/2025 Reason Comments Established Patient Reason Comments Orders Testosterone testing Care Teams (unrecognized sec tion and content) Family And Consumer Sciences Professor Relationship Specialty Start Date End Date Duncan Craven MD 1 [place], [place] [id number] PCP - General Internal Medicine 04/09/23 Gavin Betancur DO 1 [facility] [address] [place], [place] [id number] PCP Resident 04/09/23 Family And Consumer Sciences Professor Relationship Specialty Start Date End Date Duncan Craven MD 1 [place], [place] [id number] PCP - General Internal Medicine 04/09/23 Gavin Betancur DO 1 [facility] [address] [place], [place] [id number] PCP Resident 04/09/23 Family And Consumer Sciences Professor Relationship Specialty Start Date End Date Duncan Craven MD 1 [place], [place] [id number] PCP - General Internal Medicine 04/09/23 Gavin Betancur DO 1 [facility] [address] [place], [place] [id number] PCP Resident 04/09/23 Family And Consumer Sciences Professor Relationship Specialty Start Date End Date Duncan Craven MD 1 [place], [place] [id number] PCP - General Internal Medicine 04/09/23 Gavin Betancur DO [address] [facility] [place], [place] [id number] PCP Resident 04/09/23 Family And Consumer Sciences Professor Relationship Specialty Start Date End Date Duncan Craven MD 1 [place], [place] [id number] PCP - General Internal Medicine 04/09/23 Gavin Betancur DO [address] [place] [address] PCP Resident 04/09/23 Family And Consumer Sciences Professor Relationship Specialty Start Date End Date Duncan Craven MD 1 [place] [address] PCP - General Internal Medicine 04/09/23 Gavin Betancur DO [address] [place] [address] PCP Resident 04/09/23 Family And Consumer Sciences Professor Relationship Specialty Start Date End Date Duncan Craven MD 1 [place] [address] PCP - General Internal Medicine 04/09/23 Gavin Betancur DO [address] [place] [address] PCP Resident 04/09/23 Family And Consumer Sciences Professor Relationship Specialty Start Date End Date Duncan Craven MD 1 [place] [address] PCP - General Internal Medicine 04/09/23 Gavni Betancur DO [address] [place], [place] [address] PCP Resident 04/09/23 Family And Consumer Sciences Professor Relationship Specialty Start Date End Date Duncan Craven MD 1 [place], [place] [id number] PCP - General Internal Medicine 04/09/23 Gavin Betancur DO [address] [place], [place] [address] PCP Resident 04/09/23 Family And Consumer Sciences Professor Relationship Specialty Start Date End Date Duncan Craven MD 1 [place], [place] [id number] PCP - General Internal Medicine 04/09/23 Gavin Betancur DO [address] [place], [place] [id number] PCP Resident 04/09/23 Family And Consumer Sciences Professor Relationship Specialty Start Date End Date Duncan Craven MD 1 [place], [place] [id number] PCP - General Internal Medicine 04/09/23 Gavin Betancur DO [address] [place], [place] [address] PCP Resident 04/09/23 Family And Consumer Sciences Professor Relationship Specialty Start Date End Date Duncan Craven MD 1 [place], [place] [id number] PCP - General Internal Medicine 04/09/23 Gavin Betancur DO [address] [place], [place] [address] PCP Resident 04/09/23 Family And Consumer Sciences Professor Relationship Specialty Start Date End Date Duncan Craven MD 1 [place], [place] [id number] PCP - General Internal Medicine 04/09/23 Gavin Betancur DO [address] [place], [place] [address] PCP Resident 04/09/23 Family And Consumer Sciences Professor Relationship Specialty Start Date End Date Duncan Craven MD 1 [place], [place] [id number] PCP - General Internal Medicine 04/09/23 Gavin Betancur DO 1 [facility] [address] [place], [place] [address] PCP Resident 04/09/23 Family And Consumer Sciences Professor Relationship Specialty Start Date End Date Duncan Craven MD 1 [place], [place] [address]56[address]307 PCP - General Internal Medicine 04/09/23 Gavin Betancur DO [address] [address] PCP Resident 04/09/23 Family And Consumer Sciences Professor Relationship Specialty Start Date End Date Duncan Craven MD 1 [place], [place] 17551307 PCP - General Internal Medicine 04/09/23 Gavin Betancur DO 1 [facility] [address] [id number] PCP Resident 04/09/23 Family And Consumer Sciences Professor Relationship Specialty Start Date End Date Duncan Craven MD 1 [place], [place] [id number] PCP - General Internal Medicine 04/09/23 Gavin Betancur DO [address] [place], [place] [address] PCP Resident 04/09/23 Family And Consumer Sciences Professor Relationship Specialty Start Date End Date Duncan Craven MD 1 [place], [place] 23520307 PCP - General Internal Medicine 04/09/23 Gavin Betancur DO [address] [facility] [place], [place] [address] PCP Resident 04/09/23 Family And Consumer Sciences Professor Relationship Specialty Start Date End Date Duncan Craven MD 1 [place], [place] 31652307 PCP - General Internal Medicine 04/09/23 Gavin Betancur DO 1 [facility] [address] [place], [place] 65736307 PCP Resident 04/09/23 Family And Consumer Sciences Professor Relationship Specialty Start Date End Date Duncan Craven MD 1 [place], [place] [id number] PCP - General Internal Medicine 04/09/23 Gavin Betancur DO [address] [place], [place] 587[address] PCP Resident 04/09/23 Family And Consumer Sciences Professor Relationship Specialty Start Date End Date Duncan Craven MD 1 [place], [place] 2332[address]7 PCP - General Internal Medicine 04/09/23 Gavin Betancur DO [address] [place] [address] PCP Resident 04/09/23 Family And Consumer Sciences Professor Relationship Specialty Start Date End Date Duncan Craven MD 1 [place], [place] [id number] PCP - General Internal Medicine 04/09/23 Gavin Betancur DO [address] [place] [address] PCP Resident 04/09/23 Family And Consumer Sciences Professor Relationship Specialty Start Date End Date Duncan Craven MD 1 [place] [address] PCP - General Internal Medicine 04/09/23 Gavin Betancur DO [address] [place] [address] PCP Resident 04/09/23 Family And Consumer Sciences Professor Relationship Specialty Start Date End Date Duncan Craven MD 1 [place] [address] PCP - General Internal Medicine 04/09/23 Gavin Betancur DO [address] [place] [address] PCP Resident 04/09/23 Family And Consumer Sciences Professor Relationship Specialty Start Date End Date Duncan Craven MD 1 [place] [address] PCP - General Internal Medicine 04/09/23 Gavin Betancur DO [address] [place], [place] [address] PCP Resident 04/09/23 Family And Consumer Sciences Professor Relationship Specialty Start Date End Date Duncan Craven MD 1 [place], [place] 51342307 PCP - General Internal Medicine 04/09/23 Gavin Betancur DO [address] [place], [place] [address] PCP Resident 04/09/23 Family And Consumer Sciences Professor Relationship Specialty Start Date End Date Duncan Craven MD 1 [place], [place] [id number] PCP - General Internal Medicine 04/09/23 Gavin Betancur DO [address] [place] [address] PCP Resident 04/09/23 Family And Consumer Sciences Professor Relationship Specialty Start Date End Date Duncan Craven MD 1 [place], [place] [id number] PCP - General Internal Medicine 04/09/23 Gavin Betancur DO [address] [place] [address] PCP Resident 04/09/23 Family And Consumer Sciences Professor Relationship Specialty Start Date End Date Duncan Craven MD 1 [place] [address] PCP - General Internal Medicine 04/09/23 Gavin Betancur DO 1 [facility] [address] [place] [address] PCP Resident 04/09/23 Family And Consumer Sciences Professor Relationship Specialty Start Date End Date Duncan Craven MD 1 [place], [place] 4675230[address] PCP - General Internal Medicine 04/09/23 Gavin Betancur DO 1 [facility] [address] [place], [place] 64[address] PCP Resident 04/09/23 Family And Consumer Sciences Professor Relationship Specialty Start Date End Date Duncan Craven MD 1 [place] [address] PCP - General Internal Medicine 04/09/23 Gavin Betancur DO 1 [facility] [address] [place], [place] [address] PCP Resident 04/09/23 Family And Consumer Sciences Professor Relationship Specialty Start Date End Date Duncan Craven MD 1 [place], [place] [address]2826307 PCP - General Internal Medicine 04/09/23 Gavin Betancur DO [address] [id number] PCP Resident 04/09/23 Homa Perdue, lawnmower repair mechanic Cadd Manager 04/18/24 Logan Cameron [facility] Transitional Care Pharmacist Pharmacy 04/18/24 05/19/24 Family And Consumer Sciences Professor Relationship Specialty Start Date End Date Duncan Craven MD 1 [place], [place] [id number] PCP - General Internal Medicine 04/09/23 Gavin Betancur DO 1 [facility] [address] [place], [place] 83951307 PCP Resident 04/09/23 Homa Perdue, lawnmower repair mechanic Cadd Manager 04/18/24 [facility] 04/18/24 05/19/24 Family And Consumer Sciences Professor Relationship Specialty Start Date End Date Duncan Craven MD 1 [place], [place] [id number] PCP - General Internal Medicine 04/09/23 Gavin Betancur DO 1 [facility] [address] [place], [place] [address] PCP Resident 04/09/23 Homa Perdue, lawnmower repair mechanic Cadd Manager 04/18/24 04/19/24 [facility] 04/18/24 05/19/24 Denise Coronado, RN [address] [place], [place] [id number] Primary Care Cadd Manager 04/19/24 Family And Consumer Sciences Professor Relationship Specialty Start Date End Date Duncan Craven MD 1 [place], [place] 13276307 PCP - General Internal Medicine 04/09/23 Gavin Betancur DO 1 [facility] [address] [place], [place] [address]86[address] PCP Resident 04/09/23 Homa Perdue, lawnmower repair mechanic Cadd Manager 04/18/24 04/19/24 Logan Cameron [facility] Transitional Care Pharmacist Pharmacy 04/18/24 05/19/24 Denise Coronado, RN [address] [place], [place] [id number] Primary Care Cadd Manager 04/19/24 Family And Consumer Sciences Professor Relationship Specialty Start Date End Date Duncan Craven MD 1 [place] [address] PCP - General Internal Medicine 04/09/23 Gavin Betancur DO [address] [facility] [address] [place], [place] [address] PCP Resident 04/09/23 Homa Perdue RN Primary Care Cadd Manager 04/18/24 04/19/24 [facility] 04/18/24 05/19/24 Denise Coronado, RN [address] [place], [place] [id number] Primary Care Cadd Manager 04/19/24 Family And Consumer Sciences Professor Relationship Specialty Start Date End Date Duncan Craven MD 1 [place] [address] PCP - General Internal Medicine 04/09/23 Gavin Betancur DO [address] [facility] [address] [place] [address] PCP Resident 04/09/23 Logan Cameron [facility] Transitional Care Pharmacist Pharmacy 04/18/24 05/19/24 Denise Coronado, RN [address] [place], [place] [address] Primary Care Cadd Manager 04/19/24 Family And Consumer Sciences Professor Relationship Specialty Start Date End Date Duncan Craven MD 1 [place] [address] PCP - General Internal Medicine 04/09/23 Gavin Betancur DO [address] [facility] [address] [place] [address] PCP Resident 04/09/23 Logan aCmeron [facility] Transitional Care Pharmacist Pharmacy 04/18/24 05/19/24 Denise Coronado RN [address] [place], [place] [id number] Primary Care Cadd Manager 04/19/24 Family And Consumer Sciences Professor Relationship Specialty Start Date End Date Duncan Craven MD 1 [place] [address] PCP - General Internal Medicine 04/09/23 Gavin Betancur DO [address] [address] PCP Resident 04/09/23 Logan Cameron [facility] Transitional Care Pharmacist Pharmacy 04/18/24 05/19/24 Denise Coronado RN [address] [place], [place] [id number] Primary Care Cadd Manager 04/19/24 Family And Consumer Sciences Professor Relationship Specialty Start Date End Date Duncan Craven MD 1 [place] [address] PCP - General Internal Medicine 04/09/23 Gavin Betancur DO [address] [id number] PCP Resident 04/09/23 Logan Cameron [facility] Transitional Care Pharmacist Pharmacy 04/18/24 05/19/24 Denise Coronado RN [address] [place], [place] 601[address] Primary Care Cadd Manager 04/19/24 Family And Consumer Sciences Professor Relationship Specialty Start Date End Date Duncan Craven MD 1 [place], [place] 72057307 PCP - General Internal Medicine 04/09/23 Gavin Betancur DO [address] [place], [place] [address]13307 PCP Resident 04/09/23 [facility] 04/18/24 05/19/24 Denise Coronado RN [address] [place], [place] [id number] Primary Care Cadd Manager 04/19/24 Family And Consumer Sciences Professor Relationship Specialty Start Date End Date Duncan Craven MD 1 [place], [place] 62820307 PCP - General Internal Medicine 04/09/23 Gavin Betancur DO [address] [place], [place] 314[address]307 PCP Resident 04/09/23 [facility] 04/18/24 05/19/24 Denise Coronado RN [address] [place], [place] [id number] Primary Care Cadd Manager 04/19/24 Family And Consumer Sciences Professor Relationship Specialty Start Date End Date Duncan Craven MD 1 [place], [place] 92852307 PCP - General Internal Medicine 04/09/23 Gavin Betancur DO [address] [place], [place] 43772307 PCP Resident 04/09/23 [facility] 04/18/24 05/19/24 Denise Coronado RN [address] [place], [place] [id number] Primary Care Cadd Manager 04/19/24 Family And Consumer Sciences Professor Relationship Specialty Start Date End Date Duncan Craven MD 1 [place], [place] [id number] PCP - General Internal Medicine 04/09/23 Gavin Betancur DO [address] [place], [place] 88661307 PCP Resident 04/09/23 [facility] 04/18/24 05/19/24 Denise Coronado RN [address] [place], [place] [id number] Primary Care Cadd Manager 04/19/24 Family And Consumer Sciences Professor Relationship Specialty Start Date End Date Duncan Craven MD 1 [place], [place] [id number] PCP - General Internal Medicine 04/09/23 Gavin Betancur DO [address] [place], [place] 94386307 PCP Resident 04/09/23 [facility] 04/18/24 05/19/24 Family And Consumer Sciences Professor Relationship Specialty Start Date End Date Duncan Craven MD 1 [place], [place] 72609307 PCP - General Internal Medicine 04/09/23 Gavin Betancur DO [address] [place], [place] [address]307 PCP Resident 04/09/23 Homa Perdue, RN Primary Care Cadd Manager 04/18/24 04/19/24 Logan Cameron [facility] Transitional Care Pharmacist Pharmacy 04/18/24 05/19/24 Denise Coronado, RN [address] [place], [place] [id number] Primary Care Cadd Manager 04/19/24 05/15/24 Family And Consumer Sciences Professor Relationship Specialty Start Date End Date Duncan Craven MD 1 [place] [address] PCP - General Internal Medicine 04/09/23 Gavin Betancur DO [address] [place] [address] PCP Resident 04/09/23 Denise Coronado, RN [address] [place], [place] [id number] Primary Care Cadd Manager 04/19/24 07/20/24 Family And Consumer Sciences Professor Relationship Specialty Start Date End Date Duncan Craven MD 1 [place] [address] PCP - General Internal Medicine 04/09/23 Gavin Betancur DO [address] [place] [address] PCP Resident 04/09/23 Denise Coronado, RN [address] [place], [place] 87760224 Primary Care Cadd Manager 04/19/24 07/20/24 Family And Consumer Sciences Professor Relationship Specialty Start Date End Date Duncan Craven MD 1 [place] [address] PCP - General Internal Medicine 04/09/23 Gavin Betancur DO [address] [place] [address] PCP Resident 04/09/23 Denise Coronado, RN [address] [place] [address] Primary Care Cadd Manager 04/19/24 07/20/24 Family And Consumer Sciences Professor Relationship Specialty Start Date End Date Duncan Craven MD 1 [place] [address] PCP - General Internal Medicine 04/09/23 Gavin Betancur DO [address] [place] [address] PCP Resident 04/09/23 Denise Coronado RN [address] [place] [address] Primary Care Cadd Manager 04/19/24 07/20/24 Family And Consumer Sciences Professor Relationship Specialty Start Date End Date Duncan Craven MD 1 [place] [address] PCP - General Internal Medicine 04/09/23 Gavin Betancur DO [address] [place] [address] PCP Resident 04/09/23 Denise Coronado, RN [address] [place] [address] Primary Care Cadd Manager 04/19/24 07/20/24 Family And Consumer Sciences Professor Relationship Specialty Start Date End Date Duncan Craven MD 1 [place] [address] PCP - General Internal Medicine 04/09/23 Gavin Betancur DO [address] [address] PCP Resident 04/09/23 Denise Coronado, RN [address] [place] [address] Primary Care Cadd Manager 04/19/24 07/20/24 Family And Consumer Sciences Professor Relationship Specialty Start Date End Date Duncan Craven MD 1 [place] [address] PCP - General Internal Medicine 04/09/23 Gavin Betancur DO [address] [place] [address] PCP Resident 04/09/23 Denise Coronado RN [address] [place] [address] Primary Care Cadd Manager 04/19/24 07/20/24 Family And Consumer Sciences Professor Relationship Specialty Start Date End Date Duncan Craven MD 1 [place] [address] PCP - General Internal Medicine 04/09/23 Gavin Betancur DO [address] [place] [address] PCP Resident 04/09/23 Denise Coronado, RN [address] [place] [address] Primary Care Cadd Manager 04/19/24 07/20/24 Family And Consumer Sciences Professor Relationship Specialty Start Date End Date Duncan Craven MD 1 [place] [address] PCP - General Internal Medicine 04/09/23 Gavin Betancur DO [address] [place] [address] PCP Resident 04/09/23 Denise Coronado, RN [address] [place], [place] [id number] [phone] Primary Care Cadd Manager 04/19/24 07/20/24 Family And Consumer Sciences Professor Relationship Specialty Start Date End Date Duncan Craven MD 1 [place] [address] PCP - General Internal Medicine 04/09/23 Gavin Betancur, [address] [place] [address] PCP Resident 04/09/23 Denise Coronado RN [address] [place], [place] [id number] [phone] Primary Care Cadd Manager 04/19/24 07/14/24 Family And Consumer Sciences Professor Relationship Specialty Start Date End Date Duncan Craven MD 1 [place] [address] PCP - General Internal Medicine 04/09/23 Gavin Betancur, [address] [place] [address] PCP Resident 04/09/23 Denise Coronado, RN [address] [place] [address] Primary Care Cadd Manager 04/19/24 07/14/24 Family And Consumer Sciences Professor Relationship Specialty Start Date End Date Duncan Craven MD 1 [place] [address] PCP - General Internal Medicine 04/09/23 Gavin Betancur DO [address] [place] [address] [id number] PCP Resident 04/09/23 Family And Consumer Sciences Professor Relationship Specialty Start Date End Date Duncan Craven MD [address] [place], [place] 78575307 PCP - General Internal Medicine 04/09/23 Gavin Betancur DO [address] [place], [place] 18761307 PCP Resident 04/09/23 Team Status: Active Member Role Status Dates Patricia Primary Care Physician Family Provider Active CARLTON COLEY Primary Care Provider Active Team Status: Inactive Member Role Status Dates Bean Kwon MD Emergency Provider Active VIANCA VINCENT Primary Care Provider Active Family And Consumer Sciences Professor Relationship Specialty Start Date End Date Duncan Craven MD [address] [place], [place] 52777307 PCP - General Internal Medicine 04/09/23 Gavin Betancur DO [address] [place], [place] [address] PCP Resident 04/09/23 Family And Consumer Sciences Professor Relationship Specialty Start Date End Date Duncan Craven MD 1 [place], [place] [id number] PCP - General Internal Medicine 04/09/23 Gavin Betancur DO [address] [facility] [address] [place], [place] 12836307 PCP Resident 04/09/23 Family And Consumer Sciences Professor Relationship Specialty Start Date End Date Duncan Craven MD 1 [place], [place] 63638307 PCP - General Internal Medicine 04/09/23 Gavin Betancur DO [address] [place], [place] [address]307 PCP Resident 04/09/23 Family And Consumer Sciences Professor Relationship Specialty Start Date End Date Duncan Craven MD 1 [place], [place] [address]18307 PCP - General Internal Medicine 04/09/23 Gavin Betancur DO [address] [place], [place] 21297307 PCP Resident 04/09/23 Family And Consumer Sciences Professor Relationship Specialty Start Date End Date Duncan Craven MD 1 [place], [place] 96934307 PCP - General Internal Medicine 04/09/23 Gavin Betancur DO [address] [place], [place] [address]24307 PCP Resident 04/09/23 Family And Consumer Sciences Professor Relationship Specialty Start Date End Date Duncan Craven MD 1 [place], [place] [id number] PCP - General Internal Medicine 04/09/23 Gavin Betancur DO [address] [facility] [address] [place], [place] [id number] PCP Resident 04/09/23 Family And Consumer Sciences Professor Relationship Specialty Start Date End Date Duncan Craven MD 1 [place], [place] [id number] [phone] PCP - General Internal Medicine 04/09/23 Gavin Betancur DO 1 [facility] [address] [place], [place] [id number] PCP Resident 04/09/23 Family And Consumer Sciences Professor Relationship Specialty Start Date End Date Duncan Craven MD 1 [place], [place] [id number] PCP - General Internal Medicine 04/09/23 Gavin Betancur DO 1 [facility] [address] [place], [place] [id number] PCP Resident 04/09/23 Family And Consumer Sciences Professor Relationship Specialty Start Date End Date Duncan Craven MD 1 [place], [place] [id number] PCP - General Internal Medicine 04/09/23 Gavin Betancur DO 1 [facility] [address] [place] [address] PCP Resident 04/09/23 Family And Consumer Sciences Professor Relationship Specialty Start Date End Date Duncan Craven MD 1 [place] [address] PCP - General Internal Medicine 04/09/23 11/01/24 Gavin Betancur DO 1 [facility] [address] [place], [place] [phone] PCP Resident 04/09/23 11/01/24 Family [employer] Consumer Sciences Professor Relationship Specialty [place] [address] [place] [address] PCP - General Family Medicine 11/02/24 Family And Consumer Sciences Professor Relationship Specialty Start Date End Date Oscar Brizuela MD [address] [place] [address] PCP - General Family Medicine 11/02/24 Family And Consumer Sciences Professor Relationship Specialty Start Date End Date Oscar Brizuela MD [address] [place] [address] PCP - General Family Medicine 11/02/24 Family And Consumer Sciences Professor Relationship Specialty Start Date End Date Oscar Brizuela MD [address] [place] [address] PCP - General Family Medicine 11/02/24 Family And Consumer Sciences Professor Relationship Specialty Start Date End Date Oscar Brizuela MD [address] [place] [address] PCP - General Family Medicine 11/02/24 Family And Consumer Sciences Professor Relationship Specialty Start Date End Date Oscar Brizuela MD [address] [place] [address] PCP - General Family Medicine 11/02/24 Family And Consumer Sciences Professor Relationship Specialty Start Date End Date Oscar Brizuela MD [address] [place] [address] PCP - General Family Medicine 11/02/24 Negin Sandy APRN.ELEMENTARY SUPERVISOR [address] [place] [address] Avionics Electronics Technician Family Medicine 12/02/24 12/11/24 Jocelyn Denise APRN.ELEMENTARY SUPERVISOR [address] [place] [address] Avionics Electronics Technician Family Medicine 12/02/24 Family [employer] Consumer Sciences Professor Relationship Specialty Start Date End Date Oscar Brizuela MD [address] [place] [address] PCP - General Family Medicine 11/02/24 Podlogar, VINITA Banks.ELEMENTARY SUPERVISOR [address] [place] [address] Avionics Electronics Technician Family Medicine 12/02/24 Negin Sandy APRN.ELEMENTARY SUPERVISOR [address] [place] [address] Avionics Electronics Technician Family Medicine 12/12/24 Family [employer] Consumer Sciences Professor Relationship Specialty Start Date End Date Oscar Brizuela MD [address] [place] [address] PCP - General Family Medicine 11/02/24 PodlogarJocelyn APRN.ELEMENTARY SUPERVISOR [address] [place] [address] Avionics Electronics Technician Family Medicine 12/02/24 Negin Sandy APRN.ELEMENTARY SUPERVISOR [address] [place] [address] Avionics Electronics Technician Family Medicine 12/12/24 Family [employer] Consumer Sciences Professor Relationship Specialty Start Date End Date Oscar Brizuela MD [address] [place] [address] PCP - General Family Medicine 11/02/24 PodlogarJocelyn APRN.ELEMENTARY SUPERVISOR [address] [place] [address] Avionics Electronics Technician Family Medicine 12/02/24 Negin Sandy APRN.ELEMENTARY SUPERVISOR [address] [place], [place] [address] Avionics Electronics Technician Family [facility] 12/12/24 Team Status: Active Member Role Status Dates No Primary Care Physician Primary Care Provider Active Team Status: Inactive Member Role Status Dates Dr. Terry Gould MD Attending Provider Active Sta rt: August 31, 2024 End: August 31, 2024 Dr. Terry Gould MD Emergency Provider Active Sta rt: August 31, 2024 End: August 31, 2024 No Primary Care Physician Primary Care Provider Active Start: August 31, 2024 End: August 31, 2024 Team Status: Inactive Member Role Status Dates No Primary Care Physician Primary Care Provider Active Start: December 23, 2024 End: December 23, 2024 Dr. Salty Werner DO Emergency Provider Active Start: December 23, 2024 End: December 23, 2024 Team Status: Inactive Member Role Status Dates No Primary Care Physician Primary Care Provider Active Start: December 23, 2024 End: December 23, 2024 Dr. Salty Werner DO Attending Provider Active Start: December 23, 2024 End: December 23, 2024 Dr. Salty Werner DO Emergency Provider Active Start: December 23, 2024 End: December 23, 2024 Team Status: Inactive Member Role Status Dates No Primary Care Physician Primary Care Provider Active Start: January 05, 2025 End: January 06, 2025 Dr. Prieto Bey DO Emergency Provider Active Start : January 05, 2025 End: January 06, 2025 Family [employer] Consumer Sciences Professor Relationship Specialty Start Date End Date Oscar Brizuela MD [address] [place], [place] [id number] PCP - General Family Medicine 11/02/24 Jocelyn Denise APRN.ELEMENTARY SUPERVISOR [address] [place], [place] [id number] Avionics Electronics Technician [facility] 12/02/24 Negin Sandy APRN.ELEMENTARY SUPERVISOR [address] [place], [place] [id number] Avionics Electronics Technician Family Medicine 12/12/24 Family [employer] Consumer Sciences Professor Relationship Specialty Start Date End Date Oscar Brizuela MD [address] [place] [address] PCP - General Family Medicine 11/02/24 Podlogar, TREY BanksN.ELEMENTARY SUPERVISOR [address] [place] [address] Avionics Electronics Technician Family Medicine 12/02/24 Negin Sandy APRN.ELEMENTARY SUPERVISOR [address] [place] [address] [facility] 12/12/24 Family And Consumer Sciences Professor Relationship Specialty Start Date End Date Oscar Brizuela MD [address] [place] [address] PCP - General Family Medicine 11/02/24 Podlogar, Jocelyn CULTURAL CENTRE MANAGER.ELEMENTARY SUPERVISOR [address] [place] [address] Avionics Electronics Technician Family Medicine 12/02/24 Negin Sandy CULTURAL CENTRE MANAGER.ELEMENTARY SUPERVISOR [address] [place] [address] Avionics Electronics Technician Family Medicine 12/12/24 Family [employer] Consumer Sciences Professor Relationship Specialty Start Date End Date Oscar Brizuela MD [address] [place] [address] PCP - General Family Medicine 11/02/24 Podlogar, Jocelyn, CULTURAL CENTRE MANAGER.ELEMENTARY SUPERVISOR [address] [place] [address] Avionics Electronics Technician Family Medicine 12/02/24 Negin Sandy APRN.ELEMENTARY SUPERVISOR [address] [place], [place] [address] [facility] Medicine 12/12/24 Family And Consumer Sciences Professor Relationship Specialty Start Date End Date Oscar Brizuela MD [address] [place], [place] [address] PCP - General Family Medicine 11/02/24 Podlogar, VINITA Banks.ELEMENTARY SUPERVISOR [facility] [place] [address] [facility] Medicine 12/02/24 Negin Sandy APRN.ELEMENTARY SUPERVISOR [address] [place] [address] [facility] 12/12/24 Family [employer] Consumer Sciences Professor Relationship Specialty Start Date End Date Nikolai Nazario DO [address] [phone] PCP - General Internal Medicine 01/31/25 Podlogar, VINITA Banks.ELEMENTARY SUPERVISOR [facility] [place] [address] [facility] Medicine 12/02/24 Negin Sandy APRN.ELEMENTARY SUPERVISOR [address] [place] [id number] [facility] Medicine 12/12/24 Family [employer] Consumer Sciences Professor Relationship Specialty Start Date End Date Nikolai Nazario DO [address] [phone] PCP - General Internal Medicine 01/31/25 Podlogar, Jocelyn, CULTURAL CENTRE MANAGER.ELEMENTARY SUPERVISOR [facility] [place] [address] Avionics Electronics Technician Family Medicine 12/02/24 Negin Sandy APRN.ELEMENTARY SUPERVISOR [address] [place] [phone] Avionics Electronics Technician Family Medicine 12/12/24 Family [employer] Consumer Sciences Professor Relationship Specialty Start Date End Date Nikolai Nazario DO [address] [phone] PCP - General Internal Medicine 01/31/25 Podlogar, Jocelyn, CULTURAL CENTRE MANAGER.ELEMENTARY SUPERVISOR [address] [place] [address] Avionics Electronics Technician Family Medicine 12/02/24 Negin Sandy, CULTURAL CENTRE MANAGER.ELEMENTARY SUPERVISOR [address] [place] [phone] Avionics Electronics Technician Family Medicine 12/12/24 [employer] Consumer [employer] Professor Relationship Specialty Start Date End Date Nikolai Nazario DO [address] [address] PCP - General Internal Medicine 01/31/25 Podlogar, Jocelyn, CULTURAL CENTRE MANAGER.ELEMENTARY SUPERVISOR [facility] [place] [address] Avionics Electronics Technician Family Medicine 12/02/24 Negin Sandy APRN.ELEMENTARY SUPERVISOR [address] [place] [address] Avionics Electronics Technician Family Medicine 12/12/24 [employer] Consumer Sciences Professor Relationship Specialty Start Date End Date Nikolai Nazario DO [address] [address] PCP - General Internal Medicine 01/31/25 PodlogJocelyn denise APRN.ELEMENTARY SUPERVISOR [address] [place] [address] Avionics Electronics Technician Family Medicine 12/02/24 Negin Sandy APRN.ELEMENTARY SUPERVISOR [address] [place] [address] Avionics Electronics Technician Family Medicine 12/12/24 Family [employer] Consumer Sciences Professor Relationship Specialty Start Date End Date Nikolai Nazario DO [address] [address] PCP - General Internal Medicine 01/31/25 PodlogarJocelyn APRN.ELEMENTARY SUPERVISOR [facility] [place] [address] Avionics Electronics Technician Family Medicine 12/02/24 Negin Sandy APRN.ELEMENTARY SUPERVISOR [address] [place] [address] Avionics Electronics Technician Family Medicine 12/12/24 [employer] Consumer Sciences Professor Relationship Specialty Start Date End Date Nikolai Nazario DO [address] [address] PCP - General Internal Medicine 01/31/25 JojologJocelyn denise APRN.ELEMENTARY SUPERVISOR [address] [place] [address] Avionics Electronics Technician Family Medicine 12/02/24 Negin Sandy APRN.ELEMENTARY SUPERVISOR [facility] [place] [address] Avionics Electronics Technician Family Medicine 12/12/24 (unrecognized sect ion and content) No Status Records FoundNo Status Records FoundNo Status Records FoundNo Status Records FoundNo Status Records FoundNo Status Records FoundNo Status Records Found INFORMATION SOURCE (unrecogn ized section and content) DATE CREATED AUTHOR 04/10/2024 [facility] DATE CREATED AUTHOR AUTHOR'S ORGANIZ ATION 12/11/2024 [facility] DATE CREATED AUTHOR AUTHOR'S ORGANIZ ATION 01/13/2025 [facility] DATE CREATED AUTHOR AUTHOR'S ORGANIZ ATION 01/25/2025 [facility] DATE CREATED AUTHOR AUTHOR'S ORGANIZ ATION 01/29/2025 [facility] DATE CREATED AUTHOR AUTHOR'S ORGANIZ ATION 03/05/2025 [facility]ter DATE CREATED AUTHOR AUTHOR'S ORGANIZ ATION 03/06/2025 [facility] Goals (unrecognized section and content) Goals may be documented in a n alternate section Scheduled Active and Recently Administ ered Medications (unrecognized section and content) Medication Order 01/15/2025 01/16/2025 01/17/2025 aspirin EC tablet 81 mg 81 mg, Oral, Daily, First dose on 01/14/25 at 0800, Do not crush, chew, or split. 0826 (Given - Provider: Talita aMria RN) 0806 (Given - Provider: Talita Maria RN) 0800 (Canceled Entry - Provider: Automatic Discharge Provider - Comment: Automatically canceled at discontinue of medication order) bumetanide (Bumex) injection 1 mg (CANCELED) 1 mg, IntraVENous, Administer over 1 Minutes, Every 12 hours, First dose on 01/14/25 at 1800 0533 (Given - Provider: Faye Oscar RN)1746 (Given - Provider: Talita Maria RN) 0533 (Given - Provider: Yamini Masters RN) cetirizine (ZyrTEC) tablet 5 mg 5 mg, Oral, Daily, First dose on 01/14/25 at 0900, Substituted for Loratadine (CLARITIN). 08 (Given - Provider: Talita Maria, SUZAN) 805 (Given - Provider: Talita Maria, RN) 0900 (Canceled Entry - Provider: Automatic Discharge Provider - Comment: Automatically canceled at discontinue of medication order) dapagliflozin (Farxiga) tablet 10 mg 10 mg, Oral, Daily, First dose on Thu01/15/25 at 0900, Indications: Heart Failure 825 (Given - Provider: Talita Maria RN) 805 (Given - Provider: Talita Maria RN) 09 (Canceled Entry - Provider: Automatic Discharge Provider - Comment: Automatically canceled at discontinue of medication order) enoxaparin (Lovenox) syringe 40 mg 40 mg, SubCUTAneous, Every 24 hours, First dose on Thu01/13/25 at 2355, Indication of Use: Prophylaxis-DVT/PE 5 (Given - Provider: Yamini Masters RN)2038 (Given - Provider: Yamini Masters RN) 2025 (Given - Provider: Sunita Gutierrez, SUZAN) furosemide (Lasix) tablet 40 mg 40 mg, Oral, Daily, First dose on Thu01/17/25 at 0900 0900 (Canceled Entry - Provider: Automatic Discharge Provider - Comment: Automatically canceled at discontinue of medication order) insulin glargine (Lantus) injection 20 Units (CANCELED) 20 Units, SubCUTAneous, Nightly, First dose on Thu01/13/25 at 2355 2036 (Given - Provider: Yamiin Masters RN) insulin glargine (Lantus) injection 22 Units 22 Units, SubCUTAneous, Nightly, First dose (after last modification) on Thu01/16/25 at 2100 2019 (Given - Provider: Sunita Gutierrez, SUZAN) Insulin Lispro (Humalog) injection 0-12 Units(Linked Group 1) 0-12 Units, SubCUTAneous, 3 times daily with meals, First dose on Thu01/15/25 at 1200, Medium Dose Correction Algorithm Glucose: Dose: LESS than 150 No Insulin 150-199 2 Units 200-249 4 Units 250-299 6 Units 300-349 8 Units 350-400 10 Units Above 400 12 Units 1148 (Given - Provider: Talita Maria RN)1700 (Not Given - Provider: Talita Maria, RN - Reason: Order parameters not met) 0806 (Given - Provider: Talita Maria RN)1207 (Given - Provider: Talita Maria RN)1700 (Not Given - Provider: Talita Maria RN - Reason: Order parameters not met) 0800 (Canceled Entry - Provider: Automatic Discharge Provider - Comment: Automatically canceled at discontinue of medication order)1200 (Canceled Entry - Provider: Automatic Discharge Provider - Comment: Automatically canceled at discontinue of medication order) Insulin Lispro (Humalog) injection 0-12 Units(Linked Group 1) 0-12 Units, SubCUTAneous, Nightly, First dose on 01/15/25 at 2100, If eating or bolus tube feeding: Medium Dose Correction Algorithm Glucose: Dose: LESS than 150 No Insulin 150-199 2 Units 200-249 4 Units 250-299 6 Units 300-349 8 Units 350-400 10 Units Above 400 12 Units 2036 (Given - Provider: Yamini Masters RN) 2018 (Given - Provider: Sunita Gutierrez RN) Insulin Lispro (Humalog) injection 0-6 Units (CANCELED)(Linked Group 2) 0-6 Units, SubCUTAneous, 3 times daily with meals, First dose on 01/14/25 at 0800, Low Dose Correction Algorithm Glucose: Dose: LESS than 150 No Insulin 150-199 1 Unit 200-249 2 Units 250-299 3 Units 300-349 4 Units 350-400 5 Units Above 400 6 Units 0825 (Given - Provider: Talita Maria RN) ipratropium-albuterol (Duo-Neb) 0.5-2.5 mg/3 mL nebulizer solution 3 mL (CANCELED) 3 mL, Nebulization, 4 times daily, First dose on 01/14/25 at 0800 0725 (Given - Provider: Noel Dominguez RCP)1114 (Given - Provider: Noel Dominguez RCP) ipratropium-albuterol (Duo-Neb) 0.5-2.5 mg/3 mL nebulizer solution 3 mL 3 mL, Nebulization, 3 times daily, First dose (after last modification) on 4/27/25 at 2000 1925 (Given - Provider: Yana Arzola, PLEXIGLAS FORMER) 0751 (Given - Provider: Denise Nelson)1303 (Given - Provider: Denise Nelson)2116 (Not Given - Provider: Inez Cochran - Reason: Patient not available - Comment: pt care. Multiple attempts) 0800 (Canceled Entry - Provider: Automatic Discharge Provider - Comment: Automatically canceled at discontinue of medication order) levothyroxine (Synthroid, Levoxyl) tablet 125 mcg 125 mcg, Oral, Daily before breakfast, First dose on Thu01/14/25 at 0600, Tube feeding (TF) interaction, obtain physician order to manage, recommend holding TF for 30 minutes before and after dose. 0533 (Given - Provider: Faye Oscar RN) 0532 (Given - Provider: Yamini Masters, SUZAN) 0528 (Given - Provider: Sunita Gutierrez, SUZAN) metoprolol succinate XL (Toprol-XL) 24 hr tablet 25 mg (CANCELED) 25 mg, Oral, Daily, First dose on Thu01/14/25 at 0800, Do not crush or chew. 0827 (Given - Provider: Talita Maria RN) 0806 (Given - Provider: Talita Maria RN) metoprolol succinate XL (Toprol-XL) 24 hr tablet 50 mg 50 mg, Oral, Daily, First dose (after last modification) on Thu01/17/25 at 0800, Do not crush or chew. 0800 (Canceled Entry - Provider: Automatic Discharge Provider - Comment: Automatically canceled at discontinue of medication order) mirtazapine (Remeron) tablet 15 mg 15 mg, Oral, Nightly, First dose on Thu01/13/25 at 2355 2100 (Not Given - Provider: Yamini Masters RN - Reason: Other) 2100 (Not Given - Provider: Sunita Gutierrez, SUZAN - Reason: Patient/family refused) mometasone-formoterol (Dulera 200) 200-5 MCG/ACT inhaler 2 puff 2 puff, Inhalation, 2 times daily, First dose on Thu01/14/25 at 0800, Rinse mouth with water after use to reduce aftertaste and incidence of candidiasis. Do not swallow. 0826 (Given - Provider: Talita Maria RN)1999 (Given - Provider: Yamini Masters RN) 08 (Given - Provider: Talita Maria RN)2019 (Given - Provider: Sunita Gutierrez RN) 0800 (Canceled Entry - Provider: Automatic Discharge Provider - Comment: Automatically canceled at discontinue of medication order) nicotine (Nicoderm, Step 1) 21 MG/24HR patch 1 patch 1 patch, TransDERmal, Administer over 24 Hours, Daily, First dose on 01/14/25 at 2015, Apply new patch to nonhairy, clean, dry skin on the upper body or upper outer arm. Rotate patch sites. Notify Pharmacy if patient or provider prefers patch to be removed at bedtime and replaced in the morning. 0825 (Medication Applied - Provider: Talita Maria RN) 0806 (Medication Applied - Provider: Talita Maria RN) 0806 (Due: Medication Removed - Provider: Talita Maria RN)0900 (Canceled Entry - Provider: Automatic Discharge Provider - Comment: Automatically canceled at discontinue of medication order) potassium chloride CR (Klor-Con M10) ER tablet 20 mEq (COMPLETED) 20 mEq, Oral, Once, On 01/15/25 at 0930, For 1 dose, Best given with food and plenty of water to minimize gastric irritation. Do not crush or chew. 1049 (Given - Provider: Talita Maria RN) sacubitril-valsartan (Entresto) 24-26 MG per tablet 1 tablet (CANCELED) 1 tablet, Oral, 2 times daily, First dose on 01/14/25 at 1415, Contraindicated in combination with BECKY inhibitors. Ensure a minimum of 36 hours between any BECKY inhibitor dose and sacubitril-valsartan. 0006 (Given - Provider: Yamini Masters RN)0827 (Given - Provider: Talita Maria RN) sacubitril-valsartan (Entresto) 49-51 MG per tablet 1 tablet 1 tablet, Oral, 2 times daily, First dose on 01/15/25 at 2000, Contraindicated in combination with BECKY inhibitors. Ensure a minimum of 36 hours between any BECKY inhibitor dose and sacubitril-valsartan. 2037 (Given - Provider: Yamini Masters RN) 08 (Given - Provider: Talita Maria, SUZAN)2019 (Given - Provider: Sunita Gutierrez, SUZAN) 0900 (Canceled Entry - Provider: Automatic Discharge Provider - Comment: Automatically canceled at discontinue of medication order) spironolactone (Aldactone) tablet 25 mg 25 mg, Oral, Daily, First dose on 01/14/25 at 1415 0826 (Given - Provider: Talita Maria RN) 0807 (Given - Provider: Talita Maria RN) 0900 (Canceled Entry - Provider: Automatic Discharge Provider - Comment: Automatically canceled at discontinue of medication order) PRN Medication Order 01/15/2025 01/16/2025 01/17/2025 acetaminophen (Tylenol) suppository 650 mg(Linked Group 3) 650 mg, Rectal, Every 6 hours PRN, fever, For temp greater than 100.4 F (38 C), Starting on Thu01/13/25 at 2351, Administer if oral route cannot be used. Maximum dose of acetaminophen is 4000 mg from all sources in 24 hours. acetaminophen (Tylenol) tablet 650 mg(Linked Group 3) 650 mg, Oral, Every 6 hours PRN, mild pain (1-3), fever, For temp greater than 100.4 F (38 C), Starting on Thu01/13/25 at 2351, Maximum dose of acetaminophen is 4000 mg from all sources in 24 hours. dextrose 5 % infusion 100 mL/hr, IntraVENous, PRN, Blood sugar less than 70mg/dL, Starting on Thu01/13/25 at 2351, Start infusion following administration of dextrose 50% or glucagon. dextrose 50 % solution 12.5 g 12.5 g, IntraVENous, PRN, low blood sugar, Blood glucose less than 70 mg/dL and patient NOT ALERT or NPO., Starting on Thu01/13/25 at 2351, If patient does not respond within 5 minutes, repeat dose x1. Start D5W at 100 mL/hour until ordering provider can be reached. Repeat blood glucose in 15 minutes. If blood glucose is less than 70 mg/dL, repeat treatment and recheck blood glucose in 15 minutes x2. If using Glucostabilizer, dose as instructed per system. glucagon (human recombinant) injection 1 mg 1 mg, IntraMUSCular, PRN, low blood sugar, Blood glucose less than 70 mg/dL and patient NOT ALERT or NPO and does not have IV access., Starting on Thu01/13/25 at 2351, After administration, attempt intravenous access and start D5W at 100 mL/hr. Repeat blood glucose in 15 minutes x2 and notify provider. glucose oral gel 15 g 15 g, Oral, As needed, low blood sugar, Starting on Thu01/13/25 at 2351, If blood glucose less than 50 mg/dL and patient ALERT and NOT NPO, give 2 tubes glucose gel. If blood glucose less than 70 mg/dL and patient ALERT and NOT NPO, give 1 tube glucose gel. Repeat blood glucose in 15 minutes. If blood glucose is less than 70 mg/dL, repeat treatment and recheck blood glucose in 15 minutes x2 and notify provider. hydrALAZINE (Apresoline) injection 10 mg 10 mg, IntraVENous, Every 6 hours PRN, high blood pressure, If systolic blood pressure greater than 160, Starting on 01/14/25 at 0749 hydrocortisone 1 % ointment Topical, 2 times daily PRN, rash, irritation, abdomen wall, Starting on 01/15/25 at 1405 1521 (Given - Provider: Talita Maria RN) ipratropium-albuterol (Duo-Neb) 0.5-2.5 mg/3 mL nebulizer solution 3 mL 3 mL, Nebulization, Every 4 hours PRN, wheezing, Starting on 01/14/25 at 0754 melatonin tablet 3 mg 3 mg, Oral, Nightly PRN, sleep, Starting on 01/15/25 at 2119 2234 (Given - Provider: Yamini Masters, SUZAN) naloxone (Narcan) injection 0.4 mg 0.4 mg, IntraVENous, PRN, opioid reversal, Starting on 01/14/25 at 1648, For oversedation/difficult to rouse, pinpoint pupils, RR < 8; notify primary team extrusion die coordinator if used ondansetron (Zofran) injection 4 mg(Linked Group 4) 4 mg, IntraVENous, Every 6 hours PRN, nausea, vomiting, Starting on Thu01/13/25 at 2351, 1st Line. Give IV if patient is unable to take orally. If inadequate response within 60 minutes, proceed to next-line agent or contact provider if no further options ordered. 0046 (Given - Provider: Yamini Masters, SUZAN) ondansetron ODT (Zofran-ODT) disintegrating tablet 4 mg(Linked Group 4) 4 mg, Oral, Every 8 hours PRN, nausea, vomiting, Starting on Thu01/13/25 at 2351, 1st Line. If inadequate response within 60 minutes, proceed to next-line agent or contact provider if no further options ordered. Patient should allow tablet to dissolve on tongue. Do not remove from blister pack until just before administering. 0046 (See Alternative - Provider: Yamini Masters, SUZAN) oxyCODONE (Roxicodone) immediate release tablet 5 mg 5 mg, Oral, Every 8 hours PRN, moderate pain (4-6), severe pain (7-10), Starting on 01/14/25 at 1648 0533 (Given - Provider: Faye Oscar, SUZAN)1358 (Given - Provider: Talita Maria, SUZAN) 0044 (Given - Provider: Yamini Masters, SUZAN)1550 (Given - Provider: Blade Matthews, SUZAN)2342 (Given - Provider: Sunita Gutierrez RN) polyethylene glycol (PEG) 3350 (Miralax) packet 17 g 17 g, Oral, Daily PRN, constipation, Starting on Thu01/13/25 at 2351, 1st line for treatment of constipation - give scheduled if no bowel movement in past 24 hours. 1133 (Given - Provider: Talita Maria, SUZAN) tiZANidine (Zanaflex) tablet 4 mg 4 mg, Oral, Every 6 hours PRN, muscle spasms, Starting on Thu01/13/25 at 2353 2349 (Given - Provider: Yamini Masters, SUZAN) Linked Groups Order Group 1: Insulin Lispro (Humalog) injection 0-12 UnitsJump to med 0-12 Units, SubCUTAneous, 3 times daily with meals, First dose on Thu01/15/25 at 1200, Medium Dose Correction Algorithm Glucose: Dose: LESS than 150 No Insulin 150-199 2 Units 200-249 4 Units 250-299 6 Units 300-349 8 Units 350-400 10 Units Above 400 12 Units And Insulin Lispro (Humalog) injection 0-12 UnitsJump to med 0-12 Units, SubCUTAneous, Nightly, First dose on Thu01/15/25 at 2100, If eating or bolus tube feeding: Medium Dose Correction Algorithm Glucose: Dose: LESS than 150 No Insulin 150-199 2 Units 200-249 4 Units 250-299 6 Units 300-349 8 Units 350- 400 10 Units Above 400 12 Units Group 2: Insulin Lispro (Humalog) injection 0-6 Units (CANCELED)Jump to med 0-6 Units, SubCUTAneous, 3 times daily with meals, First dose on Thu01/14/25 at 0800, Low Dose Correction Algorithm Glucose: Dose: LESS than 150 No Insulin 150- 199 1 Unit 200-249 2 Units 250-299 3 Units 300-349 4 Units 350-400 5 Units Above 400 6 Units And Insulin Lispro (Humalog) injection 0-6 Units (CANCELED) 0-6 Units, SubCUTAneous, Nightly, First dose on Thu01/13/25 at 2355, If eating or bolus tube feeding: Low Dose Correction Algorithm Glucose: Dose: LESS than 150 No Insulin 150-199 1 Unit 200-249 2 Units 250-299 3 Units 300-349 4 Units 350-400 5 Units Above 400 6 Units Group 3: acetaminophen (Tylenol) tablet 650 mgJump to med 650 mg, Oral, Every 6 hours PRN, mild pain (1-3), fever, For temp greater than 100.4 F (38 C), Starting on Thu01/13/25 at 2351, Maximum dose of acetaminophen is 4000 mg from all sources in 24 hours. Or acetaminophen (Tylenol) suppository 650 mgJump to med 650 mg, Rectal, Every 6 hours PRN, fever, For temp greater than 100.4 F (38 C), Starting on Thu01/13/25 at 2351, Administer if oral route cannot be used. Maximum dose of acetaminophen is 4000 mg from all sources in 24 hours. Group 4: ondansetron ODT (Zofran-ODT) disintegrating tablet 4 mgJump to med 4 mg, Oral, Every 8 hours PRN, nausea, vomiting, Starting on Thu01/13/25 at 2351, 1st Line. If inadequate response within 60 minutes, proceed to next-line agent or contact provider if no further options ordered. Patient should allow tablet to dissolve on tongue. Do not remove from blister pack until just before administering. Or ondansetron (Zofran) injection 4 mgJump to med 4 mg, IntraVENous, Every 6 hours PRN, nausea, vomiting, Starting on Thu01/13/25 at 2351, 1st Line. Give IV if patient is unable to take orally. If inadequate response within 60 minutes, proceed to next-line agent or contact provider if no further options ordered. FOR RECORDS PERTAINING TO PATIENTS WHO ARE OR HAVE BEEN ENROLLED IN A CHEMICAL DEPENDENCY/SUBSTANCEABUSE PROGRAM, SOME INFORMATION MAY BE OMITTED. This clinical summary was aggregated from multiple sources. Caution should be exercised in using it in the provision of clinical care. This summary normalizes information from multiple sources, and as a consequence, information in this document may materially change the coding, format and clinical context of patient data. In addition, data may be omitted in some cases. CLINICAL DECISIONS SHOULD BE BASED ON THE PRIMARY CLINICAL RECORDS. [facility]. provides no warranty or guarantee of the accuracy or completeness of information in this document.
--- NOTE | 2025-03-08 04:04 | EX.ED.UPPERE ---
HPI History of Present Illness Chief Complaint: Upper Extremity Injury Informant: patient Narrative Narrative: Patient is a 59-year-old [id number] male with history of ELBERT, CHF, hypertension, type 2 diabetes mellitus presenting with left wrist/forearm injury. Patient states he was at the [employer]und[employer] earlier with he accidentally karate chopped laundromat door with his left ulnar wrist/distal forearm. He states immediately had some pain but it was not terrible however as the night has gone on he is at increased pain. Anytime he tries to move his wrist he gets pain that shoots up into his hand specifically the 3rd through 5th fingers. He did not take any medication for his pain prior to arrival. Denies any numbness. States he is having hard time moving his hand and it feels swollen. No other complaints or concerns reported this time. Not on any blood thinners. No other injuries reported. [facility] Medical History Congestive heart failure (CHF) BMI greater than 40 Obstructive sleep apnea Hypertension Type 2 diabetes mellitus with insulin therapy Home Medications ?Medication ?Instructions ?Recorded ?Last Taken ?Type aspirin 325 mg tablet 325 mg PO DAILY@0800 10/15/14 Unknown History levothyroxine 125 mcg tablet 125 mcg PO DAILY 10/15/14 Unknown History metoprolol tartrate 50 mg tablet 50 mg PO DAILY 10/15/14 Unknown History doxycycline hyclate 100 mg capsule 100 mg PO BID ##28 01/12/17 Unknown Rx albuterol sulfate 90 mcg/actuation 2 puff inhalation Q4H PRN PRN 08/31/24 Unknown Rx aerosol inhaler (Ventolin HFA) Wheezing ##1 furosemide 20 mg tablet (Lasix) 20 mg PO DAILY 30 days #30 tabs 12/23/24 Unknown Rx nystatin 100,000 unit/mL oral 5 ml PO 4X/DAY 14 days #280 mL 12/23/24 Unknown Rx suspension diphenhydramine HCl 25 mg tablet 25 mg PO TID PRN itching #30 tabs 01/06/25 Unknown Rx (Benadryl Allergy) loratadine 10 mg tablet 10 mg PO DAILY #30 tabs 01/06/25 Unknown Rx Allergy/AdvReac Type Severity Reaction Status Date / Time Sulfa (Sulfonamide Allergy Swelling Verified 03/08/25 03:14 Antibiotics) sulfamethoxazole (From Allergy Swelling Verified 03/08/25 03:14 Bactrim) trimethoprim (From Bactrim) Allergy Swelling Verified 03/08/25 03:14 Social History household members: none Smoking Status: Current every day smoker tobacco type: cigarettes ROS ROS ED Constitutional Constitutional ED: Denies chills or fever(s) Musculoskeletal Musculoskeletal: Reports other Details: Left wrist/distal forearm pain Integumentary Denies Abrasions or rash Neurologic Neurologic: Denies paresthesias or weakness Hematologic/Lymphatic Hematologic/Lymphatic: Denies easy bleeding or easy bruising EXAM Physical Exam Const Vital Signs: 03/08/25 03:15 Temperature 97.6 F L Temperature Source Oral Pulse Rate 84 Respiratory Rate 18 Blood Pressure 161/108 H Blood Pressure Mean 125 Pulse Ox 94 Oxygen Delivery Method Room Air Positive well nourished and well developed General Appearance ED: well developed and NAD Chest Wall inspection of chest normal Resp normal respiratory effort Cardio regular rate and regular rhythm Cardio Narrative: 2+ radial pulses present Extremity Extremity Narrative: No obvious deformity of the left upper extremity. No pinpoint area of reproducibility of pain. Does have mild diffuse pain of the distal ulna. No tenderness to palpation or deformity over the 4th or 5th metacarpals. When he gets episodes of shooting pain it radiates in the ulnar nerve distribution. Has some slight difficulty fully abducting all of his fingers but is able to do all of the other intrinsic hand movements including making an okay sign, making a fist, crossing his fingers and abducting the fingers. Sensation intact in all dermatomes. No tenderness at the anatomical snuffbox. No tenderness with palpation with range of motion of the elbow. No short arc range of motion pain of the wrist. Neuro oriented x3, no focal motor deficits and no sensory deficits noted Sensorium / Orientation: alert Motor Exam: muscle tone normal throughout Psych mental status grossly normal Skin Lesions: no lesions Rashes: no rashes MDM MDM MDM Narrative Medical decision making narrative: Patient evaluated for worsening left wrist pain that radiates to the 3rd through 5th fingers after excellently striking his wrist/distal forearm on a laundromat machine door yesterday afternoon. Compartments are soft. Neurovascularly intact. Low suspicion for any acute neurovascular compromise. Upon arrival vital signs significant for mild hypertension but otherwise normal. Patient appears nontoxic in no acute distress. X-ray of the wrist reviewed by myself as well as radiology does not show any acute fracture but does show soft tissue edema and swelling. Patient will be given a volar splint. Discussed that he could have a neuropraxia or irritation of the ulnar nerve given the distribution of his pain. Will be given outpatient Ortho referral. Given dose of Motrin in the ER (denies any history of renal insufficiency). Counseled on taking [id number] medication including Tylenol and ibuprofen as needed for pain, RICE therapy. He verbalized agreement understand this plan. Discharged home in stable condition. Radiography Diagnostic Testing: Clinical Impression(s) from Imaging Studies Wrist X-Ray 03/08/25 03:30 IMPRESSION: Soft tissue edema and swelling. Reading [facility] [address] Discharge Plan Triage Chief Complaint: Upper Extremity Injury ED Provider: Maureen Gomez Dx/Rx/DC Orders Clinical Impression: Contusion of left wrist, initial encounter Instructions: ED Contusion, Upper Extremity Prescriptions: No Action aspirin 325 MG tablet 325 mg PO DAILY@0800 levothyroxine 125 MCG tablet 125 mcg PO DAILY metoprolol tartrate 50 MG tablet 50 mg PO DAILY doxycycline hyclate 100 MG capsule 100 mg PO BID Qty: 28 0RF nystatin 100,000 unit/mL suspension 5 ml PO 4X/DAY 14 Days Qty: 280 0RF Rx Instructions: Swish for 1 to 2 minutes then spit out medication furosemide [Lasix] 20 mg tablet 20 mg PO DAILY 30 Days Qty: 30 0RF albuterol sulfate [Ventolin HFA] 90 mcg/actuation HFA aerosol inhaler 2 puff inhalation Q4H PRN PRN (Reason: Wheezing) Qty: 1 0RF diphenhydramine HCl [Benadryl Allergy] 25 mg tablet 25 mg PO TID PRN (Reason: itching) Qty: 30 0RF loratadine 10 mg tablet 10 mg PO DAILY Qty: 30 0RF Primary Care Provider: Care Physician,No Primary Referrals: Amrit Hanna DO [Med Staff - Active Staff] - Care Physician,No Primary [Primary Care Provider] - Activity Restrictions/Additional Instructions: Ice and alternate ibuprofen and Tylenol as needed for pain. If the symptoms persist or are not improving please follow-up with orthopedics. You been given their information. Your x-ray did not show any broken bones. Print Language: Maori Disposition Disposition: Home, Self Care
[2025-03-08] MEDS: Ibuprofen 600 MG Tablet PO (04:27)
[2025-03-08 04:30] VITALS: BP 144/78; PULSE 69; RESP 16; TEMP 36.4; O2SAT 99
== END 2025-03-08 04:31 | disposition home or self-care (01) ==
PROVIDERS: Emergency Provider Emergency Medicine; Visit Provider Emergency Medicine
DX: S60.212A Contusion of left wrist, initial encounter (principal); E11.9 Type 2 diabetes mellitus without complications; Z79.4 Long term (current) use of insulin; F17.210 Nicotine dependence, cigarettes, uncomplicated; I10 Essential (primary) hypertension; G47.33 Obstructive sleep apnea (adult) (pediatric); W22.09XA Striking against other stationary object, initial encounter; Y93.E2 Activity, laundry; Y92.89 Other specified places as the place of occurrence of the external cause
CPT/HCPCS: 73110; 99282

== ENCOUNTER 2025-06-08 13:39 | Observation (INO) | payer MEDICARE, MEDICAID, SELFPAY ==
[2025-06-08] VITALS (12 sets, daily range): BP systolic 113–154; BP diastolic 57–104; PULSE 98–109; RESP 16–28; TEMP 36.6–36.8; O2SAT 93–98; BMI 44.5; BMI 42.4
--- NOTE | 2025-06-08 14:09 | EKG12_ITS ---
Test Reason : Blood Pressure : */* mmHG Vent. Rate : 100 BPM Atrial Rate : 100 BPM P-R Int : 216 ms QRS Dur : 146 ms QT Int : 370 ms P-R-T Axes : 20 25 177 degrees QTcB Int : 477 ms Sinus rhythm with 1st degree A-V block with Premature atrial complexes Left bundle branch block Abnormal ECG Confirmed by YOANA ALONSO, MARLENE ([id number]), photograph editor KIRAN NINA ([id number]) on 06/09/2025 10:44:10 AM Referred By: Confirmed By: MARLENE LEES MD
--- NOTE | 2025-06-08 14:10 | EX.ED.DYSGE1 ---
HPI History of Present Illness Chief Complaint: Alt LOC Informant: patient Onset/Context/Timing Onset: Today Timing: Continuous Current Severity: Moderate Maximum Severity: Moderate Narrative Narrative: 58-year-old male history of CHF, hypertension diabetes. Was found in the car with altered level of consciousness. Blood sugar was 121. Unable to get much other history from the patient had no idea on review of systems currently. He is confused. [facility] Medical History Congestive heart failure (CHF) BMI greater than 40 Obstructive sleep apnea Hypertension Type 2 diabetes mellitus with insulin therapy Home Medications ?Medication ?Instructions ?Recorded ?Last Taken ?Type aspirin 325 mg tablet 325 mg PO DAILY@0800 10/15/14 Unknown History levothyroxine 125 mcg tablet 125 mcg PO DAILY 10/15/14 Unknown History metoprolol tartrate 50 mg tablet 50 mg PO DAILY 10/15/14 Unknown History doxycycline hyclate 100 mg capsule 100 mg PO BID ##28 01/12/17 Unknown Rx albuterol sulfate 90 mcg/actuation 2 puff inhalation Q4H PRN PRN 08/31/24 Unknown Rx aerosol inhaler (Ventolin HFA) Wheezing ##1 furosemide 20 mg tablet (Lasix) 20 mg PO DAILY 30 days #30 tabs 12/23/24 Unknown Rx nystatin 100,000 unit/mL oral 5 ml PO 4X/DAY 14 days #280 mL 12/23/24 Unknown Rx suspension diphenhydramine HCl 25 mg tablet 25 mg PO TID PRN itching #30 tabs 01/06/25 Unknown Rx (Benadryl Allergy) loratadine 10 mg tablet 10 mg PO DAILY #30 tabs 01/06/25 Unknown Rx Allergy/AdvReac Type Severity Reaction Status Date / Time Sulfa (Sulfonamide Allergy Swelling Verified 03/08/25 03:14 Antibiotics) sulfamethoxazole (From Allergy Swelling Verified 03/08/25 03:14 Bactrim) trimethoprim (From Bactrim) Allergy Swelling Verified 03/08/25 03:14 Social History household members: none Smoking Status: Current every day smoker tobacco type: cigarettes ROS ROS ED ROS Narrative Unknown patient unable to give me any history. Review of Systems ROS Unobtainable: due to mental status EXAM Physical Exam Narrative Exam Narrative: 60-year-old male sitting upright in bed. Vital signs stable afebrile. Pulse ox 96% on room air no hypoxia. He is in no distress. He is having trouble answering questions. He seems confused. Maybe trouble speaking. He does not look septic or toxic. There is no family or friends with him. H EENT exam pupils round reactive light. No facial droop. Very limited speech. Oral mucosa moist and pink. No signs of traumaor scalp. Nontender no hematoma. Neck nontender no lymphadenopathy. No meningismus. Back nontender. Lungs clear to auscultation bilaterally. Heart tachycardic rate of 105 no murmur. Chest wall ribs nontender. Abdomen soft nontender. No peritoneal signs. Moving all 4 extremities. 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 Normal dorsi plantarflexion. Neurologically he is awake. His eyes are open. He is trying to follow commands. He seems confused. He has normal strength with no focal motor deficits. Very limited speech. Const Vital Signs: 06/08/25 13:40 06/08/25 13:45 06/08/25 14:42 Temperature 98.2 F 98.2 F Temperature Source Oral Oral Pulse Rate 100 106 H 99 Respiratory Rate 26 H 28 H 22 H Blood Pressure 152/104 H 152/100 H Blood Pressure Mean 120 117 Pulse Ox 96 97 98 Oxygen Delivery Method Room Air Room Air Oxygen Flow Rate (L/min) 06/08/25 15:00 06/08/25 16:00 06/08/25 17:00 Temperature Temperature Source Pulse Rate 98 100 101 H Respiratory Rate 18 18 18 Blood Pressure 119/75 136/96 H Blood Pressure Mean 89 109 Pulse Ox 93 95 95 Oxygen Delivery Method Nasal Cannula Nasal Cannula Oxygen Flow Rate (L/min) 2 Positive well nourished and well developed; Negative for cachectic, contractures or unkempt General Appearance ED: well developed; Negative for unkempt, cachectic, contractures, cyanotic, diaphoretic or pallor Nutritional Appearance: Negative for cachectic HEENT Reports moist mucous membranes Eyes PERRL and EOMs intact bilaterally Neck no lymphadenopathy, supple and no JVD Chest Wall inspection of chest normal and palpation of chest normal Resp normal respiratory effort and clear to auscultation bilaterally Cardio regular rhythm, S1 normal heart sound, S2 normal heart sound and no murmurs; Negative for regular rate Rate: tachycardic GI normal to inspection, nondistended, normoactive bowel sounds, non-tender, non-distended and no masses Auscultation: normoactive bowel sounds Palpation: soft; Negative for tender, guarding or rebound tenderness present Back/Spine no CVA tenderness General Back: Negative for CVA tenderness Cervical Spine: Negative for cervical spine tenderness Thoracic Spine / Upper Back: Negative for thoracic spinal tenderness or paraspinal muscle tenderness Lumbar Spine / Lower Back: Negative for lumbar spinal tenderness Extremity normal to inspection General Extremety ED: Negative for edema or tenderness General Extremity: Negative for edema Neuro No oriented x3 Neuro Narrative: Patient confused. Limited ability to speak and/or answer questions. Sensorium / Orientation: alert Motor Exam: strength 5/5 throughout Psych mental status grossly normal Appearance: Negative for unkempt Skin no rashes or lesions noted, no wounds and skin turgor normal General Skin Exam: elasticity normal; Negative for jaundice or pallor Lesions: No lesion noted Rashes: No rashes noted Trauma: Negative for abrasion Wounds: Negative for wounds noted MDM MDM MDM Narrative Medical decision making narrative: 60-year-old male altered level of consciousness. Differential would include stroke, bleed, brain mass, sepsis versus other etiologies. Repeat exams. Patient been sleeping here. He told the nurses that he was doing cocaine in his car. He had smoked it several days ago and used cocaine again today. He had used it for some time before the last several days. Also spoke to a friend that called about him said he was concerned but he did not know of any type of drug use. Exam really no significant change when patient is awoken his speech is abnormal more like dysarthria and slurred this. Will speak to the hospitalist about admitting him for possible further evaluation for stroke. History & Record Review Additional record(s) reviewed:: Prior inpatient record, Prior outpatient record, Prior ED visit and Prior labs Lab Data Attestation: I reviewed the patient's lab results. Lab results narrative: CBC unremarkable. White count of 10.8. H&H of 17 and 48. Platelets 256. Chemistries show a gap 19. BUN and creatinine 18 and 1.28. Glucose 107. Liver enzymes unremarkable. Urinalysis negative. No white or red cells. No bacteria. Urine tox is positive for cocaine and fentanyl. Alcohol is negative. CTA head and neck and CT brain shows no acute abnormality. Chest x-ray unremarkable. Labs: Laboratory Results - last 24 hr 06/08/25 06/08/25 06/08/25 14:14 14:14 14:36 WBC Cancelled Corrected WBC Cancelled RBC Cancelled Hgb Cancelled Hct Cancelled MCV Cancelled MCH Cancelled MCHC Cancelled RDW Std Deviation Cancelled RDW Coeff of Amanda Cancelled Plt Count Cancelled MPV Cancelled Immature Gran % (Auto) Cancelled Neut % (Auto) Cancelled Lymph % (Auto) Cancelled [place] % (Auto) Cancelled Eos % (Auto) Cancelled Baso % (Auto) Cancelled Absolute Neuts (auto) Cancelled Absolute Lymphs (auto) Cancelled Total Counted Cancelled Neutrophils % (Manual) Cancelled Band Neutrophils % Cancelled Lymphocytes % (Manual) Cancelled Monocytes % (Manual) Cancelled Eosinophils % (Manual) Cancelled Basophils % (Manual) Cancelled Metamyelocytes % Cancelled Myelocytes % Cancelled Promyelocytes % Cancelled Blast Cells % Cancelled Plasma Cell % (Manual) Cancelled Other Cells % Cancelled Nucleated RBC % Cancelled Nucleated RBCs/100 WBC Cancelled Differential Comment Cancelled Diff Path Review Cancelled Hypersegmented Neuts Cancelled Atypical Lymphocytes Cancelled Reactive Lymphocytes Cancelled Smudge Cells Cancelled Toxic Granulation Cancelled Toxic Vacuolation Cancelled Dohle Bodies Cancelled Naresh Rods Cancelled Platelet Estimate Cancelled Plt Morphology Comment Cancelled RBC Morphology Cancelled Cancelled Polychromasia Cancelled Hypochromasia Cancelled Basophilic Stippling Cancelled Anisocytosis Cancelled Microcytosis Cancelled Macrocytosis Cancelled Spherocytes Cancelled Sickle Cells Cancelled Target Cells Cancelled Tear Drop Cells Cancelled Ovalocytes Cancelled Stomatocytes Cancelled [place] Bodies Cancelled [place] Cells Cancelled Bite Cells Cancelled Crenated Cell Cancelled Acanthocytes (Spur) Cancelled Rouleaux Cancelled Schistocytes Cancelled Sodium 138 Potassium 3.5 Chloride 99 Carbon Dioxide 20.7 L Anion Gap 19 H BUN 18 Creatinine 1.28 H Estim Creat Clear Calc 77.20 Est GFR (MDRD) Non-Af 63 BUN/Creatinine Ratio 14.3 Glucose 107 H Lactic Acid 1.4 Calcium 9.6 Total Bilirubin 0.85 AST 36 ALT 24 Alkaline Phosphatase 50 Troponin T High Sens 19 Total Protein 7.3 Albumin 4.2 Globulin 3.1 Albumin/Globulin Ratio 1.3 Urine Color Yellow Urine Clarity Clear Urine pH 5.0 Ur Specific [place] 1.025 Urine Protein 500 H Urine Glucose (UA) Normal Urine Ketones 50 H Urine Occult Blood 25 H Urine Nitrite Negative Urine Bilirubin 1 H Urine Urobilinogen 1 H Ur Leukocyte Esterase Negative Urine RBC 0 SEEN Urine WBC 0 SEEN Ur Squamous Epith Cells 0 SEEN Urine Bacteria 0 SEEN Urine Mucus 0 SEEN Urine Opiates Screen NEGATIVE U Buprenorphine Qual NEGATIVE Ur Oxycodone Screen NEGATIVE Urine Methadone Screen NEGATIVE Urine Fentanyl Screen PRESUMPTIVE POSITIVE Ur Barbiturates Screen NEGATIVE Ur Phencyclidine Scrn NEGATIVE Ur Amphetamines Screen NEGATIVE U Benzodiazepines Scrn NEGATIVE Urine Cocaine Screen PRESUMPTIVE POSITIVE U Cannabinoids Screen NEGATIVE Ethyl Alcohol < 10.1 06/08/25 15:10 WBC 10.8 Corrected WBC RBC 5.19 Hgb 17.0 H Hct 48.2 MCV 92.9 MCH 32.8 H MCHC 35.3 RDW Std Deviation 41.3 RDW Coeff of Amanda 11.9 Plt Count 256 MPV 10.2 Immature Gran % (Auto) 0.400 Neut % (Auto) 59.3 Lymph % (Auto) 25.1 [place] % (Auto) 10.4 H Eos % (Auto) 4.7 Baso % (Auto) 0.1 Absolute Neuts (auto) 6.4 Absolute Lymphs (auto) 2.70 Total Counted Neutrophils % (Manual) Band Neutrophils % Lymphocytes % (Manual) Monocytes % (Manual) Eosinophils % (Manual) Basophils % (Manual) Metamyelocytes % Myelocytes % Promyelocytes % Blast Cells % Plasma Cell % (Manual) Other Cells % Nucleated RBC % 0 Nucleated RBCs/100 WBC Differential Comment Diff Path Review Hypersegmented Neuts Atypical Lymphocytes Reactive Lymphocytes Smudge Cells Toxic Granulation Toxic Vacuolation Dohle Bodies Naresh Rods Platelet Estimate Plt Morphology Comment RBC Morphology Polychromasia Hypochromasia Basophilic Stippling Anisocytosis Microcytosis Macrocytosis Spherocytes Sickle Cells Target Cells Tear Drop Cells Ovalocytes Stomatocytes [place] Bodies Jyoti Cells Bite Cells Crenated Cell Acanthocytes (Spur) Rouleaux Schistocytes Sodium Potassium Chloride Carbon Dioxide Anion Gap BUN Creatinine Estim Creat Clear Calc Est GFR (MDRD) Non-Af BUN/Creatinine Ratio Glucose Lactic Acid Calcium Total Bilirubin AST ALT Alkaline Phosphatase Troponin T High Sens Total Protein Albumin Globulin Albumin/Globulin Ratio Urine Color Urine Clarity Urine pH Ur Specific [place] Urine Protein Urine Glucose (UA) Urine Ketones Urine Occult Blood Urine Nitrite Urine Bilirubin Urine Urobilinogen Ur Leukocyte Esterase Urine RBC Urine WBC Ur Squamous Epith Cells Urine Bacteria Urine Mucus Urine Opiates Screen U Buprenorphine Qual Ur Oxycodone Screen Urine Methadone Screen Urine Fentanyl Screen Ur Barbiturates Screen Ur Phencyclidine Scrn Ur Amphetamines Screen U Benzodiazepines Scrn Urine Cocaine Screen U Cannabinoids Screen Ethyl Alcohol Radiography Chest X-Ray - ED: 2 View, Read by ED Physician, Read by Radiologist, Normal, Heart, Lungs, Mediastinum, Bony Structures, No Acute Disease and Chronic Changes Diagnostic Testing: Clinical Impression(s) from Imaging Studies Brain CT 06/08/25 15:30 IMPRESSION: No acute intracranial abnormality. Reading Location: [facility] Head/Neck CTA 06/08/25 15:30 IMPRESSION: 1. No hemodynamically significant stenosis within the head or neck. No evidence of intracranial aneurysm. 2. Enlarged left thyroid lobe with multiple calcifications. Reading Location: [facility] Chest X-Ray 06/08/25 15:40 IMPRESSION: Bibasilar atelectasis. No other acute cardiopulmonary abnormality. Reading Location: [facility] Chest x-ray, AP and lateral, interpreted by myself and radiologist shows atelectasis but no other acute abnormality. Normal cardiac silhouette. Normal mediastinum. Normal lung bee. Rhythm Strip Rhythm Strip: Sinus Rhythm Rate: 100 Ectopy: PAC(s) EKG Initial EKG: Attestation: I personally reviewed and interpreted this EKG as follows: Interpretation: Sinus Rhythm, No Acute Injury Pattern and LBBB Comments: Sinus rhythm rate of 100. First-degree AV block. Overall 216. PACs. Left bundle branch block. No prior available for comparison. Discharge Plan Dx/Rx/DC Orders Clinical Impression: Altered level of consciousness, Dysarthria, Cocaine use, History of diabetes mellitus, Sleep deprivation Disposition Disposition: Acute Care [facility]
--- NOTE | 2025-06-08 14:42 | ED.RN ---
while straight cathing pt, pt tells staff that he smoked a lot of cocaine and i haven't slept in [address] bower notified.
[2025-06-08 14:44] LABS: Mucous, Urine 0 SEEN /hpf (<or=2+); Red Blood Cells-Urine 0 SEEN /hpf (0-5); Squamous Epithelial Cells - UA 0 SEEN /hpf (0-5)
[2025-06-08] MEDS: 0.9% Normal Saline (1000mL) 1,000 ML 999 ML IV (14:44)
[2025-06-08 14:55] LABS: Color, Urine Yellow (Yellow); Glucose, Dipstick Normal (Normal); Ketone-Dipstick 50 mg/dl (Negative); Leukocyte Esterase-Dipstick Negative /ul (Negative); Nitrite-Dipstick Negative (Negative); Occult Blood-Urine 25 /ul (Negative); Protein-Dipstick 500 mg/dl (Negative); Specific Gravity, Urine 1.025 (1.002-1.030); Urine Bilirubin Dipstick 1 mg/dL (Negative)
[2025-06-08 14:57] LABS: Alcohol, Blood (Medical)-Serum < 10.1 mg/dL (<=10.0); Troponin T High Sensitivity 19 ng/L (<=22)
--- NOTE | 2025-06-08 15:16 | ED.RN ---
this rn in to redraw blood and notes that the pt o2 sats had decreased to 88% on room air while sleeping. 2L o2 via NC applied at this time and dr bower notified. no new orders from provider at this time.
[2025-06-08 15:22] LABS: AST(SGOT) 36 U/L (<=37); Alanine Aminotransfer ALT/SGPT 24 U/L (<=46); Albumin, Serum 4.2 g/dL (3.4-4.8); Alkaline Phosphatase 50 U/L (40-129); Anion Gap 19 (5-15); BUN 18 mg/dL (4-19); BUN/Creat Ratio 14.3 RATIO (10-20); Calcium,Total 9.6 mg/dL (7.6-11.0); Carbon Dioxide 20.7 mmol/L (21.0-32.0); Chloride 99 mmol/L (98-108); Estimated Creatinine Clearance 77.20 ml/min (50-250); Globulin 3.1 g/dL (2.2-4.2); Glucose 107 mg/dL (70-99); Potassium 3.5 mmol/L (3.3-5.1)
--- NOTE | 2025-06-08 15:30 | CT_ITS ---
PROCEDURE: CTA HEAD AND NECK W/ CONTRAST 06/08/2025 REASON FOR EXAM: ALOC. Found in car, alt LOC, only alert to self. TECHNIQUE: Procedure Code: [id number].HDNCK Modality: CT Procedure: CTA HEAD AND NECK W/ CONTRAST Axial CTA images of the head and neck performed with intravenous contrast. MIP reconstructed images were created and reviewed. Note: Per PQRS, the description of internal carotid artery percent stenosis, including 0 percent or normal exam, is based on [place] Symptomatic Carotid Endarterectomy Trial (NASCET) criteria. CONTRAST: Isovue 370 VOLUME: 100 mL One or more dose reduction techniques were used (e.g., Automated exposure control, adjustment of the mA and/or kV according to patient size, use of iterative reconstruction technique). RADIATION DOSE SUMMARY: CTDlvol: 24.91, 21.80 mGy DLP: 790.8 mGycm COMPARISON: None. FINDINGS: CTA HEAD: INTERNAL CAROTID ARTERIES No significant stenosis. No occlusion. No aneurysm. ANTERIOR CEREBRAL ARTERIES No significant stenosis. No occlusion. No aneurysm. MIDDLE CEREBRAL ARTERIES No significant stenosis. No occlusion. No aneurysm. POSTERIOR CEREBRAL ARTERIES No significant stenosis. No occlusion. No aneurysm. BASILAR ARTERY No significant stenosis. No occlusion. No aneurysm. VERTEBRAL ARTERIES No significant stenosis. No dissection or occlusion. VENOUS STRUCTURES Patent. BONES No acute osseous abnormality. CTA NECK: COMMON CAROTID ARTERIES No significant stenosis. No dissection or occlusion. INTERNAL CAROTID ARTERIES No stenosis by NASCET criteria. No dissection or occlusion. VERTEBRAL ARTERIES No significant stenosis. No dissection or occlusion. SOFT TISSUES Enlarged left thyroid lobe with calcifications and associated tracheal narrowing with rightward deviation. Left superior mediastinal lymph node measuring 1.7 x 1.9 cm. BONES No acute osseous abnormality. Degenerative changes of the spine. CT/CTA Head AND Neck W/ Contrast IMPRESSION: 1. No hemodynamically significant stenosis within the head or neck. No evidenc e of intracranial aneurysm. 2. Enlarged left thyroid lobe with multiple calcifications. Reading Location: [facility]
--- NOTE | 2025-06-08 15:30 | CT_ITS ---
PROCEDURE: BRAIN/HEAD WITHOUT CONTRAST 06/08/2025 REASON FOR EXAM: ALOC. Found in car, alt LOC, only alert to self. TECHNIQUE: Procedure Code: CTBR Modality: CT Procedure: BRAIN/HEAD WITHOUT CONTRAST Coronal and Sagittal reconstruction series were provided. One or more dose reduction techniques were used (e.g., Automated exposure control, adjustment of the mA and/or kV according to patient size, use of iterative reconstruction technique. RADIATION DOSE SUMMARY: CTDlvol: 44.99 mGy DLP: 830 mGycm FINDINGS: BRAIN: No acute intraparenchymal hemorrhage. No mass lesion. No CT evidence for acute territorial infarct. No midline shift or extra-axial collection. 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 VENTRICLES: No hydrocephalus. ORBITS: The orbits are unremarkable. SINUSES AND MASTOIDS: Small left maxillary sinus retention cyst/polyp, which is unchanged. Moderate ethmoid sinus mucosal thickening bilaterally, with mild interval worsening. The mastoid air cells are clear. SOFT TISSUES: No acute abnormality seen. BONES: No acute osseous abnormality seen. CT/Brain/Head without Contrast IMPRESSION: No acute intracranial abnormality. Reading Location: [id number]
[2025-06-08 15:39] LABS: Barbiturate Urine NEGATIVE (< 200 ng/mL); Benzodiazepine Urine NEGATIVE (< 200 ng/mL); PCP Urine NEGATIVE (< 25 ng/mL); THC Urine NEGATIVE (< 50 ng/mL)
--- NOTE | 2025-06-08 15:40 | RAD_ITS ---
PROCEDURE: CHEST PA AND LATERAL 06/08/2025 REASON FOR EXAM: Loss of consciousness TECHNIQUE: Procedure Code: RADCXR Modality: DX Procedure: CHEST PA AND LATERAL COMPARISON: None FINDINGS: Hardware: The Heart: Heart size is mildly enlarged. Mediastinum: The mediastinal contour is unremarkable. Lungs: Bibasilar atelectasis. Bones: Age-related degenerative changes RAD/Chest PA and Lateral IMPRESSION: Bibasilar atelectasis. No other acute cardiopulmonary abnormality. Reading Location: [id number]
[2025-06-08 16:04] LABS: Hematocrit 48.2 % (40-54); Hemoglobin 17.0 g/dL (13.0-16.5); Immature Granulocytes Count 0.040 X10^3/uL (0.0-0.0); Mean Corp Hgb Conc 35.3 g/dL (32-36); Mean Corpuscular Volume 92.9 fL (80-94); Mean Platelet Vol. 10.2 fl (6.2-12.0); NRBC Flagged by Analyzer 0 % (0-5); Platelet Count 256 K/mm3 (150-450); RBC Distribution Width CV 11.9 % (11.6-14.6); RBC Distribution Width SD 41.3 fl (35.1-43.9); Red Blood Count 5.19 M/mm3 (4.6-6.2); White Blood Count 10.8 K/mm3 (4.4-11.0)
--- NOTE | 2025-06-08 18:57 | HP.PCM.HOS_ITS ---
HPI - General General Date of Admission: 06/08/25 Date of Service: 06/08/25 Chief Complaint: Altered LOC HPI Narrative DIAMOND MARSH, is a 60-year-old male history of morbid obesity, ELBERT, hypertension, diabetes, hypothyroidism presented to [facility] ED 06/08/2025 with altered mental status. Patient was found in a car by bystander and with altered level of consciousness and was only alert and oriented to self so he was brought to the ED. In the ED temp 98.2, blood pressure 152/100, heart rate 106 and respiratory rate 28 with pulse ox 97% on room air. CBC white count 10.8, hemoglobin 17, CMP bicarb 20.7, gap of 19, BUN of 18 and creatinine 1.28, lactic acid 1.4, alcohol negative, troponin 19. UA not suggestive of UTI. X-ray with bibasilar atelectasis, brain CT no acute abnormality, head/neck CTA with large left thyroid lobe with multiple calcifications with no other acute process. UDS was positive for cocaine and fentanyl. Despite patient waking up and being more interactive he demonstrated expressive aphasia and there was concern for CVA by ED provider so hospitalist contacted for admission. Patient evaluated bedside. Patient would wake up and get agitated and then fall back asleep, would slur her words but difficult to tell underlying etiology of this given agitation and polysubstance use and inability to participate in a full neuroexam. Patient was seen with the ED provider and patient did wake up and answer questions though again had difficulty getting words out, he later woke up and pulled IV out and was demanding to leave despite concern that he had a TIA/CVA when patient was pink slipped in the ED. [facility] Medical History Congestive heart failure (CHF) BMI greater than 40 Obstructive sleep apnea Hypertension Type 2 diabetes mellitus with insulin therapy Home Medications ?Medication ?Instructions ?Recorded ?Last Taken ?Type aspirin 325 mg tablet 325 mg PO DAILY@0800 5 Unknown History levothyroxine 125 mcg tablet 125 mcg PO DAILY 10/15/14 Unknown History metoprolol tartrate 50 mg tablet 50 mg PO DAILY Unknown History doxycycline hyclate 100 mg capsule 100 mg PO BID ##28 01/12/17 Unknown Rx albuterol sulfate 90 mcg/actuation 2 puff inhalation Q 4H PRN PRN 08/31/24 Unknown Rx aerosol inhaler (Ventolin HFA) Wheezing ##1 furosemide 20 mg tablet (Lasix) 20 mg PO DAILY 30 days #30 tabs 12/23/24 Unknown Rx nystatin 100,000 unit/mL oral 5 ml PO 4X/DAY 14 days # 280 mL 12/23/24 Unknown Rx suspension diphenhydramine HCl 25 mg tablet 25 mg PO TID PRN itch ing #30 tabs 01/06/25 Unknown Rx (Benadryl Allergy) loratadine 10 mg tablet 10 mg PO DAILY #30 tabs 12/20 05/15 Unknown Rx Allergy/AdvReac Type Severity Reaction Status Date / Time Sulfa (Sulfonamide Allergy Swelling Verified 03/08/25 03:14 Antibiotics) sulfamethoxazole (From Allergy Swelling Verified 03/08/25 03:14 Bactrim) trimethoprim (From Bactrim) Allergy Swelling Verified 03/08/25 03:14 Social History household members: none Smoking Status: Current every day smoker tobacco type: cigarettes ROS ROS Narrative Unable to obtain ROS secondary to mental status Vital Signs Vital Signs Vital Signs: 06/08/25 13:40 06/08/25 13:45 06/08/25 14:42 Temperature 98.2 F 98.2 F Temperature Source Oral Oral Pulse Rate 100 106 H 99 Respiratory Rate 26 H 28 H 22 H Blood Pressure 152/104 H 152/100 H Blood Pressure Mean 120 117 Pulse Ox 96 97 98 Oxygen Delivery Method Room Air Room Air Oxygen Flow Rate (L/min) 06/08/25 15:00 06/08/25 16:00 06/08/25 17:00 Temperature Temperature Source Pulse Rate 98 100 101 H Respiratory Rate 18 18 Blood Pressure 119/75 136/96 H Blood Pressure Mean 89 109 Pulse Ox 93 95 95 Oxygen Delivery Method Nasal Cannula Nasal Cannula Oxygen Flow Rate (L/min) 2 06/08/25 18:00 06/08/25 18:07 Temperature 97.8 F Temperature Source Pulse Rate 105 H 105 H Respiratory Rate 21 H 21 H Blood Pressure 154/102 H 154/102 H Blood Pressure Mean 119 119 Pulse Ox 93 93 Oxygen Delivery Method Oxygen Flow Rate (L/min) Weight Weight: 128.9 kg Body Mass Index (BMI) 44.5 Physical Exam Narrative General: Patient would wake up and look around, but attempt get words out but had somewhat slurred speech and difficulty with communication HEENT: Normocephalic Eyes: Anicteric, normal conjunctiva, extraocular movements grossly intact Neck: Supple Respiratory: No overt wheezes rhonchi, normal respiratory effort Cardiovascular: Regular rate and rhythm GI: Soft, nontender Extremities: No edema Musculoskeletal: Moving all extremities Neuro: Slurred speech, difficulty getting words out, unable to obtain full neuroexam given patient's mental status and being uncooperative Skin: No rashes appreciated Psych: Uncooperative, agitated Results Lab / Micro Data 06/08/25 15:10 06/08/25 14:14 Labs: Laboratory Results - last 24 hr 06/08/25 14:14: WBC Cancelled, Corrected WBC Cancelled, RBC Cancelled, Hgb Cancelled, Hct Cancelled, MCV Cancelled, MCH Cancelled, MCHC Cancelled, RDW Std Deviation Cancelled, RDW Coeff of Amanda Cancelled, Plt Count Cancelled, MPV Cancelled, Immature Gran % (Auto) Cancelled, Neut % (Auto) Cancelled, Lymph % (Auto) Cancelled, Teller % (Auto) Cancelled, Eos % (Auto) Cancelled, Baso % (Auto) Cancelled, Absolute Neuts (auto) Cancelled, Absolute Lymphs (auto) Cancelled, Total Counted Cancelled, Neutrophils % (Manual) Cancelled, Band Neutrophils % Cancelled, Lymphocytes % (Manual) Cancelled, Monocytes % (Manual) Cancelled, Eosinophils % (Manual) Cancelled, Basophils % (Manual) Cancelled, Metamyelocytes % Cancelled, Myelocytes % Cancelled, Promyelocytes % Cancelled, Blast Cells % Cancelled, Plasma Cell % (Manual) Cancelled, Other Cells % Cancelled, Nucleated RBC % Cancelled, Nucleated RBCs/100 WBC Cancelled, Differential Comment Cancelled, Diff Path Review Cancelled, Hypersegmented Neuts Cancelled, Atypical Lymphocytes Cancelled, Reactive Lymphocytes Cancelled, Smudge Cells Cancelled, Toxic Granulation Cancelled, Toxic Vacuolation Cancelled, Dohle Bodies Cancelled, Naresh Rods Cancelled, Platelet Estimate Cancelled, Plt Morphology Comment Cancelled, RBC Morphology Cancelled 06/08/25 14:14: RBC Morphology Cancelled, Polychromasia Cancelled, Hypochromasia Cancelled, Basophilic Stippling Cancelled, Anisocytosis Cancelled, Microcytosis Cancelled, Macrocytosis Cancelled, Spherocytes Cancelled, Sickle Cells Cancelled, Target Cells Cancelled, Tear Drop Cells Cancelled, Ovalocytes Cancelled, Stomatocytes Cancelled, [place] Bodies Cancelled, Friendship Cells Cancelled, Bite Cells Cancelled, Crenated Cell Cancelled, Acanthocytes (Spur) Cancelled, Rouleaux Cancelled, Schistocytes Cancelled, Sodium 138, Potassium 3.5, Chloride 99, Carbon Dioxide 20.7 L, Anion Gap 19 H, BUN 18, Creatinine 1.28 H, Estim Creat Clear Calc 77.20, Est GFR (MDRD) Non-Af 63, BUN/Creatinine Ratio 14.3, Glucose 107 H, Lactic Acid 1.4, Calcium 9.6, Total Bilirubin 0.85, AST 36, ALT 24, Alkaline Phosphatase 50, Troponin T High Sens 19, Total Protein 7.3, Albumin 4.2, Globulin 3.1, Albumin/Globulin Ratio 1.3, Ethyl Alcohol < 10.1 06/08/25 14:36: Urine Color Yellow, Urine Clarity Clear, Urine pH 5.0, Ur Specific [place] 1.025, Urine Protein 500 H, Urine Glucose (UA) Normal, Urine Ketones 50 H, Urine Occult Blood 25 H, Urine Nitrite Negative, Urine Bilirubin 1 H, Urine Urobilinogen 1 H, Ur Leukocyte Esterase Negative, Urine RBC 0 SEEN, Urine WBC 0 SEEN, Ur Squamous Epith Cells 0 SEEN, Urine Bacteria 0 SEEN, Urine Mucus 0 SEEN, Urine Opiates Screen NEGATIVE, U Buprenorphine Qual NEGATIVE, Ur Oxycodone Screen NEGATIVE, Urine Methadone Screen NEGATIVE, Urine Fentanyl Screen PRESUMPTIVE POSITIVE, Ur Barbiturates Screen NEGATIVE, Ur Phencyclidine Scrn NEGATIVE, Ur Amphetamines Screen NEGATIVE, U Benzodiazepines Scrn NEGATIVE, Urine Cocaine Screen PRESUMPTIVE POSITIVE, U Cannabinoids Screen NEGATIVE 06/08/25 15:10: WBC 10.8, RBC 5.19, Hgb 17.0 H, Hct 48.2, MCV 92.9, MCH 32.8 H, MCHC 35.3, RDW Std Deviation 41.3, RDW Coeff of Amanda 11.9, Plt Count 256, MPV 10.2, Immature Gran % (Auto) 0.400, Neut % (Auto) 59.3, Lymph % (Auto) 25.1, M fawn % (Auto) 10.4 H, Eos % (Auto) 4.7, Baso % (Auto) 0.1, Absolute Neuts (auto) 6.4, Absolute Lymphs (auto) 2.70, Nucleated RBC % 0 Rhythm Strip Rhythm Strip: Sinus Rhythm Rate: 100 Ectopy: PAC(s) Imaging Radiology Impression Brain CT 06/08/25 15:30 IMPRESSION: No acute intracranial abnormality. Reading Location: [facility] Head/Neck CTA 06/08/25 15:30 IMPRESSION: 1. No hemodynamically significant stenosis within the head or neck. No evidence of intracranial aneurysm. 2. Enlarged left thyroid lobe with multiple calcifications. Reading Location: [facility] Chest X-Ray 06/08/25 15:40 IMPRESSION: Bibasilar atelectasis. No other acute cardiopulmonary abnormality. Reading Location: [facility] Assessment & Plan Assessment/Plan (1) Slurred speech: PLAN: Plan # Slurred speech and some possibly expressive aphasia -Admit to tele -Unclear if patient's symptoms could be due to CVA or due to polysubstance use, cannot rule out the former and ED physician concerned for CVA so hospitalist contacted for CVA rule out -CT head w/ no acute process -CTA head and neck no acute process -MRI ordered -NIH q4hr -asa, statin -Echo -PT/OT/Speech eval -Teleneuro consult placed -Hold BP medications to allow for permissive hypertension for 24 hours unless SBP greater than 220 or DBP greater than 120 or until stroke is ruled out -Will check TSH #ELBERT - Unclear if patient uses BiPAP nightly, unable to answer question at this time -Head of bed elevated to least 30 degrees -Likely will need BiPAP overnight as patient received sedating medications in the ED due to his agitation to avoid hypercapnia -Will place order # Polysubstance abuse and agitation -Patient positive for fentanyl and cocaine, did endorse using cocaine to staff in the ED -After hospitalist called to admit for stroke rule out patient became agitated assisting on leaving, ED physician ace slipped patient -Patient to be admitted for stroke rule out with crisis evaluation once deemed medically able to do so #Hypothyroidism -Continue Synthroid #Hypertension - Medications for hypertension as per stroke protocol #Type 2 diabetes mellitus -Glucose checks and sliding scale insulin -Does not appear to be on any home hypoglycemics however patient unable to give any updated medications so unclear -Will continue glucose checks and sliding scale insulin based on patient's documented history and order an A1c #Morbid obesity -BMI documented as 44.5 kg/m? at time of admission -Complicates treatment, prognosis, outcomes -Recommend weight loss and lifestyle changes #DVT ppx: Lovenox SQ twice daily Ca Newman MD Time spent in the patient's overall evaluation, decision-making process, review of diagnostic data, adjustment of management, discussion with other providers, nursing and ancillary staff involved in patient's care documentation, 82 Minutes Charges/Coding Visit Charges Inpatient E&M: 41839 Init Hosp L2
[2025-06-08] MEDS: Ziprasidone IM 20 MG/ML VIAL IM (19:00)
--- NOTE | 2025-06-08 19:02 | ED.RN ---
pt noted to be walking around and there is blood on the floor. pts iv tubing attached to the iv hub and noted to be chewed through. pt has gown off and blood dripping all over the floor and the bed. pt demanding to leave and states that he hasn't eaten in 5 days and he needs to leave to get food and a coke. this rn attempts to de-escalate patient by staff giving food. pt assited to restroom and then comes back to room. talking on the phone with his friend. friend also tells patient that he is not being able to drive and should stay to ge the help he needs. pt calms down and eats his food. this rn returns to room and patient demanding that he leaves multiple times. this rn speaks to Edwin ZULUAGA and Dr Bower all staff in agreement that patient needs to be pink slipped to have the medical workup necessary to rule out a possible stroke from cocaine use. pt continues to escalate. the next time staff enters room, pt is attempting to get dress in his clothing from home and states that he is walking out. ED staff, security, dr bower at bedside. pt told that he has a pink slip for medical evaluation. pt still agitated and given IM dose of Geodon. pt belongings taken at this time for patient safety. pt continues to get agitated yelling at this nurse from his bed. pt states that he is not paying for the hospital bill and this nurse is the reason that he will not be able to make payments on his bills. pt to be assisted to PCU by ed staff and security. dr bower and dr shepherd notified
--- OUTSIDE RECORDS SUMMARY | 2025-06-08 19:09 | XMS RPT_ITS | CCD ---
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 Name Role Phone Unavailable Primary Care Provider UnavailGavin Waldrop DO Unavailable Duncan Craven MD Primary Care Provider Gavin Betancur DO Unavailable Unavailable Primary Care Provider Unavailjuan BETANCUR II, DR GAVIN MALAVE Primary Care Physi tracey Unavailable Duncan Craven MD Primary Care Provider KYLIE DURANT DO Attending Unavailable PIPE GONSALVES, DR GAVIN MALAVE Primary Care Un available INDER PRAJAPATI MD Attending Unavailable PIPE GONSALVES, DR GAVIN MALAVE Primary Care Un available Justo RN, Homa Unavailable Unavailable Nisha [facility] Unavailable Unavail able Esola RN, Homa Unavailable [...] TIM ALONSO, DR MILLAN Attending Unavailjuan Sandy DEVELOPMENTAL WRITING INSTRUCTOR.SENIOR JAVA J2EE DEVELOPER, Negin Unavailable Podlogar DEVELOPMENTAL WRITING INSTRUCTOR.SENIOR JAVA J2EE DEVELOPER, Jocelyn Unavailable Du DEVELOPMENTAL WRITING INSTRUCTOR.SENIOR JAVA J2EE DEVELOPER, Negin Unavailable Luis Fernando ALONSO, Dr. Stewart Attending Provider Dr. Terry Gould MD Emergency Provider Care Physician, No Primary Primary Care Provider Unavailable Dr. Salty Werner DO Emergency Provider Care Physician, No Primary Primary Care Provider Unavailable Debbi MARIE, Dr. Pond Attending Provider Maida MARIE, Dr. Moreau Emergency Provider [facility] Admitting Unavailable RAHAT CHRISTIE Attending Unavailable Nikolai Nazario DO Primary Care Provider Maida MARIE, Dr. Moreau Attending Provider Dr. Maureen Gomez DO Emergency Provider Care Physician, No Primary Primary Care Unava ilable Terry Gould Attending Unavailable Salty Werner Attending Unavailable Care Physician, No Primary Primary Care Unava ilable Care Physician, No Primary Primary Care Unava ilable Prieto Bey Attending Unavailable Care Physician, No Primary Primary Care Unava ilable Maureen Gomez Attending Unavailable LISSAFIAN, SHOLA-ALI Primary Care Unavailable INDER BRUCE Referring Unavail able OSCAR BRIZUELA Primary Care Unavailab NIKOLAI May Referring Unavailable OSCAR BRIZULEA Primary Care Unavailab YULIET Simon Attending Unavailable OSCAR BRIZUELA Referring Unavailab NIKOLAI May Primary Care Unavailable LOTFIAN, SHOLA-ALI Primary Care Unavailable LOTFIAN, SHOLA-ALI Referring Unavailable LOTFIAN, SHOLA-ALI Primary Care Unavailable OSCAR BRIZUELA Attending Unavailab le LOTFIAN, SHOLA-ALI Primary Care Unavailable LOTFIAN, SHOLA-ALI Primary Care Unavailable INDER BRUCE Referring Unavail able NIKOLAI NAZARIO Attending Unavailable OSCAR BRIZUELA Primary Care Unavailab NATALI Girard Attending Unavailable CLAUS ANDERSON Referring Unavailable WIGGERS, NIKOLAI DUNCAN Primary Care Unavailable WIGGERS, NIKOLAI BEGUMKE Attending Unavailable WIGGERS, NIKOLAI PERLA Referring Unavailable WIGGERS, NIKOLAI PERLA Primary Care Unavailable WIGGERS, NIKOLAI PERLA Referring Unavailable WIGGERS, NIKOLAI PERLA Primary Care Unavailable LOTFIAN, SHOLA-ALI Referring Unavailable LOTFIAN, SHOLA-ALI Primary Care Unavailable PAPOURINDER LUNA Attending Unavail able GAVIN BETANCUR II Referring Unava ilable LOTFIAN, SHOLA-ALI Primary Care Unavailable ORAL ABBASI Attending Unavailable SELF Referring Unavailable LOTFIAN, SHOLA-ALI Primary Care Unavailable KIRSTINHECTOR Huang Admitting Unavailable KIRSTINHECTOR Huang Attending Unavailable BURSLEY, CHRISTOPHER B Primary Care Unavailab le PAPOURASINDER Attending Unavail able DAVIDLEY, CHRISTOPHER B Primary Care Unavailab ISSAC Meraz Attending Unavailable INDER BRUCE Referring Unavail able OSCAR BRIZUELA Primary Care Unavailab ISSAC Meraz Attending Unavailable DAVIDLEY, CHRISTOPHER B Primary Care Unavailab le ROSS TALITA Referring Unavailable WIGGERS, NIKOLAI B Primary Care Unavailable ROSSTALITA Attending Unavailable WIGGERS, NIKOLAI B Primary Care Unavailable OSCAR NUNEZ Attending Unavailable WIGGERS, NIKOLAI B Referring Unavailable WIGGERS, NIKOLAI B Primary Care Unavailable Podlogar DEVELOPMENTAL WRITING INSTRUCTOR.JOHN Jocelyn Unavailable Du DEVELOPMENTAL WRITING INSTRUCTOR.Negin LOPEZ Unavailable Allergies Allergy Classification Reported Allergen(s) Allergy Type Date of Onset Reaction(s) Facility (20 sources) Sulfamethoxazole Drug Allergy 10-29-19 11 Rash, Swelling [facility] (20 sources) Sulfamethoxazole / Trimethoprim; Translations: [sulfamethoxazole-tr imethoprim] Drug Allergy 10-20-19 10 Hives, Rash, Swelling [facility] (20 sources) Lisinopril; Translations: [LISINOPRIL] Drug Allergy 04-24-20 23 Cough [facility] (20 sources) metFORMIN; Translations: [METFORMIN] Drug Allergy 04-26-20 23 Diarrhea [facility] (20 sources) Amoxicillin / Clavulanate; Translations: [AMOXICILLIN-POT CLAVULANATE] Drug Allergy 12-23-19 24 Anaphylaxis, Swelling [facility] (20 sources) Doxycycline; Translations: [doxycycline] Drug Allergy 11-09-19 Unknown [facility] (4 sources) Sulfonamides (Antibiotic) Allergy to substance 09-04-20 Swelling [facility] (20 sources) Trimethoprim; Translations: [TRIMETHOPRIM] Drug Allergy 09-04-20 Swelling [facility] (1 source) predniSONE Drug Allergy 12-24-19 Swelling [facility] (1 source) predniSONE Drug Allergy 12-24-19 [facility] (1 source) Sulfamethoxazole Drug Allergy 03-08-20 [facility] (1 source) Sulfonamides (Antibiotic) Drug allergy (disorder) 03-08-20 [facility] (1 source) Trimethoprim Drug Allergy 03-08-20 [facility] Medications Current Medications Medication Drug Class(es) [...] Take 1 tablet by lisandro th every 6 hours as needed for pain for up to 7 days. [id number] 200 actuat albuterol 0.09 mg/actuat metered dose [...] Active Start: 10-15-2014 take 1 tablet by lisandro th once daily Aspirin 325 MG tablet [...] Date: 11/28/23 Stop Date: 12/03/23 Status: Ordered dapagliflozin 10 mg oral tablet (20 sources) Sodium-Glucose Cotransporter 2 Inhibitor Start: End: take 1 tablet by mouth once daily dapagliflozin (Farxiga) 10 MG tablet Indications: Heart Failure Take 1 tablet (10 mg) by mouth daily. 30 tablet 11 01/17/2025 01/17/2026 Active diphenhydrAMINE hydrochloride 25 mg oral tablet (20 sources) Histamine-1 Receptor Antagonist Start: take 1 tablet by mouth three times daily as needed Diphenhydramine Hcl (Benadryl Allergy) 25 mg tablet Active 25 mg PO THREE TIMES A DAY as needed for itching January 06, 2025 12:00am take 1 capsule by [facility] every eight hours as needed diphenhydrAMINE (BANOPHEN) 25 mg capsule Take 25 mg by mouth three times a day as needed. Active doxycycline hyclate 100 mg oral tablet (9 sources) Tetracycline-class Drug Start: 08-31-2023 End: 09-07-2023 [...] 07/07/2023 Start: 01-12-2017 take 1 capsule by [facility] twice daily Doxycycline Hyclate 100 MG capsule Active 100 mg PO TWICE A DAY January 12, 2017 12:00am Comment on above: Take 1 tablet by [facility] two times a day for 7 days. dulaglutide (TRULICITY) 3 mg/0.5 mL pen injector (9 sources) Start: 2024 End: 2024 dulaglutide (TRULICITY) 3 mg/0.5 mL pen injector Indications: Uncontrolled type 2 diabetes mellitus with hyperglycemia (HCC) , Primary hypertension , Coronary artery disease involving [place] coronary artery of [place] heart without angina pectoris , BMI 40.0-44.9, adult (HCC) Inject 3 mg subcutaneously one time a week. 2 mL 2 03/02/2025 05/31/2025 Active dulaglutide (TRULICITY) 4.5 mg/0.5 mL pen injector (3 sources) Start: 2024 End: 2024 inject 4.5 mg by subcutaneous injection every week dulaglutide (TRULICITY) 4.5 mg/0.5 mL pen injector Indications: Type 2 diabetes mellitus with diabetic microalbuminuria, with long-term current use of insulin (HCC) Inject 4.5 mg subcutaneously one time a week. 2 mL 2 04/26/2025 07/25/2025 Active 1 ml evolocumab 140 mg/ml auto-injector (7 sources) PCSK9 Inhibitor Start: 2024 inject 140 mg by subcutaneous injection every other week in the morning evolocumab 140 mg/mL subcutaneous pen injector (REPATHPlanetHSCLICK) Inject 140 mg subcutaneously every 2 weeks. 6 each 4 04/21/2025 7:55 AM EDT 04/11/2025 Active ezetimibe 10 mg oral tablet (20 sources) Dietary Cholesterol Absorption Inhibitor Start: 2024 End: 2025 take 1 tablet by mouth once daily ezetimibe (ZETIA) 10 mg tablet Indications: Hypercholesteremia Take 1 tablet by mouth once daily. 90 tablet 3 01/19/2025 01/19/2026 Active fluticasone propionate 0.05 mg/actuat metered dose nasal spray (20 sources) Corticosteroid Start: 2024 End: 2025 take 1 spray(s) nasal route once daily [...] take 1 tablet by mouth once daily Furosemide (Lasix) 20 mg tablet Active 20 mg PO DAILY December 23, 2024 12:00am Start: 04-16-2024 End: 10-18-2024 take 1 tablet [...] 04/11/2024 04/18/2024 Active take 2 tablets by [facility] once daily furosemide (LASIX) 20 mg tablet [...] 01-06-2024 take 1 tablet by lisandro th every [...] before breakfast. loratadine 10 mg oral tablet (20 sources) Start: 5 take 1 tablet by mouth once daily Loratadine 10 mg tablet Active 10 mg PO DAILY January 06, 2025 12:00am losartan potassium 25 mg oral tablet (20 [...] days. Take 1 tablet by lisandro th two times a day. 24 hr metoprolol [...] oral tablet (20 sources) Start: 01-27-2025 End: 04-26-2026 take 1.5 tablets by mouth once daily at bedtime mirtazapine (REMERON) 15 mg tablet Indications: Bipolar 1 disorder (HCC) Take 1.5 tablets by mouth daily at bedtime. 135 tablet 3 04/26/2025 04/26/2026 Active Start: 10-20-2023 End: 04-16-2025 take 1 [...] Hours, Daily, First dose on 01/14/25 at 2014, Apply new patch to nonhairy, clean, dry skin on the upper body or upper outer arm. Rotate patch sites. Notify Pharmacy if patient or provider prefers patch to be removed at bedtime and replaced in the morning. nystatin [id number] unt/ml oral suspension (20 sources) Polyene Antifungal [...] NaCl (PF) 0.9% 10 mL injection (DEFINITY) regadenoson 0.4 mg injection (LEXISCAN) (6 sources) [...] between any BECKY inhibitor dose and sacubitril-valsartan. sildenafil 100 mg oral tablet (2 sources) Phosphodiesterase 5 Inhibitor Start: 05-10-2025 take 1 tablet by mouth once daily as needed sildenafil (VIAGRA) 100 mg tablet Take 1 tablet by mouth once daily as needed. 10 tablet 10 05/11/2025 Active 125 ml sodium chloride 9 mg/ml prefilled syringe (8 sources) Start: 04-13-2024 End: 04-20-2024 sodium chloride 0.9 % (flush) 10 mL (BD POSIFLUSH) Start: 04-12-2024 End: [...] (heart failure with reduced ejection fraction) (HCC) Take 1 tablet by mouth once daily. 90 tablet 10/27/2024 11/09/2024 Discontinued (Course of therapy completed) traZODone hydrochloride 100 mg oral tablet (20 sources) Serotonin Reuptake Inhibitor Start: 01-16-2025 End: 04-26-2026 take 1 tablet by mouth at bedtime as needed for sleep, then take 0.5 tablet by mouth in the morning as needed for sleep traZODone (DESYREL) 100 mg tablet Indications: Insomnia, unspecified type Take 1 tablet by mouth at bedtime as needed (sleep). Okay to take one-half of a tablet if feeling too sedated in the morning. 90 tablet 3 04/26/2025 04/26/2026 Active Start: 09-05-2024 End: 12-04-2024 take 1 tablet by mouth once daily at bedtime traZODone (DESYREL) 100 mg tablet Indications: Mood disorder (HCC) , Insomnia, unspecified type Take 1 tablet by mouth daily at bedtime. 30 tablet 2 09/05/2024 12/04/2024 Active Start: 11-02-2023 End: 05-03-2024 take 1 tablet by mouth once daily [...] 06/30/2023 09/10/2023 Discontinued take 1 capsule by mo uth every eight hours as needed Benzonatate 200 [...] 5 mg, Oral, Daily, First dose on Thu01/14/25 at 0900, Substituted for Loratadine (CLARITIN). Start: 02-03-2024 End: 03-04-2024 take 1 tablet by mouth once daily cetirizine (ZYRTEC) 10 mg tablet Indications: Seasonal allergies Take 1 tablet by mouth once daily. 30 tablet 0 02/03/2024 03/04/2024 Active cholecalciferol 9.52 unt/ml / glucose 357 mg/ml oral gel (2 sources) Vitamin D Start: 01-13-2025 End: 01-17-2025 clindamycin 300 mg oral capsule (3 sources) Lincosamide Antibacterial Start: 12-23-2024 End: 03-08-2025 take 1 capsule by mouth four times daily Clindamycin Hcl (Cleocin Hcl) 300 mg capsule Discontinued 300 mg PO 4 TIMES DAILY 40 10 December 23, 2024 12:00am March 08, 2025 3:14am 0.5 ml dulaglutide 3 mg/ml auto-injector (20 sources) GLP-1 Receptor Agonist Start: 11-02-2024 End: 03-01-2025 dulaglutide (TRULICITY) 1.5 mg/0.5 mL pen injector Indications: Uncontrolled type 2 diabetes mellitus with hyperglycemia (HCC) , Primary hypertension , Coronary artery disease involving [place] coronary artery of [place] heart without angina pectoris , BMI 40.0-44.9, adult ([facility]) Inject 1.5 mg subcutaneously one time a week. Monitor bs closely and keep food log 2 mL 2 11/02/2024 03/01/2025 Discontinued Start: 12-29-2023 End: 01-09-2025 dulaglutide (TRULICITY) 0.75 mg/0.5 mL pen injector Indications: Uncontrolled type 2 diabetes mellitus with hyperglycemia (HCC) , Primary hypertension , Coronary artery disease involving [place] coronary artery of [place] heart without angina pectoris , BMI 40.0-44.9, adult (HCC) Inject 0.75 mg subcutaneously one time a week. Monitor bs closely and keep food log 6 mL 10/11/2024 11/02/2024 Discontinued Start: 11-23-2023 End: 12-23-2023 dulaglutide (TRULICITY) 0.75 mg/0.5 mL pen injector Indications: Primary hypertension , Coronary artery disease involving [place] coronary artery of [place] heart without angina pectoris , BMI 40.0-44.9, adult (HCC) , Type 2 diabetes mellitus with other specified complication, unspecified whether [employer] insulin use (HCC) Inject 0.75 mg subcutaneously one time a week. Monitor bs closely and keep food log 2 mL 0 11/23/2023 12/23/2023 Active Start: 10-20-2023 End: 11-19-2023 dulaglutide (TRULICITY) 0.75 mg/0.5 mL pen injector Indications: Primary hypertension , Coronary artery disease involving [place] coronary artery of [place] heart without angina pectoris , BMI 40.0-44.9, adult (HCC) , Type 2 diabetes mellitus with other specified complication, unspecified whether [employer] insulin use (HCC) Inject 0.75 mg subcutaneously [...] on above: Take 1 tablet by lisandro once daily. perflutren protein A microsphere (Optison) [...] reach optimal image enhancement polyethylene glycol [id number] mg powder for oral solution (2 sources) [...] End: 01-15-2025 20 mEq, Oral, Once, On 01/15/25 at 0930, For 1 dose, Best given with food and plenty of water to minimize gastric irritation. Do not crush or chew. predniSONE 20 mg oral tablet (20 sources) Start: 01-06-2025 End: 03-08-2025 take 2 tablets by mouth once daily Prednisone 20 mg tablet Discontinued 40 mg PO DAILY January 06, 2025 12:00am March 08, 2025 3:14am Start: 11-09-2024 End: 11-16-2024 prednisone 10mg tab (TAPER) Dose : 60 mg = 6 tab(s), Oral, qDay, with food, # 23 tab(s), 0 Refill(s) Start Date: 11/09/24 Stop Date: 11/16/24 Status: Ordered Quantity: 23.0 Unit: tab(s) Repeat number: 1 Start: 08-31-2024 End: 03-08-2025 take 3 tablets by mouth once daily Prednisone 20 mg tablet Discontinued 60 mg PO DAILY August 31, 2024 1:00am March 08, 2025 3:14am Start: 03-29-2024 End: 04-02-2024 predniSONE 20 mg [...] Date: 11/28/23 Stop Date: 12/04/23 Status: Ordered tiZANidine 4 mg oral tablet (2 sources) [...] in other specified circumstances] Episodic Allergic reactions (3 sources) Contact dermatitis; Translations: [Unspecified contact dermatitis, unspecified cause] Onset: 01-11-2025 01-06-2025 Episodic Anxiety disorders (11 sources) Anxiety; Translations: [Anxiety disorder, unspecified] Onset: 01-27-2025 11-02-2023 Chronic Asthma (9 sources) Mild intermittent asthma; Translations: [Mild intermittent asthma, uncomplicated] 04-27-2023 Chronic Cardiac dysrhythmias (20 sources) Atrial arrhythmia; Translations: [Unspecified atrial fibrillation] Onset: 04-14-2024 04-14-2024 Chronic Cataract (20 sources) Nuclear sclerotic cataract; Translations: [Age-related nuclear cataract, bilateral] Onset: 10-23-2023 10-23-2023 Chronic Chronic kidney disease (5 sources) Chronic kidney disease stage 3; Translations: [CKD stage G3a/A3, GFR 45-59 and albumin creatinine ratio >300 mg/g] Onset: 04-26-2025 04-26-2025 Chronic Chronic kidney disease (2 sources) Chronic kidney disease; Translations: [CKD stage G3a/A3, GFR 45-59 and albumin creatinine ratio >300 mg/g (HCC)] Onset: 04-26-2025 Conduction disorders (20 sources) EKG: left bundle branch block; Translations: [Left bundle-branch block, unspecified] Onset: 09-04-2014 09-04-2014 Chronic Congestive heart failure; nonhypertensive (20 sources) Acute systolic heart failure; Translations: [Acute systolic (congestive) heart failure] Onset: 04-13-2024 Resolved: 01-19-2025 04-13-2024 Chronic Coronary atherosclerosis and other heart disease (20 sources) Coronary arteriosclerosis; Translations: [Atherosclerotic heart disease of [place] coronary artery without angina pectoris] Onset: 09-04-2014 09-04-2014 Chronic Diabetes mellitus with complications (20 sources) Type 2 diabetes mellitus in obese; Translations: [Type 2 diabetes mellitus with other specified complication] Onset: 09-23-2023 Chronic Diabetes mellitus without complication (20 sources) Diabetes mellitus type 2 without retinopathy; Translations: [Type 2 diabetes mellitus without complications] Onset: 06-02-2024 10-23-2023 Chronic Diabetes mellitus without complication (5 sources) Hyperglycemia; Translations: [Hyperglycemia, unspecified] 08-31-2023 Episodic [...] for other viral diseases] Episodic Intracranial injury (3 sources) Concussion injury of body structure; Translations: [Concussion] 12-23-2024 Episodic Lymphadenitis (1 source) Posterior auricular lymphadenopathy; Translations: [Localized enlarged lymph nodes] 11-09-2023 Episodic Miscellaneous mental health disorders (3 sources) Primary insomnia; Translations: [Primary insomnia] Chronic Mood disorders (20 sources) Bipolar I disorder; Translations: [Bipolar disorder, unspecified] Onset: 11-02-2023 Resolved: 04-26-2025 Chronic Osteoarthritis (3 sources) Bilateral osteoarthritis of knees; Translations: [Bilateral primary osteoarthritis of knee] 07-07-2023 Chronic Other aftercare (3 sources) intermediate accountant (current) use of insulin; Translations: [Type 2 diabetes mellitus with diabetic microalbuminuria, with long-term current use of insulin (HCC)] Onset: 09-23-2023 Episodic Other and ill-defined heart disease (1 source) [...] [Pain in right hand] 01-19-2025 Episodic Other injuries and conditions due to external causes (3 sources) Closed injury of head; Translations: [Unspecified injury of head, initial encounter] 12-23-2024 Episodic Other injuries and conditions due to external causes (1 source) Other specified injuries of left wrist, hand and finger(s), initial encounter; Translations: [Other specified injuries of left wrist, hand and finger(s), initial encounter] Onset: 03-15-2025 Episodic Other injuries and conditions due to [...] cough; Translations: [Chronic cough] 06-30-2023 Episodic Other male genital disorders (15 sources) Drug-induced erectile dysfunction; Translations: [Impotence of organic origin] Onset: 03-28-2025 03-28-2025 Chronic Other male genital disorders (3 sources) Secondary erectile dysfunction; Translations: [Erectile dysfunction due to diseases classified elsewhere] Onset: 05-25-2025 05-25-2025 Chronic Other male genital disorders (1 source) Erectile dysfunction due to diseases classified elsewhere; Translations: [Erectile dysfunction due to diseases classified elsewhere] Onset: 05-25-2025 Chronic Other nutritional; endocrine; and metabolic disorders [...] (BMI) of 45.0 to 49.9 in adult ([facility])] 10-18-2024 Chronic Other nutritional; endocrine; and metabolic disorders (1 source) Body mass index (BMI) 40.0-44.9, adult; Translations: [BMI 40.0-44.9, adult ([facility])] Onset: 04-26-2025 Chronic Other nutritional; endocrine; and metabolic disorders (2 sources) Morbid (severe) obesity due to excess calories; Translations: [Morbid obesity ([facility])] Onset: 09-04-2014 Chronic Other nutritional; endocrine; and metabolic disorders (1 source) Body mass index (BMI) 45.0-49.9, adult; Translations: [Class 3 severe obesity due to excess calories with serious comorbidity and body mass index (BMI) of 45.0 to 49.9 in adult ([facility])] Onset: 09-04-2014 Chronic Other screening for suspected conditions (not mental disorders or infectious disease) (3 sources) Echocardiogram abnormal; Translations: [Abnormal findings on diagnostic imaging of heart and coronary circulation] Onset: 06-02-2024 04-12-2024 Episodic Other skin disorders (7 sources) Mass of [...] rhinitis] 02-03-2024 Chronic Other upper respiratory disease (3 sources) Acute bronchospasm; Translations: [Acute bronchospasm] 09-08-2024 Episodic Other upper respiratory infections (5 sources) Chronic sinusitis; Translations: [Chronic sinusitis, unspecified] 08-31-2023 Chronic Other upper respiratory infections (3 sources) Upper respiratory infection; Translations: [Acute upper respiratory infection, unspecified] 09-08-2024 Episodic Residual codes; unclassified (7 sources) Obstructive sleep apnea syndrome; Translations: [Obstructive sleep apnea (adult) (pediatric)] 06-26-2023 Chronic Residual codes; unclassified (1 source) Finding related to sleep; Translations: [Sleep apnea, unspecified] 07-07-2023 Chronic Residual codes; unclassified (2 sources) Obstructive sleep apnea (adult) (pediatric); Translations: [ELBERT [...] [Non-compliant patient] 11-02-2024 Episodic Residual codes; unclassified (2 sources) Insomnia, unspecified; Translations: [Insomnia, unspecified type] Onset: 01-27-2025 Episodic Residual codes; unclassified (1 source) Tobacco use and exposure - finding; Translations: [Tobacco use] 05-26-2025 Episodic Skin and subcutaneous tissue infections (4 sources) Infection of skin; Translations: [Local infection of the skin and subcutaneous tissue, unspecified] 06-30-2023 Episodic Substance-related disorders (20 sources) Cocaine dependence in remission; Translations: [Cocaine dependence, in remission] Onset: 09-10-2023 09-10-2023 Chronic Superficial injury; contusion (5 sources) Contusion of left elbow; Translations: [Contusion of left elbow, initial encounter] 03-28-2024 Episodic Thyroid disorders (20 sources) Hypothyroidism; Translations: [Hypothyroidism, unspecified] Onset: 09-23-2023 04-27-2023 Chronic Unclassified (1 source) Acute cough; Translations: [Acute cough] Onset: 04-26-2025 Unclassified (1 source) Obesity, Class III, BMI 40-49.9 (morbid obesity); Translations: [Obesity, Class III, BMI 40-49.9 (morbid obesity)] Onset: 01-19-2025 Unclassified (1 source) Cough, unspecified type; Translations: [Cough, unspecified type] Onset: 10-18-2024 Unclassified (1 source) Class 3 severe obesity due to excess calories with serious comorbidity and body mass index (BMI) of 45.0 to 49.9 in adult ([facility]); Translations: [Class 3 severe obesity due to excess calories with serious comorbidity and body mass index (BMI) of 45.0 to 49.9 in adult ([facility])] Onset: 09-04-2014 Unclassified (1 source) Obesity, Class III, BMI 40-49.9 (morbid obesity) ([facility]); Translations: [Obesity, Class III, BMI 40-49.9 (morbid obesity) ([facility])] Onset: 01-19-2025 Viral infection (3 sources) Viral disease; Translations: [Viral infection, unspecified] 09-08-2024 Episodic Past or Other Problems Problem Classification Problem Date Documented Date Episodic/Chronic Blindness and vision defects (20 sources) Bilateral hyperopia of eyes; Translations: [Hypermetropia, bilateral] Onset: 10-23-2023 10-23-2023 Episodic Coronary atherosclerosis and other heart disease (3 sources) Presence of coronary angioplasty implant and graft; Translations: [S/P coronary artery stent placement] Onset: 09-04-2014 Episodic Diseases of mouth; excluding dental (2 sources) Glossitis; Translations: [Glossitis] Onset: 06-02-2024 04-11-2024 Episodic Genitourinary symptoms and ill-defined conditions (5 sources) Increased frequency of urination; Translations: [Frequency of micturition] Onset: 09-23-2023 08-31-2023 Episodic Mycoses (5 sources) Candidiasis of mouth; Translations: [Candidal stomatitis] Onset: 10-18-2024 10-18-2024 Episodic Other and unspecified benign neoplasm (1 source) Benign lipomatous neoplasm of skin and subcutaneous tissue of head, face and neck; Translations: [Lipoma of neck] Onset: 11-09-2024 Episodic Other connective tissue disease (2 sources) Pain in right hand; Translations: [Pain of right hand] Onset: 01-19-2025 Episodic Other lower respiratory disease (1 source) Shortness of breath; Translations: [Shortness of breath] Onset: 10-03-2024 Episodic Other nutritional; endocrine; and metabolic disorders (20 sources) Obesity; Translations: [Obesity, unspecified] Onset: 09-04-2014 Resolved: 01-19-2025 09-04-2014 Chronic Other nutritional; endocrine; and metabolic disorders (20 sources) Obesity caused by energy imbalance; Translations: [Other obesity due to excess calories] Onset: 11-17-2016 Resolved: 01-19-2025 11-17-2016 Chronic Other skin disorders (2 sources) Localized swelling, mass and lump, neck; Translations: [Neck mass] Onset: 10-18-2024 Episodic Residual codes; unclassified (20 sources) Tobacco user; Translations: [Tobacco use] Onset: 09-04-2014 09-04-2014 Episodic Residual codes; unclassified (1 source) Tobacco use; Translations: [Tobacco abuse] Onset: 09-04-2014 Episodic Schizophrenia and other psychotic disorders (20 sources) Schizoaffective disorder, bipolar type; Translations: [Schizoaffective disorder, bipolar type] Onset: 09-10-2023 Resolved: 11-02-2023 09-10-2023 Chronic Results Test Name Value Interpretation Reference Range Facility [facility] 05-26-2025 CNOV Office Visit (URCANT ) VENKAT MARSH ([id number]) 1965 M Date Time Provider Department 05/26/25 11:00 AM OSCAR NUNEZ During your visit today, we recorded the following information about you: Oscar Nunez MD 05/26/2025 11:20 AM Signed [facility] NEW PATIENT CONSULT/HISTORY AND PHYSICAL PATIENT: Venkat Marsh (60 year old) REFERRING PROVIDER: Nikolai Nazario PCP: Nikolai Nazario DO DATE OF SERVICE: 05/26/2025 Consultation requested by Nikolai Nazario for an opinion regarding Venkat Marsh. The patient is a 60-year-old male with insulin-dependent DM, HTN, stage 3a CKD, obesity, HLD, and CAD s/p AR, presenting for evaluation of erectile dysfunction. SUMMARY: ED. Unable to attain Failed tadalafil. Only very mild results with sildenafil 100 mg Numerous risk factors Discussed treatment options Plan lifestyle modifications and trial of a OTILIO with the sildenafil 1. Erectile dysfunction due to diseases classified elsewhere (N52.1) 2. Drug-induced erectile dysfunction (N52.2) Erectile dysfunction likely multifactorial, with contributing factors including diabetes, hypertension, obesity, and metoprolol use. Patient has trialed sildenafil 100 mg with partial effect and tadalafil without benefit. Total testosterone 339 ng/dL on 03/31/2025 is within normal range for age; low testosterone is not suspected as a primary cause. - Advised against increasing sildenafil dose above 100 mg due to safety concerns. - Discussed vacuum erection device as next step; educated on mechanism, use, and high success rate; advised to trial device for one month. - Discussed intracavernosal injection therapy as a potential next step if vacuum device is ineffective. - Advised that surgical options (e.g., penile implant) are available if conservative measures fail, but not indicated at this time. - Patient expressed understanding and agreement with plan. 3. CKD stage G3a/A3, GFR 45-59 and albumin creatinine ratio >300 mg/g (HCC) (N18.31) Stage 3a CKD with eGFR 45-59 and albumin/creatinine ratio >300 mg/g; contributing factors include diabetes and hypertension. - Advised patient to continue routine monitoring and management with PCP. 4. Type 2 diabetes mellitus with hyperglycemia, with long-term current use of insulin ([facility]) (E11.65) Type 2 diabetes mellitus with hyperglycemia (HbA1c 7.5%) on long-term insulin therapy; suboptimal glycemic control contributing to ED and CKD. - Advised patient to work on improving glycemic control. 5. Obesity, Class III, BMI 40-49.9 (morbid obesity) ([facility]) (E66.813) Morbid obesity (BMI 43) contributing to ED and other comorbidities. - Advised patient to pursue weight loss and increased physical activity. 6. Primary hypertension (I10) Hypertension managed with metoprolol, Lasix, and spironolactone; metoprolol may contribute to ED. - Advised patient to continue antihypertensive therapy as prescribed. 7. Coronary artery disease involving [place] coronary artery of [place] heart without angina pectoris (I25.10) 8. Personal history of AR (myocardial infarction) (I25.2) History of CAD and AR; patient is stable and under ongoing management. - Advised patient to continue routine management with PCP. 9. Tobacco use (Z72.0) Active cigarette smoker; tobacco use is a contributing factor to ED and other comorbidities. - Advised patient on the negative impact of smoking on erectile function and overall health. 10. Hyperlipidemia, unspecified hyperlipidemia type (E78.5) Hyperlipidemia contributing to cardiovascular risk profile. - Advised patient to continue routine management with PCP. FOLLOW UP: Return if symptoms worsen or fail to improve. ORDERS: No orders of the defined types were placed in this encounter. HISTORY OF PRESENT ILLNESS: The patient is a 60-year-old male, with a history of DM, HTN, AR, and CKD stage 3a, presenting for evaluation of erectile dysfunction. The patient reports difficulty achieving erections, which he attributes to multiple factors, including weight, diabetes, cigarette smoking, caffeine intake, and antihypertensive medications. He has not engaged in sexual activity with a partner since 2018, following the end of his marriage, but notes that he experiences erectile dysfunction even when viewing pornography. He describes his erections as soft and not fully erect. He has tried sildenafil 100 mg recentl (more content not included)... [facility] 05-10-2025 CNPN Telephone (AGRallyhood) VENKAT MARSH ([id number]) 1965 M Date Time Provider Department 05/10/25 NIKOLAI NAZARIO [facility] [place] During your visit today, we recorded the following information about you: Miky العراقي 05/10/2025 11:21 AM Signed Patient called in requesting a prescription for brand name Viagra 100 mg 10 tablets. Patient states he is willing to pay for them out of pocket as be does not believe his insurance will cover them. Miky العراقي, Assistant Hall Director May 10, 2025 11:21 AM Dorinda Goldstein 05/10/2025 4:26 PM Signed Patient called in to ask if Dr. Nazario can resend his prescription with the Generic option. Patient states that the medication that was sent over is costing him 100$ a pill. Dorinda Goldstein, Assistant Hall Director May 10, 2025 4:25 PM Nikolai Nazario DO 05/11/2025 11:59 AM Signed Addended by: NIKOLAI NAZARIO on: 05/11/2025 11:59 AM Modules accepted: Orders Allergies As of Date: 05/10/2025 Noted Allergy Reaction AMOXICILLIN-POT CLAVULANATE 12/23/2023 10 - Anaphylaxis 7 - Swelling DOXYCYCLINE 11/09/2024 16 - Unknown LISINOPRIL 04/24/2023 3 - Cough SULFAMETHOXAZOLE-TRIM ETHOPRIM 10/20/2009 2 - Rash 4 - Hives 7 - Swelling TRIMETHOPRIM 09/04/2023 7 - Swelling Date Reviewed: 04/26/2025 Reviewed by: Nikolai Nazario DO - Fully Assessed Reason for Visit: Medication Request [138] Cmt: Viagra Order(s):sildenafil (VIAGRA) 100 mg tabletTake 1 tablet by mouth once daily as needed.Disp: 10 tabletRfl: 10 Prescriptions as of 05/11/2025 - sildenafil (VIAGRA) 100 mg tablet Take 1 tablet by mouth once daily as needed. - traZODone (DESYREL) 100 mg tablet Take 1 tablet by mouth at bedtime as needed (sleep). Okay to take one-half of a tablet if feeling too sedated in the morning. - mirtazapine (REMERON) 15 mg tablet Take 1.5 tablets by mouth daily at bedtime. - dulaglutide (TRULICITY) 4.5 mg/0.5 mL pen injector Inject 4.5 mg subcutaneously one time a week. - evolocumab 140 mg/mL subcutaneous pen injector (REPATHA SURECLICK) Inject 140 mg subcutaneously every 2 weeks. - albuterol HFA (PROVENTIL HFA, VENTOLIN HFA) [...] 1 tablet by mouth once daily. - spironolactone (ALDACTONE) 25 mg tablet Take [...] three times a day as needed. - ezetimibe (ZETIA) 10 mg tablet Take 1 tablet by mouth once daily. - fluticasone (FLONASE) 50 mcg/actuation nasal spray Use 1 spray in each nostril daily at bedtime. - aspirin, enteric coated (ASPIRIN, ENTERIC COATED) 81 mg EC tablet Take 1 tablet by mouth once daily. - magnesium, aluminum hydroxide (MYLANTA ORAL) Take 5 mL by mouth two times a day as needed (heartburn). Meds Comments as of 10/23/2023: 10/23/23 The medications are managed by this patient by: PATIENT OPHELIA Crooks Problem List As Of Date 05/10/2025 Noted Resolved CAD (coronary artery disease) [I25.10] [...] of both eyes [H52.4] 10/23/2023 Mood disorder [F39] 11/02/2023 04/26/2025 Acute systolic HF (heart failure) (HCC) [I50.21]04/13/2024 01/19/2025 Acute on chronic systolic (congestive) h (more content not included)... Normal [facility] 04-27-2025 CNPN Telephone (AGINTMAC) VENKAT MARSH ([id number]) 1965 M Date Time Provider Department 04/27/25 NIKOLAI NAZARIO [facility] [place] [facility] During your visit today, we recorded the following information about you: Kathia Hoover 04/27/2025 9:51 AM Signed Referral was faxed to [facility] on April 27, 2025. Confirmation of fax was received on April 27, 2025. Allergies As of Date: 04/27/2025 Noted Allergy Reaction AMOXICILLIN-POT CLAVULANATE 12/23/2023 10 - Anaphylaxis 7 - Swelling DOXYCYCLINE 11/09/2024 16 - Unknown LISINOPRIL 04/24/2023 3 - Cough SULFAMETHOXAZOLE-TRIM ETHOPRIM 10/20/2009 2 - Rash 4 - Hives 7 - Swelling TRIMETHOPRIM 09/04/2023 7 - Swelling Date Reviewed: 04/26/2025 Reviewed by: Nikolai Nazario DO - Fully Assessed Reason for Visit: Referral Information [[id number]] Cmt: Nephrology Prescriptions as of 04/27/2025 - traZODone (DESYREL) 100 mg tablet Take 1 tablet by mouth at bedtime as needed (sleep). Okay to take one-half of a tablet if feeling too sedated in the morning. - mirtazapine (REMERON) 15 mg tablet Take 1.5 tablets by mouth daily at bedtime. - dulaglutide (TRULICITY) 4.5 mg/0.5 mL pen injector Inject 4.5 mg subcutaneously one time a week. - cefUROXime (CEFTIN) 500 mg tablet Take 1 tablet by mouth two times a day for 5 days. - azithromycin (ZITHROMAX) 250 mg tablet Take 2 tablets by mouth once daily for 1 day, THEN 1 tablet once daily for 4 days. - evolocumab 140 mg/mL subcutaneous pen injector (REPATHA SURECLICK) Inject 140 mg subcutaneously every 2 weeks. - albuterol HFA (PROVENTIL HFA, VENTOLIN HFA) [...] 1 tablet by mouth once daily. - spironolactone (ALDACTONE) 25 mg tablet Take [...] three times a day as needed. - ezetimibe (ZETIA) 10 mg tablet Take 1 tablet by mouth once daily. - fluticasone (FLONASE) 50 mcg/actuation nasal spray Use 1 spray in each nostril daily at bedtime. - aspirin, enteric coated (ASPIRIN, ENTERIC COATED) 81 mg EC tablet Take 1 tablet by mouth once daily. - magnesium, aluminum hydroxide (MYLANTA ORAL) Take 5 mL by mouth two times a day as needed (heartburn). Meds Comments as of 10/23/2023: 10/23/23 The medications are managed by this patient by: PATIENT OPHELIA Crooks Problem List As Of Date 04/27/2025 Noted Resolved CAD (coronary artery disease) [I25.10] [...] (HCC) [F*09/10/2023 11/02/2023 Cocaine dependence in remission ([facility]) [F14.21] 09/10/2023 Hypothyroidism [E03.9] Diabetes mellitus ([facility]) [E11.9] Cataract, nuclear sclerotic, both eyes [H25.13] 10/23/2023 Hyperopia of both eyes [H52.03] 10/23/2023 Regular astigmatism of both eyes [H52.223] 10/23/2023 Presbyopia of both eyes [H52.4] 10/23/2023 Mood disorder [F39] 11/02/2023 04/26/2025 Acute systolic HF (heart failure) (HCC) [I50.21]04/13/2024 01/19/2025 Acute on chronic systolic (congestive) heart fa*04/13/2024 04/15/2024 Atrial fib/flutter, transient (HCC) [I48.91, I4*04/14/2024 Mixed hyperlipidemia [E78.2] 04/14/2024 01/19/2025 Morbid obesity (HCC) [E66.01] 04/14/2024 Essential hypertension [I10] 04/14/2024 01/19/2025 Chronic HFrEF (heart failure with reduced eject*04/14/2024 01/19/2025 Typical atrial flutter (HCC) [I48.3] 04/15/2024 Non-compliant patient [Z91.199] Bipolar 1 disorder (HCC) [F31.9] 01/19/2025 Obesity, Class III, BMI >= 40 [E66.813] 01/19/2025 Drug-induced erectile dysfunction [N52.2] 03/28/2025 (more content not included)... Normal [facility] CNOVon 04-26-2025 CNOV Office Visit (AGINTMAC) VENKAT MARSH ([id number]) 1965 M Date Time Provider Department 04/26/25 2:20 PM NIKOLAI NAZARIO AGINTMAC During your visit today, we recorded the following information about you: Temperature Pulse Respiration Blood pressure 97.9 degrees 90/minute 18/minute 90/62 Weight Height 125.2 kg 1.702 m Nikolai Nazario DO 04/26/2025 3:36 PM Signed Nikolai Nazario DO Board Certified Internal Medicine, Lipidology, Metabolic Medicine and Lifestyle Medicine [facility] Recording using ambient [employer] software for draft documentation of the visit was discussed with the patient/authorized bank representative; all questions welcomed and answered. Patient/authorized bank representative agreed to proceed Date of Evaluation: 04/26/2025 Patient Name: Venkat Marsh : 1965 AGE: [age] year old Race: White Sex: male ASSESSMENT/PLAN: 1. Hypercholesteremia - ICD9: 272.0, ICD10: E78.00 (primary diagnosis) - Continue with Repatha and recheck lipids at next OV 2. Mood disorder - ICD9: 296.90, ICD10: F39 - Controlled - Continue current medications 3. Insomnia, unspecified type - ICD9: 780.52, ICD10: G47.00 - TRAZODONE 100 MG TABLET 4. Anxiety - ICD9: 300.00, ICD10: F41.9 - Controlled - Continue current medications 5. Type 2 diabetes mellitus with diabetic microalbuminuria, with long-term current use of insulin (HCC) - ICD9: 250.40, 791.0, V58.67, ICD10: E11.29, R80.9, Z79.4 - Continue current medications - Counseled on healthy diet and regular exercise - Discussed need for and benefit of weight loss. BMI 43.23 kg/(m2) - Smoking cessation encouraged; discussed risks to health and quitting strategies. Patient is contemplative - DULAGLUTIDE 4.5 MG/0.5 ML SUBCUTANEOUS PEN INJECTOR 6. Hypothyroidism, unspecified type - ICD9: 244.9, ICD10: E03.9 - Instructed patient on importance of taking on an empty stomach either first thing in the morning or at bedtime. - continue current dose of Synthroid 7. Bipolar 1 disorder (HCC) - ICD9: 296.7, ICD10: F31.9 - MIRTAZAPINE 15 MG TABLET 8. Elevated lipoprotein(a) - ICD9: 272.8, ICD10: E78.41 - Continue with Repatha and recheck lipids at next OV 9. CKD stage G3a/A3, GFR 45-59 and albumin creatinine ratio >300 mg/g (HCC) - ICD9: 585.3, ICD10: N18.31 - eGFR: 58 Worsening - Albuminuria: 299 - Counseled on avoiding NSAIDs, adequate hydration - Counseled on low sodium diet - Follow up with kidney medicine - CONSULT TO NEPHROLOGY 10. Cigarette smoker - ICD9: 305.1, ICD10: F17.210 - Cessation encouraged. - Physiologic and physical aspects of tobacco addiction as well as strategies for quitting were discussed. - Counseling was given focusing on the harmful effects of this addiction especially given the patient's medical condition(s) which will be worsened because of the chemicals in tobacco. 11. type 2 diabetes mellitus with hyperglycemia (HCC) - ICD9: 250.02, ICD10: E11.65 12. Primary hypertension - ICD9: 401.9, ICD10: I10 - Controlled - Continue current medications - Recommend home blood pressure monitoring, to bring results to next visit - Encouraged sodium restriction, DASH or Mediterranean diet - Recommend regular aerobic exercise 13. Coronary artery disease involving [place] coronary artery of [place] heart without angina pectoris - ICD9: 414.01, ICD10: I25.10 - Continue with aggressive control of risk factors 14. BMI 40.0-44.9, adult (HCC) - ICD9: V85.41, ICD10: Z68.41 Weight decreasing - Increase strength of GLP1 RA 15. Screening for diabetic retinopathy - ICD9: V80.2, ICD10: Z13.5 - CONSULT TO OPHTHALMOLOGY 16. Acute cough - ICD9: 786.2, ICD10: R05.1 - Suspect developing CAP - XR CHEST 2V FRONTAL/LAT - CEFUROXIME AXETIL 500 MG TABLET - AZITHROMYCIN 250 MG TABLET 17. ELBERT (obstructive sleep apnea) - ICD9: 327.23, ICD10: G47.33 - HOME SLEEP APNEA TEST (HSAT) Return in about 4 months (around 08/26/2025). Discussed the above with the patient using shared decision making. The patient is in agreement with the diagnostic and treatment plans. Patient to follow-up as advised or sooner if problem worsens or does not resolve. Nikolai Nazario, DO Subjective Venkat Marsh is a 59-year-old male with a history of ELBERT, DM, and CAD, presenting with chest tightness and requesting medication refills. Venkat reports experiencing chest tightness over the past 2 days, described as a sensation of a pulled muscle localized to the left side near the third rib. The tightness is exacerbated by inhalation and is not present during exhalation. He denies dyspnea, but notes a mild cough without sputum production. He questions whether the chest tightness could be related to coughing or sneezing, but does not believe it feels like a muscle strain. He also mentions a recent Repatha in (more content not included)... Normal [facility] XR CHEST 2V FRONTAL/LATon XR CHEST 2V FRONTAL/LAT * * *Final Repor t* * * DATE OF EXAM: Apr 26 2025 4:01PM [id number] - XR CHEST 2V FRONTAL/LAT / PROCEDURE REASON: Acute cough * * * * Physician Interpretation * * * * EXAMINATION: CHEST RADIOGRAPH (2 VIEW FRONTAL and LATERAL) CLINICAL HISTORY: Acute cough MQ: [id number] EXAM DATE/TIME: 04/26/2025 4:01 PM COMPARISON: 04/13/2024 RESULT: Lines, tubes, and devices: None. Lungs and pleura: No consolidation. No lung mass. No pleural effusion. No pneumothorax. Cardiomediastinal silhouette: Normal cardiomediastinal silhouette. Bones and soft tissues: Unremarkable. IMPRESSION: No acute radiographic abnormality. Outbound Sales Professional: PSCB Transcribe Date/Time: Apr 28 2025 8:25A Dictated by : BAKARI SANCHEZ MD This examination was interpreted and the report reviewed and electronically signed by: BAKARI SANCHEZ MD on Apr 28 2025 8:26AM EST [id number] N Normal [facility] CNPNon 04-13-2025 CNPN Telephone (MNOPRX) VENKAT MARSH ([id number]) 1965 M Date Time Provider Department 04/13/25 TIBURCIO CASTRO [facility] During your visit today, we recorded the following information about you: Tiburcio Castro, RN 04/13/2025 11:03 AM Signed Ambulatory Pharmacy Prior Authorization Note Provider Intervention Required?: No - Pharmacy completed on your behalf. Was the PA documented within the ePA workqueue?: Yes Drug: REPATHA View the status history of the prior authorization in the Auth Tab within Chart Review Additional Information: See Auth Tab under chart review for more details. For questions relating to this submission, please contact [facility] at [phone] Allergies As of Date: 04/13/2025 Noted Allergy Reaction AMOXICILLIN-POT CLAVULANATE 12/23/2023 10 - Anaphylaxis 7 - Swelling DOXYCYCLINE 11/09/2024 16 - Unknown LISINOPRIL 04/24/2023 3 - Cough SULFAMETHOXAZOLE-TRIM ETHOPRIM 10/20/2009 2 - Rash 4 - Hives 7 - Swelling TRIMETHOPRIM 09/04/2023 7 - Swelling Date Reviewed: 04/11/2025 Reviewed by: Opal Beltran MA - Fully Assessed Reason for Visit: Insurance Authorization [[id number]] Prescriptions as of 04/13/2025 - evolocumab 140 mg/mL subcutaneous pen injector (REPATHA SURECLICK) Inject 140 mg subcutaneously every 2 weeks. - dulaglutide (TRULICITY) 3 mg/0.5 mL pen [...] Give with each insulin administration. - Insulin [place], Disposable, (PEN NEEDLE) 32 gauge x 5/32 Inject 1 Each subcutaneously every 24 hours. Give with each insulin administration. - magnesium, aluminum hydroxide (MYLANTA ORAL) Take 5 mL by mouth two times a day as needed (heartburn). Meds Comments as of 10/23/2023: 10/23/23 The medications are managed by this patient by: PATIENT OPHELIA Crooks Problem List As Of Date 04/13/2025 Noted Resolved CAD (coronary artery disease) [I25.10] [...] astigmatism of both eyes [H52.223] 10/23/2023 Presbyopia (more content not included)... Normal [facility] CNPN Telephone (AGCARDPOB ) VENKAT MARSH ([id number]) 1965 M Date Time Provider Department 04/13/25 NATALI ALBERTS [employer] During your visit today, we recorded the following information about you: Sandra Abbasi LPN 04/13/2025 11:26 AM Signed Received message from [employer] stating Annabel booker has been approved; authorization good until 09/20/2025. 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 - dulaglutide (TRULICITY) 3 mg/0.5 mL pen [...] Give with each insulin administration. - Insulin [place], Disposable, (PEN NEEDLE) 32 gauge x 5/32 Inject 1 Each subcutaneously every 24 hours. Give with each insulin administration. - magnesium, aluminum hydroxide (MYLANTA ORAL) Take 5 mL by mouth two times a day as needed (heartburn). Meds Comments as of 10/23/2023: 10/23/23 The medications are managed by this patient by: PATIENT OPHELIA Crooks Problem List As Of Date 04/13/2025 Noted Resolved CAD (coronary artery disease) [I25.10] [...] (HCC) [I48.91, I4*04/14/2024 Mixed hyperlipidemia [E78.2] 04/14/2024 01/19/2025 (more content not included)... Normal [facility] CNOVon 04-11-2025 CNOV Office Visit (AGCARDPOB) VENKAT MARSH ([id number]) 1965 M Date Time Provider Department 04/11/25 3:20 PM NATALI ALBERTS AGCARDPOB During your visit today, we recorded the following information about you: Pulse Blood pressure Weight 90/minute 105/79 127 kg Natali Alberts MD 04/11/2025 4:01 PM Signed Chief Complaint No chief complaint on file. History of Present Illness: Venkat Marsh is a 59-year-old male with a history of ischemic heart disease, prior PCI to the LAD, T2DM, hypertension, hyperlipidemia, sleep apnea, morbid obesity (BMI 45), and bipolar disorder, presenting for follow-up. The patient reports dyspnea, which he attributes to ongoing tobacco use. He denies experiencing angina, palpitations, syncope, or significant lower extremity edema, though he notes mild swelling after prolonged sitting or driving. He does not use nitroglycerin. He reports erectile dysfunction and a low energy level. He has tried sildenafil without success and inquires about testosterone therapy, noting a recent testosterone level of 339 ng/dL. He has not been taking his cholesterol medications due to severe cramps associated with statins. He is unsure if he is currently taking Zetia. He has a history of smoking and continues to smoke, despite previous claims of cessation. He denies alcohol use. He plans to travel to the [facility] from October 31 to November 28 and expresses a desire for a good bill of health before his trip. He is currently taking his prescribed cardiac medications, except for the cholesterol medications. PAST MEDICAL HISTORY Diagnosis Date Acute congestive heart failure, unspecified heart failure type ([facility]) Bipolar 1 disorder ([facility]) psychiatry in [place] CAD S/P percutaneous coronary angioplasty 2011 AR PCI to LAD in 2011. Dr. Ponce CHF (congestive heart failure) ([facility]) Diabetes mellitus ([facility]) History of acute myocardial infarction HTN (hypertension) Hypercholesteremia Hypothyroidism Morbid obesity with BMI of 45.0-49.9, adult ([facility]) Non-compliant patient ELBERT (obstructive sleep apnea) Tobacco [...] 1996 THYROIDECTOMY SUBTOTAL/PARTIAL Right 08/2008 TONSILLECTOMY PRIMARY/SECONDARY Tonsillectomy FAMILY HISTORY Problem Relation Age of Onset Cancer Mother uterine No Known Problems Brother other (depression) Maternal Grandmother Social History Tobacco Use Smoking status: Every Day Current packs/day: 0.50 Average packs/day: 0.5 packs/day for 41.0 years (20.5 ttl pk-yrs) Types: Cigarettes Start date: 04/21/2023 Smokeless tobacco: Never Vaping Use Vaping status: Never Used Substance Use Topics Alcohol use: No Drug use: No ALLERGIES Allergen Reactions Amoxicillin-Pot Cla* Anaphylaxis, Swelling Doxycycline Unknown Lisinopril Cough Sulfamethoxazole-Tr* Rash, Hives, Swelling Trimethoprim Swelling Medications: Current Outpatient Medications Medication Sig Dispense Refill dulaglutide (TRULICITY) 3 mg/0.5 mL pen injector Inject 3 mg subcutaneously one time a week. 2 mL 2 albuterol HFA (PROVENTIL HFA, VENTOLIN HFA) 90 mcg/actuation inhaler Inhale 2 puffs as instructed every 4 hours as needed for wheezing/shortness of breath. 1 each 3 metFORMIN (GLUCOPHAGE) 1,000 mg tablet Take 1 tablet by mouth two times a day. 180 tablet 3 levothyroxine (SYNTHROID) 125 mcg tablet Take 1 tablet by mouth daily before breakfast. 90 tablet 3 insulin glargine 100 unit/mL (3 mL) Inject 20 Units subcutaneously daily at bedtime. 18 mL 3 metoprolol succinate ER (TOPROL XL) 25 mg 24 hr tablet Take 1 tablet by mouth once daily. 90 tablet 3 mirtazapine (REMERON) 15 mg tablet Take 1.5 tablets by mouth daily at bedtime. 45 tablet 3 traZODone (DESYREL) 100 mg tablet Take 1 tablet by mouth at bedtime as needed (sleep). Okay to take one-half of a tablet if feeling too sedated in the morning. 30 tablet 2 spironolactone (ALDACTONE) 25 mg tablet Take 25 [...] capsule Take 25 mg by mouth three ti (more content not included)... Normal [facility] ECG B/O W INTERP (MED OFFICE )on 04-11-2025 Normal sinus rhythm first-degree AV block right axis deviation anterolateral large AR nonspecific ST-T changes IVCD [facility] 04-07-2025 SOY Telephone (AGRallyhood) VENKAT MARSH ([id number]) 1965 M Date Time Provider Department 04/07/25 NIKOLAI NAZARIOMAC During your visit today, we recorded the following information about you: Frieda Garza 04/07/2025 11:54 AM Signed Patient called regarding his testosterone lab levels. He stated he googled and saw that his levels are supposed to be in the 800's. He wanted to know if insurance would cover testosterone therapy. I told him this is something he would have to check with the insurance about, that we wouldn't be able to tell him. I did tell him, however, the doctor has not gotten a chance to review the lab results. But that we would call him once we have an update for those. rFieda Garza, Assistant Hall Director April 07, 2025 11:35 AM Nikolai Nazario, 04/18/2025 9:45 AM Signed Addended by: NIKOLAI NAZARIO on: 04/18/2025 09:45 AM Modules accepted: Bakari Robbins 04/18/2025 10:59 AM Signed Patient has been made aware that the referral was placed. Patient also mentioned about his Psych medications that he has not been able to get refilled due to the provider no longer being in that office. Made him aware that he will need to reach out to them to see who he was getting transferred to and make them aware that he needs refills. 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 - dulaglutide (TRULICITY) 3 mg/0.5 mL pen [...] Give with each insulin administration. - Insulin [place], Disposable, (PEN NEEDLE) 32 gauge x 5/32 Inject 1 Each subcutaneously every 24 hours. Give with each insulin administration. - magnesium, aluminum hydroxide (MYLANTA ORAL) Take 5 mL by mouth two times a day as needed (heartburn). Meds Comments as of 10/23/2023: 10/23/23 The medications are managed by this patient by: PATIENT OPHELIA Crooks Problem List As Of Date 04/07/2025 Noted Resolved CAD (coronary artery disease) [I25.10] 09/04/2014 S/P coronary artery stent placement [Z95.5] 09/04/2014 Left bundle branch block (L (more content not included)... Normal [facility] ALBUMIN/CREATININE RATIO, UR INEon 03-31-2025 Albumin DL <= 20 mg/L (U) [Mass/Vol] 689.4 mg/L Normal [facility] Comment on above: Order Comment: Speci men Type: URINE SPECIMENOrdering Facility: [facility] Address: [address] [place] [address] Performed By: #### U ACR ####[facility] [id number] [place] [address] [place] Albumin/Creatinine (U) [Mass ratio] 299 mg/g High <30 [facility] Comment on above: Order Comment: Speci men Type: URINE SPECIMENOrdering Facility: [facility] Address: [address] [place] [address] Result Comment: Adul t Male and Female Nephrotic Criteria: <30 mg/g is considered normal to mildly increased 30-300 mg/g is considered moderately increased >300 mg/g is considered severely increased KDIGO. (2013). KDIGO 2012 Clinical Practice Guideline for the Evaluation and Management of Chronic Kidney Disease. Official Journal of the International Society of Nephrology, 3(1), 1-150. Performed By: #### U ACR ####[facility] LABCLIA [id number] [place] [address] [place] Creatinine (U) [Mass/Vol] 230.5 mg/dL Normal 20.0-300.0 [facility] Comment on above: Order Comment: Speci men Type: URINE SPECIMENOrdering Facility: [facility] Address: [address] [place] [address] Performed By: #### U ACR ####[facility]CLIA [id number] [place] [address] [place] CBC W Auto Differential pane l (Bld)on 03-31-2025 Basophils (Bld) [#/Vol] 10*3/uL Normal <0.11 [facility] Comment on above: Order Comment: Speci men Type: BLOOD SPECIMEN [facility] Address: [address] [place] [address] Performed By: #### 5 8410-2 #### [facility] CLIA [id number] [address] [place] [address] [place] Basophils/100 WBC (Bld) 0.2 % Normal [facility] Comment on above: Order Comment: Speci men Type: BLOOD SPECIMEN [facility] Address: [address] [place] [address] Performed By: #### 5 8410-2 #### [facility] CLIA [id number] [address] [place] [address] [place] Differential cell count method Nom (Bld) Auto Normal [facility] Comment on above: Order Comment: Speci men Type: BLOOD SPECIMEN [facility] Address: [address] [place] [address] Performed By: #### 5 8410-2 #### [facility] CLIA [id number] [address] [place] [address] [place] Eosinophils (Bld) [#/Vol] 0.54 10*3/uL High <0.46 [facility] Comment on above: Order Comment: Speci men Type: BLOOD SPECIMEN [facility] Address: [address] [place] [address] Performed By: #### 5 8410-2 #### [facility] CLIA [id number] [address] [place] [address] [place] Eosinophils/100 WBC (Bld) 6.0 % Normal [facility] Comment on above: Order Comment: Speci men Type: BLOOD SPECIMEN [facility] Address: [address] [place] [address] Performed By: #### 5 8410-2 #### [facility] CLIA [id number] [address] [place] [address] [place] Erythrocyte distribution width (RBC) [Ratio] 14.0 % Normal 11.5-15.0 [facility] Comment on above: Order Comment: Speci men Type: BLOOD SPECIMEN [facility] Address: [address] [place] [address] Performed By: #### 5 8410-2 #### [facility] CLIA [id number] [address] [place] [address] [place] Hematocrit (Bld) [Volume fraction] 55.4 % High 39.0-51.0 [facility] Comment on above: Order Comment: Speci men Type: BLOOD SPECIMEN [facility] Address: [address] [place] [address] Performed By: #### 5 8410-2 #### [facility] CLIA [id number] [address] [place] [address] [place] Hemoglobin (Bld) [Mass/Vol] 18.7 g/dL High 13.0-17.0 [facility] Comment on above: Order Comment: Speci men Type: BLOOD SPECIMEN [facility] Facility[facility] Address: [address] [place] [address] Performed By: #### 5 8410-2 #### [facility] CLIA [id number] [address] [place] [address] [place] Immature granulocytes (Bld) [#/Vol] 10*3/uL Normal <0.10 [facility] Comment on above: Order Comment: Speci men Type: BLOOD SPECIMEN [facility] Address: [address] [place] [address] Performed By: #### 5 8410-2 #### [facility] CLIA [id number] [address] [place] [address] [place] Immature granulocytes/100 WBC (Bld) 0.2 % Normal [facility] Comment on above: Order Comment: Speci men Type: BLOOD SPECIMEN [facility] Address: [address] [place] [address] Performed By: #### 5 8410-2 #### [facility] CLIA [id number] [address] [place] [address] [place] Lymphocytes (Bld) [#/Vol] 3.92 10*3/uL Normal 1.00-4.00 [facility] Comment on above: Order Comment: Speci men Type: BLOOD SPECIMEN [facility] Address: [address] [place] [address] Performed By: #### 5 8410-2 #### [facility] CLIA [id number] [address] [place] [address] [place] Lymphocytes/100 WBC (Bld) 43.5 % Normal [facility] Comment on above: Order Comment: Speci men Type: BLOOD SPECIMEN [facility] Address: [address] [place] [address] Performed By: #### 5 8410-2 #### [facility] CLIA [id number] [address] [place] [address] [place] MCH (RBC) [Entitic mass] 30.6 pg Normal 26.0-34.0 [facility] Comment on above: Order Comment: Speci men Type: BLOOD SPECIMEN [facility] Address: [address] [place] [address] Performed By: #### 5 8410-2 #### [facility] CLIA [id number] [address] [place] [address] [place] MCHC (RBC) [Mass/Vol] 33.8 g/dL Normal 30.5-36.0 [facility] Comment on above: Order Comment: Speci men Type: BLOOD SPECIMEN [facility] Address: [address] [place] [address] Performed By: #### 5 8410-2 #### [facility] CLIA [id number] [address] [place] [address] [place] MCV (RBC) [Entitic vol] 90.7 fL Normal 80.0-100.0 [facility] Comment on above: Order Comment: Speci men Type: BLOOD SPECIMEN [facility] Address: [address] [place] [address] Performed By: #### 5 8410-2 #### [facility] CLIA [id number] [address] [place] [address] [place] Monocytes (Bld) [#/Vol] 0.85 10*3/uL Normal <0.87 [facility] Comment on above: Order Comment: Speci men Type: BLOOD SPECIMEN [facility] Address: [address] [place] [address] Performed By: #### 5 8410-2 #### [facility] CLIA [id number] [address] [place] [address] [place] Monocytes/100 WBC (Bld) 9.4 % Normal [facility] Comment on above: Order Comment: Speci men Type: BLOOD SPECIMEN [facility] Address: [address] [place] [address] Performed By: #### 5 8410-2 #### [facility] CLIA [id number] [address] [place] [address] [place] Neutrophils (Bld) [#/Vol] 3.66 10*3/uL Normal 1.45-7.50 [facility] Comment on above: Order Comment: Speci men Type: BLOOD SPECIMEN [facility] Address: [address] [place] [address] Performed By: #### 5 8410-2 #### [facility] CLIA [id number] [address] [place] [address] [place] Neutrophils/100 WBC (Bld) 40.7 % Normal [facility] Comment on above: Order Comment: Speci men Type: BLOOD SPECIMEN [facility] Address: [address] [place] [address] Performed By: #### 5 8410-2 #### [facility] CLIA [id number] [address] [place] [address] [place] Nucleated RBC (Bld) [#/Vol] 10*3/uL Normal <0.01 [facility] Comment on above: Order Comment: Speci men Type: BLOOD SPECIMEN [facility] Address: [address] [place] [address] Performed By: #### 5 8410-2 #### [facility] CLIA [id number] [address] [place] [address] [place] Nucleated RBC/100 WBC (Bld) [Ratio] 0.0 /100 WBC Normal [facility] Comment on above: Order Comment: Speci men Type: BLOOD SPECIMEN [facility] Address: [address] [place] [address] Performed By: #### 5 8410-2 #### [facility] CLIA [id number] [address] [place], [place] [id number] [place] Platelet mean volume (Bld) [Entitic vol] 11.0 fL Normal 9.0-12.7 [facility] Comment on above: Order Comment: Speci men Type: BLOOD SPECIMEN [facility] Address: [address] [place] [address] Performed By: #### 5 8410-2 #### [facility] CLIA [id number] [address] [place] [address] [place] Platelets (Bld) [#/Vol] 223 10*3/uL Normal 150-400 [facility] Comment on above: Order Comment: Speci men Type: BLOOD SPECIMEN [facility] Address: [address] [place] [address] Performed By: #### 5 8410-2 #### [facility] CLIA [id number] [address] [place] [address] [place] RBC (Bld) [#/Vol] 6.11 10*6/uL High 4.20-6.00 [facility] Comment on above: Order Comment: Speci men Type: BLOOD SPECIMEN [facility] Address: [address] [place] [address] Performed By: #### 5 8410-2 #### [facility] CLIA [id number] [address] [place], [place] [id number] [place] WBC (Bld) [#/Vol] 9.01 10*3/uL Normal 3.70-11.00 [facility] Comment on above: Order Comment: Speci men Type: BLOOD SPECIMEN [facility] Address: [address] [place] [address] Performed By: #### 5 8410-2 #### [facility] CLIA [id number] [address] [place] [address] [place] Comprehensive metabolic 2000 panelon 03-31-2025 Albumin [Mass/Vol] 4.1 g/dL Normal 3.9-4.9 [facility] Comment on above: Order Comment: Speci men Type: BLOOD SPECIMEN [facility] Address: [address] [place] [address] Performed By: #### 5 8410-2 #### [facility] CLIA [id number] [address] [place] [address] [place] ALP [Catalytic activity/Vol] 55 U/L Normal 38-113 [facility] Comment on above: Order Comment: Speci men Type: BLOOD SPECIMEN [facility] Address: [address] [place] [address] Performed By: #### 5 8410-2 #### [facility] CLIA [id number] [address] [place] [address] [place] ALT [Catalytic activity/Vol] 26 U/L Normal 10-54 [facility] Comment on above: Order Comment: Speci men Type: BLOOD SPECIMEN [facility] Address: [address] [place] [address] Performed By: #### 5 8410-2 #### [facility] CLIA [id number] [address] [place] [address] [place] Anion gap [Moles/Vol] 15 mmol/L Normal 8-15 [facility] Comment on above: Order Comment: Speci men Type: BLOOD SPECIMEN [facility] Address: [address] [place] [address] Performed By: #### 5 8410-2 #### [facility] CLIA [id number] [address] [place] [address] [place] AST [Catalytic activity/Vol] 27 U/L Normal 14-40 [facility] Comment on above: Order Comment: Speci men Type: BLOOD SPECIMEN [facility] Address: [address] [place] [address] Performed By: #### 5 8410-2 #### [facility] CLIA [id number] [address] [place] [address] [place] Bilirubin [Mass/Vol] 0.3 mg/dL Normal 0.2-1.3 [facility] Comment on above: Order Comment: Speci men Type: BLOOD SPECIMEN [facility] Address: [address] [place] [address] Performed By: #### 5 8410-2 #### [facility] CLIA [id number] [address] [place] [address] [place] Calcium [Mass/Vol] 10.0 mg/dL Normal 8.5-10.2 [facility] Comment on above: Order Comment: Speci men Type: BLOOD SPECIMEN [facility] Address: [address] [place] [address] Performed By: #### 5 8410-2 #### [facility] CLIA [id number] [address] [place] [address] [place] Chloride [Moles/Vol] 101 mmol/L Normal 98-107 [facility] Comment on above: Order Comment: Speci men Type: BLOOD SPECIMEN [facility] Address: [address] [place] [address] Performed By: #### 5 8410-2 #### [facility] CLIA [id number] [address] [place] [address] [place] CO2 [Moles/Vol] 23 mmol/L Normal 22-30 [facility] Comment on above: Order Comment: Speci men Type: BLOOD SPECIMEN [facility] Address: [address] [place] [address] Performed By: #### 5 8410-2 #### [facility] CLIA [id number] [address] [place] [address] [place] Creatinine [Mass/Vol] 1.38 mg/dL High 0.73-1.22 [facility] Comment on above: Order Comment: Jazmin jolley Type: BLOOD SPECIMEN [facility] Address: [address] [place] [address] Performed By: #### 5 8410-2 #### [facility] CLIA [id number] [address] [place] [address] [place] Creatinine and Glomerular filtration rate.predicted panel (S/P/Bld) 58 mL/min/1.73m??? Low >=60 [facility] Comment on above: Order Comment: Jazmin jolley Type: BLOOD SPECIMEN [facility] Address: [address] [place] [address] Result Comment: Eli mated Glomerular Filtration Rate [...] reflect actual GFR. Performed By: #### 5 8410-2 #### [facility] CLIA [id number] [address] [place] [address] [place] Glucose [Mass/Vol] 101 mg/dL High 74-99 [facility] Comment on above: Order Comment: Jazmin jolley Type: BLOOD SPECIMEN [facility] Address: [address] [place] [address] Result Comment: The [place] [employer] (ADA) provides guidance for cutoff [...] Standards of Medical Care in Diabetes 2016, [place] [employer]. Diabetes Care. 2016.39(Suppl 1). Performed By: #### 5 8410-2 #### [facility] CLIA [id number] [address] [place] [address] [place] Potassium [Moles/Vol] 4.7 mmol/L Normal 3.7-5.1 [facility] Comment on above: Order Comment: Speci men Type: BLOOD SPECIMEN [facility] Address: [address] [place] [address] Performed By: #### 5 8410-2 #### [facility] CLIA [id number] [address] [place] [address] [place] Protein [Mass/Vol] 7.3 g/dL Normal 6.3-8.0 [facility] Comment on above: Order Comment: Speci men Type: BLOOD SPECIMEN [facility] Facility[facility] Address: [address] [place] [address] Performed By: #### 5 8410-2 #### [facility] CLIA [id number] [address] [place] [address] [place] Sodium [Moles/Vol] 139 mmol/L Normal 136-144 [facility] Comment on above: Order Comment: Speci men Type: BLOOD SPECIMEN [facility]ing Facility[facility] Address: [address] [place] [address] Performed By: #### 5 8410-2 #### [facility] CLIA [id number] [address] [place] [address] [place] Urea nitrogen [Mass/Vol] 11 mg/dL Normal 9-24 [facility] Comment on above: Order Comment: Speci men Type: BLOOD SPECIMEN [facility] Facility[facility] Address: [address] [place] [address] Performed By: #### 5 8410-2 #### [facility] CLIA [id number] [address] [place] [address] [place] HbA1c (Bld)on 03-31-2025 Average glucose Estimated from glycated hemoglobin (Bld) [Mass/Vol] 169 mg/dL Normal [facility] Comment on above: Order Comment: Jazmin jolley Type: BLOOD SPECIMEN Ordering Facility: [facility] Address: [address] [place] [address] Result Comment: eAG: (Estimated average glucose) is a calculated value from HgbA1c and is bank representative of the average blood glucose level in the last 2-3 month period. Performed By: #### 5 8410-2 #### [facility] CLIA [id number] [address] [place] [address] [place] [facility] HbA1c (Bld) [Mass fraction] 7.5 % High 4.3-5.6 [facility] Comment on above: Order Comment: Jazmin jolley Type: BLOOD SPECIMEN Ordering Facility: [facility] Address: [address] [place] [address] Result Comment: Amer ican Diabetes Association guidelines indicate that patients with HgbA1c in the range 5.7-6.4% are at increased risk for development of diabetes, and intervention by lifestyle modification may be beneficial. HgbA1c greater or equal to 6.5% is considered diagnostic of diabetes. Performed By: #### 5 8410-2 #### [facility] CLIA [id number] [address] [place] [address] [place] LIPID PANEL, NONFASTINGon Cholesterol [Mass/Vol] 195 mg/dL Normal <200 [facility] Comment on above: Order Comment: Jazmin jolley Type: BLOOD SPECIMEN Ordering Facility: [facility] Address: [address] [place] [address] Result Comment: <200 mg/dL, Desirable 200-239 mg/dL, Borderline high >239 mg/dL, High Performed By: #### 5 8410-2 #### [facility] CLIA [id number] [address] HDL CHOLESTEROL, NF 43 mg/dL Normal >39 [facility] Comment on above: Order Comment: Jazmin samreen Type: BLOOD SPECIMEN Ordering Facility: [facility] Address: [address] [place] [address] Result Comment: 40-5 9 mg/dL, Acceptable >59 mg/dL, High: Negative risk factor for coronary heart disease <40 mg/dL, Low: Positive risk factor for coronary heart disease Performed By: #### 5 8410-2 #### [facility] CLIA [id number] [address] [place] [address] LDL CHOLESTEROL CALCULATED, NF 122 mg/dL High <100 [facility] Comment on above: Order Comment: Jazmin samreen Type: BLOOD SPECIMEN Ordering Facility: [facility] Address: [address] [place] [address] Result Comment: <100 mg/dL, Optimal 100-129 mg/dL, Near optimal/above optimal 130-159 mg/dL, Borderline high 160-189 mg/dL, High >189 mg/dL, Very high Secondary prevention optimal LDL Cholesterol levels are recommended to be <70 mg/dL LDL cholesterol is calculated using the Bergeron-NIH equation. Performed By: #### 5 8410-2 #### [facility] CLIA [id number] [address] [place] [address] OF [facility] LDL/HDL RATIO, NF 2.84 mg/dL High <2.54 [facility] Comment on above: Order Comment: Margechad jolley Type: BLOOD SPECIMEN Ordering Facility: [facility] Address: [address] [place] [address] Result Comment: Refe jennifer: 1. National Cholesterol Education Program ATP III Guideline At-A-Glance Quick Desk Reference: National Heart, Lung, and Blood [place]. National Institutes of Health. 2001: NIH Publication No. 01-3305. 2. An International Atherosclerosis Society position paper: global recommendations for the management of dyslipidemia: executive summary, Atherosclerosis. 2014: 232(2):410-413. Performed By: #### 5 8410-2 #### [facility] CLIA [id number] [address] [place] [address] [place] NON HDL CHOL, NF 152 mg/dL High <130 [facility] Comment on above: Order Comment: Speci men Type: BLOOD SPECIMEN Ordering Facility: [facility] Address: [address] [place] [address] Result Comment: <130 mg/dL, Optimal 130-159 mg/dL, Near optimal/above optimal 160-189 mg/dL, Borderline high 190-219 mg/dL, High >219 mg/dL, Very high Secondary prevention optimal non HDL Cholesterol levels are recommended to be <100 mg/dL Performed By: #### 5 8410-2 #### [facility] CLIA [id number] [address] [place] [address] [place] T CHOL/HDL RATIO NF 4.53 mg/dL Normal <5.10 [facility] Comment on above: Order Comment: Speci men Type: BLOOD SPECIMEN Ordering Facility: [facility] Address: [address] [place] [address] Performed By: #### 5 8410-2 #### [facility] CLIA [id number] [address] [place] [address] [place] TRIGLYCERIDES, NF 171 mg/dL High <150 [facility] Comment on above: Order Comment: Speci men Type: BLOOD SPECIMEN Ordering Facility: [facility] Address: [address] [place] [address] Result Comment: <150 mg/dL, Normal 150-199 mg/dL, Borderline high 200-499 mg/dL, High >499 mg/dL, Very high Performed By: #### 5 8410-2 #### [facility] CLIA [id number] [address] [place] [address] [place] VLDL CHOLESTEROL, NF 30 mg/dL High <30 [facility] Comment on above: Order Comment: Speci men Type: BLOOD SPECIMEN Ordering Facility: [facility] Address: [address] [place] [address] Performed By: #### 5 8410-2 #### [facility] CLIA [id number] [address] [place] [address] [place] LPa SerPl-mCncon 03-31-2025 Lipoprotein a [Mass/Vol] 49 mg/dL High <30 [facility] Comment on above: Order Comment: Speci men Type: BLOOD SPECIMENOrdering Facility: [facility] Address: [address] [place] [address] Performed By: #### 1 0835-7 ####[facility] [id number] [address] NT[facility]proBNP [facility] Natriuretic peptide.B prohormone N-Terminal [Mass/Vol] 3089 pg/mL High <125 [facility] Comment on above: Order Comment: Speci men Type: BLOOD SPECIMEN Ordering Facility: [facility] Address: [address] [place] [address] Performed By: #### 5 8410-2 #### [facility] CLIA [id number] [address] [place] [address] [place] Testost SerPl-mCncon 025 Testosterone [Mass/Vol] 339 ng/dL Normal 193-824 C [facility] Comment on above: Order Comment: Speci men Type: BLOOD SPECIMEN Ordering Facility: [facility] Address: [address] [place] [address] Result Comment: A te stosterone level in the 193-320 ng/dL range with associated clinical symptoms is considered low and may indicate hypogonadism (from NEJM 2010 363:123-135). Results >320 ng/dL are considered normal. Performed By: #### 5 8410-2 #### [facility] CLIA [id number] [address] [place] [address] [place] CNPNon 03-28-2025 CNPN Telephone (INT[facility]) EVNKAT MARSH ([id number]) 1965 M Date Time Provider Department 03/28/25 NIKOLAI NAZARIO During your visit today, we recorded the following information about you: Nikolai Nazario DO 03/28/2025 5:00 PM Signed GENESIS questionnaire about symptoms of low testosterone (Androgen Deficiency in the Aging Male) This basic questionnaire can be very useful for men to describe the kind and severity of their low testosterone symptoms. 1. Do you have a decrease in sex drive? Yes 2. Do you have a lack of energy? Yes 3. Do you have a decrease in strength? Yes 4. Have you lost height? Yes 5. Have you noticed a decreased enjoyment of life Yes 6. Are you sad and/or grumpy? Yes 7. Are your erections less strong? Yes 8. Have you noticed a recent deterioration in your endurance? Yes 9. Are you falling asleep after dinner? Yes 10. Has there been a recent deterioration in your work performance? Yes Allergies As of Date: 03/28/2025 Noted Allergy Reaction AMOXICILLIN-POT CLAVULANATE 12/23/2023 10 - Anaphylaxis 7 - Swelling DOXYCYCLINE 11/09/2024 16 - Unknown LISINOPRIL 04/24/2023 3 - Cough SULFAMETHOXAZOLE-TRIM ETHOPRIM 10/20/2009 2 - Rash 4 - Hives 7 - Swelling TRIMETHOPRIM 09/04/2023 7 - Swelling Date Reviewed: 02/22/2025 Reviewed by: Bibiana Lozoya MA - Fully Assessed Prescriptions as of 03/28/2025 - dulaglutide (TRULICITY) 3 mg/0.5 mL pen [...] Give with each insulin administration. - Insulin Colfax, Disposable, (PEN NEEDLE) 32 gauge x 5/32 Inject 1 Each subcutaneously every 24 hours. Give with each insulin administration. - magnesium, aluminum hydroxide (MYLANTA ORAL) Take 5 mL by mouth two times a day as needed (heartburn). Meds Comments as of 10/23/2023: 10/23/23 The medications are managed by this patient by: PATIENT Calixto Latif, OA Problem List As Of Date 03/28/2025 Noted Resolved CAD (coronary artery disease) [I25.10] [...] Hyperopia of both eyes [H52.03] 10/23/2023 Regular a (more content not included)... Normal [facility] CNPN Telephone (AGINT[facility]) VENKAT MARSH ([id number]) 1965 M Date Time Provider Department 03/28/25 NIKOLAI NAZARIO During your visit today, we recorded the following information about you: Miky العراقي 03/28/2025 2:25 PM Signed ----- Message from Alejandra Jain sent at 03/28/2025 2:16 PM EDT ----- [facility]/ Nikolai Nazario/ Testerone test req Subject Line Format: [Specialty] / [Provider Name] / Requesting Labs Prior To Appointment Select Primary Department Name For Pool Routing Assistance: INTM AG ACC => AG INTM ACC APPT CTR JULIUS POOL [[id number]] ==== Patient: Venkat Marsh Date of : 1965 Primary Care Provider: Nikolai Nazario DO Patient is currently scheduled for an office visit on: 04/26/25. The patient is requesting to complete labs: Testerone Test prior to their appointment. The patient can be contacted at [phone] (home) [phone] (cell) with any additional needs/concerns regarding this request. Thank you, Alejandra Valderrama March 28, 2025 2:16 PM Miky العراقي 03/28/2025 2:26 PM Signed Patient is requesting a Testerone Test prior to his appointment 04/26. Miky العراقي, Assistant Hall Director March 28, 2025 2:26 PM Allergies As of Date: 03/28/2025 Noted Allergy Reaction AMOXICILLIN-POT CLAVULANATE 12/23/2023 10 - Anaphylaxis 7 - Swelling DOXYCYCLINE 11/09/2024 16 - Unknown LISINOPRIL 04/24/2023 3 - Cough SULFAMETHOXAZOLE-TRIM ETHOPRIM 10/20/2009 2 - Rash 4 - Hives 7 - Swelling TRIMETHOPRIM 09/04/2023 7 - Swelling Date Reviewed: 02/22/2025 Reviewed by: Bibiana Lozoya MA - Fully Assessed Reason for Visit: Orders [681] Primary Visit Diagnosis:Type 2 diabetes mellitus with diabetic microalbuminuria, with long-term current use of insulin (HCC) [E11.29, R80.9, Z79.4] Other Visit Diagnosis:Drug-induce d erectile dysfunction [N52.2] Order(s):TESTOSTERONE , TOTAL BY IMMUNOASSAY (ADULT MALES, OR INDIVIDUALS ON TESTOSTERONE THERAPY) [SQTESTO] Order #: [id number] FUTURE HEMOGLOBIN A1C [LEZVN4B] Order #: [id number] FUTURE Prescriptions as of 03/28/2025 - dulaglutide (TRULICITY) 3 mg/0.5 mL pen [...] Give with each insulin administration. - Insulin Colfax, Disposable, (PEN NEEDLE) 32 gauge x 5/32 Inject 1 Each subcutaneously every 24 hours. Give with each insulin administration. - magnesium, aluminum hydroxide (MYLANTA ORAL) Take 5 mL by mouth two times a day as needed (heartburn). Meds Comments as of 10/23/2023: 10/23/23 The medications are managed by this patient by: PATIENT OPHELIA Crooks Problem List As Of Date 03/28/2025 Noted Resolved CAD (coronary artery disease) [I25.10] 09/04/2014 S/P coronary artery (more content not included)... Normal [facility] Emergency Department Summary on 03-08-2025 Emergency Department Summary [facility] Medical Records Department [address] [place] [address] Emergency Department Summary 03/08/25 MR#: [id number] Acct: [id number] Name: VENKAT MARSH Rep #: [id number] : 1965 59 From: Maureen Gomez DO PCP: Care Physician,No Primary Status:REG ER Location: ED HPI History of Present Illness Chief Complaint: Upper Extremity Injury Informant: patient Narrative Narrative: Patient is a 59-year-old leelj-ptpc-apmywwdu male with history of ELBERT, CHF, hypertension, type 2 diabetes mellitus presenting with left wrist/forearm injury. [facility] with he accidentally karate chopped laundromat door with his left ulnar wrist/distal forearm. He states immediately had some pain but it was not terrible however as the night has gone on he is at increased pain. Anytime he tries to move his wrist he gets pain that shoots up into his hand specifically the 3rd through 5th fingers. He did not take any medication for his pain prior to arrival. Denies any numbness. States he is having hard time moving his hand and it feels swollen. No other complaints or concerns reported this time. Not on any blood thinners. No other injuries reported. [facility] Medical History Congestive heart failure (CHF) BMI [...] Rx aerosol inhaler (Ventolin HFA) Wheezing ##1 furosemide 20 mg tablet (Lasix) 20 mg PO DAILY 30 days #30 tabs Unknown Rx nystatin 100,000 unit/mL oral 5 ml PO 4X/DAY 14 days #280 mL 01/13 Unknown Rx suspension diphenhydramine HCl 25 mg tablet 25 mg PO TID PRN itching #30 tabs 01/06/25 Unknown Rx (Benadryl Allergy) loratadine 10 mg tablet 10 mg PO DAILY #30 tabs 01/06/25 U nknown Rx Allergy/AdvReac Type Severity Reaction Status Date / Time Sulfa (Sulfonamide Allergy Swelling Verified 03/08/25 03:14 Antibiotics) sulfamethoxazole (From Allergy Swelling Verified 03/08/25 03:14 Bactrim) trimethoprim (From Bactrim) Allergy Swelling Verified 03/08/25 03:14 Social History household members: none Smoking Status: Current every day smoker tobacco type: cigarettes ROS ROS ED Constitutional Constitutional ED: Denies chills or fever(s) Musculoskeletal Musculoskeletal: Reports other Details: Left wrist/distal forearm pain Integumentary Denies Abrasions or rash Neurologic Neurologic: Denies paresthesias or weakness Hematologic/Lymphatic Hematologic/Lymphatic : Denies easy bleeding or easy bruising EXAM Physical Exam Const Vital Signs: 03/08/25 03:15 Temperature 97.6 F L Temperature Source Oral Pulse Rate 84 Respiratory Rate 18 Blood Pressure 161/108 H Blood Pressure Mean 125 Pulse Ox 94 Oxygen Delivery Method Room Air Positive well nourished and well developed General Appearance ED: well developed and NAD Chest Wall inspection of chest normal Resp normal respiratory effort Cardio regular rate and regular rhythm Cardio Narrative: 2+ radial pulses present Extremity Extremity Narrative: No obvious deformity of the left upper extremity. No pinpoint area of reproducibility of pain. Does have mild diffuse pain of the distal ulna. No tenderness to palpation or deformity over the 4th or 5th metacarpals. When he gets episodes of shooting pain it radiates in the ulnar nerve distribution. Has some slight difficulty fully abducting all of his fingers but is able to do all of the other intrinsic hand movements including making an okay sign, making a fist, crossing his fingers and abducting the fingers. Sensation intact in all dermatomes. No tenderness at the anatomical snuffbox. No tenderness with palpation with range of motion of the elbow. No short arc range of motion pain of the wrist. Neuro oriented x3, no focal motor deficits and no sensory deficits noted Sensorium / Orientation: alert Motor Exam: muscle tone normal throughout Psych mental status grossly normal Skin Lesions: no lesions Rashes: no rashes MDM MDM MDM Narrative Medical decision making narrative: Patient evaluated for worsening left wrist pain that radiates to the 3rd through 5th (more content not included)... Normal [facility] Wrist min 3 Viewson 03-08-20 25 Wrist min 3 Views [facility] Imaging Services [address] [place], [place] [address] Wrist min 3 Views MR#: [id number] Acct: [id number] Name: VENKAT MARSH Rep #: [id number] : 1965 M 59 From: Dolores keller MD PCP: Care Physician,No Primary Status: REG ER Study: Wrist min 3 Views Date of Exam: 03/08/25 Exam# [id number] Ordering Dr: Maureen Gomez DO PROCEDURE: WRIST MIN 3 VIEWS 03/08/2025 REASON FOR EXAM: INJURY TECHNIQUE: WRIST MIN 3 VIEWS COMPARISON: None. FINDINGS: Soft tissue edema and swelling. Mild osteopenia of the visualized bones. Degenerative joint disease. No fracture or dislocation is seen. No lytic or blastic bone lesion is noted. RAD/Wrist min 3 Views IMPRESSION: Soft tissue edema and swelling. Reading Location: [place] [address] CC: Dr. Maureen Gomez DO; No Primary Care Physician Outbound Sales Professional: Signed [facility] 03-02-2025 CNPN Telephone (AGINTMAC) VENKAT MARSH ([id number]) 1965 M Date Time Provider Department 03/02/25 NIKOLAI NAZARIO During your visit today, we recorded the following information about you: Frieda Garza 03/02/2025 4:08 PM Signed Patient is requesting testosterone testing. He wanted to know what he needs to do to begin the process. Patient would like a call with an update once available. Frieda Garza, Assistant Hall Director March 02, 2025 4:08 PM Frieda Garza 03/03/2025 11:10 AM Signed Patient has been made aware of questionnaire being sent over. Frieda Garza Assistant Hall Director March 03, 2025 11:10 AM Allergies As [...] Give with each insulin administration. - Insulin Colfax, Disposable, (PEN NEEDLE) 32 gauge x 5/32 [...] (HCC) [F14.21] 09/10/2023 Hypothyroidism [E03.9] Diabetes mellitus ([facility]) [E11.9] Cataract, nuclear sclerotic, both eyes [H25.13] 10/23/2023 Hyperopia of both eyes [H52.03] 10/23/2023 Regular astigmatism of both eyes [H52.223] 10/23/2023 Presbyopia of both eyes [H52.4] 10/23/2023 Mood disorder ([facility]) [F39] 11/02/2023 Acute systolic HF (heart failure) ([facility]) [I50.21]04/13/2024 01/19/2025 Acute on chronic systoli (more content not included)... Normal [facility] XR Hand - right PA and Later al and Obliqueon 02-25-2025 IMPRESSION: No acute bone abnormality. Degenerative changes as described. Outbound Sales Professional: NESTOR Transcribe Date/Time: Feb 25 2025 4:54P Dictated by : AYLEEN MCMAHON MD This examination was interpreted and the report reviewed and electronically signed by: AYLEEN MCMAHON MD on Feb 25 2025 4:55PM EST [facility] * * *Final Report* * [...] first MCP, and several IP joints. _ [facility] Provider, Garland [place] - 02/25/2025 * * *Final Report* * [...] acute bone abnormality. Degenerative changes as described. Outbound Sales Professional: PSCB Transcribe Date/Time: Feb 25 2025 4:54P Dictated by : AYLEEN MCMAHON MD This examination was interpreted and the report reviewed and electronically signed by: AYLEEN MCMAHON MD on Feb 25 2025 4:55PM EST [facility] XR Hand - right PA and Later al and ObliqueOrdered By: Ccf Provider on 02-25-2025 [facility] CNOVon 02-22-2025 CNOV Office Visit (ORMMMB ) VENKAT MARSH ([id number]) 1965 M Date Time Provider Department 02/22/25 10:30 AM [facility] During your visit today, we [...] Ross MD Hand AND Upper Extremity Surgery [address] [place] [address] , [place] [address] OUTPATIENT ESTABLISHED PATIENT VISIT SERVICE DATE: 02/22/2025 HISTORY OF PRESENT ILLNESS Venkat Marsh presents to the office for right thumb pain. Patient is known to my office, seen previously for Dupuytren's nodules. Patient does recall a specific single traumatic event. He hit the right hand at night because he thinks he sleep walks. This was a couple weeks ago. 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 MUSCLE: Ironer Machine and pinch strength are decreased due to [...] were reviewed with (more content not included)... [facility] Small Joint Arthro/Inj: R th umb CMCon [...] these instructions. Informed Consent Consent Obtained: Verbal [place] Protocol A moment to CARE was completed. [...] equipment, possible retained foreign bodies accounted for. [facility] XR HAND 3V PA/LAT/OBL RTon 0 [...] acute bone abnormality. Degenerative changes as described. Outbound Sales Professional: NESTOR Transcribe Date/Time: Feb 25 2025 4:54P Dictated by : AYLEEN MCMAHON MD This examination was interpreted and the report reviewed and electronically signed by: AYLEEN MCMAHON MD on Feb 25 2025 4:55PM EST [id number] N [facility] XR Hand - right PA and Later al and Obliqueon 02-22-2025 Radiology Study [facility] (narrative[facility] SOY Telephone ([facility]) SALMAVENKAT Blankenship ([id number]) 1965 M Date Time Provider Department 02/20/25 TALITA ROSS During your visit today, we recorded the [...] by mouth daily before breakfast. - Insulin Colfax, Disposable, (PEN NEEDLE) 32 gauge x 5/32 [...] OPHELIA Crooks Problem List As Of Date 02/20/2025 Noted [...] 04/15/2024 Atrial fib/f (more content not included)... [facility] CNNURSEon 01-24-2025 CNNURSE Nurse Visit (ENDIMT) VENKAT MARSH ([id number]) 1965 M Date Time Provider Department 01/24/25 9:00 AM NATALI WEAVER During your visit today, we recorded the following information about you: Natali Weaver RN 01/24/2025 9:26 AM Signed DIABETES CARE AND EDUCATION VISIT Location: [place] Type of visit: In person individual PATIENT'S [...] TIME: 8:56 AM Referring Provider: NIKOLAI NAZARIO [[id number]] Allergies As of Date: 01/24/2025 Noted Allergy [...] R80.9, Z79.4] Order(s):CONSULT TO DIABETES EDUCATION DSME [[id number]] Order #: [id number]: 2 Prescriptions as of 01/24/2025 - spironolactone [...] by mouth daily before breakfast. - Insulin Colfax, Disposable, (PEN NEEDLE) 32 gauge x 5/32 Inject 1 Each subcutaneously every 24 hours. Give with each insulin administration. - insulin glargine 100 unit/mL (3 mL) Inject 20 Units subcutaneously daily at bedtime. Inject 20 Units subcutaneously as directed - magnesium, aluminum (more content not included)... Normal [facility] 36on 01-20-2025 36 Heart Failure Clinic Discharge Call Discharge Date [...] tablet by mouth daily before breakfast. Insulin Colfax, Disposable, (PEN NEEDLE) 32 gauge x 5/32 [...] Take 1 each by mouth as needed. [facility] 36on 01-19-2025 36 TC to Pt went to , M [facility] 36 PT returned your call Normal [facility] 36 TC to Pt no answer LVM Normal [facility] CNOVon 01-19-2025 CNOV Office Visit (AGINTMAC) VENKAT MARSH ([id number]) 1965 M Date Time Provider Department 01/19/25 [...] Medicine, Lipidology, Metabolic Medicine and Lifestyle Medicine [facility] IMCA Recording using ambient [employer] software for draft documentation of the visit was discussed with the patient/authorized bank representative; all questions welcomed and answered. Patient/authorized bank representative agreed to proceed Date of Evaluation: 01/19/2025 [...] - NT PRO BNP - CONSULT TO [facility] (PPG ONLY) - COMPLETE [...] (more content not included)... Normal [facility] 36on 01-18-2025 36 Discharged with hear t failure. Needs 72 hour post discharge phone call. Normal [facility] Basic metabolic 1998 panelon 01-17-2025 Anion gap [Moles/Vol] 12 mmol/L 3 - 13 mmol/L [facility] Calcium [Mass/Vol] 9.2 mg/dL 8.8 - 10. 0 mg/dL [facility] Chloride [Moles/Vol] 101 mmol/L 98 - 10 7 mmol/L [facility] CO2 [Moles/Vol] 25 mmol/L 23 - 31 mmol/L [facility] Creatinine [Mass/Vol] 1.62 mg/dL High 0.72 - 1.25 mg/dL [facility] GFR/1.73 sq M.predicted (S/P/Bld) [Vol rate/Area] 48 mL/min Low - PINF [facility] Comment on above: Calculation based on the Chronic Kidney Disease Epidemiology Collaboration (CKD-EPI) equation refit without adjustment for race Glucose [Mass/Vol] 205 mg/dL High 82 - 115 mg/dL [facility] Interpretation and review of laboratory results Abnormal [facility] Potassium [Moles/Vol] 3.9 mmol/L 3.5 - 5.1 mmol/L [facility] Comment on above: Plasma potassium zaira ues may be up to 0.5 mmol/L lower than serum values. Sodium [Moles/Vol] 138 mmol/L 136 - 145 mmol/L [facility] Urea nitrogen [Mass/Vol] 27 mg/dL High 9 - 23 mg/dL [facility] Laboratory - Chemistry and C hemistry - challengeon 01-17-2025 Magnesium [Mass/Vol] 2 mg/dL 1.6 - 2 .6 mg/dL [facility] Magnesium [Mass/Vol]on 01-17 Interpretation and review of laboratory results Normal [facility] Higher values can be expected in females during menses. [facility] Nursing Noteon 01-17-2025 Nursing Note Discharge instructions reviewed with patient. All questions answered. Pt discharged to home with all belongings. [facility] Nursing Note pt adamant on leaving. Dr. Christie messaged via secure chat. Stated patient can be discharged. This RN asked him about not having a PCP Dr. Christie states patient can follow up with cardiology for now. Will update patient. [facility] Progress Noteon 01-17-[address] Hernandez, tell him he has to stay, the day team will be in I\about 1 hr. Someone will be there around 7: 00 am I will let them know at signout . Will tell the pt but the pt states he needs to be home by 8. [facility] Progress Note Messaged Dr. Wells and Dr. Hernandez; Pt is ready to leave [facility]. He waited all day yesterday and has things to do today. He doesn't think he can wait till the doctors round today. 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 [facility] 30on 01-16-2025 30 Problem: Knowledge Deficit Goal: Patient/family/caregi bridgett demonstrates understanding of disease process, treatment plan, medications, and discharge instructions Outcome: Progressing Problem: Hemodynamic Status Goal: Patient's vitals signs are stable Outcome: Progressing Problem: Excessive Fluid Volume Goal: Fluid and electrolyte balance are achieved/maintained Outcome: Progressing Normal [facility] 30 Problem: Knowledge Deficit Goal: Patient/family/caregi bridgett [...] discharge needs are met Outcome: Progressing Normal [facility] [id number] 01-16-2025 [id number] Spoke with patient regarding PT recommendations for home health PT. He agreed. 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 Normal [facility] BASIC METABOLIC PANELon - Anion gap [Moles/Vol] 12 mmol/L Normal 3-13 [facility] Comment on above: Performed By: #### L AB15, [id number] ####Manufacturing Storeperson: WESTON IBARRA ([phone])[address] Calcium [Mass/Vol] 9.2 mg/dL Normal 8.8-10.0 [facility] Comment on above: Performed By: #### L AB15, [id number] ####Manufacturing Storeperson: WESTON IBARRA ([phone])[facility])[address] [place] [address] [place] Chloride [Moles/Vol] 101 mmol/L Normal 98-107 [facility] Comment on above: Performed By: #### L AB15, [id number] ####Manufacturing Storeperson: WESTON [id number])[facility])[address] [place] [address] CO2 [Moles/Vol] 25 mmol/L Normal 23-31 [facility] Comment on above: Performed By: #### L AB15, [id number] ####Manufacturing Storeperson: WESTON [id number])[facility] [place] [address] [place] Creatinine [Mass/Vol] 1.62 mg/dL High 0.72-1.25 [facility] Comment on above: Performed By: #### L AB15, [id number] ####Manufacturing Storeperson: WESTON IBARRA ([phone])[facility] ([facility])[address] [place] [address] [place] GLOMERULAR FILTRATION RATE ML/MIN/1.73 SQ M.PREDICTED 48.0 mL/min/1.73m*2 Low >60.0 [facility] Comment on above: Result Comment: Calc ulation based on the Chronic Kidney Disease Epidemiology Collaboration (CKD-EPI) equation refit without adjustment for race Performed By: #### L AB15, [id number] ####Manufacturing Storeperson: WESTON IBARRA ([phone])[facility] ([facility])[address] [place] [address] [place] Glucose [Mass/Vol] 205 mg/dL High 82-115 [facility] Comment on above: Performed By: #### L AB15, [id number] ####Manufacturing Storeperson: WESTON IBARRA ([phone])[facility])[address] [place] [address] [place] Potassium [Moles/Vol] 3.9 mmol/L Normal 3.5-5.1 [facility] Comment on above: Result Comment: [facility] potassium values may be up to 0.5 mmol/L lower than serum values. Performed By: #### L AB15, [id number] ####Manufacturing Storeperson: WESTON IBARRA ([phone])[facility] ([facility])[address] [place] [address] [place] Sodium [Moles/Vol] 138 mmol/L Normal 136-145 [facility] Comment on above: Performed By: #### L AB15, [id number] ####Manufacturing Storeperson: WESTON IBARRA ([phone])[facility] [place] [address] [place] Urea nitrogen [Mass/Vol] 27 mg/dL High 9-23 [facility] Comment on above: Performed By: #### L AB15, [id number] ####Manufacturing Storeperson: WESTON IBARRA ([phone])[facility] ([facility])[address] [place] [address] Anion gap [Moles/Vol] 13 mmol/L Normal 3-13 [facility] Comment on above: Performed By: #### L AB15 ####Manufacturing Storeperson: WESTON IBARRA ([phone])[facility] ([facility])[address] [place] [address] Calcium [Mass/Vol] 9.1 mg/dL Normal 8.8-10.0 [facility] Comment on above: Performed By: #### L AB15 ####Manufacturing Storeperson: WESTON IBARRA ([phone])[facility] ([facility])[address] [place] [address] Chloride [Moles/Vol] 104 mmol/L Normal 98-107 [facility] Comment on above: Performed By: #### L AB15 ####Manufacturing Storeperson: WESTON IBARRA ([phone])[facility] [place] [address] CO2 [Moles/Vol] 23 mmol/L Normal 23-31 [facility] Comment on above: Performed By: #### L AB15 ####Manufacturing Storeperson: WESTON IBARRA ([id number])[facility] ([facility])[address] [place] [address] Creatinine [Mass/Vol] 1.47 mg/dL High 0.72-1.25 [facility] Comment on above: Performed By: #### L AB15 ####Manufacturing Storeperson: WESTON IBARRA ([phone])[facility] ([facility])[address] [place] [address] [place] GLOMERULAR FILTRATION RATE ML/MIN/1.73 SQ M.PREDICTED 53.9 mL/min/1.73m*2 Low >60.0 [facility] Comment on above: Result Comment: Calc ulation based on the Chronic Kidney Disease Epidemiology Collaboration (CKD-EPI) equation refit without adjustment for race Performed By: #### L AB15 ####Manufacturing Storeperson: WESTON IBARRA ([id number])[facility] ([facility])[address] [place] [address] Glucose [Mass/Vol] 182 mg/dL High 82-115 [facility] Comment on above: Performed By: #### L AB15 ####Manufacturing Storeperson: WESTON IBARRA ([phone])[facility])[address] [place] [address] Potassium [Moles/Vol] 4.1 mmol/L Normal 3.5-5.1 [facility] Comment on above: Result Comment: [facility] potassium values may be up to 0.5 mmol/L lower than serum values. Performed By: #### L AB15 ####Manufacturing Storeperson: WESTON IBARRA ([phone])[facility] ([facility])[address] [place] [address] Sodium [Moles/Vol] 140 mmol/L Normal 136-145 [facility] Comment on above: Performed By: #### L AB15 ####Manufacturing Storeperson: WESTON IBARRA ([phone])[facility] ([facility])[address] [place] [address] Urea nitrogen [Mass/Vol] 21 mg/dL Normal 9-23 [facility] Comment on above: Performed By: #### L AB15 ####Manufacturing Storeperson: WESTON IBARRA ([phone])[facility])[address] [place] [address] Basic metabolic 1998 panelon 01-16-2025 Anion gap [Moles/Vol] 13 mmol/L 3 - 13 mmol/L [facility] Calcium [Mass/Vol] 9.1 mg/dL 8.8 - 10. 0 mg/dL [facility] Chloride [Moles/Vol] 104 mmol/L 98 - 10 7 mmol/L [facility] CO2 [Moles/Vol] 23 mmol/L 23 - 31 mmol/L [facility] Creatinine [Mass/Vol] 1.47 mg/dL High 0.72 - 1.25 mg/dL [facility] GFR/1.73 sq M.predicted (S/P/Bld) [Vol rate/Area] 53.9 mL/min Low - PINF [facility] Comment on above: Calculation based on the Chronic Kidney Disease Epidemiology Collaboration (CKD-EPI) equation refit without adjustment for race Glucose [Mass/Vol] 182 mg/dL High 82 - 115 mg/dL [facility] Interpretation and review of laboratory results Abnormal [facility] Potassium [Moles/Vol] 4.1 mmol/L 3.5 - 5.1 mmol/L [facility] Comment on above: Plasma potassium zaira ues may be up to 0.5 mmol/L lower than serum values. Sodium [Moles/Vol] 140 mmol/L 136 - 145 mmol/L [facility] Urea nitrogen [Mass/Vol] 21 mg/dL 9 - 23 mg/dL [facility] CNPNon 01-16-2025 JOHNN Telephone (YOBANYSCL) VENKAT MARSH ([id number]) 1965 M Date Time Provider Department 01/16/25 [...] by mouth daily before breakfast. - Insulin [place], Disposable, (PEN NEEDLE) 32 gauge x 5/32 [...] OPHELIA Crooks Problem List As Of Date 01/16/2025 Noted [...] Status:Closed by JELENA OLEARY on 01/16/25 Normal [facility] Laboratory - Chemistry and C hemistry - challengeon 01-16-2025 Glucose [Mass/Vol] 222 mg/dL High 70 - 100 mg/dL [facility] Glucose [Mass/Vol] 103 mg/dL High 70 - 100 mg/dL [facility] Glucose [Mass/Vol] 224 mg/dL High 70 - 100 mg/dL [facility] Glucose [Mass/Vol] 156 mg/dL High 70 - 100 mg/dL [facility] MAGNESIUMon 01-16-2025 Magnesium [Mass/Vol] 2.0 mg/dL Normal 1.6-2.6 [facility] Comment on above: Result Comment: ELIO Vargas COMMENTS: Higher values can be expected in females during menses. Performed By: #### L AB15, [id number] ####Manufacturing Storeperson: WESTON IBARRA ([phone])[facility] ([facility])[address] [place] [address] No Panel Informationon 01-16 Interpretation and review of laboratory results Abnormal [facility] Performed by: [facility], [address] [place] [address] CLIA ID: [id number] [facility] Interpretation and review of laboratory results Abnormal [facility] Performed by: [facility], [address] [place] [address] CLIA ID: [id number] [facility] Interpretation and review of laboratory results Abnormal [facility] Performed by: [facility], [address] [place] [address] CLIA ID: [id number] [facility] Interpretation and review of laboratory results Abnormal [facility] Performed by: [facility], [address] [place] [address] CLIA ID: [id number] [facility] 30on 01-15-2025 30 Problem: Knowledge Deficit Goal: Patient/family/caregi bridgett demonstrates understanding of disease process, treatment plan, medications, and discharge instructions Outcome: Progressing Problem: Hemodynamic Status Goal: Patient's vitals signs are stable Outcome: Progressing Problem: Excessive Fluid Volume Goal: Fluid and electrolyte balance are achieved/maintained Outcome: Progressing Normal [facility] 30 Problem: Knowledge Deficit Goal: Patient/family/caregi bridgett [...] discharge needs are met Outcome: Progressing Normal [facility] BASIC METABOLIC PANELon 04-2 Anion gap [Moles/Vol] 11 mmol/L Normal 3-13 [facility] Comment on above: Performed By: #### L AB129, [id number], LAB15 ####Manufacturing Storeperson: WESTON IBARRA ([phone])[facility])[address] [place] [address] Calcium [Mass/Vol] 8.5 mg/dL Low 8.8-10.0 [facility] Comment on above: Performed By: #### L AB129, [id number], LAB15 ####Manufacturing Storeperson: WESTON IBARRA ([id number])[facility] [place] [address] Chloride [Moles/Vol] 102 mmol/L Normal 98-107 [facility] Comment on above: Performed By: #### L AB129, [id number], LAB15 ####Manufacturing Storeperson: WESTON IBARRA ([phone])[facility] [place] [address] [place] CO2 [Moles/Vol] 25 mmol/L Normal 23-31 [facility] Comment on above: Performed By: #### L AB129, [id number], LAB15 ####Manufacturing Storeperson: WESTON IBARRA ([phone])[facility])[address] [place] [address] Creatinine [Mass/Vol] 1.30 mg/dL High 0.72-1.25 [facility] Comment on above: Performed By: #### L AB129, [id number], LAB15 ####Manufacturing Storeperson: WESTON IBARRA ([id number])[facility])[address] [place] [address] [place] GLOMERULAR FILTRATION RATE ML/MIN/1.73 SQ M.PREDICTED 62.5 mL/min/1.73m*2 Normal >60.0 [facility] Comment on above: Result Comment: Calc ulation based on the Chronic Kidney Disease Epidemiology Collaboration (CKD-EPI) equation refit without adjustment for race Performed By: #### L AB129, [id number], LAB15 ####Manufacturing Storeperson: WESTON IBARRA ([phone])[facility])[address] [place] [address] Glucose [Mass/Vol] 223 mg/dL High 82-115 [facility] Comment on above: Performed By: #### L AB129, [id number], LAB15 ####Manufacturing Storeperson: WESTON IBARRA ([id number])[facility])[address] [place] [address] Potassium [Moles/Vol] 3.5 mmol/L Normal 3.5-5.1 [facility] Comment on above: Result Comment: [facility] potassium values may be up to 0.5 mmol/L lower than serum values. Performed By: #### L AB129, [id number], LAB15 ####Manufacturing Storeperson: WESTON IBARRA ([phone])[facility])[address] [place] [address] [place] Sodium [Moles/Vol] 138 mmol/L Normal 136-145 [facility] Comment on above: Performed By: #### L AB129, [id number], LAB15 ####Manufacturing Storeperson: WESTON IBARRA ([phone])[facility])[address] [place] [address] [place] Urea nitrogen [Mass/Vol] 21 mg/dL Normal 9-23 [facility] Comment on above: Performed By: #### L AB129, [id number], LAB15 ####Manufacturing Storeperson: WESTON IBARRA ([phone])[facility])[address] [place] [address] [place] Basic metabolic 1998 panelon 01-15-2025 Anion gap [Moles/Vol] 11 mmol/L 3 - 13 mmol/L [facility] Calcium [Mass/Vol] 8.5 mg/dL Low 8.8 - 10. 0 mg/dL [facility] Chloride [Moles/Vol] 102 mmol/L 98 - 10 7 mmol/L [facility] CO2 [Moles/Vol] 25 mmol/L 23 - 31 mmol/L [facility] Creatinine [Mass/Vol] 1.3 mg/dL High 0.72 - 1.25 mg/dL [facility] GFR/1.73 sq M.predicted (S/P/Bld) [Vol rate/Area] 62.5 mL/min - PINF [facility] Comment on above: Calculation based on the Chronic Kidney Disease Epidemiology Collaboration (CKD-EPI) equation refit without adjustment for race Glucose [Mass/Vol] 223 mg/dL High 82 - 115 mg/dL [facility] Interpretation and review of laboratory results Abnormal [facility] Potassium [Moles/Vol] 3.5 mmol/L 3.5 - 5.1 mmol/L [facility] Comment on above: Plasma potassium zaira ues may be up to 0.5 mmol/L lower than serum values. Sodium [Moles/Vol] 138 mmol/L 136 - 145 mmol/L [facility] Urea nitrogen [Mass/Vol] 21 mg/dL 9 - 23 mg/dL [facility] CBC (HEMOGRAM)on 01-15-2025 Erythrocyte distribution width (RBC) [Ratio] 13.7 % Normal 11.5-15.0 [facility] Comment on above: Performed By: #### L AB294 ####Manufacturing Storeperson: WESTON IBARRA ([phone])[address] Hematocrit (Bld) [Volume fraction] 51.0 % Normal 40.0-52.0 [facility] Comment on above: Performed By: #### L AB294 ####Manufacturing Storeperson: WESTON IBARRA ([phone])[address] Hemoglobin (Bld) [Mass/Vol] 16.9 g/dL Normal 13.0-18.0 [facility] Comment on above: Performed By: #### L AB294 ####Manufacturing Storeperson: WESTON IBARRA ([phone])[facility] ([facility])[address] [place] [address] MCH (RBC) [Entitic mass] 29.3 pg Normal 26.0-34.0 [facility] Comment on above: Performed By: #### L AB294 ####Manufacturing Storeperson: WESTON IBARRA ([phone])[facility] ([facility])[address] [place] [address] MCHC 33.1 % Normal 30.5-36.0 [facility] Comment on above: Performed By: #### L AB294 ####Manufacturing Storeperson: WESTON IBARRA ([phone])[facility])[address] [place] [address] MCV (RBC) [Entitic vol] 88.5 fL Normal 77.0-99.0 [facility] Comment on above: Performed By: #### L AB294 ####Manufacturing Storeperson: WESTON IBARRA ([phone])[facility] ([facility])[address] [place] [address] Platelet mean volume (Bld) [Entitic vol] 10.3 fL Normal 9.0-12.7 [facility] Comment on above: Performed By: #### L AB294 ####Manufacturing Storeperson: WESTON IBARRA ([phone])[facility] ([facility])[address] [place] [address] Platelets (Bld) [#/Vol] 195 10*3/uL Normal 140-440 [facility] Comment on above: Performed By: #### L AB294 ####Manufacturing Storeperson: WESTON IBARRA ([phone])[facility] ([facility])[address] [place] [address] RBC (Bld) [#/Vol] 5.76 10*6/uL Normal 4.40-5.90 [facility] Comment on above: Performed By: #### L AB294 ####Manufacturing Storeperson: WESTON IBARRA ([phone])[facility])[address] [place] [address] WBC (Bld) [#/Vol] 8.7 10*3/uL Normal 3.6-10.7 [facility] Comment on above: Performed By: #### L AB294 ####Manufacturing Storeperson: WESTON IBARRA ([phone])[facility] [place] [address] CBC panel Auto (Bld)on 01-15 Erythrocyte distribution width (RBC) [Ratio] 13.7 % 11.5 - 15.0 % [facility] Hematocrit (Bld) [Volume fraction] 51 % 40.0 - 52.0 % [facility] Hemoglobin (Bld) [Mass/Vol] 16.9 g/dL 13.0 - 18.0 g/dL [facility] Interpretation and review of laboratory results Normal [facility] MCH (RBC) [Entitic mass] 29.3 pg 26.0 - 34.0 pg [facility] MCHC (RBC) [Mass/Vol] 33.1 % 30.5 - 36.0 % [facility] MCV (RBC) [Entitic vol] 88.5 fL 77.0 - 99.0 fL [facility] Platelet mean volume (Bld) [Entitic vol] 10.3 fL 9.0 - 12.7 fL [facility] Platelets (Bld) [#/Vol] 195 10*3/uL 140 - 440 10*3/uL [facility] RBC (Bld) [#/Vol] 5.76 10*6/uL 4.40 - 5.9 0 10*6/uL [facility] WBC (Bld) [#/Vol] 8.7 10*3/uL 3.6 - 10.7 10*3/uL [facility] Laboratory - Chemistry and C hemistry - challengeon 01-15-2025 Glucose [Mass/Vol] 293 mg/dL High 70 - 100 mg/dL [facility] Glucose [Mass/Vol] 237 mg/dL High 70 - 100 mg/dL [facility] Glucose [Mass/Vol] 150 mg/dL High 70 - 100 mg/dL [facility] Glucose [Mass/Vol] 237 mg/dL High 70 - 100 mg/dL [facility] TSH Qn 0.71 m[IU]/L [facility] Magnesium [Mass/Vol] 1.9 mg/dL 1.6 - 2 .6 mg/dL [facility] MAGNESIUMon 01-15-2025 Magnesium [Mass/Vol] 1.9 mg/dL Normal 1.6-2.6 [facility] Comment on above: Result Comment: ELIO Vargas COMMENTS: Higher values can be expected in females during menses. Performed By: #### L AB129, [id number], LAB15 ####Manufacturing Storeperson: WESTON IBARRA ([id number])[facility] ([facility])[address] [place] [address] Magnesium [Mass/Vol]on 01-15 Interpretation and review of laboratory results Normal [facility] Higher values can be expected in females during menses. [facility] 99dresses No Panel Informationon 01-15 Interpretation and review of laboratory results Abnormal [facility] Performed by: [facility], [address] [place] [address] CLIA ID: [id number] [facility] Interpretation and review of laboratory results Abnormal [facility] Performed by: [facility], [address] [place] [address] CLIA ID: [id number] [facility] Interpretation and review of laboratory results Abnormal [facility] Performed by: [facility], [address] [place] [address] CLIA ID: [id number] [facility] Interpretation and review of laboratory results Abnormal [facility] Performed by: [facility], [address] [place] [address] CLIA ID: [id number] [facility] Progress Noteon 01-15-2025 Progress Note Nutrition rescreen completed. Chart reviewed. Patient to be monitored and followed by the diet chemical radiation technician. Normal [facility] THYROID STIMULATING HORMONEo n 01-15-2025 THYROID STIMULATING HORMONE 0.71 uIU/mL Normal 0.35-4.94 [facility] Comment on above: Performed By: #### L AB129, [id number], LAB15 ####Manufacturing Storeperson: WESTON IBARRA ([phone])[facility] ([facility])[address] [place] [address] TSH Qnon 01-15-2025 Interpretation and review of laboratory results Normal [facility] TransthoracicOrdere d By: Amrit Johnson on 01-15-2025 Ao Root Index 1.5 cm/[facility]2 [facility] Work Phone: [phone] Aortic Root 3.6 cm [facility] Work Phone: [phone] Aortic valve Mean systole pressure gradient by US.doppler derived full Bernoulli 3 [facility] Work Phone: [phone] Aortic valve Orifice area by US 3.8 cm2 [facility] Work Phone: [phone] Aortic valve Peak systolic flow by US.doppler 0.9 m/s [facility] Work Phone: [phone] Ascending Aorta 4.2 cm [facility] Work Phone: [phone] Ascending Aorta Index 1.75 cm/m2 [facility] Work Phone: [phone] AV Area by Peak Velocity 2.9 cm2 [facility] Work Phone: [phone] AV Area by VTI 2.5 cm2 [facility] Work Phone: [phone] AV Peak Gradient 5 mmHg [facility] Work Phone: [phone] AV Peak Velocity 1.1 m/s [facility] Work Phone: [phone] AV Velocity Ratio 0.82 [facility] Work Phone: [phone] 00 AV VTI 20.2 cm [facility] Work Phone: [phone] JESSICA/BSA Peak Velocity 1.2 cm2/m2 [facility] Work Phone: [phone] JESSICA/BSA VTI 1 cm2/m2 [facility] Work Phone: [phone] EF Physician 35 % [facility] Work Phone: Est. RA Pressure 8 mmHg [facility] Work Phone: [phone] Fractional Shortening 2D 21 % 28 - 44 % [facility] Work Phone: [phone] Interpretation and review of laboratory results Abnormal [facility] Work Phone: [phone] IVC Diameter 1.9 cm [facility] Work Phone: [phone] IVSd 1 cm 0.6 - 1.0 cm [facility] Work Phone: [phone] LA Diameter 4.7 cm [facility] Work Phone: LA Size Index 1.96 cm/m2 [facility] Work Phone: [phone] LA Volume 2C 108 mL Abnormal 18 - 58 mL [facility] Work Phone: [phone] LA Volume 4C 89 mL Abnormal 18 - 58 mL [facility] Work Phone: [phone] LA Volume A/L 103 mL [facility] Work Phone: [phone] LA Volume BP 99 mL Abnormal 18 - 58 mL [facility] Work Phone: [phone] LA Volume Index 2C 45 mL/m2 Abnormal 16 - 34 mL/m2 [facility] Work Phone: [phone] LA Volume Index 4C 37 mL/m2 Abnormal 16 - 34 mL/m2 [facility] Work Phone: LA Volume Index A/L 43 mL/m2 16 - 34 mL/m2 [facility] Work Phone: [phone] LA Volume Index BP 41 ml/m2 Abnormal 16 - 34 ml/m2 [facility] Work Phone: LA/AO Root Ratio 1.31 [facility] Work Phone: Left ventricular Ejection fraction by US.2D+Calculated by biplane method of disks 43 % Abnormal 55 - 100 % [facility] Work Phone: [phone] LV E' Lateral Velocity 8 cm/s [facility] Work Phone: LV E' Septal Velocity 10 cm/s [facility] Work Phone: [phone] LV EDV A2C 173 mL [facility] Work Phone: [phone] LV EDV A4C 163 mL [facility] Work Phone: [phone] LV EDV BP 171 mL Abnormal 67 - 155 mL [facility] Work Phone: LV EDV Index A2C 72 mL/m2 [facility] Work Phone: LV EDV Index A4C 68 mL/m2 [facility] Work Phone: LV EDV Index BP 71 mL/m2 [facility] Work Phone: LV Ejection Fraction A2C 43 % [facility] Work Phone: LV Ejection Fraction A4C 43 % [facility] Work Phone: LV ESV A2C 99 mL [facility] Work Phone: LV ESV A4C 93 mL [facility] Work Phone: LV ESV BP 97 mL Abnormal 22 - 58 mL [facility] Work Phone: LV ESV Index A2C 41 mL/m2 [facility] Work Phone: LV ESV Index A4C 39 mL/m2 [facility] Work Phone: LV ESV Index BP 40 mL/m2 [facility] Work Phone: LV Mass 2D 219.7 g 88 - 224 g [facility] Work Phone: LV Mass 2D Index 91.5 g/m2 49 - 115 g/m2 [facility] Work Phone: LV RWT Ratio 0.36 [facility] Work Phone: LVIDd 5.6 cm 4.2 - 5.9 cm [facility] Work Phone: LVIDd Index 2.33 cm/m2 [facility] Work Phone: LVIDs 4.4 cm [facility] Work Phone: LVIDs Index 1.83 cm/m2 [facility] Work Phone: LVOT Cardiac Output 4.5 liter/minute [facility] Work Phone: LVOT Diameter 2.2 cm [facility] Work Phone: LVOT Mean Gradient 2 mmHg [facility] Work Phone: LVOT Peak Gradient 3 mmHg [facility] Work Phone: LVOT Peak Velocity 0.9 m/s [facility] Work Phone: [phone] LVOT Stroke Volume Index 21.2 mL/m2 [facility] Work [phone] LVOT SV 50.9 ml [facility] Work Phone: [phone] LVOT VTI 13.4 cm [facility] Work Phone: [phone] LVOT:AV VTI Index 0.66 [facility] Work Phone: [phone] LVPWd 1 cm 0.6 - 1.0 cm [facility] Work Phone: [phone] RA Area 4C 109.3 mL [facility] Work Phone: [phone] RA Area 4C 108.4 mL [facility] Work Phone: [phone] RA area length vol 109 mL [facility] Work Phone: [phone] RV Basal Dimension 6.1 cm [facility] Work Phone: [phone] RV Free Wall Peak S' 11 cm/s [facility] Work Phone: [phone] RV Longitudinal Dimension 7.8 cm [facility] Work Phone: [phone] RV Mid Dimension 4.5 cm [facility] Work Phone: [phone] RVSP 47 mmHg [facility] Work Phone: [phone] TAPSE 1.6 cm Abnormal 1.7 cm [facility] Work Phone: [phone] TR Max Velocity 3.13 m/s [facility] Work Phone: [phone] TR Peak Gradient 39 mmHg [facility] Work Phone: [phone] [facility] Work Phone: [phone] US Heart Transthoracicon Left Ventricle: Left ventricle [...] mid anterolateral. All other segments are normal. [facility] 01-14-2025 Problem: Knowledge Deficit Goal: Patient/family/caregi bridgett demonstrates understanding of disease process, treatment plan, medications, and discharge instructions Outcome: Progressing Problem: Hemodynamic Status Goal: Patient's vitals signs are stable Outcome: Progressing Problem: Excessive Fluid Volume Goal: Fluid and electrolyte balance are achieved/maintained Outcome: Progressing Normal [facility] BASIC METABOLIC PANELon 04-2 Anion gap [Moles/Vol] 8 mmol/L Normal 3-13 [facility] Comment on above: Performed By: #### L [id number], [id number] ####Manufacturing Storeperson: WESTON IBARRA ([phone])[facility])[address] [place] [address] Calcium [Mass/Vol] 8.6 mg/dL Low 8.8-10.0 [facility] Comment on above: Performed By: #### L [id number], [id number] ####Manufacturing Storeperson: WESTON IBARRA ([phone])[facility])[address] [place] [address] Chloride [Moles/Vol] 99 mmol/L Normal 98-107 [facility] Comment on above: Performed By: #### L [id number], [id number] ####Manufacturing Storeperson: WESTON IBARRA ([phone])[facility] ([facility])[address] [place] [address] CO2 [Moles/Vol] 30 mmol/L Normal 23-31 [facility] Comment on above: Performed By: #### L AB15, [id number] ####Manufacturing Storeperson: WESTON IBARRA ([phone])[facility] ([facility])[address] [place] [address] Creatinine [Mass/Vol] 1.20 mg/dL Normal 0.72-1.25 [facility] Comment on above: Performed By: #### L AB15, [id number] ####Manufacturing Storeperson: WESTON IBARRA ([phone])[facility])[address] [place] [address] [place] GLOMERULAR FILTRATION RATE ML/MIN/1.73 SQ M.PREDICTED 68.8 mL/min/1.73m*2 Normal >60.0 [facility] Comment on above: Result Comment: Calc ulation based on the Chronic Kidney Disease Epidemiology Collaboration (CKD-EPI) equation refit without adjustment for race Performed By: #### L AB15, [id number] ####Manufacturing Storeperson: WESTON IBARRA ([phone])[facility])[address] [place] [address] Glucose [Mass/Vol] 147 mg/dL High 82-115 [facility] Comment on above: Performed By: #### L AB15, [id number] ####Manufacturing Storeperson: WESTON IBARRA ([phone])[facility])[address] [place] [address] Potassium [Moles/Vol] 4.1 mmol/L Normal 3.5-5.1 [facility] Comment on above: Result Comment: TC Significant interference from hemolysis. Result integrity compromised. Interpret with caution. Performed By: #### L AB15, [id number] ####Manufacturing Storeperson: WESTON IBARRA ([phone])[facility])[address] [place] [address] Sodium [Moles/Vol] 137 mmol/L Normal 136-145 [facility] Comment on above: Performed By: #### L AB15, [id number] ####Manufacturing Storeperson: WESTON IBARRA ([phone])[facility])[address] [place] [address] Urea nitrogen [Mass/Vol] 13 mg/dL Normal 9-23 [facility] Comment on above: Performed By: #### L AB15, [id number] ####Manufacturing Storeperson: WESTON IBARRA ([phone])[facility])[address] [place] [address] Basic metabolic 1998 panelon 01-14-2025 Anion gap [Moles/Vol] 8 mmol/L 3 - 13 mmol/L [facility] Calcium [Mass/Vol] 8.6 mg/dL Low 8.8 - 10. 0 mg/dL [facility] Chloride [Moles/Vol] 99 mmol/L 98 - 10 7 mmol/L [facility] CO2 [Moles/Vol] 30 mmol/L 23 - 31 mmol/L [facility] Creatinine [Mass/Vol] 1.2 mg/dL 0.72 - 1.25 mg/dL [facility] GFR/1.73 sq M.predicted (S/P/Bld) [Vol rate/Area] 68.8 mL/min - PINF [facility] Comment on above: Calculation based on the Chronic Kidney Disease Epidemiology Collaboration (CKD-EPI) equation refit without adjustment for race Glucose [Mass/Vol] 147 mg/dL High 82 - 115 mg/dL [facility] Interpretation and review of laboratory results Abnormal [facility] Potassium [Moles/Vol] 4.1 mmol/L 3.5 - 5.1 mmol/L [facility] Comment on above: TC Significant interference from hemolysis. Result integrity compromised. Interpret with caution. Sodium [Moles/Vol] 137 mmol/L 136 - 145 mmol/L [facility] Urea nitrogen [Mass/Vol] 13 mg/dL 9 - 23 mg/dL [facility] CBC W Auto Differential pane l (Bld)on 01-14-2025 Basophils (Bld) [#/Vol] 0 10*3/uL 0.0 - 0.2 10*3/uL [facility] Basophils/100 WBC (Bld) 0.2 % 0.0 - 2.0 % [facility] Eosinophils (Bld) [#/Vol] 0.4 10*3/uL 0.0 - 0.5 10*3/uL [facility] Eosinophils/100 WBC (Bld) 4.2 % 0.0 - 6.0 % [facility] Erythrocyte distribution width (RBC) [Ratio] 13.6 % 11.5 - 15.0 % [facility] Hematocrit (Bld) [Volume fraction] 50.1 % 40.0 - 52.0 % [facility] Hemoglobin (Bld) [Mass/Vol] 16.6 g/dL 13.0 - 18.0 g/dL [facility] Immature granulocytes (Bld) [#/Vol] 0 10*3/uL NINF - 0.1 10*3/uL [facility] Immature granulocytes/100 WBC (Bld) 0.3 % 0.0 - 2.0 % [facility] Interpretation and review of laboratory results Normal [facility] Lymphocytes (Bld) [#/Vol] 2.5 10*3/uL 1.0 - 4.3 10*3/uL [facility] Lymphocytes/100 WBC (Bld) 28.2 % 15.0 - 45.0 % [facility] MCH (RBC) [Entitic mass] 29.9 pg 26.0 - 34.0 pg [facility] MCHC (RBC) [Mass/Vol] 33.1 % 30.5 - 36.0 % [facility] MCV (RBC) [Entitic vol] 90.3 fL 77.0 - 99.0 fL [facility] Monocytes (Bld) [#/Vol] 0.9 10*3/uL 0.0 - 0.9 10*3/uL [facility] Monocytes/100 WBC (Bld) 10.8 % 5.0 - 13.0 % [facility] Neutrophils (Bld) [#/Vol] 4.9 10*3/uL 1.8 - 7.5 10*3/uL [facility] Neutrophils/100 WBC (Bld) 56.3 % 38.0 - 82.0 % [facility] Nucleated RBC/100 WBC (Bld) [Ratio] 0 % [facility] Platelet mean volume (Bld) [Entitic vol] 10.6 fL 9.0 - 12.7 fL [facility] Platelets (Bld) [#/Vol] 219 10*3/uL 140 - 440 10*3/uL [facility] RBC (Bld) [#/Vol] 5.55 10*6/uL 4.40 - 5.9 0 10*6/uL [facility] WBC (Bld) [#/Vol] 8.7 10*3/uL 3.6 - 10.7 10*3/uL [facility] CBC WITH AUTO DIFFERENTIALon 01-14-2025 Basophils (Bld) [#/Vol] 0.0 10*3/uL Normal 0.0-0.2 [facility] Comment on above: Performed By: #### L [id number] ####Manufacturing Storeperson: WESTON IBARRA ([id number])[facility] ([facility])[address] [place] [address] Basophils/100 WBC (Bld) 0.2 % Normal 0.0-2.0 [facility] Comment on above: Performed By: #### L [id number] ####Manufacturing Storeperson: WESTON IBARRA ([phone])[facility] ([facility])[address] [place] [address] Eosinophils (Bld) [#/Vol] 0.4 10*3/uL Normal 0.0-0.5 [facility] Comment on above: Performed By: #### L [id number] ####Manufacturing Storeperson: WESTON IBARRA ([phone])[facility])[address] [place] [address] Eosinophils/100 WBC (Bld) 4.2 % Normal 0.0-6.0 [facility] Comment on above: Performed By: #### L [id number] ####Manufacturing Storeperson: WESTON IBARRA ([phone])[facility])[address] [place] [address] Erythrocyte distribution width (RBC) [Ratio] 13.6 % Normal 11.5-15.0 [facility] Comment on above: Performed By: #### L [id number] ####Manufacturing Storeperson: WESTON IBARRA ([phone])[address] Hematocrit (Bld) [Volume fraction] 50.1 % Normal 40.0-52.0 [facility] Comment on above: Performed By: #### L [id number] ####Manufacturing Storeperson: WESTON IBARRA ([phone])[address] Hemoglobin (Bld) [Mass/Vol] 16.6 g/dL Normal 13.0-18.0 [facility] Comment on above: Performed By: #### L [id number] ####Manufacturing Storeperson: WESTON IBARRA ([phone])[facility])[address] [place] [address] IMMATURE GRANS % 0.3 % Normal 0.0-2.0 [facility] Comment on above: Performed By: #### L [id number] ####Manufacturing Storeperson: WESTON IBARRA ([phone])[address] IMMATURE GRANS ABSOLUTE 0.0 10*3/uL Normal <0.1 [facility] Comment on above: Performed By: #### L [id number] ####Manufacturing Storeperson: WESTON IBARRA ([id number])[facility])[address] [place] [address] Lymphocytes (Bld) [#/Vol] 2.5 10*3/uL Normal 1.0-4.3 [facility] Comment on above: Performed By: #### L [id number] ####Manufacturing Storeperson: WESTON IBARRA ([phone])[facility])[address] [place] [address] Lymphocytes/100 WBC (Bld) 28.2 % Normal 15.0-45.0 [facility] Comment on above: Performed By: #### L [id number] ####Manufacturing Storeperson: WESTON IBARRA ([phone])[facility])[address] [place] [address] MCH (RBC) [Entitic mass] 29.9 pg Normal 26.0-34.0 [facility] Comment on above: Performed By: #### L [id number] ####Manufacturing Storeperson: WESTON IBARRA ([phone])[facility])[address] [place] [address] MCHC 33.1 % Normal 30.5-36.0 [facility] Comment on above: Performed By: #### L [id number] ####Manufacturing Storeperson: WESTON IBARRA ([id number])[facility])[address] [place] [address] MCV (RBC) [Entitic vol] 90.3 fL Normal 77.0-99.0 S [facility] Comment on above: Performed By: #### L [id number] ####Manufacturing Storeperson: WESTON IBARRA ([id number])[facility])[address] [place] [address] Monocytes (Bld) [#/Vol] 0.9 10*3/uL Normal 0.0-0.9 [facility] Comment on above: Performed By: #### L [id number] ####Manufacturing Storeperson: WESTON IBARRA ([id number])[facility] [place] [address] Monocytes/100 WBC (Bld) 10.8 % Normal 5.0-13.0 [facility] Comment on above: Performed By: #### L [id number] ####Manufacturing Storeperson: WESTON IBARRA ([id number])[facility] ([facility])[address] [place] [address] NEUTROPHILS ABSOLUTE 4.9 10*3/uL Normal 1.8-7.5 [facility] Comment on above: Performed By: #### L [id number] ####Manufacturing Storeperson: WESTON IBARRA ([phone])[facility] ([facility])[address] [place] [address] Neutrophils/100 WBC (Bld) 56.3 % Normal 38.0-82.0 [facility] Comment on above: Performed By: #### L [id number] ####Manufacturing Storeperson: WESTON IBARRA ([phone])[facility] ([facility])[address] [place] [address] NRBC 0.0 /100 WBCs Normal 0.0-2.0 [facility] Comment on above: Performed By: #### L [id number] ####Manufacturing Storeperson: WESTON IBARRA ([id number])[facility] ([facility])[address] [place] [address] Platelet mean volume (Bld) [Entitic vol] 10.6 fL Normal 9.0-12.7 [facility] Comment on above: Performed By: #### L [id number] ####Manufacturing Storeperson: WESTON IBARRA ([phone])[facility] ([facility])[address] [place] [address] [place] Platelets (Bld) [#/Vol] 219 10*3/uL Normal 140-440 [facility] Comment on above: Performed By: #### L [id number] ####Manufacturing Storeperson: WESTON IBARRA ([phone])[facility] ([facility])[address] [place] [address] [place] RBC (Bld) [#/Vol] 5.55 10*6/uL Normal 4.40-5.90 [facility] Comment on above: Performed By: #### L [id number] ####Manufacturing Storeperson: WESTON CONNERKimberly ([id number])[facility] ([facility])[address] [place] [address] WBC (Bld) [#/Vol] 8.7 10*3/uL Normal 3.6-10.7 [facility] Comment on above: Performed By: #### L [id number] ####Manufacturing Storeperson: WESTON IBARRA ([phone])[facility] [place] [address] Consulton 01-14-2025 Consult [facility] [place] [facility]iology/ Electrophysiology Consult Note Reason for Consult/Chief Complaint: SOB Consulting MD: Dr. Bahena History of Present Illness: Venkat Marsh is a 59 y.o. male with known CAD s/p remote AR with PCI to LAD in 2011, hypertension, [...] not evaluated due to AF LHC at [facility] 03/2024 LAD: The proximal LAD is narrowed [...] (congestive heart failure) (HCC) Depression Hyperlipidemia Hypertension AR (mitral incompetence) Past Surgical History: Past Surgical [...] 300 lb (136 kg), SpO2 94%. @IODETAILS@ @[id number]@ Constitutional: No acute distress. Well-nourished. Well hydrated. [...] - normocephalic. Neck - supple Laboratory Tests: @[id number](WBC:5,H GB:5,HCT:5,MCV:5,PLT: 5)@ @[id number](NA:5,K: 5,CL:5,CO2:5,BUN:5,Cr eatinine:5, GLU:5)@ Lab Results Component Value Date HGBA1C 9.2 (H) 01/13/2025 No results found for: TSH No results found for: CHOL No results found for: HDL No results found for: LDLCALC No results found for: TRIG No results found for: CHOLHDL @[id number](CKTOTAL :5,CKMB:5,CKMBINDEX:5 ,TROPONINI:5)@ No (more content not included)... Normal [facility] ECG 12-LEADon 01-14-2025 ECG 12-LEAD IMPRESSION: Sinus rhythm Prolonged PA interval Nonspecific intraventricular conduction delay ST elevation secondary to IVCD Electronically Signed On 01-14-2025 00:15:12 EDT by Dajuan Pruitt Normal [facility] ED Nursing Noteon 01-14-2025 ED Nursing Note Report received from Courtney. Pt re enters my care at this time [facility] ED Nursing Note Report given to Courtney . Pt exits my care at this time [facility] HIGH SENSITIVITY TROPONIN, S ERIAL, THIRD TESTon 01-14-2025 4H TROPONIN HS (SERIAL 3RD TROPONIN) 21 ng/L Normal <=35 [facility] Comment on above: Result Comment: 4h t roponin (3rd troponin) samples collected between 1h 40 min and 2h and 20 min of the 2h troponin collection time can be utilized to interpret delta troponins as per [facility] algorithms. Samples collected outside this timeframe need to be interpreted clinically. Rising or falling troponin delta below 2 ng/L as compared to 2h troponin value suggests that acute cardiac injury is unlikely. Performed By: #### L [id number] ####Manufacturing Storeperson: WESTON IBARRA ([id number])[facility] [place] [address] Laboratory - Chemistry and C hemistry - challengeon 01-14-2025 Glucose [Mass/Vol] 252 mg/dL High 70 - 100 mg/dL [facility] Glucose [Mass/Vol] 238 mg/dL High 70 - 100 mg/dL [facility] Magnesium [Mass/Vol] 2 mg/dL 1.6 - 2 .6 mg/dL [facility] Glucose [Mass/Vol] 267 mg/dL High 70 - 100 mg/dL [facility] Glucose [Mass/Vol] 140 mg/dL High 70 - 100 mg/dL [facility] Average glucose Estimated from glycated hemoglobin (Bld) [Mass/Vol] 217 mg/dL [facility] Glucose [Mass/Vol] 136 mg/dL High 70 - 100 mg/dL [facility] Laboratory - Hematology and Cell countson 01-14-2025 HbA1c (Bld) [Mass fraction] 9.2 % [facility] Comment on above: Normal less than 5.7 % Prediabetes 5.7% to 6.4% Diabetes 6.5% or higher --HgbA1C levels may not be accurate in patients who have renal disease, received recent blood transfusions, are anemic, or who have dyshemoglobinemia. MAGNESIUMon 01-14-2025 Magnesium [Mass/Vol] 2.0 mg/dL Normal 1.6-2.6 [facility] Comment on above: Result Comment: ELIO Vargas COMMENTS: Higher values can be expected in females during menses. Performed By: #### L AB15, [id number] ####Manufacturing Storeperson: WESTNO IBARRA ([phone])[facility] ([facility])[address] [place] [address] Magnesium [Mass/Vol]on 01-14 Interpretation and review of laboratory results Normal [facility] Higher values can be expected in females during menses. [facility] No Panel Informationon 01-14 Interpretation and review of laboratory results Abnormal [facility] Performed by: [employer] [facility], [address] [place] [id number] CLIA ID: [id number] [facility] [facility] No evidence of deep vein and superficial [...] Vein: Fully compressible. Peroneal Vein: Fully compressible. Art Framing Manager Details A jackson scale, color Doppler imaging and spectral Doppler analysis ultrasound was performed. During the study longitudinal and transverse views were obtained. Pulsed wave doppler was performed. The exam was performed with the patient in the supine position. Overall the study quality was adequate. Study was technically difficult due to: bedside exam. CV CPACS Interpretation and review of laboratory results Abnormal [facility] [address] Performed by: [facility], [address] [place] [id number] CLIA ID: [id number] [facility] [facility] Interpretation and review of laboratory results Abnormal [facility] Performed by: [facility], [address] [place] [id number] CLIA ID: [id number] [facility] Interpretation and review of laboratory results Abnormal [facility] Performed by: [facility], [address] [place] [id number] CLIA ID: [id number] [facility] 4h Troponin HS (Serial 3rd Troponin) 21 ng/L NINF - 35 ng/L [facility] Comment on above: 4h troponin (3rd tro ponin) samples collected between 1h 40 min and 2h and 20 min of the 2h troponin collection time can be utilized to interpret delta troponins as per [facility] algorithms. Samples collected outside this timeframe need to be interpreted clinically. Rising or falling troponin delta below 2 ng/L as compared to 2h troponin value suggests that acute cardiac injury is unlikely. Interpretation and review of laboratory results Normal [facility] Interpretation and review of laboratory results Abnormal [facility] HbA1c values of 5.7-6.4 percent indicate an increased risk for developing diabetes mellitus. HbA1c values greater than or equal to 6.5 percent are diagnostic of diabetes mellitus. For diagnosis of diabetes in individuals without unequivocal hyperglycemia, results should be confirmed by repeat testing. [facility] Interpretation and review of laboratory results Abnormal [facility] Performed by: [facility] [address] [facility], [address] [place] [id number] CLIA ID: [id number] [facility] Sinus rhythm Prolonged PA interval Nonspecific intraventricular conduction delay ST elevation secondary to IVCD Electronically Signed On 01-14-2025 00:15:12 EDT by Dajuan Pruitt CV Dajuan Royal MD - 01/14/2025 IMPRESSION: Sinus rhythm Prolonged PA interval Nonspecific intraventricular conduction delay ST elevation secondary to IVCD Electronically Signed On 01-14-2025 00:15:12 EDT by Dajuan Pruitt [facility] No Panel InformationOrdered By: Yana Burnett on 01-14-2025 Left CFV Rfx 0.9 s [employer] Work Phone: No Panel InformationOrdered By: Dajuan Pruitt on 01-14-2025 P [place] 43 degrees [employer] Work Phone: PA Interval 259 ms [facility] [employer] Work Phone: QRS [place] 136 degrees [facility] [employer] Work Phone: QRSD Interval 147 ms [facility] Work Phone: QT Interval 414 ms [facility] [employer] Work Phone: QTC Interval 502 ms [facility] [employer] Work Phone: T Wave [place] -50 degrees [facility] [employer] Work Phone: [facility] [employer] Work Phone: Nursing Noteon 01-14-2025 Nursing Note [...] the urinal. Education was again provided. Normal [facility] [employer] [facility] Vital signsOrdered By: Wilbert Pruitt on 01-14-2025 Heart rate 88 /min bpm [facility] [employer] Work Phone: CBC W Auto Differential pane l (Bld)on 01-13-2025 Basophils (Bld) [#/Vol] 0 10*3/uL 0.0 - 0.2 10*3/uL [facility] [employer] Basophils/100 WBC (Bld) 0.3 % 0.0 - 2.0 % [facility] [employer] Eosinophils (Bld) [#/Vol] 0.4 10*3/uL 0.0 - 0.5 10*3/uL [employer] Eosinophils/100 WBC (Bld) 4.1 % 0.0 - 6.0 % [facility] [employer] Erythrocyte distribution width (RBC) [Ratio] 13.6 % 11.5 - 15.0 % [facility] [employer] Hematocrit (Bld) [Volume fraction] 52.2 % High 40.0 - 52.0 % [facility] [employer] Hemoglobin (Bld) [Mass/Vol] 17.2 g/dL 13.0 - 18.0 g/dL [facility] [employer] Immature granulocytes (Bld) [#/Vol] 0 10*3/uL NINF - 0.1 10*3/uL [facility] [employer] Immature granulocytes/100 WBC (Bld) 0.3 % 0.0 - 2.0 % [facility] [employer] Interpretation and review of laboratory results Abnormal [facility] [employer] Lymphocytes (Bld) [#/Vol] 2.9 10*3/uL 1.0 - 4.3 10*3/uL [facility] [employer] Lymphocytes/100 WBC (Bld) 31.3 % 15.0 - 45.0 % [facility] [employer] MCH (RBC) [Entitic mass] 29.5 pg 26.0 - 34.0 pg [facility] [employer] MCHC (RBC) [Mass/Vol] 33 % 30.5 - 36.0 % [facility] [employer] MCV (RBC) [Entitic vol] 89.4 fL 77.0 - 99.0 fL [facility] [employer] Monocytes (Bld) [#/Vol] 1.1 10*3/uL High 0.0 - 0.9 10*3/uL [facility] [employer] Monocytes/100 WBC (Bld) 11.3 % 5.0 - 13.0 % [facility] [employer] Neutrophils (Bld) [#/Vol] 5 10*3/uL 1.8 - 7.5 10*3/uL [facility] [employer] Neutrophils/100 WBC (Bld) 52.7 % 38.0 - 82.0 % [facility] [employer] Nucleated RBC/100 WBC (Bld) [Ratio] 0 % [facility] [employer] Platelet mean volume (Bld) [Entitic vol] 10.3 fL 9.0 - 12.7 fL [facility] [employer] Platelets (Bld) [#/Vol] 190 10*3/uL 140 - 440 10*3/uL [facility] [employer] RBC (Bld) [#/Vol] 5.84 10*6/uL 4.40 - 5.9 0 10*6/uL [facility] [employer] WBC (Bld) [#/Vol] 9.4 10*3/uL 3.6 - 10.7 10*3/uL [facility] CBC WITH AUTO DIFFERENTIALon 01-13-2025 Basophils (Bld) [#/Vol] 0.0 10*3/uL Normal 0.0-0.2 [facility] Comment on above: Performed By: #### L [id number] ####Manufacturing Storeperson: WESTON IBARRA ([phone])[facility] ([address] Basophils/100 WBC (Bld) 0.3 % Normal 0.0-2.0 [facility] Comment on above: Performed By: #### L [id number] ####Manufacturing Storeperson: WESTON IBARRA ([phone])[facility])[address] [place] [address] Eosinophils (Bld) [#/Vol] 0.4 10*3/uL Normal 0.0-0.5 [facility] Comment on above: Performed By: #### L [id number] ####Manufacturing Storeperson: WESTON IBARRA ([phone])[facility])[address] [place] [address] Eosinophils/100 WBC (Bld) 4.1 % Normal 0.0-6.0 [facility] Comment on above: Performed By: #### L [id number] ####Manufacturing Storeperson: WESTON IBARRA ([phone])[facility])[address] [place] [address] Erythrocyte distribution width (RBC) [Ratio] 13.6 % Normal 11.5-15.0 [facility] Comment on above: Performed By: #### L [id number] ####Manufacturing Storeperson: WESTON IBARRA ([phone])[facility])[address] [place] [address] Hematocrit (Bld) [Volume fraction] 52.2 % High 40.0-52.0 [facility] Comment on above: Performed By: #### L [id number] ####Manufacturing Storeperson: WESTON IBARRA ([phone])[facility])[address] [place] [address] Hemoglobin (Bld) [Mass/Vol] 17.2 g/dL Normal 13.0-18.0 [facility] Comment on above: Performed By: #### L [id number] ####Manufacturing Storeperson: WESTON IBARRA ([phone])[facility])[address] [place] [address] IMMATURE GRANS % 0.3 % Normal 0.0-2.0 [facility] Comment on above: Performed By: #### L [id number] ####Manufacturing Storeperson: WESTON IBARRA ([phone])[facility])[address] [place] [address] IMMATURE GRANS ABSOLUTE 0.0 10*3/uL Normal <0.1 [facility] Comment on above: Performed By: #### L [id number] ####Manufacturing Storeperson: WESTON IBARRA ([phone])[facility])[address] [place] [address] Lymphocytes (Bld) [#/Vol] 2.9 10*3/uL Normal 1.0-4.3 [facility] Comment on above: Performed By: #### L [id number] ####Manufacturing Storeperson: WESTON IBARRA ([phone])[address] Lymphocytes/100 WBC (Bld) 31.3 % Normal 15.0-45.0 [facility] Comment on above: Performed By: #### L [id number] ####Manufacturing Storeperson: WESTON IBARRA ([phone])[facility])[address] [place] [address] MCH (RBC) [Entitic mass] 29.5 pg Normal 26.0-34.0 [facility] Comment on above: Performed By: #### L [id number] ####Manufacturing Storeperson: WESTON IBARRA ([phone])[address] MCHC 33.0 % Normal 30.5-36.0 [facility] Comment on above: Performed By: #### L [id number] ####Manufacturing Storeperson: WESTON IBARRA ([phone])[address] MCV (RBC) [Entitic vol] 89.4 fL Normal 77.0-99.0 [facility] Comment on above: Performed By: #### L [id number] ####Manufacturing Storeperson: WESTON IBARRA ([phone])[facility] [place] [address] [place] Monocytes (Bld) [#/Vol] 1.1 10*3/uL High 0.0-0.9 [facility] Comment on above: Performed By: #### L [id number] ####Manufacturing Storeperson: WESTON IBARRA ([phone])[facility] ([facility])[address] [place] [address] [place] Monocytes/100 WBC (Bld) 11.3 % Normal 5.0-13.0 [facility] Comment on above: Performed By: #### L [id number] ####Manufacturing Storeperson: WESTON IBARRA ([phone])[facility] ([facility])[address] [place] [address] NEUTROPHILS ABSOLUTE 5.0 10*3/uL Normal 1.8-7.5 [facility] Comment on above: Performed By: #### L [id number] ####Manufacturing Storeperson: WESTON IBARRA ([phone])[facility] ([facility])[address] [place] [address] Neutrophils/100 WBC (Bld) 52.7 % Normal 38.0-82.0 [facility] Comment on above: Performed By: #### L [id number] ####Manufacturing Storeperson: WESTON IBARRA ([phone])[facility] ([facility])[address] [place] [address] NRBC 0.0 /100 WBCs Normal 0.0-2.0 [facility] Comment on above: Performed By: #### L [id number] ####Manufacturing Storeperson: WESTON IBARRA ([phone])[facility] ([facility])[address] [place] [address] [place] Platelet mean volume (Bld) [Entitic vol] 10.3 fL Normal 9.0-12.7 [facility] Comment on above: Performed By: #### L [id number] ####Manufacturing Storeperson: WESTON IBARRA ([phone])[facility] ([facility])[address] [place] [address] [place] Platelets (Bld) [#/Vol] 190 10*3/uL Normal 140-440 [facility] Comment on above: Performed By: #### L [id number] ####Manufacturing Storeperson: WESTON IBARRA ([phone])[facility])[address] [place] [address] RBC (Bld) [#/Vol] 5.84 10*6/uL Normal 4.40-5.90 [facility] Comment on above: Performed By: #### L [id number] ####Manufacturing Storeperson: WESTON IBARRA ([phone])[facility] ([facility])[address] [place] [address] WBC (Bld) [#/Vol] 9.4 10*3/uL Normal 3.6-10.7 [facility] Comment on above: Performed By: #### L [id number] ####Manufacturing Storeperson: WESTON IBARRA ([phone])[facility])[address] [place] [address] COMPREHENSIVE METABOLIC PANE Deshaun 01-13-2025 Albumin [Mass/Vol] 3.3 g/dL Low 3.4-4.8 [facility] Comment on above: Performed By: #### Maggie [id number], [id number], [id number] ####Manufacturing Storeperson: WESTON IBARRA ([phone])[facility])[address] [place] [address] ALP [Catalytic activity/Vol] 67 U/L Normal 40-150 [facility] Comment on above: Performed By: #### Maggie [id number], LAB17, [id number] ####Manufacturing Storeperson: WESTON IBARRA ([phone])[facility])[address] [place] [address] ALT [Catalytic activity/Vol] 22 U/L Normal <40 [facility] Comment on above: Performed By: #### L [id number], LAB17, [id number] ####Manufacturing Storeperson: WESTON IBARRA ([phone])[facility])[address] [place] [address] [place] Anion gap [Moles/Vol] 9 mmol/L Normal 3-13 [facility] Comment on above: Performed By: #### Maggie [id number], LAB17, [id number] ####Manufacturing Storeperson: WESTON IBARRA ([phone])[facility] ([facility])[address] [place] [address] AST [Catalytic activity/Vol] 26 U/L Normal <34 [facility] Comment on above: Performed By: #### Maggie [id number], LAB17, [id number] ####Manufacturing Storeperson: WESTON IBARRA ([phone])[facility] [place] [address] Bilirubin [Mass/Vol] 0.6 mg/dL Normal <1.2 [facility] Comment on above: Performed By: #### Maggie [id number], LAB17, [id number] ####Manufacturing Storeperson: WESTON IBARRA ([phone])[facility] ([facility])[address] [place] [address] Calcium [Mass/Vol] 8.8 mg/dL Normal 8.8-10.0 [facility] Comment on above: Performed By: #### Maggie [id number], LAB17, [id number] ####Manufacturing Storeperson: WESTON IBARRA ([phone])[facility] ([facility])[address] [place] [address] [place] Chloride [Moles/Vol] 101 mmol/L Normal 98-107 [facility] Comment on above: Performed By: #### Maggie [id number], LAB17, [id number] ####Manufacturing Storeperson: WESTON IBARRA ([phone])[facility] [place] [address] [place] CO2 [Moles/Vol] 27 mmol/L Normal 23-31 [facility] Comment on above: Performed By: #### Maggie [id number], LAB17, [id number] ####Manufacturing Storeperson: WESTON IBARRA ([phone])[facility] ([facility])[address] [place] [address] [place] Creatinine [Mass/Vol] 1.31 mg/dL High 0.72-1.25 [facility] Comment on above: Performed By: #### Maggie [id number], LAB17, [id number] ####Manufacturing Storeperson: WESTON IBARRA ([phone])[facility])[address] [place] [address] GLOMERULAR FILTRATION RATE ML/MIN/1.73 SQ M.PREDICTED 61.9 mL/min/1.73m*2 Normal >60.0 [facility] Comment on above: Result Comment: Calc ulation based on the Chronic Kidney Disease Epidemiology Collaboration (CKD-EPI) equation refit without adjustment for race Performed By: #### L [id number], LAB17, [id number] ####Manufacturing Storeperson: WESTON IBARRA ([phone])[facility])[address] [place] [address] Glucose [Mass/Vol] 171 mg/dL High 82-115 [facility] Comment on above: Performed By: #### Maggie [id number], LAB17, [id number] ####Manufacturing Storeperson: WESTON IBARRA ([phone])[address] Potassium [Moles/Vol] 3.9 mmol/L Normal 3.5-5.1 [facility] Comment on above: Result Comment: [facility] potassium values may be up to 0.5 mmol/L lower than serum values. Performed By: #### Maggie [id number], LAB17, [id number] ####Manufacturing Storeperson: WESTON IBARRA ([phone])[facility])[address] [place] [address] Protein [Mass/Vol] 6.5 g/dL Normal 6.4-8.3 [facility] Comment on above: Performed By: #### Maggie [id number], LAB17, [id number] ####Manufacturing Storeperson: WESTON IBARRA ([phone])[address] Sodium [Moles/Vol] 137 mmol/L Normal 136-145 [facility] Comment on above: Performed By: #### L [id number], LAB17, [id number] ####Manufacturing Storeperson: WESTON IBARRA ([phone])[facility] ([facility])[address] [place] [address] Urea nitrogen [Mass/Vol] 14 mg/dL Normal 06-13 [facility] Comment on above: Performed By: #### L [id number], LAB17, [id number] ####Manufacturing Storeperson: WESTON IBARRA ([phone])[facility] [place] [address] COVID-19, Flu A/B, and RSV C omboon 01-13-2025 Interpretation and review of laboratory results Normal [facility] Methodology: real-time, RT-PCR [facility] Comprehensive metabolic 1998 panelon 01-13-2025 Albumin [Mass/Vol] 3.3 g/dL Low 3.4 - 4.8 g/dL [facility] ALP [Catalytic activity/Vol] 67 U/L 40 - 150 U/L [facility] ALT [Catalytic activity/Vol] 22 U/L NINF - 40 U/L [facility] Anion gap [Moles/Vol] 9 mmol/L 3 - 13 mmol/L [facility] AST [Catalytic activity/Vol] [facility] Bilirubin [Mass/Vol] 0.6 mg/dL [facility] 1.[facility] mg/dL [facility] Calcium [Mass/Vol] 8.8 mg/dL 8.8 - 10. 0 mg/dL [facility] Chloride [Moles/Vol] 101 mmol/L 98 - 10 7 mmol/L [facility] CO2 [Moles/Vol] 27 mmol/L 23 - 31 mmol/L [facility] Creatinine [Mass/Vol] 1.31 mg/dL High 0.72 - 1.25 mg/dL [facility] GFR/1.73 sq M.predicted (S/P/Bld) [Vol rate/Area] 61.9 mL/min - PINF [facility] Comment on above: Calculation based on the Chronic Kidney Disease Epidemiology Collaboration (CKD-EPI) equation refit without adjustment for race Glucose [Mass/Vol] 171 mg/dL High 82 - 115 mg/dL [facility] Interpretation and review of laboratory results Abnormal [facility] Potassium [Moles/Vol] 3.9 mmol/L 3.5 - 5.1 mmol/L [facility] Comment on above: Plasma potassium zaira ues may be up to 0.5 mmol/L lower than serum values. Protein [Mass/Vol] 6.5 g/dL 6.4 - 8.3 g/dL [facility] Sodium [Moles/Vol] 137 mmol/L 136 - 145 mmol/L [facility] Urea nitrogen [Mass/Vol] 14 mg/dL 9 - 23 mg/dL [facility] ED Nursing Noteon 01-13-2025 ED Nursing Note Report to SUZAN Interiano [facility] ED Provider Noteon ED Provider Note Emergency Department Encounter [facility] EMERGENCY DEPT Patient: Venkat Marsh : 1965 Date of Evaluation: 01/13/2025 ED Provider: Taqueria Taylor MD TRIAGE NOTE I independently examined and evaluated Venkat Marsh. I personally saw & evaluated the patient as the Clinician in Triage and performed a brief history and physical exam, established acuity, and ordered appropriate tests to develop basic plan of care. Patient will be seen by an TAOC, resident and/or my physician partner who will [...] diagnosed with pneumonia couple weeks ago at [facility] and just finished a course of antibiotics. [...] Taylor MD 01/13/25 1851 Emergency Department Encounter [facility] EMERGENCY DEPT Patient: Venkat Marsh : 1965 [...] 01/13/25 1901 Taqueria Taylor MD 01/14/25 0923 [facility] ED Provider Note Emergency Department Encounter [facility] EMERGENCY DEPT Patient: Venkat Marsh : 1965 [...] them. Pt also believes he has cellulitis KENAITZE Venkat Marsh is a 59 y.o. male [...] (congestive heart failure) (HCC) Depression Hyperlipidemia Hypertension AR (mitral incompetence) Past Surgical History: Procedure Laterality Date CORONARY ANGIOPLASTY WITH STENT PLACEMENT Social History Socioeconomic History Marital status: Single Tobacco Use Smoking status: Every Day Current packs/day: 0.50 Types: Cigarettes Substance and Sexual Activity Alcohol use: No Drug use: No Social Drivers of Health Food Insecurity: No Food Insecurity (04/14/2024) Received from [facility] Hunger Vital Sign Worried About Running Out of Food in the Last Year: Never true Ran Out of Food in the Last Year: Never true Transportation Needs: No Transportation Needs (04/14/2024) Received from [facility] PRAPARE - Transportation Lack of Transportation (Medical): No Lack of Transportation (Non-Medical): No Housing Stability: Unknown (04/14/2024) Received from [facility] Housing Stability Vital Sign Unable to [...] 414 ms QTC Interval 502 ms P [place] 43 degrees QRS [place] 136 degrees T Wave [place] -50 degrees PA Interval 259 ms CBC auto differential Collection [...] 10*3/uL Eos (more content not included)... Normal [facility] HEMOGLOBIN A1Con 01-13-2025 Glucose [Mass/Vol] 217 mg/dL Normal [facility] Comment on above: Result Comment: ELIO [...] testing. Performed By: #### L [id number] #### Manufacturing Storeperson: WESTON IBARRA ([phone]) [facility] ([facility]) [address] [place] [address] HEMOGLOBIN A1C 9.2 %HbA1C High <5.7 [facility] Comment on above: Result Comment: Norm al less than 5.7% Prediabetes 5.7% to 6.4% Diabetes 6.5% or higher --HgbA1C levels may not be accurate in patients who have renal disease, received recent blood transfusions, are anemic, or who have dyshemoglobinemia. Performed By: #### L [id number] #### Manufacturing Storeperson: WESTON IBARRA ([phone]) [facility] ([facility]) [address] [place] [address] HIGH SENSITIVITY TROPONIN, S ERIAL BASELINEon 01-13-2025 TROPONIN HS SERIAL BASELINE 24 ng/L Normal <=35 [facility] Comment on above: Result Comment: In i ndividuals presenting with symptoms > 2h, a baseline troponin <= 5 ng/L suggests acute cardiac injury is unlikely and further serial testing is generally not indicated. Performed By: #### L [id number], LAB17, [id number] ####Manufacturing Storeperson: WESTON IBARRA ([phone])[facility] ([facility])[address] [place] [address] HIGH SENSITIVITY TROPONIN, S ERIAL, SECOND TESTon 01-13-2025 2H TROPONIN HS (SERIAL 2ND TROPONIN) 22 ng/L Normal <=35 [facility] Comment on above: Result Comment: 2h t [...] injury is unlikely. Performed By: #### L [id number] ####Manufacturing Storeperson: WESTON IBARRA ([phone])[facility] [place] [address] Laboratory - Microbiology an d Antimicrobial susceptibilityon 01-13-2025 FLUAV RNA SUSANNAH+probe Ql (Resp) Not detected Not Detected [facility] FLUBV RNA SUSANNAH+probe Ql (Resp) Not detected Not Detected [facility] RSV RNA SUSANNAH+probe Ql (Resp) Not detected Not Detected [facility] SARS-CoV-2 (COVID-19) RNA SUSANNAH+probe Ql (Resp) Not detected Not Detected [facility] alth NT PRO BNPon 01-13-2025 Natriuretic peptide B (Bld) [Mass/Vol] 2488 pg/mL High <125 [facility] Comment on above: Performed By: #### L [id number], LAB17, [id number] ####Manufacturing Storeperson: WESTON IBARRA ([phone])[facility] ([facility])[address] [place] [address] Natriuretic peptide B [Mass/ Vol]on 01-13-2025 Interpretation and review of laboratory results Abnormal [facility] Natriuretic peptide B (Bld) [Mass/Vol] 2488 pg/mL High NINF - 125 pg/mL [facility] No Panel Informationon 01-13 2h Troponin HS (Serial 2nd Troponin) 22 ng/L NINF - 35 ng/L [facility] Comment on above: 2h troponin (2nd tro ponin) samples collected between 1h 40 min and 2h and 20 min of the baseline collection time can be utilized to interpret delta troponins as per [facility] algorithms. Samples collected outside this timeframe need to be interpreted clinically. Rising or falling troponin delta below 2 ng/L as compared to baseline value suggests that acute cardiac injury is unlikely. Interpretation and review of laboratory results Normal [facility] Interpretation and review of laboratory results Normal [facility] Troponin HS Serial Baseline 24 ng/L NINF - 35 ng/L [facility] Comment on above: In individuals prese nting with symptoms > 2h, a baseline troponin <= 5 ng/L suggests acute cardiac injury is unlikely and further serial testing is generally not indicated. [facility] SARS-COV-2, FLU A/B, AND RSV COMBOon 01-13-2025 SARS-CoV-2 (COVID-19) RNA SUSANNAH+probe Ql (Unsp spec) SARS-COV-2 Reference Not Detected Not Detected RESPIRATORY SYNCYTIAL VIRUS Reference Not Detected Not Detected INFLUENZA A (CEPHEID) Reference Not Detected Not Detected INFLUENZA B (CEPHEID) Reference Not Detected Not Detected ORDER COMMENTS: Methodology: real-time, RT-PCR Normal [facility] Comment on above: Performed By: #### L [id number] #### Manufacturing Storeperson: WESTON IBARRA ([id number]) [facility] ([facility]) [address] [place] [address] XR Chest Single viewon 01-13 1. No acute finding. Report Dictated on Electronically Signed By: Jorge Kelly MD Electronically Signed Date/Time: 01/13/2025 8:[address] [facility] Patient Name: VENKAT MARSH : 1965 Exam Date/Time: 01/13/2025 19:53 Procedure: XR CHEST 1 VIEW Ordering Provider: TAYLOR JESSE Reason For Exam: DYSPNEA SINGLE FRONTAL VIEW OF THE CHEST CLINICAL INDICATION: DYSPNEA TECHNIQUE: Single frontal view of the chest COMPARISON: 11/12/2016 FINDINGS: Lungs are clear. No pleural effusion or pneumothorax. No vascular congestion. Heart size moderately enlarged. [facility] Jorge Kelly MD - 01/13/2025 Patient [...] Electronically Signed Date/Time: 01/13/2025 8:04 PM EDT [facility] Radiology Study observation (narrative) [facility] alth XR Chest Single viewOrdered By: Jorge Kelly on 01-13-2025 [employer] Work Phone: Absolute lymphocyte countOrd ered By: Prieto Bey on 01-05-2025 Lymphocytes Auto (Unsp spec) [#/Vol] 2.96 10*3/uL 0.83-4.51 [facility] Absolute neutrophil countOrd ered By: Prieto Bey on 01-05-2025 Neutrophils (Bld) [#/Vol] 5.4 10*3/uL 2.0-7.7 [facility] Anion gap in Serum or Plasma Ordered By: Prieto Bey on 01-05-2025 Anion gap [Moles/Vol] 15 mmol/L 02-02 [facility] Automated lymphocyte count a s percentage of total leukocytesOrdered By: Prieto Maida on 01-05-2025 Lymphocytes/100 WBC Auto (Unsp spec) 29.7 % [facility] BUN/creatinine ratioOrdered By: Prieto Bey on 01-05-2025 Urea nitrogen/Creatinine [Mass ratio] 10.5 mg/mg - [facility] Basic Metabolic Profile (BMP )on 01-05-2025 BUN/CRE 10.5 RATIO Normal - [facility] Comment on above: Performed By: #### L 100.0100, L500.2500 ####[facility] [address] [place], [address] Calcium [Mass/Vol] 9.0 mg/dL Normal 7.6-11.0 [facility] Comment on above: Performed By: #### L 100.0100, L500.2500 ####[facility] [address] [place], [address] Chloride [Moles/Vol] 100 mmol/L Normal 98-108 [facility] Comment on above: Performed By: #### L 100.0100, L500.2500 ####[facility] [address] [place], [address] CO2 [Moles/Vol] 18.5 mmol/L Low 21.0-32.0 [facility] Comment on above: Performed By: #### L 100.0100, L500.2500 ####[facility] [address] [place], [address] Creatinine [Mass/Vol] 1.17 mg/dL Normal 0.70-1.20 [facility] Comment on above: Performed By: #### L 100.0100, L500.2500 ####[facility] [address] [place], [address] ECRCL 90.22 ml/min Normal 50-250 [facility] Comment on above: Performed By: #### L 100.0100, L500.2500 ####[facility] [address] [place], [address] GAP 15 Normal 5-15 [facility] Comment on above: Performed By: #### L 100.0100, L500.2500 ####[facility] [address] [place], [address] GFR/1.73 sq M.predicted among non-blacks MDRD (S/P/Bld) [Vol rate/Area] 71 mL/min/{1.73_m2} Normal >60 [facility] Comment on above: Result Comment: mL/m in/1.73m2 CKD-EPI Creatinine Equation (2020) Performed By: #### L 100.0100, L500.2500 ####[facility] [address] [place], [address] Glucose [Mass/Vol] 210 mg/dL High 70-99 [facility] Comment on above: Performed By: #### L 100.0100, L500.2500 ####[facility] [address] [place], [address] Potassium [Moles/Vol] 5.3 mmol/L High 3.3-5.1 [facility] Comment on above: Result Comment: Hemo lysis present, Results??could be affected. Spoke to Ruth, who spoke to the DR, about the hemolysis affecting the results, still wanted the results anyway ?? Performed By: #### L 100.0100, L500.2500 ####[facility] [address] [place], [address] Sodium [Moles/Vol] 134 mmol/L Normal 133-145 [facility] Comment on above: Performed By: #### L 100.0100, L500.2500 ####[facility] [address] [place], [address] Urea nitrogen [Mass/Vol] 12 mg/dL Normal 4-19 [facility] Comment on above: Performed By: #### L 100.0100, L500.2500 ####[facility] [address] [place], [address] Basophil percentageOrdered B y: Prieto Bey on 01-05-2025 Basophils/100 WBC (Bld) 0.4 % 0-1 [facility] Bedside Glucoseon 01-05-2025 FINGERSTICK GLU 220 mg/dL High 74-106 [facility] Comment on above: Result Comment: ANGEL BASSETT OF PATIENT CARE PER NURSING PROTOCOL Performed By: #### L 501.080 ####[facility] [address] [place], [address] CBC W/Diff, Automatedon 12-20 Absolute Lymph 2.96 X10 3/uL Normal 0.83-4.51 [facility] Comment on above: Performed By: #### L 100.0100, L500.2500 ####[facility] [address] [place], [address] Absolute Neut 5.4 X10 3/uL Normal 2.0-7.7 [facility] Comment on above: Performed By: #### L 100.0100, L500.2500 ####[facility] [address] [place], [address] Basophils/100 WBC (Bld) 0.4 % Normal 0-1 [facility] Comment on above: Performed By: #### L 100.0100, L500.2500 ####[facility] [address] [place], [address] Eosinophils/100 WBC (Bld) 6.5 % High 0-5 [facility] Comment on above: Performed By: #### L 100.0100, L500.2500 ####[facility] [address] [place], [address] Erythrocyte distribution width (RBC) [Ratio] 13.3 % Normal 11.6-14.6 [facility] Comment on above: Performed By: #### L 100.0100, L500.2500 ####[facility] [address] [place], [address] Hematocrit (Bld) [Volume fraction] 49.2 % Normal 40-54 [facility] Comment on above: Performed By: #### L 100.0100, L500.2500 ####[facility] [address] [place], [address] Hemoglobin (Bld) [Mass/Vol] 16.9 g/dL High 13.0-16.5 [facility] Comment on above: Performed By: #### L 100.0100, L500.2500 ####[facility] [address] [place], [address] IG% 0.500 Normal 0.0-0.9 [facility] Comment on above: Result Comment: IG% - Immature Granulocytes (promyelocytes, myelocytes and metamyelocytes) > 1% indicates that a LEFT SHIFT is Present. Performed By: #### L 100.0100, L500.2500 ####[facility] [address] [place], [address] Lymphocytes/100 WBC (Bld) 29.7 % Normal 19-41 [facility] Comment on above: Performed By: #### L 100.0100, L500.2500 ####[facility] [address] [place], [address] MCH (RBC) [Entitic mass] 30.2 pg Normal 27.0-32.0 [facility] Comment on above: Performed By: #### L 100.0100, L500.2500 ####[facility] [address] [place], [address] MCHC (RBC) [Mass/Vol] 34.3 g/dL Normal 32-36 [facility] Comment on above: Performed By: #### L 100.0100, L500.2500 ####[facility] [address] [place], [address] MCV (RBC) [Entitic vol] 87.9 fL Normal 80-94 [facility] Comment on above: Performed By: #### L 100.0100, L500.2500 ####[facility] [address] [place], [address] Monocytes/100 WBC (Bld) 8.4 % Normal 0-10 [facility] Comment on above: Performed By: #### L 100.0100, L500.2500 ####[facility] [address] [place], [address] Neutrophils/100 WBC (Bld) 54.5 % Normal 47-70 [facility] Comment on above: Performed By: #### L 100.0100, L500.2500 ####[facility] [address] [place], [address] Nucleated RBC (Bld) [#/Vol] 0 10*3/uL Normal 0-5 [facility] Comment on above: Performed By: #### L 100.0100, L500.2500 ####[facility] [address] [place], [address] Platelet mean volume (Bld) [Entitic vol] 11.0 fL Normal 6.2-12.0 [facility] Comment on above: Performed By: #### L 100.0100, L500.2500 ####[facility] [address] [place], [address] Platelets (Bld) [#/Vol] 231 10*3/uL Normal 150-450 [facility] Comment on above: Performed By: #### L 100.0100, L500.2500 ####[facility] [address] [place], [address] RBC (Bld) [#/Vol] 5.60 10*6/uL Normal 4.6-6.2 [facility] Comment on above: Performed By: #### L 100.0100, L500.2500 ####[facility] [address] [place], [address] RDW SD 42.8 fl Normal 35.1-43.9 [facility] Comment on above: Performed By: #### L 100.0100, L500.2500 ####[facility] [address] [place], [address] WBC (Bld) [#/Vol] 10.0 10*3/uL Normal 4.4-11.0 [facility] Comment on above: Performed By: #### L 100.0100, L500.2500 ####[facility] [address] [place], [address] Carbon dioxide, total [Moles /volume] in Central venous bloodOrdered By: Prieto Bey on 01-05-2025 CO2 [Moles/Vol] 18.5 mmol/L Low 21.0-32.0 [facility] Chloride assayOrdered By: Andrea Bey on 01-05-2025 Chloride [Moles/Vol] 100 mmol/L 98-108 [facility] Emergency Department Summary on 01-05-2025 Emergency Department Summary [facility] Medical Records Department [address] [place] [address] Emergency Department Summary 01/05/25 MR#: [id number] Acct: [id number] Name: VENKAT MARSH Rep #: [id number] : 1965 59 From: Prieto Lees PCP: [...] prednisonecaused leg swelling. Prior similar symptoms: Yes [facility] Medical History Congestive heart failure (CHF) BMI [...] Negative fo (more content not included)... Normal [facility] Eosinophil percentageOrdered By: Prieto Bey on 01-05-2025 Eosinophils/100 WBC (Bld) 6.5 % High 0-5 [facility] Erythrocyte distribution wid th (RBC) [Ratio]Ordered By: Prieto Bey on 01-05-2025 Erythrocyte distribution width (RBC) [Entitic vol] 42.8 fL 35.1-43.9 [facility] Erythrocyte distribution wid th ratioOrdered By: Prieto Bey on 01-05-2025 Erythrocyte distribution width (RBC) [Ratio] 13.3 % 11.6-14.6 [facility] Erythrocyte distribution wid th standard deviationOrdered By: Prieto Bey on 01-05-2025 Erythrocyte distribution width (RBC) [Ratio] 42.8 fl 35.1-43.9 [facility] Estimation of creatinine ailin aranceOrdered By: Prieto Bey on 01-05-2025 Estimated Creatinine Clearance Calc 90.22 ml/min 50-250 [facility] GFR/1.73 sq M.predicted alonso g non-blacks MDRD (S/P/Bld) [Vol rate/Area]Ordered By: Prieto Bey on 01-05-2025 Estimated GFR (MDRD) Non-Af Amer 71 >60 [facility] Comment on above: mL/min/1.73m2 CKD-EP I Creatinine Equation (2020) Glomerular filtration rate ( GFR) estimation/1.73 sq m using serum, plasma, or whole bOrdered By: Prieto Bey on 01-05-2025 GFR/1.73 sq M.predicted among non-blacks MDRD (S/P/Bld) [Vol rate/Area] 71 mL/min/{1.73_m2} >60 [facility] Comment on above: mL/min/1.73m2 CKD-EP I Creatinine Equation (2020) Glucose measurement at bedsi deOrdered By: Prieto Bey on 01-05-2025 Bedside Glucose (Misc Panel) 220 mg/dL [facility] 74-106 [facility] Comment on above: MANAGEMENT OF PATIEN T CARE PER NURSING PROTOCOL Glucose [Mass/Vol] 220 mg/dL High 74-106 [facility] Comment on above: MANAGEMENT OF PATIEN T CARE PER NURSING PROTOCOL Hematocrit Auto (Bld) [Volum e fraction]Ordered By: Prieto Bey on 01-05-2025 Hematocrit (Bld) [Volume fraction] 49.2 % 40-54 [facility] Hemoglobin measurementOrdere d By: Prieto Bey on 01-05-2025 Hemoglobin (Bld) [Mass/Vol] 16.9 g/dL High 13.0-16.5 [facility] Immature granulocytes/100 WB C Auto (Bld)Ordered By: Prieto Bey on 01-05-2025 Immature granulocytes/100 WBC (Bld) 0.500 % 0.0-0.9 [facility] Comment on above: IG% - Immature Granu locytes (promyelocytes, myelocytes and metamyelocytes) > 1% indicates that a LEFT SHIFT is Present. Lymphocytes Auto (Unsp spec) [#/Vol]Ordered By: Prieto Bey on 01-05-2025 Lymphocytes (Bld) [#/Vol] 2.96 10*3/uL 0.83-4.51 [facility] Lymphocytes/100 WBC Auto (Un sp spec)Ordered By: Prieto Bey on 01-05-2025 Lymphocytes/100 WBC (Bld) 29.7 % 19-41 [facility] MCV (mean corpuscular volume ) determinationOrdered By: Prieto Bey on 01-05-2025 MCV (RBC) [Entitic vol] 87.9 fL 80-94 [facility] Mean corpuscular hemoglobin (MCH) determinationOrdered By: Prieto Bey on 01-05-2025 MCH (RBC) [Entitic mass] 30.2 pg 27.0-32.0 [facility] Mean corpuscular hemoglobin concentration (MCHC) determinationOrdered By: Prieto Bey on 01-05-2025 MCHC (RBC) [Mass/Vol] 34.3 g/dL 32-36 [facility] Mean platelet volume determi nationOrdered By: Prieto Bey on 01-05-2025 Platelet mean volume (Bld) [Entitic vol] 11.0 fL 6.2-12.0 [facility] Monocyte percentageOrdered B y: Prieto Bey on 01-05-2025 Monocytes/100 WBC (Bld) 8.4 % 0-10 [facility] Neutrophil percentageOrdered By: Prieto Bey on 01-05-2025 Neutrophils/100 WBC (Bld) 54.5 % 47-70 [facility] Nucleated red blood cell per centageOrdered By: Prieto Bey on 01-05-2025 Nucleated RBC/100 WBC (Bld) [Ratio] 0 % 0-5 [facility] Platelet countOrdered By: Andrea Bey on 01-05-2025 Platelets (Bld) [#/Vol] 231 10*3/uL 150-450 [facility] Potassium (Unsp spec) [Mass/ Vol]Ordered By: Prieto Bey on 01-05-2025 Potassium [Moles/Vol] 5.3 mmol/L High 3.3-5.1 [facility] Comment on above: Hemolysis present, R esults could be affected. Spoke to Ruth, who spoke to the DR, about the hemolysis affecting the results, still wanted the results anyway Potassium measurement (mass/ volume)Ordered By: Prieto Bey on 01-05-2025 Potassium (Unsp spec) [Mass/Vol] 5.3 mmol/L High 3.3-5.1 [facility] Comment on above: Hemolysis present, R esults could be affected. Spoke to Ruth, who spoke to the DR, about the hemolysis affecting the results, still wanted the results anyway RBC Auto (Bld) [#/Vol]Ordere d By: Prieto Bey on 01-05-2025 RBC (Bld) [#/Vol] 5.60 10*6/uL 4.6-6.2 [facility] Serum creatinine measurement (mass/volume)Ordered By: Prieto Bey on 01-05-2025 Creatinine [Mass/Vol] 1.17 mg/dL 0.70-1.20 [facility] Serum glucose measurement (m ass/volume)Ordered By: Prieto Bey on 01-05-2025 Glucose [Mass/Vol] 210 mg/dL High 70-99 [facility] Serum or plasma calcium greer urement (mass/volume)Ordered By: Prieto Bey on 01-05-2025 Calcium [Mass/Vol] 9.0 mg/dL 7.6-11.0 [facility] Serum or plasma urea nitroge n measurement (mass/volume)Ordered By: Prieto Bey on 01-05-2025 Urea nitrogen [Mass/Vol] 12 mg/dL 4-19 [facility] Sodium levelOrdered By: Prieto Bey on 01-05-2025 Sodium [Moles/Vol] 134 mmol/L 133-145 [facility] White blood cell (WBC) count Ordered By: Prieto Bey on 01-05-2025 WBC (Bld) [#/Vol] 10.0 10*3/uL 4.4-11.0 [facility] Absolute lymphocyte countOrd ered By: Salty Werner on 12-23-2024 Lymphocytes Auto (Unsp spec) [#/Vol] 3.67 10*3/uL 0.83-4.51 [facility] Absolute neutrophil countOrd ered By: Salty Werner on 12-23-2024 Neutrophils (Bld) [#/Vol] 4.6 10*3/uL 2.0-7.7 [facility] Anion gap in Serum or Plasma Ordered By: Salty Werner on 12-23-2024 Anion gap [Moles/Vol] 12 mmol/L 5-15 [facility] Automated lymphocyte count a s percentage of total leukocytesOrdered By: Salty Werner on 12-23-2024 Lymphocytes/100 WBC Auto (Unsp spec) 36.5 % 19-41 [facility] BUN/creatinine ratioOrdered By: Salty Werner on 12-23-2024 Urea nitrogen/Creatinine [Mass ratio] 16.3 mg/mg 10- [facility] Basic Metabolic Profile (BMP )on 12-23-2024 BUN/CRE 16.3 RATIO Normal - [facility] Comment on above: Performed By: #### L 500.2500, L503.7505, L100.0100 ####[facility] [address] [place], [address] Calcium [Mass/Vol] 9.1 mg/dL Normal 7.6-11.0 [facility] Comment on above: Performed By: #### L 500.2500, L503.7505, L100.0100 ####[facility] [address] [place], [address] Chloride [Moles/Vol] 100 mmol/L Normal 98-108 [facility] Comment on above: Performed By: #### L 500.2500, L503.7505, L100.0100 ####[facility] [address] [place], [address] CO2 [Moles/Vol] 26.6 mmol/L Normal 21.0-32.0 [facility] Comment on above: Performed By: #### L 500.2500, L503.7505, L100.0100 ####[facility] [address] [place], [address] Creatinine [Mass/Vol] 1.32 mg/dL High 0.70-1.20 [facility] Comment on above: Performed By: #### L 500.2500, L503.7505, L100.0100 ####[facility] [address] [place], [address] ECRCL 81.66 ml/min Normal 50-250 [facility] Comment on above: Performed By: #### L 500.2500, L503.7505, L100.0100 ####[facility] [address] [place], [address] GAP 12 Normal 5-15 [facility] Comment on above: Performed By: #### L 500.2500, L503.7505, L100.0100 ####[facility] [address] [place], [address] GFR/1.73 sq M.predicted among non-blacks MDRD (S/P/Bld) [Vol rate/Area] 61 mL/min/{1.73_m2} Normal >60 [facility] Comment on above: Result Comment: mL/m in/1.73m2 CKD-EPI Creatinine Equation (2020) Performed By: #### L 500.2500, L503.7505, L100.0100 ####[facility] [address] [place], [address] Glucose [Mass/Vol] 218 mg/dL High 70-99 [facility] Comment on above: Performed By: #### L 500.2500, L503.7505, L100.0100 ####[facility] [address] [place], [address] Potassium [Moles/Vol] 3.9 mmol/L Normal 3.3-5.1 [facility] Comment on above: Performed By: #### L 500.2500, L503.7505, L100.0100 ####[facility] [address] [place], [address] Sodium [Moles/Vol] 138 mmol/L Normal 133-145 [facility] Comment on above: Performed By: #### L 500.2500, L503.7505, L100.0100 ####[facility] [address] [place], [address] Urea nitrogen [Mass/Vol] 22 mg/dL High 4-19 [facility] Comment on above: Performed By: #### L 500.2500, L503.7505, L100.0100 ####[facility] [address] [place], [address] Basophil percentageOrdered B y: Salty Werner on 12-23-2024 Basophils/100 WBC (Bld) 0.4 % 0-1 [facility] Brain/Head without Contrasto n 12-23-2024 Brain/Head without Contrast [facility] Imaging Services [address] [place] [address] Brain/Head without Contrast MR#: [id number] Acct: [id number] Name: VENKAT MARSH Rep #: [id number] : 1965 M 59 From: Jaun Hidalgo MD PCP: Care Physician,No Primary Status: REG ER Study: Brain/Head without Contrast Date of Exam: 01/13 Exam# [id number] Ordering Dr: Salty Werner DO PROCEDURE: BRAIN/HEAD [...] paranasal sinus disease as above. Reading Location: [id number] CC: Salty Werner DO; No Primary Care Physician Outbound Sales Professional: Signed Normal [facility] CBC W/Diff, Automatedon 04-0 Absolute Lymph 3.67 X10 3/uL Normal 0.83-4.51 [facility] Comment on above: Performed By: #### L 500.2500, L503.7505, L100.0100 ####[facility] [address] [place], [address] Absolute Neut 4.6 X10 3/uL Normal 2.0-7.7 [facility] Comment on above: Performed By: #### L 500.2500, L503.7505, L100.0100 ####[facility] [address] [place], [address] Basophils/100 WBC (Bld) 0.4 % Normal 0-1 [facility] Comment on above: Performed By: #### L 500.2500, L503.7505, L100.0100 ####[facility] [address] [place], [address] Eosinophils/100 WBC (Bld) 5.9 % High 0-5 [facility] Comment on above: Performed By: #### L 500.2500, L503.7505, L100.0100 ####[facility] [address] [place], [address] Erythrocyte distribution width (RBC) [Ratio] 13.3 % Normal 11.6-14.6 [facility] Comment on above: Performed By: #### L 500.2500, L503.7505, L100.0100 ####[facility] [address] [place], [address] Hematocrit (Bld) [Volume fraction] 53.1 % Normal 40-54 [facility] Comment on above: Performed By: #### L 500.2500, L503.7505, L100.0100 ####[facility] [address] [place], [address] Hemoglobin (Bld) [Mass/Vol] 17.3 g/dL High 13.0-16.5 [facility] Comment on above: Performed By: #### L 500.2500, L503.7505, L100.0100 ####[facility] [address] [place], [address] IG% 0.400 Normal 0.0-0.9 [facility] Comment on above: Result Comment: IG% - Immature Granulocytes (promyelocytes, myelocytes and metamyelocytes) > 1% indicates that a LEFT SHIFT is Present. Performed By: #### L 500.2500, L503.7505, L100.0100 ####[facility] [address] [place], [address] Lymphocytes/100 WBC (Bld) 36.5 % Normal 19-41 [facility] Comment on above: Performed By: #### L 500.2500, L503.7505, L100.0100 ####[facility] [address] [place], [address] MCH (RBC) [Entitic mass] 30.0 pg Normal 27.0-32.0 [facility] Comment on above: Performed By: #### L 500.2500, L503.7505, L100.0100 ####[facility] [address] [place], [address] MCHC (RBC) [Mass/Vol] 32.6 g/dL Normal 32-36 [facility] Comment on above: Performed By: #### L 500.2500, L503.7505, L100.0100 ####[facility] [address] [place], [address] MCV (RBC) [Entitic vol] 92.2 fL Normal 80-94 [facility] Comment on above: Performed By: #### L 500.2500, L503.7505, L100.0100 ####[facility] [address] [place], [address] Monocytes/100 WBC (Bld) 10.7 % High 0-10 [facility] Comment on above: Performed By: #### L 500.2500, L503.7505, L100.0100 ####[facility] [address] [place], [address] Neutrophils/100 WBC (Bld) 46.1 % Low 47-70 [facility] Comment on above: Performed By: #### L 500.2500, L503.7505, L100.0100 ####[facility] [address] [place], [address] Nucleated RBC (Bld) [#/Vol] 0 10*3/uL Normal 0-5 [facility] Comment on above: Performed By: #### L 500.2500, L503.7505, L100.0100 ####[facility] [address] [place], [address] Platelet mean volume (Bld) [Entitic vol] 10.6 fL Normal 6.2-12.0 [facility] Comment on above: Performed By: #### L 500.2500, L503.7505, L100.0100 ####[facility] [address] [place], [address] Platelets (Bld) [#/Vol] 223 10*3/uL Normal 150-450 [facility] Comment on above: Performed By: #### L 500.2500, L503.7505, L100.0100 ####[facility] [address] [place], [address] RBC (Bld) [#/Vol] 5.76 10*6/uL Normal 4.6-6.2 [facility] Comment on above: Performed By: #### L 500.2500, L503.7505, L100.0100 ####[facility] [address] [place], [address] RDW SD 44.8 fl High 35.1-43.9 [facility] Comment on above: Performed By: #### L 500.2500, L503.7505, L100.0100 ####[facility] [address] [place], [address] WBC (Bld) [#/Vol] 10.1 10*3/uL Normal 4.4-11.0 [facility] Comment on above: Performed By: #### L 500.2500, L503.7505, L100.0100 ####[facility] [address] [place], [address] Carbon dioxide, total [Moles /volume] in Central venous bloodOrdered By: Salty Werner on 12-23-2024 CO2 [Moles/Vol] 26.6 mmol/L 21.0-32.0 [facility] Chloride assayOrdered By: Merari Werner on 12-23-2024 Chloride [Moles/Vol] 100 mmol/L 98-108 [facility] Emergency Department Summary on 12-23-2024 Emergency Department Summary [facility] Medical Records Department [address] [place] [address] Emergency Department Summary 12/23/24 MR#: [id number] Acct: [id number] Name: VENKAT MARSH Rep #: [id number] : 1965 59 From: Salty Werner DO [...] with these multiple complaints presents for evaluation [facility] Medical History (Updated 12/23/24 @ 07:[address] Salty Werner, ) Congestive heart failure (CHF) BMI greater than [...] lesions across (more content not included)... Normal [facility] Eosinophil percentageOrdered By: Salty Werner on 12-23-2024 Eosinophils/100 WBC (Bld) 5.9 % High 0-5 [facility] Erythrocyte distribution wid th (RBC) [Ratio]Ordered By: Salty Werner on 12-23-2024 Erythrocyte distribution width (RBC) [Entitic vol] 44.8 fL High 35.1-43.9 [facility] Erythrocyte distribution wid th ratioOrdered By: Salty Werner on 12-23-2024 Erythrocyte distribution width (RBC) [Ratio] 13.3 % 11.6-14.6 [facility] Erythrocyte distribution wid th standard deviationOrdered By: Salty Werner on 12-23-2024 Erythrocyte distribution width (RBC) [Ratio] 44.8 fl High 35.1-43.9 [facility] Estimation of creatinine ailin aranceOrdered By: Salty Werner on 12-23-2024 Estimated Creatinine Clearance Calc 81.66 ml/min 50-250 [facility] GFR/1.73 sq M.predicted alonso g non-blacks MDRD (S/P/Bld) [Vol rate/Area]Ordered By: Salty Werner on 12-23-2024 Estimated GFR (MDRD) Non-Af Amer 61 >60 [facility] Comment on above: mL/min/1.73m2 CKD-EP I Creatinine Equation (2020) Glomerular filtration rate ( GFR) estimation/1.73 sq m using serum, plasma, or whole bOrdered By: Salty Werner on 12-23-2024 GFR/1.73 sq M.predicted among non-blacks MDRD (S/P/Bld) [Vol rate/Area] 61 mL/min/{1.73_m2} >60 [facility] Comment on above: mL/min/1.73m2 CKD-EP I Creatinine Equation (2020) Hematocrit Auto (Bld) [Volum e fraction]Ordered By: Salty Werner on 12-23-2024 Hematocrit (Bld) [Volume fraction] 53.1 % 40-54 [facility] Hemoglobin measurementOrdere d By: Salty Werner on 12-23-2024 Hemoglobin (Bld) [Mass/Vol] 17.3 g/dL High 13.0-16.5 [facility] Immature granulocytes/100 WB C Auto (Bld)Ordered By: Salty Werner on 12-23-2024 Immature granulocytes/100 WBC (Bld) 0.400 % 0.0-0.9 [facility] Comment on above: IG% - Immature Granu locytes (promyelocytes, myelocytes and metamyelocytes) > 1% indicates that a LEFT SHIFT is Present. L503.7505on 12-23-2024 Natriuretic peptide B (Bld) [Mass/Vol] 2826 pg/mL High <=900 [facility] Comment on above: Result Comment: Hear t Failure Unlikely: < 300 pg/mL Heart Failure Likely < 50 Years: > 450 pg/mL 50-75 Years: > 900 pg/mL >75 Years: > 1800 pg/mL Performed By: #### L 500.2500, L503.7505, L100.0100 ####[facility] [address] [place], [place], [id number] Laboratory - Chemistry and C hemistry - challengeOrdered By: Salty Werner on 12-23-2024 Natriuretic peptide B (Bld) [Mass/Vol] 2826 pg/mL High <900 [facility] Comment on above: Heart Failure Unlike ly: < 300 pg/mLHeart Failure Likely< 50 Years: > 450 pg/mL50-75 Years: > 900 pg/mL>75 Years: > 1800 pg/mL Lymphocytes Auto (Unsp spec) [#/Vol]Ordered By: Salty Werner on 12-23-2024 Lymphocytes (Bld) [#/Vol] 3.67 10*3/uL 0.83-4.51 [facility] Lymphocytes/100 WBC Auto (Un sp spec)Ordered By: Salty Werner on 12-23-2024 Lymphocytes/100 WBC (Bld) 36.5 % 19-41 [facility] MCV (mean corpuscular volume ) determinationOrdered By: Salty Werner on 12-23-2024 MCV (RBC) [Entitic vol] 92.2 fL 80-94 [facility] Mean corpuscular hemoglobin (MCH) determinationOrdered By: Salty Werner on 12-23-2024 MCH (RBC) [Entitic mass] 30.0 pg 27.0-32.0 [facility] Mean corpuscular hemoglobin concentration (MCHC) determinationOrdered By: Salty Werner on 12-23-2024 MCHC (RBC) [Mass/Vol] 32.6 g/dL 32-36 [facility] Mean platelet volume determi nationOrdered By: Salty Werner on 12-23-2024 Platelet mean volume (Bld) [Entitic vol] 10.6 fL 6.2-12.0 [facility] Monocyte percentageOrdered B y: Salty Werner on 12-23-2024 Monocytes/100 WBC (Bld) 10.7 % High 0-10 [facility] Neutrophil percentageOrdered By: Salty Werner on 12-23-2024 Neutrophils/100 WBC (Bld) 46.1 % Low 47-70 [facility] Nucleated red blood cell per centageOrdered By: Salty Werner on 12-23-2024 Nucleated RBC/100 WBC (Bld) [Ratio] 0 % 0-5 [facility] Platelet countOrdered By: Merari Werner on 12-23-2024 Platelets (Bld) [#/Vol] 223 10*3/uL 150-450 [facility] Potassium (Unsp spec) [Mass/ Vol]Ordered By: Salty Werner on 12-23-2024 Potassium [Moles/Vol] 3.9 mmol/L 3.3-5.1 [facility] Potassium measurement (mass/ volume)Ordered By: Salty Werner on 12-23-2024 Potassium (Unsp spec) [Mass/Vol] 3.9 mmol/L 3.3-5.1 [facility] RBC Auto (Bld) [#/Vol]Ordere d By: Salty Werner on 12-23-2024 RBC (Bld) [#/Vol] 5.76 10*6/uL 4.6-6.2 [facility] Serum creatinine measurement (mass/volume)Ordered By: Salty Werner on 12-23-2024 Creatinine [Mass/Vol] 1.32 mg/dL High 0.70-1.20 [facility] Serum glucose measurement (m ass/volume)Ordered By: Salty Werner on 12-23-2024 Glucose [Mass/Vol] 218 mg/dL High 70-99 [facility] Serum or plasma calcium greer urement (mass/volume)Ordered By: Salty Werner on 12-23-2024 Calcium [Mass/Vol] 9.1 mg/dL 7.6-11.0 [facility] Serum or plasma urea nitroge n measurement (mass/volume)Ordered By: Salty Werner on 12-23-2024 Urea nitrogen [Mass/Vol] 22 mg/dL High 4-19 [facility] Sodium levelOrdered By: Helder Werner on 12-23-2024 Sodium [Moles/Vol] 138 mmol/L 133-145 [facility] White blood cell (WBC) count Ordered By: Salty Werner on 12-23-2024 WBC (Bld) [#/Vol] 10.1 10*3/uL 4.4-11.0 [facility] CNPNon 12-21-2024 CNPN Telephone ([facility]) VENKAT MARSH ([id number]) 1965 M Date Time Provider Department 12/21/24 [...] by mouth daily before breakfast. - Insulin [place], Disposable, (PEN NEEDLE) 32 gauge x 5/32 [...] Encounter Status:Closed by MAGNOLIA MCMAHON on [facility]21/[facility] MAR[facility] ([id number]) 1965 M Date Time Provider Department 12/21/24 OSCAR BRIZUELA AGR[facility] During your visit today, we recorded the [...] been updated in the system. Bakari Dumont Assistant Hall Director I December 21, 2024 1:39 PM Allergies [...] by mouth daily before breakfast. - Insulin [place], Disposable, (PEN NEEDLE) 32 gauge x 5/32 [...] Bhavya, OA Problem List As Of Date 12/21/2024 Noted [...] Encounter Status:Closed by BAKARI DUMONT [facility]OT[facility]GFL ) VENKAT MARSH ([id number]) 1965 M Date Time Provider Department 12/08/24 12:45 PM ISSAC XIAO OTFL During your visit today, we recorded the following information about you: Pulse Respiration Blood pressure Weight 88/minute 16/minute 128/70 137.9 kg Height 1.702 m Issac Xiao MD 12/08/2024 1:29 PM Signed Come in sooner if there are problems or changes. Issac Xiao MD 12/18/2024 6:34 PM Signed KENAITZE: Venkat Marsh is a 59 year old, [...] that the thyroid FNA cytology/testing 11/09/2024 through [facility] was consistent with a benign follicular nodule. [...] by mouth daily before breakfast. - Insulin [place], Disposable, (PEN NEEDLE) 32 gauge x 5/32 [...] (more content not included)... Normal [facility] XR CHEST 1 VIEWon 12-03-2024 XR [...] 12/03/2024 11:22:01 PM Ordering Provider: YANA DUMONT [facility] BRIEF OP NOTon 11-30-2024 BRIEF OP NOT HNO ID: [id number] Author: HECTOR FULTON MD Service: Interventional Radiology Author Type: Physician Type: Brief Op Note Filed: 11/30/2024 08:27 Note Text: BRIEF OPERATIVE / PROCEDURE NOTE LOG ID: [id number] SURGERY/PROCEDURE DATE: 11/30/2024 INCISION/PROCEDURE START TIME: INCISION CLOSE/PROCEDURE END TIME: SURGEON(S)/PROCEDURAL IST(S) AND MATERIAL HAULER(S): Surgeons and Role: * Hector Fulton MD [...] DATE: November 30, 2024 TIME: 8:26 AM Normal [facility] Guidance for biopsy of Soft tissueon 11-30-2024 IMPRESSION: Ultrasound-guided biopsy of fatty left neck mass. Pathology results are pending. Outbound Sales Professional: PSCB Transcribe Date/Time: Nov 30 2024 8:37A Dictated by : HECTOR FULTON MD This examination was interpreted and the report reviewed and electronically signed by: HECTOR FULTON MD on Nov 30 2024 8:39AM EST [facility] * * *Final Report* * [...] applied. The patient tolerated the procedure well. [facility] Provider, [facility] - 11/30/2024 * * *Final Report* * [...] left neck mass. Pathology results are pending. Outbound Sales Professional: PSCB Transcribe Date/Time: Nov 30 2024 8:37A Dictated by : HECTOR FUTLON MD This examination was interpreted and the report reviewed and electronically signed by: HECTOR FULTON MD on Nov 30 2024 8:39AM EST [facility] Radiology Study observation (narrative) [facility] Guidance for biopsy of Soft tissueOrdered By: Ccf Provider on 11-30-2024 [facility] Pathology biopsy report Shahbaz (Tiss)on 11-30-2024 AP DISCLAIMER Normal [facility] Comment on above: Order Comment: Speci men Type: TISSUE SPECIMENOrdering Facility: [facility] Address: [address] [place] [address] Result Comment: Yvonne canales Developed Test (LDT) Disclaimer: Performance characteristics of immunohistochemical, immunofluorescent, and chromogenic in-situ hybridization tests have been determined by the performing laboratory within [facility]'s [facility] Pathology and Laboratory Medicine Department ([facility], [facility], [facility], [facility], [facility], [facility], or [facility]) in a manner consistent with CLIA requirements. One or more of these tests may not have been cleared or approved by the FDA. [facility] is regulated under CLIA as qualified to perform high-complexity testing. These tests are used for clinical purposes. These should not be regarded as investigational or for research. Positive and negative controls stain appropriately. Performed By: #### 6 6121-5 ####[facility] LABORATORYCLIA [id number] [address] [place] CASE REPORT Normal [facility] Comment on above: Order Comment: Speci men Type: TISSUE SPECIMENOrdering Facility: [facility] Address: [address] [place] [address] Result Comment: Surg [facility] Pathology Report Case: [id number] Authorizing Provider: Hector Fulton MD Collected: 11/30/2024 08:14 AM Ordering Location: [facility] Received: 11/30/2024 10:16 AM INTERVENTIONAL RADIOLOGY Pathologist: Avril Alcantar MD Specimen: Adipose Tissue Performed By: #### 6 6121-5 ####[facility] LABORATORYCLIA [id number] CLINICAL HISTORY Fatty left neck mass Normal [facility] Comment on above: Order Comment: Speci men Type: TISSUE SPECIMENOrdering Facility: [facility] Address: [address] [place] [address] Performed By: #### 6 6121-5 ####[facility] LABORATORYCLIA [id number] [address] FINAL DIAGNOSIS Normal [facility] Comment on above: Order Comment: Speci men Type: TISSUE SPECIMENOrdering Facility: [facility] Address: [address] [place] [address] Result Comment: Adip ose tissue, biopsy: - Scant adipose tissue and acellular polarizable material, insufficient for evaluation. - See comment. at 1143 EDT Performed By: #### 6 6121-5 ####[facility] LABORATORYCLIA [id number] [address] FINAL PERFORMING LAB Normal [facility] Comment on above: Order Comment: Speci men Type: TISSUE SPECIMENOrdering Facility: [facility] Address: [address] [place] [address] Result Comment: Diag nostic interpretation performed at: [facility], [address] [address] CLIA# [id number] Centralized Traffic Control Operator: Baron Romo MD Performed By: #### 6 6121-5 ####[facility] LABORATORYCLIA [id number] [place] [address] [place] GROSS DESCRIPTION Normal [facility] Comment on above: Order Comment: Speci men Type: TISSUE SPECIMENOrdering Facility: [facility] Address: [address], [place] [address] Result Comment: A. A dipose Tissue Received in formalin labeled adipose tissue are 3 segments of cylindrical tissue aggregating to 2.1 x 0.2 x 0.1 cm, dominguez and of a soft consistency. Totally submitted in one cassette. Gross examination performed at [facility], [address] [place] [address] RSA November 30, 2024 2:38 PM Performed By: #### 6 6121-5 ####[facility] LABORATORYCLIA [id number] [address] [place] US BIOPSY SOFT TISS [...] left neck mass. Pathology results are pending. Outbound Sales Professional: PSCB Transcribe Date/Time: Nov 30 2024 8:37A Dictated by : HECTOR FULTON MD This examination was interpreted and the report reviewed and electronically signed by: HECTOR FULTON MD on Nov 30 2024 8:39AM EST [id number] N [facility] VENK[facility] ([id number]) 1965 M Date Time Provider Department 11/15/24 ISSAC XIAO [facility] During your visit today, we recorded the following information about you: Germain Rojas MA 11/15/2024 10:58 AM Signed Called pt and told him that the [facility] thyroid FNA results are benign per Dr [...] tablet by mouth once daily. - Insulin Colfax, Disposable, (PEN NEEDLE) 32 gauge x 5/32 [...] by GERMAIN ROJAS on 11/15/24 [facility] [place] 11-14-2024 [facility] VENKAT MARSH ([id number]) 1965 M Date Time Provider Department 11/14/24 ISSAC XIAO [facility] During your visit today, we recorded [...] [D17.0] Order(s):IMAGING GUIDED BIOPSY CERVICAL LYMPH NODE [[id number]] Order #: [id number] Prescriptions as of 11/14/2024 - BD SAFETYGLIDE [...] tablet by mouth once daily. - Insulin Colfax, Disposable, (PEN NEEDLE) 32 gauge x 5/32 [...] OPHELIA Crooks Problem List As Of Date 11/14/2024 Noted [...] (HCC) [F*09/10/2023 11/02/2023 Cocaine dependence in remission ([facility]) [F14.21] 09/10/2023 Hypothyroidism [E03.9] Diabetes mellitus (HCC) [...] by KIKO MONTANA on 11/14/24 [facility] .Auto Diffon 11-09-2024 Basophil, Absolute 0.1 10 3/mcL Normal 0.0-0.2 [facility] Comment on above: Performed By: #### G FR, CBC, ADIFF, ANEU, MDW, TROPHS, BMP, PBNP #### [address] [address] Basophils/100 WBC (Bld) 0.7 % Normal 0.0-2.5 [facility] Comment on above: Performed By: #### G FR, CBC, ADIFF, ANEU, MDW, TROPHS, BMP, PBNP #### [address] [address] Eosinophil, Absolute 0.4 10 3/mcL Normal 0.0-0.7 [facility] Comment on above: Performed By: #### G FR, CBC, ADIFF, ANEU, MDW, TROPHS, BMP, PBNP #### [address] [address] Eosinophils/100 WBC (Bld) 4.3 % Normal 0.0-7.0 [facility] Comment on above: Performed By: #### G FR, CBC, ADIFF, ANEU, MDW, TROPHS, BMP, PBNP #### [address] [address] Lymphocyte, Absolute 3.2 10 3/mcL Normal 0.9-4.3 [facility] Comment on above: Performed By: #### G FR, CBC, ADIFF, ANEU, MDW, TROPHS, BMP, PBNP #### [address] [address] Lymphocytes/100 WBC (Bld) 30.5 % Normal 20.0-40.0 [facility] Comment on above: Performed By: #### G FR, CBC, ADIFF, ANEU, MDW, TROPHS, BMP, PBNP #### [address] [address] Monocyte, Absolute 1.1 10 3/mcL Normal 0.1-1.4 [facility] Comment on above: Performed By: #### G FR, CBC, ADIFF, ANEU, MDW, TROPHS, BMP, PBNP #### [address] [address] Monocytes/100 WBC (Bld) 10.7 % Normal 2.0-13.0 [facility] Comment on above: Performed By: #### G FR, CBC, ADIFF, ANEU, MDW, TROPHS, BMP, PBNP #### [address] [address] Neutrophils/100 WBC (Bld) 53.8 % Normal 50.0-75.0 [facility] Comment on above: Performed By: #### G FR, CBC, ADIFF, ANEU, MDW, TROPHS, BMP, PBNP #### [address] [address] .GFRon 11-09-2024 Estimated Glomerular Filtration Rate 56 ml/min/1.73sqm Normal [facility] Comment on above: Result Comment: Stages [...] ADIFF, ANEU, MDW, TROPHS, BMP, PBNP #### [address] [address] .MDWon 11-09-2024 Monocyte Distribution Width 16.89 Normal 0.00-20.00 [facility] Comment on above: Result Comment: For ED adult patients suspected of sepsis, MDW<=20.0 does not rule out sepsis or risk of sepsis Performed By: #### G FR, CBC, ADIFF, ANEU, MDW, TROPHS, BMP, PBNP #### [address] [address] .NEUABSon 11-09-2024 Neutrophil, Absolute 5.6 10 3/mcL Normal 2.3-8.1 [facility] Comment on above: Performed By: #### G FR, CBC, ADIFF, ANEU, MDW, TROPHS, BMP, PBNP #### [address] [address] BMPon 11-09-2024 BUN/Creatinine Ratio 10 ratio Normal 7-27 [facility] Comment on above: Performed By: #### G FR, CBC, ADIFF, ANEU, MDW, TROPHS, BMP, PBNP #### [address] [address] Calcium [Mass/Vol] 8.8 mg/dL Normal 8.4-10.2 [facility] Comment on above: Performed By: #### G FR, CBC, ADIFF, ANEU, MDW, TROPHS, BMP, PBNP #### [address] [address] Chloride [Moles/Vol] 102 mmol/L Normal 98-107 [facility] Comment on above: Performed By: #### G FR, CBC, ADIFF, ANEU, MDW, TROPHS, BMP, PBNP #### [address] [address] CO2 [Moles/Vol] 32 mmol/L High 23-31 [facility] Comment on above: Performed By: #### G FR, CBC, ADIFF, ANEU, MDW, TROPHS, BMP, PBNP #### [address] [address] Creatinine [Mass/Vol] 1.42 mg/dL High 0.70-1.30 [facility] Comment on above: Result Comment: Test ing performed on Siemens Dimension EXL analyzer using a modified kinetic Vineet technique. Performed By: #### G FR, CBC, ADIFF, ANEU, MDW, TROPHS, BMP, PBNP #### [address] [address] Electrolyte Balance 3.0 mEq/L Low 4.0-15.0 [facility] Comment on above: Performed By: #### G FR, CBC, ADIFF, ANEU, MDW, TROPHS, BMP, PBNP #### [address] [address] Glucose [Mass/Vol] 141 mg/dL High 80-115 [facility] Comment on above: Performed By: #### G FR, CBC, ADIFF, ANEU, MDW, TROPHS, BMP, PBNP #### [address] [address] Potassium [Moles/Vol] 4.2 mmol/L Normal 3.5-5.1 [facility] Comment on above: Performed By: #### G FR, CBC, ADIFF, ANEU, MDW, TROPHS, BMP, PBNP #### [address] [address] Sodium [Moles/Vol] 137 mmol/L Normal 136-145 [facility] Comment on above: Performed By: #### G FR, CBC, ADIFF, ANEU, MDW, TROPHS, BMP, PBNP #### [address] [address] Urea nitrogen [Mass/Vol] 14 mg/dL Normal 7-18 [facility] Comment on above: Performed By: #### G FR, CBC, ADIFF, ANEU, MDW, TROPHS, BMP, PBNP #### [address] [address] CBCon 11-09-2024 Erythrocyte distribution width (RBC) [Ratio] 13.4 % Normal 11.5-15.5 [facility] Comment on above: Performed By: #### G FR, CBC, ADIFF, ANEU, MDW, TROPHS, BMP, PBNP #### [address] [address] Hematocrit (Bld) [Volume fraction] 53.0 % High 40.0-52.0 [facility] Comment on above: Performed By: #### G FR, CBC, ADIFF, ANEU, MDW, TROPHS, BMP, PBNP #### [address] [address] Hgb 17.6 G/dL High 13.0-17.5 [facility] Comment on above: Performed By: #### G FR, CBC, ADIFF, ANEU, MDW, TROPHS, BMP, PBNP #### [address] [address] MCH (RBC) [Entitic mass] 30.5 pg Normal 27.0-33.0 [facility] Comment on above: Performed By: #### G FR, CBC, ADIFF, ANEU, MDW, TROPHS, BMP, PBNP #### [address] [address] MCHC 33.2 G/dL Normal 32.0-36.0 [facility] Comment on above: Performed By: #### G FR, CBC, ADIFF, ANEU, MDW, TROPHS, BMP, PBNP #### [address] [address] MCV (RBC) [Entitic vol] 91.8 fL Normal 81.0-100.0 [facility] Comment on above: Performed By: #### G FR, CBC, ADIFF, ANEU, MDW, TROPHS, BMP, PBNP #### [address] [address] Platelet 218 10 3/mcL Normal 150-450 [facility] Comment on above: Performed By: #### G FR, CBC, ADIFF, ANEU, MDW, TROPHS, BMP, PBNP #### [address] [place], [place] [address] Platelet mean volume (Bld) [Entitic vol] 8.4 fL Normal 6.4-10.5 [facility] Comment on above: Performed By: #### G FR, CBC, ADIFF, ANEU, MDW, TROPHS, BMP, PBNP #### [address] [place], [place] [address] RBC 5.77 10 6/mcL Normal 4.50-6.00 [facility] Comment on above: Performed By: #### G FR, CBC, ADIFF, ANEU, MDW, TROPHS, BMP, PBNP #### [address] [address] WBC 10.4 10 3/mcL Normal 4.5-10.8 [facility] Comment on above: Performed By: #### G FR, CBC, ADIFF, ANEU, MDW, TROPHS, BMP, PBNP #### [address] [address] CNOVon 11-09-2024 CNOV Office Visit (OTFGFL ) VENKAT MARSH ([id number]) 1965 [place] Date Time Provider Department 11/09/24 11:00 AM ISSAC XIAO OTFGFL During your visit today, we recorded the [...] Issac Xiao MD 11/10/2024 9:00 AM Signed KENAITZE: Venkat Marsh is a 59 year old, [...] The teeth have some crowns and fillings. CRANE ENGINEER: The mirror exam is prevented by gagging. [...] (more content not included)... Normal [facility] CYTOLOGY NON-GYNon 5 CASE REPORT [facility] Comment on above: Order Comment: Speci men Type: SPECIMEN OBTAINED BY ASPIRATIONOrdering Facility: [facility] Address: [address] [place] [address] Result Comment: [facility] Cytology Report Case: [id number] Authorizing Provider: Issac Xiao MD Collected: 11/09/2024 12:00 PM Ordering Location: [facility] Received: 11/09/2024 08:23 PM General Ear, Nose, and Throat (ENT) Pathologist: Raphael Coffman MD, PhD Specimen: Neck, Left Performed By: #### C YTONON ####[facility] LABIA [id number] [place] [address] [place] CLINICAL HISTORY Left neck mass, 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 Recommend tissue core biopsy (not repeating FNA) with immunohistochemical and molecular characterization , if lipoma or well-differentiated liposarcoma is concerned clinically. [facility] Comment on above: Order Comment: Speci men Type: SPECIMEN OBTAINED BY ASPIRATIONOrdering Facility: [facility] Address: [address] [id number] Performed By: #### C YTONON ####[facility] LABCLIA [id number] [address] [place] FINAL DIAGNOSIS [facility] Comment on above: Order Comment: Speci men Type: SPECIMEN OBTAINED BY ASPIRATIONOrdering Facility: [facility] Address: [address] [place] [address] Result Comment: A - Neck, Left, FNA. Fibroadipose tissue with focal atypia (see comment) at 0957 EST Performed By: #### C YTONON ####[facility] LABCLIA [id number] [address] FINAL PERFORMING LAB Normal [facility] Comment on above: Order Comment: Speci men Type: SPECIMEN OBTAINED BY ASPIRATIONOrdering Facility: [facility] Address: [address] [place] [address] Result Comment: Tech nical component, refrigerated national truck driver screening performed at [facility], [address] [place] [address] CLIA# [id number] Diagnostic interpretation performed at [facility], [address] [place] [address] CLIA# [id number] Centralized Traffic Control Operator: Jerome Howe M.D. Performed By: #### C YTONON ####[facility] LABCLIA [id number] [address] [place] GROSS DESCRIPTION A. Neck, Left Normal [facility] Comment on above: Order Comment: Speci men Type: SPECIMEN OBTAINED BY ASPIRATIONOrdering Facility: [facility] Address: [address] [place] [address] Result Comment: 30 c c clear colorless CytoLyt with particles. ThinPrep prepared and 4 smears. Performed By: #### C YTONON ####[facility] LABCLIA [id number] [address] OF [facility] LABORATORYOrdered By: SYSTEM SYSTEM on 11-09-2024 Basophils [...] above: Interpretive Data: T esting performed on [employer] Dimension EXL analyzer using a modified kinetic [...] Male: 0-76 ng/L Testing performed on Dimension EX using a homogeneous sandwich chemiluminescent immunoassay based on Extenda-Dent technology. Urea nitrogen [Mass/Vol] 14 mg/dL Normal 7 - 18 mg/dL AO ADM SS Urea nitrogen/Creatinine [Mass ratio] 10 ratio Normal 7 - 27 ratio AO ADM SS WBC (Bld) [#/Vol] 10.4 103/mcL Normal 4.5 - 10.8 10^3/mcL AO Workflow SS PBNPon 11-09-2024 Natriuretic peptide B (Bld) [Mass/Vol] 3972 pg/mL High 0-125 [facility] Comment on above: Result Comment: NT-p roBNP results of less than 300 pg/mL effectively rules out acute congestive heart failure with 99% negative predictive value. Performed By: #### G FR, CBC, ADIFF, ANEU, MDW, TROPHS, BMP, PBNP #### [address] [address] [facility] 11-09-2024 High Sensitivity Troponin I 44 ng/L Normal 0-76 [facility] Comment on above: Result Comment: High Sensitive Troponin I Reference Ranges: Female: 0-51 ng/L Male: 0-76 ng/L Testing performed on [employer] using a homogeneous sandwich chemiluminescent immunoassay based on Extenda-Dent technology. Performed By: #### G FR, CBC, ADIFF, ANEU, MDW, TROPHS, BMP, PBNP #### [address] [place], [place] [address] XR CHEST 1 VIEWon 11-09-2024 XR CHEST [...] 11/09/2024 10:01:46 PM Ordering Provider: SERGEI Peters [facility] CNOVon 11-07-2024 CNOV Office Visit (AGGENS3) SALMAVENKAT Millan ([id number]) 1965 Date Time Provider Department 11/07/24 2:15 PM INDER BRUCE AGGENS3 During your visit today, we recorded the following information about you: Pulse Respiration Blood pressure Weight 88/minute 20/minute 141/84 133.8 kg Height 1.702 m Inder Bruce MD 11/07/2024 4:53 PM Signed Venkat Blankenship Salma is a 59 year old male who [...] 1 tablet by mouth once daily. Insulin [place], Disposable, (PEN NEEDLE) 32 gauge x 5/32 [...] (primary encounter diagnosis) Coronary artery disease involving [place] coronary artery of [place] heart without angina pectoris Plan: ASSESSMENT/PLAN: 1. Neck mass - ICD9: 784.2, ICD10: R22.1 (primary diagnosis) Given the size and location of the mass I did recommend he be evaluated by ENT. Referral made to ENT. - CONSULT TO ENT 2. Coronary artery disease involving [place] coronary artery of [place] heart without angina pectoris - ICD9: 414.01, ICD10: I25.10 I spent 15 minutes in the visit, with more than 50% of the total [id number] time of the visit in counseling / coordination of care. Inder Bruce M.D., F.A.C.S. Referring Provider: OSCAR BRIZUELA [[id number]] Allergies As of Date: 11/07/2024 Noted Allergy [...] [R22.1] Other Visit Diagnosis:Coronary artery disease involving [place] coronary artery of [place] heart without angina pectoris [I25.10] Order(s):CONSULT TO ENT [9008] Order #: [id number]: 1 FUTURE Prescriptions as of 11/07/2024 - [...] (more content not included)... Normal [facility] CT NECK SOFT TISSUE W IVCONo n 11-01-2024 CT NECK SOFT TISSUE W IVCON * * *Final Report* * * DATE OF EXAM: Nov 01 2024 9:02AM [facility] 0013 - CT NECK SOFT TISSUE W [...] deviated to the right. Recommend surgical evaluation. Outbound Sales Professional[facility] Transcribe Date/Time: Nov 01 2024 9:18A Dictated by : GENESIS KOROMA MD This examination was interpreted and the report reviewed and electronically signed by: GENESIS KOROMA MD on Nov 01 2024 9:24AM EST [id number] Normal [facility] CT Neck W contrast Yomi 10-22 IMPRESSION: [...] deviated to the right. Recommend surgical evaluation. Outbound Sales Professional: [facility] Transcribe Date/Time: Nov 01 2024 9:18A Dictated by : GENESIS KOROMA MD This examination was interpreted and the report reviewed and electronically signed by: GENESIS KOROMA MD on Nov 01 2024 9:24AM EST DIVISION OF RADIOLOGY * * *Final Report* * * DATE OF EXAM: Nov 01 2024 9:02AM [facility] 0013 - CT NECK SOFT TISSUE W [...] lesion or infection. DIVISION OF RADIOLOGY Provider, [facility] - 11/01/2024 * * *Final Report* * * DATE OF EXAM: Nov 01 2024 9:02AM [facility] 0013 - CT NECK SOFT TISSUE W [...] deviated to the right. Recommend surgical evaluation. Outbound Sales Professional: [facility] Transcribe Date/Time: Nov 01 2024 9:18A Dictated by : GENESIS OKROMA MD This examination was interpreted and the report reviewed and electronically signed by: GENESIS KOROMA MD on Nov 01 2024 9:24AM EST [facility] Radiology Study observation (narrative) Katy ball [facility] CT Neck W contrast IVOrdered By: Ccf Provider on 11-01-2024 [facility] Comprehensive metabolic 2000 panelOrdered By: Jocelyn Roberson on 11-01-2024 Albumin [Mass/Vol] 4 g/dL 3.9 - 4.9 g/dL [facility] ALP [Catalytic activity/Vol] 65 U/L 38 - 113 U/L [facility] ALT [Catalytic activity/Vol] 31 U/L 10 - 54 U/L [facility] Anion gap [Moles/Vol] 11 mmol/L 8 - 15 mmol/L [facility] AST [Catalytic activity/Vol] 18 U/L 14 - 40 U/L [facility] Bilirubin [Mass/Vol] 0.3 mg/dL 0.2 - 1 .3 mg/dL [facility] Calcium [Mass/Vol] 9.1 mg/dL 8.5 - 10. 2 mg/dL [facility] Chloride [Moles/Vol] 101 mmol/L 98 - 10 7 mmol/L [facility] CO2 [Moles/Vol] 29 mmol/L 22 - 30 mmol/L [facility] Creatinine [Mass/Vol] 1.32 mg/dL High 0.73 - 1.22 mg/dL [facility] GFR/1.73 sq M.predicted among non-blacks MDRD (S/P/Bld) [Vol rate/Area] 61 mL/min/{1.73_m2} - PINF [facility] Comment on above: Estimated Glomerular Filtration [...] 178 mg/dL High 74 - 99 mg/dL [facility] Comment on above: The [place] Diabete s Association (ADA) provides guidance for [...] Standards of Medical Care in Diabetes 2016, [place] Diabetes Association. Diabetes Care. 2016.39(Suppl 1). Interpretation and review of laboratory results Abnormal [facility] Potassium [Moles/Vol] 3.8 mmol/L 3.7 - 5.1 mmol/L [facility] Protein [Mass/Vol] 7.1 g/dL 6.3 - 8.0 g/dL [facility] Sodium [Moles/Vol] 141 mmol/L 136 - 144 mmol/L [facility] Urea nitrogen [Mass/Vol] 12 mg/dL 9 - 24 mg/dL [facility] Comprehensive metabolic 2000 panelon 11-01-2024 Albumin [Mass/Vol] 4.0 g/dL Normal 3.9-4.9 [facility] Comment on above: Order Comment: Speci men Type: BLOOD SPECIMEN [facility] Address: [address] [place] [address] Performed By: #### 5 8410-2 #### [facility] LAB CLIA [id number] [address] [place] [address] [place] ALP [Catalytic activity/Vol] 65 U/L Normal 38-113 [facility] Comment on above: Order Comment: Speci men Type: BLOOD SPECIMEN [facility] Address: [address] [place] [address] Performed By: #### 5 8410-2 #### [facility] CLIA [id number] [address] [place] [address] [place] ALT [Catalytic activity/Vol] 31 U/L Normal 10-54 [facility] Comment on above: Order Comment: Speci men Type: BLOOD SPECIMEN [facility] Address: [address] [place] [address] Performed By: #### 5 8410-2 #### [facility] CLIA [id number] [address] [place] [address] [place] Anion gap [Moles/Vol] 11 mmol/L Normal 8-15 [facility] Comment on above: Order Comment: Speci men Type: BLOOD SPECIMEN [facility] Address: [address] [place] [address] Performed By: #### 5 8410-2 #### [facility] CLIA [id number] [address] [place] [address] [place] AST [Catalytic activity/Vol] 18 U/L Normal 14-40 [facility] Comment on above: Order Comment: Speci men Type: BLOOD SPECIMEN [facility] Address: [address] [place] [address] Performed By: #### 5 8410-2 #### [facility] CLIA [id number] [address] [place] [address] [place] Bilirubin [Mass/Vol] 0.3 mg/dL Normal 0.2-1.3 [facility] Comment on above: Order Comment: Speci men Type: BLOOD SPECIMEN [facility] Address: [address] [place] [address] Performed By: #### 5 8410-2 #### [facility] CLIA [id number] [address] [place] [address] [place] Calcium [Mass/Vol] 9.1 mg/dL Normal 8.5-10.2 [facility] Comment on above: Order Comment: Speci men Type: BLOOD SPECIMEN [facility] Address: [address] [place] [address] Performed By: #### 5 8410-2 #### [facility] CLIA [id number] [address] [place] [address] [place] Chloride [Moles/Vol] 101 mmol/L Normal 98-107 [facility] Comment on above: Order Comment: Speci men Type: BLOOD SPECIMEN [facility] Address: [address] [place] [address] Performed By: #### 5 8410-2 #### [facility] CLIA [id number] [address] [place] [address] [place] CO2 [Moles/Vol] 29 mmol/L Normal 22-30 [facility] Comment on above: Order Comment: Speci men Type: BLOOD SPECIMEN [facility] Address: [address] [place] [address] Performed By: #### 5 8410-2 #### [facility] CLIA [id number] [address] [place] [address] [place] Creatinine [Mass/Vol] 1.32 mg/dL High 0.73-1.22 [facility] Comment on above: Order Comment: Jazmin jolley Type: BLOOD SPECIMEN [facility] Address: [address] [place] [address] Performed By: #### 5 8410-2 #### [facility] CLIA [id number] [address] [place] [address] [place] Creatinine and Glomerular filtration rate.predicted panel (S/P/Bld) 61 mL/min/1.73m??? Normal >=60 [facility] Comment on above: Order Comment: Jazmin jolley Type: BLOOD SPECIMEN [facility] Address: [address] [place] [address] Result Comment: Eli mated Glomerular Filtration Rate [...] reflect actual GFR. Performed By: #### 5 8410-2 #### [facility] CLIA [id number] [address] [place] [address] [place] Glucose [Mass/Vol] 178 mg/dL High 74-99 [facility] Comment on above: Order Comment: Jazmin jolley Type: BLOOD SPECIMEN [facility] Address: [address] [place] [address] Result Comment: The [place] Diabetes Association (ADA) provides guidance for cutoff [...] Standards of Medical Care in Diabetes 2016, [place] Diabetes Association. Diabetes Care. 2016.39(Suppl 1). Performed By: #### 5 8410-2 #### [facility] CLIA [id number] [address] [place] [address] [place] Potassium [Moles/Vol] 3.8 mmol/L Normal 3.7-5.1 [facility] Comment on above: Order Comment: Speci men Type: BLOOD SPECIMEN [facility] Address: [address] [place] [address] Performed By: #### 5 8410-2 #### [facility] CLIA [id number] [address] [place] [address] [place] Protein [Mass/Vol] 7.1 g/dL Normal 6.3-8.0 [facility] Comment on above: Order Comment: Speci men Type: BLOOD SPECIMEN [facility] Address: [address] [place] [address] Performed By: #### 5 8410-2 #### [facility] CLIA [id number] [address] [place] [address] [place] Sodium [Moles/Vol] 141 mmol/L Normal 136-144 [facility] Comment on above: Order Comment: Speci men Type: BLOOD SPECIMEN [facility] Address: [address] [place] [address] Performed By: #### 5 8410-2 #### [facility] CLIA [id number] [address] [place] [address] [place] Urea nitrogen [Mass/Vol] 12 mg/dL Normal 9-24 [facility] Comment on above: Order Comment: Speci men Type: BLOOD SPECIMEN [facility] Address: [address] [place] [address] Performed By: #### 5 8410-2 #### [facility] CLIA [id number] [address] [place] [address] [place] HbA1c (Bld)on 11-01-2024 Average glucose Estimated from glycated hemoglobin (Bld) [Mass/Vol] 180 mg/dL [facility] Comment on above: eAG: (Estimated aver age glucose) is a calculated value from HgbA1c and is bank representative of the average blood glucose level in the last 2-3 month period. HbA1c (Bld) [Mass fraction] 7.9 % High 4.3 - 5.6 % [facility] Comment on above: [place] Diabetes As sociation guidelines indicate that patients with HgbA1c in the range 5.7-6.4% are at increased risk for development of diabetes, and intervention by lifestyle modification may be beneficial. HgbA1c greater or equal to 6.5% is considered diagnostic of diabetes. Interpretation and review of laboratory results Abnormal [facility] Average glucose Estimated from glycated hemoglobin (Bld) [Mass/Vol] 180 mg/dL Normal [facility] Comment on above: Order Comment: Jazmin jolley Type: BLOOD SPECIMENOrdering Facility: [facility] Address: [address] [place] [address] Result Comment: eAG: (Estimated average glucose) is a calculated value from HgbA1c and is bank representative of the average blood glucose level in the last 2-3 month period. Performed By: #### 5 5454-3 ####[facility] LABCLIA [id number] [address] [place] HbA1c (Bld) [Mass fraction] 7.9 % High 4.3-5.6 [facility] Comment on above: Order Comment: Jazmin jolley Type: BLOOD SPECIMENOrdering Facility: [facility] Address: [address] [place] [address] Result Comment: [place] Diabetes Association guidelines indicate that patients with HgbA1c in the range 5.7-6.4% are at increased risk for development of diabetes, and intervention by lifestyle modification may be beneficial. HgbA1c greater or equal to 6.5% is considered diagnostic of diabetes. Performed By: #### 5 5454-3 ####[facility] LABCLIA [id number] [place] [address] [place] Urinalysis complete panel (U )on 11-01-2024 Bacteria LM.HPF (Urine sed) [#/Area] Negative Negative /HPF [facility] Bilirubin Ql (U) Negative Negative [facility] Clarity (Unsp spec) Clear Clear [facility] Color (U) Yellow Yellow [facility] Epithelial cells LM.HPF (Urine sed) [#/Area] None Seen /HPF [facility] Glucose Test strip (U) [Mass/Vol] Negative Negative [facility] Hemoglobin Ql (U) Negative Negative [facility] Hyaline casts (Urine sed) [#/Area] 4-10 /LPF Abnormal 0 /LPF [facility] Interpretation and review of laboratory results Abnormal [facility] Ketones Ql (U) Negative Negative [facility] Leukocyte esterase Test strip Ql (U) Negative Negative [facility] Nitrite Ql (U) Negative Negative [facility] pH (U) 7 [pH] NINF - 8.5 [facility] Protein (U) [Mass/Vol] 3+ Abnormal Negative [facility] RBC LM.HPF (Urine sed) [#/Area] 0-2 /HPF 0-2 /HPF [facility] Specific gravity (U) [Rel density] 1.021 1.005 - 1.030 [facility] Urobilinogen Ql (U) 0.2 EU/dL 0.2-1.0 EU/dL [facility] WBC LM.HPF (Urine sed) [#/Area] 0-5 /HPF 0-5 /HPF [facility] This test was developed and its performance characteristics determined by [facility]'s Jaun JEna [facility] Pathology and Laboratory Medicine [place] ([facility]). It has not been cleared or approved by the FDA. [facility] is regulated under CLIA as qualified to perform high-complexity testing. This test is used for clinical purposes. It should not be regarded as investigational or for research. [facility] Bacteria LM.HPF (Urine sed) [#/Area] Negative Normal Negative [facility] Comment on above: Order Comment: Speci men Type: URINE SPECIMEN [facility] Address: [address] [place] [address] Performed By: #### 2 4356-8 #### [facility] CLIA [id number] [address] [place] [address] [place] Bilirubin Ql (U) Negative Normal Negative [facility] Comment on above: Order Comment: Speci men Type: URINE SPECIMEN [facility] Address: [address] [place] [address] Performed By: #### 2 4356-8 #### [facility] CLIA [id number] [address] [place] [address] [place] Clarity (Unsp spec) Clear Normal Clear [facility] Comment on above: Order Comment: Speci men Type: URINE SPECIMEN [facility] Address: [address] [place] [address] Performed By: #### 2 4356-8 #### [facility] CLIA [id number] [address] [place] [address] [place] Color (U) Yellow Normal Yellow [facility] Comment on above: Order Comment: Speci men Type: URINE SPECIMEN [facility] Address: [address] [place] [address] Performed By: #### 2 4356-8 #### [facility] CLIA [id number] [address] [place] [address] [place] Epithelial cells LM.HPF (Urine sed) [#/Area] None Seen Normal [facility] Comment on above: Order Comment: Speci men Type: URINE SPECIMEN [facility] Address: [address] [place] [address] Performed By: #### 2 4356-8 #### [facility] CLIA [id number] [address] [place] [address] [place] Glucose Test strip (U) [Mass/Vol] Negative Normal Negative [facility] Comment on above: Order Comment: Speci men Type: URINE SPECIMEN [facility] Address: [address] [place] [address] Performed By: #### 2 4356-8 #### [facility] CLIA [id number] [address] [place] [address] [place] Hemoglobin Ql (U) Negative Normal Negative [facility] Comment on above: Order Comment: Speci men Type: URINE SPECIMEN [facility] Address: [address] [place] [address] Performed By: #### 2 4356-8 #### [facility] CLIA [id number] [address] [place] [address] [place] Hyaline casts (Urine sed) [#/Area] 4-10 /LPF Abnormal 0 /LPF [facility] Comment on above: Order Comment: Speci men Type: URINE SPECIMEN [facility] Address: [address] [place] [address] Performed By: #### 2 4356-8 #### [facility] CLIA [id number] [address] [place] [address] [place] Ketones Ql (U) Negative Normal Negative [facility] Comment on above: Order Comment: Speci men Type: URINE SPECIMEN Ordering Facility: [facility] Address: [address] [place] [address] Performed By: #### 2 4356-8 #### [facility] CLIA [id number] [address] [place] [address] [place] Leukocyte esterase Test strip Ql (U) Negative Normal Negative [facility] Comment on above: Order Comment: Speci men Type: URINE SPECIMEN Ordering Facility: [facility] Address: [address] [place] [address] Performed By: #### 2 4356-8 #### [facility] CLIA [id number] [address] [place] [address] [place] Nitrite Ql (U) Negative Normal Negative [facility] Comment on above: Order Comment: Speci men Type: URINE SPECIMEN Ordering Facility: [facility] Address: [address] [place] [address] Performed By: #### 2 4356-8 #### [facility] CLIA [id number] [address] [place] [address] [place] pH (U) 7.0 [pH] Normal <8.5 [facility] Comment on above: Order Comment: Speci men Type: URINE SPECIMEN Ordering Facility: [facility] Address: [address] [place] [address] Performed By: #### 2 4356-8 #### [facility] CLIA [id number] [address] [place] [address] [place] Protein (U) [Mass/Vol] 3+ Abnormal Negative [facility] Comment on above: Order Comment: Speci men Type: URINE SPECIMEN Ordering Facility: [facility] Address: [address] [place] [address] Performed By: #### 2 4356-8 #### [facility] CLIA [id number] [address] [place] [address] [place] RBC LM.HPF (Urine sed) [#/Area] 0-2 /HPF Normal 0-2 /HPF [facility] Comment on above: Order Comment: Speci men Type: URINE SPECIMEN Ordering Facility: [facility] Address: [address] [place] [address] Performed By: #### 2 4356-8 #### [facility] CLIA [id number] [address] [place] [address] [place] Specific gravity (U) [Rel density] 1.021 Normal 1.005-1.030 [facility] Comment on above: Order Comment: Speci men Type: URINE SPECIMEN Ordering Facility: [facility] Address: [address] [place], [place] [address] Performed By: #### 2 4356-8 #### [facility] CLIA [id number] [address] [place] [address] [place] Urobilinogen Ql (U) 0.2 EU/dL Normal 0.2-1.0 EU/dL Cl [facility] Comment on above: Order Comment: Speci men Type: URINE SPECIMEN Ordering Facility: [facility] Address: [address] [place] [address] Performed By: #### 2 4356-8 #### [facility] CLIA [id number] [address] [place] [address] [place] WBC LM.HPF (Urine sed) [#/Area] 0-5 /HPF Normal 0-5 /HPF [facility] Comment on above: Order Comment: Speci men Type: URINE SPECIMEN Ordering Facility: [facility] Address: [address] [place] [address] Performed By: #### 2 4356-8 #### [facility] CLIA [id number] [address] [place] [address] [place] CNOVon 10-27-2024 CNOV Office Visit (FAMPWS ) VENKAT MARSH ([id number]) 1965 M Date Time Provider Department 10/27/24 [...] [address] Ponce and Dr. Conde. Notes that he stopped taking his Crestor [...] HISTORY Diagnosis Date Bipolar 1 disorder (HCC) psychiatry in [place] CAD S/P percutaneous coronary angioplasty 2011 AR PCI to LAD in 2012. Dr. Ponce CHF (congestive heart failure) ([facility]) Diabetes mellitus (HCC) History of acute myocardial infarction HTN (hypertension) Hypercholesteremia Hypothyroidism Morbid obesity with BMI of 45.0-49.9, adult ([facility]) Non-compliant patient ELBERT (obstructive sleep apnea) Tobacco [...] 1 tablet by mouth once daily. Insulin Colfax, Disposable, (PEN NEEDLE) 32 gauge x 5/32 [...] (heartburn). sacubitril-v (more content not included)... Normal [facility] CNCOon 10-18-2024 CNCO Letter Text Normal [facility] CNOVon 10-18-2024 CNOV Office Visit (AGINTMAC) VENKAT MARSH ([id number]) 1965 M Date Time Provider Department 10/18/24 [...] history of coronary artery disease s/p remote AR in 2012 with PCI to LAD,HFrEF (ECHO 03/2024 -17%) [...] so. He was also seen in the [place] clinic about 6- 8 weeks ago. He [...] (HCC) CAD S/P percutaneous coronary angioplasty 2011 AR Diabetes mellitus (HCC) History of acute myocardial infarction HTN (hypertension) Hypercholesteremia Hypothyroidism PAST SURGICAL HISTORY Procedure Laterality Date ANGIOPLASTY 2011 [facility] STENT COLONOSCOPY 2009 [facility] ARTHROSCOPY/SURGERY 2000 loose [...] (more content not included)... Normal [facility] CNOV Office Visit (AGGENS3) VENKAT MARSH ([id number]) 1965 M Date Time Provider Department 10/18/24 [...] (HCC) CAD S/P percutaneous coronary angioplasty 2011 AR Diabetes mellitus (HCC) History of acute myocardial infarction HTN (hypertension) Hypercholesteremia Hypothyroidism PAST SURGICAL HISTORY Procedure Laterality Date ANGIOPLASTY 2011 [facility] STENT COLONOSCOPY 2009 [place] ARTHROSCOPY/SURGERY 2000 loose [...] hours. Give with each insulin administration. Insulin Colfax, Disposable, (PEN NEEDLE) 32 gauge x 5/32 [...] (more content not included)... Normal [facility] Linda 10-18-2024 [facility] Telephone ([employer]) VENKAT MARSH ([id number]) 1965 M Date Time Provider Department 10/18/24 ORAL ABBASI During your visit today, we recorded the following information about you: Kathia Hoover 10/18/2024 3:15 PM Signed Referral to cardiology entered into the [facility] portal on 10/18/24. Confirmation number [id number]. Allergies As of Date: 10/18/2024 Noted Allergy Reaction AMOXICILLIN-POT CLAVULANATE 12/23/2023 10 - Anaphylaxis 7 - Swelling METFORMIN 04/26/2023 6 - Diarrhea LISINOPRIL 04/24/2023 3 - Cough SULFAMETHOXAZOLE-TRIM ETHOPRIM 10/20/2009 2 - Rash 4 - Hives 7 - Swelling Date Reviewed: 10/18/2024 Reviewed by: Yamini Delarosa LPN - Fully Assessed Reason for Visit: Referral Information [[id number]] Cmt: Cardiology Prescriptions as of 10/18/2024 - [...] tablet by mouth once daily. - Insulin Colfax, Disposable, (PEN NEEDLE) 32 gauge x 5/32 [...] by KATHIA HOOVER on 10/18/24 [facility] CNPN Telephone (Field Agent) VENKAT MARSH ([id number]) 1965 M Date Time Provider Department 10/18/24 ORAL ABBASI Field Agent During your visit today, we recorded the following information about you: Miky العراقي 10/18/2024 3:08 PM Signed Cardioogy referral placed in [facility] portal. Confirmation number: [id number] Miky العراقي, Assistant Hall Director October 18, 2024 3:06 PM Allergies As [...] tablet by mouth once daily. - Insulin Colfax, Disposable, (PEN NEEDLE) 32 gauge x 5/32 [...] OPHELIA Crooks Problem List As Of Date 10/18/2024 Noted [...] HTN (hypertension) [I10] Schizoaffective disorder, bipolar type ([facility]) [F*09/10/2023 11/02/2023 Cocaine dependence in remission ([facility]) [F14.21] 09/10/2023 Hypothyroidism [E03.9] Diabetes mellitus ([facility]) [E11.9] Cataract, nuclear sclerotic, both eyes [H25.13] 10/23/2023 Hyperopia of both eyes [H52.03] 10/23/2023 Regular astigmatism of both eyes [H52.223] 10/23/2023 Presbyopia of both eyes [H52.4] 10/23/2023 Mood disorder ([facility]) [F39] 11/02/2023 Acute systolic HF (heart failure) ([facility]) [I50.21]04/13/2024 Acute on chronic systolic (congestive) heart fa*04/13/2024 04/15/2024 Atrial fib/flutter, transient (HCC) [I48.91, I4*04/14/2024 Mixed hyperlipidemia [E78.2] 04/14/2024 Morbid obesity (HCC) [E66.01] 04/14/2024 Essential hypertension [I10] 04/14/2024 Chronic HFrEF (heart failure with reduced eject*04/14/2024 Typical atrial flutter (HCC) [I48.3] more content not included)... Normal [facility] Lipid 1996 panelon Cholesterol [Mass/Vol] 201 mg/dL High <200 [facility] Comment on above: Order Comment: Jazmin jolley Type: BLOOD SPECIMENOrdering Facility: [facility] Address: [address] [place] [address] Result Comment: <200 mg/dL, Desirable 200-239 mg/dL, Borderline high >239 mg/dL, High Performed By: #### 2 4331-1 ####[facility]ATORYCLIA [id number] [address] STATES OF [facility] Cholesterol in HDL [Mass/Vol] 43 mg/dL Normal >39 [facility] Comment on above: Order Comment: Jazmin jolley Type: BLOOD SPECIMENOrdering Facility: [facility] Address: [address] [place] [address] Result Comment: 40-5 9 mg/dL, Acceptable >59 mg/dL, High: Negative risk factor for coronary heart disease <40 mg/dL, Low: Positive risk factor for coronary heart disease Performed By: #### 2 4331-1 ####[facility]ORYCLIA [id number] [address] STATES OF [facility] Cholesterol in LDL [Mass/Vol] 124 mg/dL High <100 [facility] Comment on above: Order Comment: Jazmin jolley Type: BLOOD SPECIMENOrdering Facility: [facility] Address: [address] [place] [address] Result Comment: <100 mg/dL, Optimal 100-129 mg/dL, Near optimal/above optimal 130-159 mg/dL, Borderline high 160-189 mg/dL, High >189 mg/dL, Very high Secondary prevention optimal LDL Cholesterol levels are recommended to be < 70 mg/dL Performed By: #### 2 4331-1 ####[facility]ATORYCLIA [id number] [address] Cholesterol in LDL/Cholesterol in HDL [Mass ratio] 2.88 {ratio} High <2.54 [facility] Comment on above: Order Comment: Jazmin jolley Type: BLOOD SPECIMENOrdering Facility: [facility] Address: [address] [place] [address] Result Comment: Refe rence: 1. National Cholesterol Education Program ATP III Guideline At-A-Glance Quick Desk Reference: National Heart, Lung, and Blood [place]. National Institutes of Health. 2001: NIH Publication No. 01-3305. 2. An International Atherosclerosis Society position paper: global recommendations for the management of dyslipidemia: executive summary, Atherosclerosis. 2014: 232(2):410-413. Performed By: #### 2 4331-1 ####[facility]ORATORYCLIA [id number] [address] Cholesterol in VLDL [Mass/Vol] 34 mg/dL High <30 [facility] Comment on above: Order Comment: Jazmin jolley Type: BLOOD SPECIMENOrdering Facility: [facility] Address: [address] [place] [address] Performed By: #### 2 4331-1 ####[facility] LABORATORYCLIA [id number] [address] OF [facility] Cholesterol non HDL [Mass/Vol] 158 mg/dL High <130 [facility] Comment on above: Order Comment: Jazmin samreen Type: BLOOD SPECIMENOrdering Facility: [facility] Address: [address] [place] [address] Result Comment: <130 mg/dL, Optimal 130-159 mg/dL, Near optimal/above optimal 160-189 mg/dL, Borderline high 190-219 mg/dL, High >219 mg/dL, Very high Secondary prevention optimal non HDL Cholesterol levels are recommended to be <100 mg/dL Performed By: #### 2 4331-1 ####[facility]ORATORYCLIA [id number] [address] Cholesterol.total/Ana sterol in HDL [Mass ratio] 4.67 {ratio} Normal <5.10 [facility] Comment on above: Order Comment: Jazmin jolley Type: BLOOD SPECIMENOrdering Facility: [facility] Address: [address] [place] [address] Performed By: #### 2 4331-1 ####[facility]ORATORYCLIA [id number] [address] FASTING TIME 10 hrs Normal [facility] Comment on above: Order Comment: Speci men Type: BLOOD SPECIMENOrdering Facility: [facility] Address: [address] [place] [address] Performed By: #### 2 4331-1 ####[facility]ATORYCLIA [id number] [address] Triglyceride [Mass/Vol] 169 mg/dL High <150 [facility] Comment on above: Order Comment: Specchad jolley Type: BLOOD SPECIMENOrdering Facility: [facility] Address: [address] [place] [address] Result Comment: <150 mg/dL, Normal 150-199 mg/dL, Borderline high 200-499 mg/dL, High >499 mg/dL, Very high Performed By: #### 2 4331-1 ####[facility]ATORYCLIA [id number] [address] Linda 10-13-2024 SO[facility] Telephone (AREAZL) VENKAT MARSH ([id number]) 1965 M Date Time Provider Department 10/13/24 YULIET FONG During your visit today, we recorded the following information about you: Jelena Oleary 10/13/2024 3:50 PM Signed Faxed Diagnosis verification letter To [facility] on 10/13/24 - Attn Leeann [phone] Scanned fax confirmation into epic on 10/13/24 [...] tablet by mouth once daily. - Insulin Colfax, Disposable, (PEN NEEDLE) 32 gauge x 5/32 [...] Encounter Status:Closed by JELENA OLEARY on 10/18/24 [facility] [place] 10-12-2024 J[facility] Telephone (WILLIL) VENKAT MARSH ([id number]) 1965 M Date Time Provider Department 10/12/24 [...] need written permission to release records to [facility]. Please call back ( I still need [facility] address phone number - etc I think I have Leeann cell #) Does she want progress notes regarding patient or just 1 pg diagnosis form completed. I also called and spoke to patient on 10/12/24 At 11:30 am he thought Sasha Tomlinson already took care of this (release) I told Venkat I will upload Release of Record form into [employer] for him to print out and sign this afternoon if I don't hear back from Leeann at [facility] October 12, 2024 12:04 PM Lashanda Olearykki 10/12/2024 3:27 PM Signed I called Leeann back on 10/12/24 3pm - let her know I received the release of records I scanned both forms into [employer] - we have release from [facility] to [facility] and release to Clinic form I also called Venkat back- and spoke with him on 10/12/24 explained I don't need to send him our release of record form I received the proper one from Leeann I put form to be completed into Dr Fong mailbox today - there is an extra blank copy scanned into [employer] [facility] October 12, 2024 3:27 PM Yuliet Fong DO 10/13/2024 9:59 AM Signed Form filled out and left with [facility] 10/13/24 Allergies As of Date: 10/12/2024 Noted [...] tablet by mouth once daily. - Insulin Colfax, Disposable, (PEN NEEDLE) 32 gauge x 5/32 [...] OPHELIA Crooks Problem List As Of Date 10/12/2024 Noted Resolved CAD (coronary artery disease) [I25.10] 09/04/2014 S/P coronary artery stent placement [Z95.5] 09/04/2014 Left bundle branch block (LBBB) on electrocardi*09/04/20 14 H/O myocardial infarction, gr (more content not included)... Normal [facility] CNPNon 10-11-2024 CNPN Telephone (AGINTMAC) VENKAT MARSH ([id number]) 1965 M Date Time Provider Department 10/11/24 [facility] During your visit today, we recorded the following information about you: Miky العراقي 10/11/2024 8:52 AM Signed Patient called requesting a referral to a specialist for the large bump on the back on his neck. Patient states he has imaging in October last year and it is still bothering him. Miky العراقي, Assistant Hall Director October 11, 2024 8:52 AM Gavin Betancur DO 10/13/2024 10:14 PM Signed Consult placed to general surgery for possible surgical removal of neck lipoma. Bakari Dumont 10/14/2024 8:39 AM Addendum Referral placed in portal Confirmation number: [id number] Patient has been made aware and will call to get scheduled. Bakari Dumont Assistant Hall Director I October 14, 2024 8:37 AM Allergies [...] of neck [D17.0] Order(s):CONSULT TO GENERAL SURGERY [9046] Order #: [id number]: 1 FUTURE Prescriptions as of 10/14/2024 - [...] tablet by mouth once daily. - Insulin Colfax, Disposable, (PEN NEEDLE) 32 gauge x 5/32 [...] HTN (hypertension) [I10] Schizoaffective disorder, bipolar type ([facility]) [F*09/10/2023 11/02/2023 Cocaine dependence in remission ([facility]) [F14.21] 09/10/2023 Hypothyroidism [E03.9] Diabetes mellitus ([facility]) [E11.9] Cataract, nuclear sclerotic, both eyes [H25.13] 10/23/2023 Hyperopia of both eyes [H52.03] 10/23/2023 Regular astigmatism of both eyes [H52.223] 10/23/2023 Presbyopia of both eyes [H52.4] 10/23/2023 Mood disorder ([facility]) [F39] 11/02/2023 Acute systolic HF (heart failure) ([facility]) [I50.21]04/13/2024 Acute on chronic systolic (congestive) heart fa*04/13/2024 04/15/2024 Atrial fib/flutter, transient (HCC) [I48.91, I4*04/14/2024 Mixed hyperlipidemia [E78.2] (more content not included)... Normal [facility] CNPNon 10-07-2024 CNPN Telephone (ARESCL) VENKAT MARSH ([id number]) 1965 M Date Time Provider Department 10/07/24 YULIET FONG ARETISH During your visit today, we recorded the following information about you: Jelena Oleary 10/07/2024 10:38 AM Addendum Leeann (Recovery Mgr) from Sasha Tomlinson [phone] Called on 10/07/24 left a message on [...] tablet by mouth once daily. - Insulin Colfax, Disposable, (PEN NEEDLE) 32 gauge x 5/32 [...] Bhavya, OA Problem List As Of Date 10/07/2024 [...] HTN (hypertension) [I10] Schizoaffective disorder, bipolar type ([facility]) [F*09/10/2023 11/02/2023 Cocaine dependence in remission ([facility]) [F14.21] 09/10/2023 Hypothyroidism [E03.9] Diabetes mellitus ([facility]) [E11.9] Cataract, nuclear sclerotic, both eyes [H25.13] 10/23/2023 Hyperopia of both eyes [H52.03] 10/23/2023 Regular astigmatism of both eyes [H52.223] 10/23/2023 Presbyopia of both eyes [H52.4] 10/23/2023 Mood disorder ([facility]) [F39] 11/02/2023 Acute systolic HF (heart failure) ([facility]) [I50.21]04/13/2024 Acute on chronic systolic (congestive) heart fa*04/13/2024 04/15/2024 Atrial fib/flutte (more content not included)... Normal [facility] [place] 10-04-2024 CNPN Telephone (ARESCL) SALMAVENKAT Krzysztof ([id number]) 1965 M Date Time Provider Department 10/04/24 YULIET FONG ARETISH During your visit today, we recorded the following information about you: Jelena Oleary 10/04/2024 10:18 AM Signed No Show Documentation Venkat Blankenship Salma no showed for an appointment on [...] tablet by mouth once daily. - Insulin Colfax, Disposable, (PEN NEEDLE) 32 gauge x 5/32 [...] Bhavya, OA Problem List As Of Date 10/04/2024 [...] 04/14/2024 Chron (more content not included)... Normal [facility] 12 Lead EKGon 08-31-2024 12 Lead EKG [facility] Cardiovascular Services [address] [place] [address] 12 Lead EKG 08/31/24 0845 MR#: [id number] Acct: [id number] Name: VENKAT MARSH Rep #: [id number] : 1965 59 From: Yari Black MD [...] ECG Confirmed by KUMAR ALONSO, AL ([id number]), make up editor HOMA CUEVA ([id number]) on 09/07/2024 2:00:19 PM Referred By: Confirmed By: AL BLACK MD 09/07/24 1400 Date Yari Black MD CC: Dr. Terry Gould MD; No Primary Care Physician Signed Normal [facility] Absolute neutrophil countOrd ered By: Terry Gould on 08-31-2024 Neutrophils (Bld) [#/Vol] 3.6 10*3/uL 2.0-7.7 [facility] Albumin to globulin ratioOrd ered By: Terry Gould on 08-31-2024 Albumin/Globulin [Mass ratio] 0.9 {ratio} 0.9-2.4 [facility] BNP (brain natriuretic pepti de measurement)Ordered By: Terry Gould on 08-31-2024 Natriuretic peptide B (Bld) [Mass/Vol] 124.7 pg/mL High 0-100 [facility] BNP,B-Type NATRIURETIC PEPTI Keith 08-31-2024 Natriuretic peptide B (Bld) [Mass/Vol] 124.7 pg/mL High 0-100 [facility] Comment on above: Performed By: #### L 503.6635, L100.0100, L503.6005, L500.4050, L501.4020 #### [facility] [address] [place], [address] Basophil percentageOrdered B y: Terry Marroquino on 08-31-2024 Basophils/100 WBC (Bld) 0.4 % 0-1 [facility] Bedside Glucoseon 08-31-2024 FINGERSTICK GLU 191 mg/dL High 74-106 [facility] Comment on above: Result Comment: ANGEL BASSETT OF PATIENT CARE PER NURSING PROTOCOL Performed By: #### L 501.080 #### [facility] [address] [place], [address] Bilirubin, totalOrdered By: Terry Gould on 08-31-2024 Bilirubin [Mass/Vol] 0.30 mg/dL 0.20-1.00 [facility] Comment on above: For patients on eltr ombopag therapy, use of Dimension [place] TBIL is not recommended. Blood urea nitrogen (BUN)/cr eatinine ratioOrdered By: Terry Gould on 08-31-2024 Urea nitrogen/Creatinine [Mass ratio] 11.1 mg/mg 10-20 [facility] CBC W/Diff, Automatedon 08-21 Absolute Lymph 4.29 X10 3/uL Normal 0.83-4.51 [facility] Comment on above: Performed By: #### L 503.6620, L100.0100, L503.6005, L500.4050, L501.4020 #### [facility] [address] [place], [address] Absolute Neut 3.6 X10 3/uL Normal 2.0-7.7 [facility] Comment on above: Performed By: #### L 503.6620, L100.0100, L503.6005, L500.4050, L501.4020 #### [facility] [address] [place], [address] Basophils/100 WBC (Bld) 0.4 % Normal 0-1 [facility] Comment on above: Performed By: #### L 503.6620, L100.0100, L503.6005, L500.4050, L501.4020 #### [facility] [address] [place], [address] Eosinophils/100 WBC (Bld) 9.7 % High 0-5 [facility] Comment on above: Performed By: #### L 503.6620, L100.0100, L503.6005, L500.4050, L501.4020 #### [facility] [address] [place], [address] Erythrocyte distribution width (RBC) [Ratio] 12.3 % Normal 11.6-14.6 [facility] Comment on above: Performed By: #### L 503.6620, L100.0100, L503.6005, L500.4050, L501.4020 #### [facility] [address] [place], [address] Hematocrit (Bld) [Volume fraction] 52.9 % Normal 40-54 [facility] Comment on above: Performed By: #### L 503.6620, L100.0100, L503.6005, L500.4050, L501.4020 #### [facility] [address] [place], [address] Hemoglobin (Bld) [Mass/Vol] 17.8 g/dL High 13.0-16.5 [facility] Comment on above: Performed By: #### L 503.6620, L100.0100, L503.6005, L500.4050, L501.4020 #### [facility] [address] [place], [address] IG% 0.400 Normal 0.0-0.9 [facility] Comment on above: Result Comment: IG% - Immature Granulocytes (promyelocytes, myelocytes and metamyelocytes) > 1% indicates that a LEFT SHIFT is Present. Performed By: #### L 503.6620, L100.0100, L503.6005, L500.4050, L501.4020 #### [facility] [address] [place], [address] Lymphocytes/100 WBC (Bld) 44.4 % High 19-41 [facility] Comment on above: Performed By: #### L 503.6620, L100.0100, L503.6005, L500.4050, L501.4020 #### [facility] [address] [place], [address] MCH (RBC) [Entitic mass] 31.4 pg Normal 27.0-32.0 [facility] Comment on above: Performed By: #### L 503.6620, L100.0100, L503.6005, L500.4050, L501.4020 #### [facility] [address] [place], [address] MCHC (RBC) [Mass/Vol] 33.6 g/dL Normal 32-36 [facility] Comment on above: Performed By: #### L 503.6620, L100.0100, L503.6005, L500.4050, L501.4020 #### [facility] [address] [place], [address] MCV (RBC) [Entitic vol] 93.5 fL Normal 80-94 [facility] Comment on above: Performed By: #### L 503.6620, L100.0100, L503.6005, L500.4050, L501.4020 #### [facility] [address] [place], [address] Monocytes/100 WBC (Bld) 7.8 % Normal 0-10 [facility] Comment on above: Performed By: #### L 503.6620, L100.0100, L503.6005, L500.4050, L501.4020 #### [facility] [address] [place], [address] Neutrophils/100 WBC (Bld) 37.3 % Low 47-70 [facility] Comment on above: Performed By: #### L 503.6620, L100.0100, L503.6005, L500.4050, L501.4020 #### [facility] [address] [place], [address] Nucleated RBC (Bld) [#/Vol] 0 10*3/uL Normal 0-5 [facility] Comment on above: Performed By: #### L 503.6620, L100.0100, L503.6005, L500.4050, L501.4020 #### [facility] [address] [place], [address] Platelet mean volume (Bld) [Entitic vol] 9.9 fL Normal 6.2-12.0 [facility] Comment on above: Performed By: #### L 503.6620, L100.0100, L503.6005, L500.4050, L501.4020 #### [facility] [address] [place], [address] Platelets (Bld) [#/Vol] 255 10*3/uL Normal 150-450 [facility] Comment on above: Performed By: #### L 503.6620, L100.0100, L503.6005, L500.4050, L501.4020 #### [facility] [address] [place], [address] RBC (Bld) [#/Vol] 5.66 10*6/uL Normal 4.6-6.2 [facility] Comment on above: Performed By: #### L 503.6620, L100.0100, L503.6005, L500.4050, L501.4020 #### [facility] [address] [place], [address] RDW SD 42.4 fl Normal 35.1-43.9 [facility] Comment on above: Performed By: #### L 503.6620, L100.0100, L503.6005, L500.4050, L501.4020 #### [facility] [address] [place], [address] WBC (Bld) [#/Vol] 9.7 10*3/uL Normal 4.4-11.0 [facility] Comment on above: Performed By: #### L 503.6620, L100.0100, L503.6005, L500.4050, L501.4020 #### [facility] [address] [place], [address] Carbon dioxide measurementOr dered By: Terry Gould on 08-31-2024 CO2 [Moles/Vol] 27.0 mmol/L 21.0-32.0 [facility] Chest PA and Lateralon 08-31 Chest PA and Lateral [facility] Imaging Services [address] [place] [address] Chest PA and Lateral MR#: [id number] Acct: [id number] Name: VENKAT MARSH Rep #: [id number] : 1965 M 59 From: Maria C keller MD PCP: Care Physician,No Primary Status: REG ER Study: Chest PA and Lateral Date of Exam: 08/31/24 Exam# [id number] Ordering Dr: Terry Gould MD [id number] HISTORY: Shortness of breath, nonproductive cough, wheezing. [...] Terry Gould MD; No Primary Care Physician Outbound Sales Professional: Signed Normal [facility] Chloride measurementOrdered By: Terry Gould on 08-31-2024 Chloride [Moles/Vol] 105 mmol/L 98-107 [facility] Comprehensive Metabolic Prof ilon 08-31-2024 Albumin [Mass/Vol] 3.4 g/dL Normal 3.2-5.0 [facility] Comment on above: Order Comment: 'TROP ' Serial specimen #1, #2 or #3: 1 Performed By: #### L 503.6620, L100.0100, L503.6005, L500.4050, L501.4020 #### [facility] [address] [place], [address] Albumin/Globulin [Mass ratio] 0.9 {ratio} Normal 0.9-2.4 [facility] Comment on above: Order Comment: 'TROP ' Serial specimen #1, #2 or #3: 1 Performed By: #### L 503.6620, L100.0100, L503.6005, L500.4050, L501.4020 #### [facility] [address] [place], [address] ALK P 63 U/L Normal 45-117 [facility] Comment on above: Order Comment: 'TROP ' Serial specimen #1, #2 or #3: 1 Performed By: #### L 503.6620, L100.0100, L503.6005, L500.4050, L501.4020 #### [facility] [address] [place], [address] ALT [Catalytic activity/Vol] 25 U/L Normal 16-61 [facility] Comment on above: Order Comment: 'TROP ' Serial specimen #1, #2 or #3: 1 Performed By: #### L 503.6620, L100.0100, L503.6005, L500.4050, L501.4020 #### [facility] [address] [place], [address] AST [Catalytic activity/Vol] 14 U/L Low 15-37 [facility] Comment on above: Order Comment: 'TROP ' Serial specimen #1, #2 or #3: 1 Performed By: #### L 503.6620, L100.0100, L503.6005, L500.4050, L501.4020 #### [facility] [address] [place], [address] Bilirubin [Mass/Vol] 0.30 mg/dL Normal 0.20-1.00 [facility] Comment on above: Order Comment: 'TROP ' Serial specimen #1, #2 or #3: 1 Result Comment: For patients on eltrombopag therapy, use of Dimension [place] TBIL is not recommended. Performed By: #### L 503.6620, L100.0100, L503.6005, L500.4050, L501.4020 #### [facility] [address] [place], [address] BUN/CRE 11.1 RATIO Normal 10-20 [facility] Comment on above: Order Comment: 'TROP ' Serial specimen #1, #2 or #3: 1 Performed By: #### L 503.6620, L100.0100, L503.6005, L500.4050, L501.4020 #### [facility] [address] [place], [address] CA,Total 9.0 mg/dL Normal 8.5-10.1 [facility] Comment on above: Order Comment: 'TROP ' Serial specimen #1, #2 or #3: 1 Performed By: #### L 503.6620, L100.0100, L503.6005, L500.4050, L501.4020 #### [facility] [address] [place], [address] Chloride [Moles/Vol] 105 mmol/L Normal 98-107 [facility] Comment on above: Order Comment: 'TROP ' Serial specimen #1, #2 or #3: 1 Performed By: #### L 503.6620, L100.0100, L503.6005, L500.4050, L501.4020 #### [facility] [address] [place], [address] CO2 [Moles/Vol] 27.0 mmol/L Normal 21.0-32.0 [facility] Comment on above: Order Comment: 'TROP ' Serial specimen #1, #2 or #3: 1 Performed By: #### L 503.6620, L100.0100, L503.6005, L500.4050, L501.4020 #### [facility] [address] [place], [address] Creatinine [Mass/Vol] 1.35 mg/dL High 0.70-1.30 [facility] Comment on above: Order Comment: 'TROP ' Serial specimen #1, #2 or #3: 1 Result Comment: The validity of the calculated GFR GFRAA in patients over 70 years has not been determined. Clinical correlation is essential. Performed By: #### L 503.6620, L100.0100, L503.6005, L500.4050, L501.4020 #### [facility] [address] [place], [address] ECRCL 75.83 ml/min Normal [facility] Comment on above: Order Comment: 'TROP ' Serial specimen #1, #2 or #3: 1 Performed By: #### L 503.6620, L100.0100, L503.6005, L500.4050, L501.4020 #### [facility] [address] [place], [address] EST GFR - AA 69 mL/min Normal >60 [facility] Comment on above: Order Comment: 'TROP ' Serial specimen #1, #2 or #3: 1 Result Comment: Afri can Icelandic GFR Calc Performed By: #### L 503.6620, L100.0100, L503.6005, L500.4050, L501.4020 #### [facility] [address] [place], [address] GAP 6 Normal 5-15 [facility] Comment on above: Order Comment: 'TROP ' Serial specimen #1, #2 or #3: 1 Performed By: #### L 503.6620, L100.0100, L503.6005, L500.4050, L501.4020 #### [facility] [address] [place], [address] GFR/1.73 sq M.predicted among non-blacks MDRD (S/P/Bld) [Vol rate/Area] 57 mL/min/{1.73_m2} Low >60 [facility] Comment on above: Order Comment: 'TROP ' Serial specimen #1, #2 or #3: 1 Result Comment: Non- GFR Calc Performed By: #### L 503.6620, L100.0100, L503.6005, L500.4050, L501.4020 #### [facility] [address] [place], [address] Globulin (S) [Mass/Vol] 3.9 g/dL Normal 2.2-4.2 [facility] Comment on above: Order Comment: 'TROP ' Serial specimen #1, #2 or #3: 1 Performed By: #### L 503.6620, L100.0100, L503.6005, L500.4050, L501.4020 #### [facility] [address] [place], [address] Glucose [Mass/Vol] 182 mg/dL High 74-106 [facility] Comment on above: Order Comment: 'TROP ' Serial specimen #1, #2 or #3: 1 Result Comment: Fast ing Glucose result greater than or equal to 126 mg/dL suggests DIABETES MELLITUS per A.D.A. criteria. Performed By: #### L 503.6620, L100.0100, L503.6005, L500.4050, L501.4020 #### [facility] [address] [place], [address] Potassium [Moles/Vol] 4.3 mmol/L Normal 3.5-5.1 [facility] Comment on above: Order Comment: 'TROP ' Serial specimen #1, #2 or #3: 1 Performed By: #### L 503.6620, L100.0100, L503.6005, L500.4050, L501.4020 #### [facility] [address] [place], [address] Sodium [Moles/Vol] 138 mmol/L Normal 136-145 [facility] Comment on above: Order Comment: 'TROP ' Serial specimen #1, #2 or #3: 1 Performed By: #### L 503.6620, L100.0100, L503.6005, L500.4050, L501.4020 #### [facility] [address] [place], [address] T PROT 7.3 g/dL Normal 6.4-8.2 [facility] Comment on above: Order Comment: 'TROP ' Serial specimen #1, #2 or #3: 1 Performed By: #### L 503.6620, L100.0100, L503.6005, L500.4050, L501.4020 #### [facility] [address] [place], [address] Urea nitrogen [Mass/Vol] 15 mg/dL Normal 7-18 [facility] Comment on above: Order Comment: 'TROP ' Serial specimen #1, #2 or #3: 1 Performed By: #### L 503.6620, L100.0100, L503.6005, L500.4050, L501.4020 #### [facility] [address] [place], [address] Emergency Department Summary on 08-31-2024 Emergency Department Summary [facility] Medical Records Department [address] [place] [address] Emergency Department Summary 08/31/24 MR#: [id number] Acct: [id number] Name: VENKAT MARSH Rep #: [id number] : 1965 59 From: Terry Gould MD PCP: Care Physician,No Primary Status:REG ER Location: ED ADDENDUM by Dr. Terry Gould MD on 08/31/24 at 1241 EKG reveals a sinus rhythm first-degree AV block and left bundle branch block. This is unchanged from prior dated September 04, 2023. Rate of 79. PA interval is 206 ms. QRS duration is [...] he was recently admitted to [facility] for congestive heart failure. He had a 4-day stay. He apparently has obstructive sleep apnea but has not gotten the machine yet. He states he is able to lie flat in bed. He sleeps with 1 pillow. He denies swelling of his feet or ankles. He denies fever, chills night sweats. He was treated at urgent care in [place]. They diagnosed him with bronchitis. His cough is nonproductive.He denies nasal congestion, postnasal drainage sore throat. He denies history of VTE. Denies leg pain, swelling discoloration. He denies pleuritic chest pain. He denies pain with breathing. He denies abdominal distention, nausea, vomiting or diarrhea. He denies dysuria, frequency, urgency or hematuria. Prior similar symptoms: Yes Recent Illness/Hospitalizati on: [facility] Medical History (Updated 08/31/24 @ 12:39 by [...] addt'l complain (more content not included)... Normal [facility] Eosinophil percentageOrdered By: Terry Gould on 08-31-2024 Eosinophils/100 WBC (Bld) 9.7 % High 0-5 [facility] Erythrocyte distribution wid th (RBC) [Ratio]Ordered By: Terry Gould on 08-31-2024 Erythrocyte distribution width (RBC) [Entitic vol] 42.4 fL 35.1-43.9 [facility] Erythrocyte distribution wid th ratioOrdered By: Terryfrench Gould on 08-31-2024 Erythrocyte distribution width (RBC) [Ratio] 12.3 % 11.6-14.6 [facility] Estimated glomerular filtrat ion rate (GFR) AmericanOrdered By: Terry Luis Fernando on 08-31-2024 Estimated GFR (MDRD) Amer 69 mL/min >60 [facility] Comment on above: GFR Calc Estimation of creatinine ailin aranceOrdered By: Terry Gould on 08-31-2024 Estimated Creatinine Clearance Calc 75.83 ml/min [facility] Glomerular filtration rate ( GFR) estimationOrdered By: Terry Gould on 08-31-2024 Estimated GFR (MDRD) Non-Af Amer 57 mL/min Low >60 [facility] Comment on above: Non- GFR Calc Glucose measurementOrdered B y: Terry Gould on 08-31-2024 Glucose [Mass/Vol] 182 mg/dL High 74-106 [facility] Comment on above: Fasting Glucose resu lt greater than or equal to 126 mg/dL suggests DIABETES MELLITUS per A.D.A. criteria. [facility] By: Terry Gould on 08-31-2024 Bedside Glucose (Misc Panel) 191 mg/dL High 74-106 [facility] Comment on above: MANAGEMENT OF PATIEN T CARE PER NURSING PROTOCOL Hematocrit Auto (Bld) [Volum e fraction]Ordered By: Terryfrench Gould on 08-31-2024 Hematocrit (Bld) [Volume fraction] 52.9 % 40-54 [facility] Hemoglobin measurementOrdere d By: Terry Gould on 08-31-2024 Hemoglobin (Bld) [Mass/Vol] 17.8 g/dL High 13.0-16.5 [facility] Immature granulocytes/100 WB C Auto (Bld)Ordered By: Terryfrench Gould on 08-31-2024 Immature granulocytes/100 WBC (Bld) 0.400 % 0.0-0.9 [facility] Comment on above: IG% - Immature Granu locytes (promyelocytes, myelocytes and metamyelocytes) > 1% indicates that a LEFT SHIFT is Present. Influenza virus A and B and SARS-CoV-2 (COVID-19) and Respiratory syncytial virus RNAOrdered By: Terryfrench Gould on 08-31-2024 SARS-CoV-2 (COVID-19) RNA SUSANNAH+probe Ql (Unsp spec) [facility] L501.4020on 08-31-2024 TROPONIN-I HS 24 pg/mL Normal 3.0-78.0 [facility] Comment on above: Order Comment: 'TROP ' Serial specimen #1, #2 or #3: 1 Result Comment: Plea se Note: New Test Units and Gender Specific Reference Ranges. For more information see Policy Stat Procedure [place] High Sensitivity Troponin (TNIH) and attachments. Performed By: #### L 503.6620, L100.0100, L503.6005, L500.4050, L501.4020 #### [facility] [address] [place], [place], [id number] Laboratory - Chemistry and C hemistry - challengeOrdered By: Terry Marroquino on 08-31-2024 AST [Catalytic activity/Vol] 14 U/L Low 15-37 [facility] Lactic Acidon 08-31-2024 Lactate [Moles/Vol] 1.6 mmol/L Normal 0.4-1.9 [facility] Comment on above: Order Comment: Y Performed By: #### L 503.6620, L100.0100, L503.6005, L500.4050, L501.4020 #### [facility] [address] [place], [address] Lactic acid measurementOrder ed By: Terry Marroquino on 08-31-2024 Lactate [Moles/Vol] 1.6 mmol/L 0.4-2.0 [facility] Lymphocytes Auto (Unsp spec) [#/Vol]Ordered By: Terry Marroquino on 08-31-2024 Lymphocytes (Bld) [#/Vol] 4.29 10*3/uL 0.83-4.51 [facility] Lymphocytes/100 WBC Auto (Un sp spec)Ordered By: Terry Marroquino on 08-31-2024 Lymphocytes/100 WBC (Bld) 44.4 % High 19-41 [facility] M100.678on 08-31-2024 M100.678 Pending SARS-CoV-2 (COVID 19) Negative INFLUENZA A Negative INFLUENZA B Negative RSV PCR Negative Normal [facility] Comment on above: Performed By: #### M 100.678 #### [facility] [address] [place], [place], [id number] MCV (mean corpuscular volume ) determinationOrdered By: Terry Gould on 08-31-2024 MCV (RBC) [Entitic vol] 93.5 fL 80-94 [facility] Mean corpuscular hemoglobin (MCH) determinationOrdered By: Terry Gould on 08-31-2024 MCH (RBC) [Entitic mass] 31.4 pg 27.0-32.0 [facility] Mean corpuscular hemoglobin concentration (MCHC) determinationOrdered By: Terry Gould on 08-31-2024 MCHC (RBC) [Mass/Vol] 33.6 g/dL 32-36 [facility] Mean platelet volume determi nationOrdered By: Terry Gould on 08-31-2024 Platelet mean volume (Bld) [Entitic vol] 9.9 fL 6.2-12.0 [facility] Monocyte percentageOrdered B y: Terry Gould on 08-31-2024 Monocytes/100 WBC (Bld) 7.8 % 0-10 [facility] Neutrophil percentageOrdered By: Terry Gould on 08-31-2024 Neutrophils/100 WBC (Bld) 37.3 % Low 47-70 [facility] Nucleated red blood cell per centageOrdered By: Terry Gould on 08-31-2024 Nucleated RBC/100 WBC (Bld) [Ratio] 0 % 0-5 [facility] Platelet countOrdered By: Ug o Gould on 08-31-2024 Platelets (Bld) [#/Vol] 255 10*3/uL 150-450 [facility] Potassium measurementOrdered By: Terry Gould on 08-31-2024 Potassium [Moles/Vol] 4.3 mmol/L 3.5-5.1 [facility] RBC Auto (Bld) [#/Vol]Ordere d By: Terry Gould on 08-31-2024 RBC (Bld) [#/Vol] 5.66 10*6/uL 4.6-6.2 [facility] Serum anion gap measurementO rdered By: Terry Gould on 08-31-2024 Anion gap [Moles/Vol] 6 mmol/L 5-15 [facility] Serum globulin measurementOr dered By: Terry Gould on 08-31-2024 Globulin (S) [Mass/Vol] 3.9 g/dL 2.2-4.2 [facility] Serum or plasma alanine umana otransferase (ALT) measurementOrdered By: Terry Gould on 08-31-2024 ALT [Catalytic activity/Vol] 25 U/L 16-61 [facility] Serum or plasma albumin greer urement (mass/volume)Ordered By: Terry Gould on 08-31-2024 Albumin [Mass/Vol] 3.4 g/dL 3.2-5.0 [facility] Serum or plasma alkaline hernan sphatase measurementOrdered By: Terry Gould on 08-31-2024 ALP [Catalytic activity/Vol] 63 U/L 45-117 [facility] Serum or plasma calcium greer urement (mass/volume)Ordered By: Terry Gould on 08-31-2024 Calcium [Mass/Vol] 9.0 mg/dL 8.5-10.1 [facility] Serum or plasma creatinine m easurement (mass/volume)Ordered By: Terry Gould on 08-31-2024 Creatinine [Mass/Vol] 1.35 mg/dL High 0.70-1.30 [facility] Comment on above: The validity of the calculated GFR & GFRAA in patients over 70 years has not been determined. Clinical correlation is essential. Serum or plasma urea nitroge n measurement (mass/volume)Ordered By: Terry Gould on 08-31-2024 Urea nitrogen [Mass/Vol] 15 mg/dL 7-18 [facility] Sodium levelOrdered By: Terry Gould on 08-31-2024 Sodium [Moles/Vol] 138 mmol/L 136-145 [facility] Total proteinOrdered By: Terry Gould on 08-31-2024 Protein [Mass/Vol] 7.3 g/dL 6.4-8.2 [facility] Troponin IOrdered By: Terry lovell on 08-31-2024 Troponin I High Sensitivity 24 pg/mL 3.0-78.0 [facility] Comment on above: Please Note: New Michele t Units and Gender Specific Reference Ranges. For more information see Policy Stat Procedure [place] High Sensitivity Troponin (TNIH) and attachments. White blood cell (WBC) count Ordered By: Teryr Gould on 08-31-2024 WBC (Bld) [#/Vol] 9.7 10*3/uL 4.4-11.0 [facility] CNPDeena 07-25-2024 CNPN Telephone (AGRallyhood) VENKAT MARSH ([id number]) 1965 M Date Time Provider Department 07/25/[facility] During your visit today, we recorded the [...] call back with an update. Bakari Dumont Assistant Hall Director I July 25, 2024 4:09 PM Gavin [...] D to answer his questions. Bakari Dumont Assistant Hall Director I August 01, 2024 11:48 AM Sharon [...] (HCC) [E11.65] Order(s):CONSULT TO DIABETES EDUCATION DSME [1787873] Order #: [id number]: 2 FUTURE insulin glargine 100 unit/mL (3 [...] tablet by mouth once daily. - Insulin [place], Disposable, (PEN NEEDLE) 32 gauge x 5/32 [...] OPHELIA Latif Problem List As Of Date 07/25/2024 Noted Resolved CAD (coronary artery disease) [I25.10] 09/04/2014 S/P coronary artery stent placement [Z95.5] 09/04/2014 Left bundle branch block (LBBB) on electrocardi*09/04/20 14 H/O myocardial infarction, gr (more content not included)... Normal [facility] 07-21-2024 [facility] Telephone (Field Agent) VENKAT MARSH ([id number]) 1965 M Date Time Provider Department 07/21/24 GAVIN BETANCUR [facility] [place] During your visit today, we recorded the following information about you: Bakari Dumont 07/21/2024 10:28 AM Signed LVM for patient to give us a call back regarding the message he left for us to give him a call. Bakari Dumont Assistant Hall Director I July 21, 2024 10:27 AM Allergies [...] needed for wheezing/shortness of breath. - Insulin [place], Disposable, (PEN NEEDLE) 32 gauge x 5/32 [...] Bhavya OA Problem List As Of Date 07/21/2024 Noted [...] HTN (hypertension) [I10] Schizoaffective disorder, bipolar type ([facility]) [F*09/10/2023 11/02/2023 Cocaine dependence in remission ([facility]) [F14.21] 09/10/2023 Hypothyroidism [E03.9] Diabetes mellitus ([facility]) [E11.9] Cataract, nuclear sclerotic, both eyes [H25.13] 10/23/2023 Hyperopia of both eyes [H52.03] 10/23/2023 Regular astigmatism of both eyes [H52.223] 10/23/2023 Presbyopia of both eyes [H52.4] 10/23/2023 Mood disorder ([facility]) [F39] 11/02/2023 Acute systolic HF (heart failure) ([facility]) [I50.21]04/13/2024 Acute on chronic systolic (congestive) heart fa*04/13/2024 04/15/2024 Atrial fib/flutter, transient (HCC) [I48.91, I4*04/14/2024 Mixed hyperlipidemia [E78.2] 04/14/2024 Morbid obesity (HCC) [E66.01] 04/14/2024 Essential hypertension [I10] 04/14/2024 Chronic HFrEF (heart failure with reduced eject*04/14/2024 Typical atrial flutter (HCC) [I48.3] 04/15/2024 Encounter Status:Closed by BAKARI DUMONT on 07/25/24 [facility] CNPNon 06-06-2024 CNPN Telephone (AGCARDPOB ) VENKAT MARSH ([id number]) 1965 M Date Time Provider Department 06/06/24 BHANU EDMONDSON AGCARDPOReina During your visit today, we recorded the [...] SUZAN - Fully Assessed Prescriptions as of 06/06/2024 [...] needed for wheezing/shortness of breath. - Insulin [place], Disposable, (PEN NEEDLE) 32 gauge x 5/32 [...] by JESSICA FITZGERALD on 06/06/24 [facility] CNPN Telephone (AGCARDPOB ) VENKAT MARSH ([id number]) 1965 M Date Time Provider Department 06/06/24 [...] needed for wheezing/shortness of breath. - Insulin [place], Disposable, (PEN NEEDLE) 32 gauge x 5/32 [...] by SANDRA ABBASI on 06/06/24 [facility] [place] 06-03-2024 CNPN Telephone ([facility]) VENKAT MARSH ([id number]) 1965 M Date Time Provider Department 06/03/24 [...] [I50.20] Order(s):BASIC METABOLIC PANEL [SQBMP] Order #: [id number] FUTURE Prescriptions as of 06/03/2024 - ASA/acetaminophen/caf [...] needed for wheezing/shortness of breath. - Insulin [place], Disposable, (PEN NEEDLE) 32 gauge x 5/32 [...] (more content not included)... Normal [facility] ALBUMIN/CREATININE RATIO, UR INEon 06-02-2024 Albumin DL <= 20 mg/L (U) [Mass/Vol] 129.9 mg/L Normal [facility] Comment on above: Order Comment: Speci men Type: BLOOD SPECIMEN Ordering Facility: [facility] Address: [address] [place] [address] Performed By: #### 5 8410-2 #### [facility] CLIA [id number] [address] [place] [address] [place] [address] [place] Albumin/Creatinine (U) [Mass ratio] 152 mg/g High <30 [facility] [facility] Comment on above: Order Comment: Speci men Type: BLOOD SPECIMEN Ordering Facility: [facility] Address: [address] [place] [address] Result Comment: Adul t Male and Female Nephrotic Criteria: <30 mg/g is considered normal to mildly increased 30-300 mg/g is considered moderately increased >300 mg/g is considered severely increased KDIGO. (2013). KDIGO 2012 Clinical Practice Guideline for the Evaluation and Management of Chronic Kidney Disease. Official Journal of the International Society of Nephrology, 3(1), 1-150. Performed By: #### 5 8410-2 #### [facility] CLIA [id number] [address] [place] [address] [place] Creatinine (U) [Mass/Vol] 85.6 mg/dL Normal 20.0-300.0 [facility] Comment on above: Order Comment: Speci men Type: BLOOD SPECIMEN Ordering Facility: [facility] Address: [address] [place] [address] Performed By: #### 5 8410-2 #### [facility] CLIA [id number] [address] [place] [address] [place] Basic metabolic 2000 panelon 06-02-2024 Anion gap [Moles/Vol] 12 mmol/L Normal 8-15 [facility] Comment on above: Order Comment: Speci men Type: BLOOD SPECIMENOrdering Facility: [facility] Address: [address] [place] [address] Performed By: #### 2 4321-2, 2275-4 ####[facility]CLIA [id number] [place] [address] [place] Calcium [Mass/Vol] 9.7 mg/dL Normal 8.5-10.2 [facility] Comment on above: Order Comment: Speci men Type: BLOOD SPECIMENOrdering Facility: [facility] Address: [address] [place] [address] Performed By: #### 2 4321-2, 2275-4 ####[facility]CLIA [id number] [place] [address] [place] Chloride [Moles/Vol] 101 mmol/L Normal 98-107 [facility] Comment on above: Order Comment: Speci men Type: BLOOD SPECIMENOrdering Facility: [facility] Address: [address] [place] [address] Performed By: #### 2 4321-2, 2276-4 ####[facility]IA [id number] [place] [address] [place] CO2 [Moles/Vol] 25 mmol/L Normal 22-30 [facility] Comment on above: Order Comment: Speci men Type: BLOOD SPECIMENOrdering Facility: [facility] Address: [address] [place] [address] Performed By: #### 2 4321-2, 2276-4 ####[facility]CLIA [id number] [place] [address] [place] Creatinine [Mass/Vol] 1.20 mg/dL Normal 0.73-1.22 [facility] Comment on above: Order Comment: Speci men Type: BLOOD SPECIMENOrdering Facility: [facility] Address: [address] [place] [address] Performed By: #### 2 4321-2, 2276-4 ####[facility]IA [id number] [place] [address] [place] Creatinine and Glomerular filtration rate.predicted panel (S/P/Bld) 69 mL/min/1.73m??? Normal >=60 [facility] Comment on above: Order Comment: Speci men Type: BLOOD SPECIMENOrdering Facility: [facility] Address: [address] [place] [address] Result Comment: Eli mated Glomerular Filtration Rate [...] actual GFR. Performed By: #### 2 4321-2, 2275-12 ####[facility]CLIA [id number] [address] [address] [place] Glucose [Mass/Vol] 101 mg/dL High 74-99 [facility] Comment on above: Order Comment: Speci men Type: BLOOD SPECIMENOrdering Facility: [facility] Address: [address] [place] [address] Result Comment: The [place] Diabetes Association (ADA) provides guidance for cutoff [...] Standards of Medical Care in Diabetes 2016, [place] Diabetes Association. Diabetes Care. 2016.39(Suppl 1). Performed By: #### 2 432-, 2275-12 ####[facility] LABCLIA [id number] [address] [address] [place] Potassium [Moles/Vol] 5.1 mmol/L Normal 3.7-5.1 [facility] Comment on above: Order Comment: Speci men Type: BLOOD SPECIMENOrdering Facility: [facility] Address: [address] [place] [address] Performed By: #### 2 432-, 2275-12 ####[facility] LABCLIA [id number] [facility] [address] [address] [place] Sodium [Moles/Vol] 138 mmol/L Normal 136-144 [facility] Comment on above: Order Comment: Speci men Type: BLOOD SPECIMENOrdering Facility: [facility] Address: [address] [place] [address] Performed By: #### 2 4321-2, 2276-4 ####[facility] LABCLIA [id number] [place] [address] [place] Urea nitrogen [Mass/Vol] 15 mg/dL Normal 9-24 [facility] Comment on above: Order Comment: Speci men Type: BLOOD SPECIMENOrdering Facility: [facility] Address: [address] [place] [address] Performed By: #### 2 4321-2, 6-4 ####[facility]CLIA [id number] [place] [address] [place] CBC panel Auto (Bld)on 06-02 Erythrocyte distribution width (RBC) [Ratio] 13.7 % Normal 11.5-15.0 [facility] Comment on above: Order Comment: Speci men Type: BLOOD SPECIMEN Ordering Facility[facility] Address: [address] [place] [address] Performed By: #### 5 8410-2 #### [facility] CLIA [id number] [address] [place] [address] [place] Hematocrit (Bld) [Volume fraction] 57.3 % High 39.0-51.0 [facility] Comment on above: Order Comment: Speci men Type: BLOOD SPECIMEN Ordering Facility: [facility] Address: [address] [place] [address] Performed By: #### 5 8410-2 #### [facility] CLIA [id number] [address] [place] [address] [place] Hemoglobin (Bld) [Mass/Vol] 19.1 g/dL High 13.0-17.0 [facility] Comment on above: Order Comment: Speci men Type: BLOOD SPECIMEN Ordering Facility: [facility] Address: [address] [place] [address] Performed By: #### 5 8410-2 #### [facility] CLIA [id number] [address] [place] [address] [place] MCH (RBC) [Entitic mass] 31.4 pg Normal 26.0-34.0 [facility] Comment on above: Order Comment: Speci men Type: BLOOD SPECIMEN Ordering Facility[facility] Address: [address] [place] [address] Performed By: #### 5 8410-2 #### [facility] CLIA [id number] [address] [place] [address] [place] MCHC (RBC) [Mass/Vol] 33.3 g/dL Normal 30.5-36.0 [facility] Comment on above: Order Comment: Speci men Type: BLOOD SPECIMEN Ordering [facility] Address: [address] [place] [address] Performed By: #### 5 8410-2 #### [facility] CLIA [id number] [address] [place] [address] [place] MCV (RBC) [Entitic vol] 94.1 fL Normal 80.0-100.0 [facility] Comment on above: Order Comment: Speci men Type: BLOOD SPECIMEN Ordering Facility: [facility] Address: [address] [place] [address] Performed By: #### 5 8410-2 #### [facility] CLIA [id number] [address] [place] [address] [place] Nucleated RBC (Bld) [#/Vol] 10*3/uL Normal <0.01 [facility] Comment on above: Order Comment: Speci men Type: BLOOD SPECIMEN Ordering Facility: [facility] Address: [address] [place] [address] Performed By: #### 5 8410-2 #### [facility] CLIA [id number] [address] [place] [address] [place] Platelet mean volume (Bld) [Entitic vol] 10.8 fL Normal 9.0-12.7 [facility] Comment on above: Order Comment: Speci men Type: BLOOD SPECIMEN [facility] Address: [address] [place] [address] Performed By: #### 5 8410-2 #### [facility] CLIA [id number] [address] [place] [address] [place] Platelets (Bld) [#/Vol] 229 10*3/uL Normal 150-400 [facility] Comment on above: Order Comment: Speci men Type: BLOOD SPECIMEN Ordering Facility[facility] Address: [address] [place] [address] Performed By: #### 5 8410-2 #### [facility] CLIA [id number] [address] [place] [address] [place] RBC (Bld) [#/Vol] 6.09 10*6/uL High 4.20-6.00 [facility] Comment on above: Order Comment: Speci men Type: BLOOD SPECIMEN [facility] Address: [address] [place] [address] Performed By: #### 5 8410-2 #### [facility] CLIA [id number] [address] [place] [address] [place] WBC (Bld) [#/Vol] 13.00 10*3/uL High 3.70-11.00 [facility] Comment on above: Order Comment: Speci men Type: BLOOD SPECIMEN Order[facility] Address: [address] [place] [address] Performed By: #### 5 8410-2 #### [facility] CLIA [id number] [address] [place] [address] [place] Ferritin SerPl-mCncon 2023 Ferritin [Mass/Vol] 89.6 ng/mL Normal 30.3-565.7 [facility] Comment on above: Order Comment: Jazmin jolley Type: BLOOD SPECIMENOrdering Facility: [facility] Address: [address] [place] [address] Performed By: #### 2 4321-2, 2276-4 ####[facility]IA [id number] [address] OF [facility] HbA1c (Bld)on 06-02-2024 Average glucose Estimated from glycated hemoglobin (Bld) [Mass/Vol] 171 mg/dL Normal [facility] Comment on above: Order Comment: Jazmin jolley Type: BLOOD SPECIMENOrdering Facility: [facility] Address: [address] [place] [address] Result Comment: eAG: (Estimated average glucose) is a calculated value from HgbA1c and is bank representative of the average blood glucose level in the last 2-3 month period. Performed By: #### 5 5454-3 ####[facility] [id number] [address] HbA1c (Bld) [Mass fraction] 7.6 % High 4.3-5.6 [facility] Comment on above: Order Comment: Jazmin jolley Type: BLOOD SPECIMENOrdering Facility: [facility] Address: [address] [place] [address] Result Comment: Amer [place] Diabetes Association guidelines indicate that patients with HgbA1c in the range 5.7-6.4% are at increased risk for development of diabetes, and intervention by lifestyle modification may be beneficial. HgbA1c greater or equal to 6.5% is considered diagnostic of diabetes. Performed By: #### 5 5454-3 ####[facility] [id number] [address] OF [facility] Linda 05-16-2024 JOHNN Telephone ([facility]) VENKAT MARSH ([id number]) 1965 M Date Time Provider Department 05/16/24 JOSETTE MCGEEFC During your visit today, we recorded the [...] obtained in 2 weeks at laboratory in [place] STOP Losartan. Explanation that Entresto and Losartan [...] needed for wheezing/shortness of breath. - Insulin [place], Disposable, (PEN NEEDLE) 32 gauge x 5/32 [...] Latif OA Problem List As Of Date 05/16/2024 Noted [...] HF (hear (more content not included)... Normal [facility] 05-13-2024 [facility] Telephone ([facility]) VENKAT MARSH ([id number]) 1965 M Date Time Provider Department 05/13/24 JOSETTE MCGEE [facility] During your visit today, we recorded [...] more information. Since he is active with [employer], a message will be sent on the [...] needed for wheezing/shortness of breath. - Insulin [place], Disposable, (PEN NEEDLE) 32 gauge x 5/32 [...] Encounter Status:Closed by JOSETTE MCGEE on 05/13/24 Normal [facility] ECHOon 04-12-2024 CONCLUSIONS: - Technically difficult [...] INSTITUTE Echocardiography Report: Transthoracic Echo [facility] Date of service: 04/12/2024 7:23:04 [facility] Ordering physician: YOUSUF PONCE Indication: Initial evaluation of Heart Failure Symptom(s): Shortness of breath Technologist: Alice Mcfadden RUST Interpreting physician: Natali Alberts MD PATIENT: Name: [...] no pericardial effusion. [facility] Basic metabolic 2000 panelon 04-11-2024 Anion gap [Moles/Vol] 11 mmol/L 8 - 15 mmol/L [facility] Calcium [Mass/Vol] 9.7 mg/dL 8.5 - 10. 2 mg/dL [facility] Chloride [Moles/Vol] 100 mmol/L 98 - 10 7 mmol/L [facility] CO2 [Moles/Vol] 30 mmol/L 22 - 30 mmol/L [facility] Creatinine [Mass/Vol] 1.40 mg/dL High 0.73 - 1.22 mg/dL [facility] GFR/1.73 sq M.predicted among non-blacks MDRD (S/P/Bld) [Vol rate/Area] 58 mL/min/{1.73_m2} Low - PINF [facility] Comment on above: Estimated Glomerular Filtration [...] 148 mg/dL High 74 - 99 mg/dL [facility] Comment on above: The [place] Diabete s Association (ADA) provides guidance for [...] Standards of Medical Care in Diabetes 2016, [place] Diabetes Association. Diabetes Care. 2016.39(Suppl 1). Potassium [Moles/Vol] 3.6 mmol/L Low 3.7 - 5.1 mmol/L [facility] Sodium [Moles/Vol] 141 mmol/L 136 - 144 mmol/L [facility] Urea nitrogen [Mass/Vol] 22 mg/dL 9 - 24 mg/dL [facility] FOLATE, SERUMon 04-11-2024 Folate [Mass/Vol] 8.5 ng/mL 4.7 - PINF ng/mL [facility] Iron and Iron binding capaci ty panelon 04-11-2024 Iron [Mass/Vol] 52 ug/dL 41 - 186 ug/dL [facility] Iron binding capacity [Mass/Vol] 385 ug/dL 232 - 386 ug/dL [facility] Iron saturation [Mass fraction] 13.5 % Low 15.0 - 57.0 % [facility] NT PRO BNPon 04-11-2024 Natriuretic peptide.B prohormone N-Terminal [Mass/Vol] 4030 pg/mL High NINF - 125 pg/mL [facility] No Panel Informationon 04-11 Interpretation and review of laboratory results Normal [facility] Interpretation and review of laboratory results Abnormal [facility] VITAMIN B12on 04-11-2024 Cobalamin (Vitamin B12) [Mass/Vol] 852 pg/mL 232 - 1245 pg/mL [facility] .Auto Diffon 03-29-2024 Basophil, Absolute 0.1 10 3/mcL Normal 0.0-0.2 [facility] ([place]) Comment on above: Performed By: #### C BC, GFR, MDW, BMP, ANEU, PBNP, TROPHS, ADIFF ####[address] [place], [place] [address] Basophils/100 WBC (Bld) 0.6 % Normal 0.0-2.5 A [facility] ([place]) Comment on above: Performed By: #### C BC, GFR, MDW, BMP, ANEU, PBNP, TROPHS, ADIFF ####[address] [place], [place] [address] Eosinophil, Absolute 0.3 10 3/mcL Normal 0.0-0.4 [facility] ([place]) Comment on above: Performed By: #### C BC, GFR, MDW, BMP, ANEU, PBNP, TROPHS, ADIFF ####[address] [place], [place] [address] Eosinophils/100 WBC (Bld) 3.2 % Normal 0.0-7.0 [facility] ([place]) Comment on above: Performed By: #### C BC, GFR, MDW, BMP, ANEU, PBNP, TROPHS, ADIFF ####[address] [place], [place] [address] Lymphocyte, Absolute 2.1 10 3/mcL Normal 0.8-3.9 [facility] ([place]) Comment on above: Performed By: #### C BC, GFR, MDW, BMP, ANEU, PBNP, TROPHS, ADIFF ####[address] [place], [place] [address] Lymphocytes/100 WBC (Bld) 23.8 % Normal 10.0-50.0 [facility] ([place]) Comment on above: Performed By: #### C BC, GFR, MDW, BMP, ANEU, PBNP, TROPHS, ADIFF ####[address] [place], [place] [address] Monocyte, Absolute 0.8 10 3/mcL Normal 0.2-1.0 [facility] ([place]) Comment on above: Performed By: #### C BC, GFR, MDW, BMP, ANEU, PBNP, TROPHS, ADIFF ####[address] [place], [place] [address] Monocytes/100 WBC (Bld) 8.7 % Normal 1.7-13.0 [facility] ([place]) Comment on above: Performed By: #### C BC, GFR, MDW, BMP, ANEU, PBNP, TROPHS, ADIFF ####[address] [place], [place] [address] Neutrophils/100 WBC (Bld) 63.7 % Normal 37.0-80.0 [facility] ([place]) Comment on above: Performed By: #### C BC, GFR, MDW, BMP, ANEU, PBNP, TROPHS, ADIFF ####[address] [place], [place] [address] .GFRon 03-29-2024 GFR 58 ml/min/1.73sqm Normal [facility] ([place]) Comment on above: Result Comment: GFR Population [...] MDW, BMP, ANEU, PBNP, TROPHS, ADIFF ####[address] [place], [place] [address] GFR Non- 48 ml/min/1.73sqm Normal [facility] ([place]) Comment on above: Result Comment: GFR Population [...] MDW, BMP, ANEU, PBNP, TROPHS, ADIFF ####[address] [place], [place] [address] .MDWon 03-29-2024 Monocyte Distribution Width 16.87 Normal 0.00-20.00 [facility] ([place]) Comment on above: Result Comment: For ED adult patients suspected of sepsis, MDW<=20.0 does not rule out sepsis or risk of sepsis Performed By: #### C BC, GFR, MDW, BMP, ANEU, PBNP, TROPHS, ADIFF ####[address] [place], [place] [address] .NEUABSon 03-29-2024 Neutrophil, Absolute 5.6 10 3/mcL Normal 2.9-6.2 [facility] ([place]) Comment on above: Performed By: #### C BC, GFR, MDW, BMP, ANEU, PBNP, TROPHS, ADIFF ####[address] [place], [place] [address] BMPon 03-29-2024 BUN/Creatinine Ratio 8 ratio Normal 7-27 [facility] ([place]) Comment on above: Performed By: #### C BC, GFR, MDW, BMP, ANEU, PBNP, TROPHS, ADIFF ####[address] [place], [place] [address] Calcium [Mass/Vol] 8.8 mg/dL Normal 8.4-10.2 [facility] ([place]) Comment on above: Performed By: #### C BC, GFR, MDW, BMP, ANEU, PBNP, TROPHS, ADIFF ####[address] [place], [place] [address] Chloride [Moles/Vol] 100 mmol/L Normal 98-107 [facility] ([place]) Comment on above: Performed By: #### C BC, GFR, MDW, BMP, ANEU, PBNP, TROPHS, ADIFF ####[address] [place], [place] [address] CO2 [Moles/Vol] 31 mmol/L Normal 23-31 [facility] ([place]) Comment on above: Performed By: #### C BC, GFR, MDW, BMP, ANEU, PBNP, TROPHS, ADIFF ####[address] [place], [place] [address] Creatinine [Mass/Vol] 1.49 mg/dL High 0.70-1.30 [facility] ([place]) Comment on above: Performed By: #### C BC, GFR, MDW, BMP, ANEU, PBNP, TROPHS, ADIFF ####[address] [place], [place] [address] Electrolyte Balance 7.0 mEq/L Normal 4.0-15.0 [facility] ([place]) Comment on above: Performed By: #### C BC, GFR, MDW, BMP, ANEU, PBNP, TROPHS, ADIFF ####[address] [place], [place] [address] Glucose [Mass/Vol] 143 mg/dL High 80-115 [facility] ([place]) Comment on above: Performed By: #### C BC, GFR, MDW, BMP, ANEU, PBNP, TROPHS, ADIFF ####[address] [place], [place] [address] Potassium [Moles/Vol] 3.7 mmol/L Normal 3.5-5.1 [facility] ([place]) Comment on above: Performed By: #### C BC, GFR, MDW, BMP, ANEU, PBNP, TROPHS, ADIFF ####[address] [place], [place] [address] Sodium [Moles/Vol] 138 mmol/L Normal 136-145 [facility] ([place]) Comment on above: Performed By: #### C BC, GFR, MDW, BMP, ANEU, PBNP, TROPHS, ADIFF ####[address] [place], [place] [address] Urea nitrogen [Mass/Vol] 12 mg/dL Normal 7-18 [facility] ([place]) Comment on above: Performed By: #### C BC, GFR, MDW, BMP, ANEU, PBNP, TROPHS, ADIFF ####[address] [place], [place] [address] CBCon 03-29-2024 Erythrocyte distribution width (RBC) [Ratio] 13.3 % Normal 11.5-14.5 [facility] ([place]) Comment on above: Performed By: #### C BC, GFR, MDW, BMP, ANEU, PBNP, TROPHS, ADIFF ####[address] [place], [place] [address] Hematocrit (Bld) [Volume fraction] 47.2 % Normal 42.0-52.0 [facility] ([place]) Comment on above: Performed By: #### C BC, GFR, MDW, BMP, ANEU, PBNP, TROPHS, ADIFF ####[address] [place], [place] [address] Hgb 16.2 G/dL Normal 14.0-18.0 [facility] ([place]) Comment on above: Performed By: #### C BC, GFR, MDW, BMP, ANEU, PBNP, TROPHS, ADIFF ####[address] [place], [place] [address] MCH (RBC) [Entitic mass] 31.7 pg High 27.0-31.2 [facility] ([place]) Comment on above: Performed By: #### C BC, GFR, MDW, BMP, ANEU, PBNP, TROPHS, ADIFF ####[address] [place], [place] [address] MCHC 34.4 G/dL Normal 31.8-35.4 [facility] ([place]) Comment on above: Performed By: #### C BC, GFR, MDW, BMP, ANEU, PBNP, TROPHS, ADIFF ####[address] [place], [place] [address] MCV (RBC) [Entitic vol] 92.2 fL Normal 80.0-94.0 A [facility] ([place]) Comment on above: Performed By: #### C BC, GFR, MDW, BMP, ANEU, PBNP, TROPHS, ADIFF ####[address] [place], [place] [address] Platelet 240 10 3/mcL Normal 130-400 [facility] ([place]) Comment on above: Performed By: #### C BC, GFR, MDW, BMP, ANEU, PBNP, TROPHS, ADIFF ####[address] [place], [place] [address] Platelet mean volume (Bld) [Entitic vol] 8.2 fL Normal 7.4-10.4 [facility] ([place]) Comment on above: Performed By: #### C BC, GFR, MDW, BMP, ANEU, PBNP, TROPHS, ADIFF ####[address] [place], [place] [address] RBC 5.12 10 6/mcL Normal 4.04-6.13 [facility] ([place]) Comment on above: Performed By: #### C BC, GFR, MDW, BMP, ANEU, PBNP, TROPHS, ADIFF ####[address] [place], [place] [address] WBC 8.8 10 3/mcL Normal 4.6-10.8 [facility] ([place]) Comment on above: Performed By: #### C BC, GFR, MDW, BMP, ANEU, PBNP, TROPHS, ADIFF ####[address] [place], [place] [address] LABORATORYOrdered By: SYSTEM SYSTEM on 03-29-2024 Basophil, [...] ng/L Male: 0-76 ng/L Testing performed on [employer] using a homogeneous sandwich chemiluminescent immunoassay based on [employer] technology. Urea nitrogen [Mass/Vol] 12 mg/dL Normal 7 - 18 mg/dL AO ADM SS Urea nitrogen/Creatinine [Mass ratio] 8 ratio Normal 7 - 27 ratio AO ADM SS WBC (Bld) [#/Vol] 8.8 103/mcL Normal 4.6 - 10.8 10^3/mcL AO Workflow SS PBNPon 03-29-2024 Natriuretic peptide B (Bld) [Mass/Vol] 3632 pg/mL High 0-125 [facility] ([place]) Comment on above: Result Comment: NT-p roBNP results of less than 300 pg/mL effectively rules out acute congestive heart failure with 99% negative predictive value. Performed By: #### C ELY, GFR, W, BMP, ANEU, PBNP, TROPHS, ADIFF ####[address] [place], [place] [address] TROPHSon 03-29-2024 High Sensitivity Troponin I 37 ng/L Normal 0-76 [facility] ([place]) Comment on above: Result Comment: High Sensitive Troponin I Reference Ranges: Female: 0-51 ng/L Male: 0-76 ng/L Testing performed on [employer] using a homogeneous sandwich chemiluminescent immunoassay based on [employer] technology. Performed By: #### C BC, GFR, MDW, BMP, ANEU, PBNP, TROPHS, ADIFF ####[address] [place], [place] [address] XR CHEST 1 VIEWon 03-29-2024 XR CHEST [...] 03/29/2024 10:39:18 AM Ordering Provider: KYLIE Peters [facility] ([place]) XR Elbow - left AP and Later al and obliqueon 03-28-2024 3 views of left elbo w were obtained. No fracture/dislocation/ tumors noted. Joint spaces well maintained. Assessment: Normal left elbow. [facility] RADIOLOGY [facility] Radiology Study observation (narrative) [facility] HEMOGLOBIN A1C (POC)on 02-02 HbA1c (Bld) [Mass fraction] 6.7 % Abnormal 4.3 - 5.6 % [facility] Comment on above: Location:[facility], [address] [place] [address], [facility] Point of care (POC) Hemoglobin A1c [...] specific diabetes management situations: The POC device boat repairer provides a normal range of 4.2% to 6.5% for the HGBA1C POC test. However, the [place] [employer] guidelines indicate that patients with [...] Interpretation and review of laboratory results Abnormal [facility] .Auto Diffon 11-28-2023 Basophil, Absolute 0.0 10 3/mcL Normal 0.0-0.2 [facility] ([place]) Comment on above: Performed By: #### M DW, GFR, PBNP, ANEU, ADIFF, TROPHS, BMP, CBC #### [address] [address] Basophils/100 WBC (Bld) 0.5 % Normal 0.0-2.5 A [facility] ([place]) Comment on above: Performed By: #### M DW, GFR, PBNP, ANEU, ADIFF, TROPHS, BMP, CBC #### [address] [address] Eosinophil, Absolute 0.8 10 3/mcL High 0.0-0.4 [facility] ([place]) Comment on above: Performed By: #### M DW, GFR, PBNP, ANEU, ADIFF, TROPHS, BMP, CBC #### [address] [address] Eosinophils/100 WBC (Bld) 9.4 % High 0.0-7.0 [facility] ([place]) Comment on above: Performed By: #### M DW, GFR, PBNP, ANEU, ADIFF, TROPHS, BMP, CBC #### [address] [address] Lymphocyte, Absolute 2.9 10 3/mcL Normal 0.8-3.9 [facility] ([place]) Comment on above: Performed By: #### M DW, GFR, PBNP, ANEU, ADIFF, TROPHS, BMP, CBC #### [address] [address] Lymphocytes/100 WBC (Bld) 33.6 % Normal 10.0-50.0 [facility] ([place]) Comment on above: Performed By: #### M DW, GFR, PBNP, ANEU, ADIFF, TROPHS, BMP, CBC #### [address] [address] Monocyte, Absolute 0.7 10 3/mcL Normal 0.2-1.0 [facility] ([place]) Comment on above: Performed By: #### M DW, GFR, PBNP, ANEU, ADIFF, TROPHS, BMP, CBC #### [address] [address] Monocytes/100 WBC (Bld) 8.6 % Normal 1.7-13.0 A [facility] ([place]) Comment on above: Performed By: #### M DW, GFR, PBNP, ANEU, ADIFF, TROPHS, BMP, CBC #### [address] [address] Neutrophils/100 WBC (Bld) 47.9 % Normal 37.0-80.0 [facility] ([place] Comment on above: Performed By: #### M DW, GFR, PBNP, ANEU, ADIFF, TROPHS, BMP, CBC #### [address] [address] .GFRon 11-28-2023 GFR Non- 59 ml/min/1.73sqm Normal [facility] ([place]) Comment on above: Result Comment: GFR Population [...] PBNP, ANEU, ADIFF, TROPHS, BMP, CBC #### [address] [address] GFR 72 ml/min/1.73sqm Normal [facility] ([place]) Comment on above: Result Comment: GFR Population [...] PBNP, ANEU, ADIFF, TROPHS, BMP, CBC #### [address] [address] .MDWon 11-28-2023 Monocyte Distribution Width 17.21 Normal 0.00-20.00 [facility] ([place]) Comment on above: Result Comment: For ED adult patients suspected of sepsis, MDW<=20.0 does not rule out sepsis or risk of sepsis Performed By: #### M DW, GFR, PBNP, ANEU, ADIFF, TROPHS, BMP, CBC #### [address] [address] .NEUABSon 11-28-2023 Neutrophil, Absolute 4.1 10 3/mcL Normal 2.9-6.2 [facility] ([place]) Comment on above: Performed By: #### M DW, GFR, PBNP, ANEU, ADIFF, TROPHS, BMP, CBC #### [address] [address] BMPon 11-28-2023 BUN/Creatinine Ratio 8 ratio Normal 7-27 [facility] ([place]) Comment on above: Performed By: #### M DW, GFR, PBNP, ANEU, ADIFF, TROPHS, BMP, CBC #### [address] [address] Calcium [Mass/Vol] 9.4 mg/dL Normal 8.4-10.2 [facility] ([place]) Comment on above: Performed By: #### M DW, GFR, PBNP, ANEU, ADIFF, TROPHS, BMP, CBC #### [address] [address] Chloride [Moles/Vol] 102 mmol/L Normal 98-107 [facility] ([place]) Comment on above: Performed By: #### M DW, GFR, PBNP, ANEU, ADIFF, TROPHS, BMP, CBC #### [address] [address] CO2 [Moles/Vol] 32 mmol/L High 23-31 [facility] ([place]) Comment on above: Performed By: #### M DW, GFR, PBNP, ANEU, ADIFF, TROPHS, BMP, CBC #### [address] [address] Creatinine [Mass/Vol] 1.24 mg/dL Normal 0.70-1.30 [facility] ([place]) Comment on above: Performed By: #### M DW, GFR, PBNP, ANEU, ADIFF, TROPHS, BMP, CBC #### [address] [address] Electrolyte Balance 5.0 mEq/L Normal 4.0-15.0 [facility] ([place]) Comment on above: Performed By: #### M DW, GFR, PBNP, ANEU, ADIFF, TROPHS, BMP, CBC #### [address] [address] Glucose [Mass/Vol] 185 mg/dL High 80-115 [facility] ([place]) Comment on above: Performed By: #### M DW, GFR, PBNP, ANEU, ADIFF, TROPHS, BMP, CBC #### [address] [address] Potassium [Moles/Vol] 4.7 mmol/L Normal 3.5-5.1 [facility] ([place]) Comment on above: Performed By: #### M DW, GFR, PBNP, ANEU, ADIFF, TROPHS, BMP, CBC #### [address] [address] Sodium [Moles/Vol] 139 mmol/L Normal 136-145 [facility] ([place]) Comment on above: Performed By: #### M DW, GFR, PBNP, ANEU, ADIFF, TROPHS, BMP, CBC #### [address] [address] Urea nitrogen [Mass/Vol] 10 mg/dL Normal 7-18 [facility] ([place]) Comment on above: Performed By: #### M DW, GFR, PBNP, ANEU, ADIFF, TROPHS, BMP, CBC #### [address] [address] CBCon 11-28-2023 Erythrocyte distribution width (RBC) [Ratio] 12.8 % Normal 11.5-14.5 [facility] ([place] Comment on above: Performed By: #### M DW, GFR, PBNP, ANEU, ADIFF, TROPHS, BMP, CBC #### [place] [address] Hematocrit (Bld) [Volume fraction] 48.0 % Normal 42.0-52.0 [facility] ([place] Comment on above: Performed By: #### M DW, GFR, PBNP, ANEU, ADIFF, TROPHS, BMP, CBC #### [place] [address] Hgb 16.6 G/dL Normal 14.0-18.0 [facility] ([place] Comment on above: Performed By: #### M DW, GFR, PBNP, ANEU, ADIFF, TROPHS, BMP, CBC #### [place] [address] MCH (RBC) [Entitic mass] 31.9 pg High 27.0-31.2 [facility] ([place] Comment on above: Performed By: #### M DW, GFR, PBNP, ANEU, ADIFF, TROPHS, BMP, CBC #### [place] [address] MCHC 34.6 G/dL Normal 31.8-35.4 [facility] ([place] Comment on above: Performed By: #### M DW, GFR, PBNP, ANEU, ADIFF, TROPHS, BMP, CBC #### [place] [address] MCV (RBC) [Entitic vol] 92.2 fL Normal 80.0-94.0 A [facility] ([place]) Comment on above: Performed By: #### M DW, GFR, PBNP, ANEU, ADIFF, TROPHS, BMP, CBC #### [address] [address] Platelet 252 10 3/mcL Normal 130-400 [facility] ([place]) Comment on above: Performed By: #### M DW, GFR, PBNP, ANEU, ADIFF, TROPHS, BMP, CBC #### [address] [address] Platelet mean volume (Bld) [Entitic vol] 7.9 fL Normal 7.4-10.4 [facility] ([place]) Comment on above: Performed By: #### M DW, GFR, PBNP, ANEU, ADIFF, TROPHS, BMP, CBC #### [place] [address] RBC 5.20 10 6/mcL Normal 4.04-6.13 [facility] ([place] Comment on above: Performed By: #### M DW, GFR, PBNP, ANEU, ADIFF, TROPHS, BMP, CBC #### [place] [address] WBC 8.5 10 3/mcL Normal 4.6-10.8 [facility] ([place] Comment on above: Performed By: #### M DW, GFR, PBNP, ANEU, ADIFF, TROPHS, BMP, CBC #### [place] [address] CVFLURVon 11-28-2023 FLU A PCR Negative Normal Negative [facility] ([place]) Comment on above: Performed By: #### C VFLURV ####[place] [address] FLU B PCR Negative Normal Negative [facility] ([place]) Comment on above: Performed By: #### C VFLURV ####[place] [address] RSV PCR Negative Normal Negative [facility] ([place] Comment on above: Performed By: #### C VFLURV ####[place] [address] SARS-CoV-2 (COVID-19) RNA SUSANNAH+probe Ql (Unsp spec) Negative Normal Negative [facility] ([place]) Comment on above: Result Comment: Resu lts [...] inaccurate positive results. Performed By: #### C [facility] ####[id number] [place] [address] LABORATORYOrdered By: SYSTEM SYSTEM on 11-28-2023 Basophil, [...] B (Bld) [Mass/Vol] 778 pg/mL High 0-125 [facility] ([place]) Comment on above: Result Comment: NT-p roBNP results of less than 300 pg/mL effectively rules out acute congestive heart failure with 99% negative predictive value. Performed By: #### M DW, GFR, PBNP, ANEU, ADIFF, TROPHS, BMP, CBC #### [id number] [place] [address] 11-28-2023 Troponin I High Sensitivity 18.0 ng/L Normal 0.0-76.2 [facility] ([place]) Comment on above: Performed By: #### M DW, GFR, PBNP, ANEU, ADIFF, TROPHS, BMP, CBC #### [address] [place] [id number] [place], [place] [address] XR CHEST 2 VIEWSon 4 XR CHEST [...] Date: 11/28/2023 9:17:32 AM Ordering Provider: INDER Peters [facility] ([place]) HEMOGLOBIN A1C (POC)on 09-10 HbA1c (Bld) [Mass fraction] 14.4 % Abnormal 4.2 - 5.6 % [facility] Absolute lymphocyte countOrd ered By: Bean Kwon on 09-04-2023 Lymphocytes Auto (Unsp spec) [#/Vol] 2.66 10*3/uL 0.83-4.51 [facility] Basophil percentageOrdered B y: Bean Kwon on 09-04-2023 Basophils/100 WBC (Bld) 0.4 % 0-1 [facility] Bilirubin [Mass/Vol] 0.20 mg/dL 0.20-1.00 [facility] Comment on above: For patients on eltr ombopag therapy, use of Dimension [place] TBIL is not recommended. Chloride [Moles/Vol] 95 mmol/L 98-107 [facility] Eosinophils/100 WBC (Bld) 7.2 % 0-5 [facility] Glucose [Mass/Vol] 503 mg/dL 74-106 [facility] Comment on above: Critical Result(s) C alled at: 08:15:45 09/04/2023 by: Diamond Bennett. Results read back by same.Glucose result greater than or equal to 200 mg/dLsuggests DIABETES MELLITUS per A.D.A. criteria. Neutrophils (Bld) [#/Vol] 3.9 10*3/uL 2.0-7.7 [facility] Neutrophils/100 WBC (Bld) 49.9 % 47-70 [facility] Potassium [Moles/Vol] 4.1 mmol/L 3.5-5.1 [facility] Protein [Mass/Vol] 7.0 g/dL 6.4-8.2 [facility] Sodium [Moles/Vol] 131 mmol/L 136-145 [facility] WBC (Bld) [#/Vol] 7.8 10*3/uL 4.4-11.0 [facility] Basophil percentage 0 SEEN /hpf 0-5 [facility] Bilirubin Test strip Ql (U)O rdered By: eBan Kwon on 09-04-2023 Bilirubin Ql (U) Negative Negative [facility] Blood erythrocytes count (nu mber/volume)Ordered By: Bean Kwon on 09-04-2023 RBC (Bld) [#/Vol] 5.10 10*6/uL 4.6-6.2 [facility] Blood hemoglobin measurement (mass/volume)Ordered By: Bean Kwon on 09-04-2023 Hemoglobin (Bld) [Mass/Vol] 16.2 g/dL 13.0-16.5 [facility] Blood lymphocytes/100 leukoc ytesOrdered By: Bean Kwon on 09-04-2023 Lymphocytes/100 WBC (Bld) 34.0 % 19-41 [facility] Blood monocytes/100 leukocyt esOrdered By: Bean Kwon on 09-04-2023 Monocytes/100 WBC (Bld) 8.1 % 0-10 [facility] Blood platelet mean volumeOr dered By: Bean Kwon on 09-04-2023 Platelet mean volume (Bld) [Entitic vol] 10.7 fL 6.2-12.0 [facility] Determination of erythrocyte mean corpuscular volume (MCV)Ordered By: Bean Kwon on 09-04-2023 MCV (RBC) [Entitic vol] 90.4 fL 80-94 [facility] Hematocrit Auto (Bld) [Volum e fraction]Ordered By: Bean Kwon on 09-04-2023 Hematocrit (Bld) [Volume fraction] 46.1 % 40-54 [facility] Ketones Test strip Ql (U)Ord ered By: Bean Kwon on 09-04-2023 Ketones Ql (U) Negative Negative [facility] Laboratory - Chemistry and C hemistry - challengeOrdered By: Bean Kwon on 09-04-2023 ALP [Catalytic activity/Vol] 78 U/L 45-117 [facility] ALT [Catalytic activity/Vol] 38 U/L 16-61 [facility] CO2 [Moles/Vol] 27.0 mmol/L 21.0-32.0 [facility] Globulin (S) [Mass/Vol] 3.9 g/dL 2.2-4.2 [facility] Urea nitrogen/Creatinine [Mass ratio] 10.7 mg/mg 10-20 [facility] Laboratory - Hematology and Cell countsOrdered By: Bean Kwon on 09-04-2023 Erythrocyte distribution width (RBC) [Entitic vol] 37.6 fL 35.1-43.9 [facility] Erythrocyte distribution width (RBC) [Ratio] 11.4 % 11.6-14.6 [facility] Immature granulocytes/100 WBC (Bld) 0.400 % 0.0-0.9 [facility] Comment on above: IG% - Immature Granu locytes (promyelocytes, myelocytes and metamyelocytes) > 1% indicates that a LEFT SHIFT is Present. MCH (RBC) [Entitic mass] 31.8 pg 27.0-32.0 [facility] Nucleated RBC/100 WBC (Bld) [Ratio] 0 % 0-5 [facility] MCHC Auto (RBC) [Mass/Vol]Or dered By: Bean Kwon on 09-04-2023 MCHC (RBC) [Mass/Vol] 35.1 g/dL 32-36 [facility] Mucus LM Ql (Urine sed)Order ed By: Bean Kwon on 09-04-2023 Mucus Ql (Urine sed) 0 SEEN /hpf [facility] Nitrite Test strip Ql (U)Ord ered By: Bean Kwon on 09-04-2023 Nitrite Ql (U) Negative Negative [facility] No Panel InformationOrdered By: Bean Kwon on 09-04-2023 Estimated Creatinine Clearance Calc 67.86 ml/min [facility] Estimated GFR (MDRD) Amer 86 mL/min >60 [facility] Comment on above: GFR Calc Estimated GFR (MDRD) Non-Af Amer 71 mL/min >60 [facility] Comment on above: Non- GFR Calc Platelets bldOrdered By: Shena Kwon on 09-04-2023 Platelets (Bld) [#/Vol] 226 10*3/uL 150-450 [facility] Protein Test strip Ql (U)Ord ered By: Bean Kwon on 09-04-2023 Protein Ql (U) 30 mg/dl Negative [facility] Serum or plasma acetone greer urement (mass/volume)Ordered By: Bean Kwon on 09-04-2023 Acetone [Mass/Vol] Negative NEG [facility] Serum or plasma albumin greer urement (mass/volume)Ordered By: Bean Kwon on 09-04-2023 Albumin [Mass/Vol] 3.1 g/dL 3.2-5.0 [facility] Serum or plasma albumin/glob ulin mass ratioOrdered By: Bean Kwon on 09-04-2023 Albumin/Globulin [Mass ratio] 0.8 {ratio} 0.9-2.4 [facility] Serum or plasma calcium greer urement (mass/volume)Ordered By: Bean Kwon on 09-04-2023 Calcium [Mass/Vol] 8.9 mg/dL 8.5-10.1 [facility] Serum or plasma creatinine m easurement (mass/volume)Ordered By: Bean Kwon on 09-04-2023 Creatinine [Mass/Vol] 1.12 mg/dL 0.70-1.30 [facility] Comment on above: The validity of the calculated GFR & GFRAA in patients over 70 years has not been determined. Clinical correlation is essential. Serum or plasma urea nitroge n measurement (mass/volume)Ordered By: Bean Kwon on 09-04-2023 Urea nitrogen [Mass/Vol] 12 mg/dL 7-18 [facility] Squamous epithelial cells de tection in urine sediment by light microscopyOrdered By: Bean Kwon on 09-04-2023 Epithelial cells.squamous LM Ql (Urine sed) 0 SEEN /hpf 0-5 [facility] Thin prep Papanicolaou smear with manual screeningOrdered By: Bean Kwon on 09-04-2023 Thin prep Papanicolaou smear with manual screening 20 U/L 15-37 [facility] Thin prep Papanicolaou smear with manual screening 9 5-15 [facility] Urine blood detectionOrdered By: Bean Kwon on 09-04-2023 RBC Ql (U) 10 /ul Negative [facility] RBC Ql (U) 0 SEEN /hpf 0-5 [facility] Urine clarityOrdered By: Shena Kwon on 09-04-2023 Clarity (U) Clear Clear [facility] Urine color determinationOrd ered By: Bean Kwon on 09-04-2023 Color (U) Yellow Yellow [facility] Urine glucose detectionOrder ed By: Bean Kwon on 09-04-2023 Glucose Ql (U) 1000 mg/dl Normal [facility] Urine leukocyte esterase det ection by dipstickOrdered By: Bean Kwon on 09-04-2023 Leukocyte esterase Test strip Ql (U) Negative Negative [facility] Urine pHOrdered By: Bean carter on 09-04-2023 pH (U) 7.0 [pH] 5.0 - 8.0 [facility] Urine sediment bacteria coun t by microscopy (number/high power field)Ordered By: Bean Kwon on 09-04-2023 Bacteria LM.HPF (Urine sed) [#/Area] 0 /[HPF] None Seen [facility] Urine specific gravity measu rementOrdered By: Bean Kwon on 09-04-2023 Specific gravity (U) [Rel density] 1.010 1.002-1.030 [facility] Urobilinogen Auto test strip Ql (U)Ordered By: Bean Kwon on 09-04-2023 Urobilinogen Ql (U) Normal mg/dl Normal [facility] GLUCOSE, BLOOD (POC)on 08-31 Glucose [Mass/Vol] 526 mg/dL Abnormal 74 - 99 mg/dL [facility] UA DIP, URINE (POC)on 2022 BILIRUBIN UA (POCT) Negative Negative [facility] CLARITY UA (POCT) Clear [facility] COLOR UA (POCT) Yellow [facility] GLUCOSE UA (POCT) >=1000 Abnormal Negative mg/dL [facility] Hemoglobin Ql (U) Trace-intact Abnormal Negative [facility] KETONE UA (POCT) Negative Negative mg/dL [facility] LEUKOCYTES UA (POCT) Negative [facility] NITRITE UA (POCT) Negative Negative [facility] PH UA (POCT) 7.0 4.5 - 8.0 [facility] Protein Ql (U) Negative Negative mg/dL [facility] SPECIFIC GRAVITY UA (POCT) 1.010 1.005 - 1.030 [facility] UROBILINOGEN UA (POCT) 0.2 E.U./dL Antonette l E.U./dL [facility] NM CARDIAC PERF STRESS/PHARM on 07-29-2023 [facility] Comprehensive metabolic 2000 panelon 03-25-2023 Albumin [Mass/Vol] 4.1 g/dL 3.9 - 4.9 g/dL [facility] ALP [Catalytic activity/Vol] 55 U/L 38 - 113 U/L [facility] ALT With P-5'-P [Catalytic activity/Vol] 18 U/L 10 - 54 U/L [facility] Anion gap [Moles/Vol] 12 mmol/L 9 - 18 mmol/L [facility] AST With P-5'-P [Catalytic activity/Vol] 19 U/L 14 - 40 U/L [facility] Bilirubin [Mass/Vol] 0.3 mg/dL 0.2 - 1 .3 mg/dL [facility] Calcium [Mass/Vol] 8.9 mg/dL 8.5 - 10. 2 mg/dL [facility] Chloride [Moles/Vol] 102 mmol/L 97 - 10 5 mmol/L [facility] CO2 [Moles/Vol] 27 mmol/L 22 - 30 mmol/L [facility] Creatinine [Mass/Vol] 1.19 mg/dL 0.73 - 1.22 mg/dL [facility] Estimated Glomerular Filtration Rate 70 mL/min/1.73m >=60 mL/min/1.73m [facility] Glucose [Mass/Vol] 119 mg/dL High 74 - 99 mg/dL [facility] Potassium [Moles/Vol] 4.2 mmol/L 3.7 - 5.1 mmol/L [facility] Protein [Mass/Vol] 7.0 g/dL 6.3 - 8.0 g/dL [facility] Sodium [Moles/Vol] 141 mmol/L 136 - 144 mmol/L [facility] Urea nitrogen [Mass/Vol] 13 mg/dL 9 - 24 mg/dL [facility] HEPATITIS C ANTIBODY IA WITH CONFIRMATIONon 03-25-2023 HCV Ab Ql (S) Non-Reactive Nonreactive [facility] HIV 1+2 Ab IA Qlon HIV 1 and 2 Ab IA.rapid Nom [facility] HIV 1+2 Ab+HIV1 p24 Ag IA Ql Non-Reactive Nonreactive [facility] HIV Interpretation [facility] HbA1c (Bld)on 03-25-2023 Average glucose Estimated from glycated hemoglobin (Bld) [Mass/Vol] 189 mg/dL [facility] HbA1c (Bld) [Mass fraction] 8.2 % High 4.3 - 5.6 % [facility] PSA/PROSTSPECAG SCRNon 03-25 Prostate specific Ag [Mass/Vol] 1.55 ng/mL <2.60 ng/mL [facility] No Panel Information [facility] Vital Signs Date Time Vital Sign Value Performing Clinician Facility 04-11-2025 15:22-0400 Body mass index (BMI) [Ratio] 43.85 kg/m2 Natali Alberts MD Work Phone: [facility] 04-11-2025 15:22-0400 Body weight 127.01 kg Natali Alberts MD Work Phone: [facility] 04-11-2025 15:22-0400 Diastolic blood pressure 79 mm[Hg] Natali Alberts MD Work Phone: [facility] 04-11-2025 15:22-0400 Heart rate 90 /min Natali Alberts MD Work Phone: [facility] 04-11-2025 15:22-0400 SaO2% (BldA) [Mass fraction] 96 % Natali Alberts MD Work Phone: [facility] 04-11-2025 15:22-0400 Systolic blood pressure 105 mm[Hg] Natali Alberts MD Work Phone: [facility] 03-08-2025 04:30-0400 Body temperature 97.6 [degF] No Primary Care Physician [facility] 03-08-2025 04:30-0400 Diastolic blood pressure 78 mm[Hg] No Primary Care Physician [facility] 03-08-2025 04:30-0400 Heart rate 69 /min No Primary Care Physician [facility] 03-08-2025 04:30-0400 Respiratory rate 16 /min No Primary Care Physician [facility] 03-08-2025 04:30-0400 SaO2% (BldA) [Mass fraction] 99 % No Primary Care Physician [facility] 03-08-2025 04:30-0400 Systolic blood pressure 144 mm[Hg] No Primary Care Physician [facility] 03-08-2025 03:15-0400 Body height 170.18 cm No Primary Care Physician [facility] 03-08-2025 03:15-0400 Body mass index (BMI) [Ratio] 46 kg/m2 No Primary Care Physician [facility] 03-08-2025 03:15-0400 Body weight 133.5 kg No Primary Care Physician [facility] 02-22-2025 10:28-0400 Body height 170.2 cm Talita Ross MD Work Phone: [facility] 02-22-2025 10:28-0400 Body mass index (BMI) [Ratio] 45.11 kg/m2 Talita Ross MD Work Phone: [facility] 02-22-2025 10:28-0400 Body weight 130.64 kg Talita Ross MD Work Phone: [facility] 02-22-2025 10:28-0400 Heart rate 76 /min Talita Ross MD Work Phone: [facility] 02-22-2025 10:28-0400 SaO2% (BldA) [Mass fraction] 92 % Talita Ross MD Work Phone: [facility] 01-19-2025 10:38-0400 Body height 170.2 cm Nikolai Wiggers DO Work Phone: [facility] 01-19-2025 10:38-0400 Body mass index (BMI) [Ratio] 43.85 kg/m2 Nikolai Wiggers DO Work Phone: [facility] 01-19-2025 10:38-0400 Body temperature 97.59 [degF] Nikolai Wiggers DO Work Phone: [facility] 01-19-2025 10:38-0400 Body weight 127.01 kg Nikolai Wiggers DO Work Phone: [facility] 01-19-2025 10:38-0400 Diastolic blood pressure 87 mm[Hg] Nikolai Wiggers DO Work Phone: [facility] 01-19-2025 10:38-0400 Heart rate 99 /min Nikolai Wiggers DO Work Phone: [facility] 01-19-2025 10:38-0400 Respiratory rate 18 /min Nikolai Wiggers DO Work Phone: [facility] 01-19-2025 10:38-0400 SaO2% (BldA) [Mass fraction] 96 % Nikolai Wiggers DO Work Phone: [facility] 01-19-2025 10:38-0400 Systolic blood pressure 139 mm[Hg] Nikolai Wiggers DO Work Phone: [facility] 01-17-2025 02:52-0400 Body temperature 98.2 [degF] Harry Carey PA-C Work Phone: [facility] 01-17-2025 02:52-0400 Diastolic blood pressure 91 mm[Hg] Harry CAMP-Biju Work Phone: [facility] 01-17-2025 02:52-0400 Heart rate 89 /min Harry Carey PA-C Work Phone: [facility] 01-17-2025 02:52-0400 Respiratory rate 18 /min Harry Bridge [employer] PA-C Work Phone: [facility] 01-17-2025 02:52-0400 SaO2% (BldA) [Mass fraction] 93 % Harry Bridge [employer] PA-C Work Phone: [facility] 01-17-2025 02:52-0400 Systolic blood pressure 132 mm[Hg] Harry Bridge [employer] PA-C Work Phone: [facility] 01-17-2025 00:18-0400 Body mass index (BMI) [Ratio] 44.79 kg/m2 Harry Bridge [employer] PA-C Work Phone: [facility] 01-17-2025 00:18-0400 Body weight 129.73 kg Harry Bridge [employer] PA-C Work Phone: [facility] 01-14-2025 18:31-0400 Body height 170.2 cm Harry VolextiffanieOQO PA-C Work Phone: [facility] 01-06-2025 00:29-0400 Body temperature 98 [degF] No Primary Care Physician [facility] 01-06-2025 00:29-0400 Diastolic blood pressure 100 mm[Hg] No Primary Care Physician [facility] 01-06-2025 00:29-0400 Heart rate 78 /min No Primary Care Physician [facility] 01-06-2025 00:29-0400 Respiratory rate 22 /min No [facility] Care Physician [facility] [facility] 01-06-2025 00:29-0400 SaO2% (BldA) [Mass fraction] 95 % No Primary Care Physician [facility] 01-06-2025 00:29-0400 Systolic blood pressure 190 mm[Hg] No Primary Care Physician [facility] 01-05-2025 21:04-0400 Body height 172.72 cm No Primary Care Physician [facility] 01-05-2025 21:04-0400 Body mass index (BMI) [Ratio] 46.2 kg/m2 No Primary Care Physician [facility] 01-05-2025 21:04-0400 Body weight 137.9 kg No Primary Care Physician [facility] 12-23-2024 03:19-0400 Body temperature 98.5 [degF] Dr. Terry Gould MD Work Phone: [facility] 12-23-2024 03:19-0400 Diastolic blood pressure 86 mm[Hg] Dr. Terry Gould MD Work Phone: [facility] 12-23-2024 03:19-0400 Heart rate 78 /min Dr. Terry Gould MD Work Phone: [facility] 12-23-2024 03:19-0400 Respiratory rate 22 /min Dr. Terry Gould MD Work Phone: [facility] 12-23-2024 03:19-0400 SaO2% (BldA) [Mass fraction] 90 % Dr. Terry Gould MD Work Phone: [facility] 12-23-2024 03:19-0400 Systolic blood pressure 120 mm[Hg] Dr. Terry Gould MD Work Phone: [facility] 12-23-2024 00:40-0400 Body height 172.[address] Terry Gould MD Work Phone: [facility] 12-23-2024 00:40-0400 Body mass index (BMI) [Ratio] 47.9 kg/m2 Dr. Terry Gould MD Work Phone: [facility] 12-23-2024 00:40-0400 Body weight [address] Terry Gould MD Work Phone: [facility] 12-08-2024 13:10-0400 Body height 170.2 cm Issac Xiao MD Work Phone: [facility] 12-08-2024 13:10-0400 Body mass index (BMI) [Ratio] 47.61 kg/m2 Issac Xiao MD Work Phone: [facility] 12-08-2024 13:10-0400 Body weight 137.89 kg Issac Xiao MD Work Phone: [facility] 12-08-2024 13:10-0400 Diastolic blood pressure 70 mm[Hg] Issac Xiao MD Work Phone: [facility] 12-08-2024 13:10-0400 Heart rate 88 /min Issac Xiao MD Work Phone: [facility] 12-08-2024 13:10-0400 Respiratory rate 16 /min Issac Xiao MD Work Phone: [facility] 12-08-2024 13:10-0400 Systolic blood pressure 128 mm[Hg] Issac Xiao MD Work Phone: [facility] 11-09-2024 22:30-0500 Diastolic Blood Pressure Non-Invasive 100 mm[Hg] DR SERGEI DAWN DO [facility] 11-09-2024 22:30-0500 Heart rate 82 /min DR SERGEI DAWN DO [facility] 11-09-2024 22:30-0500 Respiratory rate 18 /min DR SERGEI DAWN DO [facility] 11-09-2024 22:30-0500 Systolic Blood Pressure Non-Invasive 136 mm[Hg] DR SERGEI DAWN DO [facility] 11-09-2024 21:49-0500 Heart rate 90 /min DR SERGEI DAWN DO [facility] 11-09-2024 21:49-0500 Respiratory rate 18 /min DR SERGEI DAWN DO [facility] 11-09-2024 19:49-0500 Body temperature 98.78 [degF] DR SERGEI DAWN DO [facility] 11-09-2024 19:49-0500 Diastolic Blood Pressure Non-Invasive 106 mm[Hg] DR SERGEI DAWN DO [facility] 11-09-2024 19:49-0500 Heart rate 85 /min DR SERGEI DAWN DO [facility] 11-09-2024 19:49-0500 Respiratory rate 22 /min DR SERGEI DAWN DO [facility] 11-09-2024 19:49-0500 Systolic Blood Pressure Non-Invasive 142 mm[Hg] DR SERGEI DAWN DO [facility] 11-09-2024 11:25-0500 Body height 170.2 cm Issac Xiao MD Work Phone: [facility] 11-09-2024 11:25-0500 Body mass index (BMI) [Ratio] 47.3 kg/m2 Issac Xiao MD Work Phone: [facility] 11-09-2024 11:25-0500 Body weight 136.99 kg Issac Xiao MD Work Phone: [facility] 11-09-2024 11:25-0500 Diastolic blood pressure 80 mm[Hg] Issac Xiao MD Work Phone: [facility] 11-09-2024 11:25-0500 Heart rate 84 /min Issac Xiao MD Work Phone: [facility] 11-09-2024 11:25-0500 Respiratory rate 16 /min Issac Xiao MD Work Phone: [facility] 11-09-2024 11:25-0500 SaO2% (BldA) [Mass fraction] 95 % Issac Xiao MD Work Phone: [facility] 11-09-2024 11:25-0500 Systolic blood pressure 126 mm[Hg] Issac Xiao MD Work Phone: [facility] 11-07-2024 14:36-0500 Body height 170.2 cm Inder Bruce MD Work Phone: [facility] 11-07-2024 14:36-0500 Body mass index (BMI) [Ratio] 46.2 kg/m2 Inder Bruce MD Work Phone: [facility] 11-07-2024 14:36-0500 Body weight 133.81 kg Inder Bruce MD Work Phone: [facility] 11-07-2024 14:36-0500 Diastolic blood pressure 84 mm[Hg] Inder Bruce MD Work Phone: [facility] 11-07-2024 14:36-0500 Heart rate 88 /min Inder Bruce MD Work Phone: [facility] 11-07-2024 14:36-0500 Respiratory rate 20 /min Inder Burce MD Work Phone: [facility] 11-07-2024 14:36-0500 Systolic blood pressure 141 mm[Hg] Inder Bruce MD Work Phone: [facility] 10-27-2024 13:41-0500 Body height 170.4 cm Oscar Brizuela MD Work Phone: [facility] Comment on above: refused to remove shoes 10-27-2024 13:41-0500 Body mass index (BMI) [Ratio] 45.31 kg/m2 Oscar Brizuela MD Work Phone: [facility] 10-27-2024 13:41-0500 Body weight 131.56 kg Oscar Brizuela MD Work Phone: [facility] 10-27-2024 13:41-0500 Diastolic blood pressure 108 mm[Hg] Oscar Brizuela MD Work Phone: [facility] 10-27-2024 13:41-0500 Heart rate 90 /min Oscar Brizuela MD Work Phone: [facility] 10-27-2024 13:41-0500 Respiratory rate 20 /min Oscar Brizuela MD Work Phone: [facility] 10-27-2024 13:41-0500 SaO2% (BldA) [Mass fraction] 99 % Oscar Brizuela MD Work Phone: [facility] 10-27-2024 13:41-0500 Systolic blood pressure 152 mm[Hg] Oscar Brizuela MD Work Phone: [facility] 10-18-2024 10:10-0500 Body height 170.2 cm Oral Abbasi DO Work Phone: [facility] 10-18-2024 10:10-0500 Body mass index (BMI) [Ratio] 44.95 kg/m2 Oral Abbasi DO Work Phone: [facility] 10-18-2024 10:10-0500 Body weight 130.18 kg Oral Abbasi DO Work Phone: [facility] 10-18-2024 10:10-0500 Diastolic blood pressure 93 mm[Hg] Oral Ayleen DO Work Phone: [facility] 10-18-2024 10:10-0500 Heart rate 81 /min Oral Ayleen DO Work Phone: [facility] 10-18-2024 10:10-0500 Systolic blood pressure 141 mm[Hg] Oral Ayleen DO Work Phone: [facility] 10-18-2024 09:07-0500 Body height 170.2 cm Inder Bruce MD Work Phone: [facility] 10-18-2024 09:07-0500 Body mass index (BMI) [Ratio] 45.73 kg/m2 Inder Bruce MD Work Phone: [facility] 10-18-2024 09:07-0500 Body weight 132.45 kg Inder Bruce MD Work Phone: [facility] 10-18-2024 09:07-0500 Diastolic blood pressure 124 mm[Hg] Inder Bruce MD Work Phone: [facility] Comment on above: Manual 155 110 10-18-2024 09:07-0500 Heart rate 83 /min Inder Bruce MD Work Phone: [facility] 10-18-2024 09:07-0500 Respiratory rate 24 /min Inder Bruce MD Work Phone: [facility] 10-18-2024 09:07-0500 SaO2% (BldA) [Mass fraction] 96 % Inder Bruce MD Work Phone: [facility] 10-18-2024 09:07-0500 Systolic blood pressure 164 mm[Hg] Inder Bruce MD Work Phone: [facility] Comment on above: Manual 155 110 08-31-2024 12:45-0500 Body temperature 98 [degF] Dr. Terry Gould MD Work Phone: 8(645)692-822400 [address] 08-31-2024 12:45-0500 Diastolic blood pressure 78 mm[Hg] Dr. Terry Gould MD Work Phone: 0(294)212-945600 [address] 08-31-2024 12:45-0500 Heart rate 78 /min Dr. Terry Gould MD Work Phone: 2(651)865-250100 [address] 08-31-2024 12:45-0500 Respiratory rate 16 /min Dr. Terry Gould MD Work Phone: 4(102)807-464100 [address] 08-31-2024 12:45-0500 SaO2% (BldA) [Mass fraction] 99 % Dr. Terry Gould MD Work Phone: 7(616)477-708800 [address] 08-31-2024 12:45-0500 Systolic blood pressure 148 mm[Hg] Dr. Terry Gould MD Work Phone: 9(020)[phone] [address] 08-31-2024 08:36-0500 Body mass index (BMI) [Ratio] 43.6 kg/m2 Dr. Terry Gould MD Work Phone: 4(759)256-176960 [place] [address] 08-31-2024 08:36-0500 Body weight 130.[address] Trery Gould MD Work Phone: 2(678)[phone] [place] [address] 05-11-2024 11:00-0400 Body height 170.2 cm Nurse 1 [facility] 05-11-2024 11:00-0400 Body mass index (BMI) [Ratio] 43.07 kg/m2 Nurse 1 [facility] 05-11-2024 11:00-0400 Body weight 124.74 kg Nurse 1 [facility] 05-11-2024 11:00-0400 Diastolic blood pressure 78 mm[Hg] Nurse 1 [facility] Comment on above: home wrist BP cuff today 115/80 05-11-2024 11:00-0400 Heart rate 87 /min Nurse 1 [facility] 05-11-2024 11:00-0400 Respiratory rate 16 /min Nurse 1 [facility] 05-11-2024 11:00-0400 SaO2% (BldA) [Mass fraction] 96 % Nurse 1 [facility] 05-11-2024 11:00-0400 Systolic blood pressure 115 mm[Hg] Nurse 1 [facility] Comment on above: home wrist BP cuff today 115/80 04-27-2024 15:55-0400 Body mass index (BMI) [Ratio] 44.32 kg/m2 Boo Humphrys DEVELOPMENTAL WRITING INSTRUCTOR.SENIOR JAVA J2EE DEVELOPER Work Phone: [facility] 04-27-2024 15:55-0400 Body weight 128.37 kg Boo Humphrys DEVELOPMENTAL WRITING INSTRUCTOR.SENIOR JAVA J2EE DEVELOPER Work Phone: [facility] 04-27-2024 15:55-0400 Diastolic blood pressure 93 mm[Hg] Boo Humphrys DEVELOPMENTAL WRITING INSTRUCTOR.SENIOR JAVA J2EE DEVELOPER Work Phone: [facility] 04-27-2024 15:55-0400 Heart rate 87 /min Boo Humphrys DEVELOPMENTAL WRITING INSTRUCTOR.SENIOR JAVA J2EE DEVELOPER Work Phone: [facility] 04-27-2024 15:55-0400 Respiratory rate 22 /min Boo Humphrys DEVELOPMENTAL WRITING INSTRUCTOR.SENIOR JAVA J2EE DEVELOPER Work Phone: [facility] 04-27-2024 15:55-0400 SaO2% (BldA) [Mass fraction] 94 % Boo Humphrys DEVELOPMENTAL WRITING INSTRUCTOR.SENIOR JAVA J2EE DEVELOPER Work Phone: [facility] Comment on above: RA 04-27-2024 15:55-0400 Systolic blood pressure 137 mm[Hg] Boo Humphrys DEVELOPMENTAL WRITING INSTRUCTOR.SENIOR JAVA J2EE DEVELOPER Work Phone: [facility] 04-11-2024 09:02-0400 Body mass index (BMI) [Ratio] 45.01 kg/m2 Maloy Sprandel DO Work Phone: [facility] 04-11-2024 09:02-0400 Body weight 134.26 kg Maloy Sprandel DO Work Phone: [facility] 04-11-2024 09:02-0400 Diastolic blood pressure 120 mm[Hg] Maloy Sprandel DO Work Phone: [facility] 04-11-2024 09:02-0400 Heart rate 94 /min Gavin Sprandel DO Work Phone: [facility] 04-11-2024 09:02-0400 SaO2% (BldA) [Mass fraction] 97 % Maloy Sprandel DO Work Phone: [facility] 04-11-2024 09:02-0400 Systolic blood pressure 156 mm[Hg] Gavin Sprandel DO Work Phone: [facility] 03-29-2024 10:28-0400 Heart rate 88 /min KYLIE FROMMELT DO [facility] 03-29-2024 10:28-0400 Respiratory rate 16 /min KYLIE FROMMELT DO [facility] 03-29-2024 10:15-0400 Heart rate 91 /min KYLIE FROMMELT DO [facility] 03-29-2024 10:15-0400 Respiratory rate 16 /min KYLIE FROMMELT DO [facility] 03-29-2024 10:02-0400 Respiratory rate 16 /min KYLIE FROMMELT DO [facility] 03-29-2024 09:43-0400 Blood Pressure Location KYLIE FROMMELT DO [facility] 03-29-2024 09:43-0400 Blood Pressure Method KYLIE DURANT DO [facility] 03-29-2024 09:43-0400 Body temperature 98.24 [degF] KYLIE HENRIQUEZT DO [facility] 03-29-2024 09:43-0400 Diastolic Blood Pressure Non-Invasive 92 mm[Hg] KYLIE DURANT DO [facility] 03-29-2024 09:43-0400 Heart rate 92 /min KYLIE DURANT DO [facility] 03-29-2024 09:43-0400 Systolic Blood Pressure Non-Invasive 146 mm[Hg] KYLIE DURANT DO [facility] 03-28-2024 10:38-0400 Body height 172.7 cm Zaid Szymanski DO Work Phone: [facility] 03-28-2024 10:38-0400 Body mass index (BMI) [Ratio] 44.7 kg/m2 Zaid Wyattffer DO Work Phone: [facility] 03-28-2024 10:38-0400 Body weight 133.36 kg Zaid Wyattffer DO Work Phone: [facility] 03-28-2024 10:38-0400 Respiratory rate 16 /min Zaid Wyattffer DO Work Phone: [facility] 02-03-2024 11:21-0400 Body height 172.7 cm Gavin Sprandel DO Work Phone: [facility] 02-03-2024 11:21-0400 Body mass index (BMI) [Ratio] 38.92 kg/m2 Maloy Sprandel DO Work Phone: [facility] 02-03-2024 11:21-0400 Body temperature 97.39 [degF] Gavin Sprandel DO Work Phone: [facility] 02-03-2024 11:21-0400 Body weight 116.12 kg Gavin Sprandel DO Work Phone: [facility] 02-03-2024 11:21-0400 Diastolic blood pressure 76 mm[Hg] Gavin Sprandel DO Work Phone: [facility] 02-03-2024 11:21-0400 Heart rate 79 /min Gavin Sprandel DO Work Phone: [facility] 02-03-2024 11:21-0400 Respiratory rate 18 /min Gavin Sprandel DO Work Phone: [facility] 02-03-2024 11:21-0400 SaO2% (BldA) [Mass fraction] 94 % Maloy Sprandel DO Work Phone: [facility] 02-03-2024 11:21-0400 Systolic blood pressure 114 mm[Hg] Gavin Sprandel DO Work Phone: [facility] 11-28-2023 09:11-0500 Heart rate 71 /min INDER PRAJAPATI MD [facility] 11-28-2023 09:11-0500 Respiratory rate 22 /min INDER PRAJAPATI MD [facility] 11-28-2023 08:19-0500 Blood Pressure Location INDER PRAJAPATI MD [facility] 11-28-2023 08:19-0500 Body temperature 98.96 [degF] INDER PRAJAPATI MD [facility] 11-28-2023 08:19-0500 Diastolic Blood Pressure Non-Invasive 87 mm[Hg] INDER PRAJAPATI MD [facility] 11-28-2023 08:19-0500 Heart rate 81 /min INDER PRAJAPATI MD [facility] 11-28-2023 08:19-0500 Respiratory rate 20 /min INDER PRAJAPATI MD [facility] 11-28-2023 08:19-0500 Systolic Blood Pressure Non-Invasive 122 mm[Hg] INDER PRAJAPATI MD [facility] 09-10-2023 10:35-0500 Body height 170.2 cm Duncan Craven MD Work Phone: [facility] 09-10-2023 10:35-0500 Body temperature 97.81 [degF] Duncan Craven MD Work Phone: [facility] 09-10-2023 10:35-0500 Body weight 122.92 kg Duncan Craven MD Work Phone: [facility] 09-10-2023 10:35-0500 Diastolic blood pressure 89 mm[Hg] Duncan Craven MD Work Phone: [facility] 09-10-2023 10:35-0500 Heart rate 88 /min Duncan Craven MD Work Phone: [facility] 09-10-2023 10:35-0500 Respiratory rate 20 /min Duncan Craven MD Work Phone: [facility] 09-10-2023 10:35-0500 SaO2% (BldA) [Mass fraction] 95 % Duncan Craven MD Work Phone: [facility] 09-10-2023 10:35-0500 Systolic blood pressure 129 mm[Hg] Duncan Craven MD Work Phone: [facility] 09-04-2023 07:14-0500 Body height 172.72 cm [facility] 09-04-2023 07:14-0500 Body mass index (BMI) [Ratio] 42.3 kg/m2 [facility] 09-04-2023 07:14-0500 Body temperature 96 [degF] [facility] 09-04-2023 07:14-0500 Body weight 126.46 kg [facility] 09-04-2023 07:14-0500 Diastolic blood pressure 119 mm[Hg] [facility] 09-04-2023 07:14-0500 Heart rate 88 /min [facility] 09-04-2023 07:14-0500 Respiratory rate 20 /min [facility] 09-04-2023 07:14-0500 SaO2% (BldA) [Mass fraction] 95 % [facility] 09-04-2023 07:14-0500 Systolic blood pressure 162 mm[Hg] [facility] 08-31-2023 17:25-0500 Body temperature 97.5 [degF] Arnulfo Athy PA-C Work Phone: [facility] 08-31-2023 17:25-0500 Body weight 127.82 kg Arnulfo Athy PA-C Work Phone: [facility] 08-31-2023 17:25-0500 Diastolic blood pressure 104 mm[Hg] Arnulfo Athy PA-C Work Phone: [facility] 08-31-2023 17:25-0500 Heart rate 99 /min Arnulfo Athy PA-C Work Phone: [facility] 08-31-2023 17:25-0500 Respiratory rate 20 /min Arnulfo Athy PA-C Work Phone: [facility] 08-31-2023 17:25-0500 SaO2% (BldA) [Mass fraction] 95 % Arnulfo Athy PA-C Work Phone: [facility] 08-31-2023 17:25-0500 Systolic blood pressure 151 mm[Hg] Arnulfo Athy PA-C Work Phone: [facility] 07-07-2023 10:24-0400 Body temperature 97.81 [degF] Maloy Sprandel DO Work Phone: [facility] 07-07-2023 10:24-0400 Body weight 132 kg Gavin Sprandel DO Work Phone: [facility] 07-07-2023 10:24-0400 Diastolic blood pressure 93 mm[Hg] Gavin Sprandel DO Work Phone: [facility] 07-07-2023 10:24-0400 Heart rate 87 /min Gavin Sprandel DO Work Phone: [facility] 07-07-2023 10:24-0400 SaO2% (BldA) [Mass fraction] 94 % Gavin Sprandel DO Work Phone: [facility] 07-07-2023 10:24-0400 Systolic blood pressure 146 mm[Hg] Gavin Sprandel DO Work Phone: [facility] 07-07-2023 09:23-0400 Body height 170.2 cm Denise Regan MD Work Phone: [facility] 07-07-2023 09:23-0400 Body temperature 96.01 [degF] Denise Regan MD Work Phone: [facility] 07-07-2023 09:23-0400 Body weight 133.16 kg Denise Regan MD Work Phone: [facility] 07-07-2023 09:23-0400 Diastolic blood pressure 97 mm[Hg] Denise Regan MD Work Phone: [facility] 07-07-2023 09:23-0400 Heart rate 95 /min Denise Regan MD Work Phone: [facility] 07-07-2023 09:23-0400 Respiratory rate 24 /min Denise Regan MD Work Phone: [facility] 07-07-2023 09:23-0400 SaO2% (BldA) [Mass fraction] 93 % Denise Regan MD Work Phone: [facility] 07-07-2023 09:23-0400 Systolic blood pressure 142 mm[Hg] Denise Regan MD Work Phone: [facility] 06-30-2023 12:51-0400 Body temperature 97.7 [degF] Rose Mary Stahl APRN.CNP Work Phone: [facility] 06-30-2023 12:51-0400 Body weight 131.09 kg Rose Mary Stahl DEVELOPMENTAL WRITING INSTRUCTOR.SENIOR JAVA J2EE DEVELOPER Work Phone: [facility] 06-30-2023 12:51-0400 Diastolic blood pressure 99 mm[Hg] Rose Mary Stahl DEVELOPMENTAL WRITING INSTRUCTOR.SENIOR JAVA J2EE DEVELOPER Work Phone: [facility] 06-30-2023 12:51-0400 Heart rate 87 /min Rose Mary Stahl DEVELOPMENTAL WRITING INSTRUCTOR.SENIOR JAVA J2EE DEVELOPER Work Phone: [facility] 06-30-2023 12:51-0400 SaO2% (BldA) [Mass fraction] 98 % Rose Mary Stahl DEVELOPMENTAL WRITING INSTRUCTOR.SENIOR JAVA J2EE DEVELOPER Work Phone: [facility] 06-30-2023 12:51-0400 Systolic blood pressure 144 mm[Hg] Rose Mary Stahl DEVELOPMENTAL WRITING INSTRUCTOR.SENIOR JAVA J2EE DEVELOPER Work Phone: [facility] 06-26-2023 13:23-0400 Body height 170.2 cm Yousuf Ponce MD Work Phone: [facility] 06-26-2023 13:23-0400 Body weight 130.18 kg Yousuf Ponce MD Work Phone: [facility] 06-26-2023 13:23-0400 Diastolic blood pressure 87 mm[Hg] Yousuf Ponce MD Work Phone: [facility] 06-26-2023 13:23-0400 Heart rate 73 /min Yousuf Ponce MD Work Phone: [facility] 06-26-2023 13:23-0400 Respiratory rate 18 /min Yousuf Ponce MD Work Phone: [facility] 06-26-2023 13:23-0400 SaO2% (BldA) [Mass fraction] 96 % Yousuf Ponce MD Work Phone: [facility] 06-26-2023 13:23-0400 Systolic blood pressure 137 mm[Hg] Yousuf Ponce MD Work Phone: [facility] 06-18-2023 13:07-0400 Body height 170.2 cm Alice Ralf DO Work Phone: [facility] 06-18-2023 13:07-0400 Body weight 130.18 kg Alice Ralf DO Work Phone: [facility] 06-18-2023 13:07-0400 Respiratory rate 18 /min Alice Ralf DO Work Phone: [facility] 06-12-2023 11:01-0400 Body height 170.2 cm Talita Ross MD Work Phone: [facility] 06-12-2023 11:01-0400 Body weight 130.18 kg Talita Ross MD Work Phone: [facility] 06-12-2023 11:01-0400 Respiratory rate 18 /min Talita Ross MD Work Phone: [facility] 05-08-2023 08:05-0400 Body height 172.7 cm Talita Ross MD Work Phone: [facility] 05-08-2023 08:05-0400 Body weight 130.18 kg Talita Ross MD Work Phone: [facility] 05-08-2023 08:05-0400 Respiratory rate 18 /min Talita Ross MD Work Phone: [facility] 04-27-2023 13:24-0400 Body height 172.7 cm Maloy Sprandel DO Work Phone: [facility] 04-27-2023 13:24-0400 Body temperature 98.1 [degF] Maloy Sprandel DO Work Phone: [facility] 04-27-2023 13:24-0400 Body weight 130.18 kg Maloy Sprandel DO Work Phone: [facility] 04-27-2023 13:24-0400 Diastolic blood pressure 95 mm[Hg] Gavin Sprandel DO Work Phone: [facility] 04-27-2023 13:24-0400 Heart rate 87 /min Maloy Sprandel DO Work Phone: [facility] 04-27-2023 13:24-0400 Respiratory rate 20 /min Maloy Sprandel DO Work Phone: [facility] 04-27-2023 13:24-0400 SaO2% (BldA) [Mass fraction] 96 % Gavin Sprandel DO Work Phone: [facility] 04-27-2023 13:24-0400 Systolic blood pressure 152 mm[Hg] Gavin Sprandel DO Work Phone: [facility] 03-25-2023 11:03-0400 Body height 172.7 cm Gavin Sprandel DO Work Phone: [facility] 03-25-2023 11:03-0400 Body weight 129.73 kg Gavin Sprandel DO Work Phone: [facility] 03-25-2023 11:03-0400 Diastolic blood pressure 85 mm[Hg] Gavin Sprandel DO Work Phone: [facility] 03-25-2023 11:03-0400 Heart rate 66 /min Gavin Sprandel DO Work Phone: [facility] 03-25-2023 11:03-0400 Respiratory rate 20 /min Gavin Sprandel DO Work Phone: [facility] 03-25-2023 11:03-0400 SaO2% (BldA) [Mass fraction] 97 % Gavin Sprandel DO Work Phone: [facility] 03-25-2023 11:03-0400 Systolic blood pressure 143 mm[Hg] Maloy Sprandel DO Work Phone: [facility] Encounters Encounter Date Encounter Type Care Provider Facility Start: 05-26-2025 End: 05-26-2025 Patient encounter procedure Oscar Nunez MD Work Phone: Urology Comment on above: Erectile dysfunction due to diseases classified elsewhere (Primary Dx); CKD stage G3a/A3, GFR 45-59 and albumin creatinine ratio >300 mg/g (HCC); Type 2 diabetes mellitus with hyperglycemia, with long-term current use of insulin ([facility]); Obesity, Class III, BMI >= 40; Primary hypertension; Coronary artery disease involving metlak[place]la coronary artery of [place] heart without angina pectoris; Drug-induced erectile dysfunction; Tobacco use; Hyperlipidemia, unspecified hyperlipidemia type; Personal history of AR (myocardial infarction) Start: 05-26-2025 End: 05-26-2025 ambulatory OSCAR NUNEZ Facility:[id number] Start: 05-10-2025 End: 05-10-2025 Telephone encounter Nikolai Nazario DO Work Phone: [facility] ([facility]) Comment on above: Medication Request ( Viagra ) Start: 2025 End: 2025 ambulatory Nikolai Nazario DO Work Phone: [facility] ([facility]) Start: 2025 End: 2025 Patient encounter procedure Nikolai Nazario DO Work Phone: [facility] ([facility]) Comment on above: Letter for community action. [facility] Start: 04-26-2025 ambulatory NIKOLAI NAZARIO Faci lity:[place] [facility] Start: 04-26-2025 End: 04-26-2025 ambulatory NIKOLAI NAZARIO Facility:[facility] Start: 04-18-2025 End: 04-18-2025 Refill Nikolai Nazario DO Work Phone: [facility] ([facility]) Comment on above: Refill Request Start: 04-13-2025 End: 04-13-2025 Telephone encounter Tiburcio Castro RN Work Phone: [facility] Home Delivery Comment on above: Insurance Authorizat ion 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 Start: 04-11-2025 End: 04-11-2025 Patient encounter procedure Natali Alberts MD Work Phone: [facility] Cardiology [place] Comment on above: Coronary artery dise ase involving metlak[place]la coronary artery of [place] heart without angina pectoris (Primary Dx); Status post insertion of drug-eluting stent into left anterior descending artery for coronary artery disease; Primary hypertension; Mixed hyperlipidemia; Diabetes mellitus, non-insulin dependent (NIDDM or type II) ([facility]); Bipolar 1 disorder ([facility]); Morbid obesity ([facility]); ELBERT (obstructive sleep apnea); Acute systolic congestive heart failure ([facility]); PAF (paroxysmal atrial fibrillation) ([facility]); Chronic HFrEF (heart failure with reduced ejection fraction) ([facility]); HFrEF (heart failure with reduced ejection fraction) ([facility]) Start: 04-11-2025 End: 04-11-2025 ambulatory NATALI ALBERTS Facility:[facility] Start: 04-07-2025 End: 04-07-2025 Telephone encounter Nikolai Nazario DO Work Phone: [facility] ([facility]) Comment on above: Results Start: 04-03-2025 End: 06-03-2025 Follow-up encounter Oscar Brizuela MD Work Phone: [facility] Start: 03-31-2025 End: 03-31-2025 ambulatory OSCAR BRIZUELA Facility:[facility] Start: 03-28-2025 End: 03-28-2025 Telephone encounter Nikolai Nazario DO Work Phone: [facility] ([facility]) Comment on above: Orders Start: 03-08-2025 End: 03-08-2025 Emergency department patient visit No Primary Care Physician -Emergency Department Work Phone: Start: 03-02-2025 End: 03-03-2025 Telephone encounter Nikolai Nazario DO Work Phone: [facility] ([facility]) Comment on above: Orders (Testosterone testing) Start: 03-01-2025 End: 03-02-2025 Refill Yuliet Fong DO Work Phone: [facility] Comment on above: Refill Request Start: 02-22-2025 End: 02-22-2025 Patient encounter procedure Talita Ross MD Work Phone: [facility] Comment on above: Pain of right hand ( Primary Dx); Osteoarthritis of right thumb Start: 02-22-2025 End: 02-22-2025 ambulatory TALITA ROSS Facility:[id number] Start: 02-22-2025 End: 02-22-2025 Subsequent hospital visit by physician Xr [facility] Comment on above: Pain of right hand [ M79.641] Start: 02-20-2025 End: 02-22-2025 Telephone encounter Talita Ross MD Work Phone: [facility] Comment on above: Appointment (Appoint ment/Xray Reminder for 02/22/2025) Start: 01-27-2025 End: 01-27-2025 [facility] Yuliet Fong DO Work Phone: [place] [facility] Comment on above: Mood disorder; Insomnia, unspecified type; Anxiety Start: 01-24-2025 End: 01-24-2025 Nursing evaluation of patient and report Natali Weaver RN Work Phone: Endocrinology Comment on above: Type 2 diabetes macie itus with diabetic microalbuminuria, with long-term current use of insulin ([facility]) Start: 01-24-2025 End: 01-24-2025 ambulatory OSCAR BRIZUELA Facility:[facility] Start: 01-19-2025 End: 01-19-2025 Office outpatient visit 40 minutes Nikolai Nazario DO Work Phone: [facility] General Internal Medicine [facility] ([facility]) Comment on above: Chronic HFrEF (heart failure with reduced ejection fraction) ([facility]) (Primary Dx); Tobacco abuse; Type 2 diabetes mellitus with diabetic microalbuminuria, with long-term current use of insulin ([facility]); Hypercholesteremia; Primary hypertension; Coronary artery disease involving met[place] coronary artery of [place] heart without angina pectoris; Bipolar 1 disorder ([facility]); Obesity, Class III, BMI >= 40; Pain of right hand Start: 01-19-2025 End: 01-19-2025 ambulatory NIKOLAI NAZARIO Facility:[facility] Start: 01-18-2025 End: 01-26-2025 Telephone encounter Bre Varma DEVELOPMENTAL WRITING INSTRUCTOR - SENIOR JAVA J2EE DEVELOPER Work Phone: [facility] - [place] Comment on above: Other (HFdEF) Start: 01-17-2025 End: 01-17-2025 ambulatory Te Ramos sport psychologistPharmacy Benefit Manager Management Comment on above: ACM NAYA RN ( Chart review per payor request.) Start: 01-16-2025 End: 01-16-2025 Telephone encounter Yuliet Fong DO Work Phone: [place] [facility] Comment on above: Appointment (Set taco t for 01/27) Refill Request (mirt azapine (REMERON) 15 mg tablet/traZODone (DESYREL) 100 mg tablet) Start: 01-13-2025 End: 01-17-2025 ambulatory [facility] Start: 01-13-2025 End: 01-17-2025 Emergency department patient visit Harry Carey PA-C Work Phone: [facility] Cardiac Progressive Care Unit PCU 5W Comment [...] Oscar Brizuela MD Work Phone: [facility] Start: 12-21-2024 End: 12-21-2024 Patient encounter procedure Oscar Brizuela MD Work Phone: [facility] Comment on above: Population Health Na vigation Outreach (Judit Hart ) Start: 12-21-2024 End: 12-21-2024 Telephone encounter Oscar Brizuela MD Work Phone: [facility] Internal [facility] ([facility]) Comment on above: Patient Update Start: 12-08-2024 End: 12-08-2024 ambulatory ISSAC XIAO Facility:[facility] Start: 12-08-2024 End: 12-08-2024 Patient encounter procedure Issac Xiao MD Work Phone: [facility] (ENT) Comment on above: Lipoma of neck; Nontoxic multinodular goiter Start: 12-05-2024 End: 12-05-2024 Emergency department patient visit NONE PHYSICIAN Facility:[facility] Start: 12-03-2024 End: 12-03-2024 Emergency department patient visit NONE PHYSICIAN Facility:[facility] Start: 11-30-2024 ambulatory HECTOR FULTON Facility: [facility] Start: 11-30-2024 End: 11-30-2024 Subsequent hospital visit by physician Hector Fulton MD Work Phone: [facility] INTERVENTIONAL RADIOLOGY Comment on above: Neck mass [R22.1] Start: 11-24-2024 End: 11-25-2024 Refill No Pcp (Historical) [facility] Internal [facility] ([facility]) Comment on above: Refill Request Start: 11-21-2024 End: 11-21-2024 ambulatory Sandra Arita [facility] Start: 11-21-2024 End: 11-21-2024 Patient encounter procedure Sandra Youngbocker [facility] [place] Comment on above: Population Health Na vigation Outreach (Humana Attributed Member- Needs 2024 Medicare Wellness Appointment Scheduled/) Start: 11-14-2024 End: 11-14-2024 Telephone encounter Issac Xiao MD Work Phone: [facility] (ENT) Comment on above: needs CORE BIOPSY Start: 11-09-2024 End: 11-09-2024 Emergency department patient visit DR SERGEI DAWN DO [facility] Start: 11-09-2024 End: 11-09-2024 ambulatory ISSAC XIAO Facility:[facility] Start: 11-09-2024 End: 11-09-2024 Patient encounter procedure Issac Xiao MD Work Phone: [facility] (ENT) Comment on above: Neck mass; Nontoxic multinodular goiter; Lipoma of neck Start: 11-07-2024 End: 11-07-2024 Patient encounter procedure Inder Bruce MD Work Phone: [facility] Comment on above: Neck mass (Primary D x); Coronary artery disease involving met[place] coronary artery of [place] heart without angina pectoris Start: 11-07-2024 End: 11-07-2024 ambulatory INDER BRUCE Facility:[facility] Start: 11-02-2024 End: 11-02-2024 Follow-up encounter Oscar Brizuela MD Work Phone: [facility] [place] Comment on above: Uncontrolled type 2 diabetes mellitus with hyperglycemia (HCC); Primary hypertension; Coronary artery disease involving [place] coronary artery of [place] heart without angina pectoris; BMI 40.0-44.9, adult (HCC) Start: 11-01-2024 End: 11-01-2024 ambulatory [facility] Facility:[facility] Start: 11-01-2024 End: 11-01-2024 ambulatory [facility] Facility:[facility] Start: 11-01-2024 End: 11-01-2024 Subsequent hospital visit by physician Sejal [facility] (I-Stat) Work Phone: [facility] Comment on above: Neck mass [R22.1] Start: 10-27-2024 End: 10-27-2024 Patient encounter procedure Oscar Brizuela MD Work Phone: [facility] [place] Comment on above: Encounter for medica l examination to establish care (Primary Dx); Primary hypertension; Mixed hyperlipidemia; Type 2 diabetes mellitus with other specified complication, unspecified whether snf insulin use (HCC); Coronary artery disease involving [place] coronary artery of [place] heart without angina pectoris; S/P coronary artery stent placement; Chronic HFrEF (heart failure with reduced ejection fraction) (HCC); ELBERT (obstructive sleep apnea); Non-compliant patient; Hypothyroidism, unspecified type; Tobacco abuse Start: 10-27-2024 End: 10-27-2024 Patient encounter status Oscar Brizuela MD Work Phone: [facility] Start: 10-27-2024 End: 10-27-2024 ambulatory OSCAR BRIZUELA Facility:[facility] Start: 10-27-2024 Encounter for genera l adult medical examination without abnormal findings OSCAR BRIZUELA [facility] Start: 10-18-2024 End: 10-18-2024 Telephone encounter Oral Abbasi DO Work Phone: [facility] ([facility]) Comment on above: Referral Request (Ca rdiology ) Referral Information (Cardiology) Start: 10-18-2024 End: 10-18-2024 ambulatory ORAL ABBASI [place] Start: 10-18-2024 End: 10-18-2024 Patient encounter procedure Oral Abbasi DO Work Phone: [facility] ([facility]) Comment on above: Hypertension, unspec ified type (Primary Dx); Chronic HFrEF (heart failure with reduced ejection fraction) (HCC); Cough, unspecified type; Thrush (oral) Neck mass (Primary D x); Coronary artery disease involving [place] coronary artery of [place] heart without angina pectoris; S/P coronary artery stent placement; Primary hypertension; Class 3 severe obesity due to excess calories with serious comorbidity and body mass index (BMI) of 45.0 to 49.9 in adult (HCC) Start: 10-18-2024 End: 10-18-2024 ambulatory DUNCAN CRAVEN [place] Start: 10-13-2024 End: 10-18-2024 Telephone encounter Yuliet Fong DO Work Phone: [facility] Comment on above: Patient Update (Faxe d Diagnosis verification letter) Start: 10-12-2024 End: 10-12-2024 ambulatory Sandra ROBERTSON Pharmacy Benefit Manager Start: 10-12-2024 End: 10-12-2024 Home visit Sandra ROBERTSON Pharmacy Benefit Manager Comment on above: Population Health Na vigation Outreach (Humana Attributed Member- Chart Review/) Start: 10-12-2024 End: 10-12-2024 Telephone encounter Yuliet Fong DO Work Phone: [facility] Comment on above: Patient Update (Need release of Records form completed) Start: 10-11-2024 End: 10-14-2024 Refill Yuliet Fong DO Work Phone: [facility] Comment on above: Refill Request Referral Request Start: 10-07-2024 End: 10-07-2024 Telephone encounter Yuliet Fong DO Work Phone: [facility] Comment on above: Patient Update (Care star requesting information) Start: 10-04-2024 End: 10-04-2024 Telephone encounter Yuliet Munozenzo DO Work Phone: [facility] Comment on above: No Show (No show 1st ) Start: 09-05-2024 End: 09-05-2024 Refill Yuliet Alexanderenzo DO Work Phone: [facility] Comment on above: Refill Request Start: 08-31-2024 End: 08-31-2024 Emergency department patient visit Dr. Terry Gould MD -Emergency Department Work Phone: Start: 08-08-2024 End: 08-08-2024 Refill Monica Godoy MD Work Phone: [facility] ([facility]) Comment on above: Refill Request Start: 07-25-2024 End: 08-02-2024 Refill Gavin Betancur DO Work Phone: [facility] ([facility]) Comment on above: Refill Request Medication Problem ( Insulin froze ) Start: 07-21-2024 End: 07-25-2024 Telephone encounter Gavin Betancur DO Work Phone: [facility] ([facility]) Comment on above: Returning Patient's Call Start: 07-14-2024 End: 07-14-2024 ambulatory Denise Coronado RN Work Phone: [facility] Pharmacy Benefit Manager Start: 07-14-2024 End: 07-14-2024 Home visit Denise Coronado RN Work Phone: [facility]acy Benefit Manager Comment on above: Transition Of Care ( TCM follow up call ) Start: 07-07-2024 End: 07-16-2024 Refill Bhanu Edmondson APRN.SENIOR JAVA J2EE DEVELOPER Work Phone: [facility] Internal Medicine [facility] ([facility]) Comment on above: Refill Request Refill Request (rosu vastatin) Refill Request (Trul icity/) Refill Request (mult iple) Start: 06-07-2024 End: 06-07-2024 ambulatory Denise Coronado RN Work Phone: [facility] Pharmacy Benefit Manager Start: 06-07-2024 End: 06-07-2024 Home visit Denise Coronado RN Work Phone: Pharmacy Benefit Manager Comment on above: Transition Of Care ( TCM Follow up call ) Start: 06-06-2024 End: 06-06-2024 Telephone encounter Yousuf Ponce MD Work Phone: [facility] Cardiology [place] Comment on above: Results Start: 06-03-2024 End: 06-03-2024 Telephone encounter Boo Kiran APRN.SENIOR JAVA J2EE DEVELOPER Work Phone: [facility] Comment on above: Results Start: 06-02-2024 End: 06-02-2024 ambulatory SHOLA-ALI LOTFIAN Facility:[facility] Start: 05-27-2024 End: 05-27-2024 ambulatory SHOLA-ALI LOTFIAN Facility:[facility] Start: 05-25-2024 End: 05-25-2024 ambulatory Denise Coronado RN Work Phone: [facility] Pharmacy Benefit Manager Start: 05-25-2024 End: 05-25-2024 Home visit Denise Coronado RN Work Phone: Pharmacy Benefit Manager Comment on above: Transition Of Care ( TCM Follow up call ) Start: 05-16-2024 End: 05-16-2024 Telephone encounter Josette Mcgee RN [facility] Comment on above: Patient Update Start: 05-13-2024 End: 05-13-2024 Telephone encounter Josette Mcgee RN [facility] Comment on above: Patient Update Start: 05-12-2024 End: 05-12-2024 Telephone encounter Yana Andujarvis [facility] CARDIOPULMONARY REHAB Comment on above: Cardiac Rehab (Pt pr [facility]) Start: 05-11-2024 End: 05-11-2024 Nursing evaluation of patient and report Nurse Card Chf 1 [facility] Comment on above: Arrived Start: 05-10-2024 End: 05-10-2024 ambulatory Denise Coronado RN Work Phone: Pharmacy Benefit Manager Start: 05-10-2024 End: 05-10-2024 Telephone follow-up Denise Coronado RN Work Phone: Pharmacy Benefit Manager Comment on above: Transition Of Care ( TCM follow up call ) Weekly phone contact (Recurring) for Transitional Care Management Start: 05-03-2024 ambulatory Denise Coronado RN Work Phone: Pharmacy Benefit Manager Start: 05-03-2024 Telephone follow-up Denise benton RN Work Phone: Pharmacy Benefit Manager Comment on above: Transition Of Care ( TCM follow up call ) Weekly phone contact (Recurring) for Transitional Care Management Start: 04-29-2024 Telephone encounter Boo maddox APRN.SENIOR JAVA J2EE DEVELOPER Work Phone: [facility] Comment on above: 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; Medication Problem Start: 04-27-2024 End: 04-27-2024 Patient encounter procedure Boo Kiran APRN.SENIOR JAVA J2EE DEVELOPER Work Phone: [facility] Comment on above: Chronic HFrEF (heart failure with reduced ejection fraction) (HCC) (Primary Dx) Start: 04-26-2024 ambulatory Denise Coronado RN Work Phone: Pharmacy Benefit Manager Start: 04-26-2024 Telephone follow-up Denise Keller Dalia benton RN Work Phone: Pharmacy Benefit Manager Comment on above: Transition Of Care ( TCM follow up call) Weekly phone contact (Recurring) for Transitional Care Management Start: 04-19-2024 ambulatory Homa Kemp RN [facility] Start: 04-19-2024 Home visit Homa Kemp RN Amb[facility] Comment on above: Initial phone contac t for Transitional Care Management Start: 04-19-2024 End: 04-19-2024 Patient encounter procedure Javid Eugene MD Work Phone: [facility] ([facility]) Comment on above: Chronic systolic CHF (congestive heart failure) (HCC); Typical atrial flutter (HCC) Start: 04-19-2024 End: 04-19-2024 Telemedicine consultation with patient Javid Eugene MD Work Phone: [facility] ([facility]) Start: 04-18-2024 ambulatory Caty Noahnh alter [facility] Start: 04-18-[address]24 [address]ha Montoya [facility] Comment on above: Orders ([facility] order contact/ltr) Refill Request Transition Of Care ( TCM Pharmacy-Hospital discharge 04/15/24/) Start: 04-15-2024 Telephone encounter Bhanu Edmondson APRN.CNP Work Phone: [facility] Cardiology [place] Comment on above: Appointment (/) Start: 04-14-2024 End: 05-18-2024 Telephone encounter Gavin Betancur DO Work Phone: [facility] ([facility]) Start: 04-13-2024 Telephone encounter Josette Mcgee RN [facility] Comment on above: Appointment Start: 04-12-[address]24 [address]ha Montoya [facility] Comment on above: Orders ([facility] HFC refer ral contact/appt) Results Start: 04-12-2024 End: 04-12-2024 Subsequent hospital visit by physician [facility] GENERAL CARDIAC TESTING Comment on above: Hx of acute myocardi al infarction [I25.2] Start: 04-11-2024 End: 04-11-2024 Patient encounter procedure Gavin Pipe DO Work Phone: [facility] ([facility]) Comment on above: Bilateral lower extr emity edema (Primary Dx); Coronary artery disease involving met[place] coronary artery of [place] heart without angina pectoris; Primary hypertension; Glossitis; Mood disorder (HCC) Start: 03-29-2024 End: 03-29-2024 Emergency department patient visit KYLIE DURANT DO [facility] Start: 03-28-2024 End: 03-28-2024 Patient encounter procedure Zaid Szymanski DO Work Phone: [place] [facility] Comment on above: Contusion of left el bow, initial encounter (Primary Dx) Start: 02-19-2024 Telephone encounter Maloy Scott vaughan DO Work Phone: [facility] ([facility]) Comment on above: Forms (Disability ) Start: 02-03-2024 End: 02-03-2024 Patient encounter procedure Gavin Pipe DO Work Phone: [facility] ([facility]) Comment on above: Uncontrolled type 2 diabetes mellitus with hyperglycemia (HCC) (Primary Dx); Mild intermittent asthma, unspecified whether complicated; Primary hypertension; Coronary artery disease involving [place] coronary artery of [place] heart without angina pectoris; BMI 40.0-44.9, adult (HCC); Tobacco abuse; Seasonal allergies; Microscopic hematuria Start: 02-03-2024 End: 02-03-2024 Patient encounter procedure Yuliet Fong DO Work Phone: [place] [facility] Comment on above: Mood disorder (HCC) (Primary Dx); Insomnia, unspecified type; Anxiety; Cocaine use disorder in remission Start: 12-31-2023 Refill Gavin evans DO Work Phone: [facility] ([facility]) Comment on above: Refill Request (mult iple) Start: 12-27-2023 Refill Maloynoah evans DO Work Phone: [facility] ([facility]) Comment on above: Refill Request (Albu terol /trulicity) Refill Request (Insu duncan needles) Refill Request (need les) Start: 11-28-2023 End: 11-28-2023 Emergency department patient visit INDER PRAJAPATI MD [facility] Start: 11-19-2023 Refill Duncan tee MD Work Phone: [facility] ([facility]) Comment on above: Refill Request (trul icity) Start: 11-12-2023 ambulatory Nidia Valle MA [facility] Start: 11-12-2023 Patient encounter procedure Nidia Valle MA [facility] [place] Comment on above: Population Health Na vigation Outreach ([facility] Annual Wellness Visit /) Start: 11-09-2023 End: 11-09-2023 Subsequent hospital visit by physician [facility] Work Phone: Radiology Comment on above: Posterior auricular lymphadenopathy [R59.0] Start: 11-04-2023 Telephone encounter Yuliet Fong DO Work Phone: [place] [facility] Start: 11-02-2023 End: 11-02-2023 [facility] Yuliet Fong DO Work Phone: [place] [facility] Comment on above: Mood disorder (HCC) (Primary Dx); Anxiety; Insomnia, unspecified type; Cocaine use disorder in remission Start: 10-23-2023 End: 10-23-2023 Patient encounter procedure Anamaria Dangelo OD Work Phone: [facility] Comment on above: Type 2 diabetes macie itus without retinopathy (HCC) (Primary Dx); Cataract, nuclear sclerotic, both eyes; Hyperopia of both eyes; Regular astigmatism of both eyes; Presbyopia of both eyes Start: 09-10-2023 Telephone encounter Duncan Craven MD Work Phone: [facility] ([facility]) Comment on above: Referral Information (Multiple Consults) Start: 09-10-2023 End: 09-10-2023 Office outpatient visit 25 minutes Duncan Craven MD Work Phone: [facility] ([facility]) Comment on above: Uncontrolled type 2 diabetes [...] 09-04-2023 End: 09-04-2023 Emergency department patient visit [facility] Work Phone: Start: 09-03-2023 ambulatory Kym Medina RN [facility] Clin ical Communication Start: 09-03-2023 Patient encounter procedure Kym Medina RN [facility] Clinical Communication Start: 08-31-2023 End: 08-31-2023 Patient encounter procedure Arnulfo Jernigan PA-C Work Phone: [facility] Comment on above: Urinary frequency (P rimary Dx); Hyperglycemia; Sinobronchitis Start: 08-11-2023 Refill Gavin evans DO Work Phone: [facility] ([facility]) Comment on above: Refill Request (prov entil HFA) Start: 08-04-2023 End: 08-04-2023 Subsequent hospital visit by physician Echo Lab [facility] GENERAL CARDIAC TESTING Comment on above: Canceled (Pt cx: Taco ointment Conflict) Start: 07-29-2023 Telephone encounter Gavin vaughan DO Work Phone: [facility] ([facility]) Comment on above: F/U 6 months (2nd At tempt) Start: 07-29-2023 End: 07-29-2023 Subsequent hospital visit by physician Card Lab Nuclear Camera [facility] CARDIAC TESTING Comment on above: Hx of acute myocardi al infarction [I25.2] Start: 07-07-2023 End: 07-07-2023 Patient encounter procedure Gavin Betancur DO Work Phone: [facility] Medicine [facility] ([facility]) Comment on above: Hypothyroidism, unsp ecified type (Primary Dx); Primary insomnia; Uncontrolled type 2 diabetes mellitus with hyperglycemia (HCC); Bipolar 1 disorder (HCC); Primary hypertension; Osteoarthritis of both knees, unspecified osteoarthritis type Dyspnea on exertion (Primary Dx); Chronic cough; Tobacco abuse; Sleep-disordered breathing Start: 07-03-2023 Telephone encounter Talita cavazos MD Work Phone: [facility] Comment on above: Appointment (NO SHOW ) Start: 06-30-2023 End: 06-30-2023 Refill Yousuf Ponce MD Work Phone: [facility] Cardiology [place] Comment on above: Refill Request Skin infection (Prim flaco Dx); Chronic cough Start: 06-26-2023 End: 06-26-2023 Patient encounter procedure Yousuf Ponce MD Work Phone: [facility] [place] Comment on above: Morbid obesity (HCC) (Primary Dx); Hx of acute myocardial infarction; ELBERT (obstructive sleep apnea); Coronary artery disease involving [place] coronary artery of [place] heart without angina pectoris; Primary hypertension; Hyperlipidemia, unspecified hyperlipidemia type; BRASWELL (dyspnea on exertion); Tobacco abuse Start: 06-18-2023 End: 06-18-2023 Patient encounter procedure Alice Ralf DO Work Phone: [facility] Comment on above: Impingement syndrome of left shoulder (Primary Dx) Start: 06-12-2023 End: 06-12-2023 Patient encounter procedure Talita Ross MD Work Phone: [facility] Comment on above: Post-operative state (Primary Dx); Dupuytren's disease of palm of left hand Start: 06-03-2023 Telephone encounter Gavinnoah vaughan DO Work Phone: [facility] ([facility]) Comment on above: Patient Question Patient Update Start: 05-12-2023 Telephone encounter Talita cavazos MD Work Phone: [facility] Comment on above: Internal Referrals/r esources ([facility] referral) Appointment Start: 05-08-2023 End: 05-08-2023 Patient encounter procedure Talita Ross MD Work Phone: [facility] Comment on above: Dupuytren's disease of palm of left hand (Primary Dx); Cough in adult patient; Volar retinacular ganglion Start: 04-27-2023 End: 04-27-2023 Patient encounter procedure Maloynoah Betancur DO Work Phone: [facility] ([facility]) Comment on above: Uncontrolled type 2 diabetes mellitus with hyperglycemia (HCC) (Primary Dx); Mild intermittent asthma, unspecified whether complicated; Hypothyroidism, unspecified type Start: 04-23-2023 Telephone encounter Nurse Ha Carballo [facility] Work Phone: [facility] Diabetes Education [place] Comment on above: Appointment (LVM to please call scheduling for the Diabetes referral received from provider. Scheduling and office number provided./) Start: 04-07-2023 Telephone encounter Gavin vaughan DO Work Phone: [facility] ([facility]) Comment on above: Results; Appointment ; Orders Start: 03-31-2023 Telephone encounter No Pcp [facility] Comment on above: Appointment Start: 03-27-2023 Telephone encounter No Pcp [facility] Comment on above: Appointment Start: 03-25-2023 Telephone encounter Gavin vaughan DO Work Phone: [facility] ([facility]) Comment on above: Referral Information (Consult to psychiatry) Referral Information (Consult to orthopaedics) Referral Information (Consult to cardiology) Start: 03-25-2023 End: 03-25-2023 Patient encounter procedure Gavin Betancur Work Phone: [facility] Internal [facility] ([facility]) Comment on above: Encounter to [facility] (Primary Dx); Bipolar 1 disorder (HCC); Special [...] Date Procedure Procedure Detail Performing Clinician Start: 04-11-2025 Ecg routine ecg w/least 12 lds w/i&r Natali Alberts MD Work Phone: Start: 03-08-2025 Plain x-ray of wrist No Primary Care Physician Start: 02-22-2025 Arthrocentesis aspir&/inj small jt/bursa w/o us Talita Ross MD Work Phone: Start: 01-16-2025 [...] 01-15-2025 Thyrotropin [Units/volume] in Serum or Plasma Harry Carey PA-C Work Phone: Start: 01-15-2025 Basic [...] ecg w/least 12 lds i&r only Harry Carey PA-C Work Phone: Start: 01-05-2025 Estimated creatinine clearance No Primary Care Physician Start: 12-23-2024 CT of head without contrast Dr. Terry Gould MD Work Phone: Start: 12-23-2024 Estimated creatinine clearance No Primary Care Physician Start: 11-30-2024 Biopsy muscle percutaneous needle [facility] [...] 03-28-2024 Radex elbow complete minimum 3 views Zaid Szymanski DO Work Phone: Start: 02-03-2024 Hemoglobin A1c/Hemoglobin.total in Blood Gavin Betancur DO Work Phone: Start: 09-10-2023 Hemoglobin A1c/Hemoglobin.total in Blood Duncan Craven MD Work Phone: Start: 08-31-2023 Gluc bld gluc mntr dev cleared fda spec home use Arnulfo Jernigan PA-C Work Phone: Start: 08-31-2023 Urnls dip stick/tablet rgnt auto w/o microscopy Arnulfo Jernigan PA-C Work Phone: Start: 07-29-2023 Myocardial spect multiple studies Youusf Ponce MD Work Phone: Start: 07-14-2023 Radex shoulder complete minimum 2 views Alice Arambula DO Work Phone: Start: 06-26-2023 Ecg routine ecg w/least 12 lds w/i&r Yousuf Ponce MD Work Phone: Start: 05-08-2023 Injection 1 tendon sheath/ligament aponeurosis Talita Ross MD Work Phone: Start: 11-17-2016 History of placement of stent in anterior descending branch of left coronary artery Status post insertion of drug-eluting stent into left anterior descending artery for coronary artery disease Gavinnoah Betancur DO Work Phone: Start: 09-04-2014 History of placement of stent for coronary artery disease S/P coronary artery stent placement Gavin Sprcloverel DO Work Phone: Start: 04-12-2013 Colonoscopy Maloy Sprcloverel DO Work Phone: History of placement of stent for coronary artery disease S/P coronary artery stent placement Inder Bruce MD Work Phone: History of placement of stent for coronary artery disease S/P coronary artery stent placement Oscar Brizuela MD Work Phone: History of placement of stent in anterior descending branch of left coronary artery Status post insertion of drug-eluting stent into left anterior descending artery for coronary artery disease Natali Alberts MD Work Phone: History of placement of stent in anterior descending branch of left coronary artery Status post insertion of drug-eluting stent into left anterior descending artery for coronary artery disease Natali Alberts MD Work Phone: Plan of Treatment Date Care Activity Detail Author Start: 03-25-2028 PROSTATE CANCER SCREENING DISCUSSION PROSTATE CANCER SCREENING DISCUSSION [facility] Start: 03-25-2028 Prostate specific antigen measurement Prostate Cancer Screening Discussion [facility] Start: 04-26-2026 Annual PCP Team Chronic Disease Visit Annual PCP Team Chronic Disease Visit [facility] Start: 03-31-2026 Complete blood count Hemoglobin/Hematocrit [facility] Start: 03-31-2026 Creatinine measurement Serum Creatinine [facility] Start: 03-31-2026 Hepatitis B screening Urine Albumin:Creatinine Ratio [facility] Start: 03-31-2026 Hepatitis B surface antibody level LDL Cholesterol [facility] Start: 03-25-2026 DIABETES SCREEN DIABETES SCREEN [facility] Start: 03-12-2026 End: 04-11-2026 Echocardiography ECHO Cardiology Routine Coronary artery disease involving [place] coronary artery of [place] heart without angina pectoris Status post insertion of drug-eluting stent into left anterior descending artery for coronary artery disease Expected: 03/12/2026 (Approximate), Expires: 04/11/2026 [facility] Work Phone: Comment on above: Expected: 03/12/2026 (Approximate), Expi res: 04/11/2026 Start: 01-19-2026 Annual PCP Team Chronic Disease Visit Annual PCP Team Chronic Disease Visit [facility] Start: 01-16-2026 Creatinine measurement Creatinine Level [facility] Start: 01-16-2026 Diabetes: Estimated Glomerular Filtration Rate for Kidney Health Diabetes: Estimated Glomerular Filtration Rate for Kidney Health [facility] Start: 01-16-2026 Potassium measurement Potassium Level [facility] Start: 01-15-2026 Thyroid stimulating hormone measurement TSH Level [facility] Start: 01-14-2026 Echocardiography Echocardiogram [facility] Start: 01-13-2026 Hemoglobin A1c measurement Diabetes: Hemoglobin A1C [facility] Start: 12-08-2025 BP Controlled (<130/80) BP Controlled (<130/80) [facility] Start: 10-27-2025 Annual PCP Team Chronic Disease Visit Annual PCP Team Chronic Disease Visit [facility] Start: 10-27-2025 Covid-19 Vaccine ( season) Covid-19 Vaccine ( season) [facility] Comment on above: Postponed from 05/22/2024 (Declined at t his time) Start: 10-27-2025 Pneumococcal Vaccine: 50+ (1 of 2 - PCV) Pneumococcal Vaccine: 50+ (1 of 2 - PCV) [facility] Comment on above: Postponed from 1982 (Declined at t his time) Start: 10-27-2025 Screening for malignant neoplasm of lung Lung Cancer Screening [facility] Comment on above: Postponed from 2013 (Declined at t his time) Start: 10-18-2025 Annual PCP Team Chronic Disease Visit Annual PCP Team Chronic Disease Visit [facility] Start: 10-18-2025 Hepatitis B surface antibody level LDL Cholesterol [facility] Start: 10-01-2025 Hemoglobin A1c measurement HbA1C [facility] Start: 08-30-2025 End: 08-30-2025 Patient encounter procedure 08/30/2025 10:20 AM EST Office Visit [facility] ([facility]) 1 [facility] 5TH FLOOR [place], [place] [phone] Nikolai Nazario DO [address] [facility] 5th [place], [place] [phone] Follow up [facility] ([facility]) Comment on above: Follow up Start: 07-15-2025 Hemoglobin A1c measurement HbA1C [facility] Start: 07-12-2025 End: 10-11-2025 Lipid 1996 panel - Serum or Plasma LIPID PANEL, FASTING Lab Routine Coronary artery disease involving [place] coronary artery of [place] heart without angina pectoris Expected: 07/12/2025 (Approximate), Expires: 10/11/2025 [facility] Comment on above: Expected: 07/12/2025 (Approximate), Expi res: 10/11/2025 Start: 06-02-2025 Diabetes: Urine Albumin-Creatinine Ratio for Kidney Health Diabetes: Urine Albumin-Creatinine Ratio for Kidney Health [facility] Start: 06-02-2025 Hepatitis B screening Urine Albumin:Creatinine Ratio [facility] Start: 06-01-2025 End: 06-01-2025 Patient encounter procedure 06/01/2025 9:00 AM EDT Office Visit [facility] ([facility]) 1 [facility] 5TH [place], [place] [id number] Millicent Ba MD 1 [place], [place] [phone] Hemorrhoids [facility] ([facility]) Comment on above: Hemorrhoids Start: 05-25-2025 End: 05-25-2025 Patient encounter procedure 05/25/2025 8:00 AM EDT Office Visit Urology [address] [place] [address] Natali Gonsales MD [address] [place] [address] erectile dysfunction Urology Comment on above: erectile dysfunction Start: 05-22-2025 Influenza vaccination [facility] Start: 05-11-2025 BP Controlled (<130/80) BP Controlled (<130/80) [facility] in Start: 05-01-2025 Hemoglobin A1c measurement HbA1C [facility] Start: 04-26-2025 End: 04-26-2025 Patient encounter procedure 04/26/2025 9:00 AM EDT Office Visit [facility] ([facility]) [address] [place] [address] [address] [place], [place] [phone] Nikolai Nazario DO [address] [facility] 5th [place], [place] [phone] Est Care [facility] ([facility]) Comment on above: Est Care Start: 04-19-2025 Annual PCP Team Chronic Disease Visit Annual PCP Team Chronic Disease Visit [facility] Start: 04-11-2025 End: 04-11-2025 Patient encounter procedure [facility] [place] Comment on above: chronic heart failure with reduced eject ion fraction chronic heart failur e with reduced ejection fraction EKG /tem Start: 04-11-2025 Annual PCP Team Chronic Disease Visit Annual PCP Team Chronic Disease Visit [facility] Start: 04-04-2025 End: 04-04-2025 Nursing evaluation of patient and report 04/04/2025 9:00 AM EDT Nurse Visit [facility] ([facility]) 1 [facility] [address]TH [place], [place] [phone] [facility] 1 [facility], 5TH [place], [place] [phone] New Pt [facility] ([facility]) Comment on above: New Pt Start: 03-28-2025 End: 06-27-2025 Hemoglobin A1c in Blood HEMOGLOBIN A1C Lab Routine Type 2 diabetes mellitus with diabetic microalbuminuria, with long-term current use of insulin (HCC) Expected: 03/28/2025, Expires: 06/27/2025 [facility] Comment on above: Expected: 03/28/2025, Expires: Start: 03-28-2025 End: 06-27-2025 Testosterone [Mass/volume] in Serum or Plasma TESTOSTERONE, TOTAL BY IMMUNOASSAY (ADULT MALES, OR INDIVIDUALS ON TESTOSTERONE THERAPY) Lab Routine Drug-induced erectile dysfunction Expected: 03/28/2025, Expires: 06/27/2025 [facility] Work Phone: Comment on above: Expected: 03/28/2025, Expires: Start: 03-20-2025 Influenza vaccination [facility] Vaccine (#[facility] Comment on above: Postponed from 05/22/2024 (Declined at t his time) Start: 03-16-2025 Hepatitis B screening Urine Albumin:Creatinine Ratio [facility] Start: 03-08-2025 [facility] Start: 02-22-2025 End: 02-22-2025 Patient encounter procedure 02/22/2025 10:30 AM EDT Office Visit [facility] [address] [place] [address] [address] [place], [place] [phone] [place] [address] [place] [address] [address] [place] [address] broken right thumb from falling out of bed. [facility] Comment on above: broken right thumb from falling out of b ed. Start: 02-10-2025 End: 02-10-2025 Patient encounter procedure 02/10/2025 10:00 AM EDT Office Visit Orthopaedics [address] [address] Blossom Bagley PA-C [address] [place] [address] broken wrist bone Orthopaedics Comment on above: broken wrist bone Start: 02-07-2025 Covid-19 Vaccine ( season) Covid-19 Vaccine ( season) [facility] Comment on above: Postponed from 05/22/2023 (Declined at t his time) Start: 02-07-2025 Pneumococcal vaccination Pneumococcal Vaccine (1 of 2 - PCV) [facility] Comment on above: Postponed from 1969 (Declined at t his time) Start: 02-07-2025 RSV Vaccine (1 - 1-dose 60+ series) RSV Vaccine (1 - 1-dose 60+ series) [facility] Comment on above: Postponed from 2023 (Declined at t his time) Start: 02-07-2025 RSV Vaccine (1 - Risk 60-74 years 1-dose series) RSV Vaccine (1 - Risk 60-74 years 1-dose series) [facility] Comment on above: Postponed from 2023 (Declined at t his time) Start: 02-07-2025 Shingrix Vaccine (1 of 2) Shingrix Vaccine (1 of 2) [facility] Comment on above: Postponed from 2013 (Declined at t his time) Start: 02-07-2025 Urine microalbumin profile DTaP,Tdap,Td Vaccine (1 - Tdap) [facility] Comment on above: Postponed from 1982 (Declined at t his time) Start: 02-02-2025 Annual PCP Team Chronic Disease Visit Annual PCP Team Chronic Disease Visit [facility] Start: 02-02-2025 BP Controlled (<130/80) BP Controlled (<130/80) [facility] inic Start: 01-30-2025 End: 05-01-2025 Hemoglobin A1c in Blood HEMOGLOBIN A1C Lab Routine Uncontrolled type 2 diabetes mellitus with hyperglycemia (HCC) Expected: 01/30/2025, Expires: 05/01/2025 [facility] Work Phone: Comment on above: Expected: 01/30/2025, Expires: Start: 01-30-2025 End: 01-30-2025 Patient encounter procedure 01/30/2025 10:00 AM EDT Office Visit [place] [address] [place] [phone] Sabrina Kam PA-C [address] [place] [address] [facility] Start: 01-27-2025 End: 01-27-2025 Follow-up encounter 01/27/2025 8:30 AM EDT [facility] 1 [place] [address] Yuliet Fong DO 1 [place] [address] follow up - Hospital discharge [place] [facility] Comment on above: follow up - Hospital discharge Start: 01-24-2025 End: 01-24-2025 Nursing evaluation of patient and report 01/24/2025 9:00 AM EDT Nurse Visit Endocrinology [address] [place] [address] Natali Weaver, RN [address] [address] Type 2 diabetes mellitus with diabetic microalbuminuria, with long-term current use of insulin ([facility]) [E11.29, R80.9, Z79.4] Endocrinology Comment on above: Type 2 diabetes mellitus with diabetic m icroalbuminuria, with long-term current use of insulin (HCC) [E11.29, R80.9, Z79.4] Start: 01-19-2025 End: 04-20-2025 CBC W Auto Differential panel - Blood COMPLETE BLOOD COUNT AND DIFFERENTIAL Lab Routine Chronic HFrEF (heart failure with reduced ejection fraction) ([facility]) Expected: 01/19/2025, Expires: 04/20/2025 [facility] Comment on above: Expected: 01/19/2025, Expires: Start: 01-19-2025 End: 04-20-2025 Comprehensive metabolic 2000 panel - Serum or Plasma COMPREHENSIVE METABOLIC PANEL Lab Routine Chronic HFrEF (heart failure with reduced ejection fraction) ([facility]) Expected: 01/19/2025, Expires: 04/20/2025 [facility] Comment on above: Expected: 01/19/2025, Expires: Start: 01-19-2025 End: 04-20-2025 LIPID PANEL, NONFASTING LIPID PANEL, NONFASTING Lab Routine Hypercholesteremia Expected: 01/19/2025, Expires: 04/20/2025 [facility] Comment on above: Expected: 01/19/2025, Expires: Start: 01-19-2025 End: 04-20-2025 Lipoprotein a [Mass/volume] in Serum or Plasma LIPOPROTEIN (A) Lab Routine Hypercholesteremia Expected: 01/19/2025, Expires: 04/20/2025 [facility] Comment on above: Expected: 01/19/2025, Expires: Start: 01-19-2025 End: 04-20-2025 Microalbumin/Creatinine [Mass Ratio] in Urine ALBUMIN/CREATININE RATIO, URINE Lab Routine Type 2 diabetes mellitus with diabetic microalbuminuria, with long-term current use of insulin ([facility]) Expected: 01/19/2025, Expires: 04/20/2025 [facility] Comment on above: Expected: 01/19/2025, Expires: Start: 01-19-2025 End: 04-20-2025 Natriuretic peptide.B prohormone N-Terminal [Mass/volume] in Serum or Plasma NT PRO BNP Lab Routine Chronic HFrEF (heart failure with reduced ejection fraction) ([facility]) Expected: 01/19/2025, Expires: 04/20/2025 [facility] Work Phone: Comment on above: Expected: 01/19/2025, Expires: Start: 01-19-2025 End: 01-19-2025 Patient encounter procedure 01/19/2025 10:40 AM EDT Office Visit [facility] ([facility]) 1 [facility] 5TH [place] [address] Nikolai Nazario DO [address] [facility] 5th Floor [place], [place] [phone] hospital DC 01/17/25 [facility], heart issues; Establish care with new PCP [facility] ([facility]) Comment on above: hospital DC 01/17/25 [facility], heart issues; Establish care with new PCP Start: 01-10-2025 End: 01-10-2025 Patient encounter procedure 01/10/2025 1:40 PM EDT Office Visit [facility] ([facility]) 1 [facility] [address]TH [address] [place], [place] [phone] Claus Anderson DO 1 [facility] [address] [place] [address] est care // needs meds refilled // diabetes concerns // neck biopsy concerns [facility] ([facility]) Comment on above: est care // needs meds refilled // diabe michele concerns // neck biopsy concerns Start: 01-06-2025 [facility] Start: 12-23-2024 [facility] Start: 12-08-2024 End: 12-08-2024 Patient encounter procedure 12/08/2024 12:45 PM EDT Office Visit [facility] (ENT) [address] [place] [address] Issac Xiao MD [address] [place] [address] 1 mn f/u for neck [facility] (ENT) Comment on above: 1 mn f/u for neck Start: 11-30-2024 Hemoglobin A1c measurement HbA1C [facility] Start: 11-30-2024 End: 11-30-2024 Admission to same day surgery center 11/30/2024 8:00 AM EDT - 11/30/2024 9:00 AM EDT Surgery [facility] [address] [place] [address] [place] [address] [facility] , [address] [address] superficial neck mass [facility] Comment on above: superficial neck mass Start: 11-30-2024 End: 11-30-2024 Bx/exc lymph node needle superficial BIOPSY OR EXCISION LYMPH NODES(S) NEEDLE SUPERFICIAL Neck mass 11/30/2024 8:00 AM EDT [facility] Start: 11-30-2024 Subsequent hospital visit by physician 11/30/2024 8:00 AM EDT Hospital Encounter [facility] [address] [place] [address] [place] [address] [facility] , [address] [place] [address] Neck mass [R22.1] [facility] Comment on above: Neck mass [R22.1] Start: 11-14-2024 End: 11-14-2024 Patient encounter procedure 11/14/2024 1:15 PM EST Office [facility] 1 [facility] [address]rd [place] [address] Inder Bruce MD 1 [facility] [address] [place] [address] FOLLOW-UP AFTER CT NECK [facility] DEPART[facility] Comment on above: FOLLOW-UP AFTER CT NECK Start: 11-09-2024 End: 11-09-[address] [facility] Comment on above: FOLLOW-UP AFTER CT NECK Neck mass Start: 11-01-2024 End: 11-01-2024 Patient encounter procedure 11/01/2024 8:40 AM EST Appointment Cat Scan [address] [place], [place] [id number] Neck mass [R22.1] Cat Scan Comment on above: Neck mass [R22.1] Start: 10-27-2024 End: 10-27-2024 Patient encounter procedure 10/27/2024 1:40 PM EST Office Visit [facility] [place] [address] [place], [place] [id number] Oscar Brizuela MD [address] [facility] [place] [address] est care [facility] [place] Comment on above: est care Start: 10-23-2024 Glaucoma screening Dilated Retinal Exam [facility] Start: 10-20-2024 Annual PCP Team Chronic Disease Visit Annual PCP Team Chronic Disease Visit [facility] Start: 10-20-2024 Hepatitis B screening Urine Albumin:Creatinine Ratio [facility] Start: 10-20-2024 Hepatitis B surface antibody level LDL Cholesterol [facility] Start: 10-18-2024 End: 01-17-2025 CREATININE BLD CREATININE BLD Lab Routine Neck mass Expected: 10/18/2024, Expires: 01/17/2025 [facility] Comment on above: Expected: 10/18/2024, Expires: Start: 10-11-2024 End: 01-10-2025 Lipid 1996 panel - Serum or Plasma LIPID PANEL BASIC Lab Routine Mixed hyperlipidemia Expected: 10/11/2024, Expires: 01/10/2025 [facility] Work Phone: Comment on above: Expected: 10/11/2024, Expires: Start: 10-04-2024 End: 10-04-2024 Patient encounter procedure 10/04/2024 1:00 PM EST Office Visit [facility] [address] [place] [address] Yuliet Fong DO 1 [place] [address] follow up [facility] Comment on above: follow up Start: 09-21-2024 Medicare Advantage Annual Wellness Visit Medicare Advantage Annual Wellness Visit [facility] Start: 09-12-2024 End: 09-12-2024 Patient encounter procedure [facility] Comment on above: three month follow up with TACO after car diology visit - per Start: 09-10-2024 Annual PCP Team Chronic Disease Visit Annual PCP Team Chronic Disease Visit [facility] Start: 08-31-2024 [facility] Start: 08-31-2024 [facility] Start: 08-05-2024 Hemoglobin A1c measurement HbA1C [facility] Start: 08-02-2024 End: 08-02-2024 Patient encounter procedure [facility] General Cardiology Comment on above: Overdue Follow upricki. Overdue Follow up, qasim jang. (JOSE 06/26/2023)-jacinta Start: 07-07-2024 Annual PCP Team Chronic Disease Visit Annual PCP Team Chronic Disease Visit [facility] Start: 07-03-2024 End: 10-02-2024 Basic metabolic 2000 panel - Serum or Plasma BASIC METABOLIC PANEL Lab Routine Heart failure with reduced ejection fraction (HCC) Expected: 07/03/2024 (Approximate), Expires: 10/02/2024 [facility] Work Phone: Comment on above: Expected: 07/03/2024 (Approximate), Expi res: 10/02/2024 Start: 06-20-2024 End: 06-20-2024 Patient encounter procedure 06/20/2024 3:30 PM EDT Office Visit [facility] General Cardiology [address] [facility] [address] [place], [place] [id number] Bhanu Edmondson APRN.SENIOR JAVA J2EE DEVELOPER [address] [place], [place] [phone] 6-8 wk CHF srs [facility] General Cardiology Antimony Comment on above: 6-8 wk CHF srs Start: 06-14-2024 End: 06-14-2024 Patient encounter procedure 06/14/2024 4:00 PM EDT Office Visit [facility] ([facility]) 1 [facility] 5TH FLOOR [place], [place] [phone] Jair Alberto MD 1 [facility] [address] [place], [place] [phone] Follow up, instructed to follow up with PCP regarding recent labs [facility] Internal Medicine [facility] ([facility]) Comment on above: Follow up, instructed to follow up with PCP regarding recent labs Start: 06-13-2024 End: 06-13-2024 Patient encounter procedure 06/13/2024 11:15 AM EDT Office Visit [facility] [address] [place] [address] Boo Kiran APRN.SENIOR JAVA J2EE DEVELOPER [address] [place], [place] [phone] 3, Nurse Card Chf one month follow up with Trinity Kiran [facility] Comment on above: one month follow up with Trinity Kiran Start: 05-22-2024 Covid-19 Vaccine ( season) Covid-19 Vaccine () [facility] Start: 05-22-2024 Covid-19 Vaccine () Covid-19 Vaccine () [facility] Start: 05-22-2024 Influenza vaccination [facility] Start: 05-13-2024 End: 08-12-2024 Basic metabolic 2000 panel - Serum or Plasma BASIC METABOLIC PANEL Lab Routine Chronic HFrEF (heart failure with reduced ejection fraction) ([facility]) Expected: 05/13/2024, Expires: 08/12/2024 [facility] Work Phone: Comment on above: Expected: 05/13/2024, Expires: Start: 05-11-2024 End: 05-11-2024 Nursing evaluation of patient and report 05/11/2024 11:00 AM EDT Nurse Visit [facility] [address] [place], [place] [phone] 1, Nurse Card Chf 2 week f/u [facility] Comment on above: 2 week f/u Start: 05-06-2024 End: 05-06-2024 Patient encounter procedure 05/06/2024 11:00 AM EDT Office Visit [facility] [address] [place] [address] Yuliet Fong DO 1 [place] [address] follow up [facility] Comment on above: follow up Start: 04-27-2024 End: 04-27-2024 Patient encounter procedure 04/27/2024 3:45 PM EDT Office Visit [facility] [address] [place] [address] Boo Kiran APRN.SENIOR JAVA J2EE DEVELOPER [address] [place] [address] 3, Nurse Card Chf PCP referral [facility] Comment on above: PCP referral Start: 04-27-2024 ANNUAL PCP TEAM CHRONIC DISEASE VISIT ANNUAL PCP TEAM CHRONIC DISEASE VISIT [facility] Start: 04-25-2024 End: 07-25-2024 Basic metabolic 2000 panel - Serum or Plasma BASIC METABOLIC PANEL Lab Routine HFrEF (heart failure with reduced ejection fraction) ([facility]) Expected: 04/25/2024, Expires: 07/25/2024 [facility] Work Phone: Comment on above: Expected: 04/25/2024, Expires: Start: 04-19-2024 End: 04-19-2024 Follow-up encounter [facility] ([facility]) Comment on above: 1 week follow-up 1 week follow-up/ TC M Start: 04-15-2024 End: 04-15-2024 Admission to same day surgery center 04/15/2024 10:00 AM EDT - 04/15/2024 11:30 AM EDT Surgery [facility] [address] [place] [address] Natail Rendon MD [address] [place] [address] LEFT HEART CATH INTRAPROCEDURAL INJECT W/ LEFT VENTRICULOGRAPHY IMAGE SUPERVISION/INTERPRETATIO N [facility] Comment on above: LEFT HEART CATH INTRAPROCEDURAL INJECT W / LEFT VENTRICULOGRAPHY IMAGE SUPERVISION/INTERPRETATION Start: 04-15-2024 End: 04-15-2024 L hrt cath w/njx l ventriculography img s&i LEFT HEART CATH INTRAPROCEDURAL INJECT W/ LEFT VENTRICULOGRAPHY IMAGE SUPERVISION/INTERPRETATIO N Cardiomyopathy, unspecified type (HCC) 04/15/2024 10:00 AM EDT [facility] Start: 04-15-2024 Subsequent hospital visit by physician 04/15/2024 10:00 AM EDT Hospital Encounter [facility] [place] [address] Natali Rendon MD [address] [place] [address] Cardiomyopathy, unspecified type (HCC) [I42.9] [facility] Comment on above: Cardiomyopathy, unspecified type (HCC) [ I42.9] Start: 04-14-2024 End: 04-14-2024 Patient encounter procedure 04/14/2024 7:15 AM EDT Appointment [facility] [place] [address] Bilateral lower extremity edema [R60.0] [facility] Comment on above: Bilateral lower extremity edema [R60.0] Start: 04-13-2024 End: 04-13-2024 Nursing evaluation of patient and report 04/13/2024 1:00 PM EDT Nurse Visit [facility] [address] [place] [address] 1, Nurse Card Chf [facility] Comment on above: [facility]Health Start: 04-12-2024 End: 07-12-2024 CBC panel - Blood by Automated count COMPLETE BLOOD COUNT Lab Routine Systolic dysfunction without heart failure Abnormal echocardiogram Expected: 04/12/2024, Expires: 07/12/2024 [facility] Work Phone: Comment on above: Expected: 04/12/2024, Expires: Start: 04-12-2024 End: 04-12-2024 Patient encounter procedure 04/12/2024 7:00 AM EDT Appointment [facility] [address] [place] [address] Bilateral lower extremity edema [R60.0]; Coronary artery disease involving [place] coronary artery of [place] heart without angina pectoris [I25.10] [facility] Comment on above: Bilateral lower extremity edema [R60.0]; Coronary artery disease involving [place] coronary artery of [place] heart without angina pectoris [I25.10] Start: 04-11-2024 End: 07-11-2024 Ferritin [Mass/volume] in Serum or Plasma FERRITIN Lab Routine Glossitis Expected: 04/11/2024, Expires: 07/11/2024 [facility] Comment on above: Expected: 04/11/2024, Expires: Start: 04-11-2024 End: 04-11-2024 Patient encounter procedure 04/11/2024 8:40 AM EDT Office Visit [facility] ([facility]) 1 [facility] 5TH [place] [address] Gavin Betancur DO 1 [facility] [address] [place] [address] follow up [facility] ([facility]) Comment on above: follow up Start: 03-25-2024 ANNUAL PCP TEAM CHRONIC DISEASE VISIT ANNUAL PCP TEAM CHRONIC DISEASE VISIT [facility] Start: 03-25-2024 COLORECTAL CANCER SCREENING COLORECTAL CANCER SCREENING [facility] Comment on above: Postponed from 2008 (Declined at t his time) Start: 03-25-2024 Hemoglobin A1c measurement Diabetes: Hemoglobin A1C [facility] Start: 03-25-2024 Screening for malignant neoplasm of colon Colorectal Cancer Screening [facility] Comment on above: Postponed from 2008 (Declined at t his time) Start: 03-07-2024 End: 03-07-2024 Patient encounter procedure 03/07/2024 9:00 AM EDT Office Visit [facility] ([facility]) 1 [facility] [address] [address] Gavin Betancur DO 1 [facility] [address] [place] [address] neck and legs issues lump on his neck [facility] ([facility]) Comment on above: neck and legs issues lump on his neck Start: 02-03-2024 End: 05-04-2024 Microalbumin/Creatinine [Mass Ratio] in Urine ALBUMIN/CREATININE RATIO, URINE Lab Routine Uncontrolled type 2 diabetes mellitus with hyperglycemia (HCC) Expected: 02/03/2024, Expires: 05/04/2024 [facility] Comment on above: Expected: 02/03/2024, Expires: 4 Start: 02-03-2024 End: 05-04-2024 Urinalysis complete panel - Urine URINALYSIS WITH MICROSCOPIC, REFLEX CULTURE Lab Routine Microscopic hematuria Expected: 02/03/2024, Expires: 05/04/2024 [facility] Comment on above: Expected: 02/03/2024, Expires: 4 Start: 12-10-2023 Hemoglobin A1c measurement HbA1C [facility] Start: 10-05-2023 End: 10-05-2023 Patient encounter procedure 10/05/2023 9:00 AM EST Office Visit [facility] [address] [place] [address] Nehemiah Bonilla MD [address] [place] [address] [facility] Start: 09-21-2023 Depression Assessment Depression Assessment [facility] Start: 09-10-2023 End: 12-10-2023 ALBUMIN/CREAT RATIO RND UR ALBUMIN/CREAT RATIO RND UR Lab Routine Uncontrolled type 2 diabetes mellitus with hyperglycemia (HCC) Expected: 09/10/2023, Expires: 12/10/2023 [facility] Work Phone: Comment on above: Expected: 09/10/2023, Expires: 4 Start: 09-10-2023 End: 12-10-2023 Basic metabolic 2000 panel - Serum or Plasma BASIC METABOLIC PNL Lab Routine Uncontrolled type 2 diabetes mellitus with hyperglycemia (HCC) Expected: 09/10/2023, Expires: 12/10/2023 [facility] Work Phone: Comment on above: Expected: 09/10/2023, Expires: 4 Start: 09-10-2023 End: 12-10-2023 CBC panel - Blood by Automated count CBC Lab Routine Uncontrolled type 2 diabetes mellitus with hyperglycemia (HCC) Primary hypertension Expected: 09/10/2023, Expires: 12/10/2023 [facility] Work Phone: Comment on above: Expected: 09/10/2023, Expires: 4 Start: 09-10-2023 End: 12-10-2023 Lipid 1996 panel - Serum or Plasma LIPID PANEL BASIC Lab Routine Uncontrolled type 2 diabetes mellitus with hyperglycemia (HCC) Expected: 09/10/2023, Expires: 12/10/2023 [facility] Work Phone: Comment on above: Expected: 09/10/2023, Expires: Start: 09-10-2023 End: 12-10-2023 Thyrotropin [Units/volume] in Serum or Plasma TSH BLD Lab Routine Hypothyroidism Expected: 09/10/2023, Expires: 12/10/2023 [facility] Work Phone: Comment on above: Expected: 09/10/2023, Expires: 4 Start: 09-04-2023 [facility] Start: 08-31-2023 End: 11-30-2023 Bacteria identified in Urine by Culture [facility] Work Phone: Comment on above: Expected: 08/31/2023, Expires: 4 Start: 07-07-2023 End: 10-06-2023 Thyrotropin [Units/volume] in Serum or Plasma TSH BLD Lab Routine Hypothyroidism, unspecified type Expected: 07/07/2023, Expires: 10/06/2023 [facility] Work Phone: Comment on above: Expected: 07/07/2023, Expires: 4 Start: 06-26-2023 End: 08-26-2023 CBC panel - Blood by Automated count CBC Lab Routine Coronary artery disease involving [place] coronary artery of [place] heart without angina pectoris Primary hypertension Hyperlipidemia, unspecified hyperlipidemia type Expected: 06/26/2023, Expires: 08/26/2023 [facility] Work Phone: Comment on above: Expected: 06/26/2023, Expires: 3 Start: 06-26-2023 End: 08-26-2023 Comprehensive metabolic 2000 panel - Serum or Plasma COMP METABOLIC PANEL Lab Routine Coronary artery disease involving [place] coronary artery of [place] heart without angina pectoris Primary hypertension Hyperlipidemia, unspecified hyperlipidemia type Expected: 06/26/2023, Expires: 08/26/2023 [facility] Work Phone: Comment on above: Expected: 06/26/2023, Expires: 3 Start: 06-26-2023 End: 08-26-2023 Lipid 1996 panel - Serum or Plasma LIPID PANEL BASIC Lab Routine Coronary artery disease involving [place] coronary artery of [place] heart without angina pectoris Primary hypertension Hyperlipidemia, unspecified hyperlipidemia type Expected: 06/26/2023, Expires: 08/26/2023 [facility] Work Phone: Comment on above: Expected: 06/26/2023, Expires: 3 Start: 06-25-2023 End: 08-25-2023 Hemoglobin A1c in Blood HGB A1C Lab Routine Uncontrolled type 2 diabetes mellitus with hyperglycemia (HCC) Expected: 06/25/2023, Expires: 08/25/2023 [facility] Work Phone: Comment on above: Expected: 06/25/2023, Expires: Start: 06-25-2023 Hemoglobin A1c/Hemoglobin.total in Blood HBA1C [facility] Start: 05-22-2023 Covid-19 Vaccine () Covid-19 Vaccine () [facility] Start: 05-22-2023 Influenza vaccination [facility] Start: 2023 Hepatitis B Vaccine (1 of 3 - Risk 3-dose series) Hepatitis B Vaccine (1 of 3 - Risk 3-dose series) [facility] Start: 2023 RSV Immunization aged 60 or older (1 - 1-dose 60+ series) RSV Immunization aged 60 or older (1 - 1-dose 60+ series) [facility] Start: 2023 RSV Immunization for Adults (1 - Risk 60-74 years 1-dose series) RSV Immunization for Adults (1 - Risk 60-74 years 1-dose series) [facility] Start: 2023 RSV Vaccine (1 - 1-dose 60+ series) RSV Vaccine (1 - 1-dose 60+ series) [facility] Start: 2023 RSV Vaccine (1 - Risk 60-74 years 1-dose series) RSV Vaccine (1 - Risk 60-74 years 1-dose series) [facility] Start: 04-27-2023 End: 06-27-2023 Thyrotropin [Units/volume] in Serum or Plasma TSH BLD Lab Routine Hypothyroidism, unspecified type Expected: 04/27/2023, Expires: 06/27/2023 [facility] Work Phone: Comment on above: Expected: 04/27/2023, Expires: 3 Start: 03-25-2023 End: 05-25-2023 Lipid 1996 panel - Serum or Plasma LIPID PANEL BASIC Lab Routine Encounter to establish care Expected: 03/25/2023, Expires: 05/25/2023 [facility] Work Phone: Comment on above: Expected: 03/25/2023, Expires: 3 Start: 04-12-2014 Colonoscopy COLONOSCOPY [facility] Start: 04-12-2014 Screening for malignant neoplasm of colon [facility] Start: 2013 Influenza vaccination Lung Cancer Screening [facility] Start: 2013 Screening for malignant neoplasm of lung Lung Cancer Screening [facility] Start: 2013 SHINGRIX VACCINE (1 of 2) SHINGRIX VACCINE (1 of 2) [facility] Start: 2013 Zoster Vaccines (1 of 2) Zoster Vaccines (1 of 2) [facility] Start: 2008 COLOGUARD (FIT-DNA) COLOGUARD (FIT-DNA) [facility] Start: [address] COLONOGRAPHY [facility] Start: 2008 FECAL OCCULT BLOOD FECAL OCCULT BLOOD [facility] Start: 2008 Screening for malignant neoplasm of colon [facility] Start: 2008 SIGMOIDOSCOPY SIGMOIDOSCOPY [facility] Start: 1998 LIPID SCREEN LIPID SCREEN [facility] Start: 1982 DTaP/Tdap/Td Vaccines (1 - Tdap) DTaP/Tdap/Td Vaccines (1 - Tdap) [facility] Start: 1982 Pneumococcal Vaccine: 50+ (1 of 2 - PCV) Pneumococcal Vaccine: 50+ (1 of 2 - PCV) [facility] Start: 1982 Pneumococcal Vaccine: 50+ Years (1 of 2 - PCV) Pneumococcal Vaccine: 50+ Years (1 of 2 - PCV) [facility] Start: 1982 Urine microalbumin profile [facility] Start: 1981 Anxiety Screening Anxiety Screening [facility] Start: 1981 BP Controlled (<130/80) BP Controlled (<130/80) [facility] Start: 1981 Depression Screening Depression Screening [facility] Start: 1981 Hepatitis B surface antibody level LDL CHOLESTEROL [facility] Start: 1981 Hepatitis C screening Hepatitis C Screening [facility] Start: 1981 Spirometry Spirometry [facility] Start: 1975 Depression Screening Depression Screening [facility] Start: 1973 3 comp foot exam completed DIABETIC FOOT EXAM [facility] Start: 1973 Diabetic foot examination [facility] Start: 1973 Glaucoma screening [facility] Start: 1973 Hepatitis B screening URINE ALBUMIN:CREATININE RATIO [facility] Start: 1973 Hepatitis C antibody, confirmatory test DILATED RETINAL EXAM [facility] Start: 1973 Preventive dental service Diabetes: Dental Exam [facility] Start: 1969 PNEUMOCOCCAL (1 - PCV) PNEUMOCOCCAL (1 - PCV) [facility] Start: 1969 [facility] Start: 1969 Pneumococcal Vaccine: Pediatrics (0 to 5 Years) and At-Risk Patients (6 to 64 Years) (1 - PCV) Pneumococcal Vaccine: Pediatrics (0 to 5 Years) and At-Risk Patients (6 to 64 Years) (1 - PCV) [facility] Start: 1964 MMR Vaccines (1 of 1 - Standard series) MMR Vaccines (1 of 1 - Standard series) [facility] Start: 1963 COVID-19 VACCINE (#1) COVID-19 VACCINE (#1) [facility] Start: 1963 HIV screening HIV Screening [facility] Start: 1963 Lipid panel Lipid Panel [facility] Start: 1963 Screening for malignant neoplasm of colon [facility] Chlamydia trachomatis+Neisseria gonorrhoeae DNA [Presence] in Unspecified specimen by SUSANNAH with probe detection GONORRHEA/CHLAMYDIA NAAT Lab Routine Screen for STD (sexually transmitted disease) Ordered: 03/25/2023 [facility] Work Phone: Comment on above: Ordered: 03/25/2023 End: 11-17-2025 CT Neck W contrast IV CT NECK SOFT TISSUE W IVCON Radiology Routine Neck mass 1 Occurrences starting 10/18/2024 until 11/17/2025 [facility] Work Phone: Comment on above: 1 Occurrences starting 10/18/2024 until 11/17/2025 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 CYTOLOGY NON-GY N Lab Routine Neck mass 11/09/2024 12:00 PM EST [facility] Work Phone: End: 06-26-2024 Echocardiography ECHO Cardiology Routine Hx of acute myocardial infarction Coronary artery disease involving [place] coronary artery of [place] heart without angina pectoris 1 Occurrences starting 06/26/2023 until 06/26/2024 [facility] Work Phone: Comment on above: 1 Occurrences starting 06/26/2023 until 06/26/2024 End: 04-11-2025 Echocardiography ECHO Cardiology Routine Bilateral lower extremity edema Coronary artery disease involving [place] coronary artery of [place] heart without angina pectoris 1 Occurrences starting 04/11/2024 until 04/11/2025 [facility] Comment on above: 1 Occurrences starting 04/11/2024 until 04/11/2025 Guidance for biopsy of Lymph node IMAGING GUIDED BIOPSY CERVICAL LYMPH NODE Radiology Routine Neck mass Lipoma of neck Ordered: 11/14/2024 [facility] Work Phone: Comment on above: Ordered: 11/14/2024 HGBA1C B/O (AG) HGBA1C B/O (AG) Lab Routine Uncontrolled type 2 diabetes mellitus with hyperglycemia (HCC) Ordered: 02/03/2024 [facility] Work Phone: Comment on above: Ordered: 02/03/2024 End: 07-06-2024 HOME SLEEP APNEA TEST (HSAT) HOME SLEEP APNEA TEST (HSAT) Procedures Routine Sleep-disordered breathing 1 Occurrences starting 07/07/2023 until 07/06/2024 [facility] Work Phone: Comment on above: 1 Occurrences starting 07/07/2023 until 07/06/2024 End: 05-26-2024 LUNG DIFFUSION CAPACITY (DLCO) LUNG DIFFUSION CAPACITY (DLCO) PFT Routine Mild intermittent asthma, unspecified whether complicated 1 Occurrences starting 04/27/2023 until 05/26/2024 [facility] Work Phone: Comment on above: 1 Occurrences starting 04/27/2023 until 05/26/2024 End: 08-05-2024 LUNG DIFFUSION CAPACITY (DLCO) LUNG DIFFUSION CAPACITY (DLCO) PFT Routine Dyspnea on exertion Chronic cough Tobacco abuse 1 Occurrences starting 07/07/2023 until 08/05/2024 [facility] Work Phone: Comment on above: 1 Occurrences starting 07/07/2023 until 08/05/2024 End: 10-09-2024 LUNG DIFFUSION CAPACITY (DLCO) LUNG DIFFUSION CAPACITY (DLCO) PFT Routine Mild intermittent asthma, unspecified whether complicated 1 Occurrences starting 09/10/2023 until 10/09/2024 [facility] Work Phone: Comment on above: 1 Occurrences starting 09/10/2023 until 10/09/2024 End: 05-26-2024 LUNG VOLUMES LUNG VOLUMES PFT Routine Mild intermittent asthma, unspecified whether complicated 1 Occurrences starting 04/27/2023 until 05/26/2024 [facility] Work Phone: Comment on above: 1 Occurrences starting 04/27/2023 until 05/26/2024 End: 08-05-2024 LUNG VOLUMES LUNG VOLUMES PFT Routine Dyspnea on exertion Chronic cough Tobacco abuse 1 Occurrences starting 07/07/2023 until 08/05/2024 [facility] Work Phone: Comment on above: 1 Occurrences starting 07/07/2023 until 08/05/2024 End: 10-09-2024 LUNG VOLUMES LUNG VOLUMES PFT Routine Mild intermittent asthma, unspecified whether complicated 1 Occurrences starting 09/10/2023 until 10/09/2024 [facility] Work Phone: Comment on above: 1 Occurrences starting 09/10/2023 until 10/09/2024 End: 07-25-2024 NM CARDIAC PERF STRESS/PHARM NM CARDIAC PERF STRESS/PHARM Radiology Routine Hx of acute myocardial infarction Coronary artery disease involving [place] coronary artery of [place] heart without angina pectoris 1 Occurrences starting 06/26/2023 until 07/25/2024 [facility] Work Phone: Comment on above: 1 Occurrences starting 06/26/2023 until 07/25/2024 Patient Education [facility] Work Phone: Patient referral [facility] Work Phone: Physical performance test/greer w/reprt ea 15 min PHYSICAL PERFORMANCE TEST Procedures Routine Disability examination Ordered: 02/26/2024 [facility] Work Phone: Comment on above: Ordered: 02/26/2024 End: 09-09-2024 Polysomnogram POLYSOMNOGRAM (PSG) Procedures Routine Morbid obesity (HCC) 1 Occurrences starting 09/10/2023 until 09/09/2024 [facility] Work Phone: Comment on above: 1 Occurrences starting 09/10/2023 until 09/09/2024 End: 10-27-2025 Polysomnogram POLYSOMNOGRAM (PSG) Procedures Routine ELBERT (obstructive sleep apnea) 1 Occurrences starting 10/27/2024 until 10/27/2025 [facility] Work Phone: Comment on above: 1 Occurrences starting 10/27/2024 until 10/27/2025 End: 08-05-2024 Radiologic exam chest 2 views XR CHEST 2V FRONTAL/LAT Radiology Routine Dyspnea on exertion Chronic cough Tobacco abuse 1 Occurrences starting 07/07/2023 until 08/05/2024 [facility] Work Phone: Comment on above: 1 Occurrences starting 07/07/2023 until 08/05/2024 End: 10-09-2024 SPIROMETRY - BASELINE AND POST DILATOR SPIROMETRY - BASELINE AND POST DILATOR PFT Routine Mild intermittent asthma, unspecified whether complicated 1 Occurrences starting 09/10/2023 until 10/09/2024 [facility] Work Phone: Comment on above: 1 Occurrences starting 09/10/2023 until 10/09/2024 End: 05-26-2024 SPIROMETRY WITH DILATOR IF OBSTRUCTED SPIROMETRY WITH DILATOR IF OBSTRUCTED PFT Routine Mild intermittent asthma, unspecified whether complicated 1 Occurrences starting 04/27/2023 until 05/26/2024 [facility] Work Phone: Comment on above: 1 Occurrences starting 04/27/2023 until 05/26/2024 End: 08-05-2024 SPIROMETRY WITH DILATOR IF OBSTRUCTED SPIROMETRY WITH DILATOR IF OBSTRUCTED PFT Routine Dyspnea on exertion Chronic cough Tobacco abuse 1 Occurrences starting 07/07/2023 until 08/05/2024 [facility] Work Phone: Comment on above: 1 Occurrences starting 07/07/2023 until 08/05/2024 End: 11-30-2024 Tissue Pathology biopsy report [facility] Work Phone: Comment on above: ONCE for 1 Occurrences starting 12/01/19 until 11/30/2024, 1 completed URINE MICROALBUMIN B/O URINE ANDRE ROALBUMIN B/O Lab Routine Uncontrolled type 2 diabetes mellitus with hyperglycemia (HCC) 1 Occurrences starting 04/27/2023 [facility] Work Phone: Comment on above: 1 Occurrences starting 04/27/2023 US Head and neck sof t tissue US HEAD/NECK SOFT TISSUE OTHER Radiology Routine Posterior auricular lymphadenopathy 11/09/2023 9:15 AM EST [facility] Work Phone: End: 04-11-2025 US Lower extremity vein US LEG VEIN DVT UNL VAS LAB Vascular Lab Routine Bilateral lower extremity edema 1 Occurrences starting 04/11/2024 until 04/11/2025 [facility] Work Phone: Comment on above: 1 Occurrences starting 04/11/2024 until 04/11/2025 End: 02-18-2026 XR Hand - right PA and Lateral and Oblique XR HAND GENERAL 3V PA/LAT/OBL RIGHT Radiology Routine Pain of right hand 1 Occurrences starting 01/19/2025 until 02/18/2026 [facility] Comment on above: 1 Occurrences starting 01/19/2025 until 02/18/2026 XR Hand - right PA a nd Lateral and Oblique XR HAND GENERAL 3V PA/LAT/OBL RIGHT Radiology Routine Pain of right hand 02/22/2025 9:47 AM EDT [facility] Work Phone: End: 08-05-2024 XR KNEE LIMITED 2V AP/LAT LEFT XR KNEE LIMITED 2V AP/LAT LEFT Radiology Routine Osteoarthritis of both knees, unspecified osteoarthritis type 1 Occurrences starting 07/07/2023 until 08/05/2024 [facility] Work Phone: Comment on above: 1 Occurrences starting 07/07/2023 until 08/05/2024 End: 10-09-2024 XR KNEE LIMITED 2V AP/LAT LEFT XR KNEE LIMITED 2V AP/LAT LEFT Radiology Routine Osteoarthritis of both knees, unspecified osteoarthritis type 1 Occurrences starting 09/10/2023 until 10/09/2024 [facility] Work Phone: Comment on above: 1 Occurrences starting 09/10/2023 until 10/09/2024 End: 08-05-2024 XR KNEE LIMITED 2V AP/LAT RIGHT XR KNEE LIMITED 2V AP/LAT RIGHT Radiology Routine Osteoarthritis of both knees, unspecified osteoarthritis type 1 Occurrences starting 07/07/2023 until 08/05/2024 [facility] Work Phone: Comment on above: 1 Occurrences starting 07/07/2023 until 08/05/2024 End: 10-09-2024 XR KNEE LIMITED 2V AP/LAT RIGHT XR KNEE LIMITED 2V AP/LAT RIGHT Radiology Routine Osteoarthritis of both knees, unspecified osteoarthritis type 1 Occurrences starting 09/10/2023 until 10/09/2024 [facility] Work Phone: Comment on above: 1 Occurrences starting 09/10/2023 until 10/09/2024 [facility] Immunizations Immunization Date Immunization Notes Care Provider Janet tony 07-20-1996 influenza nasal, unspecified formulation Gavin Betancur DO Work Phone: [facility] 07-20-1996 influenza virus vacc ine, unspecified formulation Gavin Betancur DO Work Phone: [facility] Payers Date Payer Category Payer Medicaid [id number] 2025 Unknown [id number] 2024 Medicare [facility] MEDICARE Member Subscriber Plan / Payer (Effective 2024-Present) Name: Salma Venkat G Relation to Subscriber: Self Name: Venkat Marsh Payer ID: [id number] (NAIC) Type: Medicare HMO Address: [place] [id number] 2024 Private Health Insurance [id number] 2024 Medicaid [id number] 2024 Private Health Insurance [id number] 2024 Self-pay 2024 Medicare (Managed Care) [id number]. [id number] 2023 Private Health Insurance [id number] 2023 Medicaid [id number] 1998 Medicare [id number] 1998 Medicare [id number] 1963 Unknown [id number] 627 1963 Unknown [id number] 627 1963 Unknown [id number] 627 1963 Unknown [id number] 627 1963 Unknown [id number] 627 Medicare MEDICARE PART A B [id number] Unknown [id number] Unknown VA do not schedu le wout auth [id number] Unknown [id number] 462 Unknown [id number] 462 Unknown [id number] 462 Unknown [id number] 462 Social History Date Type Detail Facility Start: 11-17-2016 End: 05-11-2024 Tobacco smoking status NHIS Smokes tobacco daily [facility] Start: 04-21-2023 History of tobacco use Cigarette Smo ker [facility] Start: 11-17-2016 End: 10-23-2023 Cigarettes smoked current (pack per day) - Reported 0.3 [facility] Work Phone: Start: 07-28-2017 End: 02-22-2025 Alcohol intake Current non-drinker of alcohol (finding) [facility] Start: 1965 Sex Assigned At Not on file [facility] Start: 03-20-2018 End: 10-23-2023 Tobacco use panel [facility] Work Phone: Start: 08-22-2012 Adult Depression Screening Assessment 2 [facility] Work Phone: Start: 06-05-2023 End: 06-26-2023 Tobacco smoking status NHIS Ex-smoker [facility] History of tobacco use Current smoker [facility] Start: 06-26-2023 End: 05-11-2024 Tobacco use and exposure Smokeless tobacco non-user [facility] Sex Assigned At [facility] Has the electric, tinyclues, oil, or water company threatened to shut off services in your home in past 12Mo No [facility] (I/We) worried wheth er (my/our) food would run out before (I/we) got money to buy more. Never true [facility] Start: 09-04-2023 Tobacco smoking stat us ALIS Unknown if ever smoked [facility] Start: 09-03-2023 Occasional [facility] Start: 09-03-2023 None [facility] Start: 09-03-2023 Alone [facility] Start: 09-03-2023 Cigarettes [facility] Start: 1965 Sex Assigned At Male [facility] Start: 10-31-2014 End: 04-21-2022 Sex Male (finding) [facility] How often to you hav e a drink containing alcohol? Never [facility] Medical Equipment Procedure Code Equipment Code Equipment Origin al Text Equipment Identifier Dates Inject 1 Each subcutaneously every 24 hours. Give with each insulin administration. [id number], [id number], [id number], [id number], [id number], [id number], [id number], [id number], [id number] Start: 09-10-2023 End: 11-09-2024 Comment on above: Inject 1 Each subcutaneously every 24 ho urs. Give with each insulin administration. Goals Date Patient Goal Desired Activity /State Personal health goal Functional Status Date Assessment Result Facility 11-09-2024 Functional Status Assistive Device None [facility] 04-15-2024 Are you deaf, or do you have serious difficulty hearing No 04/15/2024 12:05 PM Jessica Horner, RN No [facility] 04-15-2024 Are you blind, or do you have serious difficulty seeing, even when wearing glasses No 04/15/2024 12:05 PM Jessica Horner, SUZAN No [facility] 04-15-2024 Do you have serious difficulty walking or climbing stairs No 04/15/2024 12:05 PM Jessica Horner, RN No [facility] 04-15-2024 Do you have difficul ty dressing or bathing No 04/15/2024 12:05 PM Jessica Horner, RN No [facility] 04-15-2024 Because of a physica l, mental, or emotional condition, do you have difficulty doing errands alone such as visiting a physician's office or shopping No 04/15/2024 12:05 PM Jessica Horner, SUZAN No [facility] 03-29-2024 Functional Status Independent [facility] 03-29-2024 Functional Status ID band on, Allergy Band on, Call device within reach, Bed in low position, Wheels locked, Upper/Half-Length side-rails up, Safety level maintained [facility] 11-28-2023 Functional Status Independent [facility] 11-28-2023 Functional Status ID band on [facility] Mental Status Date Assessment Result Facility 01-05-2025 Cognitive function Level Of Cons ciousness Awake;Alert;Appropriate;Fol lows Commands [facility] Work Phone: 11-09-2024 Mental Status Orientation Oriented x 4 [facility] 11-09-2024 Mental Status [facility] 04-15-2024 Because of a physica l, mental, or emotional condition, do you have serious difficulty concentrating, remembering, or making decisions No 04/15/2024 12:05 PM Jessica Horner, SUZAN No [facility] 03-29-2024 Mental Status Orientation Oriented x 4 [facility] 03-29-2024 Mental Status [facility] 11-28-2023 Mental Status Orientation Oriented x 4 [facility] 11-28-2023 Mental Status [facility] 09-04-2023 Cognitive function Level Of Cons ciousness Awake;Alert;Appropriate;Fol lows Commands [facility] Work Phone: Clinical Notes 03-25-2023 to 05-26-2025 Patient InstructionsOscar Nunez MD - 05/26/2025 11:05 AM EDTTelephone Encounter - Triston Dorinda - 05/10/2025 4:24 PM EDTTelephone Encounter - Malcom, D'Dorcas - 05/10/2025 11:19 AM EDT Note Date & Type Note Facility 05-26-2025 Instructions Oscar Nunez MD - 05/26/2025 11:07 AM EDT [facility] - Urology Department Patient Information: Erectile Dysfunction Causes of Erectile Dysfunction Erectile dysfunction (ED) is the persistent difficulty achieving or maintaining an erection. Causes can include vascular disease (atherosclerosis, high blood pressure), diabetes, nerve disorders, hormonal imbalances (low testosterone), certain medications, psychological conditions (stress, anxiety, depression), and lifestyle factors such as smoking, excessive alcohol, or obesity. Evaluation and Work-Up Evaluation typically begins with a medical history, physical examination, and review of medications. Laboratory tests may include blood glucose, cholesterol, and testosterone levels. In some cases, specialized tests (penile Doppler ultrasound, nocturnal penile tumescence testing) may be recommended. Treatment Options Treatment depends on the underlying cause and patient preferences. Options include: Lifestyle modifications: regular exercise, weight loss, smoking cessation, limiting alcohol, and managing stress. Lifestyle modification alone can restore erections in about 20-40% of men with mild to moderate ED. Even when not fully curative, lifestyle changes enhance the effectiveness of PDE5 inhibitors (like sildenafil). Medications: oral phosphodiesterase type 5 inhibitors (e.g., sildenafil, tadalafil). Effective for about 70%-80% of men Hormone therapy: for men with low testosterone. Devices: vacuum erection devices, penile constriction rings. Effective in up to 90% of men Injections: medications directly into the penis (intracavernosal injections). Effective for about 85-90% of men Intraurethral therapy (MUSE): a tiny suppository of alprostadil is placed inside the urethra to help improve blood flow. Effective in about 65% of men Shockwave therapy: low-intensity shockwaves are used to improve blood vessel health and potentially restore erectile function. Effective in 60-80% of men Surgery: penile implants may be considered in severe or refractory cases. Effective in up to 98% of men Counseling: addressing relationship or psychological concerns. This handout is intended for educational purposes and does not replace medical advice. The stated success rates represent reported success in medical literature and may not reflect your personal experience with a treatment. Please consult your urologist for personalized recommendations Additional Information Risks of oral medications: Common Side Effects: Headache Flushing (redness, warmth) Nasal congestion Indigestion Dizziness Visual changes (e.g. blue-tinted vision, blurred vision) for sildenafil Serious Side Effects: Priapism (painful, prolonged erection) Sudden vision or hearing loss Chest pain or irregular heartbeat Allergic reactions (rash, swelling, difficulty breathing) Risks of injection therapy: Common Side Effects: Pain at the injection site Penile bruising or bleeding Mild penile fibrosis (scar tissue or lumps at injection site) Prolonged erection (erection >4 hours but <6 hours) Serious Side Effects: Priapism (painful erection lasting >4-6 hours; requires emergency care) Penile fibrosis (severe or permanent scarring from repeated injections) Infection (rare, but possible at the injection site) Curvature or deformity of the penis (Peyronie s disease in some cases) documented in this encounter [facility] 05-26-2025 Note HNO ID: [id number] Author: OSCAR NUNEZ MD Service: ? Author Type: Physician Type: Progress Notes Filed: 05/26/2025 11:20 Note Text: [facility] NEW PATIENT CONSULT/HISTORY AND PHYSICAL PATIENT: Venkat Marsh (60 year old) REFERRING PROVIDER: Nikolai Nazario PCP: Nikolai Nazario DO DATE OF SERVICE: 05/26/2025 Consultation requested by Nikolai Nazario for an opinion regarding Venkat Marsh. The patient is a 60-year-old male with insulin-dependent DM, HTN, stage 3a CKD, obesity, HLD, and CAD s/p AR, presenting for evaluation of erectile dysfunction. ---- SUMMARY: ED. Unable to attain Failed tadalafil. Only very mild results with sildenafil 100 mg Numerous risk factors Discussed treatment options Plan lifestyle modifications and trial of a OTILIO with the sildenafil 1. Erectile dysfunction due to diseases classified elsewhere (N52.1) 2. Drug-induced erectile dysfunction (N52.2) Erectile dysfunction likely multifactorial, with contributing factors including diabetes, hypertension, obesity, and metoprolol use. Patient has trialed sildenafil 100 mg with partial effect and tadalafil without benefit. Total testosterone 339 ng/dL on 03/31/2025 is within normal range for age; low testosterone is not suspected as a primary cause. - Advised against increasing sildenafil dose above 100 mg due to safety concerns. - Discussed vacuum erection device as next step; educated on mechanism, use, and high success rate; advised to trial device for one month. - Discussed intracavernosal injection therapy as a potential next step if vacuum device is ineffective. - Advised that surgical options (e.g., penile implant) are available if conservative measures fail, but not indicated at this time. - Patient expressed understanding and agreement with plan. 3. CKD stage G3a/A3, GFR 45-59 and albumin creatinine ratio >300 mg/g ([facility]) (N18.31) Stage 3a CKD with eGFR 45-59 and albumin/creatinine ratio >300 mg/g; contributing factors include diabetes and hypertension. - Advised patient to continue routine monitoring and management with PCP. 4. Type 2 diabetes mellitus with hyperglycemia, with long-term current use of insulin ([facility]) (E11.65) Type 2 diabetes mellitus with hyperglycemia (HbA1c 7.5%) on long-term insulin therapy; suboptimal glycemic control contributing to ED and CKD. - Advised patient to work on improving glycemic control. 5. Obesity, Class III, BMI 40-49.9 (morbid obesity) ([facility]) (E66.813) Morbid obesity (BMI 43) contributing to ED and other comorbidities. - Advised patient to pursue weight loss and increased physical activity. 6. Primary hypertension (I10) Hypertension managed with metoprolol, Lasix, and spironolactone; metoprolol may contribute to ED. - Advised patient to continue antihypertensive therapy as prescribed. 7. Coronary artery disease involving [place] coronary artery of [place] heart without angina pectoris (I25.10) 8. Personal history of AR (myocardial infarction) (I25.2) History of CAD and AR; patient is stable and under ongoing management. - Advised patient to continue routine management with PCP. 9. Tobacco use (Z72.0) Active cigarette smoker; tobacco use is a contributing factor to ED and other comorbidities. - Advised patient on the negative impact of smoking on erectile function and overall health. 10. Hyperlipidemia, unspecified hyperlipidemia type (E78.5) Hyperlipidemia contributing to cardiovascular risk profile. - Advised patient to continue routine management with PCP. --- FOLLOW UP: Return if symptoms worsen or fail to improve. ORDERS: No orders of the defined types were placed in this encounter. ---- HISTORY OF PRESENT ILLNESS: The patient is a 60-year-old male, with a history of DM, HTN, AR, and CKD stage 3a, presenting for evaluation of erectile dysfunction. The patient reports difficulty achieving erections, which he attributes to multiple factors, including weight, diabetes, cigarette smoking, caffeine intake, and antihypertensive medications. He has not engaged in sexual activity with a partner since 2018, following the end of his marriage, but notes that he experiences erectile dysfunction even when viewing pornography. He describes his erections as soft and not fully erect. He has tried sildenafil 100 mg recently, which provided some improvement but did not achieve optimal results. He also tried tadalafil in the past without success. He inquires about the possibility of testosterone replacement therapy, noting (more content not included)... [facility] 05-26-2025 History of Present illness Narrative Images from the original note were not included. [facility] NEW PATIENT CONSULT/HISTORY AND PHYSICAL PATIENT: Venkat Marsh (60 year old) REFERRING PROVIDER: Nikolai Nazario PCP: Nikolai Nazario DO DATE OF SERVICE: 05/26/2025 Consultation requested by Nikolai Nazario for an opinion regarding Venkat Marsh. The patient is a 60-year-old male with insulin-dependent DM, HTN, stage 3a CKD, obesity, HLD, and CAD s/p AR, presenting for evaluation of erectile dysfunction. SUMMARY: ED. Unable to attain Failed tadalafil. Only very mild results with sildenafil 100 mg Numerous risk factors Discussed treatment options Plan lifestyle modifications and trial of a OTILIO with the sildenafil 1. Erectile dysfunction due to diseases classified elsewhere (N52.1) 2. Drug-induced erectile dysfunction (N52.2) Erectile dysfunction likely multifactorial, with contributing factors including diabetes, hypertension, obesity, and metoprolol use. Patient has trialed sildenafil 100 mg with partial effect and tadalafil without benefit. Total testosterone 339 ng/dL on 03/31/2025 is within normal range for age; low testosterone is not suspected as a primary cause. - Advised against increasing sildenafil dose above 100 mg due to safety concerns. - Discussed vacuum erection device as next step; educated on mechanism, use, and high success rate; advised to trial device for one month. - Discussed intracavernosal injection therapy as a potential next step if vacuum device is ineffective. - Advised that surgical options (e.g., penile implant) are available if conservative measures fail, but not indicated at this time. - Patient expressed understanding and agreement with plan. 3. CKD stage G3a/A3, GFR 45-59 and albumin creatinine ratio >300 mg/g ([facility]) (N18.31) Stage 3a CKD with eGFR 45-59 and albumin/creatinine ratio >300 mg/g; contributing factors include diabetes and hypertension. - Advised patient to continue routine monitoring and management with PCP. 4. Type 2 diabetes mellitus with hyperglycemia, with long-term current use of insulin ([facility]) (E11.65) Type 2 diabetes mellitus with hyperglycemia (HbA1c 7.5%) on long-term insulin therapy; suboptimal glycemic control contributing to ED and CKD. - Advised patient to work on improving glycemic control. 5. Obesity, Class III, BMI 40-49.9 (morbid obesity) ([facility]) (E66.813) Morbid obesity (BMI 43) contributing to ED and other comorbidities. - Advised patient to pursue weight loss and increased physical activity. 6. Primary hypertension (I10) Hypertension managed with metoprolol, Lasix, and spironolactone; metoprolol may contribute to ED. - Advised patient to continue antihypertensive therapy as prescribed. 7. Coronary artery disease involving [place] coronary artery of [place] heart without angina pectoris (I25.10) 8. Personal history of AR (myocardial infarction) (I25.2) History of CAD and AR; patient is stable and under ongoing management. - Advised patient to continue routine management with PCP. 9. Tobacco use (Z72.0) Active cigarette smoker; tobacco use is a contributing factor to ED and other comorbidities. - Advised patient on the negative impact of smoking on erectile function and overall health. 10. Hyperlipidemia, unspecified hyperlipidemia type (E78.5) Hyperlipidemia contributing to cardiovascular risk profile. - Advised patient to continue routine management with PCP. FOLLOW UP: Return if symptoms worsen or fail to improve. ORDERS: No orders of the defined types were placed in this encounter. HISTORY OF PRESENT ILLNESS: The patient is a 60-year-old male, with a history of DM, HTN, AR, and CKD stage 3a, presenting for evaluation of erectile dysfunction. The patient reports difficulty achieving erections, which he attributes to multiple factors, including weight, diabetes, cigarette smoking, caffeine intake, and antihypertensive medications. He has not engaged in sexual activity with a partner since 2018, following the end of his marriage, but notes that he experiences erectile dysfunction even when viewing pornography. He describes his erections as soft and not fully erect. He has tried sildenafil 100 mg recently, which provided some improvement but did not achieve optimal results. He also tried tadalafil in the past without success. He inquires about the possibility of testosterone replacement therapy, noting a testosterone level of 339 ng/dL on 03/31/2025. The patient also reports frequent urination, which he attributes to both his diabetes and the use of Lasix. He denies any pain or discomfort in the genital area. He is currently taking metoprolol, Lasix, and spironolactone for HTN. He has a BMI of 43 and is a cigarette smoker. He has a history of AR and is currently managing CKD stage 3a. His most recent lipid panel shows hypercholesterolemia, and his hemoglobin A1c is 7.5%. His PSA was 1.55 in 2022. I personally reviewed the past medical records received from the referring provider (if present). REVIEW OF SYSTEMS: Genitourinary: (+) erectile dysfunction, (+) urinary frequency, (-) penile pain All other systems negative unless described above. ALLERGIES: ALLERGIES Allergen Reactions Amoxicillin-Pot Cla* Anaphylaxis, Swelling Doxycycline Unknown Lisinopril Cough Sulfamethoxazole-Tr* Rash, Hives, Swelling Trimethoprim Swelling MEDICATIONS: sildenafil (VIAGRA) 100 mg tablet Take 1 tablet by mouth once daily as needed. traZODone (DESYREL) 100 mg tablet Take 1 tablet by mouth at bedtime as needed (sleep). Okay to take one-half of a tablet if feeling too sedated in the morning. mirtazapine (REMERON) 15 mg tablet Take 1.5 tablets by mouth daily at bedtime. dulaglutide (TRULICITY) 4.5 mg/0.5 mL pen injector Inject 4.5 mg subcutaneously one time a week. evolocumab 140 mg/mL subcutaneous pen injector (REPATHA SURECLICK) Inject 140 mg subcutaneously every 2 weeks. albuterol HFA (PROVENTIL HFA, VENTOLIN HFA) 90 mcg/actuation inhaler Inhale 2 puffs as instructed every 4 hours as needed for wheezing/shortness of breath. metFORMIN (GLUCOPHAGE) 1,000 mg tablet Take 1 tablet by mouth two times a day. levothyroxine (SYNTHROID) 125 mcg tablet Take 1 tablet by mouth daily before breakfast. insulin glargine 100 unit/mL (3 mL) Inject 20 Units subcutaneously daily at bedtime. metoprolol succinate ER (TOPROL XL) 25 mg 24 hr tablet Take 1 tablet by mouth once daily. spironolactone (ALDACTONE) 25 mg tablet Take 25 [...] mouth three times a day as needed. ezetimibe (ZETIA) 10 mg tablet Take 1 tablet by mouth once daily. fluticasone (FLONASE) 50 mcg/actuation nasal spray Use 1 spray in each nostril daily at bedtime. aspirin, enteric coated (ASPIRIN, ENTERIC COATED) 81 mg EC tablet Take 1 tablet by mouth once daily. magnesium, aluminum hydroxide (MYLANTA ORAL) Take 5 mL by mouth two times a day as needed (heartburn). PAST HISTORY: PAST MEDICAL HISTORY Diagnosis Date Acute congestive heart failure, unspecified heart failure type ([facility]) Bipolar 1 disorder ([facility]) psychiatry in [place] CAD S/P percutaneous coronary angioplasty 2011 AR PCI to LAD in 2011. Dr. Ponce CHF (congestive heart failure) ([facility]) Diabetes mellitus ([facility]) History of acute myocardial infarction HTN (hypertension) Hypercholesteremia Hypothyroidism Morbid obesity with BMI of 45.0-49.9, adult ([facility]) Non-compliant patient ELBERT (obstructive sleep apnea) Tobacco use disorder PAST SURGICAL HISTORY Procedure Laterality Date ANGIOPLASTY 2011 [facility] STENT, PCI to LAD COLONOSCOPY 2009 [facility] ARTHROSCOPY/SURGERY 2000 loose body removal lt HAND SURGERY HX Left 2022 KNEE ARTHROSCOPY/SURGERY 1984 loose body removal lt OSTEOTOMY FIBULA Left 1980 PAST SURGICAL HISTORY OF 1988 Rt wrist bone graft PAST SURGICAL HISTORY OF R navicular REPAIR INGUINAL HERNIA 1986 REPAIR NASAL SEPTUM DEFECT 1996 THYROIDECTOMY SUBTOTAL/PARTIAL Right 08/2008 TONSILLECTOMY PRIMARY/SECONDARY <AGE 10 Tonsillectomy FAMILY HISTORY Problem Relation Age of Onset Cancer Mother uterine No Known Problems Brother other (depression) Maternal Grandmother SOCIAL HISTORY[1] PHYSICAL EXAMINATION: There were no vitals taken for this visit. Verbal informed consent obtained for exam below. Optical Store Manager provided (if requested): Genitourinary: Partial buried penis. circumcised. Normal meatus. Bilateral descended testes with no masses or lesions. No skin changes. No hernias. No lymphadenopathy Constitutional: In no acute distress. Respiratory: Normal respiratory effort without use of accessory muscles. Musculoskeletal: Ambulating without issue Cardiovascular: Regular rate Gastrointestinal: Nondistended DATA: Clinic: URINALYSIS: GLUCOSE UA (POCT) >=1000 08/31/2023 BILIRUBIN UA (POCT) Negative 08/31/2023 KETONE UA (POCT) Negative 08/31/2023 SPECIFIC GRAVITY UA (POCT) 1.010 08/31/2023 HEMOGLOBIN/BLOOD UA (POCT) Trace-intact 08/31/2023 PH UA (POCT) 7.0 08/31/2023 PROTEIN UA (POCT) Negative 08/31/2023 UROBILINOGEN UA (POCT) 0.2 08/31/2023 NITRITE UA (POCT) Negative 08/31/2023 LEUKOCYTES UA (POCT) Negative 08/31/2023 COLOR UA (POCT) Yellow 08/31/2023 CLARITY UA (POCT) Clear 08/31/2023 Laboratory: Creatinine Date Value Ref Range Status 03/31/2025 1.38 (H) 0.73 - 1.22 mg/dL Final 11/01/2024 1.32 (H) 0.73 - 1.22 mg/dL Final 06/02/2024 1.20 0.73 - 1.22 mg/dL Final 04/15/2024 1.48 (H) 0.73 - 1.22 mg/dL Final Cultures: No data to display Susceptibility Tests - Past 1 Year No results found for the last 365 days. PSA: PSA Screening (ng/mL) Date Value 03/25/2023 1.55 Labs: - (03/31/2025) Serum Testosterone: 339 - (2022) PSA: 1.55 - Lipid panel: Hypercholesterolemia - Hemoglobin A1c: 7.5 - Creatinine: 1.83 DISCUSSIONS: We discussed your concerns about erectile dysfunction: - You are currently taking sildenafil (generic Viagra) 100 mg as needed. Please do not exceed this dose, as higher doses are not recommended. - Your erectile dysfunction is likely influenced by multiple factors, including diabetes, high blood pressure, weight, and smoking. These conditions can affect blood flow, which is essential for erections. - Your testosterone level of 339 is within an acceptable range and is not likely contributing to your symptoms. - I recommend trying a vacuum assist device (penis pump) as the next step. These devices are available online (e.g., Triggertrap) without a prescription and typically cost $100-200. They have a success rate of over 80% and can be used alone or in combination with sildenafil. - If the vacuum device does not work after about a month of use, please call me to discuss the next steps, which may include penile self-injection therapy. We discussed lifestyle changes to improve your overall health and erectile function: - Weight loss and better blood sugar control can help improve your symptoms over time. Please consider making dietary changes, increasing physical activity, and reducing sedentary behaviors. - Smoking cessation is strongly recommended, as smoking negatively impacts blood flow and can worsen erectile dysfunction. Next steps: - Research and purchase a vacuum assist device that fits your needs and budget. - Use the device as directed for about a month and monitor your results. - Call our office if the vacuum device is not effective, and we can discuss further treatment options. Please let me know if you have any questions or concerns. Risks, benefits, and alternatives of the new medical therapy were discussed. Patient acknowledges understanding and consents to proceed. Recording using [employer] software for draft documentation of the visit was discussed with the patient/authorized bank representative; all questions welcomed and answered. Patient/authorized bank representative agreed to proceed I have reviewed the problem list, family history, and social history documented by my ancillary staff. Oscar Nunez MD Staff Urologist Office [1] Social History Tobacco Use Smoking status: Every Day Current packs/day: 0.50 Average packs/day: 0.5 packs/day for 41.1 years (20.5 ttl pk-yrs) Types: Cigarettes Start date: 04/21/2023 Smokeless tobacco: Never Vaping Use Vaping status: Never Used Substance Use Topics Alcohol use: No Drug use: No documented in this encounter [facility] 05-10-2025 Telephone encounter Note Patient called in to ask if Dr. Nazario can resend his prescription with the Generic option. Patient states that the medication that was sent over is costing him 100$ a pill. Dorinda Triston, Assistant Hall Director May 10, 2025 4:25 PM [facility] 05-10-2025 Miscellaneous Notes Patient called in to ask if Dr. Nazario can resend his prescription with the Generic option. Patient states that the medication that was sent over is costing him 100$ a pill. Rudi Talbot May 10, 2025 4:25 PM Patient called in requesting a prescription for brand name Viagra 100 mg 10 tablets. Patient states he is willing to pay for them out of pocket as be does not believe his insurance will cover them. Rudi Wisdom May 10, 2025 11:21 AM documented in this encounter [facility] 05-10-2025 Telephone encounter Note Patient called in requesting a prescription for brand name Viagra 100 mg 10 tablets. Patient states he is willing to pay for them out of pocket as be does not believe his insurance will cover them. Rudi Wisdom May 10, 2025 11:21 AM [facility] 2025 Telephone encounter Note Spoke with Patient, he confirms he has received the letter in his chart. Dorinda Goldstein Assistant Hall Director 2025 4:11 PM [facility] 2025 Miscellaneous Notes Spoke with Patient, he confirms he has received the letter in his chart. Rudi Talbot 2025 4:11 PM There is a letter in his chart for him. documented in this encounter [facility] 2025 Telephone encounter Note There is a letter in his chart for him. [facility] 04-27-2025 Note HNO ID: [id number] Author: PARTHA LOPEZ CPhT Service: ? Author Type: Newspaper Deliverer Type: Progress Notes Filed: 04/27/2025 10:30 Note Text: Patient is identified through a medication adherence outreach initiative based on pharmacy claims data from: [employer] Medication Adherence Category: Statins First Review Attribution Status: Correct attribution Medication(s) Rosuvastatin 10 mg Medication Status per portal/Epic Reconcile Dispense: Not filled Medication Status per Profile Review: Provider discontinued Is medication on [facility] med list? No, Call pharmacy to discontinue prescription. Patient/provider appropriate for outreach? No Reason patient/provider not appropriate for outreach:d/c'd 04/26/2025 Partha Lopez CPhT [facility] Team [facility] 04-27-2025 Note Patient Outreach ([facility]) VENKAT MARSH ([id number]) 1965 M Date Time Provider Department 04/27/[facility] your visit today, we recorded the following information about you: Partha Lopez CPhT 04/27/2025 10:30 AM Signed Patient is identified through a medication adherence outreach initiative based on pharmacy claims data from: [employer] Medication Adherence Category: Statins First Review Attribution Status: Correct attribution Medication(s) Rosuvastatin 10 mg Medication Status per portal/Epic Reconcile Dispense: Not filled Medication Status per Profile Review: Provider discontinued Is medication on Epic med list? No, Call pharmacy to discontinue prescription. Patient/provider appropriate for outreach? No Reason patient/provider not appropriate for outreach:d/c'd 04/26/2025 Partha Lopez CPhT [facility] Pharm[facility] Team Allergies As of Date: 04/27/2025 Noted Allergy Reaction AMOXICILLIN-POT CLAVULANATE 12/23/2023 10 - Anaphylaxis 7 - Swelling DOXYCYCLINE 11/09/2024 16 - Unknown LISINOPRIL 04/24/2023 3 - Cough SULFAMETHOXAZOLE-TRIMETHOPRIM 10/20/2009 2 - Rash 4 - Hives 7 - Swelling TRIMETHOPRIM 09/04/2023 7 - Swelling Date Reviewed: 04/26/2025 Reviewed by: Nikolai Nazario DO - Fully Assessed Reason for Visit: Allied Health Visit [5] Cmt: Medication Adherence Outreach Prescriptions as of 04/27/2025 - traZODone (DESYREL) 100 mg tablet Take 1 tablet by mouth at bedtime as needed (sleep). Okay to take one-half of a tablet if feeling too sedated in the morning. - mirtazapine (REMERON) 15 mg tablet Take 1.5 tablets by mouth daily at bedtime. - dulaglutide (TRULICITY) 4.5 mg/0.5 mL pen injector Inject 4.5 mg subcutaneously one time a week. - cefUROXime (CEFTIN) 500 mg tablet Take 1 tablet by mouth two times a day for 5 days. - azithromycin (ZITHROMAX) 250 mg tablet Take 2 tablets by mouth once daily for 1 day, THEN 1 tablet once daily for 4 days. - evolocumab 140 mg/mL subcutaneous pen injector (REPATHA SURECLICK) Inject 140 mg subcutaneously every 2 weeks. - albuterol HFA (PROVENTIL HFA, VENTOLIN HFA) [...] 1 tablet by mouth once daily. - spironolactone (ALDACTONE) 25 mg tablet Take [...] three times a day as needed. - ezetimibe (ZETIA) 10 mg tablet Take 1 tablet by mouth once daily. - fluticasone (FLONASE) 50 mcg/actuation nasal spray Use 1 spray in each nostril daily at bedtime. - aspirin, enteric coated (ASPIRIN, ENTERIC COATED) 81 mg EC tablet Take 1 tablet by mouth once daily. - magnesium, aluminum hydroxide (MYLANTA ORAL) Take 5 mL by mouth two times a day as needed (heartburn). Meds Comments as of 10/23/2023: 10/23/23 The medications are managed by this patient by: PATIENT OPHELIA Crooks Problem List As Of Date 04/27/2025 Noted Resolved CAD (coronary artery disease) [I25.10] [...] of both eyes [H52.4] 10/23/2023 Mood disorder [F39] 11/02/2023 04/26/2025 Acute systolic HF (heart failure) (HCC) [I50.21]04/13/2024 01/19/2025 Acute on chronic systolic (congestive) heart fa*more content not included)... [facility] 04-26-2025 Note HNO ID: [id number] Author: NIKOLAI NAZARIO DO Service: ? Author Type: Physician Type: Progress Notes Filed: 04/26/2025 15:36 Note Text: Nikolai Nazario DO Board Certified Internal Medicine, Lipidology, Metabolic Medicine and Lifestyle Medicine [facility] Recording using [employer] software for draft documentation of the visit was discussed with the patient/authorized bank representative; all questions welcomed and answered. Patient/authorized bank representative agreed to proceed Date of Evaluation: 04/26/2025 Patient Name: Venkat Marsh : 1965 AGE: [age] year old Race: White Sex: male ASSESSMENT/PLAN: 1. Hypercholesteremia - ICD9: 272.0, ICD10: E78.00 (primary diagnosis) - Continue with Repatha and recheck lipids at next OV 2. Mood disorder - ICD9: 296.90, ICD10: F39 - Controlled - Continue current medications 3. Insomnia, unspecified type - ICD9: 780.52, ICD10: G47.00 - TRAZODONE 100 MG TABLET 4. Anxiety - ICD9: 300.00, ICD10: F41.9 - Controlled - Continue current medications 5. Type 2 diabetes mellitus with diabetic microalbuminuria, with long-term current use of insulin (HCC) - ICD9: 250.40, 791.0, V58.67, ICD10: E11.29, R80.9, Z79.4 - Continue current medications - Counseled on healthy diet and regular exercise - Discussed need for and benefit of weight loss. BMI 43.23 kg/(m2) - Smoking cessation encouraged; discussed risks to health and quitting strategies. Patient is contemplative - DULAGLUTIDE 4.5 MG/0.5 ML SUBCUTANEOUS PEN INJECTOR 6. Hypothyroidism, unspecified type - ICD9: 244.9, ICD10: E03.9 - Instructed patient on importance of taking on an empty stomach either first thing in the morning or at bedtime. - continue current dose of Synthroid 7. Bipolar 1 disorder (HCC) - ICD9: 296.7, ICD10: F31.9 - MIRTAZAPINE 15 MG TABLET 8. Elevated lipoprotein(a) - ICD9: 272.8, ICD10: E78.41 - Continue with Repatha and recheck lipids at next OV 9. CKD stage G3a/A3, GFR 45-59 and albumin creatinine ratio >300 mg/g (HCC) - ICD9: 585.3, ICD10: N18.31 - eGFR: 58 Worsening - Albuminuria: 299 - Counseled on avoiding NSAIDs, adequate hydration - Counseled on low sodium diet - Follow up with kidney medicine - CONSULT TO NEPHROLOGY 10. Cigarette smoker - ICD9: 305.1, ICD10: F17.210 - Cessation encouraged. - Physiologic and physical aspects of tobacco addiction as well as strategies for quitting were discussed. - Counseling was given focusing on the harmful effects of this addiction especially given the patient's medical condition(s) which will be worsened because of the chemicals in tobacco. 11. type 2 diabetes mellitus with hyperglycemia (HCC) - ICD9: 250.02, ICD10: E11.65 12. Primary hypertension - ICD9: 401.9, ICD10: I10 - Controlled - Continue current medications - Recommend home blood pressure monitoring, to bring results to next visit - Encouraged sodium restriction, DASH or Mediterranean diet - Recommend regular aerobic exercise 13. Coronary artery disease involving [place] coronary artery of [place] heart without angina pectoris - ICD9: 414.01, ICD10: I25.10 - Continue with aggressive control of risk factors 14. BMI 40.0-44.9, adult (HCC) - ICD9: V85.41, ICD10: Z68.41 Weight decreasing - Increase strength of GLP1 RA 15. Screening for diabetic retinopathy - ICD9: V80.2, ICD10: Z13.5 - CONSULT TO OPHTHALMOLOGY 16. Acute cough - ICD9: 786.2, ICD10: R05.1 - Suspect developing CAP - XR CHEST 2V FRONTAL/LAT - CEFUROXIME AXETIL 500 MG TABLET - AZITHROMYCIN 250 MG TABLET 17. ELBERT (obstructive sleep apnea) - ICD9: 327.23, ICD10: G47.33 - HOME SLEEP APNEA TEST (HSAT) Return in about 4 months (around 08/26/2025). Discussed the above with the patient using shared decision making. The patient is in agreement with the diagnostic and treatment plans. Patient to follow-up as advised or sooner if problem worsens or does not resolve. Nikolai Nazario, DO Subjective Venkat Marsh is a 59-year-old male with a history of ELBERT, DM, and CAD, presenting with chest tightness and requesting medication refills. Venkat reports experiencing chest tightness over the past 2 days, described as a sensation of a pulled muscle localized to the left side near the third rib. The tightness is exacerbated by inhalation and is not present during exhalation. He denies dyspnea, but notes a mild cough without sputum production. He questions whether the chest tightness could be related to coughing or sneezing, but does not believe it feels like a muscle strain. He also mentions a recent Repatha injection and wonders if it could be a side effect. He denies any recent trauma or injury. Venkat has a history of ELBERT diagnosed 20-30 years ago at [facility], but has not used a CPAP machine in many years. He expresses willingness to undergo a repeat sleep study if covered by insurance. He is a curr (more content not included)... [facility] 04-18-2025 Telephone encounter Note Patient d/c medication on 01/19/2025. Called him and made him aware. He wasn't aware of what it even was for. Frieda Garza, Assistant Hall Director April 18, 2025 11:28 AM [facility] 04-18-2025 Miscellaneous Notes Patient d/c medication on 01/19/2025. Called him and made him aware. He wasn't aware of what it even was for. Frieda Garza, Assistant Hall Director April 18, 2025 11:28 AM Last Office Visit Date: 01/19/2025 Last Distance Health Visit: 04/19/2024 Has the patient had an appointment at [facility] in the past year, or do they have an upcoming appointment scheduled at [facility]? YES- Continue with refill request. Future Appointment: 04/26/2025 Patient called requesting the following refill Refill(s) Requested: Requested Prescriptions Pending Prescriptions Disp Refills amLODIPine (NORVASC) 2.5 mg tablet 90 tablet Sig: Take 1 tablet by mouth once daily. ALLERGIES Allergen Reactions Amoxicillin-Pot Cla* Anaphylaxis, Swelling Doxycycline Unknown Lisinopril Cough Sulfamethoxazole-Tr* Rash, Hives, Swelling Trimethoprim Swelling (home) [phone] (cell) The patients preferred pharmacy has been captured for this encounter? yes Request is for script(s) to be escript to pharmacy. Bakari Dumont documented in this encounter [facility] 04-18-2025 Telephone encounter Note Last Office Visit Date: 01/19/2025 Last Distance Health Visit: 04/19/2024 Has the patient had an appointment at [facility] in the past year, or do they have an upcoming appointment scheduled at [facility]? YES- Continue with refill request. Future Appointment: 04/26/2025 Patient called requesting the following refill Refill(s) Requested: Requested Prescriptions Pending Prescriptions Disp Refills amLODIPine (NORVASC) 2.5 mg tablet 90 tablet Sig: Take 1 tablet by mouth once daily. ALLERGIES Allergen Reactions Amoxicillin-Pot Cla* Anaphylaxis, Swelling Doxycycline Unknown Lisinopril Cough Sulfamethoxazole-Tr* Rash, Hives, Swelling Trimethoprim Swelling (home) [phone] (cell) The patients preferred pharmacy has been captured for this encounter? yes Request is for script(s) to be escript to pharmacy. Bakari Dumont [facility] 04-13-2025 Telephone encounter Note Received message from [employer] stating Annabel booker has been approved; authorization good until 09/20/2025. Sandra Abbasi LPN [facility] 04-13-2025 Miscellaneous Notes Received message from [employer] stating Annabel booker has been approved; authorization good until 09/20/2025. Sandra Abbasi LPN documented in this encounter [facility] 04-13-2025 Telephone encounter Note Ambulatory Pharmacy Prior Authorization Note Provider Intervention Required?: No - Pharmacy completed on your behalf. Was the PA documented within the ePA workqueue?: Yes Drug: ANNABEL View the status history of the prior authorization in the Auth Tab within Chart Review Additional Information: See Auth Tab under chart review for more details. For questions relating to this submission, please contact [facility] at [phone] [facility] Work Phone: 04-13-2025 Miscellaneous Notes Ambulatory Pharmacy Prior Authorization Note Provider Intervention Required?: No - Pharmacy completed on your behalf. Was the PA documented within the ePA workqueue?: Yes Drug: REPATHA View the status history of the prior authorization in the Auth Tab within Chart Review Additional Information: See Auth Tab under chart review for more details. For questions relating to this submission, please contact [facility] at [phone] documented in this encounter [facility] 04-11-2025 Instructions Natali Alberts MD - 04/11/2025 3:49 PM EDT We discussed your ischemic heart disease and cholesterol management: - Your heart function has improved from an ejection fraction (EF) of 20% to 35% over the past year. This is a positive trend, and we will continue monitoring it. - You will start Repatha (an injectable cholesterol-lowering medication) to better control your LDL cholesterol, which is currently 120 and should be closer to 60. This medication is administered as a shot under the skin twice a month. it is 140 mg syringe. The prescription has been sent to the [facility], and they will contact you regarding approval and delivery. - We will recheck your cholesterol levels in 3 months to assess the effectiveness of Repatha. do this after an overnight fast - Please notify me if you experience any side effects or have concerns about this medication. We discussed your smoking and its impact on your health: - It is very important that you stop smoking, as it significantly increases your risk of heart disease, lung cancer, and other health issues. - Consider using nicotine patches, gum, or other smoking cessation aids available at the pharmacy. Please let me know if you need additional support to quit. You can call 1 800 quit NOW We discussed your weight and sleep apnea: - You have lost some weight, which is a good start. Please continue working on weight loss, as it will help improve your overall health and reduce strain on your heart. - You have sleep apnea but are not currently using a CPAP machine. I recommend discussing this with your family doctor, as untreated sleep apnea can contribute to your high blood count and other health issues. We discussed your erectile dysfunction (ED): - ED may be related to your heart condition, medications, smoking, or weight. you had noted that the drugs like Cialis and Viagra were not effective - If you wish to pursue treatment, I recommend seeing a urologist for further evaluation and management. We discussed your travel plans to the [facility]: - You are cleared to travel from a heart standpoint. However, during your flight, be mindful of the risk of leg swelling. Try to stand up and move around periodically during the flight to improve circulation. Follow-up plan: - We will repeat your echocardiogram next year before your annual visit. - Please contact me sooner if you experience chest pain, worsening shortness of breath, fainting, or any other concerning symptoms. - Your next appointment with me will be a in about a year Thank you for coming in today. Safe travels to the [facility]! documented in this encounter [facility] 04-11-2025 History of Present illness Narrative Chief Complaint No chief complaint on file. History of Present Illness: Venkat Marsh is a 59-year-old male with a history of ischemic heart disease, prior PCI to the LAD, T2DM, hypertension, hyperlipidemia, sleep apnea, morbid obesity (BMI 45), and bipolar disorder, presenting for follow-up. The patient reports dyspnea, which he attributes to ongoing tobacco use. He denies experiencing angina, palpitations, syncope, or significant lower extremity edema, though he notes mild swelling after prolonged sitting or driving. He does not use nitroglycerin. He reports erectile dysfunction and a low energy level. He has tried sildenafil without success and inquires about testosterone therapy, noting a recent testosterone level of 339 ng/dL. He has not been taking his cholesterol medications due to severe cramps associated with statins. He is unsure if he is currently taking Zetia. He has a history of smoking and continues to smoke, despite previous claims of cessation. He denies alcohol use. He plans to travel to the [facility] from October 31 to November 28 and expresses a desire for a good bill of health before his trip. He is currently taking his prescribed cardiac medications, except for the cholesterol medications. PAST MEDICAL HISTORY Diagnosis Date Acute congestive heart failure, unspecified heart failure type (HCC) Bipolar 1 disorder (HCC) psychiatry in [place] CAD S/P percutaneous coronary angioplasty 2012 AR PCI to LAD in 2012. Dr. Ponce CHF (congestive heart failure) ([facility]) Diabetes mellitus ([facility]) History of acute myocardial infarction HTN (hypertension) Hypercholesteremia Hypothyroidism Morbid obesity with BMI of 45.0-49.9, adult ([facility]) Non-compliant patient ELBERT (obstructive sleep apnea) Tobacco [...] Right 08/2008 TONSILLECTOMY PRIMARY/SECONDARY <AGE 10 Tonsillectomy FAMILY HISTORY Problem Relation Age of Onset Cancer Mother uterine No Known Problems Brother other (depression) Maternal Grandmother Social History Tobacco Use Smoking status: Every Day Current packs/day: 0.50 Average packs/day: 0.5 packs/day for 41.0 years (20.5 ttl pk-yrs) Types: Cigarettes Start date: 04/21/2023 Smokeless tobacco: Never Vaping Use Vaping status: Never Used Substance Use Topics Alcohol use: No Drug use: No ALLERGIES Allergen Reactions Amoxicillin-Pot Cla* Anaphylaxis, Swelling Doxycycline Unknown Lisinopril Cough Sulfamethoxazole-Tr* Rash, Hives, Swelling Trimethoprim Swelling Medications: Current Outpatient Medications Medication Sig Dispense Refill dulaglutide (TRULICITY) 3 mg/0.5 mL pen injector Inject 3 mg subcutaneously one time a week. 2 mL 2 albuterol HFA (PROVENTIL HFA, VENTOLIN HFA) 90 mcg/actuation inhaler Inhale 2 puffs as instructed every 4 hours as needed for wheezing/shortness of breath. 1 each 3 metFORMIN (GLUCOPHAGE) 1,000 mg tablet Take 1 tablet by mouth two times a day. 180 tablet 3 levothyroxine (SYNTHROID) 125 mcg tablet Take 1 tablet by mouth daily before breakfast. 90 tablet 3 insulin glargine 100 unit/mL (3 mL) Inject 20 Units subcutaneously daily at bedtime. 18 mL 3 metoprolol succinate ER (TOPROL XL) 25 mg 24 hr tablet Take 1 tablet by mouth once daily. 90 tablet 3 mirtazapine (REMERON) 15 mg tablet Take 1.5 tablets by mouth daily at bedtime. 45 tablet 3 traZODone (DESYREL) 100 mg tablet Take 1 tablet by mouth at bedtime as needed (sleep). Okay to take one-half of a tablet if feeling too sedated in the morning. 30 tablet 2 spironolactone (ALDACTONE) 25 mg tablet Take 25 [...] mouth three times a day as needed. rosuvastatin (CRESTOR) 10 mg tablet Take 1 tablet by mouth one time a week. 12 tablet 3 ezetimibe (ZETIA) 10 mg tablet Take 1 tablet by mouth once daily. 90 tablet 3 fluticasone (FLONASE) 50 mcg/actuation nasal spray Use 1 spray in each nostril daily at bedtime. 3 each 3 nicotine (NICODERM CQ) 21 mg/24 hr Apply 1 patch as directed every 24 hours. 30 patch 2 nicotine polacrilex (NICORETTE) 4 mg gum Take 1 each by mouth as needed. 100 each 3 predniSONE (DELTASONE) 20 mg tablet Take 40 mg by mouth once daily. aspirin, enteric coated (ASPIRIN, ENTERIC COATED) 81 mg EC tablet Take 1 tablet by mouth once daily. BD SAFETYGLIDE INSULIN SYRINGE 0.5 mL 30 gauge x 5/16 syrg Inject 1 Each subcutaneously every 24 hours. Give with each insulin administration. Insulin [place], Disposable, (PEN NEEDLE) 32 gauge x 5/32 Inject 1 Each subcutaneously every 24 hours. Give with each insulin administration. 100 Each 1 magnesium, aluminum hydroxide (MYLANTA ORAL) Take 5 mL by mouth two times a day as needed (heartburn). No current facility-administered medications for this visit. ROS Physical Examination: Vitals: BP 105/79 (BP Site: Left Arm, BP Position: Sitting, BP Cuff Size: Large Adult) Pulse 90 Wt 280 lb (127 kg) SpO2 96% BMI 43.85 kg/m Last 2 Encounter Wt Readings: Date: Wt: 02/22/2025 288 lb (130.6 kg) 01/19/2025 280 lb (127 kg) Physical Exam Vitals reviewed. Constitutional: General: He is not in acute distress. Appearance: He is not diaphoretic. Comments: Severely obese gentleman very pleasant HENT: Head: Normocephalic. Eyes: Comments: Eyelids appear normal Neck: Vascular: No carotid bruit. Comments: Could not assess for JVD or thyromegaly Cardiovascular: Rate and Rhythm: Regular rhythm. Pulses: Carotid pulses are 2+ on the right side and 2+ on the left side. Radial pulses are 2+ on the right side and 2+ on the left side. Posterior tibial pulses are 1+ on the right side and 1+ on the left side. Heart sounds: Heart sounds are distant. No murmur heard. No friction rub. No gallop. Comments: No RV lift apex nonpalpable very limited exam Pulmonary: Effort: Prolonged expiration present. No accessory muscle usage or respiratory distress. Breath sounds: Decreased air movement present. No stridor. No wheezing or rales. Abdominal: Palpations: Abdomen is soft. Tenderness: There is no abdominal tenderness. There is no guarding or rebound. Comments: Severely obese could not assess for hepatomegaly Musculoskeletal: General: No deformity. Cervical back: Normal range of motion. Right lower le+ Edema present. Left lower le+ Edema present. Skin: General: Skin is warm and dry. Coloration: Skin is not cyanotic. Findings: No rash. Neurological: Mental Status: He is alert. Comments: Follows commands moves all extremities Psychiatric: Mood and Affect: Affect normal. Mood is anxious. Pertinent Labs: CBC: Hemoglobin (g/dL) Date Value 03/31/2025 18.7 08/24/2014 17.1 Hematocrit (%) Date Value 03/31/2025 55.4 08/24/2014 49.8 WBC (k/uL) Date Value 03/31/2025 9.01 08/24/2014 11.50 Platelet Count (k/uL) Date Value 03/31/2025 223 08/24/2014 226 BMP: Glucose (mg/dL) Date Value 03/31/2025 101 08/24/2014 99 Potassium (mmol/L) Date Value 03/31/2025 4.7 08/24/2014 3.7 Sodium (mmol/L) Date Value 03/31/2025 139 08/24/2014 140 Chloride (mmol/L) Date Value 03/31/2025 101 08/24/2014 102 CO2 (mmol/L) Date Value 03/31/2025 23 08/24/2014 26 Creatinine (mg/dL) Date Value 03/31/2025 1.38 08/24/2014 1.34 BUN (mg/dL) Date Value 03/31/2025 11 08/24/2014 21 Anion Gap (mmol/L) Date Value 03/31/2025 15 08/24/2014 12 Calcium (mg/dL) Date Value 08/24/2014 9.3 Calcium, Total (mg/dL) Date Value 03/31/2025 10.0 INR: TSH: No results found for: TSHREFL Lipid Profile: Total Cholesterol, Nonfasting Date Value Ref Range Status 03/31/2025 195 <200 mg/dL Final Comment: <200 mg/dL, Desirable 200-239 mg/dL, Borderline high >239 mg/dL, High HDL Cholesterol, Nonfasting Date Value Ref Range Status 03/31/2025 43 >39 mg/dL Final Comment: 40-59 mg/dL, Acceptable >59 mg/dL, High: Negative risk factor for coronary heart disease <40 mg/dL, Low: Positive risk factor for coronary heart disease LDL Cholesterol Calculated, Nonfasting Date Value Ref Range Status 03/31/2025 122 (H) <100 mg/dL Final Comment: <100 mg/dL, Optimal 100-129 mg/dL, Near optimal/above optimal 130-159 mg/dL, Borderline high 160-189 mg/dL, High >189 mg/dL, Very high Secondary prevention optimal LDL Cholesterol levels are recommended to be <70 mg/dL LDL cholesterol is calculated using the Bergeron-NIH equation. Triglycerides, Nonfasting Date Value Ref Range Status 03/31/2025 171 (H) <150 mg/dL Final Comment: <150 mg/dL, Normal 150-199 mg/dL, Borderline high 200-499 mg/dL, High >499 mg/dL, Very high Hemoglobin A1C: No results found for: HGBA1C Most Recent Cardiac Testing Assessment and Plan: 1. Coronary artery disease involving [place] coronary artery of [place] heart without angina pectoris (I25.10) Status post insertion of drug-eluting stent into left anterior descending artery for coronary artery disease (Z95.5) History of ischemic heart disease with prior PCI to the LAD and RCA. Recent heart catheterization showed patent stents with no obstructive disease. No current angina or chest pain reported. He remains on aspirin - Continue current cardiac medications. - Monitor for any signs of angina or chest pain and report immediately. 2. Primary hypertension (I10) reasonable blood pressure control with goal 130/80 or lower most of the time Blood pressure management is ongoing. Continue current antihypertensive medications. 3. Mixed hyperlipidemia (E78.2) Patient reports intolerance to statins due to severe cramps. LDL currently at 122 mg/dL, which is above the target of 60 mg/dL. - Initiate Repatha (evolocumab) injections bi-monthly. 140 mg twice a month - Re-evaluate lipid profile in 3 months. 4. Diabetes mellitus, non-insulin dependent (NIDDM or type II) ([facility]) (E11.9) Ongoing management. He is on an ARB and the Entresto Continue current diabetic management regimen. 5. Bipolar 1 disorder ([facility]) (F31.9) Stable. Continue current psychiatric medications. 6. Morbid obesity ([facility]) (E66.01) BMI 43.8. Recent weight loss noted. - Encourage continued weight loss. - Discussed potential benefits of weight reduction on overall health. 7. ELBERT (obstructive sleep apnea) (G47.33) Not using CPAP therapy. Polycythemia with hemoglobin of 18.7 g/dL, likely secondary to obesity and untreated ELBERT. - Advised patient to consult with primary care physician regarding initiation of CPAP therapy. 8. systolic congestive heart failure ([facility]) (I50.21) PAF (paroxysmal atrial fibrillation) ([facility]) (I48.0) Chronic HFrEF (heart failure with reduced ejection fraction) ([facility]) (I50.22) HFrEF (heart failure with reduced ejection fraction) ([facility]) (I50.20) EF improved from 20% to 35% over the past year. Recent EKG shows sinus rhythm, first-degree AV block, right axis deviation, and evidence of a large anterolateral AR. No significant valve disease note on prior echo mild to moderate pulmonary hypertension present. No current symptoms of dizziness, syncope, or significant edema. Patient has a history of noncompliance with medical management. Currently seems to be taking meds and actually doing pretty well: He has pretty significant dyspnea but much of this is related to his obesity and lung disease. Volume status looks pretty good - Continue current heart failure management regimen. - Educated patient on the importance of medication adherence. - Advised patient to monitor for symptoms such as syncope, severe chest pain, or worsening dyspnea and to seek immediate medical attention if these occur. - Scheduled follow-up echocardiogram before he returns next year. If EF remains reduced might have to consider ICD. 9. Tobacco abuse: Still smokes and really counseled him to try to quit including nicotine gum nicotine patches or calling 1 800 quit NOW 10. ED: He says Viagra and Cialis are not effective. I suggested he see a urologist to discuss further. Multifactorial most likely due to meds obesity coronary disease etc. Electronically signed by Natali Alberts MD on April 11, 2025, 6:54 AM documented in this encounter [facility] 04-11-2025 Note HNO ID: [id number] Author: NATALI ALBERTS MD Service: ? Author Type: Physician Type: Progress Notes Filed: 04/11/2025 16:01 Note Text: Chief Complaint No chief complaint on file. History of Present Illness: Venkat Marsh is a 59-year-old male with a history of ischemic heart disease, prior PCI to the LAD, T2DM, hypertension, hyperlipidemia, sleep apnea, morbid obesity (BMI 45), and bipolar disorder, presenting for follow-up. The patient reports dyspnea, which he attributes to ongoing tobacco use. He denies experiencing angina, palpitations, syncope, or significant lower extremity edema, though he notes mild swelling after prolonged sitting or driving. He does not use nitroglycerin. He reports erectile dysfunction and a low energy level. He has tried sildenafil without success and inquires about testosterone therapy, noting a recent testosterone level of 339 ng/dL. He has not been taking his cholesterol medications due to severe cramps associated with statins. He is unsure if he is currently taking Zetia. He has a history of smoking and continues to smoke, despite previous claims of cessation. He denies alcohol use. He plans to travel to the [facility] from October 31 to November 28 and expresses a desire for a good bill of health before his trip. He is currently taking his prescribed cardiac medications, except for the cholesterol medications. PAST MEDICAL HISTORY Diagnosis Date Acute congestive heart failure, unspecified heart failure type ([facility]) Bipolar 1 disorder ([facility]) psychiatry in [place] CAD S/P percutaneous coronary angioplasty 2011 AR PCI to LAD in 2011. Dr. Ponce CHF (congestive heart failure) ([facility]) Diabetes mellitus ([facility]) History of acute myocardial infarction HTN (hypertension) Hypercholesteremia Hypothyroidism Morbid obesity with BMI of 45.0-49.9, adult ([facility]) Non-compliant patient ELBERT (obstructive sleep apnea) Tobacco [...] 1996 THYROIDECTOMY SUBTOTAL/PARTIAL Right 08/2008 TONSILLECTOMY PRIMARY/SECONDARY Tonsillectomy FAMILY HISTORY Problem Relation Age of Onset Cancer Mother uterine No Known Problems Brother other (depression) Maternal Grandmother Social History Tobacco Use Smoking status: Every Day Current packs/day: 0.50 Average packs/day: 0.5 packs/day for 41.0 years (20.5 ttl pk-yrs) Types: Cigarettes Start date: 04/21/2023 Smokeless tobacco: Never Vaping Use Vaping status: Never Used Substance Use Topics Alcohol use: No Drug use: No ALLERGIES Allergen Reactions Amoxicillin-Pot Cla* Anaphylaxis, Swelling Doxycycline Unknown Lisinopril Cough Sulfamethoxazole-Tr* Rash, Hives, Swelling Trimethoprim Swelling Medications: Current Outpatient Medications Medication Sig Dispense Refill dulaglutide (TRULICITY) 3 mg/0.5 mL pen injector Inject 3 mg subcutaneously one time a week. 2 mL 2 albuterol HFA (PROVENTIL HFA, VENTOLIN HFA) 90 mcg/actuation inhaler Inhale 2 puffs as instructed every 4 hours as needed for wheezing/shortness of breath. 1 each 3 metFORMIN (GLUCOPHAGE) 1,000 mg tablet Take 1 tablet by mouth two times a day. 180 tablet 3 levothyroxine (SYNTHROID) 125 mcg tablet Take 1 tablet by mouth daily before breakfast. 90 tablet 3 insulin glargine 100 unit/mL (3 mL) Inject 20 Units subcutaneously daily at bedtime. 18 mL 3 metoprolol succinate ER (TOPROL XL) 25 mg 24 hr tablet Take 1 tablet by mouth once daily. 90 tablet 3 mirtazapine (REMERON) 15 mg tablet Take 1.5 tablets by mouth daily at bedtime. 45 tablet 3 traZODone (DESYREL) 100 mg tablet Take 1 tablet by mouth at bedtime as needed (sleep). Okay to take one-half of a tablet if feeling too sedated in the morning. 30 tablet 2 spironolactone (ALDACTONE) 25 mg tablet Take 25 [...] mouth three times a day as needed. rosuvastatin (CRESTOR) 10 mg tablet Take 1 tablet by mouth one time a week. 12 tablet 3 ezetimibe (ZETIA) 10 mg tablet Take 1 tablet by mouth once daily. 90 tablet 3 fluticasone (FLONASE) 50 mcg/actuation nasal spray Use 1 spray in (more content not included)... [facility] 04-07-2025 Telephone encounter Note Patient called regarding his testosterone lab levels. He stated he googled and saw that his levels are supposed to be in the 800's. He wanted to know if insurance would cover testosterone therapy. I told him this is something he would have to check with the insurance about, that we wouldn't be able to tell him. I did tell him, however, the doctor has not gotten a chance to review the lab results. But that we would call him once we have an update for those. Frieda Garza, Assistant Hall Director April 07, 2025 11:35 AM [facility] 04-07-2025 Miscellaneous Notes Patient called regarding his testosterone lab levels. He stated he googled and saw that his levels are supposed to be in the 800's. He wanted to know if insurance would cover testosterone therapy. I told him this is something he would have to check with the insurance about, that we wouldn't be able to tell him. I did tell him, however, the doctor has not gotten a chance to review the lab results. But that we would call him once we have an update for those. Frieda Garaz, Assistant Hall Director April 07, 2025 11:35 AM documented in this encounter [facility] 03-28-2025 Telephone encounter Note GENESIS questionnaire about symptoms of low testosterone (Androgen Deficiency in the Aging Male) This basic questionnaire can be very useful for men to describe the kind and severity of their low testosterone symptoms. 1. Do you have a decrease in sex drive? Yes 2. Do you have a lack of energy? Yes 3. Do you have a decrease in strength? Yes 4. Have you lost height? Yes 5. Have you noticed a decreased enjoyment of life Yes 6. Are you sad and/or grumpy? Yes 7. Are your erections less strong? Yes 8. Have you noticed a recent deterioration in your endurance? Yes 9. Are you falling asleep after dinner? Yes 10. Has there been a recent deterioration in your work performance? Yes [facility] 03-28-2025 Miscellaneous Notes GENESIS questionnaire about symptoms of low testosterone (Androgen Deficiency in the Aging Male) This basic questionnaire can be very useful for men to describe the kind and severity of their low testosterone symptoms. 1. Do you have a decrease in sex drive? Yes 2. Do you have a lack of energy? Yes 3. Do you have a decrease in strength? Yes 4. Have you lost height? Yes 5. Have you noticed a decreased enjoyment of life Yes 6. Are you sad and/or grumpy? Yes 7. Are your erections less strong? Yes 8. Have you noticed a recent deterioration in your endurance? Yes 9. Are you falling asleep after dinner? Yes 10. Has there been a recent deterioration in your work performance? Yes documented in this encounter [facility] 03-28-2025 Telephone encounter Note Patient is requesting a Testerone Test prior to his appointment 04/26. Miky العراقي, Assistant Hall Director March 28, 2025 2:26 PM [facility] 03-28-2025 Telephone encounter Note ----- Message from Alejandra Jain sent at 03/28/2025 2:16 PM EDT ----- [facility] Carmen[facility]/ Nikolai Nazario/ Testerone test req Subject Line Format: [Specialty] / [Provider Name] / Requesting Labs Prior To Appointment Select Primary Department Name For Pool Routing Assistance: INTM AG [facility] => AG [facility] [place] [[id number]] Patient: Venkat Marsh Date of : 1965 Primary Care Provider: Nikolai Nazario DO Patient is currently scheduled for an office visit on: 04/26/25. The patient is requesting to complete labs: Testerone Test prior to their appointment. The patient can be contacted at [phone] (home) [phone] (cell) with any additional needs/concerns regarding this request. Thank you, Alejandra Valderrama March 28, 2025 2:16 PM [facility] 03-28-2025 Miscellaneous Notes Patient is requesting a Testerone Test prior to his appointment 04/26. Miky العراقي, Assistant Hall Director March 28, 2025 2:26 PM ----- Message from Alejandra Jain sent at 03/28/2025 2:16 PM EDT ----- Regardingiovani/Vinicio/ Nikolai Nazario/ Testerone test req Subject Line Format: [Specialty] / [Provider Name] / Requesting Labs Prior To Appointment Select Primary Department Name For Pool Routing Assistance: IN[facility] => AG [facility] [place] [[id number]] Patient: Venkat Marsh Date of : 1965 Primary Care Provider: Nikolai Nazario DO Patient is currently scheduled for an office visit on: 04/26/25. The patient is requesting to complete labs: Testerone Test prior to their appointment. The patient can be contacted at [phone] (home) [phone] (cell) with any additional needs/concerns regarding this request. Thank you, Alejandra Valderrama March 28, 2025 2:16 PM documented in this encounter [facility] 03-08-2025 Discharge summary [facility] 03-08-2025 Radiology Diagnostic study note [facility] Imaging Services [address] [place], [place] [address] Wrist min 3 Views MR#: [id number] Acct: [id number] Name: VENKAT MARSH Rep #: [id number] : 1965 M 59 From: Artemio Ly MD PCP: Care Physician,No Primary Status: REG ER Study:Wrist min 3 Views Date of Exam: Exam# [id number] Ordering Dr: Biju Gomez DO PROCEDURE: WRIST MIN 3 VIEWS 03/08/2025 REASON FOR EXAM: INJURY TECHNIQUE: WRIST MIN 3 VIEWS COMPARISON: None. FINDINGS: Soft tissue edema and swelling. Mild osteopenia of the visualized bones. Degenerative joint disease. No fracture or dislocation is seen. No lytic or blastic bone lesion is noted. RAD/Wrist min 3 Views IMPRESSION: Soft tissue edema and swelling. Reading [facility] [address] CC: Dr. Maureen Goemz DO; No Primary Care Physician ~ Outbound Sales Professional: Signed [facility] 03-03-2025 Telephone encounter Note Patient has been made aware of questionnaire being sent over. Rudi العلي March 03, 2025 11:10 AM [facility] 03-03-2025 Miscellaneous Notes Patient has been made aware of questionnaire being sent over. Rudi العلي March 03, 2025 11:10 AM Patient is requesting testosterone testing. He wanted to know what he needs to do to begin the process. Patient would like a call with an update once available. Rudi العلي March 02, 2025 4:08 PM documented in this encounter [facility] 03-02-2025 Telephone encounter Note Patient is requesting testosterone testing. He wanted to know what he needs to do to begin the process. Patient would like a call with an update once available. Frieda Garza Assistant Hall Director March 02, 2025 4:08 PM [facility] 03-02-2025 Telephone encounter Note Patient has been made aware. Fridea Garza Assistant Hall Director March 02, 2025 4:04 PM [facility] 03-02-2025 Miscellaneous Notes Patient has been made aware. Frieda Garza Assistant Hall Director March 02, 2025 4:04 PM Recommend he [...] 2025 3:33 PM documented in this encounter [facility] 03-02-2025 Telephone encounter Note Recommend he increase to 3 mg dose weekly. I have sent that updated prescription [facility] 03-01-2025 Telephone encounter Note Last Office Visit Date: 01/19/2025 Last Distance Health Visit: 04/19/2024 Has the patient had an appointment at [facility] in the past year, or do they have an upcoming appointment scheduled at [facility]? YES- Continue with refill request. Future Appointment: 04/04/2025 Patient SERPs message requesting the following refill Refill(s) Requested: [...] Sulfamethoxazole-Tr* Rash, Hives, Swelling Trimethoprim Swelling (home) [phone] (cell) The patients preferred pharmacy has been captured for this encounter? yes Request is for script(s) to be escript to pharmacy. Corbin Alberto LPN T [facility] 03-01-2025 Miscellaneous Notes Last Office Visit Date: 01/19/2025 Last Distance Health Visit: 04/19/2024 Has the patient had an appointment at [facility] in the past year, or do they have an upcoming appointment scheduled at [facility]? YES- Continue with refill request. Future Appointment: 04/04/2025 Patient SERPs message requesting the following refill Refill(s) Requested: [...] Sulfamethoxazole-Tr* Rash, Hives, Swelling Trimethoprim Swelling (home) [phone] (cell) The patients preferred pharmacy has been captured for this encounter? yes Request is for script(s) to be escript to pharmacy. Corbin Alberto LPN documented in this encounter [facility] 03-01-2025 Telephone encounter Note Prescription Refill [...] Mann MA March 01, 2025 3:33 PM [facility] 02-22-2025 Note HNO ID: [id number] Author: TALITA ROSS MD Service: ? Author Type: Physician Type: Progress Notes Filed: 03/02/2025 19:06 Note Text: Talita Ross MD Hand AND Upper Extremity Surgery [address] [place], [facility] [address], [place] [id number] OUTPATIENT ESTABLISHED PATIENT VISIT SERVICE DATE: 02/22/2025 HISTORY OF PRESENT ILLNESS Venkat Marsh presents to the office for right thumb pain. Patient is known to my office, seen previously for Dupuytren's nodules. Patient does recall a specific single traumatic event. He hit the right hand at night because he thinks he sleep walks. This was a couple weeks ago. 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 MUSCLE: Ironer Machine and pinch strength are decreased due to [...] these instructions. Informed Consent Consent Obtained: Verbal [place] Protocol A moment to CARE was completed. SIGN IN Personnel directly involved with the procedure wore the appropriate PPE. Special Equipment: N/A Patient/Surrogate Stated/Verified: Patient name, Relevant allergies and Intended procedure TIME OUT Relevant labs, photos, and/or imaging studies have been reviewed. Correct side/site marked and (more content not included)... [facility] 02-22-2025 History of Present illness Narrative Associated Order(s): Small Joint Arthro/Inj: R thumb [facility] Post-Procedure Diagnose(s): Osteoarthritis of right thumb Images from the original note were not included. Talita Ross MD Hand & Upper Extremity Surgery [address] [place], [facility] [address], [place] [address] OUTPATIENT ESTABLISHED PATIENT VISIT SERVICE DATE: 02/22/2025 HISTORY OF PRESENT ILLNESS Venkat Marsh presents to the office for right thumb pain. Patient is known to my office, seen previously for Dupuytren's nodules. Patient does recall a specific single traumatic event. He hit the right hand at night because he thinks he sleep walks. This was a couple weeks ago. 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 MUSCLE: Ironer Machine and pinch strength are decreased due to [...] these instructions. Informed Consent Consent Obtained: Verbal [place] Protocol A moment to CARE was completed. [...] office with questions or concerns. Recording using [employer] software for draft documentation of the visit was discussed with the patient/authorized bank representative; all questions welcomed and answered. Patient/authorized bank representative agreed to proceed Talita Ross MD Medical Decision Making Prepared Celestone 6mg/ml Lidocaine 1% injection as directed by Dr. Talita Ross and handed directly to Dr. Talita Ross for administration. Sandra Samuels RN February 22, 2025 11:21 AM documented in this encounter [facility] 02-22-2025 Note HNO ID: [id number] Author: SANDRA SAMUELS RN Service: ? Author Type: Registered Nurse Type: Progress Notes Filed: 03/02/2025 19:06 Note Text: Prepared Celestone 6mg/ml Lidocaine 1% injection as directed by Dr. Talita Ross and handed directly to Dr. Talita Ross for administration. Sandra Samuels RN February 22, 2025 11:21 AM [facility] 02-20-2025 Telephone encounter Note Pt reminded of appointment on 02/22/2025 and to have xrays completed prior to the day of his appointment. Pt was given hours and locations to have this completed. Pt verbalized understanding of instructions. Bibiana Lozoya MA February 20, 2025 3:39 PM [facility] 02-20-2025 Miscellaneous Notes Pt reminded of appointment on 02/22/2025 and to have xrays completed prior to the day of his appointment. Pt was given hours and locations to have this completed. Pt verbalized understanding of instructions. Bibiana Lozoya MA February 20, 2025 3:39 PM documented in this encounter [facility] 01-27-2025 Note HNO ID: [id number] Author: REBECCA CAMEJO MD Service: ? Author Type: Physician Type: Progress Notes Filed: 01/27/2025 11:22 Note Text: Reviewed the patient's chart and agree with the resident's assessment and plan. Rebecca Camejo MD Reviewed the patient's chart and agree with the resident's assessment and plan. Rebecca Camejo MD [facility] 01-27-2025 History of Present illness Narrative Reviewed the patient's chart and agree with the resident's assessment and plan. Rebecca Camejo MD Reviewed the patient's chart and agree with the resident's assessment and plan. Rebecca Camejo MD [facility] PROGRESS NOTE PATIENT: Venkat Marsh MRD: [id number] DATE: January 27, 2025 IDENTIFYING INFORMATION: Venkat is a 59 year old male with a history of disorder, cocaine use disorder, anxiety. CHIEF COMPLAINT: doing ok today SUBJECTIVE: Venkat is a 59 year old male with a history of mood disorder, cocaine use disorder, anxiety. The patient's last appointment with [facility] Psychiatry clinic was on 02/03/24. Psychotropic medication [...] 5 years THC- denies THC use since highZattooool Hx heavy Cocaine use in his 30s, [...] caffeine/nicotine use 4. Insomnia, unspecified PLAN: Provided summer camp counselor and support. Encouraged ongoing use of coping skills, resiliency. Encouraged healthy and open communication. Medication changes: increase Remeron 15 mg to 22.5 qhs, historical medication Continue trazodone 100 mg qhs, historical medication-discussed with patient if he is feeling groggy in the morning, he may try taking one half of a tablet of this. reinforce role of caffeine on mental physical health, summer camp counselor cutting back/ cessation Pt reports he is not established with therapist currently- consult placed Risk/benefits/side effects/interactions of above medications discussed with patient Labs: reviewed PDMP website checked and validated. All prescriptions have been APPROPRIATELY filled. No suspicious activity was identified. 01/27/2025 by Yuliet Fong DO Patient understands and [...] which included preparing to see the patient, [id number] patient care, completing clinical documentation, obtaining and/or reviewing separately obtained history, performing a medically appropriate examination, counseling and educating the patient/family/caregiver, and ordering medications, tests, or procedures. Disclaimer: Portions of this note may have been generated using [employer] voice recognition software and is inherently subject [...] 2025 8:35 AM documented in this encounter [facility] 01-27-2025 Note HNO ID: [id number] Author: FERNS, YULIET, DO Service: ? Author Type: Resident Type: Progress Notes Filed: 01/27/2025 08:57 Note Text: [facility] PROGRESS NOTE PATIENT: Venkat Marsh MRD: [id number] DATE: January 27, 2025 IDENTIFYING INFORMATION: Venkat is a 59 year old male with a history of disorder, cocaine use disorder, anxiety. CHIEF COMPLAINT: doing ok today SUBJECTIVE: Venkat is a 59 year old male with a history of mood disorder, cocaine use disorder, anxiety. The patient's last appointment with [facility] Psychiatry clinic was on 02/03/24. Psychotropic medication [...] anxiety, (10-14) moder (more content not included)... [facility] 01-24-2025 Note HNO ID: [id number] Author: NATALI WEAVER RN Service: ? Author Type: Registered Nurse Type: Progress Notes Filed: 01/24/2025 09:26 Note Text: DIABETES CARE AND EDUCATION VISIT Location: [place] Type of visit: In person individual PATIENT'S [...] DATE: January 24, 2025 TIME: 8:56 AM [facility] 01-24-2025 History of Present illness Narrative DIABETES CARE AND EDUCATION VISIT Location: [place] Type of visit: In person individual PATIENT'S [...] TIME: 8:56 AM documented in this encounter [facility] 01-20-2025 Telephone encounter Note Heart Failure [...] tablet by mouth daily before breakfast. Insulin [place], Disposable, (PEN NEEDLE) 32 gauge x 5/32 [...] Take 1 each by mouth as needed. [facility] 01-20-2025 Miscellaneous Notes Heart Failure Clinic Discharge [...] tablet by mouth daily before breakfast. Insulin [place], Disposable, (PEN NEEDLE) 32 gauge x 5/32 [...] as needed. TC to Pt went to VM, LVM PT returned your call TC to Pt no answer LVM Discharged with heart failure. Needs 72 hour post discharge phone call. documented in this encounter [facility] 01-19-2025 Telephone encounter Note TC to Pt went to VM, LVM [facility] 01-19-2025 Note HNO ID: [id number] Author: NIKOLAI NAZARIO DO Service: ? Author Type: Physician Type: Progress Notes Filed: 01/19/2025 11:50 Note Text: Nikolai Nazario DO Board Certified Internal Medicine, Lipidology, Metabolic Medicine and Lifestyle Medicine [facility] Recording using [employer] software for draft documentation of the visit was discussed with the patient/authorized bank representative; all questions welcomed and answered. Patient/authorized bank representative agreed to proceed Date of Evaluation: 01/19/2025 [...] - NT PRO BNP - CONSULT TO [facility] ([facility] ONLY) - COMPLETE BLOOD COUNT AND DIFFERENTIAL [...] - ALBUMIN/CREATININE RATIO, URINE - CONSULT TO [facility] ([facility] ONLY) - CONSULT [...] 43.85 kg/(m2) 6. Coronary artery disease involving [place] coronary artery of [place] heart without angina pectoris - ICD9: 414.01, [...] problem worsens or does not resolve. Nikolai Nazario DO Subjective Venkat is a 59-year-old male with a history of CHF, DM, and hyperlipidemia, presenting for an initial visit and medication management. Congestive Heart Failure: - Recent EF measurements: 17% during a recent hospitalization, improved to 35% last week at [facility]. 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 [facility] 01-19-2025 History of Present illness Narrative Nikolai Nazario DO Board Certified Internal Medicine, Lipidology, Metabolic Medicine and Lifestyle Medicine [facility] Recording using ambient [employer] software for draft documentation of the visit was discussed with the patient/authorized bank representative; all questions welcomed and answered. Patient/authorized bank representative agreed to proceed Date of Evaluation: 01/19/2025 [...] - NT PRO BNP - CONSULT TO [facility] ([facility] ONLY) - COMPLETE [...] - ALBUMIN/CREATININE RATIO, URINE - CONSULT TO [facility] ([facility] ONLY) - CONSULT [...] 43.85 kg/(m^2) 6. Coronary artery disease involving [place] coronary artery of [place] heart without angina pectoris - ICD9: 414.01, [...] problem worsens or does not resolve. Nikolai Nazario DO Subjective Venkat is a 59-year-old male with a history of CHF, DM, and hyperlipidemia, presenting for an initial visit and medication management. Congestive Heart Failure: - Recent EF measurements: 17% during a recent hospitalization, improved to 35% last week at [facility]. 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 Tailta Ross for further evaluation. Presents for BP evaluation. Reports compliance with medication. Denies any issues with light head, dizziness, or overwhelming fatigue. Presents for CAD management. Reports compliance with medication and denies side effects. Denies chest pain, chest discomfort with activity, SOBOE, or weakness with activity. PAST MEDICAL HISTORY Diagnosis Date Bipolar 1 disorder ([facility]) psychiatry in [place] CAD S/P percutaneous coronary angioplasty 2011 [place] PCI to [place] 2011. Dr. Ponce CHF (congestive heart failure) ([facility]) Diabetes mellitus ([facility]) History of acute myocardial infarction HTN (hypertension) Hypercholesteremia Hypothyroidism Morbid obesity with BMI of 45.0-49.9, adult ([facility]) Non-compliant patient ELBERT (obstructive sleep apnea) Tobacco [...] tablet by mouth daily before breakfast. Insulin Colfax, Disposable, (PEN NEEDLE) 32 gauge x 5/32 [...] studies and notes. documented in this encounter [facility] 01-19-2025 Instructions Nikolai Nazario DO - [...] or cannot breathe documented in this encounter [facility] 01-19-2025 Note HNO ID: [id number] Author: ?, ?, ? Service: ? Author Type: ? Type: Progress Notes Filed: 01/19/2025 11:41 Note Text: POPULATION HEALTH NAVIGATION OUTREACH Action/FYI Patient replied to [employer] from 12/21, has a new pcp. Messaged pt to update provider info. Reason for Outreach Returned Call/MyChart Patient Contacted: Spoke to patient/parent/or legal guardian Patient identified by name and date of : Yes Returned call/MyChart actions taken: SERPs message sent Navigation Signature: Sandra Zaldivar January 19, 2025 11:38 AM [facility] 01-19-2025 Telephone encounter Note PT returned your call [facility] 01-19-2025 Telephone encounter Note TC to Pt no answer LVM [facility] [employer] 01-18-2025 Telephone encounter Note Discharged with heart failure. Needs 72 hour post discharge phone call. T [employer] Work Phone: 01-17-2025 Note HNO ID: [id number] Author: TE RAMOS, SUZAN Service: ? Author Type: Registered Nurse Type: Progress Notes Filed: 01/17/2025 10:54 Note Text: Summary: Chart review per payor request. ACM [...] Care Everywhere after further research. Admitted to [facility]. Signature: Te Ramos RN [facility] 01-17-2025 History of Present illness Narrative Summary: [...] Care Everywhere after further research. Admitted to [facility]. Signature: Te Ramos RN documented in this encounter [facility] 01-17-2025 Note Formatting of this n ote might be different from the original. Care Management Progress Note Patient to be DC today. Length of Stay (Days): 0 GMLOS: No GMLOS Documented [facility] 01-17-2025 Note Formatting of this n ote might be different from the original. Care Management Progress Note Patient to be DC today. Length of Stay (Days): 0 GMLOS: No GMLOS Documented [facility] 01-17-2025 Note Care Management Prog ress Note Patient to be DC today. Length of Stay (Days): 0 GMLOS: No GMLOS Documented [facility] 01-17-2025 Miscellaneous Notes Care Management Progress Note [...] Dr. Hernandez; Pt is ready to leave [facility]. He waited all day yesterday and has things to do today. He doesn't think he can wait till the doctors round today. 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 HF information systems coordinator: Met with pt for HF education. Topics covered include: Low sodium diet and 2L fluid restriction, how and when to obtain daily weight with weight parameters, HF signs and symptoms, self-monitoring/management with HF Zones tool, how/when to contact Cardiology, activity, pathophysiology of condition, prognosis, purpose of medications and side effects, importance of close follow-up with provider. C benefits: 13/04 provider access via the [employer] service and PRN IV/IM lasix and same [...] not been using it. Notified by 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 S.C. to Sabrina Kam PA-C to request a Cardiac Rehab referral for LVEF < 35%. Added instructions to AVS for pt to find a new PCP on [email or web address] or to call the C as pt previously liked being seen at the resident clinic at [facility]. Teach back for all education received. [...] failure coordinator and Dr Bahena updated by [facility]. Spoke with patient regarding PT recommendations for home health PT. He agreed. 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 Problem: Knowledge Deficit Goal: Patient/family/caregiver demonstrates [...] achieved/maintained Outcome: Progressing documented in this encounter [facility] 01-17-2025 Nurse Note Discharge instructions reviewed with patient. All questions answered. Pt discharged to home with all belongings. [facility] 01-17-2025 Nurse Note Discharge instructions reviewed with [...] was again provided. documented in this encounter [facility] 01-17-2025 Nurse Note pt adamant on leaving. Dr. Christie messaged via secure chat. Stated patient can be discharged. This RN asked him about not having a PCP Dr. Christie states patient can follow up with cardiology for now. Will update patient. [facility] 01-17-2025 fleet sales manager Note Response from Dr. Hernandez, tell him he has to stay, the day team will be in I\about 1 hr. Someone will be there around 7: 00 am I will let them know at signout . Will tell the pt but the pt states he needs to be home by 8. [facility] 01-17-[address] fleet sales manager [address]. Wells and Dr. Hernandez; Pt is ready to leave [place]. He waited all day yesterday and has things to do today. He doesn't think he can wait till the doctors round today. 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 [facility] 01-17-2025 Note Patient Outreach ([facility]) VENKAT MARSH ([id number]) 1965 M Date Time Provider Department 01/17/25 TE RAMOS During your visit today, we recorded the following information about you: Te Ramos RN 01/17/2025 10:54 AM Signed ACM NAYA [...] Care Everywhere after further research. Admitted to [facility]. Signature: Te Ramos RN Allergies As of [...] Assessed Reason for Visit: ACM NAYA RN [[id number]] Cmt: Chart review per payor request. Prescriptions [...] by mouth daily before breakfast. - Insulin [place], Disposable, (PEN NEEDLE) 32 gauge x 5/32 [...] Encounter Status:Closed by TE RAMOS on 01/17/25 [facility] 01-16-2025 Note Formatting of this n ote might be different from the original. HF information systems coordinator: Met with pt for HF education. Topics covered include: Low sodium diet and 2L fluid restriction, how and when to obtain daily weight with weight parameters, HF signs and symptoms, self-monitoring/management with HF Zones tool, how/when to contact Cardiology, activity, pathophysiology of condition, prognosis, purpose of medications and side effects, importance of close follow-up with provider. [facility] benefits: 13/04 provider access via the [employer] service and PRN IV/IM lasix and same [...] not been using it. Notified by 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 S.C. to Sabrina Kam PA-C to request a Cardiac Rehab referral for LVEF < 35%. Added instructions to AVS for pt to find a new PCP on [email or web address] or to call the [facility] as pt previously liked being seen at the resident clinic at [facility]. Teach back for all education received. HF booklet provided. [facility] 01-16-2025 Note Formatting of this n ote might be different from the original. HF information systems coordinator: Met with pt for HF education. Topics [...] not been using it. Notified by 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 S.C. to Sabrina Kam PA-C to request a Cardiac Rehab referral for LVEF < 35%. Added instructions to AVS for pt to find a new PCP on [email or web address] or to call the [facility] as pt previously liked being seen at the resident clinic at [facility]. Teach back for all education received. HF booklet provided. [facility] 01-16-2025 Note HF information systems coordinator: Met with pt for HF education. Topics [...] AVS. Encouraged pt to use a fitness tcao to track daily weight, sodium and fluid intake. Pt with about 5 empty coffee cups at bedside during educational session. Reviewed the need to limit fluids to ~ 2L/day. Pt has a scale, but has not been using it. Notified by 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 S.C. to Sabrina Kam PA-C to request a Cardiac Rehab referral for LVEF < 35%. Added instructions to AVS for pt to find a new PCP on [email or web address] or to call the [facility] as pt previously liked being seen at the resident clinic at [facility]. Teach back for all education received. HF booklet provided. [facility] 01-16-2025 Hospital Discharge instructions Cynthia Monroe RN - 01/16/2025 4:29 PM EDT To find a PCP- go to [email or web address] and click on Find a Doctor. You can see a list of providers with availability and reviews. You may also call the Internal Medicine Center if you would like to be in a resident (manager intern) type clinic like you were at [facility] Internal Medicine Center: [phone] My Heart Failure Action Plan Use the below chart as a guide for daily symptom monitoring after you obtain your morning weight. My Truck Terminal Manager: [facility] Heart Failure Clinic Sabrina Kam PA-C [phone] Same day/urgent appointments available for new or [...] 5 pounds in a week Call your Truck Terminal Manager!! My Diet Goal: General diet recommendations for [...] I have chest pain or cannot breathe. [facility] [place] BMI (Body Mass Index) is simply the [...] kg/m2 Severly Obese 40+ Extremely Obese The [facility] [place] has been helping people lose weight since [...] A Weight Loss Option for Everyone The [facility] [place] offers many options for weight loss. We understand that readiness to lose weight varies from one person to the next, so we offer a continuum of services starting with lower intensity options with a dietitian, and then including behavioral, medical and surgical options. All of our higher intensity services are designed to take place with a physician or resource specialist to make sure you get the [...] fits your needs. All patients of the [facility] [place] experience a clinician-driven solution, with the assistance [...] and the risks on your health at [facility] Or call for information: New Patient Appointments: [phone] Nutrition/Dietitian Appointments: [phone] The following attachments cannot be sent through Care Everywhere.Obstructive Sleep Apnea Discharge Instructions, Adult (Congolese)documented in this encounter [facility] 01-16-2025 Note Formatting of this [...] failure coordinator and Dr Bahena updated by [facility]. [facility] 01-16-2025 Note Formatting of this [...] failure coordinator and Dr Bahena updated by [employer]. T [facility] 01-16-2025 Note Spoke with pt regard ing [...] failure coordinator and Dr Bahena updated by [facility]. [facility] 01-16-2025 Note Patient declined smo igor cessation counseling and handout with contact information. [facility] 01-16-2025 History of Present illness Narrative Patient declined smoking cessation counseling and handout with contact information. Images from the original note were not included. PHYSICAL THERAPY [facility] Initial Evaluation Name/MRN: Shadi Marsh ([id number]) Evaluation Date: 01/16/2025 Date of : 1965 Admission Date: 01/13/2025 5:24 PM Age: 59 y.o. Room[facility]Bed: [facility] A Discharge Recommendation: Home with Home health [...] to return home with assist and [facility] PT. Admitting Diagnosis: Pt admitted with SOB, [...] (congestive heart failure) (HCC) Depression Hyperlipidemia Hypertension AR (mitral incompetence) Past Surgical History: Past Surgical History: Procedure Laterality Date CORONARY ANGIOPLASTY WITH STENT PLACEMENT Admission Diagnosis: Patient Active Problem List Diagnosis Date Noted Acute congestive heart failure, unspecified heart failure type (HCC) 01/13/2025 Medical Precautions: No active isolations Proper [...] Responsibilities: Independent Receives Help From: None Active Licensing Court Magistrate: Yes Prior Level of Function Prior Level [...] of Care supervision is transferred to a [facility] Therapy Services Physical Therapist. Goals and/or treatment plan was established in collaboration with patient/family/other representatives. Hospitalist Progress Note 01/16/2025 9:12 AM [phone]: Please page me for patient care issues. [phone]: Please page [facility] night Hospitalist for any issues. Subjective: Admit Date: 01/13/2025 PCP: No primary care provider on file. Room#: W5-526/W5520 A Interval History: Patient seen and examined [...] (congestive heart failure) (HCC) Depression Hyperlipidemia Hypertension AR (mitral incompetence) Adult diet Regular; Low Sodium (2 gm); 4 carb choices (60 gm/meal) @[id number]@ Medications: aspirin, 81 mg, Oral, Daily bumetanide, [...] mg, Oral, Daily LABS: CBC: Recent Labs 01/13/25 1927 01/14/25 0704 01/15/25 0009 WBC 9.4 8.7 8.7 [...] 8 11 13 LIVER PROFILE: Recent Labs 01/13/25 1927 AST 26 ALT 22 BILITOT 0.6 ALKPHOS [...] made to ensure accuracy; however, inadvertent computerized die engraving supervisor errors may be present. Praful Bahena MD Division of Hospitalist Medicine [facility] PAGER: Epic chat [facility] [place] [facility] Cardiology /Electrophysiology Progress Note HPI / Interval History: Shadi Marsh is a 59 y/o M with a PMHx of HFrEF, CAD, HTN, HLD, CKD, and ELBERT, who presented to [facility] on 01/13 with c/o SOB, orthopnea, and LOVE. He previously followed at [facility] for his heart failure, but had been [...] catheterization was completed in February 2024 at [facility] and demonstrated patent stents with moderate disease. [...] 01/30 (pt requesting to switch care to [facility]) If there are any questions/concerns, please contact the covering provider. If no answer by Secure Chat, please call the cardiology office to obtain appropriate covering CEMETERY VAULT INSTALLER/physician. Medications: aspirin, 81 mg, Oral, Daily bumetanide, [...] No results found for: TROPDELTSEC Recent Labs 01/13/25192601/14/25 0704 01/15/25 0009 01/16/25 0306 NA 137 137 138 140 K 3.9 4.1 3.5 4.1 CL 101 99 102 104 CO2 27 30 25 23 BUN 14 13 21 21 CREATININE 1.31* 1.20 1.30* 1.47* Recent Labs 01/13/25192601/14/25 0704 01/15/25 0009 WBC [...] 01/16/2025 Hospitalist Progress Note 01/15/2025 9:46 AM [phone]: Please page me for patient care issues. [phone]: Please page [facility] night Hospitalist for any issues. Subjective: Admit Date: 01/13/2025 PCP: No primary care provider on file. Room#: W526/[facility]526 A Interval History: Patient seen and examined [...] (congestive heart failure) (HCC) Depression Hyperlipidemia Hypertension AR (mitral incompetence) Adult diet Regular; Low Sodium (2 gm); 4 carb choices (60 gm/meal) @[id number]@ Medications: aspirin, 81 mg, Oral, Daily bumetanide, [...] made to ensure accuracy; however, inadvertent computerized die engraving supervisor errors may be present. Praful Bahena MD Division of Hospitalist Medicine [facility] PAGER: Epic chat [facility] [place] [facility] Cardiology /Electrophysiology Progress Note HPI / Interval History: Venkat Marsh is a 59 y.o. male with known CAD s/p remote AR with PCI to LAD in 2011, hypertension, [...] requesting to establish with HF clinic at [facility] CAD s/p remote PCI with most recent [facility] 04/13 [facility] showing patent stents with moderate [...] No results found for: TROPDELTSEC Recent Labs 01/13/25192601/14/25 0704 01/15/25 0009 NA 137 137 138 K 3.9 4.1 3.5 CL 101 99 102 CO2 27 30 25 BUN 14 13 21 CREATININE 1.31* 1.20 1.30* Recent Labs 01/13/25192601/14/25 0704 01/15/25 0009 WBC 9.4 8.7 8.7 HGB 17.2 16.6 16.9 HCT 52.2* 50.1 51.0 MCV 89.4 90.3 88.5 PLT 190 219 195 Recent Labs 01/13/25 1927 BNP 2,488* No results for input(s): TRIG, HDL, LDLCALC, CHOL in the last 72 hours. No results found for: LDLCHOLESTER Lab Results Component Value Date TSH 0.71 01/15/2025 EF BP Date Value Ref Range Status 01/14/2025 43 (A) 55 - 100 % Final EF Physician Date Value Ref Range Status 01/14/2025 35 % Final LHC at [facility] 03/2024 LAD: The proximal LAD is narrowed [...] be monitored and followed by the diet chemical radiation technician. [facility] Respiratory Care Department Progress Note As part [...] patient, Hospitalist Progress Note 01/14/2025 7:55 AM [phone]: Please page me for patient care issues. [phone]: Please page [facility] Hospitalist for any issues. Subjective: Admit Date: [...] independently by me showed sinus rhythm, prolonged PA interval COVID/influenza/RSV negative Chest x-ray negative for acute process Past medical history : Past Medical History: Diagnosis Date CAD (coronary artery disease) CHF (congestive heart failure) (HCC) Depression Hyperlipidemia Hypertension AR (mitral incompetence) Adult diet Regular; Low Sodium (2 gm); 4 carb choices (60 gm/meal) @[id number]@ Medications: amLODIPine, 2.5 mg, Oral, Daily aspirin, [...] made to ensure accuracy; however, inadvertent computerized die engraving supervisor errors may be present. Praful Bahena MD Division of Hospitalist Medicine [facility] [employer] PAGER: Epic chat documented in this encounter [facility] 01-16-2025 Note Formatting of this n ote might be different from the original. Spoke with patient regarding PT recommendations for home health PT. He agreed. 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 [facility] 01-16-2025 Note Formatting of this n ote might be different from the original. Spoke with patient regarding PT recommendations for home health PT. He agreed. 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 [facility] 01-16-2025 Note PHYSICAL THERAPY [facility] Initial Evaluation Name/MRN: Shadi Marsh ([id number]) Evaluation Date: 01/16/2025 Date of : 1965 Admission Date: 01/13/2025 5:24 PM Age: 59 y.o. Room[facility]Bed: [facility] A Discharge Recommendation: Home with Home health [...] to return home with assist and [facility] PT. Admitting Diagnosis: Pt admitted with SOB, [...] (congestive heart failure) (HCC) Depression Hyperlipidemia Hypertension AR (mitral incompetence) Past Surgical History: Past Surgical History: Procedure Laterality Date CORONARY ANGIOPLASTY WITH STENT PLACEMENT Admission Diagnosis: Patient Active Problem List Diagnosis Date Noted Acute congestive heart failure, unspecified heart failure type (HCC) 01/13/2025 Medical Precautions: No active isolations Proper [...] Responsibilities: Independent Receives Help From: None Active Licensing Court Magistrate: Yes Prior Level of Function Prior Level [...] Home Management Training, (more content not included)... [facility] 01-16-2025 Telephone encounter Note Patient called requesting [...] Sulfamethoxazole-Tr* Rash, Hives, Swelling Trimethoprim Swelling (home) [phone] (cell) Last Office Visit Date: 02/03/2024 Last [facility] Health Visit: Visit date not found Future Appointment: Visit date not found The patients preferred pharmacy has been captured for this encounter? yes Request is for script(s) to be escript to pharmacy. Jelena Oleary [facility] 01-16-2025 Miscellaneous Notes Patient called requesting [...] Sulfamethoxazole-Tr* Rash, Hives, Swelling Trimethoprim Swelling (home) [phone] (cell) Last Office Visit Date: 02/03/2024 Last [facility] Health Visit: Visit date not found Future Appointment: Visit date not found The patients preferred pharmacy has been captured for this encounter? yes Request is for script(s) to be escript to pharmacy. Jelena Oleary documented in this encounter [facility] 01-16-2025 Telephone encounter Note Patient called on 01/16- I spoke with him- He is in the hospital - dealing with heart failure He needs a follow up appt with provider Asked for refills- I explained I'm not sure if provider will fill medication until he see's you Patient understood Jelena Oleary January 16, 2025 1:44 PM [facility] 01-16-2025 Miscellaneous Notes Patient called on 01/16- I spoke with him- He is in the hospital - dealing with heart failure He needs a follow up appt with provider Asked for refills- I explained I'm not sure if provider will fill medication until he see's you Patient understood Jelena Oleary January 16, 2025 1:44 PM documented in this encounter [facility] 01-16-2025 Plan of care note Problem: Knowledge Deficit Goal: Patient/family/caregiver demonstrates understanding of disease process, treatment plan, medications, and discharge instructions Outcome: Progressing Problem: Hemodynamic Status Goal: Patient's vitals signs are stable Outcome: Progressing Problem: Excessive Fluid Volume Goal: Fluid and electrolyte balance are achieved/maintained Outcome: Progressing [facility] 01-16-2025 Note Hospitalist Progress Note 01/16/2025 9:12 AM [phone]: Please page me for patient care issues. [phone]: Please page [facility] night Hospitalist for any issues. Subjective: Admit Date: 01/13/2025 PCP: No primary care provider on file. Room#: W5-526/W5-526 A Interval History: Patient seen and examined [...] (congestive heart failure) (HCC) Depression Hyperlipidemia Hypertension AR (mitral incompetence) Adult diet Regular; Low Sodium (2 gm); 4 carb choices (60 gm/meal) @[id number]@ Medications: aspirin, 81 mg, Oral, Daily bumetanide, [...] mg, Oral, Daily LABS: CBC: Recent Labs 01/13/25 1927 01/14/25 0704 01/15/25 0009 WBC 9.4 8.7 8.7 [...] made to ensure accuracy; however, inadvertent computerized die engraving supervisor errors may be present. Praful Bahena MD Division of Hospitalist Medicine [facility] PAGER: Ep (more content not included)... [facility] 01-16-2025 Note Formatting of this n ote might be different from the original. Care Management Progress Note Reviewed chart. From home. Cardiology following. Bumex IVP. Echo 35%. Plan to DC to home when medically stable. Will follow. Length of Stay (Days): 0 GMLOS: No GMLOS Documented [facility] 01-16-2025 Note Formatting of this n ote might be different from the original. Care Management Progress Note Reviewed chart. From home. Cardiology following. Bumex IVP. Echo 35%. Plan to DC to home when medically stable. Will follow. Length of Stay (Days): 0 GMLOS: No GMLOS Documented [facility] 01-16-2025 Note Care Management Prog ress Note Reviewed chart. From home. Cardiology following. Bumex IVP. Echo 35%. Plan to DC to home when medically stable. Will follow. Length of Stay (Days): 0 GMLOS: No GMLOS Documented [facility] 01-16-2025 Note [facility] Cardiology /Electrophysiology Progress Note HPI / Interval History: Shadi Marsh is a 59 y/o M with a PMHx of HFrEF, CAD, HTN, HLD, CKD, and ELBERT, who presented to [facility] on 01/13 with c/o SOB, orthopnea, and LOVE. He previously followed at [facility] for his heart failure, but had been [...] catheterization was completed in February 2024 at [facility] and demonstrated patent stents with moderate disease. [...] 01/30 (pt requesting to switch care to [facility]) If there are any questions/concerns, please contact the covering provider. If no answer by Secure Chat, please call the cardiology office to obtain appropriate covering CEMETERY VAULT INSTALLER/physician. Medications: aspirin, 81 mg, Oral, Daily bumetanide, [...] 2 seconds. Neurologica (more content not included)... [facility] 01-16-2025 Plan of care note Problem: [...] My discharge needs are met Outcome: Progressing T [facility] 01-15-2025 Plan of care note Problem: Knowledge Deficit Goal: Patient/family/caregiver demonstrates understanding of disease process, treatment plan, medications, and discharge instructions Outcome: Progressing Problem: Hemodynamic Status Goal: Patient's vitals signs are stable Outcome: Progressing Problem: Excessive Fluid Volume Goal: Fluid and electrolyte balance are achieved/maintained Outcome: Progressing [facility] 01-15-2025 Note Hospitalist Progress Note 01/15/2025 9:46 AM [phone]: Please page me for patient care issues. [phone]: Please page [facility] night Hospitalist for any issues. Subjective: Admit Date: 01/13/2025 PCP: No primary care provider on file. Room#: [facility] A Interval History: Patient seen and examined [...] (congestive heart failure) (HCC) Depression Hyperlipidemia Hypertension AR (mitral incompetence) Adult diet Regular; Low Sodium (2 gm); 4 carb choices (60 gm/meal) @[id number]@ Medications: aspirin, 81 mg, Oral, Daily bumetanide, [...] made to ensure accuracy; however, inadvertent computerized die engraving supervisor errors may be present. Praful Bahena MD Di (more content not included)... [facility] [employer] [facility] 01-15-2025 Note [facility] Cardiology /Electrophysiology Progress Note HPI / Interval History: Venkat Marsh is a 59 y.o. male with known CAD s/p remote AR with PCI to LAD in 2011, hypertension, [...] requesting to establish with HF clinic at [facility] CAD s/p remote PCI with most recent [facility] 04/13 [facility] showing patent stents with moderate [...] utilized to interpret delta troponins as per [facility] algorithms. Samples collected outside this timeframe need to be interpreted clinically. Rising or falling troponin delta below 2 ng/L as compared to 2h troponin value suggests that acute cardiac injury is unlikely. No results found for: TROPDELTSEC Recent La (more content not included)... [facility] 01-15-2025 Note [facility] Respiratory Care Department Progress Note As part [...] Respiratory in the care of this patient, [facility] 01-15-2025 Plan of care note Problem: [...] My discharge needs are met Outcome: Progressing T [facility] 01-14-2025 Nurse Note Gave pt another urinal to use and educated him on the importance of measuring his urine output while being on IV bumex. Pt voiced understanding. At 2200, I went in to check on the pt and he was using the bathroom, when he came out he still did not use the urinal. Education was again provided. T [facility] 01-14-2025 Consult note Associated Order (s): IP CONSULT TO CARDIOLOGY [facility] [place] Cardiology/ Electrophysiology Consult Note Reason for Consult/Chief Complaint: SOB Consulting MD: Dr. Bahena History of Present Illness: Venkat Marsh is a 59 y.o. male with known CAD s/p remote AR with PCI to LAD in 2011, hypertension, [...] not evaluated due to AF C at [facility] 03/2024 LAD: The proximal LAD is narrowed [...] (congestive heart failure) (HCC) Depression Hyperlipidemia Hypertension AR (mitral incompetence) Past Surgical History: Past Surgical [...] 300 lb (136 kg), SpO2 94%. @IODETAILS@ @[id number]@ Constitutional: No acute distress. Well-nourished. Well hydrated. [...] - normocephalic. Neck - supple Laboratory Tests: @[id number](WBC:5,HGB:5,HCT:5,MC V:5,PLT:5)@ @[id number](NA:5,K:5,CL:5,CO2:5, BUN:5,Creatinine:5, GLU:5)@ Lab Results Component Value Date HGBA1C 9.2 (H) 01/13/2025 No results found for: TSH No results found for: CHOL No results found for: HDL No results found for: LDLCALC No results found for: TRIG No results found for: CHOLHDL @[id number](CKTOTAL:5,CKMB:5,CKM BINDEX:5,TROPONINI:5)@ No components found for: NTPROBNP No components [...] Nini Crews MD DATE of SERVICE: 01/14/2025 [facility] [employer] Work Phone: 01-14-2025 Consult note Associated Order (s): IP CONSULT TO CARDIOLOGY [facility] [place] Cardiology/ Electrophysiology Consult Note Reason for Consult/Chief Complaint: SOB Consulting MD: Dr. Bahena History of Present Illness: Venkat Marsh is a 59 y.o. male with known CAD s/p remote AR with PCI to LAD in 2011, hypertension, [...] not evaluated due to AF LHC at [facility] 03/2024 LAD: The proximal LAD is narrowed [...] (congestive heart failure) (HCC) Depression Hyperlipidemia Hypertension AR (mitral incompetence) Past Surgical History: Past Surgical [...] 300 lb (136 kg), SpO2 94%. @IODETAILS@ @[id number]@ Constitutional: No acute distress. Well-nourished. Well hydrated. [...] - normocephalic. Neck - supple Laboratory Tests: @[id number](WBC:5,HGB:5,HCT:5,MC V:5,PLT:5)@ @[id number](NA:5,K:5,CL:5,CO2:5, BUN:5,Creatinine:5, GLU:5)@ Lab Results Component Value Date HGBA1C 9.2 (H) 01/13/2025 No results found for: TSH No results found for: CHOL No results found for: HDL No results found for: LDLCALC No results found for: TRIG No results found for: CHOLHDL @[id number](CKTOTAL:5,CKMB:5,CKM BINDEX:5,TROPONINI:5)@ No components found for: NTPROBNP No components found for: LVEF, LVEFMODE Radiology: CXR: personally reviewed: Cardiac Tests Personally Reviewed: ANABELLE Score Link Assessment/Plan NYHA Class [] I [] II [x] III [] IV Acute on chronic heart failure with reduced EF 17% in 04/13 2 NICM. Patient is volume overloaded and warm [...] of SERVICE: 01/14/2025 documented in this encounter [facility] 01-14-2025 Plan of care note Problem: Knowledge Deficit Goal: Patient/family/caregiver demonstrates understanding of disease process, treatment plan, medications, and discharge instructions Outcome: Progressing Problem: Hemodynamic Status Goal: Patient's vitals signs are stable Outcome: Progressing Problem: Excessive Fluid Volume Goal: Fluid and electrolyte balance are achieved/maintained Outcome: Progressing [facility] 01-14-2025 Note Hospitalist Progress Note 01/14/2025 7:55 AM [phone]: Please page me for patient care issues. [phone]: Please page [facility] night Hospitalist for any issues. Subjective: Admit [...] independently by me showed sinus rhythm, prolonged PA interval COVID/influenza/RSV negative Chest x-ray negative for acute process Past medical history : Past Medical History: Diagnosis Date CAD (coronary artery disease) CHF (congestive heart failure) (HCC) Depression Hyperlipidemia Hypertension AR (mitral incompetence) Adult diet Regular; Low Sodium (2 gm); 4 carb choices (60 gm/meal) @[id number]@ Medications: amLODIPine, 2.5 mg, Oral, Daily aspirin, [...] made to ensure accuracy; however, inadvertent computerized die engraving supervisor errors may be present. Praful Bahena MD Division of Hospitalist Medicine [facility] PAGER: Domo white [facility] 01-14-2025 Emergency department Note Report received from Courtney. Pt re enters my care at this time [facility] 01-14-2025 Emergency department Note Report received from Courtney. Pt re enters my care at this time Report given to Courtney. Pt exits my care at this time Report to SUZAN [facility] Emergency Department Encounter [facility] EMERGENCY DEPT Patient: Venkat Marsh : 1965 [...] diagnosed with pneumonia couple weeks ago at [facility] and just finished a course of antibiotics. [...] for clarification Taqueria Taylor MD Acute Care [facility] Taqueria Taylor MD 01/13/25 1851 Emergency Department Encounter [facility] EMERGENCY DEPT Patient: Venkat Marsh : 1965 [...] medical record and documentation. Taqueria Taylor MD [facility] Taqueria Taylor MD 01/13/25 1901 Taqueria Taylor MD 01/14/25 0923 Emergency Department Encounter [facility] EMERGENCY DEPT Patient: Venkat Marsh : 1965 [...] them. Pt also believes he has cellulitis KENAITZE Venkat Marsh is a 59 y.o. male [...] (congestive heart failure) (HCC) Depression Hyperlipidemia Hypertension AR (mitral incompetence) Past Surgical History: Procedure Laterality Date CORONARY ANGIOPLASTY WITH STENT PLACEMENT Social History Socioeconomic History Marital status: Single Tobacco Use Smoking status: Every Day Current packs/day: 0.50 Types: Cigarettes Substance and Sexual Activity Alcohol use: No Drug use: No Social Drivers of Health Food Insecurity: No Food Insecurity (04/14/2024) Received from [facility] Hunger Vital Sign Worried About Running Out of Food in the Last Year: Never true Ran Out of Food in the Last Year: Never true Transportation Needs: No Transportation Needs (04/14/2024) Received from [facility] PRAPARE - Transportation Lack of Transportation (Medical): No Lack of Transportation (Non-Medical): No Housing Stability: Unknown (04/14/2024) Received from [facility] Housing Stability Vital Sign Unable to [...] 414 ms QTC Interval 502 ms P Philippi 43 degrees QRS Philippi 136 degrees T Wave Philippi -50 degrees PA Interval 259 ms CBC auto differential Collection [...] Department Physician in the absence of a meat boner. see their note for interpretation of EKG. [...] MEDICATIONS: New Prescriptions No medications on file @[facility]([id number]:LAST:1)@ (Please note: Portions of this note were completed with a voice recognition program. Efforts were made to edit the dictations but occasionally words and phrases are mis-transcribed.) Form v2016.J.5-cn Harry Carey PA-C [employer] Harry Carey PA-C 01/14/25 0039 Cosigned by Taqueria Taylor MD at 01/14/2025 9:23 AM EDT documented in this encounter [facility] 01-14-2025 Emergency department Note Report given to Courtney. Pt exits my care at this time [facility] 01-13-2025 History and physical note Attending History [...] (congestive heart failure) (HCC) Depression Hyperlipidemia Hypertension AR (mitral incompetence) Past Surgical History: Past Surgical [...] Insecurity: No Food Insecurity (04/14/2024) Received from [facility] Hunger Vital Sign Worried About Running Out of Food in the Last Year: Never true Ran Out of Food in the Last Year: Never true Transportation Needs: No Transportation Needs (04/14/2024) Received from [facility] PRAPARE - Transportation Lack of Transportation (Medical): No Lack of Transportation (Non-Medical): No Physical Activity: Not on file Stress: Not on file Social Connections: Not on file Intimate Partner Violence: Not on file Housing Stability: Unknown (04/14/2024) Received from [facility] Housing Stability Vital Sign Unable to [...] - Pending the following - clincal improvement, senior billing consultant recs Total time spent (which include [...] - DO NOT do CPR, intubation] [_] [DNR-BASIC SCIENCES DEAN - Comfort care only] [_] DNR form [...] Luh Wells MD Division of Hospitalist Medicine [facility] [employer] Phone: 01-13-2025 Note Attending History an d [...] (congestive heart failure) (HCC) Depression Hyperlipidemia Hypertension AR (mitral incompetence) Past Surgical History: Past Surgical [...] Insecurity: No Food Insecurity (04/14/2024) Received from [facility] Hunger Vital Sign Worried About Running Out of Food in the Last Year: Never true Ran Out of Food in the Last Year: Never true Transportation Needs: No Transportation Needs (04/14/2024) Received from [facility] PRAPARE - Transportation Lack of Transportation (Medical): No Lack of Transportation (Non-Medical): No Physical Activity: Not on file Stress: Not on file Social Connections: Not on file Intimate Partner Violence: Not on file Housing Stability: Unknown (04/14/2024) Received from [facility] Housing Stability Vital Sign Unable to [...] 6.5 PT/INR: N (more content not included)... [facility] 01-13-2025 History and physical note Attending [...] (congestive heart failure) (HCC) Depression Hyperlipidemia Hypertension AR (mitral incompetence) Past Surgical History: Past Surgical [...] Insecurity: No Food Insecurity (04/14/2024) Received from [facility] Hunger Vital Sign Worried About Running Out of Food in the Last Year: Never true Ran Out of Food in the Last Year: Never true Transportation Needs: No Transportation Needs (04/14/2024) Received from [facility] PRAPARE - Transportation Lack of Transportation (Medical): No Lack of Transportation (Non-Medical): No Physical Activity: Not on file Stress: Not on file Social Connections: Not on file Intimate Partner Violence: Not on file Housing Stability: Unknown (04/14/2024) Received from [facility] Housing Stability Vital Sign Unable to [...] - Pending the following - clincal improvement, senior billing consultant recs Total time spent (which include [...] - DO NOT do CPR, intubation] [_] [DNR-BASIC SCIENCES DEAN - Comfort care only] [_] DNR form [...] Luh Wells MD Division of Hospitalist Medicine [facility] documented in this encounter [facility] 01-13-2025 Emergency department Note Report to SUZAN Interiano [facility] 01-13-2025 Physician Emergency department Note Emergency Department Encounter [facility] EMERGENCY DEPT Patient: Venkat Marsh : 1965 Date of Evaluation: 01/13/2025 ED Provider: Taqueria Tayolr MD TRIAGE NOTE I independently examined and [...] diagnosed with pneumonia couple weeks ago at [facility] and just finished a course of antibiotics. [...] Taylor MD 01/13/25 1851 Emergency Department Encounter [facility] EM[facility]GENCY DEPT Patient: Venkat Marsh : 1965 [...] and documentation. Taqueria Taylor MD Acute Care [facility] Taqueria Taylor MD 01/13/25 1901 Taqueria Taylor MD 01/14/25 0923 [employer] Phone: 01-13-2025 Physician Emergency department Note Emergency Department Encounter [facility] EMERGENCY DEPT Patient: Venkat Marsh : 1965 [...] them. Pt also believes he has cellulitis KENAITZE Venkat Marsh is a 59 y.o. male [...] (congestive heart failure) (HCC) Depression Hyperlipidemia Hypertension AR (mitral incompetence) Past Surgical History: Procedure Laterality Date CORONARY ANGIOPLASTY WITH STENT PLACEMENT Social History Socioeconomic History Marital status: Single Tobacco Use Smoking status: Every Day Current packs/day: 0.50 Types: Cigarettes Substance and Sexual Activity Alcohol use: No Drug use: No Social Drivers of Health Food Insecurity: No Food Insecurity (04/14/2024) Received from [facility] Hunger Vital Sign Worried About Running Out of Food in the Last Year: Never true Ran Out of Food in the Last Year: Never true Transportation Needs: No Transportation Needs (04/14/2024) Received from [facility] PRAPARE - Transportation Lack of Transportation (Medical): No Lack of Transportation (Non-Medical): No Housing Stability: Unknown (04/14/2024) Received from [facility] Housing Stability Vital Sign Unable to [...] 414 ms QTC Interval 502 ms P Philippi 43 degrees QRS Philippi 136 degrees T Wave [place]i -50 degrees PA Interval 259 ms CBC auto differential Collection [...] Department Physician in the absence of a meat boner. see their note for interpretation of EKG. [...] MEDICATIONS: New Prescriptions No medications on file @[facility]([id number]:LAST:1)@ (Please note: Portions of this note were completed with a voice recognition program. Efforts were made to edit the dictations but occasionally words and phrases are mis-transcribed.) Form v2016.J.5-cn Harry Carey PA-C [employer] Harry Carey PA-C 01/14/25 0039 Cosigned by Taqueria Taylor MD at 01/14/2025 9:23 AM EDT [facility] 01-06-2025 Discharge summary [facility] 01-05-2025 Discharge summary Note Date/Time January 06, 2025 12:39am [facility] Medical Records Department [address] [place] [address] Emergency Department Summary 01/05/25 MR#: [id number] Acct: [id number] Name: VENKAT MARSH Rep #:[id number] : 1965 59 From: Prieto Lees PCP: [...] leg swelling. Prior similar symptoms: Yes PFSH PFSH Medical History Congestive heart failure (CHF) BMI [...] clinician: N/A This note was generated with [employer] dictation software. It may contain incorrectwords, spelling, [...] % (Auto) 54.5 Lymph % (Auto) 29.7 Sargent % (Auto) 8.4 Eos % (Auto) 6.5 [...] Referrals: Baron Santiago MD [Med Staff - Pharmacy Benefit Manager] - 1 Week Care Physician,No Primary [Primary Care Provider] - Activity Restrictions/Additional Instructions: Your abdominal redness is not cellulitis. White count normal. Redness blanches. Use loratadine daily to help with itching. Take prednisone as prescribed. Benadryl as needed in addition if more itching. Monitor your glucose. Follow-up with primary care doctor. Print Language: Congolese Disposition Disposition: Home, Self Care What to do if you have Problems For any increased pain, shortness of breath, bleeding, nausea or vomiting, chestpain, or any unexpected problems, contact your Primary Care Provider. Call [facility] ([phone]) or report to the closest Emergency Room. Call 911 if necessary. 01/06/25 0039 <Electronically signed by Prieto Lees> Cosigner Signature (if applicable): CC: No Primary Care Physician ~ Signed [facility] Work Phone: 1(512) 352-409004-04-2025 Radiology Diagnostic study note [facility] Imaging Services [address] [place], [place] [address] Brain/Head without Contrast MR#: [id number] Acct: [id number] Name: VENKAT MARSH Rep #: [id number] : 1965 M 59 From: Amari Hidalgo MD PCP: Care Physician,No Primary Status: REG ER Study:Brain/Head without Contrast Date of Exa m: 12/23/24 Exam# [id number] Ordering Dr: Merari Werner DO PROCEDURE: BRAIN/HEAD [...] paranasal sinus disease as above. Reading Location: [id number] CC: Salty Werner DO; No Primary Care Physician ~ Outbound Sales Professional: Signed [facility]04-02-2025 Telephone encounter Note* Telephone Encounter - Magnolia [...] appointment at this time. Magnolia Mcmahon RN [facility]04-02-2025 Miscellaneous Notes* Telephone Encounter - Magnolia [...] time. Magnolia Mcmahon RN documented in this encounterTri[facility]25 Telephone encounter Note * Telephone Encounter - Bakari Dumont - 12/21/2024 1:35 PM EDT Patient called in requesting a refill and to update insurance. Made patient aware that he will haveto contact his PCP as he is not currently a patient of our office. Establish care 01/10/25 in our office. Patient insurance has been updated in the system. Bakari Dumont Assistant Hall Director I December 21, 2024 1:39 PM [facility]04-02-2025 Miscellaneous Notes* Telephone Encounter - Bakari Dumont - 12/21/2024 1:35 PM EDT Patient called in requesting a refill and to update insurance. Made patient aware that he will haveto contact his PCP as he is not currently a patient of our office. Establish care 01/10/25 in our office. Patient insurance has been updated in the system. Bakari Dumont Assistant Hall Director I December 21, 2024 1:39 PM documented in this encounterTri[facility]04-[facility]-2025 NoteHNO ID: [id number] Author: ?, ?, ? Service: ? Author [...] Signature: Sandra Zaldivar December 21, 2024 8:29 [facility]04-02-2025 History of Present illness Narrative* Sandra Schmidt [...] 21, 2024 8:29 AM documented in this encounterTri[facility]04-02-2025 NotePatient Outreach (NETNAV) SALMAVENKAT Blankenship ([id number]) 1965 M Date Time Provider Department 12/21/24 OSCAR BRIZUELA During your visit today, we recorded the following information about you: Peng Zaldivar Sandra 12/21/2024 8:33 AM Signed POPULATION HEALTH NAVIGATION [...] taken: MyChart message sent Navigation Signature: Sandra Peng Zaldivar January 19, 2025 11:38 AM Allergies [...] Visit: Population Health Navigation Outreach [3910] Cmt: Judit Pimentel [place] Prescriptions as of 01/19/2025 - spironolactone (ALDACTONE) [...] by mouth daily before breakfast. - Insulin Col[place], Disposable, (PEN NEEDLE) 32 gauge x 5/32 [...] OPHELIA Latif Problem List As Of Date 12/21/2024 Noted Resolved CAD (coronary artery disease) [I25.10] 09/04/2014 S/P coronary artery stent placement [Z95.5] 09/04/2014 Left bundle branch block (LBBB) on electrocardi*09/04/2014 H/O myocardial infarction, greater than 8 weeks*09/04/2014 Tobacco abuse [Z72.0] 09/04/2014 Obesity [E66.9] 09/04/2014 Status (more content not included)...[facility]03-30-2025 Note HNO ID: [id number] Author: ISSAC XIAO MD Service: ? Author Type: Physician Type: Progress Notes Filed: 12/18/2024 18:34 Note Text: KENAITZE: Venkat Marsh is a 59 year old, [...] that the thyroid FNA cytology/testing 11/09/2024 through [facility] was consistent with a benign follicular nodule. [...] be performed at a later date.[facility] 12-18-2024 History of Present illness Narrative* Issac Xiao MD - 12/18/2024 6:28 PM EDT KENAITZE: Venkat Marsh is a 59 year old, [...] that the thyroid FNA cytology/testing 11/09/2024 through [facility] was consistent with a benign follicular nodule. [...] at a later date. documented in this encounterTrihealth [facility]03-20-2025 Instructions* Patient Instructions* Issac Xiao MD - 12/08/2024 1:29 PM EDT Come in sooner if there are problems or changes. documented in this encounterTrihealth [facility]03-12-2025 Surgery Surgical operation note* Brief Op Note - Hector Fulton MD - 11/30/2024 8:25 AM EDT BRIEF OPERATIVE / PROCEDURE NOTE LOG ID: [id number] SURGERY/PROCEDURE DATE: 11/30/2024 INCISION/PROCEDURE START TIME: INCISION CLOSE/PROCEDURE END TIME: SURGEON(S)/PROCEDURALIST(S) AND MATERIAL HAULER(S): Surgeons and Role: * Hector Fulton MD [...] DATE: November 30, 2024 TIME: 8:26 AM [facility] Work Phone: [phone] Surgical operation note* Brief Op Note - Hector Fulton MD - 11/30/2024 8:25 AM EDT BRIEF OPERATIVE / PROCEDURE NOTE LOG ID: [id number] SURGERY/PROCEDURE DATE: 11/30/2024 INCISION/PROCEDURE START TIME: INCISION CLOSE/PROCEDURE END TIME: SURGEON(S)/PROCEDURALIST(S) AND MATERIAL HAULER(S): Surgeons and Role: * Hetcor Fulton MD - Primary No Additional Staff [...] 2024 TIME: 8:26 AM documented in this encounterTrihealth [facility] Hospital03-12-2025 NoteMultiple deeper levels were evaluated. The tissue is insufficient for evaluation.[facility]:Order Comment: Specimen Type: TISSUE SPECIMENOrdering Facility: [facility] Address: [address] [place], [place] [address]Performed By: #### [id number] ####[facility] LABORATORYCLIA [id number] [place] [address] [facility] 11-24-2024 Telephone encounter Note* Telephone Encounter - Rupert Degroot LPN - 11/24/2024 2:00 PM EST Last Office Visit Date: 10/18/2024 Last Distance Health Visit: 04/19/2024 Has the patient had an appointment at [facility] in the past year, or do they have an upcoming appointment scheduled at [facility]? YES- Continue with refill request. Future Appointment: [...] Sulfamethoxazole-Tr* Rash, Hives, Swelling Trimethoprim Swelling (home) [phone] (cell) The patients preferred pharmacy has been captured for this encounter? yes Request is for script(s) to be escript to mail order [facility]. Rupert Degroot LPN [facility]03-06-2025 Miscellaneous Notes* Telephone Encounter - Rupert Degroot LPN - 11/24/2024 2:00 PM EST Last Office Visit Date: 10/18/2024 Last Distance Health Visit: 04/19/2024 Has the patient had an appointment at [facility] in the past year, or do they have an upcoming appointment scheduled at [facility]? YES- Continue with refill request. Future Appointment: [...] Sulfamethoxazole-Tr* Rash, Hives, Swelling Trimethoprim Swelling (home) [phone] (cell) The patients preferred pharmacy has been captured for this encounter? yes Request is for script(s) to be escript to mail order [facility]. Rupert Degroot LPN documented in this encounterTrihealth Good Samaritan Hospital03-03-2025 NoteHNO ID: [id number] Author: SANDRA ARITA, ? Service: ? Author Type: ? Type: Progress Notes Filed: 11/21/2024 15:27 Note Text: [facility] POPULATION HEALTH NAVIGATION OUTREACH Action/FYI Patient needs to schedule AMW, none in prior year. Please address HCC conditions -Acute on chronic HF, DM w/ Chronic Compl, Spec. Heart Arrhyth, Schizophrenia, COPD/ILD/other chronic lung, Morbid Obesity Patient Identified by Name and : Yes, via phone and via mo9 (moKredit)hart Reason for Outreach Care Gap or Scheduling Wellness Visits HCC or suspected conditions Care Gap Reviewed:: Annual Wellness visit Controlling Blood Pressure Colorectal Cancer Screening Diabetic Eye Exam Outreach Outcome/Action Unable to reach patient: Left message mo9 (moKredit)hart message sent Population Health Navigation Workflow Chart Review Payer: [employer] Navigation Signature: Sandra Arita November 21, 2024 3:21 [facility]03-03-2025 History of Present illness Narrative* Sandra Arita - 11/21/2024 3:21 PM EST [facility] POPULATION HEALTH NAVIGATION OUTREACH Action/FYI Patient needs to schedule AMW, none in prior year. Please address HCC conditions -Acute on chronic HF, DM w/ Chronic Compl, Spec. Heart Arrhyth, Schizophrenia, COPD/ILD/other chronic lung, Morbid Obesity Patient Identified by Name and : Yes, via phone and via mo9 (moKredit)hart Reason for Outreach Care Gap or Scheduling Wellness Visits HCC or suspected conditions Care Gap Reviewed:: Annual Wellness visit Controlling Blood Pressure Colorectal Cancer Screening Diabetic Eye Exam Outreach Outcome/Action Unable to reach patient: Left message mo9 (moKredit)hart message sent Population Health Navigation Workflow Chart Review Payer: [employer] Archive Signature: Sandra Arita November 21, 2024 3:21 PM documented in this encounterTrihealth [facility]03-03-2025 NotePatient Outreach (FAMPWS) VENKAT MARSH ([id number]) 1965 M Date Time Provider Department 11/21/24 [...] and : Yes, via phone and via mo9 (moKredit)hart Reason for Outreach Care Gap or Scheduling Wellness Visits HCC or suspected conditions Care Gap Reviewed:: Annual Wellness visit Controlling Blood Pressure Colorectal Cancer Screening Diabetic Eye Exam Outreach Outcome/Action Unable to reach patient: Left message MyChart message sent Population Health Navigation Workflow Chart [...] Navigation Outreach [3910] Cmt: [employer] Attributed Member- Needs 2024 Medicare Wellness [...] tablet by mouth once daily. - Insulin Colfax, Disposable, (PEN NEEDLE) 32 gauge x 5/32 [...] Bhavya, OA Problem List As Of Date 11/21/2024 Noted [...] [Z91.199] Encounter Status:Closed by SANDRA ARITA on 11/21/24[facility]02-24-2025 Telephone encounter Note* Telephone Encounter - Kiko Montana - 11/14/2024 2:22 PM EST November 14, 2024 2:22 PM Patient advised of BMS message. Kiko Montana [facility]02-24-2025 Miscellaneous Notes* Telephone Encounter - Kiko [...] thyroid results??? Kiko Montana documented in this encounterTrihealth Good Samaritan Hospital02-24-2025 Telephone encounter Note * Telephone Encounter - Issac Xiao MD - 11/14/2024 2:13 PM EST Neck mass FNA cytology showed fibroadipose tissue with focal atypia. They suggested core biopsy. This was ordered. The thyroid FNA results not returned yet. [facility]02-24-2025 Telephone encounter Note* Telephone Encounter - Kiko Montana - 11/14/2024 2:03 PM EST November 14, 2024 2:04 PM Patient advised that per BMS, a CORE BX needs done to get further determination of limp Patient is ok with scheduling another FNA- CORE BX) Is this the neck mass result or thyroid results??? Kiko Montana [facility]02-20-2025 NoteHNO ID: [id number] Author: ISSAC XIAO MD Service: ? Author Type: Physician Type: Progress Notes Filed: 11/10/2024 09:00 Note Text: KENAITZE: Venkat Marsh is a 59 year old, [...] The teeth have some crowns and fillings. CRANE ENGINEER: The mirror exam is prevented by gagging. [...] be performed at a later date.[facility] 11-10-2024 History of Present illness Narrative* Issac Xiao MD - 11/10/2024 8:50 AM EST KENAITZE: Venkat Marsh is a 59 year old, [...] The teeth have some crowns and fillings. CRANE ENGINEER: The mirror exam is prevented by gagging. [...] at a later date. documented in this encounterTrihealth Good Samaritan Hospital02-20-2025 NoteHNO ID: [id number] Author: ISSAC XIAO MD Service: ? Author [...] be performed at a later date.[facility] 11-10-2024 Procedure note* Issac Xiao MD [...] may be performed at a later date. [facility]02-20-2025 Procedure note* Issac Xiao MD - [...] at a later date. documented in this encounterTrihealth Good Samaritan Hospital02-20-2025 Hospital Discharge instructions Patient Education 11/09/2024 [...] your ankles gets worse Dizziness or weakness [id number] [employer]. [address] [place] [address]. All rights reserved. This information is not intended as a substitute for professional medical care. Always follow yourhealthcare professional's instructions. Follow Up Care 11/09/2024 19:45:49 With:GAVIN BETANCUR II Address: [address] [place] [address]- When:2-4 days [facility] 02-19-2025 Note Discharge Instructions Thank you for allowing [facility] to assist you with your healthcare needs. The following is importantdischarge information regarding your hospital visit. What to Do Next Instructions from Your Care Team No qualifying data available. Post Acute Orders No qualifying data available. You Need to Schedule the Following Appointments Follow Up with GAVIN BETANCUR II When:Within 2-4 days Where:[address] [place] [address]- Allergies Bactrim swelling doxycycline Medications Please ask [...] your ankles gets worse Dizziness or weakness [id number] [employer]. [address] [place] [address]. All rights reserved. This information is not intended as a substitute for professional medical care. Always follow yourhealthcare professional's instructions. Additional Information VACCINATE! IT SAVES LIVES! Members of the community who have not yet received the COVID-19 vaccine and would like to receive it can visit one of [facility] vaccine clinics. There are many vaccine clinic locations within the [facility]. For locations and available times, please visit www.gettheshot.coronavirus.[place].gov/. It is important to note that some COVID mobile vaccine clinics are held outdoors and may be canceled in rainy or stormy conditions. To learn more about pediatric vaccinations (ages 5-11), we invite you to visit the [facility] webpage. https://www.[email or web address].org/pages/1638-Fqthm-Czkfooqynve-Pojxsfwbxw-Pueqn-Chf stions.htmlTo learn more about the COVID-19 vaccine, we invite you to visit the CDC website for a list of frequently asked questions. https://www.cdc.gov/coronavirus/2019-ncov/vaccines/faq.html [facility] Patient Portal Access Instructions: Stay connected with your healthcare team and access your personal medical information anytime with the [facility] Patient Portal. If you would like a full copy of your medical records please contact the [facility] Medical Records Department Thursday through Thursday between 8a.m. and 4:30p.m. Please follow the directions below to access the portal: 1.Access the email account you provided upon registration to the [facility].2.Look for an invitation email from [facility].3.Open the email and access the invitation link: Accept Invitation to [facility]4.Fill in the required bee to create your account. Sign into [email or web address].[email or web address] Oy with your username and password that you [...] you will allow to register on the [facility] Patient Portal for access to your information. You can also access the [facility] Patient Portal on the [employer] taco. Simply click on Health Records under [employer] and then click on the [facility] logo. [...] Call your local pharmacy or go to http://bit.ly/3B2Sy6f to find one close to you.3.Make use of household items: Use cat litter or old coffee grounds to dispose medications if other options arenot available. Mix your drugs with these household products, seal them in an airtight container andthrow it into the garbage. Call [facility]: [phone] to be sure your drugs can be [...] aware that I should contact my doctor. 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 Signature: Date/Time: Relationship to Patient: Witness Name/Signature: Date/Time: [facility]02-19-2025 Note* Exam Date Time Procedure Performing Provider Status 11/09/24 9:55 PM XR Chest 1 View Contributor_system, PIERRE POPE; Auth (Verified) [id number] ORIGINAL EXAMINATION: ONE XRAY VIEW OF THE [...] 11/09/2024 10:01:46 PM Ordering Provider: SERGEI DAWN [facility]02-19-2025 Note* Exam Date Time Procedure Performing Provider Status 11/09/24 9:27 PM EKG [ED AOH] - CV SERGEI DAWN DO; Au (Verified) ECG Final Report Sinus rhythm Prolonged PA interval Nonspecific intraventricular conduction delay Probable lateral infarct, age indeterminate Probable anteroseptal infarct, recent Baseline wander in lead(s) V2,V4 Electronic Signature: SERGEI DAWN DO 11/09/2024 21:38:15 [facility]02-19-2025 Instructions* Patient Instructions* Issac Xiao MD - 11/09/2024 12:01 PM EST Expect some mild swelling and bruising at the biopsy sites but it should go away in a couple of days. Contact us if there are problems. documented in this encounterTrihealth Good Samaritan [facility]02-17-2025 NoteHNO ID: [id number] Author: INDER BRUCE MD Service: ? Author [...] 1 tablet by mouth once daily. Insulin [place], Disposable, (PEN NEEDLE) 32 gauge x 5/32 [...] (primary encounter diagnosis) Coronary artery disease involving [place] coronary artery of [place] heart without angina pectoris Plan: ASSESSMENT/PLAN: 1. Neck mass - ICD9: 784.2, ICD10: R22.1 (primary diagnosis) Given the size and location of the mass I did recommend he be evaluated by ENT. Referral made to ENT. - CONSULT TO ENT 2. Coronary artery disease involving [place] coronary artery of [place] heart without angina pectoris - ICD9: 414.01, ICD10: I25.10 I spent 15 minutes in the visit, with more than 50% of the total vcle-ht-iwsb time of the visit in counseling / coordination of care. Inder Bruce M.D., F.A.C.S.[facility]02-17-2025 History of Present illness Narrative* Inder [...] 1 tablet by mouth once daily. Insulin [place], Disposable, (PEN NEEDLE) 32 gauge x 5/32 [...] (primary encounter diagnosis) Coronary artery disease involving [place] coronary artery of [place] heart without angina pectoris Plan: ASSESSMENT/PLAN: 1. Neck mass - ICD9: 784.2, ICD10: R22.1 (primary diagnosis) Given the size and location of the mass I did recommend he be evaluated by ENT. Referral made to ENT. - CONSULT TO ENT 2. Coronary artery disease involving [place] coronary artery of [place] heart without angina pectoris- ICD9: 414.01, ICD10: I25.10 I spent 15 minutes in the visit, with more than 50% of the total yjzt-ak-cwwg time of the visit in counseling / coordination of care. Inder Bruce M.D., F.A.C.S. documented in this encounterTrihealth Good Samaritan Hospital02-12-2025 Telephone encounter Note * Telephone Encounter - Magnolia Mcmahon RN - 11/02/2024 11:07 AM EST Patient notified of results and provider's instructions. Patient verbalizes understanding. Magnolia Mcmahon RN [facility]02-12-2025 Miscellaneous Notes* Telephone Encounter - Magnolia Mcmahon RN - 11/02/2024 11:07 AM EST Patient notified of results and provider's instructions. Patient verbalizes understanding. Magnolia Mcmahon RN * Telephone Encounter - Rbeecca Renteria LPN - 11/02/2024 10:54 AM EST [...] and increased water intake. documented in this encounterTrihealth Good Samaritan Hospital02-12-2025 Telephone encounter Note * Telephone Encounter - Rebecca Renteria LPN - 11/02/2024 10:54 AM EST left for patient to return call to review results and recommendations. Rebecca Renteria LPN ' [facility]02-12-2025 Telephone encounter Note* Telephone Encounter - [...] avoidance of NSAIDs, and increased water intake. [facility]02-11-2025 History of Present illness Narrative* Boo [...] PATIENT PRESENTS WITH AN IMPLANTABLE OR ATTACHED CHAR FILTER TANK TENDER: No ALLERGIES: Reviewed and unchanged CONTRAST ALLERGY: [...] DEPARTMENT: CT; Exam(s) Completed: Neck SIGNATURE: RT Deirdre(Sam) PATIENT NAME: Venkat Marsh DATE: November 01, 2024 TIME: 3:03 PM documented in this encounterTrihealth Good Samaritan Hospital02-11-2025 NoteHNO ID: [id number] Author: BOO DOMÍNGUEZ RT(R) Service: ? Author Type: Casing Crew Type: Progress Notes Filed: 11/01/2024 15:04 Note [...] PATIENT PRESENTS WITH AN IMPLANTABLE OR ATTACHED CHAR FILTER TANK TENDER: No ALLERGIES: Reviewed and unchanged CONTRAST ALLERGY: [...] Marsh DATE: November 01, 2024 TIME: 3:03 [facility]02-06-2025 Instructions* Patient Instructions* Oscar Brizuela MD - 10/27/2024 2:25 PM EST Please call and schedule an appointment with your [facility] clinic. It looks like you are overdue. Please bring your blood pressure cuff and glucose meter to your upcoming appointment. documented in this encounterBenjamin Ville [id number] NoteHNO ID: [id number] Author: OSCAR BRIZUELA MD Service: ? Author [...] [address] Ponce and Dr. Conde. Notes that he stopped taking his Crestor [...] HISTORY Diagnosis Date Bipolar 1 disorder (HCC) psychiatry in [place] CAD S/P percutaneous coronary angioplasty 2011 AR PCI to LAD in 2011. Dr. Ponce CHF (congestive heart failure) ([facility]) Diabetes mellitus (HCC) History of acute myocardial infarction HTN (hypertension) Hypercholesteremia Hypothyroidism Morbid obesity with BMI of 45.0-49.9, adult ([facility]) Non-compliant patient ELBERT (obstructive sleep apnea) Tobacco [...] 1 tablet by mouth once daily. Insulin Colfax, Disposable, (PEN NEEDLE) 32 gauge x 5/32 [...] for 40.5 years (20 (more content not included)...[facility]02-06-2025 History of Present illness Narrative* Oscar Brizuela MD - 10/27/2024 1:45 PM EST Chief Complaint Patient presents with: Establish Care HPI Venkat Marsh is a 59 year old male who presents here today for Above Complaints. Previous PCPDr. Yanique with last OV 10/18/24. Patient also went [...] [address] Ponce and Dr. Conde. Notes that he stopped taking his Crestor [...] HISTORY Diagnosis Date Bipolar 1 disorder (HCC) psychiatry in [place] CAD S/P percutaneous coronary angioplasty 2011 AR PCI to LAD in 2011. Dr. Ponce CHF (congestive heart failure) (HCC) Diabetes mellitus (HCC) History of acute myocardial infarction HTN (hypertension) Hypercholesteremia Hypothyroidism Morbid obesity with BMI of 45.0-49.9, adult (HCC) Non-compliant patient ELBERT (obstructive sleep apnea) Tobacco [...] SUBTOTAL/PARTIAL 2008 TONSILLECTOMY PRIMARY/SECONDARY <AGE 10 Tonsillectomy Family History [...] 1 tablet by mouth once daily. 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 Coronary artery disease involving [place] coronary artery of [place] heart without angina pectoris- ICD9: 414.01, ICD10: [...] ELBERT with patient including: increased risk for AR, CVA, DM, HTN, arrhythmia, memory loss. Discussed [...] which included preparing to see the patient, coae-sy-nrcu patient care, completing clinical documentation, obtaining and/or reviewing separately obtained history, performing a medically appropriate examination, counseling and educating the pat ient/family/caregiver, and ordering medications, tests, or procedures. Oscar Brizuela MD documented in this encounterTrihealth Good Samaritan Hospital01-28-2025 NoteHNO ID: [id number] Author: CLAUS ANDERSON DO Service: ? Author Type: Physician Type: [...] patient's care with the resident. Claus Anderson [facility]01-28-2025 History of Present illness Narrative* Claus Anderson [...] history of coronary artery disease s/p remote AR in 2011 with PCI to LAD,HFrEF (ECHO [...] so. He was also seen in the [place] clinic about 6- 8 weeks ago. He [...] (HCC) CAD S/P percutaneous coronary angioplasty 2011 AR Diabetes mellitus (HCC) History of acute myocardial infarction HTN (hypertension) Hypercholesteremia Hypothyroidism PAST SURGICAL HISTORY Procedure Laterality Date ANGIOPLASTY 2011 [facility] STENT COLONOSCOPY 2009 [place] ARTHROSCOPY/SURGERY 2000 loose [...] 1 tablet by mouth once daily. Insulin [place], Disposable, (PEN NEEDLE) 32 gauge x 5/32 [...] 18, 2024 10:22 AM documented in this encounterTrihealth Good Samaritan Hospital01-28-2025 Telephone encounter Note * Telephone Encounter - Kathia Hoover - 10/18/2024 3:14 PM EST Referral to cardiology entered into the [facility] portal on 10/18/24. Confirmation number [id number]. [facility]01-28-2025 Miscellaneous Notes* Telephone Encounter - Kathia Hoover - 10/18/2024 3:14 PM EST Referral to cardiology entered into the [facility] portal on 10/18/24. Confirmation number [id number]. documented in this encounterTrihealth Good Samaritan Hospital01-28-2025 Telephone encounter Note * Telephone Encounter - Miky العراقي - 10/18/2024 3:05 PM EST Cardioogy referral placed in [facility] portal. Confirmation number: [id number] Miky العراقي, Assistant Hall Director October 18, 2024 3:06 PM [facility]01-28-2025 Miscellaneous Notes* Telephone Encounter - Miky العراقي - 10/18/2024 3:05 PM EST Cardioogy referral placed in [facility] portal. Confirmation number: [id number] Miky العراقي, Assistant Hall Director October 18, 2024 3:06 PM documented in this encounterTrihealth Good Samaritan Hospital01-28-2025 NoteHNO ID: [id number] Author: ORAL ABBASI DO Service: ? Author [...] history of coronary artery disease s/p remote AR in 2011 with PCI to LAD,HFrEF (ECHO [...] so. He was also seen in the [place] clinic about 6- 8 weeks ago. He [...] (HCC) CAD S/P percutaneous coronary angioplasty 2011 AR Diabetes mellitus (HCC) History of acute myocardial infarction HTN (hypertension) Hypercholesteremia Hypothyroidism PAST SURGICAL HISTORY Procedure Laterality Date ANGIOPLASTY 2011 [facility] STENT COLONOSCOPY 2009 [place] ARTHROSCOPY/SURGERY 2000 loose [...] subcutaneously arias (more content not included)...[facility] 10-18-2024 Instructions* Patient Instructions* Inder Bruce MD - 10/18/2024 9:39 AM EST Thank you for coming to see me today. It is my pleasure to take care of you. If you have any questions regarding your visit, please don't hesitate to contact us. Mediterranean Diet Blue Zone Diet documented in this encounterTrihealth Good Samaritan Hospital01-28-2025 NoteHNO ID: [id number] Author: INDER BRUCE MD Service: ? Author [...] (HCC) CAD S/P percutaneous coronary angioplasty 2011 AR Diabetes mellitus (HCC) History of acute myocardial infarction HTN (hypertension) Hypercholesteremia Hypothyroidism PAST SURGICAL HISTORY Procedure Laterality Date ANGIOPLASTY 2011 [facility] STENT COLONOSCOPY 2009 [place] ARTHROSCOPY/SURGERY 2000 loose [...] hours. Give with each insulin administration. Insulin Col[place], Disposable, (PEN NEEDLE) 32 gauge x 5/32 [...] fevers NECK: (more content not included)...[facility]01-28-2025 History of Present illness Narrative* Inder [...] (HCC) CAD S/P percutaneous coronary angioplasty 2011 AR Diabetes mellitus (HCC) History of acute myocardial infarction HTN (hypertension) Hypercholesteremia Hypothyroidism PAST SURGICAL HISTORY Procedure Laterality Date ANGIOPLASTY 2011 [facility] STENT COLONOSCOPY 2009 [place] ARTHROSCOPY/SURGERY 2000 loose [...] hours. Give with each insulin administration. Insulin [place], Disposable, (PEN NEEDLE) 32 gauge x 5/32 [...] COPD, dyspnea or shortness of breath CARDIOVASCULAR: AR GI: No nausea, vomiting, or diarrhea : [...] (primary encounter diagnosis) Coronary artery disease involving [place] coronary artery of [place] heart without angina pectoris S/p coronary artery stent placement Primary hypertension Class 3 severe obesity due to excess calories with serious comorbidity and body mass index (bmi) of45.0 to 49.9 in adult ([facility]) Plan: ASSESSMENT/PLAN: 1. Neck mass - ICD9: 784.2, ICD10: R22.1 (primary diagnosis) I recommend getting a CT of the neck to better characterize the lesion. He is agreeable. - CT NECK SOFT TISSUE W IVCON - CREATININE BLD 2. Coronary artery disease involving [place] coronary artery of [place] heart without angina pectoris- ICD9: 414.01, ICD10: I25.10 3. S/P coronary artery stent placement - ICD9: V45.82, ICD10: Z95.5 4. Primary hypertension - ICD9: 401.9, ICD10: I10 5. Class 3 severe obesity due to excess calories with serious comorbidity and body mass index (BMI)of 45.0 to 49.9 in adult ([facility]) - ICD9: 278.01, V85.42, ICD10: E66.813, Z68.42, E66.01 Stable Medical Decision Making: Problems: Moderate: New problem with uncertain prognosis Data: Unique test result(s) reviewed: 1 Unique test(s) ordered: 1 Risk: Low: Low risk from testing/treatment Medical Decision Making Level: 3 - Low Inder Bruce M.D., F.A.C.S. documented in this encounterKimberly Ville [id number] Telephone encounter Note * Telephone Encounter - Bakari Dumont - 10/14/2024 8:37 AM EST Referral placed in portal Confirmation number: [id number] Patient has been made aware and will call to get scheduled. Bakari Dumont Assistant Hall Director I October 14, 2024 8:37 AM [facility]01-24-2025 Miscellaneous Notes* Telephone Encounter - Bakari Dumont - 10/14/2024 8:37 AM EST Referral placed in portal Confirmation number: [id number] Patient has been made aware and will call to get scheduled. Bakari Dumont Assistant Hall Director I October 14, 2024 8:37 AM * [...] and it is still bothering him. Miky العراقي Assistant Hall Director October 11, 2024 8:52 AM documented in this encounterTrihealth Good Samaritan Hospital01-23-2025 Telephone encounter Note * Telephone Encounter - Gavin Betancur DO - 10/13/2024 10:13 PM EST Consult placed to general surgery for possible surgical removal of neck lipoma. [facility]01-23-2025 Telephone encounter Note* Telephone Encounter - Jelean Oleary - 10/13/2024 3:43 PM EST Faxed Diagnosis verification letter To [facility] on 10/13/24 - Attn Leeann ph [phone] Scanned fax confirmation into [facility] on 10/13/24 Jelena Oleary October 13, 2024 3:50 PM [facility]01-23-2025 Miscellaneous Notes* Telephone Encounter - Lashanda Olearykki - 10/13/2024 3:43 PM EST Faxed Diagnosis verification letter To [facility] on 10/13/24 - Attn Leeann ph [phone] Scanned fax confirmation into [facility] on 10/13/24 Jelena Oleary October 13, 2024 3:50 PM documented in this encounterTrihealth Good Samaritan Hospital01-22-2025 Telephone encounter Note * Telephone Encounter - Lashanda Olearykki - 10/12/2024 3:22 PM EST I called Leeann back on 10/12/24 3pm - let her know I received the release of records I scanned both forms into [facility] - we have release from [facility] to [facility] and release to Clinic form I also called Venkat mullins- and spoke with him on 10/12/24 explained I don't need to send him our release of record form I received the proper one from Leeann I put form to be completed into Dr Fong mailbox today - there is an extra blank copy scanned into epic Jelena Oleary October 12, 2024 3:27 PM [facility]01-22-2025 Miscellaneous Notes* Telephone Encounter - Jelena Oleary - 10/12/2024 3:22 PM EST I called Leeann back on 10/12/24 3pm - let her know I received the release of records I scanned both forms into epic - we have release [facility] to [facility] and release to Clinic form I also called Venkat back- and spoke with him on 10/12/24 explained I don't need to send him our release of record form I received the proper one from Leeann I put form to be completed into Dr Fong mailbox today - there is an extra blank copy scanned into [employer] Jelena Oleary October 12, 2024 3:27 PM * Telephone Encounter - Jelena Oleary - 10/12/2024 11:42 AM EST Continued encounter from 10/07/24 - Leeann called again & I confirmed with Leeann that we received the document she would like Dr Fong to complete- I noticed that we don't have a release of records form from our patient . I calledLeeann on 10/12/24 at 11:40 am and left a detailed message - we need written permission to release records to [facility]. Please call back ( I still need [facility] address phone number - etc I think I antoine ve Leeann cell #) Does she want progress notes regarding patient or just 1 pg diagnosis form completed. I also called and spoke to patient on 10/12/24 At 11:30 am he thought [facility] already took care of this (release) I told Venkat I will upload Release of Record form into [employer] for him to print out and sign thisafternoon if I don't hear back [facility] October 12, 2024 12:04 PM documented in this encounterTrihealth Good Samaritan Hospital01-22-2025 NoteHNO ID: [id number] Author: SANDRA ARITA, ? Service: ? Author Type: ? Type: Progress Notes Filed: 10/12/2024 13:16 Note Text: [facility] POPULATION HEALTH NAVIGATION OUTREACH [facility] U[facility]ADED HOSP 04-27-2024 Patient Identified by Name and : Yes, via EPIC - no outreach needed Reason for Outreach Care Gap or Scheduling Wellness Visits Care Gap Reviewed:: [facility] Outreach Outcome/Action Population Health Navigation Workflow Cute PDF and Portal Submission Payer: [employer] Navigation Signature: Sandra Arita October 12, 2024 1:15 [facility]01-22-2025 History of Present illness Narrative* Sandra Arita - 10/12/2024 1:15 PM EST [facility] POPULATION HEALTH NAVIGATION OUTREACH Action/FYI [facility] MRP 04-15-2024 UPLOADED HOSP FU 04-27-2024 Patient Identified by Name and : Yes, via EPIC - no outreach needed Reason for Outreach Care Gap or Scheduling Wellness Visits Care Gap Reviewed:: [facility] Outreach Outcome/Action Population Health Navigation Workflow Cute PDF and Portal Submission Payer: [employer] Navigation Signature: Sandra Arita October 12, 2024 1:15 PM documented in this encounterTrihealth Good Samaritan Hospital01-22-2025 Telephone encounter Note * Telephone Encounter - Jelena Oleary - 10/12/2024 11:42 AM EST Continued encounter from 10/07/24 - Leeann called again & I confirmed with Leeann that we received the document she would like Dr Fong to complete- I noticed that we don't have a release of records form from our patient . I calledDenise on 10/12/24 at 11:40 am and left a detailed message - we need written permission to release records to [facility]. Please call back ( I still need [facility] address phone number - etc I think I antoine ve Leeann cell #) Does she want progress notes regarding patient or just 1 pg diagnosis form completed. I also called and spoke to patient on 10/12/24 At 11:30 am he thought [facility] already took care of this (release) I told Venkat I will upload Release of Record form into [employer] for him to print out and sign thisafternoon if I don't hear back from Leeann at Annemarie Oleary October 12, 2024 12:04 PM [facility]01-22-2025 NotePatient Outreach (AGACM) VENKAT MARSH ([id number]) 1965 M Date Time Provider Department 10/12/24 SANDRA ARITA [facility] During your visit today, we recorded the following information about you: Sandra Arita 10/12/2024 1:16 PM Signed [facility] POPULATION HEALTH NAVIGATION OUTREACH Action/FYI [facility] 04-15-2024 UPLOADED HOSP FU 04-27-2024 Patient Identified by Name and : Yes, via EPIC - no outreach needed Reason for Outreach Care Gap or Scheduling Wellness Visits Care Gap Reviewed:: [facility] Outreach Outcome/Action Population Health Navigation Workflow Cute [...] tablet by mouth once daily. - Insulin Colfax, Disposable, (PEN NEEDLE) 32 gauge x 5/32 [...] OPHELIA Crooks Problem List As Of Date 10/12/2024 Noted [...] 04/15/2024 Enc (more content not included)...[facility]01-21-2025 Telephone encounter Note* Telephone Encounter - Deidre Carreno LPN - 10/11/2024 1:27 PM EST Last Office Visit Date: 04/11/2024 Last [facility] Health Visit: 04/19/2024 Has the patient had an appointment at [facility] in the past year, or do they have an upcoming appointment scheduled at [facility]? YES- Continue with refill request. Future Appointment: 10/11/2024 Patient [employer] message requesting the following refill Refill(s) Requested: [...] 1 tablet by mouth once daily. Insulin Colfax, Disposable, (PEN NEEDLE) 32 gauge x 5/32 [...] Lisinopril Cough Sulfamethoxazole-Tr* Rash, Hives, Swelling (home) [phone] (cell) The patients preferred pharmacy has been captured for this encounter? yes Request is for script(s) to be escript to pharmacy. Deidre Carreno LPN [facility]01-21-2025 Miscellaneous Notes* Telephone Encounter - Deidre Carreno LPN - 10/11/2024 1:27 PM EST Last Office Visit Date: 04/11/2024 Last [facility] Health Visit: 04/19/2024 Has the patient had an appointment at [facility] in the past year, or do they have an upcoming appointment scheduled at [facility]? YES- Continue with refill request. Future Appointment: 10/11/2024 Patient [employer] message requesting the following refill Refill(s) Requested: [...] 1 tablet by mouth once daily. Insulin Colfax, Disposable, (PEN NEEDLE) 32 gauge x 5/32 [...] Lisinopril Cough Sulfamethoxazole-Tr* Rash, Hives, Swelling (home) [phone] (cell) The patients preferred pharmacy has been captured for this encounter? yes Request is for script(s) to be escript to pharmacy. Deidre Carreno LPN documented in this encounterTrihealth Good Samaritan Hospital01-21-2025 Telephone encounter Note * Telephone Encounter - Vy Joseph RN - 10/11/2024 10:14 AM EST Patient's request for medication is as follows: Requested Prescriptions Refused Prescriptions Disp Refills spironolactone (ALDACTONE) 25 mg tablet 90 tablet 0 Sig: Take 1 tablet by mouth once daily. Prescription(s) as above. Please process accordingly. Vy Joseph RN [facility]01-21-2025 Miscellaneous Notes* Telephone Encounter - Vy Joseph RN - 10/11/2024 10:14 AM EST Patient's request for medication is as follows: Requested Prescriptions Refused Prescriptions Disp Refills spironolactone (ALDACTONE) 25 mg tablet 90 tablet 0 Sig: Take 1 tablet by mouth once daily. Prescription(s) as above. Please process accordingly. Vy Joseph RN documented in this encounterTrihealth Good Samaritan Hospital01-21-2025 Telephone encounter Note * Telephone Encounter - Miky العراقي - 10/11/2024 8:49 AM EST Patient called requesting a referral to a specialist for the large bump on the back on his neck. Patient states he has imaging in October last year and it is still bothering him. Miky العراقي, Assistant Hall Director October 11, 2024 8:52 AM [facility]01-21-2025 NotePatient Outreach (INTMMN) VENKAT MARSH ([id number]) 1965 M Date Time Provider Department 10/11/24 [...] by: Cristobal Ames, RN - Fully Assessed Visit Diagnosis:Mixed hyperlipidemia [E78.2] Order(s):LIPID PANEL BASIC [SQLIPB] Order #: [id number] FUTURE Prescriptions as of 10/14/2024 - albuterol [...] tablet by mouth once daily. - Insulin Colfax, Disposable, (PEN NEEDLE) 32 gauge x 5/32 [...] 04/15/2024 Encounter Status:Closed by GIL CAROLINA on 10/14/24[facility] 10-07-2024 Telephone encounter Note* Telephone Encounter - Jelena Oleary - 10/07/2024 10:29 AM EST Leeann (Recovery Mgr) from [facility] [phone] Called on 10/07/24 left a message on voicemail Asking if we received a fax from her She needs diagnostic confirmation sheet completed - I explained usually a 48-72 response time-she had the wrong fax number - I gave her the correct fax number- she will re-fax Jelena Oleary October 07, 2024 10:36 AM [facility]01-17-2025 Miscellaneous Notes* Telephone Encounter - Jelena Oleary - 10/07/2024 10:29 AM EST Leeann (Recovery Mgr) from [facility] [phone] Called on 10/07/24 left a message on voicemail Asking if we received a fax from her She needs diagnostic confirmation sheet completed - I explained usually a 48-72 response time-she had the wrong fax number - I gave her the correct fax number- she will re-fax Jelenajae Oleary October 07, 2024 10:36 AM documented in this encounterTrihealth Good Samar[facility]01-14-2025 Telephone encounter Note * Telephone Encounter - Jelena Oleary - 10/04/2024 [...] Jelena Oleary October 04, 2024 10:17 AM [facility]01-14-2025 Miscellaneous Notes* Telephone Encounter - Jelena Oleary - 10/04/2024 10:16 AM EST No Show Documentation Venkat Krzysztof Salma no showed for an appointment on [...] 04, 2024 10:17 AM documented in this encounterTrihealth Good Samaritan Hospital12-16-2024 Telephone encounter Note * Telephone Encounter [...] Lisinopril Cough Sulfamethoxazole-Tr* Rash, Hives, Swelling (home) [phone] (cell) Last Office Visit Date: 02/03/2024 Last Distance Health Visit: Visit date not found Future Appointment: Visit date not found The patients preferred pharmacy has been captured for this encounter? yes [facility] [employer] [facility] [address] - [place] [address] [address] [facility] [phone] [address] [facility] [id number] Request is for script(s) to be escript to pharmacy. Homa Desai [facility]12-16-2024 Miscellaneous Notes* Telephone Encounter - Homa [...] Lisinopril Cough Sulfamethoxazole-Tr* Rash, Hives, Swelling (home) [phone] (cell) Last Office Visit Date: 02/03/2024 Last [facility] Health Visit: Visit date not found Future Appointment: Visit date not found The patients preferred pharmacy has been captured for this encounter? yes [facility] [address] - [place] [address] [address] - [phone] [address] [facility] [id number] Request is for script(s) to be escript to pharmacy. Homa Desai documented in this encounterTrihealth Good Samaritan Hospital11-11-2024 Telephone encounter Note * Telephone Encounter - Sharon Ponce RPh - 08/01/2024 11:51 AM EST Spoke with patient and counseled that insulin should not be frozen and that he should not use as itis likely not going to be effect. Discussed with patient on the phone who read back instructions and verbalized understanding. Sharon Ponce RPh [facility] Work Phone: 1(647) 155-485411-11-2024 Miscellaneous Notes* Telephone Encounter - Sharon Ponce [...] D to answer his questions. Bakari Dumont Assistant Hall Director I August 01, 2024 11:48 AM * [...] call back with an update. Bakari Dumont Assistant Hall Director I July 25, 2024 4:09 PM documented in this encounterTrihealth Good Samaritan Hospital11-11-2024 Telephone encounter Note * Telephone Encounter [...] D to answer his questions. Bakari Dumont Assistant Hall Director I August 01, 2024 11:48 AM [facility]11-08-2024 Telephone encounter Note* Telephone Encounter - Gavin [...] also consult diabetes education for further help. [facility]11-04-2024 Telephone encounter Note* Telephone Encounter - Bakari Dumont - 07/25/2024 4:09 PM EST Last Office Visit Date: 04/11/2024 Last [facility] Health Visit: 04/19/2024 Has the patient had an appointment at [facility] in the past year, or do they have an upcoming appointment scheduled at [facility]? YES- Continue with refill request. Future Appointment: Visit date not found Patient called requesting the following refill Refill(s) Requested: Requested Prescriptions Pending Prescriptions Disp Refills metoprolol succinate ER (TOPROL XL) 25 mg 24 hr tablet 30 tablet 2 Sig: Take 1 tablet by mouth once daily. Insulin Colfax, Disposable, (PEN NEEDLE) 32 gauge x 5/32 [...] Lisinopril Cough Sulfamethoxazole-Tr* Rash, Hives, Swelling (home) [phone] (cell) The patients preferred pharmacy has been captured for this encounter? yes Request is for script(s) to be escript to pharmacy. Bakari Dumont [facility]11-04-2024 Miscellaneous Notes* Telephone Encounter - Bakari Dumont - 07/25/2024 4:09 PM EST Last Office Visit Date: 04/11/2024 Last [facility] Health Visit: 04/19/2024 Has the patient had an appointment at [facility] in the past year, or do they have an upcoming appointment scheduled at [facility]? YES- Continue with refill request. Future Appointment: Visit date not found Patient called requesting the following refill Refill(s) Requested: Requested Prescriptions Pending Prescriptions Disp Refills metoprolol succinate ER (TOPROL XL) 25 mg 24 hr tablet 30 tablet 2 Sig: Take 1 tablet by mouth once daily. Insulin Colfax, Disposable, (PEN NEEDLE) 32 gauge x 5/32 [...] Lisinopril Cough Sulfamethoxazole-Tr* Rash, Hives, Swelling (home) [phone] (cell) The patients preferred pharmacy has been captured for this encounter? yes Request is for script(s) to be escript to pharmacy. Bakari Dumont documented in this encounterTrihealth Good Samaritan Hospital11-04-2024 Telephone encounter Note * Telephone Encounter - Bakari Dumotn - 07/25/2024 4:06 PM EST Patient called in stating his insulin froze in the fridge patient is unsure if he can use it. Also said when he picked up his insulin he thought it was suppose to be the pen not the vial he not sure of how to use them. Patient would like a call back with an update. Bakari Dumont Assistant Hall Director I July 25, 2024 4:09 PM [facility]10-31-2024 Telephone encounter Note* Telephone Encounter - Bakari Dumont - 07/21/2024 10:27 AM EDT LVM for patient to give us a call back regarding the message he left for us to give him a call. Bakari Dumont Assistant Hall Director I July 21, 2024 10:27 AM [facility]10-31-2024 Miscellaneous Notes* Telephone Encounter - Bakari Dumont - 07/21/2024 10:27 AM EDT LVM for patient to give us a call back regarding the message he left for us to give him a call. Bakari Dumont Assistant Hall Director I July 21, 2024 10:27 AM documented in this encounterTrihealth Good Samaritan Hospital10-24-2024 NoteHNO ID: [id number] Author: DENISE CORONADO RN Service: ? Author Type: Registered Nurse Type: Progress Notes Filed: 07/14/2024 17:13 Note Text: [facility] TRANSITIONAL CARE MANAGEMENT (TCM) FOLLOW-UP NOTE Provider Action/FYI: Patient identified by name and date of : YES Spoke to: N/A Diagnosis: CHF Summary: TCM follow up call, no answer. Unable to leave a message. Health leads screening tool questions performed? N/A N/A Concerns: N/A Train Conductor plan for next outreach: No further follow-up needed at this time. Signature: Denise Coronado RN [facility] 14[facility] History of Present illness Narrative* Denise Coronado RN - 07/14/2024 5:12 PM EDT [facility] TRANSITIONAL CARE MANAGEMENT (TCM) FOLLOW-UP NOTE Provider Action/FYI: Patient identified by name and date of : YES Spoke to: N/A Diagnosis: CHF Summary: TCM follow up call, no answer. Unable to leave a message. Health leads screening tool questions performed? N/A N/A Concerns: N/A Train Conductor plan for next outreach: No further follow-up needed at this time. Signature: Denise Coronado RN July 14, 2024 documented in this encounterTrihealth Good Samaritan Hospital10-24-2024 NotePatient Outreach ([facility]) VENKAT MARSH ([id number]) 1965 M Date Time Provider Department 07/14/24 DENISE CORONADO [facility] During your visit today, we [...] tool questions performed? N/A N/A Concerns: N/A Train Conductor plan for next outreach: No further follow-up [...] needed for wheezing/shortness of breath. - Insulin Colfax, Disposable, (PEN NEEDLE) 32 gauge x 5/32 [...] Latif, OA Problem List As Of Date 07/14/2024 [...] Status:Closed by DENISE CORONADO on 07/14/24[facility]10-17-2024 Telephone encounter Note* Telephone Encounter - Deidre Carreno LPN - 07/07/2024 1:29 PM EDT Last Office Visit Date: 04/11/2024 Last Distance Health Visit: 04/19/2024 Has the patient had an appointment at [facility] in the past year, or do they have an upcoming appointment scheduled at [facility]? YES- Continue with refill request. Future Appointment: Visit date not found Patient mo9 ([employer]hart message requesting the following refill Refill(s) Requested: Requested Prescriptions Pending Prescriptions Disp Refills dulaglutide (TRULICITY) 0.75 mg/0.5 mL pen injector 6 mL 0 Sig: Inject 0.75 mg subcutaneously one time a week. Monitor bs closely and keep food log ALLERGIES Allergen Reactions Amoxicillin-Pot Cla* Anaphylaxis, Swelling Metformin Diarrhea Lisinopril Cough Sulfamethoxazole-Tr* Rash, Hives, Swelling (home) [phone] (cell) The patients preferred pharmacy has been captured for this encounter? yes Request is for script(s) to be escript to pharmacy. Deidre Carreno LPN [facility]10-17-2024 Miscellaneous Notes* Telephone Encounter - Deidre Carreno LPN - 07/07/2024 1:29 PM EDT Last Office Visit Date: 04/11/2024 Last Distance Health Visit: 04/19/2024 Has the patient had an appointment at [facility] in the past year, or do they have an upcoming appointment scheduled at [facility]? YES- Continue with refill request. Future Appointment: Visit date not found Patient [employer] message requesting the following refill Refill(s) Requested: Requested Prescriptions Pending Prescriptions Disp Refills dulaglutide (TRULICITY) 0.75 mg/0.5 mL pen injector 6 mL 0 Sig: Inject 0.75 mg subcutaneously one time a week. Monitor bs closely and keep food log ALLERGIES Allergen Reactions Amoxicillin-Pot Cla* Anaphylaxis, Swelling Metformin Diarrhea Lisinopril Cough Sulfamethoxazole-Tr* Rash, Hives, Swelling (home) [phone] (cell) The patients preferred pharmacy has been captured for this encounter? yes Request is for script(s) to be escript to pharmacy. Deidre Carreno LPN documented in this encounterTrihealth Good Samaritan Hospital10-17-2024 Telephone encounter Note * Telephone Encounter - Deidre Carreno LPN - 07/07/2024 1:27 PM EDT Last Office Visit Date: 04/11/2024 Last [facility] Health Visit: 04/19/2024 Has the patient had an appointment at [facility] in the past year, or do they have an upcoming appointment scheduled at [facility]? YES- Continue with refill request. Future Appointment: [...] as needed for wheezing/shortness of breath. Insulin Colfax, Disposable, (PEN NEEDLE) 32 gauge x 532 100 Each 1 Sig: Inject 1 Each [...] Lisinopril Cough Sulfamethoxazole-Tr* Rash, Hives, Swelling (home) [phone] (cell) The patients preferred pharmacy has been captured for this encounter? yes Request is for script(s) to be escript to pharmacy. Deidre Carreno LPN [facility]10-17-2024 Miscellaneous Notes* Telephone Encounter - Deidre Carreno LPN - 07/07/2024 1:27 PM EDT Last Office Visit Date: 04/11/2024 Last [facility] Health Visit: 04/19/2024 Has the patient had an appointment at [facility] in the past year, or do they have an upcoming appointment scheduled at [facility]? YES- Continue with refill request. Future Appointment: [...] as needed for wheezing/shortness of breath. Insulin Colfax, Disposable, (PEN NEEDLE) 32 gauge x 5/32 [...] Lisinopril Cough Sulfamethoxazole-Tr* Rash, Hives, Swelling (home) [phone] (cell) The patients preferred pharmacy has been captured for this encounter? yes Request is for script(s) to be escript to pharmacy. Deidre Carreno LPN documented in this encounterTrihealth Good Samaritan Hospital10-17-2024 Telephone encounter Note * Telephone Encounter - Deidre Carreno LPN - 07/07/2024 1:26 PM EDT New pharmacy. Last Office Visit Date: 04/11/2024 Last Distance Health Visit: 04/19/2024 Has the patient had an appointment at [facility] in the past year, or do they have an upcoming appointment scheduled at [facility]? YES- Continue with refill request. Future Appointment: 07/07/2024 Patient [employer] message requesting the following refill Refill(s) Requested: Requested Prescriptions Pending Prescriptions Disp Refills rosuvastatin (CRESTOR) 10 mg tablet 90 tablet 3 Sig: Take 1 tablet by mouth daily at bedtime. ALLERGIES Allergen Reactions Amoxicillin-Pot Cla* Anaphylaxis, Swelling Metformin Diarrhea Lisinopril Cough Sulfamethoxazole-Tr* Rash, Hives, Swelling (home) [phone] (cell) The patients preferred pharmacy has been captured for this encounter? yes Request is for script(s) to be escript to pharmacy. Deidre Carreno LPN [facility]10-17-2024 Miscellaneous Notes* Telephone Encounter - Deidre Carreno LPN - 07/07/2024 1:26 PM EDT New pharmacy. Last Office Visit Date: 04/11/2024 Last Distance Health Visit: 04/19/2024 Has the patient had an appointment at [facility] in the past year, or do they have an upcoming appointment scheduled at [facility]? YES- Continue with refill request. Future Appointment: 07/07/2024 Patient MyChart message requesting the following refill Refill(s) Requested: Requested Prescriptions Pending Prescriptions Disp Refills rosuvastatin (CRESTOR) 10 mg tablet 90 tablet 3 Sig: Take 1 tablet by mouth daily at bedtime. ALLERGIES Allergen Reactions Amoxicillin-Pot Cla* Anaphylaxis, Swelling Metformin Diarrhea Lisinopril Cough Sulfamethoxazole-Tr* Rash, Hives, Swelling (home) [phone] (cell) The patients preferred pharmacy has been captured for this encounter? yes Request is for script(s) to be escript to pharmacy. Deidre Carreno LPN documented in this encounterTrihealth Good Samaritan Hospital10-17-2024 Telephone encounter Note * Telephone Encounter - Kathryn Maria PSS - 07/07/2024 9:47 AM EDT Patient MyChart message requesting the following refill Refill(s) Requested: Requested Prescriptions Pending Prescriptions Disp Refills mirtazapine (REMERON) 15 mg tablet 30 tablet 2 Sig: Take 1 tablet by mouth daily at bedtime. ALLERGIES Allergen Reactions Amoxicillin-Pot Cla* Anaphylaxis, Swelling Metformin Diarrhea Lisinopril Cough Sulfamethoxazole-Tr* Rash, Hives, Swelling (home) [phone] (cell) Last Office Visit Date: 02/03/2024 Last [facility] Health Visit: Visit date not found Future Appointment: Visit date not found The patients preferred pharmacy has been captured for this encounter? yes Request is for script(s) to be escript to pharmacy. MAX Rashid [facility]10-17-2024 Miscellaneous Notes* Telephone Encounter - Kathryn Maria PSS - 07/07/2024 9:47 AM EDT Patient MyChart message requesting the following refill Refill(s) Requested: Requested Prescriptions Pending Prescriptions Disp Refills mirtazapine (REMERON) 15 mg tablet 30 tablet 2 Sig: Take 1 tablet by mouth daily at bedtime. ALLERGIES Allergen Reactions Amoxicillin-Pot Cla* Anaphylaxis, Swelling Metformin Diarrhea Lisinopril Cough Sulfamethoxazole-Tr* Rash, Hives, Swelling (home) [phone] (cell) Last Office Visit Date: 02/03/2024 Last [facility] Health Visit: Visit date not found Future Appointment: Visit date not found The patients preferred pharmacy has been captured for this encounter? yes Request is for script(s) to be escript to pharmacy. MAX Rashid documented in this encounterTrihealth Good Samaritan [facility]10-17-2024 Telephone encounter Note * Telephone Encounter [...] above. Please process accordingly. Ana Barney LPN [facility]10-17-2024 Miscellaneous Notes* Telephone Encounter - Ana [...] accordingly. Ana Barney LPN documented in this encounterTrihealth Good Samaritan Hospital10-17-2024 Telephone encounter Note * Telephone Encounter - Sandra Abbasi LPN - 07/07/2024 9:07 AM EDT Patient's request for medication is as follows: Requested Prescriptions Pending Prescriptions Disp Refills spironolactone (ALDACTONE) 25 mg tablet 90 tablet 0 Sig: Take 1 tablet by mouth once daily. Last seen 06/26/2023- transferred to [facility] to schedule overdue follow up appointment. Prescription(s) as above. Please process accordingly. Sandra Abbasi LPN [facility]10-17-2024 Miscellaneous Notes* Telephone Encounter - Sandra Abbasi LPN - 07/07/2024 9:07 AM EDT Patient's request for medication is as follows: Requested Prescriptions Pending Prescriptions Disp Refills spironolactone (ALDACTONE) 25 mg tablet 90 tablet 0 Sig: Take 1 tablet by mouth once daily. Last seen 06/26/2023- transferred to [facility] to schedule overdue follow up appointment. Prescription(s) as above. Please process accordingly. Sandra Abbasi LPN documented in this encounterTrihealth Good Samaritan Hospital09-17-2024 NoteHNO ID: [id number] Author: DENISE CORONADO RN Service: ? Author [...] go for Care Concerns: Labs, appointment 06/14 Train Conductor plan for next outreach: Will follow-up in 3 weeks Signature: Denise Coronado RN June 07[facility] History of Present illness Narrative* Denise [...] go for Care Concerns: Labs, appointment 06/14 Train Conductor plan for next outreach: Will follow-up in 3 weeks Signature: Denise Coronado RN June 07, 2024 documented in this encounterTrihealth Good Samaritan Hospital09-17-2024 NotePatient Outreach ([facility]) VENKAT MARSH ([id number]) 1965 M Date Time Provider Department 06/07/24 DENISE CORONADO [facility] During your visit today, we [...] go for Care Concerns: Labs, appointment 06/14 Train Conductor plan for next outreach: Will follow-up in [...] needed for wheezing/shortness of breath. - Insulin Colfax, Disposable, (PEN NEEDLE) 32 gauge x 5/32 [...] OPHELIA Crooks Problem List As Of Date 06/07/2024 Noted [...] (congestive) hear (more content not included)...[facility]09-16-2024 Telephone encounter Note* Telephone Encounter - Jessica Fitzgerald - 06/06/2024 9:10 AM EDT pt called to reschedule appointment when i told him the next available would be july he said hewould find another doctor. Thanks Jessica Fitzgerald [facility]09-16-2024 Telephone encounter Note* Telephone Encounter - Sandra Abbasi LPN - 06/06/2024 8:32 AM EDT Spoke with patient about test results and recommendation to follow up with PCP. Patient verbalizes understanding and is agreeable. Sandra Abbasi LPN [facility]09-16-2024 Miscellaneous Notes* Telephone Encounter - Sandra [...] Thanks, Yousuf Ponce MD documented in this encounterTrihealth Good Samaritan Hospital09-16-2024 Telephone encounter Note * Telephone Encounter - Sandra Abbasi LPN - 06/06/2024 8:31 AM EDT ----- Message from Yousuf Ponce MD sent at 06/06/2024 8:30 AM EDT ----- Can you please let Mr. Marsh know his CBC revealed mildly elevated white count and elevated hemoglobin level. I would recommend he follow up with his PCP in this regards. Thanks, Yousuf Ponce MD [facility]09-13-2024 Telephone encounter Note* Telephone Encounter - Josette Mcgee RN - 06/03/2024 1:20 PM EDT Call placed. LM requesting for patient to return call. Office number left at this time. [facility]09-13-2024 Miscellaneous Notes* Telephone Encounter - Josette [...] is stable BMP ordered Boo Kiran APRN.CNP documented in this encounterTrihealth Good Samaritan Hospital09-13-2024 Telephone encounter Note * Telephone Encounter [...] is stable BMP ordered Boo Kiran APRN.CNP [facility]09-04-2024 NoteHNO ID: [id number] Author: DENISE COORNADO, RN Service: ? Author Type: Registered Nurse [...] education/Where to go for Care Concerns: appointment Train Conductor plan for next outreach: Will follow-up in 2 weeks Signature: Denise Coronado RN May 25[facility] History of Present illness Narrative* Denise [...] education/Where to go for Care Concerns: appointment Train Conductor plan for next outreach: Will follow-up in 2 weeks Signature: Denise Coronado RN May 25, 2024 documented in this encounterTrihealth Good Samaritan Hospital09-04-2024 NotePatient Outreach ([facility]) VENKAT MARSH ([id number]) 1965 M Date Time Provider Department 05/25/24 DENISE CORONADO [facility] During your visit today, we recorded the following information about you: Denise Coronado RN 05/25/2024 4:43 PM Signed AG TRANSITIONAL CARE MANAGEMENT (TCM) [...] education/Where to go for Care Concerns: appointment Train Conductor plan for next outreach: Will follow-up in [...] needed for wheezing/shortness of breath. - Insulin Colfax, Disposable, (PEN NEEDLE) 32 gauge x 5/32 [...] Latif OA Problem List As Of Date 05/25/2024 Noted [...] of bot (more content not included)...[facility] 05-22-2024 Miscellaneous Notes* Telephone Encounter - Jessica Fitzgerald - 06/06/2024 9:10 AM EDT pt called to reschedule appointment when i told him the next available would be july he said hewould find another doctor. Thanks Jessica Fitzgerald documented in this encounterTrihealth Good Samaritan Hospital08-26-2024 Telephone encounter Note * Telephone Encounter [...] obtained in 2 weeks at laboratory in [place] STOP Losartan. Explanation that Entresto and Losartan contain the same medication and Losartan pills should be brought to a pharmacy that takes in old medicine. Patient stated understanding. Of the above and repeated instructions in own wording [facility]08-26-2024 Miscellaneous Notes* Telephone Encounter - Josette [...] obtained in 2 weeks at laboratory in [place] STOP Losartan. Explanation that Entresto and Losartan contain the same medication and Losartan pills should be brought to a pharmacy that takes in old medicine. Patient stated understanding. Of the above and repeated instructions in own wording documented in this encounterTrihealth Good Samaritan Hospital08-23-2024 Telephone encounter Note * Telephone Encounter - Josette Mcgee RN - 05/13/2024 9:56 AM EDT Call placed to patient to verify that he picked up the Spironolactone and if he had started taking both Eliquis and Entresto twice a day. Unfortunately, Mr. Marsh has not obtained the new prescription. Patient hung up before obtaining any more information. Since he is active with [employer], a message will be sent on the above. [facility]08-23-[facility]24 Miscellaneous Notes* Telephone Encounter - Josette Mcgee RN - 05/13/2024 9:56 AM EDT Call placed to patient to verify that he picked up the Spironolactone and if he had started taking both Eliquis and Entresto twice a day. Unfortunately, Mr. Marsh has not obtained the new prescription. Patient hung up before obtaining any more information. Since he is active with [employer], a message will be sent on the above. documented in this encounterTrihealth Good Samaritan Hospital08-22-2024 Telephone encounter Note * Telephone Encounter - Yana Martin - 05/12/2024 1:20 PM EDT Called pt to schedule Cardiac Rehab. Patient prefers [facility]. Information sent via fax. [facility]08-[facility]24 Miscellaneous Notes* Telephone Encounter - Yana Martin - 05/12/2024 1:20 PM EDT Called pt to schedule Cardiac Rehab. Patient prefers [facility]. Information sent via fax. documented in this encounterTrihealth [facility] Sam[facility]08-21-2024 Nurse Note* Josette Mcgee RN - [...] of Visit: Mr. Marsh arrived to the [facility] for his 2-week follow up with the nurse. Shadi presented alone, ambulating independently. He was able to speak in full sentences with this activity. Medication updates noted in MAR - Noted confusion regarding medications. Shadi stated that he did not know about being started on Spironolactone by the [facility] two weeks ago. The [facility] nurse contacted his pharmacy ([facility]) and confirmed the medication prescription and that it is ready for the patient to pharmacy picking technician. Shadi instructed to do this today. He also was unaware that he was to take his Eliquis and Entresto twice a day, reporting only taking these daily. Confirmed on prescription bottle that these indeed directed the patient to take twice daily. Due to his concern about understanding verbal directions, the [facility] nurse clearly wrote directions on the AVS. [...] above Weight at home: unknown Weight in [facility]: 275 lbs - was 283 lbs on 04/27/2024 Waist Circumference 56 Dietary Adherence: YES Follow-up Plan: one month with [employer] Education CHF Education Activity Daily Weight Symptoms Nutrition Medication (doses, side effects, interactions) Stress Management [facility]08-21-[facility] Nurse Note* Josette Mcgee RN - [...] of Visit: Mr. Marsh arrived to the [facility] for his 2-week follow up with the nurse. Shadi presented alone, ambulating independently. He was able to speak in full sentences with this activity. Medication updates noted in MAR - Noted confusion regarding medications. Shadi stated that he did not know about being started on Spironolactone by the [facility] two weeks ago. The [facility] nurse contacted his pharmacy ([facility]) and confirmed the medication prescription and that it is ready for the patient to pharmacy picking technician. Shadi instructed to do this today. He also was unaware that he was to take his Eliquis and Entresto twice a day, reporting only taking these daily. Confirmed on prescription bottle that these indeed directed the patient to take twice daily. Due to his concern about understanding verbal directions, the [facility] nurse clearly wrote directions on the AVS. [...] above Weight at home: unknown Weight in [facility]: 275 lbs - was 283 lbs on 04/27/2024 Waist Circumference 56 Dietary Adherence: YES Follow-up Plan: one month with [employer] Education CHF Education Activity Daily Weight Symptoms Nutrition Medication (doses, side effects, interactions) Stress Management documented in this encounterTrihealth Good Samaritan Hospital08-21-2024 Instructions* Patient Instructions* Josette Mcgee RN - 05/11/2024 10:51 AM EDT Thank you for visiting the Heart Failure Clinic today. Recommendations for today; 1. home supervisor your medication at [facility] pharmacy - Spironolactone/Aldactone 25 mg daily. 2. On 2023 HAVE BLOOD WORK OBTAINED. This can be at the nearest [facility] lab. Closest lab in [place] is the one on [facility]. 3. You reported that you [...] Jell-O, pudding, yogurt, ice cream Call the [facility] ([phone]) for AN APPOINTMENT (NO WALK-IN VISITS) if you have changes in symptoms or increase in weight of 3 lbs in one day or 5 lbs in a week. Thank you, Josette Ambach, RN documented in this encounterTrihealth Good Samaritan Hospital08-20-2024 History of Present illness Narrative* Denise Coronado [...] CHF clinic tomorrow. Patient reports joining a [employer] and plans to begin walking there. Health leads screening tool questions performed? 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: none Train Conductor plan for next outreach: Will follow-up in 2 weeks Signature: Denise Coronado RN May 10, 2024 documented in this encounterTrihealth Good Samaritan Hospital08-13-2024 History of Present illness Narrative* Denise Coronado [...] to go for Care Concerns: Weights? Medications Train Conductor plan for next outreach: Will follow-up in 1 week Signature: Denise Coronado RN May 03, 2024 documented in this encounterTrihealth Good Samar[facility] Hospital08-09-2024 Telephone encounter Note * Telephone Encounter - Yan Zhao LPN - 04/29/2024 2:48 PM EDT Spoke with Mr Nash. Results and recommendations reviewed with pt per S Mac LOPEZ. Pt verbalizedunderstanding he will obtain labs. He will hold his Crestor for two weeks, then return call and advise of symptoms. He does reports he joined [employer] at the [facility] to start a water program. . Pt has no questions at this time. Yan Zhao LPN [facility]08-09-2024 Miscellaneous Notes* Telephone Encounter - Yan Paul LPN - 04/29/2024 2:48 PM EDT Spoke with Mr Nash. Results and recommendations reviewed with pt per [facility] [employer] [facility]. Pt verbalizedunderstanding he will obtain labs. He will hold his Crestor for two weeks, then return call and advise of symptoms. He does reports he joined [employer] at the [facility] to start a water program. . Pt has no questions at this time. Yan Zhao LPN * Telephone Encounter - Bhanu Edmondson APRN.CNP - 04/29/2024 2:20 PM EDT This is actually a patient of Dr Ponce that Dr Conde saw in the hospital recently for progressive [...] CNP. Yan Zhao LPN documented in this encounterTrihealth Good Samaritan Hospital08-09-2024 Telephone encounter Note * Telephone Encounter - Bhanu Edmondson APRN.CNP - 04/29/2024 2:20 PM EDT This is actually a patient of Dr Ponce that Dr Conde saw in the hospital recently for progressive [...] it should be restarted. Thanks Bhanu Edmondson APRN.SENIOR JAVA J2EE DEVELOPER [facility]08-09-2024 Telephone encounter Note* Telephone Encounter - Josette Mcgee RN - 04/29/2024 12:59 PM EDT Review shows that this was never ordered and sent at time of your visit, therefore one was placed today. Thank you for your help! [facility]08-09-2024 Miscellaneous Notes* Telephone Encounter - Josette Mcgee RN - 04/29/2024 12:59 PM EDT Review shows that this was never ordered and sent at time of your visit, therefore one was placed today. Thank you for your help! * Telephone Encounter - Boo Kiran APRN.CNP - 04/29/2024 11:13 AM EDT Script was sent to [facility] in [place] at our visit Please let me know if this was the wrong pharmacy and please update epic if needed THanks * Telephone Encounter - Josette Mcgee RN - 04/29/2024 10:05 AM EDT Mr. Marsh contacted the [facility] regarding the need to have his new prescription sent to the pharmacy. Reviewed last office visit note and noted a recommendation to have patient start Spironolactone 25mg daily and to have blood work completed 2 weeks after start. Requesting for prescription documented in this encounterTrihealth Good Samaritan Hospital08-09-2024 Telephone encounter Note * Telephone Encounter - Boo Kiran APRN.CNP - 04/29/2024 11:15 AM EDT Thank you Yan I only manage heart failure meds. I attached Bhanu since she is the next gen cards appointment [facility]08-09-2024 Telephone encounter Note* Telephone Encounter - Boo Kiran APRN.CNP - 04/29/2024 11:13 AM EDT Script was sent to [facility] in [place] at our visit Please let me know if this was the wrong pharmacy and please update epic if needed THanks [facility]08-09-2024 Telephone encounter Note* Telephone Encounter - Yan Paul LPN - 04/29/2024 10:28 AM EDT Pt called in reports he has discontinued his Crestor due to sore muscles and muscle spasms in his legs. He has upcomming apts with the CHF clinic and Neva Edmondson CNP. Yan Zhao LPN [facility]08-09-2024 Telephone encounter Note* Telephone Encounter - Josette Mcgee RN - 04/29/2024 10:05 AM EDT Mr. Marsh contacted the [facility] regarding the need to have his new prescription sent to the pharmacy. Reviewed last office visit note and noted a recommendation to have patient start Spironolactone 25mg daily and to have blood work completed 2 weeks after start. Requesting for prescription [facility]08-07-[facility] Nurse Note* Cristobal Ames RN - 04/27/2024 4:26 PM EDT Patient presents to the [facility] for his initial visit. He has not [...] in the management of HFsymptoms. Weight in [facility]: 283 lbs/55 Previous [facility] visit: new Dietary Adherence: No [id number] further evaluated by Estella Kiran CNP. Recommendations received at this time and placed on the after visit summary. Reviewed with patient. Verbalized understanding. [id number] the importance of following a 500-650 mg per meal (1500- 2000 mg per day) sodium diet, 64 oz fluid restriction, label reading, medication adherence, increased activity, daily weights and follow up care. Heart Failure Zone sheet reviewed. Reminded patient of the signs/symptoms ofimpending CHF and when to call the [facility] for early intervention. Discussed home exercise (walking, bands, arm exercises) and home safety (no area rugs, get up slowly, no rushing to answer phone/door) guidelines. Encouraged him to increase activity as tolerated. Follow up in 1 month with RN per SENIOR JAVA J2EE DEVELOPER recommendation. [facility]08-07-20[facility] Nurse Note* Cristobal Ames RN - 04/27/2024 4:26 PM EDT Patient presents to the [facility] for his initial visit. He has not [...] in the management of HFsymptoms. Weight in [facility]: 283 lbs/55 Previous [facility] visit: new Dietary Adherence: No [id number] further evaluated by Estella Kiran CNP. Recommendations received at this time and placed on the after visit summary. Reviewed with patient. Verbalized understanding. [id number] the importance of following a 500-650 mg per meal (1500- 2000 mg per day) sodium diet, 64 oz fluid restriction, label reading, medication adherence, increased activity, daily weights and follow up care. Heart Failure Zone sheet reviewed. Reminded patient of the signs/symptoms ofimpending CHF and when to call the [facility] for early intervention. Discussed home exercise (walking, bands, arm exercises) and home safety (no area rugs, get up slowly, no rushing to answer phone/door) guidelines. Encouraged him to increase activity as tolerated. Follow up in 1 month with RN per SENIOR JAVA J2EE DEVELOPER recommendation. documented in this encounterTrihealth Good Samar[facility] Hospital08-07-2024 Instructions* Patient Instructions* Boo Kiran APRN.JOHN - 04/27/2024 4:01 PM EDT Thank you for visiting the Heart Failure Clinic today. PLEASE CALL [phone] REGARDING MONITOR LOSS. START Aldactone 25mg daily OBTAIN Blood work in 2 weeks If you can't afford medicines call the office at [phone] Monitor blood pressure, heart rate, weights at [...] Increase your activity as tolerated. Call the [facility] ([phone]) for AN APPOINTMENT (NO WALK-IN VISITS) if you have changes in symptoms or increase in weight of 3 lbs in one day or 5 lbs in a week. Thank you, Cristobal Ames RN documented in this encounterTrihealth Good Samar[facility] Hospital08-07-2024 History of Present illness Narrative* Boo Kiran APRN.SENIOR JAVA J2EE DEVELOPER - 04/27/2024 3:45 PM EDT PRIMARY CARE PHYSICIAN: Duncan Craven [address] [place] [address] Chief Complaint Patient presents with: CHF: First OV/needs educ HISTORY OF PRESENT ILLNESS: Mr. Marsh is a 58 year old male who is known to Dr. Ponce seen by Dr. Conde with most recent hospitalization Patient has a significant history of CAD s/p remote AR with PCI to LAD in 2011, hypertension, hyperlipidemia, T2DM, ELBERT not on CPAP therapy, tobacco abuse and morbid obesity. Left heart cath 03/2024 mild coronary disease NM Stress -- Ejection fraction 03/2024 was 17% diastolic not evaluated due to AF Patient dry weight 299 when he went into the hospital Patient current weight 238lb Patient presented to [facility] 04/13/2024 with complaints of worsening shortness [...] consulted and patient was evaluated by Dr. Conde. He was recommended to undergo left heart [...] each nostril once daily. 18.2 mL0 Insulin [place], Disposable, (PEN NEEDLE) 32 gauge x 5/32 [...] HFrEF (heart failure with reduced ejection fraction) ([facility]) - ICD9: 428.22, ICD10: I50.22 NYHA II [...] weeks patient plans to go to the [facility] to have this drawn SGLT2i : Jardiance [...] have confirmed and edited as necessary the [facility] and information obtained by others. Reviewed with patient to call with any routine questions arise, however patient developed increasing symptoms or symptoms became worse in severity made to call 911 and presented to the closest emergency department from urgent treatment. documented in this encounterTrihealth Good Samar[facility] Hospital08-06-2024 History of Present illness Narrative* Denise Coronado [...] education/Where to go for Care Concerns: metformin Train Conductor plan for next outreach: Will follow-up in 1 week Signature: Denise Coronado RN April 26, 2024 documented in this encounterTrihealth Good Samar[facility] Hospital07-30-2024 History of Present illness Narrative* Homa Kemp RN - 04/19/2024 1:47 PM EDT TRANSITIONAL CARE MANAGEMENT (TCM) COMMUNITY MONITORING PROGRAM - [place] Provider Action/FYI: Patient reports he has started to make diet changes, decrease sodium, and water intake. Patient reports he is going to start walking for exercise. Patient reports he is monitoring daily weights. SUMMARY: Pt discharged from [facility] on 04/15/24. Admitted for: Syncope Patient seen Inpatient SARAY Visit? No. Patient seen ICARE Program? No. Contact made with patient: Yes Hi my name is Homa Kemp RN and I am calling from the [facility] on behalf of your PCP, Duncan Craven MD I understand you were recently in the hospital so I am calling tocheck in with you to ensure you are [...] like to speak with a social work support team assoc to help give you support for any [...] the way if possible). documented in this encounterTrihealth Good Samaritan Hospital07-30-2024 History of Present illness Narrative* Duncan Craven MD - 04/19/2024 1:39 PM EDT Attending Note I discussed with resident on 04/19/2024. The patient was not examined by the attending. I reviewed the resident's note. I agree with the resident's assessment and plan unless otherwise noted. Signature: Duncan Craven MD Date: 04/19/2024 Time: 1:39 PM * Javid Eugene MD - 04/19/2024 9:31 AM EDT Transitional Care Management TCM Eligibility Documentation Program: Transitional Care Management Status: Identified Start Date: 04/15/2024 Responsible Staff: Homa Kemp RN Discharge date: 04/15/2024 (Program start) Date of initial contact: Initial contact Target status: Not completed Summary Discharged from: [facility] Admit Date: 04/13/24 Admitted for: 04/15/24 Javid Eugene MD Provider Documentation Venkat Marsh is a [...] said that he is currently athis friends house and does not have access [...] reminded of his upcoming appointments with his meat boner and heart failure clinic and advised to [...] medication in his bag on open medications Javid Eugene April 19, 2024 9:31 AM documented in this encounterTrihealth Good Samaritan [facility]07-30-2024 History of Present illness Narrative* Boo Kiran APRN.CNP - 04/19/2024 12:42 PM EDT I am not legally part of patient's care until I meet him in April. You will need to send this to one of the providers --primary care or cardiology --that have met this patient. From a cardiology standpoint per epic has been Dr. Ponce's patient Bhanu Edmondson nurse practitioner and Dr. Conde has seen the patient in the hospital. Thank you * Caty Cameron [facility] - 04/18/2024 11:19 AM EDT TRANSITION CARE [...] oz) Patient was sent a message via SERPs including the link to the [facility] Heart Failure education video: No CHF clinic referral placed inpatient Initial contact with patient post discharge, spoke to patient, and verified that any applicable caregiver is active in patient's medical care. Patient identified by name and . Summary: -Pt discharged from [facility] on 04/15/24. -Medication review done Full medication [...] 17% -- heart cath 04/14 GDMT - fredo. Metoprolol, dapagliflozin and lasix Hypokalemia - resolved [...] tablet by mouth two times a day. [facility] 04/15/24 #60/30ds New Afib Has at [...] once daily. Patient should start on March. [facility] 04/15/24 30ds 40mg Increased 20mg to [...] as prescribedwithout any issues 01/29/24 9mL Insulin [place], Disposable, (PEN NEEDLE) 32 gauge x 5/32 [...] tablet by mouth two times a day. [facility] 04/15/24 #60/30ds Has at home - will start this afternoon 120/80 today - will continue to monitor Counseled on indication, administration and SE traZODone (DESYREL) 100 mg tablet Take 1 tablet by mouth daily at bedtime. Taking as prescribed without any issues 03/31/24 30ds [address] pharmacy: [facility] [address] [address] [address] [facility] - [phone] [place] [address] e- [facility]/pharmacy #[id number] [place] [address] [address] [facility] - [phone] [place] [address] [address] [facility] [address] e- [id number] [place] [address] - [address] [facility] - [phone] [address] [facility] [phone] [facility] [address] [place] [address] Estimated Creatinine Clearance: 68.8 mL/min (A) (based on SCr of 1.48 mg/dL (H)). Estimated Glomerular Filtration Rate (mL/min/1.73m ) Date Value 04/15/2024 54 (L) eGFR- (no units) Date Value 08/24/2014 >60 Additional follow up: Next 5 Appointments Date and Time Provider Department Dept Phone 04/19/2024 9:00 AM Javid Eugene [facility] [phone] 04/27/2024 3:45 PM 3, Nurse Card Chf; Boo Kiran [facility] [phone] 05/06/2024 11:00 AM Yuliet Fong [place] [facility] [phone] Interventions Made: Patient education/Medication counseling, Adherence counseling, and Medication access issue resolved Pharmacist Recommendations Made None Care Coordination: Prescription order pended for review and approval by provider, Medication clarification obtained from provider, and Escalated to specialist provider Time spent on patient: 45-60 minutes Caty Cameron RPh April 18, 2024 11:20 AM documented in this encounterTrihealth Good Sam[facility]07-29-2024 Telephone encounter Note * Telephone Encounter - Jessica Fitzgerald - 04/18/2024 3:07 PM EDT LVM scheduled with 06-20 at 3:30 pm in [place] with Bhanu Edmondson. Thanks Jessica Fitzgerald [facility]07-29-2024 Miscellaneous Notes* Telephone Encounter - Jessica Fitzgerald - 04/18/2024 3:07 PM EDT LVM scheduled with 06-20 at 3:30 pm in [place] with Bhanu Edmondson. Thanks Jessica Fitzgerald * Telephone Encounter - Bhanu Edmondson APRN.SENIOR JAVA J2EE DEVELOPER - 04/15/2024 3:52 PM EDT Patient will [...] in 6-8 weeks. Thanks Bhanu Edmondson APRN.CNP documented in this encounterTrihealth Good Samaritan Hospital07-29-2024 Telephone encounter Note * Telephone Encounter - Radha Mercedes - 04/18/2024 2:47 PM EDT Patient was discharged from [facility] 04-15-24 with an order to schedule with the Heart Failure Clinic. The patient is scheduled with the [facility] for an office visit 04-27-24, which was scheduled at a recent discharge. However, the patient missed their TeleHealth appointment. Attempted to reach patient, however, voice mail was full, will send MyChart message. [facility]07-29-[facility] Miscellaneous Notes* Telephone Encounter - Radha Mercedes - 04/18/2024 2:47 PM EDT Patient was discharged from [facility] 04-15-24 with an order to schedule with the Heart Failure Clinic. The patient is scheduled with the C for an office visit 04-27-24, which was scheduled at a recent discharge. However, the patient missed their TeleHealth appointment. Attempted to reach patient, however, voice mail was full, will send MyChart message. documented in this encounterTrihealth Good Samaritan Hospital07-29-2024 Telephone encounter Note * Telephone Encounter - Rupert Degroot LPN - 04/18/2024 11:03 AM EDT Last Office Visit Date: 04/11/2024 Last Distance Health Visit: Visit date not found Has the patient had an appointment at [facility] in the past year, or do they have an upcoming appointment scheduled at [facility]? YES- Continue with refill request. Future Appointment: [...] Lisinopril Cough Sulfamethoxazole-Tr* Rash, Hives, Swelling (home) [phone] (cell) The patients preferred pharmacy has been captured for this encounter? yes Request is for script(s) to be escript to pharmacy. Rupert Degroot LPN [facility]07-29-2024 Miscellaneous Notes* Telephone Encounter - Rupert Degroot LPN - 04/18/2024 11:03 AM EDT Last Office Visit Date: 04/11/2024 Last Distance Health Visit: Visit date not found Has the patient had an appointment at [facility] in the past year, or do they have an upcoming appointment scheduled at [facility]? YES- Continue with refill request. Future Appointment: [...] Lisinopril Cough Sulfamethoxazole-Tr* Rash, Hives, Swelling (home) [phone] (cell) The patients preferred pharmacy has been captured for this encounter? yes Request is for script(s) to be escript to pharmacy. Rupert Degroot LPN documented in this encounterTrihealth Good Samaritan Hospital07-26-2024 Telephone encounter Note * Telephone Encounter - Bhanu Edmondson APRN.CNP - 04/15/2024 3:52 PM EDT Patient will also need a bmp in 7-10 days. Order has been placed Bhanu Edmondson APRN.JOHN [facility]07-26-2024 Telephone encounter Note* Telephone Encounter - Bhanu Edmondson APRN.CNP - 04/15/2024 2:17 PM EDT Pt was recently seen in the hospital for CHF. Please reach out to patient to schedule follow up visit with Dr. Ponce or [facility]. Patient should be seen in 6-8 weeks. Thanks Bhanu Edmondson APRN.JOHN [facility]07-25-2024 Telephone encounter Note* Telephone Encounter - Lorena Hurley - 04/14/2024 2:57 PM EDT Patient called from [facility]. He is currently admitted. States that [...] to call him, please advise. Lorena Hurley, Assistant Hall Director April 14, 2024 3:02 PM [facility]07-25-2024 Miscellaneous Notes* Telephone Encounter - Lorena Hurley - 04/14/2024 2:57 PM EDT Patient called from [facility]. He is currently admitted. States that [...] to call him, please advise. Lorena Hurley, Assistant Hall Director April 14, 2024 3:02 PM documented in this encounterTrihealth Good Samar[facility] Hospital07-24-2024 Telephone encounter Note * Telephone Encounter - Josette Mcgee RN - 04/13/2024 1:02 PM EDT Mr. Marsh was scheduled for a new patient phone visit with the [facility] nurse today. Call uteEna Hsu reported that he forgot about the appointment and was currently headed up to the [facility] ED ([facility]). Stated he cannot breathe well and was advised to go to the ED by his doctor. Will cancel the remote visit today. Will follow patient and when discharged from the hospital will call to reschedule. [facility]07-24-2024 Miscellaneous Notes* Telephone Encounter - Josette Mcgee RN - 04/13/2024 1:02 PM EDT Mr. Marsh was scheduled for a new patient phone visit with the [facility] nurse today. Call placed. Hsu reported that he forgot about the appointment and was currently headed up to the [facility] ED (main). Stated he cannot breathe well and was advised to go to the ED by his doctor. Will cancel the remote visit today. Will follow patient and when discharged from the hospital will call to reschedule. documented in this encounterTrihealth [facility]24 Telephone encounter Note * Telephone Encounter - Ann-Marie Robertson RN - 04/13/2024 10:58 AM EDT Pt calls to report due to his shortness of breath he is going to ER. Ann-Marie Robertson RN [facility]07-24-2024 Miscellaneous Notes* Telephone Encounter - Ann-Marie [...] 04/13/2024 8:10 AM EDT Left message on [email or web address].commail requesting pt return call for test results [...] with either myself or one of the informaticist to review his cath findings and optimize his medication therapy? Thanks, Yousuf Ponce MD documented in this encounterTrihealth [facility]07-[facility]24 Telephone encounter Note * Telephone Encounter - Ann-Marie Robertson RN - 04/13/2024 9:52 AM EDT Pt scheduled for cath 04/15/24. Ann-Marie Robertson RN [facility]07-24-2024 Telephone encounter Note* Telephone Encounter - Ann-Marie Robertson RN - 04/13/2024 8:19 AM EDT Spoke with pt. Notified of test results and Dr Ponce's recommendations. Pt voices understanding. Pt agreeable to cath. Ann-Marie Robertson RN T [facility]07-24-2024 Telephone encounter Note* Telephone Encounter - Ann-Marie Robertson RN - 04/13/2024 8:10 AM EDT Left message on voicemail requesting pt return call for test results and MD recommendations. Officephone number provided. Ann-Marie Robertson RN [facility]07-23-2024 Telephone encounter Note* Telephone Encounter - Yousuf [...] with either myself or one of the informaticist to review his cath findings and optimize his medication therapy? Thanks, Yousuf Ponce MD [facility]07-23-2024 Telephone encounter Note* Telephone Encounter - Jan Alas Radha - 04/12/2024 11:56 AM EDT [facility] received a referral 04-11-[address] Craven, PCP, to schedule with the clinic. The clinic reached out to the patient. TeleHealth 04-13-24, office visit 04-27-24. [facility]07-23-2024 Miscellaneous Notes* Telephone Encounter - Radha Mercedes - 04/12/2024 11:56 AM EDT [facility] received a referral 04-11-[address] Craven, PCP, to schedule with the clinic. The clinic reached out to the patient. TeleHealth 04-13-24, office visit 04-27-24. documented in this encounterTrihealth [facility]07-[facility]-2024 Miscellaneous Notes* Addendum Note - Deena Brooks RN - 04/12/2024 7:00 AM EDTEncounter addended by: Deena Brooks RN on: 04/12/2024 9:36 AM Actions taken: Clinical Note Signed documented in this encounterTrihealth Good Samar[facility] Hospital07-23-2024 Note* Addendum Note - Deena Brooks RN - 04/12/2024 7:00 AM EDTEncounter addended by: Deena Brooks, SUZAN on: 04/12/2024 9:36 AM Actions taken: Clinical Note Signed [facility]07-23-2024 Nurse Note* Deena Brooks RN - 04/12/2024 7:00 AM EDT Pt Here For An Echo. Pt Very Short Of Breath Walking From [facility] To Exam Room. Pt Was Transported Eliana Wheelchair. Blood Pressure Elevated Per Echo Staff. Dr. Alberts Notified And Saw Pt In Echo Lab. Offered To Have Pt Go To ER. Pt Chose To Go Home And Take His Medication (Pt Admits To Not Taking Medication Recently) And Call Physician For Follow Up. [facility]07-23-2024 Nurse Note* Deena Brooks RN - [...] Physician For Follow Up. documented in this encounterTrihealth Good Samaritan Hospital07-22-2024 History of Present illness Narrative* Gavin Betancur DO - 04/11/2024 8:06 AM EDT Images from the original note were not included. [facility] Gavin Betancur DO ASSESSMENT/PLAN: 1. Bilateral lower extremity edema - ICD9: 782.3, ICD10: R60.0 (primary diagnosis) 2. Coronary artery disease involving [place] coronary artery of [place] heart without angina pectoris- ICD9: 414.01, ICD10: [...] - Patient has reportedly been driving an [employer] family to and from the hospital, which [...] (HCC) CAD S/P percutaneous coronary angioplasty 2011 [place] Diabetes mellitus (HCC) History of acute myocardial infarction HTN (hypertension) Hypercholesteremia Hypothyroidism PAST SURGICAL HISTORY Procedure Laterality Date ANGIOPLASTY 2011 [facility] STENT COLONOSCOPY 2009 [place] ARTHROSCOPY/SURGERY 2000 loose [...] Sprays in each nostril once daily. Insulin [place], Disposable, (PEN NEEDLE) 32 gauge x 5/32 [...] 11, 2024 8:06 AM documented in this encounterTrihealth [facility]07-09-2024 Hospital Discharge instructions Patient Education 03/29/2024 [...] your ankles gets worse Dizziness or weakness [phone] [employer]. [address] [place] [address]. All rights reserved. This information is not intended as a substitute for professional medical care. Always follow yourhealthcare professional's instructions. Follow Up Care 03/29/2024 09:35:39 With:GAVIN BETANCUR II Address: [address] [place] [id number]- When:2-4 days [facility] 07-09-2024 Note Discharge Instructions Thank you for allowing [facility] to assist you with your healthcare needs. The following is importantdischarge information regarding your hospital visit. What to Do Next Instructions from Your Care Team No qualifying data available. Post Acute Orders No qualifying data available. You Need to Schedule the Following Appointments Follow Up with GAVIN BETANCUR II When:Within 2-4 days Where:[address] [place] [address]- Allergies Bactrim swelling doxycycline Medications Please ask [...] your ankles gets worse Dizziness or weakness [phone] [employer]. [address] [place] [address]. All rights reserved. This information is not intended as a substitute for professional medical care. Always follow yourhealthcare professional's instructions. Additional Information VACCINATE! IT SAVES LIVES! Members of the community who have not yet received the COVID-19 vaccine and would like to receive it can visit one of [facility] vaccine clinics. There are many vaccine clinic locations within the [facility]. For locations and available times, please visit [email or web address] It is important to note that some COVID mobile vaccine clinics are held outdoors and may be canceled in rainy or stormy conditions. To learn more about pediatric vaccinations (ages 5-11), we invite you to visit the [facility] webpage. [email or web address]/[email or web address] [email or web address] learn more about the COVID-19 vaccine, we invite you to visit the CDC website for a list of frequently asked questions. https://www.cdc.gov/coronavirus/2019-ncov/vaccines/faq.html [facility] Patient Portal Access Instructions: Stay connected with your healthcare team and access your personal medical information anytime with the [facility] Patient Portal. If you would like a full copy of your medical records please contact the [facility] Medical Records Department Thursday through Thursday between 8a.m. and 4:30p.m. Please follow the directions below to access the portal: 1.Access the email account you provided upon registration to the [facility].2.Look for an invitation email from [facility].3.Open the email and access the invitation link: Accept Invitation to [facility]4.Fill in the required bee to create your account. Sign into [email or web address] with your username and password that you [...] you will allow to register on the [facility] Patient Portal for access to your information. You can also access the [facility] Patient Portal on the [employer] taco. Simply click on Health Records under [employer] and then click on the Curly logo. [...] Call your local pharmacy or go to http://bit.Novalys/4L8Hn1z to find one close to you.3.Make use of household items: Use cat litter or old coffee grounds to dispose medications if other options arenot available. Mix your drugs with these household products, seal them in an airtight container andthrow it into the garbage. Call [facility]: [phone] to be sure your drugs can be [...] aware that I should contact my doctor. 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 Signature: Date/Time: Relationship to Patient: Witness Name/Signature: Date/Time: [facility]07-09-2024 Note ORIGINAL EXAMINATION: ONE XRAY VIEW OF [...] Date: 03/29/2024 10:39:18 AM Ordering Provider: [facility]07-09-2024 NoteSinus rhythm Prolonged PA interval IVCD, consider atypical LBBB Compared to ECG at 11/28/2023 08:28:11 BORDERLINE ECG Electronic Signature: KYLIE DURANT DO 03/29/2024 10:16:48[facility] 07-08-2024 History of Present illness Narrative* Zaid Szymanski, DO - 03/28/2024 10:53 AM EDT HPI: Venkat Marsh is a 58 year old male who presents today for pain and bursitis. Flared up few days ago with impact when falling out of bed. H/O bursitis and surgery. Still has excellent use of the elbow. Hurts only when puts direct pressure on it. [place] swollen and warm initially. Worries hewill need another surgery or drainage of the elbow bursa sac. PAST MEDICAL HISTORY Diagnosis Date Bipolar 1 disorder (HCC) CAD S/P percutaneous coronary angioplasty 2011 [place] Diabetes mellitus (HCC) History of acute myocardial infarction HTN (hypertension) Hypercholesteremia Hypothyroidism PAST SURGICAL HISTORY Procedure Laterality Date ANGIOPLASTY 2011 [facility] STENT COLONOSCOPY 2009 [place] ARTHROSCOPY/SURGERY 2000 loose [...] Sprays in each nostril once daily. Insulin Col[place], Disposable, (PEN NEEDLE) 32 gauge x 5/32 [...] as needed if pain or swelling flareup. Zaid Szymanski DO documented in this encounterTrihealth [facility]06-10-2024 Telephone encounter Note * Telephone Encounter - Lorena Hurley - 02/29/2024 2:29 PM EDT Called patient, he states that he no longer needs these forms filled out. States that he wanted to eval for disability for student loan forgiveness, however, his loans have been forgiven. Please hold on to forms for now. Lorena Hurley Assistant Hall Director February 29, 2024 2:30 PM [facility]06-10-2024 Miscellaneous Notes* Telephone Encounter - Lorena Hurley - 02/29/2024 2:29 PM EDT Called patient, he states that he no longer needs these forms filled out. States that he wanted to eval for disability for student loan forgiveness, however, his loans have been forgiven. Please hold on to forms for now. Lorena Hurley Assistant Hall Director February 29, 2024 2:30 PM * Telephone [...] he has a history significant for previous AR, type 2 diabetes mellitus, mood disorder, left [...] Betancur, do you have forms? Lorena Hurley, Assistant Hall Director February 19, 2024 9:59 AM documented in this encounterTrihealth [facility]06-[facility]-2024 Telephone encounter Note * Telephone Encounter [...] he has a history significant for previous AR, type 2 diabetes mellitus, mood disorder, left [...] Betancur DO PGY-2 Internal Medicine 3:24 PM [facility]05-31-2024 Telephone encounter Note* Telephone Encounter - Lorena Hurley - 02/19/2024 9:56 AM EDT Patient called, requests update on disability forms given to PCP on 02/03/24. Could not locate in office. Dr. Betancur, do you have forms? Lorena Hurley, Assistant Hall Director February 19, 2024 9:59 AM [facility]05-20-2024 History of Present illness Narrative* Duncan [...] - PEN NEEDLE, DIABETIC 32 GAUGE X - INSULIN SYRINGE U-100 WITH NEEDLE 0.5 ML 31 GAUGE X 02/03 - Repeat ALBUMIN/CREATININE RATIO, URINE 2. Mild [...] PEN INJECTOR 4. Coronary artery disease involving [place] coronary artery of [place] heart without angina pectoris- ICD9: 414.01, ICD10: [...] mellitus with other specified complication, unspecified whether snf insulinuse (HCC) - ICD9: 250.80, ICD10: E11.69 [...] his student loans. As a , the [employer] recommended he attempt to fill out forms [...] (HCC) CAD S/P percutaneous coronary angioplasty 2011 [place] Diabetes mellitus (HCC) History of acute myocardial infarction HTN (hypertension) Hypercholesteremia Hypothyroidism PAST SURGICAL HISTORY Procedure Laterality Date ANGIOPLASTY 2011 [facility] STENT COLONOSCOPY 2009 [place] ARTHROSCOPY/SURGERY 2000 loose [...] Sprays in each nostril once daily. Insulin [place], Disposable, (PEN NEEDLE) 32 gauge x 5/32 [...] 03, 2024 10:37 AM documented in this encounterTrihealth [facility]05-15-2024 Instructions* Patient Instructions* Yuliet Fong DO - 02/03/2024 9:47 AM EDT documented in this encounterTrihealth Good Samar[facility]05-15-2024 History of Present illness Narrative* Yuliet Fong DO - 02/03/2024 9:[address] [facility] PROGRESS NOTE PATIENT: Venkat Marsh MRD: [id number] DATE: February 03, 2024 IDENTIFYING INFORMATION: Venkat is a 58 year old male with a history as per chart of schizoaffective disorder. CHIEF COMPLAINT: Things have been ok SUBJECTIVE: Venkat is a 58 year old male with a history as per chart of schizoaffective disorder. Patient was referred by PCP. The patient's last appointment with [facility] clinic was on 11/02/23. [...] 5 years THC- denies THC use since highZattooool Hx heavy Cocaine use in his 30s, [...] caffeine use 4. Insomnia, unspecified PLAN: Provided summer camp counselor and support. Encouraged ongoing use of coping skills, resiliency. Encouraged healthy and open communication. Medication changes: continue Remeron 15 mg qhs, historical medication Continue trazodone 100 mg qhs, historical medication reinforce role of caffeine on mental physical health, counseled cutting back/ cessation Pt established with therapist/counselor at [facility] Discussed with patient to follow with PCP for physical health concerns Risk/benefits/side effects/interactions of above medications discussed with patient Labs: reviewed PDMP website checked and validated. All prescriptions have been APPROPRIATELY filled. No suspiciousactivity was identified. 02/03/2024 by Yuliet Fong, DO Patient understands and [...] which included preparing to see the patient, qcqy-au-mcbt patient care, completing clinical documentation, obtaining and/or reviewing separately obtained history, performing a medically appropriate examination, counseling and educating the pa tient/family/caregiver, and ordering medications, tests, or procedures. Disclaimer: Portions of this note may have been generated using [employer] voice recognition software and is inherently subject [...] 03, 2024 9:28 AM documented in this encounterTrihealth [facility]04-11-2024 Miscellaneous Notes* Telephone Encounter - Daylin Anderson LPN - 12/31/2023 8:17 AM EDT Last Office Visit Date: 10/20/2023 Last Distance Health Visit: Visit date not found Has the patient had an appointment at [facility] in the past year, or do they have an upcoming appointment scheduled at [facility]? YES- Continue with refill request. Future Appointment: [...] Lisinopril Cough Sulfamethoxazole-Tr* Rash, Hives, Swelling (home) [phone] (work) [phone] (cell) The patients preferred pharmacy has been captured for this encounter? yes Request is for script(s) to be escript to pharmacy. Daylin Anderson LPN documented in this encounterTrihealth [facility]04-08-2024 Miscellaneous Notes* Telephone Encounter - Babs Dumont LPN - 12/28/2023 4:23 PM EDT Last Office Visit Date: 10/20/2023 Last Distance Health Visit: Visit date not found Has the patient had an appointment at [facility] in the past year, or do they have an upcoming appointment scheduled at [facility]? YES- Continue with refill request. Future Appointment: 02/01/2024 Pharmacy faxed requesting the following refill Refill(s) Requested: Requested Prescriptions Pending Prescriptions Disp Refills Insulin Syringe-Needle U-100 0.5 mL 31 gauge x 5/16 100 Each 0 Sig: Inject 1 Each subcutaneously every 24 hours. Give with each insulin administration. ALLERGIES Allergen Reactions Metformin Diarrhea Lisinopril Cough Sulfamethoxazole-Tr* Rash, Hives, Swelling (home) [phone] (work) [phone] (cell) The patients preferred pharmacy has been captured for this encounter? yes Request is for script(s) to be escript to pharmacy. Babs Dumont LPN documented in this encounterTrihealth [facility]04-08-2024 Miscellaneous Notes* Telephone Encounter - Babs Dumont LPN - 12/28/2023 11:11 AM EDT Last Office Visit Date: 10/20/2023 Last Distance Health Visit: Visit date not found Has the patient had an appointment at [facility] in the past year, or do they have an upcoming appointment scheduled at [facility]? YES- Continue with refill request. Future Appointment: [...] Lisinopril Cough Sulfamethoxazole-Tr* Rash, Hives, Swelling (home) [phone] (work) [phone] (cell) The patients preferred pharmacy has been captured for this encounter? yes Request is for script(s) to be escript to pharmacy. Babs Dumont LPN documented in this encounterTrihealth [facility]04-08-2024 Miscellaneous Notes* Telephone Encounter - Babs Dumont LPN - 12/28/2023 11:09 AM EDT Last Office Visit Date: 10/20/2023 Last Distance Health Visit: Visit date not found Has the patient had an appointment at [facility] in the past year, or do they have an upcoming appointment scheduled at [facility]? YES- Continue with refill request. Future Appointment: 12/27/2023 Pharmacy faxed requesting the following refill Refill(s) Requested: Requested Prescriptions Pending Prescriptions Disp Refills Insulin [place], Disposable, (PEN NEEDLE) 32 gauge x 5/32 100 Each 1 Sig: Inject 1 Each subcutaneously every 24 hours. Give with each insulin administration. ALLERGIES Allergen Reactions Metformin Diarrhea Lisinopril Cough Sulfamethoxazole-Tr* Rash, Hives, Swelling (home) [phone] (work) [phone] (cell) The patients preferred pharmacy has been captured for this encounter? yes Request is for script(s) to be escript to pharmacy. Babs Dumont LPN documented in this encounterTrihealth Good [facility]aritan Hospital03-09-2024 Hospital Discharge instructions Patient Education 11/28/2023 [...] exposed to secondhand smoke. You may use hmyl-ssh-vbtghwg medicine to control fever or pain, unless [...] loosen secretions in the nose and lungs. Qkbu-lnw-xgqcdtl cough, cold, and sore-throat medicines will not [...] shortness of breath, or pain with breathing [id number] [employer]. [address] [place] [address], [place] [id number]. All rights reserved. This information is not intended as a substitute for professional medical care. Always follow yourhealthcare professional's instructions. Follow Up Care 11/28/2023 08:08:42 With:GAVIN BETANCUR II Address: [address] [place] [id number]- When:2-4 days [facility] 03-09-2024 Emergency department Discharge summary Discharge Instructions Thank you for allowing [facility] to assist you with your healthcare needs. The following is importantdischarge information regarding your hospital visit. Diagnosis from Today's Visit Congestion Shortness of breath What to Do Next Instructions from Your Care Team No qualifying data available. Post Acute Orders No qualifying data available. You Need to Schedule the Following Appointments Follow Up with GAVIN BETANCUR II When Within 2-4 days Where: [facility] [place] [address]- Allergies Bactrim (swelling) Medications Please ask your [...] may report side effects to FDA at 0-135-QUB-2906. What other drugs will affect albuterol inhalation? [...] may affect albuterol inhalation, including prescription and pjqv-myb-jojrved medicines, vitamins, and herbal products. Not all [...] to ensure that the information provided by [employer]. ('[employer]') is accurate, up-to-date, and complete, but no guarantee is made to that effect. Drug information contained herein may be time sensitive. [employer] information has been compiled for use by healthcare practitioners and consumers in the [place] and therefore [employer] does not warrant that uses outside of the [place] are appropriate, unless specifically indicated otherwise. [employer] drug information does not endorse drugs, diagnose patients or recommend therapy. [employer] drug information isan informational resource designed to [...] effective or appropriate for any given patient. [employer] does not assume any responsibility for any aspect of healthcare administered with the aid of information [employer] provides. The information contained herein is not intended to cover all possible uses, directions, precautions, warnings, drug interactions, allergic reactions, or adverse effects. If you have questions about the drugs you are taking, check with your doctor, nurse or pharmacist. Copyright 0277-2117 [employer]. Version: 07.22. Revision Date: 11/22/2023. azithromycin (oral/injection) (a MAGAN boo MYE sin) Azithromycin 3 Day Dose Pack, Azithromycin [...] may report side effects to FDA at 5-174-AAG-0036. What other drugs will affect azithromycin? Tell your doctor about all your other medicines, especially: colchicine; digoxin; nelfinavir; phenytoin; an antacid that contains aluminum or magnesium--Acid Gone, Gaviscon, Gelusil, Maalox, Milk of Magnesia, Mylanta, Pepcid Complete, Rolaids, Rulox, and others; or a blood thinner--warfarin, Coumadin, Jantoven. This list is not complete. Other drugs may affect azithromycin, including prescription and jwxb-uyb-eoyypdw medicines, vitamins, and herbal products. Not all [...] to ensure that the information provided by [employer]. ('[employer]') is accurate, up-to-date, and complete, but no guarantee is made to that effect. Drug information contained herein may be time sensitive. [employer] information has been compiled for use by healthcare practitioners and consumers in the [place] and therefore [employer] does not warrant that uses outside of the [place] are appropriate, unless specifically indicated otherwise. [employer] drug information does not endorse drugs, diagnose patients or recommend therapy. [employer] drug information isan informational resource designed to [...] effective or appropriate for any given patient. [employer] does not assume any responsibility for any aspect of healthcare administered with the aid of information [employer] provides. The information contained herein is not intended to cover all possible uses, directions, precautions, warnings, drug interactions, allergic reactions, or adverse effects. If you have questions about the drugs you are taking, check with your doctor, nurse or pharmacist. Copyright 3944-5781 [employer]. Version: 18.01. Revision Date: 01/20/2019. prednisone (PRED ni sone) Noe What is the most important information I [...] may report side effects to FDA at 4-672-JPI-6562. What other drugs will affect prednisone? Sometimes [...] may affect prednisone. This includes prescription and viug-hvd-bqbyybr medicines, vitamins, and herbal products. Not all [...] to ensure that the information provided by [employer]. ('[employer]') is accurate, up-to-date, and complete, but no guarantee is made to that effect. Drug information contained herein may be time sensitive. [employer] information has been compiled for use by healthcare practitioners and consumers in the [place] and therefore [employer] does not warrant that uses outside of the [place] are appropriate, unless specifically indicated otherwise. [employer] drug information does not endorse drugs, diagnose patients or recommend therapy. [employer] drug information isan informational resource designed to [...] effective or appropriate for any given patient. [employer] does not assume any responsibility for any aspect of healthcare administered with the aid of information [employer] provides. The information contained herein is not intended to cover all possible uses, directions, precautions, warnings, drug interactions, allergic reactions, or adverse effects. If you have questions about the drugs you are taking, check with your doctor, nurse or pharmacist. Copyright 8657-0413 [employer]. Version: 10.. Revision Date: 12/16/2018. Education Materials [...] exposed to secondhand smoke. You may use tzjf-ayx-hvoxokf medicine to control fever or pain, unless [...] loosen secretions in the nose and lungs. Avvx-wpd-vpjfjqu cough, cold, and sore-throat medicines will not [...] shortness of breath, or pain with breathing 5355-9211 [employer]. [address] [place] [address] 257[address]. All rights reserved. This information is not intended as a substitute for professional medical care. Always follow yourhealthcare professional's instructions. Additional Information VACCINATE! IT SAVES LIVES! Members of the community who have not yet received the COVID-19 vaccine and would like to receive it can visit one of [facility] vaccine clinics. There are many vaccine clinic locations within the [facility]. For locations and available times, please visit www.gettheshot.coronavirus.[place].gov/. It is important to note that some COVID mobile vaccine clinics are held outdoors and may be canceled in rainy or stormy conditions. To learn more about pediatric vaccinations (ages 5-11), we invite you to visit the [facility] webpage. https://www.[facility].org/pages/6478-Cuznm-Wsqarrgbhos-Hiqnxaiulf-Tunwy-Crn stions.htmlTo learn more about the COVID-19 vaccine, we invite you to visit the CDC website for a list of frequently asked questions. https://www.cdc.gov/coronavirus/2019-ncov/vaccines/faq.html [facility] Patient [facility] Access Instructions: Stay connected with your healthcare team and access your personal medical information anytime with the [facility] Patient Portal. If you would like a full copy of your medical records please contact the [facility] Medical Records Department Thursday through Thursday between 8a.m. and 4:30p.m. Please follow the directions below to access the portal: 1.Access the email account you provided upon registration to the [facility].2.Look for an invitation email from [facility].3.Open the email and access the invitation link: Accept Invitation to [facility] Borrow or Steal4.Fill in the required bee to create your account. Sign into [email or web address] with your username and password that you [...] you will allow to register on the [facility] Portal for access to your information. You can also access the [facility] Patient Portal on the [employer]. Simply click on Health Records under MedSocket and then click on the Curly logo. [...] Call your local pharmacy or go to [email or web address] to find one close to you.3.Make use of household items: Use cat litter or old coffee grounds to dispose medications if other options arenot available. Mix your drugs with these household products, seal them in an airtight container andthrow it into the garbage. Call [facility]: [phone] to be sure your drugs can be [...] aware that I should contact my doctor. 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 Signature: Date/Time: Relationship to Patient: Witness Name/Signature: Date/Time: [facility]03-09-2024 Note ORIGINAL EXAMINATION: TWO XRAY VIEWS OF [...] Date: 11/28/2023 9:17:32 AM Ordering Provider: [facility] [place] Note Sinus rhythm Prolonged PA interval IVCD, consider atypical LBBB Baseline wander in lead(s) V2 Electronic Signature: INDER RPAJAPATI MD 11/28/2023 09:41:01[facility] 02-29-2024 Miscellaneous Notes* Telephone Encounter - Babs Dumont LPN - 11/19/2023 2:01 PM EST Last Office Visit Date: 10/20/2023 Last [facility] Health Visit: Visit date not found Has the patient had an appointment at [facility] in the past year, or do they have an upcoming appointment scheduled at [facility]? YES- Continue with refill request. Future Appointment: 02/01/2024 Pharmacy faxed requesting the following refill Refill(s) Requested: Requested Prescriptions Pending Prescriptions Disp Refills dulaglutide (TRULICITY) 0.75 mg/0.5 mL pen injector 2 mL 0 Sig: Inject 0.75 mg subcutaneously one time a week. Monitor bs closely and keep food log ALLERGIES Allergen Reactions Metformin Diarrhea Lisinopril Cough Sulfamethoxazole-Tr* Rash, Hives, Swelling (home) [phone] (work) [phone] (cell) The patients preferred pharmacy has been captured for this encounter? yes Request is for script(s) to be escript to pharmacy. Babs Dumont LPN documented in this encounterTrihealth [facility]02-22-[facility]24 History of Present illness Narrative* Nidia Delarosa MA - 11/12/2023 11:19 AM EST POPULATION HEALTH NAVIGATION OUTREACH Action/FYI Spoke with patient, declined scheduling. States that [...] visits Payer: Payor: [employer] MEDICARE / Plan: RewardMe / Product Type: HMO / Care Gap [...] 12, 2023 11:19 AM documented in this encounterTrihealth Good Samaritan Hospital02-19-2024 History of Present illness Narrative* Ana [...] PATIENT PRESENTS WITH AN IMPLANTABLE OR ATTACHED CHAR FILTER TANK TENDER: No RADIOLOGY DEPARTMENT: Ultrasound PERIPHERAL IV DATA: Not applicable SIGNED BY: Ana Rosenberg RDMS RVT November 09, 2023 9:15 AM documented in this encounterTrihealth Good Samaritan Hospital02-14-2024 Miscellaneous Notes* Telephone Encounter - Jannie Johnston - 11/04/2023 1:36 PM EST Spoke with patient is going to seek a second opinion at de due to billing. Pt declined sooner appt * Telephone Encounter - Jannie Johnston - 11/04/2023 8:24 AM EST Spoke with pt to schedule follow up. Scheduled. Patients states dr. Fong said he was misdiagnosis and he would like clarification on this. Please advise documented in this encounterTrihealth Good Samaritan Hospital02-12-2024 Instructions* Patient Instructions* Yuliet Fong DO - 11/02/2023 1:54 PM EST Call to establish with a therapist/counselor, local agencies listed below: Counseling and Psychiatry Services [facility] [address] [place], [place] [phone] *counseling, psychiatry and case management *sliding fee scale for [facility] [address] [facility], [address] [address] *counseling, psychiatry and case management [facility] [address] [place] [address] *counseling, psychiatry and case management [facility] Psychiatric Emergency Services (PES) [address] [place] [address] (13/04 crisis line) [facility], [address] [phone] *counseling, psychiatry, case management and housing *sliding fee scale for [facility] [address] [place] [address] *counseling and psychiatry Psych [facility] [address] [place] [address] *counseling and psychiatry Jesenia Gonzalez MD [facility] [address] [place] [address] *counseling and psychiatry [facility] Intake Department for all Offices *counseling, psychiatry and case management [place] [facility] [address] [place], [place] [address] Forensic Clinic, [address], Outpatient, [address] and [facility] [address] [facility] [place] [address] [facility] [address] [place], [place] [address] [facility] Office [facility] [address] [place], [place] [address] [place] [facility] [address] [facility] [address] [place], [place] [address] [place] [facility] [address] [place] [address] [place] [facility] [address] [place], [place]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 Hospital08-18-2023 History of Present illness Narrative* Talita Ross MD - 05/08/2023 8:43 AM EDT Cody Operative Scheduling Details Diagnosis: Dupuytren's disease of the left palm Procedure: Subtotal fasciectomy of left thumb and left 4th ray Dupuytren's disease OR Time Needed: 1 hours Location: [] [facility] [x] [facility] [] [facility] Equipment Request: Lamar, lead hand [] Mini-C-arm [] Large C-arm [...] Extremity Surgery [address], [place] [address] [address] [facility], 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 No suspicious activity was identified. 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 Previous HgbA1c was: Hemoglobin A1C (%) Date Value 03/25/2023 8.2 Blood thinners: None SUPPLEMENTAL DATA REVIEWED: PCP note, Prior imaging, and Recent labs History is obtained from: patient Reviewed nursing note and current pain scale. PAST MEDICAL HISTORY Diagnosis Date Bipolar 1 disorder (HCC) CAD S/P percutaneous coronary angioplasty 2011 AR Hypercholesteremia Hypothyroidism PAST SURGICAL HISTORY Procedure Laterality Date ANGIOPLASTY 2011 [facility] COLONOSCOPY 2009 [place] ARTHROSCOPY/SURGERY 2000 loose body [...] There is no gross ligamentous laxity. MUSCLE: Ironer Machine strength is well maintained. No atrophy present. [...] There is no gross ligamentous laxity. MUSCLE: Ironer Machine strength is well maintained. No atrophy present. [...] trigger finger Informed Consent Consent Obtained: Verbal [place] Protocol A moment to CARE was completed. [...] Ross MD This note was generated using [employer] voice dictation. All resonable efforts were made to correct dictation errors but they still may occur given the nature of the software. Phone: [phone] ([phone] FAX: [phone] ([place]) Medical Decision Making: Problems: Moderate: 1+ chronic illnesses with change Data: Unique source(s) for external note(s) reviewed: 1 Unique test result(s) reviewed: 1 Risk: Moderate: Moderate risk from testing/treatment High: Decision on elective major surgery w/ risk factors Medical Decision Making Level: 4 - Moderate documented in this encounter[place] [address]-07-2023 History of Present illness Narrative* Gavin BetancurDO - 04/27/2023 1:14 PM EDT Images from the original note were not included. [facility] Gavin Betancur DO ASSESSMENT/PLAN: 1. [...] - Behavioral intervention - TSH BLD Gavin Betancur DO SUBJECTIVE: Venkat Marsh is a 57 [...] levofloxacin. He believes that animals around [place] their bodies, and when [...] (HCC) CAD S/P percutaneous coronary angioplasty 2011 AR Hypercholesteremia Hypothyroidism PAST SURGICAL HISTORY Procedure Laterality Date ANGIOPLASTY 2011 [facility] COLONOSCOPY 2009 ELBOW ARTHROSCOPY/SURGERY 2000 loose body [...] 27, 2023 1:14 PM documented in this encounterTrihealth [facility]07-18-2023 Miscellaneous Notes* Telephone Encounter - Gavin [...] hours prior obtaining labs documented in this [facility]07-11-2023 Miscellaneous Notes* Telephone Encounter - Jannie Johnston - 03/31/2023 2:44 PM EDT Spoke with pt will call us back if interested in appt documented in this [address]07-2023 Miscellaneous Notes* Telephone Encounter - Jannie Johnston - 03/27/2023 10:54 AM EDT called and lvm to schedule appt from recieved referral. documented in this [facility]07-05-2023 Miscellaneous Notes* Telephone Encounter - Kathia Hoover - 03/25/2023 4:16 PM EDT Referral to cardiology entered into the [facility] portal on 03/25/2023. Confirmation number [id number]. documented in this [address]05-2023 Miscellaneous Notes* Telephone Encounter - Kathia Hoover - 03/25/2023 4:15 PM EDT Referral to orthopedics entered into the [facility] portal on 03/25/2023. Confirmation number [id number]. documented in this encounterTrihealth [facility]07-05-2023 Miscellaneous Notes* Telephone Encounter - Braydenchristenqasim Kayla - 03/25/2023 4:14 PM EDT Referral to psychiatry entered into the [facility] portal on 03/25/2023. Confirmation number [id number]. documented in this encounterTrihealth Good [facility] Hospital07-05-2023 History of Present illness Narrative* Gavin Betancur DO - 03/25/2023 10:43 AM EDT Images from the original note were not included. [facility] Gavin Betancur DO ASSESSMENT/PLAN: 1. [...] a past medical history of CAD w/ AR in 2015, Type 2 diabetes, Bipolar 1, Colon polyps, Polysubstance use (alcohol, cocaine), Hypercholesterolemia, Hypothyroidism, Asthma, Depression. 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 He requests an [...] these medications could not be given in long-term. Within days of being convicted, his left him and his mother , and as a result he cut his wrists due to suicidal ideation. Immediately after cutting, he regretted his actions, and has not had SI/HI since. Type 2 Diabetes Patient has not taken medication in years. He notes he was previously on metformin, but could not tolerate it due to loose stools. AR Patient had an AR in 2014, and has been on metoprolol ever since. He would like to be set up with Cardiology at this time. PAST MEDICAL HISTORY Diagnosis Date Bipolar 1 disorder (HCC) CAD S/P percutaneous coronary angioplasty 2011 AR Hypercholesteremia Hypothyroidism PAST SURGICAL HISTORY Procedure Laterality Date ANGIOPLASTY 2011 [facility] COLONOSCOPY 2009 EL[place]OW ARTHROSCOPY/SURGERY 2000 loose body [...] note may have been partially generated using [employer] voice recognition system, and there may besome incorrect words, spellings, and punctuation that were not noted in checking the note before saving. Provider: Gavin Betancur DO Signed on: March 25, 2023 10:43 AM documented in this encounterTrihealth Good Samaritan HospitalDiseast [facility] summary Author [facility] Note Date/Time March 08, 2025 4:21 am [facility] Medical Records Department [address] [place] [address] Emergency Department Summary 03/08/25 MR#: [id number] Acct: [id number] Name: VENKAT MARSH Rep #:[id number] : 1965 59 From: Maureen Mancia PCP: Care Physician,No Primary Status :REG ER Location: ED HPI History of Present Illness Chief Complaint: Upper Extremity Injury Informant: patient Narrative Narrative: Patient is a 59-year-old fiszw-kfje-acbixwzk male with history of ELBERT, CHF, hypertension, type 2 diabetes mellitus presenting with left wrist/forearm injury. Patient states he was at the laundrom[employer] earlier with he accidentally karate chopped laundromat door with his left ulnar wrist/distal forearm. He states immediately had some pain but it was not terrible however as the night has gone on he is at increased pain. Anytime he tries to move his wrist he getspain that shoots up into his hand specifically the 3rd through 5th fingers. He did not take any medication for his pain prior to arrival. Denies any numbness. States he is having hard time moving his hand and it feels swollen. No other complaints or concerns reported this time. Not on any blood thinners. No otherinjuries reported. [facility] Medical History Congestive heart failure (CHF) BMI [...] Rx aerosol inhaler (Ventolin HFA) Wheezing ##1 furosemide 20 mg tablet (Lasix) 20 mg [...] DAILY #30 tabs 12/20 05/15 Unknown Rx Allergy/AdvReac Type Severity Reaction Status Date / Time Sulfa (Sulfonamide Allergy Swelling Verified 03/08/25 03:14 Antibiotics) sulfamethoxazole (From Allergy Swelling Verified 03/08/25 03:14 Bactrim) trimethoprim (From Bactrim) Allergy Swelling Verified 03/08/25 03:14 Social History household members: none Smoking Status: Current every day smoker tobacco type: cigarettes ROS ROS ED Constitutional Constitutional ED: Denies chills or fever(s) Musculoskeletal Musculoskeletal: Reports other Details: Left wrist/distal forearm pain Integumentary Denies Abrasions or rash Neurologic Neurologic: Denies paresthesias or weakness Hematologic/Lymphatic Hematologic/Lymphatic: Denies easy bleeding or easy bruising EXAM Physical Exam Const Vital Signs: 03/08/25 03:15 Temperature 97.6 F L Temperature Source Oral Pulse Rate 84 Respiratory Rate 18 Blood Pressure 161/108 H Blood Pressure Mean 125 Pulse Ox 94 Oxygen Delivery Method Room Air Positive well nourished and well developed General Appearance ED: well developed and NAD Chest Wall inspection of chest normal Resp normal respiratory effort Cardio regular rate and regular rhythm Cardio Narrative: 2+ radial pulses present Extremity Extremity Narrative: No obvious deformity of the left upper extremity. No pinpoint area of reproducibility of pain. Does have mild diffuse pain of the distal ulna. No tenderness to palpation or deformity over the 4th or 5th metacarpals. When he gets episodes of shooting pain it radiates in the ulnar nerve distribution. Hassome slight difficulty fully abducting all of his fingers but is able to do all of the other intrinsic hand movements including making an okay sign, making a fist, crossing his fingers and abducting the fingers. Sensation intact in all dermatomes. No tenderness at the anatomical snuffbox. No tenderness with palpation with range of motion of the elbow. No short arc range of motion pain of the wrist. Neuro oriented x3, no focal motor deficits and no sensory deficits noted Sensorium / Orientation: alert Motor Exam: muscle tone normal throughout Psych mental status grossly normal Skin Lesions: no lesions Rashes: no rashes MDM MDM MDM Narrative Medical decision making narrative: Patient evaluated for worsening left wrist pain that radiates to the 3rd [id number] fingers after excellently striking his wrist/distal forearm on a laundromat machine door yesterday afternoon. Compartments are soft. Neurovascularly intact. Low suspicion for any acute neurovascular compromise. Upon arrival vital signs significant for mild hypertension but otherwise normal. Patient appears nontoxic in no acute distress. X-ray of the wrist reviewed by myself as well as radiology does not show any acute fracture but does show soft tissue edema and swelling. Patient will be given a volar splint. Discussed that he could have a neuropraxia or irritation of the ulnar nerve given the distribution of his pain. Will be given outpatient Ortho referral. Given dose of Motrin in the ER (denies any history of renal insufficiency). Counseled on taking erbz-lhp-ewthngd medication including Tylenol and ibuprofen as needed forpain, RICE therapy. He verbalized agreement understand this plan. Discharged home in stable condition. Radiography Diagnostic Testing: Clinical Impression(s) from Imaging Studies Wrist X-Ray 03/08/25 03:30 IMPRESSION: Soft tissue edema and swelling. Reading [facility] [address] Discharge Plan Triage Chief Complaint: Upper Extremity Injury ED Provider: Maureen Gomez Dx/Rx/DC Orders Clinical Impression: Contusion of left wrist, initial encounter Instructions: ED Contusion, Upper Extremity Prescriptions: No Action aspirin 325 MG tablet 325 mg PO DAILY@0800 levothyroxine 125 MCG tablet 125 mcg PO DAILY metoprolol tartrate 50 MG tablet 50 mg PO DAILY doxycycline hyclate 100 MG capsule 100 mg PO BID Qty: 28 0RF nystatin 100,000 unit/mL suspension 5 ml PO 4X/DAY 14 Days Qty: 280 0RF Rx Instructions: Swish for 1 to 2 minutes then spit out medication furosemide [Lasix] 20 mg tablet 20 mg PO DAILY 30 Days Qty: 30 0RF albuterol sulfate [Ventolin HFA] 90 mcg/actuation HFA aerosol inhaler 2 puff inhalation Q4H PRN PRN (Reason: Wheezing) Qty: 1 0RF diphenhydramine HCl [Benadryl Allergy] 25 mg tablet 25 mg PO TID PRN (Reason: itching) Qty: 30 0RF loratadine 10 mg tablet 10 mg PO DAILY Qty: 30 0RF Primary Care Provider: Care Physician,No Primary Referrals: Amrit Hanna DO [Med Staff - Active Staff] - Care Physician,No Primary [Primary Care Provider] - Activity Restrictions/Additional Instructions: Ice and alternate ibuprofen and Tylenol as needed for pain. If the symptoms persist or are not improving please follow-up with orthopedics. You been given their information. Your x-ray did not show any broken bones. Print Language: Congolese Disposition Disposition: Home, Self Care What to do if you have Problems For any increased pain, shortness of breath, bleeding, nausea or vomiting, chestpain, or any unexpected problems, contact your Primary Care Provider. Call [facility] ([phone]) or report to the closest Emergency Room. Call 911 if necessary. 03/08/25 0421 <Electronically signed by Maureen Gomez DO> Cosigner Signature (if applicable): CC: No Primary Care Physician ~ Signed [facility] Work Phone: Evaluation + Plan note No data available for this section [facility] Evaluation note* Diagnosis Encounter to establish care- [...] esophagitis Esophageal reflux documented in this encounter [facility]* Diagnosis Uncontrolled type 2 diabetes mellitus with hyperglycemia (HCC)- Primary [facility]* Diagnosis Uncontrolled type 2 diabetes mellitus with hyperglycemia (HCC)- Primary Mild intermittent asthma, unspecified whether complicated Hypothyroidism, unspecified type documented in this encounter [facility]* Diagnosis Dupuytren's disease of palm of left hand- Primary Cough in adult patient Volar retinacular ganglion Ganglion of joint Dupuytren's disease of palm of left hand [facility] Diagnosis Post-operative state- Primary Other postprocedural status Dupuytren's disease of palm of left hand [facility] Diagnosis Morbid obesity (HCC)- Primary Morbid obesity Hx of acute myocardial infarction Old myocardial infarction ELBERT (obstructive sleep apnea) Obstructive sleep apnea (adult) (pediatric) Coronary artery disease involving [place] coronary artery of [place] heart without angina pectoris Primary hypertension Unspecified essential hypertension Hyperlipidemia, unspecified hyperlipidemia type BRASWELL (dyspnea on exertion) Other dyspnea and respiratory abnormality Tobacco abuse Tobacco use disorder [facility] Diagnosis Skin infection- Primary Unspecified local infection of skin and subcutaneous tissue Chronic cough Cough [facility] Diagnosis Hypothyroidism, unspecified type- Primary Primary insomnia Persistent disorder of initiating or maintaining sleep Uncontrolled type 2 diabetes mellitus with hyperglycemia ([facility]) Bipolar 1 disorder ([facility]) Bipolar I disorder, most recent episode (or current) unspecified Primary hypertension Unspecified essential hypertension Osteoarthritis of both knees, unspecified osteoarthritis type [facility] Diagnosis Dyspnea on exertion- Primary Other dyspnea and respiratory abnormality Chronic cough Cough Tobacco abuse Tobacco use disorder Sleep-disordered breathing Other sleep disturbances [facility] Diagnosis Impingement syndrome of left shoulder- Primary Other affections of shoulder region, not elsewhere classified [facility] this [facility]* Diagnosis Hx of acute myocardial infarction Old myocardial infarction Coronary artery disease involving [place] coronary artery of [place] heart without angina pectoris [facility] Diagnosis Mild intermittent asthma, unspecified whether complicated [facility] Diagnosis Urinary frequency- Primary Hyperglycemia Other abnormal glucose Sinobronchitis Unspecified sinusitis (chronic) [facility]* Diagnosis Uncontrolled type 2 diabetes mellitus with hyperglycemia (HCC)- Primary Encounter for screening for lung cancer Schizoaffective disorder, bipolar type ([facility]) Schizoaffective disorder, unspecified condition Cocaine dependence in [...] or maintaining sleep [facility]* Diagnosis Type 2 diabetes mellitus without retinopathy ([facility])- Primary Type II or unspecified type diabetes mellitus without mention of complication, not stated as uncontrolled Cataract, nuclear sclerotic, both eyes Senile nuclear sclerosis Hyperopia of both eyes Regular astigmatism of both eyes Regular astigmatism Presbyopia of both eyes [facility] Diagnosis Mood disorder ([facility])- Primary Unspecified episodic mood disorder Anxiety Anxiety state, unspecified Insomnia, unspecified type Cocaine use disorder in remission [facility] this [facility]* Diagnosis Posterior auricular lymphadenopathy Enlargement of lymph nodes [facility] this [facility] Diagnosis Primary hypertension Unspecified essential hypertension Coronary artery disease involving [place] coronary artery of [place] heart without angina pectoris BMI 40.0-44.9, adult ([facility]) Body Mass Index 40.0-44.9, adult Type 2 diabetes mellitus with other specified complication, unspecified whether [employer] insulin use ([facility]) [facility]* Diagnosis Mild intermittent asthma, unspecified whether complicated Primary hypertension Unspecified essential hypertension Coronary artery disease involving [place] coronary artery of [place] heart without angina pectoris BMI 40.0-44.9, adult ([facility]) Body Mass Index 40.0-44.9, adult Type 2 diabetes mellitus with other specified complication, unspecified whether [employer] insulin use ([facility]) [facility]* Diagnosis Uncontrolled type 2 diabetes mellitus with hyperglycemia ([facility]) [facility]* Diagnosis Uncontrolled type 2 diabetes mellitus with hyperglycemia ([facility]) Primary hypertension Unspecified essential hypertension Hypothyroidism, unspecified type Hx of acute myocardial infarction Old myocardial infarction Left hand pain Pain in limb Tobacco abuse Tobacco use disorder Mild intermittent asthma, unspecified whether complicated Coronary artery disease involving [place] coronary artery of [place] heart without angina pectoris BMI 40.0-44.9, adult ([facility]) Body Mass Index 40.0-44.9, adult Type 2 diabetes mellitus with other specified complication, unspecified whether snf insulin use ([facility]) [facility]* Diagnosis Mood disorder ([facility])- Primary Unspecified episodic mood disorder Insomnia, unspecified type Anxiety Anxiety state, unspecified Cocaine use disorder in remission [facility]* Diagnosis Uncontrolled type 2 diabetes mellitus with hyperglycemia ([facility])- Primary Mild intermittent asthma, unspecified whether complicated Primary hypertension Unspecified essential hypertension Coronary artery disease involving [place] coronary artery of [place] heart without angina pectoris BMI 40.0-44.9, adult (HCC) Body Mass Index 40.0-44.9, adult Tobacco abuse Tobacco use disorder Seasonal allergies Allergic rhinitis, cause unspecified Microscopic hematuria [facility] this [facility]* Diagnosis Disability examination- Primary Issue of medical certificate for disability examination documented [facility] this [facility]* Diagnosis Contusion of left elbow, initial encounter- Primary documented in this [facility]* Diagnosis Bilateral lower extremity edema- Primary Edema Coronary artery disease involving [place] coronary artery of [place] heart without angina pectoris Primary hypertension Unspecified essential hypertension Glossitis Mood disorder ([facility]) Unspecified episodic mood disorder [facility] this [facility]* Diagnosis Hx of acute myocardial infarction Old myocardial infarction Coronary artery disease involving [place] coronary artery of [place] heart without angina pectoris [facility] this [facility]* Diagnosis Systolic dysfunction without heart failure- Primary Abnormal echocardiogram Nonspecific (abnormal) findings on radiological and other examination of other intrathoracic organs Cardiomyopathy, unspecified type ([facility]) [facility]* Diagnosis HFrEF (heart failure with reduced ejection fraction) ([facility])- Primary Heart failure, unspecified [facility]* Diagnosis Chronic systolic CHF (congestive heart failure) ([facility]) Chronic systolic heart failure Typical atrial flutter ([facility]) Atrial flutter [facility]* Diagnosis Uncontrolled type 2 diabetes mellitus with hyperglycemia ([facility]) Hypothyroidism, unspecified type [facility]* Diagnosis Uncontrolled type 2 diabetes mellitus with hyperglycemia ([facility]) Primary hypertension Unspecified essential hypertension Coronary artery disease involving [place] coronary artery of [place] heart without angina pectoris BMI 40.0-44.9, adult ([facility]) Body Mass Index 40.0-44.9, adult Chronic HFrEF (heart failure with reduced ejection fraction) (HCC)- Primary [facility]* Diagnosis Chronic HFrEF (heart failure with reduced ejection fraction) (HCC)- Primary documented [facility]* Diagnosis Chronic HFrEF (heart failure with reduced ejection fraction) (HCC)- Primary documented in this [facility]* Diagnosis Heart failure with reduced ejection fraction (HCC)- Primary Heart failure, unspecified documented in this [facility]* Diagnosis Mood disorder (HCC) Unspecified episodic mood disorder Insomnia, unspecified type Anxiety Anxiety state, unspecified documented in this encounter [facility]* Diagnosis Uncontrolled type 2 diabetes mellitus with hyperglycemia (HCC) documented in this encounter [facility]* Diagnosis Uncontrolled type 2 diabetes mellitus with hyperglycemia (HCC) Primary hypertension Unspecified essential hypertension Coronary artery disease involving [place] coronary artery of [place] heart without angina pectoris BMI 40.0-44.9, adult (HCC) Body Mass Index 40.0-44.9, adult documented in this encounter [facility]* Diagnosis Hx of acute myocardial infarction Old myocardial infarction Uncontrolled type 2 diabetes mellitus with hyperglycemia (HCC) Mild intermittent asthma, unspecified whether complicated 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) Hypothyroidism, unspecified type documented in this encounter [facility]* Diagnosis Chronic HFrEF (heart failure with reduced ejection fraction) (HCC) documented in this encounter [facility]* Diagnosis Uncontrolled type 2 diabetes mellitus with hyperglycemia (HCC) Primary hypertension Unspecified essential hypertension Coronary artery disease involving [place] coronary artery of [place] heart without angina pectoris BMI 40.0-44.9, adult (HCC) Body Mass Index 40.0-44.9, adult documented in this encounter [facility]* Diagnosis Uncontrolled type 2 diabetes mellitus with hyperglycemia (HCC)- Primary documented in this encounter [facility]* Diagnosis Uncontrolled type 2 diabetes mellitus with hyperglycemia (HCC) documented in this encounter [facility] noteNo assessment information availableWMartins [facility] Work Phone: Evaluation note* Diagnosis Mood disorder (HCC) Unspecified episodic mood disorder Insomnia, unspecified type Anxiety Anxiety state, unspecified Chronic HFrEF (heart failure with reduced ejection fraction) (HCC)- Primary documented in this encounter [facility]* Diagnosis Mood disorder ([facility]) Unspecified episodic mood disorder Insomnia, unspecified type Anxiety Anxiety state, unspecified [facility]* Diagnosis Chronic HFrEF (heart failure with reduced ejection fraction) ([facility]) documented in this encounter [facility]* Diagnosis Uncontrolled type 2 diabetes mellitus with hyperglycemia ([facility]) Mild intermittent asthma, unspecified whether complicated Type 2 diabetes mellitus with albuminuria ([facility]) ([facility]) Hypothyroidism, unspecified type Primary hypertension Unspecified essential hypertension Coronary artery disease involving [place] coronary artery of [place] heart without angina pectoris BMI 40.0-44.9, adult ([facility]) Body Mass Index 40.0-44.9, adult documented in this encounter [facility]* Diagnosis Mixed hyperlipidemia documented in this encounter [facility]* Diagnosis Lipoma of neck- Primary Lipoma of other skin and subcutaneous tissue documented in this encounter [facility]* Diagnosis Hypertension, unspecified type- Primary Chronic HFrEF (heart failure with reduced ejection fraction) ([facility]) Cough, unspecified type Thrush (oral) documented in this encounter [facility]* Diagnosis Neck mass- Primary Swelling, mass, or lump in head and neck Coronary artery disease involving [place] coronary artery of [place] heart without angina pectoris S/P coronary artery stent placement Postsurgical percutaneous transluminal coronary angioplasty status Primary hypertension Unspecified essential hypertension Class 3 severe obesity due to excess calories with serious comorbidity and body mass index (BMI) of 45.0 to 49.9 in adult ([facility]) documented in this encounter [facility]* Diagnosis Neck mass Swelling, mass, or lump in head and neck documented in this encounter [facility]* Diagnosis Encounter for medical examination to establish care- Primary Primary hypertension Unspecified essential hypertension Mixed hyperlipidemia Type 2 diabetes mellitus with other specified complication, unspecified whether [employer] insulin use ([facility]) Coronary artery disease involving [place] coronary artery of [place] heart without angina pectoris S/P coronary artery stent placement Postsurgical percutaneous transluminal coronary angioplasty status Chronic HFrEF (heart failure with reduced ejection fraction) ([facility]) ELBERT (obstructive sleep apnea) Obstructive sleep apnea (adult) (pediatric) Non-compliant patient Personal history of noncompliance with medical treatment, presenting hazards to health Hypothyroidism, unspecified type Tobacco abuse Tobacco use disorder documented in this encounter [facility]* Diagnosis Uncontrolled type 2 diabetes mellitus with hyperglycemia ([facility]) Primary hypertension Unspecified essential hypertension Coronary artery disease involving [place] coronary artery of [place] heart without angina pectoris BMI 40.0-44.9, adult (HCC) Body Mass Index 40.0-44.9, adult documented in this encounter [facility]* Diagnosis Neck mass- Primary Swelling, mass, or lump in head and neck Coronary artery disease involving [place] coronary artery of [place] heart without angina pectoris documented in this encounter [facility]* Diagnosis Neck mass Swelling, mass, or lump in head and neck Nontoxic multinodular goiter Lipoma of neck Lipoma of other skin and subcutaneous tissue documented in this encounter [facility]* Diagnosis Neck mass Swelling, mass, or lump in head and neck Lipoma of neck Lipoma of other skin and subcutaneous tissue documented in this encounter [facility]* Diagnosis Lipoma of neck Lipoma of other skin and subcutaneous tissue Nontoxic multinodular goiter documented in this encounter [facility] note* Diagnosis Mood disorder Unspecified episodic mood disorder Insomnia, unspecified type Anxiety Anxiety state, unspecified documented in this encounter [facility]* Diagnosis Acute congestive heart failure, unspecified heart failure type (HCC)- Primary Acute congestive heart failure, unspecified heart failure type ([facility]) Localized swelling of both lower legs documented in this encounter [facility]* Diagnosis Chronic HFrEF (heart failure with reduced ejection fraction) ([facility])- Primary Tobacco abuse Tobacco use disorder Type 2 diabetes mellitus with diabetic microalbuminuria, with long-term current use of insulin ([facility]) Hypercholesteremia Pure hypercholesterolemia Primary hypertension Unspecified essential hypertension Coronary artery disease involving [place] coronary artery of [place] heart without angina pectoris Bipolar 1 disorder ([facility]) Bipolar I disorder, most recent episode (or current) unspecified Obesity, Class III, BMI >= 40 Morbid obesity Pain of right hand Pain in limb documented in this encounter [facility]* Diagnosis Type 2 diabetes mellitus with diabetic microalbuminuria, with long-term current use of insulin ([facility]) Mood disorder Unspecified episodic mood disorder Insomnia, unspecified type Anxiety Anxiety state, unspecified documented in this encounter [facility]* Diagnosis Mood disorder Unspecified episodic mood disorder Insomnia, unspecified type Anxiety Anxiety state, unspecified [facility]* Diagnosis Pain of right hand Pain in limb [facility]* Diagnosis Mood disorder Unspecified episodic mood disorder Insomnia, unspecified type Anxiety Anxiety state, unspecified [facility]* Diagnosis Hypercholesteremia Pure hypercholesterolemia Tobacco abuse Tobacco use disorder [facility]* Diagnosis Uncontrolled type 2 diabetes mellitus with hyperglycemia ([facility]) Primary hypertension Unspecified essential hypertension Coronary artery disease involving [place] coronary artery of [place] heart without angina pectoris BMI 40.0-44.9, adult ([facility]) Body Mass Index 40.0-44.9, adult [facility]* Diagnosis Mild intermittent asthma, unspecified whether complicated ([facility]) Uncontrolled type 2 diabetes mellitus with hyperglycemia ([facility]) Hypothyroidism, unspecified type [facility]* Diagnosis Pain of right hand- Primary Pain in limb Osteoarthritis of right thumb Pain of right hand Pain in limb [facility]* Diagnosis Type 2 diabetes mellitus with diabetic microalbuminuria, with long-term current use of insulin ([facility])- Primary 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 [facility]* Diagnosis Coronary artery disease involving [place] coronary artery of [place] heart without angina pectoris- Primary Status post insertion of drug-eluting stent into left anterior descending artery for coronary artery disease Primary hypertension Unspecified essential hypertension Mixed hyperlipidemia Diabetes mellitus, non-insulin dependent (NIDDM or type II) ([facility]) Bipolar 1 disorder ([facility]) Bipolar I disorder, most recent episode (or current) unspecified Morbid obesity ([facility]) Morbid obesity ELBERT (obstructive sleep apnea) Obstructive sleep apnea (adult) (pediatric) Acute systolic congestive heart failure ([facility]) Acute systolic heart failure PAF (paroxysmal atrial fibrillation) ([facility]) Atrial fibrillation Chronic HFrEF (heart failure with reduced ejection fraction) ([facility]) HFrEF (heart failure with reduced ejection fraction) ([facility]) Heart failure, unspecified documented in this encounter [facility]* Diagnosis Erectile dysfunction due to diseases classified elsewhere- Primary CKD stage G3a/A3, GFR 45-59 and albumin creatinine ratio >300 mg/g ([facility]) Type 2 diabetes mellitus with hyperglycemia, with long-term current use of insulin ([facility]) Obesity, Class III, BMI >= 40 Morbid obesity Primary hypertension Unspecified essential hypertension Coronary artery disease involving [place] coronary artery of [place] heart without angina pectoris 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 Follow-up with your primary care provider next week as scheduled.[facility] Work Phone: Hospital Discharge instructions Additional Instructions Please follow-up with your family doctor or Dr. Alvarado for repeat evaluation. Take the antibiotic as directed to resolve the soft tissue skin infection to your abdomen. Using nystatin to resolve your thrush and continue with the Lasix to help with your congestive heart failure symptoms. Return to the ER should you have any further concernsW[facility]Ad[facility] Work Phone: Hospital Discharge instructions Additional Instructions Your abdominal redness is not cellulitis. White count normal. Redness blanches. Use loratadine daily to help with itching. Take prednisone as prescribed. Benadryl as needed in addition if more itching. Monitor your glucose. Follow-up with primary care doctor.[facility] Work Phone: Hospital Discharge instructions Additional Instructions Ice and alternate ibuprofen and Tylenol as needed for pain. If the symptoms persist or are not improving please follow-up with orthopedics. You been given their information. Your x-ray did not show any broken bones.[facility] Work Phone: Reason for referral (narrative)* Outpatient Procedure (Routine) - Pending Review Specialty Diagnoses / Procedures Referred By Chata t Referred To [facility] Diagnoses Mild intermittent asthma, unspecified whether complicated Procedures LUNG VOLUMES Marivel Agustin MD 1 [facility] [address] [place] [address] Res[facility] [place] [address] [place] [address] Referral ID Status Reason Start Date Expiration Date Visits Requested Visits Authorized [id number] Pending Review Auto-Generat ed Referral 04/27/2023 05/26/2024 1 1 * Outpatient Procedure (Routine) - Pending Review Specialty Diagnoses / Procedures Referred By Contac t Referred To [facility] Diagnoses Mild intermittent asthma, unspecified whether complicated Procedures LUNG DIFFUSION CAPACITY (DLCO) DIFFUSING CAPACITY [facility]ustin MD [address] [facility] [place] [address] [place] [address] Res[facility] [place] [address] [place] [address] Referral ID Status Reason Start Date Expiration Date Visits Requested Visits Authorized [id number] Pending Review Auto-Generat ed Referral 04/27/2023 05/26/2024 1 1 * Outpatient Procedure (Routine) - Pending Review Specialty Diagnoses / Procedures Referred By Contac t Referred To Contact [facility] Diagnoses Mild intermittent asthma, unspecified whether complicated Procedures SPIROMETRY WITH DILATOR IF OBSTRUCTED BRNCDILAT RSPSE SPMTRY PRE&POST-BRNCDILAT ADMN Marivel Agustin MD 1 [facility] [address] [place] [address] [facility] [place] [address] [place] [address] Referral ID Status Reason Start Date Expiration Date Visits Requested Visits Authorized [id number] Pending Review Auto-Generat ed Referral 04/27/2023 05/26/2024 1 1 [facility] for referral (narrative)* Outpatient Procedure (Routine) - Pending Review Specialty Diagnoses / Procedures Referred By Contac t Referred To Contact HEART [facility] [place] Diagnoses Hx of acute myocardial infarction Coronary artery disease involving [place] coronary artery of [place] heart without angina pectoris Procedures ECHO ECHO TTHRC R-T 2D W/WOM-MODE COMPL SPEC&COLR D Yousuf Ponce MD [address] [place] [address] [facility] Vascular [place] [address] [place] [address] Referral ID Status Reason Start Date Expiration Date Visits Requested Visits Authorized [id number] Pending Review Auto-Generat ed Referral 06/26/2023 06/25/2024 1 1 * Diagnostic Procedure Only (Routine) - Authorized Specialty Diagnoses / Procedures Referred By Contac t Referred To Contact MOLECULAR & FUNCTIONAL IMAGING Diagnoses Hx of acute myocardial infarction Coronary artery disease involving [place] coronary artery of [place] heart without angina pectoris Procedures NM CARDIAC PERF STRESS/PHARM MYOCARDIAL SPECT MULTIPLE STUDIES Yousuf Ponce MD [address] [place] [address] Molecular & Functional Imaging [address] [place] [address] Referral ID Status Reason Start Date Expiration Date Visits Requested Visits Authorized [id number] Authorized Auto-Generat ed Referral 06/26/2023 07/25/2024 1 1 [facility] for referral (narrative)* Diagnostic Procedure Only (Routine) - Pending Review Specialty Diagnoses / Procedures Referred By Chata t Referred To Contact XR IMAGING Diagnoses Osteoarthritis of both knees, unspecified osteoarthritis type Procedures XR KNEE LIMITED 2V AP/LAT LEFT RADIOLOGIC EXAMINATION KNEE 1/2 VIEWS Duncan Craven MD 1 [place] [address] Xr Imaging [place] [address] Referral ID Status Reason Start Date Expiration Date Visits Requested Visits Authorized [id number] Pending Review Auto-Generat ed Referral 08/05/2024 1 1 * Diagnostic Procedure Only (Routine) - Pending Review Specialty Diagnoses / Procedures Referred By Chata t Referred To Contact XR IMAGING Diagnoses Osteoarthritis of both knees, unspecified osteoarthritis type Procedures XR KNEE LIMITED 2V AP/LAT RIGHT RADIOLOGIC EXAMINATION KNEE 1/2 VIEWS Duncan Craven MD 1 [place] [address] [place] [address] Referral ID Status Reason Start Date Expiration Date Visits Requested Visits Authorized [id number] Pending Review Auto-Generat ed Referral 3 08/05/2024 1 1 [facility] for referral (narrative)* Diagnostic Procedure Only (Routine) - Pending Review Specialty Diagnoses / Procedures Referred By Contac t Referred To Contact [facility] Diagnoses Sleep-disordered breathing Procedures HOME SLEEP APNEA TEST (HSAT) SLEEP STD AIRFLOW HRT RATE&O2 SAT EFFORT ASADTT Denise Regan MD 1 [place] [id number] [place] [address] Referral ID Status Reason Start Date Expiration Date Visits Requested Visits Authorized [id number] Pending Review Auto-Generat ed Referral 3 07/06/2024 1 1 * Outpatient Procedure (Routine) - Pending Review Specialty Diagnoses / Procedures Referred By Contac t Referred To Contact [facility] Diagnoses Dyspnea on exertion Chronic cough Tobacco abuse Procedures LUNG VOLUMES Denise Regan MD 1 [place] [address] Respiratory [place] [id number] Referral ID Status Reason Start Date Expiration Date Visits Requested Visits Authorized [id number] Pending Review Auto-Generat ed Referral 3 08/05/2024 1 1 * Outpatient Procedure (Routine) - Authorized Specialty Diagnoses / Procedures Referred By Contac t Referred To Contact [facility] Diagnoses Dyspnea on exertion Chronic cough Tobacco abuse Procedures LUNG DIFFUSION CAPACITY (DLCO) DIFFUSING CAPACITY Denise Regan MD 1 [place] [id number] Respiratory [place] [phone] Referral ID Status Reason Start Date Expiration Date Visits Requested Visits Authorized [id number] Authorized Auto-Generat ed Referral 3 08/05/2024 1 1 * Outpatient Procedure (Routine) - Authorized Specialty Diagnoses / Procedures Referred By Contac t Referred To Contact [facility] Diagnoses Dyspnea on exertion Chronic cough Tobacco abuse Procedures SPIROMETRY WITH DILATOR IF OBSTRUCTED BRNCDILAT RSPSE SPMTRY PRE&POST-BRNCDILAT ADMDenise Renteria MD 1 [place] [address] [facility] [place] [address] [place], [place] [id number] Referral ID Status Reason Start Date Expiration Date Visits Requested Visits Authorized [id number] Authorized Auto-Generat ed Referral 3 08/05/2024 1 1 [facility] for referral (narrative)* Diagnostic Procedure Only (Routine) - Pending Review Specialty Diagnoses / Procedures Referred By Contac t Referred To Contact XR IMAGING Diagnoses Impingement syndrome of left shoulder Procedures XR SHOULDER 3V AP/Y VIEW/AXILLARY LEFT (AK) RADEX SHOULDER COMPLETE MINIMUM 2 VIEWS Alice Arambula DO [address] [place] [address] [place] [address] Referral ID Status Reason Start Date Expiration Date Visits Requested Visits Authorized [id number] Pending Review Auto-Generat ed Referral 06/18/2023 07/17/2024 1 1 * Physical Therapy (Routine) - Pending Review Specialty Diagnoses / Procedures Referred By Contac t Referred To Contact [facility] Diagnoses Impingement syndrome of left shoulder Procedures CONSULT TO PHYSICAL THERAPY PHYSICAL THERAPY EVALUATION HIGH COMPLEX 45 MINS Alice Arambula DO [address] [place] [address] [facility] [place] [address] [place] [address] Referral ID Status Reason Start Date Expiration Date Visits Requested Visits Authorized [id number] Pending Review Auto-Generat ed Referral 06/18/2023 06/17/2024 1 1 [facility] for referral (narrative)* Diagnostic Procedure Only (Routine) - Closed Specialty Diagnoses / Procedures Referred By Contac t Referred To Contact MOLECULAR & FUNCTIONAL IMAGING Diagnoses Hx of acute myocardial infarction Coronary artery disease involving [place] coronary artery of [place] heart without angina pectoris Procedures NM CARDIAC PERF STRESS/PHARM MYOCARDIAL SPECT MULTIPLE STUDIES Yousuf Ponce MD [address] [place] [address] Molecular & Functional Imaging [address] [place] [address] Referral ID Status Reason Start Date Expiration Date V isits Requested Visits Authorized [id number] Closed Auto-Generate d Referral 06/26/2023 07/25/[address] [facility] for referral (narrative)* Diagnostic Procedure Only (Routine) - Pending Review Specialty Diagnoses / Procedures [facility] To Contact XR IMAGING Diagnoses Contusion of left elbow, initial encounter Procedures XR ELBOW SPECIAL VIEWS AP/LAT/OTHER LEFT RADEX ELBOW COMPLETE MINIMUM 3 VIEWS Zaid Szymanski DO [address] [place] [address] Xr Imaging [id number] Referral ID Status Reason Start Date Expiration Date Visits Requested Visits Authorized [id number] Pending Review Auto-Generat ed Referral 03/28/2024 04/27/2025 1 1 [facility] for referral (narrative)* Outpatient Procedure (Routine) - Pending Review Specialty Diagnoses / Procedures Referred By Contac t Referred To Contact [facility] Diagnoses Bilateral lower extremity edema Coronary artery disease involving [place] coronary artery of [place] heart without angina pectoris Procedures ECHO ECHO TTHRC R-T 2D W/WOM-MODE COMPL SPEC&COLR D Duncan Craven MD 1 [place] [address] [facility] Vascular [address] [address] Referral ID Status Reason Start Date Expiration Date Visits Requested Visits Authorized [id number] Pending Review Auto-Generat ed Referral 04/11/2024 04/11/2025 1 1 * Outpatient Procedure (Routine) - Authorized Specialty Diagnoses / Procedures Referred By Contac t Referred To Contact [facility] [place] Diagnoses Bilateral lower extremity edema Procedures US LEG VEIN DVT UNL VAS LAB DUP-SCAN XTR VEINS UNILATERAL/LIMITED STUDY Duncan Craven MD 1 [place] [address] [address] Referral ID Status Reason Start Date Expiration Date Visits Requested Visits Authorized [id number] Authorized Auto-Generat ed Referral 04/11/2024 04/11/2025 1 1 * Outpatient Procedure (Routine) - Authorized Specialty Diagnoses / Procedures Referred By Contac t Referred To [facility] Diagnoses Bilateral lower extremity edema Procedures US LEG VEIN DVT UNL VAS LAB DUP-SCAN XTR VEINS UNILATERAL/LIMITED STUDY Duncan Craven MD 1 [place] [address] [address] Referral ID Status Reason Start Date Expiration Date Visits Requested Visits Authorized [id number] Authorized Auto-Generat ed Referral 04/11/2024 04/11/2025 1 1 [facility] for referral (narrative)* Outpatient Procedure (Routine) - Closed Specialty Diagnoses / Procedures Referred By Contac t Referred To [facility] [place] Diagnoses Hx of acute myocardial infarction Coronary artery disease involving [place] coronary artery of [place] heart without angina pectoris Procedures ECHO ECHO TTHRC R-T 2D W/WOM-MODE COMPL SPEC&COLR D Yousuf Ponce MD [address] [place] [address] [facility] V[facility] [place] [address] [place] [address] Referral ID Status Reason Start Date Expiration Date V isits Requested Visits Authorized [id number] Closed Auto-Generate d Referral 06/26/2023 06/25/2024 1 1 [facility] for referral (narrative)No reason for referral [facility]: Reason for visit Narrative* Diagnostic Procedure Only (Routine) - Closed Specialty Diagnoses / Procedures Referred By Chata chavira Referred To Contact MOLECULAR & FUNCTIONAL IMAGING Diagnoses Hx of acute myocardial infarction Coronary artery disease involving [place] coronary artery of [place] heart without angina pectoris Procedures NM CARDIAC PERF STRESS/PHARM MYOCARDIAL SPECT MULTIPLE STUDIES Yousuf Ponce MD [address], [address] [place] [address] Molecular & Functional Imaging [address] [place] [address] Referral ID Status Reason Start Date Expiration Date V isits Requested Visits Authorized [id number] Closed Auto-Generate d Referral 06/26/2023 07/25/2024 1 1 [facility] for visit Narrative* Outpatient Procedure (Routine) - Closed Specialty Diagnoses / Procedures Referred By Chata t Referred To Contact [facility] Diagnoses Hx of acute myocardial infarction Coronary artery disease involving [place] coronary artery of [place] heart without angina pectoris Procedures ECHO ECHO TTHRC R-T 2D W/WOM-MODE COMPL SPEC&COLR D Yousuf Ponce MD [address] [place] [address] [facility] Vascular [place] [address] [place] [address] Referral ID Status Reason Start Date Expiration Date V isits Requested Visits Authorized [id number] Closed Auto-Generate d Referral 06/26/2023 06/25/2024 1 1 [facility] for visit Narrative* Auth/Cert (Routine) Specialty Diagnoses / Procedures Referred By Chata t Referred To Contact Diagnoses Neck mass Neck mass [R22.1] Procedures BX/EXC LYMPH NODE NEEDLE SUPERFICIAL BIOPSY OR EXCISION LYMPH NODES(S) NEEDLE SUPERFICIAL [facility] INTERVENTIONAL RADIOLOGY [address] [place] [address] Referral ID Status Reason Start Date Expiration Date Visits Re quested Visits Authorized [id number] 1 1 [facility] for visit Narrative* Consult, Test, Treat (Routine) - Closed Specialty Diagnoses / Procedures Referred By Contac t Referred To Contact Diagnoses Type 2 diabetes mellitus with diabetic microalbuminuria, with long-term current use of insulin (HCC) Procedures CONSULT TO DIABETES EDUCATION DSME MEDICAL NUTRITION ASSMT&IVNTJ INDIV EACH 15 AR MEDICAL NUTRITION ASSMT&IVNTJ INDIV EACH 15 AR MEDICAL NUTRITION ASSMT&IVNTJ INDIV EACH 15 AR MEDICAL NUTRITION ASSMT&IVNTJ INDIV EACH 15 AR Nikolai Nazario DO [address] [facility] 5th [place] [address] Phone: tel: fax: Referral ID Status Reason Start Date Expiration Date V isits Requested Visits Authorized [id number] Closed PCP Requested Referral 01/19/2025 01/19/2026 1 1 [facility] for visit Narrative* Diagnostic Procedure Only (Routine) - Closed Specialty Diagnoses / Procedures Referred By Chata t Referred To Contact XR IMAGING Diagnoses Pain of right hand Procedures XR HAND GENERAL 3V PA/LAT/OBL RIGHT RADEX HAND MINIMUM 3 VIEWS Talita Ross MD [facility] [address] [place] [address] Phone: tel: fax: [place] [address] Referral ID Status Reason Start Date Expiration Date V isits Requested Visits Authorized [id number] Closed Auto-Generate d Referral 02/20/2025 03/22/2026 1 1 [facility] Reason for Referral Specialty Diagnoses / Procedures Referred By Chata t Referred To Contact Orthopedics Diagnoses Trigger finger of left hand, unspecified finger Procedures CONSULT TO ORTHOPAEDICS OFFICE/OUTPATIENT [facility] 60-74 MINUTES Duncan Craven MD [address] [place] [address] Referral ID Status Reason Start Date Expiration Date Visits Requested Visits Authorized [id number] Pending Review PCP Requested Referral 03/25/2023 03/24/2024 1 1 Specialty Diagnoses / Procedures Referred By Contac t Referred To Contact Cardiology Diagnoses Hx of acute myocardial infarction Procedures CONSULT TO CARDIOLOGY OFFICE/OUTPATIENT [facility] 60-74 MINUTES Duncan Craven MD 1 [place] [address] Referral ID Status Reason Start Date Expiration Date Visits Requested Visits Authorized [id number] Pending Review PCP Requested Referral 03/25/2023 03/24/2024 1 1 Specialty Diagnoses / Procedures Referred By Contac t Referred To Contact Diagnoses Bipolar 1 disorder (HCC) Procedures CONSULT TO PSYCHIATRY OFFICE/OUTPATIENT [facility] 60-74 MINUTES Duncan Craven MD 1 [place] [address] Referral ID Status Reason Start Date Expiration Date Visits Requested Visits Authorized [id number] Pending Review PCP Requested Referral 03/25/2023 03/24/2024 1 1 Specialty Diagnoses / Procedures Referred By Contac t Referred To Contact Diagnoses Uncontrolled type 2 diabetes mellitus with hyperglycemia (HCC) Procedures CONSULT TO DIABETES EDUCATION DSME/MNT MEDICAL NUTRITION ASSMT&IVNTJ INDIV EACH 15 AR MEDICAL NUTRITION ASSMT&IVNTJ INDIV EACH 15 AR MEDICAL NUTRITION ASSMT&IVNTJ INDIV EACH 15 AR MEDICAL NUTRITION ASSMT&IVNTJ INDIV EACH 15 AR Duncan Craven MD 1 [place] [address] Referral ID Status Reason Start Date Expiration Date Visits Requested Visits Authorized [id number] Pending Review PCP Requested Referral 04/07/2023 04/06/2024 1 1 Specialty Diagnoses / Procedures Referred By Contac t Referred To Contact PULM [facility] Diagnoses Cough in adult patient Procedures CONSULT TO COVID RECOVER CLINIC Talita Ross MD [address] [place] [address] Pulm Covid Recov [facility] [address] [place] [address] Referral ID Status Reason Start Date Expiration Date Visits Requested Visits Authorized [id number] Pending Review PCP Requested Referral 05/08/2023 05/07/2024 1 1 Referral ID Status Reason Start Date Expiration Date Visits Requested Visits Authorized [id number] Pending Review PCP Requested Referral 3 09/09/2024 1 1 Specialty Diagnoses / Procedures Referred By Contac t Referred To Contact XR IMAGING Diagnoses Osteoarthritis of both knees, unspecified osteoarthritis type Procedures XR KNEE LIMITED 2V AP/LAT RIGHT RADIOLOGIC EXAMINATION KNEE 1/2 VIEWS Duncan Craven MD 1 [place] [address] Xr Imaging [id number] Referral ID Status Reason Start Date Expiration Date Visits Requested Visits Authorized [id number] Pending Review Auto-Generat ed Referral 3 10/09/2024 1 1 Specialty Diagnoses / Procedures Referred By Contac t Referred To Contact XR IMAGING Diagnoses Osteoarthritis of both knees, unspecified osteoarthritis type Procedures XR KNEE LIMITED 2V AP/LAT LEFT RADIOLOGIC EXAMINATION KNEE 1/2 VIEWS Duncan Craven MD 1 [place] [address] [place] [address] Referral ID Status Reason Start Date Expiration Date Visits Requested Visits Authorized [id number] Pending Review Auto-Generat ed Referral 3 10/09/2024 1 1 Specialty Diagnoses / Procedures Referred By Contac t Referred To Contact [facility] Diagnoses Mild intermittent asthma, unspecified whether complicated Procedures LUNG DIFFUSION CAPACITY (DLCO) DIFFUSING CAPACITY Duncan Craven MD 1 [place] [address] [facility] [place] [address] [place] [address] Referral ID Status Reason Start Date Expiration Date Visits Requested Visits Authorized [id number] Pending Review Auto-Generat ed Referral 3 10/09/2024 1 1 Specialty Diagnoses / Procedures Referred By Contac t Referred To Contact [facility] Diagnoses Mild intermittent asthma, unspecified whether complicated Procedures LUNG VOLUMES Duncan Craven MD [address] [place] [address] [address] Referral ID Status Reason Start Date Expiration Date Visits Requested Visits Authorized [id number] Pending Review Auto-Generat ed Referral 3 10/09/2024 1 1 Specialty Diagnoses / Procedures Referred By Contac t Referred To Contact [facility] Diagnoses Mild intermittent asthma, unspecified whether complicated Procedures SPIROMETRY - BASELINE AND POST DILATOR BRNCDILAT RSPSE SPMTRY PRE&POST-BRNCDILAT ADMN Duncan Craven MD 1 [place] [address] [address] Referral ID Status Reason Start Date Expiration Date Visits Requested Visits Authorized [id number] Pending Review Auto-Generat ed Referral 3 10/09/2024 1 1 Referral ID Status Reason Start Date Expiration Date Visits Requested Visits Authorized [id number] Authorized PCP Requested Referral 3 09/09/2024 1 1 Specialty Diagnoses / Procedures Referred By Contac t Referred To Contact Podiatry Diagnoses Uncontrolled type 2 diabetes mellitus with hyperglycemia (HCC) Procedures CONSULT TO PODIATRY OFFICE/OUTPATIENT [facility] 60-74 MINUTES Duncan Craven MD 1 [place] [address] Referral ID Status Reason Start Date Expiration Date Visits Requested Visits Authorized [id number] Authorized PCP Requested Referral 3 09/09/2024 1 1 Specialty Diagnoses / Procedures Referred By Contac t Referred To Contact Ophthalmology Diagnoses Uncontrolled type 2 diabetes mellitus with hyperglycemia (HCC) Procedures CONSULT TO OPHTHALMOLOGY OFFICE/OUTPATIENT [facility] 60-74 MINUTES Duncan Craven MD 1 [place] [address] Referral ID Status Reason Start Date Expiration Date Visits Requested Visits Authorized [id number] Authorized PCP Requested Referral 3 09/09/2024 1 1 Specialty Diagnoses / Procedures Referred By Contac t Referred To Contact Diagnoses Uncontrolled type 2 diabetes mellitus with hyperglycemia (HCC) Procedures CONSULT TO DIABETES EDUCATION DSME MEDICAL NUTRITION ASSMT&IVNTJ INDIV EACH 15 AR MEDICAL NUTRITION ASSMT&IVNTJ INDIV EACH 15 AR MEDICAL NUTRITION ASSMT&IVNTJ INDIV EACH 15 AR MEDICAL NUTRITION ASSMT&IVNTJ INDIV EACH 15 AR Duncan Craven MD [address] [place] [address] Referral ID Status Reason Start Date Expiration Date Visits Requested Visits Authorized [id number] Authorized PCP Requested Referral 07/29/2024 07/29/2025 1 1 Specialty Diagnoses / Procedures Referred By Contac t Referred To Contact General Surgery Diagnoses Lipoma of neck Procedures CONSULT TO GENERAL SURGERY OFFICE/OUTPATIENT [facility] 60 MINUTES Duncan Craven MD [address] [place] [address] Referral ID Status Reason Start Date Expiration Date Visits Requested Visits Authorized [id number] Authorized PCP Requested Referral 10/13/2024 10/13/2025 1 1 Specialty Diagnoses / Procedures Referred By Contac t Referred To Contact Cardiology Diagnoses Chronic HFrEF (heart failure with reduced ejection fraction) (HCC) Procedures CONSULT TO CARDIOLOGY OFFICE/OUTPATIENT [facility] 60 MINUTES Claus Anderson DO 1 [facility] [address] [place] [address] Yousuf Ponce MD [address] [facility] [address] [place] [address] Referral ID Status Reason Start Date Expiration Date Visits Requested Visits Authorized [id number] Authorized PCP Requested Referral 10/18/2024 10/18/2025 1 1 Specialty Diagnoses / Procedures Referred By Contac t Referred To Contact CT IMAGING Diagnoses Neck mass Procedures CT NECK SOFT TISSUE W IVCON CT SOFT TISSUE NECK W/CONTRAST MATERIAL Inder Bruce MD 1 [facility] [address] [place] [address] Ct Imaging [place] [address] Referral ID Status Reason Start Date Expiration Date Visits Requested Visits Authorized [id number] Authorized Auto-Generat ed Referral 10/18/2024 11/17/2025 1 [...] No Family History Records Found Advance Directives Date Activated Date Inactivated Comments 04/13/2024 10:22 PM 04/15/2024 4:19 PM Question Answer Comments Full Code Order Discussed With: Patient Date Activated Date Inactivated Comments 04/13/2024 10:22 PM 04/15/2024 4:19 PM Question Answer Comments Full Code Order Discussed With: Patient Advance Directive Response Recorded Date/ Time Living Will No September 04, 2 023 7:50am Power of Bath Mix Operator No September 04, 2023 7:50am Advance Directive Response Recorded Date/ Time Living Will No December 23, 2024 12:46am Do you have a Healthcare Power of Bath Mix Operator? No December 23, 2024 12:46am Living Will No August 31, 2 024 9:40am Do you have a Healthcare Power of Bath Mix Operator? No August 31, 2024 9:40am Advance Directive Response Recorded Date/ Time Living Will No December 23, 2024 12:46am Do you have a Healthcare Power of Bath Mix Operator? No December 23, 2024 12:46am Living Will No January 05, 2025 9:24pm Do you have a Healthcare Power of Bath Mix Operator? No January 05, 2025 9:24pm Date Activated Date Inactivated Comments 01/13/2025 11:52 PM 01/17/2025 1:32 PM Advance Directive Response Recorded Date/ Time Living Will No December 23, 2024 12:46am Do you have a Healthcare Power of Bath Mix Operator? No December 23, 2024 12:46am Living Will No January 05, 2025 9:24pm Do you have a Healthcare Power of Bath Mix Operator? No January 05, 2025 9:24pm Do you have a Healthcare Power of Bath Mix Operator? No March 08, 2025 3:17am Chief Complaint and Reason for Visit Chief Complaint hyperglycemia Chief Complaint Admit Date sob August 31, 2024 8:35am FALL December 23, 2024 12:3 8am Chief Complaint Admit Date fallDecember 23, 2024 12:3 8am GEN ILLNESS January 05, 2025 9:0 2pm Chief Complaint Admit Date fallDecember 23, 2024 12:3 8am GEN ILLNESS January 05, 2025 9:0 2pm left arm injury March 08, 2025 3:13 am Additional Source Comments Source Comments (unrecognize d section and content) In the event this informatio n is protected by the Federal Confidentiality of Alcohol and Drug Abuse Patient Records regulations: The Federal rules restrict any use of the information to criminally investigate or prosecute any alcohol or drug abuse patient.[facility] the event this information is protected by the Federal Confidentiality of Alcohol and Drug Abuse Patient Records regulations: The Federal rules restrict any use of the information to criminally investigate or prosecute any alcohol or drug abuse patient.[facility] Hospital[facility] the event this information is protected by the Federal Confidentiality of Alcohol and Drug Abuse Patient Records regulations: The Federal rules restrict any use of the information to criminally investigate or prosecute any alcohol or drug abuse patient.[facility] the event this information is protected by the Federal Confidentiality of Alcohol and Drug Abuse Patient Records regulations: The Federal rules restrict any use of the information to criminally investigate or prosecute any alcohol or drug abuse patient.[facility] HospitalIn the event this information is protected by the Federal Confidentiality of Alcohol and Drug Abuse Patient Records regulations: The Federal rules restrict any use of the information to criminally investigate or prosecute any alcohol or drug abuse patient.[facility] HospitalIn the event this information is protected by the Federal Confidentiality of Alcohol and Drug Abuse Patient Records regulations: The Federal rules restrict any use of the information to criminally investigate or prosecute any alcohol or drug abuse patient.[facility] HospitalIn the event this information is protected by the Federal Confidentiality of Alcohol and Drug Abuse Patient Records regulations: The Federal rules restrict any use of the information to criminally investigate or prosecute any alcohol or drug abuse patient.[facility] HospitalIn the event this information is protected by the Federal Confidentiality of Alcohol and Drug Abuse Patient Records regulations: The Federal rules restrict any use of the information to criminally investigate or prosecute any alcohol or drug abuse patient.[facility] HospitalIn the event this information is protected by the Federal Confidentiality of Alcohol and Drug Abuse Patient Records regulations: The Federal rules restrict any use of the information to criminally investigate or prosecute any alcohol or drug abuse patient.[facility] HospitalIn the event this information is protected by the Federal Confidentiality of Alcohol and Drug Abuse Patient Records regulations: The Federal rules restrict any use of the information to criminally investigate or prosecute any alcohol or drug abuse patient.[facility] HospitalIn the event this information is protected by the Federal Confidentiality of Alcohol and Drug Abuse Patient Records regulations: The Federal rules restrict any use of the information to criminally investigate or prosecute any alcohol or drug abuse patient.[facility] HospitalIn the event this information is protected by the Federal Confidentiality of Alcohol and Drug Abuse Patient Records regulations: The Federal rules restrict any use of the information to criminally investigate or prosecute any alcohol or drug abuse patient.[facility] HospitalIn the event this information is protected by the Federal Confidentiality of Alcohol and Drug Abuse Patient Records regulations: The Federal rules restrict any use of the information to criminally investigate or prosecute any alcohol or drug abuse patient.[facility] HospitalIn the event this information is protected by the Federal Confidentiality of Alcohol and Drug Abuse Patient Records regulations: The Federal rules restrict any use of the information to criminally investigate or prosecute any alcohol or drug abuse patient.[facility] HospitalIn the event this information is protected by the Federal Confidentiality of Alcohol and Drug Abuse Patient Records regulations: The Federal rules restrict any use of the information to criminally investigate or prosecute any alcohol or drug abuse patient.[facility] HospitalIn the event this information is protected by the Federal Confidentiality of Alcohol and Drug Abuse Patient Records regulations: The Federal rules restrict any use of the information to criminally investigate or prosecute any alcohol or drug abuse patient.[facility] HospitalIn the event this information is protected by the Federal Confidentiality of Alcohol and Drug Abuse Patient Records regulations: The Federal rules restrict any use of the information to criminally investigate or prosecute any alcohol or drug abuse patient.[facility] HospitalIn the event this information is protected by the Federal Confidentiality of Alcohol and Drug Abuse Patient Records regulations: The Federal rules restrict any use of the information to criminally investigate or prosecute any alcohol or drug abuse patient.[facility] HospitalIn the event this information is protected by the Federal Confidentiality of Alcohol and Drug Abuse Patient Records regulations: The Federal rules restrict any use of the information to criminally investigate or prosecute any alcohol or drug abuse patient.[facility] HospitalIn the event this information is protected by the Federal Confidentiality of Alcohol and Drug Abuse Patient Records regulations: The Federal rules restrict any use of the information to criminally investigate or prosecute any alcohol or drug abuse patient.[facility] HospitalIn the event this information is protected by the Federal Confidentiality of Alcohol and Drug Abuse Patient Records regulations: The Federal rules restrict any use of the information to criminally investigate or prosecute any alcohol or drug abuse patient.[facility] HospitalIn the event this information is protected by the Federal Confidentiality of Alcohol and Drug Abuse Patient Records regulations: The Federal rules restrict any use of the information to criminally investigate or prosecute any alcohol or drug abuse patient.[facility] the event this information is protected by the Federal Confidentiality of Alcohol and Drug Abuse Patient Records regulations: The Federal rules restrict any use of the information to criminally investigate or prosecute any alcohol or drug abuse patient.[facility] HospitalIn the event this information is protected by the Federal Confidentiality of Alcohol and Drug Abuse Patient Records regulations: The Federal rules restrict any use of the information to criminally investigate or prosecute any alcohol or drug abuse patient.[facility] HospitalIn the event this information is protected by the Federal Confidentiality of Alcohol and Drug Abuse Patient Records regulations: The Federal rules restrict any use of the information to criminally investigate or prosecute any alcohol or drug abuse patient.[facility] HospitalIn the event this information is protected by the Federal Confidentiality of Alcohol and Drug Abuse Patient Records regulations: The Federal rules restrict any use of the information to criminally investigate or prosecute any alcohol or drug abuse patient.[facility] HospitalIn the event this information is protected by the Federal Confidentiality of Alcohol and Drug Abuse Patient Records regulations: The Federal rules restrict any use of the information to criminally investigate or prosecute any alcohol or drug abuse patient.[facility] HospitalIn the event this information is protected by the Federal Confidentiality of Alcohol and Drug Abuse Patient Records regulations: The Federal rules restrict any use of the information to criminally investigate or prosecute any alcohol or drug abuse patient.[facility] HospitalIn the event this information is protected by the Federal Confidentiality of Alcohol and Drug Abuse Patient Records regulations: The Federal rules restrict any use of the information to criminally investigate or prosecute any alcohol or drug abuse patient.[facility] HospitalIn the event this information is protected by the Federal Confidentiality of Alcohol and Drug Abuse Patient Records regulations: The Federal rules restrict any use of the information to criminally investigate or prosecute any alcohol or drug abuse patient.[facility] HospitalIn the event this information is protected by the Federal Confidentiality of Alcohol and Drug Abuse Patient Records regulations: The Federal rules restrict any use of the information to criminally investigate or prosecute any alcohol or drug abuse patient.[facility] HospitalIn the event this information is protected by the Federal Confidentiality of Alcohol and Drug Abuse Patient Records regulations: The Federal rules restrict any use of the information to criminally investigate or prosecute any alcohol or drug abuse patient.[facility] HospitalIn the event this information is protected by the Federal Confidentiality of Alcohol and Drug Abuse Patient Records regulations: The Federal rules restrict any use of the information to criminally investigate or prosecute any alcohol or drug abuse patient.[facility] HospitalIn the event this information is protected by the Federal Confidentiality of Alcohol and Drug Abuse Patient Records regulations: The Federal rules restrict any use of the information to criminally investigate or prosecute any alcohol or drug abuse patient.[facility] HospitalIn the event this information is protected by the Federal Confidentiality of Alcohol and Drug Abuse Patient Records regulations: The Federal rules restrict any use of the information to criminally investigate or prosecute any alcohol or drug abuse patient.[facility] HospitalIn the event this information is protected by the Federal Confidentiality of Alcohol and Drug Abuse Patient Records regulations: The Federal rules restrict any use of the information to criminally investigate or prosecute any alcohol or drug abuse patient.[facility] HospitalIn the event this information is protected by the Federal Confidentiality of Alcohol and Drug Abuse Patient Records regulations: The Federal rules restrict any use of the information to criminally investigate or prosecute any alcohol or drug abuse patient.[facility] HospitalIn the event this information is protected by the Federal Confidentiality of Alcohol and Drug Abuse Patient Records regulations: The Federal rules restrict any use of the information to criminally investigate or prosecute any alcohol or drug abuse patient.[facility] HospitalIn the event this information is protected by the Federal Confidentiality of Alcohol and Drug Abuse Patient Records regulations: The Federal rules restrict any use of the information to criminally investigate or prosecute any alcohol or drug abuse patient.[facility] HospitalIn the event this information is protected by the Federal Confidentiality of Alcohol and Drug Abuse Patient Records regulations: The Federal rules restrict any use of the information to criminally investigate or prosecute any alcohol or drug abuse patient.[facility] HospitalIn the event this information is protected by the Federal Confidentiality of Alcohol and Drug Abuse Patient Records regulations: The Federal rules restrict any use of the information to criminally investigate or prosecute any alcohol or drug abuse patient.[facility] HospitalIn the event this information is protected by the Federal Confidentiality of Alcohol and Drug Abuse Patient Records regulations: The Federal rules restrict any use of the information to criminally investigate or prosecute any alcohol or drug abuse patient.[facility] HospitalIn the event this information is protected by the Federal Confidentiality of Alcohol and Drug Abuse Patient Records regulations: The Federal rules restrict any use of the information to criminally investigate or prosecute any alcohol or drug abuse patient.[facility] HospitalIn the event this information is protected by the Federal Confidentiality of Alcohol and Drug Abuse Patient Records regulations: The Federal rules restrict any use of the information to criminally investigate or prosecute any alcohol or drug abuse patient.[facility] HospitalIn the event this information is protected by the Federal Confidentiality of Alcohol and Drug Abuse Patient Records regulations: The Federal rules restrict any use of the information to criminally investigate or prosecute any alcohol or drug abuse patient.[facility] HospitalIn the event this information is protected by the Federal Confidentiality of Alcohol and Drug Abuse Patient Records regulations: The Federal rules restrict any use of the information to criminally investigate or prosecute any alcohol or drug abuse patient.[facility] HospitalIn the event this information is protected by the Federal Confidentiality of Alcohol and Drug Abuse Patient Records regulations: The Federal rules restrict any use of the information to criminally investigate or prosecute any alcohol or drug abuse patient.[facility] HospitalIn the event this information is protected by the Federal Confidentiality of Alcohol and Drug Abuse Patient Records regulations: The Federal rules restrict any use of the information to criminally investigate or prosecute any alcohol or drug abuse patient.[facility] HospitalIn the event this information is protected by the Federal Confidentiality of Alcohol and Drug Abuse Patient Records regulations: The Federal rules restrict any use of the information to criminally investigate or prosecute any alcohol or drug abuse patient.[facility] HospitalIn the event this information is protected by the Federal Confidentiality of Alcohol and Drug Abuse Patient Records regulations: The Federal rules restrict any use of the information to criminally investigate or prosecute any alcohol or drug abuse patient.[facility] HospitalIn the event this information is protected by the Federal Confidentiality of Alcohol and Drug Abuse Patient Records regulations: The Federal rules restrict any use of the information to criminally investigate or prosecute any alcohol or drug abuse patient.[facility] HospitalIn the event this information is protected by the Federal Confidentiality of Alcohol and Drug Abuse Patient Records regulations: The Federal rules restrict any use of the information to criminally investigate or prosecute any alcohol or drug abuse patient.[facility] HospitalIn the event this information is protected by the Federal Confidentiality of Alcohol and Drug Abuse Patient Records regulations: The Federal rules restrict any use of the information to criminally investigate or prosecute any alcohol or drug abuse patient.[facility] HospitalIn the event this information is protected by the Federal Confidentiality of Alcohol and Drug Abuse Patient Records regulations: The Federal rules restrict any use of the information to criminally investigate or prosecute any alcohol or drug abuse patient.[facility] HospitalIn the event this information is protected by the Federal Confidentiality of Alcohol and Drug Abuse Patient Records regulations: The Federal rules restrict any use of the information to criminally investigate or prosecute any alcohol or drug abuse patient.[facility] HospitalIn the event this information is protected by the Federal Confidentiality of Alcohol and Drug Abuse Patient Records regulations: The Federal rules restrict any use of the information to criminally investigate or prosecute any alcohol or drug abuse patient.[facility] HospitalIn the event this information is protected by the Federal Confidentiality of Alcohol and Drug Abuse Patient Records regulations: The Federal rules restrict any use of the information to criminally investigate or prosecute any alcohol or drug abuse patient.[facility] HospitalIn the event this information is protected by the Federal Confidentiality of Alcohol and Drug Abuse Patient Records regulations: The Federal rules restrict any use of the information to criminally investigate or prosecute any alcohol or drug abuse patient.[facility] HospitalIn the event this information is protected by the Federal Confidentiality of Alcohol and Drug Abuse Patient Records regulations: The Federal rules restrict any use of the information to criminally investigate or prosecute any alcohol or drug abuse patient.[facility] HospitalIn the event this information is protected by the Federal Confidentiality of Alcohol and Drug Abuse Patient Records regulations: The Federal rules restrict any use of the information to criminally investigate or prosecute any alcohol or drug abuse patient.[facility] HospitalIn the event this information is protected by the Federal Confidentiality of Alcohol and Drug Abuse Patient Records regulations: The Federal rules restrict any use of the information to criminally investigate or prosecute any alcohol or drug abuse patient.[facility] HospitalIn the event this information is protected by the Federal Confidentiality of Alcohol and Drug Abuse Patient Records regulations: The Federal rules restrict any use of the information to criminally investigate or prosecute any alcohol or drug abuse patient.[facility] HospitalIn the event this information is protected by the Federal Confidentiality of Alcohol and Drug Abuse Patient Records regulations: The Federal rules restrict any use of the information to criminally investigate or prosecute any alcohol or drug abuse patient.[facility] HospitalIn the event this information is protected by the Federal Confidentiality of Alcohol and Drug Abuse Patient Records regulations: The Federal rules restrict any use of the information to criminally investigate or prosecute any alcohol or drug abuse patient.[facility] HospitalIn the event this information is protected by the Federal Confidentiality of Alcohol and Drug Abuse Patient Records regulations: The Federal rules restrict any use of the information to criminally investigate or prosecute any alcohol or drug abuse patient.[facility] HospitalIn the event this information is protected by the Federal Confidentiality of Alcohol and Drug Abuse Patient Records regulations: The Federal rules restrict any use of the information to criminally investigate or prosecute any alcohol or drug abuse patient.[facility] HospitalIn the event this information is protected by the Federal Confidentiality of Alcohol and Drug Abuse Patient Records regulations: The Federal rules restrict any use of the information to criminally investigate or prosecute any alcohol or drug abuse patient.[facility] HospitalIn the event this information is protected by the Federal Confidentiality of Alcohol and Drug Abuse Patient Records regulations: The Federal rules restrict any use of the information to criminally investigate or prosecute any alcohol or drug abuse patient.[facility] HospitalIn the event this information is protected by the Federal Confidentiality of Alcohol and Drug Abuse Patient Records regulations: The Federal rules restrict any use of the information to criminally investigate or prosecute any alcohol or drug abuse patient.[facility] HospitalIn the event this information is protected by the Federal Confidentiality of Alcohol and Drug Abuse Patient Records regulations: The Federal rules restrict any use of the information to criminally investigate or prosecute any alcohol or drug abuse patient.[facility] HospitalIn the event this information is protected by the Federal Confidentiality of Alcohol and Drug Abuse Patient Records regulations: The Federal rules restrict any use of the information to criminally investigate or prosecute any alcohol or drug abuse patient.[facility] HospitalIn the event this information is protected by the Federal Confidentiality of Alcohol and Drug Abuse Patient Records regulations: The Federal rules restrict any use of the information to criminally investigate or prosecute any alcohol or drug abuse patient.[facility] the event this information is protected by the Federal Confidentiality of Alcohol and Drug Abuse Patient Records regulations: The Federal rules restrict any use of the information to criminally investigate or prosecute any alcohol or drug abuse patient.[facility] HospitalIn the event this information is protected by the Federal Confidentiality of Alcohol and Drug Abuse Patient Records regulations: The Federal rules restrict any use of the information to criminally investigate or prosecute any alcohol or drug abuse patient.[facility] HospitalIn the event this information is protected by the Federal Confidentiality of Alcohol and Drug Abuse Patient Records regulations: The Federal rules restrict any use of the information to criminally investigate or prosecute any alcohol or drug abuse patient.[facility] HospitalIn the event this information is protected by the Federal Confidentiality of Alcohol and Drug Abuse Patient Records regulations: The Federal rules restrict any use of the information to criminally investigate or prosecute any alcohol or drug abuse patient.[facility] HospitalIn the event this information is protected by the Federal Confidentiality of Alcohol and Drug Abuse Patient Records regulations: The Federal rules restrict any use of the information to criminally investigate or prosecute any alcohol or drug abuse patient.[facility] HospitalIn the event this information is protected by the Federal Confidentiality of Alcohol and Drug Abuse Patient Records regulations: The Federal rules restrict any use of the information to criminally investigate or prosecute any alcohol or drug abuse patient.[facility] HospitalIn the event this information is protected by the Federal Confidentiality of Alcohol and Drug Abuse Patient Records regulations: The Federal rules restrict any use of the information to criminally investigate or prosecute any alcohol or drug abuse patient.[facility] HospitalIn the event this information is protected by the Federal Confidentiality of Alcohol and Drug Abuse Patient Records regulations: The Federal rules restrict any use of the information to criminally investigate or prosecute any alcohol or drug abuse patient.[facility] HospitalIn the event this information is protected by the Federal Confidentiality of Alcohol and Drug Abuse Patient Records regulations: The Federal rules restrict any use of the information to criminally investigate or prosecute any alcohol or drug abuse patient.[facility] HospitalIn the event this information is protected by the Federal Confidentiality of Alcohol and Drug Abuse Patient Records regulations: The Federal rules restrict any use of the information to criminally investigate or prosecute any alcohol or drug abuse patient.[facility] HospitalIn the event this information is protected by the Federal Confidentiality of Alcohol and Drug Abuse Patient Records regulations: The Federal rules restrict any use of the information to criminally investigate or prosecute any alcohol or drug abuse patient.[facility] HospitalIn the event this information is protected by the Federal Confidentiality of Alcohol and Drug Abuse Patient Records regulations: The Federal rules restrict any use of the information to criminally investigate or prosecute any alcohol or drug abuse patient.[facility] HospitalIn the event this information is protected by the Federal Confidentiality of Alcohol and Drug Abuse Patient Records regulations: The Federal rules restrict any use of the information to criminally investigate or prosecute any alcohol or drug abuse patient.[facility] HospitalIn the event this information is protected by the Federal Confidentiality of Alcohol and Drug Abuse Patient Records regulations: The Federal rules restrict any use of the information to criminally investigate or prosecute any alcohol or drug abuse patient.[facility] HospitalIn the event this information is protected by the Federal Confidentiality of Alcohol and Drug Abuse Patient Records regulations: The Federal rules restrict any use of the information to criminally investigate or prosecute any alcohol or drug abuse patient.[facility] HospitalIn the event this information is protected by the Federal Confidentiality of Alcohol and Drug Abuse Patient Records regulations: The Federal rules restrict any use of the information to criminally investigate or prosecute any alcohol or drug abuse patient.[facility] HospitalIn the event this information is protected by the Federal Confidentiality of Alcohol and Drug Abuse Patient Records regulations: The Federal rules restrict any use of the information to criminally investigate or prosecute any alcohol or drug abuse patient.[facility] HospitalIn the event this information is protected by the Federal Confidentiality of Alcohol and Drug Abuse Patient Records regulations: The Federal rules restrict any use of the information to criminally investigate or prosecute any alcohol or drug abuse patient.[facility] HospitalIn the event this information is protected by the Federal Confidentiality of Alcohol and Drug Abuse Patient Records regulations: The Federal rules restrict any use of the information to criminally investigate or prosecute any alcohol or drug abuse patient.[facility] HospitalIn the event this information is protected by the Federal Confidentiality of Alcohol and Drug Abuse Patient Records regulations: The Federal rules restrict any use of the information to criminally investigate or prosecute any alcohol or drug abuse patient.[facility] HospitalIn the event this information is protected by the Federal Confidentiality of Alcohol and Drug Abuse Patient Records regulations: The Federal rules restrict any use of the information to criminally investigate or prosecute any alcohol or drug abuse patient.[facility] HospitalIn the event this information is protected by the Federal Confidentiality of Alcohol and Drug Abuse Patient Records regulations: The Federal rules restrict any use of the information to criminally investigate or prosecute any alcohol or drug abuse patient.[facility] HospitalIn the event this information is protected by the Federal Confidentiality of Alcohol and Drug Abuse Patient Records regulations: The Federal rules restrict any use of the information to criminally investigate or prosecute any alcohol or drug abuse patient.[facility] HospitalIn the event this information is protected by the Federal Confidentiality of Alcohol and Drug Abuse Patient Records regulations: The Federal rules restrict any use of the information to criminally investigate or prosecute any alcohol or drug abuse patient.[facility] HospitalIn the event this information is protected by the Federal Confidentiality of Alcohol and Drug Abuse Patient Records regulations: The Federal rules restrict any use of the information to criminally investigate or prosecute any alcohol or drug abuse patient.[facility] HospitalIn the event this information is protected by the Federal Confidentiality of Alcohol and Drug Abuse Patient Records regulations: The Federal rules restrict any use of the information to criminally investigate or prosecute any alcohol or drug abuse patient.[facility] HospitalIn the event this information is protected by the Federal Confidentiality of Alcohol and Drug Abuse Patient Records regulations: The Federal rules restrict any use of the information to criminally investigate or prosecute any alcohol or drug abuse patient.[facility] HospitalIn the event this information is protected by the Federal Confidentiality of Alcohol and Drug Abuse Patient Records regulations: The Federal rules restrict any use of the information to criminally investigate or prosecute any alcohol or drug abuse patient.[facility] HospitalIn the event this information is protected by the Federal Confidentiality of Alcohol and Drug Abuse Patient Records regulations: The Federal rules restrict any use of the information to criminally investigate or prosecute any alcohol or drug abuse patient.[facility] HospitalIn the event this information is protected by the Federal Confidentiality of Alcohol and Drug Abuse Patient Records regulations: The Federal rules restrict any use of the information to criminally investigate or prosecute any alcohol or drug abuse patient.[facility] HospitalIn the event this information is protected by the Federal Confidentiality of Alcohol and Drug Abuse Patient Records regulations: The Federal rules restrict any use of the information to criminally investigate or prosecute any alcohol or drug abuse patient.[facility] HospitalIn the event this information is protected by the Federal Confidentiality of Alcohol and Drug Abuse Patient Records regulations: The Federal rules restrict any use of the information to criminally investigate or prosecute any alcohol or drug abuse patient.[facility] HospitalIn the event this information is protected by the Federal Confidentiality of Alcohol and Drug Abuse Patient Records regulations: The Federal rules restrict any use of the information to criminally investigate or prosecute any alcohol or drug abuse patient.[facility] HospitalIn the event this information is protected by the Federal Confidentiality of Alcohol and Drug Abuse Patient Records regulations: The Federal rules restrict any use of the information to criminally investigate or prosecute any alcohol or drug abuse patient.[facility] HospitalIn the event this information is protected by the Federal Confidentiality of Alcohol and Drug Abuse Patient Records regulations: The Federal rules restrict any use of the information to criminally investigate or prosecute any alcohol or drug abuse patient.[facility] HospitalIn the event this information is protected by the Federal Confidentiality of Alcohol and Drug Abuse Patient Records regulations: The Federal rules restrict any use of the information to criminally investigate or prosecute any alcohol or drug abuse patient.[facility] HospitalIn the event this information is protected by the Federal Confidentiality of Alcohol and Drug Abuse Patient Records regulations: The Federal rules restrict any use of the information to criminally investigate or prosecute any alcohol or drug abuse patient.[facility] HospitalIn the event this information is protected by the Federal Confidentiality of Alcohol and Drug Abuse Patient Records regulations: The Federal rules restrict any use of the information to criminally investigate or prosecute any alcohol or drug abuse patient.[facility] HospitalIn the event this information is protected by the Federal Confidentiality of Alcohol and Drug Abuse Patient Records regulations: The Federal rules restrict any use of the information to criminally investigate or prosecute any alcohol or drug abuse patient.[facility] HospitalIn the event this information is protected by the Federal Confidentiality of Alcohol and Drug Abuse Patient Records regulations: The Federal rules restrict any use of the information to criminally investigate or prosecute any alcohol or drug abuse patient.[facility] HospitalIn the event this information is protected by the Federal Confidentiality of Alcohol and Drug Abuse Patient Records regulations: The Federal rules restrict any use of the information to criminally investigate or prosecute any alcohol or drug abuse patient.[facility] HospitalIn the event this information is protected by the Federal Confidentiality of Alcohol and Drug Abuse Patient Records regulations: The Federal rules restrict any use of the information to criminally investigate or prosecute any alcohol or drug abuse patient.[facility] HospitalIn the event this information is protected by the Federal Confidentiality of Alcohol and Drug Abuse Patient Records regulations: The Federal rules restrict any use of the information to criminally investigate or prosecute any alcohol or drug abuse patient.[facility] HospitalIn the event this information is protected by the Federal Confidentiality of Alcohol and Drug Abuse Patient Records regulations: The Federal rules restrict any use of the information to criminally investigate or prosecute any alcohol or drug abuse patient.[facility] HospitalIn the event this information is protected by the Federal Confidentiality of Alcohol and Drug Abuse Patient Records regulations: The Federal rules restrict any use of the information to criminally investigate or prosecute any alcohol or drug abuse patient.[facility] HospitalIn the event this information is protected by the Federal Confidentiality of Alcohol and Drug Abuse Patient Records regulations: The Federal rules restrict any use of the information to criminally investigate or prosecute any alcohol or drug abuse patient.[facility] HospitalIn the event this information is protected by the Federal Confidentiality of Alcohol and Drug Abuse Patient Records regulations: The Federal rules restrict any use of the information to criminally investigate or prosecute any alcohol or drug abuse patient.[facility] HospitalIn the event this information is protected by the Federal Confidentiality of Alcohol and Drug Abuse Patient Records regulations: The Federal rules restrict any use of the information to criminally investigate or prosecute any alcohol or drug abuse patient.[facility] HospitalIn the event this information is protected by the Federal Confidentiality of Alcohol and Drug Abuse Patient Records regulations: The Federal rules restrict any use of the information to criminally investigate or prosecute any alcohol or drug abuse patient.[facility] HospitalIn the event this information is protected by the Federal Confidentiality of Alcohol and Drug Abuse Patient Records regulations: The Federal rules restrict any use of the information to criminally investigate or prosecute any alcohol or drug abuse patient.[facility] the event this information is protected by the Federal Confidentiality of Alcohol and Drug Abuse Patient Records regulations: The Federal rules restrict any use of the information to criminally investigate or prosecute any alcohol or drug abuse patient.[facility] HospitalIn the event this information is protected by the Federal Confidentiality of Alcohol and Drug Abuse Patient Records regulations: The Federal rules restrict any use of the information to criminally investigate or prosecute any alcohol or drug abuse patient.[facility] HospitalIn the event this information is protected by the Federal Confidentiality of Alcohol and Drug Abuse Patient Records regulations: The Federal rules restrict any use of the information to criminally investigate or prosecute any alcohol or drug abuse patient.[facility] HospitalIn the event this information is protected by the Federal Confidentiality of Alcohol and Drug Abuse Patient Records regulations: The Federal rules restrict any use of the information to criminally investigate or prosecute any alcohol or drug abuse patient.[facility] HospitalIn the event this information is protected by the Federal Confidentiality of Alcohol and Drug Abuse Patient Records regulations: The Federal rules restrict any use of the information to criminally investigate or prosecute any alcohol or drug abuse patient.[facility] HospitalIn the event this information is protected by the Federal Confidentiality of Alcohol and Drug Abuse Patient Records regulations: The Federal rules restrict any use of the information to criminally investigate or prosecute any alcohol or drug abuse patient.[facility] HospitalIn the event this information is protected by the Federal Confidentiality of Alcohol and Drug Abuse Patient Records regulations: The Federal rules restrict any use of the information to criminally investigate or prosecute any alcohol or drug abuse patient.[facility] HospitalIn the event this information is protected by the Federal Confidentiality of Alcohol and Drug Abuse Patient Records regulations: The Federal rules restrict any use of the information to criminally investigate or prosecute any alcohol or drug abuse patient.[facility] HospitalIn the event this information is protected by the Federal Confidentiality of Alcohol and Drug Abuse Patient Records regulations: The Federal rules restrict any use of the information to criminally investigate or prosecute any alcohol or drug abuse patient.[facility] HospitalIn the event this information is protected by the Federal Confidentiality of Alcohol and Drug Abuse Patient Records regulations: The Federal rules restrict any use of the information to criminally investigate or prosecute any alcohol or drug abuse patient.[facility] HospitalIn the event this information is protected by the Federal Confidentiality of Alcohol and Drug Abuse Patient Records regulations: The Federal rules restrict any use of the information to criminally investigate or prosecute any alcohol or drug abuse patient.[facility] HospitalIn the event this information is protected by the Federal Confidentiality of Alcohol and Drug Abuse Patient Records regulations: The Federal rules restrict any use of the information to criminally investigate or prosecute any alcohol or drug abuse patient.[facility] HospitalIn the event this information is protected by the Federal Confidentiality of Alcohol and Drug Abuse Patient Records regulations: The Federal rules restrict any use of the information to criminally investigate or prosecute any alcohol or drug abuse patient.[facility] HospitalIn the event this information is protected by the Federal Confidentiality of Alcohol and Drug Abuse Patient Records regulations: The Federal rules restrict any use of the information to criminally investigate or prosecute any alcohol or drug abuse patient.[facility] Reason for Visit (unrecogniz ed section [...] finger Specialty Diagnoses / Procedures Referred By Contac t Referred To Contact Orthopedics Diagnoses Trigger finger of left hand, unspecified finger Procedures CONSULT TO ORTHOPAEDICS OFFICE/OUTPATIENT [facility] 60-74 MINUTES Duncan Craven MD [address] [place] [address] Referral ID Status Reason Start Date Expiration Date Visits Requested Visits Authorized [id number] Pending Review PCP Requested Referral 03/25/2023 03/24/2024 1 1 Reason Comments Internal Referrals/resources Covid recov er clinic referral Reason Comments Patient Question Reason Comments Patient Update Reason Comments Post Op Reason Comments New Patient Evaluation H/O AR, CAD, LBB Specialty Diagnoses / Procedures Referred By Chata t Referred To Contact Cardiology Diagnoses Hx of acute myocardial infarction Procedures CONSULT TO CARDIOLOGY OFFICE/OUTPATIENT [facility] 60-74 MINUTES Duncan Craven MD [address] [place] [address] Referral ID Status Reason Start Date Expiration Date V isits Requested Visits Authorized [id number] Closed PCP Requested Referral 03/25/2023 03/24/2024 1 [...] disorder (HCC) Procedures CONSULT TO PSYCHIATRY OFFICE/OUTPATIENT [facility] 60-74 MINUTES Duncan Craven MD [address] [place] [address] Referral ID Status Reason Start Date Expiration Date Visits Requested Visits Authorized [id number] Pending Review PCP Requested Referral 3 09/09/2024 1 1 Reason Comments Radiology US Specialty Diagnoses / Procedures Referred By Chata t Referred To Contact US IMAGING Diagnoses Posterior auricular lymphadenopathy Procedures US HEAD/NECK SOFT TISSUE OTHER US SOFT TISSUE HEAD & NECK REAL TIME IMGE Duncan Cueva MD [address] [place] [address] [place] [address] Referral ID Status Reason Start Date Expiration Date V isits Requested Visits Authorized [id number] Closed Auto-Generate d Referral 10/20/2023 11/18/2024 1 1 Reason Onset Date Comments Population Health Navigation Outreach 11/12/2023 [facility] Annual Wellness Visit Reason Onset Date Comments [...] 04/26/2024 TCM follow up call 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 Reason Onset Date Comments Transition Of Care 05/03/2024 TCM follow up call Reason Onset Date Comments Transition Of Care 05/10/2024 TCM follow up call Reason Comments CHF Follow Up Reason Comments Cardiac Rehab Pt prefers [facility] Reason Onset Date Comments Transition [...] Neck Specialty Diagnoses / Procedures [facility] Referred To Contact General Surgery Diagnoses Lipoma of neck Procedures CONSULT TO GENERAL SURGERY OFFICE/OUTPATIENT [facility] MDM 60 MINUTES Duncan Craven MD [address] [place] [address] Referral ID Status Reason Start Date Expiration Date V isits Requested Visits Authorized [id number] Closed PCP Requested Referral 10/13/2024 10/13/2025 1 1 Reason Comments Referral Information Cardiology Reason Comments Radiology CT Specialty Diagnoses / Procedures [facility] Referred To Contact CT IMAGING Diagnoses Neck mass Procedures CT NECK SOFT TISSUE W IVCON CT SOFT TISSUE NECK W/CONTRAST MATERIAL Inder Bruce MD [address] [address] Phone: tel: fax: [place] [address] Referral ID Status Reason Start Date Expiration Date V isits Requested Visits Authorized [id number] Closed Auto-Generate d Referral 10/18/2024 11/17/2025 1 1 Reason Comments Establish Care Reason Onset Date Comments Results 11/02/2024 Reason Comments Established Patient Follow up Neck CT Reason Comments Neck Mass Difficulty breathing Specialty Diagnoses / Procedures Referred By [facility] Referred To Contact Ent - Otolaryngology Diagnoses Neck mass Procedures CONSULT TO ENT OFFICE/OUTPATIENT [facility] 60 MINUTES Inder Bruce MD [address] [facility] [address] [place] [address] Phone: tel: fax: Tatyana Cardoza DO [address] [place] [address] Phone: tel: fax: Referral ID Status Reason Start Date Expiration Date V isits Requested Visits Authorized [id number] Closed PCP Requested Referral 11/07/2024 11/07/2025 1 1 Reason Comments needs CORE BIOPSY Reason Onset Date Comments Population Health Navigation Outreach 11/21/2024 [employer] Attributed Member- Needs 2024 Medicare Wellness Appointment Scheduled Reason Onset Date Comments Refill Request 11/24/2024 Reason Comments Follow Up Neck mass Reason Onset Date Comments Population Health Navigation Outreach 12/21/2024 [employer] Hailey Reason Comments Appointment Set appt for 01/27 [...] type (HCC) Procedures . Luh Wells MD [address] [place] [address] Phone: tel: fax: [facility] [address] [place] [address] Phone: tel: Referral ID Status Reason Start Date Expiration Date Visits Re quested Visits Authorized [id number] 1 1 Reason Comments Hospital F/U Reason Onset Date Comments Other 01/18/2025 [facility] Reason Comments Depression Follow Up Anxiety Reason Comments Appointment Appointment/Xray Rem miguel ángel for 02/22/2025 Reason Onset Date Comments Refill Request 03/01/2025 Reason Comments Established Patient Reason Comments Orders Testosterone testing Reason Comments Orders Reason Comments New Cardiac Patient HFrEF Specialty Diagnoses / Procedures Referred By Contac t Referred To Contact Cardiology Diagnoses Chronic HFrEF (heart failure with reduced ejection fraction) (HCC) Procedures CONSULT TO CARDIOLOGY OFFICE/OUTPATIENT [facility] 60 MINUTES BisiCodieew DO 1 [facility] [address] [place] [address] Phone: tel: fax: Yousuf Ponce MD [address] [place] [address] Phone: tel: fax: Referral ID Status Reason Start Date Expiration Date V isits Requested Visits Authorized [id number] Closed PCP Requested Referral 10/18/2024 10/18/2025 1 1 Reason Comments Insurance Authorization 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 Date Comments Refill Request 04/18/2025 Reason Comments Medication Request Viagra Reason Comments Erectile Dysfunction Specialty Diagnoses / Procedures Referred By Contac t Referred To Contact Urology Diagnoses Drug-induced erectile dysfunction Procedures OFFICE/OUTPATIENT [facility] 60 MINUTES Nikolai Nazario DO 1 [place] [address] Phone: tel: fax: Referral ID Status Reason Start Date Expiration Date V isits Requested Visits Authorized [id number] Closed PCP Requested Referral 04/18/2025 04/18/2026 1 1 Care Teams (unrecognized sec tion and content) Mechanical Design Drafter Relationship Specialty Start Date End Date Duncan Craven MD [address] [place] [address] PCP - General Internal Medicine 04/09/23 Gavin Betancur DO [address] [id number] PCP Resident 04/09/23 Mechanical Design Drafter Relationship Specialty Start Date End Date Duncan Craven MD [address] [place], [place] [id number] PCP - General Internal Medicine 04/09/23 Gavin Betancur DO 1 [facility] [address] [place] [address] PCP Resident 04/09/23 Mechanical Design Drafter Relationship Specialty Start Date End Date Duncan Craven MD 1 [place], [place] [id number] PCP - General Internal Medicine 04/09/23 Gavin Betancur DO [address] [id number] PCP Resident 04/09/23 Mechanical Design Drafter Relationship Specialty Start Date End Date Duncan Craven MD 1 [place], [place] [id number] PCP - General Internal Medicine 04/09/23 Gavin Betancur DO [address] [id number] PCP Resident 04/09/23 Mechanical Design Drafter Relationship Specialty Start Date End Date Duncan Craven MD 1 [place], [place] [id number] PCP - General Internal Medicine 04/09/23 Gavin Betancur DO [address] [id number] PCP Resident 04/09/23 Mechanical Design Drafter Relationship Specialty Start Date End Date Duncan Craven MD [address] [place], [place] [id number] PCP - General Internal Medicine 04/09/23 Gavin Betancur DO [address] [place], [place] [id number] PCP Resident 04/09/23 Mechanical Design Drafter Relationship Specialty Start Date End Date Duncan Craven MD [address] [place], [place] [id number] PCP - General Internal Medicine 04/09/23 Gavin Betancur DO [address] [place], [place] [id number] PCP Resident 04/09/23 Mechanical Design Drafter Relationship Specialty Start Date End Date Duncan Craven MD 1 [place], [place] [id number] PCP - General Internal Medicine 04/09/23 Gavin Betancur DO [address] [place], [place] [id number] PCP Resident 04/09/23 Mechanical Design Drafter Relationship Specialty Start Date End Date Duncan Craven MD 1 [place], [place] [id number] PCP - General Internal Medicine 04/09/23 Gavin Betancur DO 1 [facility] [address] [place], [place] [id number] PCP Resident 04/09/23 Mechanical Design Drafter Relationship Specialty Start Date End Date Duncan Craven MD 1 [place], [place] [id number] PCP - General Internal Medicine 04/09/23 Gavin Betancur DO [address] [place], [place] [id number] PCP Resident 04/09/23 Mechanical Design Drafter Relationship Specialty Start Date End Date Duncan Craven MD 1 [place], [place] [id number] PCP - General Internal Medicine 04/09/23 Gavin Betancur DO [address] [place], [place] [id number] PCP Resident 04/09/23 Mechanical Design Drafter Relationship Specialty Start Date End Date Duncan Craven MD [address] [place], [place] [id number] PCP - General Internal Medicine 04/09/23 Gavin Betancru DO [address] [place] [address] PCP Resident 04/09/23 Mechanical Design Drafter Relationship Specialty Start Date End Date Duncan Craven MD [address] [place] [address] PCP - General Internal Medicine 04/09/23 Gavin Betancur DO [address] [place] [address] PCP Resident 04/09/23 Mechanical Design Drafter Relationship Specialty Start Date End Date Duncan Craven MD [address] [place] [address] PCP - General Internal Medicine 04/09/23 Gavin Betancur DO [address] [place], [place] [id number] PCP Resident 04/09/23 Mechanical Design Drafter Relationship Specialty Start Date End Date Duncan Craven MD 1 [place], [place] [id number] PCP - General Internal Medicine 04/09/23 Gavin Betancur DO [address] [place], [place] [id number] PCP Resident 04/09/23 Mechanical Design Drafter Relationship Specialty Start Date End Date Duncan Craven MD 1 [place], [place] [id number] PCP - General Internal Medicine 04/09/23 Gavin Betancur DO [address] [place] [address] PCP Resident 04/09/23 Mechanical Design Drafter Relationship Specialty Start Date End Date Duncan Craven MD 1 [place] [address] PCP - General Internal Medicine 04/09/23 Gavin Betancur DO [address] [place] [address] PCP Resident 04/09/23 Mechanical Design Drafter Relationship Specialty Start Date End Date Duncan Craven MD 1 [place] [address] PCP - General Internal Medicine 04/09/23 Gavin Betancur DO [address] [place] [address] PCP Resident 04/09/23 Mechanical Design Drafter Relationship Specialty Start Date End Date Duncan Craven MD 1 [place] [address] PCP - General Internal Medicine 04/09/23 Gavin Betancur DO 1 [facility] [address] [place] [address] PCP Resident 04/09/23 Mechanical Design Drafter Relationship Specialty Start Date End Date Duncan Craven MD 1 [place], [place] [id number] PCP - General Internal Medicine 04/09/23 Gavin Betancur DO 1 [facility] [address] [place] [address] PCP Resident 04/09/23 Mechanical Design Drafter Relationship Specialty Start Date End Date Duncan Craven MD 1 [place] [address] PCP - General Internal Medicine 04/09/23 Gvain Betancru DO [address] [address] PCP Resident 04/09/23 Mechanical Design Drafter Relationship Specialty Start Date End Date Duncan Craven MD 1 [place] [address] PCP - General Internal Medicine 04/09/23 Gavin Betancur DO 1 [facility] [address] [id number] PCP Resident 04/09/23 Mechanical Design Drafter Relationship Specialty Start Date End Date Duncan Craven MD 1 [place], [place] [id number] PCP - General Internal Medicine 04/09/23 Gavin Betancur DO [address] [place], [place] [id number] PCP Resident 04/09/23 Mechanical Design Drafter Relationship Specialty Start Date End Date Duncan Craven MD 1 [place], [place] [id number] PCP - General Internal Medicine 04/09/23 Gavin Betancur DO [address] [place], [place] [id number] PCP Resident 04/09/23 Mechanical Design Drafter Relationship Specialty Start Date End Date Duncan Craven MD 1 [place], [place] [id number] PCP - General Internal Medicine 04/09/23 Gavin Betancur DO [address] [place], [place] [id number] PCP Resident 04/09/23 Mechanical Design Drafter Relationship Specialty Start Date End Date Duncan Craven MD 1 [place], [place] [id number] PCP - General Internal Medicine 04/09/23 Gavin Betancur DO [address] [place], [place] [id number] PCP Resident 04/09/23 Mechanical Design Drafter Relationship Specialty Start Date End Date Duncan Craven MD 1 [place], [place] [id number] PCP - General Internal Medicine 04/09/23 Gavin Betancur DO [address] [place], [place] [id number] PCP Resident 04/09/23 Mechanical Design Drafter Relationship Specialty Start Date End Date Duncan Craven MD 1 [place], [place] [id number] PCP - General Internal Medicine 04/09/23 Gavin Betancur DO [address] [place], [place] [id number] PCP Resident 04/09/23 Mechanical Design Drafter Relationship Specialty Start Date End Date Duncan Craven MD 1 [place], [place] [id number] PCP - General Internal Medicine 04/09/23 Gavin Betancur DO [address] [place], [place] [id number] PCP Resident 04/09/23 Mechanical Design Drafter Relationship Specialty Start Date End Date Duncan Craven MD 1 [place] [address] PCP - General Internal Medicine 04/09/23 Gavin Betancur DO [address] [place] [address] PCP Resident 04/09/23 Mechanical Design Drafter Relationship Specialty Start Date End Date Duncan Craven MD 1 [place], [place] 19222307 PCP - General Internal Medicine 04/09/23 Gavin Betancur DO [address] [place], [place] [id number] PCP Resident 04/09/23 Mechanical Design Drafter Relationship Specialty Start Date End Date Duncan Craven MD 1 [place], [place] [phone] PCP - General Internal Medicine 04/09/23 Gavin Betancur DO 1 [facility] [address] [place], [place] [phone] PCP Resident 04/09/23 Homa Kemp, automobile carpets molder Commercial Credit Portfolio Manager 04/18/24 Caty Cameron [facility] Transitional Care Pharmacist Pharmacy 04/18/24 05/19/24 Mechanical Design Drafter Relationship Specialty Start Date End Date Duncan Craven MD 1 [place], [place] [phone] PCP - General Internal Medicine 04/09/23 Gavin Betancur DO 1 [facility] [address] [place], [place] [id number] PCP Resident 04/09/23 Homa Kemp, automobile carpets molder Commercial Credit Portfolio Manager 04/18/24 Caty Cameron [facility] Transitional Care Pharmacist Pharmacy 04/18/24 05/19/24 Mechanical Design Drafter Relationship Specialty Start Date End Date Duncan Craven MD 1 [place], [place] [id number] PCP - General Internal Medicine 04/09/23 Gavin Betancur DO [address] [place] [address] PCP Resident 04/09/23 Homa Kemp automobile carpets molder Commercial Credit Portfolio Manager 04/18/24 04/19/24 Caty Cameron [facility] Transitional Care Pharmacist Pharmacy 04/18/24 05/19/24 Denise Coronado, RN [address] [place], [place] [phone] Primary Care Commercial Credit Portfolio Manager 04/19/24 Mechanical Design Drafter Relationship Specialty Start Date End Date Duncan Craven MD 1 [place] [address] PCP - General Internal Medicine 04/09/23 Gavin Betancur DO [address] [place] [address] PCP Resident 04/09/23 Homa Kemp RN Primary Care Commercial Credit Portfolio Manager 04/18/24 04/19/24 Caty aCmeron [facility] Transitional Care Pharmacist Pharmacy 04/18/24 05/19/24 Denise Coronado, RN [address] [place], [place] [phone] Primary Care Commercial Credit Portfolio Manager 04/19/24 Mechanical Design Drafter Relationship Specialty Start Date End Date Duncan Craven MD 1 [place] [address] PCP - General Internal Medicine 04/09/23 Gavin Betancur DO [address] [place] [id number] PCP Resident 04/09/23 Homa Kemp RN Primary Care Commercial Credit Portfolio Manager 04/18/24 04/19/24 Caty Cameron [facility] Transitional Care Pharmacist Pharmacy 04/18/24 05/19/24 Denise Coronado, RN [address] [place], [place] [phone] Primary Care Commercial Credit Portfolio Manager 04/19/24 Mechanical Design Drafter Relationship Specialty Start Date End Date Duncan Craven MD 1 [place] [address] PCP - General Internal Medicine 04/09/23 Gavin Betancur DO [address] [place] [address] PCP Resident 04/09/[address] [facility] 04/18/24 05/19/24 Denise Coronado RN [address] [place], [place] [phone] Primary Care Commercial Credit Portfolio Manager 04/19/24 Mechanical Design Drafter Relationship Specialty Start Date End Date Duncan Craven MD 1 [place] [address] PCP - General Internal Medicine 04/09/23 Gavin Betancur DO [address] [place] [address] PCP Resident 04/09/[address] [facility] Pharmacist Pharmacy 04/18/24 05/19/24 Denise Coronado RN [address] [place], [place] [phone] Primary Care Commercial Credit Portfolio Manager 04/19/24 Mechanical Design Drafter Relationship Specialty Start Date End Date Duncan Craven MD 1 [place] [address] PCP - General Internal Medicine 04/09/23 Gavin Betancur DO [address] [address] PCP Resident 04/09/23 Caty Cameron [facility] Transitional Care Pharmacist Pharmacy 04/18/24 05/19/24 Denise Coronado, RN [address] [place], [place] [phone] Primary Care Commercial Credit Portfolio Manager 04/19/24 Mechanical Design Drafter Relationship Specialty Start Date End Date Duncan Craven MD 1 [place] [address] PCP - General Internal Medicine 04/09/23 Gavin Betancur DO [address] [address] PCP Resident 04/09/23 Caty Cameron [facility] Transitional Care Pharmacist Pharmacy 04/18/24 05/19/24 Denise Coronado, RN [address] [place], [place] [phone] Primary Care Commercial Credit Portfolio Manager 04/19/24 Mechanical Design Drafter Relationship Specialty Start Date End Date Duncan Craven MD 1 [place] [address] PCP - General Internal Medicine 04/09/23 Gavin Betancur DO [address] [address] PCP Resident 04/09/23 Caty Cameron [facility] Transitional Care Pharmacist Pharmacy 04/18/24 05/19/24 Denise Coronado, RN [address] [place], [place] [phone] Primary Care Commercial Credit Portfolio Manager 04/19/24 Mechanical Design Drafter Relationship Specialty Start Date End Date Duncan Craven MD 1 [place], [place] [id number] PCP - General Internal Medicine 04/09/23 Gavin Betancur DO 1 [facility] [address] [place] [address] PCP Resident 04/09/23 Caty Cameron [facility] Transitional Care Pharmacist Pharmacy 04/18/24 05/19/24 Denise Coronado RN [address] [place], [place] [phone] Primary Care Commercial Credit Portfolio Manager 04/19/24 Mechanical Design Drafter Relationship Specialty Start Date End Date Duncan Craven MD 1 [place] [address] PCP - General Internal Medicine 04/09/23 Gavin Betancur DO 1 [facility] [address] [place] [address] PCP Resident 04/09/[address] [facility] Transitional [facility] Pharmacist Pharmacy 04/18/24 05/19/24 Denise Coronado RN [address] [place], [place] [phone] Primary Care Commercial Credit Portfolio Manager 04/19/24 Mechanical Design Drafter Relationship Specialty Start Date End Date Duncan Craven MD 1 [place] [address] PCP - General Internal Medicine 04/09/23 Gavin Betancur DO 1 [facility] [address] [place] [address] PCP Resident 04/09/23 Caty Cameron [facility] Transitional Care Pharmacist Pharmacy 04/18/24 05/19/24 Denise Coronado RN [address] [place], [place] [phone] Primary Care Commercial Credit Portfolio Manager 04/19/24 Mechanical Design Drafter Relationship Specialty Start Date End Date Duncan Craven MD 1 [place], [place] [id number] PCP - General Internal Medicine 04/09/23 Gavin Betancur DO [address] [place], [place] [phone] PCP Resident 04/09/[address] [facility] Transitional [facility] Pharmacist Pharmacy 04/18/24 05/19/24 Mechanical Design Drafter Relationship Specialty Start Date End Date Duncan Craven MD 1 [place], [place] [phone] PCP - General Internal Medicine 04/09/23 Gavin Betancur DO [address] [place], [place] [phone] PCP Resident 04/09/23 Homa Kemp, SUZAN Primary Care Commercial Credit Portfolio Manager 04/18/24 04/19/24 [facility] Pharmacist Pharmacy 04/18/24 05/19/24 Denise Coronado RN [address] [place], [place] [phone] Primary Care Commercial Credit Portfolio Manager 04/19/24 05/15/24 Mechanical Design Drafter Relationship Specialty Start Date End Date Duncan Craven MD 1 [place], [place] [id number] PCP - General Internal Medicine 04/09/23 Gavin Betancur DO [address] [place], [place] [id number] PCP Resident 04/09/23 Denise Coronado, RN [address] [place], [place] [phone] Primary Care Commercial Credit Portfolio Manager 04/19/24 07/20/24 Mechanical Design Drafter Relationship Specialty Start Date End Date Duncan Craven MD 1 [place] [address] PCP - General Internal Medicine 04/09/23 Gavin Betancur DO [address] [place] [address] PCP Resident 04/09/23 Denise Coronado RN [address] [place], [place] [phone] Primary Care Commercial Credit Portfolio Manager 04/19/24 07/20/24 Mechanical Design Drafter Relationship Specialty Start Date End Date Duncan Craven MD 1 [place] [address] PCP - General Internal Medicine 04/09/23 Gavin Betancur DO [address] [place] [address] PCP Resident 04/09/23 Denise Coronado RN [address] [place], [place] [phone] Primary Care Commercial Credit Portfolio Manager 04/19/24 07/20/24 Mechanical Design Drafter Relationship Specialty Start Date End Date Duncan Craven MD 1 [place] [address] PCP - General Internal Medicine 04/09/23 Gavin Betancur DO [address] [place] [address] PCP Resident 04/09/23 Denise Coronado, RN [address] [place] [phone] Primary Care Commercial Credit Portfolio Manager 04/19/24 07/20/24 Mechanical Design Drafter Relationship Specialty Start Date End Date Duncan Craven MD 1 [place] [address] PCP - General Internal Medicine 04/09/23 Gavin Betancur DO [address] [place] [address] PCP Resident 04/09/23 Denise Coronado RN [address] [place], [place] [phone] Primary Care Commercial Credit Portfolio Manager 04/19/24 07/20/24 Mechanical Design Drafter Relationship Specialty Start Date End Date Duncan Craevn MD 1 [place] [address] PCP - General Internal Medicine 04/09/23 Gavin Betancur DO [address] [place] [address] PCP Resident 04/09/23 Denise Coronado, RN [address] [place] [address] Primary Care Commercial Credit Portfolio Manager 04/19/24 07/20/24 Mechanical Design Drafter Relationship Specialty Start Date End Date Duncan Craven MD 1 [place] [address] PCP - General Internal Medicine 04/09/23 Gavin Betancur DO [address] [place] [address] PCP Resident 04/09/23 Denise Coronado, RN [address] [place] [address] Primary Care Commercial Credit Portfolio Manager 04/19/24 07/20/24 Mechanical Design Drafter Relationship Specialty Start Date End Date Duncan Craven MD 1 [place] [address] PCP - General Internal Medicine 04/09/23 Gavin Betancur DO [address] [place] [address] PCP Resident 04/09/23 Denise Coronado, RN [address] [place], [place] [id number] [phone] Primary Care Commercial Credit Portfolio Manager 04/19/24 07/20/24 Mechanical Design Drafter Relationship Specialty Start Date End Date Duncan Craven MD 1 [place] [address] PCP - General Internal Medicine 04/09/23 Gavin Betancur DO [address] [place] [address] PCP Resident 04/09/23 Denise Coronado, RN [address] [place] [address] Primary Care Commercial Credit Portfolio Manager 04/19/24 07/20/24 Mechanical Design Drafter Relationship Specialty Start Date End Date Duncan Craven MD 1 [place] [address] PCP - General Internal Medicine 04/09/23 Gavin Betancur DO [address] [place] [address] PCP Resident 04/09/23 Denise Coronado, RN [address] [place] [address] Primary Care Commercial Credit Portfolio Manager 04/19/24 07/14/24 Mechanical Design Drafter Relationship Specialty Start Date End Date Duncan Craven MD 1 [place], [place] [id number] PCP - General Internal Medicine 04/09/23 Gavin Betancur DO [address] [place] [address] PCP Resident 04/09/23 Denise Coronado, RN [address] [place], [place] [phone] Primary Care Commercial Credit Portfolio Manager 04/19/24 07/14/24 Mechanical Design Drafter Relationship Specialty Start Date End Date Duncan Craven MD 1 [place] [address] PCP - General Internal Medicine 04/09/23 Gavin Betancur DO [address] [place] [address] PCP Resident 04/09/23 Mechanical Design Drafter Relationship Specialty Start Date End Date Duncan Craven MD 1 [place] [address] PCP - General Internal Medicine 04/09/23 Gavin Betancur DO [address] [place] [address] PCP Resident 04/09/23 Team Status: Active Member Role Status Dates No Primary Care Physician Family Provider Active CARLTON COLEY Primary Care Provider Active Team Status: Inactive Member Role Status Dates Bean Kwon MD Emergency Provider Active VIANCA VINCENT Primary Care Provider Active Mechanical Design Drafter Relationship Specialty Start Date End Date Duncan Craven MD 1 [place], [place] [id number] PCP - General Internal Medicine 04/09/23 Gavin Betancur DO [address] [place], [place] [phone] PCP Resident 04/09/23 Mechanical Design Drafter Relationship Specialty Start Date End Date Duncan Craven MD 1 [place], [place] [id number] PCP - General Internal Medicine 04/09/23 Gavin Betancur DO [address] [place], [place] 520[address] PCP Resident 04/09/23 Mechanical Design Drafter Relationship Specialty Start Date End Date Duncan Craven MD 1 [place], [place] 43876307 PCP - General Internal Medicine 04/09/23 Gavin Betancur DO 1 [facility] [address] [place], [place] [phone] PCP Resident 04/09/23 Mechanical Design Drafter Relationship Specialty Start Date End Date Duncan Craven MD 1 [place], [place] [id number] PCP - General Internal Medicine 04/09/23 Gavin Betancur DO 1 [facility] [address] [place], [place] 16[address] PCP Resident 04/09/23 Mechanical Design Drafter Relationship Specialty Start Date End Date Duncan Craven MD 1 [place], [place] 8835[address]7 PCP - General Internal Medicine 04/09/23 Gavin Betancur DO [address] [place], [place] [address] PCP Resident 04/09/23 Mechanical Design Drafter Relationship Specialty Start Date End Date Duncan Craven MD 1 [place], [place] [phone] PCP - General Internal Medicine 04/09/23 Gavin Betancur DO [address] [place] [address] PCP Resident 04/09/23 Mechanical Design Drafter Relationship Specialty Start Date End Date Duncan Craven MD 1 [place] [address] PCP - General Internal Medicine 04/09/23 Gavin Betancur DO [address] [place] [address] PCP Resident 04/09/23 Mechanical Design Drafter Relationship Specialty Start Date End Date Duncan Craven MD 1 [place] [address] PCP - General Internal Medicine 04/09/23 Gavin Betancur DO [address] [place] [address] PCP Resident 04/09/23 Mechanical Design Drafter Relationship Specialty Start Date End Date Duncan Craven MD 1 [place] [address] PCP - General Internal Medicine 04/09/23 Gavin Betancur DO 1 [facility] [address] [place], [place] [phone] PCP Resident 04/09/23 Mechanical Design Drafter Relationship Specialty Start Date End Date Duncan Craven MD 1 [place], [place] [id number] PCP - General Internal Medicine 04/09/23 11/01/24 Gavin [facility]ancur DO 1 [facility] [address] [place], [place] [phone] PCP Resident 04/09/23 11/01/24 Mechanical Design Drafter Relationship Specialty Start Date End Date Oscar Brizuela MD [address] [place] [address] PCP - General Family Medicine 11/02/24 Mechanical Design Drafter Relationship Specialty Start Date End Date Oscar Brizuela MD [address] [place] [address] PCP - General Family Medicine 11/02/24 Mechanical Design Drafter Relationship Specialty Start Date End Date Oscar Brizuela MD [address] [place] [address] PCP - General Family Medicine 11/02/24 Mechanical Design Drafter Relationship Specialty Start Date End Date Oscar Brizuela MD [address] [place] [address] PCP - General Family Medicine 11/02/24 Mechanical Design Drafter Relationship Specialty Start Date End Date Oscar Brizuela MD [address] [place] [address] PCP - General Family Medicine 11/02/24 Mechanical Design Drafter Relationship Specialty Start Date End Date Oscar Brizuela MD [address] [place] [address] PCP - General Family Medicine 11/02/24 Mechanical Design Drafter Relationship Specialty Start Date End Date Oscar Brizuela MD [address] [place] [address] PCP - General Family Medicine 11/02/24 Negin Sandy APRN.SENIOR JAVA J2EE DEVELOPER [address] [place] [address] Supervisor Taping Family Medicine 12/02/24 12/11/24 PodlogarJocelyn APRN.SENIOR JAVA J2EE DEVELOPER [address] [place] [address] Supervisor Taping Family Medicine 12/02/24 Mechanical Design Drafter Relationship Specialty Start Date End Date Oscar Brizuela MD [address] [place] [address] PCP - General Family Medicine 11/02/24 PodlogarJocelyn APRN.SENIOR JAVA J2EE DEVELOPER [address] [place] [address] Supervisor Taping Family Medicine 12/02/24 Negin Sandy DEVELOPMENTAL WRITING INSTRUCTOR.SENIOR JAVA J2EE DEVELOPER [address] [place] [address] Supervisor Taping Family Medicine 12/12/24 Mechanical Design Drafter Relationship Specialty Start Date End Date Oscar Brizuela MD [address] [place] [address] PCP - General Family Medicine 11/02/24 Podlogar, Jocelyn, DEVELOPMENTAL WRITING INSTRUCTOR.SENIOR JAVA J2EE DEVELOPER [address] [place], [place] [address]90[address] [facility] 12/02/24 Negin Sandy, DEVELOPMENTAL WRITING INSTRUCTOR.SENIOR JAVA J2EE DEVELOPER [address] [place], [place] 471031 [facility] 12/12/24 Mechanical Design Drafter Relationship Specialty Start Date End Date Oscar Brizuela MD [address] [place], [place] [address]4711 PCP - General Family Medicine 11/02/24 Podlogar, Jocelyn, DEVELOPMENTAL WRITING INSTRUCTOR.SENIOR JAVA J2EE DEVELOPER [address] [place] [address] [facility] 12/02/24 Negin Sandy, DEVELOPMENTAL WRITING INSTRUCTOR.SENIOR JAVA J2EE DEVELOPER [address] [place], [place] [address] [facility] 12/12/24 Team Status: Active Member Role Status [...] 23, 2024 End: December 23, 2024 Dr. aSlty Werner DO Emergency Provider Active Start: December 23, 2024 End: December 23, 2024 Team Status: Inactive Member Role Status Dates No Primary Care Physician Primary Care Provider Active Start: December 23, 2024 End: December 23, 2024 Dr. Salty Werner , DO Attending Provider Active Start: December 23, [...] January 05, 2025 End: January 06, 2025 Mechanical Design Drafter Relationship Specialty Start Date End Date Oscar Brizuela MD [address] [facility] [place] [address] PCP - General Family Medicine 11/02/24 PodlogJocelyn denise APRN.SENIOR JAVA J2EE DEVELOPER [address] [place] [address] Supervisor Taping Family Medicine 12/02/24 Negin Sandy APRN.SENIOR JAVA J2EE DEVELOPER [address] [facility] [address] Supervisor Taping Family Medicine 12/12/24 Mechanical Design Drafter Relationship Specialty Start Date End Date Oscar Brizuela MD [address] [facility] [place] [address] PCP - General Family Medicine 11/02/24 PodlogarJocelyn DEVELOPMENTAL WRITING INSTRUCTOR.SENIOR JAVA J2EE DEVELOPER [address] [facility] [place] [address] Supervisor Taping Family Medicine 12/02/24 Negin Sandy APRN.SENIOR JAVA J2EE DEVELOPER [address] [facility] [place] [address] Supervisor Taping Family Medicine 12/12/24 Mechanical Design Drafter Relationship Specialty Start Date End Date Oscar Brizuela MD [address] [place] [address] PCP - General Family Medicine 11/02/24 Podlogar, VINITA Banks.SENIOR JAVA J2EE DEVELOPER [address] [place] [address] Supervisor Taping Family Medicine 12/02/24 Negin Sandy APRN.SENIOR JAVA J2EE DEVELOPER [address] [place] [address] Supervisor Taping Family Medicine 12/12/24 Mechanical Design Drafter Relationship Specialty Start Date End Date Oscar Brizuela MD [address] [place] [address] PCP - General Family Medicine 11/02/24 Podlogar, VINITA Banks.SENIOR JAVA J2EE DEVELOPER [address] [place] [address] Supervisor Taping Family Medicine 12/02/24 Negin Sandy APRN.SENIOR JAVA J2EE DEVELOPER [address] [place] [address] Supervisor Taping Family Medicine 12/12/24 Mechanical Design Drafter Relationship Specialty Start Date End Date Oscar Brizuela MD [address] [place] [address] PCP - General Family Medicine 11/02/24 PodlogarJocelyn DEVELOPMENTAL WRITING INSTRUCTOR.SENIOR JAVA J2EE DEVELOPER [address] [place] [address] Supervisor Taping Family Medicine 12/02/24 Negin Sandy APRN.SENIOR JAVA J2EE DEVELOPER [address] [place] [address] Supervisor Taping Family Medicine 12/12/24 Mechanical Design Drafter Relationship Specialty Start Date End Date Nikolai Nazario DO [address] [id number] PCP - General Internal Medicine 01/31/25 Podlogar, Jocelyn, DEVELOPMENTAL WRITING INSTRUCTOR.SENIOR JAVA J2EE DEVELOPER [address] [place], [place] 692571 Supervisor Taping Family Medicine 12/02/24 Negin Sandy APRN.SENIOR JAVA J2EE DEVELOPER [address] [place] [address] [phone] Supervisor [facility] 12/12/24 Mechanical Design Drafter Relationship Specialty Start Date End Date Nikolai Nazario DO [address] [id number] PCP - General Internal Medicine 01/31/25 Podlogar, Jocelyn, DEVELOPMENTAL WRITING INSTRUCTOR.SENIOR JAVA J2EE DEVELOPER [address] [place], [place] 764291 Supervisor [facility] 12/02/24 Negin Sandy, DEVELOPMENTAL WRITING INSTRUCTOR.SENIOR JAVA J2EE DEVELOPER [facility] [place], [place] 618251 Supervisor Taping Family Medicine 12/12/24 Mechanical Design Drafter Relationship Specialty Start Date End Date Nikolai Nazario DO [address] [id number] PCP - General Internal Medicine 01/31/25 Podlogar, Jocelyn, DEVELOPMENTAL WRITING INSTRUCTOR.SENIOR JAVA J2EE DEVELOPER [address] [place], [place] 024391 Supervisor [facility] 12/02/24 Negin Sandy, DEVELOPMENTAL WRITING INSTRUCTOR.SENIOR JAVA J2EE DEVELOPER [address] [place] [address] [phone] [facility] 12/12/24 Mechanical Design Drafter Relationship Specialty Start Date End Date Nikolai Nazario DO [address] [id number] PCP - General Internal Medicine 01/31/25 Podlogar, Jocelyn, DEVELOPMENTAL WRITING INSTRUCTOR.SENIOR JAVA J2EE DEVELOPER [facility] [place], [place] 525331 [facility] Medicine 12/02/24 Negin Sandy APRN.SENIOR JAVA J2EE DEVELOPER [address] [place] [phone] [facility] 12/12/24 Mechanical Design Drafter Relationship Specialty Start Date End Date Nikolai Nazario DO [address] [phone] PCP - General Internal Medicine 01/31/25 Podlogar, Jocelyn, DEVELOPMENTAL WRITING INSTRUCTOR.SENIOR JAVA J2EE DEVELOPER [address] [place] [phone] [facility] Family Medicine 12/02/24 Negin Sandy DEVELOPMENTAL WRITING INSTRUCTOR.SENIOR JAVA J2EE DEVELOPER [address] [place] [address] [phone] [facility] Family Medicine 12/12/24 Mechanical Design Drafter Relationship Specialty Start Date End Date Nikolai Nazario DO [address] [phone] PCP - General Internal Medicine 01/31/25 Podlogar, Jocelyn, DEVELOPMENTAL WRITING INSTRUCTOR.SENIOR JAVA J2EE DEVELOPER [address] [place] [address] [facility] Medicine 12/02/24 Negin Sandy APRN.SENIOR JAVA J2EE DEVELOPER [facility] [place], [place] 950851 [facility] 12/12/24 Mechanical Design Drafter Relationship Specialty Start Date End Date Nikolai Nazario DO [address] [id number] PCP - General Internal Medicine 01/31/25 Podlogar, Jocelyn, DEVELOPMENTAL WRITING INSTRUCTOR.SENIOR JAVA J2EE DEVELOPER [address] [place], [place] 123201 [facility] Medicine 12/02/24 Negin Sandy, DEVELOPMENTAL WRITING INSTRUCTOR.SENIOR JAVA J2EE DEVELOPER [address] [place] [address] [phone] [facility] Medicine 12/12/24 Team Status: Inactive Member Role Status Dates No Primary Care Physician Primary Care Provider Active Start: January 05, 2025 End: January 06, 2025 Dr. Prieto Bey DO Attending Provider Active Start : January 05, 2025 End: January 06, 2025 Dr. Prieto Bey DO Emergency Provider Active Start : January 05, 2025 End: January 06, 2025 Team Status: Inactive Member Role Status Dates No Primary Care Physician Primary Care Provider Active Start: March 08, 2025 End: March 08, 2025 Dr. Maureen Gomez , Emergency Provider Active Start: March 08, 2025 End: March 08, 2025 Mechanical Design Drafter Relationship Specialty Start Date End Date Nikolai Nazario DO [address] [phone] PCP - General Internal Medicine 01/31/25 Podlogar, Jocelyn, DEVELOPMENTAL WRITING INSTRUCTOR.SENIOR JAVA J2EE DEVELOPER [address] [place], [place] 297541 Super[facility] 12/02/24 Negin Sandy APRN.SENIOR JAVA J2EE DEVELOPER [address] [place] [address] [phone] Supervisor Taping [facility] Medicine 12/12/24 Mechanical Design Drafter Relationship Specialty Start Date End Date Nikolai Nazario DO [address] [phone] PCP - General Internal Medicine 01/31/25 Podlogar, Jocelyn, DEVELOPMENTAL WRITING INSTRUCTOR.SENIOR JAVA J2EE DEVELOPER [facility] [place], [place] [id number] Supervisor [facility] Family [facility] 12/02/24 Negin Sandy, DEVELOPMENTAL WRITING INSTRUCTOR.SENIOR JAVA J2EE DEVELOPER [address] [place] [address] [phone] [facility] 12/12/24 Mechanical Design Drafter Relationship Specialty Start Date End Date Nikolai Nazario DO [address] [id number] PCP - General Internal Medicine 01/31/25 Podlogar, Jocelyn, DEVELOPMENTAL WRITING INSTRUCTOR.SENIOR JAVA J2EE DEVELOPER [address] [place], [place] [phone] Super[facility] 12/02/24 Negin Sandy, DEVELOPMENTAL WRITING INSTRUCTOR.SENIOR JAVA J2EE DEVELOPER [address] [place], [place] 247171 Supervisor [facility] 12/12/24 Mechanical Design Drafter Relationship Specialty Start Date End Date Nikolai Nazario DO [address] [phone] PCP - General Internal Medicine 01/31/25 Podlogar, VINITA Banks.SENIOR JAVA J2EE DEVELOPER [address] [place], [place] 194661 Supervisor [facility] 12/02/24 Negin Sandy APRN.SENIOR JAVA J2EE DEVELOPER [address] [place], [place] [phone] Supervisor [facility] 12/12/24 Mechanical Design Drafter Relationship Specialty Start Date End Date Nikolai Nazario DO [address] [phone] PCP - General Internal Medicine 01/31/25 Podlogar, Jocelyn, DEVELOPMENTAL WRITING INSTRUCTOR.SENIOR JAVA J2EE DEVELOPER [address] [place], [place] [phone] Supervisor [facility] 12/02/24 Negin Sanyd DEVELOPMENTAL WRITING INSTRUCTOR.SENIOR JAVA J2EE DEVELOPER [address] [place], [place] [phone] Supervisor [facility] 12/12/24 Mechanical Design Drafter Relationship Specialty Start Date End Date Nikolai Nazario DO [address] [phone] PCP - General Internal Medicine 01/31/25 Podlogar, Jocelyn DEVELOPMENTAL WRITING INSTRUCTOR.SENIOR JAVA J2EE DEVELOPER [address] [place] [address] Supervisor [facility] 12/02/24 Negin Sandy APRN.SENIOR JAVA J2EE DEVELOPER [address] [place] [address] Supervisor [facility] Family [facility] 12/12/24 Mechanical Design Drafter Relationship Specialty Start Date End Date Nikolai Nazario DO [address] [id number] PCP - General Internal Medicine 01/31/25 PodlogarJocelyn, VINITA.SENIOR JAVA J2EE DEVELOPER [address] [place], [place] [phone] Supervisor [facility] 12/02/24 Negin Sandy APRN.SENIOR JAVA J2EE DEVELOPER [address] [place] [phone] Supervisor [facility] Family [facility] 12/12/24 Mechanical Design Drafter Relationship Specialty Start Date End Date Nioklai Nazario DO [address] [id number] PCP - General Internal Medicine 01/31/25 PodlogarJocelyn, VINITA.SENIOR JAVA J2EE DEVELOPER [address] [place] [address] Supervisor T[facility] Family [facility] 12/02/24 05/28/25 Negin Sandy APRN.SENIOR JAVA J2EE DEVELOPER [facility] [place], [place] 313201 Supervisor Taping Family Medicine 12/12/24 05/28/25 (unrecognized sect ion and content) No Status Records FoundNo Status Records FoundNo Status Records FoundNo Status Records FoundNo Status Records FoundNo Status Records FoundNo Status Records Found INFORMATION SOURCE (unrecogn ized section and content) DATE CREATED AUTHOR 04/10/2024 [facility] ([place]) DATE CREATED AUTHOR AUTHOR'S ORGANIZ ATION 12/11/2024 [facility] DATE CREATED AUTHOR AUTHOR'S ORGANIZ ATION 01/25/2025 [facility] DATE CREATED AUTHOR AUTHOR'S ORGANIZ ATION 03/16/2025 [facility] DATE CREATED AUTHOR AUTHOR'S ORGANIZ ATION 04/29/2025 [facility] DATE CREATED AUTHOR AUTHOR'S ORGANIZ ATION 05/12/2025 [facility] DATE CREATED AUTHOR AUTHOR'S ORGANIZ ATION 05/28/2025 [facility] nter Goals (unrecognized section and content) Goals may be documented in a n alternate section Scheduled Active and Recently Administ ered Medications (unrecognized section and content) Medication Order 01/15/2025 01/16/2025 01/17/2025 aspirin EC tablet 81 mg 81 mg, Oral, Daily, First dose on 01/14/25 at 0800, Do not crush, chew, or split. 0826 (Given - Provider: Talita Maria RN) 08 (Given - Provider: Talita Maria RN) 0800 [...] 01/14/25 at 0900, Substituted for Loratadine (CLARITIN). 0827 (Given - Provider: Talita Maria RN) 08 (Given - Provider: Talita Maria RN) 0900 (Canceled Entry - Provider: Automatic Discharge Provider - Comment: Automatically canceled at discontinue of medication order) dapagliflozin (Farxiga) tablet 10 mg 10 mg, Oral, Daily, First dose on 01/15/25 at 0900, Indications: Heart Failure 08 (Given - Provider: Talita Maria RN) 0806 (Given - Provider: Talita Maria RN) 0900 (Canceled Entry - Provider: Automatic Discharge Provider - Comment: Automatically canceled at discontinue of medication order) enoxaparin (Lovenox) syringe 40 mg 40 mg, SubCUTAneous, Every 24 hours, First dose on Thu01/13/25 at 2355, Indication of Use: Prophylaxis-DVT/PE 0006 (Given - Provider: Yamini Masters RN)2038 (Given [...] Nightly, First dose on Thu01/13/25 at 2355 203 (Given - Provider: Yamini Masters RN) insulin glargine (Lantus) injection 22 [...] 12 Units 2036 (Given - Provider: Yamini Masters, RN) 2019 (Given - Provider: Sunita Gutierrez, SUZAN) Insulin Lispro (Humalog) injection 0-6 Units (CANCELED)(Linked Group 2) 0-6 Units, SubCUTAneous, 3 times daily with meals, First dose on 01/14/25 at 0800, Low Dose Correction Algorithm Glucose: Dose: LESS than 150 No Insulin 150-199 1 Unit 200-249 2 Units 250-299 3 Units 300-349 4 Units 350-400 5 Units Above 400 6 Units 0825 (Given - Provider: Talita Maria, SUZAN) ipratropium-albuterol (Duo-Neb) 0.5-2.5 mg/3 mL nebulizer solution 3 mL (CANCELED) 3 mL, Nebulization, 4 times daily, First dose on 01/14/25 at 0800 0725 (Given - Provider: Noel Dominguez RCP)1114 (Given - Provider: Noel Dominguez RCP) ipratropium-albuterol (Duo-Neb) 0.5-2.5 mg/3 mL nebulizer solution 3 mL 3 mL, Nebulization, 3 times daily, First dose (after last modification) on 01/15/25 at 2000 1925 (Given - Provider: Yana Arzola, INTERNAL COMBUSTION ENGINE SUBASSEMBLER) 0751 (Given - Provider: Denise Nelson)1303 (Given [...] 0532 (Given - Provider: Yamini Masters, SUZAN) 05 (Given - Provider: Sunita Gutierrez, SUZAN) metoprolol succinate XL (Toprol-XL) 24 hr tablet 25 mg (CANCELED) 25 mg, Oral, Daily, First dose on Thu01/14/25 at 0800, Do not crush or chew. 08 (Given - Provider: Talita Maria RN) 08 (Given - Provider: Talita Maria RN) metoprolol succinate XL (Toprol-XL) 24 hr tablet 50 mg 50 mg, Oral, Daily, First dose (after last modification) on Thu01/17/25 at 0800, Do not crush or chew. 08 (Canceled Entry - Provider: Automatic Discharge Provider - Comment: Automatically canceled at discontinue of medication order) mirtazapine (Remeron) tablet 15 mg 15 mg, Oral, Nightly, First dose on Thu01/13/25 at 2355 2100 (Not Given - Provider: Yamini Masters RN - Reason: Other) 2100 (Not Given - Provider: Sunita Gutierrez RN - Reason: Patient/family refused) mometasone-formoterol (Dulera 200) 200-5 MCG/ACT inhaler 2 puff 2 puff, Inhalation, 2 times daily, First dose on Thu01/14/25 at 0800, Rinse mouth with water after use to reduce aftertaste and incidence of candidiasis. Do not swallow. 08 (Given - Provider: Talita Maria RN)1999 (Given - Provider: Yamini Masters RN) 08 (Given - Provider: Talita Maria RN)2019 (Given - Provider: Sunita Gutierrez, SUZAN) 0800 (Canceled Entry - Provider: Automatic Discharge [...] (Medication Applied - Provider: Talita Maria RN) 08 (Due: Medication Removed - Provider: Talita Maria [...] RN)2019 (Given - Provider: Sunita Gutierrez RN) 0900 (Canceled Entry - Provider: Automatic Discharge Provider - Comment: Automatically canceled at discontinue of medication order) spironolactone (Aldactone) tablet 25 mg 25 mg, Oral, Daily, First dose on Thu01/14/25 at 1415 0826 (Given - Provider: Talita [...] pupils, RR < 8; notify primary team household personal assistant if used ondansetron (Zofran) injection 4 mg(Linked [...] 1648 0533 (Given - Provider: Faye Oscar, RN)1358 (Given - Provider: Talita Maria, RN) 0044 (Given - Provider: Yamini Masters, SUZAN)1550 (Given - Provider: Blade Matthews RN)2342 (Given - Provider: Sunita Gutierrez RN) polyethylene [...] times daily with meals, First dose on 01/15/25 at 1200, Medium Dose Correction Algorithm Glucose: [...] Units 250-299 3 Units 300-349 4 Units 350- 400 5 Units Above 400 6 Units Group [...] BE BASED ON THE PRIMARY CLINICAL RECORDS. [facility]. provides no warranty or guarantee of the accuracy or completeness of information in this document.
--- NOTE | 2025-06-08 19:30 | ECHOCS_ITS ---
Reason For Study : TIA/CVA Procedure This was a 2D Doppler, Color Flow transthoracic echocardiogram. The study was technically limited. The patient was scanned supine. Due to body habitus & uncooperative/angry. Contrast injection was performed. Left Ventricle Normal LV size. Mild concentric left ventricular hypertrophy. The left ventricular ejection fraction is 40 %. Stage 3 diastolic dysfunction. There is mild to moderate global hypokinesis of the left ventricle. Right Ventricle Normal RV size. Normal systolic function. Mitral Valve Mitral valve not well visualized. Tricuspid Valve The tricuspid valve is not well visualized. Aortic Valve The aortic valve is not well visualized. Great Vessels Normal aortic root. Pericardium/Pleural No pericardial effusion. Medication Diluted definity 2.0ml given slow IV push to enhance endocardial definition. MMode/2D Measurements & Calculations LVIDd: 4.2 cm IVSd: 1.3 cm LVOT diam: 2.3 cm LVIDs: 2.7 cm LVPWd: 1.3 cm LVOT area: 4.0 cm2 FS: 36.4 % Ao root diam: 4.1 cm LAV(MOD-bp): 55.6 ml LVAd ap4: 36.8 cm2 LAV(MOD-bp) Indexed: 23.7 ml/m2 LVLd ap4: 9.1 cm LAV(MOD-sp2): 64.3 ml EDV(MOD-sp4): 123.1 ml LAV(MOD-sp4): 49.1 ml EDV(sp4-el): 127.0 ml LVAs ap4: 27.2 cm2 LVLs ap4: 8.2 cm ESV(MOD-sp4): 73.7 ml ESV(sp4-el): 76.5 ml EF(MOD-sp4): 40.1 % EF(sp4-el): 39.7 % SV(MOD-sp4): 49.4 ml SV(MOD-sp2): 35.2 ml LVAd ap2: 28.7 cm2 LVLd ap2: 8.2 cm SI(MOD-sp4): 21.1 ml/m2 SI(MOD-sp2): 15.0 ml/m2 EDV(MOD-sp2): 81.1 ml EDV(sp2-el): 84.6 ml LVAs ap2: 19.4 cm2 LVLs ap2: 6.5 cm ESV(MOD-sp2): 45.9 ml ESV(sp2-el): 48.7 ml EF(MOD-sp2): 43.4 % SV(sp4-el): 50.4 ml LA A4 area: 18.9 cm2 LA dimension(2D): 3.9 cm TAPSE: 2.1 cm RA A4 area: 16.0 cm2 Time Measurements MV dec time: 0.15 sec Doppler Measurements & Calculations MV E max collin: 79.2 cm/sec Lat Peak E' Collin: 6.0 cm/sec Med Peak E' Collin: 5.9 cm/sec MV A max collin: 31.4 cm/sec E/E' lat: 13.1 E/E' med: 13.5 MV E/A: 2.5 MV V2 max: 79.8 cm/sec MV P1/2t max collin: 79.3 cm/sec Ao V2 max: 121.7 cm/sec MV max P.5 mmHg MV P1/2t: 28.7 msec Ao max P.9 mmHg MV V2 mean: 41.6 cm/sec MV dec slope: 809.8 cm/sec2 Ao V2 mean: 90.0 cm/sec MV mean P.84 mmHg Ao mean P.5 mmHg MV V2 VTI: 18.5 cm MVA(P1/2t): 7.7 cm2 Ao V2 VTI: 19.0 cm MVA(VTI): 2.7 cm2 AV (velocity ratio): 0.64 JESSICA(I,D): 2.6 cm2 JESSICA(V,D): 2.6 cm2 LV V1 max: 77.6 cm/sec SV(LVOT): 49.1 ml LV V1 max P.4 mmHg LV V1 mean P.1 mmHg LV V1 mean: 49.1 cm/sec LV V1 VTI: 12.2 cm ECHO/Echo Complete W/ Contrast Interpretation Summary Normal LV size. Mild concentric left ventricular hypertrophy. The left ventricular ejection fraction is 40 %. There is mild to moderate global hypokinesis of the left ventricle. Stage 3 diastolic dysfunction. Contrast injection was performed. Ordering Physician: Ca Newman Referring Physician: PERFECTO PCP Performed By: Melvi Marsh, IVAN, RVT
--- NOTE | 2025-06-08 19:50 | NURSING ---
pt arrives by ED transport and placed on heart monitor by nurse aid. when this rn arrives in room pt is in bed sleeping, snoring. vitals show spo2 88% on room air, 2L NC applied, spo2 increases to 95%. bp 111/64, hr 107. afebrile at 97.9f temporal. pt difficult to arouse, no arousal to voice or simple physical stimulation. sternal rub provides pt eyes opening and mumbles a few sounds then falls back to sleep. tox screen positive for fentanyl and cocaine on admission to ER. unable to complete admission questions at this time. bed alarm and camera is on. pt resting comfortably. call hernandez and phone within reach. will provide frequent rounding and continue to monitor.
--- NOTE | 2025-06-08 20:05 | CM.ED ---
Social work This SW was completing another task when this SW was approached by Stefani MARES about patient's current condition. Per Stefani MARES, patient was not making sense, continued to have an altered level of consciousness, slurred speech, etc. Patient was reported to be unsafe to discharge home by both Stefani MARES and [facility]. SW offered to come talk to patient and asked if Dr Desai had written a pink slip if patient was still too confused to care for patient's basic needs. This SW had not seen patient prior to asking this question; Dr Desai reportedly wrote pink slip in agreement with Dr Newman and Stefani MARES. Per triage notes, patient was only alert to self upon arrival and this reportedly did not get much better in the time patient was in the ED. SW was present outside patient's door when patient was told about said pink slip and SW witnessed patient having slurred speech, not making much sense, etc. While SW was completing another patient's situation, patient was taken to acute. Sarah Damon, SENIOR PROGRAM ANALYST, EMAIL DEPLOYMENT SPECIALIST
--- NOTE | 2025-06-08 22:35 | NURSING ---
pt remains sedated on geodon from ER. unable to complete NIHSS, neuro exam, or MRI for due to pt sleeping, vitals stable. 2L NC. bed alarm and camera on. call hernandez and phone within reach. tv on for pt comfort. continue to monitor and frequent rounds.
[2025-06-09 04:00] VITALS: BP 118/84; PULSE 100; RESP 20; TEMP 36.2
[2025-06-09 05:53] LABS: Hematocrit 50.2 % (40-54); Hemoglobin 17.3 g/dL (13.0-16.5); Immature Granulocytes Count 0.030 X10^3/uL (0.0-0.0); Mean Corp Hgb Conc 34.5 g/dL (32-36); Mean Corpuscular Volume 95.3 fL (80-94); Mean Platelet Vol. 10.0 fl (6.2-12.0); NRBC Flagged by Analyzer 0 % (0-5); Platelet Count 242 K/mm3 (150-450); RBC Distribution Width CV 12.0 % (11.6-14.6); RBC Distribution Width SD 41.9 fl (35.1-43.9); Red Blood Count 5.27 M/mm3 (4.6-6.2); White Blood Count 10.3 K/mm3 (4.4-11.0)
[2025-06-09 06:37] LABS: Anion Gap 13 (5-15); BUN 18 mg/dL (4-19); BUN/Creat Ratio 12.1 RATIO (10-20); Calcium,Total 9.1 mg/dL (7.6-11.0); Carbon Dioxide 26.0 mmol/L (21.0-32.0); Chloride 101 mmol/L (98-108); Cholesterol 109 mg/dL (<=200); Estimated Creatinine Clearance 64.59 ml/min (50-250); Glucose 110 mg/dL (70-99); Low Density Lipoprotein Calc. 44 mg/dL; Potassium 3.8 mmol/L (3.3-5.1); Triglycerides 132 mg/dL; Very Low Density Lipoprotein 26 mg/dL (5-40); cholesterol:hdl ratio screen 2.83
[2025-06-09 07:46] VITALS: BP 136/91; PULSE 69; RESP 18; TEMP 36.9; O2SAT 98
--- NOTE | 2025-06-09 07:48 | PN.HOSP_ITS ---
Reason for Visit Chief Complaint: Altered LOC Objective Data Objective Data Vital Signs: Vital Signs Temp Pulse Resp BP Pulse Ox O2 Del Method O2 Flow Rate 97.2 F L 100 20 H 118/84 H 95 Nasal Cannula 3 06/09/25 04:00 06/09/25 04:00 06/09/25 04:00 06/09/25 04:00 06/08/25 22:35 06/09/25 04:00 06/09/25 04:00 Oxygen Flow Rate (L/min) 3 Oxygen Delivery Method Nasal Cannula Weight: 271 lb Body Mass Index (BMI) 42.4 Intake & Output: Intake and Output for Last 24 Hours 06/07/25 06/08/25 06/09/25 23:59 23:59 23:59 Intake Total 1000 / 1000 Output Total 0 / 0 Balance 1000 / 1000 Lab / Micro Data 06/09/25 05:15 06/09/25 05:15 Labs: Laboratory Results - last 24 hr 06/08/25 14:14: WBC Cancelled, Corrected WBC Cancelled, RBC Cancelled, Hgb Cancelled, Hct Cancelled, MCV Cancelled, MCH Cancelled, MCHC Cancelled, RDW Std Deviation Cancelled, RDW Coeff of Amanda Cancelled, Plt Count Cancelled, MPV Cancelled, Immature Gran % (Auto) Cancelled, Neut % (Auto) Cancelled, Lymph % (Auto) Cancelled, [place] % (Auto) Cancelled, Eos % (Auto) Cancelled, Baso % (Auto) Cancelled, Absolute Neuts (auto) Cancelled, Absolute Lymphs (auto) Cancelled, Total Counted Cancelled, Neutrophils % (Manual) Cancelled, Band Neutrophils % Cancelled, Lymphocytes % (Manual) Cancelled, Monocytes % (Manual) Cancelled, Eosinophils % (Manual) Cancelled, Basophils % (Manual) Cancelled, Metamyelocytes % Cancelled, Myelocytes % Cancelled, Promyelocytes % Cancelled, Blast Cells % Cancelled, Plasma Cell % (Manual) Cancelled, Other Cells % Cancelled, Nucleated RBC % Cancelled, Nucleated RBCs/100 WBC Cancelled, Differential Comment Cancelled, Diff Path Review Cancelled, Hypersegmented Neuts Cancelled, Atypical Lymphocytes Cancelled, Reactive Lymphocytes Cancelled, Smudge Cells Cancelled, Toxic Granulation Cancelled, Toxic Vacuolation Cancelled, Dohle Bodies Cancelled, Naresh Rods Cancelled, Platelet Estimate Cancelled, Plt Morphology Comment Cancelled, RBC Morphology Cancelled 06/08/25 14:14: RBC Morphology Cancelled, Polychromasia Cancelled, Hypochromasia Cancelled, Basophilic Stippling Cancelled, Anisocytosis Cancelled, Microcytosis Cancelled, Macrocytosis Cancelled, Spherocytes Cancelled, Sickle Cells Cancelled, Target Cells Cancelled, Tear Drop Cells Cancelled, Ovalocytes Cancelled, Stomatocytes Cancelled, [place] Bodies Cancelled, Jyoti Cells Cancelled, Bite Cells Cancelled, Crenated Cell Cancelled, Acanthocytes (Spur) Cancelled, Rouleaux Cancelled, Schistocytes Cancelled, Sodium 138, Potassium 3.5, Chloride 99, Carbon Dioxide 20.7 L, Anion Gap 19 H, BUN 18, Creatinine 1.28 H, Estim Creat Clear Calc 77.20, Est GFR (MDRD) Non-Af 63, BUN/Creatinine Ratio 14.3, Glucose 107 H, Lactic Acid 1.4, Calcium 9.6, Total Bilirubin 0.85, AST 36, ALT 24, Alkaline Phosphatase 50, Troponin T High Sens 19, Total Protein 7.3, Albumin 4.2, Globulin 3.1, Albumin/Globulin Ratio 1.3, Ethyl Alcohol < 10.1 06/08/25 14:36: Urine Color Yellow, Urine Clarity Clear, Urine pH 5.0, Ur Specific [place] 1.025, Urine Protein 500 H, Urine Glucose (UA) Normal, Urine Ketones 50 H, Urine Occult Blood 25 H, Urine Nitrite Negative, Urine Bilirubin 1 H, Urine Urobilinogen 1 H, Ur Leukocyte Esterase Negative, Urine RBC 0 SEEN, Urine WBC 0 SEEN, Ur Squamous Epith Cells 0 SEEN, Urine Bacteria 0 SEEN, Urine Mucus 0 SEEN, Urine Opiates Screen NEGATIVE, U Buprenorphine Qual NEGATIVE, Ur Oxycodone Screen NEGATIVE, Urine Methadone Screen NEGATIVE, Urine Fentanyl Screen PRESUMPTIVE POSITIVE, Ur Barbiturates Screen NEGATIVE, Ur Phencyclidine Scrn NEGATIVE, Ur Amphetamines Screen NEGATIVE, U Benzodiazepines Scrn NEGATIVE, Urine Cocaine Screen PRESUMPTIVE POSITIVE, U Cannabinoids Screen NEGATIVE 06/08/25 15:10: WBC 10.8, RBC 5.19, Hgb 17.0 H, Hct 48.2, MCV 92.9, MCH 32.8 H, MCHC 35.3, RDW Std Deviation 41.3, RDW Coeff of Amanda 11.9, Plt Count 256, MPV 10.2, Immature Gran % (Auto) 0.400, Neut % (Auto) 59.3, Lymph % (Auto) 25.1, M fawn % (Auto) 10.4 H, Eos % (Auto) 4.7, Baso % (Auto) 0.1, Absolute Neuts (auto) 6.4, Absolute Lymphs (auto) 2.70, Nucleated RBC % 0 06/09/25 05:15: WBC 10.3, RBC 5.27, Hgb 17.3 H, Hct 50.2, MCV 95.3 H, MCH 32.8 H , MCHC 34.5, RDW Std Deviation 41.9, RDW Coeff of Amanda 12.0, Plt Count 242, MPV 10.0, Immature Gran % (Auto) 0.300, Neut % (Auto) 50.3, Lymph % (Auto) 29.8, M fawn % (Auto) 10.6 H, Eos % (Auto) 8.7 H, Baso % (Auto) 0.3, Absolute Neuts (auto) 5.2, Absolute Lymphs (auto) 3.05, Nucleated RBC % 0, Sodium 140, Potassium 3.8, Chloride 101, Carbon Dioxide 26.0, Anion Gap 13, BUN 18, C reatinine 1.49 H, Estim Creat Clear Calc 64.59, Est GFR (MDRD) Non-Af 53 L, BUN/Creatinine Ratio 12.1, Glucose 110 H, Hemoglobin A1c 6.1 H, Calcium 9.1, Triglycerides 132, Cholesterol 109, LDL Cholesterol, Calc 44, VLDL Cholesterol 26, HDL Cholesterol 39 L, Cholesterol/HDL Ratio 2.83, TSH 0.942 Radiography Diagnostic Testing: Radiology Impression Brain CT 06/08/25 15:30 IMPRESSION: No acute intracranial abnormality. Reading Location: [facility] [place] Head/Neck CTA 06/08/25 15:30 IMPRESSION: 1. No hemodynamically significant stenosis within the head or neck. No evidence of intracranial aneurysm. 2. Enlarged left thyroid lobe with multiple calcifications. Reading Location: [facility] [place] Chest X-Ray 06/08/25 15:40 IMPRESSION: Bibasilar atelectasis. No other acute cardiopulmonary abnormality. Reading Location: [facility] Rhythm Strip Rhythm Strip: Sinus Rhythm Rate: 100 Ectopy: PAC(s) Assessment & Plan Assessment/Plan (1) Slurred speech: PLAN: Plan 60-year-old gentleman was found in a car by a bystander with altered mental status, disoriented and somnolence. Blood sugar was 121. As per nursing staff in ED, he told nurses that he was doing cocaine in the car. In ED, BP was elevated, 152/100, heart rate 106, tachypneic pulse ox 97% on room air. # Slurred speech and some possibly expressive aphasia -Admit to tele -Unclear if patient's symptoms could be due to CVA or due to polysubstance use, cannot rule out the former and ED physician concerned for CVA so hospitalist contacted for CVA rule out -CT head w/ no acute process -CTA head and neck no acute process -MRI ordered -NIH q4hr -asa, statin -Echo -PT/OT/Speech eval -Teleneuro consult placed -Hold BP medications to allow for permissive hypertension for 24 hours unless SBP greater than 220 or DBP greater than 120 or until stroke is ruled out -Will check TSH #ELBERT - Unclear if patient uses BiPAP nightly, unable to answer question at this time -Head of bed elevated to least 30 degrees -Likely will need BiPAP overnight as patient received sedating medications in the ED due to his agitation to avoid hypercapnia -Will place order # Polysubstance abuse and agitation -Patient positive for fentanyl and cocaine, did endorse using cocaine to staff in the ED -After hospitalist called to admit for stroke rule out patient became agitated assisting on leaving, ED physician ace martinezped patient -Patient to be admitted for stroke rule out with crisis evaluation once deemed medically able to do so #Hypothyroidism -Continue Synthroid #Hypertension - Medications for hypertension as per stroke protocol #Type 2 diabetes mellitus -Glucose checks and sliding scale insulin -Does not appear to be on any home hypoglycemics however patient unable to give any updated medications so unclear -Will continue glucose checks and sliding scale insulin based on patient's documented history and order an A1c #Morbid obesity -BMI documented as 44.5 kg/m? at time of admission -Complicates treatment, prognosis, outcomes -Recommend weight loss and lifestyle changes #DVT ppx: Lovenox SQ twice daily Ca Newman MD Time spent in the patient's overall evaluation, decision-making process, review of diagnostic data, adjustment of management, discussion with other providers, nursing and ancillary staff involved in patient's care documentation, 82 Minutes NIHSS NIHSS Nursing Documentation NIHSS Nursing Documentation: NIHSS: Ischemic Stroke/TIA Start: 06/08/25 19:30 Text: For PCU Patients: NIH and Neuro Check every 4 Status: Active hours, PRN and with change in RN caregiver. Freq: [id number] Protocol: Activity Type Activity Date Activity User E-sign Co-sign Detail Recorded Client Recorded Date Recorded By Document 06/09/25 04:00 ROB [id number] 06/09/25 04:06 ROB 06/09/25 04:00 NIH Stroke Scale [NIHSS] A score of 0 is normal or asymptomatic . Total possible score is 42. Inpatient: RN or Physician to activate a stroke alert for onset of new stroke symptoms or with NIHSS increase >/= 3 points. Following change in neurological status, NIHSS will be performed per physician order or more frequently PRN. -1a. Level of Consciousness 2 - Not alert: Repeated strong /painful stimuli to arouse or obtunded; -1b. LOC Questions 2 - Answers NEITHER question correctly -1c. LOC Commands 2 - Performs NEITHER task correctly -2. Best Gaze 0 - Normal -3. Visual 0 - No visual loss -4. Facial Palsy 0 - Normal symmetrical movements -5a. Left Arm 0 - No drift; arm holds 90 ( or 45) degrees for full 10 seconds -5b. Right Arm 0 - No drift; arm holds 90 ( or 45) degrees for full 10 seconds -6a. Left Leg 0 - No drift; leg holds 30- degree position for full 5 seconds -6b. Right Leg 0 - No drift; leg holds 30- degree position for full 5 seconds -7. Limb Ataxia 0 - Absent -8. Sensory 0 - Normal; no sensory loss -9. Best Language 2 - Severe aphasia; -10. Dysarthria UN - Intubated or other physical barrier, explain: -'UN' explanation pt unable to answer questions at this time -11. Extinction and Inattention 0 - No abnormality -Total 8 Query Text:A score of 0 is normal or asymptomatic. Total possible score is 42 . ED: Notify Physician for NIHSS increase by > / = 3 points. Inpatient: RN or Physician to activate a stroke alert for NIHSS increase of > / = 3 points. Coma Scale [Assess] -Eye Opening To Pain -Motor Localizes to Pain -Verbal Incomprehensibl e [Total] -Coma Scale Total 9
[2025-06-09 07:50] VITALS: O2SAT 85
--- NOTE | 2025-06-09 09:31 | NURSING ---
did call friend listed and confirmed mri questions
--- NOTE | 2025-06-09 10:03 | RAD_ITS ---
PROCEDURE: ABDOMEN SINGLE VIEW 06/09/2025 REASON FOR EXAM: MRI CLEARANCE TECHNIQUE: Procedure Code: RADABD Modality: DX Procedure: ABDOMEN SINGLE VIEW COMPARISON: None FINDINGS: Bowel gas: Bowel-gas pattern is normal. Calcifications: None Bones: There are degenerative changes of the spine. Other: IV contrast material from recent CT angiogram has cleared into the mildly distended urinary bladder. No organomegaly is seen. RAD/Abdomen Single View IMPRESSION: 1. No acute abdominopelvic process. 2. No radiopaque foreign body seen. Reading Location: [place] [id number]
--- NOTE | 2025-06-09 11:47 | DCINST_ITS ---
Discharge Instructions DC O2, CPAP, BIPAP needs Home O2 Discharge instructions: No Dressing / Incision Discharge Activity: Return to Normal Activity Weight Bearing Status: Weight bearing as tolerated Dressing / Incision Call your doctor if you observe: Fever of 101 or Higher, Coldness, Increased Pain, Numbness or Tingling, Change in Color, Inability to urinate, Inability to have a bowel movement, Shortness of breath, Dizziness, Fainting spells, Swelling in the ankles, Chest pain, Prolonged hiccupping, Increased palpitations (irregular heartbeat) and Calf discomfort Follow Up Care When: IN 2 WEEKS Test Results: Test results from this visit will be discussed in further detail at your follow- up appointment, if applicable. Discharge Plan Admission Admit Date/Time: 06/08/25 18:58 Attending Provider: Byron Frye Primary Care Provider: Care Physician,Patricia Primary Consulting Providers: Chase Vyas; Tess Ramirez; Miriam Valdes; Libby Ramires; Adeola Cohn; Umesh Azar; Candace Alvarado; Umair Rico; Avinash Rivas; Martin Carolina; Colleen Coley; Rebecca Sullivan; Srinivas Fiore; Nery Kowalski; Manish Perdomo; Raina Hernandez; Jean Do; Rochelle Olivarez; Terry Muñiz; Karen Causey; Dina Gonsalez; Ca Newman Discharge Orders/Prescriptions Prescriptions: No Action aspirin 325 MG tablet 325 mg PO DAILY@0800 levothyroxine 125 MCG tablet 125 mcg PO DAILY metoprolol tartrate 50 MG tablet 50 mg PO DAILY doxycycline hyclate 100 MG capsule 100 mg PO BID Qty: 28 0RF furosemide [Lasix] 20 mg tablet 20 mg PO DAILY 30 Days Qty: 30 0RF albuterol sulfate [Ventolin HFA] 90 mcg/actuation HFA aerosol inhaler 2 puff inhalation Q4H PRN PRN (Reason: Wheezing) Qty: 1 0RF diphenhydramine HCl [Benadryl Allergy] 25 mg tablet 25 mg PO TID PRN (Reason: itching) Qty: 30 0RF loratadine 10 mg tablet 10 mg PO DAILY Qty: 30 0RF furosemide 40 mg tablet 40 mg PO DAILY metoprolol succinate 25 mg tablet extended release 24 hr 25 mg PO DAILY Patient Comments: [NO ORIGINAL SIG] dapagliflozin propanediol [Farxiga] 10 mg tablet 10 mg PO DAILY Trulicity 4.5 mg/0.5 mL pen injector 4.5 mg subcut QWEEK spironolactone 25 mg tablet 25 mg PO DAILY trazodone 100 mg tablet 100 mg PO QHS metformin 1,000 mg tablet 1,000 mg PO BID mirtazapine 15 mg tablet 22.5 mg PO QHS ezetimibe 10 mg tablet 10 mg PO DAILY insulin glargine [Lantus Solostar U-100 Insulin] 100 unit/mL (3 mL) insulin pen 20 unit subcut QHS Referrals / Follow Up: Care Physician,No Primary [Primary Care Provider, Medical] - Within 2 Weeks Disposition Disposition (needs filled in before D/C Order can be placed): Home, Self Care
[2025-06-09 13:02] VITALS: BP 117/81; PULSE 92; RESP 18; TEMP 36.7; O2SAT 92
[2025-06-09 13:39] VITALS: PULSE 92
[2025-06-09] MEDS: Metoprolol(XL)Succ 25 MG Tablet PO (13:39)
--- NOTE | 2025-06-09 14:12 | CASEMGMT ---
Social Work Per imaging pt negative for stroke, therefore PHQ9 not completed. BRIAN Last
--- NOTE | 2025-06-09 14:13 | CASEMGMT ---
Social Work SW spoke with the patient. Patient reported he lives at home alone and he still drives. He reported he is retired. He reported he takes medication for depression and anxiety. He reported he does not use drugs and there are no concerns with drug use. He is not interested in information on POA/LW. He reported he has no family in the area. He reported he has friends. BRIAN Last
--- NOTE | 2025-06-09 14:40 | CASEMGMT ---
Social Work SW spoke with physician. Per physician, pt's cognition has cleared and pt does not have suicidal ideation or risk. Pt is safe for discharge home. Physician updated [facility] indicating psychiatric placement is not needed. SERAFIN Byrd
--- NOTE | 2025-06-09 14:49 | DS.PCM_ITS ---
Providers Date of Admission: 06/08/25 Primary Care Physician: Patricia Primary Care Phys Consultations 06/08/25 19:30 Consult: Tele-Neurology Routine Consulting Provider: [facility] Reason for Consult: Acute Ischemic Stroke/TIA EMERGENT Consult: No MD Notified: Yes Date Notified: 06/09/25 Time Notified: 01:08 Method of Notification: Answering Service Nursing Unit Staff Notify [facility] of Tele-Neurology Consult: Yes Reason For Visit: CVA RULE OUT Diagnosis Discharge Diagnosis (1) Slurred speech: Status: Acute Code(s): R47.81 - Slurred speech Plan 60-year-old gentleman was found in a car by a bystander with altered mental status, disoriented and somnolence. Blood sugar was 121. As per nursing staff in ED, he told nurses that he was doing cocaine in the car. In ED, BP was elevated, 152/100, heart rate 106, tachypneic pulse ox 97% on room air. # Slurred speech and some possibly expressive aphasia -Admit to tele -Unclear if patient's symptoms could be due to CVA or due to polysubstance use, cannot rule out the former and ED physician concerned for CVA so hospitalist contacted for CVA rule out -CT head w/ no acute process -CTA head and neck no acute process -MRI ordered -NIH q4hr -asa, statin -Echo -PT/OT/Speech eval -Teleneuro consult placed -Hold BP medications to allow for permissive hypertension for 24 hours unless SBP greater than 220 or DBP greater than 120 or until stroke is ruled out -Will check TSH #ELBERT - Unclear if patient uses BiPAP nightly, unable to answer question at this time -Head of bed elevated to least 30 degrees -Likely will need BiPAP overnight as patient received sedating medications in the ED due to his agitation to avoid hypercapnia -Will place order # Polysubstance abuse and agitation -Patient positive for fentanyl and cocaine, did endorse using cocaine to staff in the ED -After hospitalist called to admit for stroke rule out patient became agitated assisting on leaving, ED physician ace slipped patient -Patient to be admitted for stroke rule out with crisis evaluation once deemed medically able to do so #Hypothyroidism -Continue Synthroid #Hypertension - Medications for hypertension as per stroke protocol #Type 2 diabetes mellitus -Glucose checks and sliding scale insulin -Does not appear to be on any home hypoglycemics however patient unable to give any updated medications so unclear -Will continue glucose checks and sliding scale insulin based on patient's documented history and order an A1c #Morbid obesity -BMI documented as 44.5 kg/m? at time of admission -Complicates treatment, prognosis, outcomes -Recommend weight loss and lifestyle changes #DVT ppx: Lovenox SQ twice daily Ca Newman MD Time spent in the patient's overall evaluation, decision-making process, review of diagnostic data, adjustment of management, discussion with other providers, nursing and ancillary staff involved in patient's care documentation, 82 Minutes Medications at Discharge Home Medications aspirin 325 mg tablet 325 mg PO DAILY@0800 10/15/14 levothyroxine 125 mcg tablet 125 mcg PO DAILY 10/15/14 metoprolol tartrate 50 mg tablet 50 mg PO DAILY 10/15/14 doxycycline hyclate 100 mg capsule 100 mg PO BID ##28 01/12/17 albuterol sulfate 90 mcg/actuation aerosol inhaler (Ventolin HFA) 2 puff inhalation Q4H PRN PRN Wheezing ##1 08/31/24 furosemide 20 mg tablet (Lasix) 20 mg PO DAILY diuretic 30 days #30 tabs 12/23/24 diphenhydramine HCl 25 mg tablet (Benadryl Allergy) 25 mg PO TID PRN itching #30 tabs 01/06/25 loratadine 10 mg tablet 10 mg PO DAILY #30 tabs 01/06/25 dapagliflozin propanediol 10 mg tablet (Farxiga) 10 mg PO DAILY 06/09/25 dulaglutide 4.5 mg/0.5 mL subcutaneous pen injector (Trulicity) 4.5 mg subcut QWEEK 06/09/25 ezetimibe 10 mg tablet 10 mg PO DAILY 06/09/25 furosemide 40 mg tablet 40 mg PO DAILY 06/09/25 insulin glargine 100 unit/mL (3 mL) subcutaneous pen (Lantus Solostar U-100 Insulin) 20 unit subcut QHS 06/09/25 metformin 1,000 mg tablet 1,000 mg PO BID 06/09/25 metoprolol succinate 25 mg tablet,extended release 24 hr 25 mg PO DAILY heart 06/09/25 mirtazapine 15 mg tablet 22.5 mg PO QHS 06/09/25 spironolactone 25 mg tablet 25 mg PO DAILY 06/09/25 trazodone 100 mg tablet 100 mg PO QHS 06/09/25 Weight / BMI Weight Weight: 271 lb 0.016 oz Body Mass Index (BMI) 42.4 ABG / Lab / Microbiology Data 06/09/25 05:15 06/09/25 05:15 Laboratory: Laboratory Results - last 24 hr 06/08/25 14:14: WBC Cancelled, Corrected WBC Cancelled, RBC Cancelled, Hgb Cancelled, Hct Cancelled, MCV Cancelled, MCH Cancelled, MCHC Cancelled, RDW Std Deviation Cancelled, RDW Coeff of Amanda Cancelled, Plt Count Cancelled, MPV Cancelled, Immature Gran % (Auto) Cancelled, Neut % (Auto) Cancelled, Lymph % (Auto) Cancelled, [place] % (Auto) Cancelled, Eos % (Auto) Cancelled, Baso % (Auto) Cancelled, Absolute Neuts (auto) Cancelled, Absolute Lymphs (auto) Cancelled, Total Counted Cancelled, Neutrophils % (Manual) Cancelled, Band Neutrophils % Cancelled, Lymphocytes % (Manual) Cancelled, Monocytes % (Manual) Cancelled, Eosinophils % (Manual) Cancelled, Basophils % (Manual) Cancelled, Metamyelocytes % Cancelled, Myelocytes % Cancelled, Promyelocytes % Cancelled, Blast Cells % Cancelled, Plasma Cell % (Manual) Cancelled, Other Cells % Cancelled, Nucleated RBC % Cancelled, Nucleated RBCs/100 WBC Cancelled, Differential Comment Cancelled, Diff Path Review Cancelled, Hypersegmented Neuts Cancelled, Atypical Lymphocytes Cancelled, Reactive Lymphocytes Cancelled, Smudge Cells Cancelled, Toxic Granulation Cancelled, Toxic Vacuolation Cancelled, Dohle Bodies Cancelled, Naresh Rods Cancelled, Platelet Estimate Cancelled, Plt Morphology Comment Cancelled, RBC Morphology Cancelled 06/08/25 14:14: RBC Morphology Cancelled, Polychromasia Cancelled, Hypochromasia Cancelled, Basophilic Stippling Cancelled, Anisocytosis Cancelled, Microcytosis Cancelled, Macrocytosis Cancelled, Spherocytes Cancelled, Sickle Cells Cancelled, Target Cells Cancelled, Tear Drop Cells Cancelled, Ovalocytes Cancelled, Stomatocytes Cancelled, [place] Bodies Cancelled, [place] Cells Cancelled, Bite Cells Cancelled, Crenated Cell Cancelled, Acanthocytes (Spur) Cancelled, Rouleaux Cancelled, Schistocytes Cancelled, Sodium 138, Potassium 3.5, Chloride 99, Carbon Dioxide 20.7 L, Anion Gap 19 H, BUN 18, Creatinine 1.28 H, Estim Creat Clear Calc 77.20, Est GFR (MDRD) Non-Af 63, BUN/Creatinine Ratio 14.3, Glucose 107 H, Lactic Acid 1.4, Calcium 9.6, Total Bilirubin 0.85, AST 36, ALT 24, Alkaline Phosphatase 50, Troponin T High Sens 19, Total Protein 7.3, Albumin 4.2, Globulin 3.1, Albumin/Globulin Ratio 1.3, Ethyl Alcohol < 10.1 06/08/25 14:36: Urine Color Yellow, Urine Clarity Clear, Urine pH 5.0, Ur Specific Bryan 1.025, Urine Protein 500 H, Urine Glucose (UA) Normal, Urine Ketones 50 H, Urine Occult Blood 25 H, Urine Nitrite Negative, Urine Bilirubin 1 H, Urine Urobilinogen 1 H, Ur Leukocyte Esterase Negative, Urine RBC 0 SEEN, Urine WBC 0 SEEN, Ur Squamous Epith Cells 0 SEEN, Urine Bacteria 0 SEEN, Urine Mucus 0 SEEN, Urine Opiates Screen NEGATIVE, U Buprenorphine Qual NEGATIVE, Ur Oxycodone Screen NEGATIVE, Urine Methadone Screen NEGATIVE, Urine Fentanyl Screen PRESUMPTIVE POSITIVE, Ur Barbiturates Screen NEGATIVE, Ur Phencyclidine Scrn NEGATIVE, Ur Amphetamines Screen NEGATIVE, U Benzodiazepines Scrn NEGATIVE, Urine Cocaine Screen PRESUMPTIVE POSITIVE, U Cannabinoids Screen NEGATIVE 06/08/25 15:10: WBC 10.8, RBC 5.19, Hgb 17.0 H, Hct 48.2, MCV 92.9, MCH 32.8 H, MCHC 35.3, RDW Std Deviation 41.3, RDW Coeff of Amanda 11.9, Plt Count 256, MPV 10.2, Immature Gran % (Auto) 0.400, Neut % (Auto) 59.3, Lymph % (Auto) 25.1, M fawn % (Auto) 10.4 H, Eos % (Auto) 4.7, Baso % (Auto) 0.1, Absolute Neuts (auto) 6.4, Absolute Lymphs (auto) 2.70, Nucleated RBC % 0 06/09/25 05:15: WBC 10.3, RBC 5.27, Hgb 17.3 H, Hct 50.2, MCV 95.3 H, MCH 32.8 H , MCHC 34.5, RDW Std Deviation 41.9, RDW Coeff of Amanda 12.0, Plt Count 242, MPV 10.0, Immature Gran % (Auto) 0.300, Neut % (Auto) 50.3, Lymph % (Auto) 29.8, M fawn % (Auto) 10.6 H, Eos % (Auto) 8.7 H, Baso % (Auto) 0.3, Absolute Neuts (auto) 5.2, Absolute Lymphs (auto) 3.05, Nucleated RBC % 0, Sodium 140, Potassium 3.8, Chloride 101, Carbon Dioxide 26.0, Anion Gap 13, BUN 18, C reatinine 1.49 H, Estim Creat Clear Calc 64.59, Est GFR (MDRD) Non-Af 53 L, BUN/Creatinine Ratio 12.1, Glucose 110 H, Hemoglobin A1c 6.1 H, Calcium 9.1, Triglycerides 132, Cholesterol 109, LDL Cholesterol, Calc 44, VLDL Cholesterol 26, HDL Cholesterol 39 L, Cholesterol/HDL Ratio 2.83, TSH 0.942 06/09/25 13:41: POC Glucose 119 H Radiography Diagnostic Testing: Radiology Impression Brain CT 06/08/25 15:30 IMPRESSION: No acute intracranial abnormality. Reading Location: [facility] Head/Neck CTA 06/08/25 15:30 IMPRESSION: 1. No hemodynamically significant stenosis within the head or neck. No evidence of intracranial aneurysm. 2. Enlarged left thyroid lobe with multiple calcifications. Reading Location: [facility] Chest X-Ray 06/08/25 15:40 IMPRESSION: Bibasilar atelectasis. No other acute cardiopulmonary abnormality. Reading Location: [facility] Echocardiogram 06/08/25 19:30 Interpretation Summary Normal LV size. Mild concentric left ventricular hypertrophy. The left ventricular ejection fraction is 40 %. There is mild to moderate global hypokinesis of the left ventricle. Stage 3 diastolic dysfunction. Contrast injection was performed. Ordering Physician: Ca Newman Referring Physician: PATRICIA PCP Performed By: Melvi Marsh, IVAN, RVT X-Ray 06/09/25 10:03 IMPRESSION: 1. No acute abdominopelvic process. 2. No radiopaque foreign body seen. Reading Location: [facility] Brain MRI 06/09/25 19:30 IMPRESSION: No acute brain abnormalities. Reading Location: [facility] D/C Instructions Weight Bearing Status: Weight bearing as tolerated Call your doctor if you observe: Fever of 101 or Higher, Coldness, Increased Pain, Numbness or Tingling, Change in Color, Inability to urinate, Inability to have a bowel movement, Shortness of breath, Dizziness, Fainting spells, Swelling in the ankles, Chest pain, Prolonged hiccupping, Increased palpitations (irregular heartbeat) and Calf discomfort DC O2, CPAP, BIPAP Needs Home O2 Discharge instructions: No When: IN 2 WEEKS Discharge Plan Admission Admit Date/Time: 06/08/25 18:58 Attending Provider: Byron Frye Primary Care Provider: Care Physician,No Primary Consulting Providers: Chase Vyas; Tess Ramirez; Miriam Valdes; Libby Ramires; Adeola Cohn; Umesh Azar; Candace Alvarado; Umair Rico; Avinash Rivas; Martin Carolina; Colleen Coley; Rebecca Sullivan; Srinivas Fiore; Nery Kowalski; Manish Perdomo; Raina Hernandez Eleno; Jean Do; Rochelle Olivarez; Terry Muñiz; Karen Causey; Dina Gonsalez; Ca Newman Discharge Orders/Prescriptions Prescriptions: No Action aspirin 325 MG tablet 325 mg PO DAILY@0800 levothyroxine 125 MCG tablet 125 mcg PO DAILY metoprolol tartrate 50 MG tablet 50 mg PO DAILY doxycycline hyclate 100 MG capsule 100 mg PO BID Qty: 28 0RF furosemide [Lasix] 20 mg tablet 20 mg PO DAILY 30 Days Qty: 30 0RF albuterol sulfate [Ventolin HFA] 90 mcg/actuation HFA aerosol inhaler 2 puff inhalation Q4H PRN PRN (Reason: Wheezing) Qty: 1 0RF diphenhydramine HCl [Benadryl Allergy] 25 mg tablet 25 mg PO TID PRN (Reason: itching) Qty: 30 0RF loratadine 10 mg tablet 10 mg PO DAILY Qty: 30 0RF furosemide 40 mg tablet 40 mg PO DAILY metoprolol succinate 25 mg tablet extended release 24 hr 25 mg PO DAILY Patient Comments: [NO ORIGINAL SIG] dapagliflozin propanediol [Farxiga] 10 mg tablet 10 mg PO DAILY Trulicity 4.5 mg/0.5 mL pen injector 4.5 mg subcut QWEEK spironolactone 25 mg tablet 25 mg PO DAILY trazodone 100 mg tablet 100 mg PO QHS metformin 1,000 mg tablet 1,000 mg PO BID mirtazapine 15 mg tablet 22.5 mg PO QHS ezetimibe 10 mg tablet 10 mg PO DAILY insulin glargine [Lantus Solostar U-100 Insulin] 100 unit/mL (3 mL) insulin pen 20 unit subcut QHS Referrals / Follow Up: Care Physician,No Primary [Primary Care Provider, Medical] - Within 2 Weeks Disposition Disposition (needs filled in before D/C Order can be placed): Home, Self Care
--- NOTE | 2025-06-09 14:49 | PCM.DC.SUM ---
Providers Date of Admission: 06/08/25 Date of Discharge: 06/09/25 Primary Care Physician: Patricia Primary Care Phys Consultations 06/08/25 19:30 Consult: Tele-Neurology Routine Consulting Provider: [facility] Reason for Consult: Acute Ischemic Stroke/TIA EMERGENT Consult: No Notified: Yes Date Notified: 06/09/25 Time Notified: 01:08 Method of Notification: Answering Service Nursing Unit Staff Notify [facility] of Tele-Neurology Consult: Yes Reason For Visit: CVA RULE OUT Diagnosis Discharge Diagnosis (1) Slurred speech: Status: Acute Code(s): R47.81 - Slurred speech Plan 60-year-old gentleman was found in a car by a bystander with altered mental status, disoriented and somnolence. Blood sugar was 121. As per nursing staff in ED, he told nurses that he was doing cocaine in the car. In ED, BP was elevated, 152/100, heart rate 106, tachypneic pulse ox 97% on room air. # Slurred speech/altered mental status probably due to substance use disorder: Patient is being admitted in PCU on telemetry. Urine tox was positive for fentanyl, and crack cocaine therefore altered mental status due to toxic encephalopathy/acute intoxication. Patient was very agitated and combative in the ED. Patient on the floor was oriented x 3, awake alert told me his correct age, date of and month. He was well-organized and top sober and coherent. Denies suicidal risk attempt or ideation. He denies homicidal risk and intent. Acute stroke was ruled out by MRI which showed no hemorrhage/midline shift or mass effect or no acute brain abnormality. NIH stroke scale discontinued. Telemetry shows normal sinus rhythm -CT head w/ no acute process -CTA head and neck no acute process. 2D echo shows mild concentric LVH EF 40%, stage III diastolic dysfunction with mild to moderate global hypokinesis left ventricle suggestive of chronic mild HFrEF and HFpEF. Advised follow-up PCP. Hemoglobin A1c 6.1 H, suggestive of good control of diabetes mellitus. Fasting profile triglycerides 132, Cholesterol 109, LDL Cholesterol, Calc 44, VLDL Cholesterol 26, HDL Cholesterol 39 L, Cholesterol/HDL Ratio 2.83, shows low HDL. TSH 0.942, normal. #ELBERT - Patient states he does not use his CPAP or BiPAP -Head of bed elevated to least 30 degrees - Advised follow-up PCP as you will need outpatient polysomnography. # Polysubstance abuse and agitation -Patient positive for fentanyl and cocaine, did endorse using cocaine to staff in the ED -After hospitalist called to admit for stroke rule out patient became agitated assisting on leaving, ED physician ace slipped patient - Patient said he was dosed of the drugs but routinely does not use it. #Hypothyroidism -Continue Synthroid #Hypertension - Medications for hypertension as per stroke protocol #Type 2 diabetes mellitus -Glucose checks and sliding scale insulin -Does not appear to be on any home hypoglycemics however patient unable to give any updated medications so unclear : As mentioned above A1c 6.1% #Morbid obesity -BMI documented as 44.5 kg/m? at time of admission -Complicates treatment, prognosis, outcomes -Recommend weight loss and lifestyle changes #DVT ppx: Lovenox SQ twice daily Patient is alert awake oriented x 3. Was seen and evaluated in the presence of patient's RN, Tanya. Denies suicidal ideation or risk or attempt or homicidal ideation. Therefore patient is discharged. No need for psychiatric inpatient placement. Denies psychiatric chronic disease including his girlfriend via Medications at Discharge Home Medications aspirin 325 mg tablet 325 mg PO DAILY@0800 heart health 10/15/14 levothyroxine 125 mcg tablet 125 mcg PO DAILY thyroid 10/15/14 metoprolol tartrate 50 mg tablet 50 mg PO DAILY 10/15/14 doxycycline hyclate 100 mg capsule 100 mg PO BID ##28 01/12/17 albuterol sulfate 90 mcg/actuation aerosol inhaler (Ventolin HFA) 2 puff inhalation Q4H PRN PRN Wheezing ##1 08/31/24 furosemide 20 mg tablet (Lasix) 20 mg PO DAILY diuretic 30 days #30 tabs 12/23/24 diphenhydramine HCl 25 mg tablet (Benadryl Allergy) 25 mg PO TID PRN itching #30 tabs 01/06/25 loratadine 10 mg tablet 10 mg PO DAILY allergies #30 tabs 01/06/25 dapagliflozin propanediol 10 mg tablet (Farxiga) 10 mg PO DAILY diabetes 06/09/25 dulaglutide 4.5 mg/0.5 mL subcutaneous pen injector (Trulicity) 4.5 mg subcut QWEEK diabetes 06/09/25 ezetimibe 10 mg tablet 10 mg PO DAILY cholesterol 06/09/25 furosemide 40 mg tablet 40 mg PO DAILY diuretic 06/09/25 insulin glargine 100 unit/mL (3 mL) subcutaneous pen (Lantus Solostar U-100 Insulin) 20 unit subcut QHS diabetes 06/09/25 metformin 1,000 mg tablet 1,000 mg PO BID diabetes 06/09/25 metoprolol succinate 25 mg tablet,extended release 24 hr 25 mg PO DAILY heart 06/09/25 mirtazapine 15 mg tablet 22.5 mg PO QHS mental health 06/09/25 spironolactone 25 mg tablet 25 mg PO DAILY diuretic 06/09/25 trazodone 100 mg tablet 100 mg PO QHS sleep 06/09/25 Hospital Course Summary of Care Provided Hospital Course: Laboratory Results 06/08/25 14:14: Sodium 138, Potassium 3.5, Chloride 99, Carbon Dioxide 20.7 L, Anion Gap 19 H, BUN 18, Creatinine 1.28 H, Estim Creat Clear Calc 77.20, Est GFR (MDRD) Non-Af 63, BUN/Creatinine Ratio 14.3, Glucose 107 H, Calcium 9.6, Total Bilirubin 0.85, AST 36, ALT 24, Alkaline Phosphatase 50, Total Protein 7.3, Albumin 4.2, Globulin 3.1, Albumin/Globulin Ratio 1.3 06/08/25 14:36: Urine Opiates Screen NEGATIVE, U Buprenorphine Qual NEGATIVE, Ur Oxycodone Screen NEGATIVE, Urine Methadone Screen NEGATIVE, Urine Fentanyl Screen PRESUMPTIVE POSITIVE, Ur Barbiturates Screen NEGATIVE, Ur Phencyclidine Scrn NEGATIVE, Ur Amphetamines Screen NEGATIVE, U Benzodiazepines Scrn NEGATIVE, Urine Cocaine Screen PRESUMPTIVE POSITIVE, U Cannabinoids Screen NEGATIVE 06/08/25 15:10: WBC 10.8, RBC 5.19, Hgb 17.0 H, Hct 48.2, MCV 92.9, MCH 32.8 H, MCHC 35.3, RDW Std Deviation 41.3, RDW Coeff of Amanda 11.9, Plt Count 256, MPV 10.2, Immature Gran % (Auto) 0.400, Neut % (Auto) 59.3, Lymph % (Auto) 25.1, Garvin % (Auto) 10.4 H, Eos % (Auto) 4.7, Baso % (Auto) 0.1, Absolute Neuts (auto) 6.4, Absolute Lymphs (auto) 2.70, Nucleated RBC % 0 06/09/25 05:15: WBC 10.3, RBC 5.27, Hgb 17.3 H, Hct 50.2, MCV 95.3 H, MCH 32.8 H, MCHC 34.5, RDW Std Deviation 41.9, RDW Coeff of Amanda 12.0, Plt Count 242, MPV 10.0, Immature Gran % (Auto) 0.300, Neut % (Auto) 50.3, Lymph % (Auto) 29.8, Garvin % (Auto) 10.6 H, Eos % (Auto) 8.7 H, Baso % (Auto) 0.3, Absolute Neuts (auto) 5.2, Absolute Lymphs (auto) 3.05, Nucleated RBC % 0, Sodium 140, Potassium 3.8, Chloride 101, Carbon Dioxide 26.0, Anion Gap 13, BUN 18, Creatinine 1.49 H, Estim Creat Clear Calc 64.59, Est GFR (MDRD) Non-Af 53 L, BUN/Creatinine Ratio 12.1, Glucose 110 H, Hemoglobin A1c 6.1 H, Calcium 9.1, Triglycerides 132, Cholesterol 109, LDL Cholesterol, Calc 44, VLDL Cholesterol 26, HDL Cholesterol 39 L, Cholesterol/HDL Ratio 2.83, TSH 0.942 06/09/25 13:41: POC Glucose 119 H Clinical Impression(s) from Imaging Studies Brain CT 06/08/25 15:30 IMPRESSION: No acute intracranial abnormality. Reading Location: [facility] Head/Neck CTA 06/08/25 15:30 IMPRESSION: 1. No hemodynamically significant stenosis within the head or neck. No evidence of intracranial aneurysm. 2. Enlarged left thyroid lobe with multiple calcifications. Reading Location: [id number] Chest X-Ray 06/08/25 15:40 IMPRESSION: Bibasilar atelectasis. No other acute cardiopulmonary abnormality. Reading Location: [id number] Echocardiogram 06/08/25 19:30 Interpretation Summary Normal LV size. Mild concentric left ventricular hypertrophy. The left ventricular ejection fraction is 40 %. There is mild to moderate global hypokinesis of the left ventricle. Stage 3 diastolic dysfunction. Contrast injection was performed. Ordering Physician: Ca Newman Referring Physician: PATRICIA PCP Performed By: eMlvi Marsh, BOBCS, RVT X-Ray 06/09/25 10:03 IMPRESSION: 1. No acute abdominopelvic process. 2. No radiopaque foreign body seen. Reading Location: [facility] Brain MRI 06/09/25 19:30 IMPRESSION: No acute brain abnormalities. Reading Location: [facility] Physical Exam Narrative Seen and examined. Patient is quite, sober, coherent. Physical exam General: Alert, Oriented x3, Cooperative. BMI 42.4 kg/m? HEENT: Atraumatic, PERRLA, EOMI, Normocephalic. Oral: No Gingival or Mucosal Lesions/ Ulcerations Neck: Supple, No JVD, Negative Carotid Bruits Chest wall/Lungs: Air entry diminished in bilateral lung bases. No crepitation/rhonchi Cardiovascular: Regular rate and rhythm, Normal S1,S2, No M/G/R Abdomen: Bowel Sounds Present, Soft, Non Tender, Non-Distended : No dysuria. No renal angle tenderness. No suprapubic tenderness. Extremities: No edema, Capillary Refill Less than 3 Seconds Skin: No rashes, No breakdown Musculoskeletal: No Tenderness to Palpation of Joints or Extremities. ROM fully intact. Neurological: Cranial nerves II-XII grossly intact, DTR 2+/4. No acute focal neurological deficit. Psych/Mental Status: Flat affect Weight / BMI Weight Weight: 271 lb 0.016 oz Body Mass Index (BMI) 42.4 ABG / Lab / Microbiology Data 06/09/25 05:15 06/09/25 05:15 Laboratory: Laboratory Results - last 24 hr 06/08/25 14:14: Sodium 138, Potassium 3.5, Chloride 99, Carbon Dioxide 20.7 L, Anion Gap 19 H, BUN 18, Creatinine 1.28 H, Estim Creat Clear Calc 77.20, Est GFR (MDRD) Non-Af 63, BUN/Creatinine Ratio 14.3, Glucose 107 H, Calcium 9.6, Total Bilirubin 0.85, AST 36, ALT 24, Alkaline Phosphatase 50, Total Protein 7.3, Albumin 4.2, Globulin 3.1, Albumin/Globulin Ratio 1.3 06/08/25 14:36: Urine RBC 0 SEEN, Urine WBC 0 SEEN, Ur Squamous Epith Cells 0 SEEN, Urine Bacteria 0 SEEN, Urine Mucus 0 SEEN, Urine Opiates Screen NEGATIVE, U Buprenorphine Qual NEGATIVE, Ur Oxycodone Screen NEGATIVE, Urine Methadone Screen NEGATIVE, Urine Fentanyl Screen PRESUMPTIVE POSITIVE, Ur Barbiturates Screen NEGATIVE, Ur Phencyclidine Scrn NEGATIVE, Ur Amphetamines Screen NEGATIVE, U Benzodiazepines Scrn NEGATIVE, Urine Cocaine Screen PRESUMPTIVE POSITIVE, U Cannabinoids Screen NEGATIVE 06/08/25 15:10: WBC 10.8, RBC 5.19, Hgb 17.0 H, Hct 48.2, MCV 92.9, MCH 32.8 H, MCHC 35.3, RDW Std Deviation 41.3, RDW Coeff of Amanda 11.9, Plt Count 256, MPV 10.2, Immature Gran % (Auto) 0.400, Neut % (Auto) 59.3, Lymph % (Auto) 25.1, Garvin % (Auto) 10.4 H, Eos % (Auto) 4.7, Baso % (Auto) 0.1, Absolute Neuts (auto) 6.4, Absolute Lymphs (auto) 2.70, Nucleated RBC % 0 06/09/25 05:15: WBC 10.3, RBC 5.27, Hgb 17.3 H, Hct 50.2, MCV 95.3 H, MCH 32.8 H, MCHC 34.5, RDW Std Deviation 41.9, RDW Coeff of Amanda 12.0, Plt Count 242, MPV 10.0, Immature Gran % (Auto) 0.300, Neut % (Auto) 50.3, Lymph % (Auto) 29.8, Garvin % (Auto) 10.6 H, Eos % (Auto) 8.7 H, Baso % (Auto) 0.3, Absolute Neuts (auto) 5.2, Absolute Lymphs (auto) 3.05, Nucleated RBC % 0, Sodium 140, Potassium 3.8, Chloride 101, Carbon Dioxide 26.0, Anion Gap 13, BUN 18, Creatinine 1.49 H, Estim Creat Clear Calc 64.59, Est GFR (MDRD) Non-Af 53 L, BUN/Creatinine Ratio 12.1, Glucose 110 H, Hemoglobin A1c 6.1 H, Calcium 9.1, Triglycerides 132, Cholesterol 109, LDL Cholesterol, Calc 44, VLDL Cholesterol 26, HDL Cholesterol 39 L, Cholesterol/HDL Ratio 2.83, TSH 0.942 06/09/25 13:41: POC Glucose 119 H Radiography Diagnostic Testing: Radiology Impression Brain CT 06/08/25 15:30 IMPRESSION: No acute intracranial abnormality. Reading Location: [facility] Head/Neck CTA 06/08/25 15:30 IMPRESSION: 1. No hemodynamically significant stenosis within the head or neck. No evidence of intracranial aneurysm. 2. Enlarged left thyroid lobe with multiple calcifications. Reading Location: [facility] Chest X-Ray 06/08/25 15:40 IMPRESSION: Bibasilar atelectasis. No other acute cardiopulmonary abnormality. Reading Location: [id number] Echocardiogram 06/08/25 19:30 Interpretation Summary Normal LV size. Mild concentric left ventricular hypertrophy. The left ventricular ejection fraction is 40 %. There is mild to moderate global hypokinesis of the left ventricle. Stage 3 diastolic dysfunction. Contrast injection was performed. Ordering Physician: Ca Newman Referring Physician: PATRICIA PCP Performed By: Melvi Marsh, IVAN, RVT X-Ray 06/09/25 10:03 IMPRESSION: 1. No acute abdominopelvic process. 2. No radiopaque foreign body seen. Reading Location: [facility] Brain MRI 06/09/25 19:30 IMPRESSION: No acute brain abnormalities. Reading Location: [facility] D/C Instructions Weight Bearing Status: Weight bearing as tolerated Call your doctor if you observe: Fever of 101 or Higher, Coldness, Increased Pain, Numbness or Tingling, Change in Color, Inability to urinate, Inability to have a bowel movement, Shortness of breath, Dizziness, Fainting spells, Swelling in the ankles, Chest pain, Prolonged hiccupping, Increased palpitations (irregular heartbeat) and Calf discomfort DC O2, CPAP, BIPAP Needs Home O2 Discharge instructions: No When: IN 2 WEEKS Meaningful Use Info Meaningful Use Meaningful Use Diagnoses (Choose all that apply): None applicable Discharge Plan Admission Admit Date/Time: 06/08/25 18:58 Attending Provider: Byron Frye Primary Care Provider: Care Physician,No Primary Consulting Providers: Chase Vyas; Tess Ramirez; Miriam Valdes; Libby Ramires; Adeola Cohn; Umesh Azar; Candace Alvarado; Umair Rico; Avinash Rivas; Martin Carolina; Colleen Coley; Rebecca Sullivan; Srinivas Fiore; Nery Kowalski; Manish Perdomo; Raina Hernandez; Jean Do; Rochelle Olivarez; Terry Muñiz; Karen Causey; HannaDina barakat; Ca Newman Discharge Orders/Prescriptions Prescriptions: No Action aspirin 325 MG tablet 325 mg PO DAILY@0800 levothyroxine 125 MCG tablet 125 mcg PO DAILY metoprolol tartrate 50 MG tablet 50 mg PO DAILY doxycycline hyclate 100 MG capsule 100 mg PO BID Qty: 28 0RF furosemide [Lasix] 20 mg tablet 20 mg PO DAILY 30 Days Qty: 30 0RF albuterol sulfate [Ventolin HFA] 90 mcg/actuation HFA aerosol inhaler 2 puff inhalation Q4H PRN PRN (Reason: Wheezing) Qty: 1 0RF diphenhydramine HCl [Benadryl Allergy] 25 mg tablet 25 mg PO TID PRN (Reason: itching) Qty: 30 0RF loratadine 10 mg tablet 10 mg PO DAILY Qty: 30 0RF furosemide 40 mg tablet 40 mg PO DAILY metoprolol succinate 25 mg tablet extended release 24 hr 25 mg PO DAILY Patient Comments: [NO ORIGINAL SIG] dapagliflozin propanediol [Farxiga] 10 mg tablet 10 mg PO DAILY Trulicity 4.5 mg/0.5 mL pen injector 4.5 mg subcut QWEEK spironolactone 25 mg tablet 25 mg PO DAILY trazodone 100 mg tablet 100 mg PO QHS metformin 1,000 mg tablet 1,000 mg PO BID mirtazapine 15 mg tablet 22.5 mg PO QHS ezetimibe 10 mg tablet 10 mg PO DAILY insulin glargine [Lantus Solostar U-100 Insulin] 100 unit/mL (3 mL) insulin pen 20 unit subcut QHS Referrals / Follow Up: Care Physician,No Primary [Primary Care Provider, Medical] - Within 2 Weeks Jorge Gallo NP, [employer]ATOR-[facility] [Med Staff - Adv Practice Prof, Cardiology] - Within 1 Month Referral Note: For abnormal echo Disposition Disposition (needs filled in before D/C Order can be placed): Home, Self Care Charges/Coding Visit Charges Inpatient E&M: 60610 Disch Hosp >30min
--- NOTE | 2025-06-09 16:08 | PHA.DC.MR.R ---
Pharmacy [facility] Reconciliation Pharmacy Service has performed discharge medication reconciliation for this patient. The patient's discharge medication list was reviewed for discrepancies and discrepancies were resolved. Medications at Discharge Home Medications aspirin 325 mg tablet 325 mg PO DAILY@0800 heart health 10/15/14 levothyroxine 125 mcg tablet 125 mcg PO DAILY thyroid 10/15/14 metoprolol tartrate 50 mg tablet 50 mg PO DAILY 10/15/14 albuterol sulfate 90 mcg/actuation aerosol inhaler (Ventolin HFA) 2 puff inhalation Q4H PRN PRN Wheezing ##1 08/31/24 furosemide 20 mg tablet (Lasix) 20 mg PO DAILY diuretic 30 days #30 tabs 12/23/24 diphenhydramine HCl 25 mg tablet (Benadryl Allergy) 25 mg PO TID PRN itching #30 tabs 01/06/25 loratadine 10 mg tablet 10 mg PO DAILY allergies #30 tabs 01/06/25 dapagliflozin propanediol 10 mg tablet (Farxiga) 10 mg PO DAILY diabetes 06/09/25 doxycycline hyclate 100 mg capsule 100 mg PO BID 7 days #14 caps 06/09/25 dulaglutide 4.5 mg/0.5 mL subcutaneous pen injector (Trulicity) 4.5 mg subcut QWEEK diabetes 06/09/25 ezetimibe 10 mg tablet 10 mg PO DAILY cholesterol 06/09/25 furosemide 40 mg tablet 40 mg PO DAILY diuretic 06/09/25 insulin glargine 100 unit/mL (3 mL) subcutaneous pen (Lantus Solostar U-100 Insulin) 20 unit subcut QHS diabetes 06/09/25 metformin 1,000 mg tablet 1,000 mg PO BID diabetes 06/09/25 metoprolol succinate 25 mg tablet,extended release 24 hr 25 mg PO DAILY heart 06/09/25 mirtazapine 15 mg tablet 22.5 mg PO QHS mental health 06/09/25 spironolactone 25 mg tablet 25 mg PO DAILY diuretic 06/09/25 trazodone 100 mg tablet 100 mg PO QHS sleep 06/09/25
[2025-06-09 16:15] VITALS: BMI 42.4
--- NOTE | 2025-06-09 19:30 | MRI_ITS ---
PROCEDURE: BRAIN WITHOUT CONTRAST 06/09/2025 REASON FOR EXAM: SLURRED SPEECH, EXPRESSIVE APHASIA? TECHNIQUE: Procedure Code: MRIBR Modality: MR Procedure: BRAIN WITHOUT CONTRAST Multiplanar and multisequence images were obtained. COMPARISON: CT head 06/08/2025. FINDINGS: Brain: No restricted diffusion. No hemorrhage. No mass-effect or midline shift. The orbits are within normal limits. Ventricles: No ventriculomegaly. Major Intracranial Vessels: Sinuses: Retrolisthesis in the left maxillary sinus. Mucosal thickening of the ethmoidal cells. Mastoids: Clear. MRI/Brain without Contrast IMPRESSION: No acute brain abnormalities. Reading Location: [id number]
== END 2025-06-09 16:11 | disposition home or self-care (01) ==
LOC: ED 17:25 → PCU 19:03
PROVIDERS: Admitting Provider Internal Medicine; Emergency Provider Emergency Medicine; Visit Provider Internal Medicine
DX: R47.81 Slurred speech (principal); I11.0 Hypertensive heart disease with heart failure; I50.9 Heart failure, unspecified; Z68.41 Body mass index [BMI] 40.0-44.9, adult; E66.01 Morbid (severe) obesity due to excess calories; E11.9 Type 2 diabetes mellitus without complications; Z79.890 Hormone replacement therapy; R47.01 Aphasia; F17.210 Nicotine dependence, cigarettes, uncomplicated; F14.90 Cocaine use, unspecified, uncomplicated; J98.11 Atelectasis; G47.33 Obstructive sleep apnea (adult) (pediatric); E03.9 Hypothyroidism, unspecified; Z79.899 Other long term (current) drug therapy; Z79.82 Long term (current) use of aspirin; R41.82 Altered mental status, unspecified; I44.7 Left bundle-branch block, unspecified; R94.31 Abnormal electrocardiogram [ECG] [EKG]; I44.0 Atrioventricular block, first degree; I49.1 Atrial premature depolarization
CPT/HCPCS: 36415; 70450; 70496; 70498; 70551; 71046; 74018; 80048; 80053; 80061; 80307; 81001; 82077; 82962; 83036; 83605; 84443; 84484; 85025; 93005; 93306; 94762; 96360; 96361; 96372; 97161; 99221; 99285; Q9957; Q9967; A4216; C8929; G0378